=== PATIENT | female | born 1960 | race Hispanic/Latino ===

== ENCOUNTER 2017-03-10 23:47 | Inpatient (IN) | payer BC ==
[~2017-03-10] VITALS: Ht 152.4 cm; Wt 83.5 kg
[~2017-03-10 23:47] MED LIST: ACETAMINOPHEN325 M1 PO; AMOX TR-K CLV1 EAC2 PO; ATORVASTATIN CA20 MG PO; BACTRIM DS TAB1 EACH PO; CEFDINIR300 MG; CEFDINIR300 MG PO; CIPRO500 MG PO; CRANBERRY TABL1 EACH PO; DIFLUCAN100 MG PO; FENOFIBRATE145 MG; FENOFIBRATE145 MG PO; FLAGYL250 MG PO; FLUCONAZOLE100 MG PO; LEVAQUIN500 MG PO; LISINOPRIL; LISINOPRIL2.5 MG PO; LISINOPRIL20 MG PO; MERREM500 MG IV; METFORMIN HCL500 MG PO; TRAZODONE HCL100 MG PO; TYLENOL # 31 EA PO; ULTRAM50 MG PO; VITAMIN B-121000 MC2; VITAMIN B-121000 MCG PO; VITAMIN D350000 UNIT PO
[2017-03-11] VITALS (8 sets, daily range): BP systolic 111–142; BP diastolic 73–76
[2017-03-11] MEDS ORDERED: SODIUM CHLORIDE 0.9% 1000ML 1,000 ML IV STA (00:08)
[2017-03-11] MEDS ORDERED: PANTOPRAZOLE 40 MG 10ML VIAL IV STA (00:08)
[2017-03-11] MEDS ORDERED: ONDANSETRON HCL INJ 2 MG/ML VIAL IV STA (00:08)
[2017-03-11] MEDS ORDERED: MORPHINE SULFATE 2 MG/ML SYR IV STA (00:08)
--- NOTE | 2017-03-11 01:31 | Diagnostic Imaging Report ---
EXAM: CT ABDOMEN AND PELVIS without IV CONTRAST ORDER DATE: 03/11/2017 12:14 AM Time stamp on Exam: 0058 hours INDICATION: Pain in right kidney status post nephrostomy, decreased urine output COMPARISON: CT of the abdomen and pelvis July 24, 2016 TECHNIQUE: The abdomen and pelvis were scanned using a multidetector helical scanner. Coronal and sagittal reformations were obtained. Renal stone protocol performed. IV Contrast: None Oral Contrast: None CTDIvol has been reviewed. It is below the limits set by the Radiation Protocol Committee (RPC). FINDINGS: LOWER THORAX: No consolidations LIVER: No masses BILIARY: Gallstone in an otherwise normal gallbladder. No ductal dilation. SPLEEN: Normal PANCREAS: Normal ADRENALS: Normal RIGHT KIDNEY: Percutaneously nephrostomy tube in place with distal end coiled within the pelvis. Severe hydronephrosis. Mild perinephric fat stranding. LEFT KIDNEY: Mild hydroureteronephrosis of the left kidney, similar to prior exam. Punctate nonobstructing stones in the inferior calyx. GI TRACT: No wall thickening or obstruction. Normal appendix. VESSELS: Minimal atherosclerotic changes of the abdominal aorta without aneurysm. PERITONEUM/RETROPERITONEUM: No free air or fluid LYMPH NODES: No lymphadenopathy REPRODUCTIVE ORGANS: The uterus is small. No adnexal masses. 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 BLADDER: The bladder is small and irregular, possibly due to postradiation changes. SOFT TISSUES: Normal BONES: No suspicious bone lesions. IMPRESSION: Severe right hydronephrosis with percutaneous nephrostomy tube in place, consistent with tube obstruction. Signed by: Dr. Rita Campos M.D. on 03/11/2017 1:28 AM
[2017-03-11 01:35] LABS: BILIRUBIN,URINE NEGATIVE (NEGATIVE); KETONES,URINE NEGATIVE (NEGATIVE); LEUKOCYTE ESTERASE ,URINE 2+ (NEGATIVE); NITRITE,URINE NEGATIVE (NEGATIVE); URINE UROBILINOGEN 0.2 mg/dL (0.2 - 1)
[2017-03-11 01:39] LABS: CLARITY,URINE CLOUDY (CLEAR); COLOR,URINE YELLOW (YELLOW); PROTEIN,URINE DIPSTICK 2+ (NEGATIVE)
[2017-03-11 01:52] LABS: AMORPHOUS SEDIMENT,URINE FEW (FEW); BACTERIA,URINE MODERATE /HPF; CALCIUM OXALATE CRYSTALS,UR RARE (FEW); EPITHELIAL CELLS,URINE RARE /LPF; RBC,URINE >50 /HPF (0-5); WBC,URINE (MAN) >50 /HPF (0-5)
[2017-03-11 02:06] LABS: BASOPHILS # (AUTO) 0.1 (0.0-0.1); BASOPHILS % 0.4 % (0.0-1.0); EOSINOPHILS # (AUTO) 0.1 (0.0-0.4); EOSINOPHILS % 0.4 % (0.0-6.0); HEMATOCRIT 38.4 % (34.2-44.1); HEMOGLOBIN 11.9 g/dL (12.0-16.0); LYMPHOCYTES # (AUTO) 1.8 (1.0-3.2); LYMPHOCYTES % 10.9 % (18.0-39.1); MEAN CORPUSCULAR HEMOGLOBIN 25.7 pg (28-32); MEAN CORPUSCULAR VOLUME 82.9 fL (81-99); MONOCYTES # (AUTO) 0.8 (0.2-0.8); MONOCYTES % 4.8 % (4.4-11.3); NEUTROPHILS # (AUTO) 13.3 (2.1-6.9); PLATELET COUNT 319 x10e3/uL (140-360); RED BLOOD COUNT 4.63 x10e6/uL (3.6-5.1); RED CELL DISTRIBUTION WIDTH 15.4 % (11.7-14.4)
[2017-03-11 02:23] LABS: ALANINE AMINOTRANSFERASE 46 IU/L (0-55); ALBUMIN 3.7 g/dL (3.5-5.0); ALBUMIN/GLOBULIN RATIO 0.7 (0.8-2.0); ALKALINE PHOSPHATASE 105 IU/L (40-150); ANION GAP 14.6 mmol/L (8-16); BLOOD UREA NITROGEN 19 mg/dL (7-26); BUN/CREATININE RATIO 22 (6-25); CALCIUM 9.2 mg/dL (8.4-10.2); CARBON DIOXIDE 20 mmol/L (22-29); CHLORIDE 107 mmol/L (98-107); CREATININE, SERUM 0.88 mg/dL (0.57-1.11); EST GLOMERULAR FILTRATION RATE > 60 ML/MIN (60-); GLUCOSE 166 mg/dL (74-118); MAGNESIUM 1.8 MG/DL (1.3-2.1); POTASSIUM 3.6 mmol/L (3.5-5.1); SODIUM 138 mmol/L (136-145)
[2017-03-11] MEDS ORDERED: MEROPENEM 1GRAM 1 GM in SODIUM CHLORIDE 0.9% 100 ML 100 ML IV SCH (03:00)
[2017-03-11] MEDS ORDERED: MEROPENEM 1 GM VIAL ONE (03:23)
[2017-03-11] MEDS ORDERED: SODIUM CHLORIDE 0.9% 50ML 100 ML ONE (03:24)
[2017-03-11 04:07] LABS: BILIRUBIN,URINE NEGATIVE (NEGATIVE); KETONES,URINE NEGATIVE (NEGATIVE); LEUKOCYTE ESTERASE ,URINE 2+ (NEGATIVE); NITRITE,URINE NEGATIVE (NEGATIVE); URINE UROBILINOGEN 0.2 mg/dL (0.2 - 1)
[2017-03-11 04:08] LABS: CLARITY,URINE CLOUDY (CLEAR); COLOR,URINE YELLOW (YELLOW); PROTEIN,URINE DIPSTICK 2+ (NEGATIVE)
[2017-03-11 04:15] LABS: BACTERIA,URINE MODERATE /HPF; EPITHELIAL CELLS,URINE RARE /LPF; RBC,URINE >50 /HPF (0-5); WBC,URINE (MAN) >50 /HPF (0-5)
[2017-03-11] MEDS: SODIUM CHLORIDE 0.9% 1000ML 1,000 ML IV SCH ×2 (06:35→17:58)
[2017-03-11] MEDS: ONDANSETRON HCL INJ 2 MG/ML VIAL IV PRN ×3 (08:30→19:21)
[2017-03-11] MEDS: MORPHINE SULFATE 2 MG/ML SYR IV PRN ×3 (08:30→19:21)
[2017-03-11] MEDS ORDERED: LIDOCAINE HCL 2% LOCAL 20 ML VIAL ONE (13:14)
[2017-03-11] MEDS ORDERED: SODIUM CHLORIDE 0.9% 500ML 1,000 ML ONE (13:15)
[2017-03-11] MEDS ORDERED: MIDAZOLAM HCL 2 MG/2 ML VIAL ONE (13:27)
[2017-03-11] MEDS ORDERED: FENTANYL CITRATE/PF 100MCG/2 ML INJ ONE (13:27)
[2017-03-11] MEDS ORDERED: IOPAMIDOL 300MG/ML 50ML INFUS..BTL IV ONE (13:32)
--- NOTE | 2017-03-11 14:40 | Diagnostic Imaging Report ---
Nephrostomy catheter evaluation and subsequent exchange, 03/11/2017 Pre-Procedure Diagnosis: Cervical cancer status post radiation therapy with right ureteral stenosis. Post-procedure Diagnosis:Cervical cancer status post radiation therapy with right ureteral stenosis Cream Buyer: Eleni Thomas Insurance Salesperson: None Sedation: Moderate sedation was provided with intravenous fentanyl and Versed. Heart rate, rhythm and oxygen saturation were monitored and real-time by a dedicated interventional radiology nurse under my direct supervision. Blood pressure was monitored in 5 minute increments. 1% lidocaine was used for local anesthesia. Total sedation time: 30 minutes. Radiation Dose <1: cGycm2 (Dose Area Product) Fluoroscopy time:1.2 minutes Estimate blood loss: None Blood administered: None Complications: None Implants/Grafts: 10-Lithuanian right nephrostomy Specimen: None Procedure: Informed consent was obtained and the patient positioned prone in the fluoroscopy suite. A timeout was performed. The indwelling right nephrostomy was prepped and draped in standard fashion. Diagnostic antegrade nephrostogram was performed given the long indwelling time of the previously placed for ostomy. See findings below. Attempts to remove the indwelling 8-Lithuanian nephrostomy over a Bentson and Glidewire were unsuccessful due to heavy encrustation. The catheter was subsequently severed and removed through an 11-Lithuanian peel-away sheath. A Bentson wire was advanced through the peel-away sheath and exchanged for a 10-Lithuanian nephrostomy. Contrast injection confirmed placement within the renal pelvis. At the end of the procedure the catheter was secured to the skin, connected to gravity drainage and a sterile dressing applied. The patient tolerated the procedure well and without immediate complication. Findings: Antegrade nephrostogram demonstrated mild hydronephrosis of the right collecting system and a patent, but heavily encrusted catheter requiring removal via peel away sheath. The distal ureter is narrowed consistent with stricture. Aggressive nephrostogram was not performed given superimposed infection. Impression: Successful right nephrostomy exchange. Distal right ureteral stricture Recommendations: Routine catheter exchange in 2 months given heavy encrustation. This report was generated with voice-recognition technology. Errors in manager operations and procurement can occur. Please interpret accordingly and contact a radiologist if there are any questions regarding the report. Signed by: Dr. Carlos Thomas M.D. on 03/11/2017 2:37 PM
[2017-03-11] MEDS ORDERED: MEROPENEM 1 GM VIAL IV SCH (15:00)
[2017-03-11] MEDS ORDERED: ACETAMINOPHEN/CODEINE 300MG - 30MG TAB PO PRN (16:15)
[2017-03-11] MEDS ORDERED: ACETAMINOPHEN 325 MG TAB PO PRN (16:15)
[2017-03-11] MEDS: MEROPENEM 500 MG VIAL IV SCH (21:25)
[2017-03-12] VITALS (8 sets, daily range): BP systolic 98–138; BP diastolic 63–88
[2017-03-12] MEDS: SODIUM CHLORIDE 0.9% 1000ML 1,000 ML IV SCH ×3 (03:33→22:05)
[2017-03-12] MEDS: MEROPENEM 500 MG VIAL IV SCH ×3 (04:20→21:55)
[2017-03-12 06:18] LABS: BASOPHILS % 0.4 % (0.0-1.0); EOSINOPHILS # (AUTO) 0.1 (0.0-0.4); EOSINOPHILS % 1.2 % (0.0-6.0); HEMATOCRIT 30.7 % (34.2-44.1); HEMOGLOBIN 9.5 g/dL (12.0-16.0); LYMPHOCYTES # (AUTO) 1.9 (1.0-3.2); LYMPHOCYTES % 22.5 % (18.0-39.1); MEAN CORPUSCULAR HEMOGLOBIN 25.7 pg (28-32); MEAN CORPUSCULAR HGB CONC 30.9 g/dL (31-35); MONOCYTES # (AUTO) 0.7 (0.2-0.8); MONOCYTES % 7.7 % (4.4-11.3); NEUTROPHILS # (AUTO) 5.8 (2.1-6.9); PLATELET COUNT 225 x10e3/uL (140-360); RED CELL DISTRIBUTION WIDTH 15.4 % (11.7-14.4)
[2017-03-12] MEDS: ONDANSETRON HCL INJ 2 MG/ML VIAL IV PRN (06:18)
[2017-03-12] MEDS: MORPHINE SULFATE 2 MG/ML SYR IV PRN (06:18)
[2017-03-12 06:40] LABS: ALANINE AMINOTRANSFERASE 28 IU/L (0-55); ALBUMIN 2.8 g/dL (3.5-5.0); ALBUMIN/GLOBULIN RATIO 0.7 (0.8-2.0); ALKALINE PHOSPHATASE 82 IU/L (40-150); ANION GAP 9.5 mmol/L (8-16); BLOOD UREA NITROGEN 11 mg/dL (7-26); BUN/CREATININE RATIO 15 (6-25); CALCIUM 8.3 mg/dL (8.4-10.2); CARBON DIOXIDE 24 mmol/L (22-29); CHLORIDE 111 mmol/L (98-107); CREATININE, SERUM 0.73 mg/dL (0.57-1.11); EST GLOMERULAR FILTRATION RATE > 60 ML/MIN (60-); GLUCOSE 139 mg/dL (74-118); POTASSIUM 3.5 mmol/L (3.5-5.1); SODIUM 141 mmol/L (136-145)
[2017-03-12] MEDS: LISINOPRIL 2.5 MG TAB PO SCH (08:37)
--- NOTE | 2017-03-12 09:36 | Diagnostic Imaging Report ---
Nephrostomy catheter evaluation and subsequent exchange, 03/11/2017 Pre-Procedure Diagnosis: Cervical cancer status post radiation therapy with right ureteral stenosis. Post-procedure Diagnosis:Cervical cancer status post radiation therapy with right ureteral stenosis Optical Instrument Assembly Supervisor: Eleni Thomas Building Insulation Installer: None Sedation: Moderate sedation was provided with intravenous fentanyl and Versed. Heart rate, rhythm and oxygen saturation were monitored and real-time by a dedicated interventional radiology nurse under my direct supervision. Blood pressure was monitored in 5 minute increments. 1% lidocaine was used for local anesthesia. Total sedation time: 30 minutes. Radiation Dose <1: cGycm2 (Dose Area Product) Fluoroscopy time:1.2 minutes Estimate blood loss: None Blood administered: None Complications: None Implants/Grafts: 10-Irish right nephrostomy Specimen: None Procedure: Informed consent was obtained and the patient positioned prone in the fluoroscopy suite. A timeout was performed. The indwelling right nephrostomy was prepped and draped in standard fashion. Diagnostic antegrade nephrostogram was performed given the long indwelling time of the previously placed for ostomy. See findings below. Attempts to remove the indwelling 8-Irish nephrostomy over a Bentson and Glidewire were unsuccessful due to heavy encrustation. The catheter was subsequently severed and removed through an 11-Irish peel-away sheath. A Bentson wire was advanced through the peel-away sheath and exchanged for a 10-Irish nephrostomy. Contrast injection confirmed placement within the renal pelvis. At the end of the procedure the catheter was secured to the skin, connected to gravity drainage and a sterile dressing applied. The patient tolerated the procedure well and without immediate complication. Findings: Antegrade nephrostogram demonstrated mild hydronephrosis of the right collecting system and a patent, but heavily encrusted catheter requiring removal via peel away sheath. The distal ureter is narrowed consistent with stricture. Aggressive nephrostogram was not performed given superimposed infection. Impression: Successful right nephrostomy exchange. Distal right ureteral stricture Recommendations: Routine catheter exchange in 2 months given heavy encrustation. This report was generated with voice-recognition technology. Errors in stogy maker can occur. Please interpret accordingly and contact a radiologist if there are any questions regarding the report. Signed by: Dr. Carlos Thomas M.D. on 03/11/2017 2:37 PM
[2017-03-12] MEDS: FLUCONAZOLE 200 MG/100 ML 100 ML IV SCH (17:37)
[2017-03-13] VITALS (7 sets, daily range): BP systolic 107–161; BP diastolic 67–84
[2017-03-13] MEDS: MEROPENEM 500 MG VIAL IV SCH ×3 (05:46→20:38)
[2017-03-13] MEDS: SODIUM CHLORIDE 0.9% 1000ML 1,000 ML IV SCH ×2 (08:20→17:59)
[2017-03-13] MEDS: LISINOPRIL 2.5 MG TAB PO SCH (08:21)
[2017-03-13] MEDS: FLUCONAZOLE 200 MG/100 ML 100 ML IV SCH (16:41)
[2017-03-13] MEDS: MORPHINE SULFATE 2 MG/ML SYR IV PRN (23:47)
[2017-03-14] VITALS: BP 128/65
[2017-03-14] MEDS: SODIUM CHLORIDE 0.9% 1000ML 1,000 ML IV SCH (03:11)
[2017-03-14 04:00] VITALS: BP 106/57
[2017-03-14] MEDS: MEROPENEM 500 MG VIAL IV SCH (05:15)
[2017-03-14] MEDS ORDERED: CITRATE OF MAGNESIA 300ML BOTTLE PO ONE (06:15)
[2017-03-14] MEDS ORDERED: BISACODYL 5 MG TAB EC PO ONE (06:15)
[2017-03-14 06:44] LABS: BASOPHILS % 0.3 % (0.0-1.0); EOSINOPHILS # (AUTO) 0.1 (0.0-0.4); EOSINOPHILS % 1.6 % (0.0-6.0); MEAN CORPUSCULAR HEMOGLOBIN 25.9 pg (28-32); MEAN CORPUSCULAR HGB CONC 31.3 g/dL (31-35); MEAN CORPUSCULAR VOLUME 82.9 fL (81-99); MONOCYTES # (AUTO) 0.5 (0.2-0.8); MONOCYTES % 7.3 % (4.4-11.3); NEUTROPHILS # (AUTO) 4.3 (2.1-6.9); NEUTROPHILS % 61.4 % (38.7-80.0); PLATELET COUNT 238 x10e3/uL (140-360); RED BLOOD COUNT 3.86 x10e6/uL (3.6-5.1); RED CELL DISTRIBUTION WIDTH 15.3 % (11.7-14.4)
[2017-03-14 07:01] LABS: ANION GAP 10.1 mmol/L (8-16); BLOOD UREA NITROGEN 7 mg/dL (7-26); BUN/CREATININE RATIO 10 (6-25); CALCIUM 8.8 mg/dL (8.4-10.2); CARBON DIOXIDE 27 mmol/L (22-29); CHLORIDE 108 mmol/L (98-107); CREATININE, SERUM 0.68 mg/dL (0.57-1.11); EST GLOMERULAR FILTRATION RATE > 60 ML/MIN (60-); GLUCOSE 127 mg/dL (74-118); POTASSIUM 3.1 mmol/L (3.5-5.1); SODIUM 142 mmol/L (136-145)
[2017-03-14 08:00] VITALS: BP 135/90
[2017-03-14] MEDS: LISINOPRIL 2.5 MG TAB PO SCH (08:32)
[2017-03-14] MEDS ORDERED: POTASSIUM CHLORIDE 20 MEQ TAB CR PO ONE ×2 (10:00→12:00)
[2017-03-14 12:00] VITALS: BP 108/60
[2017-03-14] MEDS ORDERED: POTASSIUM CHLORIDE 10 MEQ TABCR PO ONE (13:30)
[2017-03-14] MEDS ORDERED: DIFLUCAN100 MG (13:50)
== END 2017-03-14 14:25 | disposition home or self-care (01) | DRG 638 ==
LOC: ER 23:47 → ERHOLD 03-11 06:30 → MED/SURG2 03-11 07:23
PROC: 0T25X0Z Change Drainage Device in Kidney, External Approach (ICD-10-PCS; principal; 2017-03-11)
DX: E11.9 Type 2 diabetes mellitus without complications (principal); N10 Acute pyelonephritis; B37.49 Other urogenital candidiasis; D64.9 Anemia, unspecified; Z85.41 Personal history of malignant neoplasm of cervix uteri; Z85.89 Personal history of malignant neoplasm of other organs and systems; N13.6 Pyonephrosis
CPT/HCPCS: 36415; 50435; 74176; 74470; 77001; 80048; 80053; 81001; 83735; 85025; 87086; 99284; J1450; J2001; J2185; J2250; J2270; J2405; J7030; J7040

== ENCOUNTER 2017-04-12 13:23 | Emergency (ER) | payer BC ==
[~2017-04-12] VITALS: Ht 152.4 cm; Wt 83.9 kg
[~2017-04-12 13:23] MED LIST changes: +DIFLUCAN100 MG
--- OUTSIDE RECORDS SUMMARY | 2017-04-12 13:26 | XMS REPORT ---
[facility] Address Unknown Phone Unavailable Care Team Providers Care Discharge Door Operator Name Role Phone VIKY MONTOYA Unavailable Unavailable CARLIE NIX Unavailable Unavailable Problems This patient has no known problems. Allergies, Adverse Reactions, Alerts This patient has no known allergies or adverse reactions. Medications This patient has no known medications. Results Test Description Test Time Test Comments Text Results Atomic Results Result Comments SPECIAL PROCEDURE IN FLOORWORKER LASTING [place] [address] Patient Name: WESLY HUTCHINSON MR #: [id number] : 1960 Age/Sex: 56/F Req #: [id number] Adm Physician: VIKY MONTOYA MD Ordered by: JARET ESPINOSA MD Report #: [id number] Location: MED/SURG2 Room/Bed: [facility] __ Procedure: [id number] IR/SPECIAL PROCEDURE IN FLOORWORKER LASTING Exam Date: Exam Time: REPORT STATUS: Signed Nephrostomy catheter evaluation and subsequent exchange, 03/11/2017 Pre- Procedure Diagnosis: Cervical cancer status post radiation therapy with right ureteral stenosis. Post-procedure Diagnosis:Cervical cancer status post radiation therapy with right ureteral stenosis Stave Grader: Eleni Thomas Casing In Line Setter: None Sedation: Moderate sedation was provided with intravenous fentanyl and Versed. Heart rate, rhythm and oxygen saturation were monitored and real-time by a dedicated interventional radiology nurse under my direct supervision. Blood pressure was monitored in 5 minute increments. 1% lidocaine was used for local anesthesia. Total sedation time: 30 minutes. Radiation Dose <1: cGycm2 (Dose Area Product) Fluoroscopy time:1.2 minutes Estimate blood loss: None Blood administered: None Complications: None Implants/Grafts: 10-Northern Irish right nephrostomy Specimen: None Procedure : Informed consent was obtained and the patient positioned prone in the fluoroscopy suite. A timeout was performed. The indwelling right nephrostomy was prepped and draped in standard fashion. Diagnostic antegrade nephrostogram was performed given the long indwelling time of the previously placed for ostomy. See findings below. Attempts to remove the indwelling 8- Northern Irish nephrostomy over a Bentson and Glidewire were unsuccessful due to heavy encrustation. The catheter was subsequently severed and removed through an 11-Northern Irish peel-away sheath. A Bentson wire was advanced through the peel- away sheath and exchanged for a 10-Northern Irish nephrostomy. Contrast injection confirmed placement within the renal pelvis. At the end of the procedure the catheter was secured to the skin, connected to gravity drainage and a sterile dressing applied. The patient tolerated the procedure well and without immediate complication. Findings: Antegrade nephrostogram demonstrated mild hydronephrosis of the right collecting system and a patent, but heavily encrusted catheter requiring removal via peel away sheath. The distal ureter is narrowed consistent with stricture. Aggressive nephrostogram was not performed given superimposed infection. Impression: Successful right nephrostomy exchange. Distal right ureteral stricture Recommendations: Routine catheter exchange in 2 months given heavy encrustation. This report was generated with voice-recognition technology. Errors in chip frier can occur. Please interpret accordingly and contact a radiologist if there are any questions regarding the report. Signed by: Dr. Carla Thomas M.D. on 03/11/2017 2:37 PM Dictated By: CARLA THOMAS MD 1 Transcribed By: DEYANIRA on 03/12/17931 COPY TO: JARET ESPINOSA MD IR CONSULT [place] [address] Patient Name: WESLY HUTCHINSON MR #: [id number] : 1960 Age/Sex: 56/F Re #: [id number] [facility] Physician: VIKY MONTOYA MD Ordered by: LIZ MUÑIZ MD Report #: [id number] Location: MED/SURG2 Room/Bed: [facility] _ Procedure: [id number] DX/IR CONSULT Exam Date: Exam Time: REPORT STATUS: Signed Nephrostomy catheter evaluation and subsequent exchange, 03/11/2017 Pre-Procedure Diagnosis: Cervical cancer status post radiation therapy with right ureteral stenosis. Post-procedure Diagnosis:Cervical cancer status post radiation therapy with right ureteral stenosis Stave Grader: Eleni Thomas Casing In Line Setter: None Sedation: Moderate sedation was provided with intravenous fentanyl and Versed. Heart rate, rhythm and oxygen saturation were monitored and real-time by a dedicated interventional radiology nurse under my direct supervision. Blood pressure was monitored in 5 minute increments. 1% lidocaine was used for local anesthesia. Total sedation time: 30 minutes. Radiation Dose <1: cGycm2 ( Dose Area Product) Fluoroscopy time:1.2 minutes Estimate blood loss: None Blood administered: None Complications: None Implants/Grafts: 10- Northern Irish right nephrostomy Specimen: None Procedure: Informed consent was obtained and the patient positioned prone in the fluoroscopy suite. A timeout was performed. The indwelling right nephrostomy was prepped and draped in standard fashion. Diagnostic antegrade nephrostogram was performed given the long indwelling time of the previously placed for ostomy. See findings below. Attempts to remove the indwelling 8-Northern Irish nephrostomy over a Bentson and Glidewire were unsuccessful due to heavy encrustation. The catheter was subsequently severed and removed through an 11-Northern Irish peel-away sheath. A Bentson wire was advanced through the peel-away sheath and exchanged for a 10-Northern Irish nephrostomy. Contrast injection confirmed placement within the renal pelvis. At the end of the procedure the catheter was secured to the skin, connected to gravity drainage and a sterile dressing applied. The patient tolerated the procedure well and without immediate complication. Findings: Antegrade nephrostogram demonstrated mild hydronephrosis of the right collecting system and a patent, but heavily encrusted catheter requiring removal via peel away sheath. The distal ureter is narrowed consistent with stricture. Aggressive nephrostogram was not performed given superimposed infection. Impression: Successful right nephrostomy exchange. Distal right ureteral stricture Recommendations: Routine catheter exchange in 2 months given heavy encrustation. This report was generated with voice-recognition technology. Errors in chip frier can occur. Please interpret accordingly and contact a radiologist if there are any questions regarding the report. Signed by: Dr. Carla Thomas M.D. on 03/11/2017 2:37 PM Dictated By: CARLA THOMAS MD 1 Transcribed By: DEYANIRA on 03/12/17931 COPY TO: LIZ MUÑIZ MD CT ABDOMEN/PELVIS WO [place] [address] Patient Name: WESLY HUTCHINSON MR #: [id number] : 1960 Age/Sex: 56/F Req #: [id number] Adm Physician: Ordered by: LIZ MUÑIZ MD Report #: [id number] Location: ER Room/Bed: Procedure: [id number] CT/CT ABDOMEN/PELVIS WO Exam Date: 03/11/17 Exam Time: 0056 REPORT STATUS: Signed EXAM: CT ABDOMEN AND PELVIS without IV CONTRAST ORDER DATE: 03/11/2017 12:14 AM Time stamp on Exam: 0058 hours INDICATION: Pain in right kidney status post nephrostomy, decreased urine output COMPARISON: CT of the abdomen and pelvis July 24, 2016 TECHNIQUE: The abdomen and pelvis were scanned using a multidetector helical scanner. Coronal and sagittal reformations were obtained. Renal stone protocol performed. IV Contrast: None Oral Contrast: None CTDIvol has been reviewed. It is below the limits set by the Radiation Protocol Committee (RPC) . FINDINGS: LOWER THORAX: No consolidations LIVER: No masses BILIARY: Gallstone in an otherwise normal gallbladder. No ductal dilation. SPLEEN: Normal PANCREAS: Normal ADRENALS: Normal RIGHT KIDNEY: Percutaneously nephrostomy tube in place with distal end coiled within the pelvis. Severe hydronephrosis. Mild perinephric fat stranding. LEFT KIDNEY : Mild hydroureteronephrosis of the left kidney, similar to prior exam. Punctate nonobstructing stones in the inferior calyx. GI TRACT: No wall thickening or obstruction. Normal appendix. VESSELS: Minimal atherosclerotic changes of the abdominal aorta without aneurysm. PERITONEUM/ RETROPERITONEUM: No free air or fluid LYMPH NODES: No lymphadenopathy REPRODUCTIVE ORGANS: The uterus is small. No adnexal masses. 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 BLADDER: The bladder is small and irregular, possibly due to postradiation changes. SOFT TISSUES: Normal BONES: No suspicious bone lesions. IMPRESSION: Severe right hydronephrosis with percutaneous nephrostomy tube in place, consistent with tube obstruction. Signed by: Dr. Wesly Campos M.D. on 03/11/2017 1:28 AM Dictated By : WESLY CAMPOS MD 7 Transcribed By: DEYANIRA on 03/11/17127 COPY TO: LIZ MUÑIZ MD SPECIAL PROCEDURE IN FLOORWORKER LASTING [place] [address] Patient Name: WESLY HUTCHINSON MR #: [id number] : 1960 Age/Sex: 56/F Req #: [id number] Adm Physician: CARLIE NIX MD Ordered by: JARET ESPINOSA MD Report #: [id number] Location: MED/SURG3 Room/Bed: [facility] __ Procedure: [id number] IR/SPECIAL PROCEDURE IN FLOORWORKER LASTING Exam Date: Exam Time: REPORT STATUS: Signed Date and Time: 12/31/2016 Procedure: Right percutaneous nephrostomy catheter exchange white sugar syrup operator: Dr. Sullivan Pre-operative diagnosis : Right sided pyelonephritis with indwelling nephrostomy. Post-operative diagnosis: Indwelling nephrostomy Conscious Sedation: Fentanyl 50 mcg. The patient's heart rate and pulse oximetry were continuously monitored by the interventional radiology nurse. Blood pressure was monitored at 5 minute intervals. Additional Medications: Lidocaine 1% for local anesthesia Fluoroscopy time: 1.0 minutes Dose-area Product: 22.7 cGycm2. Contrast used: 20 cc Isovue-300 Estimated blood loss: Minimal Specimens: 10 Northern Irish nephrostomy catheter, discarded Implants: New 10 Northern Irish nephrostomy catheter DISCUSSION: Informed consent for the procedure was obtained from the patient and documented in the medical record after discussion of risks and benefits. The patient was placed in the prone position on the fluoroscopic table. The right flank and existing percutaneous nephrostomy catheter were prepped and draped in standard sterile fashion. 1% lidocaine was infiltrated into the skin and subcutaneous tissues along the catheter for local anesthesia. The retention suture was cut. Dilute contrast material was injected through the catheter, confirming appropriate positioning within the collecting system. The catheter was then severed at the hub and a 0.0 3 5-in. wire was advanced through the catheter under fluoroscopic guidance. The catheter was removed over the wire and a new 10 Northern Irish locking loop percutaneous the prostate was advanced over the wire, which was then removed. The locking loop of the catheter was positioned in the renal pelvis with appropriate positioning confirmed by injection of dilute contrast material. The catheter was flushed with sterile saline and connected to gravity drainage. The catheter was secured to the skin with monofilament nylon suture and a sterile dressing was applied. FINDINGS: Mild right hydronephrosis. IMPRESSION: Successful exchange of a right percutaneous nephrostomy catheter (10 Northern Irish locking loop ) under fluoroscopic guidance. The patient should return to interventional radiology in 8 weeks for routine catheter exchange. Signed by: Dr. Osiel Sullivan M.D. on 01/02/2017 7:09 AM Dictated By: OSIEL SULLIVAN MD 8 Transcribed By: DEYANIRA on 01/02/17708 COPY TO: JARET ESPINOSA MD CHEST XRAY LINE PLACEMENT [place] [address] Patient Name: WESLY HUTCHINSON MR #: [id number] : 1960 Age/Sex: 56/F Req #: [id number] [facility] Physician: CARLIE NIX MD Ordered by: NAMITA EDMONDS MD Report #: [id number] Location: [place] [address] Room/Bed: [facility] Procedure: [id number] DX/CHEST XRAY LINE PLACEMENT Exam Date: 12/29/16 Exam Time: 1440 REPORT STATUS: Signed PROCEDURE: CHEST XRAY LINE PLACEMENT TECHNIQUE: Portable AP chest INDICATION: PICC placement COMPARISON: None. FINDINGS: See conclusion. CONCLUSION: 1. Right PICC terminating in the high SVC. 2. Low lung volume with left lower lobe medial subsegmental atelectasis. 3. Normal heart size and mediastinal contour for technique. 4. Crescentic skeleton. Dictated by: Carla Thomas M.D. on 12/29/2016 at 14:58 Electronically approved by: Carla Thomas M.D. on 12/29/2016 at 14:58 Dictated By: CARLA THOMAS MD 1458 Transcribed By: SUSHANT on 12/29/16 0976 COPY TO: NAMITA EDMONDS MD IR CONSULT [place] [address] Patient Name: WESLY HUTCHINSON MR #: [id number] : 1960 Age/Sex: 56/F Req #: [id number] Adm Physician: CARLIE NIX MD Ordered by: JARET ESPINOSA MD Report #: [id number] Location: MED/SURG2 Room/Bed: [facility] _ Procedure: [id number] DX/IR CONSULT Exam Date: Exam Time: REPORT STATUS: Signed Date and Time: 11/05/2016 Procedure: Replacement of right percutaneous nephrostomy catheter white sugar syrup operator: Dr. Sullivan Assistants: None Pre-operative diagnosis: Dislodged right percutaneous nephrostomy Post-operative diagnosis: Replaced right percutaneous nephrostomy Conscious Sedation: Versed 1 mg and Fentanyl 100 mcg. The patient's heart rate and pulse oximetry were continuously monitored by the interventional radiology nurse. Blood pressure was monitored at 5 minute intervals. Additional Medications: Lidocaine 1 % for local anesthesia Fluoroscopy time: 1.3 minutes Dose-area Product: 499.8 cGycm2. Contrast used: 20 cc Isovue-300 Estimated blood loss: Minimal Specimens: None Implants: 10 Northern Irish locking loop nephrostomy drainage catheter Blood products administered: None Complications: No immediate Condition at completion of procedure: Stable Disposition: Returned to floor unit DISCUSSION: Informed consent was obtained and documented in the medical record. The patient was placed in the prone position on the fluoroscopic table and the right flank was prepped and draped in standard sterile fashion. 1% lidocaine was infiltrated into the skin and subcutaneous tissues for local anesthesia. Then under fluoroscopic guidance , a 5 Northern Irish angled catheter was gently advanced through the existing percutaneous nephrostomy tract and into the renal pelvis, with appropriate positioning confirmed by injection of dilute contrast material. A 0.0 3 5 -in. Amplatz wire was then advanced through the catheter and into the proximal right ureter. The catheter was removed and the tract was dilated. Then a 10 Northern Irish locking loop nephrostomy catheter was advanced over the wire and formed in the renal pelvis. Injection of dilute contrast material confirmed appropriate positioning. The catheter was flushed with sterile saline, secured to the skin with monofilament nylon suture, and connected to gravity drainage. A sterile dressing was applied. Patient tolerated the procedure well without immediate complication. FINDINGS: Moderate right hydronephrosis. IMPRESSION: Successful replacement of a right percutaneous nephrostomy catheter (10 Northern Irish locking loop) through the existing subcutaneous tract. The patient should return to interventional radiology for routine catheter exchange in 3 months. Signed by: Dr. Osiel Sullivan M.D. on 11/12/2016 10:12 AM Dictated By: OSIEL SULLIVAN MD 1012 Transcribed By: DEYANIRA on 11/12/16 1012 COPY TO: JARET ESPINOSA MD SPECIAL PROCEDURE IN FLOORWORKER LASTING [place] [address] Patient Name: WESLY HUTCHINSON MR #: [id number] : 1960 Age/Sex: 56/F Req #: [id number] Adm Physician: CARLIE NIX MD Ordered by: JARET ESPINOSA MD Report #: [id number] Location: MED/SURG2 Room/Bed: [facility] __ Procedure: [id number] IR/SPECIAL PROCEDURE IN FLOORWORKER LASTING Exam Date: Exam Time: REPORT STATUS: Signed Date and Time: 11/05/2016 Procedure: Replacement of right percutaneous nephrostomy catheter white sugar syrup operator: Dr. Sullivan Assistants: None Pre-operative diagnosis: Dislodged right percutaneous nephrostomy Post- operative diagnosis: Replaced right percutaneous nephrostomy Conscious Sedation: Versed 1 mg and Fentanyl 100 mcg. The patient's heart rate and pulse oximetry were continuously monitored by the interventional radiology nurse. Blood pressure was monitored at 5 minute intervals. Additional Medications: Lidocaine 1% for local anesthesia Fluoroscopy time: 1.3 minutes Dose-area Product: 499.8 cGycm2. Contrast used: 20 cc Isovue-300 Estimated blood loss: Minimal Specimens: None Implants: 10 Northern Irish locking loop nephrostomy drainage catheter Blood products administered: None Complications: No immediate Condition at completion of procedure: Stable Disposition: Returned to floor unit DISCUSSION: Informed consent was obtained and documented in the medical record. The patient was placed in the prone position on the fluoroscopic table and the right flank was prepped and draped in standard sterile fashion. 1% lidocaine was infiltrated into the skin and subcutaneous tissues for local anesthesia. Then under fluoroscopic guidance, a 5 Northern Irish angled catheter was gently advanced through the existing percutaneous nephrostomy tract and into the renal pelvis, with appropriate positioning confirmed by injection of dilute contrast material. A 0.0 3 5-in. Amplatz wire was then advanced through the catheter and into the proximal right ureter. The catheter was removed and the tract was dilated. Then a 10 Northern Irish locking loop nephrostomy catheter was advanced over the wire and formed in the renal pelvis. Injection of dilute contrast material confirmed appropriate positioning. The catheter was flushed with sterile saline, secured to the skin with monofilament nylon suture, and connected to gravity drainage. A sterile dressing was applied. Patient tolerated the procedure well without immediate complication. FINDINGS : Moderate right hydronephrosis. IMPRESSION: Successful replacement of a right percutaneous nephrostomy catheter (10 Northern Irish locking loop) through the existing subcutaneous tract. The patient should return to interventional radiology for routine catheter exchange in 3 months. Signed by: Dr. Osiel Sullivan M.D. on 11/12/2016 10:12 AM Dictated By: OSIEL SULLIVAN MD 1012 Transcribed By: DEYANIRA on 11/12/16 1012 COPY TO: JARET ESPINOSA MD [facility] ([facility] [address] [place] [address] Patient Name: WESLY HUTCHINSON MR #: [id number] : 1960 Age/Sex: 56/F Req #: [id number] Adm Physician: Ordered by: ARIA ROCHE MD Report #: [id number] Location: ER Room/Bed: Procedure: [id number] DX/ABDOMEN-1VIEW (KUB) Exam Date: 11/03/16 Exam Time: 1430 REPORT STATUS: Signed PROCEDURE: X-RAY ABDOMEN - KUB COMPARISON: CT of the abdomen and pelvis from 07/24/2016 INDICATIONS: right side abdomen FINDINGS: No dilated loops of bowel or abnormal air-fluid levels patterns. No free air underneath the diaphragm. Visualized portions of the lung bases are clear. A nephrostomy tube is projected over the right hemiabdomen. A 2.5 cm calcified gallstone is unchanged. No definite calcifications are seen overlying the urinary system. Amorphous calcifications in the right hemipelvis are indeterminate. There are surgical clips in the pelvis. Five non-rib bearing lumbar type vertebral bodies identified. CONCLUSION: A nephrostomy tube is projected over the right hemiabdomen. Indeterminate calcifications in the right hemipelvis which could represent ureteral stones, phlebolith, or vascular calcifications. Dictated by: Namita Ornelas M.D. on 11/03/2016 at 14:59 Electronically approved by: Namita Ornelas M.D. on 11/03/2016 at 14:59 Dictated By: NAMITA ORNELAS MD 0736 Transcribed By: SUSHANT on 5109 COPY TO: ARIA ROCHE MD
--- OUTSIDE RECORDS SUMMARY | 2017-04-12 13:27 | XMS REPORT | Continuity of Care Document ---
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 No 03/11/17 10:42am If yes, is advance directive on file with [facility]? No 12/27/16 10:08pm If not on file with [facility] will patient provide a copy? Yes 11/03/16 6:20pm Do you have a Directive to Physician? No 03/11/17 1:01am Do you have a Medical Power of Dental Sales Representative? No 03/11/17 1:01am Do you have an out of hospital Do Not Resuscitate Order? No 03/11/17 1:01am Do you have any special needs we should be aware of? No 03/11/17 1:01am Do you have a support person here with you today? Yes 03/11/17 1:01am Did patient receive Notice of Privacy Practices? Yes 03/11/17 1:01am Did patient receive patient rights and responsibilities? Yes 03/11/17 1:01am Problems Medical Problem Onset Date Status Colitis Unknown Hypokalemia Unknown Pyelonephritis Unknown UTI (urinary tract infection) 10/11/2015 Acute Urinary obstruction Unknown Surgical Problem Onset Date Status Nephrostomy status Unknown Medications Current Home Medications Medication Dose Units Route Directions Days Qty Instructions Start Date Acetaminophen 325 Mg Tablet 650 Mg Oral Every 4 Hours as needed for Pain And Temperature 30 Days 12/31/16 Acetaminophen/Codeine Phosphate (Tylenol # 3*) 1 Ea Tab 2 Ea Oral Every 6 Hours as needed for Pain 30 Days 12/31/16 Fluconazole (Diflucan) 100 Mg Tablet Lisinopril 2.5 Mg Tablet 2.5 Mg Oral Daily 30 Tab 11/06/16 Meropenem (Merrem) 500 Mg Inj 500 Mg Intraven Q8h@05,13,21 12 Days 12/31/16 Past Home Medications Medication Directions Ordered Status Amoxicillin/Potassium Clav (Amox Tr-K Clv 875-125 Mg Tab) 1 Each Tablet, 1 Tab Oral Twice A Day Discontinued Atorvastatin Calcium 20 Mg Tablet, 20 Mg Oral Daily Discontinued Atorvastatin Calcium 20 Mg Tablet, 20 Mg Oral Bedtime Discontinued Atorvastatin Calcium 20 Mg Tablet, 20 Mg Oral Today At 9:00PM Discontinued Cefdinir (Omnicef) 300 Mg Capsule, Twice A Day Discontinued Cefdinir (Omnicef) 300 Mg Capsule, 300 Mg Oral Twice A Day Discontinued Cholecalciferol (Vitamin D3) (Vitamin D3) 50,000 Unit Capsule, 1 Cap Oral [employer] Discontinued Ciprofloxacin Hcl (Cipro) 500 Mg Tablet, 250 Mg Oral Every 12 Hours Discontinued Cranberry/Vit C/L. Sporogenes (Cranberry Tablet) 1 Each Tablet, 1000 Mg Oral Twice A Day Discontinued Cyanocobalamin (Vitamin B-12) 1,000 Mcg Tab, 1000 Mcg Oral Daily Discontinued Cyanocobalamin (Vitamin B-12) 1,000 Mcg Tab, 1000 Mcg Oral Daily Discontinued Cyanocobalamin (Vitamin B-12) (Vitamin B-12) 1,000 Mcg Tab.subl, Discontinued Fenofibrate Nanocrystallized (Fenofibrate) 145 Mg Tablet, Daily Discontinued Fenofibrate Nanocrystallized (Fenofibrate) 145 Mg Tablet, 145 Mg Oral Daily Discontinued Fenofibrate Nanocrystallized (Fenofibrate) 145 Mg Tablet, 1 Tab Oral Daily Discontinued Fluconazole (Diflucan) 100 Mg Tablet, Mg Oral Daily Discontinued Fluconazole 100 Mg Tablet, 200 Mg Oral Daily 09/13/16 Discontinued Fluconazole (Diflucan) 100 Mg Tablet, 100 Mg Oral Daily Discontinued Levofloxacin (Levaquin) 500 Mg Tablet, 500 Mg Oral Daily 09/13/16 Discontinued Lisinopril , 25 Mg Daily Discontinued Lisinopril 2.5 Mg Tablet, 2.5 Mg Oral Daily Discontinued Lisinopril (Prinavil / Zestril) 20 Mg Tablet, 25 Mg Oral Daily Discontinued Metformin Hcl 500 Mg Tablet, 500 Mg Oral Twice A Day 11/06/16 Discontinued Metformin Hcl 500 Mg Tablet, 500 Mg Oral Twice A Day Discontinued Metformin Hcl 500 Mg Tablet, 500 Mg Oral Twice A Day Discontinued Metronidazole (Flagyl) 250 Mg Tablet, 250 Mg Oral Every 6 Hours Discontinued Sulfamethoxazole/Trimethoprim (Bactrim Ds Tablet) 1 Each Tablet, 1 Each Oral Twice A Day 09/13/16 Discontinued Tramadol Hcl (Ultram) 50 Mg Tablet, 50 Mg Oral Twice A Day Discontinued Trazodone Hcl 100 Mg Tablet, 100 Mg Oral Bedtime Discontinued Social History Social History Problem Response Recorded Date/Time Onset Date Status Hx Psychiatric Problems Yes 03/11/2017 10:42am Not Applicable Not Applicable Hx Eating Disorder No 03/11/2017 10:42am Not Applicable Not Applicable Hx Substance Use Disorder No 03/11/2017 10:42am Not Applicable Not Applicable Hx Depression Y - mother in half-way, father is homeless, family issues 03/11/2017 10:42am Not Applicable Not Applicable Hx Alcohol Use No 03/11/2017 10:42am Not Applicable Not Applicable Hx Substance Use Treatment No 03/11/2017 10:42am Not Applicable Not Applicable Hx Physical Abuse No 03/11/2017 10:42am Not Applicable Not Applicable Smoking Status Start Date Stop Date Never Smoker Hospital Discharge Instructions No hospital discharge instruction information available. Plan of Care Discharge Date 03/14/17 2:25pm Disposition HOME, SELF-CARE Instructions/Education Provided Pyelonephritis Prescriptions See Medication Section Additional Instructions/Education CONTINUE DIET AND ACTIVITY TOLERATED FOLLOW UP WITH PRIMARY CARE PROVIDER IN 7-10 DAYS FOLLOW UP WITH UROLOGY INSTRUCTED Functional Status Query Response Date Recorded Assistive Devices None March 11, 2017 10:51am Ambulation Ability Independent March 11, 2017 10:51am Toileting Ability Independent March 13, 2017 6:22pm Allergies, Adverse Reactions, Alerts No known allergies. Immunizations No immunization information available. Vital Signs Acute Vital Signs Vital Response Date/Time Temperature (Fahrenheit) 97.6 degrees F (97.6 - 99.5) 03/14/2017 12:00pm Pulse Pulse Rate (adult) 77 bpm (60 - 90) 03/14/2017 12:00pm Respiratory Rate 19 bpm (12 - 24) 03/14/2017 12:00pm Blood Pressure 108/60 mm Hg 03/14/2017 12:00pm Height 5 ft 0 in 03/11/2017 12:03am Weight 184 lb 03/11/2017 12:03am Body Mass Index 35.9 kg/m^2 03/11/2017 12:03am Results Laboratory Results Test Name Result Units Flags Reference Collection Date/Time Result Date/ Time Comments Urine Mucus MODERATE H RARE 07/24/2016 11:12am 07/24/2016 12:39pm Lipase 23 U/L 8-78 07/24/2016 11:23am 07/24/2016 4:31pm Stool Lactoferrin (LAB) NEGATIVE NEGATIVE 07/26/2016 7:00pm 2016 9:42pm Testing on stool aspirate specimens is outside automobile rental clerk claims since specimen type not validated on this assay. Stool Calprotectin <16 ug/g 0-120 07/26/2016 7:00pm 07/31/2016 12:17pm Concentration Interpretation Follow-Up <16 - 50 ug/g Normal None >50 -120 ug/g Borderline Re-evaluate in 4-6 weeks >120 ug/g Abnormal Repeat as clinically indicated Performed at: [facility] [id number] Berry Picker Machine Operator: Nabil Thomas MD, Phone: [phone] Clostridium Difficile Toxin A & B NEGATIVE NEGATIVE 07/26/2016 7:00pm 07/27/2016 2:20pm Testing on stool aspirate specimens is outside automobile rental clerk claims since specimen type not validated on this assay. Hemoglobin A1c Percent 6.5 % 4.0-7.0 09/09/2016 6:18am 09/09/2016 7: 10am Lactic Acid Level 18.1 MG/DL 4.5-19.8 09/07/2016 6:08pm 09/07/2016 6: 48pm Triglycerides Level 164 MG/DL H 0-149 09/09/2016 6:18am 09/09/2016 7: 19am Cholesterol Level 187 MD/DL 0-199 09/09/2016 6:18am 09/09/2016 7:19am Less than 200 mg/dL Low Risk 201 - 239 mg/dL Borderline Risk 240 mg/dl and greater High Risk LDL Cholesterol 106 MG/DL 60-130 09/09/2016 6:18am 09/09/2016 7:19am HDL Cholesterol 48 MG/DL 40-60 09/09/2016 6:18am 09/09/2016 7:19am Cholesterol/HDL Ratio 3.9 H 3.0-3.6 09/09/2016 6:18am 09/09/2016 7: 19am Activated Partial Thromboplast Time 30.6 seconds 23.8-35.5 11/05/2016 1: 35am 11/05/2016 1:54am Phosphorus Level 3.2 MG/DL 2.3-4.7 11/05/2016 6:00am 11/05/2016 7:09am Iron Level 18 ug/dL L 50-170 11/04/2016 5:55am 11/04/2016 1:31pm Total Iron Binding Capacity 269 ug/dL 261-478 11/04/2016 5:55am 2016 1:31pm Percent Iron Saturation 7 % L 15-50 11/04/2016 5:55am 11/04/2016 1:31pm Transferrin 192 mg/dL 180-382 11/04/2016 5:55am 11/04/2016 1:31pm Ferritin 120.23 ng/mL 4.63-204.00 11/04/2016 5:55am 11/04/2016 1:58pm Creatine Kinase 28 IU/L L 29-168 11/03/2016 11:06am 11/03/2016 12:13pm Creatine Kinase MB 0.20 ng/mL 0.00-5.00 11/03/2016 11:06am 11/03/2016 1 :11pm Troponin I < 0.001 ng/mL 0-0.300 11/03/2016 11:06am 11/03/2016 1:11pm Vitamin B12 Level 254 pg/mL 213-816 11/04/2016 5:55am 11/04/2016 2: 56pm Folate 14.2 ng/mL 7.0-15.4 11/04/2016 5:55am 11/04/2016 2:56pm Prothrombin Time 12.8 seconds 11.9-14.5 12/30/2016 6:20am 12/30/2016 10 :04am Prothromb Time International Ratio 0.92 12/30/2016 6:20am 2016 10:04am Oral Anticoagulant Therapy INR Values: 1. Low Intensity Therapy 1.5 - 2.0 2. Moderate Intensity Therapy 2.0 - 3.0 3. High Intensity Therapy(1) 2.5 - 3.5 4. High Intensity Therapy(2) 3.0 - 4.0 5. Panic Value INR > 5.0 Urine Renal Epithelial Cells FEW H NONE 12/27/2016 3:17pm 12/27/2016 4 :15pm Bedside Glucose 216 mg/dL H 70-120 12/31/2016 10:55am 12/31/2016 8:10pm Meter ID: [id number] Human Chorionic Gonadotropin, Quant 1.95 mIU/mL 0-10 12/31/2016 6:33am 12/31/2016 8:13am White Blood Count 7.03 x10e3/uL 4.8-10.8 03/14/2017 6:03/14/2017 6 :45am Red Blood Count 3.86 x10e6/uL 3.6-5.1 03/14/2017 6:03/14/2017 6: 45am Hemoglobin 10.0 g/dL L 12.0-16.0 03/14/2017 6:03/14/2017 6:45am Hematocrit 32.0 % L 34.2-44.1 03/14/2017 6:03/14/2017 6:45am Mean Corpuscular Volume 82.9 fL 81-99 03/14/2017 6:03/14/2017 6: 45am Mean Corpuscular Hemoglobin 25.9 pg L 28-32 03/14/2017 6:2017 6:45am Mean Corpuscular Hemoglobin Concent 31.3 g/dL 31-35 03/14/2017 6:03/14/2017 6:45am Red Cell Distribution Width 15.3 % H 11.7-14.4 03/14/2017 6:2017 6:45am Platelet Count 238 x10e3/uL 140-360 03/14/2017 6:03/14/2017 6: 45am Neutrophils (%) (Auto) 61.4 % 38.7-80.0 03/14/2017 6:03/14/2017 6: 45am Lymphocytes (%) (Auto) 29.0 % 18.0-39.1 03/14/2017 6:03/14/2017 6: 45am Monocytes (%) (Auto) 7.3 % 4.4-11.3 03/14/2017 6:03/14/2017 6: 45am Eosinophils (%) (Auto) 1.6 % 0.0-6.0 03/14/2017 6:03/14/2017 6: 45am Basophils (%) (Auto) 0.3 % 0.0-1.0 03/14/2017 6:03/14/2017 6:45am IM GRANULOCYTES % 0.4 % 0.0-1.0 03/14/2017 6:03/14/2017 6:45am Neutrophils # (Auto) 4.3 2.1-6.9 03/14/2017 6:03/14/2017 6:45am Lymphocytes # (Auto) 2.0 1.0-3.2 03/14/2017 6:03/14/2017 6:45am Monocytes # (Auto) 0.5 0.2-0.8 03/14/2017 6:03/14/2017 6:45am Eosinophils # (Auto) 0.1 0.0-0.4 03/14/2017 6:03/14/2017 6:45am Basophils # (Auto) 0.0 0.0-0.1 03/14/2017 6:03/14/2017 6:45am Absolute Immature Granulocyte (auto 0.03 x10e3/uL 0-0.1 03/14/2017 6: 03/14/2017 6:45am Urine Color YELLOW YELLOW 03/11/2017 4:00am 03/11/2017 4:08am Urine Clarity CLOUDY H CLEAR 03/11/2017 4:00am 03/11/2017 4:08am Urine Specific [place] 1.010 1.010-1.025 03/11/2017 4:00am 2017 4:08am Urine pH 6 5 - 7 03/11/2017 4:00am 03/11/2017 4:08am Urine Leukocyte Esterase 2+ H NEGATIVE 03/11/2017 4:00am 03/11/2017 4: 08am Urine Nitrite NEGATIVE NEGATIVE 03/11/2017 4:00am 03/11/2017 4:08am Urine Protein 2+ H NEGATIVE 03/11/2017 4:00am 03/11/2017 4:08am Urine Glucose (UA) NEGATIVE NEGATIVE 03/11/2017 4:00am 03/11/2017 4: 08am Urine Ketones NEGATIVE NEGATIVE 03/11/2017 4:00am 03/11/2017 4:08am Urine Urobilinogen 0.2 mg/dL 0.2 - 1 03/11/2017 4:00am 03/11/2017 4: 08am Urine Bilirubin NEGATIVE NEGATIVE 03/11/2017 4:00am 03/11/2017 4: 08am Urine Blood 4+ H NEGATIVE 03/11/2017 4:00am 03/11/2017 4:08am Urine WBC >50 /HPF H 0-5 03/11/2017 4:00am 03/11/2017 4:16am Urine RBC >50 /HPF H 0-5 03/11/2017 4:00am 03/11/2017 4:16am Urine Bacteria MODERATE /HPF H NONE 03/11/2017 4:00am 03/11/2017 4:16am Urine Epithelial Cells RARE /LPF NONE 03/11/2017 4:00am 03/11/2017 4: 16am Urine Calcium Oxalate Crystals RARE FEW 03/11/2017 1:00am 03/11/2017 1:52am Urine Amorphous Sediment FEW FEW 03/11/2017 1:00am 03/11/2017 1:52am Sodium Level 142 mmol/L 136-145 03/14/2017 6:26am 03/14/2017 7:24am Potassium Level 3.1 mmol/L L 3.5-5.1 03/14/2017 6:03/14/2017 7: 24am Chloride Level 108 mmol/L H 98-107 03/14/2017 6:03/14/2017 7:24am Carbon Dioxide Level 27 mmol/L 22-29 03/14/2017 6:03/14/2017 7: 24am Anion Gap 10.1 mmol/L 8-16 03/14/2017 6:03/14/2017 7:24am Blood Urea Nitrogen 7 mg/dL 7-03/14/2017 6:03/14/2017 7:24am Creatinine 0.68 mg/dL 0.57-1.11 03/14/2017 6:03/14/2017 7:24am BUN/Creatinine Ratio 10 603/14/2017 6:03/14/2017 7:24am Estimat Glomerular Filtration Rate > 60 ML/MIN 60- 03/14/2017 6: 7:24am Ranges were taken from the National Kidney Disease Education Program and the National Kid[employer] Foundation literature. Reference ranges: 60 or greater: Normal 16-59 (for 3 consecutive months): Chronic kidney disease 15 or less: Kidney failure Glucose Level 127 mg/dL H 74-118 03/14/2017 6:03/14/2017 7:24am Calcium Level 8.8 mg/dL 8.4-10.2 03/14/2017 6:03/14/2017 7:24am Magnesium Level 1.8 MG/DL 1.3-2.1 03/11/2017 1:45am 03/11/2017 2:24am Total Bilirubin 0.6 mg/dL 0.2-1.2 03/12/2017 6:03/12/2017 6:49am Aspartate Amino Transf (AST/SGOT) 18 IU/L 5-34 03/12/2017 6:2017 6:49am Alanine Aminotransferase (ALT/SGPT) 28 IU/L 0-55 03/12/2017 6:02/2017 6:49am Total Protein 6.9 g/dL # 6.5-8.1 03/12/2017 6:03/12/2017 6:49am Albumin 2.8 g/dL L 3.5-5.0 03/12/2017 6:00am 03/12/2017 6:49am Globulin 4.1 g/dL H 2.3-3.5 03/12/2017 6:00am 03/12/2017 6:49am Albumin/Globulin Ratio 0.7 L 0.8-2.0 03/12/2017 6:00am 03/12/2017 6: 49am Alkaline Phosphatase 82 IU/L 40-150 03/12/2017 6:00am 03/12/2017 6: 49am Microbiology Results Procedure Source Organism/Result Collection Date/Time Result Date/Time Result Status Urine Culture Urine,Catheterized ESCHERICHIA COLI-ESBL 09/07/2016 4:26pm 09/09/2016 4:14pm Final Urine Culture Urine,Echeverria [place] VALERIO ALBICANS 09/07/2016 6:38pm 2016 3:16pm Final ESCHERICHIA COLI-ESBL 09/07/2016 6:38pm 09/11/2016 3:16pm Final Urine Culture Urine,Clean Catch VALERIO ALBICANS 11/03/2016 11:06am 2016 6:03am Final Urine Culture Urine,Random KLEBSIELLA PNEUMONIAE-ESBL 12/27/2016 11:54am 12/29/2016 7:41am Final Blood Culture Blood NO GROWTH AFTER 5 DAYS, FINAL REPORT 12/28/2016 5:25pm 01/02/2017 5:29pm Final Urine Culture Urine,Kidney YEAST SPECIES 03/12/2017 8:30am 03/14/2017 6: 48am Preliminary Procedures Procedure Status Date Provider(s) EXCHANGE NEPHROSTOMY CATH Completed 06/11/16 FIGUEROA ANGELO MD CYSTOSCOPY AND TREATMENT Completed 06/11/16 JARET ESPINOSA MD CYSTO W/URETER STRICTURE [place] Completed 06/11/16 JARET ESPINOSA MD EXCISION OF RECTUM, ENDO, DIAGN Completed 07/26/16 BEVERLY MONTOYA MD CHANGE DRAINAGE DEVICE IN KIDNEY, EXTERNAL APPROACH Completed 07/25/16 JARET ESPINOSA MD EXCISION OF ILEUM, ENDO, DIAGN Completed 07/26/16 BEVERLY MONTOYA MD EXCISION OF LARGE INTESTINE, ENDO, DIAGN Completed 07/26/16 BEVERLY MONTOYA MD DILATION OF BILATERAL URETERS WITH INTRALUMINAL DEVICE, ENDO Completed JARET ESPINOSA MD REMOVAL OF INTRALUM DEV FROM URETER, PERC ENDO APPROACH Completed 09/12/16 JARET ESPINOSA MD FLUOROSCOPY KIDNEY, URETER, BLADDER, L W L OSM CONTRAST Completed 09/12/16 JARET ESPINOSA MD FLUOROSCOPY KIDNEY, URETER, BLADDER, R W L OSM CONTRAST Completed 09/12/16 JARET ESPINOSA MD INSERTION OF INFUSION DEV INTO SUP VENA CAVA, PERC APPROACH Completed JARET ESPINOSA MD CHANGE DRAINAGE DEVICE IN BLADDER, EXTERNAL APPROACH Completed 09/13/16 WHIGHAM,BRENDON DO CHANGE DRAINAGE DEVICE IN BLADDER, EXTERNAL APPROACH Completed 09/14/16 WHIGHAM,BRENDON DO INSERTION OF INFUSION DEV INTO R BASILIC VEIN, PERC APPROACH Completed ASHVIN MARTI MD CHANGE DRAINAGE DEVICE IN KIDNEY, EXTERNAL APPROACH Completed 11/05/16 JARET ESPINOSA MD INSERTION OF INFUSION DEV INTO SUP VENA CAVA, PERC APPROACH Completed CARLA THOMAS MD DRAINAGE OF RIGHT KIDNEY PELVIS, PERCUTANEOUS APPROACH Completed 12/29/16 OSIEL SULLIVAN MD Computed tomography of abdomen and pelvis with contrast Active 07/24/[address] of abdomen and pelvis without contrast Active 03/11/17 LIZ MUÑIZ MD Encounters Encounter Location Arrival/Admit Date Discharge/Depart Date Attending Provider Discharged Inpatient [facility] 03/11/17 6:30am 03/14/17 2:25pm VIKY MONTOYA MD Discharged Inpatient [facility] 12/27/16 8:18pm 12/31/16 2:28pm CARLIE NIX MD Discharged Inpatient [facility] 11/06/16 7:17am 11/06/16 5:05pm CARLIE NIX MD Discharged Inpatient [facility] 09/07/16 6:56pm 09/15/16 5:00pm ASHVIN MARTI MD Discharged Inpatient [facility] 07/24/16 3:58pm 07/29/16 12:09pm VINNY RENDON MD Registered Surgical Day Care [facility] 06/11/16 8:01am JARET ESPINOSA MD
[2017-04-12] MEDS ORDERED: CEFTRIAXONE SOD 1 GM VIAL IV ONE (13:45)
[2017-04-12 14:56] LABS: BASOPHILS % 0.3 % (0.0-1.0); EOSINOPHILS # (AUTO) 0.1 (0.0-0.4); EOSINOPHILS % 0.5 % (0.0-6.0); HEMATOCRIT 34.9 % (34.2-44.1); HEMOGLOBIN 11.2 g/dL (12.0-16.0); LYMPHOCYTES # (AUTO) 1.9 (1.0-3.2); LYMPHOCYTES % 16.7 % (18.0-39.1); MEAN CORPUSCULAR HEMOGLOBIN 25.5 pg (28-32); MEAN CORPUSCULAR HGB CONC 32.1 g/dL (31-35); MEAN CORPUSCULAR VOLUME 79.5 fL (81-99); MONOCYTES % 8.8 % (4.4-11.3); NEUTROPHILS # (AUTO) 8.2 (2.1-6.9); NEUTROPHILS % 73.3 % (38.7-80.0); PLATELET COUNT 249 x10e3/uL (140-360); RED BLOOD COUNT 4.39 x10e6/uL (3.6-5.1); RED CELL DISTRIBUTION WIDTH 15.2 % (11.7-14.4)
[2017-04-12] MEDS ORDERED: ONDANSETRON HCL INJ 2 MG/ML VIAL IV STA (15:14)
[2017-04-12 15:20] LABS: BILIRUBIN,URINE 1+ (NEGATIVE); CLARITY,URINE CLOUDY (CLEAR); COLOR,URINE YELLOW (YELLOW); KETONES,URINE NEGATIVE (NEGATIVE); LEUKOCYTE ESTERASE ,URINE 2+ (NEGATIVE); NITRITE,URINE NEGATIVE (NEGATIVE); URINE UROBILINOGEN 1 mg/dL (0.2 - 1)
[2017-04-12] MEDS ORDERED: MORPHINE SULFATE 2 MG/ML SYR IV NR (15:20)
[2017-04-12 15:21] LABS: PROTEIN,URINE DIPSTICK 2+ (NEGATIVE)
[2017-04-12 15:23] LABS: PREGNANCY TEST, URINE NEGATIVE (NEGATIVE)
[2017-04-12 15:30] LABS: ALBUMIN 3.3 g/dL (3.5-5.0); ALBUMIN/GLOBULIN RATIO 0.6 (0.8-2.0); ANION GAP 16.3 mmol/L (8-16); CALCIUM 9.3 mg/dL (8.4-10.2); CREATININE, SERUM 0.99 mg/dL (0.57-1.11); POTASSIUM 3.3 mmol/L (3.5-5.1)
[2017-04-12 15:41] LABS: BACTERIA,URINE MANY /HPF; EPITHELIAL CELLS,URINE FEW /LPF; WBC,URINE (MAN) >50 /HPF (0-5)
--- NOTE | 2017-04-12 16:06 | Diagnostic Imaging Report ---
EXAM: CT Abdomen and Pelvis WITHOUT contrast INDICATION: Abdominal pain, concerning for renal stone COMPARISON: CT abdomen and pelvis from 03/11/2017 fluoroscopy for nephrostomy tube change 03/11/2017 TECHNIQUE: Abdomen and pelvis were scanned utilizing a multidetector helical scanner from the lung base to the pubic symphysis without administration of IV contrast. Absence of intravenous contrast decreases sensitivity for detection of focal lesions and vascular pathology. Coronal and sagittal reformations were obtained. Renal stone protocol was performed. IV CONTRAST: None. ORAL CONTRAST: Water RADIATION DOSE: Total DLP: 550.3 mGy*cm Estimated effective dose: (DLP x 0.015 x size factor) mSv COMPLICATIONS: None FINDINGS: LINES and TUBES: Right percutaneous nephrostomy tube. LOWER THORAX: 2 mm right lower lobe calcified granuloma. HEPATOBILIARY: No focal hepatic lesions. No biliary ductal dilation. GALLBLADDER: Unchanged peripherally calcified 2 cm gallstone and a few additional 2 to 3 mm gallstones. No wall thickening. SPLEEN: No splenomegaly. PANCREAS: No focal masses or ductal dilatation. ADRENALS: No adrenal nodules KIDNEYS/URETERS: Interval resolution of the right hydronephrosis after percutaneous nephrostomy tube exchange. Few other foci in the right kidney likely due to procedure. Previously noted right perinephric fat stranding haved resolved. No cystic or solid mass lesions. Multiple up to 5 mm left renal stones remain unchanged. Minimal dilatation of the renal pelves, otherwise, no left hydronephrosis. Unchanged mild left hydroureter. GI TRACT: No abnormal distention, wall thickening, or evidence of bowel obstruction. Appendix is normal. REPRODUCTIVE ORGANS: The uterus is small. No adnexal masses. 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 BLADDER: The bladder is small and irregular, possibly due to postradiation changes. LYMPH NODES: No lymphadenopathy. VESSELS: Unremarkable. PERITONEUM / RETROPERITONEUM: No free air or fluid. BONES: Unremarkable. SOFT TISSUES: Unremarkable. IMPRESSION: 1. Interval resolution of the right hydronephrosis after but without new nephrostomy tube exchange. 2. Stable left nephrolithiasis. 3. No acute abnormalities in the abdomen and pelvis. Signed by: Dr. Marisela Belle M.D. on 04/12/2017 4:03 PM
[2017-04-12] MEDS ORDERED: ONDANSETRON HCL INJ 2 MG/ML VIAL IV NR (17:00)
[2017-04-12 17:09] VITALS: BP 131/76
== END 2017-04-12 17:28 | disposition home or self-care (01) ==
LOC: ER 13:23
DX: R10.11 Right upper quadrant pain (principal); R10.13 Epigastric pain; R11.2 Nausea with vomiting, unspecified; N39.0 Urinary tract infection, site not specified
CPT/HCPCS: 36415; 74176; 80053; 81001; 81025; 85025; 99284; J0696; J2270; J2405

== ENCOUNTER → 2017-07-01 | Day surgery (SDC) | payer BC ==
[~2017-07-01] VITALS: Ht 152.4 cm; Wt 83.9 kg
--- OUTSIDE RECORDS SUMMARY | 2017-07-01 11:10 | XMS REPORT | Continuity of Care Document ---
Author Author [facility] Organization [facility] Address [address] [place] [address] Phone Unavailable Care Team Providers Care Mortgage Professional Name Role Phone KEVIN RICKS M.D. PCP Insurance Providers Guarantor Wesly Heredia Address [address] [place] [address] Email [email or web address] Payer Blue Cross Exchange Policy Number [id number] Subscriber's Name Wesly Heredia Relationship 18 Self / Same As Patient Group Number [id number] Group Name UNEMPLOYED Effective Date 17 Advance Directives Directive Response Recorded Date/Time Does the patient have an advance directive? No 03/11/17 10:42am If yes, is advance directive on file with [facility]? No 12/27/16 10:08pm If not on file with [facility] will patient provide a copy? Yes 11/03/16 6:20pm Do you have a Directive to Physician? No 04/12/17 2:44pm Do you have a Medical Power of Career Technical Counselor? No 04/12/17 2:44pm Do you have an out of hospital Do Not Resuscitate Order? No 04/12/17 2:44pm Do you have any special needs we should be aware of? No 04/12/17 2:44pm Do you have a support person here with you today? Yes 04/12/17 2:44pm Did patient receive Notice of Privacy Practices? Yes 04/12/17 2:44pm Did patient receive patient rights and responsibilities? Yes 04/12/17 2:44pm Problems Medical Problem Onset Date Status Colitis [...] D3) 50,000 Unit Capsule, 1 Cap Oral Welder Gas Automatic Discontinued Ciprofloxacin Hcl (Cipro) 500 Mg Tablet, [...] Applicable Hx Depression Y - mother in care home, father is homeless, family issues 03/11/2017 10:42am [...] information available. Plan of Care Discharge Date 04/12/17 5:28pm Disposition HOME, SELF-CARE Condition at Discharge Stable Instructions/Education Provided Urinary Tract Infection - Women Forms Provided Work/School Excuse Prescriptions See Medication Section Referrals KEVIN RICKS M.D. Address: [address] [place] [id number] JARET ESPINOSA MD Address: formerly [facility] [place]el [address] Additional Instructions/Education 1. increase oral fluids 2. follow up with Dr lott in 1-2 days without fail 3. return to ed as needed Functional Status No functional status information available. Allergies, Adverse Reactions, Alerts No known allergies. Immunizations No immunization information available. Vital Signs Acute Vital Signs Vital Response Date/Time Temperature (Fahrenheit) 97.6 degrees F (97.6 - 99.5) 03/14/2017 12:00pm Pulse Pulse Rate (adult) 90 bpm (60 - 90) 04/12/2017 5:09pm Respiratory Rate 18 bpm (12 - 24) 04/12/2017 5:09pm Blood Pressure 131/76 mm Hg 04/12/2017 5:09pm Height 5 ft 0 in 04/12/2017 1:27pm Weight 185 lb 04/12/2017 1:27pm Body Mass Index 36.1 kg/m^2 04/12/2017 1:27pm Results Laboratory Results Test Name Result Units Flags Reference Collection Date/Time Result Date/ Time Comments Urine Mucus MODERATE H RARE 07/24/2016 11:12am 07/24/2016 12:39pm Lipase 23 U/L 8-78 07/24/2016 11:23am 07/24/2016 4:31pm Stool Lactoferrin (LAB) NEGATIVE NEGATIVE 07/26/2016 7:00pm 2016 9:42pm Testing on stool aspirate specimens is outside product development actuary claims since specimen type not validated on this assay. Stool Calprotectin <16 ug/g 0-120 07/26/2016 7:00pm 07/31/2016 12:17pm Concentration Interpretation Follow-Up <16 - 50 ug/g Normal None >50 -120 ug/g Borderline Re-evaluate in 4-6 weeks >120 ug/g Abnormal Repeat as clinically indicated Performed at: [address] [id number] Radioactivity Technician: Nabil Thomas MD, Phone: [phone] Clostridium Difficile Toxin A & B NEGATIVE NEGATIVE 07/26/2016 7:00pm 07/27/2016 2:20pm Testing on stool aspirate specimens is outside product development actuary claims since specimen type not validated on [...] 70-120 12/31/2016 10:55am 12/31/2016 8:10pm Meter ID: [id number] Human Chorionic Gonadotropin, Quant 1.95 mIU/mL 0-10 12/31/2016 6:33am 12/31/2016 8:13am Urine Calcium Oxalate Crystals RARE FEW 03/11/2017 1:00am 03/11/2017 1:52am Urine Amorphous Sediment FEW FEW 03/11/2017 1:00am 03/11/2017 1:52am Magnesium Level 1.8 MG/DL 1.3-2.1 03/11/2017 1:45am 03/11/2017 2:24am White Blood Count 11.11 x10e3/uL H 4.8-10.8 04/12/2017 2:28pm 2017 2:58pm Red Blood Count 4.39 x10e6/uL 3.6-5.1 04/12/2017 2:28pm 04/12/2017 2: 58pm Hemoglobin 11.2 g/dL L 12.0-16.0 04/12/2017 2:2804/12/2017 2:58pm Hematocrit 34.9 % 34.2-44.1 04/12/2017 2:2804/12/2017 2:58pm Mean Corpuscular Volume 79.5 fL L 81-99 04/12/2017 2:04/12/2017 2: 58pm Mean Corpuscular Hemoglobin 25.5 pg L 28-32 04/12/2017 2:282017 2:58pm Mean Corpuscular Hemoglobin Concent 32.1 g/dL 31-35 04/12/2017 2:04/12/2017 2:58pm Red Cell Distribution Width 15.2 % H 11.7-14.4 04/12/2017 2:282017 2:58pm Platelet Count 249 x10e3/uL 140-360 04/12/2017 2:2804/12/2017 2: 58pm Neutrophils (%) (Auto) 73.3 % 38.7-80.0 04/12/2017 2:2804/12/2017 2: 58pm Lymphocytes (%) (Auto) 16.7 % L 18.0-39.1 04/12/2017 2:28pm 04/12/2017 2 :58pm Monocytes (%) (Auto) 8.8 % 4.4-11.3 04/12/2017 2:28pm 04/12/2017 2: 58pm Eosinophils (%) (Auto) 0.5 % 0.0-6.0 04/12/2017 2:04/12/2017 2: 58pm Basophils (%) (Auto) 0.3 % 0.0-1.0 04/12/2017 2:04/12/2017 2:58pm IM GRANULOCYTES % 0.4 % 0.0-1.0 04/12/2017 2:28pm 04/12/2017 2:58pm Neutrophils # (Auto) 8.2 H 2.1-6.9 04/12/2017 2:pm 04/12/2017 2: 58pm Lymphocytes # (Auto) 1.9 1.0-3.2 04/12/2017 2:pm 04/12/2017 2:58pm Monocytes # (Auto) 1.0 H 0.2-0.8 04/12/2017 2:28pm 04/12/2017 2:58pm Eosinophils # (Auto) 0.1 0.0-0.4 04/12/2017 2:28pm 04/12/2017 2:58pm Basophils # (Auto) 0.0 0.0-0.1 04/12/2017 2:28pm 04/12/2017 2:58pm Absolute Immature Granulocyte (auto 0.04 x10e3/uL 0-0.1 04/12/2017 2: 28pm 04/12/2017 2:58pm Urine Color YELLOW YELLOW 04/12/2017 2:28pm 04/12/2017 3:21pm Urine Clarity CLOUDY H CLEAR 04/12/2017 2:28pm 04/12/2017 3:21pm Urine Specific [place] 1.010 1.010-1.025 04/12/2017 2:28pm 2017 3:21pm Urine pH 6 5 - 7 04/12/2017 2:28pm 04/12/2017 3:21pm Urine Leukocyte Esterase 2+ H NEGATIVE 04/12/2017 2:28pm 04/12/2017 3: 21pm Urine Nitrite NEGATIVE NEGATIVE 04/12/2017 2:28pm 04/12/2017 3:21pm Urine Protein 2+ H NEGATIVE 04/12/2017 2:28pm 04/12/2017 3:21pm Urine Glucose (UA) NEGATIVE NEGATIVE 04/12/2017 2:28pm 04/12/2017 3: 21pm Urine Ketones NEGATIVE NEGATIVE 04/12/2017 2:28pm 04/12/2017 3:21pm Urine Urobilinogen 1 mg/dL 0.2 - 1 04/12/2017 2:28pm 04/12/2017 3:21pm Urine Bilirubin 1+ H NEGATIVE 04/12/2017 2:28pm 04/12/2017 3:21pm Urine Blood 4+ H NEGATIVE 04/12/2017 2:28pm 04/12/2017 3:21pm Urine WBC >50 /HPF H 0-5 04/12/2017 2:28pm 04/12/2017 3:41pm Urine RBC 11-20 /HPF H 0-5 04/12/2017 2:28pm 04/12/2017 3:41pm Urine Bacteria MANY /HPF H NONE 04/12/2017 2:28pm 04/12/2017 3:41pm Urine Epithelial Cells FEW /LPF NONE 04/12/2017 2:28pm 04/12/2017 3: 41pm Urine Test NEGATIVE NEGATIVE 04/12/2017 2:28pm 04/12/2017 3 :23pm Sodium Level 137 mmol/L 136-145 04/12/2017 3:05pm 04/12/2017 3:33pm Potassium Level 3.3 mmol/L L 3.5-5.1 04/12/2017 3:05pm 04/12/2017 3: 33pm Chloride Level 99 mmol/L 98-107 04/12/2017 3:05pm 04/12/2017 3:33pm Carbon Dioxide Level 25 mmol/L 22-29 04/12/2017 3:05pm 04/12/2017 3: 33pm Anion Gap 16.3 mmol/L H 8-16 04/12/2017 3:05pm 04/12/2017 3:33pm Blood Urea Nitrogen 17 mg/dL 7-26 04/12/2017 3:05pm 04/12/2017 3:33pm Creatinine 0.99 mg/dL 0.57-1.11 04/12/2017 3:05pm 04/12/2017 3:33pm BUN/Creatinine Ratio 17 6-25 04/12/2017 3:05pm 04/12/2017 3:33pm Estimat Glomerular Filtration Rate 58 ML/MIN L 60- 04/12/2017 3:05pm 05/2017 3:33pm Ranges were taken from the National Kidney Disease Education Program and the National Kidney Foundation literature. Reference ranges: 60 or greater: Normal 16-59 (for 3 consecutive months): Chronic kidney disease 15 or less: Kidney failure Glucose Level 138 mg/dL H 74-118 04/12/2017 3:05pm 04/12/2017 3:33pm Calcium Level 9.3 mg/dL 8.4-10.2 04/12/2017 3:05pm 04/12/2017 3:33pm Total Bilirubin 0.8 mg/dL 0.2-1.2 04/12/2017 3:05pm 04/12/2017 3:33pm Aspartate Amino Transf (AST/SGOT) 23 IU/L 5-34 04/12/2017 3:05pm 2017 3:33pm Alanine Aminotransferase (ALT/SGPT) 33 IU/L 0-55 04/12/2017 3:05pm 05/2017 3:33pm Total Protein 8.5 g/dL H 6.5-8.1 04/12/2017 3:05pm 04/12/2017 3:33pm Albumin 3.3 g/dL L 3.5-5.0 04/12/2017 3:05pm 04/12/2017 3:33pm Globulin 5.2 g/dL H 2.3-3.5 04/12/2017 3:05pm 04/12/2017 3:33pm Albumin/Globulin Ratio 0.6 L 0.8-2.0 04/12/2017 3:05pm 04/12/2017 3: 33pm Alkaline Phosphatase 92 IU/L 40-150 04/12/2017 3:05pm 04/12/2017 3: 33pm Microbiology Results Procedure Source Organism/Result Collection Date/Time Result Date/Time Result Status Urine Culture Urine,Catheterized ESCHERICHIA COLI-ESBL 09/07/2016 4:26pm 09/09/2016 4:14pm Final Urine Culture Urine,Echeverria [place] VALERIO ALBICANS 09/07/2016 6:38pm 2016 3:16pm Final ESCHERICHIA COLI-ESBL 09/07/2016 6:38pm 09/11/2016 3:16pm Final Urine Culture Urine,Random KLEBSIELLA PNEUMONIAE-ESBL 12/27/2016 11:54am 12/29/2016 7:41am Final Blood Culture Blood NO GROWTH AFTER 5 DAYS, FINAL REPORT 12/28/2016 5:25pm 01/02/2017 5:29pm Final Urine Culture Urine,Clean Catch VALERIO ALBICANS 03/11/2017 1:00am 2017 6:13am Final Urine Culture Urine,Kidney VALERIO ALBICANS 03/12/2017 8:30am 03/15/2017 6 :21am Final Procedures Procedure Status Date Provider(s) EXCISION OF RECTUM, ENDO, DIAGN Completed 07/26/16 [...] pelvis with contrast Active 07/24/16 ANNETTE BREWER STAVE JOINTER CT of abdomen and pelvis without contrast Active 03/11/17 LIZ MUÑIZ MD CT of abdomen and pelvis without contrast Active 04/12/17 ASHA BARDALES STAVE JOINTER Encounters Encounter Location Arrival/Admit Date Discharge/Depart Date Attending Provider [facility]ed [facility] 04/12/17 1:23pm 5:28pm JUDAH FRAGOSO MD Discharged Inpatient [facility] 03/11/17 6:30am 03/14/17 2:25pm VIKY MONTOYA MD Discharged Inpatient [facility] 12/27/16 8:18pm 12/31/16 2:28pm CARLIE NIX MD Discharged Inpatient [facility] 11/06/16 7:17am 11/06/16 5:05pm CARLIE NIX MD Discharged Inpatient [facility] 09/07/16 6:56pm 09/15/16 5:00pm ASHVIN MARTI MD Discharged Inpatient [facility] 07/24/16 3:58pm 07/29/16 12:09pm VINNY RENDON MD
--- NOTE | 2017-07-09 15:25 | Diagnostic Imaging Report ---
Nephrostomy catheter evaluation and exchange, 07/03/2017 Pre-Procedure Diagnosis: Cervical cancer status post radiation therapy with right ureteral stenosis. Post-procedure Diagnosis:Cervical cancer status post radiation therapy with right ureteral stenosis [employer] Cosmetics Sales Counter Manager: Eleni Thomas Repossession Agent: None Sedation: None. Radiation Dose:1.931 cGycm2 (Dose Area Product) Fluoroscopy time:0.7 minutes Estimate blood loss: None Blood administered: None Complications: None Implants/Grafts: 8-Telugu right nephrostomy Specimen: None Procedure: Informed consent was obtained and the patient positioned prone in the fluoroscopy suite. A timeout was performed. The indwelling right nephrostomy was prepped and draped in standard fashion. Diagnostic antegrade nephrostogram was performed nephrostomy. See findings below. The indwelling catheter was severed and removed over a Glidewire given heavy encrustation. Glidewire was exchanged for a Augmentson wire with a short KMP catheter. A new 10-Telugu nephrostomy was coiled in the renal pelvis without complication. Contrast injection confirmed placement within the renal pelvis. At the end of the procedure the catheter was connected to gravity drainage and a sterile dressing applied. The patient tolerated the procedure well and without immediate complication. Findings: Antegrade nephrostogram: Patent catheter. No hydronephrosis. Mildly prominent pelvis. Diffuse right ureteral stenosis with distal occlusion. The catheter was heavily encrusted with debris. Impression: Successful right 10-Telugu nephrostomy exchange with antegrade nephrostogram. Recommendations: Routine catheter exchange in 2 months given stent encrustation. This report was generated with voice-recognition technology. Errors in dental laboratory technician apprentice can occur. Please interpret accordingly and contact a radiologist if there are any questions regarding the report. Signed by: Dr. Carlos Thomas M.D. on 07/03/2017 11:55 AM
== END | disposition home or self-care (01) ==
LOC: CATH LAB 11:08 → EDSTATUS 13:30
PROVIDERS: ATTEND Radiology Diagnostic Radiology
DX: Z53.9 Procedure and treatment not carried out, unspecified reason (principal)

== ENCOUNTER → 2017-07-03 | Day surgery (SDC) | payer BC ==
[~2017-07-03] VITALS: Ht 152.4 cm; Wt 83.9 kg
[~2017-07-03] MED LIST changes: +FENTANYL CITRATE/PF 100MCG/2 ML INJ ONE; +LIDOCAINE HCL 2% LOCAL 20 ML VIAL ONE; +MIDAZOLAM HCL 2 MG/2 ML VIAL ONE; +SODIUM CHLORIDE 0.9% 500ML 1,000 ML ONE
== END | disposition home or self-care (01) ==
LOC: CATH LAB 07:21 → EDSTATUS 08:00
PROVIDERS: ATTEND Radiology Vascular & Interventional Radiology
DX: Z46.6 Encounter for fitting and adjustment of urinary device (principal); N13.30 Unspecified hydronephrosis; C53.9 Malignant neoplasm of cervix uteri, unspecified; Q62.10 Congenital occlusion of ureter, unspecified
CPT/HCPCS: 50435; J2001; J2250; J7040

== ENCOUNTER 2017-07-05 12:44 | Emergency (ER) | payer BC ==
[~2017-07-05 12:44] MED LIST changes: -FENTANYL CITRATE/PF 100MCG/2 ML INJ ONE; -LIDOCAINE HCL 2% LOCAL 20 ML VIAL ONE; -MIDAZOLAM HCL 2 MG/2 ML VIAL ONE; -SODIUM CHLORIDE 0.9% 500ML 1,000 ML ONE
== END 2017-07-05 13:01 | disposition short-term general hospital (02) ==
LOC: ER 12:59
DX: M54.9 Dorsalgia, unspecified (principal)

== ENCOUNTER 2017-07-16 02:07 | Emergency (ER) | payer SELFPAY ==
[~2017-07-16] VITALS: Ht 152.4 cm; Wt 83.9 kg
--- OUTSIDE RECORDS SUMMARY | 2017-07-16 02:11 | XMS REPORT | Continuity of Care Document ---
Author Author [facility] Organization [facility] Address [address] [place] [address] Phone Unavailable Care Team Providers Care Delivery Supervisor Name Role Phone KEVIN RICKS M.D. PCP Insurance Providers Guarantor Wesly Heredia Address [address] [place] [address] Email [email or web address] Payer Blue Cross Exchange Policy Number [id number] Subscriber's Name Wesly Heredia Relationship 18 Self / Same As Patient Group Number [id number] Group Name UNEMPLOYED Effective Date 17 Advance Directives Directive Response Recorded Date/Time Does the patient have an advance directive? No 03/11/17 10:42am If yes, is advance directive on file with [facility]? No 12/27/16 10:08pm If not on file with [facility] will patient provide a copy? No 07/01/17 11:07am Problems Medical Problem Onset Date Status Colitis [...] D3) 50,000 Unit Capsule, 1 Cap Oral Environmental Planning Engineer Discontinued Ciprofloxacin Hcl (Cipro) 500 Mg Tablet, [...] Not Applicable Hx Substance Use Disorder No 07/03/2017 7:20am Not Applicable Not Applicable Hx Depression Y - mother in residential, father is homeless, family issues 03/11/2017 10:42am Not Applicable Not Applicable Hx Alcohol Use No 07/03/2017 7:20am Not Applicable Not Applicable Hx Substance Use Treatment No 03/11/2017 10:42am Not Applicable Not Applicable Hx Physical Abuse No 03/11/2017 10:42am Not Applicable Not Applicable Hospital Discharge Instructions No hospital discharge instruction information available. Plan of Care Discharge Date 07/05/17 1:01pm Disposition REQUEST WITHDRAWN FOR MSE Condition at Discharge Other Instructions/Education Provided Back Pain Forms Provided Work/School Excuse Prescriptions See Medication Section Functional Status No functional status information available. [...] Blood Pressure 131/76 mm Hg 04/12/2017 5:09pm Results Laboratory Results Test Name Result Units Flags Reference Collection Date/Time Result Date/ Time Comments Hemoglobin A1c Percent 6.5 % 4.0-7.0 09/09/2016 [...] 70-120 12/31/2016 10:55am 12/31/2016 8:10pm Meter ID: [id number] Human Chorionic Gonadotropin, Quant 1.95 mIU/mL 0-10 [...] 58pm Hemoglobin 11.2 g/dL L 12.0-16.0 04/12/2017 2:28pm 04/12/2017 2:58pm Hematocrit 34.9 % 34.2-44.1 04/12/2017 2:28pm 04/12/2017 2:58pm Mean Corpuscular Volume 79.5 fL L 81-99 04/12/2017 2:2804/12/2017 2: 58pm Mean Corpuscular Hemoglobin 25.5 pg L 28-32 04/12/2017 2:28pm 2017 2:58pm Mean Corpuscular Hemoglobin Concent 32.1 g/dL 31-35 04/12/2017 2:28pm 04/12/2017 2:58pm Red Cell Distribution Width 15.2 % H 11.7-14.4 04/12/2017 2:28pm 2017 2:58pm Platelet Count 249 x10e3/uL 140-360 04/12/2017 2:28pm 04/12/2017 2: 58pm Neutrophils (%) (Auto) 73.3 % 38.7-80.0 04/12/2017 2:28pm 04/12/2017 2: 58pm Lymphocytes (%) (Auto) 16.7 % L 18.0-39.1 04/12/2017 2:28pm 04/12/2017 2 :58pm Monocytes (%) (Auto) 8.8 % 4.4-11.3 04/12/2017 2:28pm 04/12/2017 2: 58pm Eosinophils (%) (Auto) 0.5 % 0.0-6.0 04/12/2017 2:28pm 04/12/2017 2: 58pm Basophils (%) (Auto) 0.3 % 0.0-1.0 04/12/2017 2:28pm 04/12/2017 2:58pm IM GRANULOCYTES % 0.4 % 0.0-1.0 04/12/2017 2:28pm 04/12/2017 2:58pm Neutrophils # (Auto) 8.2 H 2.1-6.9 04/12/2017 2:28pm 04/12/2017 2: 58pm Lymphocytes # (Auto) 1.9 1.0-3.2 04/12/2017 2:28pm 04/12/2017 2:58pm Monocytes # (Auto) 1.0 H 0.2-0.8 04/12/2017 2:28pm 04/12/2017 2:58pm Eosinophils # (Auto) 0.1 0.0-0.4 04/12/2017 2:04/12/2017 2:58pm Basophils # (Auto) 0.0 0.0-0.1 04/12/2017 2:28pm 04/12/2017 2:58pm Absolute Immature Granulocyte (auto 0.04 x10e3/uL 0-0.1 04/12/2017 2: 28pm 04/12/2017 2:58pm Urine Color YELLOW YELLOW 04/12/2017 2:28pm 04/12/2017 3:21pm Urine Clarity CLOUDY H CLEAR 04/12/2017 2:28pm 04/12/2017 3:21pm Urine Specific [place] 1.010 1.010-1.025 04/12/2017 2:28pm 2017 3:21pm Urine [...] :21am Final Procedures Procedure Status Date Provider(s) DILATION OF BILATERAL URETERS WITH INTRALUMINAL DEVICE, [...] DEVICE IN BLADDER, EXTERNAL APPROACH Completed 09/13/16 BRENDON CHAPPELL DO CHANGE DRAINAGE DEVICE IN BLADDER, EXTERNAL APPROACH Completed 09/14/16 BRENDON CHAPPELL DO INSERTION OF INFUSION DEV INTO R BASILIC VEIN, PERC APPROACH Completed ASHVIN MARTI MD CHANGE DRAINAGE DEVICE IN KIDNEY, EXTERNAL APPROACH Completed 11/05/16 JARET ESPINOSA MD INSERTION OF INFUSION DEV INTO SUP VENA CAVA, PERC APPROACH Completed CARLA ASTUDILLO MD DRAINAGE OF RIGHT KIDNEY PELVIS, PERCUTANEOUS APPROACH Completed 12/29/16 OSIEL SULLIVAN MD CHANGE DRAINAGE DEVICE IN KIDNEY, EXTERNAL APPROACH Completed 03/11/17 LIZ MUÑIZ MD CT of abdomen and pelvis without contrast Active 03/11/17 LIZ MUÑIZ MD CT of abdomen and pelvis without contrast Active 04/12/17 ASHA BARDALES ELEMENTARY ELL TEACHER Encounters Encounter Location Arrival/Admit Date Discharge/Depart Date Attending Provider Departed Emergency [facility] 07/05/17 12:59pm 07/05 1:01pm ARIA ROCHE MD Registered Surgical Day Care [facility] 07/03/17 7:21am CARLA ASTUDILLO MD Registered Surgical Day [facility] 07/01/17 11:08am OSIEL SULLIVAN MD Departed Emergency [facility] 04/12/17 1:23pm 5:28pm JUDAH FRAGOSO MD Discharged Inpatient [facility] 03/11/17 6:30am 03/14/17 2:25pm VIKY MONTOYA MD Discharged [facility]patient [facility] 12/27/16 8:18pm 12/31/16 2:28pm CARLIE NIX MD Discharged [facility]patient [facility] 11/06/16 7:17am 11/06/16 5:05pm CARLIE NIX MD Discharged [facility]patient [facility] 09/07/16 6:56pm 09/15/16 5:00pm ASHVIN MARTI MD
== END 2017-07-16 02:38 | disposition home or self-care (01) ==
LOC: ER 02:07
DX: F41.9 Anxiety disorder, unspecified (principal); F32.9 Major depressive disorder, single episode, unspecified
CPT/HCPCS: 93005; 99282

== ENCOUNTER 2017-08-10 13:10 | Emergency (ER) | payer BC ==
[~2017-08-10] VITALS: Ht 152.4 cm; Wt 83.9 kg
[2017-08-10] MEDS ORDERED: HYDROCODONE/APAP 5MG-325MG TAB PO ONE (13:45)
[2017-08-10 14:16] LABS: BASOPHILS # (AUTO) 0.1 (0.0-0.1); BASOPHILS % 0.6 % (0.0-1.0); EOSINOPHILS # (AUTO) 0.1 (0.0-0.4); EOSINOPHILS % 1.8 % (0.0-6.0); HEMOGLOBIN 10.4 g/dL (12.0-16.0); LYMPHOCYTES # (AUTO) 2.2 (1.0-3.2); LYMPHOCYTES % 27.3 % (18.0-39.1); MEAN CORPUSCULAR HEMOGLOBIN 25.7 pg (28-32); MEAN CORPUSCULAR HGB CONC 31.5 g/dL (31-35); MEAN CORPUSCULAR VOLUME 81.5 fL (81-99); MONOCYTES # (AUTO) 0.4 (0.2-0.8); MONOCYTES % 4.9 % (4.4-11.3); NEUTROPHILS # (AUTO) 5.2 (2.1-6.9); NEUTROPHILS % 65.1 % (38.7-80.0); PLATELET COUNT 334 x10e3/uL (140-360); RED BLOOD COUNT 4.05 x10e6/uL (3.6-5.1); RED CELL DISTRIBUTION WIDTH 15.7 % (11.7-14.4)
[2017-08-10 14:17] LABS: BILIRUBIN,URINE NEGATIVE (NEGATIVE); CLARITY,URINE CLOUDY (CLEAR); COLOR,URINE YELLOW (YELLOW); KETONES,URINE NEGATIVE (NEGATIVE); LEUKOCYTE ESTERASE ,URINE 2+ (NEGATIVE); NITRITE,URINE NEGATIVE (NEGATIVE); PROTEIN,URINE DIPSTICK 1+ (NEGATIVE); URINE UROBILINOGEN 0.2 mg/dL (0.2 - 1)
[2017-08-10 14:30] LABS: WBC,URINE (MAN) 21-50 /HPF (0-5)
[2017-08-10 14:31] LABS: AMORPHOUS SEDIMENT,URINE MODERATE (FEW); BACTERIA,URINE FEW /HPF; RBC,URINE >50 /HPF (0-5)
[2017-08-10 14:37] LABS: ALANINE AMINOTRANSFERASE 19 IU/L (0-55); ALBUMIN 3.3 g/dL (3.5-5.0); ALBUMIN/GLOBULIN RATIO 0.7 (0.8-2.0); ALKALINE PHOSPHATASE 88 IU/L (40-150); AMYLASE 51 U/L (25-125); ANION GAP 14.9 mmol/L (8-16); BLOOD UREA NITROGEN 13 mg/dL (7-26); BUN/CREATININE RATIO 15 (6-25); CALCIUM 9.7 mg/dL (8.4-10.2); CARBON DIOXIDE 23 mmol/L (22-29); CHLORIDE 105 mmol/L (98-107); CREATININE, SERUM 0.85 mg/dL (0.57-1.11); EST GLOMERULAR FILTRATION RATE > 60 ML/MIN (60-); GLUCOSE 191 mg/dL (74-118); LIPASE 27 U/L (8-78); POTASSIUM 3.9 mmol/L (3.5-5.1); SODIUM 139 mmol/L (136-145)
[2017-08-10] MEDS ORDERED: CEFTRIAXONE SOD 1 GM VIAL IV ONE (16:00)
[2017-08-10] MEDS ORDERED: MORPHINE SULFATE 2 MG/ML SYR IV ONE (16:30)
[2017-08-10] MEDS ORDERED: ONDANSETRON HCL INJ 2 MG/ML VIAL IV STA (16:30)
[2017-08-10 16:37] LABS: CLARITY,URINE TURBID (CLEAR); COLOR,URINE YELLOW (YELLOW); KETONES,URINE NEGATIVE (NEGATIVE); LEUKOCYTE ESTERASE ,URINE 2+ (NEGATIVE); NITRITE,URINE POSITIVE (NEGATIVE); PROTEIN,URINE DIPSTICK 3+ (NEGATIVE); URINE UROBILINOGEN 0.2 mg/dL (0.2 - 1)
[2017-08-10 16:38] LABS: BILIRUBIN,URINE NEGATIVE (NEGATIVE); CLARITY,URINE CLOUDY (CLEAR); COLOR,URINE YELLOW (YELLOW); KETONES,URINE NEGATIVE (NEGATIVE); LEUKOCYTE ESTERASE ,URINE 2+ (NEGATIVE); NITRITE,URINE NEGATIVE (NEGATIVE); PROTEIN,URINE DIPSTICK TRACE (NEGATIVE); URINE UROBILINOGEN 0.2 mg/dL (0.2 - 1)
[2017-08-10 16:38] LABS: BILIRUBIN,URINE NEGATIVE (NEGATIVE)
[2017-08-10 16:42] LABS: BACTERIA,URINE MANY /HPF; WBC,URINE (MAN) >50 /HPF (0-5)
[2017-08-10 16:49] LABS: WBC,URINE (MAN) >50 /HPF (0-5)
[2017-08-10 16:50] LABS: BACTERIA,URINE MODERATE /HPF
[2017-08-10 18:23] VITALS: BP 100/64
== END 2017-08-10 18:25 | disposition home or self-care (01) ==
LOC: ER 13:10
DX: R10.9 Unspecified abdominal pain (principal); N30.90 Cystitis, unspecified without hematuria; E78.5 Hyperlipidemia, unspecified; Z85.41 Personal history of malignant neoplasm of cervix uteri
CPT/HCPCS: 36415; 80053; 81001; 82150; 83690; 85025; 87086; 87186; 99283; J0696; J2270; J2405

== ENCOUNTER 2017-09-17 14:55 | Inpatient (IN) | payer BC ==
[~2017-09-17] VITALS: Ht 152.4 cm; Wt 84.8 kg
[2017-09-17 16:11] LABS: BILIRUBIN,URINE NEGATIVE (NEGATIVE); CLARITY,URINE CLOUDY (CLEAR); COLOR,URINE YELLOW (YELLOW); KETONES,URINE NEGATIVE (NEGATIVE); LEUKOCYTE ESTERASE ,URINE 2+ (NEGATIVE); NITRITE,URINE NEGATIVE (NEGATIVE); PROTEIN,URINE DIPSTICK 1+ (NEGATIVE); URINE UROBILINOGEN 0.2 mg/dL (0.2 - 1)
[2017-09-17 16:30] LABS: BACTERIA,URINE FEW /HPF; MUCUS,URINE FEW (RARE); RBC,URINE >50 /HPF (0-5)
[2017-09-17] MEDS ORDERED: SODIUM CHLORIDE 0.9% 500ML 500 ML IV STA (17:43)
[2017-09-17] MEDS ORDERED: CEFTRIAXONE SOD 1 GM VIAL IV ONE (17:45)
[2017-09-17] MEDS ORDERED: ACETAMINOPHEN 325 MG TAB PO ONE (17:45)
--- NOTE | 2017-09-17 18:14 | Consultation ---
DATE OF CONSULTATION: September 17, 2017 RENAL CONSULTATION HISTORY OF PRESENT ILLNESS: A 56-year-old INCOMPLETE REPORT Job#: [id number]
[2017-09-17 18:33] LABS: BASOPHILS # (AUTO) 0.1 (0.0-0.1); BASOPHILS % 0.5 % (0.0-1.0); EOSINOPHILS # (AUTO) 0.1 (0.0-0.4); EOSINOPHILS % 1.2 % (0.0-6.0); HEMATOCRIT 36.2 % (34.2-44.1); HEMOGLOBIN 11.3 g/dL (12.0-16.0); LYMPHOCYTES # (AUTO) 2.5 (1.0-3.2); LYMPHOCYTES % 26.1 % (18.0-39.1); MEAN CORPUSCULAR HEMOGLOBIN 25.7 pg (28-32); MEAN CORPUSCULAR HGB CONC 31.2 g/dL (31-35); MEAN CORPUSCULAR VOLUME 82.3 fL (81-99); MONOCYTES # (AUTO) 0.7 (0.2-0.8); MONOCYTES % 7.1 % (4.4-11.3); NEUTROPHILS # (AUTO) 6.1 (2.1-6.9); NEUTROPHILS % 64.7 % (38.7-80.0); PLATELET COUNT 346 x10e3/uL (140-360); RED CELL DISTRIBUTION WIDTH 14.8 % (11.7-14.4)
[2017-09-17 18:47] LABS: ANION GAP 17.9 mmol/L (8-16); BLOOD UREA NITROGEN 12 mg/dL (7-26); BUN/CREATININE RATIO 13 (6-25); CALCIUM 9.7 mg/dL (8.4-10.2); CARBON DIOXIDE 22 mmol/L (22-29); CHLORIDE 102 mmol/L (98-107); CREATININE, SERUM 0.94 mg/dL (0.57-1.11); EST GLOMERULAR FILTRATION RATE > 60 ML/MIN (60-); GLUCOSE 107 mg/dL (74-118); POTASSIUM 3.9 mmol/L (3.5-5.1); SODIUM 138 mmol/L (136-145)
--- NOTE | 2017-09-17 19:31 | Diagnostic Imaging Report ---
EXAM: CT Abdomen and Pelvis WITHOUT contrast INDICATION: UTI. Fever. COMPARISON: CT abdomen and pelvis 04/12/2017. TECHNIQUE: Abdomen and pelvis were scanned utilizing a multidetector helical scanner from the lung base to the pubic symphysis without administration of IV contrast. Absence of intravenous contrast decreases sensitivity for detection of focal lesions and vascular pathology. Coronal and sagittal reformations were obtained. Renal stone protocol was performed. IV CONTRAST: None. ORAL CONTRAST: Water RADIATION DOSE: Total DLP: 560.77 mGy*cm Estimated effective dose: (DLP x 0.015 x size factor) mSv COMPLICATIONS: None FINDINGS: LINES and TUBES: Right percutaneous nephrostomy tube, unchanged position. LOWER THORAX: 2 mm right lower lobe calcified granuloma, unchanged. HEPATOBILIARY: Mild diffuse low-attenuation of the hepatic parenchyma suggesting mild steatosis. No focal hepatic lesions. No biliary ductal dilation. GALLBLADDER: Calcified gallstone. No wall thickening. SPLEEN: No splenomegaly. PANCREAS: No focal masses or ductal dilatation. ADRENALS: No adrenal nodules KIDNEYS/URETERS: Interval development of mild to moderate left-sided hydronephrosis. Mild to moderate left ureteral dilatation all the way to the level just proximal to the UVJ. 2 calculi were previously present in the lower pole of the left kidney; the smallest one is no longer visualized, possibly passed. 5.8 x 5.8 mm calculus in the lower pole of the left kidney appears slightly bulkier, previously measuring 4 mm. GI TRACT: No abnormal distention, wall thickening, or evidence of bowel obstruction. Appendix is normal. REPRODUCTIVE ORGANS: The uterus is small. No adnexal masses. 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 BLADDER: A small contracted bladder is again observed. Redemonstration of a cystic structure in the pelvis suggestive of a small bladder, which is unchanged in appearance. Radiation seeds again observed in the uterine cervix. LYMPH NODES: No lymphadenopathy. VESSELS: There is mild atherosclerotic disease in the aorta and major arterial branches. PERITONEUM / RETROPERITONEUM: No free air or fluid. BONES: Lower thoracic DISH. SOFT TISSUES: Unremarkable. IMPRESSION: 1. Interval development of mild to moderate left-sided hydronephrosis which may be related to a recently passed calculus or less likely due to distal ureteral stricture. Otherwise unchanged exam. Signed by: Dr. Rivas Victoria M.D. on 09/17/2017 7:28 PM
[2017-09-17] MEDS ORDERED: HYDROMORPHONE 1MG/1ML INJ IV ONE (21:15)
[2017-09-17 23:07] LABS: CLARITY,URINE CLOUDY (CLEAR); COLOR,URINE YELLOW (YELLOW)
[2017-09-17 23:08] LABS: BACTERIA,URINE MODERATE /HPF; BILIRUBIN,URINE NEGATIVE (NEGATIVE); EPITHELIAL CELLS,URINE RARE /LPF; KETONES,URINE NEGATIVE (NEGATIVE); LEUKOCYTE ESTERASE ,URINE 1+ (NEGATIVE); NITRITE,URINE POSITIVE (NEGATIVE); PROTEIN,URINE DIPSTICK 2+ (NEGATIVE); RBC,URINE 0-5 /HPF (0-5); URINE UROBILINOGEN 0.2 mg/dL (0.2 - 1); WBC,URINE (MAN) >50 /HPF (0-5)
[2017-09-18] VITALS (7 sets, daily range): BP systolic 118–142; BP diastolic 56–89
[2017-09-18] MEDS: MORPHINE SULFATE 2 MG/ML SYR IV PRN ×3 (04:20→19:55)
[2017-09-18] MEDS: ONDANSETRON HCL INJ 2 MG/ML VIAL IV PRN ×3 (04:20→19:55)
[2017-09-18] MEDS: SODIUM CHLORIDE 0.9% 1000ML 1,000 ML IV SCH ×3 (04:32→20:00)
[2017-09-18 07:37] LABS: BASOPHILS # (AUTO) 0.1 (0.0-0.1); BASOPHILS % 0.5 % (0.0-1.0); EOSINOPHILS # (AUTO) 0.1 (0.0-0.4); EOSINOPHILS % 0.8 % (0.0-6.0); HEMATOCRIT 32.6 % (34.2-44.1); HEMOGLOBIN 10.2 g/dL (12.0-16.0); LYMPHOCYTES # (AUTO) 2.2 (1.0-3.2); LYMPHOCYTES % 22.4 % (18.0-39.1); MEAN CORPUSCULAR HEMOGLOBIN 25.4 pg (28-32); MEAN CORPUSCULAR HGB CONC 31.3 g/dL (31-35); MEAN CORPUSCULAR VOLUME 81.3 fL (81-99); MONOCYTES # (AUTO) 0.6 (0.2-0.8); MONOCYTES % 6.3 % (4.4-11.3); NEUTROPHILS # (AUTO) 6.9 (2.1-6.9); NEUTROPHILS % 69.7 % (38.7-80.0); PLATELET COUNT 319 x10e3/uL (140-360); RED BLOOD COUNT 4.01 x10e6/uL (3.6-5.1); RED CELL DISTRIBUTION WIDTH 14.8 % (11.7-14.4)
[2017-09-18 07:54] LABS: ANION GAP 14.7 mmol/L (8-16); BLOOD UREA NITROGEN 9 mg/dL (7-26); BUN/CREATININE RATIO 11 (6-25); CALCIUM 9.1 mg/dL (8.4-10.2); CARBON DIOXIDE 23 mmol/L (22-29); CHLORIDE 106 mmol/L (98-107); CREATININE, SERUM 0.79 mg/dL (0.57-1.11); EST GLOMERULAR FILTRATION RATE > 60 ML/MIN (60-); GLUCOSE 133 mg/dL (74-118); POTASSIUM 3.7 mmol/L (3.5-5.1); SODIUM 140 mmol/L (136-145)
--- NOTE | 2017-09-18 11:24 | Diagnostic Imaging Report ---
PROCEDURE:X-RAY ABDOMEN - KUB COMPARISON:CT Abdomen/Pelvis 04/12/17. INDICATIONS:PREOPERATIVE XRAY FOR ESWL FINDINGS: Right sided PCN is present. A 5 mm and 2 mm calcification projects over the left kidney. No calcifications over the expected location of the ureters. Surgical clips in the pelvis. There is a non-obstructed bowel-gas pattern. There are no acute osseous abnormalities. CONCLUSION: Right sided PCN in similar position. Left sided renal stones measuring up to 5 mm, better characterized on CT from 04/12/17. No evidence of stones overlying the ureters. Dictated by: MODE DONALD M.D. on 09/18/2017 at 7:34 Electronically approved by: MODE DONALD M.D. on 09/18/2017 at 7:34
[2017-09-18] MEDS ORDERED: IOPAMIDOL 300MG/ML 50ML INFUS..BTL IV ONE (14:04)
[2017-09-18] MEDS ORDERED: FENTANYL CITRATE/PF 100MCG/2 ML INJ ONE ×2 (14:50→15:09)
[2017-09-18] MEDS ORDERED: MIDAZOLAM HCL 2 MG/2 ML VIAL ONE (15:09)
[2017-09-18] MEDS: CEFTRIAXONE SOD 1 GM VIAL IV SCH (16:38)
[2017-09-18] MEDS ORDERED: DEXAMETHASONE SOD PHOS INJ 4 MG/ML VIAL ONE (18:14)
[2017-09-18] MEDS ORDERED: ACETAMINOPHEN 1000 MG/100 ML IV ONE (18:14)
[2017-09-18] MEDS ORDERED: LIDOCAINE HCL 2% LOCAL INJ 5 ML SDV VIAL INJ ONE (18:14)
[2017-09-18] MEDS ORDERED: ONDANSETRON HCL INJ 2 MG/ML VIAL ONE (18:14)
[2017-09-18] MEDS ORDERED: PROPOFOL IV EMULSION 10 MG/ML 20 ML VIAL ONE (18:14)
[2017-09-18] MEDS ORDERED: SEVOFLURANE INHAL SOLN 250 ML PEN BTL ONE (18:14)
[2017-09-19] VITALS (7 sets, daily range): BP systolic 111–140; BP diastolic 57–74
[2017-09-19] MEDS: SODIUM CHLORIDE 0.9% 1000ML 1,000 ML IV SCH ×3 (05:52→21:03)
[2017-09-19 06:34] LABS: BASOPHILS % 0.4 % (0.0-1.0); HEMATOCRIT 33.5 % (34.2-44.1); HEMOGLOBIN 10.1 g/dL (12.0-16.0); LYMPHOCYTES # (AUTO) 1.4 (1.0-3.2); LYMPHOCYTES % 18.4 % (18.0-39.1); MEAN CORPUSCULAR HEMOGLOBIN 25.3 pg (28-32); MEAN CORPUSCULAR HGB CONC 30.1 g/dL (31-35); MEAN CORPUSCULAR VOLUME 83.8 fL (81-99); MONOCYTES # (AUTO) 0.4 (0.2-0.8); MONOCYTES % 5.2 % (4.4-11.3); NEUTROPHILS # (AUTO) 5.7 (2.1-6.9); NEUTROPHILS % 75.3 % (38.7-80.0); PLATELET COUNT 315 x10e3/uL (140-360); RED CELL DISTRIBUTION WIDTH 14.6 % (11.7-14.4)
[2017-09-19] MEDS: MORPHINE SULFATE 2 MG/ML SYR IV PRN ×2 (06:38→18:25)
[2017-09-19] MEDS: ONDANSETRON HCL INJ 2 MG/ML VIAL IV PRN (06:39)
[2017-09-19 06:51] LABS: ANION GAP 14.1 mmol/L (8-16); BLOOD UREA NITROGEN 11 mg/dL (7-26); BUN/CREATININE RATIO 14 (6-25); CALCIUM 9.3 mg/dL (8.4-10.2); CARBON DIOXIDE 22 mmol/L (22-29); CHLORIDE 108 mmol/L (98-107); CREATININE, SERUM 0.76 mg/dL (0.57-1.11); EST GLOMERULAR FILTRATION RATE > 60 ML/MIN (60-); GLUCOSE 154 mg/dL (74-118); POTASSIUM 4.1 mmol/L (3.5-5.1); SODIUM 140 mmol/L (136-145)
[2017-09-19] MEDS: CEFTRIAXONE SOD 1 GM VIAL IV SCH (08:22)
[2017-09-19] MEDS: FLUCONAZOLE 400MG/200ML BAG 200 ML IV SCH (13:28)
[2017-09-19] MEDS ORDERED: OXYBUTYNIN CHLORIDE XL 5 MG TAB PO NR (18:15)
[2017-09-20] VITALS: BP 127/68
[2017-09-20] MEDS: MORPHINE SULFATE 2 MG/ML SYR IV PRN ×3 (00:12→21:45)
[2017-09-20] MEDS: ONDANSETRON HCL INJ 2 MG/ML VIAL IV PRN (00:13)
[2017-09-20 04:00] VITALS: BP 131/69
[2017-09-20 05:33] LABS: BASOPHILS # (AUTO) 0.1 (0.0-0.1); BASOPHILS % 0.6 % (0.0-1.0); EOSINOPHILS # (AUTO) 0.1 (0.0-0.4); EOSINOPHILS % 0.7 % (0.0-6.0); HEMATOCRIT 31.1 % (34.2-44.1); HEMOGLOBIN 9.6 g/dL (12.0-16.0); LYMPHOCYTES # (AUTO) 2.7 (1.0-3.2); LYMPHOCYTES % 29.3 % (18.0-39.1); MEAN CORPUSCULAR HEMOGLOBIN 25.5 pg (28-32); MEAN CORPUSCULAR HGB CONC 30.9 g/dL (31-35); MEAN CORPUSCULAR VOLUME 82.7 fL (81-99); MONOCYTES # (AUTO) 0.6 (0.2-0.8); MONOCYTES % 6.1 % (4.4-11.3); NEUTROPHILS # (AUTO) 5.9 (2.1-6.9); NEUTROPHILS % 62.8 % (38.7-80.0); PLATELET COUNT 304 x10e3/uL (140-360); RED BLOOD COUNT 3.76 x10e6/uL (3.6-5.1); RED CELL DISTRIBUTION WIDTH 14.9 % (11.7-14.4)
[2017-09-20 05:54] LABS: ANION GAP 13.6 mmol/L (8-16); BLOOD UREA NITROGEN 14 mg/dL (7-26); BUN/CREATININE RATIO 18 (6-25); CALCIUM 8.6 mg/dL (8.4-10.2); CARBON DIOXIDE 23 mmol/L (22-29); CHLORIDE 109 mmol/L (98-107); CREATININE, SERUM 0.77 mg/dL (0.57-1.11); EST GLOMERULAR FILTRATION RATE > 60 ML/MIN (60-); GLUCOSE 136 mg/dL (74-118); POTASSIUM 3.6 mmol/L (3.5-5.1); SODIUM 142 mmol/L (136-145)
[2017-09-20 07:55] VITALS: BP 130/65
[2017-09-20] MEDS: CEFTRIAXONE SOD 1 GM VIAL IV SCH (08:11)
[2017-09-20] MEDS: OXYBUTYNIN CHLORIDE 5 MG TAB PO SCH ×2 (08:12→17:00)
[2017-09-20] MEDS: SODIUM CHLORIDE 0.9% 1000ML 1,000 ML IV SCH ×2 (09:55→21:41)
[2017-09-20] MEDS: FLUCONAZOLE 400MG/200ML BAG 200 ML IV SCH (13:00)
[2017-09-20] MEDS: MEROPENEM 1 GM VIAL IV SCH ×2 (14:00→21:41)
[2017-09-20] MEDS ORDERED: MEROPENEM 1GM 100 ML IV SCH (14:00)
[2017-09-20 16:00] VITALS: BP 142/62
[2017-09-20 19:40] VITALS: BP 144/71
[2017-09-20 21:00] VITALS: BP 144/71
[2017-09-21] VITALS (8 sets, daily range): BP systolic 114–140; BP diastolic 68–88
[2017-09-21] MEDS: MEROPENEM 1 GM VIAL IV SCH ×3 (05:48→22:45)
[2017-09-21] MEDS: SODIUM CHLORIDE 0.9% 1000ML 1,000 ML IV SCH ×2 (06:07→21:45)
[2017-09-21 06:09] LABS: ANION GAP 14.7 mmol/L (8-16); BLOOD UREA NITROGEN 11 mg/dL (7-26); BUN/CREATININE RATIO 15 (6-25); CALCIUM 8.7 mg/dL (8.4-10.2); CARBON DIOXIDE 23 mmol/L (22-29); CHLORIDE 107 mmol/L (98-107); CREATININE, SERUM 0.73 mg/dL (0.57-1.11); EST GLOMERULAR FILTRATION RATE > 60 ML/MIN (60-); GLUCOSE 118 mg/dL (74-118); POTASSIUM 3.7 mmol/L (3.5-5.1); SODIUM 141 mmol/L (136-145)
[2017-09-21] MEDS: MORPHINE SULFATE 2 MG/ML SYR IV PRN ×3 (06:12→21:46)
[2017-09-21 06:14] LABS: BASOPHILS # (AUTO) 0.1 (0.0-0.1); BASOPHILS % 0.6 % (0.0-1.0); EOSINOPHILS # (AUTO) 0.2 (0.0-0.4); EOSINOPHILS % 1.9 % (0.0-6.0); HEMATOCRIT 31.3 % (34.2-44.1); HEMOGLOBIN 9.6 g/dL (12.0-16.0); LYMPHOCYTES # (AUTO) 2.7 (1.0-3.2); LYMPHOCYTES % 31.7 % (18.0-39.1); MEAN CORPUSCULAR HEMOGLOBIN 25.5 pg (28-32); MEAN CORPUSCULAR HGB CONC 30.7 g/dL (31-35); MEAN CORPUSCULAR VOLUME 83.2 fL (81-99); MONOCYTES # (AUTO) 0.6 (0.2-0.8); NEUTROPHILS # (AUTO) 4.9 (2.1-6.9); NEUTROPHILS % 58.2 % (38.7-80.0); PLATELET COUNT 302 x10e3/uL (140-360); RED BLOOD COUNT 3.76 x10e6/uL (3.6-5.1)
[2017-09-21 07:05] LABS: HYPOCHROMASIA SLIGHT; PLATELET ESTIMATE ADEQUATE; PLATELET MORPHOLOGY COMMENT NORMAL; RBC MORPHOLOGY COMMENT NORMAL
[2017-09-21] MEDS: OXYBUTYNIN CHLORIDE 5 MG TAB PO SCH ×2 (09:00→15:47)
[2017-09-21] MEDS: FLUCONAZOLE 400MG/200ML BAG 200 ML IV SCH (11:39)
[2017-09-21] MEDS: ONDANSETRON HCL INJ 2 MG/ML VIAL IV PRN ×2 (11:39→21:46)
--- NOTE | 2017-09-21 11:39 | Diagnostic Imaging Report ---
PROCEDURE: A single AP view of the chest. COMPARISON: None. INDICATIONS: PICC LINE PLACEMENT FINDINGS: Lines/tubes: Right sided PICC terminating in the expected location of the SVC. Lungs: Low lung volumes. There is no evidence of pneumonia or pulmonary edema. Mild patchy bibasilar atelectasis. Pleura: There is no pleural effusion or pneumothorax. Heart and mediastinum: The cardiomediastinal silhouette is unremarkable. Bones: No acute bony abnormality. IMPRESSION: Right sided PICC terminating in the expected location of the SVC. No evidence of pneumothorax. Dictated by: MODE DONALD M.D. on 09/21/2017 at 11:46 Electronically approved by: MODE DONALD M.D. on 09/21/2017 at 11:46
--- NOTE | 2017-09-21 12:32 | Consultation ---
DATE OF CONSULTATION: September 21, 2017 INFECTIOUS DISEASE CONSULTATION REASON FOR CONSULTATION: Bacteruria, recommendation on antibiotic. HISTORY OF PRESENT ILLNESS: This is a patient who is a 56-year-old female, history of cervical cancer status post radiation and treatment. The patient comes in with dysuria. The patient apparently was followed by Edi Gary. Now she is being followed by Dr. Gorge Darby. The patient has a nephrostomy tube placed. She was admitted for a change of the nephrostomy. When she first came, apparently she was not feeling well. She did grow Klebsiella pneumoniae ESBL 51 to 99 thousand and Klebsiella pneumoniae ESBL 10,000 to 50,000. The patient's sensitivity was reviewed. She was sensitive only to meropenem. The patient was admitted, started on antibiotic. She is currently on fluconazole and meropenem 1 gram q.8. She has no complaints at present time. REVIEW OF SYSTEMS: HEENT: Negative. PULMONARY: Negative. CARDIAC: Negative. : Negative. SKIN: There is no rash. PHYSICAL EXAMINATION: GENERAL: She is currently alert, oriented, does not seem to be in acute distress. VITALS: Stable, afebrile. HEENT: Normocephalic. She does not appear icteric. NECK: Supple. No JVD. No lymphadenopathy. No thyromegaly. CHEST: Clear bilaterally. HEART: S1 and S2. No S3, no S4. No murmur. ABDOMEN: Soft. Bowel sounds present. No tenderness. EXTREMITIES: No edema. LABS: Sodium 138, potassium 3.9, creatinine 0.94. White count 9.47, hemoglobin 11.3. Blood cultures negative. IMPRESSION: I think the patient has bacteruria. The patient has nephrostomy. She is currently on meropenem. I think she could be discharged with meropenem 500 IV q.8 for one week, Diflucan 200 mg p.o. daily for one week. Discontinue PICC line. Patient is colonized with this bacteria. Discussed with the patient. There is no need to recheck cultures. To see me as an outpatient in three weeks. Job#: [id number]
[2017-09-21] MEDS ORDERED: MIDAZOLAM HCL 2 MG/2 ML VIAL ONE (13:04)
[2017-09-21] MEDS ORDERED: LIDOCAINE HCL 2% LOCAL 20 ML VIAL ONE (13:05)
[2017-09-21] MEDS ORDERED: SODIUM CHLORIDE 0.9% 500ML 500 ML ONE (13:05)
[2017-09-21] MEDS ORDERED: FENTANYL CITRATE/PF 100MCG/2 ML INJ ONE (13:05)
[2017-09-22] VITALS (8 sets, daily range): BP systolic 107–133; BP diastolic 70–89
[2017-09-22] MEDS: MEROPENEM 1 GM VIAL IV SCH ×3 (06:30→21:30)
[2017-09-22] MEDS: SODIUM CHLORIDE 0.9% 1000ML 1,000 ML IV SCH ×3 (06:30→23:51)
--- NOTE | 2017-09-22 07:33 | Diagnostic Imaging Report ---
Nephrostomy catheter evaluation and fluoroscopic exchange Pre-Procedure Diagnosis: Cervical cancer status post radiation therapy with right ureteral stenosis. Post-procedure Diagnosis:Cervical cancer status post radiation therapy with right ureteral stenosis Emergency Medicine Specialist: Екатерина Barnes MD Video Presentation Operator: None Sedation: Local 5 cc of 1% subcutaneous lidocaine Radiation Dose:235 cGycm2 (Dose Area Product) Fluoroscopy time 1.1 minutes Estimate blood loss: None Blood administered: None Complications: No immediate complications Implants/Grafts: 10 Fr UreSil Specimen: None Procedure: Informed consent was obtained and the patient positioned prone in the fluoroscopy suite. A timeout was performed. The indwelling right nephrostomy was prepped and draped in standard fashion. Diagnostic antegrade nephrostogram was performed nephrostomy. See findings below. An Amplatz wire was placed to secure access. The existing catheter was removed demonstrating cloudy fluid and encrustation. A new 10 Fr nephrostomy catheter was coiled in the renal pelvis with fluoroscopic contrast injection confirming position. At the end of the procedure the catheter was connected to gravity drainage and a sterile dressing applied. The patient tolerated the procedure well and without immediate complication. Findings: Antegrade nephrostogram: Patent catheter. No hydronephrosis. Diffuse right ureteral stenosis with distal occlusion, as before. The catheter was encrusted with debris with cloudy urine. Impression: Right nephrostomy catheter exchange with fluoroscopic guidance as above. Recommendations: Routine catheter exchange in 8-10 weeks. Signed by: Dr. Екатерина Barnes MD on 09/22/2017 7:29 AM
[2017-09-22] MEDS: OXYBUTYNIN CHLORIDE 5 MG TAB PO SCH ×2 (08:32→16:19)
[2017-09-22] MEDS: FLUCONAZOLE 400MG/200ML BAG 200 ML IV SCH (13:00)
[2017-09-22] MEDS: MORPHINE SULFATE 2 MG/ML SYR IV PRN ×2 (13:08→21:30)
[2017-09-22] MEDS: ONDANSETRON HCL INJ 2 MG/ML VIAL IV PRN ×2 (13:08→21:30)
[2017-09-23] VITALS (7 sets, daily range): BP systolic 111–135; BP diastolic 74–90
[2017-09-23] MEDS: MEROPENEM 1 GM VIAL IV SCH ×2 (05:56→14:39)
[2017-09-23] MEDS: MORPHINE SULFATE 2 MG/ML SYR IV PRN (07:48)
[2017-09-23] MEDS: OXYBUTYNIN CHLORIDE 5 MG TAB PO SCH ×2 (08:56→17:20)
[2017-09-23] MEDS: FLUCONAZOLE 400MG/200ML BAG 200 ML IV SCH (12:56)
[2017-09-23] MEDS ORDERED: MEROPENEM1 GM IV (17:55)
--- NOTE | 2017-10-23 02:03 | Discharge Summary ---
CHIEF COMPLAINT: Nephrostomy complications. FINAL DIAGNOSES 1. Sepsis. 2. Urinary tract infection. 3. Status post nephrostomy tube exchange. PROCEDURES 1. Cystoscopy, retrograde pyelogram, and replacement of nephrostomy tube. 2. Placement of central line catheter. DISPOSITION: Home. HOSPITAL COURSE: A 56-year-old female with known history of hyperlipidemia, anxiety, history of CA of cervix, status post radiation has right nephrostomy tube placement and was brought to the ER with a 2- to 3-day history of fever, generalized weakness and pain. Was seen by her PCP, was diagnosed with a UTI, was given p.o. antibiotics, failed to improve, now presents to the ER. In the ER, patient was evaluated, studies were performed, noted right nephrostomy tube was in place. With further review, patient was admitted for evaluation regarding generalized myalgias, UTI, fungemia, and hyperlipidemia. Will undergo urine cultures. Begin IV antibiotic coverage. Request a urology follow. With admission, regarding concerns of bacteriuria, Dr. Mar was asked to see the patient from an infectious disease standpoint. With his review, he feels the patient has bacteriuria, on board nephrostomy, currently is receiving meropenem. Feels the patient could be discharged and receive meropenem on an outpatient basis for 1 week with continuation of Diflucan for 1 week. Feels the patient is colonized with this bacteria. While she was in the ER, she was being also seen by Dr. Darby, urology. With this noted history of severe right ureteral stenosis, failed stents, failed double stent, failed penicillin treatment, agree with current care. From the ER hold, patient was placed on the med/surg floor, was on a regular diet. Was receiving IV fluids, receiving medications for pain. Was placed on ceftriaxone 1 g daily. Laboratory studies were stable. Underwent urology studies. She was beginning to feel slightly better. Continuing with the Rocephin. Laboratory studies remained stable. The bacteria in the urine was noted to be ESBL. Also with the presence of candidiasis. The patient was started on fluconazole. As the cultures presented themselves, the patient was taken off the Rocephin and was switched over to meropenem. PICC line was being placed. Arrangements were being made for outpatient antibiotic coverage through Dr. Mar as well as case management. The organism in the urine was finally named. It was given the name of klebsiella. Tolerated the new nephrostomy tube well. Patient will be receiving 7 more days at home of meropenem. Was then cleared for discharge once stabilized. She was released home on September 23, 2017, in good condition. Initial procedure was cystoscopy with retrograde pyelograms, insertion of left stent. She was taken back to surgery where she had the right nephrostomy tube changed due to complications. She did well post procedure. She can be cleared for discharge. She can be given antibiotics at home. This is being set up through Dr. Mar as well as case management as mentioned. The PICC line was placed before her discharge and she was released on September 23, 2017. With discharge, she will continue on her current diet. Released with the PICC line in place. Activity level as directed by myself as well as Dr. Darby and Dr. Mar. She will be following back up with Dr. Darby as directed, following back up with her PCP within 7 to [address] Mar's office the day following discharge. She will be continuing on 1. Acetaminophen 325 two tablets every 4 hours as needed for temperature and pain control. 2. Tylenol No. 3, 300-mg tablet, 2 tablets every 6 hours as needed for pain. 3. Lisinopril 2.5 mg daily. 4. She will be receiving the meropenem 500 mg every 8 hours. Dictated by: TERESA Martinez Job#: [id number]
--- NOTE | 2017-11-10 11:11 | Operative Report ---
DATE OF PROCEDURE: September 18, 2017 PREOPERATIVE DIAGNOSES 1. Left vesicoureteric reflux. 2. Left hydronephrosis. 3. Urinary tract infections. 4. Atrophic (senile) vaginitis. PROCEDURES PERFORMED 1. Cystogram. 2. Interpretation of cystography. 3. Cystourethroscopy with bilateral ureteral catheterization and retrograde ureteropyelography (separate procedure performed for the urinary tract infections). 4. Cystourethroscopy with insertion of left indwelling ureteral stent (separate procedure performed for the hydronephrosis). 5. Pelvic examination under anesthesia. 6. Interpretation of retrograde ureteropyelography. 7. Supervision of fluoroscopy. No radiologist present. ANESTHESIA: General. COMPLICATIONS: None. CLINICAL SUMMARY: Rita Heredia is a 56-year-old woman with right ureteral stricture, bilateral hydronephrosis, new hydronephrosis on the left-hand side, complicated urinary tract infections. She is brought for evaluation. She is aware of the risks of bleeding, infection, injury to adjacent structures, need for additional procedures and elected to proceed. OPERATIVE PROCEDURE IN DETAIL: Informed consent was verified. Rita Heredia was properly identified, taken to the operating room and placed on the cystoscopy table in the supine position. Anesthesia was uneventfully begun. The patient was then carefully and gently repositioned in the dorsal lithotomy position with all pressure points well padded. Her genitalia were prepared and draped in the usual sterile fashion. The 22.5-Arabic cystourethroscope sheath with obturator in place was atraumatically inserted into the patient's urethra, and the bladder was drained. Contrast was then injected via the cystoscope, performing cystography. Interpretation of cystography: The bladder was very small capacity. There was immediate reflux to the left kidney with ureteral tortuosity and caliceal blunting. This a grade-4 reflux. There was a slight reflux into the distal right ureter, but there was no reflux beyond that. An 8-Arabic catheter was used to cannulate each ureter, and retrograde ureteral pyelograms were performed. Interpretation of retrograde ureteropyelography: Contrast was instilled in retrograde fashion bilaterally. The very distal right ureter was unremarkable. There was a stricture beyond that. Contrast was not opacified beyond that. On the left-hand side, there was severe hydroureteronephrosis down to the level of the patient's bladder. No filling defects and no suspicious lesions were identified. With cystoscopic and fluoroscopic guidance, a left-sided indwelling ureteral stent was then placed. It was coiled in the patient's kidney as well as the patient's bladder. The retaining suture was cut short. A Echeverria catheter was placed. Pelvic examination under anesthesia revealed atrophic vaginitis. No suspicious mucosal lesions were identified. There were no abnormal palpable pelvic masses that could be appreciated. Patient was then uneventfully reversed from anesthesia and taken to the recovery room in stable condition. There were no complications to the procedure. The patient tolerated the procedure well. We will follow the patient up for both management of right nephrostomy as well as management of her stent and evaluation of her kidney function. Job#: [id number]
--- OUTSIDE RECORDS SUMMARY | 2017-11-12 00:35 | XMS REPORT | Continuity of Care Document ---
Author Author [facility] Organization [facility] Address [address] [place] [address] Phone Unavailable Care Team Providers Care Social Work Msw Name Role Phone KEVIN RICKS M.D. PCP Insurance Providers Guarantor Wsely Heredia Address [address] [place] [address] Email [email or web address] Payer Blue [employer] Exchange Policy Number [id number] Subscriber's Name Wesly Heredia Relationship 18 Self / Same As Patient Group Number [id number] Group Name UNEMPLOYED Effective Date 17 Advance Directives Directive Response Recorded Date/Time Does the patient have an advance directive? No 03/11/17 10:42am If yes, is advance directive on file with [facility]? No 12/27/16 10:08pm If not on file with [facility] will patient provide a copy? No 08/10/17 5:18pm Do you have a Directive to Physician? No 08/10/17 5:18pm Do you have a Medical Power of Mathematics Faculty Member? No 08/10/17 5:18pm Do you have an out of hospital Do Not Resuscitate Order? No 08/10/17 5:18pm Do you have any special needs we should be aware of? No 08/10/17 5:18pm Do you have a support person here with you today? Yes 08/10/17 5:18pm Did patient receive Notice of Privacy Practices? Yes 08/10/17 5:18pm Did patient receive patient rights and responsibilities? Yes 08/10/17 5:18pm Problems Medical Problem Onset Date Status Colitis [...] D3) 50,000 Unit Capsule, 1 Cap Oral Rn Intern Discontinued Ciprofloxacin Hcl (Cipro) 500 Mg Tablet, [...] information available. Plan of Care Discharge Date 08/10/17 6:25pm Disposition HOME, SELF-CARE Condition at Discharge Stable Instructions/Education Provided Back Pain Forms Provided Work/School Excuse Prescriptions See Medication Section Referrals JARET ESPINOSA MD Address: [address] [place] [id number] Additional Instructions/Education CLINICAL IMPRESSION Acute urinary tract infection with cystitis associated with indwelling catheter. No hematuria. DISCHARGE INSTRUCTIONS Prescription Medications: Ceftin 500 mg: take 1 tab orally every 12 hours for 10 days. No refill. Tylenol with Codeine Tylenol #3 (30 mg / 300 mg) : take 1-2 tablets orally every 6 hours as needed for acute pain. Dispense thirty (30). No refill. Substitution is permissible. Functional Status No functional status information available. Allergies, Adverse Reactions, Alerts No known allergies. Immunizations No immunization information available. Vital Signs Acute Vital Signs Vital Response Date/Time Temperature (Fahrenheit) 97.6 degrees F (97.6 - 99.5) 03/14/2017 12:00pm Pulse Pulse Rate (adult) 67 bpm (60 - 90) 08/10/2017 6:23pm Respiratory Rate 16 bpm (12 - 24) 08/10/2017 6:23pm Blood Pressure 100/64 mm Hg 08/10/2017 6:23pm Height 5 ft 0 in 08/10/2017 1:10pm Weight 185 lb 08/10/2017 1:10pm Body Mass Index 36.1 kg/m^2 08/10/2017 1:10pm Results Laboratory Results Test Name Result Units Flags Reference Collection Date/Time Result Date/ Time Comments Activated Partial Thromboplast Time 30.6 seconds 23.8-35.5 [...] 70-120 12/31/2016 10:55am 12/31/2016 8:10pm Meter ID: [id number] Human Chorionic Gonadotropin, Quant 1.95 mIU/mL 0-10 12/31/2016 6:33am 12/31/2016 8:13am Urine Calcium Oxalate Crystals RARE FEW 03/11/2017 1:00am 03/11/2017 1:52am Magnesium Level 1.8 MG/DL 1.3-2.1 03/11/2017 1:45am 03/11/2017 2:24am Urine Test NEGATIVE NEGATIVE 04/12/2017 2:28pm 04/12/2017 3 :23pm White Blood Count 7.92 x10e3/uL 4.8-10.8 08/10/2017 1:55pm 08/10/2017 2 :17pm Red Blood Count 4.05 x10e6/uL 3.6-5.1 08/10/2017 1:55pm 08/10/2017 2: 17pm Hemoglobin 10.4 g/dL L 12.0-16.0 08/10/2017 1:55pm 08/10/2017 2:17pm Hematocrit 33.0 % L 34.2-44.1 08/10/2017 1:55pm 08/10/2017 2:17pm Mean Corpuscular Volume 81.5 fL 81-99 08/10/2017 1:55pm 08/10/2017 2: 17pm Mean Corpuscular Hemoglobin 25.7 pg L 28-32 08/10/2017 1:55pm 2017 2:17pm Mean Corpuscular Hemoglobin Concent 31.5 g/dL 31-35 08/10/2017 1:55pm 08/10/2017 2:17pm Red Cell Distribution Width 15.7 % H 11.7-14.4 08/10/2017 1:55pm 2017 2:17pm Platelet Count 334 x10e3/uL 140-360 08/10/2017 1:pm 08/10/2017 2: 17pm Neutrophils (%) (Auto) 65.1 % 38.7-80.0 08/10/2017 1:55pm 08/10/2017 2: 17pm Lymphocytes (%) (Auto) 27.3 % 18.0-39.1 08/10/2017 1:pm 08/10/2017 2: 17pm Monocytes (%) (Auto) 4.9 % 4.4-11.3 08/10/2017 1:pm 08/10/2017 2: 17pm Eosinophils (%) (Auto) 1.8 % 0.0-6.0 08/10/2017 1:pm 08/10/2017 2: 17pm Basophils (%) (Auto) 0.6 % 0.0-1.0 08/10/2017 1:55pm 08/10/2017 2:17pm IM GRANULOCYTES % 0.3 % 0.0-1.0 08/10/2017 1:55pm 08/10/2017 2:17pm Neutrophils # (Auto) 5.2 2.1-6.9 08/10/2017 1:55pm 08/10/2017 2:17pm Lymphocytes # (Auto) 2.2 1.0-3.2 08/10/2017 1:55pm 08/10/2017 2:17pm Monocytes # (Auto) 0.4 0.2-0.8 08/10/2017 1:55pm 08/10/2017 2:17pm Eosinophils # (Auto) 0.1 0.0-0.4 08/10/2017 1:55pm 08/10/2017 2:17pm Basophils # (Auto) 0.1 0.0-0.1 08/10/2017 1:55pm 08/10/2017 2:17pm Absolute Immature Granulocyte (auto 0.02 x10e3/uL 0-0.1 08/10/2017 1: 55pm 08/10/2017 2:17pm Urine Color YELLOW YELLOW 08/10/2017 4:10pm 08/10/2017 4:38pm Urine Clarity TURBID H CLEAR 08/10/2017 4:10pm 08/10/2017 4:38pm Urine Specific [place] 1.030 H 1.010-1.025 08/10/2017 4:10pm 2017 4:38pm Urine pH 6 5 - 7 08/10/2017 4:10pm 08/10/2017 4:38pm Urine Leukocyte Esterase 2+ H NEGATIVE 08/10/2017 4:10pm 08/10/2017 4: 38pm Urine Nitrite POSITIVE H NEGATIVE 08/10/2017 4:10pm 08/10/2017 4:38pm Urine Protein 3+ H NEGATIVE 08/10/2017 4:10pm 08/10/2017 4:38pm Urine Glucose (UA) NEGATIVE NEGATIVE 08/10/2017 4:10pm 08/10/2017 4: 38pm Urine Ketones NEGATIVE NEGATIVE 08/10/2017 4:10pm 08/10/2017 4:38pm Urine Urobilinogen 0.2 mg/dL 0.2 - 1 08/10/2017 4:10pm 08/10/2017 4: 38pm Urine Bilirubin NEGATIVE NEGATIVE 08/10/2017 4:10pm 08/10/2017 4: 38pm Urine Blood 3+ H NEGATIVE 08/10/2017 4:10pm 08/10/2017 4:38pm Urine WBC >50 /HPF H 0-5 08/10/2017 4:00pm 08/10/2017 4:50pm Urine RBC 11-20 /HPF H 0-5 08/10/2017 4:00pm 08/10/2017 4:50pm Urine Bacteria MODERATE /HPF H NONE 08/10/2017 4:00pm 08/10/2017 4:50pm Urine Epithelial Cells NONE /LPF NONE 08/10/2017 4:00pm 08/10/2017 4: 50pm Urine Amorphous Sediment MODERATE H FEW 08/10/2017 1:50pm 08/10/2017 2 :31pm Urine White Blood Cell Casts 1-5 H 0 08/10/2017 4:00pm 08/10/2017 4: 50pm Sodium Level 139 mmol/L 136-145 08/10/2017 1:55pm 08/10/2017 2:37pm Potassium Level 3.9 mmol/L 3.5-5.1 08/10/2017 1:55pm 08/10/2017 2:37pm Chloride Level 105 mmol/L 98-107 08/10/2017 1:55pm 08/10/2017 2:37pm Carbon Dioxide Level 23 mmol/L 22-29 08/10/2017 1:55pm 08/10/2017 2: 37pm Anion Gap 14.9 mmol/L 8-16 08/10/2017 1:55pm 08/10/2017 2:37pm Blood Urea Nitrogen 13 mg/dL 7-26 08/10/2017 1:55pm 08/10/2017 2:37pm Creatinine 0.85 mg/dL 0.57-1.11 08/10/2017 1:55pm 08/10/2017 2:37pm BUN/Creatinine Ratio 15 6-25 08/10/2017 1:55pm 08/10/2017 2:37pm Estimat Glomerular Filtration Rate > 60 ML/MIN 60- 08/10/2017 1:55pm 2:37pm Ranges were taken from the National Kidney Disease Education Program and the National Kid[employer] Foundation literature. Reference ranges: 60 or greater: Normal 16-59 (for 3 consecutive months): Chronic kidney disease 15 or less: Kidney failure Glucose Level 191 mg/dL H 74-118 08/10/2017 1:55pm 08/10/2017 2:37pm Calcium Level 9.7 mg/dL 8.4-10.2 08/10/2017 1:55pm 08/10/2017 2:37pm Total Bilirubin 0.5 mg/dL 0.2-1.2 08/10/2017 1:55pm 08/10/2017 2:37pm Aspartate Amino Transf (AST/SGOT) 20 IU/L 5-34 08/10/2017 1:55pm 2017 2:37pm Alanine Aminotransferase (ALT/SGPT) 19 IU/L 0-55 08/10/2017 1:55pm 03/2017 2:37pm Total Protein 8.2 g/dL H 6.5-8.1 08/10/2017 1:55pm 08/10/2017 2:37pm Albumin 3.3 g/dL L 3.5-5.0 08/10/2017 1:55pm 08/10/2017 2:37pm Globulin 4.9 g/dL H 2.3-3.5 08/10/2017 1:55pm 08/10/2017 2:37pm Albumin/Globulin Ratio 0.7 L 0.8-2.0 08/10/2017 1:55pm 08/10/2017 2: 37pm Alkaline Phosphatase 88 IU/L 40-150 08/10/2017 1:55pm 08/10/2017 2: 37pm Amylase Level 51 U/L 25-125 08/10/2017 1:55pm 08/10/2017 2:37pm Lipase 27 U/L 8-78 08/10/2017 1:55pm 08/10/2017 2:37pm Microbiology Results Procedure Source Organism/Result Collection Date/Time Result Date/Time Result Status Urine Culture Urine,Random KLEBSIELLA PNEUMONIAE-ESBL 12/27/2016 11:54am 12/29/2016 7:41am Final Blood Culture Blood NO GROWTH AFTER 5 DAYS, FINAL REPORT 12/28/2016 5:25pm 01/02/2017 5:29pm Final Urine Culture Urine,Clean Catch VALERIO ALBICANS 03/11/2017 1:00am 2017 6:13am Final Urine Culture Urine,Kidney VALERIO ALBICANS 03/12/2017 8:30am 03/15/2017 6 :21am Final Procedures Procedure Status Date Provider(s) CHANGE DRAINAGE DEVICE IN KIDNEY, EXTERNAL APPROACH Completed 11/05/16 JARET ESPINOSA MD INSERTION OF INFUSION DEV INTO SUP VENA CAVA, PERC APPROACH Completed CARLA ASTUDILLO MD DRAINAGE OF RIGHT KIDNEY PELVIS, PERCUTANEOUS APPROACH Completed 12/29/16 OSIEL SULLIVAN MD CHANGE DRAINAGE DEVICE IN KIDNEY, EXTERNAL APPROACH Completed 03/11/17 LIZ MUÑIZ MD EXCHANGE NEPHROSTOMY CATH Completed 07/03/17 CT of abdomen and pelvis without contrast Active 03/11/17 LIZ MUÑIZ MD CT of abdomen and pelvis without contrast Active 04/12/17 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 Encounter Location Arrival/Admit Date Discharge/Depart Date Attending Provider Registered Emergency Room [facility] 08/10/17 1:10pm CHRISTINA BHATIA MD Departed Emergency Room [facility] 07/16/17 2:07am 2:38am IRMA KINNEY MD Departed Emergency Room [facility] 07/05/17 12:59pm 07/05 1:01pm ARIA ROCHE MD Registered Surgical Day Care [facility] 07/03/17 7:21am CARLA ASTUDILLO MD Registered Surgical Day Care [facility] 07/01/17 11:08am OSIEL SULLIVAN MD Departed Emergency Room [facility] 04/12/17 1:23pm 5:28pm JUDAH FRAGOSO MD Discharged Inpatient [facility] 03/11/17 6:30am 03/14/17 2:25pm VIKY MONTOYA MD Discharged Inpatient [facility] 12/27/16 8:18pm 12/31/16 2:28pm CARLIE NIX MD Discharged Inpatient [facility] 11/06/16 7:17am 11/06/16 5:05pm CARLIE NIX MD
== END 2017-09-23 18:35 | disposition home or self-care (01) | DRG 698 ==
LOC: ER 14:55 → ERHOLD 09-18 01:04 → MED/SURG 09-18 12:44 → MED/SURG3 09-20 09:05
PROC: BT141ZZ Fluoroscopy of Kidneys, Ureters and Bladder using Low Osmolar Contrast (ICD-10-PCS; 2017-09-18)
PROC: 0T778DZ Dilation of Left Ureter with Intraluminal Device, Via Natural or Artificial Opening Endoscopic (ICD-10-PCS; 2017-09-18)
PROC: 0T788ZZ Dilation of Bilateral Ureters, Via Natural or Artificial Opening Endoscopic (ICD-10-PCS; 2017-09-18)
PROC: 0T25X0Z Change Drainage Device in Kidney, External Approach (ICD-10-PCS; principal; 2017-09-21)
PROC: 02HV33Z Insertion of Infusion Device into Superior Vena Cava, Percutaneous Approach (ICD-10-PCS; 2017-09-21)
DX: T83.512A Infection and inflammatory reaction due to nephrostomy catheter, initial encounter (principal); A41.89 Other specified sepsis; N12 Tubulo-interstitial nephritis, not specified as acute or chronic; N13.4 Hydroureter; B37.49 Other urogenital candidiasis; R30.0 Dysuria; B96.1 Klebsiella pneumoniae [K. pneumoniae] as the cause of diseases classified elsewhere; Z16.12 Extended spectrum beta lactamase (ESBL) resistance; E78.5 Hyperlipidemia, unspecified; Z85.41 Personal history of malignant neoplasm of cervix uteri; N20.0 Calculus of kidney; E66.9 Obesity, unspecified; Z68.36 Body mass index [BMI] 36.0-36.9, adult; D64.9 Anemia, unspecified; F41.9 Anxiety disorder, unspecified; N32.89 Other specified disorders of bladder; G89.29 Other chronic pain; N13.70 Vesicoureteral-reflux, unspecified
CPT/HCPCS: 36415; 36569; 50435; 71045; 74018; 74176; 74425; 74430; 74470; 80048; 81001; 84702; 85025; 87086; 87186; 96361; 99284; C1729; C2617; J0696; J1100; J1170; J1450; J2001; J2185; J2250; J2270; J2405; J7030; J7040

== ENCOUNTER → 2017-11-05 | Outpatient (CLI) | payer BC ==
[~2017-11-05] MED LIST changes: +MEROPENEM1 GM IV
--- NOTE | 2017-11-05 20:15 | Diagnostic Imaging Report ---
Renal Scan Reason for exam: 57 F with vesicoureteral reflux. Radiopharmaceutical: Tc-99m MAG3 11 mCi Report: After administration of the radiopharmaceutical, dynamic images of the kidneys were obtained through 40 minutes. LEFT KIDNEY: Perfusion is prompt. The left kidney has a reniform shape with irregular contours and mild thinning of the renal cortex, more apparent in the upper pole. Extraction of tracer from the blood pool is mildly decreased. Clearance of tracer from the renal parenchyma is prompt. The pelvicaliceal system is very mildly dilated. Some increase in pooling of tracer is seen within the pelvicaliceal system. Drainage of tracer from the pelvicaliceal system is adequate. No stasis of tracer is seen in the left ureter. RIGHT KIDNEY: A PERCUTANEOUS NEPHROSTOMY CATHETER IN THE RIGHT KIDNEY IS OPEN DURING THE STUDY. Perfusion to the right kidney is prompt. The kidney has a distorted reniform shape with moderate thinning of the renal cortex and irregular contours. The kidney is smaller than the left kidney. Extraction of tracer from the blood pool is mildly decreased. Clearance of tracer from the renal parenchyma is prompt. The pelvicaliceal system does not appear dilated although calices in the upper pole are slightly prominent. Tracer drains freely in the PCN catheter so the renal pelvis is not adequately evaluated. There is no significant increase in pooling of tracer within the pelvicaliceal system. Drainage of tracer from the pelvicaliceal study cannot be assessed because of the open PCN tube. No tracer is seen in the right ureter. DIFFERENTIAL RENAL FUNCTION: Left kidney 62% and right kidney 38% (normal 43-57%. Impression: 1. The left kidney shows evidence of mild medical renal disease and some scarring. Mild hydronephrosis is present. Obstruction is not suspected. 2. The right kidney shows evidence of mild medical renal disease. The kidney shows significant scarring and this accounts for the decreased differential function of 38%. Hydronephrosis cannot be assessed because an open PCN is draining the pelvicaliceal system throughout the study. Signed by: Dr. Luzmaria Tay M.D. on 11/05/2017 8:12 PM
== END ==
LOC: NM 15:08
PROVIDERS: ATTEND Urology
DX: N13.71 Vesicoureteral-reflux without reflux nephropathy (principal); N13.1 Hydronephrosis with ureteral stricture, not elsewhere classified; N13.5 Crossing vessel and stricture of ureter without hydronephrosis
CPT/HCPCS: 78707; A9562

== ENCOUNTER 2017-11-14 20:27 | Emergency (ER) | payer BC ==
[~2017-11-14] VITALS: Ht 152.4 cm; Wt 84.8 kg
--- OUTSIDE RECORDS SUMMARY | 2017-11-24 11:23 | XMS REPORT | Continuity of Care Document ---
Author Author [facility] Interface Address Unknown Phone Unavailable Problems Problem Status Onset Date Classification Date Reported Comments Source Discharge Diagnosis: 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 03/09/2015 03/12/2015 [facility] GEN. PAIN Active 03/09/2015 [facility] Discharge Diagnosis: Urinary tract infection, site not specified 02/15/2015 02/18/2015 [facility] WEAKNESS Active 02/15/2015 [facility] MRSA<sup>1</sup> Active Problem 03/12/2015 Problem added by Discern Expert. [facility] Medications Medication Details Route Status Patient Instructions Ordering Provider Order Date Source Ativan 1 mg, Route: PO, Drug form: TAB, ONCE, Dosing Weight 86.364, kg, Priority: STAT, Start date: 03/09/15 23:44:00, Stop date: 03/09/15 23:44:00 No Longer Active 03/10/2015 [facility] tramadol hydrochloride 50 MG Oral Tablet 50 mg=1 tab, PO, BID, X 15 day, # 30 tab, 0 Refill(s) Active 03/10/2015 [facility] tramadol hydrochloride 50 MG Oral Tablet [Ultram] 1 - 2 tabs, PO, Q4-6H, PRN as needed for pain, X 7 day, # 12 tab, 0 Refill(s) Active 02/16/2015 [facility] Sulfamethoxazole 800 MG / Trimethoprim 160 MG Oral Tablet [Bactrim] 1 tab, PO, BID, # 20 tab, 0 Refill(s) Active 02/16/2015 [facility] Rocephin 1 gm, Route: IM, ONCE, Dosing Weight 84.091, kg, Start date: 02/15/15 17:48:00, Stop date: 02/15/15 17:48:00 Inactive 02/15/2015 [facility] Ondansetron 4 mg, 2 mL, Route: IVP, Drug form: INJ, ONCE, Dosing Weight 84.091, kg, Priority: STAT, Start date: 02/15/15 15:36:00, Stop date: 02/15/15 15:36:00Notes: (Same as: Wiley) MEDICATION WASTE Product Size: 4 mg Product Wasted: ___ mg Inactive 02/15/2015 [facility] Sodium Chloride 0.154 MEQ/ML Injectable Solution 1,000 mL, 1000 ml/hr, Infuse Over: 1 hr, Route: IV, 1,000, Drug form: INJ, ONCE, Priority: STAT, Dosing Weight 84.091 kg, Start date: 02/15/15 15:36:00, Duration: 1 doses or times, Stop date: 02/15/15 15:36:00 Inactive 02/15/2015 [facility] Saline Flush 0.9% 10 mL, Route: IVP, Drug Form: INJ, Dosing Weight 84.091, kg, PRN, PRN Line Flush, Start date: 02/15/15 15:36:00, Duration: 30 day, Stop date: 03/17/15 15:35:00Notes: Same as: BD Posiflush Sterile Inactive 02/15/2015 [facility] Allergies, Adverse Reactions, Alerts Substance Category Reaction Severity Reaction type Status Date Reported Comments Source diphenhydrAMINE Assertion Drug allergy Active [facility] Immunizations Immunization Date Given Site Status Last Updated Comments Source Results Order Name Results Value Reference Range Date Interpretation Comments Source URINE AND STOOL UA Urobilinogen <=1.0 mg/dL 0.1 - 1.0 02/15/2015 [facility] URINE AND STOOL UA Protein 100 mg/dL Negative mg/dL 02/15/2015 [facility] URINE AND STOOL UA Glucose Negative mg/dL Negative mg/dL 02/15/2015 [facility] URINE AND STOOL UA Ketones Negative mg/dL Negative mg/dL 02/15/2015 [facility] URINE AND STOOL UA Bili Negative *NA* (02/15/15 4:54 PM) Negative 02/15/2015 [facility] URINE AND STOOL UA Blood Moderate *ABN* (02/15/15 4:54 PM) Negative 02/15/2015 [facility] URINE AND STOOL UA Nitrite Positive *ABN* (02/15/15 4:54 PM) Negative 02/15/2015 [facility] URINE AND STOOL UA Leuk Est Large *ABN* (02/15/15 4:54 PM) Negative 02/15/2015 [facility] URINE AND STOOL UA Sq Epi Few /LPF Few /LPF 02/15/2015 [facility] URINE AND STOOL UA WBC null 0 - 5 02/15/2015 [facility] URINE AND STOOL UA RBC 155 /HPF 0 - 2 02/15/2015 [facility] URINE AND STOOL UA Bacteria Many /HPF None Seen /HPF 02/15/2015 [facility] URINE AND STOOL UA WBC Cast 34 /LPF <=0 /LPF 02/15/2015 [facility] URINE AND STOOL UA Mucus Few /LPF None Seen /LPF 02/15/2015 [facility] URINE AND STOOL UA Color Yellow *NA* (02/15/15 4:54 PM) Yellow 02/15/2015 [facility] URINE AND STOOL UA Turbidity Marked *ABN* (02/15/15 4:54 PM) Clear 02/15/2015 [facility] URINE AND STOOL UA pH 5.0 5.0 - 8.0 02/15/2015 [facility] URINE AND STOOL UA Spec Grav 1.018 <=1.030 02/15/2015 [facility] CHEM PANEL A/G Ratio 0.6 0.7 - 1.6 02/15/2015 [facility] CHEM PANEL Globulin 5.8 g/dL 2.0 - 4.0 02/15/2015 [facility] CHEM PANEL B/C Ratio 12 6 - 25 02/15/2015 [facility] CHEM PANEL AGAP 12.6 meq/L 10.0 - 20.0 02/15/2015 [facility] CHEM PANEL Alk Phos 115 unit/L 39 - 136 02/15/2015 [facility] CHEM PANEL AST 28 unit/L 0 - 37 02/15/2015 [facility] CHEM PANEL Bili Total 0.3 mg/dL 0.2 - 1.3 02/15/2015 [facility] CHEM PANEL eGFR 73 mL/min/1.73m2 02/15/2015 Result Comment: The eGFR is calculated using the CKD-EPI formula. In most young, healthy individuals the eGFR will be >90 mL/min/1.73m2. The eGFR declines with age. An eGFR of 60-89 may be normal in some populations, particularly the elderly, for whom the CKD-EPI formula has not been extensively validated. Use of the eGFR is not recommended in the following populations: Individuals with unstable creatinine concentrations, including patients and those with serious co-morbid conditions. Patients with extremes in muscle mass or diet. The data above are obtained from the National Kidney Disease Education Program (NKDEP) which additionally recommends that when the eGFR is used in patients with extremes of body mass index for purposes of drug dosing, the eGFR should be multiplied by the estimated BMI. [facility] CHEM PANEL ALT 25 unit/L 0 - 65 02/15/2015 [facility] CHEM PANEL Albumin Lvl 3.4 g/dL 3.5 - 5.0 02/15/2015 [facility] CHEM PANEL Total Protein 9.2 g/dL 6.4 - 8.4 02/15/2015 [facility] CHEM PANEL Calcium Lvl 9.1 mg/dL 8.5 - 10.5 02/15/2015 [facility] CHEM PANEL CO2 26 meq/L 24 - 32 02/15/2015 [facility] CHEM PANEL Sodium Lvl 140 meq/L 135 - 145 02/15/2015 [facility] CHEM PANEL Chloride Lvl 106 meq/L 95 - 109 02/15/2015 [facility] CHEM PANEL Potassium Lvl 4.6 meq/L 3.5 - 5.1 02/15/2015 [facility] CHEM PANEL Creatinine Lvl 0.91 mg/dL 0.50 - 1.40 02/15/2015 [facility] CHEM PANEL BUN 11 mg/dL 7 - 22 02/15/2015 [facility] CHEM PANEL Glucose Lvl 118 mg/dL 70 - 99 02/15/2015 [facility] ENDOCRINOLOGY S Preg Negative *NA* (02/15/15 4:40 PM) Negative 02/15/2015 [facility] HEMATOLOGY Lymphocytes 32.8 % 20.0 - 40.0 02/15/2015 [facility] HEMATOLOGY Segs 60.0 % 45.0 - 75.0 02/15/2015 [facility] HEMATOLOGY Eosinophils # 0.2 K/CMM 0.0 - 0.5 02/15/2015 [facility] HEMATOLOGY Basophils # 0.2 K/CMM 0.0 - 0.2 02/15/2015 [facility] HEMATOLOGY Monocytes 4.6 % 2.0 - 12.0 02/15/2015 [facility] HEMATOLOGY Eosinophils 1.2 % 0.0 - 4.0 02/15/2015 [facility] HEMATOLOGY Basophils 1.4 % 0.0 - 1.0 02/15/2015 [facility] HEMATOLOGY Segs-Bands # 7.3 K/CMM 1.5 - 8.1 02/15/2015 [facility] HEMATOLOGY Monocytes # 0.6 K/CMM 0.0 - 0.8 02/15/2015 [facility] HEMATOLOGY Lymphocytes # 4.0 K/CMM 1.0 - 5.5 02/15/2015 [facility] HEMATOLOGY Plt Morph Clumped (02/15/15 4:40 PM) 02/15/2015 [facility] HEMATOLOGY RBC Morph Normal (02/15/15 4:40 PM) 02/15/2015 [facility] HEMATOLOGY MPV 8.7 fL 7.4 - 10.4 02/15/2015 [facility] HEMATOLOGY WBC 12.0 K/CMM 3.7 - 10.4 02/15/2015 [facility] HEMATOLOGY RBC 4.90 M/CMM 4.20 - 5.40 02/15/2015 [facility] HEMATOLOGY Hct 39.0 % 36.0 - 48.0 02/15/2015 [facility] HEMATOLOGY MCV 79.7 fL 80.0 - 98.0 02/15/2015 [facility] HEMATOLOGY Hgb 12.0 g/dL 12.0 - 16.0 02/15/2015 [facility] HEMATOLOGY RDW 14.8 % 11.5 - 14.5 02/15/2015 [facility] MCHC 30.8 g/dL 32.0 - 36.0 02/15/2015 [facility] HEMATOLOGY Platelet 220 K/CMM 133 - 450 02/15/2015 [facility] MCH 24.5 pg 27.0 - 31.0 02/15/2015 [facility] Vital Signs Vital Sign Value Date Comments Source Weight 86.364 03/10/2015 [facility] Temperature Oral (F) 97.9 F 03/10/2015 [facility] Respitory Rate 18 03/10/2015 [facility] Heart Rate 91 03/10/2015 [facility] Systolic (mm Hg) 140 03/10/2015 [facility] Diastolic (mm Hg) 99 03/10/2015 [facility] Temperature Oral (F) 98.4 F 02/16/2015 [facility] Respitory Rate 18 02/16/2015 [facility] Heart Rate 97 02/16/2015 [facility] Systolic (mm Hg) 142 02/16/2015 [facility] Diastolic (mm Hg) 82 02/16/2015 [facility] Systolic (mm Hg) 147 02/15/2015 [facility] Diastolic (mm Hg) 93 02/15/2015 [facility] Weight 84.091 02/15/2015 [facility] BMI Calculated 36.21 02/15/2015 [facility] Height 152.4 cm 02/15/2015 [facility] Heart Rate 76 02/15/2015 [facility] Respitory Rate 18 02/15/2015 [facility] Temperature Oral (F) 98.1 F 02/15/2015 [facility] Encounters Location Location Details Encounter Type Encounter Number Reason For Visit Attending Provider ADM Date DC Date Status Source [facility] [id number] Ceeандрей Feliz 02/15/2015 02/16/2015 [facility] [id number] Kelby Lyons 03/10/2015 03/10/2015 [facility] Procedures Procedure Code Date Perfomer Comments Source
== END 2017-11-14 21:25 | disposition home or self-care (01) ==
LOC: ER 20:27
DX: Z46.6 Encounter for fitting and adjustment of urinary device (principal)
CPT/HCPCS: 51700; 99282

== ENCOUNTER 2017-11-30 16:43 | Inpatient (IN) | payer BC ==
[~2017-11-30] VITALS: Ht 152.4 cm; Wt 88.0 kg
[2017-11-30] MEDS ORDERED: SODIUM CHLORIDE 0.9% 1000ML 1,000 ML IV STA (17:14)
[2017-11-30] MEDS ORDERED: MORPHINE SULFATE INJ 4 MG/ML INJ IV STA (17:14)
[2017-11-30] MEDS ORDERED: ONDANSETRON HCL INJ 2 MG/ML VIAL IV STA (17:14)
[2017-11-30] MEDS ORDERED: CEFTRIAXONE SOD 1 GM VIAL IV ONE (17:15)
[2017-11-30 17:54] LABS: BASOPHILS # (AUTO) 0.1 (0.0-0.1); BASOPHILS % 0.4 % (0.0-1.0); EOSINOPHILS # (AUTO) 0.1 (0.0-0.4); EOSINOPHILS % 0.5 % (0.0-6.0); HEMATOCRIT 34.6 % (34.2-44.1); LYMPHOCYTES # (AUTO) 1.4 (1.0-3.2); LYMPHOCYTES % 10.7 % (18.0-39.1); MEAN CORPUSCULAR HEMOGLOBIN 25.3 pg (28-32); MEAN CORPUSCULAR HGB CONC 31.8 g/dL (31-35); MEAN CORPUSCULAR VOLUME 79.7 fL (81-99); MONOCYTES # (AUTO) 0.9 (0.2-0.8); MONOCYTES % 6.5 % (4.4-11.3); NEUTROPHILS # (AUTO) 10.7 (2.1-6.9); NEUTROPHILS % 81.6 % (38.7-80.0); PLATELET COUNT 360 x10e3/uL (140-360); RED BLOOD COUNT 4.34 x10e6/uL (3.6-5.1); RED CELL DISTRIBUTION WIDTH 15.3 % (11.7-14.4)
--- NOTE | 2017-11-30 18:42 | Diagnostic Imaging Report ---
EXAM: CT Abdomen and Pelvis WITHOUT contrast INDICATION: Left-sided abdominal pain. Kidney stones? Cervical cancer. COMPARISON: . TECHNIQUE: Abdomen and pelvis were scanned utilizing a multidetector helical scanner from the lung base to the pubic symphysis without administration of IV contrast. Absence of intravenous contrast decreases sensitivity for detection of focal lesions and vascular pathology. Coronal and sagittal reformations were obtained. Routine protocol was performed. IV CONTRAST: None. ORAL CONTRAST: Water RADIATION DOSE: Total DLP: 567.26 mGy*cm Estimated effective dose: (DLP x 0.015 x size factor) mSv COMPLICATIONS: None FINDINGS: LINES and TUBES: Right nephrostomy tube with distal tip coiled within the right renal pelvis. Interval placement of a left double-J ureteral stent in adequate position. Pole catheter within the bladder. LOWER THORAX: Costophrenic granuloma in the posterior right lung base. HEPATOBILIARY: No focal hepatic lesions. No biliary ductal dilation. GALLBLADDER: No stomach and observed. No wall thickening. SPLEEN: No splenomegaly. PANCREAS: No focal masses or ductal dilatation. ADRENALS: No adrenal nodules. KIDNEYS/URETERS: 9 mm top within the lower pole of the left kidney. Mild right hydronephrosis new since the prior examinations the presence of a nephrostomy tube. Mild to moderate left hydronephrosis appears unchanged. New left perinephric stranding may reflect pyelonephritis. Left periureteral fat stranding. GI TRACT: No abnormal distention, wall thickening, or evidence of bowel obstruction. Appendix is normal. PELVIC ORGANS/BLADDER: Radiation seeds again observed in the uterine cervix. Urinary bladder is decompressed by a Echeverria catheter. LYMPH NODES: No lymphadenopathy. VESSELS: Unremarkable. PERITONEUM / RETROPERITONEUM: No free air or fluid. BONES: There are degenerative changes in the lumbar spine. SOFT TISSUES: Unremarkable. IMPRESSION: 1. New left perinephric stranding may reflect pyelonephritis. Mild to moderate left hydroureteronephrosis is stable. 2. Interval development of right hydroureteronephrosis in spite of presence of a nephrostomy tube. Please correlate with nephrostomy output. Signed by: Dr. Rivas Victoria M.D. on 11/30/2017 6:39 PM
[2017-11-30 19:15] LABS: ALBUMIN 3.4 g/dL (3.5-5.0); ALBUMIN/GLOBULIN RATIO 0.7 (0.8-2.0); ANION GAP 17.4 mmol/L (8-16); CALCIUM 9.5 mg/dL (8.4-10.2); CREATININE, SERUM 1.44 mg/dL (0.57-1.11); POTASSIUM 3.4 mmol/L (3.5-5.1)
[2017-11-30 19:33] LABS: CLARITY,URINE CLOUDY (CLEAR); COLOR,URINE YELLOW (YELLOW)
[2017-11-30 19:34] LABS: BILIRUBIN,URINE NEGATIVE (NEGATIVE); KETONES,URINE NEGATIVE (NEGATIVE); LEUKOCYTE ESTERASE ,URINE 2+ (NEGATIVE); NITRITE,URINE POSITIVE (NEGATIVE); PROTEIN,URINE DIPSTICK 2+ (NEGATIVE); URINE UROBILINOGEN 0.2 mg/dL (0.2 - 1)
[2017-11-30 19:45] LABS: BACTERIA,URINE MANY /HPF; RBC,URINE 21-50 /HPF (0-5)
[2017-11-30] MEDS ORDERED: PROMETHAZINE 12.5MG/ NACL 0.9% 12.5 MG/50 ML BAG IV PRN (19:45)
[2017-11-30] MEDS ORDERED: DIPHENHYDRAMINE HCL INJ 50 MG/ML VIAL IV PRN (19:45)
[2017-11-30] MEDS ORDERED: HYDROMORPHONE 2MG/ML 2 MG/ML ML IV PRN (19:45)
[2017-11-30] MEDS ORDERED: VANCOMYCIN 1GM/NS 250 ML 250 ML IV ONE (19:45)
[2017-11-30] MEDS ORDERED: ZOLPIDEM TARTRATE 5 MG TAB PO PRN (19:45)
[2017-11-30] MEDS ORDERED: ONDANSETRON HCL INJ 2 MG/ML VIAL IV PRN (19:45)
[2017-11-30] MEDS ORDERED: MEROPENEM 1GM 100 ML IV SCH (19:45)
[2017-11-30] MEDS ORDERED: ACETAMINOPHEN 325 MG TAB PO PRN (19:45)
[2017-11-30] MEDS ORDERED: SODIUM CHLORIDE 0.9% 1000ML 1,000 ML IV SCH (19:45)
[2017-11-30] MEDS ORDERED: SODIUM CHLORIDE 0.9% 100 ML ONE (20:07)
[2017-11-30] MEDS: MEROPENEM 1 GM VIAL IV SCH (20:20)
[2017-11-30] MEDS ORDERED: HYDROMORPHONE 1MG/1ML INJ IV PRN (20:30)
[2017-11-30] MEDS ORDERED: MORPHINE SULFATE 2 MG/ML SYR IV PRN (20:30)
[2017-11-30] MEDS ORDERED: MORPHINE SULFATE INJ 4 MG/ML INJ IV PRN (20:45)
[2017-11-30] MEDS ORDERED: ACETAMINOPHEN 1000 MG/100 ML 100 ML IV ONE (20:55)
[2017-11-30] MEDS ORDERED: ACETAMINOPHEN 1000 MG/100 ML IV ONE (21:05)
[2017-11-30] MEDS: SODIUM CHLORIDE 0.9% 1000ML 1,000 ML IV SCH (23:01)
[2017-12-01] MEDS: SODIUM CHLORIDE 0.9% 1000ML 1,000 ML IV SCH ×3 (00:52→20:41)
[2017-12-01] MEDS: ONDANSETRON HCL INJ 2 MG/ML VIAL IV PRN ×3 (05:05→23:18)
[2017-12-01] MEDS: MEROPENEM 1 GM VIAL IV SCH ×2 (08:00→20:41)
[2017-12-01] MEDS: FAMOTIDINE 20 MG/2 ML VIAL IV SCH ×2 (08:00→17:00)
[2017-12-01 08:07] LABS: BASOPHILS # (AUTO) 0.1 (0.0-0.1); BASOPHILS % 0.3 % (0.0-1.0); EOSINOPHILS % 0.1 % (0.0-6.0); HEMATOCRIT 30.5 % (34.2-44.1); LYMPHOCYTES # (AUTO) 0.8 (1.0-3.2); LYMPHOCYTES % 4.5 % (18.0-39.1); MEAN CORPUSCULAR HEMOGLOBIN 25.8 pg (28-32); MEAN CORPUSCULAR HGB CONC 31.1 g/dL (31-35); MEAN CORPUSCULAR VOLUME 82.9 fL (81-99); MONOCYTES # (AUTO) 0.9 (0.2-0.8); MONOCYTES % 4.9 % (4.4-11.3); NEUTROPHILS # (AUTO) 16.8 (2.1-6.9); NEUTROPHILS % 89.6 % (38.7-80.0); PLATELET COUNT 252 x10e3/uL (140-360); RED BLOOD COUNT 3.68 x10e6/uL (3.6-5.1); RED CELL DISTRIBUTION WIDTH 15.1 % (11.7-14.4)
[2017-12-01 08:12] LABS: HEMOGLOBIN 9.5 g/dL (12.0-16.0)
[2017-12-01 08:22] LABS: ALBUMIN 2.5 g/dL (3.5-5.0); ALBUMIN/GLOBULIN RATIO 0.6 (0.8-2.0); ANION GAP 11.3 mmol/L (8-16); CALCIUM 8.4 mg/dL (8.4-10.2); CREATININE, SERUM 1.15 mg/dL (0.57-1.11); POTASSIUM 3.3 mmol/L (3.5-5.1)
[2017-12-01 09:41] VITALS: BP 131/79
[2017-12-01 13:07] VITALS: BP 127/76
[2017-12-01 15:25] VITALS: BP 105/63
[2017-12-01] MEDS: HYDROMORPHONE 2MG/ML 2 MG/ML ML IV PRN ×2 (17:00→23:18)
[2017-12-01 19:59] VITALS: BP 128/75
[2017-12-02] VITALS (9 sets, daily range): BP systolic 111–147; BP diastolic 57–85
[2017-12-02] MEDS: SODIUM CHLORIDE 0.9% 1000ML 1,000 ML IV SCH ×3 (04:56→19:35)
[2017-12-02] MEDS: MEROPENEM 1 GM VIAL IV SCH ×2 (09:12→20:00)
[2017-12-02] MEDS: FAMOTIDINE 20 MG/2 ML VIAL IV SCH ×2 (09:13→17:38)
[2017-12-02] MEDS: HYDROCODONE/APAP 7.5MG-325MG 1 EA TAB PO PRN (14:30)
[2017-12-02] MEDS ORDERED: POTASSIUM CHLORIDE 20 MEQ TAB CR PO NR (16:45)
[2017-12-03] VITALS (8 sets, daily range): BP systolic 116–153; BP diastolic 74–97
[2017-12-03] MEDS: SODIUM CHLORIDE 0.9% 1000ML 1,000 ML IV SCH ×3 (03:37→23:30)
[2017-12-03] MEDS: HYDROCODONE/APAP 7.5MG-325MG 1 EA TAB PO PRN ×3 (04:02→23:30)
[2017-12-03] MEDS: ONDANSETRON HCL INJ 2 MG/ML VIAL IV PRN (04:02)
[2017-12-03 04:45] LABS: BASOPHILS % 0.4 % (0.0-1.0); EOSINOPHILS # (AUTO) 0.2 (0.0-0.4); EOSINOPHILS % 2.4 % (0.0-6.0); HEMATOCRIT 29.1 % (34.2-44.1); HEMOGLOBIN 9.2 g/dL (12.0-16.0); LYMPHOCYTES # (AUTO) 1.9 (1.0-3.2); LYMPHOCYTES % 23.5 % (18.0-39.1); MEAN CORPUSCULAR HEMOGLOBIN 25.2 pg (28-32); MEAN CORPUSCULAR HGB CONC 31.6 g/dL (31-35); MONOCYTES # (AUTO) 0.5 (0.2-0.8); MONOCYTES % 5.8 % (4.4-11.3); NEUTROPHILS # (AUTO) 5.3 (2.1-6.9); NEUTROPHILS % 67.4 % (38.7-80.0); PLATELET COUNT 244 x10e3/uL (140-360); RED BLOOD COUNT 3.65 x10e6/uL (3.6-5.1); RED CELL DISTRIBUTION WIDTH 14.6 % (11.7-14.4)
[2017-12-03 04:49] LABS: MEAN CORPUSCULAR VOLUME 79.7 fL (81-99)
[2017-12-03 05:15] LABS: ANION GAP 8.7 mmol/L (8-16); BLOOD UREA NITROGEN 6 mg/dL (7-26); BUN/CREATININE RATIO 8 (6-25); CALCIUM 8.9 mg/dL (8.4-10.2); CARBON DIOXIDE 27 mmol/L (22-29); CHLORIDE 103 mmol/L (98-107); CREATININE, SERUM 0.77 mg/dL (0.57-1.11); EST GLOMERULAR FILTRATION RATE > 60 ML/MIN (60-); GLUCOSE 121 mg/dL (74-118); SODIUM 136 mmol/L (136-145)
[2017-12-03 05:23] LABS: POTASSIUM 2.7 mmol/L (3.5-5.1)
[2017-12-03] MEDS ORDERED: POTASSIUM CHLORIDE 20 MEQ TAB CR PO STA (08:09)
[2017-12-03] MEDS: FAMOTIDINE 20 MG/2 ML VIAL IV SCH ×2 (08:30→16:20)
[2017-12-03] MEDS: MEROPENEM 1 GM VIAL IV SCH ×2 (08:30→20:05)
[2017-12-03] MEDS: POTASSIUM CHLORIDE 20 MEQ TAB CR PO SCH ×4 (11:03→16:20)
[2017-12-03] MEDS: VANCOMYCIN 1GM/NS 250 ML 250 ML IV SCH (18:35)
[2017-12-04] VITALS: BP 144/79
[2017-12-04 04:00] VITALS: BP 143/84
[2017-12-04] MEDS: ONDANSETRON HCL INJ 2 MG/ML VIAL IV PRN (04:44)
[2017-12-04 05:06] LABS: ANION GAP 11.5 mmol/L (8-16); BLOOD UREA NITROGEN 6 mg/dL (7-26); BUN/CREATININE RATIO 8 (6-25); CALCIUM 8.8 mg/dL (8.4-10.2); CARBON DIOXIDE 26 mmol/L (22-29); CHLORIDE 107 mmol/L (98-107); CREATININE, SERUM 0.75 mg/dL (0.57-1.11); EST GLOMERULAR FILTRATION RATE > 60 ML/MIN (60-); GLUCOSE 119 mg/dL (74-118); SODIUM 141 mmol/L (136-145)
[2017-12-04 05:07] LABS: POTASSIUM 3.5 mmol/L (3.5-5.1)
[2017-12-04] MEDS: HYDROCODONE/APAP 7.5MG-325MG 1 EA TAB PO PRN (05:45)
[2017-12-04] MEDS: VANCOMYCIN 1GM/NS 250 ML 250 ML IV SCH (06:01)
[2017-12-04 08:00] VITALS: BP 130/80
[2017-12-04] MEDS: FAMOTIDINE 20 MG/2 ML VIAL IV SCH (09:29)
[2017-12-04] MEDS: SODIUM CHLORIDE 0.9% 1000ML 1,000 ML IV SCH (09:29)
[2017-12-04] MEDS: MEROPENEM 1 GM VIAL IV SCH (09:29)
[2017-12-04 11:03] VITALS: BP 130/80
[2017-12-04 12:00] VITALS: BP 121/75
[2017-12-04] MEDS ORDERED: CIPRO500 MG PO (16:08)
--- NOTE | 2018-01-20 01:37 | Discharge Summary ---
CHIEF COMPLAINT: Right flank pain. FINAL DIAGNOSES 1. Sepsis/urinary tract infection. 2. Urostomy. 3. Hypertension. DISPOSITION: Home. Apodl-ltxf[age]knat-old female, history of hypertension, cervical CA, urinary calculus, brought to the ER with complaint of right flank pain. She does have an onboard urostomy. There has been no fever or chills. No nausea or vomiting. No chest pain or shortness of breath. He is a historian of her right nephrectomy. Noted in the ER that her urostomy is in place. Further care and review was given. The patient was admitted to the facility for treatment regarding a left flank pain, UTI, history of urostomy tube, hypertension, history of cervical CA. Will be undergoing urine cultures, begin IV antibiotics. Continue home medications. With her admission, she was being reviewed and followed by urology, Dr. Darby, with issues of the urostomy tube and as well as the flank pain that she was having, the right ureteral stricture. Laboratory studies were showing a potassium to be at 3.3. White cell count was at 18,000. Blood sugar was 210. Hemoglobin was 9.5. Echeverria was placed on the patient. Urine was showing Gram stain of gram-negative rods along with strep. She was continued on IV fluids. Continuing on pain medication of hydrocodone. Antibiotics were consistent of meropenem. White cell count improved to 7900. Potassium trended down to 2.7. She was receiving replenishment. Her antibiotics continued. Urine culture was showing evidence of Pseudomonas enterobacter, Enterococcus faecalis. Vancomycin was being added to the meropenem. Potassium improved to 3.5. Hemoglobin now at 9.2, white cell count still at 7900. She was being given clearance for discharge. She will be taken off her IV antibiotics. She will be switched over to p.o. Cipro and she will continue her Echeverria as an outpatient per Dr. Darby and she was discharged home on 12/04/2017 in stable condition. EKG shows sinus tachycardia, nonspecific T-wave abnormality. With discharge, she will continue on her current diet. She was discharged with her nephrostomy tube and Echeverria catheter in place. She was given a prescription for Cipro 250 mg 1 tablet p.o. b.i.d. #28. Activity level as tolerated, by myself, as well as Dr. Darby's explanations. She will continue on: 1. Acetaminophen 650 every 4 hours needed for pain and temperature. 2. Tylenol No. 3 two tablets every 6 hours as needed for pain. 3. Diflucan 100 mg 1 tablet daily. 4. Lisinopril 2.5 mg daily. As mentioned, she will be following back up with Dr. Darby's office within 1 to 2 weeks for further Echeverria care and nephrostomy care. Dictated By: TERESA Martinez Job#: [id number] CQ
== END 2017-12-04 16:53 | disposition home or self-care (01) | DRG 698 ==
LOC: ER 16:43 → ERHOLD 20:49 → MED/SURG2 12-01 13:01
DX: T83.518A Infection and inflammatory reaction due to other urinary catheter, initial encounter (principal); A41.9 Sepsis, unspecified organism; N17.9 Acute kidney failure, unspecified; E87.2 Acidosis; Y84.6 Urinary catheterization as the cause of abnormal reaction of the patient, or of later complication, without mention of misadventure at the time of the procedure; E11.22 Type 2 diabetes mellitus with diabetic chronic kidney disease; I12.9 Hypertensive chronic kidney disease with stage 1 through stage 4 chronic kidney disease, or unspecified chronic kidney disease; N18.9 Chronic kidney disease, unspecified; E86.0 Dehydration; R00.0 Tachycardia, unspecified; N20.0 Calculus of kidney; B96.5 Pseudomonas (aeruginosa) (mallei) (pseudomallei) as the cause of diseases classified elsewhere; B96.89 Other specified bacterial agents as the cause of diseases classified elsewhere; B95.2 Enterococcus as the cause of diseases classified elsewhere; E87.6 Hypokalemia; D64.9 Anemia, unspecified; Z85.41 Personal history of malignant neoplasm of cervix uteri
CPT/HCPCS: 36415; 51700; 74176; 80048; 80053; 81001; 82150; 83605; 83690; 85025; 87040; 87086; 87186; 93005; 96361; 99284; J0696; J2185; J2270; J2405; J3370; J7030; J7050

== ENCOUNTER 2017-12-10 11:29 | Inpatient (IN) | payer BC ==
[~2017-12-10] VITALS: Ht 152.4 cm; Wt 83.9 kg
[2017-12-10] MEDS ORDERED: ONDANSETRON HCL INJ 2 MG/ML VIAL IV STA (11:52)
[2017-12-10] MEDS ORDERED: KETOROLAC TROMETHAMINE 30 MG/ML VIAL IV STA (11:52)
[2017-12-10] MEDS ORDERED: LORAZEPAM INJ 2 MG/ML VIAL IV ONE (12:00)
[2017-12-10 12:39] LABS: BASOPHILS # (AUTO) 0.1 (0.0-0.1); BASOPHILS % 0.4 % (0.0-1.0); EOSINOPHILS # (AUTO) 0.1 (0.0-0.4); EOSINOPHILS % 0.4 % (0.0-6.0); HEMATOCRIT 34.8 % (34.2-44.1); HEMOGLOBIN 10.6 g/dL (12.0-16.0); LYMPHOCYTES # (AUTO) 1.4 (1.0-3.2); LYMPHOCYTES % 10.1 % (18.0-39.1); MEAN CORPUSCULAR HEMOGLOBIN 24.5 pg (28-32); MEAN CORPUSCULAR HGB CONC 30.5 g/dL (31-35); MEAN CORPUSCULAR VOLUME 80.6 fL (81-99); MONOCYTES # (AUTO) 0.7 (0.2-0.8); MONOCYTES % 4.7 % (4.4-11.3); NEUTROPHILS # (AUTO) 11.8 (2.1-6.9); PLATELET COUNT 396 x10e3/uL (140-360); RED BLOOD COUNT 4.32 x10e6/uL (3.6-5.1); RED CELL DISTRIBUTION WIDTH 15.1 % (11.7-14.4)
[2017-12-10 12:56] LABS: ALBUMIN 3.5 g/dL (3.5-5.0); ALBUMIN/GLOBULIN RATIO 0.7 (0.8-2.0); ANION GAP 17.6 mmol/L (8-16); CREATININE, SERUM 0.99 mg/dL (0.57-1.11); POTASSIUM 3.6 mmol/L (3.5-5.1)
--- NOTE | 2017-12-10 13:12 | Diagnostic Imaging Report ---
EXAM: CT Abdomen and Pelvis WITHOUT contrast INDICATION: Left flank pain. Previous kidney stone with stent. COMPARISON: 11/30/2017 TECHNIQUE: Abdomen and pelvis were scanned utilizing a multidetector helical scanner from the lung base to the pubic symphysis without administration of IV contrast. Absence of intravenous contrast decreases sensitivity for detection of focal lesions and vascular pathology. Coronal and sagittal reformations were obtained. Routine protocol was performed. IV CONTRAST: None. ORAL CONTRAST: Water RADIATION DOSE: Total DLP: 797.04 mGy*cm Estimated effective dose: (DLP x 0.015 x size factor) mSv COMPLICATIONS: None FINDINGS: LINES and TUBES: Right nephrostomy tube with distal tip coiled within the right renal pelvis. Left double-J ureteral stent in adequate position. Catheter within the bladder. LOWER THORAX: Calcified granuloma in the posterior right lung base. HEPATOBILIARY: No focal hepatic lesions. No biliary ductal dilation. GALLBLADDER: Peripherally calcified gallstone in the lumen of the gallbladder. No wall thickening. SPLEEN: No splenomegaly. PANCREAS: No focal masses or ductal dilatation. ADRENALS: No adrenal nodules. KIDNEYS/URETERS: 7.0 mm stone within the lower pole of the left kidney. This appears to be fragmented when compared with the prior exam. Minimal right hydronephrosis improved since the prior exam. Mild left hydronephrosis improved when compared with the prior exam. Unchanged left perinephric stranding may reflect pyelonephritis. Unchanged left periureteral fat stranding. GI TRACT: No abnormal distention, wall thickening, or evidence of bowel obstruction. PELVIC ORGANS/BLADDER: Radiation seeds again observed in the uterine cervix. Urinary bladder is decompressed by a Echeverria catheter. LYMPH NODES: No lymphadenopathy. VESSELS: Unremarkable. PERITONEUM / RETROPERITONEUM: No free air or fluid. BONES: There are degenerative changes in the lumbar spine. SOFT TISSUES: Unremarkable. IMPRESSION: 1. Unchanged left perinephric stranding may reflect pyelonephritis. Minimal left hydroureteronephrosis is improved when compared with the prior exam. The previously seen 9.0 mm stone in the lower pole of the left kidney appears to be fragmented and slightly smaller. 2. Minimal right hydroureteronephrosis improved when compared with the prior exam. Signed by: Dr. Thanh Yost M.D. on 12/10/2017 1:09 PM
[2017-12-10] MEDS ORDERED: SODIUM CHLORIDE 0.9% 1000ML 1,000 ML IV SCH ×2 (13:15→16:00)
[2017-12-10 14:09] LABS: CLARITY,URINE CLOUDY (CLEAR); COLOR,URINE YELLOW (YELLOW); LEUKOCYTE ESTERASE ,URINE 2+ (NEGATIVE); NITRITE,URINE NEGATIVE (NEGATIVE); PROTEIN,URINE DIPSTICK 2+ (NEGATIVE)
[2017-12-10 14:10] LABS: BILIRUBIN,URINE NEGATIVE (NEGATIVE); KETONES,URINE NEGATIVE (NEGATIVE); URINE UROBILINOGEN 0.2 mg/dL (0.2 - 1)
[2017-12-10 14:23] LABS: BACTERIA,URINE MANY /HPF; WBC,URINE (MAN) >50 /HPF (0-5)
[2017-12-10 14:25] LABS: EPITHELIAL CELLS,URINE RARE /LPF
[2017-12-10 14:26] LABS: YEAST,URINE FEW
[2017-12-10] MEDS ORDERED: MORPHINE SULFATE 2 MG/ML SYR IV PRN (14:45)
[2017-12-10] MEDS ORDERED: MEROPENEM 1GRAM 1 GM in SODIUM CHLORIDE 0.9% 100 ML 100 ML IV SCH (14:45)
[2017-12-10] MEDS ORDERED: HYDROMORPHONE 2MG/ML 2 MG/ML ML IV ONE (15:00)
[2017-12-10] MEDS: MEROPENEM 1 GM VIAL IV SCH ×2 (15:15→23:20)
[2017-12-10] MEDS: ONDANSETRON HCL INJ 2 MG/ML VIAL IV PRN ×2 (15:20→20:13)
[2017-12-10] MEDS: MORPHINE SULFATE INJ 4 MG/ML INJ IV PRN ×2 (15:23→20:13)
--- NOTE | 2017-12-10 16:01 | Consultation ---
DATE OF CONSULTATION: December 10, 2017 REASON FOR CONSULTATION: URI. HISTORY OF PRESENT ILLNESS: This patient who is a 57-year-old female who was recently in the hospital with acute pyelonephritis, so she was admitted on December 27, 2016. The patient comes in at that time with dysuria, fever, and chills. Patient has history of cervical cancer, hypertension, and right nephrostomy tube. She was admitted with UTI. She was seen by urology. She was given antibiotic and discharged home after a stent placement. The patient is coming back to the hospital now with left-sided pain. Patient still have pain 2 days ago. It is on the left side, severe and feverish. Patient is admitted. PAST MEDICAL HISTORY: Hyperlipidemia, obesity, depression, anxiety, cervical cancer. PAST SURGICAL HISTORY: Bilateral renal stent placement. ALLERGIES: NKA. SOCIAL HISTORY: There is no smoking, drug abuse, alcohol abuse. FAMILY HISTORY: Otherwise unremarkable. LABORATORY DATA: Urine culture is still pending. Back in November 30, her blood culture was negative, but she was on meropenem. White count today 14.0, hemoglobin of 10. Her sodium 130, potassium 3.6, creatinine 0.99. She has a CAT scan of abdomen and pelvis showed unchanged left perinephric stranding reflect pyelonephritis. There is 9 mm stone in the left kidney. PHYSICAL EXAMINATION GENERAL: She is currently alert and oriented. Does not seem in acute distress. VITALS: Stable, currently afebrile. HEENT: She is not icteric. NECK: Supple. CHEST: Clear. ABDOMEN: Soft. Bowel sounds present. No tenderness. EXTREMITIES: No edema. She did have left CVA tenderness. IMPRESSION 1. Pyelonephritis. 2. Urinary tract infection. Agree with meropenem. Agree with urologic evaluation with blood cultures and urine cultures. 3. History of cervical cancer. 4. Obesity. 5. We will follow. Job#: [id number] MELISSA
[2017-12-10] MEDS: SODIUM CHLORIDE 0.9% 1000ML 1,000 ML IV SCH (17:50)
[2017-12-10 19:52] VITALS: BP 146/73
[2017-12-10 20:00] VITALS: BP 146/73
[2017-12-10 21:00] VITALS: BP 146/73
[2017-12-11] VITALS (8 sets, daily range): BP systolic 100–138; BP diastolic 64–90
[2017-12-11] MEDS: MORPHINE SULFATE INJ 4 MG/ML INJ IV PRN ×3 (00:38→20:03)
[2017-12-11] MEDS: ONDANSETRON HCL INJ 2 MG/ML VIAL IV PRN ×3 (00:38→20:03)
[2017-12-11] MEDS: SODIUM CHLORIDE 0.9% 1000ML 1,000 ML IV SCH ×4 (02:14→20:02)
[2017-12-11 04:37] LABS: BASOPHILS # (AUTO) 0.1 (0.0-0.1); BASOPHILS % 0.4 % (0.0-1.0); EOSINOPHILS # (AUTO) 0.1 (0.0-0.4); EOSINOPHILS % 0.5 % (0.0-6.0); HEMATOCRIT 28.8 % (34.2-44.1); HEMOGLOBIN 8.9 g/dL (12.0-16.0); LYMPHOCYTES % 15.8 % (18.0-39.1); MEAN CORPUSCULAR HEMOGLOBIN 24.9 pg (28-32); MEAN CORPUSCULAR HGB CONC 30.9 g/dL (31-35); MEAN CORPUSCULAR VOLUME 80.4 fL (81-99); MONOCYTES # (AUTO) 0.7 (0.2-0.8); MONOCYTES % 5.5 % (4.4-11.3); NEUTROPHILS % 77.3 % (38.7-80.0); PLATELET COUNT 304 x10e3/uL (140-360); RED BLOOD COUNT 3.58 x10e6/uL (3.6-5.1); RED CELL DISTRIBUTION WIDTH 15.2 % (11.7-14.4)
[2017-12-11 04:55] LABS: ANION GAP 10.5 mmol/L (8-16); BLOOD UREA NITROGEN 11 mg/dL (7-26); BUN/CREATININE RATIO 12 (6-25); CALCIUM 8.5 mg/dL (8.4-10.2); CARBON DIOXIDE 24 mmol/L (22-29); CHLORIDE 109 mmol/L (98-107); CREATININE, SERUM 0.91 mg/dL (0.57-1.11); EST GLOMERULAR FILTRATION RATE > 60 ML/MIN (60-); GLUCOSE 133 mg/dL (74-118); POTASSIUM 3.5 mmol/L (3.5-5.1); SODIUM 140 mmol/L (136-145)
[2017-12-11] MEDS: MEROPENEM 1 GM VIAL IV SCH ×3 (05:53→21:01)
[2017-12-11] MEDS: FLUCONAZOLE 200 MG/100 ML 100 ML IV SCH (13:05)
[2017-12-11] MEDS ORDERED: ACETAMINOPHEN 325 MG TAB PO PRN (17:45)
[2017-12-11] MEDS ORDERED: POTASSIUM CHLORIDE 20 MEQ TAB CR PO NR (17:45)
--- NOTE | 2017-12-11 17:56 | History and Physical ---
HISTORY OF PRESENT ILLNESS: Patient is a 57-year-old female with past medical history positive for bilateral kidney stone. She got a stent placed last week in the left kidney. Also she had a nephrostomy on the right side by Dr. Mccartney, urologist. Patient came here with complaint of left flank pain. She was found to have possible pyelonephritis. REVIEW OF SYSTEMS: CARDIOVASCULAR: No chest pain or palpitation. RESPIRATORY: No shortness of breath. No cough. GASTROINTESTINAL: She has nausea and vomiting, no diarrhea. She did have left flank pain. GENITOURINARY: No frequency, no dysuria. ALLERGIES: SHE CLAIMS THAT SHE IS NOT ALLERGIC TO ANY MEDICATION. SOCIAL HISTORY: She does not smoke. She does not drink. PAST MEDICAL HISTORY: She claims that she has no other past medical history except for kidney stones and a recent nephrostomy tube placed on the right flank. PHYSICAL EXAMINATION: HEART: Shows regular rhythm. Normal S1 and S2 sounds. LUNGS: Clear bilaterally. ABDOMEN: Soft. She does have a nephrostomy tube in the right flank. VITAL SIGNS: Blood pressure 118/77, temperature 99.0, heart rate 81 per minute, respiratory rate 18 per minute, and oxygen saturation 96%. On the BMP: Sodium 140, potassium 3.5, chloride 109, CO2 24, BUN 11, creatinine 0.91, glucose 133. On the CBC: White blood count 12.8, hemoglobin 8.9, hematocrit 28.8, platelet count 304,000. AST 16, ALT 15, total bilirubin 0.7, alkaline phosphatase 94. FINAL IMPRESSION: 1. Left pyelonephritis. 2. Bilateral hydronephrosis. 3. Chronic anemia. PLAN OF TREATMENT: Continue fluconazole 100 mg IV once a day. Normal saline 125 mL an hour. Morphine 4 mg IV q.4 h. as needed. Zofran 4 mg IV q.[address] Mccartney has been consulted from urology and Dr. Mar for infectious diseases. We are going to repeat a CBC tomorrow, replace the potassium. We are going to recheck BMP, magnesium level tomorrow. Dr. Bill is covering for me from today, which is December 11 at 4:30 p.m. until December 14, at 7 a.m. Job#: [id number] EV
[2017-12-11] MEDS ORDERED: MEROPENEM 500 MG VIAL IV SCH (21:00)
[2017-12-12] VITALS (7 sets, daily range): BP systolic 115–145; BP diastolic 57–86
[2017-12-12] MEDS: ONDANSETRON HCL INJ 2 MG/ML VIAL IV PRN (04:33)
[2017-12-12] MEDS: MORPHINE SULFATE INJ 4 MG/ML INJ IV PRN ×2 (04:34→15:44)
[2017-12-12 04:49] LABS: BASOPHILS % 0.4 % (0.0-1.0); EOSINOPHILS # (AUTO) 0.1 (0.0-0.4); EOSINOPHILS % 1.5 % (0.0-6.0); HEMATOCRIT 29.2 % (34.2-44.1); LYMPHOCYTES # (AUTO) 1.7 (1.0-3.2); LYMPHOCYTES % 17.5 % (18.0-39.1); MEAN CORPUSCULAR HEMOGLOBIN 24.9 pg (28-32); MEAN CORPUSCULAR HGB CONC 30.8 g/dL (31-35); MEAN CORPUSCULAR VOLUME 80.7 fL (81-99); MONOCYTES # (AUTO) 0.7 (0.2-0.8); NEUTROPHILS % 73.2 % (38.7-80.0); PLATELET COUNT 307 x10e3/uL (140-360); RED BLOOD COUNT 3.62 x10e6/uL (3.6-5.1)
[2017-12-12 05:03] LABS: ANION GAP 12.6 mmol/L (8-16); BLOOD UREA NITROGEN 8 mg/dL (7-26); BUN/CREATININE RATIO 10 (6-25); CALCIUM 8.9 mg/dL (8.4-10.2); CARBON DIOXIDE 23 mmol/L (22-29); CHLORIDE 108 mmol/L (98-107); CREATININE, SERUM 0.82 mg/dL (0.57-1.11); EST GLOMERULAR FILTRATION RATE > 60 ML/MIN (60-); GLUCOSE 127 mg/dL (74-118); POTASSIUM 3.6 mmol/L (3.5-5.1); SODIUM 140 mmol/L (136-145)
[2017-12-12] MEDS: MEROPENEM 1 GM VIAL IV SCH ×3 (05:15→23:23)
[2017-12-12] MEDS: SODIUM CHLORIDE 0.9% 1000ML 1,000 ML IV SCH ×3 (05:16→22:41)
[2017-12-12] MEDS: LISINOPRIL 2.5 MG TAB PO SCH (08:33)
[2017-12-12] MEDS: FLUCONAZOLE 200 MG/100 ML 100 ML IV SCH (13:33)
[2017-12-13] VITALS (7 sets, daily range): BP systolic 108–138; BP diastolic 65–85
[2017-12-13] MEDS: MORPHINE SULFATE INJ 4 MG/ML INJ IV PRN ×2 (01:04→18:00)
[2017-12-13] MEDS: MEROPENEM 1 GM VIAL IV SCH ×3 (05:49→21:25)
[2017-12-13] MEDS: LISINOPRIL 2.5 MG TAB PO SCH (08:35)
[2017-12-13] MEDS: SODIUM CHLORIDE 0.9% 1000ML 1,000 ML IV SCH ×2 (08:35→15:08)
[2017-12-13] MEDS: FLUCONAZOLE 200 MG/100 ML 100 ML IV SCH (14:40)
--- NOTE | 2017-12-13 17:21 | Consultation ---
DATE OF CONSULTATION: December 11, 2017 UROLOGY CONSULTATION CONSULTATION CALLED BY: Dr. Rudd. CHIEF COMPLAINT/REASON FOR CONSULTATION: Nephrostomy stent, pyelonephritis. HISTORY OF PRESENT ILLNESS: Ms. Heredia is a 57-year-old female patient, previously seen Dr. Gorge Darby who has left stent, right nephrostomy, re-admitted to the hospital for pyelonephritis. Denied gross hematuria. PAST MEDICAL HISTORY: Depression, anxiety, cervical cancer, hyperlipidemia. MEDICATIONS: Please see MAR. ALLERGIES: NKDA. SOCIAL HISTORY: Denied smoking or drinking. FAMILY HISTORY: Denied urologic stones or malignancies. REVIEW OF SYSTEMS: Noncontributory other than problems as mentioned above for 12 organ systems. PHYSICAL EXAMINATION GENERAL: Elderly female, in no acute distress. VITAL SIGNS: Temperature 99.3, pulse 113, respirations 16, blood pressure 100/64. HEENT: Sclerae anicteric. NECK: Supple. BACK: Without costovertebral angle tenderness bilaterally. ABDOMEN: Soft, nontender, and nondistended. No palpable mass. No palpable hernias. No palpable inguinal lymphadenopathy. : Normal female external genitalia. EXTREMITIES: Without edema. NEURO: Moves all 4 extremities. PSYCH: Mood appropriate. SKIN: Intact. Normal color. LABORATORY DATA: CT scan revealing left perinephric stranding, right-sided hydronephrosis. Sodium 140, potassium 3.5, chloride 109, bicarb 24, BUN 11, creatinine 0.9, glucose 133. Hemoglobin 8.9, hematocrit 28, platelet count 304,000, white cell count 12,800. Urinalysis greater 50 white cells, 10 to 20 reds. IMPRESSION 1. Right nephrostomy. 2. Left ureteral stent. 3. Right hydronephrosis. 4. Urinary tract infection. 5. Microscopic hematuria. 6. Pyelonephritis. 7. Anemia. 8. Hypokalemia. 9. Renal colic. 10. Tachycardia. PLAN: The patient has been on broad-spectrum antibiotics, I agree with this. The patient needs followup with routine nephrostomy changes and stent changes. Explained the importance of this to the patient. We will await culture, adjust culture-specific antibiotics. Thank you for allowing us to participate in the care of this patient. We will be happy to follow along with you. Job#: [id number] FIORELLA
[2017-12-13] MEDS: ONDANSETRON HCL INJ 2 MG/ML VIAL IV PRN (18:00)
[2017-12-14] VITALS (8 sets, daily range): BP systolic 108–138; BP diastolic 57–92
[2017-12-14] MEDS: ONDANSETRON HCL INJ 2 MG/ML VIAL IV PRN (04:27)
[2017-12-14] MEDS: MORPHINE SULFATE INJ 4 MG/ML INJ IV PRN (04:27)
[2017-12-14] MEDS: MEROPENEM 1 GM VIAL IV SCH ×3 (05:38→22:15)
[2017-12-14] MEDS: LISINOPRIL 2.5 MG TAB PO SCH (09:00)
[2017-12-14] MEDS: FLUCONAZOLE 200 MG/100 ML 100 ML IV SCH (14:36)
[2017-12-14] MEDS: ACETAMINOPHEN/CODEINE 300MG - 30MG TAB PO PRN ×2 (14:37→22:23)
--- NOTE | 2017-12-14 19:01 | Progress Note ---
DATE: December 14, 2017 INTERNAL MEDICINE PROGRESS NOTE SUBJECTIVE: Patient is doing well. No significant complaint. PHYSICAL EXAM: VITAL SIGNS: Blood pressure 138/65. Temperature 97.9. Heart rate 70 per minute. Respiratory rate is 17 per minute. Oxygen saturation 99%. HEART: Shows regular rhythm. Normal S1 and S2 sounds. LUNGS: Clear bilaterally. ABDOMEN: Soft. She has got a right nephrostomy. EXTREMITIES: Show no evidence of cyanosis, edema or trauma. BMP showed sodium 140, potassium 3.6, chloride 108, CO2 23, BUN 8, creatinine 0.82, glucose 127. CBC: White blood count 9.59, hemoglobin 9.0, hematocrit 29.2, platelet count 307,000. AST 16, ALT 15, total bilirubin 0.7, alkaline phosphatase 94. FINAL IMPRESSION: 1. Urinary tract infection. 2. Possible pyelonephritis. 3. Left hydronephrosis. 4. Anemia of chronic disease probably. PLAN OF TREATMENT: Continue meropenem 1 gram IV q.8 hours for 14 days. Fluconazole 100 mg IV daily. Morphine 4 mg IV q.4 hours as needed. Tylenol 650 mg p.o. q.4 hours as needed for pain and fever. Lisinopril 2.5 mg daily. Tylenol No. 3 two tablets q.6. hours as needed for pain. Zofran 4 mg IV q.4 hours as needed. We are going to discontinue the IV fluids. We are going to have major case detective arrange for outpatient IV antibiotics. Job#: [id number] EV
[2017-12-14] MEDS ORDERED: DIPHENHYDRAMINE HCL 25 MG CAP PO PRN (22:45)
[2017-12-15 00:51] VITALS: BP 106/63
[2017-12-15] MEDS: MEROPENEM 1 GM VIAL IV SCH ×2 (05:33→13:28)
[2017-12-15 06:50] VITALS: BP 119/72
[2017-12-15] MEDS: LISINOPRIL 2.5 MG TAB PO SCH (08:22)
[2017-12-15 08:39] VITALS: BP 109/76
[2017-12-15 12:21] VITALS: BP 110/69
[2017-12-15] MEDS: FLUCONAZOLE 200 MG/100 ML 100 ML IV SCH (13:28)
[2017-12-15] MEDS ORDERED: DIPHENHYDRAMINE HCL INJ 50 MG/ML VIAL IV ONE (13:30)
[2017-12-15] MEDS ORDERED: LIDOCAINE HCL 1% LOCAL INJ 20 ML VIAL ONE (14:45)
[2017-12-15] MEDS ORDERED: IOPAMIDOL 300 MG/ML 15ML VIAL IT ONE (14:45)
[2017-12-15] MEDS ORDERED: MIDAZOLAM HCL 2 MG/2 ML VIAL ONE (15:03)
[2017-12-15] MEDS ORDERED: FENTANYL CITRATE/PF 100MCG/2 ML INJ ONE (15:03)
--- NOTE | 2017-12-16 00:45 | Discharge Summary ---
HOSPITAL COURSE: A 57-year-old female who came here to the hospital because of flank pain. She was found to have a urinary tract infection with multidrug resistant bacteria. Seen by Dr. Darby, seen by Dr. Mar. She was started on meropenem. Dr. Darby changed the nephrostomy tube and she went home today. 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 PHYSICAL EXAM: The heart showed regular rhythm. Normal S1 and S2 sounds. Lungs are clear bilaterally. Abdomen is soft. Extremities show no evidence of cyanosis, edema, or trauma. On the blood pressure 110/69, temperature 98.2, heart rate 76 per minute, respiratory rate 18 per minute, and oxygen saturation 99%. On the lab work, her BMP was sodium 140, potassium 3.6, chloride 108, CO2 of 23, BUN 7, creatinine 0.82, and glucose 127. On the CBC, white blood count 9.59, hemoglobin 9.0, hematocrit 29.2, and platelet count 307,000. AST 16, ALT 15, total bilirubin 0.7, and alkaline phosphatase 94. FINAL IMPRESSIONS 1. Sepsis secondary to urinary tract infection. 2. Urinary tract infection. 3. Pyelonephritis. 4. Hypertension. 5. Status post right nephrostomy. 6. Anemia of chronic disease. PLAN OF TREATMENT 1. She is going to continue the meropenem 1 g IV q.8 h. x14 days. Continue lisinopril 2.5 mg daily. Patient has IV antibiotic arranged as an outpatient. 2. She is going to follow up with Dr. Darby and Dr. Mar as an outpatient in a week. VINNY RENDON MD Job#: [id number]
--- NOTE | 2017-12-18 07:15 | Diagnostic Imaging Report ---
Procedure: Right nephrostomy catheter exchange Medications: Versed 2 mg intravenous, Fentanyl 100 mcg intravenous. The patient's vital signs, including pulse oximetry, were continuously monitored by the interventional radiology nurse. Fluoroscopy time: 1.9 minutes. Dose area product: 1.76 cGycm2 Procedure in detail: Informed consent for the procedure was obtained from the patient after discussion of risks and benefits. The right back was prepped and draped in the usual fashion. 1% lidocaine was administered into the skin and subcutaneous tissues of the right back for local anesthesia. Contrast was injected showing proximal ureteral obstruction. A 0.035 " Amplatz superstiff wire was placed through the catheter. A new 10 Yi all-purpose drainage catheter was then placed into the renal pelvis. Contrast injection confirms appropriate position. Catheter was secured to the skin with a sterile dressing. Impression: Successful right percutaneous nephrostomy catheter exchange. Signed by: Dr. Artemio Kelley DO on 12/18/2017 7:11 AM
== END 2017-12-15 18:30 | disposition home or self-care (01) | DRG 872 ==
LOC: ER 11:29 → ERHOLD 14:41 → MED/SURG2 19:45
PROVIDERS: ADMIT Internal Medicine; ATTEND Internal Medicine
PROC: 0T25X0Z Change Drainage Device in Kidney, External Approach (ICD-10-PCS; principal; 2017-12-15)
DX: A41.9 Sepsis, unspecified organism (principal); N13.6 Pyonephrosis; B96.89 Other specified bacterial agents as the cause of diseases classified elsewhere; E66.9 Obesity, unspecified; Z68.36 Body mass index [BMI] 36.0-36.9, adult; Z85.41 Personal history of malignant neoplasm of cervix uteri; E87.6 Hypokalemia; R53.81 Other malaise; R31.29 Other microscopic hematuria; N23 Unspecified renal colic; N20.0 Calculus of kidney; J06.9 Acute upper respiratory infection, unspecified; D63.8 Anemia in other chronic diseases classified elsewhere
CPT/HCPCS: 36415; 36568; 50435; 74176; 74470; 80048; 80053; 81001; 83605; 83735; 85025; 87040; 87086; 87186; 99152; 99284; C1729; C1769; J1200; J1450; J1885; J2001; J2060; J2185; J2250; J2270; J2405; J7030; Q9967

== ENCOUNTER 2017-12-18 16:30 | Emergency (ER) | payer BC ==
[~2017-12-18] VITALS: Ht 167.6 cm; Wt 83.9 kg
--- NOTE | 2017-12-18 18:06 | Diagnostic Imaging Report ---
EXAM: CHEST SINGLE (NOT PORTABLE), AP 1 view INDICATION: PIC line leaking COMPARISON: None FINDINGS: LINES/TUBES: There is a left midline catheter with tip projected over the axilla. LUNGS: No consolidations or edema. PLEURA: No effusions or pneumothorax. HEART AND MEDIASTINUM: Normal size and contour. BONES AND SOFT TISSUES: No acute findings. IMPRESSION: There is a left midline catheter with tip projected over the axilla. No priors are available to determine original location. Signed by: Dr. Rita Campos M.D. on 12/18/2017 6:03 PM
== END 2017-12-18 21:52 | disposition home or self-care (01) ==
LOC: ER 16:30
DX: Z48.03 Encounter for change or removal of drains (principal); R21 Rash and other nonspecific skin eruption
CPT/HCPCS: 71045; 99283

== ENCOUNTER 2017-12-22 12:28 | Emergency (ER) | payer BC ==
[~2017-12-22] VITALS: Ht 167.6 cm; Wt 83.9 kg
--- OUTSIDE RECORDS SUMMARY | 2017-12-22 12:32 | XMS REPORT | Continuity of Care Document ---
Author Author 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 PAIN Active 03/09/2015 [facility] Discharge Diagnosis: Urinary tract infection, site not specified 02/15/2015 02/18/2015 [facility] WEAKNESS Active 02/15/2015 [facility] MRSA<sup>1</sup> Active Problem 03/12/2015 Problem added by Discern Expert. [facility] Medications Medication Details Route Status Patient Instructions Ordering Provider Order Date Source Ativan 1 mg, Route: PO, Drug form: TAB, ONCE, Dosing Weight 86.364, kg, Priority: STAT, Start date: 03/09/15 23:44:00, Stop date: 03/09/15 23:44:00 No Longer Active 03/10/2015 [facility] tramadol hydrochloride 50 MG Oral Tablet 50 mg=1 tab, PO, BID, X 15 day, # 30 tab, 0 Refill(s) Active 03/10/2015 [facility] tramadol hydrochloride 50 MG Oral Tablet [Ultram] 1 - 2 tabs, PO, Q4-6H, PRN as needed for pain, X 7 day, # 12 tab, 0 Refill(s) Active 02/16/2015 [facility] Sulfamethoxazole 800 MG / Trimethoprim 160 MG Oral Tablet [Bactrim] 1 tab, PO, BID, # 20 tab, 0 Refill(s) Active 02/16/2015 [facility] Rocephin 1 gm, Route: IM, ONCE, Dosing Weight 84.091, kg, Start date: 02/15/15 17:48:00, Stop date: 02/15/15 17:48:00 Inactive 02/15/2015 [facility] Ondansetron 4 mg, 2 mL, Route: IVP, Drug form: INJ, ONCE, Dosing Weight 84.091, kg, Priority: STAT, Start date: 02/15/15 15:36:00, Stop date: 02/15/15 15:36:00Notes: (Same as: Wiley) MEDICATION WASTE Product Size: 4 mg Product Wasted: ___ mg Inactive 02/15/2015 [facility] Sodium Chloride 0.154 MEQ/ML Injectable Solution 1,000 mL, 1000 ml/hr, Infuse Over: 1 hr, Route: IV, 1,000, Drug form: INJ, ONCE, Priority: STAT, Dosing Weight 84.091 kg, Start date: 02/15/15 15:36:00, Duration: 1 doses or times, Stop date: 02/15/15 15:36:00 Inactive 02/15/2015 [facility] Saline Flush 0.9% 10 mL, Route: IVP, Drug Form: INJ, Dosing Weight 84.091, kg, PRN, PRN Line Flush, Start date: 02/15/15 15:36:00, Duration: 30 day, Stop date: 03/17/15 15:35:00Notes: Same as: BD Posiflush Sterile Inactive 02/15/2015 [facility] Allergies, Adverse Reactions, Alerts Substance Category Reaction Severity Reaction type Status Date Reported Comments Source diphenhydrAMINE Assertion Drug allergy Active [facility] Immunizations Immunization Date Given Site Status Last Updated Comments Source Results Order Name Results Value Reference Range Date Interpretation Comments Source URINE AND STOOL UA Urobilinogen <=1.0 mg/dL 0.1 - 1.0 02/15/2015 [facility] URINE AND STOOL UA Protein 100 mg/dL Negative mg/dL 02/15/2015 [facility] URINE AND STOOL UA Glucose Negative mg/dL Negative mg/dL 02/15/2015 [facility] URINE AND STOOL UA Ketones Negative mg/dL Negative mg/dL 02/15/2015 [facility] URINE AND STOOL UA Bili Negative *NA* (02/15/15 4:54 PM) Negative 02/15/2015 [facility] URINE AND STOOL UA Blood Moderate *ABN* (02/15/15 4:54 PM) Negative 02/15/2015 [facility] URINE AND STOOL UA Nitrite Positive *ABN* (02/15/15 4:54 PM) Negative 02/15/2015 [facility] URINE AND STOOL UA Leuk Est Large *ABN* (02/15/15 4:54 PM) Negative 02/15/2015 [facility] URINE AND STOOL UA Sq Epi Few /LPF Few /LPF 02/15/2015 [facility] URINE AND STOOL UA WBC null 0 - 5 02/15/2015 [facility] URINE AND STOOL UA RBC 155 /HPF 0 - 2 02/15/2015 [facility] URINE AND STOOL UA Bacteria Many /HPF None Seen /HPF 02/15/2015 [facility] URINE AND STOOL UA WBC Cast 34 /LPF <=0 /LPF 02/15/2015 [facility] URINE AND STOOL UA Mucus Few /LPF None Seen /LPF 02/15/2015 [facility] URINE AND STOOL UA Color Yellow *NA* (02/15/15 4:54 PM) Yellow 02/15/2015 [facility] URINE AND STOOL UA Turbidity Marked *ABN* (02/15/15 4:54 PM) Clear 02/15/2015 [facility] URINE AND STOOL UA pH 5.0 5.0 - 8.0 02/15/2015 [facility] URINE AND STOOL UA Spec Grav 1.018 <=1.030 02/15/2015 [facility] CHEM PANEL A/G Ratio 0.6 0.7 - 1.6 02/15/2015 [facility] CHEM PANEL Globulin 5.8 g/dL 2.0 - 4.0 02/15/2015 [facility] CHEM PANEL B/C Ratio 12 6 - 25 02/15/2015 [facility] CHEM PANEL AGAP 12.6 meq/L 10.0 - 20.0 02/15/2015 [facility] CHEM PANEL Alk Phos 115 unit/L 39 - 136 02/15/2015 [facility] CHEM PANEL AST 28 unit/L 0 - 37 02/15/2015 [facility] CHEM PANEL Bili Total 0.3 mg/dL 0.2 - 1.3 02/15/2015 [facility] CHEM PANEL eGFR 73 mL/min/1.73m2 [...] should be multiplied by the estimated BMI. [facility] CHEM PANEL ALT 25 unit/L 0 - 65 02/15/2015 [facility] CHEM PANEL Albumin Lvl 3.4 g/dL 3.5 - 5.0 02/15/2015 [facility] CHEM PANEL Total Protein 9.2 g/dL 6.4 - 8.4 02/15/2015 [facility] CHEM PANEL Calcium Lvl 9.1 mg/dL 8.5 - 10.5 02/15/2015 [facility] CHEM PANEL CO2 26 meq/L 24 - 32 02/15/2015 [facility] CHEM PANEL Sodium Lvl 140 meq/L 135 - 145 02/15/2015 [facility] CHEM PANEL Chloride Lvl 106 meq/L 95 - 109 02/15/2015 [facility] CHEM PANEL Potassium Lvl 4.6 meq/L 3.5 - 5.1 02/15/2015 [facility] CHEM PANEL Creatinine Lvl 0.91 mg/dL 0.50 - 1.40 02/15/2015 [facility] CHEM PANEL BUN 11 mg/dL 7 - 22 02/15/2015 [facility] CHEM PANEL Glucose Lvl 118 mg/dL 70 - 99 02/15/2015 [facility] ENDOCRINOLOGY S Preg Negative *NA* (02/15/15 4:40 PM) Negative 02/15/2015 [facility] HEMATOLOGY Lymphocytes 32.8 % 20.0 - 40.0 02/15/2015 [facility] HEMATOLOGY Segs 60.0 % 45.0 - 75.0 02/15/2015 [facility] HEMATOLOGY Eosinophils # 0.2 K/CMM 0.0 - 0.5 02/15/2015 [facility] HEMATOLOGY Basophils # 0.2 K/CMM 0.0 - 0.2 02/15/2015 [facility] HEMATOLOGY Monocytes 4.6 % 2.0 - 12.0 02/15/2015 [facility] HEMATOLOGY Eosinophils 1.2 % 0.0 - 4.0 02/15/2015 [facility] HEMATOLOGY Basophils 1.4 % 0.0 - 1.0 02/15/2015 [facility] HEMATOLOGY Segs-Bands # 7.3 K/CMM 1.5 - 8.1 02/15/2015 [facility] HEMATOLOGY Monocytes # 0.6 K/CMM 0.0 - 0.8 02/15/2015 [facility] HEMATOLOGY Lymphocytes # 4.0 K/CMM 1.0 - 5.5 02/15/2015 [facility] HEMATOLOGY Plt Morph Clumped (02/15/15 4:40 PM) 02/15/2015 [facility] HEMATOLOGY RBC Morph Normal (02/15/15 4:40 PM) 02/15/2015 [facility] HEMATOLOGY MPV 8.7 fL 7.4 - 10.4 02/15/2015 [facility] HEMATOLOGY WBC 12.0 K/CMM 3.7 - 10.4 02/15/2015 [facility] HEMATOLOGY RBC 4.90 M/CMM 4.20 - 5.40 02/15/2015 [facility] HEMATOLOGY Hct 39.0 % 36.0 - 48.0 02/15/2015 [facility] HEMATOLOGY MCV 79.7 fL 80.0 - 98.0 02/15/2015 [facility] HEMATOLOGY Hgb 12.0 g/dL 12.0 - 16.0 02/15/2015 [facility] HEMATOLOGY RDW 14.8 % 11.5 - 14.5 02/15/2015 [facility] MCHC 30.8 g/dL 32.0 - 36.0 02/15/2015 [facility] HEMATOLOGY Platelet 220 K/CMM 133 - 450 02/15/2015 [facility] MCH 24.5 pg 27.0 - 31.0 02/15/2015 [facility] Vital Signs Vital Sign Value Date Comments Source Weight 86.364 03/10/2015 [facility] Temperature Oral (F) 97.9 F 03/10/2015 [facility] Respitory Rate 18 03/10/2015 [facility] Heart Rate 91 03/10/2015 [facility] Systolic (mm Hg) 140 03/10/2015 [facility] Diastolic (mm Hg) 99 03/10/2015 [facility] Temperature Oral (F) 98.4 F 02/16/2015 [facility] Respitory Rate 18 02/16/2015 [facility] Heart Rate 97 02/16/2015 [facility] Systolic (mm Hg) 142 02/16/2015 [facility] Diastolic (mm Hg) 82 02/16/2015 [facility] Systolic (mm Hg) 147 02/15/2015 [facility] Diastolic (mm Hg) 93 02/15/2015 [facility] Weight 84.091 02/15/2015 [facility] BMI Calculated 36.21 02/15/2015 [facility] Height 152.4 cm 02/15/2015 [facility] Heart Rate 76 02/15/2015 [facility] Respitory Rate 18 02/15/2015 [facility] Temperature Oral (F) 98.1 F 02/15/2015 [facility] Encounters Location Location Details Encounter Type Encounter Number Reason For Visit Attending Provider ADM Date DC Date Status Source [facility] [id number] Ceeандрей Feliz 02/15/2015 02/16/2015 [facility] [id number] Kelby Lyons 03/10/2015 03/10/2015 [facility] Procedures Procedure Code Date Perfomer Comments Source
== END 2017-12-22 12:55 | disposition home or self-care (01) ==
LOC: ER 12:28
DX: T85.890A Other specified complication of nervous system prosthetic devices, implants and grafts, initial encounter (principal); Z48.03 Encounter for change or removal of drains; I10 Essential (primary) hypertension; F41.9 Anxiety disorder, unspecified; E78.5 Hyperlipidemia, unspecified; Z85.41 Personal history of malignant neoplasm of cervix uteri
CPT/HCPCS: 99283

== ENCOUNTER 2018-01-08 15:19 | Inpatient (IN) | payer BC ==
[~2018-01-08] VITALS: Ht 152.4 cm; Wt 85.4 kg
[2018-01-08] MEDS ORDERED: MEROPENEM 1 GM VIAL ONE (20:13)
[2018-01-08 20:14] LABS: BASOPHILS % 0.4 % (0.0-1.0); EOSINOPHILS # (AUTO) 0.1 (0.0-0.4); EOSINOPHILS % 1.4 % (0.0-6.0); HEMATOCRIT 32.8 % (34.2-44.1); HEMOGLOBIN 10.1 g/dL (12.0-16.0); LYMPHOCYTES % 19.8 % (18.0-39.1); MEAN CORPUSCULAR HGB CONC 30.8 g/dL (31-35); MEAN CORPUSCULAR VOLUME 81.2 fL (81-99); MONOCYTES # (AUTO) 0.7 (0.2-0.8); MONOCYTES % 6.6 % (4.4-11.3); NEUTROPHILS # (AUTO) 7.2 (2.1-6.9); NEUTROPHILS % 71.4 % (38.7-80.0); PLATELET COUNT 326 x10e3/uL (140-360); RED BLOOD COUNT 4.04 x10e6/uL (3.6-5.1); RED CELL DISTRIBUTION WIDTH 16.1 % (11.7-14.4)
[2018-01-08] MEDS ORDERED: ONDANSETRON HCL INJ 2 MG/ML VIAL ONE (20:19)
[2018-01-08] MEDS: MEROPENEM 1GM 100 ML IV SCH (20:26)
[2018-01-08 20:32] LABS: ALBUMIN 3.4 g/dL (3.5-5.0); ALBUMIN/GLOBULIN RATIO 0.6 (0.8-2.0); ANION GAP 16.9 mmol/L (8-16); CALCIUM 10.1 mg/dL (8.4-10.2); CREATININE, SERUM 1.33 mg/dL (0.57-1.11)
[2018-01-08 20:33] LABS: BACTERIA,URINE MANY /HPF; BILIRUBIN,URINE NEGATIVE (NEGATIVE); CLARITY,URINE HAZY (CLEAR); COLOR,URINE YELLOW (YELLOW); KETONES,URINE NEGATIVE (NEGATIVE); LEUKOCYTE ESTERASE ,URINE 2+ (NEGATIVE); NITRITE,URINE NEGATIVE (NEGATIVE); PROTEIN,URINE DIPSTICK 2+ (NEGATIVE); URINE UROBILINOGEN 0.2 mg/dL (0.2 - 1); WBC,URINE (MAN) >50 /HPF (0-5)
[2018-01-08 20:34] LABS: POTASSIUM 4.9 mmol/L (3.5-5.1)
[2018-01-08] MEDS: MORPHINE SULFATE INJ 4 MG/ML INJ IV PRN (20:50)
[2018-01-08] MEDS ORDERED: BUSPIRONE HCL5 MG PO (22:04)
[2018-01-08] MEDS ORDERED: CIPRO500 MG PO (22:05)
[2018-01-08] MEDS ORDERED: LISINOPRIL2.5 MG PO (22:05)
[2018-01-08] MEDS: SODIUM CHLORIDE 0.9% 1000ML 1,000 ML IV SCH (23:10)
[2018-01-09] VITALS (9 sets, daily range): BP systolic 111–137; BP diastolic 57–72
[2018-01-09] MEDS: MORPHINE SULFATE INJ 4 MG/ML INJ IV PRN ×3 (02:53→23:48)
[2018-01-09] MEDS: ONDANSETRON HCL INJ 2 MG/ML VIAL IV PRN ×2 (02:53→23:48)
[2018-01-09 07:23] LABS: BASOPHILS % 0.4 % (0.0-1.0); EOSINOPHILS # (AUTO) 0.2 (0.0-0.4); EOSINOPHILS % 2.8 % (0.0-6.0); HEMATOCRIT 28.8 % (34.2-44.1); HEMOGLOBIN 8.9 g/dL (12.0-16.0); LYMPHOCYTES # (AUTO) 1.6 (1.0-3.2); LYMPHOCYTES % 18.8 % (18.0-39.1); MEAN CORPUSCULAR HEMOGLOBIN 25.1 pg (28-32); MEAN CORPUSCULAR HGB CONC 30.9 g/dL (31-35); MEAN CORPUSCULAR VOLUME 81.1 fL (81-99); MONOCYTES # (AUTO) 0.7 (0.2-0.8); MONOCYTES % 8.1 % (4.4-11.3); NEUTROPHILS # (AUTO) 5.8 (2.1-6.9); NEUTROPHILS % 69.7 % (38.7-80.0); PLATELET COUNT 269 x10e3/uL (140-360); RED BLOOD COUNT 3.55 x10e6/uL (3.6-5.1)
[2018-01-09 08:01] LABS: ANION GAP 13.7 mmol/L (8-16); CALCIUM 9.1 mg/dL (8.4-10.2); CREATININE, SERUM 1.27 mg/dL (0.57-1.11); POTASSIUM 3.7 mmol/L (3.5-5.1)
[2018-01-09] MEDS: MEROPENEM 1GM 100 ML IV SCH ×2 (08:21→18:14)
[2018-01-09] MEDS ORDERED: MAGNESIUM HYDROXIDE 30 ML UDC PO PRN (09:45)
[2018-01-09] MEDS ORDERED: ACETAMINOPHEN 325 MG TAB PO PRN (09:45)
[2018-01-09] MEDS: NEBIVOLOL 10 MG TAB PO SCH (09:47)
--- NOTE | 2018-01-09 11:18 | History and Physical ---
MEDICAL REFERRAL COORDINATOR: Dr. Gorge Darby. CHIEF COMPLAINT 1. Complicated urinary tract infection associated with fever. 2. Urinary retention. 3. Right nephrostomy tube. 4. Right ureteral stent. 5. Left hydronephrosis. HISTORY: This is a 57-year-old female, chronically ill with multiple recurrent infection due to indwelling Echeverria catheter, but also has a nephrostomy tube along with right ureteral stent. Patient has a long history of urinary problems due to her previous surgery for her pelvic cancer. She did have radiation and chemotherapy. Since then, she has a lot of scarring and had recurrent stent placement to the urinary tract system. Patient is admitted for infection and meropenem was initiated. She has her right nephrostomy tube exchange, right stent exchange, and Echeverria change as well. The patient is stable now, continue antibiotic, awaiting for urine culture and sensitivity. PAST MEDICAL HISTORY: Extensive with urinary tract system infection and obstruction with percutaneous nephrostomy tube on the right, stent on the left and right as well with bilateral hydronephrosis with a long history of urinary retention. Echeverria catheter in place. SOCIAL HISTORY: Patient does not smoke or use alcohol. No recreational drugs. ALLERGIES: TO NO KNOWN ALLERGIES. HOME MEDICATIONS: List will be available for review. REVIEW OF SYSTEMS: Right and left flank pain, low-grade fever. Some nausea, but no chest pain or shortness of breath. PHYSICAL EXAMINATION VITAL SIGNS: Temperature is 99.6, blood pressure 148/91, pulse rate 111, respirations 20. GENERAL: The patient is in no acute distress. He is awake. HEENT: Normocephalic, atraumatic, and anicteric. NECK: Supple grossly. PULMONARY: Diminished breath sounds without any wheezing. CARDIOVASCULAR: Tachycardia. ABDOMEN: Soft. Generalized tenderness. Right nephrostomy tube. Echeverria catheter in place. NEUROLOGIC: No focal deficit. LABORATORY DATA: WBC is 10.0. Hemoglobin 10.1, hematocrit 32.8, and platelets 326. Urinalysis: 2+ protein, 2+ blood, 2+ leukocyte esterase greater than 50 wbc's. Many bacteria. Chemistry: Sodium is 140, potassium 4.9, chloride 106, bicarb 22, BUN 19, and creatinine 1.33. Glucose 132. IMPRESSION 1. Complicated urinary tract infection associated with Echeverria catheter, nephrostomy tube, and stents. 2. Recurrent urinary bladder infection secondary to the above. 3. Acute on chronic urinary tract infection. PLAN: Continue with current treatment. Microbiology is still pending. Patient will be on meropenem for now. IV fluid rehydration. Repeated lab workup. Continue with home medications. The patient will be admitted for treatment. Job#: [id number] PUN
[2018-01-09] MEDS: SODIUM CHLORIDE 0.9% 1000ML 1,000 ML IV SCH (11:26)
[2018-01-09] MEDS: BUSPIRONE HCL 5 MG TAB PO SCH (17:21)
[2018-01-09] MEDS: SENNOSIDES 8.6 MG TAB PO SCH (17:22)
[2018-01-10] VITALS (8 sets, daily range): BP systolic 113–167; BP diastolic 59–78
[2018-01-10] MEDS: SODIUM CHLORIDE 0.9% 1000ML 1,000 ML IV SCH (01:14)
[2018-01-10] MEDS: MEROPENEM 1GM 100 ML IV SCH ×2 (05:43→18:06)
[2018-01-10 05:50] LABS: BASOPHILS % 0.5 % (0.0-1.0); EOSINOPHILS # (AUTO) 0.3 (0.0-0.4); EOSINOPHILS % 3.3 % (0.0-6.0); HEMATOCRIT 28.8 % (34.2-44.1); HEMOGLOBIN 8.6 g/dL (12.0-16.0); LYMPHOCYTES # (AUTO) 1.9 (1.0-3.2); LYMPHOCYTES % 23.8 % (18.0-39.1); MEAN CORPUSCULAR HEMOGLOBIN 24.4 pg (28-32); MEAN CORPUSCULAR HGB CONC 29.9 g/dL (31-35); MEAN CORPUSCULAR VOLUME 81.8 fL (81-99); MONOCYTES # (AUTO) 0.6 (0.2-0.8); MONOCYTES % 7.4 % (4.4-11.3); NEUTROPHILS # (AUTO) 5.2 (2.1-6.9); NEUTROPHILS % 64.5 % (38.7-80.0); PLATELET COUNT 270 x10e3/uL (140-360); RED BLOOD COUNT 3.52 x10e6/uL (3.6-5.1); RED CELL DISTRIBUTION WIDTH 15.9 % (11.7-14.4)
[2018-01-10 06:23] LABS: ANION GAP 9.2 mmol/L (8-16); CREATININE, SERUM 1.32 mg/dL (0.57-1.11); POTASSIUM 4.2 mmol/L (3.5-5.1)
[2018-01-10] MEDS: BUSPIRONE HCL 5 MG TAB PO SCH ×2 (08:20→16:46)
[2018-01-10] MEDS: NEBIVOLOL 10 MG TAB PO SCH (08:20)
[2018-01-10] MEDS: SENNOSIDES 8.6 MG TAB PO SCH ×2 (08:20→16:46)
[2018-01-10] MEDS ORDERED: FLUCONAZOLE 100 MG TAB PO SCH (14:00)
[2018-01-10] MEDS: MORPHINE SULFATE INJ 4 MG/ML INJ IV PRN (15:48)
[2018-01-11] VITALS (8 sets, daily range): BP systolic 107–150; BP diastolic 52–86
[2018-01-11] MEDS: MORPHINE SULFATE INJ 4 MG/ML INJ IV PRN ×2 (00:10→15:09)
[2018-01-11] MEDS: ONDANSETRON HCL INJ 2 MG/ML VIAL IV PRN ×3 (00:10→15:09)
[2018-01-11] MEDS: MEROPENEM 1GM 100 ML IV SCH ×2 (05:45→18:00)
[2018-01-11 06:19] LABS: BASOPHILS % 0.4 % (0.0-1.0); EOSINOPHILS # (AUTO) 0.3 (0.0-0.4); EOSINOPHILS % 2.6 % (0.0-6.0); HEMATOCRIT 32.7 % (34.2-44.1); HEMOGLOBIN 9.9 g/dL (12.0-16.0); LYMPHOCYTES # (AUTO) 3.1 (1.0-3.2); LYMPHOCYTES % 30.9 % (18.0-39.1); MEAN CORPUSCULAR HEMOGLOBIN 24.5 pg (28-32); MEAN CORPUSCULAR HGB CONC 30.3 g/dL (31-35); MEAN CORPUSCULAR VOLUME 80.9 fL (81-99); MONOCYTES # (AUTO) 0.5 (0.2-0.8); MONOCYTES % 5.3 % (4.4-11.3); NEUTROPHILS % 60.4 % (38.7-80.0); PLATELET COUNT 367 x10e3/uL (140-360); RED BLOOD COUNT 4.04 x10e6/uL (3.6-5.1); RED CELL DISTRIBUTION WIDTH 15.6 % (11.7-14.4)
[2018-01-11 06:49] LABS: CALCIUM 9.6 mg/dL (8.4-10.2); CREATININE, SERUM 1.23 mg/dL (0.57-1.11)
[2018-01-11] MEDS ORDERED: IOPAMIDOL 610MG/1ML 300 MG/ML VIAL IV ONE (08:15)
[2018-01-11] MEDS ORDERED: BELLADONNA/OPIUM 60 MG SUPP PR ONE (08:15)
[2018-01-11] MEDS ORDERED: FENTANYL CITRATE/PF 100MCG/2 ML INJ ONE ×2 (09:07→19:10)
[2018-01-11] MEDS: SENNOSIDES 8.6 MG TAB PO SCH ×2 (10:00→17:00)
[2018-01-11] MEDS: FLUCONAZOLE 200 MG/100 ML 100 ML IV SCH (10:00)
[2018-01-11] MEDS: NEBIVOLOL 10 MG TAB PO SCH (10:00)
[2018-01-11] MEDS: BUSPIRONE HCL 5 MG TAB PO SCH ×2 (10:00→17:00)
[2018-01-11] MEDS ORDERED: MIDAZOLAM HCL 2 MG/2 ML VIAL ONE (19:10)
[2018-01-11] MEDS ORDERED: SEVOFLURANE INHAL SOLN 250 ML PEN BTL ONE (20:00)
[2018-01-11] MEDS ORDERED: DEXAMETHASONE SOD PHOS INJ 4 MG/ML VIAL ONE (20:00)
[2018-01-11] MEDS ORDERED: LIDOCAINE HCL 2% LOCAL INJ 5 ML SDV VIAL INJ ONE (20:00)
[2018-01-11] MEDS ORDERED: PROPOFOL IV EMULSION 10 MG/ML 20 ML VIAL ONE (20:00)
[2018-01-11] MEDS ORDERED: ONDANSETRON HCL INJ 2 MG/ML VIAL ONE (20:00)
[2018-01-12] VITALS (8 sets, daily range): BP systolic 108–137; BP diastolic 54–95
[2018-01-12] MEDS: MORPHINE SULFATE INJ 4 MG/ML INJ IV PRN (06:10)
[2018-01-12 06:20] LABS: BASOPHILS % 0.3 % (0.0-1.0); EOSINOPHILS % 0.1 % (0.0-6.0); HEMATOCRIT 30.2 % (34.2-44.1); HEMOGLOBIN 9.4 g/dL (12.0-16.0); LYMPHOCYTES # (AUTO) 1.8 (1.0-3.2); LYMPHOCYTES % 13.9 % (18.0-39.1); MEAN CORPUSCULAR HGB CONC 31.1 g/dL (31-35); MEAN CORPUSCULAR VOLUME 80.3 fL (81-99); MONOCYTES # (AUTO) 0.6 (0.2-0.8); MONOCYTES % 4.7 % (4.4-11.3); NEUTROPHILS # (AUTO) 10.2 (2.1-6.9); PLATELET COUNT 336 x10e3/uL (140-360); RED BLOOD COUNT 3.76 x10e6/uL (3.6-5.1); RED CELL DISTRIBUTION WIDTH 15.5 % (11.7-14.4)
[2018-01-12 06:31] LABS: ANION GAP 11.2 mmol/L (8-16); CALCIUM 9.4 mg/dL (8.4-10.2); CREATININE, SERUM 1.18 mg/dL (0.57-1.11); POTASSIUM 4.2 mmol/L (3.5-5.1)
[2018-01-12] MEDS: MEROPENEM 1GM 100 ML IV SCH ×2 (07:15→18:16)
[2018-01-12] MEDS: BUSPIRONE HCL 5 MG TAB PO SCH ×2 (08:22→18:16)
[2018-01-12] MEDS: NEBIVOLOL 10 MG TAB PO SCH (08:22)
[2018-01-12] MEDS: SENNOSIDES 8.6 MG TAB PO SCH ×2 (08:22→18:16)
[2018-01-12] MEDS: FLUCONAZOLE 200 MG/100 ML 100 ML IV SCH (09:05)
--- NOTE | 2018-01-12 09:51 | Operative Report ---
DATE OF PROCEDURE: January 11, 2018 PREOPERATIVE DIAGNOSES 1. Left-sided hydronephrosis. 2. Left indwelling ureteral stent. POSTOPERATIVE DIAGNOSES 1. Left indwelling ureteral stent. 2. Left ureteral stricture. 3. Left hydronephrosis due to stricture. 4. Atrophic (senile) vaginitis. PROCEDURES PERFORMED 1. Cystourethroscopy with complicated removal of left indwelling ureteral stent (separate procedure performed with separate scope for the diagnosis of stent). 2. Left ureteroscopy with dilation of ureteral stricture (separate procedure performed for the diagnosis of stricture). 3. Left cystourethroscopy with insertion of left indwelling ureteral stent times 2 (separate procedure performed to relieve the hydronephrosis). 4. Radiological services for supervision and interpretation of ureteroscopy. 5. Interpretation of retrograde ureteropyelography. 6. Supervision of fluoroscopy. No radiologist present. 7. Pelvic examination under anesthesia. ANESTHESIA: General. COMPLICATIONS: None. CLINICAL SUMMARY: Riat Heredia is a 57-year-old woman who underwent radiotherapy for a gynecological malignancy. The patient developed severe right ureteral stricture that has failed stenting and is now managed with chronic nephrostomy tube. The patient developed new left-sided hydronephrosis and underwent ureteral stenting and evaluation and was found to have vesicoureteric reflux. She also has a very small bladder and immediately refluxes and has no bladder capacity. This has probably caused some nephropathy. The patient is brought to the operating room to remove her stent and evaluate the need for additional stenting. She is aware of the risks of bleeding, infection, injury to adjacent structures, need for additional procedures and elected to proceed. The patient's urine culture only grew yeast. OPERATIVE PROCEDURE IN DETAIL: Informed consent was verified. Rita Heredia was properly identified, taken to the operating room, placed on the cystoscopy table in the supine position. Anesthesia was uneventfully begun. The patient was then carefully and gently repositioned in dorsal lithotomy position with all pressure points well padded. Her genitalia were prepared and draped in the usual sterile fashion. A 22.5-Danish cystoscope sheath was inserted into the patient's urethra, and the bladder was drained. Panendoscopy revealed a very small bladder with blanching and changes from radiation, but no suspicious lesions were identified. A stent was emerging from the left ureteral orifice. A guidewire was then placed alongside the stent and guided to the level of the patient's kidney. The stent was then grasped, completely removed and discarded. Semirigid ureteroscope was placed alongside the guidewire and guided into the left ureter. We identified a rather dense stricture. We could not turn the ureteroscope in such a way as to dilate with the rigid ureteroscope. Therefore, the ureteroscope was withdrawn. A double-lumen ureteral catheter was then placed and utilized as a coaxial dilator. Thus, we dilated this significant ureteral stricture that is new. Flexible ureteroscope was then brought up over a guidewire into the patient's kidney where panendoscopy revealed no stones. Palmer plaques were present, but there were fungus balls. We irrigated. We aspirated approximately 80 mL of whitish, thick fluid consistent with candidal infection. We then thoroughly irrigated out the kidney until no visible fungus balls remained. A secondary guidewire was left in place. With cystoscopic and fluoroscopic guidance, 2 separate indwelling ureteral stents were then placed. They were coiled in the patient's kidney as well as the patient's bladder. The retaining sutures were removed. Interpretation of retrograde ureteropyelography: Contrast was instilled in a retrograde fashion on the left-hand side via the ureteroscope and the double-lumen ureteral catheter. There was chronic hydronephrosis. The stents were in good position, coiled in the patient's kidney as well as the patient's bladder at the end of the case. The cystoscope was withdrawn. The Echeverria catheter was placed. It was irrigated to and fro to ensure it worked properly. Pelvic examination revealed severely atrophic vaginitis. No abnormal palpable pelvic masses could be appreciated. Patient was then uneventfully reversed from anesthesia and taken to the recovery room in stable condition. Explicit postoperative instructions were given. Will follow the patient. Will also follow up on the urine culture we sent from inside the patient's left kidney. Job#: [id number]
--- NOTE | 2018-01-12 16:24 | Consultation ---
DATE OF CONSULTATION: REASON FOR CONSULTATION: UTI. HISTORY OF PRESENT ILLNESS: This patient who is well known to me from before. She is a 57-year-old female, history of recurrent UTI, history of right nephrostomy tube, history of stent placement. The patient had history of UTI before. She is coming because she is having a recurrent infection from a stent from a stone and chronic Ceheverria. Patient has been seen by Dr. Gorge Darby. Multiple stent procedures. She is admitting for fatigue and not feeling well. In November, she had a cystogram with pelvic examination which showed that she had a left vesicoureteric reflux disease, left hydronephrosis, atrophic vaginitis. The patient had multiple pathogens before. She was admitted and started on meropenem because she has been in the hospital several times, but the urine culture showing yeast, so infectious disease was consulted. Patient is currently laying in bed comfortably. No fever or chills since admission. She says she has been having pain on the left side, but she said that since they exchanged the stent, she is feeling better and the urine catheter is overall doing well. PAST MEDICAL HISTORY: Multiple UTIs, recurrent infection, multiple pathogens before. PAST SURGICAL HISTORY: Multiple stents replacement. ALLERGIES: NKA. SOCIAL HISTORY: There is no smoking, drug abuse, alcohol abuse. FAMILY HISTORY: Hypertension. REVIEW OF SYSTEMS HEENT: Negative. PULMONARY: Negative. CARDIAC: Negative. : Negative. SKIN: There are no other rashes. PHYSICAL EXAMINATION GENERAL: She is currently alert, oriented. Does not seem to be in acute distress. VITAL SIGNS: Stable, currently afebrile. HEENT: Normocephalic. Not icteric. NECK: Supple. CHEST: Clear. HEART: S1, S2. No S3, S4, or murmur. ABDOMEN: Soft. Bowel sounds present. No tenderness. EXTREMITIES: No edema. SKIN: No rash. LABORATORY DATA: Reviewed. White count 12.7, hemoglobin 9.4. Sodium 138, potassium 4.2, creatinine of 1.18. Urine culture showing Sandra albicans. The patient underwent, on January 11, left indwelling ureteral stent placement, underwent cystoscopy, removal of the left indwelling ureteral stent, left ureteroscopy with dilatation of the ureteral stricture. Patient is currently lying in bed comfortably. IMPRESSION: Funguria urinary tract infection. Patient is doing well. She is currently on meropenem and Diflucan. We will keep on same while she is in the hospital, but I think we can discharge her with oral Diflucan for 3 weeks. Follow up as an outpatient. Will follow. Job#: [id number] TA
[2018-01-13] VITALS: BP 141/68
[2018-01-13] MEDS: MORPHINE SULFATE INJ 4 MG/ML INJ IV PRN (01:03)
[2018-01-13] MEDS: ONDANSETRON HCL INJ 2 MG/ML VIAL IV PRN (01:03)
[2018-01-13 04:00] VITALS: BP 128/60
[2018-01-13] MEDS: MEROPENEM 1GM 100 ML IV SCH (06:35)
[2018-01-13 08:09] VITALS: BP 127/65
[2018-01-13 09:50] VITALS: BP 127/65
[2018-01-13] MEDS: BUSPIRONE HCL 5 MG TAB PO SCH (09:50)
[2018-01-13] MEDS: SENNOSIDES 8.6 MG TAB PO SCH (09:50)
[2018-01-13] MEDS: NEBIVOLOL 10 MG TAB PO SCH (09:50)
[2018-01-13] MEDS: FLUCONAZOLE 200 MG/100 ML 100 ML IV SCH (09:50)
[2018-01-13 12:06] VITALS: BP 90/62
[2018-01-13] MEDS ORDERED: KEFLEX500 MG PO (15:18)
[2018-01-13] MEDS ORDERED: DIFLUCAN200 MG PO (15:18)
[2018-01-13 16:19] VITALS: BP 143/59
[2018-01-13] MEDS ORDERED: FENTANYL CITRATE/PF 100MCG/2 ML INJ ONE (19:24)
[2018-01-13] MEDS ORDERED: MIDAZOLAM HCL 2 MG/2 ML VIAL ONE (19:24)
== END 2018-01-13 16:22 | disposition home or self-care (01) | DRG 660 ==
LOC: ER 15:19 → ERHOLD 21:50 → MED/SURG 01-09 01:49 → OBSVTOIN 01-09 09:35
PROVIDERS: ADMIT Internal Medicine; ATTEND Internal Medicine
PROC: BT1B1ZZ Fluoroscopy of Bladder and Urethra using Low Osmolar Contrast (ICD-10-PCS; 2018-01-11)
PROC: 0TP98DZ Removal of Intraluminal Device from Ureter, Via Natural or Artificial Opening Endoscopic (ICD-10-PCS; principal; 2018-01-11 09:00)
PROC: 0T778DZ Dilation of Left Ureter with Intraluminal Device, Via Natural or Artificial Opening Endoscopic (ICD-10-PCS; 2018-01-11 09:00)
DX: T83.511A Infection and inflammatory reaction due to indwelling urethral catheter, initial encounter (principal); N13.6 Pyonephrosis; B48.8 Other specified mycoses; B37.49 Other urogenital candidiasis; N35.92 Unspecified urethral stricture, female; N95.2 Postmenopausal atrophic vaginitis; R33.8 Other retention of urine; Z93.6 Other artificial openings of urinary tract status; Z87.442 Personal history of urinary calculi; Z87.440 Personal history of urinary (tract) infections; Z85.43 Personal history of malignant neoplasm of ovary; Z82.49 Family history of ischemic heart disease and other diseases of the circulatory system; D64.9 Anemia, unspecified; N28.9 Disorder of kidney and ureter, unspecified; N11.0 Nonobstructive reflux-associated chronic pyelonephritis
CPT/HCPCS: 36415; 51700; 74420; 80048; 80053; 81001; 85025; 87086; 87102; 87206; 99284; C1766; G0378; J1100; J1450; J2001; J2185; J2250; J2270; J2405; J7030

== ENCOUNTER 2018-02-21 12:46 | Emergency (ER) | payer BC ==
[~2018-02-21] VITALS: Ht 152.4 cm; Wt 85.3 kg
[~2018-02-21 12:46] MED LIST changes: +BUSPIRONE HCL5 MG PO; +DIFLUCAN200 MG PO; +KEFLEX500 MG PO
[2018-02-21 14:58] LABS: CLARITY,URINE HAZY (CLEAR); COLOR,URINE YELLOW (YELLOW)
[2018-02-21 14:59] LABS: BILIRUBIN,URINE NEGATIVE (NEGATIVE); KETONES,URINE NEGATIVE (NEGATIVE); LEUKOCYTE ESTERASE ,URINE 2+ (NEGATIVE); NITRITE,URINE NEGATIVE (NEGATIVE); PROTEIN,URINE DIPSTICK 2+ (NEGATIVE); URINE UROBILINOGEN 0.2 mg/dL (0.2 - 1)
[2018-02-21 15:12] LABS: BACTERIA,URINE FEW /HPF; EPITHELIAL CELLS,URINE RARE /LPF; WBC,URINE (MAN) 21-50 /HPF (0-5)
== END 2018-02-21 16:46 | disposition home or self-care (01) ==
LOC: ER 12:46
DX: R10.30 Lower abdominal pain, unspecified (principal); N30.91 Cystitis, unspecified with hematuria; I10 Essential (primary) hypertension; E78.5 Hyperlipidemia, unspecified; F41.9 Anxiety disorder, unspecified
CPT/HCPCS: 81001; 87086; 87186; 99284

== ENCOUNTER 2018-03-10 12:32 | Emergency (ER) | payer BC ==
[~2018-03-10] VITALS: Ht 152.4 cm; Wt 85.3 kg
[2018-03-10] MEDS ORDERED: SODIUM CHLORIDE 0.9% 1000ML 1,000 ML IV STA (13:15)
[2018-03-10] MEDS ORDERED: CEFEPIME 1GM/NS 0.9% 50 ML 50 ML IV STA (13:15)
--- NOTE | 2018-03-10 14:13 | Diagnostic Imaging Report ---
EXAMINATION: CT of the abdomen and pelvis without contrast. TECHNIQUE: Spiral CT images of the abdomen and pelvis were performed from the lung bases to the lesser trochanters. No intravenous contrast was given per renal stone protocol. Coronal and sagittal reformatted images were obtained. COMPARISON: None. CLINICAL HISTORY:Nephrostomy tubes, catheters obstruction DISCUSSION: ABSENCE OF INTRAVENOUS CONTRAST DECREASES SENSITIVITY FOR DETECTION OF FOCAL LESIONS AND VASCULAR PATHOLOGY. ABDOMEN/PELVIS: LOWER THORAX: Unremarkable. HEPATOBILIARY:No focal hepatic lesions. Calcified gallstone. SPLEEN: No splenomegaly. PANCREAS: No focal masses or ductal dilatation. ADRENALS: No adrenal nodules. KIDNEYS/URETERS: Right percutaneous nephrostomy tube. No obstruction. 2 left ureteral stents extending from the renal pelvis to the bladder. Left hydronephrosis. In the inferior pole 3 small calculi measuring up to 3 mm. PELVIC ORGANS/BLADDER: Echeverria catheter. Bladder is decompressed. Hysterectomy. PERITONEUM/RETROPERITONEUM: No free air or fluid. LYMPH NODES: No intra-abdominal,retroperitoneal, pelvic or inguinal lymphadenopathy. VESSELS: Vascular calcifications. GI TRACT: No distention or wall thickening. BONES AND SOFT TISSUES: No bony destructive lesions. No soft tissue abnormalities. IMPRESSION: Left hydronephrosis despite 2 left renal stents present. Small nonobstructing left inferior pole renal calculi measuring up to 3 mm Right percutaneous nephrostomy tube. No obstruction. Echeverria catheter within the decompressed bladder. Cholelithiasis. Signed by: Dr. Williams Mayen M.D. on 03/10/2018 2:10 PM
[2018-03-10 15:10] LABS: BASOPHILS # (AUTO) 0.1 (0.0-0.1); BASOPHILS % 0.5 % (0.0-1.0); EOSINOPHILS # (AUTO) 0.1 (0.0-0.4); HEMATOCRIT 32.6 % (34.2-44.1); HEMOGLOBIN 10.2 g/dL (12.0-16.0); LYMPHOCYTES # (AUTO) 1.8 (1.0-3.2); LYMPHOCYTES % 16.4 % (18.0-39.1); MEAN CORPUSCULAR HEMOGLOBIN 25.3 pg (28-32); MEAN CORPUSCULAR HGB CONC 31.3 g/dL (31-35); MEAN CORPUSCULAR VOLUME 80.9 fL (81-99); MONOCYTES # (AUTO) 0.6 (0.2-0.8); MONOCYTES % 5.6 % (4.4-11.3); NEUTROPHILS # (AUTO) 8.4 (2.1-6.9); NEUTROPHILS % 76.2 % (38.7-80.0); PLATELET COUNT 289 x10e3/uL (140-360); RED BLOOD COUNT 4.03 x10e6/uL (3.6-5.1); RED CELL DISTRIBUTION WIDTH 16.8 % (11.7-14.4)
[2018-03-10 15:14] LABS: CLARITY,URINE CLOUDY (CLEAR); COLOR,URINE STRAW (YELLOW)
[2018-03-10 15:15] LABS: BILIRUBIN,URINE NEGATIVE (NEGATIVE); KETONES,URINE NEGATIVE (NEGATIVE); LEUKOCYTE ESTERASE ,URINE 2+ (NEGATIVE); NITRITE,URINE NEGATIVE (NEGATIVE); PROTEIN,URINE DIPSTICK 2+ (NEGATIVE); URINE UROBILINOGEN 0.2 mg/dL (0.2 - 1)
[2018-03-10 15:23] LABS: BACTERIA,URINE MANY /HPF
[2018-03-10 15:23] LABS: ALBUMIN 3.4 g/dL (3.5-5.0); ALBUMIN/GLOBULIN RATIO 0.8 (0.8-2.0); ANION GAP 15.5 mmol/L (8-16); CALCIUM 9.3 mg/dL (8.4-10.2); CREATININE, SERUM 1.14 mg/dL (0.57-1.11); POTASSIUM 3.5 mmol/L (3.5-5.1)
--- NOTE | 2018-03-10 16:40 | NUR ---
LEG APPLIED TO URINARY CATHETER, TOLERATED WELL.
[2018-03-10 16:50] VITALS: BP 164/92
== END 2018-03-10 16:55 | disposition home or self-care (01) ==
LOC: ER 12:32
DX: R30.0 Dysuria (principal); M54.5 Low back pain; N30.91 Cystitis, unspecified with hematuria
CPT/HCPCS: 36415; 74176; 80053; 81001; 85025; 99284; J0692; J7030

== ENCOUNTER 2018-03-29 15:25 | Emergency (ER) | payer BC ==
[~2018-03-29] VITALS: Ht 152.4 cm; Wt 85.3 kg
--- NOTE | 2018-03-29 16:26 | NUR ---
RT NEPHROSTOMY TUBE OPENED AND ALLOWED APPROX 3 CC DRAIN OUT AND THEN DRIPPED CLEAN STERILE SPECIMEN OBTAINED AND RAN AND PUT INTO LEON CX TUBE AND LABELED AND BIOBAG AND INTO FRIDGE.
[2018-04-07] MEDS ORDERED: ONDANSETRON PO (09:31)
== END 2018-03-29 17:05 | disposition home or self-care (01) ==
LOC: FSED 15:25
DX: R30.0 Dysuria (principal); N12 Tubulo-interstitial nephritis, not specified as acute or chronic; N30.91 Cystitis, unspecified with hematuria; I10 Essential (primary) hypertension; Z85.41 Personal history of malignant neoplasm of cervix uteri
CPT/HCPCS: 81003; 87086; 87186; 99283

== ENCOUNTER → 2018-04-07 | Day surgery (SDC) | payer BC ==
[2018-03-25 13:52] LABS: BASOPHILS # (AUTO) 0.1 (0.0-0.1); BASOPHILS % 0.5 % (0.0-1.0); EOSINOPHILS # (AUTO) 0.1 (0.0-0.4); EOSINOPHILS % 1.1 % (0.0-6.0); HEMATOCRIT 33.2 % (34.2-44.1); HEMOGLOBIN 10.3 g/dL (12.0-16.0); LYMPHOCYTES # (AUTO) 1.9 (1.0-3.2); LYMPHOCYTES % 19.3 % (18.0-39.1); MEAN CORPUSCULAR HEMOGLOBIN 25.8 pg (28-32); MEAN CORPUSCULAR VOLUME 83.2 fL (81-99); MONOCYTES # (AUTO) 0.5 (0.2-0.8); MONOCYTES % 5.2 % (4.4-11.3); NEUTROPHILS # (AUTO) 7.2 (2.1-6.9); NEUTROPHILS % 73.5 % (38.7-80.0); PLATELET COUNT 255 x10e3/uL (140-360); RED BLOOD COUNT 3.99 x10e6/uL (3.6-5.1); RED CELL DISTRIBUTION WIDTH 15.9 % (11.7-14.4)
[2018-03-25 14:07] LABS: ANION GAP 17.8 mmol/L (8-16); CALCIUM 9.5 mg/dL (8.4-10.2); CREATININE, SERUM 1.06 mg/dL (0.57-1.11); POTASSIUM 3.8 mmol/L (3.5-5.1)
--- NOTE | 2018-03-25 14:50 | Diagnostic Imaging Report ---
Exam: Abdominal film Clinical History: Nephrolithiasis Comparison: CT abdomen and pelvis 03/10/2018 DISCUSSION: Right percutaneous nephrostomy and parallel left internal ureteral stents are again noted. Positions are unchanged relative to embedded systems designer tomogram from comparison CT. Pelvic surgical clips are unchanged. No calcifications project over the renal shadows or expected ureteral courses. Calcification in the dependent portion of the dilated left collecting system seen on the comparison CT is not appreciated by plain radiography. Bowel gas pattern is nonobstructive. Regional skeletal structures are intact. Calcified gallstone projects over the right upper quadrant. IMPRESSION: Right percutaneous nephrostomy catheter and parallel left internal ureteral stents are unchanged in position. Left renal calculus seen on the comparison CT is not identified by plain radiography. Signed by: Dr. Brad Isaac M.D. on 03/25/2018 2:47 PM
[~2018-04-07] MED LIST changes: +BELLADONNA/OPIUM 30 MG SUPP RC ONE; +DEXAMETHASONE SOD PHOS INJ 4 MG/ML VIAL ONE; +FENTANYL CITRATE/PF 100MCG/2 ML INJ ONE; +GENTAMICIN 80MG/NS 100 ML 200 ML IV ONE; +HYDROMORPHONE 2MG/ML 2 MG/ML ML ONE; +IOPAMIDOL 610MG/1ML 300 MG/ML VIAL IV ONE; +LIDOCAINE HCL 2% LOCAL INJ 5 ML SDV VIAL INJ ONE; +MIDAZOLAM HCL 2 MG/2 ML VIAL ONE; +ONDANSETRON HCL INJ 2MG/ML 2ML 2 MG/ML VIAL ONE; +ONDANSETRON PO; +PIPER-TAZ 3.375 GM 50 ML ONE; +PROPOFOL IV EMULSION 10 MG/ML 20 ML VIAL ONE; +SEVOFLURANE INHAL SOLN 250 ML PEN BTL ONE
[2018-04-07 12:35] VITALS: BP 170/88
--- NOTE | 2018-04-12 09:52 | Operative Report ---
DATE OF PROCEDURE: 04/07/2018 SURGEON: Gorge Darby MD PREOPERATIVE DIAGNOSES: 1. Left ureteral stricture. 2. Left nephrolithiasis. 3. Left hydronephrosis due to stricture. 4. Left indwelling ureteral stents. 5. Cystocele. 6. Rectocele. 7. Atrophic vaginitis. 8. Neurogenic bladder. POSTOPERATIVE DIAGNOSES: 1. Left ureteral stricture. 2. Left nephrolithiasis. 3. Left hydronephrosis due to stricture. 4. Left indwelling ureteral stents. 5. Cystocele. 6. Rectocele. 7. Atrophic vaginitis. 8. Neurogenic bladder. OPERATIONS PERFORMED: 1. Cystourethroscopy with complicated removal of left indwelling ureteral stents (separate procedure performed for the diagnosis of stents). 2. Left cystourethroscopy with ureteroscopy with left ureteral stricture dilation (separate procedure performed for the diagnosis of stricture). 3. Cystourethroscopy with ureteroscopy with stone manipulation (separate procedure performed for the nephrolithiasis). 4. Radiological services for supervision and interpretation of ureteroscopy. 5. Interpretation of retrograde ureteropyelography. 6. Supervision of fluoroscopy, no radiologist present. 7. Interpretation of cystography. 8. Cystourethroscopy with insertion of 2 separate left-sided indwelling ureteral stents (separate procedure performed to relieve the extensive hydronephrosis). 9. Injection procedure for cystography. 10. Pelvic examination under anesthesia. ANESTHESIA: General. COMPLICATIONS: None. 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 The patient has a chronic right-sided ureteral stricture that has failed ureteral stenting and is managed with a chronic nephrostomy tube. The left side has ureteral stricture, it is managed with 2 separate ureteral stents, both on the same side. She has had recurrent urinary tract infections. She also has a neurogenic bladder that is extremely small with very prompt reflux and to protect her deteriorating left kidney, she is to manage with a chronic Echeverria catheter. She is aware of the risks of bleeding, infection, injury to adjacent structures, need for additional procedures, and elected to proceed. OPERATIVE PROCEDURE IN DETAIL: Informed consent was verified. Rita Heredia was properly identified, taken to the operating room, placed on the cystoscopy table in supine position. Anesthesia was uneventfully begun. The patient was then carefully and gently repositioned in dorsal lithotomy position with all pressure points well padded. Her genitalia were prepared and draped in usual sterile fashion. The cystoscope sheath was inserted under direct vision into the patient's bladder. Panendoscopy revealed 2 hairs in the bladder. These hair were grasped with graspers and extracted. It is unclear how the hair ended up in the patient's bladder. We presume it is from ureteral catheterization by the emergency room at her last emergency room visit. Two stents were emerging from the left ureteral orifice. There was also appeared to be a small diverticulum near the dome of the bladder. A guidewire was then placed into the left ureter and guided to the level of the patient's kidney. The stents were then grasped, completely removed, and discarded. Semi-rigid ureteroscope was then placed alongside the guidewire and guided into the left ureter. In the left ureter, the patient had a very dense ureteral stricture at the mid and distal ureter. We then dilated this stricture utilizing a flexible ureteroscopy sheath of 13-Montserratian and 15-Montserratian diameters. We progressively dilated the stricture to 15-Montserratian in size and allowed the dilator stay in position for a few moments. We then removed it and then we were able to place a secondary guidewire as well. Flexible ureteroscope was then brought up over the guidewire and into the patient's bladder. A panendoscopy revealed Palmer's plaques throughout the patient's left kidney and there was some fine sand. We vigorously irrigated the stone fragments to dislodge them from the patient's renal mucosa. These stones were all small and should be passable. They were too small to grasp with a Nitinol tipless basket. We carefully re-examined the ureter as we exited leading to [address]. With cystoscopic and fluoroscopic guidance, 2 separate left-sided indwelling ureteral stents were then placed to coil the patient's kidneys as well as the patient's bladder. The retaining sutures were cut short. Interpretation of Retrograde Ureteropyelography: Contrast was instilled in a retrograde fashion bilaterally. There was chronic-appearing type of left-sided hydronephrosis. The stents were in good position. We coiled the patient's kidneys as well as the patient's bladder at the end of the case. We then studied that diverticulum at the dome of the bladder by injecting it with a ureteral catheter. There was no evidence of fistulous tract. The interpretation of cystography: Cystography was performed. There was no evidence of fistulous tract from the bladder. There were what appeared to be significant trabeculations noted upon cystography. The patient's bladder was drained, cystoscope withdrawn, the Echeverria catheter was placed and she was uneventfully reversed from the anesthesia and taken to the recovery room in stable condition. There were no complications to the procedure. She tolerated the procedure well. Explicit postoperative instructions were given. We will follow up with the patient up in approximately 1 month to change the Echeverria catheter. Gorge MD MYRA Darby/ELIZ /[id number]
== END | disposition home or self-care (01) ==
LOC: OR 08:50
PROVIDERS: ATTEND Urology
DX: N20.0 Calculus of kidney (principal); N13.1 Hydronephrosis with ureteral stricture, not elsewhere classified; Z46.6 Encounter for fitting and adjustment of urinary device; N31.9 Neuromuscular dysfunction of bladder, unspecified; T19.1XXA Foreign body in bladder, initial encounter; N81.10 Cystocele, unspecified; N81.6 Rectocele; N95.2 Postmenopausal atrophic vaginitis; Z93.6 Other artificial openings of urinary tract status; C53.9 Malignant neoplasm of cervix uteri, unspecified; I10 Essential (primary) hypertension; E11.9 Type 2 diabetes mellitus without complications; D64.9 Anemia, unspecified; F32.9 Major depressive disorder, single episode, unspecified; F41.9 Anxiety disorder, unspecified; X58.XXXA Exposure to other specified factors, initial encounter; Z01.810 Encounter for preprocedural cardiovascular examination; Z01.812 Encounter for preprocedural laboratory examination; Z92.3 Personal history of irradiation; Z92.21 Personal history of antineoplastic chemotherapy; Z87.440 Personal history of urinary (tract) infections
CPT/HCPCS: 36415; 52332; 52344; 74018; 74420; 80048; 85025; 87086; 87186; 93005; C1758; C1766; C2617; J1100; J1170; J1580; J2001; J2250; J2405; J2543; J2704; Q9967

== ENCOUNTER 2018-05-06 10:28 | Inpatient (IN) | payer BC ==
[~2018-05-06] VITALS: Ht 152.4 cm; Wt 90.3 kg
[~2018-05-06 10:28] MED LIST changes: -BELLADONNA/OPIUM 30 MG SUPP RC ONE; -DEXAMETHASONE SOD PHOS INJ 4 MG/ML VIAL ONE; -FENTANYL CITRATE/PF 100MCG/2 ML INJ ONE; -GENTAMICIN 80MG/NS 100 ML 200 ML IV ONE; -HYDROMORPHONE 2MG/ML 2 MG/ML ML ONE; -IOPAMIDOL 610MG/1ML 300 MG/ML VIAL IV ONE; -LIDOCAINE HCL 2% LOCAL INJ 5 ML SDV VIAL INJ ONE; -MIDAZOLAM HCL 2 MG/2 ML VIAL ONE; -ONDANSETRON HCL INJ 2MG/ML 2ML 2 MG/ML VIAL ONE; -PIPER-TAZ 3.375 GM 50 ML ONE; -PROPOFOL IV EMULSION 10 MG/ML 20 ML VIAL ONE; -SEVOFLURANE INHAL SOLN 250 ML PEN BTL ONE; +TYLENOL WITH C1 EACH PO
--- NOTE | 2018-05-06 11:12 | NUR ---
PATIENT TO ROOM 9
[2018-05-06] MEDS ORDERED: LINEZOLID 600 MG/D5W 300ML 300 ML IV STA (11:18)
[2018-05-06] MEDS ORDERED: AMIKACIN SULFATE 250 MG/ML 2ML VIAL IV ONE (11:30)
[2018-05-06] MEDS ORDERED: SODIUM CHLORIDE 0.9% IV SCH (11:45)
[2018-05-06] MEDS ORDERED: AMIKACIN SULFATE IV SCH (11:45)
--- NOTE | 2018-05-06 12:05 | NUR ---
OBTAINED BLOOD ASEPTICALLY FROM RIGHT NEPHROSTOMY TUBE AND MEI CATHETER
[2018-05-06 12:22] LABS: BASOPHILS % 0.3 % (0.0-1.0); EOSINOPHILS # (AUTO) 0.1 (0.0-0.4); EOSINOPHILS % 1.1 % (0.0-6.0); HEMATOCRIT 33.8 % (34.2-44.1); HEMOGLOBIN 10.3 g/dL (12.0-16.0); LYMPHOCYTES # (AUTO) 2.2 (1.0-3.2); LYMPHOCYTES % 23.4 % (18.0-39.1); MEAN CORPUSCULAR HEMOGLOBIN 25.6 pg (28-32); MEAN CORPUSCULAR HGB CONC 30.5 g/dL (31-35); MEAN CORPUSCULAR VOLUME 83.9 fL (81-99); MONOCYTES # (AUTO) 0.4 (0.2-0.8); MONOCYTES % 4.8 % (4.4-11.3); NEUTROPHILS # (AUTO) 6.5 (2.1-6.9); NEUTROPHILS % 70.1 % (38.7-80.0); PLATELET COUNT 333 x10e3/uL (140-360); RED BLOOD COUNT 4.03 x10e6/uL (3.6-5.1); RED CELL DISTRIBUTION WIDTH 14.4 % (11.7-14.4)
[2018-05-06 12:41] LABS: ALBUMIN 3.4 g/dL (3.5-5.0); ALBUMIN/GLOBULIN RATIO 0.6 (0.8-2.0); ANION GAP 13.5 mmol/L (8-16); CALCIUM 9.9 mg/dL (8.4-10.2); CREATININE, SERUM 1.19 mg/dL (0.57-1.11); POTASSIUM 3.5 mmol/L (3.5-5.1)
[2018-05-06] MEDS: SODIUM CHLORIDE 0.9% 1000ML 1,000 ML IV SCH ×2 (12:43→22:32)
[2018-05-06 12:45] LABS: BILIRUBIN,URINE NEGATIVE (NEGATIVE); CLARITY,URINE CLOUDY (CLEAR); COLOR,URINE YELLOW (YELLOW); KETONES,URINE NEGATIVE (NEGATIVE); LEUKOCYTE ESTERASE ,URINE 1+ (NEGATIVE); NITRITE,URINE POSITIVE (NEGATIVE); URINE UROBILINOGEN 0.2 mg/dL (0.2 - 1)
[2018-05-06 12:46] LABS: CLARITY,URINE CLOUDY (CLEAR); COLOR,URINE YELLOW (YELLOW); LEUKOCYTE ESTERASE ,URINE 1+ (NEGATIVE); NITRITE,URINE POSITIVE (NEGATIVE); PROTEIN,URINE DIPSTICK 2+ (NEGATIVE)
[2018-05-06 12:47] LABS: BILIRUBIN,URINE NEGATIVE (NEGATIVE); KETONES,URINE NEGATIVE (NEGATIVE); PROTEIN,URINE DIPSTICK 2+ (NEGATIVE); URINE UROBILINOGEN 0.2 mg/dL (0.2 - 1)
[2018-05-06 13:01] LABS: BACTERIA,URINE FEW /HPF; EPITHELIAL CELLS,URINE RARE /LPF
[2018-05-06 13:02] LABS: BACTERIA,URINE FEW /HPF; WBC,URINE (MAN) 21-50 /HPF (0-5)
--- NOTE | 2018-05-06 13:02 | Diagnostic Imaging Report ---
Exam: KUB. Clinical History: Nephrostomy placement. Comparison: 03/25/2018. CT scan 03/10/2018. Findings: Right percutaneous nephrostomy and parallel left internal ureteral stents are again noted. Pelvic surgical clips are unchanged. No calcifications project over the renal shadows or expected ureteral courses. Calcification in the dependent portion of the dilated left collecting system seen on the comparison CT is not appreciated by plain radiography. Bowel gas pattern is nonobstructive. Regional skeletal structures are intact. Calcified gallstone projects over the right upper quadrant. IMPRESSION: Right percutaneous nephrostomy catheter and parallel left internal ureteral stents are again seen. Left renal calculus seen on the comparison CT is not identified by plain radiography. Signed by: Dr. Thanh Yost M.D. on 05/06/2018 12:58 PM
[2018-05-06] MEDS ORDERED: MORPHINE SULFATE 2 MG/ML SYR 1ML IV STA (13:38)
[2018-05-06] MEDS ORDERED: ONDANSETRON HCL INJ 2MG/ML 2ML 2 MG/ML VIAL IV STA (13:38)
[2018-05-06] MEDS ORDERED: MORPHINE SULFATE INJ 4 MG/ML INJ 1ML IV PRN (13:45)
[2018-05-06] MEDS ORDERED: MORPHINE SULFATE INJ 4 MG/ML INJ 1ML IV ONE (13:45)
--- NOTE | 2018-05-06 14:44 | NUR ---
RIGHT NEPHROSTOMY TUBE DRAINED 150CC MEI CATH DRAINED 200 CC CHANGED LEG BAG TO BEDSIDE DRAINAGE
[2018-05-06] MEDS ORDERED: AZTREONAM 1 GM/NS 50 ML 50 ML IV SCH ×2 (16:00→16:30)
[2018-05-06] MEDS ORDERED: LINEZOLID 600 MG/D5W 300ML 300 ML IV SCH ×2 (16:00→17:00)
[2018-05-06 16:24] VITALS: BP 159/77
--- NOTE | 2018-05-06 16:40 | NUR ---
RECEIVED PATIENT FROM ER TO ROOM 285, SHE IS IN STABLE CONDITION. PAIN AT A TOLERABLE LEVEL AT THIS TIME. PER ER PHYSICIAN NEPHROSTOMY BAG LEAKING DR. ESPINOSA ALREADY NOTIFIED. ADMISSION HISTORY AND INITIAL PHYSICAL ASSESSMENT COMPLETED. PATIENT ORIENTED TO ROOM AND POLICIES. CALL LIGHT WITHIN REACH. BED IN THE LOWEST POSITION.
[2018-05-06 16:50] VITALS: BP 159/77
[2018-05-06] MEDS ORDERED: LISINOPRIL2.5 MG PO (16:55)
[2018-05-06] MEDS ORDERED: ONDANSETRON HCL4 MG PO (16:55)
[2018-05-06 17:03] VITALS: BP 159/77
[2018-05-06] MEDS: CEFEPIME 1GM/NS 0.9% 50 ML 50 ML IV SCH (17:34)
--- NOTE | 2018-05-06 18:46 | NUR ---
PATIENT IS REQUESTING PAIN MEDICATION, NO MEDICATIONS AVAILABLE. PAGED DR. CARD FOR PAIN MEDICATION.
--- NOTE | 2018-05-06 19:16 | NUR ---
REPORT GIVEN TO ONCOMING NURSE, PATIENT IS RESTING IN BED. NO ACUTE DISTRESS NOTED. CALL LIGHT WITHIN REACH. BED IN THE LOWEST POSITION.
[2018-05-06 19:21] VITALS: BP 159/77
--- NOTE | 2018-05-06 19:21 | NUR ---
PT IS RESTING IN BED. RESPIRATION IS EVEN AND UNLABORED, NO DISTRESS NOTED. BED IN THE LOWEST POSITION, LOCKED, AND CALL LIGHT WITHIN REACH. WILL CONTINUE TO MONITOR.
[2018-05-06] MEDS: HYDROCODONE/APAP 10MG-325MG TAB PO PRN (19:57)
[2018-05-06 20:00] VITALS: BP 133/65
[2018-05-07] VITALS (11 sets, daily range): BP systolic 104–178; BP diastolic 58–93
[2018-05-07] MEDS: CEFEPIME 1GM/NS 0.9% 50 ML 50 ML IV SCH ×3 (01:40→17:30)
[2018-05-07] MEDS: HYDROCODONE/APAP 10MG-325MG TAB PO PRN ×2 (05:16→16:45)
[2018-05-07 05:50] LABS: BASOPHILS % 0.4 % (0.0-1.0); EOSINOPHILS # (AUTO) 0.1 (0.0-0.4); EOSINOPHILS % 1.8 % (0.0-6.0); HEMATOCRIT 33.3 % (34.2-44.1); HEMOGLOBIN 10.1 g/dL (12.0-16.0); LYMPHOCYTES # (AUTO) 1.7 (1.0-3.2); LYMPHOCYTES % 24.3 % (18.0-39.1); MEAN CORPUSCULAR HEMOGLOBIN 25.8 pg (28-32); MEAN CORPUSCULAR HGB CONC 30.3 g/dL (31-35); MEAN CORPUSCULAR VOLUME 84.9 fL (81-99); MONOCYTES # (AUTO) 0.5 (0.2-0.8); MONOCYTES % 7.5 % (4.4-11.3); NEUTROPHILS # (AUTO) 4.7 (2.1-6.9); NEUTROPHILS % 65.7 % (38.7-80.0); PLATELET COUNT 274 x10e3/uL (140-360); RED BLOOD COUNT 3.92 x10e6/uL (3.6-5.1); RED CELL DISTRIBUTION WIDTH 14.3 % (11.7-14.4)
[2018-05-07 06:05] LABS: ALBUMIN 2.7 g/dL (3.5-5.0); ALBUMIN/GLOBULIN RATIO 0.6 (0.8-2.0); ANION GAP 11.5 mmol/L (8-16); CALCIUM 8.8 mg/dL (8.4-10.2); CREATININE, SERUM 1.06 mg/dL (0.57-1.11); POTASSIUM 3.5 mmol/L (3.5-5.1)
--- NOTE | 2018-05-07 06:52 | NUR ---
RECEIVED PATIENT RESTING IN BED, RESPIRATIONS EVEN AND UNLABORED, NO ACUTE DISTRESS NOTED. CALL LIGHT WITHIN REACH. BED IN THE LOWEST POSITION. BED ALARM ON.
[2018-05-07] MEDS: SODIUM CHLORIDE 0.9% 1000ML 1,000 ML IV SCH ×3 (06:58→20:15)
[2018-05-07] MEDS ORDERED: VANCOMYCIN 1GM/NS 250 ML 250 ML IV ONE (07:15)
[2018-05-07] MEDS ORDERED: SODIUM CHLORIDE 0.9% 500ML 1,000 ML ONE (08:45)
[2018-05-07] MEDS ORDERED: FENTANYL CITRATE/PF 100MCG/2 ML INJ ONE (08:45)
[2018-05-07] MEDS ORDERED: MIDAZOLAM HCL 2 MG/2 ML VIAL ONE (08:45)
[2018-05-07] MEDS ORDERED: LIDOCAINE HCL 2% LOCAL 20 ML VIAL ONE (08:45)
--- NOTE | 2018-05-07 09:25 | NUR ---
PATIENT OFF THE UNIT FOR RIGHT NEPHROSTOMY CHANGE.
--- NOTE | 2018-05-07 10:20 | NUR ---
PATIENT BACK TO UNIT AT THIS TIME.
--- NOTE | 2018-05-07 14:53 | NUR ---
PATIENT C/O NAUSEA, NO MEDICATIONS AVAILABLE ON APR. CALLED DR. CARD FOR ORDERS, NO ANSWER, LVM.
--- NOTE | 2018-05-07 19:15 | NUR ---
REPORT GIVEN TO ONCOMING NURSE. PATIENT IS RESTING IN BED. NO ACUTE DISTRESS NOTED. NO S/S OF PAIN NOTED. CALL LIGHT WITHIN REACH. BED IN THE LOWEST POSITION.
[2018-05-08] VITALS (7 sets, daily range): BP systolic 123–176; BP diastolic 71–94
[2018-05-08] MEDS: CEFEPIME 1GM/NS 0.9% 50 ML 50 ML IV SCH ×3 (02:00→17:35)
[2018-05-08] MEDS: HYDROCODONE/APAP 10MG-325MG TAB PO PRN ×2 (04:32→20:09)
--- NOTE | 2018-05-08 05:26 | NUR ---
Received patient from day nurse, patient is alert, safety and fall precautions maintained as per hospital protocol: bed in lowest position and locked, needed items beside bed, and call lyn placed close to patient. patient is currently stable will continue to monitor.
[2018-05-08] MEDS: SODIUM CHLORIDE 0.9% 1000ML 1,000 ML IV SCH ×2 (05:33→13:51)
--- NOTE | 2018-05-08 07:16 | NUR ---
Patient endorsed to next shift for continuity of care.
--- NOTE | 2018-05-08 07:24 | NUR ---
Patient endorsed to next shift for continuity of care.
--- NOTE | 2018-05-08 12:57 | NUR ---
Patient alert and responsive, VSS, tolerated IV fluids Echeverria in place draining C/Y/U, urostomy also in place and draining, no c/o pains, continues on IV abx, call light within reach and will monitor.
--- NOTE | 2018-05-08 19:47 | NUR ---
RECEIVED PT N BED AOX3 .RESPIRATIONS ARE EVEN AND UNLABORED .PT HAS RT NEPHROSTOMY.DENIESPAIN .CALL LIGHT WITH IN REACH .CONTINUE TO MONITOR
--- NOTE | 2018-05-08 23:13 | Progress Note ---
DATE: SUBJECTIVE: Ms. Heredia is doing well. There are no new complaints. REVIEW OF SYSTEMS: HEENT: Negative. PULMONARY: Negative. CARDIAC: Negative. LABORATORY DATA: Reviewed. PHYSICAL EXAMINATION: GENERAL: She is currently alert, oriented, does not seem to be in acute distress. VITAL SIGNS: Stable. Currently afebrile. HEENT: She is not icteric. NECK: Supple. CHEST: Clear. HEART: S1, S2. No S3, S4, or murmur. ABDOMEN: Soft. Bowel sounds present. No tenderness. EXTREMITIES: No edema. IMPRESSION: Urinary tract infection. Clinically, seems to be doing better. No new complaint. Urology is following. We will follow. MD GEOVANNA Parrish/MODTana /[id number]
[2018-05-09] VITALS (8 sets, daily range): BP systolic 120–172; BP diastolic 59–93
[2018-05-09] MEDS: CEFEPIME 1GM/NS 0.9% 50 ML 50 ML IV SCH ×3 (02:00→17:13)
[2018-05-09] MEDS: SODIUM CHLORIDE 0.9% 1000ML 1,000 ML IV SCH ×4 (03:43→20:04)
--- NOTE | 2018-05-09 06:28 | NUR ---
PT C/O PAIN AND GIVEN NORCO .PT RESTING .DRAINING CLEAR FLUID IN THE NEPHROSTOMY BAG .CALL LIHT WITH IN REACH.CONTINUE TO MONITOR
--- NOTE | 2018-05-09 07:17 | NUR ---
REPORT GIVEN TO THEBILL SAMUEL NURSE
[2018-05-09] MEDS: HYDROCODONE/APAP 10MG-325MG TAB PO PRN ×2 (11:28→21:43)
--- NOTE | 2018-05-09 19:12 | Progress Note ---
DATE: SUBJECTIVE: Ms. Heredia is feeling better. No new complaints. LABORATORY DATA: Her urine showed Pseudomonas aeruginosa, which was multidrug resistant, but clinically she is doing better. The patient is on cefepime, but there is no fever, no chills. Urine was clear. PHYSICAL EXAMINATION: GENERAL: She is currently alert, oriented, does not seem to be in acute distress. VITAL SIGNS: Stable, afebrile. HEENT: She is not icteric. NECK: Supple. CHEST: Clear. HEART: S1, S2. No murmurs. ABDOMEN: Soft. Bowel sounds present. No tenderness. EXTREMITIES: No edema. IMPRESSION: Urinary tract infection with multidrug resistant. Clinically, seems to be stable, so I am going to avoid aminoglycoside because that puts her in acute renal failure. The patient had diabetes. We will discuss with Urology tomorrow. I am hoping that maybe the concentration of urine exceed BANG and that is what we are seeing clinical improvement. We will follow. MD GEOVANNA Parrish/MODL /[id number]
--- NOTE | 2018-05-09 19:42 | NUR ---
Received change of shift report from AM nurse. Walking rounds completed.
[2018-05-09] MEDS: GENTAMICIN 80MG/NS 100 ML 100 ML IV SCH (20:45)
--- NOTE | 2018-05-09 23:50 | NUR ---
Patient c/o pain to left abd = 5-6. Pain med given as ordered by MD. Will f/u.
[2018-05-10] VITALS: BP 133/73
[2018-05-10] MEDS: SODIUM CHLORIDE 0.9% 1000ML 1,000 ML IV SCH ×2 (04:15→14:53)
[2018-05-10 05:46] LABS: BASOPHILS % 0.5 % (0.0-1.0); EOSINOPHILS # (AUTO) 0.2 (0.0-0.4); EOSINOPHILS % 2.5 % (0.0-6.0); HEMATOCRIT 32.7 % (34.2-44.1); HEMOGLOBIN 10.2 g/dL (12.0-16.0); LYMPHOCYTES # (AUTO) 2.2 (1.0-3.2); LYMPHOCYTES % 28.6 % (18.0-39.1); MEAN CORPUSCULAR HEMOGLOBIN 25.6 pg (28-32); MEAN CORPUSCULAR HGB CONC 31.2 g/dL (31-35); MONOCYTES # (AUTO) 0.4 (0.2-0.8); MONOCYTES % 5.8 % (4.4-11.3); NEUTROPHILS # (AUTO) 4.7 (2.1-6.9); NEUTROPHILS % 62.3 % (38.7-80.0); PLATELET COUNT 296 x10e3/uL (140-360); RED BLOOD COUNT 3.99 x10e6/uL (3.6-5.1); RED CELL DISTRIBUTION WIDTH 13.6 % (11.7-14.4)
[2018-05-10 06:02] LABS: ANION GAP 11.3 mmol/L (8-16); CALCIUM 9.5 mg/dL (8.4-10.2); CREATININE, SERUM 1.01 mg/dL (0.57-1.11); POTASSIUM 3.3 mmol/L (3.5-5.1)
[2018-05-10 07:39] VITALS: BP 149/90
[2018-05-10] MEDS: GENTAMICIN 80MG/NS 100 ML 100 ML IV SCH (08:45)
[2018-05-10 09:32] VITALS: BP 149/90
--- NOTE | 2018-05-10 10:40 | Consultation ---
DATE OF CONSULTATION: REASON FOR CONSULTATION: UTI. HISTORY OF PRESENT ILLNESS: This patient who is known to me from before, she is a 57-year-old female, who has history of left flank UTI, history of nephrostomy tube. She does see Dr. Gorge Darby as an outpatient. We will plan for her to have it changed. She is coming with feeling really bad. There is no specific fever or chills. She is just not feeling well. The urine looked turbulent according to her, so the patient came to the Emergency Room. She was supposed to see Dr. Gorge Darby tomorrow to change her bag. The patient who has history of recurrent infection, indwelling Echeverria catheterization, obesity, nephrostomy tube, right ureteral stent placement, multiple surgeries, pelvic cancer and radiation chemotherapy. The patient who has history of kidney stone, nephrostomy tube on the left. The patient had multiple stent procedures done. The patient was admitted with not feeling well, UTI. The patient was admitted, started on linezolid and Azactam. Blood cultures and urine cultures were obtained. Infectious Disease was asked to see the patient. PAST MEDICAL HISTORY: As mentioned above. PAST SURGICAL HISTORY: Multiple procedures, nephrostomy. ALLERGIES: NKA. SOCIAL HISTORY: There is no smoking, drug abuse, or alcohol abuse. FAMILY HISTORY: Noncontributory. REVIEW OF SYSTEMS: HEENT: There is no headache, visual changes, or hearing changes. GI: There is no nausea, no vomiting, no diarrhea. CARDIAC: There is no arrhythmia. IMPRESSION: 1. Bacteriuria and urinary tract infection in a patient with complicated medical history. We will put her on cefepime 1 g q.8. Obtain urine culture and blood cultures. There was leaking from the nephrostomy tube, Dr. Darby was consulted. 2. Obesity. 3. Debility. We will follow with you. Thank you for asking me to see this patient. MD GEOVANNA Parrish/ELIZ /[id number]
[2018-05-10 11:19] VITALS: BP 162/75
--- NOTE | 2018-05-10 14:15 | NUR ---
Rounds by Dr. Darby and stated patient will need to be on Gentamycin and will need this for home infusion to be discharged. Call to ID and left message regarding this plan and waiting for call back
[2018-05-10] MEDS: HYDROCODONE/APAP 10MG-325MG TAB PO PRN (14:40)
--- NOTE | 2018-05-10 14:44 | NUR ---
Call to Dr. Mar and he stated patient does not need to be on Gentamycin and that patient can go home on Cipro 500mg BID for 3 weeks.
[2018-05-10] MEDS ORDERED: CIPRO500 MG PO (15:04)
[2018-05-10 15:56] VITALS: BP 190/86
--- NOTE | 2018-05-10 16:25 | NUR ---
Spoke with Dr. Rodriguez and orders in place for discharge patient as Dr. Darby and Isabela also cleared patient. Provided with discharge summary and med list, Dr. Mar will send an electronic prescription to her pharmacy for Cipro 500mg BID for 3 weeks. IV line removed and cath tip in place, dressing in place. Contact info provided for f/u appt with all MDs. Patient discharged.
== END 2018-05-10 16:20 | disposition home or self-care (01) | DRG 690 ==
LOC: ER 10:28 → ERHOLD 14:04 → MED/SURG3 16:15
PROVIDERS: ADMIT Internal Medicine; ATTEND Internal Medicine
PROC: 0T25X0Z Change Drainage Device in Kidney, External Approach (ICD-10-PCS; principal; 2018-05-07)
DX: N39.0 Urinary tract infection, site not specified (principal); E66.9 Obesity, unspecified; Z68.38 Body mass index [BMI] 38.0-38.9, adult; B96.5 Pseudomonas (aeruginosa) (mallei) (pseudomallei) as the cause of diseases classified elsewhere; Z16.24 Resistance to multiple antibiotics; R32 Unspecified urinary incontinence; E11.9 Type 2 diabetes mellitus without complications; Z85.89 Personal history of malignant neoplasm of other organs and systems; E87.6 Hypokalemia; N99.528 Other complication of incontinent external stoma of urinary tract; N13.30 Unspecified hydronephrosis; R31.29 Other microscopic hematuria; D64.9 Anemia, unspecified
CPT/HCPCS: 36415; 50435; 74018; 74470; 80048; 80053; 81001; 82948; 84702; 85025; 87040; 87086; 87186; 99284; J0692; J1580; J2001; J2020; J2250; J2270; J2405; J3370; J7030; J7040

== ENCOUNTER 2018-05-29 13:14 | Emergency (ER) | payer BC ==
[~2018-05-29] VITALS: Ht 152.4 cm; Wt 90.3 kg
[~2018-05-29 13:14] MED LIST changes: +ONDANSETRON HCL4 MG PO
[2018-05-29] MEDS ORDERED: SODIUM CHLORIDE 0.9% 500ML 500 ML IV ONE (15:30)
[2018-05-29] MEDS ORDERED: SODIUM CHLORIDE 0.9% 500ML 500 ML ONE (15:30)
[2018-05-29 16:21] LABS: BASOPHILS % 0.3 % (0.0-1.0); EOSINOPHILS % 0.3 % (0.0-6.0); HEMATOCRIT 34.4 % (34.2-44.1); HEMOGLOBIN 10.7 g/dL (12.0-16.0); LYMPHOCYTES # (AUTO) 1.4 (1.0-3.2); LYMPHOCYTES % 11.8 % (18.0-39.1); MEAN CORPUSCULAR HEMOGLOBIN 25.8 pg (28-32); MEAN CORPUSCULAR HGB CONC 31.1 g/dL (31-35); MEAN CORPUSCULAR VOLUME 82.9 fL (81-99); MONOCYTES # (AUTO) 0.5 (0.2-0.8); MONOCYTES % 4.6 % (4.4-11.3); NEUTROPHILS # (AUTO) 9.4 (2.1-6.9); NEUTROPHILS % 82.6 % (38.7-80.0); PLATELET COUNT 305 x10e3/uL (140-360); RED BLOOD COUNT 4.15 x10e6/uL (3.6-5.1); RED CELL DISTRIBUTION WIDTH 14.8 % (11.7-14.4)
[2018-05-29 16:49] LABS: ALBUMIN 3.4 g/dL (3.5-5.0); ALBUMIN/GLOBULIN RATIO 0.7 (0.8-2.0); ANION GAP 13.9 mmol/L (8-16); CALCIUM 9.8 mg/dL (8.4-10.2); CREATININE, SERUM 1.29 mg/dL (0.57-1.11); POTASSIUM 3.9 mmol/L (3.5-5.1)
--- NOTE | 2018-05-29 17:47 | Diagnostic Imaging Report ---
EXAM: CT Abdomen and Pelvis WITHOUT contrast INDICATION: ^CT CYSTOGRAM ^[id number] ^1626 ^Y COMPARISON: Nephrostomy tube x-ray 05/07/2018 TECHNIQUE: Abdomen and pelvis were scanned utilizing a multidetector helical scanner from the lung base to the pubic symphysis without administration of IV contrast. Absence of intravenous contrast decreases sensitivity for detection of focal lesions and vascular pathology. Coronal and sagittal reformations were obtained. Routine protocol was performed. Contrast injected through Echeverria times 2. IV CONTRAST: None. ORAL CONTRAST: Water RADIATION DOSE: Total DLP: 889.2 mGy*cm Estimated effective dose: (DLP x 0.015 x size factor) mSv COMPLICATIONS: None FINDINGS: LINES and TUBES: Right percutaneous nephrostomy tube. Left internal ureteral stent with proximal aspect in the left renal pelvis and distal stent within the urinary bladder. LOWER THORAX: Unremarkable HEPATOBILIARY: No focal hepatic lesions. No biliary ductal dilation. GALLBLADDER: Cholelithiasis. SPLEEN: No splenomegaly. PANCREAS: No focal masses or ductal dilatation. ADRENALS: No adrenal nodules KIDNEYS/URETERS: Stable position of the right buttock without intravenous nephrostomy tube with decompressed right kidney. No new calcified stones in the right kidney. The right ureter is decompressed without calcified stones. Moderate left hydroureteronephrosis has not improved despite with stent placement. Persistent 3 mm calcified stone in the inferior pole of the left kidney. No visualized new when stones along the left ureter on limited evaluation or remaining left kidney. Mild left perinephric fat stranding without fluid collections. GI TRACT: No abnormal distention, wall thickening, or evidence of bowel obstruction. Appendix is normal. PELVIC ORGANS/BLADDER: The urinary bladder is decompressed with [address] No calcified stones in the urinary bladder. Hysterectomy. LYMPH NODES: No lymphadenopathy. VESSELS: Unremarkable. PERITONEUM / RETROPERITONEUM: No free air or fluid. BONES: Unremarkable. SOFT TISSUES: Unremarkable. IMPRESSION: 1. Unchanged right nephrostomy tube with decompressed right kidney. No calcified stones in the right kidney or right ureter. 2. Persistent moderate left hydroureteronephrosis despite ureteral stent in adequate position. Unchanged left nephrolithiasis. Recommend revision of the left ureteral stent. 3. Suboptimal cystogram with only a small amount of contrast in the urinary bladder, which persist decompressed with Echeverria catheter in place. Signed by: Dr. Marisela Belle M.D. on 05/29/2018 5:43 PM
[2018-05-29] MEDS ORDERED: HYDROCODONE/APAP 5MG-325MG TAB PO ONE (18:00)
[2018-05-29 18:35] LABS: COLOR,URINE RED (YELLOW)
[2018-05-29 18:36] LABS: BILIRUBIN,URINE NEGATIVE (NEGATIVE); CLARITY,URINE CLOUDY (CLEAR); KETONES,URINE NEGATIVE (NEGATIVE); LEUKOCYTE ESTERASE ,URINE 1+ (NEGATIVE); NITRITE,URINE NEGATIVE (NEGATIVE); PROTEIN,URINE DIPSTICK 3+ (NEGATIVE); URINE UROBILINOGEN 0.2 mg/dL (0.2 - 1)
[2018-05-29 18:38] LABS: BACTERIA,URINE MANY /HPF; EPITHELIAL CELLS,URINE MODERATE /LPF; RBC,URINE >50 /HPF (0-5); WBC,URINE (MAN) >50 /HPF (0-5)
== END 2018-05-29 19:30 | disposition home or self-care (01) ==
LOC: ER 13:14
DX: Z46.6 Encounter for fitting and adjustment of urinary device (principal); N30.91 Cystitis, unspecified with hematuria
CPT/HCPCS: 36415; 51702; 74176; 80053; 81001; 85025; 87086; 87186; 99284; J7040

== ENCOUNTER 2018-07-19 14:11 | Emergency (ER) | payer BC ==
[~2018-07-19] VITALS: Ht 152.4 cm; Wt 90.3 kg
--- NOTE | 2018-07-19 16:36 | NUR ---
Two urinalysis sent off at this time. One from urostomy and other from current Echeverria catheter. Addendum: 07/19/18 at 1638 by ESTER Patient has nephrostomy not a urostomy.
[2018-07-19 16:44] LABS: BASOPHILS # (AUTO) 0.1 (0.0-0.1); BASOPHILS % 0.8 % (0.0-1.0); EOSINOPHILS # (AUTO) 0.2 (0.0-0.4); EOSINOPHILS % 2.3 % (0.0-6.0); HEMATOCRIT 33.7 % (34.2-44.1); HEMOGLOBIN 10.2 g/dL (12.0-16.0); LYMPHOCYTES # (AUTO) 1.9 (1.0-3.2); LYMPHOCYTES % 22.7 % (18.0-39.1); MEAN CORPUSCULAR HEMOGLOBIN 25.2 pg (28-32); MEAN CORPUSCULAR HGB CONC 30.3 g/dL (31-35); MEAN CORPUSCULAR VOLUME 83.4 fL (81-99); MONOCYTES # (AUTO) 0.5 (0.2-0.8); MONOCYTES % 5.4 % (4.4-11.3); NEUTROPHILS # (AUTO) 5.8 (2.1-6.9); NEUTROPHILS % 68.2 % (38.7-80.0); PLATELET COUNT 276 x10e3/uL (140-360); RED BLOOD COUNT 4.04 x10e6/uL (3.6-5.1); RED CELL DISTRIBUTION WIDTH 16.1 % (11.7-14.4)
[2018-07-19 16:51] LABS: ANION GAP 12.6 mmol/L (8-16); CALCIUM 9.8 mg/dL (8.4-10.2); CREATININE, SERUM 1.32 mg/dL (0.57-1.11); POTASSIUM 4.6 mmol/L (3.5-5.1)
[2018-07-19 16:57] LABS: BILIRUBIN,URINE NEGATIVE (NEGATIVE); CLARITY,URINE CLEAR (CLEAR); COLOR,URINE YELLOW (YELLOW); KETONES,URINE NEGATIVE (NEGATIVE); LEUKOCYTE ESTERASE ,URINE NEGATIVE (NEGATIVE); NITRITE,URINE NEGATIVE (NEGATIVE); PROTEIN,URINE DIPSTICK TRACE (NEGATIVE); URINE UROBILINOGEN 0.2 mg/dL (0.2 - 1)
[2018-07-19 17:09] LABS: BACTERIA,URINE MODERATE /HPF
[2018-07-19 17:10] LABS: AMORPHOUS SEDIMENT,URINE FEW (FEW); HYALINE CASTS 0-1 (0-1)
[2018-07-19 17:29] LABS: BILIRUBIN,URINE NEGATIVE (NEGATIVE); CLARITY,URINE CLEAR (CLEAR); COLOR,URINE YELLOW (YELLOW); KETONES,URINE NEGATIVE (NEGATIVE); LEUKOCYTE ESTERASE ,URINE LARGE (NEGATIVE); NITRITE,URINE NEGATIVE (NEGATIVE); PROTEIN,URINE DIPSTICK 1+ (NEGATIVE); URINE UROBILINOGEN 0.2 mg/dL (0.2 - 1)
[2018-07-19] MEDS ORDERED: KETOROLAC TROMETHAMINE 30 MG/ML VIAL IV STA (17:32)
[2018-07-19 17:43] LABS: AMORPHOUS SEDIMENT,URINE MODERATE (FEW); BACTERIA,URINE MODERATE /HPF
[2018-07-19] MEDS ORDERED: MEROPENEM 1GM 100 ML IV ONE (18:30)
[2018-07-19 19:12] VITALS: BP 136/70
== END 2018-07-19 19:19 | disposition home or self-care (01) ==
LOC: ER 14:11
DX: T83.511A Infection and inflammatory reaction due to indwelling urethral catheter, initial encounter (principal); N30.21 Other chronic cystitis with hematuria; I10 Essential (primary) hypertension; E78.5 Hyperlipidemia, unspecified; Z93.6 Other artificial openings of urinary tract status
CPT/HCPCS: 36415; 80048; 81001; 85025; 87086; 87186; 99283; J1885; J2185

== ENCOUNTER 2018-07-30 10:15 | Emergency (ER) | payer BC ==
[~2018-07-30] VITALS: Ht 152.4 cm; Wt 90.3 kg
--- NOTE | 2018-07-30 10:53 | NUR ---
CATHETER PLACEMENT PER MD/BICYCLE MECHANIC OF 16 FR MEI AND DRAIN TO GRAVITY AND THEN TO LEG BAG. PT EDUCATION DONE. MEI PLACED PER ORDER AND POLICY PROTOCOL. LEG BAG AT BEDSIDE TO [facility]. BLOODY URINE NO CLOTS NOTED. NOTIFIED BICYCLE MECHANIC OF FINDINGS.
[2018-07-30 11:22] VITALS: BP 127/85
[2018-07-30] MEDS ORDERED: TYLENOL WITH C1 EACH PO (14:15)
[2018-07-30] MEDS ORDERED: BUSPIRONE HCL10 MG PO (14:17)
== END 2018-07-30 11:33 | disposition home or self-care (01) ==
LOC: ER 10:15
DX: Z46.6 Encounter for fitting and adjustment of urinary device (principal); I10 Essential (primary) hypertension; E11.9 Type 2 diabetes mellitus without complications; Z85.53 Personal history of malignant neoplasm of renal pelvis
CPT/HCPCS: 51700; 99282

== ENCOUNTER → 2018-08-06 | Day surgery (SDC) | payer BC ==
[~2018-08-06] VITALS: Ht 152.4 cm; Wt 87.1 kg
[~2018-08-06] MED LIST changes: +BUSPIRONE HCL10 MG PO; +COLACE100 MG PO; +DICYCLOMINE HCL20 MG PO; +FENTANYL CITRATE/PF 100MCG/2 ML INJ ONE; +KEFLEX250 MG PO; +LIDOCAINE HCL 2% LOCAL 20 ML VIAL ONE; +MIDAZOLAM HCL 2 MG/2 ML VIAL ONE; +SODIUM CHLORIDE 0.9% 500ML 1,000 ML ONE; +ZOFRAN4 MG PO
--- OUTSIDE RECORDS SUMMARY | 2018-08-06 09:36 | XMS REPORT | Continuity of Care Document ---
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 PAIN Active 03/09/2015 [facility] Discharge Diagnosis: Urinary tract infection, site not specified 02/15/2015 02/18/2015 [facility] WEAKNESS Active 02/15/2015 [facility] MRSA1 Active Problem 03/12/2015 Problem added by Discern Expert. [facility] Medications Medication Details Route Status Patient Instructions Ordering Provider Order Date Source Ativan 1 mg, Route: PO, Drug form: TAB, ONCE, Dosing Weight 86.364, kg, Priority: STAT, Start date: 03/09/15 23:44:00, Stop date: 03/09/15 23:44:00 No Longer Active 03/10/2015 [facility] tramadol hydrochloride 50 MG Oral Tablet 50 mg=1 tab, PO, BID, X 15 day, # 30 tab, 0 Refill(s) Active 03/10/2015 [facility] tramadol hydrochloride 50 MG Oral Tablet [Ultram] 1 - 2 tabs, PO, Q4-6H, PRN as needed for pain, X 7 day, # 12 tab, 0 Refill(s) Active 02/16/2015 [facility] Sulfamethoxazole 800 MG / Trimethoprim 160 MG Oral Tablet [Bactrim] 1 tab, PO, BID, # 20 tab, 0 Refill(s) Active 02/16/2015 [facility] Rocephin 1 gm, Route: IM, ONCE, Dosing Weight 84.091, kg, Start date: 02/15/15 17:48:00, Stop date: 02/15/15 17:48:00 Inactive 02/15/2015 [facility] Ondansetron 4 mg, 2 mL, Route: IVP, Drug form: INJ, ONCE, Dosing Weight 84.091, kg, Priority: STAT, Start date: 02/15/15 15:36:00, Stop date: 02/15/15 15:36:00Notes: (Same as: [employer]) MEDICATION WASTE Product Size: 4 mg Product Wasted: ___ mg Inactive 02/15/2015 [facility] Sodium Chloride 0.154 MEQ/ML Injectable Solution 1,000 mL, 1000 ml/hr, Infuse Over: 1 hr, Route: IV, 1,000, Drug form: INJ, ONCE, Priority: STAT, Dosing Weight 84.091 kg, Start date: 02/15/15 15:36:00, Duration: 1 doses or times, Stop date: 02/15/15 15:36:00 Inactive 02/15/2015 [facility] Saline Flush 0.9% 10 mL, Route: IVP, Drug Form: INJ, Dosing Weight 84.091, kg, PRN, PRN Line Flush, Start date: 02/15/15 15:36:00, Duration: 30 day, Stop date: 03/17/15 15:35:00Notes: Same as: BD Posiflush Sterile Inactive 02/15/2015 [facility] Allergies, Adverse Reactions, Alerts Substance Category Reaction Severity Reaction type Status Date Reported Comments Source diphenhydrAMINE Assertion Drug allergy Active [facility] Immunizations No Data Provided for This Section Results Order Name Results Value Reference Range Date Interpretation Comments Source URINE AND STOOL UA Urobilinogen <=1.0 mg/dL 0.1 - 1.0 02/15/2015 [facility] URINE AND STOOL UA Protein 100 mg/dL Negative mg/dL 02/15/2015 [facility] URINE AND STOOL UA Glucose Negative mg/dL Negative mg/dL 02/15/2015 [facility] URINE AND STOOL UA Ketones Negative mg/dL Negative mg/dL 02/15/2015 [facility] URINE AND STOOL UA Bili Negative *NA* (02/15/15 4:54 PM) Negative 02/15/2015 [facility] URINE AND STOOL UA Blood Moderate *ABN* (02/15/15 4:54 PM) Negative 02/15/2015 [facility] URINE AND STOOL UA Nitrite Positive *ABN* (02/15/15 4:54 PM) Negative 02/15/2015 [facility] URINE AND STOOL UA Leuk Est Large *ABN* (02/15/15 4:54 PM) Negative 02/15/2015 [facility] URINE AND STOOL UA Sq Epi Few /LPF Few /LPF 02/15/2015 [facility] URINE AND STOOL UA WBC >182 0 - 5 02/15/2015 [facility] URINE AND STOOL UA RBC 155 0 - 2 02/15/2015 [facility] URINE AND STOOL UA Bacteria Many /HPF None Seen /HPF 02/15/2015 [facility] URINE AND STOOL UA WBC Cast 34 <=0 /LPF 02/15/2015 [facility] URINE AND STOOL UA Mucus Few /LPF None Seen /LPF 02/15/2015 [facility] URINE AND STOOL UA Color Yellow *NA* (02/15/15 4:54 PM) Yellow 02/15/2015 [facility] URINE AND STOOL UA Turbidity Marked *ABN* (02/15/15 4:54 PM) Clear 02/15/2015 [facility] URINE AND STOOL UA pH 5.0 5.0 - 8.0 02/15/2015 [facility] URINE AND STOOL UA Spec Grav 1.018 <=1.030 02/15/2015 [facility] CHEM PANEL A/G Ratio 0.6 0.7 - 1.6 02/15/2015 [facility] CHEM PANEL Globulin 5.8 2.0 - 4.0 02/15/2015 [facility] CHEM PANEL B/C Ratio 12 6 - 25 02/15/2015 [facility] CHEM PANEL AGAP 12.6 10.0 - 20.0 02/15/2015 [facility] CHEM PANEL Alk Phos 115 39 - 136 02/15/2015 [facility] CHEM PANEL AST 28 0 - 37 02/15/2015 [facility] CHEM PANEL Bili Total 0.3 0.2 - 1.3 02/15/2015 [facility] CHEM PANEL eGFR 73 02/15/2015 Result Comment: The eGFR is calculated [...] should be multiplied by the estimated BMI. [facility] CHEM PANEL ALT 25 0 - 65 02/15/2015 [facility] CHEM PANEL Albumin Lvl 3.4 3.5 - 5.0 02/15/2015 [facility] CHEM PANEL Total Protein 9.2 6.4 - 8.4 02/15/2015 [facility] CHEM PANEL Calcium Lvl 9.1 8.5 - 10.5 02/15/2015 [facility] CHEM PANEL CO2 26 24 - 32 02/15/2015 [facility] CHEM PANEL Sodium Lvl 140 135 - 145 02/15/2015 [facility] CHEM PANEL Chloride Lvl 106 95 - 109 02/15/2015 [facility] CHEM PANEL Potassium Lvl 4.6 3.5 - 5.1 02/15/2015 [facility] CHEM PANEL Creatinine Lvl 0.91 0.50 - 1.40 02/15/2015 [facility] CHEM PANEL BUN 11 7 - 22 02/15/2015 [facility] CHEM PANEL Glucose Lvl 118 70 - 99 02/15/2015 [facility] ENDOCRINOLOGY S Preg Negative *NA* (02/15/15 4:40 PM) Negative 02/15/2015 [facility] HEMATOLOGY Lymphocytes 32.8 20.0 - 40.0 02/15/2015 [facility] HEMATOLOGY Segs 60.0 45.0 - 75.0 02/15/2015 [facility] HEMATOLOGY Eosinophils # 0.2 0.0 - 0.5 02/15/2015 [facility] HEMATOLOGY Basophils # 0.2 0.0 - 0.2 02/15/2015 [facility] HEMATOLOGY Monocytes 4.6 2.0 - 12.0 02/15/2015 [facility] HEMATOLOGY Eosinophils 1.2 0.0 - 4.0 02/15/2015 [facility] HEMATOLOGY Basophils 1.4 0.0 - 1.0 02/15/2015 [facility] HEMATOLOGY Segs-Bands # 7.3 1.5 - 8.1 02/15/2015 [facility] Monocytes # 0.6 0.0 - 0.8 02/15/2015 [facility] HEMATOLOGY Lymphocytes # 4.0 1.0 - 5.5 02/15/2015 [facility] HEMATOLOGY Plt Morph Clumped (02/15/15 4:40 PM) 02/15/2015 [facility] RBC Morph Normal (02/15/15 4:40 PM) 02/15/2015 [facility] HEMATOLOGY MPV 8.7 7.4 - 10.4 02/15/2015 [facility] HEMATOLOGY WBC 12.0 3.7 - 10.4 02/15/2015 [facility] HEMATOLOGY RBC 4.90 4.20 - 5.40 02/15/2015 [facility] HEMATOLOGY Hct 39.0 36.0 - 48.0 02/15/2015 [facility] HEMATOLOGY MCV 79.7 80.0 - 98.0 02/15/2015 [facility] HEMATOLOGY Hgb 12.0 12.0 - 16.0 02/15/2015 [facility] HEMATOLOGY RDW 14.8 11.5 - 14.5 02/15/2015 [facility] HEMATOLOGY MCHC 30.8 32.0 - 36.0 02/15/2015 [facility] HEMATOLOGY Platelet 220 133 - 450 02/15/2015 [facility] HEMATOLOGY MCH 24.5 27.0 - 31.0 02/15/2015 [facility] Pathology Reports No Data Provided for This Section Diagnostic Reports No Data Provided for This Section Consultation Notes No Data Provided for This Section Discharge Summaries No Data Provided for This Section History and Physicals No Data Provided for This Section Vital Signs Vital Sign Value Date Comments Source Weight 86.364 03/10/2015 [facility] Temperature Oral (F) 97.9 F 03/10/2015 [facility] Respitory Rate 18 03/10/2015 [facility] Heart Rate 91 03/10/2015 [facility] Systolic (mm Hg) 140 03/10/2015 [facility] Diastolic (mm Hg) 99 03/10/2015 [facility] Temperature Oral (F) 98.4 F 02/16/2015 [facility] Respitory Rate 18 02/16/2015 [facility] Heart Rate 97 02/16/2015 [facility] Systolic (mm Hg) 142 02/16/2015 [facility] Diastolic (mm Hg) 82 02/16/2015 [facility] Systolic (mm Hg) 147 02/15/2015 [facility] Diastolic (mm Hg) 93 02/15/2015 [facility] Weight 84.091 02/15/2015 [facility] BMI Calculated 36.21 02/15/2015 [facility] Height 152.4 cm 02/15/2015 [facility] Heart Rate 76 02/15/2015 [facility] Respitory Rate 18 02/15/2015 [facility] Temperature Oral (F) 98.1 F 02/15/2015 [facility] Encounters Location Location Details Encounter Type Encounter Number Reason For Visit Attending Provider ADM Date DC Date Status Source [facility] [id number] Cee Griffithmary 02/15/2015 02/16/2015 [facility] [id number] Kelby Lyons 03/10/2015 03/10/2015 [facility] Procedures No Data Provided for This Section Assessment and Plan No Data Provided for This Section Plan of Care No Data Provided for This Section Social History Social History Date Source Social History TypeResponse Smoking Status Never smoker; Exposure to Tobacco Smoke None; Cigarette Smoking Last 365 Days No; Reg Smoking Cessation Counseling No 03/10/2015 [facility] Family History No Data Provided for This Section Advance Directives No Data Provided for This Section Functional Status No Data Provided for This Section
[2018-08-06 12:00] VITALS: BP 170/69
[2018-08-06 13:30] VITALS: BP 134/84
--- NOTE | 2018-08-06 13:30 | NUR ---
1330 Received pt in Rm #[id number] Report Wander HARRELL Identiferx2 Echeverria remains in place. Rt Posterior Neph. tube in place. clear output dressing intact. Back to baseline orientation Ok to dc at 1400pm. Resp shallow and regular 989% RA. Abdomen soft and non tender denies necessity to defecate. Bilateral PPx4 Pt/Dp.No gross issues pain pallor pressure . Discharge plans discussed with family has copies aware of importance of f/o 3mths for replacement or if s/s infection occurs Has copies of POC . 1400pm Pt dressed and discharged with family lyft driver. Iv removed no s/s infiltration Coban dressing in place. Pt assisted to car with lyft driver and copies of Dc papers Escorted per [facility] employee per wc. No gross issues pain pallor or pressure Rt Neph Tube site w/o s/s oozing. ds/indio
[2018-08-06 13:45] VITALS: BP 142/74
[2018-08-06 14:00] VITALS: BP 131/77
--- NOTE | 2018-08-17 08:21 | Diagnostic Imaging Report ---
PROCEDURE:CHG PERC TUBE/DRN CATH/CON/S I COMPARISON:Prior nephrostomy tube change 05/17/2018 Preprocedure diagnosis: right ureteral obstruction, chronic indwelling nephrostomy Post procedure diagnosis: Right ureteral obstruction, chronic indwelling nephrostomy. Sedation/anesthesia: Intravenous fentanyl and Versed. Refer to nursing record. The patient's heart rate and pulse oximetry were continuously monitored by the interventional radiology nurse. Blood pressure was monitored at 5 minute intervals. Additional medications: Lidocaine 1% for local anesthesia. Total fluoroscopy time: One minute Dose-area product: 267.5 cGycm2 Contrast used: 10 cc Isovue-300 Estimated blood loss: Minimal Blood products administered: None Specimens: 10 [place] percutaneous nephrostomy catheter, discarded Implants/grafts: 10 [place] percutaneous nephrostomy catheter Condition at completion: Stable Disposition: Catheter lab holding area for recovery Complications: No immediate Procedure in detail: Informed consent was obtained and documented in the medical record after discussion of risks and benefits. The patient was placed in the prone position on the angiographic table. The right flank and existing percutaneous nephrostomy catheter were prepped and draped in standard sterile fashion. 1% lidocaine was infiltrated into the skin and subcutaneous tissues along the existing catheter for local anesthesia. Injection of dilute contrast material through the catheter confirmed appropriate position within the collecting system. The catheter was severed and a 0.035 inch stiff Glidewire was advanced through the catheter and coiled within the renal pelvis. The catheter was then exchanged [id number] for a new 10 Bruneian locking loop percutaneous nephrostomy catheter. The wire was removed and the locking loop was formed in the renal pelvis. Appropriate positioning was confirmed by injection of dilute contrast material. The catheter was then flushed with sterile saline, secured to the skin with monofilament nylon suture, and connected to gravity drainage. A sterile dressing was applied. The patient tolerated the procedure well without immediate complication. CONCLUSION: Successful exchange of a 10 Bruneian locking loop right percutaneous nephrostomy catheter under fluoroscopic guidance. The patient should return to interventional radiology for routine catheter exchange in 3 months if the catheter is still needed at that time. Dictated by: Brad Isaac M.D. on 08/16/2018 at 14:18 Electronically approved by: Brad Isaac M.D. on 08/16/2018 at 14:18
== END | disposition home or self-care (01) ==
LOC: EDSTATUS 08-02 12:00 → CATH LAB 09:33
PROVIDERS: ATTEND Urology
DX: N13.5 Crossing vessel and stricture of ureter without hydronephrosis (principal); Z46.6 Encounter for fitting and adjustment of urinary device; R33.9 Retention of urine, unspecified
CPT/HCPCS: 36415; 50435; 75984; 84702; C1729; C1769 ×2; J2001; J2250; J7040; J3010

== ENCOUNTER 2018-09-09 17:03 | Inpatient (IN) | payer BC ==
[~2018-09-09] VITALS: Ht 152.4 cm; Wt 90.3 kg
[~2018-09-09 17:03] MED LIST changes: -COLACE100 MG PO; -DICYCLOMINE HCL20 MG PO; -FENTANYL CITRATE/PF 100MCG/2 ML INJ ONE; -KEFLEX250 MG PO; -LIDOCAINE HCL 2% LOCAL 20 ML VIAL ONE; -MIDAZOLAM HCL 2 MG/2 ML VIAL ONE; -SODIUM CHLORIDE 0.9% 500ML 1,000 ML ONE; -ZOFRAN4 MG PO
--- OUTSIDE RECORDS SUMMARY | 2018-09-09 17:07 | XMS REPORT | Continuity of Care Document ---
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 PAIN Active 03/09/2015 [facility] Discharge Diagnosis: Urinary tract infection, site not specified 02/15/2015 02/18/2015 [facility] WEAKNESS Active 02/15/2015 [facility] MRSA1 Active Problem 03/12/2015 Problem added by Discern Expert. [facility] Medications Medication Details Route Status Patient Instructions Ordering Provider Order Date Source Ativan 1 mg, Route: PO, Drug form: TAB, ONCE, Dosing Weight 86.364, kg, Priority: STAT, Start date: 03/09/15 23:44:00, Stop date: 03/09/15 23:44:00 No Longer Active 03/10/2015 [facility] tramadol hydrochloride 50 MG Oral Tablet 50 mg=1 tab, PO, BID, X 15 day, # 30 tab, 0 Refill(s) Active 03/10/2015 [facility] tramadol hydrochloride 50 MG Oral Tablet [Ultram] 1 - 2 tabs, PO, Q4-6H, PRN as needed for pain, X 7 day, # 12 tab, 0 Refill(s) Active 02/16/2015 [facility] Sulfamethoxazole 800 MG / Trimethoprim 160 MG Oral Tablet [Bactrim] 1 tab, PO, BID, # 20 tab, 0 Refill(s) Active 02/16/2015 [facility] Rocephin 1 gm, Route: IM, ONCE, Dosing Weight 84.091, kg, Start date: 02/15/15 17:48:00, Stop date: 02/15/15 17:48:00 Inactive 02/15/2015 [facility] Ondansetron 4 mg, 2 mL, Route: IVP, Drug form: INJ, ONCE, Dosing Weight 84.091, kg, Priority: STAT, Start date: 02/15/15 15:36:00, Stop date: 02/15/15 15:36:00Notes: (Same as: [employer]) MEDICATION WASTE Product Size: 4 mg Product Wasted: ___ mg Inactive 02/15/2015 [facility] Sodium Chloride 0.154 MEQ/ML Injectable Solution 1,000 mL, 1000 ml/hr, Infuse Over: 1 hr, Route: IV, 1,000, Drug form: INJ, ONCE, Priority: STAT, Dosing Weight 84.091 kg, Start date: 02/15/15 15:36:00, Duration: 1 doses or times, Stop date: 02/15/15 15:36:00 Inactive 02/15/2015 [facility] Saline Flush 0.9% 10 mL, Route: IVP, Drug Form: INJ, Dosing Weight 84.091, kg, PRN, PRN Line Flush, Start date: 02/15/15 15:36:00, Duration: 30 day, Stop date: 03/17/15 15:35:00Notes: Same as: BD Posiflush Sterile Inactive 02/15/2015 [facility] Allergies, Adverse Reactions, Alerts Substance Category Reaction Severity Reaction type Status Date Reported Comments Source diphenhydrAMINE Assertion Drug allergy Active [facility] Immunizations No Data Provided for This Section Results Order Name Results Value Reference Range Date Interpretation Comments Source URINE AND STOOL UA Urobilinogen <=1.0 mg/dL 0.1 - 1.0 02/15/2015 [facility] URINE AND STOOL UA Protein 100 mg/dL Negative mg/dL 02/15/2015 [facility] URINE AND STOOL UA Glucose Negative mg/dL Negative mg/dL 02/15/2015 [facility] URINE AND STOOL UA Ketones Negative mg/dL Negative mg/dL 02/15/2015 [facility] URINE AND STOOL UA Bili Negative *NA* (02/15/15 4:54 PM) Negative 02/15/2015 [facility] URINE AND STOOL UA Blood Moderate *ABN* (02/15/15 4:54 PM) Negative 02/15/2015 [facility] URINE AND STOOL UA Nitrite Positive *ABN* (02/15/15 4:54 PM) Negative 02/15/2015 [facility] URINE AND STOOL UA Leuk Est Large *ABN* (02/15/15 4:54 PM) Negative 02/15/2015 [facility] URINE AND STOOL UA Sq Epi Few /LPF Few /LPF 02/15/2015 [facility] URINE AND STOOL UA WBC >182 0 - 5 02/15/2015 [facility] URINE AND STOOL UA RBC 155 0 - 2 02/15/2015 [facility] URINE AND STOOL UA Bacteria Many /HPF None Seen /HPF 02/15/2015 [facility] URINE AND STOOL UA WBC Cast 34 <=0 /LPF 02/15/2015 [facility] URINE AND STOOL UA Mucus Few /LPF None Seen /LPF 02/15/2015 [facility] URINE AND STOOL UA Color Yellow *NA* (02/15/15 4:54 PM) Yellow 02/15/2015 [facility] URINE AND STOOL UA Turbidity Marked *ABN* (02/15/15 4:54 PM) Clear 02/15/2015 [facility] URINE AND STOOL UA pH 5.0 5.0 - 8.0 02/15/2015 [facility] URINE AND STOOL UA Spec Grav 1.018 <=1.030 02/15/2015 [facility] CHEM PANEL A/G Ratio 0.6 0.7 - 1.6 02/15/2015 [facility] CHEM PANEL Globulin 5.8 2.0 - 4.0 02/15/2015 [facility] CHEM PANEL B/C Ratio 12 6 - 25 02/15/2015 [facility] CHEM PANEL AGAP 12.6 10.0 - 20.0 02/15/2015 [facility] CHEM PANEL Alk Phos 115 39 - 136 02/15/2015 [facility] CHEM PANEL AST 28 0 - 37 02/15/2015 [facility] CHEM PANEL Bili Total 0.3 0.2 - 1.3 02/15/2015 [facility] CHEM PANEL eGFR 73 02/15/2015 Result Comment: [...] should be multiplied by the estimated BMI. [facility] CHEM PANEL ALT 25 0 - 65 02/15/2015 [facility] CHEM PANEL Albumin Lvl 3.4 3.5 - 5.0 02/15/2015 [facility] CHEM PANEL Total Protein 9.2 6.4 - 8.4 02/15/2015 [facility] CHEM PANEL Calcium Lvl 9.1 8.5 - 10.5 02/15/2015 [facility] CHEM PANEL CO2 26 24 - 32 02/15/2015 [facility] CHEM PANEL Sodium Lvl 140 135 - 145 02/15/2015 [facility] CHEM PANEL Chloride Lvl 106 95 - 109 02/15/2015 [facility] CHEM PANEL Potassium Lvl 4.6 3.5 - 5.1 02/15/2015 [facility] CHEM PANEL Creatinine Lvl 0.91 0.50 - 1.40 02/15/2015 [facility] CHEM PANEL BUN 11 7 - 22 02/15/2015 [facility] CHEM PANEL Glucose Lvl 118 70 - 99 02/15/2015 [facility] ENDOCRINOLOGY S Preg Negative *NA* (02/15/15 4:40 PM) Negative 02/15/2015 [facility] HEMATOLOGY Lymphocytes 32.8 20.0 - 40.0 02/15/2015 [facility] HEMATOLOGY Segs 60.0 45.0 - 75.0 02/15/2015 [facility] HEMATOLOGY Eosinophils # 0.2 0.0 - 0.5 02/15/2015 [facility] HEMATOLOGY Basophils # 0.2 0.0 - 0.2 02/15/2015 [facility] HEMATOLOGY Monocytes 4.6 2.0 - 12.0 02/15/2015 [facility] HEMATOLOGY Eosinophils 1.2 0.0 - 4.0 02/15/2015 [facility] HEMATOLOGY Basophils 1.4 0.0 - 1.0 02/15/2015 [facility] HEMATOLOGY Segs-Bands # 7.3 1.5 - 8.1 02/15/2015 [facility] Monocytes # 0.6 0.0 - 0.8 02/15/2015 [facility] HEMATOLOGY Lymphocytes # 4.0 1.0 - 5.5 02/15/2015 [facility] HEMATOLOGY Plt Morph Clumped (02/15/15 4:40 PM) 02/15/2015 [facility] RBC Morph Normal (02/15/15 4:40 PM) 02/15/2015 [facility] HEMATOLOGY MPV 8.7 7.4 - 10.4 02/15/2015 [facility] HEMATOLOGY WBC 12.0 3.7 - 10.4 02/15/2015 [facility] HEMATOLOGY RBC 4.90 4.20 - 5.40 02/15/2015 [facility] HEMATOLOGY Hct 39.0 36.0 - 48.0 02/15/2015 [facility] HEMATOLOGY MCV 79.7 80.0 - 98.0 02/15/2015 [facility] HEMATOLOGY Hgb 12.0 12.0 - 16.0 02/15/2015 [facility] HEMATOLOGY RDW 14.8 11.5 - 14.5 02/15/2015 [facility] HEMATOLOGY MCHC 30.8 32.0 - 36.0 02/15/2015 [facility] HEMATOLOGY Platelet 220 133 - 450 02/15/2015 [facility] HEMATOLOGY MCH 24.5 27.0 - 31.0 02/15/2015 [facility] Pathology Reports No Data Provided for This Section Diagnostic Reports No Data Provided for This Section Consultation Notes No Data Provided for This Section Discharge Summaries No Data Provided for This Section History and Physicals No Data Provided for This Section Vital Signs Vital Sign Value Date Comments Source Weight 86.364 03/10/2015 [facility] Temperature Oral (F) 97.9 F 03/10/2015 [facility] Respitory Rate 18 03/10/2015 [facility] Heart Rate 91 03/10/2015 [facility] Systolic (mm Hg) 140 03/10/2015 [facility] Diastolic (mm Hg) 99 03/10/2015 [facility] Temperature Oral (F) 98.4 F 02/16/2015 [facility] Respitory Rate 18 02/16/2015 [facility] Heart Rate 97 02/16/2015 [facility] Systolic (mm Hg) 142 02/16/2015 [facility] Diastolic (mm Hg) 82 02/16/2015 [facility] Systolic (mm Hg) 147 02/15/2015 [facility] Diastolic (mm Hg) 93 02/15/2015 [facility] Weight 84.091 02/15/2015 [facility] BMI Calculated 36.21 02/15/2015 [facility] Height 152.4 cm 02/15/2015 [facility] Heart Rate 76 02/15/2015 [facility] Respitory Rate 18 02/15/2015 [facility] Temperature Oral (F) 98.1 F 02/15/2015 [facility] Encounters Location Location Details Encounter Type Encounter Number Reason For Visit Attending Provider ADM Date DC Date Status Source [facility] [id number] Cee Griffithmary 02/15/2015 02/16/[address] [facility] [id number] Kelby Lyons 03/10/2015 03/10/2015 [facility] Procedures No Data Provided for This Section Assessment and Plan No Data Provided for This Section Plan of Care No Data Provided for This Section Social History Social History Date Source Social History TypeResponse Smoking Status Never smoker; Exposure to Tobacco Smoke None; Cigarette Smoking Last 365 Days No; Reg Smoking Cessation Counseling No 03/10/2015 [facility] Family History No Data Provided for This Section Advance Directives No Data Provided for This Section Functional Status No Data Provided for This Section
[2018-09-09] MEDS ORDERED: CEFTRIAXONE SOD 1 GM/NS 50 ML 50 ML IV ONE (17:17)
[2018-09-09] MEDS ORDERED: SODIUM CHLORIDE 0.9% 1000ML 1,000 ML IV STA (17:17)
[2018-09-09] MEDS ORDERED: ONDANSETRON HCL INJ 2MG/ML 2ML 2 MG/ML VIAL IV ONE (17:17)
[2018-09-09] MEDS ORDERED: MORPHINE SULFATE INJ 4 MG/ML INJ 1ML IV ONE (17:17)
[2018-09-09 17:58] LABS: BASOPHILS # (AUTO) 0.1 (0.0-0.1); BASOPHILS % 0.3 % (0.0-1.0); EOSINOPHILS # (AUTO) 0.1 (0.0-0.4); EOSINOPHILS % 0.3 % (0.0-6.0); HEMATOCRIT 36.1 % (34.2-44.1); HEMOGLOBIN 11.5 g/dL (12.0-16.0); LYMPHOCYTES # (AUTO) 1.6 (1.0-3.2); LYMPHOCYTES % 10.1 % (18.0-39.1); MEAN CORPUSCULAR HEMOGLOBIN 25.6 pg (28-32); MEAN CORPUSCULAR HGB CONC 31.9 g/dL (31-35); MEAN CORPUSCULAR VOLUME 80.2 fL (81-99); MONOCYTES # (AUTO) 0.4 (0.2-0.8); MONOCYTES % 2.6 % (4.4-11.3); NEUTROPHILS # (AUTO) 13.1 (2.1-6.9); PLATELET COUNT 390 x10e3/uL (140-360)
[2018-09-09 18:17] LABS: ALBUMIN 3.6 g/dL (3.5-5.0); ALBUMIN/GLOBULIN RATIO 0.7 (0.8-2.0); ANION GAP 18.2 mmol/L (8-16); CALCIUM 9.8 mg/dL (8.4-10.2); CREATININE, SERUM 1.06 mg/dL (0.57-1.11); POTASSIUM 3.2 mmol/L (3.5-5.1)
[2018-09-09] MEDS ORDERED: MORPHINE SULFATE 2 MG/ML SYR 1ML IV PRN (18:30)
[2018-09-09] MEDS ORDERED: SODIUM CHLORIDE 0.9% 1000ML 1,000 ML IV ONE (18:30)
--- NOTE | 2018-09-09 18:41 | Diagnostic Imaging Report ---
RADIOGRAPH(S) OF THE ABDOMEN AND PELVIS, 2 view(s) HISTORY: Abdominal pain, right kidney drain COMPARISON: CT of the abdomen and pelvis May 29, 2018. Abdominal pelvic radiographs May 06, 2018. FINDINGS: No specific evidence of obstruction or ileus. Unchanged appearance of the right nephrostomy tube. Unchanged appearance of the 2 left-sided ureteral stents. Unchanged multiple metallic surgical clips within the pelvis. Presumed Echeverria catheter, the tip of the catheter is not definitively visualized in the region of the urinary bladder. The bones are partially obscured by stool and overlying bowel gas. Cholelithiasis. IMPRESSION: 1. Nonobstructive bowel gas pattern. 2. Unchanged appearance of the right nephrostomy tube and left ureteral stents. 3. Cholelithiasis. Signed by: Dr. Karlo Michael D.O., M.M.M. on 09/09/2018 6:37 PM
--- OUTSIDE RECORDS SUMMARY | 2018-09-09 18:53 | XMS REPORT | Continuity of Care Document ---
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 PAIN Active 03/09/2015 [facility] Discharge Diagnosis: Urinary tract infection, site not specified 02/15/2015 02/18/2015 [facility] WEAKNESS Active 02/15/2015 [facility] MRSA1 Active Problem 03/12/2015 Problem added by Discern Expert. [facility] Medications Medication Details Route Status Patient Instructions Ordering Provider Order Date Source Ativan 1 mg, Route: PO, Drug form: TAB, ONCE, Dosing Weight 86.364, kg, Priority: STAT, Start date: 03/09/15 23:44:00, Stop date: 03/09/15 23:44:00 No Longer Active 03/10/2015 [facility] tramadol hydrochloride 50 MG Oral Tablet 50 mg=1 tab, PO, BID, X 15 day, # 30 tab, 0 Refill(s) Active 03/10/2015 [facility] tramadol hydrochloride 50 MG Oral Tablet [Ultram] 1 - 2 tabs, PO, Q4-6H, PRN as needed for pain, X 7 day, # 12 tab, 0 Refill(s) Active 02/16/2015 [facility] Sulfamethoxazole 800 MG / Trimethoprim 160 MG Oral Tablet [Bactrim] 1 tab, PO, BID, # 20 tab, 0 Refill(s) Active 02/16/2015 [facility] Rocephin 1 gm, Route: IM, ONCE, Dosing Weight 84.091, kg, Start date: 02/15/15 17:48:00, Stop date: 02/15/15 17:48:00 Inactive 02/15/2015 [facility] Ondansetron 4 mg, 2 mL, Route: IVP, Drug form: INJ, ONCE, Dosing Weight 84.091, kg, Priority: STAT, Start date: 02/15/15 15:36:00, Stop date: 02/15/15 15:36:00Notes: (Same as: [facility]) MEDICATION WASTE Product Size: 4 mg Product Wasted: ___ mg Inactive 02/15/2015 [facility] Sodium Chloride 0.154 MEQ/ML Injectable Solution 1,000 mL, 1000 ml/hr, Infuse Over: 1 hr, Route: IV, 1,000, Drug form: INJ, ONCE, Priority: STAT, Dosing Weight 84.091 kg, Start date: 02/15/15 15:36:00, Duration: 1 doses or times, Stop date: 02/15/15 15:36:00 Inactive 02/15/2015 [facility] Saline Flush 0.9% 10 mL, Route: IVP, Drug Form: INJ, Dosing Weight 84.091, kg, PRN, PRN Line Flush, Start date: 02/15/15 15:36:00, Duration: 30 day, Stop date: 03/17/15 15:35:00Notes: Same as: BD Posiflush Sterile Inactive 02/15/2015 [facility] Allergies, Adverse Reactions, Alerts Substance Category Reaction Severity Reaction type Status Date Reported Comments Source diphenhydrAMINE Assertion Drug allergy Active [facility] Immunizations No Data Provided for This Section Results Order Name Results Value Reference Range Date Interpretation Comments Source URINE AND STOOL UA Urobilinogen <=1.0 mg/dL 0.1 - 1.0 02/15/2015 [facility] URINE AND STOOL UA Protein 100 mg/dL Negative mg/dL 02/15/2015 [facility] URINE AND STOOL UA Glucose Negative mg/dL Negative mg/dL 02/15/2015 [facility] URINE AND STOOL UA Ketones Negative mg/dL Negative mg/dL 02/15/2015 [facility] URINE AND STOOL UA Bili Negative *NA* (02/15/15 4:54 PM) Negative 02/15/2015 [facility] URINE AND STOOL UA Blood Moderate *ABN* (02/15/15 4:54 PM) Negative 02/15/2015 [facility] URINE AND STOOL UA Nitrite Positive *ABN* (02/15/15 4:54 PM) Negative 02/15/2015 [facility] URINE AND STOOL UA Leuk Est Large *ABN* (02/15/15 4:54 PM) Negative 02/15/2015 [facility] URINE AND STOOL UA Sq Epi Few /LPF Few /LPF 02/15/2015 [facility] URINE AND STOOL UA WBC >182 0 - 5 02/15/2015 [facility] URINE AND STOOL UA RBC 155 0 - 2 02/15/2015 [facility] URINE AND STOOL UA Bacteria Many /HPF None Seen /HPF 02/15/2015 [facility] URINE AND STOOL UA WBC Cast 34 <=0 /LPF 02/15/2015 [facility] URINE AND STOOL UA Mucus Few /LPF None Seen /LPF 02/15/2015 [facility] URINE AND STOOL UA Color Yellow *NA* (02/15/15 4:54 PM) Yellow 02/15/2015 [facility] URINE AND STOOL UA Turbidity Marked *ABN* (02/15/15 4:54 PM) Clear 02/15/2015 [facility] URINE AND STOOL UA pH 5.0 5.0 - 8.0 02/15/2015 [facility] URINE AND STOOL UA Spec Grav 1.018 <=1.030 02/15/2015 [facility] CHEM PANEL A/G Ratio 0.6 0.7 - 1.6 02/15/2015 [facility] CHEM PANEL Globulin 5.8 2.0 - 4.0 02/15/2015 [facility] CHEM PANEL B/C Ratio 12 6 - 25 02/15/2015 [facility] CHEM PANEL AGAP 12.6 10.0 - 20.0 02/15/2015 [facility] CHEM PANEL Alk Phos 115 39 - 136 02/15/2015 [facility] CHEM PANEL AST 28 0 - 37 02/15/2015 [facility] CHEM PANEL Bili Total 0.3 0.2 - 1.3 02/15/2015 [facility] CHEM PANEL eGFR 73 02/15/2015 Result [...] should be multiplied by the estimated BMI. [facility] CHEM PANEL ALT 25 0 - 65 02/15/2015 [facility] CHEM PANEL Albumin Lvl 3.4 3.5 - 5.0 02/15/2015 [facility] CHEM PANEL Total Protein 9.2 6.4 - 8.4 02/15/2015 [facility] CHEM PANEL Calcium Lvl 9.1 8.5 - 10.5 02/15/2015 [facility] CHEM PANEL CO2 26 24 - 32 02/15/2015 [facility] CHEM PANEL Sodium Lvl 140 135 - 145 02/15/2015 [facility] CHEM PANEL Chloride Lvl 106 95 - 109 02/15/2015 [facility] CHEM PANEL Potassium Lvl 4.6 3.5 - 5.1 02/15/2015 [facility] CHEM PANEL Creatinine Lvl 0.91 0.50 - 1.40 02/15/2015 [facility] CHEM PANEL BUN 11 7 - 22 02/15/2015 [facility] CHEM PANEL Glucose Lvl 118 70 - 99 02/15/2015 [facility] ENDOCRINOLOGY S Preg Negative *NA* (02/15/15 4:40 PM) Negative 02/15/2015 [facility] HEMATOLOGY Lymphocytes 32.8 20.0 - 40.0 02/15/2015 [facility] HEMATOLOGY Segs 60.0 45.0 - 75.0 02/15/2015 [facility] HEMATOLOGY Eosinophils # 0.2 0.0 - 0.5 02/15/2015 [facility] HEMATOLOGY Basophils # 0.2 0.0 - 0.2 02/15/2015 [facility] HEMATOLOGY Monocytes 4.6 2.0 - 12.0 02/15/2015 [facility] HEMATOLOGY Eosinophils 1.2 0.0 - 4.0 02/15/2015 [facility] HEMATOLOGY Basophils 1.4 0.0 - 1.0 02/15/2015 [facility] HEMATOLOGY Segs-Bands # 7.3 1.5 - 8.1 02/15/2015 [facility] Monocytes # 0.6 0.0 - 0.8 02/15/2015 [facility] HEMATOLOGY Lymphocytes # 4.0 1.0 - 5.5 02/15/2015 [facility] HEMATOLOGY Plt Morph Clumped (02/15/15 4:40 PM) 02/15/2015 [facility] RBC Morph Normal (02/15/15 4:40 PM) 02/15/2015 [facility] HEMATOLOGY MPV 8.7 7.4 - 10.4 02/15/2015 [facility] HEMATOLOGY WBC 12.0 3.7 - 10.4 02/15/2015 [facility] HEMATOLOGY RBC 4.90 4.20 - 5.40 02/15/2015 [facility] HEMATOLOGY Hct 39.0 36.0 - 48.0 02/15/2015 [facility] HEMATOLOGY MCV 79.7 80.0 - 98.0 02/15/2015 [facility] HEMATOLOGY Hgb 12.0 12.0 - 16.0 02/15/2015 [facility] HEMATOLOGY RDW 14.8 11.5 - 14.5 02/15/2015 [facility] HEMATOLOGY MCHC 30.8 32.0 - 36.0 02/15/2015 [facility] HEMATOLOGY Platelet 220 133 - 450 02/15/2015 [facility] HEMATOLOGY MCH 24.5 27.0 - 31.0 02/15/2015 [facility] Pathology Reports No Data Provided for This Section Diagnostic Reports No Data Provided for This Section Consultation Notes No Data Provided for This Section Discharge Summaries No Data Provided for This Section History and Physicals No Data Provided for This Section Vital Signs Vital Sign Value Date Comments Source Weight 86.364 03/10/2015 [facility] Temperature Oral (F) 97.9 F 03/10/2015 [facility] Respitory Rate 18 03/10/2015 [facility] Heart Rate 91 03/10/2015 [facility] Systolic (mm Hg) 140 03/10/2015 [facility] Diastolic (mm Hg) 99 03/10/2015 [facility] Temperature Oral (F) 98.4 F 02/16/2015 [facility] Respitory Rate 18 02/16/2015 [facility] Heart Rate 97 02/16/2015 [facility] Systolic (mm Hg) 142 02/16/2015 [facility] Diastolic (mm Hg) 82 02/16/2015 [facility] Systolic (mm Hg) 147 02/15/2015 [facility] Diastolic (mm Hg) 93 02/15/2015 [facility] Weight 84.091 02/15/2015 [facility] BMI Calculated 36.21 02/15/2015 [facility] Height 152.4 cm 02/15/2015 [facility] Heart Rate 76 02/15/2015 [facility] Respitory Rate 18 02/15/2015 [facility] Temperature Oral (F) 98.1 F 02/15/2015 [facility] Encounters Location Location Details Encounter Type Encounter Number Reason For Visit Attending Provider ADM Date DC Date Status Source [facility] [id number] Cee Griffithmary 02/15/2015 02/16/2015 [facility] [id number] Kelby Lyons 03/10/2015 03/10/2015 [facility] Procedures No Data Provided for This Section Assessment and Plan No Data Provided for This Section Plan of Care No Data Provided for This Section Social History Social History Date Source Social History TypeResponse Smoking Status Never smoker; Exposure to Tobacco Smoke None; Cigarette Smoking Last 365 Days No; Reg Smoking Cessation Counseling No 03/10/2015 [facility] Family History No Data Provided for This Section Advance Directives No Data Provided for This Section Functional Status No Data Provided for This Section
[2018-09-09 19:14] LABS: BILIRUBIN,URINE NEGATIVE (NEGATIVE); CLARITY,URINE SL CLOUDY (CLEAR); KETONES,URINE NEGATIVE (NEGATIVE); LEUKOCYTE ESTERASE ,URINE LARGE (NEGATIVE); NITRITE,URINE NEGATIVE (NEGATIVE); PROTEIN,URINE DIPSTICK NEGATIVE (NEGATIVE); URINE UROBILINOGEN 0.2 mg/dL (0.2 - 1)
[2018-09-09] MEDS: CEFEPIME 2 GM/NS 0.9% 100 ML 100 ML IV SCH (19:15)
[2018-09-09 19:22] LABS: COLOR,URINE OTHER (YELLOW)
[2018-09-09 19:24] LABS: AMORPHOUS SEDIMENT,URINE MODERATE (FEW); BACTERIA,URINE MANY /HPF
[2018-09-09] MEDS: LINEZOLID 600 MG/D5W 300ML 300 ML IV SCH (20:06)
[2018-09-09] MEDS: MORPHINE SULFATE INJ 4 MG/ML INJ 1ML IV PRN (21:50)
[2018-09-09] MEDS ORDERED: DICYCLOMINE HCL20 MG PO (23:04)
[2018-09-10] MEDS: ONDANSETRON HCL INJ 2MG/ML 2ML 2 MG/ML VIAL IV PRN ×3 (04:04→18:43)
[2018-09-10] MEDS: MORPHINE SULFATE INJ 4 MG/ML INJ 1ML IV PRN ×3 (04:04→18:43)
[2018-09-10 05:43] LABS: BASOPHILS % 0.5 % (0.0-1.0); EOSINOPHILS # (AUTO) 0.1 (0.0-0.4); EOSINOPHILS % 1.4 % (0.0-6.0); HEMATOCRIT 32.7 % (34.2-44.1); LYMPHOCYTES # (AUTO) 1.8 (1.0-3.2); LYMPHOCYTES % 20.4 % (18.0-39.1); MEAN CORPUSCULAR HEMOGLOBIN 25.3 pg (28-32); MEAN CORPUSCULAR HGB CONC 30.6 g/dL (31-35); MEAN CORPUSCULAR VOLUME 82.6 fL (81-99); MONOCYTES # (AUTO) 0.6 (0.2-0.8); MONOCYTES % 6.3 % (4.4-11.3); NEUTROPHILS # (AUTO) 6.3 (2.1-6.9); NEUTROPHILS % 70.8 % (38.7-80.0); PLATELET COUNT 307 x10e3/uL (140-360); RED BLOOD COUNT 3.96 x10e6/uL (3.6-5.1)
[2018-09-10 06:03] LABS: ALBUMIN 2.9 g/dL (3.5-5.0); ALBUMIN/GLOBULIN RATIO 0.6 (0.8-2.0); ANION GAP 13.2 mmol/L (8-16); CALCIUM 9.1 mg/dL (8.4-10.2); CREATININE, SERUM 0.99 mg/dL (0.57-1.11); POTASSIUM 3.2 mmol/L (3.5-5.1)
[2018-09-10] MEDS: CEFEPIME 2 GM/NS 0.9% 100 ML 100 ML IV SCH ×2 (06:42→18:10)
--- NOTE | 2018-09-10 07:04 | NUR ---
REPORT TO SHARRI CASTAÑEDA
[2018-09-10] MEDS: LINEZOLID 600 MG/D5W 300ML 300 ML IV SCH ×2 (07:33→19:10)
--- NOTE | 2018-09-10 16:35 | NUR ---
patient arrived to unit via stretcher, alert and oriented. call lyn within reach and bed in lowest position
[2018-09-10] MEDS ORDERED: POTASSIUM CHLORIDE 20 MEQ TAB CR PO ONE (16:36)
[2018-09-10 16:46] VITALS: BP 138/72
[2018-09-10 16:57] VITALS: BP 138/72
[2018-09-10 17:01] VITALS: BP 138/72
--- NOTE | 2018-09-10 18:55 | NUR ---
rounded with network admin nurse, patient aware of change and resting comfortably. call lyn within reach and bed in lowest position.
--- NOTE | 2018-09-10 19:40 | NUR ---
Pt complained of hunger, asked for diet change. Pt denies n/v/d. No procedures scheduled. Dr. Rodriguez ordered new ADA diet.
--- NOTE | 2018-09-10 19:56 | Consultation ---
DATE OF CONSULTATION: 09/10/2018 REASON FOR CONSULTATION: Suprapubic pain, abdominal pain. HISTORY OF PRESENT ILLNESS: This patient, who is a 57-year-old female, history of recurrent UTI, history of multidrug-resistant pathogen. The patient comes into the emergency room with suprapubic pain, not feeling well. No fever, no chills, but she had similar pain, whenever she has cystitis. 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 Discussed with the ER physician. Recommend to put her on cefepime and Zyvox in the meantime. The patient is going to be admitted because of severity of the pain. The patient has history of UTI, history of nephrostomy on the right, history stent placement, history of hydronephrosis. She is well known to Dr. Darby and discussed the case with him in the meantime. The patient to have excessive history of UTI before and complication. PAST SURGICAL HISTORY: Stent placement as mentioned above. ALLERGIES: NKA. SOCIAL HISTORY: Currently, there is no smoking, drug abuse, or alcohol abuse. FAMILY HISTORY: Hypertension. REVIEW OF SYSTEMS: HEENT: There is no headache, visual changes, or hearing changes. GI: There is no nausea, no vomiting, no diarrhea. CARDIAC: There is no arrhythmia. : There is urgency. There is frequency, suprapubic pain. SKIN: There is no rash. All other symptoms within normal limit. MEDICATION LIST: Reviewed. She is currently on linezolid, Zofran, and cefepime. LABORATORY DATA: Reviewed. Sodium when she first came was , hemoglobin 11.5, sodium 140, potassium 3.2, and creatinine 1.06. IMPRESSION: 1. Urinary tract infection, probably pyelonephritis colonization with multidrug-resistant. We will put the patient on cefepime and Zyvox. 2. She is going to await the final result. Recheck CBC. Recheck chem panel. 3. Suprapubic pain. 4. History of stent, history of urinary tract infection before. Discussed with Urology. May need an ultrasound of the kidneys. We will follow with you. Recheck CBC. Recheck chem panel. MD CACHORRO Parrish /[id number]
--- NOTE | 2018-09-10 20:00 | NUR ---
Bedside rounds completed with morning nurse. Pt alert to name. Lying in bed HOB 60 degrees. Pt denies pain at this time. Bed low and locked. Call lyn within reach. Will continue to monitor. Addendum: 09/10/18 at 2135 by Lance Sullivan RN time 1900
[2018-09-10 20:34] VITALS: BP 127/71
[2018-09-10 21:00] VITALS: BP 127/71
[2018-09-11] VITALS (8 sets, daily range): BP systolic 105–126; BP diastolic 62–74
[2018-09-11] MEDS: MORPHINE SULFATE INJ 4 MG/ML INJ 1ML IV PRN ×2 (00:40→16:50)
[2018-09-11] MEDS: CEFEPIME 2 GM/NS 0.9% 100 ML 100 ML IV SCH ×2 (05:58→17:35)
[2018-09-11] MEDS: LINEZOLID 600 MG/D5W 300ML 300 ML IV SCH ×2 (06:30→18:21)
--- NOTE | 2018-09-11 06:47 | NUR ---
Pt awake and alert. Lying in bed. No c/o pain at this time. Call lyn within reach.
--- NOTE | 2018-09-11 07:30 | NUR ---
REC'D PT AAOX3, LAYING IN BED ON ROOM AIR WITH NO S/S OF DISTRESS, IV TO THE LEFT HAND INTACT AND PATENT, MEI HANGING BELOW BLADDER, NEPHROSTOMY BAG TO RIGHT SIDE AND URINE FLOWING, AND FLUIDS RUNNING. SIDE RAILS UPX2, CALL CHUNG WITHIN REACH, AND BED IN LOWEST POSITION.
[2018-09-11] MEDS ORDERED: BUSPIRONE HCL 10 MG TABLET PO PRN (08:30)
[2018-09-11] MEDS ORDERED: SODIUM CHLORIDE 0.9% 1000ML 1,000 ML ONE (09:29)
[2018-09-11] MEDS: DICYCLOMINE HCL 20 MG TAB PO SCH (10:10)
[2018-09-11] MEDS: LISINOPRIL 2.5 MG TAB PO SCH (10:11)
--- NOTE | 2018-09-11 17:30 | NUR ---
PT REFUSED MEI LEG STRAP BECAUSE SHE STATED THAT HER LEG IS TOO BIG FOR IT.
--- NOTE | 2018-09-11 18:41 | NUR ---
PT IS LAYING IN SEMI-FOWLERS POSITION WITH NO S/S OF DISTRESS. BED IN LOWEST POSITION, SIDE RAILS UPX2, AND CALL CHUNG WITHIN REACH.
--- NOTE | 2018-09-11 19:55 | NUR ---
BS rounds completed with morning nurse. Pt alert to name. Lying in bed HOB 45 degrees. Denies pain at this time. Call lyn within reach. Will continue to monitor. Addendum: 09/11/18 at 2122 by Lance Sullivan RN [id number]
[2018-09-12] VITALS (7 sets, daily range): BP systolic 110–147; BP diastolic 59–78
[2018-09-12 06:05] LABS: BASOPHILS % 0.3 % (0.0-1.0); EOSINOPHILS # (AUTO) 0.2 (0.0-0.4); EOSINOPHILS % 1.8 % (0.0-6.0); HEMATOCRIT 30.4 % (34.2-44.1); HEMOGLOBIN 9.3 g/dL (12.0-16.0); LYMPHOCYTES # (AUTO) 1.8 (1.0-3.2); LYMPHOCYTES % 19.2 % (18.0-39.1); MEAN CORPUSCULAR HEMOGLOBIN 24.9 pg (28-32); MEAN CORPUSCULAR HGB CONC 30.6 g/dL (31-35); MEAN CORPUSCULAR VOLUME 81.3 fL (81-99); MONOCYTES # (AUTO) 0.5 (0.2-0.8); MONOCYTES % 5.2 % (4.4-11.3); NEUTROPHILS # (AUTO) 6.9 (2.1-6.9); NEUTROPHILS % 73.2 % (38.7-80.0); PLATELET COUNT 279 x10e3/uL (140-360); RED BLOOD COUNT 3.74 x10e6/uL (3.6-5.1); RED CELL DISTRIBUTION WIDTH 15.9 % (11.7-14.4)
[2018-09-12] MEDS: CEFEPIME 2 GM/NS 0.9% 100 ML 100 ML IV SCH (06:15)
[2018-09-12] MEDS: MORPHINE SULFATE INJ 4 MG/ML INJ 1ML IV PRN (06:20)
[2018-09-12 06:25] LABS: ANION GAP 14.1 mmol/L (8-16); CALCIUM 9.2 mg/dL (8.4-10.2); CREATININE, SERUM 1.14 mg/dL (0.57-1.11); POTASSIUM 3.1 mmol/L (3.5-5.1)
[2018-09-12] MEDS: LINEZOLID 600 MG/D5W 300ML 300 ML IV SCH (07:09)
--- NOTE | 2018-09-12 07:30 | NUR ---
REC'D PT AAOX3, ON ROOM AIR, NO S/S OF DISTRESS, RIGHT NEPHROSTOMY BAG DRAINING YELLOW URINE, LEG BAG ATTACHED TO MEI CATHETER. IV TO THE RIGHT HAND 20 GAUGE INTACT AND PATENT. SIDE RAILS UPX2, CALL CHUNG WITHIN REACH, AND BED IN LOWEST POSITION.
[2018-09-12] MEDS: LISINOPRIL 2.5 MG TAB PO SCH (08:31)
[2018-09-12] MEDS: DICYCLOMINE HCL 20 MG TAB PO SCH (08:31)
[2018-09-12] MEDS ORDERED: POTASSIUM CHLORIDE 20 MEQ TAB CR PO ONE ×2 (10:00→14:00)
--- NOTE | 2018-09-12 11:35 | NUR ---
PATIENT IS LAYING IN BED RESTING WITH NO S/S OF DISTRESS. BED IN LOWEST POSITION, SIDE RAILS UPX2, AND CALL CHUNG WITHIN REACH.
--- NOTE | 2018-09-12 13:08 | NUR ---
MEI CARE PROVIDED WITH CASTILE SOAP TOWELETTE.
--- NOTE | 2018-09-12 18:12 | NUR ---
PT IS LAYING IN BED TALKING ON THE PHONE. NO S/S OF DISTRESS. BED IN LOWEST POSITION, SIDE RAILS UPX2, AND CALL CHUNG WITHIN REACH.
--- NOTE | 2018-09-12 18:55 | NUR ---
Completed BS rounds with morning nurse. Pt awake and oriented to name. Denies pain at this time. Call lyn within reach. Will continue to monitor.
[2018-09-13] VITALS: BP 147/72
[2018-09-13 04:00] VITALS: BP 127/61
[2018-09-13] MEDS: DICYCLOMINE HCL 20 MG TAB PO SCH (08:21)
[2018-09-13] MEDS: LISINOPRIL 2.5 MG TAB PO SCH (08:21)
[2018-09-13 08:25] VITALS: BP 138/84
[2018-09-13] MEDS: MORPHINE SULFATE INJ 4 MG/ML INJ 1ML IV PRN (08:55)
[2018-09-13] MEDS: ONDANSETRON HCL INJ 2MG/ML 2ML 2 MG/ML VIAL IV PRN (08:56)
[2018-09-13] MEDS ORDERED: CEFAZOLIN SOD 1 GM/NS 50ML 50 ML IV SCH (09:00)
[2018-09-13 09:10] VITALS: BP 138/84
[2018-09-13] MEDS ORDERED: KEFLEX250 MG PO (11:23)
[2018-09-13] MEDS ORDERED: ZOFRAN4 MG PO (11:24)
[2018-09-13] MEDS ORDERED: COLACE100 MG PO (11:24)
[2018-09-13 11:54] VITALS: BP 136/71
--- NOTE | 2018-09-13 12:45 | NUR ---
PATIENT DISCHARGE HOME- PATIENT OFF THE UNIT AT 1230 PER WHEELCHAIR ACCOMPANIED BY STAFF MEMBER TO THE PATIENT'S PERSONAL VEHICLE. PATIENT IN STABLE CONDITION WITH NO S/S OF RESPIRATORY DISTRESS. NO PAIN VOICED. IV REMOVED WITH TIP INTACT. RIGHT NEPHROSTOMY INTACT AND DRAINING; MEI INTACT AND DRAINING TO A LEG BAG. DISCHARGE TEACHING, INSTRUCTIONS, AND MEDICATIONS GIVEN TO THE PATIENT. ALL PERSONAL ITEMS TAKEN WITH THE PATIENT.
--- NOTE | 2018-09-14 07:22 | Discharge Summary ---
CONSULTANTS: 1. Matilda Mar MD. 2. Gorge Darby MD. FINAL DIAGNOSES: 1. Complicated urinary tract infection associated with right flank pain, right nephrostomy tube, and left ureteral stents. 2. Hydronephrosis, chronic. 3. Staphylococcus aureus bacteria sensitive to cephalosporin. SUMMARY: This is a 57-year-old female with right nephrostomy tube and left ureteral stent. The patient has stent and nephrostomy tube removal on October 01. The patient came in with complicated urinary tract infection. The patient is otherwise stable. The urine culture grew out to be Staphylococcus aureus. It is sensitive to cephalosporin and currently the patient is on Ancef. The patient is otherwise stable. She will go home today. Follow up with Dr. Darby for removal of the stent and nephrostomy tube in approximately 3 weeks. The patient will take Keflex 250 mg t.i.d. for 21 day and then follow up with Dr. Darby. We will give the patient Tylenol No. 3, Colace, and Zofran as needed as well. The patient is otherwise stable, discharged home today and the patient to follow up with Dr. Darby as instructed. MD HARRIETT Villalba/ELIZ /[id number]
== END 2018-09-13 12:48 | disposition home or self-care (01) | DRG 699 ==
LOC: ER 17:03 → ERHOLD 18:21 → MED/SURG3 09-10 16:35
PROVIDERS: ADMIT Internal Medicine; ATTEND Internal Medicine
DX: T83.593A Infection and inflammatory reaction due to other urinary stents, initial encounter (principal); N13.6 Pyonephrosis; N12 Tubulo-interstitial nephritis, not specified as acute or chronic; Z16.24 Resistance to multiple antibiotics; B95.61 Methicillin susceptible Staphylococcus aureus infection as the cause of diseases classified elsewhere; Z68.38 Body mass index [BMI] 38.0-38.9, adult; E66.9 Obesity, unspecified
CPT/HCPCS: 36415; 74018; 80048; 80053; 81001; 82948; 83036; 84443; 85025; 87086; 87186; 99284; J0690; J2020; J2270; J2405; J7030

== ENCOUNTER → 2018-10-01 | Day surgery (SDC) | payer BC ==
[~2018-10-01] MED LIST changes: +B&O 60MG R/S 60 MG SUPP PR ONE; +COLACE100 MG PO; +DEXAMETHASONE SOD PHOS INJ 4 MG/ML VIAL ONE; +DICYCLOMINE HCL20 MG PO; +FENTANYL CITRATE/PF 100MCG/2 ML INJ ONE; +IOPAMIDOL 610MG/1ML 300 MG/ML VIAL IV ONE; +KEFLEX250 MG PO; +LIDOCAINE HCL 2% LOCAL INJ 5 ML SDV VIAL INJ ONE; +MIDAZOLAM HCL 2 MG/2 ML VIAL ONE; +ONDANSETRON HCL INJ 2MG/ML 2ML 2 MG/ML VIAL ONE; +PIPER-TAZ 3.375 GM 50 ML ONE; +PROPOFOL IV EMULSION 10 MG/ML 20 ML VIAL ONE; +SEVOFLURANE INHAL SOLN 250 ML PEN BTL ONE; +ZOFRAN4 MG PO
--- OUTSIDE RECORDS SUMMARY | 2018-10-01 06:21 | XMS REPORT | Continuity of Care Document ---
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 PAIN Active 03/09/2015 [facility] Discharge Diagnosis: Urinary tract infection, site not specified 02/15/2015 02/18/2015 [facility] WEAKNESS Active 02/15/2015 [facility] MRSA1 Active Problem 03/12/2015 Problem added by Discern Expert. [facility] Medications Medication Details Route Status Patient Instructions Ordering Provider Order Date Source Ativan 1 mg, Route: PO, Drug form: TAB, ONCE, Dosing Weight 86.364, kg, Priority: STAT, Start date: 03/09/15 23:44:00, Stop date: 03/09/15 23:44:00 No Longer Active 03/10/2015 [facility] tramadol hydrochloride 50 MG Oral Tablet 50 mg=1 tab, PO, BID, X 15 day, # 30 tab, 0 Refill(s) Active 03/10/2015 [facility] tramadol hydrochloride 50 MG Oral Tablet [Ultram] 1 - 2 tabs, PO, Q4-6H, PRN as needed for pain, X 7 day, # 12 tab, 0 Refill(s) Active 02/16/2015 [facility] Sulfamethoxazole 800 MG / Trimethoprim 160 MG Oral Tablet [Bactrim] 1 tab, PO, BID, # 20 tab, 0 Refill(s) Active 02/16/2015 [facility] Rocephin 1 gm, Route: IM, ONCE, Dosing Weight 84.091, kg, Start date: 02/15/15 17:48:00, Stop date: 02/15/15 17:48:00 Inactive 02/15/2015 [facility] Ondansetron 4 mg, 2 mL, Route: IVP, Drug form: INJ, ONCE, Dosing Weight 84.091, kg, Priority: STAT, Start date: 02/15/15 15:36:00, Stop date: 02/15/15 15:36:00Notes: (Same as: Wiley) MEDICATION WASTE Product Size: 4 mg Product Wasted: ___ mg Inactive 02/15/2015 [facility] Sodium Chloride 0.154 MEQ/ML Injectable Solution 1,000 mL, 1000 ml/hr, Infuse Over: 1 hr, Route: IV, 1,000, Drug form: INJ, ONCE, Priority: STAT, Dosing Weight 84.091 kg, Start date: 02/15/15 15:36:00, Duration: 1 doses or times, Stop date: 02/15/15 15:36:00 Inactive 02/15/2015 [facility] Saline Flush 0.9% 10 mL, Route: IVP, Drug Form: INJ, Dosing Weight 84.091, kg, PRN, PRN Line Flush, Start date: 02/15/15 15:36:00, Duration: 30 day, Stop date: 03/17/15 15:35:00Notes: Same as: BD Posiflush Sterile Inactive 02/15/2015 [facility] Allergies, Adverse Reactions, Alerts Substance Category Reaction Severity Reaction type Status Date Reported Comments Source diphenhydrAMINE Assertion Drug allergy Active [facility] Immunizations No Data Provided for This Section Results Order Name Results Value Reference Range Date Interpretation Comments Source URINE AND STOOL UA Urobilinogen <=1.0 mg/dL 0.1 - 1.0 02/15/2015 [facility] URINE AND STOOL UA Protein 100 mg/dL Negative mg/dL 02/15/2015 [facility] URINE AND STOOL UA Glucose Negative mg/dL Negative mg/dL 02/15/2015 [facility] URINE AND STOOL UA Ketones Negative mg/dL Negative mg/dL 02/15/2015 [facility] URINE AND STOOL UA Bili Negative *NA* (02/15/15 4:54 PM) Negative 02/15/2015 [facility] URINE AND STOOL UA Blood Moderate *ABN* (02/15/15 4:54 PM) Negative 02/15/2015 [facility] URINE AND STOOL UA Nitrite Positive *ABN* (02/15/15 4:54 PM) Negative 02/15/2015 [facility] URINE AND STOOL UA Leuk Est Large *ABN* (02/15/15 4:54 PM) Negative 02/15/2015 [facility] URINE AND STOOL UA Sq Epi Few /LPF Few /LPF 02/15/2015 [facility] URINE AND STOOL UA WBC >182 0 - 5 02/15/2015 [facility] URINE AND STOOL UA RBC 155 0 - 2 02/15/2015 [facility] URINE AND STOOL UA Bacteria Many /HPF None Seen /HPF 02/15/2015 [facility] URINE AND STOOL UA WBC Cast 34 <=0 /LPF 02/15/2015 [facility] URINE AND STOOL UA Mucus Few /LPF None Seen /LPF 02/15/2015 [facility] URINE AND STOOL UA Color Yellow *NA* (02/15/15 4:54 PM) Yellow 02/15/2015 [facility] URINE AND STOOL UA Turbidity Marked *ABN* (02/15/15 4:54 PM) Clear 02/15/2015 [facility] URINE AND STOOL UA pH 5.0 5.0 - 8.0 02/15/2015 [facility] URINE AND STOOL UA Spec Grav 1.018 <=1.030 02/15/2015 [facility] CHEM PANEL A/G Ratio 0.6 0.7 - 1.6 02/15/2015 [facility] CHEM PANEL Globulin 5.8 2.0 - 4.0 02/15/2015 [facility] CHEM PANEL B/C Ratio 12 6 - 25 02/15/2015 [facility] CHEM PANEL AGAP 12.6 10.0 - 20.0 02/15/2015 [facility] CHEM PANEL Alk Phos 115 39 - 136 02/15/2015 [facility] CHEM PANEL AST 28 0 - 37 02/15/2015 [facility] CHEM PANEL Bili Total 0.3 0.2 - 1.3 02/15/2015 [facility] CHEM PANEL eGFR 73 02/15/2015 Result [...] should be multiplied by the estimated BMI. [facility] CHEM PANEL ALT 25 0 - 65 02/15/2015 [facility] CHEM PANEL Albumin Lvl 3.4 3.5 - 5.0 02/15/2015 [facility] CHEM PANEL Total Protein 9.2 6.4 - 8.4 02/15/2015 [facility] CHEM PANEL Calcium Lvl 9.1 8.5 - 10.5 02/15/2015 [facility] CHEM PANEL CO2 26 24 - 32 02/15/2015 [facility] CHEM PANEL Sodium Lvl 140 135 - 145 02/15/2015 [facility] CHEM PANEL Chloride Lvl 106 95 - 109 02/15/2015 [facility] CHEM PANEL Potassium Lvl 4.6 3.5 - 5.1 02/15/2015 [facility] CHEM PANEL Creatinine Lvl 0.91 0.50 - 1.40 02/15/2015 [facility] CHEM PANEL BUN 11 7 - 22 02/15/2015 [facility] CHEM PANEL Glucose Lvl 118 70 - 99 02/15/2015 [facility] ENDOCRINOLOGY S Preg Negative *NA* (02/15/15 4:40 PM) Negative 02/15/2015 [facility] HEMATOLOGY Lymphocytes 32.8 20.0 - 40.0 02/15/2015 [facility] HEMATOLOGY Segs 60.0 45.0 - 75.0 02/15/2015 [facility] HEMATOLOGY Eosinophils # 0.2 0.0 - 0.5 02/15/2015 [facility] HEMATOLOGY Basophils # 0.2 0.0 - 0.2 02/15/2015 [facility] HEMATOLOGY Monocytes 4.6 2.0 - 12.0 02/15/2015 [facility] HEMATOLOGY Eosinophils 1.2 0.0 - 4.0 02/15/2015 [facility] HEMATOLOGY Basophils 1.4 0.0 - 1.0 02/15/2015 [facility] HEMATOLOGY Segs-Bands # 7.3 1.5 - 8.1 02/15/2015 [facility] Monocytes # 0.6 0.0 - 0.8 02/15/2015 [facility] HEMATOLOGY Lymphocytes # 4.0 1.0 - 5.5 02/15/2015 [facility] HEMATOLOGY Plt Morph Clumped (02/15/15 4:40 PM) 02/15/2015 [facility] RBC Morph Normal (02/15/15 4:40 PM) 02/15/2015 [facility] HEMATOLOGY MPV 8.7 7.4 - 10.4 02/15/2015 [facility] HEMATOLOGY WBC 12.0 3.7 - 10.4 02/15/2015 [facility] HEMATOLOGY RBC 4.90 4.20 - 5.40 02/15/2015 [facility] HEMATOLOGY Hct 39.0 36.0 - 48.0 02/15/2015 [facility] HEMATOLOGY MCV 79.7 80.0 - 98.0 02/15/2015 [facility] HEMATOLOGY Hgb 12.0 12.0 - 16.0 02/15/2015 [facility] HEMATOLOGY RDW 14.8 11.5 - 14.5 02/15/2015 [facility] HEMATOLOGY MCHC 30.8 32.0 - 36.0 02/15/2015 [facility] HEMATOLOGY Platelet 220 133 - 450 02/15/2015 [facility] HEMATOLOGY MCH 24.5 27.0 - 31.0 02/15/2015 [facility] Pathology Reports No Data Provided for This Section Diagnostic Reports No Data Provided for This Section Consultation Notes No Data Provided for This Section Discharge Summaries No Data Provided for This Section History and Physicals No Data Provided for This Section Vital Signs Vital Sign Value Date Comments Source Weight 86.364 03/10/2015 [facility] Temperature Oral (F) 97.9 F 03/10/2015 [facility] Respitory Rate 18 03/10/2015 [facility] Heart Rate 91 03/10/2015 [facility] Systolic (mm Hg) 140 03/10/2015 [facility] Diastolic (mm Hg) 99 03/10/2015 [facility] Temperature Oral (F) 98.4 F 02/16/2015 [facility] Respitory Rate 18 02/16/2015 [facility] Heart Rate 97 02/16/2015 [facility] Systolic (mm Hg) 142 02/16/2015 [facility] Diastolic (mm Hg) 82 02/16/2015 [facility] Systolic (mm Hg) 147 02/15/2015 [facility] Diastolic (mm Hg) 93 02/15/2015 [facility] Weight 84.091 02/15/2015 [facility] BMI Calculated 36.21 02/15/2015 [facility] Height 152.4 cm 02/15/2015 [facility] Heart Rate 76 02/15/2015 [facility] Respitory Rate 18 02/15/2015 [facility] Temperature Oral (F) 98.1 F 02/15/2015 [facility] Encounters Location Location Details Encounter Type Encounter Number Reason For Visit Attending Provider ADM Date DC Date Status Source [facility] [id number] Cee Griffithmary 02/15/2015 02/16/2015 [facility] [id number] Kelby Lyons 03/10/2015 03/10/2015 [facility] Procedures No Data Provided for This Section Assessment and Plan No Data Provided for This Section Plan of Care No Data Provided for This Section Social History Social History Date Source Social History TypeResponse Smoking Status Never smoker; Exposure to Tobacco Smoke None; Cigarette Smoking Last 365 Days No; Reg Smoking Cessation Counseling No 03/10/2015 [facility] Family History No Data Provided for This Section Advance Directives No Data Provided for This Section Functional Status No Data Provided for This Section
--- NOTE | 2018-10-01 07:59 | Diagnostic Imaging Report ---
Exam: Abdominal film Clinical History: Urolithiasis, stents Comparison: Abdominal radiograph dated 09/09/2018, CT of the abdomen and pelvis dated 05/29/2018 DISCUSSION: Right percutaneous nephrostomy and dual parallel left internal ureteral stents are again noted. There is unchanged 5 mm calcific density overlying the region of the right ureterovesicular junction. Bowel gas pattern is nonobstructive. Regional skeletal structures are intact. A calcified gallstone is again identified projecting of the right upper quadrant. IMPRESSION: Right percutaneous nephrostomy catheter and parallel left internal ureteral stents are unchanged in position. Unchanged 5 mm calcific density in the expected region of the right ureterovesicular junction. Signed by: Julián Napoles MD on 10/01/2018 7:56 AM
[2018-10-01 10:45] VITALS: BP 148/69
--- NOTE | 2018-11-09 07:25 | Operative Report ---
DATE OF PROCEDURE: 10/01/2018 SURGEON: Gorge Darby MD PREOPERATIVE DIAGNOSES: 1. Left ureteral stricture. 2. Left hydronephrosis due to stricture. 3. Left indwelling ureteral stent. 4. Neurogenic bladder. POSTOPERATIVE DIAGNOSES: 1. Left ureteral stricture. 2. Left hydronephrosis due to stricture. 3. Left indwelling ureteral stent. 4. Neurogenic bladder. 5. Grade 1 rectocele. 6. Atrophic (senile) vaginitis. OPERATION PERFORMED: 1. Cystourethroscopy with complicated removal of left indwelling ureteral stent (separate procedure performed with separate scope for the diagnosis of stent). 2. Cystourethroscopy with dilation of ureteral stricture (separate procedure performed for the diagnosis of stricture). 3. Radiological services for supervision and interpretation of stricture dilation. 4. Cystourethroscopy with insertion of 2 separate stents into the left ureter (separate procedure performed to release the hydronephrosis). 5. Interpretation of retrograde ureteropyelography. 6. Supervision of fluoroscopy, no radiologist present. 7. Interpretation of cystography. 8. Pelvic examination under anesthesia. ANESTHESIA: General. COMPLICATIONS: None. CLINICAL SUMMARY: Rita Heredia is a complicated 57-year-old woman with bilateral ureteral strictures, the right one is so severe she currently is managed with percutaneous nephrostomy, to be changed every couple of months. The patient has recurrent infections. She has a neurogenic bladder and therefore requires a Echeverria catheter. She refluxes into the left side. She has 2 left-sided stents that has severe ureteral stricture. The patient was brought for the above procedures. She is aware of the risks of bleeding, infection, injury to adjacent structures, need for additional procedures, and elected to proceed. OPERATIVE PROCEDURE IN DETAIL: Informed consent was verified. Rita Heredia was properly identified, taken to the operating room, and placed on the cystoscopy table in supine position. Anesthesia was uneventfully begun. The patient was then carefully and gently repositioned in the dorsal lithotomy position with all pressure points well padded. Her genitalia were prepared and draped in usual sterile fashion. The cystoscope sheath with obturator in place was atraumatically inserted into the patient's urethra and the bladder was drained. Panendoscopy revealed 2 stents emerging from the left ureteral orifice. They were somewhat encrusted by debris. 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 The patient had a small opening in the posterior wall, which could potentially be a fistula. The guidewire was then placed into the left ureter and guided to the level of the patient's kidney. The stents were then grasped, completely removed, and discarded. A double-lumen ureteral catheter was then were utilized as a coaxial dilator sheath. It was advanced over the guidewire to the level of the patient's kidney. Contrast was injected. A secondary guidewire was placed under cystoscopic and fluoroscopic guidance. Two separate 7-Sami by 22 cm indwelling ureteral stents were then placed to coil the patient's kidney as well as the patient's bladder. The retaining sutures were removed. An opening of that we noted in the posterior wall, contrast was injected. We also performed cystogram with Echeverria catheter that was subsequently placed. Interpretation of cystography, the bladder wall was relatively smooth. The bladder was small. The stents were within the patient's bladder. No fistulous tract could be established radiographically in today's case. Final placement of Echeverria catheter, pelvic examination revealed a grade 1 rectocele with severe atrophic vaginitis. No abnormal palpable pelvic masses could be appreciated. There were no obvious mucosal lesions. The patient was then uneventfully reversed from anesthesia and taken to recovery room in stable condition. There were no complications to the procedure. She tolerated the procedure well. Plans will be to follow up in the office in about a month to change her Echeverria catheter. We will order Interventional Radiology to change her right nephrostomy collectively. Gorge Darby MD [place]/ELIZ /[id number]
== END | disposition home or self-care (01) ==
LOC: OR 06:19
PROVIDERS: ATTEND Urology
DX: Z46.6 Encounter for fitting and adjustment of urinary device (principal); N13.1 Hydronephrosis with ureteral stricture, not elsewhere classified; N31.9 Neuromuscular dysfunction of bladder, unspecified; N81.6 Rectocele; N95.2 Postmenopausal atrophic vaginitis; N13.4 Hydroureter; I10 Essential (primary) hypertension; Z01.810 Encounter for preprocedural cardiovascular examination
CPT/HCPCS: 52332; 52341; 74018; 74420; 93005; C1788; C2617; J1100; J2001; J2250; J2405; J2543; J2704; J3010; Q9967

== ENCOUNTER 2018-10-23 12:06 | Emergency (ER) | payer BC ==
[~2018-10-23] VITALS: Ht 152.4 cm; Wt 90.3 kg
[~2018-10-23 12:06] MED LIST changes: -B&O 60MG R/S 60 MG SUPP PR ONE; -DEXAMETHASONE SOD PHOS INJ 4 MG/ML VIAL ONE; -FENTANYL CITRATE/PF 100MCG/2 ML INJ ONE; -IOPAMIDOL 610MG/1ML 300 MG/ML VIAL IV ONE; -LIDOCAINE HCL 2% LOCAL INJ 5 ML SDV VIAL INJ ONE; -MIDAZOLAM HCL 2 MG/2 ML VIAL ONE; -ONDANSETRON HCL INJ 2MG/ML 2ML 2 MG/ML VIAL ONE; -PIPER-TAZ 3.375 GM 50 ML ONE; -PROPOFOL IV EMULSION 10 MG/ML 20 ML VIAL ONE; -SEVOFLURANE INHAL SOLN 250 ML PEN BTL ONE
--- OUTSIDE RECORDS SUMMARY | 2018-10-23 12:10 | XMS REPORT | Continuity of Care Document ---
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 PAIN Active 03/09/2015 [facility] Discharge Diagnosis: Urinary tract infection, site not specified 02/15/2015 02/18/2015 [facility] WEAKNESS Active 02/15/2015 [facility] MRSA1 Active Problem 03/12/2015 Problem added by Discern Expert. [facility] Medications Medication Details Route Status Patient Instructions Ordering Provider Order Date Source Ativan 1 mg, Route: PO, Drug form: TAB, ONCE, Dosing Weight 86.364, kg, Priority: STAT, Start date: 03/09/15 23:44:00, Stop date: 03/09/15 23:44:00 No Longer Active 03/10/2015 [facility] tramadol hydrochloride 50 MG Oral Tablet 50 mg=1 tab, PO, BID, X 15 day, # 30 tab, 0 Refill(s) Active 03/10/2015 [facility] tramadol hydrochloride 50 MG Oral Tablet [Ultram] 1 - 2 tabs, PO, Q4-6H, PRN as needed for pain, X 7 day, # 12 tab, 0 Refill(s) Active 02/16/2015 [facility] Sulfamethoxazole 800 MG / Trimethoprim 160 MG Oral Tablet [Bactrim] 1 tab, PO, BID, # 20 tab, 0 Refill(s) Active 02/16/2015 [facility] Rocephin 1 gm, Route: IM, ONCE, Dosing Weight 84.091, kg, Start date: 02/15/15 17:48:00, Stop date: 02/15/15 17:48:00 Inactive 02/15/2015 [facility] Ondansetron 4 mg, 2 mL, Route: IVP, Drug form: INJ, ONCE, Dosing Weight 84.091, kg, Priority: STAT, Start date: 02/15/15 15:36:00, Stop date: 02/15/15 15:36:00Notes: (Same as: [facility]) MEDICATION WASTE Product Size: 4 mg Product Wasted: ___ mg Inactive 02/15/2015 [facility] Sodium Chloride 0.154 MEQ/ML Injectable Solution 1,000 mL, 1000 ml/hr, Infuse Over: 1 hr, Route: IV, 1,000, Drug form: INJ, ONCE, Priority: STAT, Dosing Weight 84.091 kg, Start date: 02/15/15 15:36:00, Duration: 1 doses or times, Stop date: 02/15/15 15:36:00 Inactive 02/15/2015 [facility] Saline Flush 0.9% 10 mL, Route: IVP, Drug Form: INJ, Dosing Weight 84.091, kg, PRN, PRN Line Flush, Start date: 02/15/15 15:36:00, Duration: 30 day, Stop date: 03/17/15 15:35:00Notes: Same as: BD Posiflush Sterile Inactive 02/15/2015 [facility] Allergies, Adverse Reactions, Alerts Substance Category Reaction Severity Reaction type Status Date Reported Comments Source diphenhydrAMINE Assertion Drug allergy Active [facility] Immunizations No Data Provided for This Section Results Order Name Results Value Reference Range Date Interpretation Comments Source URINE AND STOOL UA Urobilinogen <=1.0 mg/dL 0.1 - 1.0 02/15/2015 [facility] URINE AND STOOL UA Protein 100 mg/dL Negative mg/dL 02/15/2015 [facility] URINE AND STOOL UA Glucose Negative mg/dL Negative mg/dL 02/15/2015 [facility] URINE AND STOOL UA Ketones Negative mg/dL Negative mg/dL 02/15/2015 [facility] URINE AND STOOL UA Bili Negative *NA* (02/15/15 4:54 PM) Negative 02/15/2015 [facility] URINE AND STOOL UA Blood Moderate *ABN* (02/15/15 4:54 PM) Negative 02/15/2015 [facility] URINE AND STOOL UA Nitrite Positive *ABN* (02/15/15 4:54 PM) Negative 02/15/2015 [facility] URINE AND STOOL UA Leuk Est Large *ABN* (02/15/15 4:54 PM) Negative 02/15/2015 [facility] URINE AND STOOL UA Sq Epi Few /LPF Few /LPF 02/15/2015 [facility] URINE AND STOOL UA WBC >182 0 - 5 02/15/2015 [facility] URINE AND STOOL UA RBC 155 0 - 2 02/15/2015 [facility] URINE AND STOOL UA Bacteria Many /HPF None Seen /HPF 02/15/2015 [facility] URINE AND STOOL UA WBC Cast 34 <=0 /LPF 02/15/2015 [facility] URINE AND STOOL UA Mucus Few /LPF None Seen /LPF 02/15/2015 [facility] URINE AND STOOL UA Color Yellow *NA* (02/15/15 4:54 PM) Yellow 02/15/2015 [facility] URINE AND STOOL UA Turbidity Marked *ABN* (02/15/15 4:54 PM) Clear 02/15/2015 [facility] URINE AND STOOL UA pH 5.0 5.0 - 8.0 02/15/2015 [facility] URINE AND STOOL UA Spec Grav 1.018 <=1.030 02/15/2015 [facility] CHEM PANEL A/G Ratio 0.6 0.7 - 1.6 02/15/2015 [facility] CHEM PANEL Globulin 5.8 2.0 - 4.0 02/15/2015 [facility] CHEM PANEL B/C Ratio 12 6 - 25 02/15/2015 [facility] CHEM PANEL AGAP 12.6 10.0 - 20.0 02/15/2015 [facility] CHEM PANEL Alk Phos 115 39 - 136 02/15/2015 [facility] CHEM PANEL AST 28 0 - 37 02/15/2015 [facility] CHEM PANEL Bili Total 0.3 0.2 - 1.3 02/15/2015 [facility] CHEM PANEL eGFR 73 02/15/2015 Result Comment: [...] should be multiplied by the estimated BMI. [facility] CHEM PANEL ALT 25 0 - 65 02/15/2015 [facility] CHEM PANEL Albumin Lvl 3.4 3.5 - 5.0 02/15/2015 [facility] CHEM PANEL Total Protein 9.2 6.4 - 8.4 02/15/2015 [facility] CHEM PANEL Calcium Lvl 9.1 8.5 - 10.5 02/15/2015 [facility] CHEM PANEL CO2 26 24 - 32 02/15/2015 [facility] CHEM PANEL Sodium Lvl 140 135 - 145 02/15/2015 [facility] CHEM PANEL Chloride Lvl 106 95 - 109 02/15/2015 [facility] CHEM PANEL Potassium Lvl 4.6 3.5 - 5.1 02/15/2015 [facility] CHEM PANEL Creatinine Lvl 0.91 0.50 - 1.40 02/15/2015 [facility] CHEM PANEL BUN 11 7 - 22 02/15/2015 [facility] CHEM PANEL Glucose Lvl 118 70 - 99 02/15/2015 [facility] ENDOCRINOLOGY S Preg Negative *NA* (02/15/15 4:40 PM) Negative 02/15/2015 [facility] HEMATOLOGY Lymphocytes 32.8 20.0 - 40.0 02/15/2015 [facility] HEMATOLOGY Segs 60.0 45.0 - 75.0 02/15/2015 [facility] HEMATOLOGY Eosinophils # 0.2 0.0 - 0.5 02/15/2015 [facility] HEMATOLOGY Basophils # 0.2 0.0 - 0.2 02/15/2015 [facility] HEMATOLOGY Monocytes 4.6 2.0 - 12.0 02/15/2015 [facility] HEMATOLOGY Eosinophils 1.2 0.0 - 4.0 02/15/2015 [facility] HEMATOLOGY Basophils 1.4 0.0 - 1.0 02/15/2015 [facility] HEMATOLOGY Segs-Bands # 7.3 1.5 - 8.1 02/15/2015 [facility] Monocytes # 0.6 0.0 - 0.8 02/15/2015 [facility] HEMATOLOGY Lymphocytes # 4.0 1.0 - 5.5 02/15/2015 [facility] HEMATOLOGY Plt Morph Clumped (02/15/15 4:40 PM) 02/15/2015 [facility] [place] RBC Morph Normal (02/15/15 4:40 PM) 02/15/2015 [facility] HEMATOLOGY MPV 8.7 7.4 - 10.4 02/15/2015 [facility] HEMATOLOGY WBC 12.0 3.7 - 10.4 02/15/2015 [facility] HEMATOLOGY RBC 4.90 4.20 - 5.40 02/15/2015 [facility] HEMATOLOGY Hct 39.0 36.0 - 48.0 02/15/2015 [facility] HEMATOLOGY MCV 79.7 80.0 - 98.0 02/15/2015 [facility] HEMATOLOGY Hgb 12.0 12.0 - 16.0 02/15/2015 [facility] HEMATOLOGY RDW 14.8 11.5 - 14.5 02/15/2015 [facility] HEMATOLOGY MCHC 30.8 32.0 - 36.0 02/15/2015 [facility] HEMATOLOGY Platelet 220 133 - 450 02/15/2015 [facility] HEMATOLOGY MCH 24.5 27.0 - 31.0 02/15/2015 [facility] Pathology Reports No Data Provided for This Section Diagnostic Reports No Data Provided for This Section Consultation Notes No Data Provided for This Section Discharge Summaries No Data Provided for This Section History and Physicals No Data Provided for This Section Vital Signs Vital Sign Value Date Comments Source Weight 86.364 03/10/2015 [facility] Temperature Oral (F) 97.9 F 03/10/2015 [facility] Respitory Rate 18 03/10/2015 [facility] Heart Rate 91 03/10/2015 [facility] Systolic (mm Hg) 140 03/10/2015 [facility] Diastolic (mm Hg) 99 03/10/2015 [facility] Temperature Oral (F) 98.4 F 02/16/2015 [facility] Respitory Rate 18 02/16/2015 [facility] Heart Rate 97 02/16/2015 [facility] Systolic (mm Hg) 142 02/16/2015 [facility] Diastolic (mm Hg) 82 02/16/2015 [facility] Systolic (mm Hg) 147 02/15/2015 [facility] Diastolic (mm Hg) 93 02/15/2015 [facility] Weight 84.091 02/15/2015 [facility] BMI Calculated 36.21 02/15/2015 [facility] Height 152.4 cm 02/15/2015 [facility] Heart Rate 76 02/15/2015 [facility] Respitory Rate 18 02/15/2015 [facility] Temperature Oral (F) 98.1 F 02/15/2015 [facility] Encounters Location Location Details Encounter Type Encounter Number Reason For Visit Attending Provider ADM Date DC Date Status Source [facility] [id number] Cee Griffithmary 02/15/2015 02/16/2015 [facility] [id number] Kelby Lyons 03/10/2015 03/10/2015 [facility] Procedures No Data Provided for This Section Assessment and Plan No Data Provided for This Section Plan of Care No Data Provided for This Section Social History Social History Date Source Social History TypeResponse Smoking Status Never smoker; Exposure to Tobacco Smoke None; Cigarette Smoking Last 365 Days No; Reg Smoking Cessation Counseling No 03/10/2015 [facility] Family History No Data Provided for This Section Advance Directives No Data Provided for This Section Functional Status No Data Provided for This Section
[2018-10-23 13:32] VITALS: BP 122/78
== END 2018-10-23 13:42 | disposition home or self-care (01) ==
LOC: ER 12:06
DX: N39.0 Urinary tract infection, site not specified (principal); Z93.6 Other artificial openings of urinary tract status; I10 Essential (primary) hypertension; E11.9 Type 2 diabetes mellitus without complications; Z96.0 Presence of urogenital implants
CPT/HCPCS: 99282

== ENCOUNTER 2018-10-31 05:33 | Emergency (ER) | payer BC ==
[~2018-10-31] VITALS: Ht 152.4 cm; Wt 90.3 kg
--- OUTSIDE RECORDS SUMMARY | 2018-10-31 05:37 | XMS REPORT | Continuity of Care Document ---
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 PAIN Active 03/09/2015 [facility] Discharge Diagnosis: Urinary tract infection, site not specified 02/15/2015 02/18/2015 [facility] WEAKNESS Active 02/15/2015 [facility] MRSA1 Active Problem 03/12/2015 Problem added by Discern Expert. [facility] Medications Medication Details Route Status Patient Instructions Ordering Provider Order Date Source Ativan 1 mg, Route: PO, Drug form: TAB, ONCE, Dosing Weight 86.364, kg, Priority: STAT, Start date: 03/09/15 23:44:00, Stop date: 03/09/15 23:44:00 No Longer Active 03/10/2015 [facility] tramadol hydrochloride 50 MG Oral Tablet 50 mg=1 tab, PO, BID, X 15 day, # 30 tab, 0 Refill(s) Active 03/10/2015 [facility] tramadol hydrochloride 50 MG Oral Tablet [Ultram] 1 - 2 tabs, PO, Q4-6H, PRN as needed for pain, X 7 day, # 12 tab, 0 Refill(s) Active 02/16/2015 [facility] Sulfamethoxazole 800 MG / Trimethoprim 160 MG Oral Tablet [Bactrim] 1 tab, PO, BID, # 20 tab, 0 Refill(s) Active 02/16/2015 [facility] Rocephin 1 gm, Route: IM, ONCE, Dosing Weight 84.091, kg, Start date: 02/15/15 17:48:00, Stop date: 02/15/15 17:48:00 Inactive 02/15/2015 [facility] Ondansetron 4 mg, 2 mL, Route: IVP, Drug form: INJ, ONCE, Dosing Weight 84.091, kg, Priority: STAT, Start date: 02/15/15 15:36:00, Stop date: 02/15/15 15:36:00Notes: (Same as: Wiley) MEDICATION WASTE Product Size: 4 mg Product Wasted: ___ mg Inactive 02/15/2015 [facility] Sodium Chloride 0.154 MEQ/ML Injectable Solution 1,000 mL, 1000 ml/hr, Infuse Over: 1 hr, Route: IV, 1,000, Drug form: INJ, ONCE, Priority: STAT, Dosing Weight 84.091 kg, Start date: 02/15/15 15:36:00, Duration: 1 doses or times, Stop date: 02/15/15 15:36:00 Inactive 02/15/2015 [facility] Saline Flush 0.9% 10 mL, Route: IVP, Drug Form: INJ, Dosing Weight 84.091, kg, PRN, PRN Line Flush, Start date: 02/15/15 15:36:00, Duration: 30 day, Stop date: 03/17/15 15:35:00Notes: Same as: BD Posiflush Sterile Inactive 02/15/2015 [facility] Allergies, Adverse Reactions, Alerts Substance Category Reaction Severity Reaction type Status Date Reported Comments Source diphenhydrAMINE Assertion Drug allergy Active [facility] Immunizations No Data Provided for This Section Results Order Name Results Value Reference Range Date Interpretation Comments Source URINE AND STOOL UA Urobilinogen <=1.0 mg/dL 0.1 - 1.0 02/15/2015 [facility] URINE AND STOOL UA Protein 100 mg/dL Negative mg/dL 02/15/2015 [facility] URINE AND STOOL UA Glucose Negative mg/dL Negative mg/dL 02/15/2015 [facility] URINE AND STOOL UA Ketones Negative mg/dL Negative mg/dL 02/15/2015 [facility] URINE AND STOOL UA Bili Negative *NA* (02/15/15 4:54 PM) Negative 02/15/2015 [facility] URINE AND STOOL UA Blood Moderate *ABN* (02/15/15 4:54 PM) Negative 02/15/2015 [facility] URINE AND STOOL UA Nitrite Positive *ABN* (02/15/15 4:54 PM) Negative 02/15/2015 [facility] URINE AND STOOL UA Leuk Est Large *ABN* (02/15/15 4:54 PM) Negative 02/15/2015 [facility] URINE AND STOOL UA Sq Epi Few /LPF Few /LPF 02/15/2015 [facility] URINE AND STOOL UA WBC >182 0 - 5 02/15/2015 [facility] URINE AND STOOL UA RBC 155 0 - 2 02/15/2015 [facility] URINE AND STOOL UA Bacteria Many /HPF None Seen /HPF 02/15/2015 [facility] URINE AND STOOL UA WBC Cast 34 <=0 /LPF 02/15/2015 [facility] URINE AND STOOL UA Mucus Few /LPF None Seen /LPF 02/15/2015 [facility] URINE AND STOOL UA Color Yellow *NA* (02/15/15 4:54 PM) Yellow 02/15/2015 [facility] URINE AND STOOL UA Turbidity Marked *ABN* (02/15/15 4:54 PM) Clear 02/15/2015 [facility] URINE AND STOOL UA pH 5.0 5.0 - 8.0 02/15/2015 [facility] URINE AND STOOL UA Spec Grav 1.018 <=1.030 02/15/2015 [facility] CHEM PANEL A/G Ratio 0.6 0.7 - 1.6 02/15/2015 [facility] CHEM PANEL Globulin 5.8 2.0 - 4.0 02/15/2015 [facility] CHEM PANEL B/C Ratio 12 6 - 25 02/15/2015 [facility] CHEM PANEL AGAP 12.6 10.0 - 20.0 02/15/2015 [facility] CHEM PANEL Alk Phos 115 39 - 136 02/15/2015 [facility] CHEM PANEL AST 28 0 - 37 02/15/2015 [facility] CHEM PANEL Bili Total 0.3 0.2 - 1.3 02/15/2015 [facility] CHEM PANEL eGFR 73 02/15/2015 Result [...] should be multiplied by the estimated BMI. [facility] CHEM PANEL ALT 25 0 - 65 02/15/2015 [facility] CHEM PANEL Albumin Lvl 3.4 3.5 - 5.0 02/15/2015 [facility] CHEM PANEL Total Protein 9.2 6.4 - 8.4 02/15/2015 [facility] CHEM PANEL Calcium Lvl 9.1 8.5 - 10.5 02/15/2015 [facility] CHEM PANEL CO2 26 24 - 32 02/15/2015 [facility] CHEM PANEL Sodium Lvl 140 135 - 145 02/15/2015 [facility] CHEM PANEL Chloride Lvl 106 95 - 109 02/15/2015 [facility] CHEM PANEL Potassium Lvl 4.6 3.5 - 5.1 02/15/2015 [facility] CHEM PANEL Creatinine Lvl 0.91 0.50 - 1.40 02/15/2015 [facility] CHEM PANEL BUN 11 7 - 22 02/15/2015 [facility] CHEM PANEL Glucose Lvl 118 70 - 99 02/15/2015 [facility] ENDOCRINOLOGY S Preg Negative *NA* (02/15/15 4:40 PM) Negative 02/15/2015 [facility] HEMATOLOGY Lymphocytes 32.8 20.0 - 40.0 02/15/2015 [facility] HEMATOLOGY Segs 60.0 45.0 - 75.0 02/15/2015 [facility] HEMATOLOGY Eosinophils # 0.2 0.0 - 0.5 02/15/2015 [facility] HEMATOLOGY Basophils # 0.2 0.0 - 0.2 02/15/2015 [facility] HEMATOLOGY Monocytes 4.6 2.0 - 12.0 02/15/2015 [facility] HEMATOLOGY Eosinophils 1.2 0.0 - 4.0 02/15/2015 [facility] HEMATOLOGY Basophils 1.4 0.0 - 1.0 02/15/2015 [facility] HEMATOLOGY Segs-Bands # 7.3 1.5 - 8.1 02/15/2015 [facility] Monocytes # 0.6 0.0 - 0.8 02/15/2015 [facility] HEMATOLOGY Lymphocytes # 4.0 1.0 - 5.5 02/15/2015 [facility] HEMATOLOGY Plt Morph Clumped (02/15/15 4:40 PM) 02/15/2015 [facility] RBC Morph Normal (02/15/15 4:40 PM) 02/15/2015 [facility] HEMATOLOGY MPV 8.7 7.4 - 10.4 02/15/2015 [facility] HEMATOLOGY WBC 12.0 3.7 - 10.4 02/15/2015 [facility] HEMATOLOGY RBC 4.90 4.20 - 5.40 02/15/2015 [facility] HEMATOLOGY Hct 39.0 36.0 - 48.0 02/15/2015 [facility] HEMATOLOGY MCV 79.7 80.0 - 98.0 02/15/2015 [facility] HEMATOLOGY Hgb 12.0 12.0 - 16.0 02/15/2015 [facility] HEMATOLOGY RDW 14.8 11.5 - 14.5 02/15/2015 [facility] HEMATOLOGY MCHC 30.8 32.0 - 36.0 02/15/2015 [facility] HEMATOLOGY Platelet 220 133 - 450 02/15/2015 [facility] HEMATOLOGY MCH 24.5 27.0 - 31.0 02/15/2015 [facility] Pathology Reports No Data Provided for This Section Diagnostic Reports No Data Provided for This Section Consultation Notes No Data Provided for This Section Discharge Summaries No Data Provided for This Section History and Physicals No Data Provided for This Section Vital Signs Vital Sign Value Date Comments Source Weight 86.364 03/10/2015 [facility] Temperature Oral (F) 97.9 F 03/10/2015 [facility] Respitory Rate 18 03/10/2015 [facility] Heart Rate 91 03/10/2015 [facility] Systolic (mm Hg) 140 03/10/2015 [facility] Diastolic (mm Hg) 99 03/10/2015 [facility] Temperature Oral (F) 98.4 F 02/16/2015 [facility] Respitory Rate 18 02/16/2015 [facility] Heart Rate 97 02/16/2015 [facility] Systolic (mm Hg) 142 02/16/2015 [facility] Diastolic (mm Hg) 82 02/16/2015 [facility] Systolic (mm Hg) 147 02/15/2015 [facility] Diastolic (mm Hg) 93 02/15/2015 [facility] Weight 84.091 02/15/2015 [facility] BMI Calculated 36.21 02/15/2015 [facility] Height 152.4 cm 02/15/2015 [facility] Heart Rate 76 02/15/2015 [facility] Respitory Rate 18 02/15/2015 [facility] Temperature Oral (F) 98.1 F 02/15/2015 [facility] Encounters Location Location Details Encounter Type Encounter Number Reason For Visit Attending Provider ADM Date DC Date Status Source [facility] [id number] Cee Griffithmary 02/15/2015 02/16/2015 [facility] [id number] Kelby Lyons 03/10/2015 03/10/2015 [facility] Procedures No Data Provided for This Section Assessment and Plan No Data Provided for This Section Plan of Care No Data Provided for This Section Social History Social History Date Source Social History TypeResponse Smoking Status Never smoker; Exposure to Tobacco Smoke None; Cigarette Smoking Last 365 Days No; Reg Smoking Cessation Counseling No 03/10/2015 [facility] Family History No Data Provided for This Section Advance Directives No Data Provided for This Section Functional Status No Data Provided for This Section
[2018-10-31 06:23] VITALS: BP 127/70
== END 2018-10-31 06:27 | disposition home or self-care (01) ==
LOC: ER 05:33
DX: T83.091A Other mechanical complication of indwelling urethral catheter, initial encounter (principal); Y73.1 Therapeutic (nonsurgical) and rehabilitative gastroenterology and urology devices associated with adverse incidents; Y92.009 Unspecified place in unspecified non-institutional (private) residence as the place of occurrence of the external cause; E11.22 Type 2 diabetes mellitus with diabetic chronic kidney disease; I12.9 Hypertensive chronic kidney disease with stage 1 through stage 4 chronic kidney disease, or unspecified chronic kidney disease; N18.9 Chronic kidney disease, unspecified; F41.9 Anxiety disorder, unspecified; E78.5 Hyperlipidemia, unspecified
CPT/HCPCS: 51700; 51702; 99282

== ENCOUNTER → 2018-12-02 | Outpatient (CLI) | payer BC ==
[~2018-12-02] MED LIST changes: +FENTANYL CITRATE/PF 100MCG/2 ML INJ ONE; +IOPAMIDOL 370 MG/ML 200 ML INFUS..BTL INJ ONE; +LIDOCAINE HCL 1% LOCAL INJ 20 ML VIAL ONE
--- NOTE | 2018-12-02 14:24 | Diagnostic Imaging Report ---
PROCEDURE: Genitourinary catheter exchange Procedural Personnel Attending physician(s): Brisa Soto MD Fellow physician(s): None Resident physician(s): None Advanced practice provider(s): None Pre-procedure diagnosis: Ureteral obstruction Post-procedure diagnosis: Same Indication: Routine scheduled exchange Additional clinical history: None Complications: Nephrostomy tube was heavily encrusted and calcified and required advanced maneuvers to remove and exchange. IMPRESSION: Successful exchange of right nephrostomy tube. Nephrostomy tube was heavily encrusted and calcified and required advanced maneuvers to remove and exchange. Plan: Future exchanges should be done at no longer than 6-8 week intervals. PROCEDURE SUMMARY - Target organ: Right [place] kidney - Antegrade nephrostogram(s) via the existing access - Nephrostomy tube exchange - Additional procedure(s): None PROCEDURE DETAILS: Pre-procedure Consent: Informed consent for the procedure including risks, benefits and alternatives was obtained and time-out was performed prior to the procedure. Preparation: The site was prepared and draped using maximal sterile barrier technique including cutaneous antisepsis. Anesthesia/sedation Level of anesthesia/sedation: Minimal sedation 50mcg Fentanyl Anesthesia/sedation administered by: Independent trained observer under attending supervision with continuous monitoring of the patient?s level of consciousness and physiologic status Right genitourinary catheter exchange Local anesthesia was administered. Initial nephrostogram was performed. A wire was placed via the existing tube and the tube was very encrusted. Wire could not be passed all the way through the tube and the loop would not unform. A 12Fr peel-away sheath was advanced over the nephrostomy tube and the tube was retracted through the sheath and removed. A Kumpe catheter and guidewire were then advanced through the sheath and the sheath removed. A new 10Fr nephrostomy tube was advanced over the wire and position was confirmed with contrast injection. Pre-existing genitourinary catheter: 10Fr Uresil Genitourinary catheter(s) placed: 10Fr Uresil Findings: Loop formed in renal pelvis. External catheter securement: Non-absorbable suture Additional genitourinary system intervention Genitourinary intervention: None Location of intervention: Not applicable Device used: Not applicable Description of intervention: Not applicable Post-intervention findings: Not applicable Contrast Contrast agent: Isovue 370 Contrast volume (mL): 10 Radiation Dose Fluoroscopy time (minutes): 13.24 Reference air kerma (mGy): 134 Additional Details Additional description of procedure: None Equipment details: None Specimens removed: None Estimated blood loss (mL): Less than 10 Standardized report: [id number] Attestation Signer name: Brisa Soto MD I attest that I was present for the entire procedure. I reviewed the stored images and agree with the report as written. Signed by: Brisa Soto MD on 12/02/2018 2:21 PM
== END ==
LOC: DX 08:28
PROVIDERS: ATTEND Urology
DX: N13.5 Crossing vessel and stricture of ureter without hydronephrosis (principal); N13.1 Hydronephrosis with ureteral stricture, not elsewhere classified
CPT/HCPCS: 50431; J2001; J3010; Q9967

== ENCOUNTER 2018-12-14 10:50 | Emergency (ER) | payer BC ==
[~2018-12-14] VITALS: Ht 152.4 cm; Wt 90.3 kg
[~2018-12-14 10:50] MED LIST changes: -FENTANYL CITRATE/PF 100MCG/2 ML INJ ONE; -IOPAMIDOL 370 MG/ML 200 ML INFUS..BTL INJ ONE; -LIDOCAINE HCL 1% LOCAL INJ 20 ML VIAL ONE
[2018-12-14] MEDS ORDERED: LEVOFLOXACIN 500 MG TAB PO ONE (11:30)
--- NOTE | 2018-12-14 12:00 | NUR ---
Leg bag replaced with new leg bag to obtain a specimen.
[2018-12-14 12:46] LABS: BILIRUBIN,URINE NEGATIVE (NEGATIVE); COLOR,URINE YELLOW (YELLOW); KETONES,URINE NEGATIVE (NEGATIVE); LEUKOCYTE ESTERASE ,URINE LARGE (NEGATIVE); NITRITE,URINE NEGATIVE (NEGATIVE); PROTEIN,URINE DIPSTICK 2+ (NEGATIVE); URINE UROBILINOGEN 0.2 mg/dL (0.2 - 1)
[2018-12-14 12:48] LABS: CLARITY,URINE CLOUDY (CLEAR)
[2018-12-14 12:56] LABS: BACTERIA,URINE MANY /HPF; EPITHELIAL CELLS,URINE MANY /LPF; RBC,URINE >50 /HPF (0-5); WBC,URINE (MAN) >50 /HPF (0-5)
[2018-12-14 12:57] LABS: AMORPHOUS SEDIMENT,URINE FEW (FEW); YEAST,URINE MANY
== END 2018-12-14 13:01 | disposition home or self-care (01) ==
LOC: ER 10:50
DX: N30.01 Acute cystitis with hematuria (principal); Z93.6 Other artificial openings of urinary tract status; E11.9 Type 2 diabetes mellitus without complications; I10 Essential (primary) hypertension; F41.9 Anxiety disorder, unspecified; Z83.3 Family history of diabetes mellitus; Z82.49 Family history of ischemic heart disease and other diseases of the circulatory system
CPT/HCPCS: 81001; 87086; 87186; 99283

== ENCOUNTER 2019-06-04 11:09 | Inpatient (IN) | payer BC, OTHER ==
[~2019-06-04] VITALS: Ht 152.4 cm; Wt 89.8 kg
[~2019-06-04 11:09] MED LIST changes: +CIPROFLOXACIN PO; +ZYVOX600 MG PO
[2019-06-04] MEDS ORDERED: SODIUM CHLORIDE 0.9% 1000ML 1,000 ML IV STA (11:51)
[2019-06-04 12:33] LABS: BASOPHILS # (AUTO) 0.1 (0.0-0.1); BASOPHILS % 0.5 % (0.0-1.0); EOSINOPHILS # (AUTO) 0.1 (0.0-0.4); EOSINOPHILS % 0.5 % (0.0-6.0); HEMATOCRIT 34.2 % (34.2-44.1); HEMOGLOBIN 10.7 g/dL (12.0-16.0); LYMPHOCYTES # (AUTO) 1.5 (1.0-3.2); LYMPHOCYTES % 15.7 % (18.0-39.1); MEAN CORPUSCULAR HEMOGLOBIN 25.7 pg (28-32); MEAN CORPUSCULAR HGB CONC 31.3 g/dL (31-35); MEAN CORPUSCULAR VOLUME 82.2 fL (81-99); MONOCYTES # (AUTO) 0.5 (0.2-0.8); MONOCYTES % 4.7 % (4.4-11.3); NEUTROPHILS # (AUTO) 7.5 (2.1-6.9); NEUTROPHILS % 78.2 % (38.7-80.0); PLATELET COUNT 282 x10e3/uL (140-360); RED BLOOD COUNT 4.16 x10e6/uL (3.6-5.1)
[2019-06-04 12:36] LABS: CLARITY,URINE CLOUDY (CLEAR); COLOR,URINE YELLOW (YELLOW); KETONES,URINE NEGATIVE (NEGATIVE); LEUKOCYTE ESTERASE ,URINE SMALL (NEGATIVE); NITRITE,URINE POSITIVE (NEGATIVE); PROTEIN,URINE DIPSTICK >=300 (NEGATIVE)
[2019-06-04 12:37] LABS: BILIRUBIN,URINE NEGATIVE (NEGATIVE); URINE UROBILINOGEN 0.2 mg/dL (0.2 - 1)
[2019-06-04 12:55] LABS: ALANINE AMINOTRANSFERASE 14 IU/L (0-55); ALBUMIN 3.3 g/dL (3.5-5.0); ALBUMIN/GLOBULIN RATIO 0.6 (0.8-2.0); ALKALINE PHOSPHATASE 109 IU/L (40-150); ANION GAP 15.6 mmol/L (8-16); BLOOD UREA NITROGEN 20 mg/dL (7-26); BUN/CREATININE RATIO 12 (6-25); CALCIUM 9.9 mg/dL (8.4-10.2); CARBON DIOXIDE 23 mmol/L (22-29); CHLORIDE 103 mmol/L (98-107); CREATINE KINASE 28 IU/L (29-168); EST GLOMERULAR FILTRATION RATE 31 ML/MIN (60-); GLUCOSE 196 mg/dL (74-118); MAGNESIUM 1.8 MG/DL (1.3-2.1); POTASSIUM 3.6 mmol/L (3.5-5.1); SODIUM 138 mmol/L (136-145)
[2019-06-04] MEDS ORDERED: LINEZOLID 600 MG/D5W 300ML 300 ML IV SCH (13:00)
[2019-06-04] MEDS ORDERED: MEROPENEM 1GRAM 1 GM in SODIUM CHLORIDE 0.9% 100 ML 100 ML IV SCH (13:00)
[2019-06-04 13:11] LABS: BACTERIA,URINE RARE /HPF; EPITHELIAL CELLS,URINE FEW /LPF; RBC,URINE 21-50 /HPF (0-5); WBC,URINE (MAN) >50 /HPF (0-5)
[2019-06-04 13:12] LABS: INR 0.99; PARTIAL THROMBOPLASTIN TIME 33.1 seconds (23.8-35.5); PROTHROMBIN TIME 13.7 seconds (11.9-14.5)
[2019-06-04] MEDS ORDERED: MORPHINE SULFATE INJ 4 MG/ML INJ 1ML IV PRN (13:30)
[2019-06-04] MEDS: SODIUM CHLORIDE 0.9% 1000ML 1,000 ML IV SCH (13:50)
[2019-06-04] MEDS: ONDANSETRON HCL INJ 2MG/ML 2ML 2 MG/ML VIAL IV PRN (13:50)
[2019-06-04] MEDS ORDERED: MEROPENEM 1GM 100 ML IV SCH (14:00)
[2019-06-04] MEDS ORDERED: FAMOTIDINE 20 MG/2 ML VIAL IV STA (14:12)
[2019-06-04] MEDS ORDERED: DIPHENHYDRAMINE HCL INJ 50 MG/ML VIAL IV ONE (14:15)
[2019-06-04] MEDS ORDERED: FAMOTIDINE 20 MG/2 ML VIAL IV ONE (14:20)
--- NOTE | 2019-06-04 14:23 | NUR ---
called Dr. Rodriguez and left message to discuss home med reconciliation and possible new orders for pain meds. pt states that the current medication is not lasting long enough. waiting for call back/new orders Addendum: 06/04/19 at 1814 by Rosario Winkler RN wrong time
--- NOTE | 2019-06-04 14:30 | NUR ---
pt given morphine and zofran followed by merropenum; started to c/o hearing popping in ears and redness to both arms and face and itching; md made aware who went to see pt; pt states she's had morphine before with no reactions says she's never had merropenum before; md orders benadryl, solumedrol, and pepcid; zyvox held per md; nurse watches pt for 15 min and pt states she's starting to feel better and she just needs to calm down states she does take anxiety medication at home nurse offered to ask md for anxiety med for pt and pt declined
[2019-06-04 14:45] LABS: CLARITY,URINE HAZY (CLEAR); COLOR,URINE YELLOW (YELLOW); KETONES,URINE NEGATIVE (NEGATIVE); LEUKOCYTE ESTERASE ,URINE LARGE (NEGATIVE); NITRITE,URINE NEGATIVE (NEGATIVE); PROTEIN,URINE DIPSTICK >=300 (NEGATIVE)
[2019-06-04 14:46] LABS: BILIRUBIN,URINE NEGATIVE (NEGATIVE); URINE UROBILINOGEN 0.2 mg/dL (0.2 - 1)
[2019-06-04 14:51] LABS: BACTERIA,URINE MODERATE /HPF; EPITHELIAL CELLS,URINE FEW /LPF; MUCUS,URINE MODERATE (RARE); RBC,URINE >50 /HPF (0-5); WBC,URINE (MAN) >50 /HPF (0-5)
--- NOTE | 2019-06-04 14:51 | NUR ---
nurse examined pt; pt face and bilateral arms/hands does not appear red; pt not c/o itching states she feels better
[2019-06-04] MEDS ORDERED: METHYLPREDNISOLONE SOD SUCC 125 MG/2ML VIAL IV ONE (15:00)
--- NOTE | 2019-06-04 15:21 | NUR ---
received patient from the ER via wheelchair, pt is alert and ambulated to bed. no s/s of distress, pt c/o severe pain in the R flank morphine was given in ER. pt oriented to room, call light within reach and instructed pt to call RN for help
--- NOTE | 2019-06-04 15:22 | Diagnostic Imaging Report ---
EXAMINATION: CHEST SINGLE (PORTABLE) COMPARISON: Chest x-ray 12/18/2017 INDICATION: Fever, pain, weakness ^LOW GRADE FEVER, SOMNOLENCE, LIKELY UTI ^[id number] ^1430 DISCUSSION: Frontal view of the chest obtained at 1439 hours. HEART AND MEDIASTINUM: The heart is normal in size. The aortic arch is tortuous but stable LINES: None. LUNGS: The lungs are well inflated and clear. Calcified granuloma in the right lung base is stable. No pneumonia or pulmonary edema. PLEURA: No pleural effusion or pneumothorax. Stable mild eventration of the right diaphragm. BONES AND SOFT TISSUES: Degenerative changes of the right AC joint area No focal osseous lesion. The soft tissues are normal. IMPRESSION: Stable chest. No acute cardiopulmonary disease. Signed by: Dr. Glo Lo MD on 06/04/2019 3:19 PM
--- NOTE | 2019-06-04 15:35 | Diagnostic Imaging Report ---
Examination: CT BRAIN WO CONTRAST History: Acute headache. Comparison studies:None Technique: Axial images were obtained from the skull base to the vertex. Coronal and sagittal images reconstructed from the axial data. Dose modulation, iterative reconstruction, and/or weight based adjustment of the mA/kV was utilized to reduce the radiation dose to as low as reasonably achievable. Intravenous contrast: None Findings: Scalp: No abnormalities. Bones: No fractures, blastic or lytic lesions. Brain sulci: Appropriate for age. Ventricles: Normal in size and configuration. No hydrocephalus. Extra-axial space: No abnormalities. Parenchyma: No abnormal densities. No masses, hemorrhage, or acute or chronic cortical based vascular insults.. Sellar/suprasellar region: No abnormalities. Craniocervical junction: Patent foramen magnum. No Chiari one malformation. Incidental findings: None. Impression: No intracranial abnormalities. Signed by: Dr. Jeannette Neal M.D. on 06/04/2019 3:31 PM
[2019-06-04] MEDS ORDERED: METOPROLOL TART25 MG PO (15:39)
--- NOTE | 2019-06-04 16:23 | NUR ---
called Dr. Rodriguez and left message to discuss home med reconciliation and possible new orders for pain meds. pt states that the current medication is not lasting long enough. waiting for call back/new orders
[2019-06-04 16:38] VITALS: BP 182/83
[2019-06-04] MEDS ORDERED: BISACODYL 10 MG SUPP PR PRN (16:45)
[2019-06-04] MEDS ORDERED: HYDRALAZINE HCL 20 MG/ML VIAL IV PRN (16:45)
[2019-06-04] MEDS ORDERED: BISACODYL 5 MG TAB EC PO PRN (16:45)
[2019-06-04] MEDS ORDERED: BUSPIRONE HCL 10 MG TABLET PO PRN (16:45)
[2019-06-04] MEDS ORDERED: AMLODIPINE BESYLATE 5 MG TAB PO PRN (16:45)
[2019-06-04] MEDS ORDERED: MAGNESIUM HYDROXIDE 30 ML UDC PO PRN (16:45)
--- NOTE | 2019-06-04 17:20 | NUR ---
pt off unit getting CT
[2019-06-04] MEDS: MORPHINE SULFATE INJ 4 MG/ML INJ 1ML IV PRN (17:32)
--- NOTE | 2019-06-04 17:59 | Diagnostic Imaging Report ---
CT Abdomen and Pelvis without contrast INDICATION: UTI/abdominal pain, ureteral stents and percutaneous nephrostomies ^ABD PAIN ^[id number] ^[id number] TECHNIQUE: Thin collimation axial images obtained from the diaphragm to the level of the pubic symphysis without nonionic intravenous contrast. Dose reduction techniques used: Automated exposure control, adjustment of the mAs and/or kVp according to patient size, standardized low-dose protocol, and/or iterative reconstruction technique. RADIATION DOSE: Total DLP: 634.06 mGy*cm Estimated effective dose: DLP x 0.015 x size factor mSv CTDIvol has been reviewed. It is below the limits set by the Radiation Protocol Committee (RPC). COMPARISON: CT abdomen/pelvis 05/29/2018. ABDOMEN FINDINGS: Lung Bases: Calcified granuloma in the lateral right lower lobe is stable. Small amount of posterior layering atelectasis. The visualized portion of the mediastinum is normal. Liver: Normal in attenuation without mass. Gallbladder: Present with a calcified gallstone measuring 2 cm near the neck. No ductal dilatation. Pancreas: Normal attenuation without mass. Spleen: Normal size without mass. Adrenal Glands: No evidence for mass. Kidneys: Right: Percutaneous the approximate is in the posterior aspect of the collecting system. There is marked hydronephrosis. Trace perinephric inflammation. No calculus in the collecting system. No cortical mass Left: There are 2 stents in the collecting system are redemonstrated that extend into the urinary bladder. The renal pelvis remains dilated. No evidence of calculus. Mild renal atrophy. No cortical mass Lymph Nodes: Prominent left periaortic lymph nodes are stable and likely reactive. Aorta: Normal in diameter with scattered calcifications. PELVIS FINDINGS: Bowel: Stomach: Normal. Small Bowel: Normal in caliber with normal wall thickness. Large Bowel: Normal in caliber with normal wall thickness. Appendix: Normal. Bladder: Collapsed around a Echeverria catheter. Coarse calcifications at the right UVJ are redemonstrated. There is a small amount of encrustation surrounding a loop of the ureteral stent. Ureters: The right ureter is distended to the iliac artery bifurcation. There are 1-2 linear hyperdensities along the course of the mid/distal ureter suggestive of calculi. The ureter distal to this is collapsed. The proximal left ureter is distended just past the UPJ. There are no calcifications along the course of the stent. The uterus is atrophic. No adnexal mass. Peritoneum/retroperitoneum: No free fluid or fluid collection. Bones: Mild degenerative changes of the lower lumbar spine. Mild to moderate degenerative changes of the lower thoracic spine. Diffuse demineralization of the sacrum is redemonstrated. No associated fracture. IMPRESSION: 1. New right hydroureteronephrosis, possibly due to at least two calculi in the mid/distal right ureter. Percutaneous nephrostomy is in appropriate position. 2. Persistent left hydronephrosis despite the presence of 2 stents in the left ureter. One loop in the pelvis appears to have an encrustation. 3. Other findings as described above are stable. Signed by: Dr. Glo Lo MD on 06/04/2019 5:55 PM
[2019-06-04] MEDS ORDERED: CIPROFLOXACIN 400 MG/D5W 200ML 200 ML IV SCH (18:00)
[2019-06-04] MEDS: METOPROLOL TARTRATE 25 MG TAB PO SCH (18:05)
[2019-06-04] MEDS: SENNA-S TABLET PO SCH (18:05)
[2019-06-04 20:06] VITALS: BP 132/74
[2019-06-04 21:21] VITALS: BP 132/74
[2019-06-05] VITALS (8 sets, daily range): BP systolic 122–168; BP diastolic 63–79
[2019-06-05] MEDS ORDERED: LINEZOLID 600 MG/D5W 300ML 300 ML IV SCH (03:00)
[2019-06-05] MEDS: SODIUM CHLORIDE 0.9% 1000ML 1,000 ML IV SCH (03:15)
[2019-06-05 06:01] LABS: BASOPHILS % 0.1 % (0.0-1.0); HEMATOCRIT 30.2 % (34.2-44.1); HEMOGLOBIN 9.2 g/dL (12.0-16.0); LYMPHOCYTES % 12.4 % (18.0-39.1); MEAN CORPUSCULAR HEMOGLOBIN 25.1 pg (28-32); MEAN CORPUSCULAR HGB CONC 30.5 g/dL (31-35); MEAN CORPUSCULAR VOLUME 82.5 fL (81-99); MONOCYTES # (AUTO) 0.3 (0.2-0.8); MONOCYTES % 3.1 % (4.4-11.3); NEUTROPHILS # (AUTO) 6.8 (2.1-6.9); NEUTROPHILS % 83.8 % (38.7-80.0); PLATELET COUNT 263 x10e3/uL (140-360); RED BLOOD COUNT 3.66 x10e6/uL (3.6-5.1); RED CELL DISTRIBUTION WIDTH 14.9 % (11.7-14.4)
[2019-06-05 06:19] LABS: ALBUMIN 2.8 g/dL (3.5-5.0); ALBUMIN/GLOBULIN RATIO 0.6 (0.8-2.0); ANION GAP 11.8 mmol/L (8-16); CALCIUM 9.1 mg/dL (8.4-10.2); CREATININE, SERUM 1.84 mg/dL (0.57-1.11); POTASSIUM 3.8 mmol/L (3.5-5.1)
--- NOTE | 2019-06-05 07:00 | NUR ---
received bedside report. pt is alert ambulating from bathroom, no s/s of distress. no c/o of pain at this time. call light within reach and instructed pt to call RN for help
[2019-06-05] MEDS: SENNA-S TABLET PO SCH ×2 (08:26→17:11)
[2019-06-05] MEDS: METOPROLOL TARTRATE 25 MG TAB PO SCH ×2 (08:26→17:11)
[2019-06-05] MEDS ORDERED: DEXTROSE 50% SYRINGE 50 ML IV PRN (10:00)
--- NOTE | 2019-06-05 10:36 | NUR ---
INFECTIOUS DISEASE CONSULT NOTE 06/05/19 CC: "No one will give me a new bag, and my tube won't drain" HPI: This patient, who is a 57-year-old female, history of recurrent UTI, history of multidrug-resistant pathogen. The patient comes into the emergency room with flank pain and complaints that her nephrostomy tube was not emptying properly. The patient denies fever or chills. 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 The patient has history of UTI, history of nephrostomy on the right, history stent placement, history of hydronephrosis. She is well known to Dr. Darby. ROS: Reports: flank pain Denies: fever, chills, abdominal pain, nausea, vomiting, diarrhea ROS 14 point obtained and negative unless otherwise documented PHYSICAL EXAM VS: General: sitting up in bed HEENT: AAOX3, awake, alert CV: s1, s2, no s3, s4 CHEST: symmetrical expansion, CLAB ABD: soft, non-tender, obese, maravilla and nephrostomy tube EXT: moves all PSYCH: intact LABS: no leukocytosis, all labs reviewed MEDS: will d/c zyvox and cipro IV RADIOLOGY: IMPRESSION: 1. New right hydroureteronephrosis, possibly due to at least two calculi in the mid/distal right ureter. Percutaneous nephrostomy is in appropriate position. 2. Persistent left hydronephrosis despite the presence of 2 stents in the left ureter. One loop in the pelvis appears to have an encrustation. 3. Other findings as described above are stable. ASSESSMENT: 1. Right Hydronephrosis with nephrostomy tube 2. UTI- MRDO colonization 3. Flank pain 4. Obesity 5. Left Hydronephrosis with stents PLAN: 06/05/19 Urine is likely colonization, patient is afebrile. We will d/c zyvox and cipro. Await cultures and monitor clinically. For now we will do Cefepime. Further reqs depending on culture results Discussed with Dr. Mar
[2019-06-05] MEDS: INSULIN LISPRO 100 UNIT/1 ML 3ML VIAL SQ SCH ×3 (11:30→20:59)
[2019-06-05] MEDS ORDERED: CEFEPIME HCL 1 GM VIAL IV SCH (17:00)
[2019-06-05] MEDS: ACETAMINOPHEN/CODEINE 300MG - 30MG TAB PO PRN ×2 (17:10→21:19)
[2019-06-05] MEDS ORDERED: SODIUM CHLORIDE 0.9% 250ML 250 ML ONE (17:10)
[2019-06-05] MEDS: CEFEPIME 1GM/NS 0.9% 50 ML 50 ML IV SCH (17:10)
--- NOTE | 2019-06-05 18:50 | NUR ---
RECEIVED REPORT FROM [facility] NURSE. RESTING ON BED. AAOX3. R FA 20G SALINE LOCK. NO SIGNS OF INFILTRATION. NEPHROSTOMY TO RIGHT LOWER FLANK. NO ADVERSE SIGNS. MEI DRAINING URINE TO GRAVITY. SR UPX2. BED LOCKED AND IN LOW POSITION. CALL LIGHT WITHIN REACH.
[2019-06-06] VITALS (8 sets, daily range): BP systolic 127–135; BP diastolic 64–77
[2019-06-06] MEDS: MORPHINE SULFATE INJ 4 MG/ML INJ 1ML IV PRN ×6 (04:25→22:49)
[2019-06-06 05:39] LABS: ANION GAP 10.3 mmol/L (8-16); CALCIUM 8.4 mg/dL (8.4-10.2); CREATININE, SERUM 1.57 mg/dL (0.57-1.11); POTASSIUM 3.3 mmol/L (3.5-5.1)
--- NOTE | 2019-06-06 07:10 | NUR ---
REPORT GIVEN TO [facility] NURSE. AAOX3. RESTING IN BED. R UA SALINE LOCK. NO SIGNS OF INFILTRATION. R NEPHROSTOMY DRAINING TO URINE. MEI DRAINING TO GRAVITY. NO ADVERSE SIGNS. SR UPX2. BED LOCKED AND IN LOW POSITION. CALL LIGHT WITHIN REACH.
--- NOTE | 2019-06-06 07:12 | NUR ---
ASSUMED CARE. PATIENT AAOX3. ACYANOTIC. RESTING IN BED. NO DISTRESS NOTED. CALL LIGHT IN REACH. SIDE RAILS UP X2. BED LOW.
[2019-06-06] MEDS: INSULIN LISPRO 100 UNIT/1 ML 3ML VIAL SQ SCH ×4 (07:30→20:40)
[2019-06-06] MEDS ORDERED: POTASSIUM CHLORIDE 10MEQ EA PO SCH (08:45)
[2019-06-06] MEDS: METOPROLOL TARTRATE 25 MG TAB PO SCH ×2 (08:51→16:40)
[2019-06-06] MEDS: SENNA-S TABLET PO SCH ×2 (08:52→16:36)
--- NOTE | 2019-06-06 10:40 | NUR ---
ASSESSMENT: Spiritual concern Pt contemplates purpose and meaning in life. Pt states she lives to help others. Pt identifies as Anabaptist. Pt concerned about her siblings' support for their mother, a jail resident. Intervention: Provided unhurried empathic listening. Provided prayer. Provided information on how to reach bait maker, if needed. Outcome: Pt expressed appreciation for visit. No need to follow at this time. LUNA WESTON Paper Inserter Spiritual Care Department O: [phone]
--- NOTE | 2019-06-06 11:02 | Consultation ---
DATE OF CONSULTATION: 06/06/2019 HISTORY OF PRESENT ILLNESS: The patient is seen and evaluated, discussed with Dr. Mar in details. This is a 58-year-old female with a 5 years history of right nephrostomy tube and 1-year history of Echeverria catheterization, sees Dr. Darby as an outpatient on a monthly basis for exchange of her Echeverria catheter. The patient comes in secondary to weakness and not feeling well. She knows this is the way she feels like when she gets infection with the urine. She feels better since admission. Denied fever. REVIEW OF SYSTEMS: Feels better. No nausea, no vomiting, no fever, no chills, no chest pain, no shortness of breath, no headache, no dysuria. PHYSICAL EXAMINATION: VITAL SIGNS: Temperature is 96.6, pulse is 56, respirations 18, and blood pressure 134/72. GENERAL: Alert and oriented, in no acute distress. CV: S1 and S2. CHEST: Equal expansion. Clear to auscultation. No acute distress. ABDOMEN: Soft and nontender. No distention. Positive bowel sounds. Obese. HEENT: Moist. No pallor. No JVD. The patient has a right-sided nephrostomy, seems to be draining well. Also has a chronic Echeverria catheter as mentioned above. MEDICATIONS: Medication list reviewed. As far as Infectious Disease point of view, she is on cefepime. LABORATORY STUDIES: White count is 8.09, hemoglobin 9.2, platelet 263. Sodium 139, potassium 3.3, creatinine 1.57. MICROBIOLOGY: Blood cultures negative 24 hours. Urine is growing gram-negative bacilli with identification and sensitivity pending. PATHOLOGY: No new pathology available. RADIOLOGY STUDIES: She had a CT of abdomen and pelvis on 06/03: 1. Showing new right hydroureteronephrosis. 2. Showing persistent left hydronephrosis despite the presence of two stents in her left ureter. Also one loop in the pelvis appears to have an incrustation. ASSESSMENT AND PLAN: A 58-year-old female with of 5 years history of right nephrostomy tube and 1-year history of Echeverria catheterization. The patient admitted for not feeling well. Antibiotic adjusted, currently on cefepime. Follow with urine culture as mentioned above. Blood is being clear to far in past 24 hours. The plan is to change stent after cultures sensitivities available. Continue monitor the patient clinically. Follow up with the labs. Overall, the patient feels better. Further management of this patient is based on daily findings, on laboratory and physical examination. Other medical conditions including hypertension, chronic pain syndrome, diabetes, debility, and obesity. Discussed with Dr. Mar in details. Please see chart for more information. Dictated by Tariq Menjivar) MIO Palu Matilda Mar MD /MODL /[id number]
[2019-06-06] MEDS ORDERED: POTASSIUM CHLORIDE 20 MEQ TAB CR PO SCH (13:15)
[2019-06-06] MEDS: SODIUM CHLORIDE 0.9% 1000ML 1,000 ML IV SCH (13:51)
--- NOTE | 2019-06-06 15:13 | Consultation ---
DATE OF CONSULTATION: 06/06/2019 Initial Nephrology Consultation Report REASON FOR CONSULTATION: Elevated serum creatinine. HISTORY OF PRESENT ILLNESS: Ms. Heredia is a 58-year-old female with a history of a right nephrostomy tube. The patient presented because of just not feeling well, and some little bit of weakness. The patient is now being admitted and being treated for urinary tract infection. I am being asked to see her because of her serum creatinine is elevated. When she presented, her serum creatinine was about 1.7 to 1.8 and today it is 1.57. However, going back to February of this year, she had a normal serum creatinine of 0.9. The patient has extensive medical history. She has a right nephrostomy tube. She says that she has had for several years. She is not sure why it was placed. She says that she had cancer in that kidney. PAST MEDICAL HISTORY: 1. Hypertension. 2. Diabetes. PAST SURGICAL HISTORY: The patient has a right nephrostomy tube in place. The patient also has ureteral stents bilaterally according to the patient and she also has a chronic indwelling Echeverria catheter. MEDICATIONS: The patient is on buspirone, senna, potassium, amlodipine, hydralazine, magnesium hydroxide, stool softener, and insulin Lispro. PHYSICAL EXAMINATION: VITAL SIGNS: Blood pressure 134/72. GENERAL: The patient is obese. HEENT: No increased JVD. CARDIOVASCULAR: Regular rate and rhythm. LUNGS: Decreased breath sounds. ABDOMEN: Positive bowel sounds. EXTREMITIES: No edema. : The patient has a right nephrostomy tube and indwelling Echeverria catheter. LABORATORY RESULTS: BUN and creatinine 20 and 1.57. Electrolytes are within normal limits except for potassium. Potassium is 3.3. H and H are 9 and 30. Her urine culture is growing out Citrobacter freundii. IMPRESSION/PLAN: 1. Urinary tract infection. 2. Acute kidney injury. 3. Hypokalemia. 4. Diabetes. 5. Hypertension. PLAN: At the present time, she is being followed by Infectious Disease and Urology. Her current serum creatinine is starting to get better. I will go ahead and start her on some normal saline at 80 mL an hour. I will replace her potassium orally and IV contrast should be avoided. I will follow up the patient with you. Thank you, Dr. Rodriguez, for this consultation. Ather MD ELFEGO Lopez/ELIZ /[id number]
[2019-06-06] MEDS: ONDANSETRON HCL INJ 2MG/ML 2ML 2 MG/ML VIAL IV PRN (16:34)
[2019-06-06] MEDS: CEFEPIME 1GM/NS 0.9% 50 ML 50 ML IV SCH (16:40)
--- NOTE | 2019-06-06 19:00 | NUR ---
Patient visited in room during nursing rounds. Patient alert and oriented x3. Ambulatory in room prn. On IVF (NS at 80ml/hr). Pt c/o frequent pain on lower back radiating to lower abdomen. 2 Maravilla catheter noted (one connected to right upper back - s/p right nephrostomy 3 months ago and another maravilla - urethral per urology). Call lyn within reach. Will monitor pt closely.
[2019-06-06] MEDS: TRAMADOL HCL 50 MG TAB PO PRN (19:38)
--- NOTE | 2019-06-06 19:44 | NUR ---
Called Dr. Gorge Darby (via phone) and informed him about urine culture result (positive for Citrobacter Freundii). aware pt is on Cefepime IV antibiotic and is sensitive to the bacteria aforementioned. also mentioned he plans surgery possibly on (06/09/19).
--- NOTE | 2019-06-06 19:56 | NUR ---
Called Dr. Rodriguez to ask if patient can have a different pain medication since Morphine 4mg (according to patient) does not lower much pain level. Dr Rodriguez refused to order new pain medication and stated Morphine 4mg IV is more than enough for the patient at this time.
[2019-06-07] VITALS (8 sets, daily range): BP systolic 119–187; BP diastolic 59–93
[2019-06-07] MEDS: SODIUM CHLORIDE 0.9% 1000ML 1,000 ML IV SCH ×2 (01:57→16:14)
[2019-06-07] MEDS: ONDANSETRON HCL INJ 2MG/ML 2ML 2 MG/ML VIAL IV PRN (05:05)
[2019-06-07 06:06] LABS: ANION GAP 13.9 mmol/L (8-16); CREATININE, SERUM 1.93 mg/dL (0.57-1.11); POTASSIUM 3.9 mmol/L (3.5-5.1)
[2019-06-07 06:07] LABS: CALCIUM 8.9 mg/dL (8.4-10.2)
[2019-06-07] MEDS: INSULIN LISPRO 100 UNIT/1 ML 3ML VIAL SQ SCH ×4 (07:57→21:00)
[2019-06-07] MEDS: SENNA-S TABLET PO SCH ×2 (08:11→16:14)
[2019-06-07] MEDS: METOPROLOL TARTRATE 25 MG TAB PO SCH ×2 (08:12→16:26)
[2019-06-07] MEDS ORDERED: HYDROCODONE/APAP 10MG-325MG TAB PO PRN (09:30)
--- NOTE | 2019-06-07 09:31 | Progress Note ---
DATE: 06/07/2019 SUBJECTIVE: The patient is seen and evaluated. Available labs and notes reviewed. REVIEW OF SYSTEMS: The patient has some difficulties with right nephrostomy tube, apparently it was clogged up last night, however, it was resolved and is draining well. No nausea. No vomiting. No fever. No chills. No chest pain. No shortness of breath. OBJECTIVE: VITAL SIGNS: Temperature 98.3, pulse is 71, respirations 20, and blood pressure 168/83. GENERAL: Alert and oriented, in no acute distress. CV: S1 and S2. CHEST: Equal expansion, clear to auscultation, in no acute distress. ABDOMEN: Soft and nontender. No distention. HEENT: Moist. No pallor. No JVD. MEDICATIONS: Medication list reviewed. As far as Infectious Disease point of view, the patient is on cefepime. LABORATORY STUDIES: No new CBC from today, however, sodium was 144, potassium 3.9, and creatinine 1.93 today, which is slightly elevated, but overall in the baseline. MICROBIOLOGY: Urine culture shows Citrobacter freundii, which is sensitive to cefepime. Blood culture was negative x2. RADIOLOGY STUDIES: No new radiology studies available. ASSESSMENT AND PLAN: 1. Malaise and not feeling well. 2. Chronic right nephrostomy tube. 3. Chronic Echeverria catheter. 4. Left-sided stent x2. 5. Currently right hydronephrosis. 6. Persistent left hydronephrosis despite the presence of 2 stents in the left and some loop incrustation. 7. Urine culture as mentioned above. Continue with cefepime. Discussed with . Plan to change the stents hopefully later this week and possible nephrostomy tube exchange sometime soon. Discussed with Dr. Mar. Please refer to chart for more information. Dictated by Tarqi Paul PA-C (Al) Matilda Mar MD /MODL /[id number]
--- NOTE | 2019-06-07 13:33 | NUR ---
patient to IR for nephrostomy change out now.
[2019-06-07] MEDS ORDERED: MIDAZOLAM HCL 2 MG/2 ML VIAL ONE (13:42)
[2019-06-07] MEDS ORDERED: ONDANSETRON HCL INJ 2MG/ML 2ML 2 MG/ML VIAL ONE (13:42)
[2019-06-07] MEDS ORDERED: FENTANYL CITRATE/PF 100MCG/2 ML INJ ONE (13:42)
[2019-06-07] MEDS ORDERED: IOPAMIDOL 300 MG/ML 15ML VIAL IT ONE (13:47)
[2019-06-07] MEDS ORDERED: LIDOCAINE HCL 1% LOCAL INJ 20 ML VIAL ONE (13:47)
--- NOTE | 2019-06-07 16:06 | Diagnostic Imaging Report ---
Right frontal catheter exchange/upsize. History: Malfunctioning indwelling right nephrostomy catheter. Exchange and upsize requested by the referring provider. Modality: Fluoroscopy Sedation: Versed 2 mg and fentanyl 100 mcg was given intravenously for conscious sedation. Vital signs were monitored throughout the procedure by a nurse, and remained stable. Physician intra-service time was 20. Fluoroscopy Time: 3.0 min. Reference Air Kerma (Ka, r): 27.4 mGy. Approach: The indwelling 10 [place]er nephrostomy catheter Estimated blood loss: < 5 cc. Specimen: None. fiber drier operator: Leon Lo MD. Collections Officer: None. Technique/findings: Informed written consent was obtained. Discussion of risks, benefits, and alternatives were made with the patient. The patient expressed understanding and agreed to proceed. A universal timeout was performed prior to starting the procedure. All elements maximal sterile barrier technique was utilized for this procedure, including utilization of sterile scrub solution for skin prep, a large sterile sheet to cover the areas of the patient that were not prepped, and hand hygiene, mask, head covering, and sterile gown for performing radiologist and scrub technologist. Contrast is injected via the indwelling right nephrostomy catheter demonstrating intraluminal position within the right collecting system. Catheter noted to be retracted within a right calyx. The existing catheter was cut. A 0.035 wire could not be advanced through the catheter given occluded end hole. Subsequent, a 5 [place] Kumpe catheter and 0.035 angled Glidewire was used to obtain access into the right collecting system along side the indwelling nephrostomy catheter. The Glidewire was exchanged for a 0.035 Bentson wire. The indwelling nephrostomy catheter was removed. A new 12 [place] Islander and a prosthetic catheter was advanced with the pigtail formed within the right renal pelvis. Contrast injection confirmed position. The catheter was fixed to the skin with silk suture. A sterile dressing was applied. The patient tolerated the procedure without immediate complication. Impression: Successful fluoroscopic guided right nephrostomy catheter exchange/upsize with moderate sedation as detailed above. Signed by: Dr. Leon Lo MD on 06/07/2019 4:03 PM
--- NOTE | 2019-06-07 16:06 | Diagnostic Imaging Report ---
Right frontal catheter exchange/upsize. History: Malfunctioning indwelling right nephrostomy catheter. Exchange and upsize requested by the referring provider. Modality: Fluoroscopy Sedation: Versed 2 mg and fentanyl 100 mcg was given intravenously for conscious sedation. Vital signs were monitored throughout the procedure by a nurse, and remained stable. Physician intra-service time was 20. Fluoroscopy Time: 3.0 min. Reference Air Kerma (Ka, r): 27.4 mGy. Approach: The indwelling 10 [place] nephrostomy catheter Estimated blood loss: < 5 cc. Specimen: None. tire regrooving machine operator: Leon Lo MD. Cosmetic Assembler: None. Technique/findings: Informed written consent was obtained. Discussion of risks, benefits, and alternatives were made with the patient. The patient expressed understanding and agreed to proceed. A universal timeout was performed prior to starting the procedure. All elements maximal sterile barrier technique was utilized for this procedure, including utilization of sterile scrub solution for skin prep, a large sterile sheet to cover the areas of the patient that were not prepped, and hand hygiene, mask, head covering, and sterile gown for performing radiologist and scrub technologist. Contrast is injected via the indwelling right nephrostomy catheter demonstrating intraluminal position within the right collecting system. Catheter noted to be retracted within a right calyx. The existing catheter was cut. A 0.035 wire could not be advanced through the catheter given occluded end hole. Subsequent, a 5 [place] Kumpe catheter and 0.035 angled Glidewire was used to obtain access into the right collecting system along side the indwelling nephrostomy catheter. The Glidewire was exchanged for a 0.035 Bentson wire. The indwelling nephrostomy catheter was removed. A new 12 [place] and a prosthetic catheter was advanced with the pigtail formed within the right renal pelvis. Contrast injection confirmed position. The catheter was fixed to the skin with silk suture. A sterile dressing was applied. The patient tolerated the procedure without immediate complication. Impression: Successful fluoroscopic guided right nephrostomy catheter exchange/upsize with moderate sedation as detailed above. Signed by: Dr. Leon Lo MD on 06/07/2019 4:03 PM
[2019-06-07] MEDS: CEFEPIME 1GM/NS 0.9% 50 ML 50 ML IV SCH (16:26)
--- NOTE | 2019-06-07 19:05 | NUR ---
Patient visited in room during nursing rounds. Patient alert and oriented x3. Ambulatory in room prn. S/P right Nephrostomy tube replacement draining straw colored urine. Echeverria catheter in place. On IVF (NS at 80ml/hr). No c/o pain or discomfort at this time. Call lyn within reach. Will monitor pt closely.
[2019-06-08] VITALS (7 sets, daily range): BP systolic 142–172; BP diastolic 73–97
[2019-06-08] MEDS: SODIUM CHLORIDE 0.9% 1000ML 1,000 ML IV SCH ×3 (05:00→20:55)
[2019-06-08 05:23] LABS: BASOPHILS % 0.3 % (0.0-1.0); EOSINOPHILS # (AUTO) 0.1 (0.0-0.4); EOSINOPHILS % 1.3 % (0.0-6.0); HEMATOCRIT 32.3 % (34.2-44.1); HEMOGLOBIN 9.9 g/dL (12.0-16.0); LYMPHOCYTES # (AUTO) 2.5 (1.0-3.2); LYMPHOCYTES % 24.4 % (18.0-39.1); MEAN CORPUSCULAR HEMOGLOBIN 25.3 pg (28-32); MEAN CORPUSCULAR HGB CONC 30.7 g/dL (31-35); MEAN CORPUSCULAR VOLUME 82.6 fL (81-99); MONOCYTES # (AUTO) 0.7 (0.2-0.8); MONOCYTES % 7.1 % (4.4-11.3); NEUTROPHILS # (AUTO) 6.8 (2.1-6.9); NEUTROPHILS % 66.4 % (38.7-80.0); PLATELET COUNT 270 x10e3/uL (140-360); RED BLOOD COUNT 3.91 x10e6/uL (3.6-5.1)
[2019-06-08 05:40] LABS: ANION GAP 13.3 mmol/L (8-16); CALCIUM 8.1 mg/dL (8.4-10.2); CREATININE, SERUM 1.68 mg/dL (0.57-1.11); POTASSIUM 3.3 mmol/L (3.5-5.1)
--- NOTE | 2019-06-08 07:00 | NUR ---
BEDSIDE SHIFT REPORT RECEVIED PT IN STABLE CONDITION GILSON PAIN AT THIS TIME, UPDATED ON POC VOICED UNDERSTANDING, RUE 22G NO SS OF INFILTRATION NOTED, NO OTHER CO VOIOCED CALL LIGHT IN REACH WILL CONTINUE TO MONITOR
[2019-06-08] MEDS: INSULIN LISPRO 100 UNIT/1 ML 3ML VIAL SQ SCH ×4 (07:30→22:07)
[2019-06-08] MEDS ORDERED: MORPHINE SULFATE INJ 4 MG/ML INJ 1ML IV PRN (08:30)
[2019-06-08] MEDS: METOPROLOL TARTRATE 25 MG TAB PO SCH ×2 (09:04→17:00)
[2019-06-08] MEDS: SENNA-S TABLET PO SCH ×2 (09:04→17:00)
[2019-06-08] MEDS: ONDANSETRON HCL INJ 2MG/ML 2ML 2 MG/ML VIAL IV PRN ×2 (09:10→12:16)
[2019-06-08] MEDS ORDERED: POTASSIUM CHLORIDE 10MEQ EA PO ONE (09:15)
--- NOTE | 2019-06-08 12:11 | Progress Note ---
DATE: SUBJECTIVE: The patient is seen and evaluated and discussed with the nurse. No new events overnight. MEDICATIONS: Medication list reviewed. As far as Infectious Disease point of view, the patient is on cefepime. REVIEW OF SYSTEMS: No nausea, vomiting, fever, chills, chest pain, shortness of breath, headache, dysuria, polyuria. Ostomy tubes seem to be functional. OBJECTIVE: VITAL SIGNS: Temperature is 99.1, pulse is 74, respirations 20, and blood pressure 151/79. GENERAL: Alert and oriented, comfortable in bed, no acute distress. CV: S1, S2. CHEST: Equal expansion. Clear to auscultation. No acute distress. ABDOMEN: Soft, obese, and nontender. HEENT: Moist. No pallor. No JVD. EXTREMITIES: Moves all. LABORATORY DATA: White count of 10.2, hemoglobin 9.9, platelet 270. Sodium 141, potassium 3.3, creatinine 1.68, improved from 1.93. MICROBIOLOGY: No new microbiology studies available. RADIOLOGY STUDIES: No new radiology studies available. The patient had a nephrostogram yesterday. ASSESSMENT AND PLAN: The patient was admitted recently with: 1. Malaise and not feeling well, however, resolved. 2. Chronic right nephrostomy - status post nephrostogram yesterday, then exchange of nephrostomy tube. 3. Chronic Echeverria catheterization. 4. Left-sided stent - plan to exchange those stents tomorrow. 5. Right hydronephrosis. 6. Persistent left hydronephrosis despite of 2 stents - pending stent exchange. 7. Urinary tract infection. 8. Continue with cefepime. 9. Await stent exchange. 10. Currently, monitor the patient clinically. Follow with the labs. 11. Discussed with Dr. Mar. 12. Please refer to chart for more information. Dictated by Tariq Paul PA-C (Al) Matilda Mar MD /MODL /[id number]
[2019-06-08] MEDS: HYDROCODONE/APAP 10MG-325MG TAB PO PRN ×2 (13:33→17:00)
--- NOTE | 2019-06-08 15:12 | NUR ---
NURSE CALLED TO PT STATES " MY MEI JUST POPPED" MEI BULB CHECKED NO FLUID RETURNED, NOTIFIED DR ESPINOSA, ORDERED TO REPLACE MEI. 20F CATHETER PLACED USING STERIL TECHNIQUE, PT TOLERATED WELL. WILL CONTINUE TO MONITOR
[2019-06-08] MEDS: CEFEPIME 1GM/NS 0.9% 50 ML 50 ML IV SCH (17:00)
--- NOTE | 2019-06-08 22:10 | NUR ---
PAGE PLACED FOR MD Yaron ESPINOSA CONCERNING PT REPORTS OF BLADDER SPASMS NOT RELIEVED BY MORPHINE OR NORCO. WAITING FOR CALLBACK.
--- NOTE | 2019-06-08 22:25 | NUR ---
SPOKE WITH MD Yaron ESPINOSA CONCERNING PT REPORTS OF BLADDER SPASMS. NEW ORDER RECEIVED.
[2019-06-08] MEDS: B&O 60MG R/S 60 MG SUPP PR PRN (23:34)
[2019-06-09] VITALS: BP 131/68
[2019-06-09 04:00] VITALS: BP 124/67
[2019-06-09] MEDS: B&O 60MG R/S 60 MG SUPP PR PRN ×2 (05:48→22:21)
[2019-06-09 06:00] LABS: ANION GAP 13.4 mmol/L (8-16); CALCIUM 8.8 mg/dL (8.4-10.2); CREATININE, SERUM 1.34 mg/dL (0.57-1.11); POTASSIUM 3.4 mmol/L (3.5-5.1)
[2019-06-09 06:39] LABS: MAGNESIUM 1.9 MG/DL (1.3-2.1); PHOSPHORUS 2.7 MG/DL (2.3-4.7)
[2019-06-09] MEDS ORDERED: IOPAMIDOL 300MG/ML 50ML INFUS..BTL IV ONE (06:44)
[2019-06-09] MEDS ORDERED: B&O 60MG R/S 60 MG SUPP PR ONE (06:44)
--- NOTE | 2019-06-09 06:50 | NUR ---
REPORT GIVEN TO DAYSHIFT NURSE. NO ADVERSE SIGNS TO R WRIST IV. NO ADVERSE SIGNS TO MEI OR NEPHROSTOMY. AAOX3. RESTING IN BED. BED LOCKED AND IN LOW POSITION. CALL LIGHT WITHIN REACH.
[2019-06-09] MEDS ORDERED: FENTANYL CITRATE/PF 100MCG/2 ML INJ ONE ×2 (08:25→18:09)
[2019-06-09] MEDS: INSULIN LISPRO 100 UNIT/1 ML 3ML VIAL SQ SCH ×4 (09:00→21:26)
[2019-06-09] MEDS: SENNA-S TABLET PO SCH ×2 (09:00→17:00)
[2019-06-09] MEDS: METOPROLOL TARTRATE 25 MG TAB PO SCH ×2 (09:00→17:10)
--- NOTE | 2019-06-09 09:29 | Progress Note ---
DATE: 06/09/2019 REVIEW OF SYSTEMS: No acute distress. No specific complaints per staff. OBJECTIVE: VITAL SIGNS: Temperature is 98.6, pulse 76, respirations 16, and blood pressure 124/73. GENERAL: Comfortable in bed, in no acute distress. CV: S1 and S2. CHEST: Equal expansion, clear to auscultation. ABDOMEN: Soft, obese, nontender. HEENT: Moist. No pallor. No JVD. EXTREMITIES: Weak. MEDICATIONS: Medication list is reviewed. As far as Infectious Disease point of view, the patient is on cefepime. LABORATORY STUDIES: No new CBC. Sodium 142, potassium 3.4, and creatinine 1.34 today. SEROLOGY: COVID-19 not detected on 06/08/2019. MICROBIOLOGY: Recheck urine culture pending. Previous urine culture showed Citrobacter. IMAGING: No new radiology studies available. ASSESSMENT AND PLAN: 1. Chronic right-sided nephrostomy, status post exchange of the tube. 2. Left-sided stents x2-discussed with , both stents were changed today. 3. Right-sided hydronephrosis. 4. Persistent left hydronephrosis, see above. 5. Urinary tract infection. Follow with a recheck urine culture. Previous urine culture was Citrobacter. 6. Malaise and not feeling well-improved/resolved. Discussed with staff. Please refer to chart for more information. Continue with cefepime and follow up with urine culture. Discussed with Dr. Mar in detail. Dictated by Tariq Paul PA-C (Al) Matilda Mar MD /MODL /[id number]
[2019-06-09] MEDS ORDERED: POTASSIUM CHLORIDE 20 MEQ TAB CR PO ONE (09:57)
[2019-06-09 10:00] VITALS: BP 150/72
[2019-06-09] MEDS: SODIUM CHLORIDE 0.9% 1000ML 1,000 ML IV SCH ×2 (12:00→23:38)
[2019-06-09 13:13] VITALS: BP 134/62
--- NOTE | 2019-06-09 14:34 | Diagnostic Imaging Report ---
OR Fluoroscopy: IMPRESSION: Fluoroscopy service provided in the OR. Interpretation not requested. Signed by: Gutierrez Ballard MD on 06/09/2019 2:31 PM
[2019-06-09 16:29] VITALS: BP 123/60
[2019-06-09] MEDS: CEFEPIME 1GM/NS 0.9% 50 ML 50 ML IV SCH (17:10)
[2019-06-09] MEDS ORDERED: ONDANSETRON HCL INJ 2MG/ML 2ML 2 MG/ML VIAL ONE (18:09)
[2019-06-09] MEDS ORDERED: PROPOFOL IV EMULSION 10 MG/ML 20 ML VIAL ONE (18:09)
[2019-06-09] MEDS ORDERED: MIDAZOLAM HCL 2 MG/2 ML VIAL ONE (18:09)
[2019-06-09] MEDS ORDERED: SEVOFLURANE INHAL SOLN 250 ML PEN BTL ONE (18:09)
[2019-06-09] MEDS ORDERED: LIDOCAINE HCL 2% LOCAL INJ 5 ML SDV VIAL INJ ONE (18:09)
[2019-06-09] MEDS ORDERED: DEXAMETHASONE SOD PHOS INJ 4 MG/ML VIAL ONE (18:09)
[2019-06-09 20:00] VITALS: BP_SYST 122; BP_SYST 135; BP_DIAS 65; BP_DIAS 73
--- NOTE | 2019-06-09 23:38 | NUR ---
PROVIDED CASTILE SOAP WIPES TO PERFORM SELF URINARY CATHETER CARE. DEMONSTRATED CORRECT USE OF WIPES.
[2019-06-10] VITALS (8 sets, daily range): BP systolic 135–171; BP diastolic 71–96
--- NOTE | 2019-06-10 00:12 | Operative Report ---
DATE OF PROCEDURE: 06/09/2019 SURGEON: Gorge Darby MD PREOPERATIVE DIAGNOSES: 1. Left ureteral stricture. 2. Left indwelling ureteral stents. 3. Left hydronephrosis due to stricture. 4. Vesicoureteric reflux. POSTOPERATIVE DIAGNOSES: 1. Left ureteral stricture. 2. Left indwelling ureteral stents. 3. Left hydronephrosis due to stricture. 4. Vesicoureteric reflux. 5. Grade 1 rectocele. 6. Atrophic (senile) vaginitis. 7. Early urethral erosion due to chronic Echeverria catheterization. OPERATION PERFORMED: 1. Cystourethroscopy with cystography (separate procedure performed to evaluate the vesicoureteric reflux). 2. Cystourethroscopy with complicated removal of 2 separate left-sided indwelling ureteral stents (separate procedure performed for the diagnosis of stents). 3. Left ureteroscopy with dilation of ureteral stricture (separate procedure performed for the diagnosis of stricture). 4. Radiological Services for supervision and interpretation of ureteroscopy, no radiologist present. 5. Cystourethroscopy with insertion of 2 separate left-sided indwelling ureteral stents (separate procedure performed to relieve the hydronephrosis). 6. Interpretation of retrograde ureteropyelography, no radiologist present. 7. Supervision of fluoroscopy, no radiologist present. 8. Pelvic examination under anesthesia. 9. Interpretation of cystography. ANESTHESIA: General. COMPLICATIONS: None. CLINICAL SUMMARY: Please refer to the patient's voluminous chart. The patient is brought for the above procedures. She is a very complicated patient. This procedure was performed during the COVID-19 emergency situation due to the fact that this is not an elective procedure. The patient has a worsening hydronephrosis on the left hand side. She probably has nonfunctional stents. The patient is way overdue for changing of these stents due to her noncompliance scheduling. Nevertheless, this procedure is mandatory. OPERATIVE PROCEDURE IN DETAIL: Informed consent verified. Rita Heredia was properly identified, taken to the operating room, placed in the cystoscopy table in supine position, and anesthesia was uneventfully begun. The patient was then carefully and gently repositioned in the dorsal lithotomy position with all pressure points well padded. Her Echeverria catheter was removed. Her genitalia were prepared and draped in usual sterile fashion. The cystoscope sheath with obturator in place was atraumatically inserted into the patient's urethra and the bladder was drained. Panendoscopy revealed erythema, inflammation, blood clots, one hair, and 2 stents emerging from the left ureteral orifice. These stents appeared old, but they were not significantly encrusted. Multiple attempts were made to find the right ureteral orifice in order to perform retrograde pyelograms for documentation. This was not surprising given the degree of inflammation and mucosal irregularity in this radiated bladder. We then injected contrast and the performed cystography. Interpretation of cystography contrast was injected via the cystoscope into the patient's bladder. There was no evidence of right vesicoureteric reflux. The bladder was extremely small. There was almost immediate left-sided vesicoureteric reflux into the distal left ureter, which was dilated. A guidewire was then placed alongside the stent into the left ureter. The stents were then grasped and discarded. A double-lumen ureteral catheter was then placed over the guidewire as we dilated the distal ureteral stricture that began several centimeter into the left ureter. We obtained a brisk hydronephrotic drip, which was relatively clear, was sent for culture and sensitivity nevertheless. Contrast was injected. Secondary guidewire was placed. A semi-rigid ureteroscope was then placed alongside the guidewire and guided into the patient's distal ureter. The distal ureter was blanched. It was obviously damaged from radiation. After we were up into the ureter for several centimeters, the ureter took a turn. The ureter was completely fixed negotiating the semi-rigid ureteroscope up this ureter any further would result in injury and we were not going to do that. It was obvious that this region was dilated adequately with the coaxial dilator sheath or double-lumen ureteral catheter. With cystoscopic and fluoroscopic guidance, 2 separate indwelling ureteral stents were then placed. These were coiled in the patient's kidney as well as the patient's bladder. We grasped the one here that was within the bladder and extracted it. 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 An 18-Wallisian Echeverria catheter with a 10 mL balloon was then placed. It was irrigated to and fro to ensure it worked properly. The patient's bladder was then drained. Pelvic examination under anesthesia revealed a grade 1 rectocele with atrophic (senile) vaginitis. No abnormal palpable pelvic masses could be appreciated. There were no obvious mucosal lesions. The patient was then uneventfully reversed from anesthesia, taken to recovery room in stable condition. There were no complications to the procedure. The patient tolerated the procedure well. We will observe the patient in the hospital another day prior to her discharge on culture specific antibiotics based on the Infectious Diseases consultants. MD MYRA Frazier/ELIZ /[id number]
[2019-06-10 05:53] LABS: BASOPHILS % 0.2 % (0.0-1.0); EOSINOPHILS # (AUTO) 0.1 (0.0-0.4); EOSINOPHILS % 0.6 % (0.0-6.0); HEMATOCRIT 32.7 % (34.2-44.1); HEMOGLOBIN 10.1 g/dL (12.0-16.0); LYMPHOCYTES % 23.3 % (18.0-39.1); MEAN CORPUSCULAR HEMOGLOBIN 25.5 pg (28-32); MEAN CORPUSCULAR HGB CONC 30.9 g/dL (31-35); MEAN CORPUSCULAR VOLUME 82.6 fL (81-99); MONOCYTES # (AUTO) 0.7 (0.2-0.8); MONOCYTES % 5.5 % (4.4-11.3); NEUTROPHILS # (AUTO) 8.8 (2.1-6.9); NEUTROPHILS % 69.8 % (38.7-80.0); PLATELET COUNT 273 x10e3/uL (140-360); RED BLOOD COUNT 3.96 x10e6/uL (3.6-5.1); RED CELL DISTRIBUTION WIDTH 14.6 % (11.7-14.4)
[2019-06-10 06:21] LABS: ANION GAP 9.6 mmol/L (8-16); CALCIUM 8.6 mg/dL (8.4-10.2); CREATININE, SERUM 1.27 mg/dL (0.57-1.11); POTASSIUM 3.6 mmol/L (3.5-5.1)
--- NOTE | 2019-06-10 07:19 | NUR ---
BEDSIDE SHIFT REPORT GIVEN. PATIENT IN STABLE CONDITION. NO SIGNS OR SYMPTOMS OF DISTRESS NOTED.
[2019-06-10] MEDS: INSULIN LISPRO 100 UNIT/1 ML 3ML VIAL SQ SCH ×4 (07:30→21:00)
[2019-06-10] MEDS: SENNA-S TABLET PO SCH ×2 (09:00→17:00)
[2019-06-10] MEDS: TRAMADOL HCL 50 MG TAB PO PRN (09:12)
[2019-06-10] MEDS: METOPROLOL TARTRATE 25 MG TAB PO SCH ×2 (09:13→17:34)
--- NOTE | 2019-06-10 10:49 | Progress Note ---
DATE: 06/10/2019 SUBJECTIVE: The patient is seen and evaluated. Discussed with Dr. Mar in detail. REVIEW OF SYSTEMS: No nausea. No vomiting. No fever. No chills. No chest pain. No shortness of breath. No headache. No dysuria. No polyuria. OBJECTIVE: VITAL SIGNS: Temperature is 97.3, pulse is 64, respirations 18, and blood pressure 137/74. GENERAL: Alert and oriented, very pleasant, in no acute distress. CV: S1 and S2. CHEST: Equal expansion, clear to auscultation. No acute distress. ABDOMEN: Soft and nontender. No distention. HEENT: Moist. No pallor. No JVD. EXTREMITIES: Moves all. : The patient remains with a right-sided nephrostomy tube and Echeverria catheter. MEDICATIONS: Medication list reviewed. As far as Infectious Disease point of view, the patient is on cefepime. LABORATORY STUDIES: White blood cells 12.65, increased from 10.2 on 06/07; hemoglobin is 10.1; and platelets 273. Sodium 138, potassium 3.6, creatinine 1.27, which seems to have overall gradually improving. MICROBIOLOGY STUDIES: Urine culture with Citrobacter on 06/03. Recheck urine culture from 06/08, is pending. IMAGING: No new radiology studies available. ASSESSMENT AND PLAN: 1. Urinary tract infection with Citrobacter. The patient remains on cefepime. Culture and sensitivity reviewed. Recheck urine culture pending. Chronic right-sided nephrostomy tube, status post exchange. 2. Left-sided stent x2-status post exchange. 3. Right-sided hydronephrosis. 4. Persistent left hydronephrosis. 5. Malaise and debility-resolved. Overall feels good and wants to go home with oral antibiotic. Cultures reviewed and discussed with Dr. Mar. Recheck urine cultures still pending and leukocytosis at 12.6, which has increased slightly since 2 days ago. The patient can be discharged with Ceftin p.o. as of this point for total of 14 days whenever the patient is ready for discharge. Please refer to chart for more information. Dictated by Tariq Paul PA-C (Al) Matilda Mar MD /PAULINAL /[id number]
[2019-06-10] MEDS: SODIUM CHLORIDE 0.9% 1000ML 1,000 ML IV SCH (14:32)
[2019-06-10] MEDS: HYDROCODONE/APAP 10MG-325MG TAB PO PRN ×2 (14:32→21:14)
--- NOTE | 2019-06-10 14:42 | NUR ---
Nutrition Screen Note RD Recommendation for Physician: -Continue current diet as ordered Plan of Care: RD following, monitoring for tolerance and adequacy Nutrition reason for involvement: Length of stay Primary Diagnose(s): complicated UTI/pyelonephritis PMH: HTN, diabetes, right nephrostomy tube Ht: 60 in Wt:198 lb BMI: 38.7 kg/m2 IBW:[address] Assessment: (06/10/19) Chart reviewed. Labs and meds reviewed. Pt is a 58 year old female admitted with complicated UTI and pyelonephritis. Pt reports she typically eats 50% of her meals. It is recorded that pt consumed 75% of meals yesterday and 100% of breakfast this morning. Pt reports she has gained weight and that her usual weight is 185 lbs. No N/V/D/C or chewing/swallowing issues at this time. Pt did not have any questions at time of visit. Will continue to monitor. Current Diet: ADA 1800 kcal Malnutrition Evaluation (06/10/19) The patient does not meet criteria for a specified degree of malnutrition at this time. Will re-evaluate at follow-up as appropriate. Diet Education Needs Assessment: Pt declined diet education materials at time of visit. Nutrition Care Level: low Signed: Digna Salcedo, RD, LD
[2019-06-10] MEDS ORDERED: CEFEPIME HCL 1 GM VIAL IM SCH (18:00)
--- NOTE | 2019-06-10 21:10 | NUR ---
PATIENT RESTING IN BED AOX4, NO SIGNS OF DISTRESS NOTED. PATIENT HAS NO IV ACCESS AND WAS CONFIRMED WITH PHYSICIAN. PATIENT VOICED PAIN AT A LEVEL OF 9 AND WAS MEDICATED ORDERED. RIGHT NEPHROSTOMY BAG NOTED AND MEI IS PATENT AND INTACT. BED IS IN LOWEST POSITION, BOTH SIDE RAILS ARE UP, CALL LIGHT IS WITHIN EASY REACH, WILL CONTINUE TO MONITOR.
[2019-06-11] VITALS: BP 161/71
[2019-06-11 04:00] VITALS: BP 156/80
[2019-06-11 05:14] LABS: BASOPHILS % 0.4 % (0.0-1.0); EOSINOPHILS # (AUTO) 0.3 (0.0-0.4); EOSINOPHILS % 2.5 % (0.0-6.0); HEMATOCRIT 32.4 % (34.2-44.1); LYMPHOCYTES # (AUTO) 3.7 (1.0-3.2); MEAN CORPUSCULAR HEMOGLOBIN 25.6 pg (28-32); MEAN CORPUSCULAR HGB CONC 30.9 g/dL (31-35); MEAN CORPUSCULAR VOLUME 82.9 fL (81-99); MONOCYTES # (AUTO) 0.7 (0.2-0.8); MONOCYTES % 7.1 % (4.4-11.3); NEUTROPHILS # (AUTO) 5.7 (2.1-6.9); NEUTROPHILS % 54.2 % (38.7-80.0); PLATELET COUNT 272 x10e3/uL (140-360); RED BLOOD COUNT 3.91 x10e6/uL (3.6-5.1); RED CELL DISTRIBUTION WIDTH 14.7 % (11.7-14.4)
[2019-06-11] MEDS: INSULIN LISPRO 100 UNIT/1 ML 3ML VIAL SQ SCH (07:30)
[2019-06-11 07:52] VITALS: BP 160/73
[2019-06-11] MEDS: SENNA-S TABLET PO SCH (08:15)
[2019-06-11] MEDS: METOPROLOL TARTRATE 25 MG TAB PO SCH (08:21)
[2019-06-11] MEDS: TRAMADOL HCL 50 MG TAB PO PRN (08:22)
[2019-06-11 08:25] VITALS: BP 160/73
[2019-06-11] MEDS ORDERED: GLIPIZIDE ER5 MG PO (10:00)
[2019-06-11] MEDS ORDERED: ZOFRAN8 MG SL (10:01)
[2019-06-11] MEDS ORDERED: LOPRESSOR25 MG PO (10:02)
[2019-06-11] MEDS ORDERED: NORVASC5 MG PO (10:02)
[2019-06-11] MEDS ORDERED: SENOKOT-S TABL1 EACH PO (10:04)
[2019-06-11] MEDS ORDERED: CEFUROXIME500 MG PO (10:06)
[2019-06-11] MEDS ORDERED: NORCO 7.5-3251 EACH PO (10:11)
--- NOTE | 2019-06-11 10:58 | Discharge Summary ---
CONSULTANTS: 1. Dr. Augustine Aguilera. 2. Dr. Gorge Darby. 3. Dr. Matilda Mar. FINAL DIAGNOSES: 1. Acute kidney injury, secondary to dehydration. The patient does have a chronic kidney disease. 2. Multi-drug resistant urinary tract infection, complicated urinary tract infection associated with right pyelonephritis, left hydronephrosis with urethral stents. 3. Right obstructed nephrostomy tube, secondary to right calculi. 4. Status post right nephrostomy tube exchange and also left urethral stent exchange. 5. Chronic indwelling Echeverria catheter. SUMMARY: This is a 58 years old female, who came in to the hospital dehydrated, increase in BUN and creatinine. The patient also has right malfunction and nephrostomy tube, need to be exchanged and also has left ureteral 2 stents need to be exchanged as well. The patient placed on antibiotics. Consultation with Dr. Mar. The patient have multidrug resistant bacteria. The patient was treated. Subsequently, right nephrostomy tube was exchanged after infection subsided and then subsequently also cystoscopy with left ureteral stent exchange as well. The patient has chronic indwelling Echeverria catheter. 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 The patient is otherwise stable at this time. She will go home today. Her newly diagnosis is diabetes with glycohemoglobin A1c of 6.9. The patient is otherwise stable. She will go home with [place] 7.5 q.8 p.r.n. for pain, glipizide XL 2.5 mg daily, Zofran ODT 4 mg sublingual q.4 p.r.n. for nausea and vomiting, Lopressor 50 mg twice a day, Norvasc 5 mg daily, Senna S one tablet twice a day hold for diarrhea. The patient will resume her anxiety medication. The patient is otherwise stable. She will follow up with her family doctor within a week for adjustment of her medication, diabetic monitoring, and continue with treatment. She will follow up with Dr. Gorge Darby per his instruction, most likely within 1 to 2 weeks. The patient is stable, discharged home today. MD HARRIETT Villalba/ELIZ /[id number]
== END 2019-06-11 10:40 | disposition home or self-care (01) | DRG 660 ==
LOC: ER 11:09 → ERHOLD 13:17 → MED/SURG 15:12
PROVIDERS: ADMIT Internal Medicine; ATTEND Internal Medicine
PROC: 0T778DZ Dilation of Left Ureter with Intraluminal Device, Via Natural or Artificial Opening Endoscopic (ICD-10-PCS; 2019-06-09)
PROC: BT1F1ZZ Fluoroscopy of Left Kidney, Ureter and Bladder using Low Osmolar Contrast (ICD-10-PCS; 2019-06-09)
PROC: 0T7D8ZZ Dilation of Urethra, Via Natural or Artificial Opening Endoscopic (ICD-10-PCS; 2019-06-09)
PROC: 0TP98DZ Removal of Intraluminal Device from Ureter, Via Natural or Artificial Opening Endoscopic (ICD-10-PCS; principal; 2019-06-09 07:00)
DX: T83.593A Infection and inflammatory reaction due to other urinary stents, initial encounter (principal); N17.9 Acute kidney failure, unspecified; N39.0 Urinary tract infection, site not specified; Z16.24 Resistance to multiple antibiotics; N13.6 Pyonephrosis; T83.24XA Erosion of graft of urinary organ, initial encounter; E86.0 Dehydration; B96.20 Unspecified Escherichia coli [E. coli] as the cause of diseases classified elsewhere; Z96.0 Presence of urogenital implants; N31.9 Neuromuscular dysfunction of bladder, unspecified; I10 Essential (primary) hypertension; E11.9 Type 2 diabetes mellitus without complications; E87.6 Hypokalemia; N81.6 Rectocele; N11.0 Nonobstructive reflux-associated chronic pyelonephritis; Y73.1 Therapeutic (nonsurgical) and rehabilitative gastroenterology and urology devices associated with adverse incidents
CPT/HCPCS: 36415; 50431; 70450; 71045; 74176; 74420; 74470; 80048; 80053; 81001; 82550; 82553; 82948; 83036; 83735; 84100; 84484; 85025; 85610; 85730; 87040; 87086; 87186; 87635; 93005; 96372; 99284; C1758; C1769; C2617; J0360; J0692; J1100; J1200; J2001; J2020; J2185; J2250; J2270; J2405; J2930; J3010; J7030; J7050; Q9967

== ENCOUNTER 2019-07-04 20:12 | Inpatient (IN) | payer BC, OTHER ==
[~2019-07-04] VITALS: Ht 152.4 cm; Wt 91.6 kg
[~2019-07-04 20:12] MED LIST changes: +CEFUROXIME500 MG PO; +GLIPIZIDE ER5 MG PO; +LOPRESSOR25 MG PO; +METOPROLOL TART25 MG PO; +NORCO 7.5-3251 EACH PO; +NORVASC5 MG PO; +SENOKOT-S TABL1 EACH PO; +ZOFRAN8 MG SL
--- OUTSIDE RECORDS SUMMARY | 2019-07-04 20:18 | XMS REPORT ---
Author Author [facility] t Organization [facility] Address [address] [place] [address] Phone Unavailable Support Name Relationship Address Phone JAN ASHER, VIKY Caregiver [address] [place], [place] [id number] JAN ASHER, VIKY Caregiver [address] [place] [address] KAMILLE MCKAY Caregiver Unknown Unavailable NONSTAFF Caregiver Unknown Unavailable MARY KAY ASHER, Tova HILL Caregiver [address] [place] [address] Unavailable LALA HUTCHINSON Next Of Kin [address] [place] [address] MILLICENT Knowles, KEVIN Caregiver [address] [place] [address] FOUZIA ASHER, Tova SO Caregiver [address] [place] [address] Unavailable Sosa ROCHE MD Caregiver [address] [place] [address] Unavailable Tana KINNEY MD Caregiver 101 [facility] [address] [place] [address] Unavailable SRIRAM ASHER, Tova VASQUEZ Caregiver [address] [place] [address] Unavailable JOSE A HUTCHINSON Next Of Kin [address] [place] [address] MD FIGUEROA CARD MD Caregiver [address] [place] [address] RENAY RANDHAWA Caregiver Unknown CAMMIE ASHER, S LUZ MARINA Caregiver [address] [place] [address] Unavailable RENAY HUGO Caregiver Unknown Unavailable Sosa GUIDRY MD Caregiver [address] [place] [address] Unavailable RENAY THOMAS Caregiver Unknown TASHA ASHER, RENAY Caregiver Unknown Unavailable FITO ANTHONY Caregiver [address] [place] [address] GAYATRI ASHER MD RENAY Caregiver Unknown GREGORIA ASHER, Tana IRMA Caregiver [address] [place] [address] MARY KAY ASHER, Tova LAISEBAS Caregiver [address] [place] [address] RADHA MYERS LUZ MARINA Caregiver [address] [place] [address] MD Tova MUÑIZ LAIRD PRS [address] [place] [address] Lala Hutchinson ECON [address] [place] [address] Jose A Hutchinson ECON [address] [place] [address] Care Team Providers Care Staging Technician Name Role Phone NONSTAFF PCP Unavailable FIGUEROA CARD Attphys Unavailable SANDHIR, AMBICA Attphys Unavailable HAMPEL, JARET Attphys Unavailable SWEET, Tova LAIRD Attphys Unavailable JULIETA, VINNY Attphys Unavailable Sosa GUIDRY Attphys Unavailable MONTOYA, SOUHEIL Attphys Unavailable Dylan SULLIVAN Attphys Unavailable ZOMPA A JUDAH Attphys Unavailable CARLIE NIX Attphys Unavailable Daniel Lyons Attphys Ligia Feliz Attphys FIGUEROA CARD Admphys Unavailable HAMPEL, JARET Admphys Unavailable JULIETA, VINNY Admphys Unavailable MONTOYA, SOUHEIL Admphys Unavailable CARLIE NIX Admphys Unavailable Payers Payer Name Policy Type Policy Number Effective Date Expiration Date Shayna miller [employer] [id number] 2018 00:00:00 [facility] [employer] Exchange [id number] 2018 00:00:00 [facility] Cross Exchange [id number] [facility] [employer] Exchange [id number] 2018 00:00:00 [facility] [employer] [id number] 2018 00:00:00 [facility] [employer] [id number] 2018 00:00:00 [facility] [employer] [id number] 2018 00:00:00 [facility] [employer] [id number] 2018 00:00:00 [facility] [employer] [id number] 2018 00:00:00 [facility] [employer] [id number] 2018 00:00:00 [facility] [employer] [id number] 2018 00:00:00 [facility] [employer] [id number] 2018 00:00:00 [facility] [employer] [id number] 2017 00:00:00 [facility] [employer] [id number] 2017 00:00:00 [facility] [employer] [id number] 2017 00:00:00 [facility] [employer] [id number] 2017 00:00:00 [facility] [employer] [id number] 2017 00:00:00 [facility] [employer] [id number] 2017 00:00:00 [facility] [employer] [id number] 2017 00:00:00 [facility] [employer] [id number] 2017 00:00:00 [facility] [employer] [id number] 2017 00:00:00 [facility] [employer] [id number] 2017 00:00:00 [facility] Advance Directives Directive Decision Effective Date Termination Date Comments Sour ce Yes N/A [facility] Problems Condition Name Condition Details Condition Category Status Onset Date Resolution Date Last Treatment Date Treating Clinician Comments Source Complicated urinary tract infection UTI (urinary tract infection ) Problem Active 2015-10-11 00:00:00 [facility] GEN. PAIN GEN. PAIN Active 03/09/2015 [facility] Active 2015-03-09 00:00:00 2015-10-25 22:11:00 [facility] WEAKNESS WEAK NESS Active 02/15/2015 [facility] Diagnosis Active 2015-02-15 00:00:00 2015-02-15 16:11:00 [facility] BMI 36.0-36.9,adult BMI 36.0-36.9,adult Disease Active 2013-08-03 00:00 :00 Overview: Obese [facility] Obese Obese Disease Active 2013-08-03 00:00:00 [facility] Complicated UTI (urinary tract infection) Complicated UTI (urinary tract infection) Disease Active 2013-06-14 00:00:00 [facility] Hematuria Hematuria Disease Active 2013-06-11 00:00:00 [facility] Fatigue Fatigue Disease Active 2012-06-02 00:00:00 [facility] Myalgia Myalgia Disease Active 2012-06-02 00:00:00 [facility] Fever Fever Disease Active 2012-06-02 00:00:00 [facility] UTI (lower urinary tract infection) UTI (lower urinary tract inf ection) Disease Active 2011-12-10 00:00:00 [facility] Hydronephrosis, right Hydronephrosis, right Disease Active 201 03-12-07 00:00:00 [facility] Flank pain Flank pain Disease Active 2011-02-15 00:00:00 [facility] Pyelonephritis Pyelonephritis Disease Active 2011-02-15 00:00:00 [facility] Cough Cough Disease Active 2010-05-16 00:00:00 [facility] Colitis Colitis Problem Active [facility] Hypokalemia Hypokalemia Problem Active [facility] Obstruction of urinary tract Urinary obstruction Problem Active [facility] Nephrostomy status Nephrostomy status Problem Active [facility] Complication of nephrostomy Nephrostomy complication Problem Active [facility] Urinary tract infection due to Enterococcus UTI (urina ry tract infection) due to Enterococcus Problem Active [facility] Urinary tract infection associated with catheterizatio n of urinary tract UTI (urinary tract infection) due to urinary indwelling catheter Problem Active [facility] Abdominal pain Abdominal pain Problem Active [facility] 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 Problem [facility] Methicillin resistant Staphylococcus aureus (organism) Methicillin resistant Staphylococcus aureus (organism) Active Problem 03/12/2015 Problem added by Discern Expert. 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 03/09/2015 03/12/2015 [facility] Problem 2015-03-09 06:00:00 2015-03-12 06:01:38 2015-03-12 06:01:38 [facility] Discharge Diagnosis: Urinary tract infection, site not specified Discharge Diagnosis: Urinary tract infection, site not specified 02/15/2015 02/18/2015 [facility] Problem 2015-02-15 06:00:00 2015 06:06:10 2015-02-18 06:06:10 [facility] Allergies, Adverse Reactions, Alerts Allergy Name Allergy Type Status Severity Reaction(s) Onset Date Inacti ve Date Treating Clinician Comments Source Meropenem Allergy to substance Active REDNESS, ITCHING 00:00:00 [facility] Diphenhydramine Propensity to adverse reactions to drug Active Other 2008-12-28 00:00:00 BECAME ANXIOUS AND FELT STRA NGE [facility] diphenhydrAMINE diphenhydrAMINE Active [facility] Family History Family Member Diagnosis Comments Start Date Stop Date Source Natural father Diabetes Iraheta [facility] Social History Social Habit Start Date Stop Date Quantity Comments Source Sex Assigned [facility] Alcohol intake 2014-09-14 00:00:00 2014-09-14 00:00:00 [facility] Smoking Status Start Date Stop Date Source Never smoker [facility] Medications Ordered Medication Name Filled Medication Name Start Date Stop Da te Current Medication? Ordering Clinician Indication Dosage Frequency Signature (SIG) Comments Components Source Acetaminophen Acetaminophen 2016-12-31 09:47:00 2018-01-08 00:00:00 No 650 [facility] Acetaminophen/Codeine Phosphate (Tylenol # 3*) 1 Ea TA B Acetaminophen/Codeine Phosphate (Tylenol # 3*) 1 Ea TAB 2016-12-31 09:47:00 2018-01-08 00:00:00 No 2 [facility] Meropenem (Merrem) 500 Mg INJ Meropenem (Merrem) 500 Mg INJ 2016 09:47:00 2017-12-15 00:00:00 No 500 [facility] Lisinopril Lisinopril 2016-11-06 12:33:00 2018-01-08 00:00:00 No 2.5 [facility] Metformin Hcl Metformin Hcl 2016-11-06 12:33:00 2016-12-28 00:00:00 No 500 [facility] Fluconazole Fluconazole 2016-09-13 10:56:00 2016-11-03 00:00:00 No 200 [facility] Levofloxacin (Levaquin) 500 Mg TABLET Levofloxacin (Levaquin ) 500 Mg TABLET 2016-09-13 10:56:00 2016-11-03 00:00:00 No 500 [facility] Sulfamethoxazole/Trimethoprim (Bactrim Ds Tablet) 1 Ea ch TABLET Sulfamethoxazole/Trimethoprim (Bactrim Ds Tablet) 1 Each TABLET 2016-09-13 10:56:00 2016-11-03 00:00:00 No 1 [facility] Ativan 2015-03-10 05:44:00 No 1 mg, Route: PO, Drug form: TAB, ONCE, Dosing Weight 86.364, kg, Priority: STAT, Start date: 03/09/15 23:44:00, Stop date: 03/09/15 23:44:00 [facility] tramadol hydrochloride 50 MG Oral Tablet 2015-03-10 05:43:00 Yes 50 mg = 1 tab, PO, BID, X 15 day, # 30 tab, 0 Refill(s) [facility] tramadol hydrochloride 50 MG Oral Tablet [Ultram] 2015-02-16 01:10:00 Yes 1 - 2 tabs, PO, Q4-6 H, PRN as needed for pain, X 7 day, # 12 tab, 0 Refill(s) [facility] Sulfamethoxazole 800 MG / Trimethoprim 160 MG Oral Tablet [B actrim] 2015-02-16 01:09:00 Yes 1 tab, PO, BID, # 20 tab, 0 Refill(s) [facility] Rocephin 2015-02-15 23:48:00 No 1 gm, Route: IM, ONCE, Dosing Weight 84.091, kg, Start date: 02/15/15 17:48:00, Stop date: 02/15/15 17:48:00 [facility] Ondansetron 2015-02-15 21:36:00 No Notes: (Same as: Wiley) MEDICATION WASTE Product Size: 4 mg Product Wasted: ___ mg [facility] Sodium Chloride 0.154 MEQ/ML Injectable Solution 2015-02-15 21:3 6:00 No 1,000 mL, 1000 ml/hr, Infuse Over: 1 hr, Route: IV, 1,000, Drug form: INJ, ONCE, Priority: STAT, Dosing Weight 84.091 kg, Start date: 02/15/15 15:36:00, Duration: 1 doses or times, Stop date: 02/15/15 15:36:00 [facility] Saline Flush 0.9% 2015-02-15 21:36:00 No Notes: Same as: BD Posiflush Sterile [facility] traMADol (ULTRAM) 50 mg tablet 2014-09-17 16:46:57 Yes 50mg Take 50 mg by mouth as needed. [facility] acetaminophen (TYLENOL) 325 mg tablet 2014-09-17 16:46:57 Y es 650mg Take 650 mg by mouth every 6 hours as needed. [facility] metFORMIN (GLUCOPHAGE) 500 mg tablet 2014-09-17 16:46:57 Ye s 500mg Take 500 mg by mouth 2 times daily (with meals). [facility] fenofibrate nanocrystallized (TRICOR) 145 mg tablet 09-17 16:46:57 Yes 145mg QD Take 145 mg by mouth daily. [facility] lisinopril (PRINIVIL, ZESTRIL) 2.5 mg tablet 2014-09-17 16:46:57 Yes 2.5mg QD Take 2.5 mg by mouth daily. [facility] atorvastatin (LIPITOR) 20 mg tablet 2014-09-17 16:46:57 Yes 20mg Take 20 mg by mouth at bedtime nightly. [facility] HYDROcodone-acetaminophen (NORCO) 10-325 mg tablet 2013-08 00:00:00 Yes Pyelonephritis 1{tbl} Take 1 tablet by mouth every 6 hours as needed for Pain. [facility] cyclobenzaprine (FLEXERIL) 10 mg tablet 2012-11-22 00:00:00 Yes Flank Pain 10mg Take 1 tablet by mouth 2 times daily as needed for Muscle Spasms. [facility] flavoxate (URISPAS) 100 mg tablet 2011-12-17 00:00:00 Yes Hydronephrosis, right 100mg Take 1 tablet by mouth 3 times daily as needed (dysuria). [facility] tamsulosin (FLOMAX) 0.4 mg extended release capsule 10-01 00:00:00 Yes Hydronephrosis .4mg QD Take 1 capsule by mouth daily. [facility] famotidine (PEPCID) 20 mg tablet 2011-02-18 00:00:00 Yes GERD (gastroesophageal reflux disease) 20mg Q.5D Take 1 Tab by mouth 2 times daily. [facility] oxybutynin (DITROPAN) 5 mg tablet 2009-12-17 00:00:00 Yes Ureteral stricture 5mg Take 1 Tab by mouth 3 times daily. For bladder spasms [facility] doxazosin (CARDURA) 2 mg tablet 2009-12-17 00:00:00 Yes Ureteral stricture 2mg Take 1 Tab by mouth at bedtime. [facility] Amlodipine Besylate (Norvasc) 5 Mg TAB Amlodipine Besylate (Norv asc) 5 Mg TAB Yes 5 [facility] Buspirone Hcl Buspirone Hcl Yes 10 [facility] Cefuroxime Axetil (Cefuroxime) 500 Mg TABLET Cefuroxim e Axetil (Cefuroxime) 500 Mg TABLET Yes 500 [facility] Glipizide (Glipizide Er) 5 Mg TAB.ER.24 Glipizide (Glipizide Er) 5 Mg TAB.ER.24 Yes 2.5 [facility] Hydrocodone Bit/Acetaminophen ([place] 7.5-325 Tablet) 1 Each TABLET Hydrocodone Bit/Acetaminophen ([place] 7.5-325 Tablet) 1 Each TABLET Yes 1 [facility] Metoprolol Tartrate (Lopressor) 25 Mg TAB Metoprolol T artrate (Lopressor) 25 Mg TAB Yes 50 [facility] Ondansetron Hcl (Zofran) 8 Mg TABLET Ondansetron Hcl (Zofran) 8 Mg TABLET Yes 4 [facility] Sennosides/Docusate Sodium (Senokot-S Tablet) 1 Each T ABLET Sennosides/Docusate Sodium (Senokot-S Tablet) 1 Each TABLET Yes 1 [facility] Acetaminophen With Codeine (Tylenol With Codeine #3 Ta blet) 1 Each TABLET Acetaminophen With Codeine (Tylenol With Codeine #3 Tablet) 1 Each TABLET 2019-06-11 00:00:00 No 1 [facility] Metoprolol Tartrate Metoprolol Tartrate 2019-06-11 00:00:00 No 25 [facility] Fluconazole Fluconazole 2019-06-04 00:00:00 No 100 [facility] Levofloxacin (Levaquin) 500 Mg TABLET Levofloxacin (Levaquin) 50 0 Mg TABLET 2019-06-04 00:00:00 No 250 [facility] Linezolid (Zyvox) 600 Mg TABLET Linezolid (Zyvox) 600 Mg TABLET 2019-06-04 00:00:00 No 600 [facility] Cephalexin (Keflex) 250 Mg CAPSULE Cephalexin (Keflex) 250 Mg CA PSULE 2019-02-10 00:00:00 No [facility] Chrofloxacin Chrofloxacin 2019-02-10 00:00:00 No 25 [facility] Lisinopril Lisinopril 2019-01-14 00:00:00 No 5 [facility] Dicyclomine Hcl Dicyclomine Hcl 2018-09-30 00:00:00 No 20 [facility] Docusate Sodium (Colace) 100 Mg CAP Docusate Sodium (Colace) 100 Mg CAP 2018-09-30 00:00:00 No 100 [facility] Ondansetron Hcl (Zofran*) 4 Mg TABLET Ondansetron Hcl (Zofran*) 4 Mg TABLET 2018-09-30 00:00:00 No 4 [facility] Buspirone Hcl Buspirone Hcl 2018-07-30 00:00:00 No 10 [facility] Ciprofloxacin Hcl (Cipro) 500 Mg TABLET Ciprofloxacin Hcl (C ipro) 500 Mg TABLET 2018-07-30 00:00:00 No 500 [facility] Acetaminophen With Codeine (Tylenol With Codeine #3 Ta blet) 1 Each TABLET Acetaminophen With Codeine (Tylenol With Codeine #3 Tablet) 1 Each TABLET 2018-07-19 00:00:00 No 1 [facility] Fluconazole (Diflucan) 200 Mg TABLET Fluconazole (Diflucan) 200 Mg TABLET 2018-07-19 00:00:00 No 200 [facility] Ondansetron Hcl Ondansetron Hcl 2018-07-19 00:00:00 No 4 [facility] Cephalexin Monohydrate (Keflex) 500 Mg CAPSULE Cephale ever Monohydrate (Keflex) 500 Mg CAPSULE 2018-05-10 00:00:00 No 500 [facility] Lisinopril Lisinopril 2018-05-06 00:00:00 No 5 [facility] Ondansetron Ondansetron 2018-05-06 00:00:00 No 4 [facility] Ciprofloxacin Hcl (Cipro) 500 Mg TABLET Ciprofloxacin Hcl (C ipro) 500 Mg TABLET 2018-03-26 00:00:00 No 500 [facility] Meropenem Meropenem 2018-01-08 00:00:00 No 1 [facility] Ciprofloxacin Hcl (Cipro) 500 Mg TABLET Ciprofloxacin Hcl (C ipro) 500 Mg TABLET 2017-12-15 00:00:00 No 250 [facility] Fluconazole (Diflucan) 100 Mg TABLET Fluconazole (Diflucan) 100 Mg TABLET 2017-12-15 00:00:00 No [facility] Ciprofloxacin Hcl (Cipro) 500 Mg TABLET Ciprofloxacin Hcl (C ipro) 500 Mg TABLET 2016-12-31 00:00:00 No 250 [facility] Fluconazole (Diflucan) 100 Mg TABLET Fluconazole (Diflucan) 100 Mg TABLET 2016-12-28 00:00:00 No [facility] Metronidazole (Flagyl) 250 Mg TABLET Metronidazole (Flagyl) 250 Mg TABLET 2016-09-07 00:00:00 No 250 [facility] Cranberry/Vit C/L. Sporogenes (Cranberry Tablet) 1 Eac h TABLET Cranberry/Vit C/L. Sporogenes (Cranberry Tablet) 1 Each TABLET 2016-07-24 00:00:00 No 1000 [facility] Atorvastatin Calcium Atorvastatin Calcium 2016-06-10 00:00:00 No 20 [facility] Cefdinir (Omnicef) 300 Mg CAPSULE Cefdinir (Omnicef) 300 Mg CAPS ULE 2016-06-10 00:00:00 No [facility] Cyanocobalamin (Vitamin B-12) (Vitamin B-12) 1,000 Mcg TAB.SUBL Cyanocobalamin (Vitamin B-12) (Vitamin B-12) 1,000 Mcg TAB.SUBL 2016-06-10 00:00:00 N o [facility] Fenofibrate Nanocrystallized (Fenofibrate) 145 Mg TABL ET Fenofibrate Nanocrystallized (Fenofibrate) 145 Mg TABLET 2016-06-10 00:00:00 No [facility] Lisinopril Lisinopril 2016-06-10 00:00:00 No 25 [facility] Amoxicillin/Potassium Clav (Amox Tr-K Clv 875-125 Mg T ab) 1 Each TABLET Amoxicillin/Potassium Clav (Amox Tr-K Clv 875-125 Mg Tab) 1 Each TABLET 2016-01-31 00:00:00 No 1 [facility] Atorvastatin Calcium Atorvastatin Calcium 2016-01-31 00:00:00 No 20 [facility] Cholecalciferol (Vitamin D3) (Vitamin D3) 50,000 Unit CAPSULE Cholecalciferol (Vitamin D3) (Vitamin D3) 50,000 Unit CAPSULE 2016-01-31 00:00:00 No 1 [facility] Cyanocobalamin (Vitamin B-12) 1,000 Mcg TAB Cyanocobal golden (Vitamin B-12) 1,000 Mcg TAB 2016-01-31 00:00:00 No 1000 [facility] Fenofibrate Nanocrystallized (Fenofibrate) 145 Mg TABL ET Fenofibrate Nanocrystallized (Fenofibrate) 145 Mg TABLET 2016-01-31 00:00:00 No 145 [facility] Lisinopril Lisinopril 2016-01-31 00:00:00 No 2.5 [facility] Metformin Hcl Metformin Hcl 2016-01-31 00:00:00 No 500 [facility] Trazodone Hcl Trazodone Hcl 2016-01-31 00:00:00 No 100 [facility] Atorvastatin Calcium Atorvastatin Calcium 2015-11-16 00:00:00 No 20 [facility] Cefdinir (Omnicef) 300 Mg CAPSULE Cefdinir (Omnicef) 300 Mg CAPS ULE 2015-11-16 00:00:00 No 300 [facility] Cyanocobalamin (Vitamin B-12) 1,000 Mcg TAB Cyanocobal golden (Vitamin B-12) 1,000 Mcg TAB 2015-11-16 00:00:00 No 1000 [facility] Fenofibrate Nanocrystallized (Fenofibrate) 145 Mg TABL ET Fenofibrate Nanocrystallized (Fenofibrate) 145 Mg TABLET 2015-11-16 00:00:00 No 1 [facility] Fluconazole (Diflucan) 100 Mg TABLET Fluconazole (Diflucan) 100 Mg TABLET 2015-11-16 00:00:00 No 100 [facility] Lisinopril (Prinavil / Zestril) 20 Mg TABLET Lisinopri l (Prinavil / Zestril) 20 Mg TABLET 2015-11-16 00:00:00 No 25 [facility] Metformin Hcl Metformin Hcl 2015-10-11 00:00:00 No 500 [facility] Tramadol Hcl (Ultram) 50 Mg TABLET Tramadol Hcl (Ultram) 50 Mg T ABLET 2015-10-11 00:00:00 No 50 [facility] Vital Signs Vital Name Observation Time Observation Value Comments Source Body Temperature 2019-06-11 08:25:00 98.5 [degF] [facility] Weight 2019-06-04 15:24:00 198 [lb_av] [facility] BMI (Body Mass Index) 2019-06-04 15:24:00 38.7 kg/m2 [facility] Weight 2015-03-10 02:31:00 [facility] Temperature Oral (F) 2015-03-10 02:31:00 97.9 F [facility] Respitory Rate 2015-03-10 02:31:00 [facility] Heart Rate 2015-03-10 02:31:00 [facility] Systolic (mm Hg) 2015-03-10 02:31:00 [facility] Diastolic (mm Hg) 2015-03-10 02:31:00 [facility] Temperature Oral (F) 2015-02-16 01:28:00 98.4 F [facility] Respitory Rate 2015-02-16 01:28:00 [facility] Heart Rate 2015-02-16 01:28:00 [facility] Systolic (mm Hg) 2015-02-16 01:28:00 [facility] Diastolic (mm Hg) 2015-02-16 01:28:00 [facility] Systolic (mm Hg) 2015-02-15 21:32:00 [facility] Diastolic (mm Hg) 2015-02-15 21:32:00 [facility] Weight 2015-02-15 21:32:00 [facility] BMI Calculated 2015-02-15 21:32:00 [facility] Height 2015-02-15 21:32:00 152.4 cm [facility] Heart Rate 2015-02-15 21:32:00 [facility] Respitory Rate 2015-02-15 21:32:00 [facility] Temperature Oral (F) 2015-02-15 21:32:00 98.1 F [facility] Procedures Procedure Date / Time Performed Performing Clinician [facility] e Computed tomography of brain without radiopaque contrast 2019-05 00:00:[address] [facility] [address] of abdomen and pelvis without contrast 2019-06-04 00:00:00 [facility] CHANGE DRAINAGE DEVICE IN KIDNEY, EXTERNAL APPROACH 2019-02-07 0 0:00:00 [facility] CYSTOSCOPY AND TREATMENT 2019-01-17 00:00:00 [facility] CYSTO W/URETER STRICTURE [place] 2019-01-17 00:00:00 [facility] CYSTOSCOPY AND TREATMENT 2018-10-01 00:00:00 [facility] CYSTO W/URETER STRICTURE [place] 2018-10-01 00:00:00 [facility] Plan of Care Planned Activity Planned Date Details Comments Source [facility] Scheduled Test 2019-11-10 00:00:00 IMM Influenza Seas onal Nov to April (>/= 19 yrs) [code = IMM Influenza Seasonal Nov to April (>/= 19 yrs)] [facility] Scheduled Test 2012 00:00:00 Colorectal Cancer Scrn Annual (FIT/FOBT) Age 50 to 75 [code = Colorectal Cancer Scrn Annual (FIT/FOBT) Age 50 to 75] [facility] Scheduled Test 2004-09-04 00:00:00 Breast Cancer Scrn (Yearly) [code = Breast Cancer Scrn (Yearly)] [facility] Scheduled Test 1983-10-08 00:00:00 Cervical Cancer Sc rn (3 Yrs) [code = Cervical Cancer Scrn (3 Yrs)] [facility] Patient referral [code = [id number] ] [facility] Goal Patient referral [code = [id number] ] [facility] Goal Patient referral [code = [id number] ] [facility] Goal Patient referral [code = [id number] ] [facility] Goal Patient referral [code = [id number] ] [facility] Goal Patient referral [code = [id number] ] [facility] Goal Patient referral [code = [id number] ] [facility] Goal Patient referral [code = [id number] ] [facility] Goal Patient referral [code = [id number] ] [facility] Goal Patient referral [code = [id number] ] [facility] Instructions Echeverria Catheter Care [facility] Instructions Post Operative Pain [facility] Encounters Start Date/Time End Date/Time Encounter Type Admission Type [facility] Care Department Encounter ID Source 2019-06-04 13:17:00 2019-06-11 10:40:00 Discharged Inpatient 1 FIGUEROA CARD [facility] [id number] [facility] 2019-02-24 11:21:00 2019-02-24 20:46:00 Departed Emergency Room 1 LUZ MARINA GARCIA [facility] [id number] [facility] 2019-02-06 08:38:00 2019-02-10 11:48:00 Discharged Inpatient 1 FIGUEROA CARD [facility] [id number] [facility] 2019-01-17 10:39:00 2019-01-17 10:39:00 Registered Surgical Day Car e JARET GAUTIHER [facility] [facility] [id number] [facility] 2019-01-12 20:48:00 2019-01-13 00:40:00 Departed Emergency Room [facility] [id number] [facility] 2018-12-14 09:50:00 2018-12-14 12:01:00 Departed Emergency Room [facility] [id number] [facility] 2018-12-02 08:28:00 2018-12-02 08:28:00 Registered Clinic 3 DUNCAN MPEL, [facility] [id number] [facility] 2018-10-31 05:33:00 2018-10-31 06:27:00 Departed Emergency Room [facility] [id number] [facility] 2018-10-23 12:06:00 2018-10-23 13:42:00 Departed Emergency Room [facility] Center [id number] [facility] 2018-10-01 06:19:00 2018-10-01 06:19:00 Registered Surgical Day Car e 3 JESÚS [facility] Center [id number] [facility] 2018-09-09 18:21:00 2018-09-13 12:48:00 Discharged Inpatient 1 LIZ MUÑIZ [facility] Center [id number] [facility] Patients [facility] 2018-08-06 09:33:00 2018-08-06 09:33:00 Registered Surgical Day Car e 3 JESÚS [facility] [id number] [facility] 2018-07-30 10:15:00 2018-07-30 11:33:00 Departed Emergency Room [facility] [id number] [facility] 2018-07-19 14:11:00 2018-07-19 19:19:00 Departed Emergency Room [facility] [id number] [facility] 2018-05-29 13:14:00 2018-05-29 19:30:00 Departed Emergency Room 1 LIZ MUÑIZ [facility] [id number] [facility] 2018-05-06 14:04:00 2018-05-10 16:20:00 Discharged Inpatient 1 FIGUEROA CARD [facility] [id number] [facility] 2018-04-07 08:50:00 2018-04-07 08:50:00 Registered Surgical Day Car e JARET GAUTHIER [facility] [id number] [facility] 2018-03-29 15:25:00 2018-03-29 17:05:00 Departed Emergency Room [facility] [id number] [facility] Patients [facility] 2018-03-10 12:32:00 2018-03-10 16:55:00 Departed Emergency Room 1 LUZ MARINA BONDS [facility] [id number] [facility] 2018-02-21 12:46:00 2018-02-21 16:46:00 Departed Emergency Room [facility] [id number] [facility] Patients [facility] 2018-01-09 09:35:00 2018-01-13 16:22:00 Discharged Inpatient [facility] [id number] [facility] 2017-12-22 12:28:00 2017-12-22 12:55:00 Departed Emergency Room [facility] [id number] [facility] 2017-12-18 16:30:00 2017-12-18 21:52:00 Departed Emergency Room 1 LIZ MUÑIZ [facility] [id number] [facility] 2017-12-10 14:41:00 2017-12-15 18:30:00 Discharged Inpatient 1 VINNY RENDON [facility] [id number] [facility] 2017-11-30 20:49:00 2017-12-04 16:53:00 Discharged Inpatient 1 RENÉE GUIDRY [facility] [id number] [facility] 2017-11-14 20:27:00 2017-11-14 21:25:00 Departed Emergency Room [facility] [id number] [facility] 2017-11-05 15:08:00 2017-11-05 15:08:00 Registered Clinic 3 JARET MAN [facility] [id number] [facility] 2017-09-18 01:04:00 2017-09-23 18:35:00 Discharged Inpatient 1 VIKY MONTOYA [facility] [id number] [facility] 2017-08-10 13:10:00 2017-08-10 18:25:00 Departed Emergency Room [facility] [id number] [facility] 2017-07-16 02:07:00 2017-07-16 02:38:00 Departed Emergency Room [facility] [id number] [facility] 2017-07-05 12:59:00 2017-07-05 13:01:00 Departed Emergency Room [facility] [id number] [facility] 2017-07-03 07:21:00 2017-07-03 07:21:00 Registered Surgical Day Care [facility] [id number] [facility] 2017-07-01 11:08:00 2017-07-01 11:08:00 Registered Surgical Day Car e OSIEL LAWSON [facility] [id number] [facility] 2017-04-12 13:23:00 2017-04-12 17:28:00 Departed Emergency Room ER MIGUEL ANGELJUDAH Bernardo [facility] [id number] [facility] 2017-03-11 06:30:00 2017-03-14 14:25:00 Discharged Inpatient ER VIKY MONTOYA [facility] [id number] [facility] 2016-12-27 20:18:00 2016-12-31 14:28:00 Discharged Inpatient ER CARLIE NIX [facility] [id number] [facility] 2016-11-06 07:17:00 2016-11-06 17:05:00 Discharged Inpatient ER CARLIE NIX [facility] [id number] [facility] 2016-09-07 18:56:00 2016-09-15 17:00:00 Discharged Inpatient [facility] [id number] [facility] 2016-07-24 15:58:00 2016-07-29 12:09:00 Discharged Inpatient [facility] [id number] [facility] 2016-06-11 08:01:00 2016-06-11 08:01:00 Registered Surgical Day Care [facility] [id number] [facility] 2015-03-10 02:28:00 2015-03-10 05:43:00 [facility] Emergency [facility] [id number] [facility] 2015-03-09 20:28:00 2015-03-09 23:43:00 Outpatient Birgit Lyons [facility] [id number] 2015-02-15 21:13:00 2015-02-16 01:33:00 [facility] Emergency Center [facility] [id number] [facility] 2015-02-15 15:13:00 2015-02-15 19:33:00 Outpatient Cee Natarajan [facility] [id number] Results Test Description Test Time Test Comments Results Result Comments Source Blood leukocytes automated count (number/volume) 2019-06-11 04:45:00 Test Item White Blood Count (test code = 6690-2) 10.45 [facility] (number/volume)2019-06-11 04:45:00* Test Item Value Reference Range Interpretation Comments Red Blood Count (test code = 789-8) 3.91 [facility] measurement (moles/volume)2019-06-11 04:45:00* Test Item Value Reference Range Interpretation Comments Hemoglobin (test code = 75304-8) 10.0 [facility] hematocrit (volume fraction)2019-06-11 04:45:00* Test Item Value Reference Range Interpretation Comments Hematocrit (test code = 4544-3) 32.4 [facility] erythrocyte mean corpuscular igmwyn6939-78-66 04:45:00* Test Item Value Reference Range Interpretation Comments Mean Corpuscular Volume (test code = 787-2) 82.9 [facility] mean corpuscular hemoglobin (mass per erythrocyte)2019-06-11 04:45:00* Test Item Value Reference Range Interpretation Comments Mean Corpuscular Hemoglobin (test code = 785-6) 25.6 [facility] mean corpuscular hemoglobin concentration measurement (mass/volume)2019-06-11 04:45:00* Test Item Value Reference Range Interpretation Comments Mean Corpuscular Hemoglobin Concent (test code = 786-4) 30.9 [facility] WpnMr-Vyl2518-37-02 04:45:00* Test Item Value Reference Range Interpretation Comments Red Cell Distribution Width (test code = 36898-1) 14.7 [facility] platelet count (count/volume)2019-06-11 04:45:00* Test Item Value Reference Range Interpretation Comments Platelet Count (test code = 777-3) 272 [facility] segmented neutrophil count as percentage of total oilyrpjahg0492-59-05 04:45:00* Test Item Value Reference Range Interpretation Comments Neutrophils (%) (Auto) (test code = 30458-3) 54.2 [facility] lymphocyte count as percentage ot total omitplbpiz2414-60-38 04:45:00* Test Item Value Reference Range Interpretation Comments Lymphocytes (%) (Auto) (test code = 736-9) 35.0 [facility] monocyte count as percentage of total ekserffykq5682-83-15 04:45:00* Test Item Value Reference Range Interpretation Comments Monocytes (%) (Auto) (test code = 5905-5) 7.1 [facility] eosinophil count as percentage of total zthvavkpuy1693-69-80 04:45:00* Test Item Value Reference Range Interpretation Comments Eosinophils (%) (Auto) (test code = 713-8) 2.5 [facility] basophil count as percentage of total ncpykjinfa9902-86-26 04:45:00* Test Item Value Reference Range Interpretation Comments Basophils (%) (Auto) (test code = 706-2) 0.4 [facility] AllenFluoroscopic procedure less than one hour klkfkqjo6515-06-35 04:45:00* Test Item Value Reference Range Interpretation Comments IM GRANULOCYTES % (test code = IM GRANULOCYTES %) 0.8 [facility] neutrophil count 2019-06-11 04:45:00* Test Item Value Reference Range Interpretation Comments Neutrophils # (Auto) (test code = 751-8) 5.7 [facility] lymphocytes count (number/volume) 2019-06-11 04:45:00* Test Item Value Reference Range Interpretation Comments Lymphocytes # (Auto) (test code = 37538-0) 3.7 [facility] monocytes automated count (number/volume)2019-06-11 04:45:00* Test Item Value Reference Range Interpretation Comments Monocytes # (Auto) (test code = 742-7) 0.7 [facility] blood eosinophil count 2019-06-11 04:45:00* Test Item Value Reference Range Interpretation Comments Eosinophils # (Auto) (test code = 711-2) 0.3 [facility] basophil count (count/volume)2019-06-11 04:45:00* Test Item Value Reference Range Interpretation Comments Basophils # (Auto) (test code = 704-7) 0.0 [facility] AllenFluoroscopic procedure less than one hour xwpvvxre6602-84-26 04:45:00* Test Item Value Reference Range Interpretation Comments Absolute Immature Granulocyte (auto (irena t code = Absolute Immature Granulocyte (auto) 0.08 [facility] AllenCapillary blood glucose measurement by glucometer (mass/volume)2019-06-10 19:25:00* Test Item Value Reference Range Interpretation Comments Bedside Glucose (test code = 17717-7) 187 [facility] sodium measurement (moles/volume)2019-06-10 05:20:00* Test Item Value Reference Range Interpretation Comments Sodium Level (test code = 2951-2) 138 [facility] potassium measurement (moles/volume)2019-06-10 05:20:00* Test Item Value Reference Range Interpretation Comments Potassium Level (test code = 2823-3) 3.6 [facility] chloride measurement (moles/volume)2019-06-10 05:20:00* Test Item Value Reference Range Interpretation Comments Chloride Level (test code = 2075-0) 109 [facility] carbon dioxide, total measurement (moles/volume)2019-06-10 05:20:00* Test Item Value Reference Range Interpretation Comments Carbon Dioxide Level (test code = 2028-9) 23 [facility] anion rlu9018-10-83 05:20:00* Test Item Value Reference Range Interpretation Comments Anion Gap (test code = 38266-4) 9.6 [facility] urea nitrogen measurement (mass/volume)2019-06-10 05:20:00* Test Item Value Reference Range Interpretation Comments Blood Urea Nitrogen (test code = 3094-0) 19 [facility] creatinine measurement (mass/volume)2019-06-10 05:20:00* Test Item Value Reference Range Interpretation Comments Creatinine (test code = 2160-0) 1.27 [facility] urea nitrogen/creatinine mass edxhk8584-34-54 05:20:00* Test Item Value Reference Range Interpretation Comments BUN/Creatinine Ratio (test code = 3097-3) 15 [facility] AllenEstimated glomerular filtration rate (GFR) etmifynzvhmdp5225-84-07 05:20:00* Test Item Value Reference Range Interpretation Comments Estimat Glomerular Filtration Rate (test code = 386346169) 44 [facility] AllenGlucose djlsvjehdla4627-72-67 05:20:00* Test Item Value Reference Range Interpretation Comments Glucose Level (test code = EKN2887) 163 [facility] calcium measurement (mass/volume)2019-06-10 05:20:00* Test Item Value Reference Range Interpretation Comments Calcium Level (test code = 01198-1) 8.6 [facility] AllenRETROGRADE XXAZTSDOM5892-72-42 14:31:00 [place] [address] Patient Name: WESLY HUTCHINSON MR #: [id number] : 1960 Age/Sex: 58/F Req #: [id number] Adm Physician: FIGUEROA CARD MD Ordered by: JARET ESPINOSA MD Report #: [id number] Location: MED/SURG Room/Bed: [facility] Procedure: [id number] DX/RETROGRAD E PYELOGRAM Exam Date: 06/09/19 Exam Time: 0714 REPORT STATUS: Signed OR Fluoroscopy: IMPRESSION: Fluoroscopy service provided in the OR. Interpretation not requested. Signed by: Gutierrez Lora MD on 06/09/2019 2:31 PM Dictate d By: GUTIERREZ LORA MD 1431 COPY TO: JARET ESPINOSA MD Bacterial urine jajgjok2362-39-36 07:40:00* Test Item Value Reference Range Interpretation Comments Urine Culture (test code = 630-4) VALERIO ALBICANS [facility] AllenPhosphorus mhitizslajy6942-87-58 05:05:00 * Test Item Value Reference Range Interpretation Comments Phosphorus Level (test code = JMA4667) 2.7 [facility] magnesium measurement (mass/volume)2019-06-09 05:05:00* Test Item Value Reference Range Interpretation Comments Magnesium Level (test code = 95920-6) 1.9 [facility] AllenFluoroscopic procedure less than one hour busbotbb0604-17-73 09:50:00* Test Item Value Reference Range Interpretation Comments Coronavirus (PCR) (test code = Coronavirus (PCR)) NOT DETECTED [facility]NEPH[facility]/URET W IMG/IUV-EJHXYLKX7670-02-28 15:57:00 [facility] [address] [place] [address] Patient Name: WESLY HUTCHINSON MR #: [id number] : 1960 Age/Sex: 58/F Req #: [id number] Adm Physician: FIGUEROA CARD MD Ordered by: JARET ESPINOSA MD Report #: [id number] Location: MED/SURG Room/Bed: [facility] Procedure: [id number] IR/NEPHRO/UR ET W IMG/INJ-EXISTING Exam Date: Exam Time: REPORT STATUS: Signed Right frontal ca theter exchange/upsize. History: Malf unctioning indwelling right nephrostomy catheter. Exchange and upsize requeste d by the referring provider. Modal ity: Fluoroscopy Sedation: Versed 2 mg and fentanyl 100 mcg was given intrave nously for conscious sedation. Vital signs were monitored throughout the proc edure by a nurse, and remained stable. Physician intra-service time was 20. Fluoroscopy Time: 3.0 min. Reference Air Kerma (Ka, r): 27.4 mGy. Approach: The indwelling 10 Jordanian neph rostomy catheter Estimated blood loss: < 5 cc. Specimen: None. turning machine set up operator: Leon Lo MD. Hi Ranger Operator: None. Technique/findings: Informed written consent was obtained. Discussion of risks, benefits, and alternatives were made with the patient. The patient expressed understanding and agreed to proceed. A universal timeout was performed prior to starting the procedure. All elements maximal sterile b arrier technique was utilized for this procedure, including utilization of tyshawn rile scrub solution for skin prep, a large sterile sheet to cover the areas of the patient that were not prepped, and hand hygiene, mask, head covering, and sterile gown for performing radiologist and scrub technologist. Contrast is injected via the indwelling right nephrostomy catheter demonstrating intra luminal position within the right collecting system. Catheter noted to be retr acted within a right calyx. The existing catheter was cut. A 0.035 wire cou ld not be advanced through the catheter given occluded end hole. Subsequent, a 5 Jordanian Kumpe catheter and 0.035 angled Glidewire was used to obtain access into the right collecting system along side the indwelling nephrostomy cathete r. The Glidewire was exchanged for a 0.035 Bentson wire. The indwelling nephro stomy catheter was removed. A new 12 Jordanian and a prosthetic catheter was adva nced with the pigtail formed within the right renal pelvis. Contrast injection confirmed position. The catheter was fixed to the skin with silk suture. A st erile dressing was applied. The patient tolerated the procedure without i mmediate complication. Impression: Successful fluoroscopic guided right nephrostomy catheter exchange/upsize with moderate sedation as detailed above. Signed by: Dr. Marly Patton MD on 06/07/2019 4:03 PM Dictated By: LEON LO MD Electro nically Signed By: LEON LO MD on 06/07/19 160 Transcribed By: DEYANIRA on 06/07/19 1603 COPY TO: JARET ESPINOSA MD IR FIAUMOC9599-05-07 15:57:00 [place] [address] Patient Name: WESLY HUTCHINSON MR #: [id number] : 1960 Age/Sex: 58/F Req #: [id number] [facility] Physician: FIGUEROA CARD MD Ordered by: JARET ESPINOSA MD Report #: [id number] Location: MED/SURG Room/Bed: [facility] Procedure: [id number] DX/IR CONSUL T Exam Date: Exam Time: REPORT STATUS: Signed Right frontal catheter exchange/upsi ze. History: Malfunctioning indwelling right nephrostomy catheter. Exchange and upsize requested by the referring mayra gaitan. Modality: Fluoroscopy Sedation: Versed 2 mg and fentanyl 100 mcg was given intravenously for conscio us sedation. Vital signs were monitored throughout the procedure by a nurse, and remained stable. Physician intra-service time was 20. Fluoroscopy T yvette: 3.0 min. Reference Air Kerma (Ka, r): 27.4 mGy. Approach: The indwelling 10 Jordanian nephrostomy catheter Estimated blood loss: < 5 cc. Specimen: None. turning machine set up operator: Leon Lo MD. Hi Ranger Operator: None. Technique/findings: Informed written consent was obtained. Discussion of risks, benefits, and alternatives were made with the patient. The patient expressed understanding and agreed to proceed. A universal timeout was performed prior to starting the procedure. All elements maximal sterile barrier technique was utilized for this procedure, including utilization of sterile scrub solution for skin prep, a large sterile sheet to cover the areas of the patient that were not prepped, and hand hygiene, mask, head covering, and sterile gown for performing radiologist and scrub technologist. Contrast is injected via the indwelling right nephrostomy catheter demonstrating intraluminal position within the right collecting system. Catheter noted to be retracted within a right calyx. The existing catheter was cut. A 0.035 wire could not be advanced through the catheter given occluded end hole. Subsequent, a 5 Jordanian Kumpe catheter and 0.035 angled Glidewire was used to obtain access into the right collecting system along side the indwelling nephrostomy catheter. The Glidewire was exchanged for a 0.035 Bentson wire. The indwelling nephrostomy catheter was removed. A new 12 Jordanian and a prosthetic catheter was advanced with the pigtail formed within the right renal pelvis. Contrast injection confirmed position. The catheter was fixed to the skin with silk suture. A sterile dressing was applied. The patient tolerated the procedure without immediate complication. Impression: Successful fluoroscopic guided right nephrostomy catheter exchange/upsize with moderate sedation as detailed above. Signed by: Dr. Leon Lo MD on 06/07/2019 4:03 PM Dictated By: LEON LO MD Electro nically Signed By: LEON LO MD on 06/07/191602 Transcribed By: DEYANIRA on 06/07/191602 COPY TO: JARET ESPINOSA MD Fluoroscopic procedure less than one hour iealsads6232-90-39 04:40:00* Test Item Value Reference Range Interpretation Comments Hemoglobin A1c Percent (test code = Hemoglobin A1c Percent) 6.9 [facility] total bilirubin measurement (mass/volume)2019-06-05 05:10:00* Test Item Value Reference Range Interpretation Comments Total Bilirubin (test code = 1975-2) 0.2 [facility] less than one hour yulbxrqy6126-82-55 05:10:00* Test Item Value Reference Range Interpretation Comments Aspartate Amino Transf (AST/SGOT) (test code = Aspartate Amino Transf (AST/SGOT)) 9 [facility] alanine aminotransferase measurement (enzymatic activity/volume)2019-06-05 05:10:00* Test Item Value Reference Range Interpretation Comments Alanine Aminotransferase (ALT/SGPT) (test code = 1742-6) 12 [facility] protein measurement (mass/volume)2019-06-05 05:10:00* Test Item Value Reference Range Interpretation Comments Total Protein (test code = 2885-2) 7.3 [facility] albumin measurement (mass/volume)2019-06-05 05:10:00* Test Item Value Reference Range Interpretation Comments Albumin (test code = 1751-7) 2.8 [facility] globulin measurement (mass/volume) 2019-06-05 05:10:00* Test Item Value Reference Range Interpretation Comments Globulin (test code = 47471-5) 4.5 [facility] albumin/globulin mass hbqtr1569-70-58 05:10:00* Test Item Value Reference Range Interpretation Comments Albumin/Globulin Ratio (test code = 1759-0) 0.6 [facility] alkaline phosphatase measurement (enzymatic activity/volume)2019-06-05 05:10:00* Test Item Value Reference Range Interpretation Comments Alkaline Phosphatase (test code = 6768-6) 90 [facility] CS6022-29-26 17:22:00 [facility] [address] [place] [address] Patient Name: WESLY HUTCHINSON MR #: [id number] : Age/Sex: 58/F Req #: [id number] Adm Physician: FIGUEROA CARD MD Ordered by: FIGUEROA CARD MD Report #: [id number] Location: MED/SURG Room/Bed: [facility] Procedure: [id number] C T/CT ABDOMEN/PELVIS WO Exam Date: 06/04/19 Exam Time : 1700 REPORT STATUS: Signed CT Abdomen and Pelvis without contrast INDICATION: UTI/abdominal pain, ureter al stents and percutaneous nephrostomies ABD PAIN [id number] TE CHNIQUE: Thin collimation axial images obtained from the diaphragm to the leve l of the pubic symphysis without nonionic intravenous contrast. Dose reduc tion techniques used: Automated exposure control, adjustment of the mAs and/or kVp according to patient size, standardized low-dose protocol, and/or iterati ve reconstruction technique. RADIATION DOSE: Total DLP: 634.06 mGy*c m Estimated effective dose: DLP x 0.015 x size factor mSv CTDIvol has been reviewed. It is below the limits set by the Radiation Protocol Commit britni (RP). COMPARISON: CT abdomen/pelvis 05/29/2018. ABDOMEN FINDINGS: Lung Bases: Calcified granuloma in the lateral right lower lobe is stable. Small amount of posterior layering atelectasis. The visualized portion of the mediastinum is normal. Liver: Normal in attenuation without mass. G allbladder: Present with a calcified gallstone measuring 2 cm near the neck. No ductal dilatation. Pancreas: Normal attenuation without mass. Splee n: Normal size without mass. Adrenal Glands: No evidence for mass. Kid neys: Right: Percutaneous the approximate is in the posterior aspect of the collecting system. There is marked hydronephrosis. Trace perinephric inflamma tion. No calculus in the collecting system. No cortical mass Left: There are 2 stents in the collecting system are redemonstrated that extend into the urinary bladder. The renal pelvis remains dilated. No evidence of calculus. M ild renal atrophy. No cortical mass Lymph Nodes: Prominent left periaortic lymph nodes are stable and likely reactive. Aorta: Normal in diameter wi th scattered calcifications. PELVIS FINDINGS: Bowel: Stomach: Nor mal. Small Bowel: Normal in caliber with normal wall thickness. Large Bowel: Normal in caliber with normal wall thickness. Appendix: Normal. Bladder: Collapsed around a Echeverria catheter. Coarse calcifications at the right UVJ are redemonstrated. There is a small amount of encrustation surrounding a loop of the ureteral stent. Ureters: The right ureter is distended to the iliac ar vinny bifurcation. There are 1-2 linear hyperdensities along the course of the mid/distal ureter suggestive of calculi. The ureter distal to this is collapse d. The proximal left ureter is distended just past the UPJ. There are no calcifications along the course of the stent. The uterus is atrophic. No ad nexal mass. Peritoneum/retroperitoneum: No free fluid or fluid collection. Bones: Mild degenerative changes of the lower lumbar spine. Mild to moderate degenerative changes of the lower thoracic spine. Diffuse demineralization of the sacrum is redemonstrated. No associated fracture. IMPRESSION: 1. New right hydroureteronephrosis, possibly due to at least two calculi in the mid/distal right ureter. Percutaneous nephrostomy is in appropriate position. 2. Persistent left hydronephrosis despite the presence of 2 stents in the left ureter. One loop in the pelvis appears to have an encrustation. 3. Other findings as described above are stable. Signed by: Dr. Glo campos MD on 06/04/2019 5:55 PM Dictated By: GLO MEDRANO MD Electro nically Signed By: GLO EMDRANO MD on 06/04/191754 Transcribed By: LANCE Meehan on 06/04/191754 COPY TO: FIGUEROA CARD MD CT BRAIN [id number] 15:26:00 [place] [address] Patient Name: WESLY HUTCHINSON MR #: [id number] : 1960 Age/Sex: 58/F Req #: [id number] Adm Physician: FIGUEROA CARD MD Ordered by: LIZ MUÑIZ MD Report #: [id number] Location: MED/SURG Room/Bed: [facility] Procedure: 0425-[address]/CT BRAIN WO Exam Date: 06/04/19 Exam Time: 1435 REPORT STATUS: Signed Examinati on: CT BRAIN WO CONTRAST History: Acute headache. Comparison studies:None Technique: Axial images were obtained from the skull base to the vertex. Coronal and sagittal images reconstructed from the axial data. Dose modulat ion, iterative reconstruction, and/or weight based adjustment of the mA/kV was utilized to reduce the radiation dose to as low as reasonably achievable. Intravenous contrast: None Findings: Scalp: No abnormalities. Bones: No fractures, blastic or lytic lesions. Brain sulci: Appropriate for age. Ventricles: Normal in size and configuration. No hydrocephalus. Extra-axial space: No abnormalities. Parenchyma: No abnormal densities. No m asses, hemorrhage, or acute or chronic cortical based vascular insults.. Se llar/suprasellar region: No abnormalities. Craniocervical junction: Patent for amen magnum. No Chiari one malformation. Incidental findings: None. Impression: No intracranial abnormalities. Signed by: Dr. Jeannette barclay M.D. on 06/04/2019 3:31 PM Dictated By: JEANNETTE Flowers 153 Trans cribed By: DEYANIRA on 06/04/191530 COPY TO: LIZ MUÑIZ MD CHEST SINGLE (PORTABLE)2019-06-04 15:17:00 [place] [address] Patient Name: WESLY HUTCHINSON MR #: [id number] : 1960 Age/Sex: 58/F Req #: [id number] Adm Physician: FIGUEROA CARD MD Ordered by: LIZ MUÑIZ MD Report #: [id number] Location: MED/SURG Room/Bed: [facility] Procedure: 0425-000 6 DX/CHEST SINGLE (PORTABLE) Exam Date: 06/04/19 Jammie quintero Time: 1430 REPORT STATUS: Signed EXAMINATION: CHEST SINGLE (PORTABLE) COMPARISON: Chest x-ray 12/19/19 18 INDICATION: Fever, pain, weakness LOW GRADE FEVER, SOMNOLENCE, LIKEL Y UTI [id number] DISCUSSION: Frontal view of the chest katiana flowers at 1439 hours. HEART AND MEDIASTINUM: The heart is normal in size. The a ortic arch is tortuous but stable LINES: None. LUNGS: The lungs are well inflated and clear. Calcified granuloma in the right lung base is sta ble. No pneumonia or pulmonary edema. PLEURA: No pleural effusion or pneum othorax. Stable mild eventration of the right diaphragm. BONES AND SOFT T ISSUES: Degenerative changes of the right AC joint area No focal osseous lesio n. The soft tissues are normal. IMPRESSION: Stable chest. No acute ca rdiopulmonary disease. Signed by: Dr. Gol Medrano MD on 06/04/2019 3: 19 PM Dictated By: GLO MEDRANO MD 18 Transcribed By: DEYANIRA on 06/04/191518 COPY TO: LIZ MUÑIZ MD Blood yrosiop1689-22-21 12:11:00* Test Item Value Reference Range Interpretation Comments Blood Culture (test code = 49134516) NO GROWTH AFTER 5 DAYS, FINAL REPORT [facility] (PT[facility] in platelet poor plasma by coagulation rapla7552-99-67 11:56:00* Test Item Value Reference Range Interpretation Comments Prothrombin Time (test code = 5902-2) 13.7 [facility]R in Platelet poor plasma by Coagulation ivuvj7669-38-81 11:56:00* Test Item Value Reference Range Interpretation Comments Prothromb Time International Ratio (test code = 6301-6) 0.99 [facility] AllenActivated partial thromboplastin time (aPTT) in platelet poor plasma by coagulation tqldo1492-62-13 11:56:00* Test Item Value Reference Range Interpretation Comments Activated Partial Thromboplast Time (test code = 07788-6) 33.1 [facility] or plasma creatine kinase measurement (enzymatic activity/volume)2019-06-04 11:56:00* Test Item Value Reference Range Interpretation Comments Creatine Kinase (test code = 2157-6) 28 [facility]rum or plasma creatine kinase MB measurement (mass/volume)2019-06-04 11:56:00* Test Item Value Reference Range Interpretation Comments Creatine Kinase MB (test code = 01640-7) 0.40 [facility]Troponin I measurement by highly sensitive enzyme dzkyyctlrwc1981-66-13 11:56:00* Test Item Value Reference Range Interpretation Comments Troponin I (test code = 55281-1) < 0.001 [facility] AllenUrine color awevhtvevusmh2081-92-72 11:55:00* Test Item Value Reference Range Interpretation Comments Urine Color (test code = 5778-6) YELLOW [facility] AllenUrine nintzuk0402-93-70 11:55:00* Test Item Value Reference Range Interpretation Comments Urine Clarity (test code = 27351-8) HAZY [facility] Centerpecific gravity of Urine by Test strip 2019-06-04 11:55:00* Test Item Value Reference Range Interpretation Comments Urine Specific [place] (test code = 5811-5) 1.020 [facility] pH measurement by automated test bzvzm1196-37-18 11:55:00* Test Item Value Reference Range Interpretation Comments Urine pH (test code = 34818-7) 8 [facility] leukocyte esterase detection by sdippofd9769-69-43 11:55:00* Test Item Value Reference Range Interpretation Comments Urine Leukocyte Esterase (test code = 5799-2) LARGE [facility] nitrite nckrmfdav3000-78-61 11:55:00* Test Item Value Reference Range Interpretation Comments Urine Nitrite (test code = 87720-5) NEGATIVE [facility] protein measurement by test strip (mass/volume)2019-06-04 11:55:00* Test Item Value Reference Range Interpretation Comments Urine Protein (test code = 5804-0) >=300 [facility] glucose qzyqanzzd0037-07-38 11:55:00* Test Item Value Reference Range Interpretation Comments Urine Glucose (UA) (test code = 2349-9) NEGATIVE [facility] ketones detection by automated test kjirk0874-77-12 11:55:00* Test Item Value Reference Range Interpretation Comments Urine Ketones (test code = 04880-4) NEGATIVE [facility] urobilinogen measurement by test strip (mass/volume)2019-06-04 11:55:00* Test Item Value Reference Range Interpretation Comments Urine Urobilinogen (test code = 48032-8) 0.2 [facility] total bilirubin measurement (mass/volume)2019-06-04 11:55:00* Test Item Value Reference Range Interpretation Comments Urine Bilirubin (test code = 1978-6) NEGATIVE [facility] AllenU[facility] erythrocytes yprehbdqh5626-82-10 11:55:00* Test Item Value Reference Range Interpretation Comments Urine Blood (test code = 04814-1) 3+ [facility] AllenAutomated urine sediment leukocyte count by microscopy (number/high power field)2019-06-04 11:55:00* Test Item Value Reference Range Interpretation Comments Urine WBC (test code = 5821-4) >50 [facility] AllenErythrocytes detection in urine sediment by light ftxbisukml7889-28-53 11:55:00* Test Item Value Reference Range Interpretation Comments Urine RBC (test code = 05665-0) >50 [facility] AllenBacteria detection in urine sediment by light tkbamdbzio9626-14-17 11:55:00* Test Item Value Reference Range Interpretation Comments Urine Bacteria (test code = 28011-7) MODERATE [facility] AllenEpithelial cells detection in urine sediment by light adcjuywgaz6647-23-38 11:55:00* Test Item Value Reference Range Interpretation Comments Urine Epithelial Cells (test code = 71600-9) FEW [facility] AllenCoarse granular casts detection in urine sediment by light ofwfpekchj9563-29-58 11:55:00* Test Item Value Reference Range Interpretation Comments Urine Coarse Granular Casts (test code = 13977-4) 1-5 [facility] AllenMucus detection in urine sediment by light qbpkjmocwf9829-57-14 11:55:00* Test Item Value Reference Range Interpretation Comments Urine Mucus (test code = 8247-9) MODERATE [facility] ([facility])2019-02-24 19:48:00 [facility] [address] [place] [address] Patient Name: WESLY HUTCHINSON MR #: [id number] : Age/Sex: 58/F Req #: [id number] Adm Physician: Ordered by: ASHA [employer] Report #: [id number] Location: ER Room/Bed: Procedure: 0116-0 074 DX/ABDOMEN-1VIEW (KUB) Exam Date: 02/24/19 Exam Time: 1934 REPORT STATUS: Signed Exam: Abdominal film Clinical History: Pain Comparison: 9. January 14, 2019 DISCUSSION: 2 left-sided ureteral stents stable i n position. Right percutaneous nephrostomy tube stable in position. No nobstructive bowel gas pattern. IMPRESSION: Stable appearance of the l eft ureteral stents and right percutaneous nephrostomy tube Signed by: Dr. Eduar Yost M.D. on 02/24/2019 7:49 PM Dictated By: EDUAR YOST MD, MD 48 Transcri bed By: DEYANIRA on 02/24/191948 COPY TO: ASHA [employer]ACILITY MANAGER Blood platelets count by estimate (number/volume)2019-02-24 16:28:00* Test Item Value Reference Range Interpretation Comments Platelet Estimate (test code = 47842-5) SLIGHTLY DECREASED [facility] AllenPlatelet mbwyjewuqh7245-43-01 16:28:00* Test Item Value Reference Range Interpretation Comments Platelet Morphology Comment (test code = 53510-6) NORMAL [facility] AllenBlood hypochromia detection by light yypcdmgcve0044-57-41 16:28:00* Test Item Value Reference Range Interpretation Comments Hypochromasia (test code = 728-6) MODERATE [facility] AllenBlood poikilocytosis detection by light lyghhqwzus6321-07-95 16:28:00* Test Item Value Reference Range Interpretation Comments Poikilocytosis (test code = 779-9) MODERATE [facility] AllenBlood anisocytosis detection by light kpzvkspcua0513-97-66 16:28:00* Test Item Value Reference Range Interpretation Comments Anisocytosis (test code = 702-1) SLIGHT [facility] CenterRBC gwcysokptq0106-79-44 16:28:00* Test Item Value Reference Range Interpretation Comments Red Cell Morphology Comment (test code = 6742-1) NORMAL [facility] AllenIR COFFADS4588-45-01 15:02:00 [facility] [address] [place] [address] Patient Name: WESLY HUTCHINSON MR #: [id number] : Age/Sex: 58/F Req #: [id number] Adm Physician: FIGUEROA CARD MD Ordered by: JARET ESPINOSA MD Report #: [id number] Location: [facility] Room/Bed: [facility] Procedure: 4951-7803 D X/IR CONSULT Exam Date: Exam Time: REPORT STATUS: Signed PROCEDURE: Genitourinary catheter exchange Procedural Personnel Attending physician(s): Deja Dawson MD Fellow physician(s): None Resident physician(s): None Advanced practi ce provider(s): None Pre-procedure diagnosis: Right ureteral obstruction Post-procedure diagnosis: Same Indication: Routine scheduled exchange Additi onal clinical history: None Complications: No immediate complications. IMPRESSION: Successful routine exchange of right nephrostomy tube for new 10Fr nephrostomy tube. Plan: Routine exchange in 8 weeks. PROCEDURE SUMMARY - Target organ: Unilateral wiyot kidney - Antegrade nephrostogram(s) via the e xisting access - Nephrostomy tube exchange - Additional procedure(s): None PROCEDURE DETAILS: Pre-procedure Consent: Informed consent for the pr ocedure including risks, benefits and alternatives was obtained and time-out w as performed prior to the procedure. Preparation: The site was prepared and dr sanchez using maximal sterile barrier technique including cutaneous antisepsis. Anesthesia/sedation Level of anesthesia/sedation: Moderate sedation (consc ious sedation) 1mg Versed, 50mcg Fentanyl Anesthesia/sedation administered b y: Independent trained observer under attending supervision with continuous mo nitoring of the patient?s level of consciousness and physiologic status Tota l intra-service sedation time (minutes): 30 Right genitourinary catheter ex change Local anesthesia was administered. Initial nephrostogram was performed. A wire was placed through the existing tube and it was removed. The new tube was advanced over the wire and position was confirmed with contrast injection. Pre-existing genitourinary catheter: 10Fr Uresil Genitourinary catheter(s) placed: 10Fr Uresil Findings: Locking loop in renal pelvis. External cathet er securement: Non-absorbable suture Additional genitourinary system inter vention Genitourinary intervention: None Location of intervention: Not appli cable Device used: Not applicable Description of intervention: Not applicabl e Post-intervention findings: Not applicable Contrast Contrast agent: I sovue 300 Contrast volume (mL): 10 Radiation Dose Fluoroscopy time (min utes): 1.0 Reference air kerma (mGy): 8.7 Additional Details Additio nal description of procedure: None Equipment details: None Specimens removed : None Estimated blood loss (mL): Less than 10 Standardized report: Yesenia theterExchange_v3 Attestation Signer name: Deja Dawson MD I attest that I was present for the entire procedure. I reviewed the stored images and agree with the report as written. Signed by: Deja Dawson MD on 019 3:05 PM Dictated By: DEJA DAWSON MD 04 Transcribed By: DEYANIRA on 02/07/191504 COPY TO: JARET ESPINOSA MD NEPHRO/URET W IMG/DEU-YIGACLNH5912-36-30 15:02:00 [place] [address] Patient Name: WESLY HUTCHINSON MR #: [id number] : Age/Sex: 58/F Req #: [id number] Adm Physician: FIGUEROA CARD MD Ordered by: FIGUEROA CARD MD Report #: [id number] Location: [facility] Room/Bed: [facility] Procedure: [id number] I R/NEPHRO/URET W IMG/INJ-EXISTING Exam Date: Exam Ti me: REPORT STATUS: Signed PROCE DURE: Genitourinary catheter exchange Procedural Personnel Attending phys ician(s): Deja Dawson MD Fellow physician(s): None Resident physician(s): No ne Advanced practice provider(s): None Pre-procedure diagnosis: Right ure teral obstruction Post-procedure diagnosis: Same Indication: Routine schedul ed exchange Additional clinical history: None Complications: No immediate complications. IMPRESSION: Successful routine exchange of right nephr ostomy tube for new 10Fr nephrostomy tube. Plan: Routine exchange in 8 weeks. P ROCEDURE SUMMARY - Target organ: Unilateral wiyot kidney - Antegrade nephro stogram(s) via the existing access - Nephrostomy tube exchange - Additional procedure(s): None PROCEDURE DETAILS: Pre-procedure Consent: Informe d consent for the procedure including risks, benefits and alternatives was obt ained and time-out was performed prior to the procedure. Preparation: The site was prepared and draped using maximal sterile barrier technique including cut aneous antisepsis. Anesthesia/sedation Level of anesthesia/sedation: Mode rate sedation (conscious sedation) 1mg Versed, 50mcg Fentanyl Anesthesia/sed ation administered by: Independent trained observer under attending supervisio n with continuous monitoring of the patient?s level of consciousness and physi ologic status Total intra-service sedation time (minutes): 30 Right genit ourinary catheter exchange Local anesthesia was administered. Initial nephrost ogram was performed. A wire was placed through the existing tube and it was re moved. The new tube was advanced over the wire and position was confirmed with contrast injection. Pre-existing genitourinary catheter: 10Fr Uresil Genito urinary catheter(s) placed: 10Fr Uresil Findings: Locking loop in renal pelvi s. External catheter securement: Non-absorbable suture Additional genito urinary system intervention Genitourinary intervention: None Location of int ervention: Not applicable Device used: Not applicable Description of interve ntion: Not applicable Post-intervention findings: Not applicable Contrast Contrast agent: Isovue 300 Contrast volume (mL): 10 Radiation Dose F luoroscopy time (minutes): 1.0 Reference air kerma (mGy): 8.7 Addition al Details Additional description of procedure: None Equipment details: None Specimens removed: None Estimated blood loss (mL): Less than 10 Standardi zed report: [email or web address]_v3 Attestation Signer name: Deja Dawson MD I attest that I was present for the entire procedure. I reviewed the stor ed images and agree with the report as written. Signed by: Nigel Dawson MD on 02/07/2019 3:05 PM Dictated By: DEJA DAWSON MD Electronicall y Signed By: DEJA DAWSON MD on 02/07/19 3871 Transcribed By: DEYANIRA on 02/07/19 7723 COPY TO: FIGUEROA CARD MD ABDOMEN-1VIEW (KU)2019-02-06 08:49:00 [place] [address] Patient Name: WESLY HUTCHINSON MR #: [id number] : 1960 Age/Sex: 58/F Req #: [id number] Adm Physician: Ordered by: LIZ MUÑIZ MD Report #: [id number] Location: ER Room/Bed: Procedure: 1229-001 0 DX/ABDOMEN-1VIEW ([facility]) Exam Date: 02/06/19 Exam Ti me: 0835 REPORT STATUS: Signed Exam: Abdominal film Clinical History: Pain Comparison: January 14, 2019 DISCUSSION: 2 left-sided ureteral stents stable in position. Right percutaneous nephrostomy tube stable in position. Nonobstructive b owel gas pattern. IMPRESSION: Stable appearance of the left ureteral s tents and right percutaneous nephrostomy tube Signed by : Dr. Anders Vargas M.D. on 02/06/2019 8:52 AM Dictated By: ANDERS ROSS MD 1 Transc ribed By: DEYANIRA on 02/06/19851 COPY TO: LIZ MUÑIZ MD Bacterial urine zwqbadg0887-13-68 07:10:00* Test Item Value Reference Range Interpretation Comments Urine Culture (test code = 630-4) PSEUDOMONAS AERUGINOSA [facility]2019-01-14 16:47:00 [place] [address] Patient Name: WESLY HUTCHINSON MR #: [id number] : Age/Sex: 58/F Req #: [id number] Adm Physician: Ordered by: JARET ESPINOSA MD Report #: [id number] Location: OR Room/Bed: Procedure: 2752-1822 D X/ABDOMEN-1VIEW ([facility]) Exam Date: 01/14/19 Exam Time: 1632 REPORT STATUS: Signed Abdo men, one view Clinical indication: Preoperative evaluation, hydronephrosis Comparison: 29/05/2018 and 10/01/2018 Findings: A right percutaneous n ephrostomy catheter is in place. Two parallel left double-J stent are in place . The bowel gas pattern is nonobstructive. No acute osseous abdomen bodies. Impression: Unchanged appearance of right nephrostomy catheter and left ure teral stents. Signed by: Julián Napoles MD on 01/14/2019 4:50 PM D ictated By: JULIÁN NAPOLES MD 1650 COPY TO: JARET PATEL MD Bacterial urine roucktu6134-03-82 23:00:00* Test Item Value Reference Range Interpretation Comments Urine Culture (test code = 630-4) ENTEROCOCCUS FAECIUM [facility]Amorphous sediment detection in urine sediment by light gtfbvxvtpk7642-74-22 11:33:00* Test Item Value Reference Range Interpretation Comments Urine Amorphous Sediment (test code = 8246-1) FEW [facility] AllenYeast detection in urine sediment by light gaejuzswqp8012-83-15 11:33:00* Test Item Value Reference Range Interpretation Comments Urine Yeast (test code = 26298-4) MANY [facility] AllenBacterial urine spgtooh6105-06-74 11:33:00* Test Item Value Reference Range Interpretation Comments Urine Culture (test code = 630-4) ENTEROCOCCUS FAECIUM [facility]NEPH[facility]/URET W IMG/ZVJ-ULDQEIMN1505-55-24 14:16:00 [facility] [address] [place] [address] Patient Name: WESLY HUTCHINSON MR #: [id number] : 1960 Age/Sex: 58/F Req #: [id number] Adm Physician: Ordered by: JARET ESPINOSA MD Report #: [id number] Location: DX Room/Bed: Procedure: [id number] I R/NEPHRO/URET W IMG/INJ-EXISTING Exam Date: Exam Ti me: REPORT STATUS: Signed PROCE DURE: Genitourinary catheter exchange Procedural Personnel Attending phys jamir(s): Deja Dawson MD Fellow physician(s): None Resident physician(s): No ne Advanced practice provider(s): None Pre-procedure diagnosis: Ureteral obstruction Post-procedure diagnosis: Same Indication: Routine scheduled exc hange Additional clinical history: None Complications: Nephrostomy tube w as heavily encrusted and calcified and required advanced maneuvers to remove a nd exchange. IMPRESSION: Successful exchange of right nephrostomy tub e. Nephrostomy tube was heavily encrusted and calcified and required advanced maneuvers to remove and exchange. Plan: Future exchanges should be do ne at no longer than 6-8 week intervals. PROCEDURE SUMMARY - Target organ: Right wiyot kidney - Antegrade nephrostogram(s) via the existing access - Nephrostomy t ube exchange - Additional procedure(s): None PROCEDURE DETAILS: Pre- procedure Consent: Informed consent for the procedure including risks, benefit s and alternatives was obtained and time-out was performed prior to the proced ure. Preparation: The site was prepared and draped using maximal sterile barri er technique including cutaneous antisepsis. Anesthesia/sedation Level of anesthesia/sedation: Minimal sedation 50mcg Fentanyl Anesthesia/sedation ad ministered by: Independent trained observer under attending supervision with c ontinuous monitoring of the patient?s level of consciousness and physiologic s tatus Right genitourinary catheter exchange Local anesthesia was administ ered. Initial nephrostogram was performed. A wire was placed via the existing tube and the tube was very encrusted. Wire could not be passed all the way thr ough the tube and the loop would not unform. A 12Fr peel-away sheath was advan jacob over the nephrostomy tube and the tube was retracted through the sheath an d removed. A Kumpe catheter and guidewire were then advanced through the sheat h and the sheath removed. A new 10Fr nephrostomy tube was advanced over the wi re and position was confirmed with contrast injection. Pre-existing genitour inary catheter: 10Fr Uresil Genitourinary catheter(s) placed: 10Fr Uresil F indings: Loop formed in renal pelvis. External catheter securement: Non-absorb able suture Additional genitourinary system intervention Genitourinary i ntervention: None Location of intervention: Not applicable Device used: Not applicable Description of intervention: Not applicable Post-intervention fin dings: Not applicable Contrast Contrast agent: Isovue 370 Contrast volu me (mL): 10 Radiation Dose Fluoroscopy time (minutes): 13.24 Referenc e air kerma (mGy): 134 Additional Details Additional description of proc edure: None Equipment details: None Specimens removed: None Estimated bloo d loss (mL): Less than 10 Standardized report: [email or web address]_v3 Attestation Signer name: Deja Dawson MD I attest that I was present for the entire procedure. I reviewed the stored images and agree with the report as lizzie andersonen. Signed by: Deja Dawson MD on 12/02/2018 2:21 PM Dict ated By: DEJA DAWSON MD 20 Transcribed By: DEYANIRA on 12/02/181420 COPY TO: JARET ESPINOSA MD ABDOMEN-1VIEW ([facility])2018-10-01 07:49:00 [place] [address] Patient Name: WESLY HUTCHINSON MR #: [id number] : 1960 Age/Sex: 57/F Req #: [id number] [facility] Physician: Ordered by: JARET ESPINOSA MD Report #: [id number] Location: OR Room/Bed: Procedure: [id number] D X/ABDOMEN-1VIEW ([facility]) Exam Date: 10/01/18 Exam Time: 0725 REPORT STATUS: Signed E xam: Abdominal film Clinical History: Urolithiasis, stents Comparison : Abdominal radiograph dated 09/09/2018, CT of the abdomen and pelvis dated 05/29 DISCUSSION: Right percutaneous nephrostomy and dual parallel left internal ureteral stents are again noted. There is unchanged 5 mm calcific density overlying the region of the right ureterovesicular junction. Annetta l gas pattern is nonobstructive. Regional skeletal structures are intact. A calcified gallstone is again identified projecting of the right upper quadra nt. IMPRESSION: Right percutaneous nephrostomy catheter and parallel l eft internal ureteral stents are unchanged in position. Unchanged 5 mm calcifi c density in the expected region of the right ureterovesicular junction. Signed by: Julián Napoles MD on 10/01/2018 7:56 AM Dictated By: JULIÁN NAPOLES MD 5 Tr anscribed By: DEYANIRA on 10/01/18755 COPY TO: JARET ESPINOSA MD Serum or plasma thyrotropin measurement by detection limit <= 0.005 miu/l (units/volume)2018-09-12 05:15:00* Test Item Value Reference Range Interpretation Comments Thyroid Stimulating Hormone (TSH) (test code = 77598-2) 2.374 [facility] 18:34:00 [place] [address] Patient Name: WESLY HUTCHINSON MR #: [id number] : Age/Sex: 57/F Req #: [id number] Adm Physician: Ordered by: ASHA BARDALES F[employer]ACILITY MANAGER Report #: [id number] Location: ER Room/Bed: Procedure: [id number] [id number] DX/ABDOMEN-1VIEW ([facility]) Exam Date: Exam Time: REPORT STATUS: Signed RADIOGRAPH( S) OF THE ABDOMEN AND PELVIS, 2 view(s) HISTORY: Abdominal pain, right kidney drain COMPARISON: CT of the abdomen and pelvis May 29, 2018. Abd ominal pelvic radiographs May 06, 2018. FINDINGS: No specific evidenc e of obstruction or ileus. Unchanged appearance of the right nephrostomy tub e. Unchanged appearance of the 2 left-sided ureteral stents. Unchanged multi ple metallic surgical clips within the pelvis. Presumed Echeverria catheter, the ti p of the catheter is not definitively visualized in the region of the urinary bladder. The bones are partially obscured by stool and overlying bowel gas. Cholelithiasis. IMPRESSION: 1. Nonobstructive bowel gas pattern. 2. Unchanged appearance of the right nephrostomy tube and left ureteral stents. 3. Cholelithiasis. Signed by: Dr. Karlo Wallace D.O., M.M.M. on 09/09/2018 6 :37 PM Dictated By: KARLO WALLACE DO 36 Transcribed By: DEYANIRA on 09/09/181836 COPY TO: ASHA BARDALES NP SPECIAL PROCEDURE IN CATH [id number] 14:18:00 [place] [address] Patient Name: WESLY HUTCHINSON MR #: [id number] : Age/Sex: 57/F Req #: [id number] Adm Physician: Ordered by: JARET ESPINOSA MD Report #: [id number] Location: [facility] Room/Bed: Procedure: [id number] I R/SPECIAL PROCEDURE IN [facility] [facility] Exam Date: Exam Kirk e: REPORT STATUS: Signed PROCED URE: SCAR PERC TUBE/RACHEL CATH/CON/S I COMPARISON: Prior nephrostomy tube change 05/17/2018 Preprocedure diagnosis: right ureteral obstruction, chron ic indwelling nephrostomy Post procedure diagnosis: Right ureteral obstruct ion, chronic indwelling nephrostomy. Sedation/anesthesia: Intravenous f entanyl and Versed. Refer to nursing record. The patient's heart rate and pul se oximetry were continuously monitored by the interventional radiology nurse . Blood pressure was monitored at 5 minute intervals. Additional medica tions: Lidocaine 1% for local anesthesia. Total fluoroscopy time: One pearl te Dose-area product: 267.5 cGycm2 Contrast used: 10 cc Isovue-300 Es timated blood loss: Minimal Blood products administered: None Specimens: 10 Jordanian percutaneous nephrostomy catheter, discarded Implants/grafts: 10 Jordanian percutaneous nephrostomy catheter Condition at completion: Stable Dispo sition: Catheter lab holding area for recovery Complications: No immediate Procedure in detail: Informed consent was obtained and documented in the mt dical record after discussion of risks and benefits. The patient was pl aced in the prone position on the angiographic table. The right flank and exi sting percutaneous nephrostomy catheter were prepped and draped in standard s terile fashion. 1% lidocaine was infiltrated into the skin and subcutaneous t issues along the existing catheter for local anesthesia. Injection of d ilute contrast material through the catheter confirmed appropriate position w ithin the collecting system. The catheter was severed and a 0.035 inch stiff Glidewire was advanced through the catheter and coiled within the renal pelvi s. The catheter was then exchanged [id number] for a new 10 Jordanian locking loop percutaneous nephrostomy catheter. The wire was removed and the locking loop was formed in the renal pelvis. Appropriate positioning was confirmed by injection of dilute contrast material. The catheter was then flushed with sterile saline, secured to the skin with monofilament nylon suture, and conn ected to gravity drainage. A sterile dressing was applied. The patient tolera skip the procedure well without immediate complication. CONCLUSION: Successful exchange of a 10 Jordanian locking loop right percutaneous n ephrostomy catheter under fluoroscopic guidance. The patient should return to interventional radiology for routine catheter exchange in 3 months if the catheter is still needed at that time. Dictated by: Osiel Sullivan M.D. on 08/16/2018 at 14:18 Electronically approved by: Osiel Sullivan M.D. on 2018 at 14:18 Dictated By: OSIEL SULLIVAN MD Electronically Bea d By: OSIEL SULLIVAN MD on 08/16/18 1418 Transcribed By: SUSHANT on 08/16/18 1418 COPY TO: JARET ESPNIOSA MD CT ABDOMEN/PELVIS [id number] 17:33:00 [place] [address] Patient Name: WESLY HUTCHINSON MR #: [id number] : 1960 Age/Sex: 57/F Req #: [id number] [facility] Physician: Ordered by: LIZ MUÑIZ MD Report #: [id number] Location: ER Room/Bed: Procedure: [id number] CT/CT ABDOMEN/PELVIS WO Exam Date: 05/29/18 Exam Time: REPORT STATUS: Signed EXAM: C T Abdomen and Pelvis WITHOUT contrast INDICATION: CT CYSTOGRAM 2 [id number] 1626 Y COMPARISON: Nephrostomy tube x-ray 05/07/2018 FADI HNIQUE: Abdomen and pelvis were scanned utilizing a multidetector helical scan ner from the lung base to the pubic symphysis without administration of IV con trast. Absence of intravenous contrast decreases sensitivity for detection of focal lesions and vascular pathology. Coronal and sagittal reformations were o btained. Routine protocol was performed. Contrast injected through Echeverria time s 2. IV CONTRAST: None. ORAL CONTRAST: Water RADIATION DOSE: Total DLP: 889.2 mGy*cm Estimated effective dose: (DLP x 0.015 x size factor) mSv COMPLICATIONS: None F INDINGS: LINES and TUBES: Right percutaneous nephrostomy tube. Left interna l ureteral stent with proximal aspect in the left renal pelvis and distal sten t within the urinary bladder. LOWER THORAX: Unremarkable HEPATOBILI PARESH: No focal hepatic lesions. No biliary ductal dilation. GALLBLADDE R: Cholelithiasis. SPLEEN: No splenomegaly. PANCREAS: No focal jennifer s or ductal dilatation. ADRENALS: No adrenal nodules KIDNEYS/URE TERS: Stable position of the right buttock without intravenous nephrostomy tu be with decompressed right kidney. No new calcified stones in the right kidney . The right ureter is decompressed without calcified stones. Moderate left hyd roureteronephrosis has not improved despite with stent placement. Persistent 3 mm calcified stone in the inferior pole of the left kidney. No visualized new when stones along the left ureter on limited evaluation or remaining left kid bala. Mild left perinephric fat stranding without fluid collections. GI TR ACT: No abnormal distention, wall thickening, or evidence of bowel obstruction . Appendix is normal. PELVIC ORGANS/BLADDER: The urinary bladder is d ecompressed with [address] No calcified stones in the urinary bladder. Hysterectomy. LYMPH NODES: No lymphadenopathy. VESSELS: Unrem arkable. PERITONEUM / RETROPERITONEUM: No free air or fluid. BONES: Un remarkable. SOFT TISSUES: Unremarkable. IMPRESSION: 1. Unchanged right nephrostomy tube with decompressed right kidney. No calcified stones in the right kidney or right ureter. 2. Persistent moderate left h ydroureteronephrosis despite ureteral stent in adequate position. Unchanged le ft nephrolithiasis. Recommend revision of the left ureteral stent. 3. Vargas boptimal cystogram with only a small amount of contrast in the urinary bladder , which persist decompressed with Echeverria catheter in place. Signed by: Dr. Dianne Marshall M.D. on 05/29/2018 5:43 PM Dictated By: MARISELA MARSHALL MD 42 COPY TO: LIZ MUÑIZ MD SPECIAL PROCEDURE IN CATH [id number] 12:30:00 [place] [address] Patient Name: EWSLY HUTCHINSON MR #: [id number] : 1960 Age/Sex: 57/F Req #: [id number] Adm Physician: FIGUEROA CARD MD Ordered by: JARET ESPINOSA MD Report #: [id number] Location: MED/SURG3 Room/Bed: [facility] Procedure: [id number] IR/ARPAN BEVERLY PROCEDURE IN [facility] [employer] Exam Date: Exam Time: REPORT STATUS: Signed Procedure: Ri ght nephrostomy catheter exchange with fluoroscopic guidance Comparison: Ri ght nephrostomy exchange 12/15/2017. Visiting Teacher: Mode Donald MD Sedation /Medications: Conscious sedation. IV Fentanyl and Versed per nursing administr ation records. The patient's vital signs, including pulse oximetry, were cont inuously monitored by the interventional radiology nurse. Fluoroscopy time: 0.6 minutes. Dose area product: 77.1 cGycm2 Blood loss: 0 cc Specimens: 8 Fr right nephrostomy catheter Implants: 10 Fr right nephrostomy catheter Technique/Findings: Informed consent for the procedure was obtained from the patient after discussion of risks and benefits. The right back was prepped and draped in the usual fashion. 1% lidocaine was administered into the skin and subcutaneous tissues of the right back for local anesthesia. Con trast was injected demonstrating catheter was in place with mild hydronephrosi s. Some encrustation patient was noted at the tip of the existing catheter. Vargas bsequently, a stiff Glidewire was advanced through the catheter and the cathet er was exchanged for a new 10 Jordanian nephrostomy catheter. Contrast injection confirmed satisfactory positioning. Catheter was secured with suture and overl berlin sterile dressing. There were no immediate complications. Impression: Fluoroscopic guided right nephrostomy catheter exchange as above. Signed b y: Dr. Mode Donald MD on 05/17/2018 12:34 PM Dictated By: MODE DONALD MD ectronically Signed By: MODE DONALD MD on 05/17/18 1234 Transcribed By: DEYANIRA on 05/17/18 1234 COPY TO: JARET ESPINOSA MD IR [id number] 12:30:00 [place] [address] Patient Name: WESLY HUTCHINSON MR #: [id number] : 1960 Age/Sex: 57/F Req #: [id number] Adm Physician: FIGUEROA CARD MD Ordered by: JARET ESPINOSA MD Report #: [id number] Location: MED/SURG3 Room/Bed: [facility] Procedure: [id number] DX/IR CO NSULT Exam Date: Exam Time: REPORT STATUS: Signed Procedure: Right nephrostomy cat heter exchange with fluoroscopic guidance Comparison: Right nephrostomy exc hange 12/15/2017. Visiting Teacher: Mode Donald MD Sedation/Medications: Consc ious sedation. IV Fentanyl and Versed per nursing administration records. The patient's vital signs, including pulse oximetry, were continuously monitored by the interventional radiology nurse. Fluoroscopy time: 0.6 minutes. Dos e area product: 77.1 cGycm2 Blood loss: 0 cc Specimens: 8 Fr right nephro stomy catheter Implants: 10 Fr right nephrostomy catheter Technique/Findi ngs: Informed consent for the procedure was obtained from the patient after discussion of risks and benefits. The right back was prepped and draped in the usual fashion. 1% lidocaine was administered into the skin and subcutaneous tissues of the right back for local anesthesia. Contrast was injected demonstrating catheter was in place with mild hydronephrosis. Some encrustatio n patient was noted at the tip of the existing catheter. Subsequently, a stiff Glidewire was advanced through the catheter and the catheter was exchanged for a new 10 Jordanian nephrostomy catheter. Contrast injection confirmed satisfact ory positioning. Catheter was secured with suture and overlying sterile dressi ng. There were no immediate complications. Impression: Fluoroscopic guide d right nephrostomy catheter exchange as above. Signed by: Dr. Mode Donald MD on 05/17/2018 12:34 PM Dictated By: MODE DONALD MD 1234 Transcribed By: DEYANIRA on 05/17/18 1233 COPY TO: JARET ESPINOSA MD ABDOMEN-1VIEW ([facility])2018-05-06 12:55:00 [facility] [address] [place] [address] Patient Name: WESLY HUTCHINSON MR #: [id number] : 1960 Age/Sex: 57/F Req #: [id number] Adm Physician: Ordered by: LUZ MARINA BONDS MD Report #: [id number] Location: ER Room/Bed: Procedure: [id number] DX/ ABDOMEN-1VIEW ([facility]) Exam Date: 05/06/18 Exam Time: REPORT STATUS: Signed Exa m: FITO. Clinical History: Nephrostomy placement. Comparison: 03/25/[address] scan 03/10/2018. Findings: Right percutaneous nephrostomy and parallel left internal ureteral stents are again noted. Pelvic surgical clips are unch anged. No calcifications project over the renal shadows or expected ureteral c ourses. Calcification in the dependent portion of the dilated left collecting system seen on the comparison CT is not appreciated by plain radiography. Bowel gas pattern is nonobstructive. Regional skeletal structures are intact. Calcified gallstone projects over the right upper quadrant. IMPRESSION: Right percutaneous nephrostomy catheter and parallel left internal ureteral stents are again seen. Left renal calculus seen on the comparison CT is not i dentified by plain radiography. Signed by: Dr. Eduar Yost M.D. on 05/07/19 12:58 PM Dictated By: EDUAR YOST MD, MD 1251 Transcribed By: DEYANIRA on 05/06/18 1258 COPY TO: LUZ MARINA BONDS MD ABDOMEN-1VIEW ([facility])2018-03-25 14:44:00 [facility] [address] [place], [place] [address] Patient Name: WESLY HUTCHINSON MR #: [id number] : Age/Sex: 57/F Req #: [id number] Adm Physician: Ordered by: JARET ESPINOSA MD Report #: [id number] Location: OR Room/Bed: Procedure: [id number] D X/ABDOMEN-1VIEW ([facility]) Exam Date: 03/25/18 Exam Time: 1315 REPORT STATUS: Signed E xam: Abdominal film Clinical History: Nephrolithiasis Comparison: CT abdomen and pelvis 03/10/2018 DISCUSSION: Right percutaneous nephrostomy and parallel left internal ureteral stents are again noted. Positions are unchang ed relative to formula checker tomogram from comparison CT. Pelvic surgical clips are un changed. No calcifications project over the renal shadows or expected ureteral courses. Calcification in the dependent portion of the dilated left collecting system seen on the comparison CT is not appreciated by plain radiography. Bowel gas pattern is nonobstructive. Regional skeletal structures are intact. Calcified gallstone projects over the right upper quadrant. IMPRESSION: Right percutaneous nephrostomy catheter and parallel left internal ureteral stents are unchanged in position. Left renal calculus seen on the comparison CT is not identified by plain radiography. Signed by: Dr. Osiel Sullivan M.D. on 03/25/2018 2:47 PM Dictated By: OSIEL SULLIVAN MD Electro nically Signed By: OSIEL SULLIVAN MD on 03/25/18 1447 Transcribed By: DEYANIRA on 03/25/18 1447 COPY TO: JARET ESPINOSA MD CT ABDOMEN/PELVIS WO 2018-03-10 13:57:00 [facility] [address] [place] [address] Patient Name: WESLY HUTCHINSON MR #: [id number] : 1960 Age/Sex: 57/F [id number] Req #: [id number] Adm Physician: Ordered by: LUZ MARINA BONDS MD Report #: [id number] Location: ER Room/Bed: Procedure: [id number]/CT ABDOMEN/PELVIS WO Exam Date: 03/10/18 Exam Time: 1320 REPORT STATUS: Signed EXAMINATION: CT of the abdomen and pelvis without contrast. TECHNIQUE: S piral CT images of the abdomen and pelvis were performed from the lung bases t o the lesser trochanters. No intravenous contrast was given per renal stone p rotocol. Coronal and sagittal reformatted images were obtained. COMPARISON : None. CLINICAL HISTORY:Nephrostomy tubes, catheters obstruction DISCUSSION: ABSENCE OF INTRAVENOUS CONTRAST DECREASES SENSITIVITY FOR DETECTION OF FOCAL LESIONS AND VASCULAR PATHOLOGY. ABDOMEN/PELVIS: LOWER THO RAX: Unremarkable. HEPATOBILIARY:No focal hepatic lesions. Calcified galls tone. SPLEEN: No splenomegaly. PANCREAS: No focal masses or ductal dil atation. ADRENALS: No adrenal nodules. KIDNEYS/URETERS: Right percutan eous nephrostomy tube. No obstruction. 2 left ureteral stents extending fr om the renal pelvis to the bladder. Left hydronephrosis. In the inferior pole 3 small calculi measuring up to 3 mm. PELVIC ORGANS/BLADDER: Echeverria catheter . Bladder is decompressed. Hysterectomy. PERITONEUM/RETROPERITONEUM: No gracie e air or fluid. LYMPH NODES: No intra-abdominal,retroperitoneal, pelvic or inguinal lymphadenopathy. VESSELS: Vascular calcifications. GI TRACT : No distention or wall thickening. BONES AND SOFT TISSUES: No bony destruc tive lesions. No soft tissue abnormalities. IMPRESSION: Left hyd ronephrosis despite 2 left renal stents present. Small nonobstructing left inferior pole renal calculi measuring up to 3 mm Right percutaneous nephros milo tube. No obstruction. Echeverria catheter within the decompressed bladder. Cholelithiasis. Signed by: Dr. Anders Vargas M.D. on 03/10/2018 2:10 PM Dictated By: ANDERS VARGAS MD 141 Transcribed By: DEYANIRA on 03/10/18 141 COPY TO: LUZ MARINA BONDS MD CHEST SINGLE (NOT PORTABLE)2017-12-18 18:00:00 [place] [address] Patient Name: WESLY HUTCHINSON MR #: [id number] : Age/Sex: 57/F Req #: [id number] Adm Physician: Ordered by: LIZ MUÑIZ MD Report #: [id number] Location: ER Room/Bed: Procedure: [id number] DX/CHEST SINGLE (NOT PORTABLE) Exam Date: 12/18/17 Exam Time: 1750 REPORT STATUS: Sig jie EXAM: CHEST SINGLE (NOT PORTABLE), AP 1 view INDICATION: PIC line leaki ng COMPARISON: None FINDINGS: LINES/TUBES: There is a left midline cath eter with tip projected over the axilla. LUNGS: No consolidations or chris a. PLEURA: No effusions or pneumothorax. HEART AND MEDIASTINUM: Emily l size and contour. BONES AND SOFT TISSUES: No acute findings. IMPRES MIMI: There is a left midline catheter with tip projected over the axilla. N o priors are available to determine original location. Signed by: Dr. Wesly Campos M.D. on 12/18/2017 6:03 PM Dictated By: WESLY CAMPOS MD 02 Transcribed By: DEYANIRA on 12/18/171802 COPY TO: LIZ MUÑIZ MD NEPHROSTOMY CATHETER [id number] 07:05:00 [place] [address] Patient Name: WESLY HUTCHINSON MR #: [id number] : 1960 Age/Sex: 57/F Req #: [id number] Adm Physician: VINNY RENDON MD Ordered by: JARET ESPINOSA MD Report #: [id number] Location: [facility] Room/Bed: [facility] Procedure: [id number] DX/NEPHROSTOMY CATHETER EXCHANGE Exam Date: Exam Ti me: REPORT STATUS: Signed Proce dure: Right nephrostomy catheter exchange Medications: Versed 2 mg intraven ous, Fentanyl 100 mcg intravenous. The patient's vital signs, including pulse oximetry, were continuously monitored by the interventional radiology nurse. Fluoroscopy time: 1.9 minutes. Dose area product: 1.76 cGycm2 Pro cedure in detail: Informed consent for the procedure was obtained from the patient after discussion of risks and benefits. The right back was prepped and draped in the usual fashion. 1% lidocaine was administered into the skin and subcutaneous tissues of the right back for local anesthesia. Contrast was injected showing proximal ureteral obstruction. A 0.035 " Amplatz superst iff wire was placed through the catheter. A new 10 Jordanian all-purpose drainage catheter was then placed into the renal pelvis. Contrast injection confirms a ppropriate position. Catheter was secured to the skin with a sterile dressing . Impression: Successful right percutaneous nephrostomy catheter excha nge. Signed by: Dr. Brendon Chappell DO on 12/18/2017 7:11 AM Dictated By: BRENDON CHAPPELL DO 071 1 Transcribed By: DEYANIRA on 12/18/17 0711 COPY TO: JARET ESPINOSA MD CT ABDOMEN/PELVIS [id number] 12:56:00 [place] [address] Patient Name: WESLY HUTCHINSON MR #: [id number] : 1960 Age/Sex: 57/F Req #: [id number] Adm Physician: Ordered by: SAMEER LOBO MD Report #: [id number] Location: ER Room/Bed: Procedure: [id number] [id number] CT/CT ABDOMEN/PELVIS WO Exam Date: 12/10/17 Ex am Time: 1230 REPORT STATUS: Signed EXAM: CT Abdomen and Pelvis WITHOUT contrast INDICATION: Left flank pain. Previous kidney stone with stent. COMPARISON: 11/30/2017 TECHNIQUE: Abdomen and pelvis were scanned utilizing a multidetector helical scanner from the l camilo base to the pubic symphysis without administration of IV contrast. Absence of intravenous contrast decreases sensitivity for detection of focal lesions and vascular pathology. Coronal and sagittal reformations were obtained. Routi ne protocol was performed. IV CONTRAST: None. ORAL CONTRAST: Water RADIATION DOSE: Total DLP: 797.04 mGy*cm Estimated effective dose: (DLP x 0.015 x size factor) mSv CO MPLICATIONS: None FINDINGS: LINES and TUBES: Right nephrostomy tube wi th distal tip coiled within the right renal pelvis. Left double-J ureteral tyshawn nt in adequate position. Catheter within the bladder. LOWER THORAX: Calc ified granuloma in the posterior right lung base. HEPATOBILIARY: No focal hepatic lesions. No biliary ductal dilation. GALLBLADDER: Peripherally ca lcified gallstone in the lumen of the gallbladder. No wall thickening. SP [place]: No splenomegaly. PANCREAS: No focal masses or ductal dilatation. ADRENALS: No adrenal nodules. KIDNEYS/URETERS: 7.0 mm stone within the lower pole of the left kidney. This appears to be fragmented when compared wit h the prior exam. Minimal right hydronephrosis improved since the prior exam. Mild left hydronephrosis improved when compared with the prior exam. Unc hanged left perinephric stranding may reflect pyelonephritis. Unchanged left p eriureteral fat stranding. GI TRACT: No abnormal distention, wall thickenin g, or evidence of bowel obstruction. PELVIC ORGANS/BLADDER: Radiati on seeds again observed in the uterine cervix. Urinary bladder is decompressed by a Echeverria catheter. LYMPH NODES: No lymphadenopathy. VESSELS: Unrema rkable. PERITONEUM / RETROPERITONEUM: No free air or fluid. BONES: The re are degenerative changes in the lumbar spine. SOFT TISSUES: Unremarkable . IMPRESSION: 1. Unchanged left perinephric stranding may reflect pyelonephritis. Minimal left hydroureteronephrosis is improved when compared w ith the prior exam. The previously seen 9.0 mm stone in the lower pole of the left kidney appears to be fragmented and slightly smaller. 2. Minimal right hydroureteronephrosis improved when compared with the prior exam. Signed by: Lionel Yost M.D. on 12/10/2017 1:09 PM Dictated By: EDUAR Flowers 1300 Transcribed B y: DEYANIRA on 12/10/17 1304 COPY TO: SAMEER LOBO MD CT ABDOMEN/PELVIS [id number] 18:26:00 [place] [address] Patient Name: WESLY HUTCHINSON MR #: [id number] : 1960 Age/Sex: 57/F Req #: [id number] Adm Physician: Ordered by: PAIGE GIBSON NP Report #: [id number] Location: ER Room/Bed: Procedure: [id number] -0022 CT/CT ABDOMEN/PELVIS WO Exam Date: Exam Time: REPORT STATUS: Signed EXAM: CT Abdomen and Pelvis WITHOUT contrast INDICATION: Left-sided abdominal pain. Kidney stones? Cervical cancer. COMPARISON: . TECHNIQUE: Abdomen and pe lvis were scanned utilizing a multidetector helical scanner from the lung base to the pubic symphysis without administration of IV contrast. Absence of intr avenous contrast decreases sensitivity for detection of focal lesions and vasc ular pathology. Coronal and sagittal reformations were obtained. Routine filipe col was performed. IV CONTRAST: None. ORAL CONTRAST : Water RADIATION DOSE: Total DLP: 567.26 mGy*cm Es timated effective dose: (DLP x 0.015 x size factor) mSv COMPLICATI ONS: None FINDINGS: LINES and TUBES: Right nephrostomy tube with dista l tip coiled within the right renal pelvis. Interval placement of a left doubl e-J ureteral stent in adequate position. Pole catheter within the bladder. LOWER THORAX: Costophrenic granuloma in the posterior right lung base. H EPATOBILIARY: No focal hepatic lesions. No biliary ductal dilation. GALL BLADDER: No stomach and observed. No wall thickening. SPLEEN: No splenomega ly. PANCREAS: No focal masses or ductal dilatation. ADRENALS: No ad renal nodules. KIDNEYS/URETERS: 9 mm top within the lower pole of the left kidney. Mild right hydronephrosis new since the prior examinations the presen ce of a nephrostomy tube. Mild to moderate left hydronephrosis appears unchang ed. New left perinephric stranding may reflect pyelonephritis. Left periureter al fat stranding. GI TRACT: No abnormal distention, wall thickening, or e vidence of bowel obstruction. Appendix is normal. PELVIC ORGANS/BLADDER : Radiation seeds again observed in the uterine cervix. Urinary bladder is dec ompressed by a Echeverria catheter. LYMPH NODES: No lymphadenopathy. VESSEL S: Unremarkable. PERITONEUM / RETROPERITONEUM: No free air or fluid. B ONES: There are degenerative changes in the lumbar spine. SOFT TISSUES: Unr emarkable. IMPRESSION: 1. New left perinephric stranding may refle ct pyelonephritis. Mild to moderate left hydroureteronephrosis is stable. 2 . Interval development of right hydroureteronephrosis in spite of presence of a nephrostomy tube. Please correlate with nephrostomy output. Signed by: Dr Ana Victoria M.D. on 11/30/2017 6:39 PM Dictated By: JAYCOB LEON MD, MD 38 Tr anscribed By: DEYANIRA on 11/30/171838 COPY TO: PAIGE GIBSON NP RENAL SCAN W/FLOW [id number] 19:56:00 [place] [address] Patient Name: WESLY HUTCHINSON MR #: [id number] : 1960 Age/Sex: 57/F Req #: [id number] Adm Physician: Ordered by: JARET ESPINOSA MD Report #: [id number] Location: OR Room/Bed: Procedure: [id number] NM/RENAL SCAN W/FLOW FUNCTION Ex am Date: 11/05/17 Exam Time: 1510 REPORT STATUS : Signed Renal Scan Reason for exam: 57 F with vesicoureteral reflux . Radiopharmaceutical: Tc-99m MAG3 11 mCi Report: After administratio n of the radiopharmaceutical, dynamic images of the kidneys were obtained thro [facility] 40 minutes. LEFT KIDNEY: Perfusion is prompt. The left kidney has a reniform shape with irregular contours and mild thinning of the renal cortex, more apparent in the upper pole. Extraction of tracer from the blood pool is mildly decreased. Clearance of tracer from the renal parenchyma is prompt. The pelvicaliceal system is very mildly dilated. Some increase in pooling of tra cer is seen within the pelvicaliceal system. Drainage of tracer from the pelvi caliceal system is adequate. No stasis of tracer is seen in the left ureter. RIGHT KIDNEY: A PERCUTANEOUS NEPHROSTOMY CATHETER IN THE RIGHT KIDNEY IS OP EN DURING THE STUDY. Perfusion to the right kidney is prompt. The kidney has a distorted reniform shape with moderate thinning of the renal cortex and ir regular contours. The kidney is smaller than the left kidney. Extraction of t racer from the blood pool is mildly decreased. Clearance of tracer from the re nal parenchyma is prompt. The pelvicaliceal system does not appear dilated alt andrei calices in the upper pole are slightly prominent. Tracer drains freely in the PCN catheter so the renal pelvis is not adequately evaluated. There is no significant increase in pooling of tracer within the pelvicaliceal system. Drainage of tracer from the pelvicaliceal study cannot be assessed because of the open PCN tube. No tracer is seen in the right ureter. DIFFERENTIAL TERRANCE AL FUNCTION: Left kidney 62% and right kidney 38% (normal 43-57%. Impress ion: 1. The left kidney shows evidence of mild medical renal disease and some scarring. Mild hydronephrosis is present. Obstruction is not suspected. 2. The right kidney shows evidence of mild medical renal disease. The ki dney shows significant scarring and this accounts for the decreased differenti al function of 38%. Hydronephrosis cannot be assessed because an open PCN is draining the pelvicaliceal system throughout the study. Signed by: Dr. Luzmaria Tay M.D. on 11/05/2017 8:12 PM Dictated By: LUZMARIA TAY MD 11 Transcribed By: DEYANIRA on 11/05/172011 COPY TO: JARET ESPINOSA MD IR CONSULT 2017-09-22 07:24:00 [facility] [address] [place] [address] Patient Name: WESLY HUTCHINSON MR #: [id number] : 1960 Age/Sex: 56/F Req #: [id number] Adm Physician: VIKY MONTOYA MD Ordered by: JARET ESPINOSA MD Report #: [id number] Location: MED/SURG3 Room/Bed: [facility] Procedure: DX/IR CONSULT Exam Date: Exam Time: REPORT STATUS: Signed Nephrostomy catheter evaluation and fluoroscopic exchange Pre-Pr ocedure Diagnosis: Cervical cancer status post radiation therapy with right ur eteral stenosis. Post-procedure Diagnosis:Cervical cancer status post radiatio n therapy with right ureteral stenosis Visiting Teacher: Mode Donald MD Assista nt: None Sedation: Local 5 cc of 1% subcutaneous lidocaine Radiation Dose :235 cGycm2 (Dose Area Product) Fluoroscopy time 1.1 minutes Estimate b lood loss: None Blood administered: None Complications: No immediate compli cations Implants/Grafts: 10 Fr UreSil Specimen: None Procedure: Info rmed consent was obtained and the patient positioned prone in the fluoroscopy suite. A timeout was performed. The indwelling right nephrostomy was prepped a nd draped in standard fashion. Diagnostic antegrade nephrostogram was perfo ed nephrostomy. See findings below. An Amplatz wire was placed to secur e access. The existing catheter was removed demonstrating cloudy fluid and enc rustation. A new 10 Fr nephrostomy catheter was coiled in the renal pelvis wit h fluoroscopic contrast injection confirming position. At the end of the procedure the catheter was connected to gravity drainage and a sterile dressi ng applied. The patient tolerated the procedure well and without immediate com plication. Findings: Antegrade nephrostogram: Patent catheter. No hydrone phrosis. Diffuse right ureteral stenosis with distal occlusion, as before. Th e catheter was encrusted with debris with cloudy urine. Impression: Ri ght nephrostomy catheter exchange with fluoroscopic guidance as above. Loi mmendations: Routine catheter exchange in 8-10 weeks. Signed by: Dr. 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 Post-procedure Diagnosis:Cervical cancer s tatus post radiation therapy with right ureteral stenosis Visiting Teacher: Kimber Donald MD Hi Ranger Operator: None Sedation: Local 5 cc of 1% subcutaneous lidocaine Radiation Dose:235 cGycm2 (Dose Area Product) Fluoroscopy time 1.1 pearl irena Estimate blood loss: None Blood administered: None Complications: No immediate complications Implants/Grafts: 10 Fr UreSil Specimen: None Procedure: Informed consent was obtained and the patient positioned prone in the fluoroscopy suite. A timeout was performed. The indwelling right nephrost lisa was prepped and draped in standard fashion. Diagnostic antegrade neph rostogram was performed nephrostomy. See findings below. An Amplatz wire was placed to secure access. The existing catheter was removed demonstrating c loudy fluid and encrustation. A new 10 Fr nephrostomy catheter was coiled in t he renal pelvis with fluoroscopic contrast injection confirming position. At the end of the procedure the catheter was connected to gravity drainage and a sterile dressing applied. The patient tolerated the procedure well and wi thout immediate complication. Findings: Antegrade nephrostogram: Patent c atheter. No hydronephrosis. Diffuse right ureteral stenosis with distal occlu mimi, as before. The catheter was encrusted with debris with cloudy urine. Impression: Right nephrostomy catheter exchange with fluoroscopic guidance as above. Recommendations: Routine catheter exchange in 8-10 weeks. Signed by: Dr. Mode Donald MD on 09/22/2017 7:29 AM Dictated By: MODE KEVIN MD 1326 Transcribed By: DEYANIRA on 09/28/17 1326 COPY TO: JARET ESPINOSA MD CHEST XRAY LINE [id number] 11:46:00 [place] [address] Patient Name: WESLY HUTCHINSON MR #: [id number] : 1960 Age/Sex: 56/F Req #: [id number] Adm Physician: VIKY MONTOYA MD Ordered by: JARET ESPINOSA MD Report #: [id number] Location: MED/SURG3 Room/Bed: [facility] Procedure: [id number] DX/TRACY ST XRAY LINE PLACEMENT Exam Date: Exam Time: REPORT STATUS: Signed PROCEDURE: A single AP view of the chest. COMP ARISON: None. INDICATIONS: PICC LINE PLACEMENT FINDINGS: Shireen es/tubes: Right sided PICC terminating in the expected location of the SVC. Lungs: Low lung volumes. There is no evidence of pneumonia or pulmonary edema. Mild patchy bibasilar atelectasis. Pleura: There is no pleural effusion or pneumothorax. Heart and mediastinum: The cardiomediastinal si lhouette is unremarkable. Bones: No acute bony abnormality. IMPR ESSION: Right sided PICC terminating in the expected location of the SVC. No evidence of pneumothorax. Dictated by: MODE DONALD M.D. on 018 at 11:46 Electronically approved by: MODE DONALD M.D. on 09/21/2017 a t 11:46 Dictated By: MODE DONALD MD 1146 Transcribed By: SUSHANT on 09/21/17 1146 COPY T O: JARET ESPINOSA MD [facility]2017-09-18 07:34:00 [place] [address] Patient Name: WESLY HUTCHINSON MR #: [id number] : 1960 Age/Sex: 56/F Req #: [id number] [facility] Physician: VIKY REAGAN MD Ordered by: JARET ESPINOSA MD Report #: [id number] Location: [facility] Room/Bed: [place] [address] Procedure: [id number] DX/ABD OMEN-1VIEW (KUB) Exam Date: 09/18/17 Exam Time: 709 REPORT STATUS: Signed PROCEDURE: X-RAY ABDOMEN - KUB COMPARISO N: CT Abdomen/Pelvis 04/12/17. INDICATIONS: PREOPERATIVE XRAY FOR ESWL FINDINGS: Right sided PCN is present. A 5 mm and 2 mm calcification p rojects over the left kidney. No calcifications over the expected location of the ureters. Surgical clips in the pelvis. There is a non-obstructed bowel-gas pattern. There are no acute osseous abnormalities. CONCLUSIO N: Right sided PCN in similar position. Left sided renal stones jimenez uring up to 5 mm, better characterized on CT from 04/12/17. No evidence of ston es overlying the ureters. Dictated by: MODE DONALD M.D. on 09/18/2017 at 7 :34 Electronically approved by: MODE DONALD M.D. on 09/18/2017 at 7:34 Dictated By: MODE DONALD MD Transcribed By: SUSHANT on 09/18/17733 COPY TO: JARET PATEL MD CT ABDOMEN/PELVIS [id number] 19:09:00 [place] [address] Patient Name: WESLY HUTCHINSON MR #: [id number] : 1960 Age/Sex: 56/F Req #: [id number] Adm Physician: Ordered by: ANNETTE BREWER FARM FACILITY MANAGER Report #: [id number] Location: ER Room/Bed: Procedure: [id number] CT/CT ABDOMEN/PELVIS WO Exam Date: 09/17/17 Exam Time: 1830 REPORT STATUS: Signed EXAM: CT Abdomen and Pelvis WITHOUT contrast INDICATION: UTI. Feve r. COMPARISON: CT abdomen and pelvis 04/12/2017. TECHNIQUE: Abdomen and pelvis were scanned utilizing a multidetector helical scanner from the lung base to the pubic symphysis without administration of IV contrast. Absence of intraven ous contrast decreases sensitivity for detection of focal lesions and vascular pathology. Coronal and sagittal reformations were obtained. Renal stone filipe col was performed. IV CONTRAST: None. ORAL CONTRAST : Water RADIATION DOSE: Total DLP: 560.77 mGy*cm Es timated effective dose: (DLP x 0.015 x size factor) mSv COMPLICATI ONS: None FINDINGS: LINES and TUBES: Right percutaneous nephrostomy tu be, unchanged position. LOWER THORAX: 2 mm right lower lobe calcified gran uloma, unchanged. HEPATOBILIARY: Mild diffuse low-attenuation of the hepati c parenchyma suggesting mild steatosis. No focal hepatic lesions. No biliary ductal dilation. GALLBLADDER: Calcified gallstone. No wall thickening. SPLEEN: No splenomegaly. PANCREAS: No focal masses or ductal dilatati on. ADRENALS: No adrenal nodules KIDNEYS/URETERS: Interval devel opment of mild to moderate left-sided hydronephrosis. Mild to moderate left ur eteral dilatation all the way to the level just proximal to the UVJ. 2 calculi were previously present in the lower pole of the left kidney; the smallest one is no longer visualized, possibly passed. 5.8 x 5.8 mm calculus in the lower pole of the left kidney appears slightly bulkier, previously measuring 4 mm. GI TRACT: No abnormal distention, wall thickening, or evidence of bowel o bstruction. Appendix is normal. REPRODUCTIVE ORGANS: The uterus is sm all. No adnexal masses. 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 BLADDER: A small contracted bladder is again observed. Redemonstration of a cystic struct ure in the pelvis suggestive of a small bladder, which is unchanged in appeara nce. Radiation seeds again observed in the uterine cervix. LYMPH NODES: No lymphadenopathy. VESSELS: There is mild atherosclerotic disease in the aort a and major arterial branches. PERITONEUM / RETROPERITONEUM: No free air or fluid. BONES: Lower thoracic DISH. SOFT TISSUES: Unremarkable. IMPRESSION: 1. Interval development of mild to moderate left-sided hydro nephrosis which may be related to a recently passed calculus or less likely du e to distal ureteral stricture. Otherwise unchanged exam. Signed by: Dr. Rivas Victoria M.D. on 09/17/2017 7:28 PM Dictated By: JAYCOB Contreras MD, MD 27 Transc ribed By: DEYANIRA on 09/17/171927 COPY TO: ANNETTE BREWER URINE AND [id number] 22:54:00Negative *NA*(02/15/15 4:54 PM) [facility] YOFKX5611-16-89 22:54:00Moderate *ABN*(02/15/15 4:54 PM)[facility] EDGUX5498-02-08 22:54:00Positive *ABN*(02/15/15 4:54 PM)[facility] ZVCDV3019-28-08 22:54:00Large *ABN*(02/15/15 4:54 PM) [facility] STOOL 2015-02-15 22:54:00>182MH [facility] NMJPZ4560-67-78 22:54:22852UU [facility] PAZJY1862-39-89 22:54:0034[facility] STOOL 2015-02-15 22:54:00Yellow *NA*(02/15/15 4:54 PM) [facility] STO[facility] 2015-02-15 22:54:00Marked *ABN*(02/15/15 4:54 PM) [facility] STO[facility] 2015-02-15 22:54:005.0[facility] QGFPG0582-47-58 22:54:001.018 [facility] ZSYBB0475-85-61 22:40:000.6MH [facility] KUDPV5156-65-20 22:40:005.8MH [facility] IJFRC1741-05-55 22:40:0012 [facility] PANEL 2015-02-15 22:40:0012.6MH [facility] OLPKI7695-35-82 22:40:20490YF [facility] NIMTZ5755-57-49 22:40:0028MH [facility] OIQTB3466-20-04 22:40:000.3MH [facility] NFGWK8746-19-26 22:40:0073MH [facility] JEPJN1635-56-34 22:40:0025MH [facility] ADYXY1281-31-52 22:40:003.4 [facility] PANEL 2015-02-15 22:40:009.2MH [facility] ONSLX9321-37-96 22:40:009.1MH [facility] RFNAB2436-17-50 22:40:0026 [facility] LIWTM4556-27-16 22:40:48930AH [facility] LARHM6818-24-75 22:40:69618LE [facility] NYZRK1401-90-17 22:40:004.6MH [facility] QSEAV6220-95-93 22:40:000.91 [facility] PANEL 2015-02-15 22:40:0011 [facility] IUCGT0029-07-17 22:40[facility] WZIJQFNQTDRTF7182-18-93 22:40:00Negative *NA*(02/15/15 4:40 PM)[facility] POXYBJHYUM3366-58-58 22:40:0032.8 TthcqrjbgPJWPVXELMA6768-82-19 22:40:0060.0 VggrvwtpmSDAXXZDBVA9450-71-68 22:40:000.2M FztzqkoscYAFHSQVEEC6899-83-97 22:40:000.2M AikcoglmnQYLRXCOZWU8460-62-88 22:40:004.6M [facility] 2015-02-15 22:40:001.2M IinnmctcmORWESPDUIR7147-31-13 22:40:001.4[facility] JTWRDOCMYT2268-77-12 22:40:007.3M YpygwgqgtKGWJHZIQCF6010-58-06 22:40:000.6M YhjjpuplzSTIKDWPGDK7228-87-55 22:40:004.0 RypdlxpjwBQKHMQZNDA7407-59-48 22:40:00Clumped (02/15/15 4:40 PM) MnksjswgnAHDIDVMDEF2917-71-13 22:40:00Normal (02/15/15 4:40 PM) CacluqvhvFYYGKWTBUD6594-13-15 22:40:008.7[facility] MMUKDSVRJX9677-90-55 22:40:0012.0[facility] HospitalQwibjbtqdIGDROKNGBL6543-18-66 22:40:004.90 TplcijyloLLRDJAXBMN0785-36-87 22:40:0039.0 DazrfgpyuXGXETXARBP9089-08-90 22:40:0079.7 LrknkjsorCLATKOUPQG3162-62-45 22:40:0012.0 [facility] 2015-02-15 22:40:0014.8 VmgswjkizBZMUPCPXJN1631-82-40 22:40:0030.8 [facility] DMFKYGMXVI5787-97-47 22:40:95216SH MzdyvqvcvFUFUUBOBBJ0573-70-84 22:40:00* Test Item Value Reference Range Interpretation Comments MCH (test code = MCH) 24.5 pg 27.0-31.0 [facility] SOCIAL WORKER [place] [address] Patient Name: WESLY HUTCHINSON MR #: [id number] : 1960 Age/Sex: 56/F Req #: [id number] [facility] Physician: Ordered by: JARET ESPINOSA MD Report #: [id number] Location: [employer] Room/Bed: Procedure: [id number] IR/SPECIAL PROCEDURE IN CHILD [employer]ELF[employer] SOCIAL WORKER Exam Date: Exam Time: REPORT STATUS: Sig jie Nephrostomy catheter evaluation and exchange, 07/03/2017 Pre-Procedur e Diagnosis: Cervical cancer status post radiation therapy with right ureteral stenosis. Post-procedure Diagnosis:Cervical cancer status post radiation ther apy with right ureteral stenosis Visiting Teacher: Eleni Thomas Hi Ranger Operator: Norma e Sedation: None. Radiation Dose:1.931 cGycm2 (Dose Area Product) Fluor oscopy time:0.7 minutes Estimate blood loss: None Blood administered: None Complications: None Implants/Grafts: 8-Jordanian right nephrostomy Specimen: None Procedure: Informed consent was obtained and the patient position ed prone in the fluoroscopy suite. A timeout was performed. The indwelling rig ht nephrostomy was prepped and draped in standard fashion. Diagnostic ant egrade nephrostogram was performed nephrostomy. See findings below. The i ndwelling catheter was severed and removed over a Glidewire given heavy encrus tation. Glidewire was exchanged for a Bentson wire with a short KMP catheter. A new 10-Jordanian nephrostomy was coiled in the renal pelvis without complicatio n. Contrast injection confirmed placement within the renal pelvis. At the e nd of the procedure the catheter was connected to gravity drainage and a steri le dressing applied. The patient tolerated the procedure well and without imme diate complication. Findings: Antegrade nephrostogram: Patent catheter. N o hydronephrosis. Mildly prominent pelvis. Diffuse right ureteral stenosis wit h distal occlusion. The catheter was heavily encrusted with debris. Impre ssion: Successful right 10-Jordanian nephrostomy exchange with antegrade nephrost ogram. Recommendations: Routine catheter exchange in [address] encrustation. This report was generated with voice-recognition te chnology. Errors in clinical fellow can occur. Please interpret accordingly and contact a radiologist if there are any questions regarding the report. Si gned by: Dr. Carla Thomas M.D. on 07/03/2017 11:55 AM Dictated By: CARLA THOMAS MD 1522 Tra nscribed By: DEYANIRA on 07/09/17 1522 COPY TO: JARET ESPINOSA MD CT ABDOMEN/PELVIS [place] [address] Patient Name: WESLY HUTCHINSON MR #: [id number] : 1960 Age/Sex: 56/F Req #: [id number] Adm Physician: Ordered by: ASHA BARDALES FARM FACILITY MANAGER Report #: [id number] Location: ER Room/Bed: Procedure: [id number] CT/CT ABDOMEN/PELVIS WO Exam Date: 04/12/17 Exam Time: 1500 REPORT STATUS: S igned EXAM: CT Abdomen and Pelvis WITHOUT contrast INDICATION: Abdominal pain, concerning for renal stone COMPARISON: CT abdomen and pelvis from 018 fluoroscopy for nephrostomy tube change 03/11/2017 TECHNIQUE: Abdomen and pelvis were scanned utilizing a multidetector helical scanner from the lung b ase to the pubic symphysis without administration of IV contrast. Absence of i ntravenous contrast decreases sensitivity for detection of focal lesions and v ascular pathology. Coronal and sagittal reformations were obtained. Renal ston e protocol was performed. IV CONTRAST: None. ORAL C ONTRAST: Water RADIATION DOSE: Total DLP: 550.3 mGy*cm Estimated effective dose: (DLP x 0.015 x size factor) mSv COMP LICATIONS: None FINDINGS: LINES and TUBES: Right percutaneous nephrost lisa tube. LOWER THORAX: 2 mm right lower lobe calcified granuloma. HE PATOBILIARY: No focal hepatic lesions. No biliary ductal dilation. GA LLBLADDER: Unchanged peripherally calcified 2 cm gallstone and a few additiona l 2 to 3 mm gallstones. No wall thickening. SPLEEN: No splenomegaly. PANCREAS: No focal masses or ductal dilatation. ADRENALS: No adrenal nod ules KIDNEYS/URETERS: Interval resolution of the right hydronephrosis after percutaneous nephrostomy tube exchange. Few other foci in the right kidn ey likely due to procedure. Previously noted right perinephric fat stranding h aved resolved. No cystic or solid mass lesions. Multiple up to 5 mm left rosy l stones remain unchanged. Minimal dilatation of the renal pelves, otherwise, no left hydronephrosis. Unchanged mild left hydroureter. GI TRACT: No abn ormal distention, wall thickening, or evidence of bowel obstruction. Valdo endix is normal. REPRODUCTIVE ORGANS: The uterus is small. No adnexal jennifer s. 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 BLADDER: The bladder is small an d irregular, possibly due to postradiation changes. LYMPH NODES: No lymph adenopathy. VESSELS: Unremarkable. PERITONEUM / RETROPERITONEUM: No fr ee air or fluid. BONES: Unremarkable. SOFT TISSUES: Unremarkable. IMPRESSION: 1. Interval resolution of the right hydronephrosis after but without new nephrostomy tube exchange. 2. Stable left nephroli thiasis. 3. No acute abnormalities in the abdomen and pelvis. Signed by: Dr. Marisela Marshall M.D. on 04/12/2017 4:03 PM Dictated By: JULIO MARSHALL MD 160 COPY TO: ASHA BARDALES NP SPECIAL PROCEDURE IN CHILD [employer] SOCIAL WORKER [place] [address] Patient Name: WESLY HUTCHINSON MR #: [id number] : 1960 Age/Sex: 56/F Req #: [id number] Adm Physician: VIKY MONTOYA MD Ordered by: JARET ESPINOSA MD Report #: [id number] Location: MED/SURG2 Room/Bed: [facility] Procedure: [id number] IR/SPE CIAL PROCEDURE IN CHILD [employer]FARE SOCIAL WORKER Exam Date: Exam Time: REPORT STATUS: Signed Nephrostomy catheter evaluation and subsequent exc hange, 03/11/2017 Pre-Procedure Diagnosis: Cervical cancer status post radia tion therapy with right ureteral stenosis. Post-procedure Diagnosis:Cervical cancer status post radiation therapy with right ureteral stenosis Operat or: Eleni Thomas Hi Ranger Operator: None Sedation: Moderate sedation was provided w ith intravenous fentanyl and Versed. Heart rate, rhythm and oxygen saturation were monitored and real-time by a dedicated interventional radiology nurse un garrett my direct supervision. Blood pressure was monitored in 5 minute increment s. 1% lidocaine was used for local anesthesia. Total sedation time: 30 minute s. Radiation Dose <1: cGycm2 (Dose Area Product) Fluoroscopy time:1.2 minutes Estimate blood loss: None Blood administered: None Complications: None Implants/Grafts: 10-Jordanian right nephrostomy Specimen: None Procedure: Informed consent was obtained and the patient positioned prone in the fluoroscopy suite. A timeout was performed. The indwelling right nephrostomy was prepped and draped in standard fashion. Diagnostic antegrade nephrostogram was performed given the long indwelling time of the previously placed for ostomy. See findings below. Attempts to remove the indwelling 8-Jordanian nephrostomy over a Bentson and Glidewire were unsuccessful due to heavy encrustation. The catheter was subsequently severed and removed through an 11-Jordanian peel-away sheath. A Bentson wire was advanced through the peel-away sheath and exchanged for a 10-Jordanian nephrostomy. Contrast injection confirmed placement within the [...] was generated with voice-recognition technology. Errors in clinical fellow can occur. Please interpret accordingly and contact a radiologist if there are any questions regarding the report. Signed by: Dr. Carla Thomas M.D. on 03/11/2017 2:37 PM Dictated By: CARLA THOMAS MD E lectronically Signed By: CARLA THOMAS MD on 03/12/17931 Transcribed By: VAN CARD on 03/12/17931 COPY TO: JARET ESPINOSA MD IR CONSULT [address] [place] [address] Patient Name: WESLY HUTCHINSON MR #: [id number] : Age/Sex: 56/F [facility] #: [id number] Req #: [id number] [facility] Physician: VIKY REAGAN MD Ordered by: LIZ MUÑIZ MD Report #: [id number] Locatio n: MED/SURG2 Room/Bed: [facility] Procedure: [id number] DX/ IR CONSULT Exam Date: Exam Time: REPORT STAT US: Signed Nephrostomy catheter evaluation and subsequent exchange, 03/11/2017 Pre-Procedure Diagnosis: Cervical cancer status post radiation therapy with right ureteral stenosis. Post-procedure Diagnosis:Cervical cancer status p ost radiation therapy with right ureteral stenosis Visiting Teacher: Pratibha Thomas Hi Ranger Operator: Irena Sedation: Moderate sedation was provided with intravenous fentanyl and Versed. Heart rate, rhythm and oxygen saturation were monitored and real-time by a dedicated interventional radiology nurse under my direct vargas pervision. Blood pressure was monitored in 5 minute increments. 1% lidocaine was used for local anesthesia. Total sedation time: 30 minutes. Radiation Dose <1: cGycm2 (Dose Area Product) Fluoroscopy time:1.2 minutes Estimate blood loss: None Blood administered: None Complications: None Implants/Grafts: 10-Jordanian right nephrostomy Specimen: None Procedure: Informed consent was obtained and the patient positioned prone in the fluoroscopy suite. A timeout was performed. The indwelling right nephrostomy was prepped and draped in standard fashion. Diagnostic antegrade nephrostogram was performed given the long indwelling time of the previously placed for ostomy. See findings below. Attempts to remove the indwelling 8- Jordanian nephrostomy over a Bentson and Glidewire were unsuccessful due to heavy encrustation. The catheter was subsequently severed and removed through an 11- Jordanian peel-away sheath. A Bentson wire was advanced through the peel-away sheath and exchanged for a 10-Jordanian nephrostomy. Contrast injection confirmed placement within the [...] was generated with voice-recognition technology. Errors in clinical fellow can occur. Please interpret accordingly and contact a radiologist if there are any questions regarding the report. Signed by: Dr. Carla Thomas M.D. on 03/11/2017 2:37 PM Dictated By: CARLA THOMAS MD E lectronically Signed By: CARLA THOMAS MD on 03/12/17931 Transcribed By: VAN CARD on 03/12/17931 COPY TO: LIZ MUÑIZ MD CT ABDOMEN/PELVIS WO [place] [address] Patient Name: WESLY HUTCHINSON MR #: [id number] : 1960 Age/Sex: 56/F Req #: [id number] Adm Physician: Ordered by: LIZ MUÑIZ MD Report #: [id number] Location: ER Room/Bed: Procedure: [id number] CT/CT ABDOMEN/PELVIS WO Exam Da te: 03/11/17 Exam Time: 0056 REPORT STATUS: Sig jie EXAM: CT ABDOMEN AND PELVIS without IV CONTRAST ORDER DATE: 03/11/2017 1 2:14 AM Time stamp on Exam: 0058 hours INDICATION: Pain in right kidney stat us post nephrostomy, decreased urine output COMPARISON: CT of the abdomen a nd pelvis July 24, 2016 TECHNIQUE: The abdomen and pelvis were scanned using a multidetector helical scanner. Coronal and sagittal reformations were obtaine d. Renal stone protocol performed. IV Contrast: None Oral Contrast: None CTDIvol has been reviewed. It is below the limits set by the Radiation Protocol Committee (RPC). FINDINGS: LOWER THORAX: No consolidations LIVER: No masses BILIARY: Gallstone in an otherwise normal gallbladder. No ductal di lation. SPLEEN: Normal PANCREAS: Normal ADRENALS: Normal RIGHT KIDNEY: Percutaneously nephrostomy tube in place with distal end coiled within the pelvis. Severe hydronephrosis. Mild perinephric fat stranding. LEFT K IDNEY: Mild hydroureteronephrosis of the left kidney, similar to prior exam. P unctate nonobstructing stones in the inferior calyx. GI TRACT: No wall thi ckening or obstruction. Normal appendix. VESSELS: Minimal atherosclerotic changes of the abdominal aorta without aneurysm. PERITONEUM/RETROPERITONEUM: No free air or fluid LYMPH NODES: No lymphadenopathy REPRODUCTIVE ORGANS: The uterus is small. No adnexal masses. 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 BLADDER: The bladder is small and irregular, possibly due to postradiation changes. SOFT TISSUES: Normal BONES: No suspicious bone lesions. IM PRESSION: Severe right hydronephrosis with percutaneous nephrostomy tube in pl armando, consistent with tube obstruction. Signed by: Dr. Wesly Campos M.D. on 03/11/2017 1:28 AM Dictated By: WESLY CAMPOS MD Electronically S igned By: WESLY CAMPOS MD on 03/11/17127 Transcribed By: DEYANIRA on 03/11/17127 COPY TO: LIZ MUÑIZ MD SPECIAL PROCEDURE IN CHILD [employer] SOCIAL WORKER [place] [address] Patient Name: WESLY HUTCHINSON MR #: [id number] : Age/Sex: 56/F Req #: [id number] Adm Physician: CARLIE PRECIADO MD Ordered by: JARET ESPINOSA MD Report #: [id number] Location: M ED/SURG3 Room/Bed: [facility] Procedure: [id number] IR/SPEC IAL PROCEDURE IN CHILD WELFARE SOCIAL WORKER Exam Date: Exam Time: REPORT STATUS: Signed Date and Time: 12/31/2016 Procedure: Right per cutaneous nephrostomy catheter exchange turning machine set up operator: Dr. Marlin Mercedes re-operative diagnosis: Right sided pyelonephritis with indwelling nephrostomy . Post-operative diagnosis: Indwelling nephrostomy Conscious Sedation: Fe ntanyl 50 mcg. The patient's heart rate and pulse oximetry were continuously m onitored by the interventional radiology nurse. Blood pressure was monitored at 5 minute intervals. Additional Medications: Lidocaine 1% for local ane sthesia Fluoroscopy time: 1.0 minutes Dose-area Product: 22.7 cGycm2. Contrast used: 20 cc Isovue-300 Estimated blood loss: Minimal Specimens: 10 Jordanian nephrostomy catheter, discarded Implants: New 10 Jordanian nephrostomy c atheter DISCUSSION: Informed consent for the procedure was obtained from the patient and documented in the medical record after discussion of ris ks and benefits. The patient was placed in the prone position on the fluoro scopic table. The right flank and existing percutaneous nephrostomy catheter w ere prepped and draped in standard sterile fashion. 1% lidocaine was infiltrat ed into the skin and subcutaneous tissues along the catheter for local anesthe tiffanie. The retention suture was cut. Dilute contrast material was injected throu gh the catheter, confirming appropriate positioning within the collecting syst em. The catheter was then severed at the hub and a 0.0 3 5-in. wire was advanc ed through the catheter under fluoroscopic guidance. The catheter was removed over the wire and a new 10 Jordanian locking loop percutaneous the prostate was a dvanced over the wire, which was then removed. The locking loop of the cathete r was positioned in the renal pelvis with appropriate positioning confirmed by injection of dilute contrast material. The catheter was flushed with sterile saline and connected to gravity drainage. The catheter was secured to the skin with monofilament nylon suture and a sterile dressing was applied. FINDINGS: Mild right hydronephrosis. IMPRESSION: Successful exchange of a right percutaneous nephrostomy catheter (10 Jordanian locking loop) under fluoroscopic guidance. The patient should return to interventional r adiology in 8 weeks for routine catheter exchange. Signed by: Dr. Osiel Sullivan M.D. on 01/02/2017 7:09 AM Dictated By: OSIEL SULLIVAN MD Electro nically Signed By: OSIEL SULLIVAN MD on 01/02/17708 Transcribed By: DEYANIRA on 01/02/17708 COPY TO: JARET ESPINOSA MD CHEST XRAY LINE PLACEMENT [place] [address] Patient Name: WESLY HUTCHINSON MR #: [id number] : Age/Sex: 56/F Req #: [id number] Adm Physician: CARLIE PRECIADO MD Ordered by: NAMITA EDMONDS MD Report #: [id number] Location: [facility] Room/Bed: [facility] Procedure: [id number] DX/ EST XRAY LINE PLACEMENT Exam Date: 12/29/16 Exam Kirk e: 1440 REPORT STATUS: Signed PROCEDURE: CHEST XRAY LINE PLACEMENT TECHNIQUE: Portable AP chest INDICATION: PICC placement COMPARISON: No ne. FINDINGS: See conclusion. CONCLUSION: 1. Right PICC term inating in the high SVC. 2. Low lung volume with left lower lobe medial subseg mental atelectasis. 3. Normal heart size and mediastinal contour for techni que. 4. Crescentic skeleton. Dictated by: Carla Thomas M.D. on 12/29/2016 at 14:58 Electronically approved by: Carla Thomas M.D. on 12/29/2016 at 14:58 Dictated By: CARLA THOMAS MD Electr onically Signed By: CARLA THOMAS MD on 12/29/161457 Transcribed By: SUSHANT on 12/29/161457 COPY TO: NAMITA EDMONDS MD IR CONSULT [place] [address] Patient Name: WESLY HUTCHINSON MR #: [id number] : 1960 Age/Sex: 56/F Req #: [id number] Adm Physician: CARLIE PRECIADO MD Ordered by: JARET ESPINOSA MD Report #: [id number] Location: ED/SURG2 Room/Bed: [facility] Procedure: [id number] DX/IR C ONSULT Exam Date: Exam Time: REPORT STATUS: Signed Date and Time: 11/05/2016 Procedure: Replacement of right percutan eous nephrostomy catheter turning machine set up operator: Dr. Sullivan Assistants: None Pre-operative diagnosis: Dislodged right percutaneous nephrostomy Post-o perative diagnosis: Replaced right percutaneous nephrostomy Conscious Sedat ion: Versed 1 mg and Fentanyl 100 mcg. The patient's heart rate and pulse oxi metry were continuously monitored by the interventional radiology nurse. Bloo d pressure was monitored at 5 minute intervals. Additional Medications: L idocaine 1% for local anesthesia Fluoroscopy time: 1.3 minutes Dose-area Pr oduct: 499.8 cGycm2. Contrast used: 20 cc Isovue-300 Estimated blood lo ss: Minimal Specimens: None Implants: 10 Jordanian locking loop nephrostomy farhat inage catheter Blood products administered: None Complications: No immediate Condition at completion of procedure: Stable Disposition: Returned to floor unit DISCUSSION: Informed consent was obtained and documented in the medical record. The patient was placed in the prone position on the fluoros copic table and the right flank was prepped and draped in standard sterile fas hion. 1% lidocaine was infiltrated into the skin and subcutaneous tissues for local anesthesia. Then under fluoroscopic guidance, a [address] was gently advanced through the existing percutaneous nephrostomy tract an d into the renal pelvis, with appropriate positioning confirmed by injection o f dilute contrast material. A 0.0 3 5-in. Amplatz wire was then advanced through the catheter and into the proximal right ureter. The catheter was ji mike and the tract was dilated. Then a 10 Jordanian locking loop nephrostomy [address] ter was advanced over the wire and formed in the renal pelvis. Injection of di lute contrast material confirmed appropriate positioning. The catheter was flu shed with sterile saline, secured to the skin with monofilament nylon suture, and connected to gravity drainage. A sterile dressing was applied. Patient violet erated the procedure well without immediate complication. FINDINGS: Moderate right hydronephrosis. IMPRESSION: Successful replacement of a right percutaneous nephrostomy catheter (10 Jordanian locking loop) through the existing subcutaneous tract. The patient should return to interventional r adiology for routine catheter exchange in 3 months. Signed by: Dr. Osiel Sullivan M.D. 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 Sullivan Assistants: None Pre-operative diagnosis: Dislodged right percutaneous n ephrostomy Post-operative diagnosis: Replaced right percutaneous nephrostomy Conscious Sedation: Versed 1 mg and Fentanyl 100 mcg. The patient's heart rate and pulse oximetry were continuously monitored by the interventional rad iology nurse. Blood pressure was monitored at 5 minute intervals. Additi onal Medications: Lidocaine 1% for local anesthesia Fluoroscopy time: 1.3 min utes Dose-area Product: 499.8 cGycm2. Contrast used: 20 cc Isovue-300 Estimated blood loss: Minimal Specimens: None Implants: 10 Jordanian locking l oop nephrostomy drainage catheter Blood products administered: None Complica tions: No immediate Condition at completion of procedure: Stable Disposition : Returned to floor unit DISCUSSION: Informed consent was obtained and documented in the medical record. The patient was placed in the prone posi tion on the fluoroscopic table and the right flank was prepped and draped in s tandard sterile fashion. 1% lidocaine was infiltrated into the skin and subcut aneous tissues for local anesthesia. Then under fluoroscopic guidance, a 5 Jordanian angled catheter was gently advanced through the existing percutaneous n ephrostomy tract and into the renal pelvis, with appropriate positioning confi rmed by injection of dilute contrast material. A 0.0 3 5-in. Amplatz wire was then advanced through the catheter and into the proximal right ureter. The catheter was removed and the tract was dilated. Then a 10 Jordanian locking loop nephrostomy catheter was advanced over the wire and formed in the renal pelv is. Injection of dilute contrast material confirmed appropriate positioning. T he catheter was flushed with sterile saline, secured to the skin with monofila ment nylon suture, and connected to gravity drainage. A sterile dressing was a pplied. Patient tolerated the procedure well without immediate complication. FINDINGS: Moderate right hydronephrosis. IMPRESSION: Success ful replacement of a right percutaneous nephrostomy catheter (10 Jordanian lockin g loop) through the existing subcutaneous tract. The patient should return to interventional radiology for routine catheter exchange in 3 months. Si gned by: Dr. Osiel Sullivan M.D. on 11/12/2016 10:12 AM Dictated By: OSIEL SULLIVAN MD 1012 Transc ribed By: DEYANIRA on 11/12/16 1012 COPY TO: JARET ESPINOSA MD ABDOMEN-1VIEW (KUB) [place] [address] Patient Name: WESLY HUTCHINSON MR #: [id number] : 1960 Age/Sex: 56/F Req #: [id number] Adm Physician: Ordered by: ARIA ROCHE MD Report #: [id number] Location: ER Room/Bed: Procedure: [id number] DX/ABDOMEN-1VIEW (KUB) Exam D ate: 11/03/16 Exam Time: 1430 REPORT STATUS: Si gned PROCEDURE: X-RAY ABDOMEN - KUB COMPARISON: CT of the abdomen a nd pelvis from 07/24/2016 INDICATIONS: right side abdomen FINDINGS: No dilated loops of bowel or abnormal air-fluid levels patterns. No free air underneath the diaphragm. Visualized portions of the lung bases are clear. A nephrostomy tube is projected over the right hemiabdomen. A 2.5 cm calcified gallstone is unchanged. No definite calcifications are seen overlying the urinary system. Amorphous calcifications in the right hemip thelma are indeterminate. There are surgical clips in the pelvis. Five non-rib bearing lumbar type vertebral bodies identified. CONCLUSION: A nephr ostomy tube is projected over the right hemiabdomen. Indeterminate calcificati ons in the right hemipelvis which could represent ureteral stones, phlebolith , or vascular calcifications. Dictated by: Namita Lawrence M.D. on 017 at 14:59 Electronically approved by: Namita Lawrence M.D. on 11/04/19 17 at 14:59 Dictated By: NAMITA LAWRENCE MD Electronically S igned By: NAMITA LAWRENCE MD on 11/03/16 1458 Transcribed By: SUSHANT on 7 2007 COPY TO: ARIA ROCHE MD
--- OUTSIDE RECORDS SUMMARY | 2019-07-04 20:18 | XMS REPORT | Clinical Summary ---
Author Author [facility] Organization [facility] Address Unknown Phone Unavailable Care Team Providers Care Pony Trimmer Name Role Phone PCP Unavailable Allergies Comments Active Allergy Reactions Severity Noted Date BECAME ANXIOUS AND FELT STRANGE Diphenhydramine Other 12/28/2008 Medications End Date Status Medication Sig Dispensed Refills Start Date Active oxybutynin (DITROPAN) 5 Take 1 Tab by 90 Tab 1 mg tabletIndications: mouth 3 times 0 Ureteral stricture daily. For bladder spasms Active doxazosin (CARDURA) 2 mg Take 1 Tab by 90 Tab 1 tabletIndications: mouth at 0 Ureteral stricture bedtime. Active famotidine (PEPCID) 20 mg Take 1 Tab by 30 Tab 3 tabletIndications: GERD mouth 2 times 2 (gastroesophageal reflux daily. disease) Active traMADol (ULTRAM) 50 mg Take 50 mg by 0 tablet mouth as needed. Active tamsulosin (FLOMAX) 0.4 Take 1 30 capsule 3 mg extended release capsule by 2 capsuleIndications: mouth daily. Hydronephrosis Active flavoxate (URISPAS) 100 Take 1 tablet 30 tablet 0 mg tabletIndications: by mouth 3 2 Hydronephrosis, right times daily as needed (dysuria). Active acetaminophen (TYLENOL) Take 650 mg 0 325 mg tablet by mouth every 6 hours as needed. Active cyclobenzaprine Take 1 tablet 40 tablet 2 11/23/19 1 (FLEXERIL) 10 mg by mouth 2 3 tabletIndications: Flank times daily Pain as needed for Muscle Spasms. Active HYDROcodone-acetaminophen Take 1 tablet 30 tablet 0 (NORCO) 10-325 mg by mouth 4 tabletIndications: every 6 hours Pyelonephritis as needed for Pain. Active metFORMIN (GLUCOPHAGE) Take 500 mg 0 500 mg tablet by mouth 2 times daily (with meals). Active fenofibrate Take 145 mg 0 nanocrystallized (TRICOR) by mouth 145 mg tablet daily. Active lisinopril (PRINIVIL, Take 2.5 mg 0 ZESTRIL) 2.5 mg tablet by mouth daily. Active atorvastatin (LIPITOR) 20 Take 20 mg by 0 mg tablet mouth at bedtime nightly. Active Problems Problem Noted Date BMI 36.0-36.9,adult 08/03/2013 Overview: Obese Obese 08/03/2013 Complicated UTI (urinary tract infection) 06/14/2013 Hematuria 06/11/2013 Fatigue 06/02/2012 Myalgia 06/02/2012 Fever 06/02/2012 UTI (lower urinary tract infection) 12/10/2011 Hydronephrosis, right 02/16/2011 Flank pain 02/15/2011 Pyelonephritis 02/15/2011 Cough 05/16/2010 Immunizations Name Administration Dates Next Due Influenza Vaccine 10/30/2012 (Deferred: Patie nt Refused) Pneumoccoccal 10/30/2012 (Deferred: Cande nt Refused) Family History Medical History Relation Name Comments Diabetes Father Relation Name Status Comments Brother Alive Father Alive Mother Alive Sister Alive Social History Date Tobacco Use Types Packs/Day Years Used Never Smoker Smokeless Tobacco: Never Used Drinks/Week oz/Week Comments Alcohol Use No Sex Assigned at Date Recorded Not on file Industry Job Start Date Occupation Not on file Not on file Not on file Travel End Travel History Travel Start No recent travel history available. Last Filed Vital Signs Not on file Plan of Treatment Health Maintenance Due Date Last Done Comments Cervical Cancer Scrn (3 10/08/1983 Yrs) Breast Cancer Scrn 09/04/2004 09/05/2003 (Yearly) Colorectal Cancer Scrn 2012 Annual (FIT/FOBT) Age 50 to 75 IMM Influenza Seasonal 11/10/2019Nov to April (>/= 19 yrs) Implants Device Identifier Shelf Expiration Date Model / Serial / L ot Implanted Type Area Manufactur er 05/10/2016 [id number] / / [id number] Implant Gu Stent Black Beauty Stent Right: Cook Double Pigtail 7fr X 24cm [id number] - Kidney(s) [id number] Implanted: Qty: 1 on 09/07/2013 by Kelby Steen [facility]MD at [facility] Results Not on fileafter 07/03/2018 Insurance Type Payer Benefit Subscriber ID Effective Phone Address Plan / Dates Group BC/BS BCBS HMO xxxxxxxxxxxx 2014-P [phone] [address] [id number] [facility] [place] [id number] Advance Directives Date Inactivated Comments Code Status Date Activated 09/17/2014 6:47 PM Full Code 09/14/2014 4:06 AM 06/17/2013 4:20 PM Full Code 06/11/2013 11:43 PM 04/24/2013 1:19 AM Full Code 04/23/2013 6:29 AM 10/30/2012 4:29 PM Full Code 10/29/2012 6:24 AM 02/18/2011 10:06 PM Full Code 02/15/2011 10:55 PM
--- OUTSIDE RECORDS SUMMARY | 2019-07-04 20:18 | XMS REPORT | Continuity of Care Document ---
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 [facility] Medications Medication Details Route Status Patient Instructions Ordering Provider Order Date Source Ativan 1 mg, Route: PO, Drug f orm: TAB, ONCE, Dosing Weight 86.364, kg, Priority: STAT, Start date: 03/09/15 23:44:00, Stop date: 03/09/15 23:44:00 No Longer Active 03/10/2015 [facility] tramadol hydrochloride 50 MG Oral Tablet 50 mg = 1 tab, PO, BID, X 15 day, # 30 tab, 0 Refill(s) Active 03/10/2015 [facility] tramadol hydrochloride 50 MG Oral Tablet [Ultram] 1 - 2 tabs, PO, Q4-6H, PRN as needed for pain, X 7 day, # 12 tab, 0 Refill(s) Active 02/16/2015 [facility] Sulfamethoxazole 800 MG / Trimethoprim 1 60 MG Oral Tablet [Bactrim] 1 tab, PO, BID, # 20 tab, 0 Refill(s) Active 02/16/2015 [facility] Rocephin 1 gm, Route: IM, ONCE , Dosing Weight 84.091, kg, Start date: 02/15/15 17:48:00, Stop date: 02/15/15 17:48:00 Inactive 02/15/2015 [facility] Ondansetron Notes: (Same as: Dennise bowles) MEDICATION WASTE Product Size: 4 mg Product Wasted: ___ mg Inactive 02/15/2015 [facility] Sodium Chloride 0.154 MEQ/ML Injectable Solution 1,000 mL, 1000 ml/hr, Infuse Over: 1 hr, Route: IV, 1,000, Drug form: INJ, ONCE, Priority: STAT, Dosing Weight 84.091 kg, Start date: 02/15/15 15:36:00, Duration: 1 doses or times, Stop date: 02/15/15 15:36:00 Inactive 02/15/2015 [facility] Saline Flush 0.9% Notes: Same as: BD Posiflush Sterile Inactive 02/15/2015 [facility] Allergies, Adverse Reactions, Alerts Substance Category Reaction Severity Reaction type Status Date Reported Comments Source diphenhydrAMINE Assertion Drug allergy Active [facility] Immunizations No Data Provided for This Section Results Order Name Results Value Reference Range Date Interpretation Comments Source URINE AND STOOL UA Urobilinogen <=1.0 mg/dL 0.1 - 1.0 02/15/2015 [facility] URINE AND STOOL UA Protein 100 mg/dL Negative mg/dL 02/15/2015 [facility] URINE AND STOOL UA Glucose Negative mg/dL Negative mg/dL 02/15/2015 [facility] URINE AND STOOL UA Ketones Negative mg/dL Negative mg/dL 02/15/2015 [facility] URINE AND STOOL UA Bili Negative *NA* (02/15/15 4:54 PM) Negative 02/15/2015 [facility] URINE AND STOOL UA Blood Moderate *ABN* (02/15/15 4:54 PM) Negative 02/15/2015 [facility] URINE AND STOOL UA Nitrite Positive *ABN* (02/15/15 4:54 PM) Negative 02/15/2015 [facility] URINE AND STOOL UA Leuk Est Large *ABN* (02/15/15 4:54 PM) Negative 02/15/2015 [facility] URINE AND STOOL UA Sq Epi Few /LPF Few /LPF 02/15/2015 [facility] URINE AND STOOL UA WBC >182 0 - 5 02/15/2015 [facility] URINE AND STOOL UA RBC 155 0 - 2 02/15/2015 [facility] URINE AND STOOL UA Bacteria Many /HPF None Seen /HPF 02/15/2015 [facility] URINE AND STOOL UA WBC Cast 34 <=0 /LPF 02/15/2015 [facility] URINE AND STOOL UA Mucus Few /LPF None Seen /LPF 02/15/2015 [facility] URINE AND STOOL UA Color Yellow *NA* (02/15/15 4:54 PM) Yellow 02/15/2015 [facility] URINE AND STOOL UA Turbidity Marked *ABN* (02/15/15 4:54 PM) Clear 02/15/2015 [facility] URINE AND STOOL UA pH 5.0 5.0 - 8.0 02/15/2015 [facility] URINE AND STOOL UA Spec Grav 1.018 <=1.030 02/15/2015 [facility] CHEM PANEL A/G Ratio 0.6 0.7 - 1.6 02/15/2015 [facility] CHEM PANEL Globulin 5.8 2.0 - 4.0 02/15/2015 [facility] CHEM PANEL B/C Ratio 12 6 - 25 02/15/2015 [facility] CHEM PANEL AGAP 12.6 10.0 - 20.0 02/15/2015 [facility] CHEM PANEL Alk Phos 115 39 - 136 02/15/2015 [facility] CHEM PANEL AST 28 0 - 37 02/15/2015 [facility] CHEM PANEL Bili Total 0.3 0.2 - 1.3 02/15/2015 [facility] CHEM PANEL eGFR 73 02/15/2015 Result Comment: [...] should be multiplied by the estimated BMI. [facility] CHEM PANEL ALT 25 0 - 65 02/15/2015 [facility] CHEM PANEL Albumin Lvl 3.4 3.5 - 5.0 02/15/2015 [facility] CHEM PANEL Total Protein 9.2 6.4 - 8.4 02/15/2015 [facility] CHEM PANEL Calcium Lvl 9.1 8.5 - 10.5 02/15/2015 [facility] CHEM PANEL CO2 26 24 - 32 02/15/2015 [facility] CHEM PANEL Sodium Lvl 140 135 - 145 02/15/2015 [facility] CHEM PANEL Chloride Lvl 106 95 - 109 02/15/2015 [facility] CHEM PANEL Potassium Lvl 4.6 3.5 - 5.1 02/15/2015 [facility] CHEM PANEL Creatinine Lvl 0.91 0.50 - 1.40 02/15/2015 [facility] CHEM PANEL BUN 11 7 - 22 02/15/2015 [facility] CHEM PANEL Glucose Lvl 118 70 - 99 02/15/2015 [facility] ENDOCRINOLOGY S Preg Ne gative *NA* (02/15/15 4:40 PM) Negative 02/15/2015 [facility] HEMATOLOGY Lymphocytes 32.8 20.0 - 40.0 02/15/2015 [facility] HEMATOLOGY Segs 60.0 45.0 - 75.0 02/15/2015 [facility] HEMATOLOGY Eosinophils # 0.2 0.0 - 0.5 02/15/2015 [facility] HEMATOLOGY Basophils # 0.2 0.0 - 0.2 02/15/2015 [facility] HEMATOLOGY Monocytes 4.6 2.0 - 12.0 02/15/2015 [facility] HEMATOLOGY Eosinophils 1.2 0.0 - 4.0 02/15/2015 [facility] HEMATOLOGY Basophils 1.4 0.0 - 1.0 02/15/2015 [facility] HEMATOLOGY Segs-Bands # 7.3 1.5 - 8.1 02/15/2015 [facility] HEMATOLOGY Monocytes # 0.6 0.0 - 0.8 02/15/2015 [facility] HEMATOLOGY Lymphocytes # 4.0 1.0 - 5.5 02/15/2015 [facility] HEMATOLOGY Plt Morph Clump ed (02/15/15 4:40 PM) 02/15/2015 [facility] HEMATOLOGY RBC Morph Emily l (02/15/15 4:40 PM) 02/15/2015 [facility] HEMATOLOGY MPV 8.7 7.4 - 10.4 02/15/2015 [facility] HEMATOLOGY WBC 12.0 3.7 - 10.4 02/15/2015 [facility] RBC 4.90 4.20 - 5.40 02/15/2015 [facility] HEMATOLOGY Hct 39.0 36.0 - 48.0 02/15/2015 [facility] HEMATOLOGY MCV 79.7 80.0 - 98.0 02/15/2015 [facility] HEMATOLOGY Hgb 12.0 12.0 - 16.0 02/15/2015 [facility] HEMATOLOGY RDW 14.8 11.5 - 14.5 02/15/2015 [facility] HEMATOLOGY MCHC 30.8 32.0 - 36.0 02/15/2015 [facility] HEMATOLOGY Platelet 220 133 - 450 02/15/2015 [facility] HEMATOLOGY MCH 24.5 27.0 - 31.0 02/15/2015 [facility] Pathology Reports No Data Provided for This Section Diagnostic Reports No Data Provided for This Section Consultation Notes No Data Provided for This Section Discharge Summaries No Data Provided for This Section History and Physicals No Data Provided for This Section Vital Signs Vital Sign Value Date Comments Source Weight 86.364 03/10/2015 [facility] Temperature Oral (F) 97.9 F 03/10/2015 [facility] Respitory Rate 18 03/10/2015 [facility] Heart Rate 91 03/10/2015 [facility] Systolic (mm Hg) 140 03/10/2015 [facility] Diastolic (mm Hg) 99 03/10/2015 [facility] Temperature Oral (F) 98.4 F 02/16/2015 [facility] Respitory Rate 18 02/16/2015 [facility] Heart Rate 97 02/16/2015 [facility] Systolic (mm Hg) 142 02/16/2015 [facility] Diastolic (mm Hg) 82 02/16/2015 [facility] Systolic (mm Hg) 147 02/15/2015 [facility] Diastolic (mm Hg) 93 02/15/2015 [facility] Weight 84.091 02/15/2015 [facility] BMI Calculated 36.21 02/15/2015 [facility] Height 152.4 cm 02/15/2015 [facility] Heart Rate 76 02/15/2015 [facility] Respitory Rate 18 02/15/2015 [facility] Temperature Oral (F) 98.1 F 02/15/2015 [facility] Encounters Location Location Details Encounter Type Encounter Number Reason For Visit Attending Provider ADM Date DC Date Status Source [facility] [id number] Ceeандрей Feliz 02/15/2015 02/16/2015 [facility] [id number] Kelby Lyons 03/10/2015 03/10/2015 [facility] Procedures No Data Provided for This Section Assessment and Plan No Data Provided for This Section Plan of Care No Data Provided for This Section Social History Social History Date Source Social History TypeResponse Smoking Status Never smoker; Exposure to Tobacco Smoke None; Cigarette Smoking Last 365 Days No; Reg Smoking Cessation Counseling No 03/10/2015 [facility] Family History No Data Provided for This Section Advance Directives No Data Provided for This Section Functional Status No Data Provided for This Section
[2019-07-04] MEDS ORDERED: ONDANSETRON HCL INJ 2MG/ML 2ML 2 MG/ML VIAL IV ONE (20:34)
--- NOTE | 2019-07-04 20:43 | Emergency Department Note ---
History of Present Illnes History of Present Illness Chief Complaint: Genitourinary History of Present Illness This is a 58 year old female with h/o recurrent complicated uti's, pt has a nephrostomy to right kidney, stent to left ureter and indwelling mei catheter, states for 2 days right flank pain, n/v, and generalized weakness. she states these are the same symptoms with uti's in the past. dr driss tan is pt's urologist. Historian: Patient Arrival Mode: Car Onset (how long ago): day(s) (2) Location: right flank Quality: pain, n/v, wekaness Radiation: non-radiation Severity: mild Onset quality: gradual Duration (how long): day(s) (2) Progression: worsening Chronicity: recurrent Context: recent illness (recurrent uti's) Relieving factors: none Exacerbating factors: none Associated symptoms: malaise, nausea/vomiting, weakness Treatments prior to arrival: none Past Medical/Family History Physician Review I have reviewed the patient's past medical and family history. Any updates have been documented here. 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 Past Surgical History: None Other Surgery: R nephrostomy kidney stents X2 Social History Smoking Cessation: Never Smoker Alcohol Use: None Any Illegal Drug Use: No Family History Family history of heart diseas: No Other Last Tetanus: OOD Review of Systems Review of Systems Constitutional: malaise, weakness EENTM: no symptoms Cardiovascular: no symptoms Respiratory: no symptoms Gastrointestinal: nausea, vomiting Genitourinary: no symptoms, other (right flank pain) Musculoskeletal: no symptoms Neurological: no symptoms Psychological: no symptoms Endocrine: no symptoms Hematological/Lymphatic: no symptoms Review of other systems All other systems reviewed and negative. Physical Exam Related Data Allergies: Coded Allergies: meropenem (Verified Allergy, Unknown, REDNESS, ITCHING, 06/04/19) Triage Vital Signs Vital Signs Date Time Temp Pulse Resp B/P (MAP) Pulse Ox O2 Delivery O2 Flow Rate FiO2 07/04/19 20:22 99.1 96 17 174/120 97 Vital signs reviewed: Yes Physical Exam CONSTITUTIONAL Constitutional: well-developed, well-nourished HENT HENT: normocephalic, atraumatic, oropharynx clear/moist, nose normal HENT L/R: left ext ear normal, right ext ear normal EYES Eyes: PERRL, conjunctivae normal NECK Neck: ROM normal PULMONARY Pulmonary: effort normal, breath sounds normal CARDIOVASCULAR Cardiovascular: regular rhythm, heart sounds normal, capillary refill normal, normal rate GASTROINTESTINAL Abdominal: soft, nontender, bowel sounds normal, right CVA tenderness (mild, nephrostomy present with mildly cloudy urine in bag) GENITOURINARY Genitourinary: other (indwelling mei cath present with cloudy urine in bag) SKIN Skin: warm, dry MUSCULOSKELETAL Musculoskeletal: ROM normal NEUROLOGICAL Neurological: alert, oriented x 3, no gross motor or sensory deficits PSYCHOLOGICAL Psychological: mood/affect normal, judgement normal Results Laboratory Laboratory Laboratory Tests Test 07/04/19 20:35 07/04/19 20:30 07/04/19 20:15 Lactic Acid Level 1.8 mmol/L (0.5-2.0) Urine Color Yellow (YELLOW) Urine Clarity Cloudy (CLEAR) Urine pH 6 (5 - 7) Urine Specific Nelson 1.030 (1.010-1.025) Urine Protein >=300 (NEGATIVE) Urine Glucose (UA) Negative (NEGATIVE) Urine Ketones 1+ (NEGATIVE) Urine Blood Moderate (NEGATIVE) Urine Nitrite Negative (NEGATIVE) Urine Bilirubin Small (NEGATIVE) Urine Urobilinogen 0.2 mg/dL (0.2 - 1) Urine Leukocyte Esterase Small (NEGATIVE) Urine RBC 11-20 /HPF (0-5) Urine WBC 11-20 /HPF (0-5) Urine Epithelial Cells None /LPF (NONE) Urine Bacteria Many /HPF (NONE) White Blood Count 11.46 x10e3/uL (4.8-10.8) Red Blood Count 4.54 x10e6/uL (3.6-5.1) Hemoglobin 11.1 g/dL (12.0-16.0) Hematocrit 36.0 % (34.2-44.1) Mean Corpuscular Volume 79.3 fL (81-99) Mean Corpuscular Hemoglobin 24.4 pg (28-32) Mean Corpuscular Hemoglobin Concent 30.8 g/dL (31-35) Red Cell Distribution Width 14.9 % (11.7-14.4) Platelet Count 362 x10e3/uL (140-360) Neutrophils (%) (Auto) 69.8 % (38.7-80.0) Lymphocytes (%) (Auto) 23.1 % (18.0-39.1) Monocytes (%) (Auto) 5.6 % (4.4-11.3) Eosinophils (%) (Auto) 0.6 % (0.0-6.0) Basophils (%) (Auto) 0.4 % (0.0-1.0) Neutrophils # (Auto) 8.0 (2.1-6.9) Lymphocytes # (Auto) 2.7 (1.0-3.2) Monocytes # (Auto) 0.6 (0.2-0.8) Eosinophils # (Auto) 0.1 (0.0-0.4) Basophils # (Auto) 0.1 (0.0-0.1) Absolute Immature Granulocyte (auto 0.06 x10e3/uL (0-0.1) Prothrombin Time 12.7 seconds (11.9-14.5) Prothromb Time International Ratio 0.90 Activated Partial Thromboplast Time 28.6 seconds (23.8-35.5) Sodium Level 138 mmol/L (136-145) Potassium Level 3.7 mmol/L (3.5-5.1) Chloride Level 104 mmol/L (98-107) Carbon Dioxide Level 20 mmol/L (22-29) Anion Gap 17.7 mmol/L (8-16) Blood Urea Nitrogen 19 mg/dL (7-26) Creatinine 1.40 mg/dL (0.57-1.11) Estimat Glomerular Filtration Rate 39 ML/MIN (60-) BUN/Creatinine Ratio 14 (6-25) Glucose Level 142 mg/dL (74-118) Calcium Level 9.9 mg/dL (8.4-10.2) Total Bilirubin 0.4 mg/dL (0.2-1.2) Aspartate Amino Transf (AST/SGOT) 21 IU/L (5-34) Alanine Aminotransferase (ALT/SGPT) 19 IU/L (0-55) Alkaline Phosphatase 125 IU/L (40-150) Total Protein 9.2 g/dL (6.5-8.1) Albumin 3.8 g/dL (3.5-5.0) Globulin 5.4 g/dL (2.3-3.5) Albumin/Globulin Ratio 0.7 (0.8-2.0) Lab results reviewed: Yes Critical Care Time Subsequent provider I assumed direction of critical care for this patient from another provider of my specialty. Assessment & Plan Assessment & Plan Final Impression: (1) UTI (urinary tract infection) due to urinary indwelling catheter (2) Complicated UTI (urinary tract infection) (3) Nephrostomy complication (4) Pyelonephritis Assessment & Plan pt with recurrent complicated uti's, right nephrostomy,left ureteral stent and indwelling mei cath with right flank pain, n/v, weakness ua from nephrostomy and a ua from indwelling mei port sent, urine cultures for both also ordered, cbc, cmp, pt/ptt, lactic acid, blood cultures ordered to eval for uti, electrolyte abnormality, renal insufficiency, sepsis, leukocytosis zofran 4 mg iv ordered PT WITH INFECTION IN URINE SAMPLES FROM MEI AND NEPHROSTOMY I SPOKE WITH DR CARD AND DR TAN ADMIT TO INPATIENT Last Vital Signs Date Time Temp Pulse Resp B/P (MAP) Pulse Ox O2 Delivery O2 Flow Rate FiO2 07/04/19 20:22 99.1 96 17 174/120 97 Home Meds Reported Medications Hydrocodone Bit/Acetaminophen (NORCO 7.5-325 TABLET) 1 Each Tablet, 1 TAB PO Q8H PRN for PAIN, #30 TAB 5/2/20 Cefuroxime Axetil (CEFUROXIME) 500 Mg Tablet, 500 MG PO BID, #20 5/2/20 Sennosides/Docusate Sodium (SENOKOT-S TABLET) 1 Each Tablet, 1 TAB PO BID, #60 TAB 1 Refill 5/2/20 Amlodipine Besylate (NORVASC) 5 Mg Tab, 5 MG PO DAILY, #30 TAB 1 Refill 5/2/20 Metoprolol Tartrate (LOPRESSOR) 25 Mg Tab, 50 MG PO BID, #60 TAB 1 Refill 5/2/20 Ondansetron Hcl (ZOFRAN) 8 Mg Tablet, 4 MG SL Q4HR PRN for NAUSEA AND VOMITING, #30 1 Refill 5/2/20 Glipizide (GLIPIZIDE ER) 5 Mg Tab.er.24, 2.5 MG PO DAILY, #30 1 Refill 06/11/19 Buspirone Hcl (BUSPIRONE HCL) 10 Mg Tablet, 10 MG PO BID PRN for ANXIETY 07/30/18 IRMA KINNEY MD July 04, 2019 20:43
[2019-07-04 21:13] LABS: BASOPHILS # (AUTO) 0.1 (0.0-0.1); BASOPHILS % 0.4 % (0.0-1.0); EOSINOPHILS # (AUTO) 0.1 (0.0-0.4); EOSINOPHILS % 0.6 % (0.0-6.0); HEMOGLOBIN 11.1 g/dL (12.0-16.0); LYMPHOCYTES # (AUTO) 2.7 (1.0-3.2); LYMPHOCYTES % 23.1 % (18.0-39.1); MEAN CORPUSCULAR HEMOGLOBIN 24.4 pg (28-32); MEAN CORPUSCULAR HGB CONC 30.8 g/dL (31-35); MEAN CORPUSCULAR VOLUME 79.3 fL (81-99); MONOCYTES # (AUTO) 0.6 (0.2-0.8); MONOCYTES % 5.6 % (4.4-11.3); NEUTROPHILS % 69.8 % (38.7-80.0); PLATELET COUNT 362 x10e3/uL (140-360); RED BLOOD COUNT 4.54 x10e6/uL (3.6-5.1); RED CELL DISTRIBUTION WIDTH 14.9 % (11.7-14.4)
[2019-07-04 21:20] LABS: CLARITY,URINE CLOUDY (CLEAR); COLOR,URINE YELLOW (YELLOW); KETONES,URINE 1+ (NEGATIVE); LEUKOCYTE ESTERASE ,URINE SMALL (NEGATIVE); NITRITE,URINE NEGATIVE (NEGATIVE); PROTEIN,URINE DIPSTICK >=300 (NEGATIVE)
[2019-07-04 21:21] LABS: BILIRUBIN,URINE SMALL (NEGATIVE); CLARITY,URINE CLOUDY (CLEAR); COLOR,URINE OTHER (YELLOW); LEUKOCYTE ESTERASE ,URINE LARGE (NEGATIVE); NITRITE,URINE NEGATIVE (NEGATIVE); PROTEIN,URINE DIPSTICK >=300 (NEGATIVE); URINE UROBILINOGEN 0.2 mg/dL (0.2 - 1)
[2019-07-04 21:22] LABS: BILIRUBIN,URINE NEGATIVE (NEGATIVE); KETONES,URINE NEGATIVE (NEGATIVE); URINE UROBILINOGEN 0.2 mg/dL (0.2 - 1)
[2019-07-04 21:24] LABS: INR 0.9; PARTIAL THROMBOPLASTIN TIME 28.6 seconds (23.8-35.5); PROTHROMBIN TIME 12.7 seconds (11.9-14.5)
[2019-07-04 21:30] LABS: BACTERIA,URINE MANY /HPF; WBC,URINE (MAN) >50 /HPF (0-5)
[2019-07-04 21:31] LABS: BACTERIA,URINE MANY /HPF
[2019-07-04 21:33] LABS: ALBUMIN 3.8 g/dL (3.5-5.0); ALBUMIN/GLOBULIN RATIO 0.7 (0.8-2.0); ANION GAP 17.7 mmol/L (8-16); CALCIUM 9.9 mg/dL (8.4-10.2); CREATININE, SERUM 1.4 mg/dL (0.57-1.11); POTASSIUM 3.7 mmol/L (3.5-5.1)
[2019-07-04] MEDS ORDERED: SODIUM CHLORIDE 0.9% 1000ML 1,000 ML IV ONE (21:45)
[2019-07-04] MEDS ORDERED: ACETAMINOPHEN 325 MG TAB PO PRN (21:45)
--- OUTSIDE RECORDS SUMMARY | 2019-07-04 21:53 | XMS REPORT | Clinical Summary ---
Author Author [facility] Organization [facility] Address Unknown Phone Unavailable Care Team Providers Care Minister Assistant Name Role Phone PCP Unavailable Allergies Comments [...] ot Implanted Type Area Manufactur er 05/10/2016 [id number] / / [id number] Implant Gu Stent [employer] Stent Right: Cook Double Pigtail 7fr X 24cm [id number] - Kidney(s) [id number] Implanted: Qty: 1 on 09/07/2013 by Kelby Steen [facility]identMD at [facility] Results Not on fileafter 07/03/2018 Insurance Type Payer Benefit Subscriber ID Effective Phone Address Plan / Dates Group BC/BS BCBS HMO xxxxxxxxxxxx 2014-P [phone] [address] [id number] [facility] [place] [id number] Advance Directives Date Inactivated Comments Code Status Date Activated 09/17/2014 6:47 PM Full Code 09/14/2014 4:06 AM 06/17/2013 4:20 PM Full Code 06/11/2013 11:43 PM 04/24/2013 1:19 AM Full Code 04/23/2013 6:29 AM 10/30/2012 4:29 PM Full Code 10/29/2012 6:24 AM 02/18/2011 10:06 PM Full Code 02/15/2011 10:55 PM
--- OUTSIDE RECORDS SUMMARY | 2019-07-04 21:53 | XMS REPORT | Continuity of Care Document ---
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 PAIN Active 03/09/2015 [facility] Discharge Diagnosis: Urinary tract infec tion, site not specified 02/15/2015 02/18/2015 [facility] WEAKNESS Active 02/15/2015 [facility] Methicillin resistant Staphylococcus aureus (organism) Active Problem 03/12/2015 Problem added by Ashanti burr Expert. [facility] Medications Medication Details Route Status Patient Instructions Ordering Provider Order Date Source Ativan 1 mg, Route: PO, Drug f orm: TAB, ONCE, Dosing Weight 86.364, kg, Priority: STAT, Start date: 03/09/15 23:44:00, Stop date: 03/09/15 23:44:00 No Longer Active 03/10/2015 [facility] tramadol hydrochloride 50 MG Oral Tablet 50 mg = 1 tab, PO, BID, X 15 day, # 30 tab, 0 Refill(s) Active 03/10/2015 [facility] tramadol hydrochloride 50 MG Oral Tablet [Ultram] 1 - 2 tabs, PO, Q4-6H, PRN as needed for pain, X 7 day, # 12 tab, 0 Refill(s) Active 02/16/2015 [facility] Sulfamethoxazole 800 MG / Trimethoprim 1 60 MG Oral Tablet [Bactrim] 1 tab, PO, BID, # 20 tab, 0 Refill(s) Active 02/16/2015 [facility] Rocephin 1 gm, Route: IM, ONCE , Dosing Weight 84.091, kg, Start date: 02/15/15 17:48:00, Stop date: 02/15/15 17:48:00 Inactive 02/15/2015 [facility] Ondansetron Notes: (Same as: Dennise bowles) MEDICATION WASTE Product Size: 4 mg Product Wasted: ___ mg Inactive 02/15/2015 [facility] Sodium Chloride 0.154 MEQ/ML Injectable Solution 1,000 mL, 1000 ml/hr, Infuse Over: 1 hr, Route: IV, 1,000, Drug form: INJ, ONCE, Priority: STAT, Dosing Weight 84.091 kg, Start date: 02/15/15 15:36:00, Duration: 1 doses or times, Stop date: 02/15/15 15:36:00 Inactive 02/15/2015 [facility] Saline Flush 0.9% Notes: Same as: BD Posiflush Sterile Inactive 02/15/2015 [facility] Allergies, Adverse Reactions, Alerts Substance Category Reaction Severity Reaction type Status Date Reported Comments Source diphenhydrAMINE Assertion Drug allergy Active [facility] Immunizations No Data Provided for This Section Results Order Name Results Value Reference Range Date Interpretation Comments Source URINE AND STOOL UA Urobilinogen <=1.0 mg/dL 0.1 - 1.0 02/15/2015 [facility] URINE AND STOOL UA Protein 100 mg/dL Negative mg/dL 02/15/2015 [facility] URINE AND STOOL UA Glucose Negative mg/dL Negative mg/dL 02/15/2015 [facility] URINE AND STOOL UA Ketones Negative mg/dL Negative mg/dL 02/15/2015 [facility] URINE AND STOOL UA Bili Negative *NA* (02/15/15 4:54 PM) Negative 02/15/2015 [facility] URINE AND STOOL UA Blood Moderate *ABN* (02/15/15 4:54 PM) Negative 02/15/2015 [facility] URINE AND STOOL UA Nitrite Positive *ABN* (02/15/15 4:54 PM) Negative 02/15/2015 [facility] URINE AND STOOL UA Leuk Est Large *ABN* (02/15/15 4:54 PM) Negative 02/15/2015 [facility] URINE AND STOOL UA Sq Epi Few /LPF Few /LPF 02/15/2015 [facility] URINE AND STOOL UA WBC >182 0 - 5 02/15/2015 [facility] URINE AND STOOL UA RBC 155 0 - 2 02/15/2015 [facility] URINE AND STOOL UA Bacteria Many /HPF None Seen /HPF 02/15/2015 [facility] URINE AND STOOL UA WBC Cast 34 <=0 /LPF 02/15/2015 [facility] URINE AND STOOL UA Mucus Few /LPF None Seen /LPF 02/15/2015 [facility] URINE AND STOOL UA Color Yellow *NA* (02/15/15 4:54 PM) Yellow 02/15/2015 [facility] URINE AND STOOL UA Turbidity Marked *ABN* (02/15/15 4:54 PM) Clear 02/15/2015 [facility] URINE AND STOOL UA pH 5.0 5.0 - 8.0 02/15/2015 [facility] URINE AND STOOL UA Spec Grav 1.018 <=1.030 02/15/2015 [facility] CHEM PANEL A/G Ratio 0.6 0.7 - 1.6 02/15/2015 [facility] CHEM PANEL Globulin 5.8 2.0 - 4.0 02/15/2015 [facility] CHEM PANEL B/C Ratio 12 6 - 25 02/15/2015 [facility] CHEM PANEL AGAP 12.6 10.0 - 20.0 02/15/2015 [facility] CHEM PANEL Alk Phos 115 39 - 136 02/15/2015 [facility] CHEM PANEL AST 28 0 - 37 02/15/2015 [facility] CHEM PANEL Bili Total 0.3 0.2 - 1.3 02/15/2015 [facility] CHEM PANEL eGFR 73 02/15/2015 Result Comment: [...] should be multiplied by the estimated BMI. [facility] CHEM PANEL ALT 25 0 - 65 02/15/2015 [facility] CHEM PANEL Albumin Lvl 3.4 3.5 - 5.0 02/15/2015 [facility] CHEM PANEL Total Protein 9.2 6.4 - 8.4 02/15/2015 [facility] CHEM PANEL Calcium Lvl 9.1 8.5 - 10.5 02/15/2015 [facility] CHEM PANEL CO2 26 24 - 32 02/15/2015 [facility] CHEM PANEL Sodium Lvl 140 135 - 145 02/15/2015 [facility] CHEM PANEL Chloride Lvl 106 95 - 109 02/15/2015 [facility] CHEM PANEL Potassium Lvl 4.6 3.5 - 5.1 02/15/2015 [facility] CHEM PANEL Creatinine Lvl 0.91 0.50 - 1.40 02/15/2015 [facility] CHEM PANEL BUN 11 7 - 22 02/15/2015 [facility] CHEM PANEL Glucose Lvl 118 70 - 99 02/15/2015 [facility] ENDOCRINOLOGY S Preg Ne gative *NA* (02/15/15 4:40 PM) Negative 02/15/2015 [facility] HEMATOLOGY Lymphocytes 32.8 20.0 - 40.0 02/15/2015 [facility] HEMATOLOGY Segs 60.0 45.0 - 75.0 02/15/2015 [facility] HEMATOLOGY Eosinophils # 0.2 0.0 - 0.5 02/15/2015 [facility] HEMATOLOGY Basophils # 0.2 0.0 - 0.2 02/15/2015 [facility] HEMATOLOGY Monocytes 4.6 2.0 - 12.0 02/15/2015 [facility] HEMATOLOGY Eosinophils 1.2 0.0 - 4.0 02/15/2015 [facility] HEMATOLOGY Basophils 1.4 0.0 - 1.0 02/15/2015 [facility] HEMATOLOGY Segs-Bands # 7.3 1.5 - 8.1 02/15/2015 [facility] HEMATOLOGY Monocytes # 0.6 0.0 - 0.8 02/15/2015 [facility] HEMATOLOGY Lymphocytes # 4.0 1.0 - 5.5 02/15/2015 [facility] HEMATOLOGY Plt Morph Clump ed (02/15/15 4:40 PM) 02/15/2015 [facility] HEMATOLOGY RBC Morph Emily l (02/15/15 4:40 PM) 02/15/2015 [facility] HEMATOLOGY MPV 8.7 7.4 - 10.4 02/15/2015 [facility] HEMATOLOGY WBC 12.0 3.7 - 10.4 02/15/[address] [facility] RBC 4.90 4.20 - 5.40 02/15/2015 [facility] HEMATOLOGY Hct 39.0 36.0 - 48.0 02/15/2015 [facility] HEMATOLOGY MCV 79.7 80.0 - 98.0 02/15/2015 [facility] HEMATOLOGY Hgb 12.0 12.0 - 16.0 02/15/2015 [facility] HEMATOLOGY RDW 14.8 11.5 - 14.5 02/15/2015 [facility] HEMATOLOGY MCHC 30.8 32.0 - 36.0 02/15/2015 [facility] HEMATOLOGY Platelet 220 133 - 450 02/15/2015 [facility] HEMATOLOGY MCH 24.5 27.0 - 31.0 02/15/2015 [facility] Pathology Reports No Data Provided for This Section Diagnostic Reports No Data Provided for This Section Consultation Notes No Data Provided for This Section Discharge Summaries No Data Provided for This Section History and Physicals No Data Provided for This Section Vital Signs Vital Sign Value Date Comments Source Weight 86.364 03/10/2015 [facility] Temperature Oral (F) 97.9 F 03/10/2015 [facility] Respitory Rate 18 03/10/2015 [facility] Heart Rate 91 03/10/2015 [facility] Systolic (mm Hg) 140 03/10/2015 [facility] Diastolic (mm Hg) 99 03/10/2015 [facility] Temperature Oral (F) 98.4 F 02/16/2015 [facility] Respitory Rate 18 02/16/2015 [facility] Heart Rate 97 02/16/2015 [facility] Systolic (mm Hg) 142 02/16/2015 [facility] Diastolic (mm Hg) 82 02/16/2015 [facility] Systolic (mm Hg) 147 02/15/2015 [facility] Diastolic (mm Hg) 93 02/15/2015 [facility] Weight 84.091 02/15/2015 [facility] BMI Calculated 36.21 02/15/2015 [facility] Height 152.4 cm 02/15/2015 [facility] Heart Rate 76 02/15/2015 [facility] Respitory Rate 18 02/15/2015 [facility] Temperature Oral (F) 98.1 F 02/15/2015 [facility] Encounters Location Location Details Encounter Type Encounter Number Reason For Visit Attending Provider ADM Date DC Date Status Source [facility] [id number] Ceeандрей Feliz 02/15/2015 02/16/2015 [facility] [id number] Kelby Lyons 03/10/2015 03/10/2015 [facility] Procedures No Data Provided for This Section Assessment and Plan No Data Provided for This Section Plan of Care No Data Provided for This Section Social History Social History Date Source Social History TypeResponse Smoking Status Never smoker; Exposure to Tobacco Smoke None; Cigarette Smoking Last 365 Days No; Reg Smoking Cessation Counseling No 03/10/2015 [facility] Family History No Data Provided for This Section Advance Directives No Data Provided for This Section Functional Status No Data Provided for This Section
--- OUTSIDE RECORDS SUMMARY | 2019-07-04 21:54 | XMS REPORT ---
Author Author [facility] t Organization [facility] Address [address] [place] [address] Phone Unavailable Support Name Relationship Address Phone JAN ASHER, VIKY Caregiver [address] [place], [place] [id number] JAN ASHER, VIKY Caregiver [address] [place] [address] KAMILLE MCKAY Caregiver Unknown Unavailable NONSTAFF Caregiver Unknown Unavailable MARY KAY ASHER, Tova HILL Caregiver [address] [place] [address] Unavailable LALA HUTCHINSON Next Of Kin [address] [place] [address] MILLICENT Knowles, KEVIN Caregiver [address] [place] [address] FOUZIA ASHER, Tova SO Caregiver [address] [place] [address] Unavailable Sosa ROCHE MD Caregiver [address] [place] [address] Unavailable Tana KINNEY MD Caregiver [address] [facility] [address] [place] [address] Unavailable SRIRAM ASHRE, Tova VASQUEZ Caregiver [address] [place] [address] Unavailable JOSE A HUTCHINSON Next Of Kin [address] [place] [address] MD FIGUEROA CARD MD Caregiver [address] [place] [address] RENAY RANDHAWA Caregiver Unknown CAMMIE ASHER, S LUZ MARINA Caregiver [address] [place] [address] Unavailable RENAY HUGO Caregiver Unknown Unavailable Sosa GUIDRY MD Caregiver [address] [place] [address] Unavailable RENAY THOMAS Caregiver Unknown TASHA ASHER, RENAY Caregiver Unknown Unavailable FITO ANTHONY Caregiver [address] [place] [address] GAYATRI ASHER MD RENAY Caregiver Unknown GREGORIA ASHER, Tana IRMA Caregiver [address] [place] [address] MARY KAY ASHER, Tova LAISEBAS Caregiver [address] [place] [address] RADHA MYERS LUZ MARINA Caregiver [address] [place] [address] MD Tova MUÑIZ LAIRD PRS [address] [place] [address] Lala Hutchinson ECON [address] [place] [address] Jose A Hutchinson ECON [address] [place] [address] Care Team Providers Care Bond Analyst Name Role Phone NONSTAFF PCP Unavailable FIGUEROA [...] Expiration Date Shayna miller [employer] [id number] 2018 00:00:00 [facility] [employer] [id number] 2018 00:00:00 [facility] [employer] [id number] [facility] [employer] [id number] 2018 00:00:00 [facility] [employer] [id number] 2018 00:00:00 [facility] [employer] [id number] 2018 00:00:00 [facility] [employer] [id number] 2018 00:00:00 [facility] [employer] [id number] 2018 00:00:00 [facility] [employer] [id number] 2018 00:00:00 [facility] [employer] [id number] 2018 00:00:00 [facility] [employer] [id number] 2018 00:00:00 [facility] [employer] [id number] 2018 00:00:00 [facility] [employer] [id number] 2017 00:00:00 [facility] [employer] [id number] 2017 00:00:00 [facility] [employer] [id number] 2017 00:00:00 [facility] [employer] [id number] 2017 00:00:00 [facility] [employer] [id number] 2017 00:00:00 [facility] [employer] [id number] 2017 00:00:00 [facility] [employer] [id number] 2017 00:00:00 [facility] [employer] [id number] 2017 00:00:00 [facility] [employer] [id number] 2017 00:00:00 [facility] [employer] [id number] 2017 00:00:00 [facility] Advance Directives Directive Decision Effective Date Termination Date Comments Sour ce Yes N/A [facility] Problems Condition Name Condition Details Condition Category Status Onset Date Resolution Date Last Treatment Date Treating Clinician Comments Source Complicated urinary tract infection UTI (urinary tract infection ) Problem Active 2015-10-11 00:00:00 [facility] GEN. PAIN GEN. PAIN Active 03/09/2015 [facility] Active 2015-03-09 00:00:00 2015-10-25 22:11:00 [facility] WEAKNESS WEAK NESS Active 02/15/2015 [facility] Diagnosis Active 2015-02-15 00:00:00 2015-02-15 16:11:00 [facility] BMI 36.0-36.9,adult BMI 36.0-36.9,adult Disease Active 2013-08-03 00:00 :00 Overview: Obese [facility] Obese Obese Disease Active 2013-08-03 00:00:00 [facility] Complicated UTI (urinary tract infection) Complicated UTI (urinary tract infection) Disease Active 2013-06-14 00:00:00 [facility] Hematuria Hematuria Disease Active 2013-06-11 00:00:00 [facility] Fatigue Fatigue Disease Active 2012-06-02 00:00:00 [facility] Myalgia Myalgia Disease Active 2012-06-02 00:00:00 [facility] Fever Fever Disease Active 2012-06-02 00:00:00 [facility] UTI (lower urinary tract infection) UTI (lower urinary tract inf ection) Disease Active 2011-12-10 00:00:00 [facility] Hydronephrosis, right Hydronephrosis, right Disease Active 201 03-12-07 00:00:00 [facility] Flank pain Flank pain Disease Active 2011-02-15 00:00:00 [facility] Pyelonephritis Pyelonephritis Disease Active 2011-02-15 00:00:00 [facility] Cough Cough Disease Active 2010-05-16 00:00:00 [facility] Colitis Colitis Problem Active [facility] Hypokalemia Hypokalemia Problem Active [facility] Obstruction of urinary tract Urinary obstruction Problem Active [facility] Nephrostomy status Nephrostomy status Problem Active [facility] Complication of nephrostomy Nephrostomy complication Problem Active [facility] Urinary tract infection due to Enterococcus UTI (urina ry tract infection) due to Enterococcus Problem Active [facility] Urinary tract infection associated with catheterizatio n of urinary tract UTI (urinary tract infection) due to urinary indwelling catheter Problem Active [facility] Abdominal pain Abdominal pain Problem Active [facility] 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 Problem [facility] Methicillin resistant Staphylococcus aureus (organism) Methicillin resistant Staphylococcus aureus (organism) Active Problem 03/12/2015 Problem added by Discern Expert. 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 03/09/2015 03/12/2015 [facility] Problem 2015-03-09 06:00:00 2015-03-12 06:01:38 2015-03-12 06:01:38 [facility] Discharge Diagnosis: Urinary tract infection, site not specified Discharge Diagnosis: Urinary tract infection, site not specified 02/15/2015 02/18/2015 [facility] Problem 2015-02-15 06:00:00 2015 06:06:10 2015-02-18 06:06:10 [facility] Allergies, Adverse Reactions, Alerts Allergy Name Allergy Type Status Severity Reaction(s) Onset Date Inacti ve Date Treating Clinician Comments Source Meropenem Allergy to substance Active REDNESS, ITCHING 00:00:00 [facility] Diphenhydramine Propensity to adverse reactions to drug Active Other 2008-12-28 00:00:00 BECAME ANXIOUS AND FELT STRA NGE [facility] diphenhydrAMINE diphenhydrAMINE Active [facility] Family History Family Member Diagnosis Comments Start Date Stop Date Source Natural father Diabetes Iraheta [facility] Social History Social Habit Start Date Stop Date Quantity Comments Source Sex Assigned At [facility] Alcohol intake 2014-09-14 00:00:00 2014-09-14 00:00:00 [facility] Smoking Status Start Date Stop Date Source Never smoker [facility] Medications Ordered Medication Name Filled Medication Name Start Date Stop Da te Current Medication? Ordering Clinician Indication Dosage Frequency Signature (SIG) Comments Components Source Acetaminophen Acetaminophen 2016-12-31 09:47:00 2018-01-08 00:00:00 No 650 [facility] Acetaminophen/Codeine Phosphate (Tylenol # 3*) 1 Ea TA B Acetaminophen/Codeine Phosphate (Tylenol # 3*) 1 Ea TAB 2016-12-31 09:47:00 2018-01-08 00:00:00 No 2 [facility] Meropenem (Merrem) 500 Mg INJ Meropenem (Merrem) 500 Mg INJ 2016 09:47:00 2017-12-15 00:00:00 No 500 [facility] Lisinopril Lisinopril 2016-11-06 12:33:00 2018-01-08 00:00:00 No 2.5 [facility] Metformin Hcl Metformin Hcl 2016-11-06 12:33:00 2016-12-28 00:00:00 No 500 [facility] Fluconazole Fluconazole 2016-09-13 10:56:00 2016-11-03 00:00:00 No 200 [facility] Levofloxacin (Levaquin) 500 Mg TABLET Levofloxacin (Levaquin ) 500 Mg TABLET 2016-09-13 10:56:00 2016-11-03 00:00:00 No 500 [facility] Sulfamethoxazole/Trimethoprim (Bactrim Ds Tablet) 1 Ea ch TABLET Sulfamethoxazole/Trimethoprim (Bactrim Ds Tablet) 1 Each TABLET 2016-09-13 10:56:00 2016-11-03 00:00:00 No 1 [facility] Ativan 2015-03-10 05:44:00 No 1 mg, Route: PO, Drug form: TAB, ONCE, Dosing Weight 86.364, kg, Priority: STAT, Start date: 03/09/15 23:44:00, Stop date: 03/09/15 23:44:00 [facility] tramadol hydrochloride 50 MG Oral Tablet 2015-03-10 05:43:00 Yes 50 mg = 1 tab, PO, BID, X 15 day, # 30 tab, 0 Refill(s) [facility] tramadol hydrochloride 50 MG Oral Tablet [Ultram] 2015-02-16 01:10:00 Yes 1 - 2 tabs, PO, Q4-6 H, PRN as needed for pain, X 7 day, # 12 tab, 0 Refill(s) [facility] Sulfamethoxazole 800 MG / Trimethoprim 160 MG Oral Tablet [B actrim] 2015-02-16 01:09:00 Yes 1 tab, PO, BID, # 20 tab, 0 Refill(s) [facility] Rocephin 2015-02-15 23:48:00 No 1 gm, Route: IM, ONCE, Dosing Weight 84.091, kg, Start date: 02/15/15 17:48:00, Stop date: 02/15/15 17:48:00 [facility] Ondansetron 2015-02-15 21:36:00 No Notes: (Same as: [facility]) MEDICATION WASTE Product Size: 4 mg Product Wasted: ___ mg [facility] Sodium Chloride 0.154 MEQ/ML Injectable Solution 2015-02-15 21:3 6:00 No 1,000 mL, 1000 ml/hr, Infuse Over: 1 hr, Route: IV, 1,000, Drug form: INJ, ONCE, Priority: STAT, Dosing Weight 84.091 kg, Start date: 02/15/15 15:36:00, Duration: 1 doses or times, Stop date: 02/15/15 15:36:00 [facility] Saline Flush 0.9% 2015-02-15 21:36:00 No Notes: Same as: BD Posiflush Sterile [facility] traMADol (ULTRAM) 50 mg tablet 2014-09-17 16:46:57 Yes 50mg Take 50 mg by mouth as needed. [facility] acetaminophen (TYLENOL) 325 mg tablet 2014-09-17 16:46:57 Y es 650mg Take 650 mg by mouth every 6 hours as needed. [facility] metFORMIN (GLUCOPHAGE) 500 mg tablet 2014-09-17 16:46:57 Ye s 500mg Take 500 mg by mouth 2 times daily (with meals). [facility] fenofibrate nanocrystallized (TRICOR) 145 mg tablet 09-17 16:46:57 Yes 145mg QD Take 145 mg by mouth daily. [facility] lisinopril (PRINIVIL, ZESTRIL) 2.5 mg tablet 2014-09-17 16:46:57 Yes 2.5mg QD Take 2.5 mg by mouth daily. [facility] atorvastatin (LIPITOR) 20 mg tablet 2014-09-17 16:46:57 Yes 20mg Take 20 mg by mouth at bedtime nightly. [facility] HYDROcodone-acetaminophen (NORCO) 10-325 mg tablet 2013-08 00:00:00 Yes Pyelonephritis 1{tbl} Take 1 tablet by mouth every 6 hours as needed for Pain. [facility] cyclobenzaprine (FLEXERIL) 10 mg tablet 2012-11-22 00:00:00 Yes Flank Pain 10mg Take 1 tablet by mouth 2 times daily as needed for Muscle Spasms. [facility] flavoxate (URISPAS) 100 mg tablet 2011-12-17 00:00:00 Yes Hydronephrosis, right 100mg Take 1 tablet by mouth 3 times daily as needed (dysuria). [facility] tamsulosin (FLOMAX) 0.4 mg extended release capsule 10-01 00:00:00 Yes Hydronephrosis .4mg QD Take 1 capsule by mouth daily. [facility] famotidine (PEPCID) 20 mg tablet 2011-02-18 00:00:00 Yes GERD (gastroesophageal reflux disease) 20mg Q.5D Take 1 Tab by mouth 2 times daily. [facility] oxybutynin (DITROPAN) 5 mg tablet 2009-12-17 00:00:00 Yes Ureteral stricture 5mg Take 1 Tab by mouth 3 times daily. For bladder spasms [facility] doxazosin (CARDURA) 2 mg tablet 2009-12-17 00:00:00 Yes Ureteral stricture 2mg Take 1 Tab by mouth at bedtime. [facility] Amlodipine Besylate (Norvasc) 5 Mg TAB Amlodipine Besylate (Norv asc) 5 Mg TAB Yes 5 [facility] Buspirone Hcl Buspirone Hcl Yes 10 [facility] Cefuroxime Axetil (Cefuroxime) 500 Mg TABLET Cefuroxim e Axetil (Cefuroxime) 500 Mg TABLET Yes 500 [facility] Glipizide (Glipizide Er) 5 Mg TAB.ER.24 Glipizide (Glipizide Er) 5 Mg TAB.ER.24 Yes 2.5 [facility] Hydrocodone Bit/Acetaminophen ([place] 7.5-325 Tablet) 1 Each TABLET Hydrocodone Bit/Acetaminophen ([place] 7.5-325 Tablet) 1 Each TABLET Yes 1 [facility] Metoprolol Tartrate (Lopressor) 25 Mg TAB Metoprolol T artrate (Lopressor) 25 Mg TAB Yes 50 [facility] Ondansetron Hcl (Zofran) 8 Mg TABLET Ondansetron Hcl (Zofran) 8 Mg TABLET Yes 4 [facility] Sennosides/Docusate Sodium (Senokot-S Tablet) 1 Each T ABLET Sennosides/Docusate Sodium (Senokot-S Tablet) 1 Each TABLET Yes 1 [facility] Acetaminophen With Codeine (Tylenol With Codeine #3 Ta blet) 1 Each TABLET Acetaminophen With Codeine (Tylenol With Codeine #3 Tablet) 1 Each TABLET 2019-06-11 00:00:00 No 1 [facility] Metoprolol Tartrate Metoprolol Tartrate 2019-06-11 00:00:00 No 25 [facility] Fluconazole Fluconazole 2019-06-04 00:00:00 No 100 [facility] Levofloxacin (Levaquin) 500 Mg TABLET Levofloxacin (Levaquin) 50 0 Mg TABLET 2019-06-04 00:00:00 No 250 [facility] Linezolid (Zyvox) 600 Mg TABLET Linezolid (Zyvox) 600 Mg TABLET 2019-06-04 00:00:00 No 600 [facility] Cephalexin (Keflex) 250 Mg CAPSULE Cephalexin (Keflex) 250 Mg CA PSULE 2019-02-10 00:00:00 No [facility] Chrofloxacin Chrofloxacin 2019-02-10 00:00:00 No 25 [facility] Lisinopril Lisinopril 2019-01-14 00:00:00 No 5 [facility] Dicyclomine Hcl Dicyclomine Hcl 2018-09-30 00:00:00 No 20 [facility] Docusate Sodium (Colace) 100 Mg CAP Docusate Sodium (Colace) 100 Mg CAP 2018-09-30 00:00:00 No 100 [facility] Ondansetron Hcl (Zofran*) 4 Mg TABLET Ondansetron Hcl (Zofran*) 4 Mg TABLET 2018-09-30 00:00:00 No 4 [facility] Buspirone Hcl Buspirone Hcl 2018-07-30 00:00:00 No 10 [facility] Ciprofloxacin Hcl (Cipro) 500 Mg TABLET Ciprofloxacin Hcl (C ipro) 500 Mg TABLET 2018-07-30 00:00:00 No 500 [facility] Acetaminophen With Codeine (Tylenol With Codeine #3 Ta blet) 1 Each TABLET Acetaminophen With Codeine (Tylenol With Codeine #3 Tablet) 1 Each TABLET 2018-07-19 00:00:00 No 1 [facility] Fluconazole (Diflucan) 200 Mg TABLET Fluconazole (Diflucan) 200 Mg TABLET 2018-07-19 00:00:00 No 200 [facility] Ondansetron Hcl Ondansetron Hcl 2018-07-19 00:00:00 No 4 [facility] Cephalexin Monohydrate (Keflex) 500 Mg CAPSULE Cephale ever Monohydrate (Keflex) 500 Mg CAPSULE 2018-05-10 00:00:00 No 500 [facility] Lisinopril Lisinopril 2018-05-06 00:00:00 No 5 [facility] Ondansetron Ondansetron 2018-05-06 00:00:00 No 4 [facility] Ciprofloxacin Hcl (Cipro) 500 Mg TABLET Ciprofloxacin Hcl (C ipro) 500 Mg TABLET 2018-03-26 00:00:00 No 500 [facility] Meropenem Meropenem 2018-01-08 00:00:00 No 1 [facility] Ciprofloxacin Hcl (Cipro) 500 Mg TABLET Ciprofloxacin Hcl (C ipro) 500 Mg TABLET 2017-12-15 00:00:00 No 250 [facility] Fluconazole (Diflucan) 100 Mg TABLET Fluconazole (Diflucan) 100 Mg TABLET 2017-12-15 00:00:00 No [facility] Ciprofloxacin Hcl (Cipro) 500 Mg TABLET Ciprofloxacin Hcl (C ipro) 500 Mg TABLET 2016-12-31 00:00:00 No 250 [facility] Fluconazole (Diflucan) 100 Mg TABLET Fluconazole (Diflucan) 100 Mg TABLET 2016-12-28 00:00:00 No [facility] Metronidazole (Flagyl) 250 Mg TABLET Metronidazole (Flagyl) 250 Mg TABLET 2016-09-07 00:00:00 No 250 [facility] Cranberry/Vit C/L. Sporogenes (Cranberry Tablet) 1 Eac h TABLET Cranberry/Vit C/L. Sporogenes (Cranberry Tablet) 1 Each TABLET 2016-07-24 00:00:00 No 1000 [facility] Atorvastatin Calcium Atorvastatin Calcium 2016-06-10 00:00:00 No 20 [facility] Cefdinir (Omnicef) 300 Mg CAPSULE Cefdinir (Omnicef) 300 Mg CAPS ULE 2016-06-10 00:00:00 No [facility] Cyanocobalamin (Vitamin B-12) (Vitamin B-12) 1,000 Mcg TAB.SUBL Cyanocobalamin (Vitamin B-12) (Vitamin B-12) 1,000 Mcg TAB.SUBL 2016-06-10 00:00:00 N o [facility] Fenofibrate Nanocrystallized (Fenofibrate) 145 Mg TABL ET Fenofibrate Nanocrystallized (Fenofibrate) 145 Mg TABLET 2016-06-10 00:00:00 No [facility] Lisinopril Lisinopril 2016-06-10 00:00:00 No 25 [facility] Amoxicillin/Potassium Clav (Amox Tr-K Clv 875-125 Mg T ab) 1 Each TABLET Amoxicillin/Potassium Clav (Amox Tr-K Clv 875-125 Mg Tab) 1 Each TABLET 2016-01-31 00:00:00 No 1 [facility] Atorvastatin Calcium Atorvastatin Calcium 2016-01-31 00:00:00 No 20 [facility] Cholecalciferol (Vitamin D3) (Vitamin D3) 50,000 Unit CAPSULE Cholecalciferol (Vitamin D3) (Vitamin D3) 50,000 Unit CAPSULE 2016-01-31 00:00:00 No 1 [facility] Cyanocobalamin (Vitamin B-12) 1,000 Mcg TAB Cyanocobal golden (Vitamin B-12) 1,000 Mcg TAB 2016-01-31 00:00:00 No 1000 [facility] Fenofibrate Nanocrystallized (Fenofibrate) 145 Mg TABL ET Fenofibrate Nanocrystallized (Fenofibrate) 145 Mg TABLET 2016-01-31 00:00:00 No 145 [facility] Lisinopril Lisinopril 2016-01-31 00:00:00 No 2.5 [facility] Metformin Hcl Metformin Hcl 2016-01-31 00:00:00 No 500 [facility] Trazodone Hcl Trazodone Hcl 2016-01-31 00:00:00 No 100 [facility] Atorvastatin Calcium Atorvastatin Calcium 2015-11-16 00:00:00 No 20 [facility] Cefdinir (Omnicef) 300 Mg CAPSULE Cefdinir (Omnicef) 300 Mg CAPS ULE 2015-11-16 00:00:00 No 300 [facility] Cyanocobalamin (Vitamin B-12) 1,000 Mcg TAB Cyanocobal golden (Vitamin B-12) 1,000 Mcg TAB 2015-11-16 00:00:00 No 1000 [facility] Fenofibrate Nanocrystallized (Fenofibrate) 145 Mg TABL ET Fenofibrate Nanocrystallized (Fenofibrate) 145 Mg TABLET 2015-11-16 00:00:00 No 1 [facility] Fluconazole (Diflucan) 100 Mg TABLET Fluconazole (Diflucan) 100 Mg TABLET 2015-11-16 00:00:00 No 100 [facility] Lisinopril (Prinavil / Zestril) 20 Mg TABLET Lisinopri l (Prinavil / Zestril) 20 Mg TABLET 2015-11-16 00:00:00 No 25 [facility] Metformin Hcl Metformin Hcl 2015-10-11 00:00:00 No 500 [facility] Tramadol Hcl (Ultram) 50 Mg TABLET Tramadol Hcl (Ultram) 50 Mg T ABLET 2015-10-11 00:00:00 No 50 [facility] Vital Signs Vital Name Observation Time Observation Value Comments Source Body Temperature 2019-06-11 08:25:00 98.5 [degF] [facility] Weight 2019-06-04 15:24:00 198 [lb_av] [facility] BMI (Body Mass Index) 2019-06-04 15:24:00 38.7 kg/m2 [facility] Weight 2015-03-10 02:31:00 [facility] Temperature Oral (F) 2015-03-10 02:31:00 97.9 F [facility] Respitory Rate 2015-03-10 02:31:00 [facility] Heart Rate 2015-03-10 02:31:00 [facility] Systolic (mm Hg) 2015-03-10 02:31:00 [facility] Diastolic (mm Hg) 2015-03-10 02:31:00 [facility] Temperature Oral (F) 2015-02-16 01:28:00 98.4 F [facility] Respitory Rate 2015-02-16 01:28:00 [facility] Heart Rate 2015-02-16 01:28:00 [facility] Systolic (mm Hg) 2015-02-16 01:28:00 [facility] Diastolic (mm Hg) 2015-02-16 01:28:00 [facility] Systolic (mm Hg) 2015-02-15 21:32:00 [facility] Diastolic (mm Hg) 2015-02-15 21:32:00 [facility] Weight 2015-02-15 21:32:00 [facility] BMI Calculated 2015-02-15 21:32:00 [facility] Height 2015-02-15 21:32:00 152.4 cm [facility] Heart Rate 2015-02-15 21:32:00 [facility] Respitory Rate 2015-02-15 21:32:00 [facility] Temperature Oral (F) 2015-02-15 21:32:00 98.1 F [facility] Procedures Procedure Date / Time Performed Performing Clinician [facility] e Computed tomography of brain without radiopaque contrast 2019-05 00:00:[address] [facility] CT of abdomen and pelvis without contrast 2019-06-04 00:00:00 [facility] CHANGE DRAINAGE DEVICE IN KIDNEY, EXTERNAL APPROACH 2019-02-07 0 0:00:00 [facility] CYSTOSCOPY AND TREATMENT 2019-01-17 00:00:00 [facility] CYSTO W/URETER STRICTURE [place] 2019-01-17 00:00:00 [facility] CYSTOSCOPY AND TREATMENT 2018-10-01 00:00:00 [facility] CYSTO W/URETER STRICTURE [place] 2018-10-01 00:00:00 [facility] Plan of Care Planned Activity Planned Date Details Comments Source [facility] Scheduled Test 2019-11-10 00:00:00 IMM Influenza Seas onal Nov to April (>/= 19 yrs) [code = IMM Influenza Seasonal Nov to April (>/= 19 yrs)] [facility] Scheduled Test 2012 00:00:00 Colorectal Cancer Scrn Annual (FIT/FOBT) Age 50 to 75 [code = Colorectal Cancer Scrn Annual (FIT/FOBT) Age 50 to 75] [facility] Scheduled Test 2004-09-04 00:00:00 Breast Cancer Scrn (Yearly) [code = Breast Cancer Scrn (Yearly)] [facility] Scheduled Test 1983-10-08 00:00:00 Cervical Cancer Sc rn (3 Yrs) [code = Cervical Cancer Scrn (3 Yrs)] [facility] Patient referral [code = 9777250 ] [facility] Goal Patient referral [code = 4377554 ] [facility] Goal Patient referral [code = [id number] ] [facility] Goal Patient referral [code = [id number] ] [facility] Goal Patient referral [code = [id number] ] [facility] Goal Patient referral [code = [id number] ] [facility] Goal Patient referral [code = 7778706 ] [facility] Goal Patient referral [code = 6964803 ] [facility] Goal Patient referral [code = [id number] ] [facility] Goal Patient referral [code = [id number] ] [facility] Instructions Echeverria Catheter Care [facility] Instructions Post Operative Pain [facility] Encounters Start Date/Time End Date/Time Encounter Type Admission Type [facility] Care Department Encounter ID Source 2019-06-04 13:17:00 2019-06-11 10:40:00 Discharged Inpatient 1 FIGUEROA CARD [facility] [id number] [facility] 2019-02-24 11:21:00 2019-02-24 20:46:00 Departed Emergency Room 1 LUZ MARINA GARCIA [facility] [id number] [facility] 2019-02-06 08:38:00 2019-02-10 11:48:00 Discharged Inpatient 1 FIGUEROA CARD [facility] [id number] [facility] 2019-01-17 10:39:00 2019-01-17 10:39:00 Registered Surgical Day Car e JARET GAUTHIER [facility] [id number] [facility] 2019-01-12 20:48:00 2019-01-13 00:40:00 Departed Emergency Room [facility] [id number] [facility] 2018-12-14 09:50:00 2018-12-14 12:01:00 Departed Emergency Room [facility] [id number] [facility] 2018-12-02 08:28:00 2018-12-02 08:28:00 Registered Clinic 3 DUNCAN MPEL, [facility] [id number] [facility] 2018-10-31 05:33:00 2018-10-31 06:27:[address] [facility] [id number] [facility] 2018-10-23 12:06:00 2018-10-23 13:42:[address] [facility] [id number] [facility] 2018-10-01 06:19:00 2018-10-01 06:19:00 Registered Surgical Day Car e 3 [facility] [id number] [facility] 2018-09-09 18:21:00 2018-09-13 12:48:00 Discharged Inpatient 1 LIZ MUÑIZ [facility] [id number] [facility] - Patients [facility] 2018-08-06 09:33:00 2018-08-06 09:33:00 Registered Surgical Day Car e 3 [facility] [id number] [facility] 2018-07-30 10:15:00 2018-07-30 11:33:00 Departed Emergency Room [facility] [id number] [facility] 2018-07-19 14:11:00 2018-07-19 19:19:00 Departed Emergency Room [facility] [id number] [facility] 2018-05-29 13:14:00 2018-05-29 19:30:00 Departed Emergency Room 1 LIZ MUÑIZ [facility] [id number] [facility] 2018-05-06 14:04:00 2018-05-10 16:20:00 Discharged Inpatient 1 FIGUEROA CARD [facility] [id number] [facility] 2018-04-07 08:50:00 2018-04-07 08:50:00 Registered Surgical Day Car e JARET GAUTHIER [facility] [id number] [facility] 2018-03-29 15:25:00 2018-03-29 17:05:00 Departed Emergency Room [facility] [id number] [facility] Patients [facility] 2018-03-10 12:32:00 2018-03-10 16:55:00 Departed Emergency Room 1 LUZ MARINA BONDS [facility] [id number] [facility] 2018-02-21 12:46:00 2018-02-21 16:46:00 Departed Emergency Room [facility] [id number] [facility] Patients [facility] 2018-01-09 09:35:00 2018-01-13 16:22:00 Discharged Inpatient [facility] [id number] [facility] 2017-12-22 12:28:00 2017-12-22 12:55:00 Departed Emergency Room [facility] [id number] [facility] 2017-12-18 16:30:00 2017-12-18 21:52:00 Departed Emergency Room 1 LIZ MUÑIZ [facility] [id number] [facility] 2017-12-10 14:41:00 2017-12-15 18:30:00 Discharged Inpatient 1 VINNY RENDON [facility] [id number] [facility] 2017-11-30 20:49:00 2017-12-04 16:53:00 Discharged Inpatient 1 RENÉE GUIDRY [facility] [id number] [facility] 2017-11-14 20:27:00 2017-11-14 21:25:00 Departed Emergency Room [facility] [id number] [facility] 2017-11-05 15:08:00 2017-11-05 15:08:00 Registered Clinic 3 JARET MAN [facility] [id number] [facility] 2017-09-18 01:04:00 2017-09-23 18:35:00 Discharged Inpatient 1 VIKY MONTOYA [facility] [id number] [facility] 2017-08-10 13:10:00 2017-08-10 18:25:00 Departed Emergency Room [facility] [id number] [facility] 2017-07-16 02:07:00 2017-07-16 02:38:00 Departed Emergency Room [facility] [id number] [facility] 2017-07-05 12:59:00 2017-07-05 13:01:00 Departed Emergency Room [facility] [id number] [facility] 2017-07-03 07:21:00 2017-07-03 07:21:00 Registered Surgical Day Care [facility] [id number] [facility] 2017-07-01 11:08:00 2017-07-01 11:08:00 Registered Surgical Day Car e OSIEL LAWSON [facility] [id number] [facility] 2017-04-12 13:23:00 2017-04-12 17:28:00 Departed Emergency Room ER MIGUEL ANGELJUDAH Bernardo [facility] [id number] [facility] 2017-03-11 06:30:00 2017-03-14 14:25:00 Discharged Inpatient ER VIKY MONTOYA [facility] [id number] [facility] 2016-12-27 20:18:00 2016-12-31 14:28:00 Discharged Inpatient ER CARLIE NIX [facility] [id number] [facility] 2016-11-06 07:17:00 2016-11-06 17:05:00 Discharged Inpatient ER CARLIE NIX [facility] [id number] [facility] 2016-09-07 18:56:00 2016-09-15 17:00:00 Discharged Inpatient [facility] [id number] [facility] 2016-07-24 15:58:00 2016-07-29 12:09:00 Discharged Inpatient [facility] [id number] [facility] 2016-06-11 08:01:00 2016-06-11 08:01:00 Registered Surgical Day Care [facility] [id number] [facility] 2015-03-10 02:28:00 2015-03-10 05:43:00 EC Emergency Center [facility] [id number] [facility] 2015-03-09 20:28:00 2015-03-09 23:43:00 Outpatient Birgit Lyons [facility] [id number] 2015-02-15 21:13:00 2015-02-16 01:33:00 EC Emergency Center [facility] [id number] [facility] 2015-02-15 15:13:00 2015-02-15 19:33:00 Outpatient Cee Natarajan [facility] [id number] Results Test Description Test Time Test Comments Results Result Comments Source Blood leukocytes automated count (number/volume) 2019-06-11 04:45:00 Test Item White Blood Count (test code = 6690-2) 10.45 [facility] erythrocytes automated count (number/volume)2019-06-11 04:45:00* Test Item Value Reference Range Interpretation Comments Red Blood Count (test code = 789-8) 3.91 [facility] hemoglobin measurement (moles/volume)2019-06-11 04:45:00* Test Item Value Reference Range Interpretation Comments Hemoglobin (test code = 33452-2) 10.0 [facility] HospitalAutomated blood hematocrit (volume fraction)2019-06-11 04:45:00* Test Item Value Reference Range Interpretation Comments Hematocrit (test code = 4544-3) 32.4 [facility] HospitalAutomated erythrocyte mean corpuscular izcczx8781-86-84 04:45:00* Test Item Value Reference Range Interpretation Comments Mean Corpuscular Volume (test code = 787-2) 82.9 [facility] HospitalAutomated erythrocyte mean corpuscular hemoglobin (mass per erythrocyte)2019-06-11 04:45:00* Test Item Value Reference Range Interpretation Comments Mean Corpuscular Hemoglobin (test code = 785-6) 25.6 [facility] HospitalAutomated erythrocyte mean corpuscular hemoglobin concentration measurement (mass/volume)2019-06-11 04:45:00* Test Item Value Reference Range Interpretation Comments Mean Corpuscular Hemoglobin Concent (test code = 786-4) 30.9 [facility] HospitalRD WegHz-Voh6626-66-02 04:45:00* Test Item Value Reference Range Interpretation Comments Red Cell Distribution Width (test code = 58071-2) 14.7 [facility] HospitalAutomated blood platelet count (count/volume)2019-06-11 04:45:00* Test Item Value Reference Range Interpretation Comments Platelet Count (test code = 777-3) 272 [facility] HospitalAutst. luke's hospitaled blood segmented neutrophil count as percentage of total uiwmydzbft2758-50-77 04:45:00* Test Item Value Reference Range Interpretation Comments Neutrophils (%) (Auto) (test code = 10239-7) 54.2 [facility] HospitalAutomated blood lymphocyte count as percentage ot total eptcnqcanh4025-02-22 04:45:00* Test Item Value Reference Range Interpretation Comments Lymphocytes (%) (Auto) (test code = 736-9) 35.0 [facility] monocyte count as percentage of total ggijndkivj1359-61-62 04:45:00* Test Item Value Reference Range Interpretation Comments Monocytes (%) (Auto) (test code = 5905-5) 7.1 [facility] HospitalAutomated blood eosinophil count as percentage of total oxlwpjkvsl5277-17-87 04:45:00* Test Item Value Reference Range Interpretation Comments Eosinophils (%) (Auto) (test code = 713-8) 2.5 [facility] HospitalAutomated blood basophil count as percentage of total dbumpuczxy2560-41-47 04:45:00* Test Item Value Reference Range Interpretation Comments Basophils (%) (Auto) (test code = 706-2) 0.4 [facility] HospitalFluoroscopic procedure less than one hour cfgtruyr6312-54-21 04:45:00* Test Item Value Reference Range Interpretation Comments IM GRANULOCYTES % (test code = IM GRANULOCYTES %) 0.8 [facility] HospitalAutomated blood neutrophil count 2019-06-11 04:45:00* Test Item Value Reference Range Interpretation Comments Neutrophils # (Auto) (test code = 751-8) 5.7 [facility] HospitalBlood lymphocytes count (number/volume) 2019-06-11 04:45:00* Test Item Value Reference Range Interpretation Comments Lymphocytes # (Auto) (test code = 17793-4) 3.7 [facility] HospitalBlnorth[facility] monocytes automated count (number/volume)2019-06-11 04:45:00* Test Item Value Reference Range Interpretation Comments Monocytes # (Auto) (test code = 742-7) 0.7 [facility] HospitalAutomated blood eosinophil count 2019-06-11 04:45:00* Test Item Value Reference Range Interpretation Comments Eosinophils # (Auto) (test code = 711-2) 0.3 [facility] basophil count (count/volume)2019-06-11 04:45:00* Test Item Value Reference Range Interpretation Comments Basophils # (Auto) (test code = 704-7) 0.0 [facility] HospitalFluoroscopic procedure less than one hour snwittzp2438-97-32 04:45:00* Test Item Value Reference Range Interpretation Comments Absolute Immature Granulocyte (auto (irena t code = Absolute Immature Granulocyte (auto) 0.08 [facility] HospitalCapillary blood glucose measurement by glucometer (mass/volume)2019-06-10 19:25:00* Test Item Value Reference Range Interpretation Comments Bedside Glucose (test code = 20631-7) 187 [facility] sodium measurement (moles/volume)2019-06-10 05:20:00* Test Item Value Reference Range Interpretation Comments Sodium Level (test code = 2951-2) 138 [facility]er[facility] or plasma potassium measurement (moles/volume)2019-06-10 05:20:00* Test Item Value Reference Range Interpretation Comments Potassium Level (test code = 2823-3) 3.6 [facility] plasma chloride measurement (moles/volume)2019-06-10 05:20:00* Test Item Value Reference Range Interpretation Comments Chloride Level (test code = 2075-0) 109 [facility]er[facility] or plasma carbon dioxide, total measurement (moles/volume)2019-06-10 05:20:00* Test Item Value Reference Range Interpretation Comments Carbon Dioxide Level (test code = 2028-9) 23 [facility]er[facility] or plasma anion nbu9430-53-93 05:20:00* Test Item Value Reference Range Interpretation Comments Anion Gap (test code = 91944-2) 9.6 [facility] or plasma urea nitrogen measurement (mass/volume)2019-06-10 05:20:00* Test Item Value Reference Range Interpretation Comments Blood Urea Nitrogen (test code = 3094-0) 19 [facility] or plasma creatinine measurement (mass/volume)2019-06-10 05:20:00* Test Item Value Reference Range Interpretation Comments Creatinine (test code = 2160-0) 1.27 [facility] or plasma urea nitrogen/creatinine mass sfwpn9875-67-12 05:20:00* Test Item Value Reference Range Interpretation Comments BUN/Creatinine Ratio (test code = 3097-3) 15 [facility] HospitalEstimated glomerular filtration rate (GFR) wzqbyylbjdyxd5620-44-92 05:20:00* Test Item Value Reference Range Interpretation Comments Estimat Glomerular Filtration Rate (test code = 827633590) 44 [facility] HospitalGlucose lwlwpwnjgla6157-90-11 05:20:00* Test Item Value Reference Range Interpretation Comments Glucose Level (test code = RMF0059) 163 [facility]er[facility] or plasma calcium measurement (mass/volume)2019-06-10 05:20:00* Test Item Value Reference Range Interpretation Comments Calcium Level (test code = 44937-6) 8.6 [facility] HospitalRETROGRADE IERZPLVPW8655-08-38 14:31:00 [place] [address] Patient Name: WESLY HUTCHINSON MR #: [id number] : 1960 Age/Sex: 58/F Req #: [id number] Adm Physician: FIGUEROA CARD MD Ordered by: JARET ESPINOSA MD Report #: [id number] Location: MED/SURG Room/Bed: [facility] Procedure: [id number] DX/RETROGRAD E PYELOGRAM Exam Date: 06/09/19 Exam Time: 0714 REPORT STATUS: Signed OR Fluoroscopy: IMPRESSION: Fluoroscopy service provided in the OR. Interpretation not requested. Signed by: Gutierrez Lora MD on 06/09/2019 2:31 PM Dictate d By: GUTIERREZ LORA MD 1431 COPY TO: JARET ESPINOSA MD Bacterial urine ckbshcw9898-76-75 07:40:00* Test Item Value Reference Range Interpretation Comments Urine Culture (test code = 630-4) VALERIO ALBICANS [facility] HospitalPhosphorus djgmhekyqbm4702-47-39 05:05:00 * Test Item Value Reference Range Interpretation Comments Phosphorus Level (test code = GVM4469) 2.7 [facility] or plasma magnesium measurement (mass/volume)2019-06-09 05:05:00* Test Item Value Reference Range Interpretation Comments Magnesium Level (test code = 02595-9) 1.9 [facility] HospitalFluoroscopic procedure less than one hour ugywsbzd5260-08-92 09:50:00* Test Item Value Reference Range Interpretation Comments Coronavirus (PCR) (test code = Coronavirus (PCR)) NOT DETECTED [facility] HospitalNEPHRO/URET W IMG/MRJ-PUNNTTAU5253-61-28 15:57:00 [facility] [address] [place] [address] Patient Name: WESLY HUTCHINSON MR #: [id number] : 1960 Age/Sex: 58/F Req #: [id number] Adm Physician: FIGUEROA CARD MD Ordered by: JARET ESPINOSA MD Report #: [id number] Location: MED/SURG Room/Bed: [facility] Procedure: [id number] IR/NEPHRO/UR ET W IMG/INJ-EXISTING Exam Date: Exam [...] r): 27.4 mGy. Approach: The indwelling 10 Russian neph rostomy catheter Estimated blood loss: < 5 cc. Specimen: None. mobile heavy equipment operator: Leon Lo MD. Sales Administrator: None. Technique/findings: Informed written consent was obtained. [...] given occluded end hole. Subsequent, a 5 Russian Kumpe catheter and 0.035 angled Glidewire was used to obtain access into the right collecting system along side the indwelling nephrostomy cathete r. The Glidewire was exchanged for a 0.035 Bentson wire. The indwelling nephro stomy catheter was removed. A new 12 Russian and a prosthetic catheter was adva nced [...] 1603 COPY TO: JARET ESPINOSA MD IR LQECSFB2551-39-56 15:57:00 [place] [address] Patient Name: WESLY HUTCHINSON MR #: [id number] : 1960 Age/Sex: 58/F Req #: [id number] [facility] Physician: FIGUEROA CARD MD Ordered by: JARET ESPINOSA MD Report #: [id number] Location: MED/SURG Room/Bed: [facility] Procedure: [id number] DX/IR CONSUL T Exam Date: Exam Time: [...] r): 27.4 mGy. Approach: The indwelling 10 Russian nephrostomy catheter Estimated blood loss: < 5 cc. Specimen: None. mobile heavy equipment operator: Leon Lo MD. Sales Administrator: None. Technique/findings: Informed written consent was obtained. [...] given occluded end hole. Subsequent, a 5 Russian Kumpe catheter and 0.035 angled Glidewire was used to obtain access into the right collecting system along side the indwelling nephrostomy catheter. The Glidewire was exchanged for a 0.035 Bentson wire. The indwelling nephrostomy catheter was removed. A new 12 Russian and a prosthetic catheter was advanced with [...] Transcribed By: DEYANIRA on 06/07/191602 COPY TO: AJRET ESPINOSA MD Fluoroscopic procedure less than one hour amyslhgo1958-65-43 04:40:00* Test Item Value Reference Range Interpretation Comments Hemoglobin A1c Percent (test code = Hemoglobin A1c Percent) 6.9 [facility] or plasma total bilirubin measurement (mass/volume)2019-06-05 05:10:00* Test Item Value Reference Range Interpretation Comments Total Bilirubin (test code = 1975-2) 0.2 [facility] HospitalFluoroscopic procedure less than one hour lxxbukmw3495-42-61 05:10:00* Test Item Value Reference Range Interpretation Comments Aspartate Amino Transf (AST/SGOT) (test code = Aspartate Amino Transf (AST/SGOT)) 9 [facility]er[facility] or plasma alanine aminotransferase measurement (enzymatic activity/volume)2019-06-05 05:10:00* Test Item Value Reference Range Interpretation Comments Alanine Aminotransferase (ALT/SGPT) (test code = 1742-6) 12 [facility]er[facility] or plasma protein measurement (mass/volume)2019-06-05 05:10:00* Test Item Value Reference Range Interpretation Comments Total Protein (test code = 2885-2) 7.3 [facility]er[facility] or plasma albumin measurement (mass/volume)2019-06-05 05:10:00* Test Item Value Reference Range Interpretation Comments Albumin (test code = 1751-7) 2.8 [facility] HospitalPlasma globulin measurement (mass/volume) 2019-06-05 05:10:00* Test Item Value Reference Range Interpretation Comments Globulin (test code = 33124-8) 4.5 [facility] or plasma albumin/globulin mass ukaqw1738-79-45 05:10:00* Test Item Value Reference Range Interpretation Comments Albumin/Globulin Ratio (test code = 1759-0) 0.6 [facility] or plasma alkaline phosphatase measurement (enzymatic activity/volume)2019-06-05 05:10:00* Test Item Value Reference Range Interpretation Comments Alkaline Phosphatase (test code = 6768-6) 90 [facility] HospitalCT ABDOMEN/PELVIS MT9734-96-88 17:22:00 [facility] [address] [place] [address] Patient Name: WESLY HUTCHINSON MR #: [id number] : Age/Sex: 58/F Req #: [id number] Adm Physician: FIGUEROA CARD MD Ordered by: FIGUEROA CARD MD Report #: [id number] Location: MED/SURG Room/Bed: [facility] Procedure: [id number] C T/CT ABDOMEN/PELVIS WO Exam Date: 06/04/19 [...] MEDRANO MD Electro nically Signed By: GLO MEDRANO MD on 06/04/191754 Transcribed By: LANCE Meehan on 06/04/191754 COPY TO: FIGUEROA CARD MD CT BRAIN PB9916-97-35 15:26:00 [place] [address] Patient Name: WESLY HUTCHINSON MR #: [id number] : 1960 Age/Sex: 58/F Req #: [id number] Adm Physician: FIGUEROA CARD MD Ordered by: LIZ MUÑIZ MD Report #: [id number] Location: MED/SURG Room/Bed: [facility] Procedure: [id number]/CT BRAIN WO Exam [...] LIZ MUÑIZ MD CHEST SINGLE (PORTABLE)2019-06-04 15:17:00 [place] [address] Patient Name: WESLY HUTCHINSON MR #: [id number] : 1960 Age/Sex: 58/F Req #: [id number] Adm Physician: FIGUEROA CARD MD Ordered by: LIZ MUÑIZ MD Report #: [id number] Location: MED/SURG Room/Bed: [facility] Procedure: [id number] 6 DX/CHEST SINGLE (PORTABLE) Exam Date: 06/04/19 Jammie quintero Time: 1430 REPORT STATUS: Signed EXAMINATION: CHEST SINGLE (PORTABLE) COMPARISON: Chest x-ray 12/19/19 18 INDICATION: Fever, pain, weakness LOW GRADE FEVER, SOMNOLENCE, LIKEL Y UTI [id number] DISCUSSION: Frontal view of the chest [...] acute ca rdiopulmonary disease. Signed by: Dr. Glo Medrano MD on 06/04/2019 3: 19 PM Dictated By: GLO MEDRANO MD 18 Transcribed By: DEYANIRA on 06/04/191518 COPY TO: LIZ MUÑIZ MD Blood xuzbzwk1335-50-19 12:11:00* Test Item Value Reference Range Interpretation Comments Blood Culture (test code = 72207543) NO GROWTH AFTER 5 DAYS, FINAL REPORT [facility] HospitalProthrombin time (PT) in platelet poor plasma by coagulation lpjyc3562-86-39 11:56:00* Test Item Value Reference Range Interpretation Comments Prothrombin Time (test code = 5902-2) 13.7 [facility] HospitalINR in Platelet poor plasma by Coagulation jdxem7866-79-56 11:56:00* Test Item Value Reference Range Interpretation Comments Prothromb Time International Ratio (test code = 6301-6) 0.99 [facility] HospitalActivated partial thromboplastin time (aPTT) in platelet poor plasma by coagulation pduon4739-39-72 11:56:00* Test Item Value Reference Range Interpretation Comments Activated Partial Thromboplast Time (test code = 31702-0) 33.1 [facility] or plasma creatine kinase measurement (enzymatic activity/volume)2019-06-04 11:56:00* Test Item Value Reference Range Interpretation Comments Creatine Kinase (test code = 2157-6) 28 [facility]erum or plasma creatine kinase MB measurement (mass/volume)2019-06-04 11:56:00* Test Item Value Reference Range Interpretation Comments Creatine Kinase MB (test code = 54796-0) 0.40 [facility] HospitalTroponin I measurement by highly sensitive enzyme cptcekiwwba3060-67-13 11:56:00* Test Item Value Reference Range Interpretation Comments Troponin I (test code = 64523-3) < 0.001 [facility] HospitalUrine color pkfdbhxxjttuz8424-31-49 11:55:00* Test Item Value Reference Range Interpretation Comments Urine Color (test code = 5778-6) YELLOW [facility] HospitalUrine aplknuk7008-38-30 11:55:00* Test Item Value Reference Range Interpretation Comments Urine Clarity (test code = 65867-3) HAZY [facility] Hospitalpecific gravity of Urine by Test strip 2019-06-04 11:55:00* Test Item Value Reference Range Interpretation Comments Urine Specific [place] (test code = 5811-5) 1.020 [facility] HospitalUrine pH measurement by automated test cjjpy5254-22-13 11:55:00* Test Item Value Reference Range Interpretation Comments Urine pH (test code = 70007-4) 8 [facility] HospitalUrine leukocyte esterase detection by kvjjkxqj9078-08-72 11:55:00* Test Item Value Reference Range Interpretation Comments Urine Leukocyte Esterase (test code = 5799-2) LARGE [facility] [facility] nitrite qisqxkcpy0927-12-67 11:55:00* Test Item Value Reference Range Interpretation Comments Urine Nitrite (test code = 03846-7) NEGATIVE [facility] protein measurement by test strip (mass/volume)2019-06-04 11:55:00* Test Item Value Reference Range Interpretation Comments Urine Protein (test code = 5804-0) >=300 [facility] glucose kjwhguzmv3996-10-89 11:55:00* Test Item Value Reference Range Interpretation Comments Urine Glucose (UA) (test code = 2349-9) NEGATIVE [facility] HospitalU[facility] ketones detection by automated test evesr2128-79-84 11:55:00* Test Item Value Reference Range Interpretation Comments Urine Ketones (test code = 03119-2) NEGATIVE [facility] urobilinogen measurement by test strip (mass/volume)2019-06-04 11:55:00* Test Item Value Reference Range Interpretation Comments Urine Urobilinogen (test code = 61495-9) 0.2 [facility] total bilirubin measurement (mass/volume)2019-06-04 11:55:00* Test Item Value Reference Range Interpretation Comments Urine Bilirubin (test code = 1978-6) NEGATIVE [facility] erythrocytes hytwplzct9559-00-76 11:55:00* Test Item Value Reference Range Interpretation Comments Urine Blood (test code = 14474-3) 3+ [facility] HospitalAutomated urine sediment leukocyte count by microscopy (number/high power field)2019-06-04 11:55:00* Test Item Value Reference Range Interpretation Comments Urine WBC (test code = 5821-4) >50 [facility] HospitalErythrocytes detection in urine sediment by light eypuylpfsx6271-22-18 11:55:00* Test Item Value Reference Range Interpretation Comments Urine RBC (test code = 41347-9) >50 [facility] HospitalBacteria detection in urine sediment by light ongrzmdjiw1106-16-32 11:55:00* Test Item Value Reference Range Interpretation Comments Urine Bacteria (test code = 26015-4) MODERATE [facility] HospitalEpithelial cells detection in urine sediment by light pelygbhqfy5376-63-52 11:55:00* Test Item Value Reference Range Interpretation Comments Urine Epithelial Cells (test code = 02862-2) FEW [facility] HospitalCoarse granular casts detection in urine sediment by light ohmqssxjhv0541-22-96 11:55:00* Test Item Value Reference Range Interpretation Comments Urine Coarse Granular Casts (test code = 32115-6) 1-5 [facility] HospitalMucus detection in urine sediment by light lgbbnbqroy5728-98-24 11:55:00* Test Item Value Reference Range Interpretation Comments Urine Mucus (test code = 8247-9) MODERATE [facility]AB[facility] ([facility])2019-02-24 19:48:00 [facility] [address] [place] [address] Patient Name: WESLY HUTCHINSON MR #: [id number] : Age/Sex: 58/F Req #: [id number] Adm Physician: Ordered by: ASHA BARDALES PAD MAKING MACHINE OPERATOR Report #: [id number] Location: ER Room/Bed: Procedure: 0116-0 074 DX/ABDOMEN-1VIEW [...] DEYANIRA on 02/24/191948 COPY TO: ASHA BARDALES PAD MAKING MACHINE OPERATOR Blood platelets count by estimate (number/volume)2019-02-24 16:28:00* Test Item Value Reference Range Interpretation Comments Platelet Estimate (test code = 69786-9) SLIGHTLY DECREASED [facility] HospitalPlatelet ixtgelawfs4178-79-03 16:28:00* Test Item Value Reference Range Interpretation Comments Platelet Morphology Comment (test code = 47550-4) NORMAL [facility] HospitalBlood hypochromia detection by light qdwtvkmwnz6347-62-55 16:28:00* Test Item Value Reference Range Interpretation Comments Hypochromasia (test code = 728-6) MODERATE [facility] HospitalBlood poikilocytosis detection by light qvosnssevu0987-30-35 16:28:00* Test Item Value Reference Range Interpretation Comments Poikilocytosis (test code = 779-9) MODERATE [facility] HospitalBlood anisocytosis detection by light ftzrnqfodr4943-56-15 16:28:00* Test Item Value Reference Range Interpretation Comments Anisocytosis (test code = 702-1) SLIGHT [facility] Hospital[facility] yaifqhuybz4085-78-32 16:28:00* Test Item Value Reference Range Interpretation Comments Red Cell Morphology Comment (test code = 6742-1) NORMAL [facility] HospitalIR TGUPMSC3458-85-28 15:02:00 [facility] [address] [address] Patient Name: WESLY HUTCHINSON MR #: [id number] : Age/Sex: 58/F Req #: [id number] Adm Physician: FIGUEROA CARD MD Ordered by: JARET ESPINOSA MD Report #: [id number] Location: [facility] Room/Bed: [facility] Procedure: 1310-2328 D X/IR CONSULT Exam Date: Exam Time: [...] weeks. PROCEDURE SUMMARY - Target organ: Unilateral little traverse kidney - Antegrade nephrostogram(s) via the e [...] COPY TO: JARET ESPINOSA MD NEPHRO/URET W IMG/FJT-EPSAORNZ5226-03-30 15:02:00 [place] [address] Patient Name: WESLY HUTCHINSON MR #: [id number] : Age/Sex: 58/F Req #: [id number] Adm Physician: FIGUEROA CARD MD Ordered by: FIGUEROA CARD MD Report #: [id number] Location: [facility] Room/Bed: [facility] Procedure: 1505-2683 I R/NEPHRO/URET W IMG/INJ-EXISTING Exam Date: Exam [...] P ROCEDURE SUMMARY - Target organ: Unilateral little traverse kidney - Antegrade nephro stogram(s) via the [...] Signed By: DEJA DAWSON MD on 02/07/19 5558 Transcribed By: DEYANIRA on 02/07/19 4952 COPY TO: FIGUEROA CARD MD ABDOMEN-1VIEW (KU)2019-02-06 08:49:00 [place] [address] Patient Name: WESLY HUTCHINSON MR #: [id number] : 1960 Age/Sex: 58/F Req #: [id number] Adm Physician: Ordered by: LIZ MUÑIZ MD Report #: [id number] Location: ER Room/Bed: Procedure: 1229-001 0 DX/ABDOMEN-1VIEW ([facility]) Exam Date: 02/06/19 Exam Ti me: 0835 [...] COPY TO: LIZ MUÑIZ MD Bacterial urine zompuxx8671-32-50 07:10:00* Test Item Value Reference Range Interpretation Comments Urine Culture (test code = 630-4) PSEUDOMONAS AERUGINOSA [facility]2019-01-14 16:47:00 [place] [address] Patient Name: WESLY HUTCHINSON MR #: [id number] : Age/Sex: 58/F Req #: [id number] Adm Physician: Ordered by: JARET ESPINOSA MD Report #: [id number] Location: OR Room/Bed: Procedure: 9951-8928 D X/ABDOMEN-1VIEW (KUB) Exam Date: 01/14/19 Exam [...] COPY TO: JARET PATEL MD Bacterial urine nkshudv5889-81-25 23:00:00* Test Item Value Reference Range Interpretation Comments Urine Culture (test code = 630-4) ENTEROCOCCUS FAECIUM [facility] HospitalAmorphous sediment detection in urine sediment by light upllfqlmdh3461-82-76 11:33:00* Test Item Value Reference Range Interpretation Comments Urine Amorphous Sediment (test code = 8246-1) FEW [facility] HospitalYeast detection in urine sediment by light whayqjiekw1300-39-49 11:33:00* Test Item Value Reference Range Interpretation Comments Urine Yeast (test code = 57349-7) MANY [facility] HospitalBacterial urine ydlwcxr4253-15-97 11:33:00* Test Item Value Reference Range Interpretation Comments Urine Culture (test code = 630-4) ENTEROCOCCUS FAECIUM [facility] HospitalNEPH[facility]/URET W IMG/BRW-TSGGBYSV4067-54-24 14:16:00 [facility] [address] [address] Patient Name: WESLY HUTCHINSON MR #: [id number] : 1960 Age/Sex: 58/F Req #: [id number] Adm Physician: Ordered by: JARET ESPINOSA MD Report #: [id number] Location: DX Room/Bed: Procedure: 9826-7745 I R/NEPHRO/URET W IMG/INJ-EXISTING Exam Date: Exam [...] intervals. PROCEDURE SUMMARY - Target organ: Right little traverse kidney - Antegrade nephrostogram(s) via the existing [...] TO: JARET ESPINOSA MD ABDOMEN-1VIEW (KU)2018-10-01 07:49:00 [place] [address] Patient Name: WESLY HUTCHINSON MR #: [id number] : 1960 Age/Sex: 57/F Req #: [id number] [facility] Physician: Ordered by: JARET ESPINOSA MD Report #: [id number] Location: OR Room/Bed: Procedure: 5905-4380 D X/ABDOMEN-1VIEW ([facility]) Exam Date: 10/01/18 Exam Time: 0725 REPORT [...] Thyroid Stimulating Hormone (TSH) (test code = 22395-9) 2.374 [facility]2018-09-09 18:34:00 [place] [address] Patient Name: WESLY HUTCHINSON MR #: [id number] : Age/Sex: 57/F Req #: [id number] Adm Physician: Ordered by: ASHA BARDALES PAD MAKING MACHINE OPERATOR Report #: [id number] Location: ER Room/Bed: Procedure: 0801-0 054 DX/ABDOMEN-1VIEW [...] ASHA BARDALES NP SPECIAL PROCEDURE IN CATH HSI9683-54-54 14:18:00 [place] [address] Patient Name: WESLY HUTCHINSON MR #: [id number] : Age/Sex: 57/F Req #: [id number] Adm Physician: Ordered by: JARET ESPINOSA MD Report #: [id number] Location: POLICE BOOKING OFFICER Room/Bed: Procedure: 0065-5272 I R/SPECIAL PROCEDURE IN POLICE BOOKING OFFICER Exam Date: Exam Kirk e: REPORT STATUS: [...] Minimal Blood products administered: None Specimens: 10 Russian percutaneous nephrostomy catheter, discarded Implants/grafts: 10 Russian percutaneous nephrostomy catheter Condition at completion: Stable Dispo sition: Catheter lab holding area for recovery Complications: No immediate Procedure in detail: Informed consent was obtained and documented in the ne dical record after discussion of risks and [...] pelvi s. The catheter was then exchanged ajzi-qpe-wxje for a new 10 Russian locking loop percutaneous nephrostomy catheter. The wire [...] complication. CONCLUSION: Successful exchange of a 10 Russian locking loop right percutaneous n ephrostomy catheter under fluoroscopic guidance. The patient should return to interventional radiology for routine catheter exchange in 3 months if the catheter is still needed at that time. Dictated by: Osile Sullivan M.D. on 08/16/2018 at 14:18 Electronically approved by: Osiel Sullivan M.D. on 2018 at 14:18 Dictated By: OSIEL SULLIVAN MD Electronically Bea d By: OSIEL SULLIVAN MD on 08/16/18 1418 Transcribed By: SUSHANT on 08/16/18 1418 COPY TO: JARET ESPINOSA MD CT ABDOMEN/PELVIS QE2028-57-74 17:33:00 [place] [address] Patient Name: WESLY HUTCHINSON MR #: [id number] : 1960 Age/Sex: 57/F Req #: [id number] [facility] Physician: Ordered by: LIZ MUÑIZ MD Report #: [id number] Location: ER Room/Bed: Procedure: 5394-2749 CT/CT ABDOMEN/PELVIS WO Exam Date: 05/29/18 Exam Time: REPORT STATUS: Signed EXAM: C T Abdomen and Pelvis WITHOUT contrast INDICATION: CT CYSTOGRAM 2 [id number] 1626 Y COMPARISON: Nephrostomy tube x-ray 05/07/2018 [...] LIZ MUÑIZ MD SPECIAL PROCEDURE IN CATH FDQ3903-38-02 12:30:00 [place] [address] Patient Name: WESLY HUTCHINSON MR #: [id number] : 1960 Age/Sex: 57/F Req #: [id number] Adm Physician: FIGUEROA CARD MD Ordered by: JARET ESPINOSA MD Report #: [id number] Location: MED/SURG3 Room/Bed: [facility] Procedure: 1602-8804 IR/ARPAN BEVERLY PROCEDURE IN POLICE BOOKING OFFICER Exam Date: Exam Time: REPORT STATUS: Signed Procedure: Ri ght nephrostomy catheter exchange with fluoroscopic guidance Comparison: Ri ght nephrostomy exchange 12/15/2017. Degreaser Operator: Mode Donald MD Sedation /Medications: Conscious sedation. [...] er was exchanged for a new 10 Russian nephrostomy catheter. Contrast injection confirmed satisfactory positioning. [...] 1234 COPY TO: JARET ESPINOSA MD IR USOYKEV6133-10-50 12:30:00 [place] [address] Patient Name: WESLY HUTCHINSON MR #: [id number] : 1960 Age/Sex: 57/F Req #: [id number] Adm Physician: FIGUEROA CARD MD Ordered by: JARET ESPINOSA MD Report #: [id number] Location: MED/SURG3 Room/Bed: [facility] Procedure: 2336-7619 DX/IR CO NSULT Exam Date: Exam Time: REPORT STATUS: Signed Procedure: Right nephrostomy cat heter exchange with fluoroscopic guidance Comparison: Right nephrostomy exc hange 12/15/2017. Degreaser Operator: Mode Donald MD Sedation/Medications: Consc ious sedation. [...] catheter was exchanged for a new 10 Russian nephrostomy catheter. Contrast injection confirmed satisfact ory positioning. Catheter was secured with suture and overlying sterile dressi ng. There were no immediate complications. Impression: Fluoroscopic guide d right nephrostomy catheter exchange as above. Signed by: Dr. Mode Donald MD on 05/17/2018 12:34 PM Dictated By: MODE DONALD MD 1234 Transcribed By: DEYANIRA on 05/17/18 1236 COPY TO: JARET ESPINOSA MD ABDOMEN-1VIEW (KUB)2018-05-06 12:55:00 [facility] [address] [place] [address] Patient Name: WESLY HUTCHINSON MR #: [id number] : 1960 Age/Sex: 57/F Req #: [id number] Adm Physician: Ordered by: LUZ MARINA BONDS MD Report #: [id number] Location: ER Room/Bed: Procedure: 7053-4335 DX/ ABDOMEN-1VIEW ([facility]) Exam Date: 05/06/18 Exam Time: REPORT STATUS: [...] PM Dictated By: EDUAR YOST MD, MD 1259 Transcribed By: DEYANIRA on 05/06/18 1258 COPY TO: LUZ MARINA BONDS MD ABDOMEN-1VIEW (KU)2018-03-25 14:44:00 [facility] [address] [place], [place] [address] Patient Name: WESLY HUTCHINSON MR #: [id number] : Age/Sex: 57/F Req #: [id number] Adm Physician: Ordered by: JARET ESPINOSA MD Report #: [id number] Location: OR Room/Bed: Procedure: 0035-7722 D X/ABDOMEN-1VIEW (KUB) Exam Date: 03/25/18 Exam Time: 1315 REPORT STATUS: Signed E xam: Abdominal film Clinical History: Nephrolithiasis Comparison: CT abdomen and pelvis 03/10/2018 DISCUSSION: Right percutaneous nephrostomy and parallel left internal ureteral stents are again noted. Positions are unchang ed relative to tray filler tomogram from comparison CT. Pelvic surgical clips [...] ESPINOSA MD CT ABDOMEN/PELVIS WO 2018-03-10 13:57:00 [facility] [address] [place] [address] Patient Name: WESLY HUTCHINSON MR #: [id number] : 1960 Age/Sex: 57/F [facility] [id number] Req #: [id number] Adm Physician: Ordered by: LUZ MARINA BONDS MD Report #: [id number] Location: ER Room/Bed: Procedure: 0130-[address]/CT [...] BONDS MD CHEST SINGLE (NOT PORTABLE)2017-12-18 18:00:00 [place] [address] Patient Name: WESLY HUTCHINSON MR #: [id number] : Age/Sex: 57/F Req #: [id number] Adm Physician: Ordered by: LIZ MUÑIZ MD Report #: [id number] Location: ER Room/Bed: Procedure: 1109-006 6 DX/CHEST [...] COPY TO: LIZ MUÑIZ MD NEPHROSTOMY CATHETER OEPUZYPZ6644-52-35 07:05:00 [place] [address] Patient Name: WESLY HUTCHINSON MR #: [id number] : 1960 Age/Sex: 57/F Req #: [id number] Adm Physician: VINNY RENDON MD Ordered by: JARET ESPINOSA MD Report #: [id number] Location: [facility] Room/Bed: [facility] Procedure: 8078-6468 DX/NEPHROSTOMY CATHETER EXCHANGE Exam Date: Exam Ti [...] placed through the catheter. A new 10 Russian all-purpose drainage catheter was then placed into [...] COPY TO: JARET ESPINOSA MD CT ABDOMEN/PELVIS IX1861-83-95 12:56:00 [place] [address] Patient Name: WESLY HUTCHINSON MR #: [id number] : 1960 Age/Sex: 57/F Req #: [id number] Adm Physician: Ordered by: SAMEER LOBO MD Report #: [id number] Location: ER Room/Bed: Procedure: 1101 -0019 CT/CT [...] 12/10/2017 1:09 PM Dictated By: EDUAR Flowers 1303 Transcribed B y: DEYANIRA on 12/10/17 130 COPY TO: SAMEER LOBO MD CT ABDOMEN/PELVIS NW6857-60-82 18:26:00 [place] [address] Patient Name: WESLY HUTCHINSON MR #: [id number] : 1960 Age/Sex: 57/F Req #: [id number] Adm Physician: Ordered by: PAIGE GIBSON NP Report #: [id number] Location: ER Room/Bed: Procedure: 1022 -0022 CT/CT [...] TO: PAIGE GIBSON NP RENAL SCAN W/FLOW GZQSYWZX8622-17-01 19:56:00 [place] [address] Patient Name: WESLY HUTCHINSON MR #: [id number] : 1960 Age/Sex: 57/F Req #: [id number] Adm Physician: Ordered by: JARET ESPINOSA MD Report #: [id number] Location: [place] Room/Bed: Procedure: 5692-5574 NM/RENAL SCAN W/FLOW FUNCTION Ex am Date: 11/05/17 Exam Time: 1510 REPORT STATUS : Signed Renal Scan Reason for exam: 57 F with vesicoureteral reflux . Radiopharmaceutical: Tc-99m MAG3 11 mCi Report: After administratio n of the radiopharmaceutical, dynamic images of the kidneys were obtained [facility] 40 minutes. LEFT KIDNEY: Perfusion is prompt. [...] JARET ESPINOSA MD IR CONSULT 2017-09-22 07:24:00 [facility] [address] [address] Patient Name: WESLY HUTCHINSON MR #: [id number] : 1960 Age/Sex: 56/F Req #: [id number] Adm Physician: VIKY MONTOYA MD Ordered by: JARET ESPINOSA MD Report #: [id number] Location: MED/SURG3 Room/Bed: [facility] Procedure: DX/IR CONSULT Exam Date: Exam Time: REPORT STATUS: Signed Nephrostomy catheter evaluation and fluoroscopic exchange Pre-Pr ocedure Diagnosis: Cervical cancer status post radiation therapy with right ur eteral stenosis. Post-procedure Diagnosis:Cervical cancer status post radiatio n therapy with right ureteral stenosis Degreaser Operator: Mode Donald MD Assista nt: None Sedation: [...] TO: JARET ESPINOSA MD SPECIAL PROCEDURE IN POLICE BOOKING OFFICER 2017-09-22 07:24:00 [place] [address] Patient Name: WESLY HUTCHINSON MR #: [id number] : 1960 Age/Sex: 56/F Req #: [id number] Adm Physician: VIKY MONTOYA MD Ordered by: JARET ESPINOSA MD Report #: [id number] Location: MED/SURG3 Room/Bed: [facility] Procedure: 5047-0163 IR/SPE CIAL PROCEDURE IN POLICE BOOKING OFFICER Exam Date: Exam Time: REPORT STATUS: Signed Nephrostomy catheter evaluation and fluoroscopic e xchange Pre-Procedure Diagnosis: Cervical cancer status post radiation ther apy with right ureteral stenosis. Post-procedure Diagnosis:Cervical cancer s tatus post radiation therapy with right ureteral stenosis Degreaser Operator: Kimber Donald MD Sales Administrator: None Sedation: Local 5 cc of 1% [...] TO: JARET ESPINOSA MD CHEST XRAY LINE EITBZAPJO6942-90-67 11:46:00 [place] [address] Patient Name: WESLY HUTCHINSON MR #: [id number] : 1960 Age/Sex: 56/F Req #: [id number] Adm Physician: VIKY MONTOYA MD Ordered by: JARET ESPINOSA MD Report #: [id number] Location: MED/SURG3 Room/Bed: [facility] Procedure: 2408-5990 DX/TRACY ST XRAY LINE PLACEMENT Exam Date: [...] O: JARET ESPINOSA MD [facility]2017-09-18 07:34:00 [place] [address] Patient Name: WESLY HUTCHINSON MR #: [id number] : 1960 Age/Sex: 56/F Req #: [id number] [facility] Physician: VIKY REAGAN MD Ordered by: JARET ESPINOSA MD Report #: [id number] Location: [facility] Room/Bed: [place] [address] Procedure: 6889-6349 DX/ABD OMEN-1VIEW (KUB) Exam Date: 09/18/17 Exam [...] COPY TO: JARET PATEL MD CT ABDOMEN/PELVIS [id number] 19:09:00 [place] [address] Patient Name: WESLY HUTCHINSON MR #: [id number] : 1960 Age/Sex: 56/F Req #: [id number] Adm Physician: Ordered by: ANNETTE BREWER PAD MAKING MACHINE OPERATOR Report #: [id number] Location: ER Room/Bed: Procedure: 9888-7568 CT/CT ABDOMEN/PELVIS WO Exam Date: 09/17/17 Exam [...] 09/17/171927 COPY TO: ANNETTE BREWER URINE AND NBXIL8947-02-18 22:54:00Negative *NA*(02/15/15 4:54 PM) [facility] SKQAA4250-71-86 22:54:00Moderate *ABN*(02/15/15 4:54 PM)[facility] CNYAW6595-26-96 22:54:00Positive *ABN*(02/15/15 4:54 PM)[facility] GBBLC8799-40-93 22:54:00Large *ABN*(02/15/15 4:54 PM) [facility] STOOL 2015-02-15 22:54:00>182MH [facility] OGLIG1240-93-45 22:54:45187DQ [facility] PSTVB3446-41-91 22:54:0034[facility] STOOL 2015-02-15 22:54:00Yellow *NA*(02/15/15 4:54 PM) [facility] STO[facility] 2015-02-15 22:54:00Marked *ABN*(02/15/15 4:54 PM) [facility] STO[facility] 2015-02-15 22:54:005.0MH [facility] SYZVC9411-76-87 22:54:001.018 [facility] SIMVD9369-77-55 22:40:000.6MH [facility] KMOLB0585-63-36 22:40:005.8MH [facility] NGEBE0398-22-55 22:40:0012 [facility] PANEL 2015-02-15 22:40:0012.6MH [facility] ALRDR0795-31-86 22:40:09858BO [facility] FJDUD7863-27-05 22:40:0028MH [facility] HDMUX0767-87-28 22:40:000.3MH [facility] MYJFV4714-67-91 22:40:0073MH [facility] KVZXH7539-54-15 22:40:0025MH [facility] CLRRW2386-13-18 22:40:003.4 [facility] PANEL 2015-02-15 22:40:009.2MH [facility] CBIRC9195-88-39 22:40:009.1MH [facility] FOWFB2723-57-61 22:40:0026 [facility] MBOVG5852-15-07 22:40:79305LO [facility] YGSXS1797-76-05 22:40:69212IY [facility] QCWTV7765-59-39 22:40:004.6MH [facility] USCPR8535-54-23 22:40:000.91 [facility] PANEL 2015-02-15 22:40:0011 [facility] MZQLP4519-13-21 22:40:[facility] OVKQAXLSCTOLI6139-15-85 22:40:00Negative *NA*(02/15/15 4:40 PM)[facility] VYCXYCOOBB5503-22-51 22:40:0032.8 YkkvccyomZCXMUNPWHX6933-81-28 22:40:0060.0 BubkfsgtwVPLSSEMVUO1253-56-40 22:40:000.2M PgwnrhaayQQCHBPWWWY9604-17-34 22:40:000.2M QcgbvmttvVISKIIURHB8565-70-49 22:40:004.6M [facility] 2015-02-15 22:40:001.2M NdlwsmldzASUJBLKYCO0221-14-97 22:40:001.4[facility] WVVUVKCXHZ6214-56-88 22:40:007.3M GfstoporeESIHYOOWSU5206-65-57 22:40:000.6M AvkyqzytdPYHOFGQDYI8579-98-58 22:40:004.0 SqnlmbmeiZPJQNKGEMJ8033-86-59 22:40:00Clumped (02/15/15 4:40 PM) AdundjrzsJSSIVPIJVT7780-06-59 22:40:00Normal (02/15/15 4:40 PM) FlxykbmovDMHCPDGHXY2869-72-66 22:40:008.7[facility] QDSQWMGQKA9505-63-66 22:40:0012.0[facility] HospitalEpbumzqjnXBAQWZOXGK8717-11-11 22:40:004.90 HioaiwcewTUDKTZWNIX1042-07-01 22:40:0039.0 ZcnebjqrnFDDWPXGNGE3448-62-73 22:40:0079.7 FhbklqalwMLGRBXMXEZ1244-61-62 22:40:0012.0 [facility] 2015-02-15 22:40:0014.8 NqmiyroojYDFOSNSMXJ2848-71-20 22:40:0030.8 [facility] DRXETOMVND2986-05-05 22:40:32210OT DehvulhtpVMUXIXFRNM1251-32-74 22:40:00* Test Item Value Reference Range Interpretation Comments MCH (test code = MCH) 24.5 pg 27.0-31.0 [facility] POLICE BOOKING OFFICER [place] [address] Patient Name: WESLY HUTCHINSON MR #: [id number] : 1960 Age/Sex: 56/F Req #: [id number] [facility] Physician: Ordered by: JARET ESPINOSA MD Report #: [id number] Location: POLICE BOOKING OFFICER Room/Bed: Procedure: 0543-9731 IR/SPECIAL PROCEDURE IN POLICE BOOKING OFFICER Exam Date: Exam Time: REPORT STATUS: Sig jie Nephrostomy catheter evaluation and exchange, 07/03/2017 Pre-Procedur e Diagnosis: Cervical cancer status post radiation therapy with right ureteral stenosis. Post-procedure Diagnosis:Cervical cancer status post radiation ther apy with right ureteral stenosis Degreaser Operator: Eleni Thomas Sales Administrator: Norma e Sedation: None. Radiation Dose:1.931 cGycm2 (Dose Area Product) Fluor oscopy time:0.7 minutes Estimate blood loss: None Blood administered: None Complications: None Implants/Grafts: 8-Russian right nephrostomy Specimen: None Procedure: Informed consent [...] with a short KMP catheter. A new 10-Russian nephrostomy was coiled in the renal pelvis [...] encrusted with debris. Impre ssion: Successful right 10-Russian nephrostomy exchange with antegrade nephrost ogram. Recommendations: Routine catheter exchange in [address] encrustation. This report was generated with voice-recognition te chnology. Errors in director of compliance can occur. Please interpret accordingly and contact a radiologist if there are any questions regarding the report. Si gned by: Dr. Carla Thomas M.D. on 07/03/2017 11:55 AM Dictated By: CARLA THOMAS MD 1522 Tra nscribed By: DEYANIRA on 07/09/17 1522 COPY TO: JARET ESPINOSA MD CT ABDOMEN/PELVIS [place] [address] Patient Name: WESLY HUTCHINSON MR #: [id number] : 1960 Age/Sex: 56/F Req #: [id number] Adm Physician: Ordered by: ASHA BARDALES PAD MAKING MACHINE OPERATOR Report #: [id number] Location: ER Room/Bed: Procedure: 0772-9590 CT/CT ABDOMEN/PELVIS WO Exam Date: 04/12/17 Exam [...] TO: ASHA BARDALES NP SPECIAL PROCEDURE IN POLICE BOOKING OFFICER [place] [address] Patient Name: WESLY HUTCHINSON MR #: [id number] : 1960 Age/Sex: 56/F Req #: [id number] Adm Physician: VIKY MONTOYA MD Ordered by: JARET ESPINOSA MD Report #: [id number] Location: MED/SURG2 Room/Bed: [facility] Procedure: 5908-8060 IR/SPE CIAL PROCEDURE IN POLICE BOOKING OFFICER Exam Date: Exam Time: REPORT STATUS: Signed Nephrostomy catheter evaluation and subsequent exc hange, 03/11/2017 Pre-Procedure Diagnosis: Cervical cancer status post radia tion therapy with right ureteral stenosis. Post-procedure Diagnosis:Cervical cancer status post radiation therapy with right ureteral stenosis Operat or: Eleni Thomas Sales Administrator: None Sedation: Moderate sedation was provided w [...] None Blood administered: None Complications: None Implants/Grafts: 10-Russian right nephrostomy Specimen: None Procedure: Informed consent was obtained and the patient positioned prone in the fluoroscopy suite. A timeout was performed. The indwelling right nephrostomy was prepped and draped in standard fashion. Diagnostic antegrade nephrostogram was performed given the long indwelling time of the previously placed for ostomy. See findings below. Attempts to remove the indwelling 8-Russian nephrostomy over a Bentson and Glidewire were unsuccessful due to heavy encrustation. The catheter was subsequently severed and removed through an 11-Russian peel-away sheath. A Bentson wire was advanced through the peel-away sheath and exchanged for a 10-Russian nephrostomy. Contrast injection confirmed placement within the [...] was generated with voice-recognition technology. Errors in director of compliance can occur. Please interpret accordingly and contact a radiologist if there are any questions regarding the report. Signed by: Dr. Carla Thomas M.D. on 03/11/2017 2:37 PM Dictated By: CARLA THOMAS MD E lectronically Signed By: CARLA THOMAS MD on 03/12/17931 Transcribed By: VAN CARD on 03/12/17931 COPY TO: JARET ESPINOSA MD IR CONSULT [address] [place] [address] Patient Name: WESLY HUTCHINSON MR #: [id number] : Age/Sex: 56/F [facility] #: [id number] Req #: [id number] [facility] Physician: VIKY REAGAN MD Ordered by: LIZ MUÑIZ MD Report #: [id number] Locatio n: MED/SURG2 Room/Bed: [facility] Procedure: [id number] DX/ IR CONSULT Exam Date: Exam Time: REPORT STAT US: Signed Nephrostomy catheter evaluation and subsequent exchange, 03/11/2017 Pre-Procedure Diagnosis: Cervical cancer status post radiation therapy with right ureteral stenosis. Post-procedure Diagnosis:Cervical cancer status p ost radiation therapy with right ureteral stenosis Degreaser Operator: Pratibha Thomas Sales Administrator: Irena Sedation: Moderate sedation was provided with [...] None Blood administered: None Complications: None Implants/Grafts: 10-Russian right nephrostomy Specimen: None Procedure: Informed consent was obtained and the patient positioned prone in the fluoroscopy suite. A timeout was performed. The indwelling right nephrostomy was prepped and draped in standard fashion. Diagnostic antegrade nephrostogram was performed given the long indwelling time of the previously placed for ostomy. See findings below. Attempts to remove the indwelling 8- Russian nephrostomy over a Bentson and Glidewire were unsuccessful due to heavy encrustation. The catheter was subsequently severed and removed through an 11- Russian peel-away sheath. A Bentson wire was advanced through the peel-away sheath and exchanged for a 10-Russian nephrostomy. Contrast injection confirmed placement within the [...] was generated with voice-recognition technology. Errors in director of compliance can occur. Please interpret accordingly and contact a radiologist if there are any questions regarding the report. Signed by: Dr. Carla Thomas M.D. on 03/11/2017 2:37 PM Dictated By: CARLA THOMAS MD E lectronically Signed By: CARLA THOMAS MD on 03/12/17931 Transcribed By: VAN CARD on 03/12/17931 COPY TO: LIZ MUÑIZ MD CT ABDOMEN/PELVIS WO [place] [address] Patient Name: WESLY HUTCHINSON MR #: [id number] : 1960 Age/Sex: 56/F Req #: [id number] Adm Physician: Ordered by: LIZ MUÑIZ MD Report #: [id number] Location: ER Room/Bed: Procedure: [id number] CT/CT ABDOMEN/PELVIS WO Exam Da te: 03/11/17 [...] TO: LIZ MUÑIZ MD SPECIAL PROCEDURE IN POLICE BOOKING OFFICER [place] [address] Patient Name: WESLY HUTCHINSON MR #: [id number] : Age/Sex: 56/F Req #: [id number] Adm Physician: CARLIE PRECIADO MD Ordered by: JARET ESPINOSA MD Report #: [id number] Location: M ED/SURG3 Room/Bed: [facility] Procedure: [id number] IR/SPEC IAL PROCEDURE IN POLICE BOOKING OFFICER Exam Date: Exam Time: REPORT STATUS: Signed Date and Time: 12/31/2016 Procedure: Right per cutaneous nephrostomy catheter exchange mobile heavy equipment operator: Dr. Marlin Mercedes re-operative diagnosis: Right [...] Isovue-300 Estimated blood loss: Minimal Specimens: 10 Russian nephrostomy catheter, discarded Implants: New 10 Russian nephrostomy c atheter DISCUSSION: Informed consent for [...] over the wire and a new 10 Russian locking loop percutaneous the prostate was a [...] of a right percutaneous nephrostomy catheter (10 Russian locking loop) under fluoroscopic guidance. The patient should return to interventional r adiology in 8 weeks for routine catheter exchange. Signed by: Dr. Osiel Sullivan M.D. on 01/02/2017 7:09 AM Dictated By: OSIEL SULLIVAN MD Electro nically Signed By: OSIEL SULLIVAN MD on 01/02/17708 Transcribed By: DEYANIRA on 01/02/17708 COPY TO: JARET ESPINOSA MD CHEST XRAY LINE PLACEMENT [place] [address] Patient Name: WESLY HUTCHINSON MR #: [id number] : Age/Sex: 56/F Req #: [id number] Adm Physician: CARLIE PRECIADO MD Ordered by: NAMITA EDMONDS MD Report #: [id number] Location: [facility] Room/Bed: [facility] Procedure: [id number] DX/ EST XRAY LINE PLACEMENT Exam Date: [...] Transcribed By: SUSHANT on 12/29/161457 COPY TO: NAIMTA EDMONDS MD IR CONSULT [place] [address] Patient Name: WESLY HUTCHINSON MR #: [id number] : 1960 Age/Sex: 56/F Req #: [id number] Adm Physician: CARLIE PRECIADO MD Ordered by: JARET ESPINOSA MD Report #: [id number] Location: ED/SURG2 Room/Bed: [facility] Procedure: [id number] DX/IR C ONSULT Exam Date: Exam Time: REPORT STATUS: Signed Date and Time: 11/05/2016 Procedure: Replacement of right percutan eous nephrostomy catheter mobile heavy equipment operator: Dr. Sullivan Assistants: None Pre-operative diagnosis: [...] lo ss: Minimal Specimens: None Implants: 10 Russian locking loop nephrostomy farhat inage catheter Blood [...] anesthesia. Then under fluoroscopic guidance, a [address] was gently advanced through the existing percutaneous nephrostomy tract an d into the renal pelvis, with appropriate positioning confirmed by injection o f dilute contrast material. A 0.0 3 5-in. Amplatz wire was then advanced through the catheter and into the proximal right ureter. The catheter was ji mike and the tract was dilated. Then a 10 Russian locking loop nephrostomy [address] ter was advanced [...] of a right percutaneous nephrostomy catheter (10 Russian locking loop) through the existing subcutaneous tract. The patient should return to interventional r adiology for routine catheter exchange in 3 months. Signed by: Dr. Osiel Sullivan M.D. on 11/12/2016 10:12 AM Dictated By: OSIEL SULLIVAN MD Electr onically Signed By: OSIEL SULLIVAN MD on 11/12/16 1012 Transcribed By: DEYANIRA meehan 11/12/16 1012 COPY TO: JARET ESPINOSA MD SPECIAL PROCEDURE IN POLICE BOOKING OFFICER [place] [address] Patient Name: WESLY HUTCHINSON MR #: [id number] : 1960 Age/Sex: 56/F Req #: [id number] Adm Physician: CARLIE NIX MD Ordered by: JARET ESPINOSA MD Report #: [id number] Location: MED/SURG2 Room/Bed: [facility] Procedure: [id number] IR/SPEC IAL PROCEDURE IN POLICE BOOKING OFFICER Exam Date: Exam Time: REPORT STATUS: Signed Date and Time: 11/05/2016 Procedure: Replacement of right percutaneous nephrostomy catheter mobile heavy equipment operator: Dr. Slulivan Assistants: None Pre-operative diagnosis: Dislodged right percutaneous [...] blood loss: Minimal Specimens: None Implants: 10 Russian locking l oop nephrostomy drainage catheter Blood [...] anesthesia. Then under fluoroscopic guidance, a 5 Russian angled catheter was gently advanced through the existing percutaneous n ephrostomy tract and into the renal pelvis, with appropriate positioning confi rmed by injection of dilute contrast material. A 0.0 3 5-in. Amplatz wire was then advanced through the catheter and into the proximal right ureter. The catheter was removed and the tract was dilated. Then a 10 Russian locking loop nephrostomy catheter was advanced over [...] of a right percutaneous nephrostomy catheter (10 Russian lockin g loop) through the existing subcutaneous tract. The patient should return to interventional radiology for routine catheter exchange in 3 months. Si gned by: Dr. Osiel Sullivan M.D. on 11/12/2016 10:12 AM Dictated By: OSIEL SULLIVAN MD 1012 Transc ribed By: DEYANIRA on 11/12/16 1012 COPY TO: JARET ESPINOSA MD ABDOMEN-1VIEW (KUB) [place] [address] Patient Name: WESLY HUTCHINSON MR #: [id number] : 1960 Age/Sex: 56/F Req #: [id number] Adm Physician: Ordered by: ARIA ROCHE MD Report #: [id number] Location: ER Room/Bed: Procedure: [id number] DX/ABDOMEN-1VIEW (KUB) Exam D ate: 11/03/16 Exam [...] igned By: NAMITA LAWRENCE MD on 11/03/16 1453 Transcribed By: SUSHANT on 7 2993 COPY TO: ARIA ROCHE MD
[2019-07-04] MEDS: CEFEPIME 2 GM/NS 0.9% 100 ML 100 ML IV SCH ×2 (22:00→22:01)
[2019-07-04] MEDS ORDERED: DEXTROSE 50% SYRINGE 50 ML IV PRN (22:00)
[2019-07-04] MEDS: MORPHINE SULFATE 2 MG/ML SYR 1ML IV PRN (22:01)
--- NOTE | 2019-07-04 23:06 | NUR ---
ADMISSION NOTE: Received patient AAOx 4. Being admitted to 206 for a "complicated UTI" per admitting diagnosis. patient voices no concerns. Nephrostomy tubes to left and right flank intact and draining clear yellow normal smelling urine. Drainage bad attached to Left Nephrostomy tubing.Right nephrostomy tubing remains with the pephrostomy bag drain. V/S taken, blood pressure recorded a bit elevated but patient said it will come down "i am a bit anxious" . will recheck BP in 1 hr at 0000 hours V/S rounding. Admission assessment initiated. Glucose was 142mg/dl on admission. Patient has a Hx Of DM 2. Will initiate Accuchecks Ac[facility] per nursing interventions. Dr. Darby has been notified of patient per ER nurse giving report. IV Fluids started.Received IV antibiotic already per ER Nurse.
[2019-07-05] VITALS (8 sets, daily range): BP systolic 123–167; BP diastolic 71–91
--- NOTE | 2019-07-05 03:33 | NUR ---
URETERAL STENTS: Bilateral Ureteral stents 7FR Size each ; placed 06/09/2019 per scanned report during a prior visit Addendum: 07/05/19 at 0335 by Eloisa Van RN Amended: Links added.
--- NOTE | 2019-07-05 03:52 | NUR ---
PSYCH ASSESSMENT: Patient appeared teary and sad on admission. When i sat to talk to the patient she mentioned that she has been "depressed" for quite a while and she took antidepressants and she has been out for a while so she has not taken them. I comforted patient and asked patient if she has ever had any thoughts of hurting herself. She shook her head, also She did not say that she has ever thought of it but she did mention thinking several times to God to "take her away . Asked about ever trying to take her life she stated "NO". suicide intervention documented. At this time patient will closely be observed . She shows no current thoughts or attempts of suicide. She does need her antidepressants and antianxiety continued but she does not know the name of them and will have her son call to give the medication names . As for now, general med class listed under Home med Rec. Until then, Day nurse will be notified to keep a close watch on patient. MD will be notified by the day nurse routinely to possibly review,eval and treat her reported symptoms.
[2019-07-05 05:23] LABS: BASOPHILS # (AUTO) 0.1 (0.0-0.1); BASOPHILS % 0.6 % (0.0-1.0); EOSINOPHILS # (AUTO) 0.1 (0.0-0.4); EOSINOPHILS % 1.6 % (0.0-6.0); HEMATOCRIT 35.7 % (34.2-44.1); HEMOGLOBIN 10.5 g/dL (12.0-16.0); LYMPHOCYTES % 25.7 % (18.0-39.1); MEAN CORPUSCULAR HEMOGLOBIN 24.6 pg (28-32); MEAN CORPUSCULAR HGB CONC 29.4 g/dL (31-35); MEAN CORPUSCULAR VOLUME 83.8 fL (81-99); MONOCYTES # (AUTO) 0.6 (0.2-0.8); NEUTROPHILS # (AUTO) 5.1 (2.1-6.9); NEUTROPHILS % 64.6 % (38.7-80.0); PLATELET COUNT 284 x10e3/uL (140-360); RED BLOOD COUNT 4.26 x10e6/uL (3.6-5.1); RED CELL DISTRIBUTION WIDTH 14.9 % (11.7-14.4)
[2019-07-05 05:46] LABS: ALBUMIN 3.6 g/dL (3.5-5.0); ALBUMIN/GLOBULIN RATIO 0.7 (0.8-2.0); ANION GAP 17.6 mmol/L (8-16); CALCIUM 9.6 mg/dL (8.4-10.2); CREATININE, SERUM 1.31 mg/dL (0.57-1.11); POTASSIUM 3.6 mmol/L (3.5-5.1)
[2019-07-05] MEDS: CEFEPIME 2 GM/NS 0.9% 100 ML 100 ML IV SCH ×3 (06:33→22:46)
[2019-07-05] MEDS: MORPHINE SULFATE 2 MG/ML SYR 1ML IV PRN (06:33)
[2019-07-05] MEDS: ONDANSETRON HCL INJ 2MG/ML 2ML 2 MG/ML VIAL IV PRN ×2 (06:33→21:38)
[2019-07-05] MEDS: INSULIN REGULAR, HUMAN 100 UNIT/1 ML 3ML VIAL SQ SCH ×4 (07:30→21:00)
[2019-07-05] MEDS ORDERED: CEFAZOLIN SOD 1 GM/NS 50ML 100 ML IV ONE (07:32)
[2019-07-05] MEDS: METOPROLOL TARTRATE 50 MG TAB PO SCH ×2 (08:38→17:00)
[2019-07-05] MEDS: AMLODIPINE BESYLATE 5 MG TAB PO SCH (08:38)
[2019-07-05] MEDS: GLIPIZIDE 2.5 MG TABCR PO SCH (08:38)
--- NOTE | 2019-07-05 11:30 | NUR ---
pt decline maravilla leg bag .
--- NOTE | 2019-07-05 14:10 | History and Physical ---
PRIMARY CARE PHYSICIAN: Dr. Sulaiman Akins. CARROT HARVESTER: Gorge Darby MD CHIEF COMPLAINT: Increasing abdominal pain and recurrent infection with nausea and vomiting. HISTORY OF PRESENT ILLNESS: The patient is a 58-year-old female, who has right nephrostomy tube and left severe pain. The patient has an indwelling Echeverria catheter. The patient apparently increase in flank pain for the past 2 to 3 days associated with increasing fever, nausea, vomiting, generalized weakness. The patient came to the hospital for evaluation. Her WBC was 11.5 thousand. She does have a urinalysis with wbc's greater than 50, positive leukocyte esterase, cloudy urine, and minimal bacteria. She did have a Pseudomonas infection in the past. Cefepime initiated and Dr. Gorge Darby consulted. The patient is having pain and she is getting pain medication at this time. PAST MEDICAL HISTORY: The patient recently had nephrostomy tube exchange and stent exchange on June 10, 2019. The patient also has a history of cervical cancer, she has had radiation treatment here. The patient has chronic kidney disease, anxiety, depression disorder, dyslipidemia, hypertension. PAST SURGICAL HISTORY: She had multiple urological procedures cystoscopy. Right nephrostomy. Long-term Echeverria catheter placement. ALLERGIES: MEROPENEM. HOME MEDICATIONS: Norvasc, buspirone, glipizide, metoprolol, and Zofran. PHYSICAL EXAMINATION: VITAL SIGNS: T-max 100, blood pressure 174/120, pulse rate 96, and respirations 20. GENERAL: The patient is in pain, but she is not in distress. HEENT: Normocephalic and atraumatic. Anicteric. NECK: Supple grossly. PULMONARY: Diminished breath sounds. CARDIOVASCULAR: Tachycardia to normal sinus rhythm. ABDOMEN: CVA tenderness on the right abdominal tenderness without any guarding. It is soft. Right nephrostomy tube. Echeverria catheter in place. NEUROLOGIC: No focal deficit. LABORATORY DATA: Sodium 138, potassium 3.7, chloride 104, bicarb 20, BUN 19, creatinine 1.4, glucose 142. Lactic acid is 1.8. WBC 11.5, hemoglobin 11, hematocrit 36, and platelets 262. Urinalysis; cloudy urine with lot of bacteria, positive large leukocyte esterase and WBC greater than 50. IMPRESSION: 1. Pyelonephritis. 2. Recurrent urinary tract infection. 3. Flank pain, abdominal pain. 4. Indwelling nephrostomy tube and indwelling Echeverria catheter. PLAN: Continue with antibiotics. Consultation with Dr. Gorge Darby. Check urine culture. Pain control. Insulin sliding scale coverage. Home medication resumed. We will follow up on the patient's status. MD HARRIETT Villalba/ELIZ /[id number]
--- NOTE | 2019-07-05 19:20 | NUR ---
walking rounds complete, pt stable at this time, report given to oncoming nurse.
--- NOTE | 2019-07-05 19:20 | NUR ---
RECEIVED BEDSIDE SHIFT REPORT FROM DAY RN. PT IS ALERT AND ORIENTED X3. RESPIRATIONS ARE EVEN AND UNLABORED. RT NEPHROSTOMY TUBE DRAINING CLEAR YELLOW URINE- TO SMALL BAG. MEI TO GRAVITY. URINE CLOUDY WITH TISSUE IN BAG. 20 G SL IN LEFT HAND. DENIES PAIN. PT WATCHING TV. CALL LIGHT WTTHIN REAC. BED IN LOW POSITION. PT WANTS PAIN MEDS CHANGED. TO TYLENOL # 3. WILL CALL FOR NEW ORDERS.
[2019-07-05] MEDS ORDERED: SODIUM CHLORIDE 0.9% 250ML 250 ML ONE (22:35)
[2019-07-05] MEDS: ACETAMINOPHEN/CODEINE 300MG - 30MG TAB PO PRN (22:35)
--- NOTE | 2019-07-05 22:35 | NUR ---
PCALLED PHYSICIAN FOR PAIN MED CHANGE. TYLENOL #3 ORDERED AND 2 TABLETS GIVEN FOR PAIN.PT VERBALIZE FEELING DEPRESSED AND FEARFUL ABOUT THE WORLD, CARONA VIRUS AND HER FAMILY. SHE REFUSED WANTING TO TALK TO COMMITTEE MEMBER.
[2019-07-06] VITALS (7 sets, daily range): BP systolic 104–137; BP diastolic 59–73
--- NOTE | 2019-07-06 00:53 | NUR ---
PT C/O OF FEELING ANXIOUS. BUSPAR GIVEN FOR ANXIETY PRN.WILL MONITOR FOR DECREASE IN ANXIETY. PT C/O IV IN LT HAND PAINFUL. IV D/C WITH CATHETER INTACT. PRESSURE DRESSING TO SITE. IV STARTED IN RT UPPER ARM 20 G. SITE HEALTHY AND FLUSHES EASILY.
[2019-07-06] MEDS: BUSPIRONE HCL 10 MG TABLET PO PRN ×2 (00:56→12:50)
[2019-07-06] MEDS: ACETAMINOPHEN/CODEINE 300MG - 30MG TAB PO PRN ×3 (04:50→21:28)
[2019-07-06] MEDS: CEFEPIME 2 GM/NS 0.9% 100 ML 100 ML IV SCH ×3 (04:57→21:09)
[2019-07-06] MEDS: INSULIN REGULAR, HUMAN 100 UNIT/1 ML 3ML VIAL SQ SCH ×4 (07:30→21:20)
[2019-07-06] MEDS: METOPROLOL TARTRATE 50 MG TAB PO SCH ×2 (08:19→17:00)
[2019-07-06] MEDS: AMLODIPINE BESYLATE 5 MG TAB PO SCH (08:19)
[2019-07-06] MEDS: GLIPIZIDE 2.5 MG TABCR PO SCH (08:19)
[2019-07-06] MEDS: ONDANSETRON HCL INJ 2MG/ML 2ML 2 MG/ML VIAL IV PRN (11:05)
[2019-07-06] MEDS: FLUCONAZOLE 200 MG/100 ML 100 ML IV SCH (12:15)
[2019-07-06] MEDS: MORPHINE SULFATE 2 MG/ML SYR 1ML IV PRN (14:08)
[2019-07-07] VITALS (7 sets, daily range): BP systolic 106–137; BP diastolic 64–79
[2019-07-07] MEDS: CEFEPIME 2 GM/NS 0.9% 100 ML 100 ML IV SCH ×3 (05:38→21:50)
[2019-07-07] MEDS: INSULIN REGULAR, HUMAN 100 UNIT/1 ML 3ML VIAL SQ SCH ×4 (07:30→21:30)
[2019-07-07] MEDS: GLIPIZIDE 2.5 MG TABCR PO SCH (09:19)
[2019-07-07] MEDS: AMLODIPINE BESYLATE 5 MG TAB PO SCH (09:20)
[2019-07-07] MEDS: METOPROLOL TARTRATE 50 MG TAB PO SCH ×2 (09:20→16:50)
[2019-07-07] MEDS: ACETAMINOPHEN/CODEINE 300MG - 30MG TAB PO PRN ×2 (12:42→22:45)
[2019-07-07] MEDS: FLUCONAZOLE 200 MG/100 ML 100 ML IV SCH (12:42)
--- NOTE | 2019-07-07 14:55 | NUR ---
[facility] GUITAR INSTRUCTOR [place] POWELL [phone] CALLED AND OFFERED SERVICES FOR DISCHARGE ASSISTANCE, STATES WILL EMAIL AND FAX HOME HEALTH IN NETWORK.
[2019-07-07] MEDS: BUSPIRONE HCL 10 MG TABLET PO PRN (16:50)
[2019-07-08] VITALS (8 sets, daily range): BP systolic 123–139; BP diastolic 60–78
[2019-07-08] MEDS: CEFEPIME 2 GM/NS 0.9% 100 ML 100 ML IV SCH ×3 (05:11→22:00)
[2019-07-08 05:15] LABS: BASOPHILS # (AUTO) 0.1 (0.0-0.1); BASOPHILS % 0.6 % (0.0-1.0); EOSINOPHILS # (AUTO) 0.3 (0.0-0.4); EOSINOPHILS % 2.6 % (0.0-6.0); HEMATOCRIT 32.5 % (34.2-44.1); HEMOGLOBIN 9.9 g/dL (12.0-16.0); LYMPHOCYTES # (AUTO) 2.9 (1.0-3.2); LYMPHOCYTES % 29.9 % (18.0-39.1); MEAN CORPUSCULAR HEMOGLOBIN 24.9 pg (28-32); MEAN CORPUSCULAR HGB CONC 30.5 g/dL (31-35); MEAN CORPUSCULAR VOLUME 81.9 fL (81-99); MONOCYTES # (AUTO) 0.7 (0.2-0.8); NEUTROPHILS # (AUTO) 5.8 (2.1-6.9); NEUTROPHILS % 59.5 % (38.7-80.0); PLATELET COUNT 268 x10e3/uL (140-360); RED BLOOD COUNT 3.97 x10e6/uL (3.6-5.1)
[2019-07-08 05:38] LABS: ANION GAP 12.7 mmol/L (8-16); CALCIUM 9.1 mg/dL (8.4-10.2); CREATININE, SERUM 1.31 mg/dL (0.57-1.11); POTASSIUM 3.7 mmol/L (3.5-5.1)
[2019-07-08] MEDS: INSULIN REGULAR, HUMAN 100 UNIT/1 ML 3ML VIAL SQ SCH ×6 (07:30→21:00)
[2019-07-08] MEDS: GLIPIZIDE 2.5 MG TABCR PO SCH (08:53)
[2019-07-08] MEDS: AMLODIPINE BESYLATE 5 MG TAB PO SCH (08:53)
[2019-07-08] MEDS: METOPROLOL TARTRATE 50 MG TAB PO SCH ×2 (08:53→16:11)
[2019-07-08] MEDS: ACETAMINOPHEN/CODEINE 300MG - 30MG TAB PO PRN ×2 (09:00→13:35)
--- NOTE | 2019-07-08 10:39 | NUR ---
The pt. is resting quietly post earlier pain med.
[2019-07-08] MEDS: ONDANSETRON HCL INJ 2MG/ML 2ML 2 MG/ML VIAL IV PRN (11:27)
[2019-07-08] MEDS: FLUCONAZOLE 200 MG/100 ML 100 ML IV SCH (11:53)
--- NOTE | 2019-07-08 14:11 | NUR ---
I spoke with Dr. Rodriguez as requested by Dr. Darby for dc order and he is not ready for the pt to go home as she needs further antibiotics and he will maybe send her tomorrow.
[2019-07-08] MEDS: ONDANSETRON HCL 4 MG ORAL DISINTEGRATING TAB PO PRN (15:27)
--- NOTE | 2019-07-08 19:13 | NUR ---
Report to the oncoming nurse.
[2019-07-09 00:45] VITALS: BP 119/66
[2019-07-09] MEDS: ACETAMINOPHEN/CODEINE 300MG - 30MG TAB PO PRN (04:47)
[2019-07-09] MEDS: ONDANSETRON HCL 4 MG ORAL DISINTEGRATING TAB PO PRN (04:47)
[2019-07-09 05:45] VITALS: BP 117/58
[2019-07-09] MEDS: CEFEPIME 2 GM/NS 0.9% 100 ML 100 ML IV SCH (05:46)
[2019-07-09] MEDS: INSULIN REGULAR, HUMAN 100 UNIT/1 ML 3ML VIAL SQ SCH ×2 (07:30→11:30)
[2019-07-09 08:39] VITALS: BP 131/82
--- NOTE | 2019-07-09 09:00 | NUR ---
The pt. is awake and anticipating discharge home. She denies pain or discomfort at this time.
[2019-07-09] MEDS: GLIPIZIDE 2.5 MG TABCR PO SCH (09:12)
[2019-07-09] MEDS: METOPROLOL TARTRATE 50 MG TAB PO SCH (09:13)
[2019-07-09] MEDS: AMLODIPINE BESYLATE 5 MG TAB PO SCH (09:13)
[2019-07-09 09:59] VITALS: BP 131/82
--- NOTE | 2019-07-09 11:09 | Discharge Summary ---
PRIMARY CARE PHYSICIAN: Dr. Sulaiman Akins. ALPACA FARMER: Dr. Gorge Darby. FINAL DIAGNOSES: 1. Complicated urinary tract infection associated with nephrostomy tube on the right and left ureteral stent. 2. Pseudomonas and Enterococcus faecalis infection. 3. Candidiasis infection in the urine with multiple antibiotic treatment. 4. Baseline hypertension, diabetes, and anxiety disorder. 5. Baseline history of radiation and treatment for uterine cancer. 6. Long history of urinary obstruction. SUMMARY: The patient is a 58-year-old female with history of cervical cancer with radiation treatment and complicated with the urinary tract system. The patient had multiple stent placements in the past, had lot of scarring. She had a stent placement to the left ureter and also nephrostomy tube on the right. There was extensive scarring of the ureter. The patient has urinary bladder obstruction as well. Recurrent infection with recurrent hospitalization. At this time, the patient came in with complicated urinary tract infection and early pyelonephritis. The patient with fever and leukocytosis. The patient is doing much better now. She is on antibiotics. The urine culture grew out to be Pseudomonas candidiasis and also Enterococcus. It is sensitive to Cipro and Diflucan. The patient will go home with 2 weeks of Cipro and Diflucan. Tylenol No. 3 p.r.n. for pain. Celebrex 100 mg twice a day with meals for pain. Protonix 20 mg daily a.m. for stomach protection. The patient is otherwise stable. She will resume all home medication. She will follow up with Dr. Gorge Darby closely for urinary tract system management. Discussed with the patient at length. MD HARRIETT Villalba/ELIZ /[id number]
[2019-07-09 11:31] VITALS: BP 116/72
--- NOTE | 2019-07-09 11:52 | NUR ---
The pt's iv was discontinued and leg bag was supplied in preparation of the pt. discharging home. She reports that she doesn't feel that she is ready to go home. The pt. was encouraged to refrain from laying around and get out of bed frequently and to eat balanced meals. She was provided discharge instructions and prescriptions.
[2019-07-09] MEDS ORDERED: FLUCONAZOLE 100 MG TAB PO SCH (12:00)
--- NOTE | 2019-07-09 12:01 | NUR ---
to private car for self transport home. The pt's condition is stable.
== END 2019-07-09 12:09 | disposition home or self-care (01) | DRG 699 ==
LOC: ER 20:12 → ERHOLD 21:44 → MED/SURG2 22:49
PROVIDERS: ADMIT Internal Medicine; ATTEND Internal Medicine
DX: T83.511A Infection and inflammatory reaction due to indwelling urethral catheter, initial encounter (principal); N12 Tubulo-interstitial nephritis, not specified as acute or chronic; B37.49 Other urogenital candidiasis; B96.5 Pseudomonas (aeruginosa) (mallei) (pseudomallei) as the cause of diseases classified elsewhere; B95.2 Enterococcus as the cause of diseases classified elsewhere; I10 Essential (primary) hypertension; F41.9 Anxiety disorder, unspecified; Z92.3 Personal history of irradiation; E11.9 Type 2 diabetes mellitus without complications; N13.9 Obstructive and reflux uropathy, unspecified; Z85.42 Personal history of malignant neoplasm of other parts of uterus; Z96.0 Presence of urogenital implants; Z87.440 Personal history of urinary (tract) infections
CPT/HCPCS: 36415; 80048; 80053; 81001; 82948; 83605; 85025; 85610; 85730; 87040; 87086; 87186; 87635; 99284; J0690; J1450; J2270; J2405; J7030; J7050; Q0162

== ENCOUNTER → 2019-08-26 | Day surgery (SDC) | payer BC, OTHER ==
[2019-08-23 11:30] LABS: BASOPHILS # (AUTO) 0.1 (0.0-0.1); BASOPHILS % 0.7 % (0.0-1.0); EOSINOPHILS # (AUTO) 0.2 (0.0-0.4); HEMATOCRIT 36.1 % (34.2-44.1); HEMOGLOBIN 10.8 g/dL (12.0-16.0); LYMPHOCYTES # (AUTO) 2.3 (1.0-3.2); LYMPHOCYTES % 29.5 % (18.0-39.1); MEAN CORPUSCULAR HEMOGLOBIN 24.8 pg (28-32); MEAN CORPUSCULAR HGB CONC 29.9 g/dL (31-35); MEAN CORPUSCULAR VOLUME 82.8 fL (81-99); MONOCYTES # (AUTO) 0.4 (0.2-0.8); MONOCYTES % 5.5 % (4.4-11.3); NEUTROPHILS # (AUTO) 4.8 (2.1-6.9); NEUTROPHILS % 61.9 % (38.7-80.0); PLATELET COUNT 251 x10e3/uL (140-360); RED BLOOD COUNT 4.36 x10e6/uL (3.6-5.1); RED CELL DISTRIBUTION WIDTH 16.3 % (11.7-14.4)
[2019-08-23 11:40] LABS: INR 0.88; PROTHROMBIN TIME 12.5 seconds (11.9-14.5)
[2019-08-23 11:49] LABS: ANION GAP 13.6 mmol/L (8-16); CALCIUM 9.2 mg/dL (8.4-10.2); CREATININE, SERUM 0.96 mg/dL (0.57-1.11); POTASSIUM 3.6 mmol/L (3.5-5.1)
[~2019-08-26] MED LIST changes: +B&O 60MG R/S 60 MG SUPP PR ONE; +CEFEPIME 1GM/NS 0.9% 50 ML 50 ML IV ONE; +ETOMIDATE 2 MG/ML 10 ML INJ IV ONE; +FENTANYL CITRATE/PF 100MCG/2 ML INJ ONE; +IOPAMIDOL 300MG/ML 50ML INFUS..BTL IV ONE; +LIDOCAINE HCL 2% LOCAL INJ 5 ML SDV VIAL INJ ONE; +MIDAZOLAM HCL 2 MG/2 ML VIAL ONE; +ONDANSETRON HCL INJ 2MG/ML 2ML 2 MG/ML VIAL ONE; +PROPOFOL IV EMULSION 10 MG/ML 20 ML VIAL ONE; +SEVOFLURANE INHAL SOLN 250 ML PEN BTL ONE
[2019-08-26 14:05] VITALS: BP 135/76
--- NOTE | 2019-09-12 11:12 | Operative Report ---
DATE OF PROCEDURE: 08/26/2019 SURGEON: Gorge Darby MD PREOPERATIVE DIAGNOSES: 1. Left ureteral stricture. 2. Left hydronephrosis due to stricture. 3. Two separate left-sided indwelling ureteral stents. 4. Neurogenic bladder. 5. Atrophic vaginitis. 6. Grade 1 cystocele. 7. Grade 1 rectocele. POSTOPERATIVE DIAGNOSES: 1. Left ureteral stricture. 2. Left hydronephrosis due to stricture. 3. Two separate left-sided indwelling ureteral stents. 4. Neurogenic bladder. 5. Atrophic vaginitis. 6. Grade 1 cystocele. 7. Grade 1 rectocele. OPERATIONS PERFORMED: 1. Cystourethroscopy with complicated removal of left indwelling ureteral stent (separate procedure performed with separate scope for the diagnosis of stent). 2. Left ureteroscopy with dilation of ureteral stricture (separate procedure performed for the diagnosis of stricture). 3. Left ureteroscopy with (separate procedure performed for the diagnosis of the stent). 4. Cystourethroscopy with dilation of ureteral stricture (separate procedure performed for the diagnosis of stricture). 5. Radiological services for supervision and interpretation of stricture dilation. 6. Cystourethroscopy with insertion of two separate left-sided indwelling ureteral stents (separate procedure performed to relieve the hydronephrosis). 7. Interpretation of retrograde ureteropyelography. 8. Supervision of fluoroscopy, no radiologist present. 9. Interpretation of cystography. 10. Pelvic examination under anesthesia. ANESTHESIA: General. COMPLICATIONS: None. CLINICAL SUMMARY: Rita Heredia is a complicated 58-year-old woman with bilateral ureteral strictures. The right one was managed with a nephrostomy. She has failed stenting. She has a double stents on the left hand side to manage the hydronephrosis. She has complicated infections. 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 She is brought for the above procedure. She is aware of the risks of bleeding, infection, injury to adjacent structures, need for additional procedures and elected to proceed. The patient is overdue for her nephrostomy change. OPERATIVE PROCEDURE IN DETAIL: Informed consent was verified and Yan was properly identified and taken to the operating room, placed on the cystoscopy table in supine position. Anesthesia was uneventfully begun. The patient's Echeverria catheter was removed and her genitalia were prepared and draped in usual sterile fashion. The cystoscope sheath with obturator in place was atraumatically inserted into the patient's urethra and the bladder was drained. Panendoscopy of the bladder revealed no suspicious mucosal lesions. No tumors. There were radiation changes. There was blanching and there were these chronic changes that the patient has been condemned with as a result of radiotherapy. New stents were emerging from the left ureteral orifice and there was slightly encrusted. Then left ureteral orifice was displaced laterally. The guidewire was then placed alongside the stent and guided to the level of the patient's kidney. The stent was then grasped completely, removed and discarded. A double-lumen ureteral catheter was then utilized as a coaxial dilator sheath was advanced over the guidewire to the level of the stricture. We dilated across the stricture. A 2nd guidewire was left in place. Then with cystoscope and fluoroscopic guidance, two separate indwelling ureteral stents were then placed to coil the patient's kidney as well as the patient's bladder. The retaining sutures were removed. Interpretation of retrograde ureteropyelography contrast was instilled in a retrograde fashion on the left-hand side via the double-lumen ureteral catheter. There was chronic appearing hydronephrosis with calyceal blunting. The stents were in good position, coiled the patient's kidneys as well as the patient's bladder at the end of the case. Cystoscope was withdrawn. A Echeverria catheter was placed. Contrast was injected and performed cystography. A template for cystography. The bladder wall was irregular. The bladder with extremely small capacity. There was no right-sided reflux. There is no left-sided reflux up the stents. Pelvic examination under anesthesia revealed atrophic vaginitis with grade 1 cystocele and grade 1 rectocele. The patient was uneventfully reversed from anesthesia and taken to recovery in stable condition. There were no complications to the procedure. She tolerated the procedure well. PLANS: Plans will be to have the patient's nephrostomy changed soon and to have her follow up in 3 to 4 weeks for a Echeverria catheter change in the office. Gorge Darby MD [place]/MODL /[id number] cc: Dr. Sulaiman Akins
== END | disposition home or self-care (01) ==
LOC: OR 10:39
PROVIDERS: ATTEND Urology
DX: N13.1 Hydronephrosis with ureteral stricture, not elsewhere classified (principal); Z46.6 Encounter for fitting and adjustment of urinary device; N31.9 Neuromuscular dysfunction of bladder, unspecified; N95.2 Postmenopausal atrophic vaginitis; N81.10 Cystocele, unspecified; N81.6 Rectocele; Z93.6 Other artificial openings of urinary tract status; N26.1 Atrophy of kidney (terminal); I10 Essential (primary) hypertension; E11.9 Type 2 diabetes mellitus without complications; E66.9 Obesity, unspecified; F41.9 Anxiety disorder, unspecified; F32.9 Major depressive disorder, single episode, unspecified; Z88.1 Allergy status to other antibiotic agents; Z88.0 Allergy status to penicillin; Z01.810 Encounter for preprocedural cardiovascular examination; Z01.812 Encounter for preprocedural laboratory examination; Z11.59 Encounter for screening for other viral diseases; Z79.84 Long term (current) use of oral hypoglycemic drugs; Z85.41 Personal history of malignant neoplasm of cervix uteri; Z92.21 Personal history of antineoplastic chemotherapy; Z92.3 Personal history of irradiation
CPT/HCPCS: 36415 ×2; 52332; 52341; 74420; 80048; 82948; 85025; 85610; 85730; 93005; C1758 ×2; C2617; J0692; J2001; J2250; J2405; J2704; J3010; Q9967; U0002

== ENCOUNTER → 2019-09-26 | Outpatient (CLI) | payer BC, OTHER ==
[~2019-09-26] MED LIST changes: -B&O 60MG R/S 60 MG SUPP PR ONE; -CEFEPIME 1GM/NS 0.9% 50 ML 50 ML IV ONE; -ETOMIDATE 2 MG/ML 10 ML INJ IV ONE; +IOPAMIDOL 300MG/ML 100 ML INFUS..BTL IV ONE; -IOPAMIDOL 300MG/ML 50ML INFUS..BTL IV ONE; +LIDOCAINE HCL 1% LOCAL INJ 20 ML VIAL ONE; -LIDOCAINE HCL 2% LOCAL INJ 5 ML SDV VIAL INJ ONE; -ONDANSETRON HCL INJ 2MG/ML 2ML 2 MG/ML VIAL ONE; -PROPOFOL IV EMULSION 10 MG/ML 20 ML VIAL ONE; -SEVOFLURANE INHAL SOLN 250 ML PEN BTL ONE; +SODIUM CHLORIDE 0.9% 250ML 250 ML ONE
--- NOTE | 2019-09-26 16:42 | Diagnostic Imaging Report ---
Procedure: Right percutaneous nephrostomy catheter exchange. History: Routine maintenance. Offender Job Retention Specialist: Gutierrez Ballard M.D. Executor Of Estate: Eleni Hays Modality: Fluoroscopy. DOSE REDUCTION: The examination was performed according to departmental dose-optimization program. Fluoro time: 5.2 minutes. Radiation dose: 48.7 mGy air Kerma. Sedation: Intravenous conscious sedation was administered by a dedicated RN using one milligrams of Versed and 50 mcg of fentanyl IV. Vital signs were monitored throughout the procedure by a dedicated RN under direct supervision of Dr. Ballard, and remained stable. Physician intra-service sedation time was approximately 30 minutes. Anesthesia: Lidocaine local infiltration Medicines: Not applicable Contrast medium: Isovue 300, 20 cc. Estimated blood loss: < 5 cc. Technique: A discussion of the risks, benefits, and alternatives was carried out with the patient. A written informed consent was obtained. The patient expressed understanding and agreed to proceed. A universal timeout was performed prior to starting the procedure. The procedure room personnel used personal protective equipment. The operators used sterile gowns and gloves. The patient was laid prone on the procedure table. The right percutaneous nephrostomy site was prepped with chlorhexidine gluconate and draped in sterile fashion. A records section supervisor radiograph was performed showing the catheter to be in the expected location. Contrast injection through the catheter confirmed the catheter tip location in the collecting system. After local anesthetic infiltration, the retention suture was removed. The catheter was cut but could not be withdrawn over a wire. The catheter was encrusted close to the tip. A Glidewire was maneuvered alongside the catheter into the renal collecting system. The catheter was slowly pulled, the pigtail unformed, and the catheter removed. It was replaced with an identical catheter. The catheter position was confirmed with contrast injection. The catheter was secured to skin with nonabsorbable suture. The catheter was connected to a gravity drainage bag. An aseptic dressing was applied. The patient was transferred to the recovery area and discharged from the department in stable condition. Complications: Mild hematuria. Findings: As above. Impression: Successful fluoroscopic guided 12 Vincentian right nephrostomy catheter exchange as described above. Further management dictated by the clinical scenario. The nephrostomy catheter should be exchanged in approximately 10 weeks instead of 3 months. The referring doctor was made aware and agreed. The patient was instructed to increase the oral fluid intake. Thank you for the opportunity to assist in the care of your patient. Signed by: Gutierrez Ballard MD on 09/26/2019 4:39 PM
== END ==
LOC: DX 15:13
PROVIDERS: ATTEND Urology
DX: N13.5 Crossing vessel and stricture of ureter without hydronephrosis (principal)
CPT/HCPCS: J2001; J2250; J3010; J7050; Q9967; 50387; 99152; 99153

== ENCOUNTER 2019-10-31 10:52 | Emergency (ER) | payer BC, OTHER ==
[~2019-10-31] VITALS: Ht 152.4 cm; Wt 91.6 kg
[~2019-10-31 10:52] MED LIST changes: -FENTANYL CITRATE/PF 100MCG/2 ML INJ ONE; -IOPAMIDOL 300MG/ML 100 ML INFUS..BTL IV ONE; -LIDOCAINE HCL 1% LOCAL INJ 20 ML VIAL ONE; -MIDAZOLAM HCL 2 MG/2 ML VIAL ONE; -SODIUM CHLORIDE 0.9% 250ML 250 ML ONE
[2019-10-31] MEDS ORDERED: SODIUM CHLORIDE 0.9% 1000ML 1,000 ML IV STA (11:05)
--- NOTE | 2019-10-31 11:35 | Diagnostic Imaging Report ---
EXAMINATION: CHEST SINGLE (PORTABLE) INDICATION: Chest pain, urinary tract infection COMPARISON: Chest radiograph 06/04/2019 FINDINGS: LINES/TUBES:None LUNGS:The lungs are well-inflated. No focal consolidation or pulmonary edema. PLEURA:No pleural effusion or pneumothorax. MEDIASTINUM:The cardiomediastinal silhouette appears normal in size and shape. BONES/SOFT TISSUES:No acute osseous injury. ABDOMEN:No free air under the diaphragm. IMPRESSION: No focal pneumonia or pulmonary edema. Signed by: Brisa Soto MD on 10/31/2019 11:31 AM
[2019-10-31] MEDS ORDERED: ONDANSETRON HCL INJ 2MG/ML 2ML 2 MG/ML VIAL IV STA (12:02)
[2019-10-31] MEDS ORDERED: MORPHINE SULFATE 2 MG/ML SYR 1ML IV STA (12:02)
[2019-10-31 12:14] LABS: BASOPHILS % 0.5 % (0.0-1.0); EOSINOPHILS # (AUTO) 0.1 (0.0-0.4); EOSINOPHILS % 0.8 % (0.0-6.0); HEMATOCRIT 34.6 % (34.2-44.1); HEMOGLOBIN 10.6 g/dL (12.0-16.0); LYMPHOCYTES # (AUTO) 1.3 (1.0-3.2); LYMPHOCYTES % 16.1 % (18.0-39.1); MEAN CORPUSCULAR HEMOGLOBIN 25.5 pg (28-32); MEAN CORPUSCULAR HGB CONC 30.6 g/dL (31-35); MEAN CORPUSCULAR VOLUME 83.4 fL (81-99); MONOCYTES # (AUTO) 0.4 (0.2-0.8); MONOCYTES % 5.1 % (4.4-11.3); NEUTROPHILS # (AUTO) 6.1 (2.1-6.9); NEUTROPHILS % 76.9 % (38.7-80.0); PLATELET COUNT 266 x10e3/uL (140-360); RED BLOOD COUNT 4.15 x10e6/uL (3.6-5.1); RED CELL DISTRIBUTION WIDTH 14.4 % (11.7-14.4)
[2019-10-31 12:22] LABS: BILIRUBIN,URINE NEGATIVE (NEGATIVE); CLARITY,URINE TURBID (CLEAR); COLOR,URINE AMBER (YELLOW); KETONES,URINE NEGATIVE (NEGATIVE); LEUKOCYTE ESTERASE ,URINE MODERATE (NEGATIVE); NITRITE,URINE POSITIVE (NEGATIVE); PROTEIN,URINE DIPSTICK >=300 (NEGATIVE); URINE UROBILINOGEN 1 mg/dL (0.2 - 1)
[2019-10-31 12:23] LABS: INR 0.94; PROTHROMBIN TIME 13.1 seconds (11.9-14.5)
[2019-10-31 12:33] LABS: ALBUMIN 4.1 g/dL (3.5-5.0); ANION GAP 17.3 mmol/L (8-16); CALCIUM 9.2 mg/dL (8.4-10.2); CREATININE, SERUM 1.19 mg/dL (0.57-1.11); POTASSIUM 3.3 mmol/L (3.5-5.1)
[2019-10-31 12:37] LABS: BACTERIA,URINE MANY /HPF; EPITHELIAL CELLS,URINE FEW /LPF; RBC,URINE 21-50 /HPF (0-5)
--- NOTE | 2019-10-31 13:12 | Emergency Department Note ---
History of Present Illnes History of Present Illness Chief Complaint: Genitourinary History of Present Illness This is a 59 year old female PATIENT IN FROM HOME WITH COMPLAINTS OF SUSPECTED UTI X 3 DAYS; PATIENT WITH RIGHT NEPHROSTOMY TUBE AND MEI CATHETER. PATIENT DENIES FEVER, STATES THAT URINE IS FOUL SMELLING AND SHE IS FEELING VERY FATIGUED. RATES PAIN 2/10. PATIENT ALERT AND ORIENTED, RESP EVEN AND NONLABORED, APPEARS IN NO DISTRESS, AMBULATORY WITHOUT ASSISTANCE. Historian: Patient Arrival Mode: Car Cooker Meal Required: No Onset (how long ago): day(s) (3) Radiation: Reports non-radiation Severity: moderate Onset quality: gradual Timing of current episode: constant Chronicity: recurrent Context: Denies recent illness Relieving factors: none Exacerbating factors: none Associated symptoms: Reports denies other symptoms Past Medical/Family History Physician Review I have reviewed the patient's past medical and family history. Any updates have been documented here. Past Medical History Recent Fever: No Clinical Suspicion of Infectio: Yes New/Unexplained Change in Ment: No Past Medical History: UTI's, Anxiety, Depression Other Medical History: Cervical Cancer Healed, Nephrostomy tubes,Long standing Mei indwelling catheter, Ureteral stents, HTN Past Surgical History: None Other Surgery: Kidney/Ureteral Stent Placements/Replacements multiple Social History Smoking Cessation: Never Smoker Counseling Performed: No Alcohol Use: None Any Illegal Drug Use: No TB Exposure/Symptoms: No Physically hurt or threatened: No Family History Family history of heart diseas: No Other Last Tetanus: OOD Any Pre-Existing Lines (PICC,: No Review of Systems Review of Systems Constitutional: Reports no symptoms EENTM: Reports no symptoms Cardiovascular: Reports no symptoms Respiratory: Reports no symptoms Gastrointestinal: Reports no symptoms Genitourinary: Reports as per HPI Musculoskeletal: Reports no symptoms Integumentary: Reports no symptoms Neurological: Reports no symptoms Psychological: Reports no symptoms Endocrine: Reports no symptoms Hematological/Lymphatic: Reports no symptoms Physical Exam Related Data Allergies: Coded Allergies: Penicillins (Verified Allergy, Unknown, 10/31/19) meropenem (Verified Allergy, Unknown, REDNESS, ITCHING, 10/31/19) Triage Vital Signs Vital Signs Date Time Temp Pulse Resp B/P (MAP) Pulse Ox O2 Delivery O2 Flow Rate FiO2 10/31/19 10:56 97.5 101 20 174/101 99 Room Air Vital signs reviewed: Yes Physical Exam CONSTITUTIONAL Constitutional: Present well-developed, Present well-nourished HENT HENT: Present normocephalic, Present atraumatic, Present oropharynx clear/moist, Present nose normal HENT L/R: Present left ext ear normal, Present right ext ear normal EYES Eyes: Reports PERRL, Reports conjunctivae normal NECK Neck: Present ROM normal PULMONARY Pulmonary: Present effort normal, Present breath sounds normal CARDIOVASCULAR Cardiovascular: Present regular rhythm, Present heart sounds normal, Present capillary refill normal, Present normal rate GASTROINTESTINAL Abdominal: Present soft, Present nontender, Present bowel sounds normal GENITOURINARY Genitourinary: Present exam deferred, Present other (RIGHT NEPHROSTOMY SITE C&D WITHOUT EVID OF INFECTION, DARK CLOUDY URINE IN BAG, MEI IN PLACE WITH CLOUDY YELLOW URINE IN BAG) SKIN Skin: Present warm, Present dry MUSCULOSKELETAL Musculoskeletal: Present ROM normal NEUROLOGICAL Neurological: Present alert, Present oriented x 3, Present no gross motor or sensory deficits PSYCHOLOGICAL Psychological: Present mood/affect normal, Present judgement normal Results Laboratory Result Diagram: 10/31/19 1145 10/31/19 1145 Laboratory Laboratory Tests Test 10/31/19 11:45 White Blood Count 7.89 x10e3/uL (4.8-10.8) Red Blood Count 4.15 x10e6/uL (3.6-5.1) Hemoglobin 10.6 g/dL (12.0-16.0) Hematocrit 34.6 % (34.2-44.1) Mean Corpuscular Volume 83.4 fL (81-99) Mean Corpuscular Hemoglobin 25.5 pg (28-32) Mean Corpuscular Hemoglobin Concent 30.6 g/dL (31-35) Red Cell Distribution Width 14.4 % (11.7-14.4) Platelet Count 266 x10e3/uL (140-360) Neutrophils (%) (Auto) 76.9 % (38.7-80.0) Lymphocytes (%) (Auto) 16.1 % (18.0-39.1) Monocytes (%) (Auto) 5.1 % (4.4-11.3) Eosinophils (%) (Auto) 0.8 % (0.0-6.0) Basophils (%) (Auto) 0.5 % (0.0-1.0) Neutrophils # (Auto) 6.1 (2.1-6.9) Lymphocytes # (Auto) 1.3 (1.0-3.2) Monocytes # (Auto) 0.4 (0.2-0.8) Eosinophils # (Auto) 0.1 (0.0-0.4) Basophils # (Auto) 0.0 (0.0-0.1) Absolute Immature Granulocyte (auto 0.05 x10e3/uL (0-0.1) Prothrombin Time 13.1 seconds (11.9-14.5) Prothromb Time International Ratio 0.94 Activated Partial Thromboplast Time 31.0 seconds (23.8-35.5) Urine Color Tracy (YELLOW) Urine Clarity Turbid (CLEAR) Urine pH 7.5 (5 - 7) Urine Specific Jean 1.025 (1.010-1.025) Urine Protein >=300 (NEGATIVE) Urine Glucose (UA) Negative (NEGATIVE) Urine Ketones Negative (NEGATIVE) Urine Blood Large (NEGATIVE) Urine Nitrite Positive (NEGATIVE) Urine Bilirubin Negative (NEGATIVE) Urine Urobilinogen 1 mg/dL (0.2 - 1) Urine Leukocyte Esterase Moderate (NEGATIVE) Urine RBC 21-50 /HPF (0-5) Urine WBC 11-20 /HPF (0-5) Urine Epithelial Cells Few /LPF (NONE) Urine Bacteria Many /HPF (NONE) Sodium Level 140 mmol/L (136-145) Potassium Level 3.3 mmol/L (3.5-5.1) Chloride Level 105 mmol/L (98-107) Carbon Dioxide Level 21 mmol/L (22-29) Anion Gap 17.3 mmol/L (8-16) Blood Urea Nitrogen 14 mg/dL (7-26) Creatinine 1.19 mg/dL (0.57-1.11) Estimat Glomerular Filtration Rate 47 ML/MIN (60-) BUN/Creatinine Ratio 12 (6-25) Glucose Level 201 mg/dL (74-118) Calcium Level 9.2 mg/dL (8.4-10.2) Total Bilirubin 0.3 mg/dL (0.2-1.2) Aspartate Amino Transf (AST/SGOT) 13 IU/L (5-34) Alanine Aminotransferase (ALT/SGPT) 13 IU/L (0-55) Alkaline Phosphatase 111 IU/L (40-150) Total Protein 8.3 g/dL (6.5-8.1) Albumin 4.1 g/dL (3.5-5.0) Globulin 4.2 g/dL (2.3-3.5) Albumin/Globulin Ratio 1.0 (0.8-2.0) Lab results reviewed: Yes Imaging Imaging results reviewed: Yes Assessment & Plan Medical Decision Making MDM PT WITH CHRONIC UTI'S HAS NEPHROTOMY AND MEI - UA/CX FROM BOTH, CBC, CHEM, CXR - R/O UTI, LEUKOCYTOSIS, ELECTROLYTE ABNL Reassessment Reassessment DR ESPINOSA CAME TO ER, DC HOME ON BACTRIM (HE HAD CX/SENS FROM OFFICE), F/U WITH HIM IN CLINIC Assessment & Plan Final Impression: (1) UTI (urinary tract infection) due to urinary indwelling catheter Depart Disposition: HOME, SELF-CARE Last Vital Signs Date Time Temp Pulse Resp B/P (MAP) Pulse Ox O2 Delivery O2 Flow Rate FiO2 10/31/19 12:33 89 18 135/80 100 Room Air 10/31/19 10:56 97.5 Home Meds Reported Medications Metoprolol Tartrate (LOPRESSOR) 25 Mg Tab, 50 MG PO BID, #60 TAB 1 Refill 06/11/19 Glipizide (GLIPIZIDE ER) 5 Mg Tab.er.24, 2.5 MG PO DAILY, #30 1 Refill 06/11/19 Buspirone Hcl (BUSPIRONE HCL) 10 Mg Tablet, 10 MG PO BID PRN for ANXIETY 07/30/18 Medications in the ED Sodium Chloride 1,000 ml @ 0 mls/hr Q0M STAT IV Last administered on 10/31/19at 12:02; Admin Dose 999 MLS/HR; Start 10/31/19 at 11:05; Stop 10/31/19 at 11:09; Status DC Morphine Sulfate 4 mg NOW STAT IV Last administered on 10/31/19at 12:47; Admin Dose 4 MG; Start 10/31/19 at 12:02; Stop 10/31/19 at 12:08; Status DC Ondansetron HCl 4 mg NOW STAT IV Last administered on 10/31/19at 12:47; Admin Dose 4 MG; Start 10/31/19 at 12:02; Stop 10/31/19 at 12:08; Status DC LIZ MUÑIZ MD Oct 31, 2019 13:12
[2019-10-31 13:33] VITALS: BP 142/72
== END 2019-10-31 13:46 | disposition home or self-care (01) ==
LOC: ER 11:57
DX: T83.518A Infection and inflammatory reaction due to other urinary catheter, initial encounter (principal); I10 Essential (primary) hypertension; F41.9 Anxiety disorder, unspecified
CPT/HCPCS: 36415; 71045; 80053; 81001; 85025; 85610; 85730; 87040; 87086; 87186; 99284; J2270; J2405; J7030

== ENCOUNTER 2019-11-29 19:20 | Emergency (ER) | payer BC, OTHER ==
[~2019-11-29] VITALS: Ht 152.4 cm; Wt 85.3 kg
--- NOTE | 2019-11-29 20:13 | Emergency Department Note ---
History of Present Illnes History of Present Illness Chief Complaint: Genitourinary History of Present Illness This is a 59 year old female Patient states she has a mei catheter and states she felt the ballon pop at approx 1600 today. . Historian: Patient Arrival Mode: Car On Car Supervisor Required: No Onset (how long ago): hour(s) (4) Location: MEI CATHETER Quality: BALLOON POPPED AND MEI LEAKING Radiation: Reports non-radiation Severity: mild Onset quality: sudden Duration (how long): hour(s) (4) Timing of current episode: constant Progression: unchanged Chronicity: new Context: Denies recent illness, Denies recent surgery Relieving factors: none Exacerbating factors: none Associated symptoms: Reports denies other symptoms Treatments prior to arrival: none Past Medical/Family History Physician Review I have reviewed the patient's past medical and family history. Any updates have been documented here. Past Medical History Recent Fever: No Clinical Suspicion of Infectio: No New/Unexplained Change in Ment: No Past Medical History: UTI's, Anxiety, Depression Other Medical History: Cervical Cancer Healed, Nephrostomy tubes,Long standing Mei indwelling catheter, Ureteral stents, HTN Past Surgical History: None Other Surgery: Kidney/Ureteral Stent Placements/Replacements multiple Social History Smoking Cessation: Never Smoker Counseling Performed: Yes Any Illegal Drug Use: No Family History Family history of heart diseas: No Other Last Tetanus: OOD Review of Systems Review of Systems Constitutional: Reports no symptoms EENTM: Reports no symptoms Cardiovascular: Reports no symptoms Respiratory: Reports no symptoms Gastrointestinal: Reports no symptoms Genitourinary: Reports as per HPI Musculoskeletal: Reports no symptoms Integumentary: Reports no symptoms Neurological: Reports no symptoms Psychological: Reports no symptoms Endocrine: Reports no symptoms Hematological/Lymphatic: Reports no symptoms Physical Exam Related Data Allergies: Coded Allergies: Penicillins (Verified Allergy, Unknown, 10/31/19) meropenem (Verified Allergy, Unknown, REDNESS, ITCHING, 10/31/19) Triage Vital Signs Vital Signs Date Time Temp Pulse Resp B/P (MAP) Pulse Ox O2 Delivery O2 Flow Rate FiO2 11/29/19 19:31 98.5 100 20 150/93 100 Room Air Vital signs reviewed: Yes Physical Exam CONSTITUTIONAL Constitutional: Present well-developed, Present well-nourished HENT HENT: Present normocephalic, Present atraumatic, Present oropharynx clear/moist, Present nose normal HENT L/R: Present left ext ear normal, Present right ext ear normal EYES Eyes: Reports PERRL, Reports conjunctivae normal NECK Neck: Present ROM normal PULMONARY Pulmonary: Present effort normal, Present breath sounds normal CARDIOVASCULAR Cardiovascular: Present regular rhythm, Present heart sounds normal, Present capillary refill normal, Present normal rate GASTROINTESTINAL Abdominal: Present soft, Present nontender, Present bowel sounds normal GENITOURINARY Genitourinary: Present other (MEI CATHETER PRESENT ON ARRIVAL) SKIN Skin: Present warm, Present dry MUSCULOSKELETAL Musculoskeletal: Present ROM normal NEUROLOGICAL Neurological: Present alert, Present oriented x 3, Present no gross motor or sensory deficits PSYCHOLOGICAL Psychological: Present mood/affect normal, Present judgement normal Exam - additional comments PT WITH LEFT NEPHROSTOMY TUBE PRESENT, DARK URINE IN BAG. Assessment & Plan Medical Decision Making MDM PT WITH MEI MALFUNCTION I CALLED DR ESPINOSA, STATES INSERT NEW MEI CATHETER AND SEND URINE CULTURE Reassessment Reassessment time: 20:52 Reassessment MEI REPLACED URINE DRAINING FROM MEI PT DISCHARGED HOME, FOLLOW UP WITH DR ESPINOSA SCHEDULED Assessment & Plan Final Impression: (1) Malfunction of Mei catheter Depart Disposition: HOME, SELF-CARE Last Vital Signs Date Time Temp Pulse Resp B/P (MAP) Pulse Ox O2 Delivery O2 Flow Rate FiO2 11/29/19 19:44 96 20 146/85 100 Room Air 11/29/19 19:31 98.5 Home Meds Reported Medications Metoprolol Tartrate (LOPRESSOR) 25 Mg Tab, 50 MG PO BID, #60 TAB 1 Refill 20 Glipizide (GLIPIZIDE ER) 5 Mg Tab.er.24, 2.5 MG PO DAILY, #30 1 Refill 06/10/20 Buspirone Hcl (BUSPIRONE HCL) 10 Mg Tablet, 10 MG PO BID PRN for ANXIETY 07/30/18 IRMA KINNEY MD Nov 29, 2019 20:13
--- OUTSIDE RECORDS SUMMARY | 2019-11-29 20:51 | XMS REPORT | Clinical Summary ---
Author Author [facility] Organization [facility] Address Unknown Phone Unavailable Care Team Providers Care Knuckler Name Role Phone PCP Unavailable Allergies Comments [...] ot Implanted Type Area Manufactur er 05/10/2016 [id number] / / [id number] Implant Gu Stent [employer] Stent Right: Cook Double Pigtail 7fr X 24cm [id number] - Kidney(s) Ur [id number] Implanted: Qty: 1 on 09/07/2013 by Kelby Steen ResidentMD at [facility] Results Not on fileafter 11/28/2018 Insurance Type Payer Benefit Subscriber ID Effective Phone Address Plan / Dates Group BC/BS BCBS HMO xxxxxxxxxxxx 2014-P [phone] [id number] [facility] [place] [id number] Advance Directives Date Inactivated Comments Code Status Date Activated 09/17/2014 6:47 PM Full Code 09/14/2014 4:06 AM 06/17/2013 4:20 PM Full Code 06/11/2013 11:43 PM 04/24/2013 1:19 AM Full Code 04/23/2013 6:29 AM 10/30/2012 4:29 PM Full Code 10/29/2012 6:24 AM 02/18/2011 10:06 PM Full Code 02/15/2011 10:55 PM
--- OUTSIDE RECORDS SUMMARY | 2019-11-29 20:51 | XMS REPORT | Continuity of Care Document ---
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 [facility] Medications Medication Details Route Status Patient Instructions Ordering Provider Order Date Source Ativan 1 mg, Route: PO, Drug f orm: TAB, ONCE, Dosing Weight 86.364, kg, Priority: STAT, Start date: 03/09/15 23:44:00, Stop date: 03/09/15 23:44:00 No Longer Active 03/10/2015 [facility] tramadol hydrochloride 50 MG Oral Tablet 50 mg = 1 tab, PO, BID, X 15 day, # 30 tab, 0 Refill(s) Active 03/10/2015 [facility] tramadol hydrochloride 50 MG Oral Tablet [Ultram] 1 - 2 tabs, PO, Q4-6H, PRN as needed for pain, X 7 day, # 12 tab, 0 Refill(s) Active 02/16/2015 [facility] Sulfamethoxazole 800 MG / Trimethoprim 1 60 MG Oral Tablet [Bactrim] 1 tab, PO, BID, # 20 tab, 0 Refill(s) Active 02/16/2015 [facility] Rocephin 1 gm, Route: IM, ONCE , Dosing Weight 84.091, kg, Start date: 02/15/15 17:48:00, Stop date: 02/15/15 17:48:00 Inactive 02/15/2015 [facility] Ondansetron Notes: (Same as: Dennise bowles) MEDICATION WASTE Product Size: 4 mg Product Wasted: ___ mg Inactive 02/15/2015 [facility] Sodium Chloride 0.154 MEQ/ML Injectable Solution 1,000 mL, 1000 ml/hr, Infuse Over: 1 hr, Route: IV, 1,000, Drug form: INJ, ONCE, Priority: STAT, Dosing Weight 84.091 kg, Start date: 02/15/15 15:36:00, Duration: 1 doses or times, Stop date: 02/15/15 15:36:00 Inactive 02/15/2015 [facility] Saline Flush 0.9% Notes: Same as: BD Posiflush Sterile Inactive 02/15/2015 [facility] Allergies, Adverse Reactions, Alerts Substance Category Reaction Severity Reaction type Status Date Reported Comments Source diphenhydrAMINE Assertion Drug allergy Active [facility] Immunizations No Data Provided for This Section Results Order Name Results Value Reference Range Date Interpretation Comments Source URINE AND STOOL UA Urobilinogen <=1.0 mg/dL 0.1 - 1.0 02/15/2015 [facility] URINE AND STOOL UA Protein 100 mg/dL Negative mg/dL 02/15/2015 [facility] URINE AND STOOL UA Glucose Negative mg/dL Negative mg/dL 02/15/2015 [facility] URINE AND STOOL UA Ketones Negative mg/dL Negative mg/dL 02/15/2015 [facility] URINE AND STOOL UA Bili Negative *NA* (02/15/15 4:54 PM) Negative 02/15/2015 [facility] URINE AND STOOL UA Blood Moderate *ABN* (02/15/15 4:54 PM) Negative 02/15/2015 [facility] URINE AND STOOL UA Nitrite Positive *ABN* (02/15/15 4:54 PM) Negative 02/15/2015 [facility] URINE AND STOOL UA Leuk Est Large *ABN* (02/15/15 4:54 PM) Negative 02/15/2015 [facility] URINE AND STOOL UA Sq Epi Few /LPF Few /LPF 02/15/2015 [facility] URINE AND STOOL UA WBC >182 0 - 5 02/15/2015 [facility] URINE AND STOOL UA RBC 155 0 - 2 02/15/2015 [facility] URINE AND STOOL UA Bacteria Many /HPF None Seen /HPF 02/15/2015 [facility] URINE AND STOOL UA WBC Cast 34 <=0 /LPF 02/15/2015 [facility] URINE AND STOOL UA Mucus Few /LPF None Seen /LPF 02/15/2015 [facility] URINE AND STOOL UA Color Yellow *NA* (02/15/15 4:54 PM) Yellow 02/15/2015 [facility] URINE AND STOOL UA Turbidity Marked *ABN* (02/15/15 4:54 PM) Clear 02/15/2015 [facility] URINE AND STOOL UA pH 5.0 5.0 - 8.0 02/15/2015 [facility] URINE AND STOOL UA Spec Grav 1.018 <=1.030 02/15/2015 [facility] CHEM PANEL A/G Ratio 0.6 0.7 - 1.6 02/15/2015 [facility] CHEM PANEL Globulin 5.8 2.0 - 4.0 02/15/2015 [facility] CHEM PANEL B/C Ratio 12 6 - 25 02/15/2015 [facility] CHEM PANEL AGAP 12.6 10.0 - 20.0 02/15/2015 [facility] CHEM PANEL Alk Phos 115 39 - 136 02/15/2015 [facility] CHEM PANEL AST 28 0 - 37 02/15/2015 [facility] CHEM PANEL Bili Total 0.3 0.2 - 1.3 02/15/2015 [facility] CHEM PANEL eGFR 73 02/15/2015 [...] should be multiplied by the estimated BMI. [facility] CHEM PANEL ALT 25 0 - 65 02/15/2015 [facility] CHEM PANEL Albumin Lvl 3.4 3.5 - 5.0 02/15/2015 [facility] CHEM PANEL Total Protein 9.2 6.4 - 8.4 02/15/2015 [facility] CHEM PANEL Calcium Lvl 9.1 8.5 - 10.5 02/15/2015 [facility] CHEM PANEL CO2 26 24 - 32 02/15/2015 [facility] CHEM PANEL Sodium Lvl 140 135 - 145 02/15/2015 [facility] CHEM PANEL Chloride Lvl 106 95 - 109 02/15/2015 [facility] CHEM PANEL Potassium Lvl 4.6 3.5 - 5.1 02/15/2015 [facility] CHEM PANEL Creatinine Lvl 0.91 0.50 - 1.40 02/15/2015 [facility] CHEM PANEL BUN 11 7 - 22 02/15/2015 [facility] CHEM PANEL Glucose Lvl 118 70 - 99 02/15/2015 [facility] ENDOCRINOLOGY S Preg Ne gative *NA* (02/15/15 4:40 PM) Negative 02/15/2015 [facility] HEMATOLOGY Lymphocytes 32.8 20.0 - 40.0 02/15/2015 [facility] HEMATOLOGY Segs 60.0 45.0 - 75.0 02/15/2015 [facility] HEMATOLOGY Eosinophils # 0.2 0.0 - 0.5 02/15/2015 [facility] HEMATOLOGY Basophils # 0.2 0.0 - 0.2 02/15/2015 [facility] HEMATOLOGY Monocytes 4.6 2.0 - 12.0 02/15/2015 [facility] HEMATOLOGY Eosinophils 1.2 0.0 - 4.0 02/15/2015 [facility] HEMATOLOGY Basophils 1.4 0.0 - 1.0 02/15/2015 [facility] HEMATOLOGY Segs-Bands # 7.3 1.5 - 8.1 02/15/2015 [facility] HEMATOLOGY Monocytes # 0.6 0.0 - 0.8 02/15/2015 [facility] HEMATOLOGY Lymphocytes # 4.0 1.0 - 5.5 02/15/2015 [facility] HEMATOLOGY Plt Morph Clump ed (02/15/15 4:40 PM) 02/15/2015 [facility] HEMATOLOGY RBC Morph Emily l (02/15/15 4:40 PM) 02/15/2015 [facility] HEMATOLOGY MPV 8.7 7.4 - 10.4 02/15/2015 [facility] HEMATOLOGY WBC 12.0 3.7 - 10.4 02/15/2015 [facility] RBC 4.90 4.20 - 5.40 02/15/2015 [facility] HEMATOLOGY Hct 39.0 36.0 - 48.0 02/15/2015 [facility] HEMATOLOGY MCV 79.7 80.0 - 98.0 02/15/2015 [facility] HEMATOLOGY Hgb 12.0 12.0 - 16.0 02/15/2015 [facility] HEMATOLOGY RDW 14.8 11.5 - 14.5 02/15/2015 [facility] HEMATOLOGY MCHC 30.8 32.0 - 36.0 02/15/2015 [facility] HEMATOLOGY Platelet 220 133 - 450 02/15/2015 [facility] HEMATOLOGY MCH 24.5 27.0 - 31.0 02/15/2015 [facility] Pathology Reports No Data Provided for This Section Diagnostic Reports No Data Provided for This Section Consultation Notes No Data Provided for This Section Discharge Summaries No Data Provided for This Section History and Physicals No Data Provided for This Section Vital Signs Vital Sign Value Date Comments Source Weight 86.364 03/10/2015 [facility] Temperature Oral (F) 97.9 F 03/10/2015 [facility] Respitory Rate 18 03/10/2015 [facility] Heart Rate 91 03/10/2015 [facility] Systolic (mm Hg) 140 03/10/2015 [facility] Diastolic (mm Hg) 99 03/10/2015 [facility] Temperature Oral (F) 98.4 F 02/16/2015 [facility] Respitory Rate 18 02/16/2015 [facility] Heart Rate 97 02/16/2015 [facility] Systolic (mm Hg) 142 02/16/2015 [facility] Diastolic (mm Hg) 82 02/16/2015 [facility] Systolic (mm Hg) 147 02/15/2015 [facility] Diastolic (mm Hg) 93 02/15/2015 [facility] Weight 84.091 02/15/2015 [facility] BMI Calculated 36.21 02/15/2015 [facility] Height 152.4 cm 02/15/2015 [facility] Heart Rate 76 02/15/2015 [facility] Respitory Rate 18 02/15/2015 [facility] Temperature Oral (F) 98.1 F 02/15/2015 [facility] Encounters Location Location Details Encounter Type Encounter Number Reason For Visit Attending Provider ADM Date DC Date Status Source [facility] [id number] 01 Ceeандрей Feliz 02/15/2015 02/16/2015 [facility] [id number] 02 Kelby Lyons 03/10/2015 03/10/2015 [facility] Procedures No Data Provided for This Section Assessment and Plan No Data Provided for This Section Plan of Care No Data Provided for This Section Social History Social History Date Source Social History TypeResponse Smoking Status Never smoker; Exposure to Tobacco Smoke None; Cigarette Smoking Last 365 Days No; Reg Smoking Cessation Counseling No 03/10/2015 [facility] Family History No Data Provided for This Section Advance Directives No Data Provided for This Section Functional Status No Data Provided for This Section
--- OUTSIDE RECORDS SUMMARY | 2019-11-29 20:55 | XMS REPORT | Continuity of Care Document ---
Author Author [facility] t Organization [facility] Address [address] [place] [address] Phone Unavailable Care Team Providers Care Kalsominer Name Role Phone NONSTAFF PCP Unavailable Tova MUÑIZ Attphys Unavailable HAMPEL, JARET Attphys Unavailable FIGUEROA CARD Attphys Unavailable SANDHIRLUZ MARINA Attphys Unavailable JULIETA, VINNY Attphys Unavailable CHAO, T CHINCHILLA Attphys Unavailable MONTOYA, SOUHEIL Attphys Unavailable Leon SULLIVAN Attphys Unavailable ZOMPA A JUDAH Attphys Unavailable CARLIE NIX Attphys Unavailable Daniel Lyons Attphys FadowoleJose Awalsaida Mike Attphys [phone] FIGUEROA CARD Admphys Unavailable HAMPEL, JARET Admphys Unavailable JULIETA, VINNY Admphys Unavailable MONTOYA, SOUHEIL Admphys Unavailable CARLIE NIX Admphys Unavailable Payers Payer Name Policy Type Policy Number Effective Date Expiration Date S angela [employer] Exchange [id number] 2018 00:00:00 02-08 00:00:00 [facility] Cdc Review [id number] [facility] Problems Condition Name Condition Details Condition Category Status Onset Date Resolution Date Last Treatment Date Treating Clinician Comments Source Complicated urinary tract infection UTI (urinary tract infection ) Problem Active 2015-10-11 00:00:[address] [facility] GEN. PAIN GEN. PAIN Active 03/09/2015 [facility] Active 2015-03-09 00:00:00 2015-10-25 22:11:00 [facility] WEAKNESS WEAK NESS Active 02/15/2015 [facility] Diagnosis Active 2015-02-15 00:00:00 2015-02-15 16:11:00 [facility] BMI 36.0-36.9,adult BMI 36.0-36.9,adult Disease Active 2013-08-03 00:00 :00 Overview: Obese [facility] Obese Obese Disease Active 2013-08-03 00:00:00 [facility] Complicated UTI (urinary tract infection) Complicated UTI (urinary tract infection) Disease Active 2013-06-14 00:00:00 [facility] Hematuria Hematuria Disease Active 2013-06-11 00:00:00 [facility] Fatigue Fatigue Disease Active 2012-06-02 00:00:00 [facility] Myalgia Myalgia Disease Active 2012-06-02 00:00:00 [facility] Fever Fever Disease Active 2012-06-02 00:00:00 [facility] UTI (lower urinary tract infection) UTI (lower urinary tract inf ection) Disease Active 2011-12-10 00:00:00 [facility] Hydronephrosis, right Hydronephrosis, right Disease Active 201 03-12-07 00:00:00 [facility] Flank pain Flank pain Disease Active 2011-02-15 00:00:00 [facility] Cough Cough Disease Active 2010-05-16 00:00:00 [facility] Methicillin resistant Staphylococcus aureus (organism) Methicillin resistant Staphylococcus aureus (organism) Active Problem 03/12/2015 Problem added by Discern Expert. [facility] Problem Active 2015-03-12 06:01:38 [facility] Colitis Colitis Problem Active [facility] Hypokalemia Hypokalemia Problem Active [facility] Pyelonephritis Pyelonephritis Problem Active [facility] Obstruction of urinary tract Urinary obstruction Problem Active [facility] Nephrostomy status Nephrostomy status Problem Active [facility] Complication of nephrostomy Nephrostomy complication Problem Active [facility] Urinary tract infection due to Enterococcus UTI (urina ry tract infection) due to Enterococcus Problem Active 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 03/09/2015 03/12/2015 [facility] Problem 2015-03-09 06:00:00 2015-03-12 06:01:38 2015-03-12 06:01:38 [facility] Discharge Diagnosis: Urinary tract infection, site not specified Discharge Diagnosis: Urinary tract infection, site not specified 02/15/2015 02/18/2015 [facility] Problem 2015-02-15 06:00:00 2015 06:06:10 2015-02-18 06:06:10 [facility] Allergies, Adverse Reactions, Alerts Allergy Name Allergy Type Status Severity Reaction(s) Onset Date Inacti ve Date Treating Clinician Comments Source Penicillin Allergy to substance Active 2019-10-31 00:00:00 [facility] Meropenem Allergy to substance Active REDNESS, ITCHING 00:00:00 [facility] Diphenhydramine Propensity to adverse reactions to drug Active Other 2008-12-28 00:00:00 BECAME ANXIOUS AND FELT STRA NGE [facility] diphenhydrAMINE diphenhydrAMINE Active [facility] Family History Family Member Diagnosis Comments Start Date Stop Date Source Natural father Diabetes [facility] Social History Social Habit Start Date Stop Date Quantity Comments Source Alcohol intake 2014-09-14 00:00:00 2014-09-14 00:00:00 Current non-drinker of alcohol (finding) [facility] Sex Assigned At 1960 00:00:00 1960 00:00:00 Female [facility] Smoking Status Start Date Stop Date Source Never smoker [facility] Medications Ordered Medication Name Filled Medication Name Start Date Stop Da te Current Medication? Ordering Clinician Indication Dosage Frequency Signature (SIG) Comments Components Source Acetaminophen Acetaminophen 2016-12-31 09:47:00 2018-01-08 00:00:00 No 650 Every 4 Hours as needed for Pain And Temperature [facility] Acetaminophen/Codeine Phosphate (Tylenol # 3*) 1 Ea TA B Acetaminophen/Codeine Phosphate (Tylenol # 3*) 1 Ea TAB 2016-12-31 09:47:00 2018-01-08 00:00:00 No 2 Every 6 Hours as needed for Pain [facility] Meropenem (Merrem) 500 Mg INJ Meropenem (Merrem) 500 Mg INJ 2016 09:47:00 2017-12-15 00:00:00 No 500 Q8h@05,13,21 [facility] Lisinopril Lisinopril 2016-11-06 12:33:00 2018-01-08 00:00:00 No 2.5 Daily [facility] Metformin Hcl Metformin Hcl 2016-11-06 12:33:00 2016-12-28 00:00:00 No 500 Twice A Day [facility] Fluconazole Fluconazole 2016-09-13 10:56:00 2016-11-03 00:00:00 No 200 Daily [facility] Levofloxacin (Levaquin) 500 Mg TABLET Levofloxacin (Levaquin ) 500 Mg TABLET 2016-09-13 10:56:00 2016-11-03 00:00:00 No 500 Daily [facility] Sulfamethoxazole/Trimethoprim (Bactrim Ds Tablet) 1 Ea ch TABLET Sulfamethoxazole/Trimethoprim (Bactrim Ds Tablet) 1 Each TABLET 2016-09-13 10:56:00 2016-11-03 00:00:00 No 1 Twice A Day [facility] Ativan 2015-03-10 05:44:00 No 1 mg, Route: PO, Drug form: TAB, ONCE, Dosing Weight 86.364, kg, Priority: STAT, Start date: 03/09/15 23:44:00, Stop date: 03/09/15 23:44:00 [facility] tramadol hydrochloride 50 MG Oral Tablet 2015-03-10 05:43:00 Yes 50 mg = 1 tab, PO, BID, X 15 day, # 30 tab, 0 Refill(s) [facility] tramadol hydrochloride 50 MG Oral Tablet [Ultram] 2015-02-16 01:10:00 Yes 1 - 2 tabs, PO, Q4-6 H, PRN as needed for pain, X 7 day, # 12 tab, 0 Refill(s) [facility] Sulfamethoxazole 800 MG / Trimethoprim 160 MG Oral Tablet [B actrim] 2015-02-16 01:09:00 Yes 1 tab, PO, BID, # 20 tab, 0 Refill(s) [facility] Rocephin 2015-02-15 23:48:00 No 1 gm, Route: IM, ONCE, Dosing Weight 84.091, kg, Start date: 02/15/15 17:48:00, Stop date: 02/15/15 17:48:00 [facility] Ondansetron 2015-02-15 21:36:00 No Notes: (Same as: Wiley) MEDICATION WASTE Product Size: 4 mg Product Wasted: ___ mg [facility] Sodium Chloride 0.154 MEQ/ML Injectable Solution 2015-02-15 21:3 6:00 No 1,000 mL, 1000 ml/hr, Infuse Over: 1 hr, Route: IV, 1,000, Drug form: INJ, ONCE, Priority: STAT, Dosing Weight 84.091 kg, Start date: 02/15/15 15:36:00, Duration: 1 doses or times, Stop date: 02/15/15 15:36:00 [facility] Saline Flush 0.9% 2015-02-15 21:36:00 No Notes: Same as: BD Posiflush Sterile [facility] traMADol (ULTRAM) 50 mg tablet 2014-09-17 16:46:57 Yes 50mg Take 50 mg by mouth as needed. [facility] acetaminophen (TYLENOL) 325 mg tablet 2014-09-17 16:46:57 Y es 650mg Take 650 mg by mouth every 6 hours as needed. [facility] metFORMIN (GLUCOPHAGE) 500 mg tablet 2014-09-17 16:46:57 Ye s 500mg Take 500 mg by mouth 2 times daily (with meals). [facility] fenofibrate nanocrystallized (TRICOR) 145 mg tablet 09-17 16:46:57 Yes 145mg QD Take 145 mg by mouth daily. [facility] lisinopril (PRINIVIL, ZESTRIL) 2.5 mg tablet 2014-09-17 16:46:57 Yes 2.5mg QD Take 2.5 mg by mouth daily. [facility] atorvastatin (LIPITOR) 20 mg tablet 2014-09-17 16:46:57 Yes 20mg Take 20 mg by mouth at bedtime nightly. [facility] HYDROcodone-acetaminophen (NORCO) 10-325 mg tablet 2013-08 00:00:00 Yes Pyelonephritis 1{tbl} Take 1 tablet by mouth every 6 hours as needed for Pain. [facility] cyclobenzaprine (FLEXERIL) 10 mg tablet 2012-11-22 00:00:00 Yes Flank Pain 10mg Take 1 tablet by mouth 2 times daily as needed for Muscle Spasms. [facility] flavoxate (URISPAS) 100 mg tablet 2011-12-17 00:00:00 Yes Hydronephrosis, right 100mg Take 1 tablet by mouth 3 times daily as needed (dysuria). [facility] tamsulosin (FLOMAX) 0.4 mg extended release capsule 10-01 00:00:00 Yes Hydronephrosis .4mg QD Take 1 capsule by mouth daily. [facility] famotidine (PEPCID) 20 mg tablet 2011-02-18 00:00:00 Yes GERD (gastroesophageal reflux disease) 20mg Q.5D Take 1 Tab by mouth 2 times daily. [facility] oxybutynin (DITROPAN) 5 mg tablet 2009-12-17 00:00:00 Yes Ureteral stricture 5mg Take 1 Tab by mouth 3 times daily. For bladder spasms [facility] doxazosin (CARDURA) 2 mg tablet 2009-12-17 00:00:00 Yes Ureteral stricture 2mg Take 1 Tab by mouth at bedtime. [facility] Buspirone Hcl Buspirone Hcl Yes 10 Twic e A Day as needed for Anxiety [facility] Glipizide (Glipizide Er) 5 Mg TAB.ER.24 Glipizide (Glipizide Er) 5 Mg TAB.ER.24 Yes 2.5 Daily [facility] Metoprolol Tartrate (Lopressor) 25 Mg TAB Metoprolol T artrate (Lopressor) 25 Mg TAB Yes 50 Twice A Day [facility] Amlodipine Besylate (Norvasc) 5 Mg TAB Amlodipine Besylate (Norv asc) 5 Mg TAB 2019-08-23 00:00:00 No 5 Daily [facility] Ondansetron Hcl (Zofran) 8 Mg TABLET Ondansetron Hcl (Zofran) 8 Mg TABLET 2019-08-23 00:00:00 No 4 Every 4 Ho urs as needed for Nausea And Vomiting [facility] Cefuroxime Axetil (Cefuroxime) 500 Mg TABLET Cefuroxim e Axetil (Cefuroxime) 500 Mg TABLET 2019-07-05 00:00:00 No 500 Twice A Day [facility] Hydrocodone Bit/Acetaminophen ([place] 7.5-325 Tablet) 1 Each TABLET Hydrocodone Bit/Acetaminophen ([place] 7.5-325 Tablet) 1 Each TABLET 2019-06-11 6 00:00:00 No 1 Every 8 Hours as needed for Pain [facility] Sennosides/Docusate Sodium (Senokot-S Tablet) 1 Each T ABLET Sennosides/Docusate Sodium (Senokot-S Tablet) 1 Each TABLET 2019-07-05 00:00:00 No 1 Twice A Day [facility] Acetaminophen With Codeine (Tylenol With Codeine #3 Ta blet) 1 Each TABLET Acetaminophen With Codeine (Tylenol With Codeine #3 Tablet) 1 Each TABLET 2019-06-11 00:00:00 No 1 As Needed as needed for Moderate Pain (4-6) [facility] Metoprolol Tartrate Metoprolol Tartrate 2019-06-11 00:00:00 No 25 Daily [facility] Fluconazole Fluconazole 2019-06-04 00:00:00 No 100 D aily [facility] Levofloxacin (Levaquin) 500 Mg TABLET Levofloxacin (Levaquin) 50 0 Mg TABLET 2019-06-04 00:00:00 No 250 Daily [facility] Linezolid (Zyvox) 600 Mg TABLET Linezolid (Zyvox) 600 Mg TABLET 2019-06-04 00:00:00 No 600 Twice A Day [facility] Cephalexin (Keflex) 250 Mg CAPSULE Cephalexin (Keflex) 250 Mg CA PSULE 2019-02-10 00:00:00 No Twice A Day [facility] Chrofloxacin Chrofloxacin 2019-02-10 00:00:00 No 25 Twice A Day [facility] Lisinopril Lisinopril 2019-01-14 00:00:00 No 5 Kristen ly [facility] Dicyclomine Hcl Dicyclomine Hcl 2018-09-30 00:00:00 No 20 Daily [facility] Docusate Sodium (Colace) 100 Mg CAP Docusate Sodium (Colace) 100 Mg CAP 2018-09-30 00:00:00 No 100 Twice A Day [facility] Ondansetron Hcl (Zofran*) 4 Mg TABLET Ondansetron Hcl (Zofran*) 4 Mg TABLET 2018-09-30 00:00:00 No 4 as needed for Nausea And Vomiting [facility] Buspirone Hcl Buspirone Hcl 2018-07-30 00:00:00 No 10 Twice A Day as needed for Anxiety [facility] Ciprofloxacin Hcl (Cipro) 500 Mg TABLET Ciprofloxacin Hcl (C ipro) 500 Mg TABLET 2018-07-30 00:00:00 No 500 Every 12 Hours [facility] Acetaminophen With Codeine (Tylenol With Codeine #3 Ta blet) 1 Each TABLET Acetaminophen With Codeine (Tylenol With Codeine #3 Tablet) 1 Each TABLET 2018-07-19 00:00:00 No 1 Every 6 Hours as nee ded for Pain [facility] Fluconazole (Diflucan) 200 Mg TABLET Fluconazole (Diflucan) 200 Mg TABLET 2018-07-19 00:00:00 No 200 Daily [facility] Ondansetron Hcl Ondansetron Hcl 2018-07-19 00:00:00 No 4 Every 4 Hours as needed for Nausea [facility] Cephalexin Monohydrate (Keflex) 500 Mg CAPSULE Cephale ever Monohydrate (Keflex) 500 Mg CAPSULE 2018-05-10 00:00:00 No 500 Every 12 Hours [facility] Lisinopril Lisinopril 2018-05-06 00:00:00 No 5 Kristen ly [facility] Ondansetron Ondansetron 2018-05-06 00:00:00 No 4 Every 4 Hours as needed for Nausea [facility] Ciprofloxacin Hcl (Cipro) 500 Mg TABLET Ciprofloxacin Hcl (C ipro) 500 Mg TABLET 2018-03-26 00:00:00 No 500 Every 12 Hours [facility] Meropenem Meropenem 2018-01-08 00:00:00 No 1 Every 8 Hours [facility] Ciprofloxacin Hcl (Cipro) 500 Mg TABLET Ciprofloxacin Hcl (C ipro) 500 Mg TABLET 2017-12-15 00:00:00 No 250 Twice A Day [facility] Fluconazole (Diflucan) 100 Mg TABLET Fluconazole (Diflucan) 100 Mg TABLET 2017-12-15 00:00:00 No [facility] Ciprofloxacin Hcl (Cipro) 500 Mg TABLET Ciprofloxacin Hcl (C ipro) 500 Mg TABLET 2016-12-31 00:00:00 No 250 Every 12 Hours [facility] Fluconazole (Diflucan) 100 Mg TABLET Fluconazole (Diflucan) 100 Mg TABLET 2016-12-28 00:00:00 No Daily [facility] Metronidazole (Flagyl) 250 Mg TABLET Metronidazole (Flagyl) 250 Mg TABLET 2016-09-07 00:00:00 No 250 Every 6 Hours [facility] Cranberry/Vit C/L. Sporogenes (Cranberry Tablet) 1 Eac h TABLET Cranberry/Vit C/L. Sporogenes (Cranberry Tablet) 1 Each TABLET 2016-07-24 00:00:00 No 1000 Twice A Day [facility] Atorvastatin Calcium Atorvastatin Calcium 2016-06-10 00:00:00 No 20 Daily [facility] Cefdinir (Omnicef) 300 Mg CAPSULE Cefdinir (Omnicef) 300 Mg CAPS ULE 2016-06-10 00:00:00 No Twice A Day [facility] Cyanocobalamin (Vitamin B-12) (Vitamin B-12) 1,000 Mcg TAB.SUBL Cyanocobalamin (Vitamin B-12) (Vitamin B-12) 1,000 Mcg TAB.SUBL 2016-06-10 00:00:00 N o [facility] Fenofibrate Nanocrystallized (Fenofibrate) 145 Mg TABL ET Fenofibrate Nanocrystallized (Fenofibrate) 145 Mg TABLET 2016-06-10 00:00:00 No Daily [facility] Lisinopril Lisinopril 2016-06-10 00:00:00 No 25 Kristen ly [facility] Amoxicillin/Potassium Clav (Amox Tr-K Clv 875-125 Mg T ab) 1 Each TABLET Amoxicillin/Potassium Clav (Amox Tr-K Clv 875-125 Mg Tab) 1 Each TABLET 2016-01-31 00:00:00 No 1 Twice A Day [facility] Atorvastatin Calcium Atorvastatin Calcium 2016-01-31 00:00:00 No 20 Bedtime [facility] Cholecalciferol (Vitamin D3) (Vitamin D3) 50,000 Unit CAPSULE Cholecalciferol (Vitamin D3) (Vitamin D3) 50,000 Unit CAPSULE 2016-01-31 00:00:00 No 1 [employer] [facility] Cyanocobalamin (Vitamin B-12) 1,000 Mcg TAB Cyanocobal golden (Vitamin B-12) 1,000 Mcg TAB 2016-01-31 00:00:00 No 1000 Daily [facility] Fenofibrate Nanocrystallized (Fenofibrate) 145 Mg TABL ET Fenofibrate Nanocrystallized (Fenofibrate) 145 Mg TABLET 2016-01-31 00:00:00 No 145 Daily [facility] Lisinopril Lisinopril 2016-01-31 00:00:00 No 2.5 Kristen ly [facility] Metformin Hcl Metformin Hcl 2016-01-31 00:00:00 No 500 Twice A Day [facility] Trazodone Hcl Trazodone Hcl 2016-01-31 00:00:00 No 100 Bedtime [facility] Atorvastatin Calcium Atorvastatin Calcium 2015-11-16 00:00:00 No 20 Today At 9:00PM [facility] Cefdinir (Omnicef) 300 Mg CAPSULE Cefdinir (Omnicef) 300 Mg CAPS ULE 2015-11-16 00:00:00 No 300 Twice A Day [facility] Cyanocobalamin (Vitamin B-12) 1,000 Mcg TAB Cyanocobal golden (Vitamin B-12) 1,000 Mcg TAB 2015-11-16 00:00:00 No 1000 Daily [facility] Fenofibrate Nanocrystallized (Fenofibrate) 145 Mg TABL ET Fenofibrate Nanocrystallized (Fenofibrate) 145 Mg TABLET 2015-11-16 00:00:00 No 1 Daily [facility] Fluconazole (Diflucan) 100 Mg TABLET Fluconazole (Diflucan) 100 Mg TABLET 2015-11-16 00:00:00 No 100 Daily [facility] Lisinopril (Prinavil / Zestril) 20 Mg TABLET Lisinopri l (Prinavil / Zestril) 20 Mg TABLET 2015-11-16 00:00:00 No 25 Daily [facility] Metformin Hcl Metformin Hcl 2015-10-11 00:00:00 No 500 Twice A Day [facility] Tramadol Hcl (Ultram) 50 Mg TABLET Tramadol Hcl (Ultram) 50 Mg T ABLET 2015-10-11 00:00:00 No 50 Twice A Day [facility] Vital Signs Vital Name Observation Time Observation Value Comments Source Body Temperature 2019-10-31 13:33:00 98.7 [degF] [facility] Weight 2019-10-31 10:56:00 202 [lb_av] [facility] BMI (Body Mass Index) 2019-10-31 10:56:00 39.4 kg/m2 [facility] Body Temperature 2019-07-09 11:31:00 98.2 [degF] [facility] Weight 2019-07-08 01:05:00 202 [lb_av] [facility] BMI (Body Mass Index) 2019-07-08 01:05:00 39.4 kg/m2 [facility] Body Temperature 2019-06-11 08:25:00 98.5 [degF] [facility] Weight 2019-06-04 15:24:00 198 [lb_av] [facility] BMI (Body Mass Index) 2019-06-04 15:24:00 38.7 kg/m2 [facility] Weight 2015-03-10 02:31:00 [facility] Temperature Oral (F) 2015-03-10 02:31:00 97.9 F [facility] Respitory Rate 2015-03-10 02:31:00 [facility] Heart Rate 2015-03-10 02:31:00 [facility] Systolic (mm Hg) 2015-03-10 02:31:00 [facility] Diastolic (mm Hg) 2015-03-10 02:31:00 [facility] Temperature Oral (F) 2015-02-16 01:28:00 98.4 F [facility] Respitory Rate 2015-02-16 01:28:00 [facility] Heart Rate 2015-02-16 01:28:00 [facility] Systolic (mm Hg) 2015-02-16 01:28:00 [facility] Diastolic (mm Hg) 2015-02-16 01:28:00 [facility] Systolic (mm Hg) 2015-02-15 21:32:00 [facility] Diastolic (mm Hg) 2015-02-15 21:32:00 [facility] Weight 2015-02-15 21:32:00 [facility] BMI Calculated 2015-02-15 21:32:00 [facility] Height 2015-02-15 21:32:00 152.4 cm [facility] Heart Rate 2015-02-15 21:32:00 [facility] Respitory Rate 2015-02-15 21:32:00 [facility] Temperature Oral (F) 2015-02-15 21:32:00 98.1 F [facility] Procedures Procedure Date / Time Performed Performing Clinician [facility] CYSTOSCOPY AND TREATMENT 2019-08-26 00:00:00 [facility] CYSTO W/URETER STRICTURE [place] 2019-08-26 00:00:00 [facility] REMOVAL OF INTRALUMINAL DEVICE FROM URETER, ENDO 2019-06-09 00:0 0:00 [facility] DILATION OF LEFT URETER WITH INTRALUMINAL DEVICE, ENDO 2019-05-13 0 00:00:00 [facility] FLUOROSCOPY KIDNEY, URETER, BLADDER, L W L OSM CONTRAST 00:00:00 [facility] DILATION OF URETHRA, ENDO 2019-06-09 00:00:00 [facility] Computed tomography of brain without radiopaque contrast 2019-05 00:00:00 [facility] CT of abdomen and pelvis without contrast 2019-06-04 00:00:00 [facility] CHANGE DRAINAGE DEVICE IN KIDNEY, EXTERNAL APPROACH 2019-02-07 0 0:00:00 [facility] CYSTOSCOPY AND TREATMENT 2019-01-17 00:00:00 [facility] CYSTO W/URETER STRICTURE [place] 2019-01-17 00:00:00 [facility] Plan of Care Planned Activity Planned Date Details Comments Source Future Scheduled Test 2019-11-10 00:00:00 IMM Influenza Seas onal Nov to April (>/= 19 yrs) [code = IMM Influenza Seasonal Nov to April (>/= 19 yrs)] [facility] Scheduled Test 2012 00:00:00 Screening for tracy gnant neoplasm of colon (procedure) [code = 281697941] [facility] Scheduled Test 2004-09-04 00:00:00 Breast Cancer Scrn (Yearly) [code = Breast Cancer Scrn (Yearly)] [facility] Scheduled Test 1983-10-08 00:00:00 Screening for tracy gnant neoplasm of cervix (procedure) [code = [id number]] [facility] Instructions Echeverria Catheter Care [facility] Instructions Urinary Tract Infection - Women [facility] Encounters Start Date/Time End Date/Time Encounter Type Admission Type [facility] Care Department Encounter ID Source 2019-10-31 11:57:00 2019-10-31 13:46:00 Departed Emergency Room LIZ MUÑIZ [facility] [id number] [facility] 2019-09-26 15:13:00 2019-09-26 15:13:00 Registered Clinic 3 JARET MAN [facility] [id number] [facility] 2019-08-26 10:39:00 2019-08-26 10:39:00 Registered Surgical Day Care [facility] [id number] [facility] 2019-07-04 21:44:00 2019-07-09 12:09:00 Discharged Inpatient [facility] [id number] [facility] 2019-06-04 13:17:00 2019-06-11 10:40:00 Discharged Inpatient 1 FIGUEROA CARD [facility] [id number] [facility] 2019-02-24 11:21:00 2019-02-24 20:46:00 Departed Emergency Room 1 LUZ MARINA GARCIA [facility] [id number] [facility] 2019-02-06 08:38:00 2019-02-10 11:48:00 Discharged Inpatient 1 FIGUEROA CARD [facility] [id number] [facility] 2019-01-17 10:39:00 2019-01-17 10:39:00 Registered Surgical Day Car e 3 JARET ESPINOSA [facility] [id number] [facility] 2019-01-12 20:48:00 2019-01-13 00:40:00 Departed Emergency Room [facility] [id number] [facility] 2018-12-14 09:50:00 2018-12-14 12:01:00 Departed Emergency Room [facility] [id number] [facility] 2018-12-02 08:28:00 2018-12-02 08:28:00 Registered Clinic 3 [facility] [id number] [facility] 2018-10-31 05:33:00 2018-10-31 06:27:00 Departed Emergency Room [facility] [id number] [facility] 2018-10-23 12:06:00 2018-10-23 13:42:00 Departed Emergency Room [facility] [id number] [facility] 2018-10-01 06:19:00 2018-10-01 06:19:00 Registered Surgical Day Car e 3 [facility]ES[facility]S [facility] [id number] [facility] 2018-09-09 18:21:00 2018-09-13 12:48:00 Discharged Inpatient 1 LIZ MUÑIZ [facility] [id number] [facility] 2018-08-06 09:33:00 2018-08-06 09:33:00 Registered Surgical Day Car e 3 [facility] [id number] [facility] 2018-07-30 10:15:00 2018-07-30 11:33:00 Departed Emergency Room [facility] [id number] [facility] 2018-07-19 14:11:00 2018-07-19 19:19:00 Departed Emergency Room [facility] [id number] [facility] 2018-05-29 13:14:00 2018-05-29 19:30:00 Departed Emergency Room 1 LIZ MUÑIZ [facility] [id number] [facility] 2018-05-06 14:04:00 2018-05-10 16:20:00 Discharged Inpatient 1 FIGUEROA CARD [facility] [id number] [facility] 2018-04-07 08:50:00 2018-04-07 08:50:00 Registered Surgical Day Car e JARET GAUTHIER [facility] [id number] [facility] 2018-03-29 15:25:00 2018-03-29 17:05:00 Departed Emergency Room [facility] [id number] [facility] 2018-03-10 12:32:00 2018-03-10 16:55:00 Departed Emergency Room 1 LUZ MARINA BONDS [facility] [id number] [facility] 2018-02-21 12:46:00 2018-02-21 16:46:00 Departed Emergency Room [facility] [id number] [facility] 2018-01-09 09:35:00 2018-01-13 16:22:00 Discharged Inpatient [facility] [id number] [facility] 2017-12-22 12:28:00 2017-12-22 12:55:00 Departed Emergency Room [facility] [id number] [facility] 2017-12-18 16:30:00 2017-12-18 21:52:00 Departed Emergency Room 1 LIZ MUÑIZ [facility] [id number] [facility] 2017-12-10 14:41:00 2017-12-15 18:30:00 Discharged Inpatient 1 VINNY RENDON [facility] [id number] [facility] 2017-11-30 20:49:00 2017-12-04 16:53:00 Discharged Inpatient 1 RENÉE GUIDRY [facility] [id number] [facility] 2017-11-14 20:27:00 2017-11-14 21:25:00 Departed Emergency Room [facility] [id number] [facility] 2017-11-05 15:08:00 2017-11-05 15:08:00 Registered Clinic 3 JARET MAN [facility] [id number] [facility] 2017-09-18 01:04:00 2017-09-23 18:35:00 Discharged Inpatient 1 DIA MONTOYARENEA [facility] [id number] [facility] 2017-08-10 13:10:00 2017-08-10 18:25:00 Departed Emergency Room [facility] [id number] [facility] 2017-07-16 02:07:00 2017-07-16 02:38:00 Departed Emergency Room [facility] [id number] [facility] 2017-07-05 12:59:00 2017-07-05 13:01:00 Departed Emergency Room [facility] [id number] [facility] 2017-07-03 07:21:00 2017-07-03 07:21:00 Registered Surgical Day Care [facility] [id number] [facility] 2017-07-01 11:08:00 2017-07-01 11:08:00 Registered Surgical Day Car e OSIEL LAWSON [facility] [id number] [facility] 2017-04-12 13:23:00 2017-04-12 17:28:00 Departed Emergency Room ER JUDAH FRAGOSO [facility] [id number] [facility] 2017-03-11 06:30:00 2017-03-14 14:25:00 Discharged Inpatient ER VIKY MONTOYA [facility] [id number] [facility] 2016-12-27 20:18:00 2016-12-31 14:28:00 Discharged Inpatient ER CARLIE NIX [facility] [id number] [facility] 2016-11-06 07:17:00 2016-11-06 17:05:00 Discharged Inpatient ER CARLIE NIX [facility] [id number] [facility] 2016-09-07 18:56:00 2016-09-15 17:00:00 Discharged Inpatient [facility] [id number] [facility] 2016-07-24 15:58:00 2016-07-29 12:09:00 Discharged Inpatient [facility] [id number] [facility] 2016-06-11 08:01:00 2016-06-11 08:01:00 Registered Surgical Day Care [facility] [id number] [facility] 2015-03-09 20:28:00 2015-03-09 23:43:00 Outpatient Birgit Lyons [facility] [id number] 2015-02-15 15:13:00 2015-02-15 19:33:00 Outpatient Cee Natarajan [facility] [id number] Results Test Description Test Time Test Comments Results Result Comments Source Blood leukocytes automated count (number/volume) 2019-10-31 11:45:00 Test Item White Blood Count (test code = 6690-2) 7.89 4.8-10.8 [facility] erythrocytes automated count (number/volume)2019-10-31 11:45:00* Test Item Value Reference Range Interpretation Comments Red Blood Count (test code = 789-8) 4.15 3.6-5.1 [facility] Irving[facility] hemoglobin measurement (moles/volume)2019-10-31 11:45:00* Test Item Value Reference Range Interpretation Comments Hemoglobin (test code = 26016-6) 10.6 12.0-16.0 [facility] IrvingAutomated blood hematocrit (volume fraction)2019-10-31 11:45:00* Test Item Value Reference Range Interpretation Comments Hematocrit (test code = 4544-3) 34.6 34.2-44.1 [facility] IrvingAutomated erythrocyte mean corpuscular ztqldj7051-94-80 11:45:00* Test Item Value Reference Range Interpretation Comments Mean Corpuscular Volume (test code = 787-2) 83.4 81-99 [facility] Irving[facility] erythrocyte mean corpuscular hemoglobin (mass per erythrocyte)2019-10-31 11:45:00* Test Item Value Reference Range Interpretation Comments Mean Corpuscular Hemoglobin (test code = 785-6) 25.5 28-32 [facility] IrvingAutom[facility] erythrocyte mean corpuscular hemoglobin concentration measurement (mass/volume)2019-10-31 11:45:00* Test Item Value Reference Range Interpretation Comments Mean Corpuscular Hemoglobin Concent (test code = 786-4) 30.6 31-35 [facility] IrvingRDW UzcXh-Bfd5043-53-21 11:45:00* Test Item Value Reference Range Interpretation Comments Red Cell Distribution Width (test code = 51345-5) 14.4 11.7 -14.4 [facility] IrvingAutomated blood platelet count (count/volume)2019-10-31 11:45:00* Test Item Value Reference Range Interpretation Comments Platelet Count (test code = 777-3) 266 140-360 [facility] IrvingAutformerly [facility]ed blood segmented neutrophil count as percentage of total xcltdkaldd3955-01-72 11:45:00* Test Item Value Reference Range Interpretation Comments Neutrophils (%) (Auto) (test code = 63460-6) 76.9 38.7-80.0 [facility] IrvingAutomated blood lymphocyte count as percentage ot total ezyshalvyl2081-31-19 11:45:00* Test Item Value Reference Range Interpretation Comments Lymphocytes (%) (Auto) (test code = 736-9) 16.1 18.0-39.1 [facility] IrvingAutomated blood monocyte count as percentage of total hsfgxqcrzv6492-53-68 11:45:00* Test Item Value Reference Range Interpretation Comments Monocytes (%) (Auto) (test code = 5905-5) 5.1 4.4-11.3 [facility] IrvingAutomated blood eosinophil count as percentage of total wxhwjgppth5579-18-25 11:45:00* Test Item Value Reference Range Interpretation Comments Eosinophils (%) (Auto) (test code = 713-8) 0.8 0.0-6.0 [facility] IrvingAutomated blood basophil count as percentage of total kyqbrhyrbd8533-79-78 11:45:00* Test Item Value Reference Range Interpretation Comments Basophils (%) (Auto) (test code = 706-2) 0.5 0.0-1.0 [facility] IrvingFluoroscopic procedure less than one hour uxtnakty9868-48-57 11:45:00* Test Item Value Reference Range Interpretation Comments IM GRANULOCYTES % (test code = IM GRANULOCYTES %) 0.6 0.0- 1.0 [facility] IrvingAutomated blood neutrophil count 2019-10-31 11:45:00* Test Item Value Reference Range Interpretation Comments Neutrophils # (Auto) (test code = 751-8) 6.1 2.1-6.9 [facility] IrvingBlood lymphocytes count (number/volume) 2019-10-31 11:45:00* Test Item Value Reference Range Interpretation Comments Lymphocytes # (Auto) (test code = 04125-7) 1.3 1.0-3.2 [facility] IrvingBlood monocytes automated count (number/volume)2019-10-31 11:45:00* Test Item Value Reference Range Interpretation Comments Monocytes # (Auto) (test code = 742-7) 0.4 0.2-0.8 [facility] IrvingAutomated blood eosinophil count 2019-10-31 11:45:00* Test Item Value Reference Range Interpretation Comments Eosinophils # (Auto) (test code = 711-2) 0.1 0.0-0.4 [facility] IrvingAutomated blood basophil count (count/volume)2019-10-31 11:45:00* Test Item Value Reference Range Interpretation Comments Basophils # (Auto) (test code = 704-7) 0.0 0.0-0.1 [facility] IrvingFluoroscopic procedure less than one hour scsnlnfw4263-45-44 11:45:00* Test Item Value Reference Range Interpretation Comments Absolute Immature Granulocyte (auto (irena t code = Absolute Immature Granulocyte (auto) 0.05 0-0.1 [facility] IrvingProthrombin time (PT) in platelet poor plasma by coagulation rgavc9766-51-88 11:45:00* Test Item Value Reference Range Interpretation Comments Prothrombin Time (test code = 5902-2) 13.1 11.9-14.5 [facility] IrvingINR in Platelet poor plasma by Coagulation vueim9835-91-93 11:45:00* Test Item Value Reference Range Interpretation Comments Prothromb Time International Ratio (test code = 6301-6) 0.94 Oral Anticoagulant Therapy INR Values:1. Low Intensity Therapy 1.5 - 2.02 . Moderate Intensity Therapy 2.0 - 3.03. High Intensity Therapy(1) 2.5 - 3. 54. High Intensity Therapy(2) 3.0 - 4.05. Panic Value INR > 5.0 [facility] IrvingActivated partial thromboplastin time (aPTT) in platelet poor plasma by coagulation bnzxx8209-72-12 11:45:00* Test Item Value Reference Range Interpretation Comments Activated Partial Thromboplast Time (test code = 83420-1) 31.0 23.8-35.5 [facility] IrvingUrine color wdbwnamsbpzbd9966-15-00 11:45:00* Test Item Value Reference Range Interpretation Comments Urine Color (test code = 5778-6) HEAVENLY YELLOW [facility] IrvingUrine htfvohk3902-32-60 11:45:00* Test Item Value Reference Range Interpretation Comments Urine Clarity (test code = 42325-5) TURBID CLEAR [facility]entonpecific gravity of Urine by Test strip 2019-10-31 11:45:00* Test Item Value Reference Range Interpretation Comments Urine Specific [place] (test code = 5811-5) 1.025 1.010-1.02 5 [facility] IrvingUrine pH measurement by automated test cmyfu2292-43-58 11:45:00* Test Item Value Reference Range Interpretation Comments Urine pH (test code = 15044-3) 7.5 5-7 [facility] IrvingUrine leukocyte esterase detection by hxdrnaap7679-19-86 11:45:00* Test Item Value Reference Range Interpretation Comments Urine Leukocyte Esterase (test code = 5799-2) MODERATE NEGATIVE [facility] IrvingUrine nitrite ckzuholzc6134-85-13 11:45:00* Test Item Value Reference Range Interpretation Comments Urine Nitrite (test code = 69120-5) POSITIVE NEGATIVE [facility] IrvingUrine protein measurement by test strip (mass/volume)2019-10-31 11:45:00* Test Item Value Reference Range Interpretation Comments Urine Protein (test code = 5804-0) >=300 NEGATIVE [facility] IrvingUrine glucose exzrdebpx5137-42-17 11:45:00* Test Item Value Reference Range Interpretation Comments Urine Glucose (UA) (test code = 2349-9) NEGATIVE NEGATIVE [facility] IrvingUrine ketones detection by automated test zeliy4048-26-57 11:45:00* Test Item Value Reference Range Interpretation Comments Urine Ketones (test code = 65253-5) NEGATIVE NEGATIVE [facility] IrvingUrine urobilinogen measurement by test strip (mass/volume)2019-10-31 11:45:00* Test Item Value Reference Range Interpretation Comments Urine Urobilinogen (test code = 51035-9) 1 0.2-1 [facility] IrvingUrine total bilirubin measurement (mass/volume)2019-10-31 11:45:00* Test Item Value Reference Range Interpretation Comments Urine Bilirubin (test code = 1978-6) NEGATIVE NEGATIVE [facility] IrvingUrine erythrocytes qjestikxr1729-43-49 11:45:00* Test Item Value Reference Range Interpretation Comments Urine Blood (test code = 67483-5) LARGE NEGATIVE [facility] IrvingAutomated urine sediment leukocyte count by microscopy (number/high power field)2019-10-31 11:45:00* Test Item Value Reference Range Interpretation Comments Urine WBC (test code = 5821-4) -20 0-5 [facility] IrvingErythrocytes detection in urine sediment by light nehaglfhrw5599-41-47 11:45:00* Test Item Value Reference Range Interpretation Comments Urine RBC (test code = 30932-5) 21-50 0-5 [facility] IrvingBacteria detection in urine sediment by light hwucqskslm1313-77-01 11:45:00* Test Item Value Reference Range Interpretation Comments Urine Bacteria (test code = 65983-0) MANY NONE [facility] IrvingEpithelial cells detection in urine sediment by light fqeszlezir3758-30-69 11:45:00* Test Item Value Reference Range Interpretation Comments Urine Epithelial Cells (test code = 53485-5) FEW NONE [facility] Dentonerum or plasma sodium measurement (moles/volume)2019-10-31 11:45:00* Test Item Value Reference Range Interpretation Comments Sodium Level (test code = 2951-2) 140 136-145 [facility] Dentonerum or plasma potassium measurement (moles/volume)2019-10-31 11:45:00* Test Item Value Reference Range Interpretation Comments Potassium Level (test code = 2823-3) 3.3 3.5-5.1 [facility] Dentonerum or plasma chloride measurement (moles/volume)2019-10-31 11:45:00* Test Item Value Reference Range Interpretation Comments Chloride Level (test code = 2075-0) 105 98-107 [facility] Dentonerum or plasma carbon dioxide, total measurement (moles/volume)2019-10-31 11:45:00* Test Item Value Reference Range Interpretation Comments Carbon Dioxide Level (test code = 2028-9) 21 22-29 [facility] Dentonerum or plasma anion gyl0682-85-09 11:45:00* Test Item Value Reference Range Interpretation Comments Anion Gap (test code = 65513-5) 17.3 8-16 [facility] Dentonerum or plasma urea nitrogen measurement (mass/volume)2019-10-31 11:45:00* Test Item Value Reference Range Interpretation Comments Blood Urea Nitrogen (test code = 3094-0) 14 7-26 [facility] Dentonerum or plasma creatinine measurement (mass/volume)2019-10-31 11:45:00* Test Item Value Reference Range Interpretation Comments Creatinine (test code = 2160-0) 1.19 0.57-1.11 [facility] Dentonerum or plasma urea nitrogen/creatinine mass grmhq5369-33-66 11:45:00* Test Item Value Reference Range Interpretation Comments BUN/Creatinine Ratio (test code = 3097-3) 12 6-25 [facility] IrvingEstimated glomerular filtration rate (GFR) mzkhygtxdiphl3274-25-82 11:45:00* Test Item Value Reference Range Interpretation Comments Estimat Glomerular Filtration Rate (test code = 709523961) 47 >60 Ranges were taken from the National Kidney Disease Education Program and the [facility] Kidney Foundation literature.Reference ranges:60 or greater: Ivotif13-65 ( for 3 consecutive months): Chronic kidney disease 15 or less: Kidney failureBaylor Scott & [facility] – IrvingGlucose djgsynpvzqi1823-29-25 11:45:00* Test Item Value Reference Range Interpretation Comments Glucose Level (test code = IOS0039) 201 74-118 [facility] Dentonerum or plasma calcium measurement (mass/volume)2019-10-31 11:45:00* Test Item Value Reference Range Interpretation Comments Calcium Level (test code = 13632-1) 9.2 8.4-10.2 [facility] Dentonerum or plasma total bilirubin measurement (mass/volume)2019-10-31 11:45:00* Test Item Value Reference Range Interpretation Comments Total Bilirubin (test code = 1975-2) 0.3 0.2-1.2 [facility] IrvingFluoroscopic procedure less than one hour bjitiuex8114-29-05 11:45:00* Test Item Value Reference Range Interpretation Comments Aspartate Amino Transf (AST/SGOT) (test code = Aspartate Amino Transf (AST/SGOT)) 13 5-34 [facility] Dentonerum or plasma alanine aminotransferase measurement (enzymatic activity/volume)2019-10-31 11:45:00* Test Item Value Reference Range Interpretation Comments Alanine Aminotransferase (ALT/SGPT) (test code = 1742-6) 13 0-55 [facility] Dentonerum or plasma protein measurement (mass/volume)2019-10-31 11:45:00* Test Item Value Reference Range Interpretation Comments Total Protein (test code = 2885-2) 8.3 6.5-8.1 [facility] Dentonerum or plasma albumin measurement (mass/volume)2019-10-31 11:45:00* Test Item Value Reference Range Interpretation Comments Albumin (test code = 1751-7) 4.1 3.5-5.0 [facility] IrvingPlasma globulin measurement (mass/volume) 2019-10-31 11:45:00* Test Item Value Reference Range Interpretation Comments Globulin (test code = 99883-3) 4.2 2.3-3.5 [facility] Dentonerum or plasma albumin/globulin mass rkiax7274-29-51 11:45:00* Test Item Value Reference Range Interpretation Comments Albumin/Globulin Ratio (test code = 1759-0) 1.0 0.8-2.0 [facility] Dentonerum or plasma alkaline phosphatase measurement (enzymatic activity/volume)2019-10-31 11:45:00* Test Item Value Reference Range Interpretation Comments Alkaline Phosphatase (test code = 6768-6) 111 40-150 [facility] IrvingCHEST SINGLE (PORTABLE)2019-10-31 11:30:00 [place] [id number] Patient Name: WESLY HUTCHINSON MR #: [id number] : 1960 Age/Sex: 59/F Req #: [id number] Adm Physician: Ordered by: LIZ MUÑIZ MD Report #: [id number] Location: ER Room/Bed: Procedure: [id number] DX/CHEST SINGLE (PORTABLE) Exam Date: 10/31/19 Exam Time: 112 0 REPORT STATUS: Signed EXAMINAT ION: CHEST SINGLE (PORTABLE) INDICATION: Chest pain, urinary tract inf ection COMPARISON: Chest radiograph 06/04/2019 FINDINGS: LINE S/TUBES:None LUNGS:The lungs are well-inflated. No focal consolidation or p ulmonary edema. PLEURA:No pleural effusion or pneumothorax. MEDIASTINU M:The cardiomediastinal silhouette appears normal in size and shape. BONES/ SOFT TISSUES:No acute osseous injury. ABDOMEN:No free air under the diaphra gm. IMPRESSION: No focal pneumonia or pulmonary edema. Signed b y: Deja Dawson MD on 10/31/2019 11:31 AM Dictated By: DEJA DAWSON MD Elect ronically Signed By: DEJA DAWSON MD on 10/31/191130 Transcribed By: DEYANIRA on 10/31/19 113 COPY TO: LZI MUÑIZ MD NU [id number] 16:35:00 [place] [address] Patient Name: WESLY HUTCHINSON MR #: [id number] : 1960 Age/Sex: 58/F Req #: [id number] Adm Physician: Ordered by: JARET ESPINOSA MD Report #: [id number] Location: DX Room/Bed: Procedure: [id number] IR/PCNU EXCH FARAZ Exam Date: Exam Time: REPORT STATUS: Signed Procedure: Right percutaneous nep hrostomy catheter exchange. History: Routine maintenance. Primary O perator: Gutierrez Lora M.D. Gravel Inspector: Eleni Hays Modality: Fluoroscop y. DOSE REDUCTION: The examination was performed acc ording to departmental dose-optimization program. Fluoro time: 5.2 minut es. Radiation dose: 48.7 mGy air Kerma. Sedation: Intravenous conscious sedation was administered by a dedicated RN using one milligrams of Versed and 50 mcg of fentanyl IV. Vital signs were monitored throughout the procedure by a dedicated RN under direct supervision of Dr. Lora, and remained stable. Physician intra-service sedation time was approximately 30 minutes. Anesthesia: Lidocaine local infiltration Medicines: Not appl icable Contrast medium: Isovue 300, 20 cc. Estimated blood loss: < 5 cc. Technique: A discussion of the risks, benefits, and alte rnatives was carried out with the patient. A written informed consent was obta ined. The patient expressed understanding and agreed to proceed. A [facility] timeout was performed prior to starting the procedure. The procedure asuncion m personnel used personal protective equipment. The operators used sterile izabela ns and gloves. The patient was laid prone on the procedure table. The right percutaneous nephrostomy site was prepped with chlorhexidine gluconate and dr sanchez in sterile fashion. A insurance account specialist radiograph was performed showing the cat heter to be in the expected location. Contrast injection through the catheter confirmed the catheter tip location in the collecting system. After local anesthetic infiltration, the retention suture was removed. The catheter was c ut but could not be withdrawn over a wire. The catheter was encrusted close to the tip. A Glidewire was maneuvered alongside the catheter into the renal col lecting system. The catheter was slowly pulled, the pigtail unformed, and the catheter removed. It was replaced with an identical catheter. The catheter pos ition was confirmed with contrast injection. The catheter was secured to skin with nonabsorbable suture. The catheter was connected to a gravity drainage b ag. An aseptic dressing was applied. The patient was transferred to the [facility] and discharged from the department in stable condition. Complications: Mild hematuria. Findings: As above. Impression: Success ful fluoroscopic guided 12 [place] Islander right nephrostomy catheter exchange as descr ibed above. Further management dictated by the clinical scenario. The nephr ostomy catheter should be exchanged in approximately 10 weeks instead of 3 mon ths. The referring doctor was made aware and agreed. The patient was instructe d to increase the oral fluid intake. Thank you for the opportunity to assist in the ca re of your patient. Signed by: Gutierrez Lora MD on 09/26/2019 4:39 PM Dictated By: GUTIERREZ LORA MD 38 Transcribed By: DEYANIRA on 09/26/191638 COPY TO: JARET SCHWARTZ MD Capillary blood glucose measurement by glucometer (mass/volume)2019-08-26 10:54:00* Test Item Value Reference Range Interpretation Comments Bedside Glucose (test code = 99427-5) 159 70-120 Meter ID: [id number] [facility] less than one hour [id number] 11:55:00* Test Item Value Reference Range Interpretation Comments Coronavirus (PCR) (test code = Coronavirus (PCR)) NOT DETECTED NOTD ETECTED [employer]ptima SARS-CoV-2 assay is a nucleic amplification test intended for the qualitative detection of RNA from SARS-CoV-2 from nasopharyngeal (CLIP RIVETER) specimens. It is used under Emergency Use Authorization (EUA) by FDA.A positive result is indicative of the presence of SARS-CoV-2 RNA. Clinical correlation with patient history and other diagnostic information is necessary to determine patient infe ction status.A negative (Not Detected) result does not preclude SARS-CoV-2 infec tion. Clinical Correlation with patient history and other diagnostic information should be used in patient management decisions.Invalid: Unable to generate a va lid result on this specimen. Please submit a new specimen for reprat testing oc clinically indicated.Tesing performed by:[facility] [address] [place] [address] [id number], Jong Felix MD, PhD [facility] IrvingCapillary blood glucose measurement by glucometer (mass/volume)2019-07-08 20:13:00* Test Item Value Reference Range Interpretation Comments Bedside Glucose (test code = 63099-5) 124 70-120 Meter ID: [id number] [facility] leukocytes automated count (number/volume)2019-07-08 04:50:00* Test Item Value Reference Range Interpretation Comments White Blood Count (test code = 6690-2) 9.74 4.8-10.8 [facility] IrvingBlood erythrocytes automated count (number/volume)2019-07-08 04:50:00* Test Item Value Reference Range Interpretation Comments Red Blood Count (test code = 789-8) 3.97 3.6-5.1 [facility] IrvingBlood hemoglobin measurement (moles/volume)2019-07-08 04:50:00* Test Item Value Reference Range Interpretation Comments Hemoglobin (test code = 14902-6) 9.9 12.0-16.0 [facility] IrvingAutomated blood hematocrit (volume fraction)2019-07-08 04:50:00* Test Item Value Reference Range Interpretation Comments Hematocrit (test code = 4544-3) 32.5 34.2-44.1 [facility] IrvingAutomated erythrocyte mean corpuscular lzlpdx5436-23-46 04:50:00* Test Item Value Reference Range Interpretation Comments Mean Corpuscular Volume (test code = 787-2) 81.9 81-99 [facility] IrvingAutomated erythrocyte mean corpuscular hemoglobin (mass per erythrocyte)2019-07-08 04:50:00* Test Item Value Reference Range Interpretation Comments Mean Corpuscular Hemoglobin (test code = 785-6) 24.9 28-32 [facility] IrvingAutomated erythrocyte mean corpuscular hemoglobin concentration measurement (mass/volume)2019-07-08 04:50:00* Test Item Value Reference Range Interpretation Comments Mean Corpuscular Hemoglobin Concent (test code = 786-4) 30.5 31-35 [facility] IrvingRDW XmaWn-Mcj5205-17-29 04:50:00* Test Item Value Reference Range Interpretation Comments Red Cell Distribution Width (test code = 31715-9) 15.0 11.7 -14.4 [facility] IrvingAutomated blood platelet count (count/volume)2019-07-08 04:50:00* Test Item Value Reference Range Interpretation Comments Platelet Count (test code = 777-3) 268 140-360 [facility] blood segmented neutrophil count as percentage of total nxmhkqamse7613-33-01 04:50:00* Test Item Value Reference Range Interpretation Comments Neutrophils (%) (Auto) (test code = 60965-0) 59.5 38.7-80.0 [facility] IrvingAutomated blood lymphocyte count as percentage ot total exjpaamfpt5426-58-46 04:50:00* Test Item Value Reference Range Interpretation Comments Lymphocytes (%) (Auto) (test code = 736-9) 29.9 18.0-39.1 [facility] IrvingAutomated blood monocyte count as percentage of total awntqraxhs6655-10-40 04:50:00* Test Item Value Reference Range Interpretation Comments Monocytes (%) (Auto) (test code = 5905-5) 7.0 4.4-11.3 [facility] IrvingAutomated blood eosinophil count as percentage of total yaowxrysbn6944-23-50 04:50:00* Test Item Value Reference Range Interpretation Comments Eosinophils (%) (Auto) (test code = 713-8) 2.6 0.0-6.0 [facility] IrvingAutformerly [facility]ed blood basophil count as percentage of total rmpikewjgn4410-20-72 04:50:00* Test Item Value Reference Range Interpretation Comments Basophils (%) (Auto) (test code = 706-2) 0.6 0.0-1.0 [facility] IrvingFluoroscopic procedure less than one hour flfngyfb4353-45-33 04:50:00* Test Item Value Reference Range Interpretation Comments IM GRANULOCYTES % (test code = IM GRANULOCYTES %) 0.4 0.0- 1.0 [facility] IrvingAutformerly [facility] blood neutrophil count 2019-07-08 04:50:00* Test Item Value Reference Range Interpretation Comments Neutrophils # (Auto) (test code = 751-8) 5.8 2.1-6.9 [facility] IrvingBlood lymphocytes count (number/volume) 2019-07-08 04:50:00* Test Item Value Reference Range Interpretation Comments Lymphocytes # (Auto) (test code = 78137-5) 2.9 1.0-3.2 [facility] IrvingBlood monocytes automated count (number/volume)2019-07-08 04:50:00* Test Item Value Reference Range Interpretation Comments Monocytes # (Auto) (test code = 742-7) 0.7 0.2-0.8 [facility] blood eosinophil count 2019-07-08 04:50:00* Test Item Value Reference Range Interpretation Comments Eosinophils # (Auto) (test code = 711-2) 0.3 0.0-0.4 [facility] IrvingAutomated blood basophil count (count/volume)2019-07-08 04:50:00* Test Item Value Reference Range Interpretation Comments Basophils # (Auto) (test code = 704-7) 0.1 0.0-0.1 [facility] IrvingFluoroscopic procedure less than one hour bfgumhuf7070-25-90 04:50:00* Test Item Value Reference Range Interpretation Comments Absolute Immature Granulocyte (auto (irena t code = Absolute Immature Granulocyte (auto) 0.04 0-0.1 [facility] Dentonerum or plasma sodium measurement (moles/volume)2019-07-08 04:50:00* Test Item Value Reference Range Interpretation Comments Sodium Level (test code = 2951-2) 139 136-145 [facility] Dentonerum or plasma potassium measurement (moles/volume)2019-07-08 04:50:00* Test Item Value Reference Range Interpretation Comments Potassium Level (test code = 2823-3) 3.7 3.5-5.1 [facility] Dentonerum or plasma chloride measurement (moles/volume)2019-07-08 04:50:00* Test Item Value Reference Range Interpretation Comments Chloride Level (test code = 2075-0) 109 98-107 [facility] Dentonerum or plasma carbon dioxide, total measurement (moles/volume)2019-07-08 04:50:00* Test Item Value Reference Range Interpretation Comments Carbon Dioxide Level (test code = 2028-9) 21 22-29 [facility] Dentonerum or plasma anion [id number] 04:50:00* Test Item Value Reference Range Interpretation Comments Anion Gap (test code = 12865-0) 12.7 8-16 [facility] Dentonerum or plasma urea nitrogen measurement (mass/volume)2019-07-08 04:50:00* Test Item Value Reference Range Interpretation Comments Blood Urea Nitrogen (test code = 3094-0) 16 7-26 [facility] Dentonerum or plasma creatinine measurement (mass/volume)2019-07-08 04:50:00* Test Item Value Reference Range Interpretation Comments Creatinine (test code = 2160-0) 1.31 0.57-1.11 [facility] Dentonerum or plasma urea nitrogen/creatinine mass nlupq1988-44-23 04:50:00* Test Item Value Reference Range Interpretation Comments BUN/Creatinine Ratio (test code = 3097-3) 12 6-25 [facility] IrvingEstimated glomerular filtration rate (GFR) ghqhgluktkfda2764-04-60 04:50:00* Test Item Value Reference Range Interpretation Comments Estimat Glomerular Filtration Rate (test code = 432818187) 42 >60 Ranges were taken from the National Kidney Disease Education Program and the [facility] Kidney Foundation literature.Reference ranges:60 or greater: Bcxlen57-11 ( for 3 consecutive months): Chronic kidney disease 15 or less: Kidney failureBaylor Scott & White Medical Center – IrvingGlucose lxukqchypfa7885-23-86 04:50:00* Test Item Value Reference Range Interpretation Comments Glucose Level (test code = AXT5155) 110 74-118 [facility] Dentonerum or plasma calcium measurement (mass/volume)2019-07-08 04:50:00* Test Item Value Reference Range Interpretation Comments Calcium Level (test code = 94691-6) 9.1 8.4-10.2 [facility] Dentonerum or plasma total bilirubin measurement (mass/volume)2019-07-05 04:45:00* Test Item Value Reference Range Interpretation Comments Total Bilirubin (test code = 1975-2) 0.3 0.2-1.2 [facility] IrvingFluoroscopic procedure less than one hour rbuhiztt8485-06-66 04:45:00* Test Item Value Reference Range Interpretation Comments Aspartate Amino Transf (AST/SGOT) (test code = Aspartate Amino Transf (AST/SGOT)) 19 5-34 [facility] Dentonerum or plasma alanine aminotransferase measurement (enzymatic activity/volume)2019-07-05 04:45:00* Test Item Value Reference Range Interpretation Comments Alanine Aminotransferase (ALT/SGPT) (test code = 1742-6) 19 0-55 [facility] Dentonerum or plasma protein measurement (mass/volume)2019-07-05 04:45:00* Test Item Value Reference Range Interpretation Comments Total Protein (test code = 2885-2) 8.5 6.5-8.1 [facility] Dentonerum or plasma albumin measurement (mass/volume)2019-07-05 04:45:00* Test Item Value Reference Range Interpretation Comments Albumin (test code = 1751-7) 3.6 3.5-5.0 [facility] IrvingPlasma globulin measurement (mass/volume) 2019-07-05 04:45:00* Test Item Value Reference Range Interpretation Comments Globulin (test code = 03945-7) 4.9 2.3-3.5 [facility] Dentonerum or plasma albumin/globulin mass uqpei7671-19-41 04:45:00* Test Item Value Reference Range Interpretation Comments Albumin/Globulin Ratio (test code = 1759-0) 0.7 0.8-2.0 [facility] Dentonerum or plasma alkaline phosphatase measurement (enzymatic activity/volume)2019-07-05 04:45:00* Test Item Value Reference Range Interpretation Comments Alkaline Phosphatase (test code = 6768-6) 120 40-150 [facility] IrvingFluoroscopic procedure less than one hour subfwftt4270-64-37 22:35:00* Test Item Value Reference Range Interpretation Comments Coronavirus (PCR) (test code = Coronavirus (PCR)) NOT DETECTED NOTD ETECTED SARS-COV-2 (COVID19), HIGHRISK, RT-PCRNegative results do not preclude SARS-CoV- 2 infection and should not be used as the sole basis for patient management deci sions. Negative results must be combined with clinical observations, patient his tory, and epidemiological information. Optimum specimen types and timing for pea k viral levels during infections caused by SARS-CoV-2 have not been determined. Collection of multiple specimens ot types of specimens may be necessary to detec t virus. Improper specimen collection and handling, sequence variability under p rimers/probes, or organism present below the limit of detection may lead to fals e negative results. Positive and negative predictive values of testing are highl y dependent on prevalance. False negative test results are more likely when prev alence is high.The expected result is negative (not detected).The SARS-CoV-2 irena t is intended for the qualitative detection of nucleic acid from SARS-CoV-2 in n asopharyngeal and oropharyngeal swab samples from patients who meet COVID-19 cli nical and or epidemiological criteria. For lower respiratory tract specimens, th e assay is submitted for authoriztion by FDA under an Emergency Use Authorizatio n (EUA). Testing methodology is real time RT-PCR. If received as separate collec tion devices, nasopharygeal and oropharyngeal specimens are combined for analysi s. Additional specimens may be split to a separate accession for analysi and rep orting as this test includes a single unit of service.Test results must be corre lated with clinical presentation and evaluated in the context of other laborator y and epidemiologic data. Test performance can be affected because the epidemiol ogy and clinical spectrum of infection caused by SARS-CoV-2 is not fully known. For example, the optimum types of specimens to collect and when during the cours e of infection these specimens are most likely to contain detectable viral RNA m ay not be known.This test has not been Food and Drug Administration (FDA) cleare d or approved and has been authorized by FDA under an Emergency Use Authorizatio n (EUA). The test is only authorized for the duration of the declaration that ci rcumstances exist justifying the authorization of emergency use of in vitro diag nostic tests for detection and/or diagnosis of SARS-CoV-2 under section 564(b) o f the Act, 21 U.S.C. section 360bbb-3(b)(1), unless the authorization is termina skip or revoked sooner. [facility] are certified under the C linical Laboratory Improvement Amendments of 1988 (CLIA), 42 U.S.C. section 263a , to perform high complexity tests.Testing performed by [facility] [address] [phone] Director: Leonard Chan M.D.CLIA # [id number] [facility] Fluoroscopic procedure less than one hour emkgebdj6898-99-48 20:35:00* Test Item Value Reference Range Interpretation Comments Lactic Acid Level (test code = Lactic Acid Level) 1.8 0.5- 2.0 [facility] IrvingFluoroscopic procedure less than one hour [id number] 20:35:00* Test Item Value Reference Range Interpretation Comments Lactic Acid Level (test code = Lactic Acid Level) 1.8 0.5- 2.0 [facility] IrvingUrine color kkxcyujrdozgw7971-06-33 20:30:00* Test Item Value Reference Range Interpretation Comments Urine Color (test code = 5778-6) OTHER YELLOW PINKBaylor Scott & White Medical Center – IrvingUrine awqzshc2525-24-98 20:30:00* Test Item Value Reference Range Interpretation Comments Urine Clarity (test code = 02256-6) CLOUDY CLEAR [facility] Dentonpecific gravity of Urine by Test strip 2019-07-04 20:30:00* Test Item Value Reference Range Interpretation Comments Urine Specific [place] (test code = 5811-5) 1.025 1.010-1.02 5 [facility] IrvingUrine pH measurement by automated test [id number] 20:30:00* Test Item Value Reference Range Interpretation Comments Urine pH (test code = 24249-4) 8.5 5-7 [facility] IrvingUrine leukocyte esterase detection by ohrpqssl9955-24-12 20:30:00* Test Item Value Reference Range Interpretation Comments Urine Leukocyte Esterase (test code = 5799-2) LARGE NEGATIVE [facility] IrvingUrine nitrite tygherejy9735-89-10 20:30:00* Test Item Value Reference Range Interpretation Comments Urine Nitrite (test code = 28613-7) NEGATIVE NEGATIVE [facility] IrvingUrine protein measurement by test strip (mass/volume)2019-07-04 20:30:00* Test Item Value Reference Range Interpretation Comments Urine Protein (test code = 5804-0) >=300 NEGATIVE [facility] IrvingUrine glucose okqqpiday3917-43-78 20:30:00* Test Item Value Reference Range Interpretation Comments Urine Glucose (UA) (test code = 2349-9) NEGATIVE NEGATIVE [facility] IrvingUrine ketones detection by automated test xesrd7740-80-23 20:30:00* Test Item Value Reference Range Interpretation Comments Urine Ketones (test code = 97050-2) NEGATIVE NEGATIVE [facility] IrvingUrine urobilinogen measurement by test strip (mass/volume)2019-07-04 20:30:00* Test Item Value Reference Range Interpretation Comments Urine Urobilinogen (test code = 53364-3) 0.2 0.2-1 [facility] IrvingUrine total bilirubin measurement (mass/volume)2019-07-04 20:30:00* Test Item Value Reference Range Interpretation Comments Urine Bilirubin (test code = 1978-6) NEGATIVE NEGATIVE [facility] IrvingUrine erythrocytes xtgaauwmh2521-33-39 20:30:00* Test Item Value Reference Range Interpretation Comments Urine Blood (test code = 72130-9) LARGE NEGATIVE [facility] IrvingAutomated urine sediment leukocyte count by microscopy (number/high power field)2019-07-04 20:30:00* Test Item Value Reference Range Interpretation Comments Urine WBC (test code = 5821-4) 11-20 0-5 [facility] IrvingErythrocytes detection in urine sediment by light bivgigenbm3236-08-77 20:30:00* Test Item Value Reference Range Interpretation Comments Urine RBC (test code = 45153-7) 11-20 0-5 [facility] IrvingBacteria detection in urine sediment by light sjokntjyyr3707-52-53 20:30:00* Test Item Value Reference Range Interpretation Comments Urine Bacteria (test code = 16311-7) MANY NONE [facility] IrvingEpithelial cells detection in urine sediment by light zxzjwfzurk6132-23-48 20:30:00* Test Item Value Reference Range Interpretation Comments Urine Epithelial Cells (test code = 14091-3) NONE NONE [facility] IrvingBlood [id number] 20:30:00* Test Item Value Reference Range Interpretation Comments Blood Culture (test code = 66223575) NO GROWTH AFTER 72 HOURS [facility] IrvingBacterial urine baibapy4904-41-77 20:30:00* Test Item Value Reference Range Interpretation Comments Urine Culture (test code = 630-4) VALERIO ALBICANS [facility] IrvingBacterial urine [id number] 20:30:00* Test Item Value Reference Range Interpretation Comments Urine Culture (test code = 630-4) PSEUDO FLUORESCENS/PUTIDA [facility] IrvingBlood [id number] 20:30:00* Test Item Value Reference Range Interpretation Comments Blood Culture (test code = 63685487) NO GROWTH AFTER 5 DAYS, FINAL REPORT [facility] IrvingBacterial urine dvzfdzd1325-30-13 20:30:00* Test Item Value Reference Range Interpretation Comments Urine Culture (test code = 630-4) VALERIO ALBICANS [facility] IrvingBacterial urine bmmqspv2981-43-00 20:30:00* Test Item Value Reference Range Interpretation Comments Urine Culture (test code = 630-4) PSEUDO FLUORESCENS/PUTIDA [facility] IrvingProthrombin time (PT) in platelet poor plasma by coagulation twwqs6491-32-85 20:15:00* Test Item Value Reference Range Interpretation Comments Prothrombin Time (test code = 5902-2) 12.7 11.9-14.5 [facility] IrvingINR in Platelet poor plasma by Coagulation wfzkd9900-13-26 20:15:00* Test Item Value Reference Range Interpretation Comments Prothromb Time International Ratio (test code = 6301-6) 0.90 Oral Anticoagulant Therapy INR Values:1. Low Intensity Therapy 1.5 - 2.02 . Moderate Intensity Therapy 2.0 - 3.03. High Intensity Therapy(1) 2.5 - 3. 54. High Intensity Therapy(2) 3.0 - 4.05. Panic Value INR > 5.0 [facility] IrvingActivated partial thromboplastin time (aPTT) in platelet poor plasma by coagulation weoea6611-47-80 20:15:00* Test Item Value Reference Range Interpretation Comments Activated Partial Thromboplast Time (test code = 10990-7) 28.6 23.8-35.5 [facility] IrvingB[facility]ent[facility] leukocytes automated count (number/volume)2019-06-11 04:45:00* Test Item Value Reference Range Interpretation Comments White Blood Count (test code = 6690-2) 10.45 4.8-10.8 [facility] IrvingBlood erythrocytes automated count (number/volume)2019-06-11 04:45:00* Test Item Value Reference Range Interpretation Comments Red Blood Count (test code = 789-8) 3.91 3.6-5.1 [facility] IrvingBlood hemoglobin measurement (moles/volume)2019-06-11 04:45:00* Test Item Value Reference Range Interpretation Comments Hemoglobin (test code = 76890-4) 10.0 12.0-16.0 [facility] IrvingAutomated blood hematocrit (volume fraction)2019-06-11 04:45:00* Test Item Value Reference Range Interpretation Comments Hematocrit (test code = 4544-3) 32.4 34.2-44.1 [facility] IrvingAutomated erythrocyte mean corpuscular qdgsja6210-58-12 04:45:00* Test Item Value Reference Range Interpretation Comments Mean Corpuscular Volume (test code = 787-2) 82.9 81-99 [facility] IrvingAutomated erythrocyte mean corpuscular hemoglobin (mass per erythrocyte)2019-06-11 04:45:00* Test Item Value Reference Range Interpretation Comments Mean Corpuscular Hemoglobin (test code = 785-6) 25.6 28-32 [facility] IrvingAutomated erythrocyte mean corpuscular hemoglobin concentration measurement (mass/volume)2019-06-11 04:45:00* Test Item Value Reference Range Interpretation Comments Mean Corpuscular Hemoglobin Concent (test code = 786-4) 30.9 31-35 [facility] IrvingRDW XfjUn-Zdb4367-78-02 04:45:00* Test Item Value Reference Range Interpretation Comments Red Cell Distribution Width (test code = 27929-2) 14.7 11.7 -14.4 [facility] IrvingAutomated blood platelet count (count/volume)2019-06-11 04:45:00* Test Item Value Reference Range Interpretation Comments Platelet Count (test code = 777-3) 272 140-360 [facility] IrvingAutformerly [facility] wake countyed blood segmented neutrophil count as percentage of total btkbqtulsm6630-13-10 04:45:00* Test Item Value Reference Range Interpretation Comments Neutrophils (%) (Auto) (test code = 51582-0) 54.2 38.7-80.0 [facility] IrvingAutomated blood lymphocyte count as percentage ot total dkdpahepra2396-53-81 04:45:00* Test Item Value Reference Range Interpretation Comments Lymphocytes (%) (Auto) (test code = 736-9) 35.0 18.0-39.1 [facility] IrvingAutomated blood monocyte count as percentage of total yudygszlku7696-23-45 04:45:00* Test Item Value Reference Range Interpretation Comments Monocytes (%) (Auto) (test code = 5905-5) 7.1 4.4-11.3 [facility] IrvingAutomated blood eosinophil count as percentage of total sgkjorepax4806-01-10 04:45:00* Test Item Value Reference Range Interpretation Comments Eosinophils (%) (Auto) (test code = 713-8) 2.5 0.0-6.0 [facility] IrvingAutomated blood basophil count as percentage of total xwzihpazwf2382-57-63 04:45:00* Test Item Value Reference Range Interpretation Comments Basophils (%) (Auto) (test code = 706-2) 0.4 0.0-1.0 [facility] IrvingFluoroscopic procedure less than one hour jvhgjcrn0996-24-12 04:45:00* Test Item Value Reference Range Interpretation Comments IM GRANULOCYTES % (test code = IM GRANULOCYTES %) 0.8 0.0- 1.0 [facility] IrvingAutomated blood neutrophil count 2019-06-11 04:45:00* Test Item Value Reference Range Interpretation Comments Neutrophils # (Auto) (test code = 751-8) 5.7 2.1-6.9 [facility] IrvingBlood lymphocytes count (number/volume) 2019-06-11 04:45:00* Test Item Value Reference Range Interpretation Comments Lymphocytes # (Auto) (test code = 51269-8) 3.7 1.0-3.2 [facility] IrvingBlood monocytes automated count (number/volume)2019-06-11 04:45:00* Test Item Value Reference Range Interpretation Comments Monocytes # (Auto) (test code = 742-7) 0.7 0.2-0.8 [facility] IrvingAutomated blood eosinophil count 2019-06-11 04:45:00* Test Item Value Reference Range Interpretation Comments Eosinophils # (Auto) (test code = 711-2) 0.3 0.0-0.4 [facility] IrvingAutomated blood basophil count (count/volume)2019-06-11 04:45:00* Test Item Value Reference Range Interpretation Comments Basophils # (Auto) (test code = 704-7) 0.0 0.0-0.1 [facility] IrvingFluoroscopic procedure less than one hour suyncnua9099-01-79 04:45:00* Test Item Value Reference Range Interpretation Comments Absolute Immature Granulocyte (auto (irena t code = Absolute Immature Granulocyte (auto) 0.08 0-0.1 [facility] IrvingCapillary blood glucose measurement by glucometer (mass/volume)2019-06-10 19:25:00* Test Item Value Reference Range Interpretation Comments Bedside Glucose (test code = 45264-5) 187 70-120 Meter ID: [id number] Scott and [facility] the [facility] – Dentonerum or plasma sodium measurement (moles/volume)2019-06-10 05:20:00* Test Item Value Reference Range Interpretation Comments Sodium Level (test code = 2951-2) 138 136-145 [facility] Dentonerum or plasma potassium measurement (moles/volume)2019-06-10 05:20:00* Test Item Value Reference Range Interpretation Comments Potassium Level (test code = 2823-3) 3.6 3.5-5.1 [facility] Dentonerum or plasma chloride measurement (moles/volume)2019-06-10 05:20:00* Test Item Value Reference Range Interpretation Comments Chloride Level (test code = 2075-0) 109 98-107 [facility] Dentonerum or plasma carbon dioxide, total measurement (moles/volume)2019-06-10 05:20:00* Test Item Value Reference Range Interpretation Comments Carbon Dioxide Level (test code = 2028-9) 23 22-29 [facility] Dentonerum or plasma anion ixb0534-10-88 05:20:00* Test Item Value Reference Range Interpretation Comments Anion Gap (test code = 79111-7) 9.6 8-16 [facility] Dentonerum or plasma urea nitrogen measurement (mass/volume)2019-06-10 05:20:00* Test Item Value Reference Range Interpretation Comments Blood Urea Nitrogen (test code = 3094-0) 19 7-26 [facility] Dentonerum or plasma creatinine measurement (mass/volume)2019-06-10 05:20:00* Test Item Value Reference Range Interpretation Comments Creatinine (test code = 2160-0) 1.27 0.57-1.11 [facility] Dentonerum or plasma urea nitrogen/creatinine mass jixfo4713-78-78 05:20:00* Test Item Value Reference Range Interpretation Comments BUN/Creatinine Ratio (test code = 3097-3) 15 6-25 [facility] IrvingEstimated glomerular filtration rate (GFR) tdqsjkjoqprlg7404-78-22 05:20:00* Test Item Value Reference Range Interpretation Comments Estimat Glomerular Filtration Rate (test code = 227270723) 44 >60 Ranges were taken from the National Kidney Disease Education Program and the [facility] Foundation literature.Reference ranges:60 or greater: Cjivdq25-61 ( for 3 consecutive months): Chronic kidney disease 15 or less: Kidney failureBaylor Scott & White Medical Center – IrvingGlucose rrmebuadqse7389-18-76 05:20:00* Test Item Value Reference Range Interpretation Comments Glucose Level (test code = YZL6753) 163 74-118 [facility] Dentonerum or plasma calcium measurement (mass/volume)2019-06-10 05:20:00* Test Item Value Reference Range Interpretation Comments Calcium Level (test code = 31265-5) 8.6 8.4-10.2 [facility] IrvingRETROGRADE NAAPHIGLO4711-92-96 14:31:00 [facility] [address] [address] Patient Name: WESLY HUTCHINSON MR #: [id number] : 1960 Age/Sex: 58/F Req #: [id number] [facility] Physician: FIGUEROA CARD MD Ordered by: JARET ESPINOSA MD Report #: [id number] Location: MED/SURG Room/Bed: [facility] [place] Procedure: [id number] DX/RETROGRAD E PYELOGRAM Exam Date: 06/09/19 Exam Time: 713 REPORT STATUS: Signed OR Fluoroscopy: IMPRESSION: Fluoroscopy service provided in the OR. Interpretation not requested. Signed by: Gutierrez Lora MD on 06/09/2019 2:31 PM Dictate d By: GUTIERREZ LORA MD 1431 COPY TO: JARET ESPINOSA MD Bacterial urine jvwfvdb1583-74-65 07:40:00* Test Item Value Reference Range Interpretation Comments Urine Culture (test code = 630-4) VALERIO ALBICANS [facility] IrvingPhosphorus hfyppkjgntc4866-89-44 05:05:00 * Test Item Value Reference Range Interpretation Comments Phosphorus Level (test code = WNU2861) 2.7 2.3-4.7 [facility] Dentonerum or plasma magnesium measurement (mass/volume)2019-06-09 05:05:00* Test Item Value Reference Range Interpretation Comments Magnesium Level (test code = 69255-7) 1.9 1.3-2.1 [facility] IrvingPhosphorus myfjiipssgj7347-29-65 05:05:00 * Test Item Value Reference Range Interpretation Comments Phosphorus Level (test code = YEY2375) 2.7 2.3-4.7 [facility] Dentonerum or plasma magnesium measurement (mass/volume)2019-06-09 05:05:00* Test Item Value Reference Range Interpretation Comments Magnesium Level (test code = 42993-5) 1.9 1.3-2.1 [facility] IrvingPhosphorus chpploqeiur2980-10-44 05:05:00 * Test Item Value Reference Range Interpretation Comments Phosphorus Level (test code = TJP2384) 2.7 2.3-4.7 [facility] Dentonerum or plasma magnesium measurement (mass/volume)2019-06-09 05:05:00* Test Item Value Reference Range Interpretation Comments Magnesium Level (test code = 77980-5) 1.9 1.3-2.1 [facility] IrvingFluoroscopic procedure less than one hour iddblqdd6482-66-61 09:50:00* Test Item Value Reference Range Interpretation Comments Coronavirus (PCR) (test code = Coronavirus (PCR)) NOT DETECTED NOTD ETECTED SARS-COV-2 (COVID19), HIGHRISK, RT-PCRNegative results do not preclude SARS-CoV- 2 infection and should not be used as the sole basis for patient management deci sions. Negative results must be combined with clinical observations, patient his tory, and epidemiological information. Optimum specimen types and timing for pea k viral levels during infections caused by SARS-CoV-2 have not been determined. Collection of multiple specimens ot types of specimens may be necessary to detec t virus. Improper specimen collection and handling, sequence variability under p rimers/probes, or organism present below the limit of detection may lead to fals e negative results. Positive and negative predictive values of testing are highl y dependent on prevalance. False negative test results are more likely when prev alence is high.The expected result is negative (not detected).The SARS-CoV-2 irena t is intended for the qualitative detection of nucleic acid from SARS-CoV-2 in n asopharyngeal and oropharyngeal swab samples from patients who meet COVID-19 cli nical and or epidemiological criteria. For lower respiratory tract specimens, th e assay is submitted for authoriztion by FDA under an Emergency Use Authorizatio n (EUA). Testing methodology is real time RT-PCR. If received as separate collec tion devices, nasopharygeal and oropharyngeal specimens are combined for analysi s. Additional specimens may be split to a separate accession for analysi and rep orting as this test includes a single unit of service.Test results must be corre lated with clinical presentation and evaluated in the context of other laborator y and epidemiologic data. Test performance can be affected because the epidemiol ogy and clinical spectrum of infection caused by SARS-CoV-2 is not fully known. For example, the optimum types of specimens to collect and when during the cours e of infection these specimens are most likely to contain detectable viral RNA m ay not be known.This test has not been Food and Drug Administration (FDA) cleare d or approved and has been authorized by FDA under an Emergency Use Authorizatio n (EUA). The test is only authorized for the duration of the declaration that ci rcumstances exist justifying the authorization of emergency use of in vitro diag nostic tests for detection and/or diagnosis of SARS-CoV-2 under section 564(b) o f the Act, 21 U.S.C. section 360bbb-3(b)(1), unless the authorization is termina skip or revoked sooner. [facility] are certified under the C linical Laboratory Improvement Amendments of 1988 (CLIA), 42 U.S.C. section 263a , to perform high complexity tests.Specimen sent to [facility] and testing performed by [facility] [address] [place] [address] [phone] Director: Leonard Chan M.D.CLIA # [id number] [facility] MarshallNEPHRO/URET W IMG/INJ-EXISTING 2019-06-07 15:57:[address] [address] Patient Name: WESLY HUTCHINSON MR #: [id number] : 1960 Age/Sex: 58/F Req #: [id number] Adm Physician: FIGUEROA CARD MD Ordered by: JARET ESPINOSA MD Report #: [id number] Location: MED/SURG Room/Bed: [facility] [place] Procedure: [id number] IR/NEPHRO/UR ET W IMG/INJ-EXISTING Exam Date: Exam [...] r): 27.4 mGy. Approach: The indwelling 10 Cook Islander neph rostomy catheter Estimated blood loss: < 5 cc. Specimen: None. paper cutting machine operator: Leon Lo MD. Gravel Inspector: None. Technique/findings: Informed written consent was obtained. Discussion of risks, benefits, and alternatives were made with the patient. The patient expressed understanding and agreed to proceed. A universal timeout was performed prior to starting the procedure. All elements maximal sterile b arrier technique was utilized for this procedure, including utilization of ahmet rile scrub solution for skin prep, a [...] given occluded end hole. Subsequent, a 5 [place] Islander Kumpe catheter and 0.035 angled Glidewire was used to obtain access into the right collecting system along side the indwelling nephrostomy cathete r. The Glidewire was exchanged for a 0.035 Bentson wire. The indwelling nephro stomy catheter was removed. A new 12 [place] Islander and a prosthetic catheter was adva nced [...] on 06/07/191602 COPY TO: JARET ESPINOSA MD IR TOVWTFD8491-56-17 15:57:00 [address] [address] Patient Name: WESLY HUTCHINSON MR #: [id number] : 1960 Age/Sex: 58/F Req #: [id number] Adm Physician: FIGUEROA CARD MD Ordered by: JARET ESPINOSA MD Report #: [id number] Location: MED/SURG Room/Bed: [facility] [place] Procedure: [id number] DX/IR CONSUL T Exam Date: Exam Time: [...] r): 27.4 mGy. Approach: The indwelling 10 [place] Islander nephrostomy catheter Estimated blood loss: < 5 cc. Specimen: None. paper cutting machine operator: Leon Lo MD. Gravel Inspector: None. Technique/findings: Informed written consent was obtained. [...] given occluded end hole. Subsequent, a 5 [place] Islander Kumpe catheter and 0.035 angled Glidewire was used to obtain access into the right collecting system along side the indwelling nephrostomy catheter. The Glidewire was exchanged for a 0.035 Bentson wire. The indwelling nephrostomy catheter was removed. A new 12 [place] Islander and a prosthetic catheter was advanced with [...] 06/07/19 160 Transcribed By: DEYANIRA on 06/07/19 160 COPY TO: JARET ESPINOSA MD Fluoroscopic procedure less than one hour kgseihjj0176-64-84 04:40:00* Test Item Value Reference Range Interpretation Comments Hemoglobin A1c Percent (test code = Hemoglobin A1c Percent) 6.9 4.0-7.0 [facility] IrvingFluoroscopic procedure less than one hour zoufdnun5630-22-38 04:40:00* Test Item Value Reference Range Interpretation Comments Hemoglobin A1c Percent (test code = Hemoglobin A1c Percent) 6.9 4.0-7.0 [facility] IrvingFluoroscopic procedure less than one hour malbdest8554-23-21 04:40:00* Test Item Value Reference Range Interpretation Comments Hemoglobin A1c Percent (test code = Hemoglobin A1c Percent) 6.9 4.0-7.0 [facility] Dentonerum or plasma total bilirubin measurement (mass/volume)2019-06-05 05:10:00* Test Item Value Reference Range Interpretation Comments Total Bilirubin (test code = 1975-2) 0.2 0.2-1.2 [facility] IrvingFluoroscopic procedure less than one hour bduxqyyt1074-42-12 05:10:00* Test Item Value Reference Range Interpretation Comments Aspartate Amino Transf (AST/SGOT) (test code = Aspartate Amino Transf (AST/SGOT)) 9 5-34 [facility] Dentonerum or plasma alanine aminotransferase measurement (enzymatic activity/volume)2019-06-05 05:10:00* Test Item Value Reference Range Interpretation Comments Alanine Aminotransferase (ALT/SGPT) (test code = 1742-6) 12 0-55 [facility] Dentonerum or plasma protein measurement (mass/volume)2019-06-05 05:10:00* Test Item Value Reference Range Interpretation Comments Total Protein (test code = 2885-2) 7.3 6.5-8.1 [facility] Dentonerum or plasma albumin measurement (mass/volume)2019-06-05 05:10:00* Test Item Value Reference Range Interpretation Comments Albumin (test code = 1751-7) 2.8 3.5-5.0 [facility] IrvingPlasma globulin measurement (mass/volume) 2019-06-05 05:10:00* Test Item Value Reference Range Interpretation Comments Globulin (test code = 03504-5) 4.5 2.3-3.5 [facility] Dentonerum or plasma albumin/globulin mass kxaen5865-97-75 05:10:00* Test Item Value Reference Range Interpretation Comments Albumin/Globulin Ratio (test code = 1759-0) 0.6 0.8-2.0 [facility] Dentonerum or plasma alkaline phosphatase measurement (enzymatic activity/volume)2019-06-05 05:10:00* Test Item Value Reference Range Interpretation Comments Alkaline Phosphatase (test code = 6768-6) 90 40-150 [facility] MarshallCT ABDOM[facility]/PELVIS OI3755-54-61 17:22:00 [facility] [address] [address] Patient Name: WESLY HUTCHINSON MR #: [id number] : Age/Sex: 58/F Req #: [id number] Adm Physician: FIGUEROA CARD MD Ordered by: FIGUEROA CARD MD Report #: [id number] Location: MED/SURG Room/Bed: [facility] [place] Procedure: [id number] C T/CT ABDOMEN/PELVIS WO Exam Date: 06/04/19 Exam Time : 1700 REPORT STATUS: Signed CT Abdomen and Pelvis without contrast INDICATION: UTI/abdominal pain, ureter al stents and percutaneous nephrostomies ABD PAIN [id number] 170 TE CHNIQUE: Thin collimation axial images obtained [...] set by the Radiation Protocol Commit britni (RPC). COMPARISON: CT abdomen/pelvis 05/29/2018. ABDOMEN FINDINGS: Lung [...] COPY TO: FIGUEROA CARD MD CT BRAIN [id number] 15:26:00 [address] [address] Patient Name: WESLY HUTCHINSON MR #: [id number] : 1960 Age/Sex: 58/F Req #: [id number] Adm Physician: FIGUEROA CARD MD Ordered by: LIZ MUÑIZ MD Report #: [id number] Location: MED/SURG Room/Bed: [facility] [place] Procedure: [id number]/CT BRAIN WO Exam [...] 06/04/2019 3:31 PM Dictated By: JEANNETTE Flowers 1531 Trans cribed By: DEYANIRA on 06/04/19 1531 COPY TO: LIZ MUÑIZ MD CHEST SINGLE (PORTABLE)2019-06-04 15:17:00 [address] [address] Patient Name: WESLY HUTCHINSON MR #: [id number] : 1960 Age/Sex: 58/F Req #: [id number] Adm Physician: FIGUEROA CARD MD Ordered by: LIZ MUÑIZ MD Report #: [id number] Location: MED/SURG Room/Bed: [facility] [place] Procedure: [id number] 6 DX/CHEST SINGLE (PORTABLE) Exam Date: 06/04/19 Jammie leon Time: 1430 REPORT STATUS: Signed EXAMINATION: CHEST SINGLE (PORTABLE) COMPARISON: Chest x-ray 12/19/19 18 INDICATION: Fever, pain, weakness LOW GRADE FEVER, SOMNOLENCE, LIKEL Y UTI [id number] DISCUSSION: Frontal view of the chest obtaine d at 1439 hours. HEART AND MEDIASTINUM: The [...] 06/04/191518 COPY TO: LIZ MUÑIZ MD Blood avsvrjw8122-69-30 12:11:00* Test Item Value Reference Range Interpretation Comments Blood Culture (test code = 18693958) NO GROWTH AFTER 5 DAYS, FINAL REPORT [facility] IrvingProthrombin time (PT) in platelet poor plasma by coagulation wibxs8695-25-84 11:56:00* Test Item Value Reference Range Interpretation Comments Prothrombin Time (test code = 5902-2) 13.7 11.9-14.5 [facility] IrvingINR in Platelet poor plasma by Coagulation ncuix3785-17-01 11:56:00* Test Item Value Reference Range Interpretation Comments Prothromb Time International Ratio (test code = 6301-6) 0.99 Oral Anticoagulant Therapy INR Values:1. Low Intensity Therapy 1.5 - 2.02 . Moderate Intensity Therapy 2.0 - 3.03. High Intensity Therapy(1) 2.5 - 3. 54. High Intensity Therapy(2) 3.0 - 4.05. Panic Value INR > 5.0 [facility] IrvingActivated partial thromboplastin time (aPTT) in platelet poor plasma by coagulation csuas0001-63-83 11:56:00* Test Item Value Reference Range Interpretation Comments Activated Partial Thromboplast Time (test code = 74689-1) 33.1 23.8-35.5 [facility] Dentonerum or plasma creatine kinase measurement (enzymatic activity/volume)2019-06-04 11:56:00* Test Item Value Reference Range Interpretation Comments Creatine Kinase (test code = 2157-6) 28 29-168 [facility] Dentonerum or plasma creatine kinase MB measurement (mass/volume)2019-06-04 11:56:00* Test Item Value Reference Range Interpretation Comments Creatine Kinase MB (test code = 96568-1) 0.40 0-5.0 [facility] IrvingTroponin I measurement by highly sensitive enzyme pswuvusxlhv2299-32-49 11:56:00* Test Item Value Reference Range Interpretation Comments Troponin I (test code = 48520-8) < 0.001 0-0.300 [facility] Dentonerum or plasma creatine kinase measurement (enzymatic activity/volume)2019-06-04 11:56:00* Test Item Value Reference Range Interpretation Comments Creatine Kinase (test code = 2157-6) 28 29-168 [facility] Dentonerum or plasma creatine kinase MB measurement (mass/volume)2019-06-04 11:56:00* Test Item Value Reference Range Interpretation Comments Creatine Kinase MB (test code = 01903-4) 0.40 0-5.0 [facility] IrvingTroponin I measurement by highly sensitive enzyme yxvykvenbun5483-93-00 11:56:00* Test Item Value Reference Range Interpretation Comments Troponin I (test code = 86658-4) < 0.001 0-0.300 [facility] Dentonerum or plasma creatine kinase measurement (enzymatic activity/volume)2019-06-04 11:56:00* Test Item Value Reference Range Interpretation Comments Creatine Kinase (test code = 2157-6) 28 29-168 [facility] Dentonerum or plasma creatine kinase MB measurement (mass/volume)2019-06-04 11:56:00* Test Item Value Reference Range Interpretation Comments Creatine Kinase MB (test code = 95400-2) 0.40 0-5.0 [facility] IrvingTroponin I measurement by highly sensitive enzyme vhpexnqmkny2675-89-33 11:56:00* Test Item Value Reference Range Interpretation Comments Troponin I (test code = 16542-5) < 0.001 0-0.300 [facility] IrvingUrine color psngcohuoaeib1642-94-11 11:55:00* Test Item Value Reference Range Interpretation Comments Urine Color (test code = 5778-6) YELLOW YELLOW [facility] IrvingUrine phaujwj5790-38-97 11:55:00* Test Item Value Reference Range Interpretation Comments Urine Clarity (test code = 26775-8) HAZY CLEAR [facility] Dentonpecific gravity of Urine by Test strip 2019-06-04 11:55:00* Test Item Value Reference Range Interpretation Comments Urine Specific [place] (test code = 5811-5) 1.020 1.010-1.02 5 [facility] IrvingUrine pH measurement by automated test jlgpm7123-83-89 11:55:00* Test Item Value Reference Range Interpretation Comments Urine pH (test code = 06830-4) 8 5-7 [facility] IrvingUrine leukocyte esterase detection by earyrnxj9086-90-95 11:55:00* Test Item Value Reference Range Interpretation Comments Urine Leukocyte Esterase (test code = 5799-2) LARGE NEGATIVE [facility] IrvingUrine nitrite kdvaannhw3701-57-67 11:55:00* Test Item Value Reference Range Interpretation Comments Urine Nitrite (test code = 36307-3) NEGATIVE NEGATIVE [facility] IrvingUrine protein measurement by test strip (mass/volume)2019-06-04 11:55:00* Test Item Value Reference Range Interpretation Comments Urine Protein (test code = 5804-0) >=300 NEGATIVE [facility] IrvingUrine glucose bijhzwzdx6787-76-93 11:55:00* Test Item Value Reference Range Interpretation Comments Urine Glucose (UA) (test code = 2349-9) NEGATIVE NEGATIVE [facility] IrvingUrine ketones detection by automated test rdldc7634-36-20 11:55:00* Test Item Value Reference Range Interpretation Comments Urine Ketones (test code = 97728-5) NEGATIVE NEGATIVE [facility] IrvingUrine urobilinogen measurement by test strip (mass/volume)2019-06-04 11:55:00* Test Item Value Reference Range Interpretation Comments Urine Urobilinogen (test code = 47218-4) 0.2 0.2-1 [facility] IrvingUrine total bilirubin measurement (mass/volume)2019-06-04 11:55:00* Test Item Value Reference Range Interpretation Comments Urine Bilirubin (test code = 1978-6) NEGATIVE NEGATIVE [facility] IrvingUrine erythrocytes ffulvejyo7469-85-61 11:55:00* Test Item Value Reference Range Interpretation Comments Urine Blood (test code = 69927-6) 3+ NEGATIVE [facility] IrvingAutomated urine sediment leukocyte count by microscopy (number/high power field)2019-06-04 11:55:00* Test Item Value Reference Range Interpretation Comments Urine WBC (test code = 5821-4) >50 0-5 [facility] IrvingErythrocytes detection in urine sediment by light ykhwvranjw0051-31-76 11:55:00* Test Item Value Reference Range Interpretation Comments Urine RBC (test code = 71731-0) >50 0-5 [facility] IrvingBacteria detection in urine sediment by light fqelfxnwxm3938-95-76 11:55:00* Test Item Value Reference Range Interpretation Comments Urine Bacteria (test code = 64468-1) MODERATE NONE [facility] IrvingEpithelial cells detection in urine sediment by light ztamzozeyd7852-51-54 11:55:00* Test Item Value Reference Range Interpretation Comments Urine Epithelial Cells (test code = 33812-7) FEW NONE [facility] IrvingCoarse granular casts detection in urine sediment by light luvrpvgzjc6992-95-30 11:55:00* Test Item Value Reference Range Interpretation Comments Urine Coarse Granular Casts (test code = 56981-5) 1-5 >0 [facility] IrvingMucus detection in urine sediment by light wwxeywboiz1181-91-73 11:55:00* Test Item Value Reference Range Interpretation Comments Urine Mucus (test code = 8247-9) MODERATE RARE [facility] IrvingCoarse granular casts detection in urine sediment by light kpjthofwdw1310-90-16 11:55:00* Test Item Value Reference Range Interpretation Comments Urine Coarse Granular Casts (test code = 30980-7) 1-5 >0 [facility] IrvingMucus detection in urine sediment by light sqpmrlmosq2640-47-15 11:55:00* Test Item Value Reference Range Interpretation Comments Urine Mucus (test code = 8247-9) MODERATE RARE [facility] IrvingCoarse granular casts detection in urine sediment by light mndmreoion7829-79-06 11:55:00* Test Item Value Reference Range Interpretation Comments Urine Coarse Granular Casts (test code = 15951-3) 1-5 >0 [facility] IrvingMucus detection in urine sediment by light ezuohczepu4169-58-67 11:55:00* Test Item Value Reference Range Interpretation Comments Urine Mucus (test code = 8247-9) MODERATE RARE [facility] Vrvib9907-21-00 20:54:00* Test Item Value Reference Range Interpretation Comments Sodium Level (test code = 2951-2) 141 136-145 [facility] IrvingPotassium Hjqpr0719-94-99 20:54:00* Test Item Value Reference Range Interpretation Comments Potassium Level (test code = 2823-3) 3.9 3.5-5.1 [facility] IrvingChloride Hxoxs4136-94-08 20:54:00* Test Item Value Reference Range Interpretation Comments Chloride Level (test code = 2075-0) 105 98-107 [facility] IrvingCarbon Dioxide Mzdum7565-87-97 20:54:00* Test Item Value Reference Range Interpretation Comments Carbon Dioxide Level (test code = 2028-9) 25 22-29 [facility] IrvingAnion Mec6242-92-07 20:54:00* Test Item Value Reference Range Interpretation Comments Anion Gap (test code = 37929-9) 14.9 8-16 [facility] IrvingBlood Urea Xskslmbt5823-83-73 20:54:00* Test Item Value Reference Range Interpretation Comments Blood Urea Nitrogen (test code = 3094-0) 17 7-26 [facility] IrvingCreatinine2020-01-16 20:54:00* Test Item Value Reference Range Interpretation Comments Creatinine (test code = 2160-0) 0.99 0.57-1.11 [facility] IrvingBUN/Creatinine Vrepf9330-11-98 20:54:00* Test Item Value Reference Range Interpretation Comments BUN/Creatinine Ratio (test code = 3097-3) 17 6-25 [facility] IrvingEstimat Glomerular Filtration Rate 2019-02-24 20:54:00* Test Item Value Reference Range Interpretation Comments Estimat Glomerular Filtration Rate (test code = 413184345) 58 >60 L Ranges were taken from the National Kidney Disease Education Program and the [facility] Foundation literature.Reference ranges:60 or greater: Ytfhju83-11 ( for 3 consecutive months): Chronic kidney disease 15 or less: Kidney failureBaylor [facility] & [facility] – IrvingGlucose Jsftz2716-97-42 20:54:00* Test Item Value Reference Range Interpretation Comments Glucose Level (test code = GKL5298) 117 74-118 [facility] IrvingCalcium Qofmj3218-99-71 20:54:00* Test Item Value Reference Range Interpretation Comments Calcium Level (test code = 96974-2) 9.6 8.4-10.2 [facility] IrvingTotal Imfzjmowl6676-43-34 20:54:00* Test Item Value Reference Range Interpretation Comments Total Bilirubin (test code = 1975-2) 0.2 0.2-1.2 [facility] IrvingAspartate Amino Transf (AST/SGOT) 2019-02-24 20:54:00* Test Item Value Reference Range Interpretation Comments Aspartate Amino Transf (AST/SGOT) (test code = Aspartate Amino Transf (AST/SGOT)) 30 5-34 [facility] IrvingAlanine Aminotransferase (ALT/SGPT) 2019-02-24 20:54:00* Test Item Value Reference Range Interpretation Comments Alanine Aminotransferase (ALT/SGPT) (test code = 1742-6) 35 0-55 [facility] IrvingTotal Ttxchfr2543-14-16 20:54:00* Test Item Value Reference Range Interpretation Comments Total Protein (test code = 2885-2) 7.8 6.5-8.1 [facility] IrvingAlbumin2020-01-16 20:54:00* Test Item Value Reference Range Interpretation Comments Albumin (test code = 1751-7) 3.8 3.5-5.0 [facility] IrvingGlobulin2020-01-16 20:54:00* Test Item Value Reference Range Interpretation Comments Globulin (test code = 22433-5) 4.0 2.3-3.5 H [facility] IrvingAlbumin/Globulin Kvtec5046-04-16 20:54:00 * Test Item Value Reference Range Interpretation Comments Albumin/Globulin Ratio (test code = 1759-0) 1.0 0.8-2.0 [facility] IrvingAlkaline Tzkxekeggef9360-60-97 20:54:00* Test Item Value Reference Range Interpretation Comments Alkaline Phosphatase (test code = 6768-6) 134 40-150 [facility]2019-02-24 19:48:00 [facility] [address] [address] Patient Name: WESLY HUTCHINSON MR #: [id number] : Age/Sex: 58/F Req #: [id number] Adm Physician: Ordered by: ASHA BARDALES CLIP RIVETER Report #: [id number] Location: ER Room/Bed: Procedure: 0116-0 074 DX/ABDOMEN-1VIEW [...] DEYANIRA on 02/24/191948 COPY TO: ASHA BARDALES CLIP RIVETER Platelet Pcppfwjf2146-06-27 18:29:00* Test Item Value Reference Range Interpretation Comments Platelet Estimate (test code = 51154-2) SLIGHTLY DECREASED [facility] IrvingPlatelet Morphology Kkskkrx1904-03-97 18:29:00* Test Item Value Reference Range Interpretation Comments Platelet Morphology Comment (test code = 09791-4) NORMAL [facility] IrvingHypochromasia2020-01-16 18:29:00* Test Item Value Reference Range Interpretation Comments Hypochromasia (test code = 728-6) MODERATE [facility] IrvingPoikilocytosis2020-01-16 18:29:00* Test Item Value Reference Range Interpretation Comments Poikilocytosis (test code = 779-9) MODERATE [facility] IrvingAnisocytosis2020-01-16 18:29:00* Test Item Value Reference Range Interpretation Comments Anisocytosis (test code = 702-1) SLIGHT [facility] IrvingRed Cell Morphology Sbnuoev0668-10-01 18:29:00* Test Item Value Reference Range Interpretation Comments Red Cell Morphology Comment (test code = 6742-1) NORMAL [facility] IrvingPlatelet Psqqh6840-78-51 18:28:00* Test Item Value Reference Range Interpretation Comments Platelet Count (test code = 777-3) 114 140-360 L [facility] IrvingUrine NRK3490-55-05 18:08:00* Test Item Value Reference Range Interpretation Comments Urine WBC (test code = 5821-4) 6-10 0-5 H [facility] IrvingUrine QFO4509-98-85 18:08:00* Test Item Value Reference Range Interpretation Comments Urine RBC (test code = 70850-4) >50 0-5 H [facility] IrvingUrine Jtdnixvf1255-76-34 18:08:00* Test Item Value Reference Range Interpretation Comments Urine Bacteria (test code = 28526-6) MODERATE NONE H [facility] IrvingUrine Epithelial Zzfdd7956-12-93 18:08:00 * Test Item Value Reference Range Interpretation Comments Urine Epithelial Cells (test code = 62290-2) FEW NONE [facility] IrvingUrine Rfkmj2260-34-56 18:08:00* Test Item Value Reference Range Interpretation Comments Urine Mucus (test code = 8247-9) MODERATE RARE H [facility] IrvingUrine Jkxkx1344-77-58 17:51:00* Test Item Value Reference Range Interpretation Comments Urine Color (test code = 5778-6) YELLOW YELLOW [facility] IrvingUrine Vaxoqvd6537-39-20 17:51:00* Test Item Value Reference Range Interpretation Comments Urine Clarity (test code = 87912-5) CLEAR CLEAR [facility] Specific Wqzalip1815-14-78 17:51:00 * Test Item Value Reference Range Interpretation Comments Urine Specific [place] (test code = 5811-5) >=1.030 1.010-1.02 5 [facility] IrvingUrine tP0441-34-04 17:51:00* Test Item Value Reference Range Interpretation Comments Urine pH (test code = 02683-1) 6 5-7 [facility] Leukocyte Rufkdaor3349-63-79 17:51:00* Test Item Value Reference Range Interpretation Comments Urine Leukocyte Esterase (test code = 5799-2) SMALL NEGATIVE [facility] Lftczms2828-50-87 17:51:00* Test Item Value Reference Range Interpretation Comments Urine Nitrite (test code = 18424-4) NEGATIVE NEGATIVE [facility] Ikyfuwk6391-44-62 17:51:00* Test Item Value Reference Range Interpretation Comments Urine Protein (test code = 5804-0) 3+ NEGATIVE H [facility] Glucose (UA)2019-02-24 17:51:00* Test Item Value Reference Range Interpretation Comments Urine Glucose (UA) (test code = 2349-9) NEGATIVE NEGATIVE [facility] Wszedva1814-89-60 17:51:00* Test Item Value Reference Range Interpretation Comments Urine Ketones (test code = 97192-3) NEGATIVE NEGATIVE [facility] Raqxyjyhdcoc4258-93-47 17:51:00* Test Item Value Reference Range Interpretation Comments Urine Urobilinogen (test code = 04617-5) 0.2 0.2-1 [facility] IrvingUrine Prgkefhsx5461-29-38 17:51:00* Test Item Value Reference Range Interpretation Comments Urine Bilirubin (test code = 1978-6) NEGATIVE NEGATIVE [facility] IrvingUrine Itnol3433-09-31 17:51:00* Test Item Value Reference Range Interpretation Comments Urine Blood (test code = 56338-1) 3+ NEGATIVE [facility] IrvingWhite Blood Thwsn5971-49-34 17:44:00* Test Item Value Reference Range Interpretation Comments White Blood Count (test code = 6690-2) 7.26 4.8-10.8 [facility] IrvingRed Blood Hrbtf5663-47-86 17:44:00* Test Item Value Reference Range Interpretation Comments Red Blood Count (test code = 789-8) 4.09 3.6-5.1 [facility] IrvingHemoglobin2020-01-16 17:44:00* Test Item Value Reference Range Interpretation Comments Hemoglobin (test code = 16149-1) 10.6 12.0-16.0 L [facility] IrvingHematocrit2020-01-16 17:44:00* Test Item Value Reference Range Interpretation Comments Hematocrit (test code = 4544-3) 33.1 34.2-44.1 L [facility] IrvingMean Corpuscular Jshdxw2880-51-16 17:44:00* Test Item Value Reference Range Interpretation Comments Mean Corpuscular Volume (test code = 787-2) 80.9 81-99 L [facility] IrvingMean Corpuscular Usbegaerkr4563-08-17 17:44:00* Test Item Value Reference Range Interpretation Comments Mean Corpuscular Hemoglobin (test code = 785-6) 25.9 28-32 L [facility] IrvingMean Corpuscular Hemoglobin Concent 2019-02-24 17:44:00* Test Item Value Reference Range Interpretation Comments Mean Corpuscular Hemoglobin Concent (test code = 786-4) 32.0 31-35 [facility] IrvingRed Cell Distribution Yrxuy0483-29-41 17:44:00* Test Item Value Reference Range Interpretation Comments Red Cell Distribution Width (test code = 02605-4) 15.4 11.7 -14.4 H [facility] IrvingNeutrophils (%) (Auto)2019-02-24 17:44:00 * Test Item Value Reference Range Interpretation Comments Neutrophils (%) (Auto) (test code = 33557-8) 51.4 38.7-80.0 [facility] IrvingLymphocytes (%) (Auto)2019-02-24 17:44:00 * Test Item Value Reference Range Interpretation Comments Lymphocytes (%) (Auto) (test code = 736-9) 38.0 18.0-39.1 [facility] IrvingMonocytes (%) (Auto)2019-02-24 17:44:00* Test Item Value Reference Range Interpretation Comments Monocytes (%) (Auto) (test code = 5905-5) 8.0 4.4-11.3 [facility] IrvingEosinophils (%) (Auto)2019-02-24 17:44:00 * Test Item Value Reference Range Interpretation Comments Eosinophils (%) (Auto) (test code = 713-8) 1.7 0.0-6.0 [facility] IrvingBasophils (%) (Auto)2019-02-24 17:44:00* Test Item Value Reference Range Interpretation Comments Basophils (%) (Auto) (test code = 706-2) 0.6 0.0-1.0 [facility] IrvingIM GRANULOCYTES %2019-02-24 17:44:00* Test Item Value Reference Range Interpretation Comments IM GRANULOCYTES % (test code = IM GRANULOCYTES %) 0.3 0.0- 1.0 [facility] IrvingNeutrophils # (Auto)2019-02-24 17:44:00* Test Item Value Reference Range Interpretation Comments Neutrophils # (Auto) (test code = 751-8) 3.7 2.1-6.9 [facility] IrvingLymphocytes # (Auto)2019-02-24 17:44:00* Test Item Value Reference Range Interpretation Comments Lymphocytes # (Auto) (test code = 83172-7) 2.8 1.0-3.2 [facility] IrvingMonocytes # (Auto)2019-02-24 17:44:00* Test Item Value Reference Range Interpretation Comments Monocytes # (Auto) (test code = 742-7) 0.6 0.2-0.8 [facility] IrvingEosinophils # (Auto)2019-02-24 17:44:00* Test Item Value Reference Range Interpretation Comments Eosinophils # (Auto) (test code = 711-2) 0.1 0.0-0.4 [facility] IrvingBasophils # (Auto)2019-02-24 17:44:00* Test Item Value Reference Range Interpretation Comments Basophils # (Auto) (test code = 704-7) 0.0 0.0-0.1 [facility] IrvingAbsolute Immature Granulocyte (auto 2019-02-24 17:44:00* Test Item Value Reference Range Interpretation Comments Absolute Immature Granulocyte (auto (irena t code = Absolute Immature Granulocyte (auto) 0.02 0-0.1 [facility] IrvingBlood platelets count by estimate (number/volume)2019-02-24 16:28:00* Test Item Value Reference Range Interpretation Comments Platelet Estimate (test code = 98900-8) SLIGHTLY DECREASED [facility] IrvingPlatelet szrvzxhjeq2749-63-22 16:28:00* Test Item Value Reference Range Interpretation Comments Platelet Morphology Comment (test code = 76469-0) NORMAL [facility] hypochromia detection by light esozuhmisj3290-80-49 16:28:00* Test Item Value Reference Range Interpretation Comments Hypochromasia (test code = 728-6) MODERATE [facility] poikilocytosis detection by light hnqcbtibft4029-51-56 16:28:00* Test Item Value Reference Range Interpretation Comments Poikilocytosis (test code = 779-9) MODERATE [facility] IrvingBlood anisocytosis detection by light vybpkxorwz9878-61-99 16:28:00* Test Item Value Reference Range Interpretation Comments Anisocytosis (test code = 702-1) SLIGHT [facility] IrvingRBC aeehbdavsb6547-75-62 16:28:00* Test Item Value Reference Range Interpretation Comments Red Cell Morphology Comment (test code = 6742-1) NORMAL [facility] platelets count by estimate (number/volume)2019-02-24 16:28:00* Test Item Value Reference Range Interpretation Comments Platelet Estimate (test code = 48318-0) SLIGHTLY DECREASED [facility] IrvingPlatelet rceyfpndex8894-75-20 16:28:00* Test Item Value Reference Range Interpretation Comments Platelet Morphology Comment (test code = 54145-8) NORMAL [facility] hypochromia detection by light mfuchdrrrd9939-20-26 16:28:00* Test Item Value Reference Range Interpretation Comments Hypochromasia (test code = 728-6) MODERATE [facility] poikilocytosis detection by light epzgynvudy4649-54-42 16:28:00* Test Item Value Reference Range Interpretation Comments Poikilocytosis (test code = 779-9) MODERATE [facility] anisocytosis detection by light qyxgaexqpv8340-49-24 16:28:00* Test Item Value Reference Range Interpretation Comments Anisocytosis (test code = 702-1) SLIGHT [facility] zxpcsubznn8730-09-48 16:28:00* Test Item Value Reference Range Interpretation Comments Red Cell Morphology Comment (test code = 6742-1) NORMAL [facility] platelets count by estimate (number/volume)2019-02-24 16:28:00* Test Item Value Reference Range Interpretation Comments Platelet Estimate (test code = 97574-5) SLIGHTLY DECREASED [facility] ckugauvmtm2048-27-31 16:28:00* Test Item Value Reference Range Interpretation Comments Platelet Morphology Comment (test code = 71576-1) NORMAL [facility] hypochromia detection by light cdkljzkvdl9987-53-19 16:28:00* Test Item Value Reference Range Interpretation Comments Hypochromasia (test code = 728-6) MODERATE [facility] poikilocytosis detection by light addaaspmuq6381-91-46 16:28:00* Test Item Value Reference Range Interpretation Comments Poikilocytosis (test code = 779-9) MODERATE [facility] anisocytosis detection by light ticcxrjxhe9460-40-15 16:28:00* Test Item Value Reference Range Interpretation Comments Anisocytosis (test code = 702-1) SLIGHT [facility] nlfmvwqnlj8379-33-05 16:28:00* Test Item Value Reference Range Interpretation Comments Red Cell Morphology Comment (test code = 6742-1) NORMAL [facility] Rjiafaa9833-33-01 11:30:00* Test Item Value Reference Range Interpretation Comments Bedside Glucose (test code = 34753-6) 131 70-120 H Meter ID: [id number] [facility] Culture 2019-02-11 10:27:00* Test Item Value Reference Range Interpretation Comments Blood Culture (test code = 97249063) NO GROWTH AFTER 5 DAYS, FINAL REPORT [facility] Dkuaiib4217-85-16 06:39:00* Test Item Value Reference Range Interpretation Comments Bedside Glucose (test code = 05317-7) 132 70-120 H Meter ID: [id number] Scott & [facility] Center – IrvingUrine Culture 2019-02-09 14:29:00* Test Item Value Reference Range Interpretation Comments Urine Culture (test code = 630-4) No Result Data Provided [facility] Ydvsvnf4128-35-87 14:29:00* Test Item Value Reference Range Interpretation Comments Urine Culture (test code = 630-4) No Result Data Provided [facility] Zguednj3798-73-49 10:27:00* Test Item Value Reference Range Interpretation Comments Blood Culture (test code = 78300087) NO GROWTH AFTER 72 HOURS [facility] Tldlqer0910-70-32 10:06:00* Test Item Value Reference Range Interpretation Comments Urine Culture (test code = 630-4) No Result Data Provided [facility] IrvingUrine Txyrlpt6258-85-98 10:06:00* Test Item Value Reference Range Interpretation Comments Urine Culture (test code = 630-4) No Result Data Provided [facility] IrvingIR BYNVFVL0469-53-80 15:02:00 [address] [address] Patient Name: WESLY HUTCHINSON MR #: [id number] : Age/Sex: 58/F Req #: [id number] [facility] Physician: FIGUEROA CARD MD Ordered by: JARET ESPINOSA MD Report #: [id number] [facility] Room[facility]Bed: [facility] Procedure: D X/IR CONSULT Exam Date: Exam Time: [...] weeks. PROCEDURE SUMMARY - Target organ: Unilateral augustine kidney - Antegrade nephrostogram(s) via the e xisting access - Nephrostomy tube exchange - Additional procedure(s): None PROCEDURE DETAILS: Pre-procedure Consent: Informed consent for the pr ocedure including risks, benefits and alternatives was obtained and time-out w as performed prior to the procedure. Preparation: The site was prepared and dr aped using maximal sterile barrier technique including cutaneous [...] loss (mL): Less than 10 Standardized report: _Salma theterExchange_v3 Attestation Signer name: Deja Dawson MD I attest that I was present for the entire procedure. I reviewed the stored images and agree with the report as written. Signed by: Deja Dawson MD on 019 3:05 PM Dictated By: DEJA DAWSON MD 1501 Transcribed By: DEYANIRA on 02/07/19 1504 COPY TO: JARET ESPINOSA MD NEPHRO/URET W IMG/RGQ-PVKGUSIO9879-29-30 15:02:00 [address] [address] Patient Name: WESLY HUTCHINSON MR #: [id number] : Age/Sex: 58/F Req #: [id number] Adm Physician: FIGUEROA CARD MD Ordered by: FIGUEROA CARD MD Report #: [id number] Location: MED/SURG3 Room/Bed: [facility] Procedure: [id number] I R/NEPHRO/URET W IMG/INJ-EXISTING Exam Date: Exam Ti me: REPORT STATUS: Signed PROCE DURE: Genitourinary catheter exchange Procedural Personnel Attending dylan bowie(s): Deja Dawson MD Fellow physician(s): None Resident physician(s): Charline ferguson Advanced practice provider(s): None Pre-procedure diagnosis: Right ure teral obstruction Post-procedure diagnosis: Same Indication: Routine schedul ed exchange Additional clinical history: None Complications: No immediate complications. IMPRESSION: Successful routine exchange of right nephr ostomy tube for new 10Fr nephrostomy tube. Plan: Routine exchange in 8 weeks. P ROCEDURE SUMMARY - Target organ: Unilateral augustine kidney - Antegrade nephro stogram(s) via the [...] Signed By: DEJA DAWSON MD on 02/07/19 1505 Transcribed By: DEYANIRA on 02/07/19 1505 COPY TO: FIGUEROA CARD MD Prothrombin Hrxu8215-03-80 09:45:00 * Test Item Value Reference Range Interpretation Comments Prothrombin Time (test code = 5902-2) 12.5 11.9-14.5 [facility] IrvingProthromb Time International Ratio 2019-02-07 09:45:00* Test Item Value Reference Range Interpretation Comments Prothromb Time International Ratio (test code = 6301-6) 0.89 Oral Anticoagulant Therapy INR Values:1. Low Intensity Therapy 1.5 - 2.02 . Moderate Intensity Therapy 2.0 - 3.03. High Intensity Therapy(1) 2.5 - 3. 54. High Intensity Therapy(2) 3.0 - 4.05. Panic Value INR > 5.0 [facility] IrvingProthrombin Wndm1639-59-02 09:45:00* Test Item Value Reference Range Interpretation Comments Prothrombin Time (test code = 5902-2) 12.5 11.9-14.5 [facility] IrvingProthromb Time International Ratio 2019-02-07 09:45:00* Test Item Value Reference Range Interpretation Comments Prothromb Time International Ratio (test code = 6301-6) 0.89 Oral Anticoagulant Therapy INR Values:1. Low Intensity Therapy 1.5 - 2.02 . Moderate Intensity Therapy 2.0 - 3.03. High Intensity Therapy(1) 2.5 - 3. 54. High Intensity Therapy(2) 3.0 - 4.05. Panic Value INR > 5.0 [facility] Dentonodium Wyudf0802-84-60 07:13:00* Test Item Value Reference Range Interpretation Comments Sodium Level (test code = 2951-2) 137 136-145 [facility] IrvingPotassium Ehora9570-40-91 07:13:00* Test Item Value Reference Range Interpretation Comments Potassium Level (test code = 2823-3) 4.0 3.5-5.1 [facility] IrvingChloride Vqixc8666-71-36 07:13:00* Test Item Value Reference Range Interpretation Comments Chloride Level (test code = 2075-0) 105 98-107 [facility] IrvingCarbon Dioxide Sgavg2963-07-50 07:13:00* Test Item Value Reference Range Interpretation Comments Carbon Dioxide Level (test code = 2028-9) 21 22-29 L [facility] IrvingAnion Ogy6483-86-63 07:13:00* Test Item Value Reference Range Interpretation Comments Anion Gap (test code = 18214-7) 15.0 8-16 [facility] IrvingBlood Urea Bjzhrkva7220-15-79 07:13:00* Test Item Value Reference Range Interpretation Comments Blood Urea Nitrogen (test code = 3094-0) 12 7-26 [facility] IrvingCreatinine2019-12-30 07:13:00* Test Item Value Reference Range Interpretation Comments Creatinine (test code = 2160-0) 0.83 0.57-1.11 [facility] IrvingBUN/Creatinine Tmouq5937-75-00 07:13:00* Test Item Value Reference Range Interpretation Comments BUN/Creatinine Ratio (test code = 3097-3) 14 6-25 [facility] IrvingEstimat Glomerular Filtration Rate 2019-02-07 07:13:00* Test Item Value Reference Range Interpretation Comments Estimat Glomerular Filtration Rate (test code = 705710840) > 60 >60 Ranges were taken from the National Kidney Disease Education Program and the [facility] literature.Reference ranges:60 or greater: Ermiox25-28 ( for 3 consecutive months): Chronic kidney disease 15 or less: Kidney failureB[facility] – IrvingGlucose Jfoeq3320-41-24 07:13:00* Test Item Value Reference Range Interpretation Comments Glucose Level (test code = KGG2748) 136 74-118 H [facility] IrvingCalcium Ylgim3546-90-47 07:13:00* Test Item Value Reference Range Interpretation Comments Calcium Level (test code = 18359-3) 9.0 8.4-10.2 [facility] IrvingTotal Dribnleqz8783-35-10 07:13:00* Test Item Value Reference Range Interpretation Comments Total Bilirubin (test code = 1975-2) 0.4 0.2-1.2 [facility] IrvingAspartate Amino Transf (AST/SGOT) 2019-02-07 07:13:00* Test Item Value Reference Range Interpretation Comments Aspartate Amino Transf (AST/SGOT) (test code = Aspartate Amino Transf (AST/SGOT)) 25 5-34 [facility] IrvingAlanine Aminotransferase (ALT/SGPT) 2019-02-07 07:13:00* Test Item Value Reference Range Interpretation Comments Alanine Aminotransferase (ALT/SGPT) (test code = 1742-6) 21 0-55 [facility] IrvingTotal Erndyhy2602-32-12 07:13:00* Test Item Value Reference Range Interpretation Comments Total Protein (test code = 2885-2) 7.2 6.5-8.1 [facility] IrvingAlbumin2019-12-30 07:13:00* Test Item Value Reference Range Interpretation Comments Albumin (test code = 1751-7) 2.8 3.5-5.0 L [facility] IrvingGlobulin2019-12-30 07:13:00* Test Item Value Reference Range Interpretation Comments Globulin (test code = 41855-7) 4.4 2.3-3.5 H [facility] IrvingAlbumin/Globulin Bxwom1901-92-83 07:13:00 * Test Item Value Reference Range Interpretation Comments Albumin/Globulin Ratio (test code = 1759-0) 0.6 0.8-2.0 L [facility] IrvingAlkaline Rivbnhftipk3920-19-42 07:13:00* Test Item Value Reference Range Interpretation Comments Alkaline Phosphatase (test code = 6768-6) 105 40-150 [facility] IrvingWhite Blood Vzshn6140-98-48 06:46:00* Test Item Value Reference Range Interpretation Comments White Blood Count (test code = 6690-2) 6.80 4.8-10.8 [facility] IrvingRed Blood Kljjk0065-15-15 06:46:00* Test Item Value Reference Range Interpretation Comments Red Blood Count (test code = 789-8) 3.75 3.6-5.1 [facility] IrvingHemoglobin2019-12-30 06:46:00* Test Item Value Reference Range Interpretation Comments Hemoglobin (test code = 04902-4) 9.5 12.0-16.0 L [facility] IrvingHematocrit2019-12-30 06:46:00* Test Item Value Reference Range Interpretation Comments Hematocrit (test code = 4544-3) 31.9 34.2-44.1 L [facility] IrvingMean Corpuscular Ezysrb6031-54-60 06:46:00* Test Item Value Reference Range Interpretation Comments Mean Corpuscular Volume (test code = 787-2) 85.1 81-99 [facility] IrvingMean Corpuscular Hhpzuyenhi9004-26-70 06:46:00* Test Item Value Reference Range Interpretation Comments Mean Corpuscular Hemoglobin (test code = 785-6) 25.3 28-32 L [facility] IrvingMean Corpuscular Hemoglobin Concent 2019-02-07 06:46:00* Test Item Value Reference Range Interpretation Comments Mean Corpuscular Hemoglobin Concent (test code = 786-4) 29.8 31-35 L [facility] IrvingRed Cell Distribution Abmuj3833-09-35 06:46:00* Test Item Value Reference Range Interpretation Comments Red Cell Distribution Width (test code = 96594-9) 15.5 11.7 -14.4 H [facility] IrvingPlatelet Orbsc5425-32-80 06:46:00* Test Item Value Reference Range Interpretation Comments Platelet Count (test code = 777-3) 225 140-360 [facility] IrvingNeutrophils (%) (Auto)2019-02-07 06:46:00 * Test Item Value Reference Range Interpretation Comments Neutrophils (%) (Auto) (test code = 80543-9) 60.9 38.7-80.0 [facility] IrvingLymphocytes (%) (Auto)2019-02-07 06:46:00 * Test Item Value Reference Range Interpretation Comments Lymphocytes (%) (Auto) (test code = 736-9) 26.3 18.0-39.1 [facility] IrvingMonocytes (%) (Auto)2019-02-07 06:46:00* Test Item Value Reference Range Interpretation Comments Monocytes (%) (Auto) (test code = 5905-5) 8.8 4.4-11.3 [facility] IrvingEosinophils (%) (Auto)2019-02-07 06:46:00 * Test Item Value Reference Range Interpretation Comments Eosinophils (%) (Auto) (test code = 713-8) 3.5 0.0-6.0 [facility] IrvingBasophils (%) (Auto)2019-02-07 06:46:00* Test Item Value Reference Range Interpretation Comments Basophils (%) (Auto) (test code = 706-2) 0.4 0.0-1.0 [facility] IrvingIM GRANULOCYTES %2019-02-07 06:46:00* Test Item Value Reference Range Interpretation Comments IM GRANULOCYTES % (test code = IM GRANULOCYTES %) 0.1 0.0- 1.0 [facility] IrvingNeutrophils # (Auto)2019-02-07 06:46:00* Test Item Value Reference Range Interpretation Comments Neutrophils # (Auto) (test code = 751-8) 4.1 2.1-6.9 [facility] IrvingLymphocytes # (Auto)2019-02-07 06:46:00* Test Item Value Reference Range Interpretation Comments Lymphocytes # (Auto) (test code = 48708-4) 1.8 1.0-3.2 [facility] IrvingMonocytes # (Auto)2019-02-07 06:46:00* Test Item Value Reference Range Interpretation Comments Monocytes # (Auto) (test code = 742-7) 0.6 0.2-0.8 [facility] IrvingEosinophils # (Auto)2019-02-07 06:46:00* Test Item Value Reference Range Interpretation Comments Eosinophils # (Auto) (test code = 711-2) 0.2 0.0-0.4 [facility] IrvingBasophils # (Auto)2019-02-07 06:46:00* Test Item Value Reference Range Interpretation Comments Basophils # (Auto) (test code = 704-7) 0.0 0.0-0.1 [facility] IrvingAbsolute Immature Granulocyte (auto 2019-02-07 06:46:00* Test Item Value Reference Range Interpretation Comments Absolute Immature Granulocyte (auto (irena t code = Absolute Immature Granulocyte (auto) 0.01 0-0.1 [facility] IrvingUrine MXX0722-76-33 10:00:00* Test Item Value Reference Range Interpretation Comments Urine WBC (test code = 5821-4) 11-20 0-5 H [facility] IrvingUrine LLN9597-57-72 10:00:00* Test Item Value Reference Range Interpretation Comments Urine RBC (test code = 22166-7) 11-20 0-5 H [facility] IrvingUrine Ffvccnyc8808-53-97 10:00:00* Test Item Value Reference Range Interpretation Comments Urine Bacteria (test code = 82111-8) MODERATE NONE H [facility] IrvingUrine Epithelial Djiar9803-67-07 10:00:00 * Test Item Value Reference Range Interpretation Comments Urine Epithelial Cells (test code = 60063-4) FEW NONE [facility] IrvingUrine Yrpwj3460-00-30 09:27:00* Test Item Value Reference Range Interpretation Comments Urine Color (test code = 5778-6) YELLOW YELLOW [facility] IrvingUrine Elaqgxs7743-43-34 09:27:00* Test Item Value Reference Range Interpretation Comments Urine Clarity (test code = 60621-7) SL CLOUDY CLEAR [facility] Specific Gipyuod0256-92-23 09:27:00 * Test Item Value Reference Range Interpretation Comments Urine Specific [place] (test code = 5811-5) 1.025 1.010-1.02 5 [facility] IrvingUrine jU8265-76-40 09:27:00* Test Item Value Reference Range Interpretation Comments Urine pH (test code = 73465-1) 7 5-7 [facility] Leukocyte Vohamdjp6515-27-63 09:27:00* Test Item Value Reference Range Interpretation Comments Urine Leukocyte Esterase (test code = 50505-4) SMALL NEGATIV E [facility] Obibclw1451-93-82 09:27:00* Test Item Value Reference Range Interpretation Comments Urine Nitrite (test code = 46668-2) POSITIVE NEGATIVE [facility] Rvjisay2949-48-82 09:27:00* Test Item Value Reference Range Interpretation Comments Urine Protein (test code = 26426-8) 2+ NEGATIVE H [facility] Glucose (UA)2019-02-06 09:27:00* Test Item Value Reference Range Interpretation Comments Urine Glucose (UA) (test code = 60593-3) NEGATIVE NEGATIVE [facility] Hywrahy6383-05-13 09:27:00* Test Item Value Reference Range Interpretation Comments Urine Ketones (test code = 08492-4) NEGATIVE NEGATIVE [facility] Xgatnfpimmyg4050-32-50 09:27:00* Test Item Value Reference Range Interpretation Comments Urine Urobilinogen (test code = 13972-3) 0.2 0.2-1 [facility] Hscctqtvg6362-11-32 09:27:00* Test Item Value Reference Range Interpretation Comments Urine Bilirubin (test code = 1977-8) NEGATIVE NEGATIVE [facility] MarshallU[facility] Cebbp7069-97-83 09:27:00* Test Item Value Reference Range Interpretation Comments Urine Blood (test code = 24103-3) MODERATE NEGATIVE [facility] MarshallABDOMEN-1VIEW (KUB)2019-02-06 08:49:00 [facility] [address] [address] Patient Name: WESLY HUTCHINSON MR #: [id number] : Age/Sex: 58/F Req #: [id number] Adm Physician: Ordered by: LIZ MUÑIZ MD Report #: [id number] Location: ER Room/Bed: Procedure: 1229-001 0 DX/ABDOMEN-1VIEW (KUB) Exam Date: 02/06/19 Exam Ti me: 0835 [...] COPY TO: LIZ MUÑIZ MD Bacterial urine lulslcs3499-77-40 07:10:00* Test Item Value Reference Range Interpretation Comments Urine Culture (test code = 630-4) PSEUDOMONAS AERUGINOSA [facility] IrvingUrine Ynfcuzf7229-74-54 08:04:00* Test Item Value Reference Range Interpretation Comments Urine Culture (test code = 630-4) No Result Data Provided [facility] IrvingUrine Lxadbji1880-59-63 08:04:00* Test Item Value Reference Range Interpretation Comments Urine Culture (test code = 630-4) No Result Data Provided [facility] IrvingABDOMEN-1VIEW (KUB)2019-01-14 16:47:00 [address] [address] Patient Name: WESLY HUTCHINSON MR #: [id number] : Age/Sex: 58/F Req #: [id number] Adm Physician: Ordered by: JARET ESPINOSA MD Report #: [id number] Location: OR Room/Bed: Procedure: [id number] D X/ABDOMEN-1VIEW (KUB) Exam Date: 01/14/19 Exam [...] PM D ictated By: JULIÁN NAPOLES MD 49 COPY TO: JARET PATEL MD Urine EPX2469-53-62 00:56:00* Test Item Value Reference Range Interpretation Comments Urine WBC (test code = 5821-4) >50 0-5 H [facility] IrvingUrine NQH9705-41-54 00:56:00* Test Item Value Reference Range Interpretation Comments Urine RBC (test code = 22599-1) >50 0-5 H [facility] IrvingUrine Dsqfnaqc4962-94-93 00:56:00* Test Item Value Reference Range Interpretation Comments Urine Bacteria (test code = 80654-5) MODERATE NONE H [facility] IrvingUrine Epithelial Styzv9670-92-44 00:56:00 * Test Item Value Reference Range Interpretation Comments Urine Epithelial Cells (test code = 53442-1) FEW NONE [facility] IrvingUrine Uszkj8288-61-32 00:53:00* Test Item Value Reference Range Interpretation Comments Urine Color (test code = 5778-6) STRAW YELLOW [facility] IrvingUrine Xvifsxa8974-52-96 00:53:00* Test Item Value Reference Range Interpretation Comments Urine Clarity (test code = 63356-6) CLOUDY CLEAR H [facility] IrvingUrine Specific Vxikypu3396-35-31 00:53:00 * Test Item Value Reference Range Interpretation Comments Urine Specific [place] (test code = 5811-5) 1.010 1.010-1.02 5 [facility] IrvingU[facility] jR0468-82-64 00:53:00* Test Item Value Reference Range Interpretation Comments Urine pH (test code = 19367-6) 7 5-7 [facility] IrvingU[facility] Leukocyte Xayjtamo2486-38-26 00:53:00* Test Item Value Reference Range Interpretation Comments Urine Leukocyte Esterase (test code = 34754-9) LARGE NEGATIV E [facility] IrvingUrine Dinbfah6085-26-18 00:53:00* Test Item Value Reference Range Interpretation Comments Urine Nitrite (test code = 94397-5) NEGATIVE NEGATIVE [facility] IrvingUrine Bmhesub6094-82-47 00:53:00* Test Item Value Reference Range Interpretation Comments Urine Protein (test code = 42916-4) 2+ NEGATIVE H [facility] IrvingUrine Glucose (UA)2019-01-13 00:53:00* Test Item Value Reference Range Interpretation Comments Urine Glucose (UA) (test code = 70925-4) NEGATIVE NEGATIVE [facility] IrvingUrine Jsmdtwl4194-08-94 00:53:00* Test Item Value Reference Range Interpretation Comments Urine Ketones (test code = 75543-1) NEGATIVE NEGATIVE [facility] Wdlvqdyhxarw5889-81-35 00:53:00* Test Item Value Reference Range Interpretation Comments Urine Urobilinogen (test code = 63013-6) 0.2 0.2-1 [facility] Yycelmvra3443-41-93 00:53:00* Test Item Value Reference Range Interpretation Comments Urine Bilirubin (test code = 1977-8) NEGATIVE NEGATIVE [facility] Fjdxa6914-78-49 00:53:00* Test Item Value Reference Range Interpretation Comments Urine Blood (test code = 95140-2) 3+ NEGATIVE [facility] IrvingBacterial urine lhodrvc6184-24-56 23:00:00* Test Item Value Reference Range Interpretation Comments Urine Culture (test code = 630-4) ENTEROCOCCUS FAECIUM [facility] IrvingBacterial urine qbousta1329-57-50 23:00:00* Test Item Value Reference Range Interpretation Comments Urine Culture (test code = 630-4) ENTEROCOCCUS FAECIUM [facility] IrvingBacterial urine stkqszn9181-51-81 23:00:00* Test Item Value Reference Range Interpretation Comments Urine Culture (test code = 630-4) ENTEROCOCCUS FAECIUM [facility] IrvingUrine Ipdtyrk9335-38-50 07:20:00* Test Item Value Reference Range Interpretation Comments Urine Culture (test code = 630-4) No Result Data Provided [facility] Zdezaus0364-09-11 07:20:00* Test Item Value Reference Range Interpretation Comments Urine Culture (test code = 630-4) No Result Data Provided [facility] Ahwbmrq2466-75-10 07:20:00* Test Item Value Reference Range Interpretation Comments Urine Culture (test code = 630-4) No Result Data Provided [facility] FAT3894-87-57 12:57:00* Test Item Value Reference Range Interpretation Comments Urine WBC (test code = 5821-4) >50 0-5 H [facility] MGD4838-59-88 12:57:00* Test Item Value Reference Range Interpretation Comments Urine RBC (test code = 60878-1) >50 0-5 H [facility] Kcuibbal1707-33-25 12:57:00* Test Item Value Reference Range Interpretation Comments Urine Bacteria (test code = 31266-4) MANY NONE H [facility] Epithelial Zfyqr1832-95-46 12:57:00 * Test Item Value Reference Range Interpretation Comments Urine Epithelial Cells (test code = 85890-0) MANY NONE [facility] Amorphous Cijmoocg8692-47-82 12:57:00* Test Item Value Reference Range Interpretation Comments Urine Amorphous Sediment (test code = 8246-1) FEW FEW [facility] Knvwx9098-91-71 12:57:00* Test Item Value Reference Range Interpretation Comments Urine Yeast (test code = 86170-8) MANY NONE H [facility] Amorphous Cuqicxnh3932-59-90 12:57:00* Test Item Value Reference Range Interpretation Comments Urine Amorphous Sediment (test code = 8246-1) FEW FEW [facility] Ngljq6922-11-76 12:57:00* Test Item Value Reference Range Interpretation Comments Urine Yeast (test code = 32744-4) MANY NONE H [facility] Amorphous Gnqyrfff3433-31-57 12:57:00* Test Item Value Reference Range Interpretation Comments Urine Amorphous Sediment (test code = 8246-1) FEW FEW [facility] Zcdet0994-34-00 12:57:00* Test Item Value Reference Range Interpretation Comments Urine Yeast (test code = 08639-6) MANY NONE H [facility] Amorphous Wazfwmdv5686-59-71 12:57:00* Test Item Value Reference Range Interpretation Comments Urine Amorphous Sediment (test code = 8246-1) FEW FEW [facility] Kldpp9611-18-12 12:57:00* Test Item Value Reference Range Interpretation Comments Urine Yeast (test code = 52397-0) MANY NONE H [facility] Kixpg3831-85-94 12:48:00* Test Item Value Reference Range Interpretation Comments Urine Color (test code = 5778-6) YELLOW YELLOW [facility] Cutnico8126-28-74 12:48:00* Test Item Value Reference Range Interpretation Comments Urine Clarity (test code = 89410-1) CLOUDY CLEAR H [facility] Specific Ujbzopz7723-76-60 12:48:00 * Test Item Value Reference Range Interpretation Comments Urine Specific [place] (test code = 5811-5) 1.010 1.010-1.02 5 [facility] cC8639-17-49 12:48:00* Test Item Value Reference Range Interpretation Comments Urine pH (test code = 11810-2) 7 5-7 [facility] IrvingU[facility] Leukocyte Bwsuwjdj8576-98-73 12:48:00* Test Item Value Reference Range Interpretation Comments Urine Leukocyte Esterase (test code = 98925-6) LARGE NEGATIV E [facility] Hasnwvx3731-89-58 12:48:00* Test Item Value Reference Range Interpretation Comments Urine Nitrite (test code = 78073-9) NEGATIVE NEGATIVE [facility] Fvrnvij7801-06-65 12:48:00* Test Item Value Reference Range Interpretation Comments Urine Protein (test code = 44628-5) 2+ NEGATIVE H [facility] Glucose (UA)2018-12-14 12:48:00* Test Item Value Reference Range Interpretation Comments Urine Glucose (UA) (test code = 04353-5) 1+ NEGATIVE H [facility] IrvingUrine Lnboqtw5316-20-65 12:48:00* Test Item Value Reference Range Interpretation Comments Urine Ketones (test code = 32335-2) NEGATIVE NEGATIVE [facility] IrvingUrine Vulezvaywgwe8379-12-95 12:48:00* Test Item Value Reference Range Interpretation Comments Urine Urobilinogen (test code = 54687-4) 0.2 0.2-1 [facility] IrvingU[facility] Mkcdbvtiw0501-31-42 12:48:00* Test Item Value Reference Range Interpretation Comments Urine Bilirubin (test code = 1977-8) NEGATIVE NEGATIVE [facility] IrvingU[facility] Tkkou6915-18-37 12:48:00* Test Item Value Reference Range Interpretation Comments Urine Blood (test code = 65406-3) 3+ NEGATIVE [facility] IrvingAmorphous sediment detection in urine sediment by light qdnkqrizjy0940-81-89 11:33:00* Test Item Value Reference Range Interpretation Comments Urine Amorphous Sediment (test code = 8246-1) FEW FEW [facility] IrvingYeast detection in urine sediment by light ntylxscgaf9934-78-77 11:33:00* Test Item Value Reference Range Interpretation Comments Urine Yeast (test code = 14053-6) MANY NONE [facility] IrvingBacterial urine uehragz6157-56-71 11:33:00* Test Item Value Reference Range Interpretation Comments Urine Culture (test code = 630-4) ENTEROCOCCUS FAECIUM [facility] IrvingAmorphous sediment detection in urine sediment by light hqhjapdtpx0698-19-58 11:33:00* Test Item Value Reference Range Interpretation Comments Urine Amorphous Sediment (test code = 8246-1) FEW FEW [facility] IrvingYeast detection in urine sediment by light aqwdyxxfkk7803-11-24 11:33:00* Test Item Value Reference Range Interpretation Comments Urine Yeast (test code = 72443-4) MANY NONE [facility] IrvingBacterial urine oanwbld0765-60-85 11:33:00* Test Item Value Reference Range Interpretation Comments Urine Culture (test code = 630-4) ENTEROCOCCUS FAECIUM [facility] IrvingNEPHRO/URET W IMG/NIV-HJFPVTON6569-26-24 14:16:00 [address] [address] Patient Name: WESLY HUTCHINSON MR #: [id number] : 1960 Age/Sex: 58/F Req #: [id number] [facility] Physician: Ordered by: JARET ESPINOSA MD Report #: [id number] Location: DX Room/Bed: Procedure: I R/NEPHRO/URET W IMG/INJ-EXISTING Exam Date: Exam [...] intervals. PROCEDURE SUMMARY - Target organ: Right augustine kidney - Antegrade nephrostogram(s) via the existing [...] images and agree with the report as wr itten. Signed by: Deja Dawson MD on 12/02/2018 2:21 PM Dict ated By: DEJA DAWSON MD 142 Transcribed By: DEYANIRA on 12/02/18 142 COPY TO: JARET ESPINOSA MD [facility]2018-10-01 07:49:00 [facility] [address] [address] Patient Name: WESLY HUTCHINSON MR #: [id number] : 1960 Age/Sex: 57/F Req #: [id number] Adm Physician: Ordered by: JARET ESPINOSA MD Report #: [id number] Location: OR Room/Bed: Procedure: [id number] D X/ABDOMEN-1VIEW (KUB) Exam Date: 10/01/18 Exam Time: 724 REPORT STATUS: Signed E xam: Abdominal film [...] 7:56 AM Dictated By: JULIÁN NAPOLES MD 0756 Tr anscribed By: DEYANIRA on 10/01/18 0756 COPY TO: JARET ESPINOSA MD Bedside Csdbohw2927-03-75 19:41:00* Test Item Value Reference Range Interpretation Comments Bedside Glucose (test code = 39467-7) 184 70-120 H Meter ID: [id number] [facility] Glucose 2018-09-12 19:41:00* Test Item Value Reference Range Interpretation Comments Bedside Glucose (test code = 68686-5) 184 70-120 H Meter ID: [id number] [facility] Glucose 2018-09-12 19:41:00* Test Item Value Reference Range Interpretation Comments Bedside Glucose (test code = 72383-8) 184 70-120 H Meter ID: [id number] [facility] Glucose 2018-09-12 19:41:00* Test Item Value Reference Range Interpretation Comments Bedside Glucose (test code = 06469-9) 184 70-120 H Meter ID: [id number] [facility] Glucose 2018-09-12 19:41:00* Test Item Value Reference Range Interpretation Comments Bedside Glucose (test code = 55721-9) 184 70-120 H Meter ID: [id number] Methodist HospitalThyroid Stimulating Hormone (TSH)2018-09-12 07:33:00* Test Item Value Reference Range Interpretation Comments Thyroid Stimulating Hormone (TSH) (test code = 14327-9) 2.374 0.350-4.940 [facility] IrvingThyroid Stimulating Hormone (TSH) 2018-09-12 07:33:00* Test Item Value Reference Range Interpretation Comments Thyroid Stimulating Hormone (TSH) (test code = 73440-2) 2.374 0.350-4.940 [facility] IrvingThyroid Stimulating Hormone (TSH) 2018-09-12 07:33:00* Test Item Value Reference Range Interpretation Comments Thyroid Stimulating Hormone (TSH) (test code = 32592-8) 2.374 0.350-4.940 [facility] IrvingThyroid Stimulating Hormone (TSH) 2018-09-12 07:33:00* Test Item Value Reference Range Interpretation Comments Thyroid Stimulating Hormone (TSH) (test code = 63795-7) 2.374 0.350-4.940 [facility] (TSH) 2018-09-12 07:33:00* Test Item Value Reference Range Interpretation Comments Thyroid Stimulating Hormone (TSH) (test code = 87434-0) 2.374 0.350-4.940 [facility] IrvingThyroid Stimulating Hormone (TSH) 2018-09-12 07:33:00* Test Item Value Reference Range Interpretation Comments Thyroid Stimulating Hormone (TSH) (test code = 01044-7) 2.374 0.350-4.940 [facility] IrvingThyroid Stimulating Hormone (TSH) 2018-09-12 07:33:00* Test Item Value Reference Range Interpretation Comments Thyroid Stimulating Hormone (TSH) (test code = 62527-0) 2.374 0.350-4.940 [facility] IrvingHemoglobin A1c Ftgzgme9274-69-04 07:21:00 * Test Item Value Reference Range Interpretation Comments Hemoglobin A1c Percent (test code = Hemoglobin A1c Percent) 6.7 4.0-7.0 [facility] IrvingHemoglobin A1c Pvlsvnl4460-02-61 07:21:00 * Test Item Value Reference Range Interpretation Comments Hemoglobin A1c Percent (test code = Hemoglobin A1c Percent) 6.7 4.0-7.0 [facility] IrvingHemoglobin A1c Khbymnt5361-50-68 07:21:00 * Test Item Value Reference Range Interpretation Comments Hemoglobin A1c Percent (test code = Hemoglobin A1c Percent) 6.7 4.0-7.0 [facility] IrvingHemoglobin A1c Bvegzfd5234-21-14 07:21:00 * Test Item Value Reference Range Interpretation Comments Hemoglobin A1c Percent (test code = Hemoglobin A1c Percent) 6.7 4.0-7.0 [facility] IrvingHemoglobin A1c Cxogkrk7855-44-50 07:21:00 * Test Item Value Reference Range Interpretation Comments Hemoglobin A1c Percent (test code = Hemoglobin A1c Percent) 6.7 4.0-7.0 [facility] IrvingHemoglobin A1c Uiexjyt5111-96-56 07:21:00 * Test Item Value Reference Range Interpretation Comments Hemoglobin A1c Percent (test code = Hemoglobin A1c Percent) 6.7 4.0-7.0 [facility] IrvingHemoglobin A1c Ltrrzgk9257-24-13 07:21:00 * Test Item Value Reference Range Interpretation Comments Hemoglobin A1c Percent (test code = Hemoglobin A1c Percent) 6.7 4.0-7.0 [facility] Qnokm4965-00-49 06:29:00* Test Item Value Reference Range Interpretation Comments Sodium Level (test code = 2951-2) 140 136-145 [facility] IrvingPotassium Fgrof0693-76-54 06:29:00* Test Item Value Reference Range Interpretation Comments Potassium Level (test code = 2823-3) 3.1 3.5-5.1 L [facility] IrvingChloride Laxlj9793-11-88 06:29:00* Test Item Value Reference Range Interpretation Comments Chloride Level (test code = 2075-0) 106 98-107 [facility] IrvingCarbon Dioxide Lyshx9177-53-98 06:29:00* Test Item Value Reference Range Interpretation Comments Carbon Dioxide Level (test code = 2028-9) 23 22-29 [facility] IrvingAnion Pua8286-51-49 06:29:00* Test Item Value Reference Range Interpretation Comments Anion Gap (test code = 96299-8) 14.1 8-16 [facility] IrvingBlood Urea Dlwcalzr6332-29-44 06:29:00* Test Item Value Reference Range Interpretation Comments Blood Urea Nitrogen (test code = 3094-0) 11 7-26 [facility] IrvingCreatinine2019-08-04 06:29:00* Test Item Value Reference Range Interpretation Comments Creatinine (test code = 2160-0) 1.14 0.57-1.11 H [facility] IrvingBUN/Creatinine Ftfai8537-69-36 06:29:00* Test Item Value Reference Range Interpretation Comments BUN/Creatinine Ratio (test code = 3097-3) 10 6-25 [facility] IrvingEstimat Glomerular Filtration Rate 2018-09-12 06:29:00* Test Item Value Reference Range Interpretation Comments Estimat Glomerular Filtration Rate (test code = 317825536) 49 >60 L Ranges were taken from the National Kidney Disease Education Program and the [facility] Kid[facility] Foundation literature.Reference ranges:60 or greater: Sgvrhd43-04 ( for 3 consecutive months): Chronic kidney disease 15 or less: Kidney failureB[facility] & [facility] – IrvingGlucose Saann4491-43-82 06:29:00* Test Item Value Reference Range Interpretation Comments Glucose Level (test code = DPY4466) 172 74-118 H [facility] IrvingCalcium Celqw1807-84-80 06:29:00* Test Item Value Reference Range Interpretation Comments Calcium Level (test code = 61473-6) 9.2 8.4-10.2 [facility]odium Qsiiu5960-07-79 06:29:00* Test Item Value Reference Range Interpretation Comments Sodium Level (test code = 2951-2) 140 136-145 [facility] IrvingPotassium Cmhjq8139-51-19 06:29:00* Test Item Value Reference Range Interpretation Comments Potassium Level (test code = 2823-3) 3.1 3.5-5.1 L [facility] IrvingChloride Fipuq2590-92-78 06:29:00* Test Item Value Reference Range Interpretation Comments Chloride Level (test code = 2075-0) 106 98-107 [facility] IrvingCarbon Dioxide Ldscd7049-69-81 06:29:00* Test Item Value Reference Range Interpretation Comments Carbon Dioxide Level (test code = 2028-9) 23 22-29 [facility] IrvingAnion Ham0709-90-09 06:29:00* Test Item Value Reference Range Interpretation Comments Anion Gap (test code = 30070-5) 14.1 8-16 [facility] IrvingBlood Urea Twzdtexg1765-13-75 06:29:00* Test Item Value Reference Range Interpretation Comments Blood Urea Nitrogen (test code = 3094-0) 11 7-26 [facility] IrvingCreatinine2019-08-04 06:29:00* Test Item Value Reference Range Interpretation Comments Creatinine (test code = 2160-0) 1.14 0.57-1.11 H [facility] IrvingBUN/Creatinine Jwuua5544-03-01 06:29:00* Test Item Value Reference Range Interpretation Comments BUN/Creatinine Ratio (test code = 3097-3) 10 6-25 [facility] IrvingEstimat Glomerular Filtration Rate 2018-09-12 06:29:00* Test Item Value Reference Range Interpretation Comments Estimat Glomerular Filtration Rate (test code = 251007895) 49 >60 L Ranges were taken from the National Kidney Disease Education Program and the [facility] literature.Reference ranges:60 or greater: Ptfnio36-16 ( for 3 consecutive months): Chronic kidney disease 15 or less: Kidney failureBaylor Scott & [facility] – IrvingGlucose Gjvav2482-70-01 06:29:00* Test Item Value Reference Range Interpretation Comments Glucose Level (test code = BPJ6650) 172 74-118 H [facility] IrvingCalcium Fiods3835-13-71 06:29:00* Test Item Value Reference Range Interpretation Comments Calcium Level (test code = 34740-9) 9.2 8.4-10.2 [facility]entonodium Slqwf9303-66-53 06:29:00* Test Item Value Reference Range Interpretation Comments Sodium Level (test code = 2951-2) 140 136-145 [facility] IrvingPotassium Ksfrr1376-20-40 06:29:00* Test Item Value Reference Range Interpretation Comments Potassium Level (test code = 2823-3) 3.1 3.5-5.1 L [facility] IrvingChloride Jjvik0193-02-56 06:29:00* Test Item Value Reference Range Interpretation Comments Chloride Level (test code = 2075-0) 106 98-107 [facility] IrvingCarbon Dioxide Qdbtj2622-50-32 06:29:00* Test Item Value Reference Range Interpretation Comments Carbon Dioxide Level (test code = 2028-9) 23 22-29 [facility] IrvingAnion Jig2983-04-06 06:29:00* Test Item Value Reference Range Interpretation Comments Anion Gap (test code = 22439-7) 14.1 8-16 [facility] IrvingBlood Urea Zsluyqqj8839-77-42 06:29:00* Test Item Value Reference Range Interpretation Comments Blood Urea Nitrogen (test code = 3094-0) 11 7-26 [facility] IrvingCreatinine2019-08-04 06:29:00* Test Item Value Reference Range Interpretation Comments Creatinine (test code = 2160-0) 1.14 0.57-1.11 H [facility] IrvingBUN/Creatinine Igaoy1904-13-81 06:29:00* Test Item Value Reference Range Interpretation Comments BUN/Creatinine Ratio (test code = 3097-3) 10 6-25 [facility] IrvingEstimat Glomerular Filtration Rate 2018-09-12 06:29:00* Test Item Value Reference Range Interpretation Comments Estimat Glomerular Filtration Rate (test code = 532000894) 49 >60 L Ranges were taken from the National Kidney Disease Education Program and the [facility] Kidney Foundation literature.Reference ranges:60 or greater: Atlbzg62-34 ( for 3 consecutive months): Chronic kidney disease 15 or less: Kidney failureBaylor Scott & White Medical Center – IrvingGlucose Huysv4936-58-85 06:29:00* Test Item Value Reference Range Interpretation Comments Glucose Level (test code = LXP8003) 172 74-118 H [facility] IrvingCalcium Guihy6286-73-00 06:29:00* Test Item Value Reference Range Interpretation Comments Calcium Level (test code = 28084-0) 9.2 8.4-10.2 [facility]entonodium Ppias3228-64-17 06:29:00* Test Item Value Reference Range Interpretation Comments Sodium Level (test code = 2951-2) 140 136-145 [facility] IrvingPotassium Dgaco4527-18-86 06:29:00* Test Item Value Reference Range Interpretation Comments Potassium Level (test code = 2823-3) 3.1 3.5-5.1 L [facility] IrvingChloride Qbyki5131-51-17 06:29:00* Test Item Value Reference Range Interpretation Comments Chloride Level (test code = 2075-0) 106 98-107 [facility] IrvingCarbon Dioxide Akqnz4651-88-42 06:29:00* Test Item Value Reference Range Interpretation Comments Carbon Dioxide Level (test code = 2028-9) 23 22-29 [facility] IrvingAnion Cck0834-80-28 06:29:00* Test Item Value Reference Range Interpretation Comments Anion Gap (test code = 65815-2) 14.1 8-16 [facility] IrvingBlood Urea Rykjrcvv8226-06-57 06:29:00* Test Item Value Reference Range Interpretation Comments Blood Urea Nitrogen (test code = 3094-0) 11 7-26 [facility] IrvingCreatinine2019-08-04 06:29:00* Test Item Value Reference Range Interpretation Comments Creatinine (test code = 2160-0) 1.14 0.57-1.11 H [facility] IrvingBUN/Creatinine Kgxug7117-14-40 06:29:00* Test Item Value Reference Range Interpretation Comments BUN/Creatinine Ratio (test code = 3097-3) 10 6- [facility] IrvingEstimat Glomerular Filtration Rate 2018-09-12 06:29:00* Test Item Value Reference Range Interpretation Comments Estimat Glomerular Filtration Rate (test code = 741736109) 49 >60 L Ranges were taken from the National Kidney Disease Education Program and the [facility] Kidney Foundation literature.Reference ranges:60 or greater: Bwmumr60-05 ( for 3 consecutive months): Chronic kidney disease 15 or less: Kidney failureBaylor Scott & White Medical Center – IrvingGlucose Sxryq8952-93-68 06:29:00* Test Item Value Reference Range Interpretation Comments Glucose Level (test code = CFG2303) 172 74-118 H [facility] IrvingCalcium Dccyd8852-10-97 06:29:00* Test Item Value Reference Range Interpretation Comments Calcium Level (test code = 76652-9) 9.2 8.4-10.2 [facility]entonodium Ehair6377-44-76 06:29:00* Test Item Value Reference Range Interpretation Comments Sodium Level (test code = 2951-2) 140 136-145 [facility] IrvingPotassium Bnfcu2907-71-55 06:29:00* Test Item Value Reference Range Interpretation Comments Potassium Level (test code = 2823-3) 3.1 3.5-5.1 L [facility] IrvingChloride Cfkvy9190-46-40 06:29:00* Test Item Value Reference Range Interpretation Comments Chloride Level (test code = 2075-0) 106 98-107 [facility] IrvingCarbon Dioxide Lhmcc2527-67-97 06:29:00* Test Item Value Reference Range Interpretation Comments Carbon Dioxide Level (test code = 2028-9) 23 22-29 [facility] IrvingAnion Dev7874-80-96 06:29:00* Test Item Value Reference Range Interpretation Comments Anion Gap (test code = 01372-5) 14.1 8-16 [facility] IrvingBlood Urea Zagkmqdq9936-68-07 06:29:00* Test Item Value Reference Range Interpretation Comments Blood Urea Nitrogen (test code = 3094-0) 11 7-26 [facility] IrvingCreatinine2019-08-04 06:29:00* Test Item Value Reference Range Interpretation Comments Creatinine (test code = 2160-0) 1.14 0.57-1.11 H [facility] IrvingBUN/Creatinine Ieetg5563-37-58 06:29:00* Test Item Value Reference Range Interpretation Comments BUN/Creatinine Ratio (test code = 3097-3) 10 6- [facility] IrvingEstimat Glomerular Filtration Rate 2018-09-12 06:29:00* Test Item Value Reference Range Interpretation Comments Estimat Glomerular Filtration Rate (test code = 507694889) 49 >60 L Ranges were taken from the National Kidney Disease Education Program and the [facility] [facility] Kid[facility] Foundation literature.Reference ranges:60 or greater: Empxrr21-28 ( for 3 consecutive months): Chronic kidney disease 15 or less: Kidney failureBaylor Scott & [facility] Center – IrvingGlucose Xqrqn0747-84-58 06:29:00* Test Item Value Reference Range Interpretation Comments Glucose Level (test code = GWM6867) 172 74-118 H [facility] IrvingCalcium Xdovt2616-11-42 06:29:00* Test Item Value Reference Range Interpretation Comments Calcium Level (test code = 63744-1) 9.2 8.4-10.2 [facility] IrvingWhite Blood Eqyzx2501-98-30 06:26:00* Test Item Value Reference Range Interpretation Comments White Blood Count (test code = 6690-2) 9.37 4.8-10.8 [facility] IrvingRed Blood Lhgbm7551-60-18 06:26:00* Test Item Value Reference Range Interpretation Comments Red Blood Count (test code = 789-8) 3.74 3.6-5.1 [facility] IrvingHemoglobin2019-08-04 06:26:00* Test Item Value Reference Range Interpretation Comments Hemoglobin (test code = 62357-6) 9.3 12.0-16.0 L [facility] IrvingHematocrit2019-08-04 06:26:00* Test Item Value Reference Range Interpretation Comments Hematocrit (test code = 4544-3) 30.4 34.2-44.1 L [facility] IrvingMean Corpuscular Guysak4948-50-26 06:26:00* Test Item Value Reference Range Interpretation Comments Mean Corpuscular Volume (test code = 787-2) 81.3 81-99 [facility] IrvingMean Corpuscular Bawirvktxg2759-24-61 06:26:00* Test Item Value Reference Range Interpretation Comments Mean Corpuscular Hemoglobin (test code = 785-6) 24.9 28-32 L [facility] IrvingMean Corpuscular Hemoglobin Concent 2018-09-12 06:26:00* Test Item Value Reference Range Interpretation Comments Mean Corpuscular Hemoglobin Concent (test code = 786-4) 30.6 31-35 L [facility] IrvingRed Cell Distribution Itefo3972-73-02 06:26:00* Test Item Value Reference Range Interpretation Comments Red Cell Distribution Width (test code = 59889-4) 15.9 11.7 -14.4 H [facility] IrvingPlatelet Qnqgf6172-24-81 06:26:00* Test Item Value Reference Range Interpretation Comments Platelet Count (test code = 777-3) 279 140-360 [facility] IrvingNeutrophils (%) (Auto)2018-09-12 06:26:00 * Test Item Value Reference Range Interpretation Comments Neutrophils (%) (Auto) (test code = 20100-1) 73.2 38.7-80.0 [facility] IrvingLymphocytes (%) (Auto)2018-09-12 06:26:00 * Test Item Value Reference Range Interpretation Comments Lymphocytes (%) (Auto) (test code = 736-9) 19.2 18.0-39.1 [facility] IrvingMonocytes (%) (Auto)2018-09-12 06:26:00* Test Item Value Reference Range Interpretation Comments Monocytes (%) (Auto) (test code = 5905-5) 5.2 4.4-11.3 [facility] IrvingEosinophils (%) (Auto)2018-09-12 06:26:00 * Test Item Value Reference Range Interpretation Comments Eosinophils (%) (Auto) (test code = 713-8) 1.8 0.0-6.0 [facility] IrvingBasophils (%) (Auto)2018-09-12 06:26:00* Test Item Value Reference Range Interpretation Comments Basophils (%) (Auto) (test code = 706-2) 0.3 0.0-1.0 [facility] IrvingIM GRANULOCYTES %2018-09-12 06:26:00* Test Item Value Reference Range Interpretation Comments IM GRANULOCYTES % (test code = IM GRANULOCYTES %) 0.3 0.0- 1.0 [facility] IrvingNeutrophils # (Auto)2018-09-12 06:26:00* Test Item Value Reference Range Interpretation Comments Neutrophils # (Auto) (test code = 751-8) 6.9 2.1-6.9 [facility] IrvingLymphocytes # (Auto)2018-09-12 06:26:00* Test Item Value Reference Range Interpretation Comments Lymphocytes # (Auto) (test code = 72618-1) 1.8 1.0-3.2 [facility] IrvingMonocytes # (Auto)2018-09-12 06:26:00* Test Item Value Reference Range Interpretation Comments Monocytes # (Auto) (test code = 742-7) 0.5 0.2-0.8 [facility] IrvingEosinophils # (Auto)2018-09-12 06:26:00* Test Item Value Reference Range Interpretation Comments Eosinophils # (Auto) (test code = 711-2) 0.2 0.0-0.4 [facility] IrvingBasophils # (Auto)2018-09-12 06:26:00* Test Item Value Reference Range Interpretation Comments Basophils # (Auto) (test code = 704-7) 0.0 0.0-0.1 [facility] IrvingAbsolute Immature Granulocyte (auto 2018-09-12 06:26:00* Test Item Value Reference Range Interpretation Comments Absolute Immature Granulocyte (auto (irena t code = Absolute Immature Granulocyte (auto) 0.03 0-0.1 [facility] IrvingWhite Blood Hbumo0669-56-85 06:26:00* Test Item Value Reference Range Interpretation Comments White Blood Count (test code = 6690-2) 9.37 4.8-10.8 [facility] IrvingRed Blood Lrftu3704-92-61 06:26:00* Test Item Value Reference Range Interpretation Comments Red Blood Count (test code = 789-8) 3.74 3.6-5.1 [facility] IrvingHemoglobin2019-08-04 06:26:00* Test Item Value Reference Range Interpretation Comments Hemoglobin (test code = 93402-3) 9.3 12.0-16.0 L [facility] IrvingHematocrit2019-08-04 06:26:00* Test Item Value Reference Range Interpretation Comments Hematocrit (test code = 4544-3) 30.4 34.2-44.1 L [facility] IrvingMean Corpuscular Hcgwmg9319-69-34 06:26:00* Test Item Value Reference Range Interpretation Comments Mean Corpuscular Volume (test code = 787-2) 81.3 81-99 [facility] IrvingMean Corpuscular Xkqlwxguzz5717-21-99 06:26:00* Test Item Value Reference Range Interpretation Comments Mean Corpuscular Hemoglobin (test code = 785-6) 24.9 28-32 L [facility] IrvingMean Corpuscular Hemoglobin Concent 2018-09-12 06:26:00* Test Item Value Reference Range Interpretation Comments Mean Corpuscular Hemoglobin Concent (test code = 786-4) 30.6 31-35 L [facility] IrvingRed Cell Distribution Pyuzn5006-20-86 06:26:00* Test Item Value Reference Range Interpretation Comments Red Cell Distribution Width (test code = 81065-1) 15.9 11.7 -14.4 H [facility] IrvingPlatelet Gvfqa6116-22-06 06:26:00* Test Item Value Reference Range Interpretation Comments Platelet Count (test code = 777-3) 279 140-360 [facility] IrvingNeutrophils (%) (Auto)2018-09-12 06:26:00 * Test Item Value Reference Range Interpretation Comments Neutrophils (%) (Auto) (test code = 32544-9) 73.2 38.7-80.0 [facility] IrvingLymphocytes (%) (Auto)2018-09-12 06:26:00 * Test Item Value Reference Range Interpretation Comments Lymphocytes (%) (Auto) (test code = 736-9) 19.2 18.0-39.1 [facility] IrvingMonocytes (%) (Auto)2018-09-12 06:26:00* Test Item Value Reference Range Interpretation Comments Monocytes (%) (Auto) (test code = 5905-5) 5.2 4.4-11.3 [facility] IrvingEosinophils (%) (Auto)2018-09-12 06:26:00 * Test Item Value Reference Range Interpretation Comments Eosinophils (%) (Auto) (test code = 713-8) 1.8 0.0-6.0 [facility] IrvingBasophils (%) (Auto)2018-09-12 06:26:00* Test Item Value Reference Range Interpretation Comments Basophils (%) (Auto) (test code = 706-2) 0.3 0.0-1.0 [facility] IrvingIM GRANULOCYTES %2018-09-12 06:26:00* Test Item Value Reference Range Interpretation Comments IM GRANULOCYTES % (test code = IM GRANULOCYTES %) 0.3 0.0- 1.0 [facility] IrvingNeutrophils # (Auto)2018-09-12 06:26:00* Test Item Value Reference Range Interpretation Comments Neutrophils # (Auto) (test code = 751-8) 6.9 2.1-6.9 [facility] IrvingLymphocytes # (Auto)2018-09-12 06:26:00* Test Item Value Reference Range Interpretation Comments Lymphocytes # (Auto) (test code = 74491-8) 1.8 1.0-3.2 [facility] IrvingMonocytes # (Auto)2018-09-12 06:26:00* Test Item Value Reference Range Interpretation Comments Monocytes # (Auto) (test code = 742-7) 0.5 0.2-0.8 [facility] IrvingEosinophils # (Auto)2018-09-12 06:26:00* Test Item Value Reference Range Interpretation Comments Eosinophils # (Auto) (test code = 711-2) 0.2 0.0-0.4 [facility] IrvingBasophils # (Auto)2018-09-12 06:26:00* Test Item Value Reference Range Interpretation Comments Basophils # (Auto) (test code = 704-7) 0.0 0.0-0.1 [facility] IrvingAbsolute Immature Granulocyte (auto 2018-09-12 06:26:00* Test Item Value Reference Range Interpretation Comments Absolute Immature Granulocyte (auto (irena t code = Absolute Immature Granulocyte (auto) 0.03 0-0.1 [facility] IrvingWhite Blood Vwghy8307-80-77 06:26:00* Test Item Value Reference Range Interpretation Comments White Blood Count (test code = 6690-2) 9.37 4.8-10.8 [facility] IrvingRed Blood Ddxhp8347-44-19 06:26:00* Test Item Value Reference Range Interpretation Comments Red Blood Count (test code = 789-8) 3.74 3.6-5.1 [facility] IrvingHemoglobin2019-08-04 06:26:00* Test Item Value Reference Range Interpretation Comments Hemoglobin (test code = 86984-5) 9.3 12.0-16.0 L [facility] IrvingHematocrit2019-08-04 06:26:00* Test Item Value Reference Range Interpretation Comments Hematocrit (test code = 4544-3) 30.4 34.2-44.1 L [facility] IrvingMean Corpuscular Insqma2667-40-26 06:26:00* Test Item Value Reference Range Interpretation Comments Mean Corpuscular Volume (test code = 787-2) 81.3 81-99 [facility] IrvingMean Corpuscular Xokhekycgq4052-63-01 06:26:00* Test Item Value Reference Range Interpretation Comments Mean Corpuscular Hemoglobin (test code = 785-6) 24.9 28-[address] [facility] Hem[facility] Concent 2018-09-12 06:26:00* Test Item Value Reference Range Interpretation Comments Mean Corpuscular Hemoglobin Concent (test code = 786-4) 30.6 31-35 L [facility] IrvingRed Cell Distribution Xpovl9483-61-49 06:26:00* Test Item Value Reference Range Interpretation Comments Red Cell Distribution Width (test code = 28950-6) 15.9 11.7 -14.4 H [facility] IrvingPlatelet Sswml6604-36-42 06:26:00* Test Item Value Reference Range Interpretation Comments Platelet Count (test code = 777-3) 279 140-360 [facility] IrvingNeutrophils (%) (Auto)2018-09-12 06:26:00 * Test Item Value Reference Range Interpretation Comments Neutrophils (%) (Auto) (test code = 32895-4) 73.2 38.7-80.0 [facility] IrvingLymphocytes (%) (Auto)2018-09-12 06:26:00 * Test Item Value Reference Range Interpretation Comments Lymphocytes (%) (Auto) (test code = 736-9) 19.2 18.0-39.1 [facility] IrvingMonocytes (%) (Auto)2018-09-12 06:26:00* Test Item Value Reference Range Interpretation Comments Monocytes (%) (Auto) (test code = 5905-5) 5.2 4.4-11.3 [facility] IrvingEosinophils (%) (Auto)2018-09-12 06:26:00 * Test Item Value Reference Range Interpretation Comments Eosinophils (%) (Auto) (test code = 713-8) 1.8 0.0-6.0 [facility] IrvingBasophils (%) (Auto)2018-09-12 06:26:00* Test Item Value Reference Range Interpretation Comments Basophils (%) (Auto) (test code = 706-2) 0.3 0.0-1.0 [facility] IrvingIM GRANULOCYTES %2018-09-12 06:26:00* Test Item Value Reference Range Interpretation Comments IM GRANULOCYTES % (test code = IM GRANULOCYTES %) 0.3 0.0- 1.0 [facility] IrvingNeutrophils # (Auto)2018-09-12 06:26:00* Test Item Value Reference Range Interpretation Comments Neutrophils # (Auto) (test code = 751-8) 6.9 2.1-6.9 [facility] IrvingLymphocytes # (Auto)2018-09-12 06:26:00* Test Item Value Reference Range Interpretation Comments Lymphocytes # (Auto) (test code = 47788-1) 1.8 1.0-3.2 [facility] IrvingMonocytes # (Auto)2018-09-12 06:26:00* Test Item Value Reference Range Interpretation Comments Monocytes # (Auto) (test code = 742-7) 0.5 0.2-0.8 [facility] IrvingEosinophils # (Auto)2018-09-12 06:26:00* Test Item Value Reference Range Interpretation Comments Eosinophils # (Auto) (test code = 711-2) 0.2 0.0-0.4 [facility] IrvingBasophils # (Auto)2018-09-12 06:26:00* Test Item Value Reference Range Interpretation Comments Basophils # (Auto) (test code = 704-7) 0.0 0.0-0.[address] [facility] Granul[facility] (auto 2018-09-12 06:26:00* Test Item Value Reference Range Interpretation Comments Absolute Immature Granulocyte (auto (irena t code = Absolute Immature Granulocyte (auto) 0.03 0-0.1 [facility] IrvingWhite Blood Daais9966-79-94 06:26:00* Test Item Value Reference Range Interpretation Comments White Blood Count (test code = 6690-2) 9.37 4.8-10.8 [facility] IrvingRed Blood Cihyc3294-72-08 06:26:00* Test Item Value Reference Range Interpretation Comments Red Blood Count (test code = 789-8) 3.74 3.6-5.1 [facility] IrvingHemoglobin2019-08-04 06:26:00* Test Item Value Reference Range Interpretation Comments Hemoglobin (test code = 31685-9) 9.3 12.0-16.0 L [facility] IrvingHematocrit2019-08-04 06:26:00* Test Item Value Reference Range Interpretation Comments Hematocrit (test code = 4544-3) 30.4 34.2-44.1 L [facility] IrvingMean Corpuscular Hgjfoi5761-15-13 06:26:00* Test Item Value Reference Range Interpretation Comments Mean Corpuscular Volume (test code = 787-2) 81.3 81-99 [facility] IrvingMean Corpuscular Esgpcaftvy3511-25-06 06:26:00* Test Item Value Reference Range Interpretation Comments Mean Corpuscular Hemoglobin (test code = 785-6) 24.9 28-32 L [facility] IrvingMean Corpuscular Hemoglobin Concent 2018-09-12 06:26:00* Test Item Value Reference Range Interpretation Comments Mean Corpuscular Hemoglobin Concent (test code = 786-4) 30.6 31-35 L [facility] IrvingRed Cell Distribution Tktex4540-10-00 06:26:00* Test Item Value Reference Range Interpretation Comments Red Cell Distribution Width (test code = 49304-7) 15.9 11.7 -14.4 H [facility] IrvingPlatelet Flnkt3186-74-99 06:26:00* Test Item Value Reference Range Interpretation Comments Platelet Count (test code = 777-3) 279 140-360 [facility] IrvingNeutrophils (%) (Auto)2018-09-12 06:26:00 * Test Item Value Reference Range Interpretation Comments Neutrophils (%) (Auto) (test code = 39494-5) 73.2 38.7-80.0 [facility] IrvingLymphocytes (%) (Auto)2018-09-12 06:26:00 * Test Item Value Reference Range Interpretation Comments Lymphocytes (%) (Auto) (test code = 736-9) 19.2 18.0-39.1 [facility] IrvingMonocytes (%) (Auto)2018-09-12 06:26:00* Test Item Value Reference Range Interpretation Comments Monocytes (%) (Auto) (test code = 5905-5) 5.2 4.4-11.3 [facility] IrvingEosinophils (%) (Auto)2018-09-12 06:26:00 * Test Item Value Reference Range Interpretation Comments Eosinophils (%) (Auto) (test code = 713-8) 1.8 0.0-6.0 [facility] IrvingBasophils (%) (Auto)2018-09-12 06:26:00* Test Item Value Reference Range Interpretation Comments Basophils (%) (Auto) (test code = 706-2) 0.3 0.0-1.0 [facility] IrvingIM GRANULOCYTES %2018-09-12 06:26:00* Test Item Value Reference Range Interpretation Comments IM GRANULOCYTES % (test code = IM GRANULOCYTES %) 0.3 0.0- 1.0 [facility] IrvingNeutrophils # (Auto)2018-09-12 06:26:00* Test Item Value Reference Range Interpretation Comments Neutrophils # (Auto) (test code = 751-8) 6.9 2.1-6.9 [facility] IrvingLymphocytes # (Auto)2018-09-12 06:26:00* Test Item Value Reference Range Interpretation Comments Lymphocytes # (Auto) (test code = 83617-7) 1.8 1.0-3.2 [facility] IrvingMonocytes # (Auto)2018-09-12 06:26:00* Test Item Value Reference Range Interpretation Comments Monocytes # (Auto) (test code = 742-7) 0.5 0.2-0.8 [facility] IrvingEosinophils # (Auto)2018-09-12 06:26:00* Test Item Value Reference Range Interpretation Comments Eosinophils # (Auto) (test code = 711-2) 0.2 0.0-0.4 [facility] IrvingBasophils # (Auto)2018-09-12 06:26:00* Test Item Value Reference Range Interpretation Comments Basophils # (Auto) (test code = 704-7) 0.0 0.0-0.1 [facility] IrvingAbsolute Immature Granulocyte (auto 2018-09-12 06:26:00* Test Item Value Reference Range Interpretation Comments Absolute Immature Granulocyte (auto (irena t code = Absolute Immature Granulocyte (auto) 0.03 0-0.1 [facility] IrvingWhite Blood Rikdo3836-53-13 06:26:00* Test Item Value Reference Range Interpretation Comments White Blood Count (test code = 6690-2) 9.37 4.8-10.8 [facility] IrvingRed Blood Vrfwa7160-69-60 06:26:00* Test Item Value Reference Range Interpretation Comments Red Blood Count (test code = 789-8) 3.74 3.6-5.1 [facility] IrvingHemoglobin2019-08-04 06:26:00* Test Item Value Reference Range Interpretation Comments Hemoglobin (test code = 93645-8) 9.3 12.0-16.0 L [facility] IrvingHematocrit2019-08-04 06:26:00* Test Item Value Reference Range Interpretation Comments Hematocrit (test code = 4544-3) 30.4 34.2-44.1 L [facility] IrvingMean Corpuscular Smtbwu5889-65-29 06:26:00* Test Item Value Reference Range Interpretation Comments Mean Corpuscular Volume (test code = 787-2) 81.3 81-99 [facility] IrvingMean Corpuscular Apfcgwdmwf8645-19-99 06:26:00* Test Item Value Reference Range Interpretation Comments Mean Corpuscular Hemoglobin (test code = 785-6) 24.9 28-32 L [facility] IrvingMean Corpuscular Hemoglobin Concent 2018-09-12 06:26:00* Test Item Value Reference Range Interpretation Comments Mean Corpuscular Hemoglobin Concent (test code = 786-4) 30.6 31-35 L [facility] IrvingRed Cell Distribution Jiqaw1195-67-39 06:26:00* Test Item Value Reference Range Interpretation Comments Red Cell Distribution Width (test code = 74209-7) 15.9 11.7 -14.4 H [facility] IrvingPlatelet Kmywk9948-64-14 06:26:00* Test Item Value Reference Range Interpretation Comments Platelet Count (test code = 777-3) 279 140-360 [facility] IrvingNeutrophils (%) (Auto)2018-09-12 06:26:00 * Test Item Value Reference Range Interpretation Comments Neutrophils (%) (Auto) (test code = 39947-1) 73.2 38.7-80.0 [facility] IrvingLymphocytes (%) (Auto)2018-09-12 06:26:00 * Test Item Value Reference Range Interpretation Comments Lymphocytes (%) (Auto) (test code = 736-9) 19.2 18.0-39.1 [facility] IrvingMonocytes (%) (Auto)2018-09-12 06:26:00* Test Item Value Reference Range Interpretation Comments Monocytes (%) (Auto) (test code = 5905-5) 5.2 4.4-11.3 [facility] IrvingEosinophils (%) (Auto)2018-09-12 06:26:00 * Test Item Value Reference Range Interpretation Comments Eosinophils (%) (Auto) (test code = 713-8) 1.8 0.0-6.0 [facility] IrvingBasophils (%) (Auto)2018-09-12 06:26:00* Test Item Value Reference Range Interpretation Comments Basophils (%) (Auto) (test code = 706-2) 0.3 0.0-1.0 [facility] IrvingIM GRANULOCYTES %2018-09-12 06:26:00* Test Item Value Reference Range Interpretation Comments IM GRANULOCYTES % (test code = IM GRANULOCYTES %) 0.3 0.0- 1.0 [facility] IrvingNeutrophils # (Auto)2018-09-12 06:26:00* Test Item Value Reference Range Interpretation Comments Neutrophils # (Auto) (test code = 751-8) 6.9 2.1-6.9 [facility] IrvingLymphocytes # (Auto)2018-09-12 06:26:00* Test Item Value Reference Range Interpretation Comments Lymphocytes # (Auto) (test code = 64320-0) 1.8 1.0-3.2 [facility] IrvingMonocytes # (Auto)2018-09-12 06:26:00* Test Item Value Reference Range Interpretation Comments Monocytes # (Auto) (test code = 742-7) 0.5 0.2-0.8 [facility] IrvingEosinophils # (Auto)2018-09-12 06:26:00* Test Item Value Reference Range Interpretation Comments Eosinophils # (Auto) (test code = 711-2) 0.2 0.0-0.4 [facility] IrvingBasophils # (Auto)2018-09-12 06:26:00* Test Item Value Reference Range Interpretation Comments Basophils # (Auto) (test code = 704-7) 0.0 0.0-0.1 [facility] IrvingAbsolute Immature Granulocyte (auto 2018-09-12 06:26:00* Test Item Value Reference Range Interpretation Comments Absolute Immature Granulocyte (auto (irena t code = Absolute Immature Granulocyte (auto) 0.03 0-0.1 [facility] Dentonerum or plasma thyrotropin measurement by detection limit <= 0.005 miu/l (units/volume)2018-09-12 05:15:00* Test Item Value Reference Range Interpretation Comments Thyroid Stimulating Hormone (TSH) (test code = 29679-2) 2.374 0.350-4.940 [facility] Gbabics3249-85-29 09:10:00* Test Item Value Reference Range Interpretation Comments Urine Culture (test code = 630-4) Organism: STAPHYLOCOCCUS AUREUS [facility] Yentoni6437-12-86 09:10:00* Test Item Value Reference Range Interpretation Comments Urine Culture (test code = 630-4) Organism: STAPHYLOCOCCUS AUREUS [facility] Lgzbpua3560-87-89 09:10:00* Test Item Value Reference Range Interpretation Comments Urine Culture (test code = 630-4) Organism: STAPHYLOCOCCUS AUREUS [facility] Rkidkmc1826-90-29 09:10:00* Test Item Value Reference Range Interpretation Comments Urine Culture (test code = 630-4) No Result Data Provided [facility] Vpxytmz8724-22-04 09:10:00* Test Item Value Reference Range Interpretation Comments Urine Culture (test code = 630-4) No Result Data Provided [facility] IrvingTotal Gddwzxufb6528-17-04 06:09:00* Test Item Value Reference Range Interpretation Comments Total Bilirubin (test code = 1975-2) 0.2 0.2-1.2 [facility] IrvingAspartate Amino Transf (AST/SGOT) 2018-09-10 06:09:00* Test Item Value Reference Range Interpretation Comments Aspartate Amino Transf (AST/SGOT) (test code = Aspartate Amino Transf (AST/SGOT)) 8 5-34 [facility] IrvingAlanine Aminotransferase (ALT/SGPT) 2018-09-10 06:09:00* Test Item Value Reference Range Interpretation Comments Alanine Aminotransferase (ALT/SGPT) (test code = 1742-6) 12 0-55 [facility] IrvingTotal Lcverkq2745-35-91 06:09:00* Test Item Value Reference Range Interpretation Comments Total Protein (test code = 2885-2) 7.5 6.5-8.1 [facility] IrvingAlbumin2019-08-02 06:09:00* Test Item Value Reference Range Interpretation Comments Albumin (test code = 1751-7) 2.9 3.5-5.0 L [facility] IrvingGlobulin2019-08-02 06:09:00* Test Item Value Reference Range Interpretation Comments Globulin (test code = 43620-6) 4.6 2.3-3.5 H [facility] IrvingAlbumin/Globulin Uhedd9047-42-82 06:09:00 * Test Item Value Reference Range Interpretation Comments Albumin/Globulin Ratio (test code = 1759-0) 0.6 0.8-2.0 L [facility] IrvingAlkaline Corqnrwpxks9912-10-90 06:09:00* Test Item Value Reference Range Interpretation Comments Alkaline Phosphatase (test code = 6768-6) 95 40-150 [facility] IrvingTotal Yojskjmvd8363-11-37 06:09:00* Test Item Value Reference Range Interpretation Comments Total Bilirubin (test code = 1975-2) 0.2 0.2-1.2 [facility] IrvingAspartate Amino Transf (AST/SGOT) 2018-09-10 06:09:00* Test Item Value Reference Range Interpretation Comments Aspartate Amino Transf (AST/SGOT) (test code = Aspartate Amino Transf (AST/SGOT)) 8 5-34 [facility] IrvingAlanine Aminotransferase (ALT/SGPT) 2018-09-10 06:09:00* Test Item Value Reference Range Interpretation Comments Alanine Aminotransferase (ALT/SGPT) (test code = 1742-6) 12 0-55 [facility] IrvingTotal Ukqfxxn8408-82-18 06:09:00* Test Item Value Reference Range Interpretation Comments Total Protein (test code = 2885-2) 7.5 6.5-8.1 [facility] IrvingAlbumin2019-08-02 06:09:00* Test Item Value Reference Range Interpretation Comments Albumin (test code = 1751-7) 2.9 3.5-5.0 L [facility] IrvingGlobulin2019-08-02 06:09:00* Test Item Value Reference Range Interpretation Comments Globulin (test code = 65608-9) 4.6 2.3-3.5 H [facility] IrvingAlbumin/Globulin Oebvt8169-75-52 06:09:00 * Test Item Value Reference Range Interpretation Comments Albumin/Globulin Ratio (test code = 1759-0) 0.6 0.8-2.0 L [facility] IrvingAlkaline Wgwdcadmzbi2783-09-09 06:09:00* Test Item Value Reference Range Interpretation Comments Alkaline Phosphatase (test code = 6768-6) 95 40-150 [facility] IrvingTotal Kzmpmutpj3339-34-63 06:09:00* Test Item Value Reference Range Interpretation Comments Total Bilirubin (test code = 1975-2) 0.2 0.2-1.2 [facility] IrvingAspartate Amino Transf (AST/SGOT) 2018-09-10 06:09:00* Test Item Value Reference Range Interpretation Comments Aspartate Amino Transf (AST/SGOT) (test code = Aspartate Amino Transf (AST/SGOT)) 8 5-34 [facility] IrvingAlanine Aminotransferase (ALT/SGPT) 2018-09-10 06:09:00* Test Item Value Reference Range Interpretation Comments Alanine Aminotransferase (ALT/SGPT) (test code = 1742-6) 12 0-55 [facility] IrvingTocast[facility] Icapgcv9178-34-84 06:09:00* Test Item Value Reference Range Interpretation Comments Total Protein (test code = 2885-2) 7.5 6.5-8.1 [facility] IrvingAlbumin2019-08-02 06:09:00* Test Item Value Reference Range Interpretation Comments Albumin (test code = 1751-7) 2.9 3.5-5.0 L [facility] IrvingGlobulin2019-08-02 06:09:00* Test Item Value Reference Range Interpretation Comments Globulin (test code = 25664-1) 4.6 2.3-3.5 H [facility] IrvingAlbumin/Globulin Dzqrv7401-10-45 06:09:00 * Test Item Value Reference Range Interpretation Comments Albumin/Globulin Ratio (test code = 1759-0) 0.6 0.8-2.0 L [facility] IrvingAlkaline Qwqzptzfura5751-24-61 06:09:00* Test Item Value Reference Range Interpretation Comments Alkaline Phosphatase (test code = 6768-6) 95 40-150 [facility]Tocastle[facility] Mhkdamstc1427-14-84 06:09:00* Test Item Value Reference Range Interpretation Comments Total Bilirubin (test code = 1975-2) 0.2 0.2-1.2 [facility] IrvingAspartate Amino Transf (AST/SGOT) 2018-09-10 06:09:00* Test Item Value Reference Range Interpretation Comments Aspartate Amino Transf (AST/SGOT) (test code = Aspartate Amino Transf (AST/SGOT)) 8 5-34 [facility] IrvingAlanine Aminotransferase (ALT/SGPT) 2018-09-10 06:09:00* Test Item Value Reference Range Interpretation Comments Alanine Aminotransferase (ALT/SGPT) (test code = 1742-6) 12 0-55 [facility] Zfrfczp6938-81-72 06:09:00* Test Item Value Reference Range Interpretation Comments Total Protein (test code = 2885-2) 7.5 6.5-8.1 [facility] IrvingAlbumin2019-08-02 06:09:00* Test Item Value Reference Range Interpretation Comments Albumin (test code = 1751-7) 2.9 3.5-5.0 L [facility] IrvingGlobulin2019-08-02 06:09:00* Test Item Value Reference Range Interpretation Comments Globulin (test code = 13822-4) 4.6 2.3-3.5 H [facility] IrvingAlbumin/Globulin Pyegl8994-25-31 06:09:00 * Test Item Value Reference Range Interpretation Comments Albumin/Globulin Ratio (test code = 1759-0) 0.6 0.8-2.0 L [facility] IrvingAlkaline Guocuqfzwfc6336-91-85 06:09:00* Test Item Value Reference Range Interpretation Comments Alkaline Phosphatase (test code = 6768-6) 95 40-150 [facility] IrvingTotal Ayieavthe1701-85-33 06:09:00* Test Item Value Reference Range Interpretation Comments Total Bilirubin (test code = 1975-2) 0.2 0.2-1.2 [facility] IrvingAspartate Amino Transf (AST/SGOT) 2018-09-10 06:09:00* Test Item Value Reference Range Interpretation Comments Aspartate Amino Transf (AST/SGOT) (test code = Aspartate Amino Transf (AST/SGOT)) 8 5-34 [facility] IrvingAlanine Aminotransferase (ALT/SGPT) 2018-09-10 06:09:00* Test Item Value Reference Range Interpretation Comments Alanine Aminotransferase (ALT/SGPT) (test code = 1742-6) 12 0-55 [facility] IrvingTotal Vvhwdye8537-72-13 06:09:00* Test Item Value Reference Range Interpretation Comments Total Protein (test code = 2885-2) 7.5 6.5-8.1 [facility] IrvingAlbumin2019-08-02 06:09:00* Test Item Value Reference Range Interpretation Comments Albumin (test code = 1751-7) 2.9 3.5-5.0 L [facility] IrvingGlobulin2019-08-02 06:09:00* Test Item Value Reference Range Interpretation Comments Globulin (test code = 00031-7) 4.6 2.3-3.5 H [facility] IrvingAlbumin/Globulin Oonyl3423-71-18 06:09:00 * Test Item Value Reference Range Interpretation Comments Albumin/Globulin Ratio (test code = 1759-0) 0.6 0.8-2.0 L [facility] IrvingAlkaline Mbtjnizrseg9620-61-06 06:09:00* Test Item Value Reference Range Interpretation Comments Alkaline Phosphatase (test code = 6768-6) 95 40-150 [facility] IrvingUrine [id number] 19:25:00* Test Item Value Reference Range Interpretation Comments Urine WBC (test code = 5821-4) 11-20 0-5 H [facility] IrvingUrine [id number] 19:25:00* Test Item Value Reference Range Interpretation Comments Urine RBC (test code = 74486-1) 6-10 0-5 H [facility] IrvingUrine Aehlbhhh2650-37-24 19:25:00* Test Item Value Reference Range Interpretation Comments Urine Bacteria (test code = 65864-2) MANY NONE H [facility] IrvingUrine Epithelial Bdauj0191-90-92 19:25:00 * Test Item Value Reference Range Interpretation Comments Urine Epithelial Cells (test code = 53565-2) NONE NONE [facility] IrvingUrine Amorphous Ekqtsbyp4532-51-17 19:25:00* Test Item Value Reference Range Interpretation Comments Urine Amorphous Sediment (test code = 8246-1) MODERATE FEW H [facility] [id number] 19:25:00* Test Item Value Reference Range Interpretation Comments Urine WBC (test code = 5821-4) 11-20 0-5 H [facility] [id number] 19:25:00* Test Item Value Reference Range Interpretation Comments Urine RBC (test code = 71551-0) 6-10 0-5 H [facility] Azygrhrv7936-25-19 19:25:00* Test Item Value Reference Range Interpretation Comments Urine Bacteria (test code = 37034-9) MANY NONE H [facility] IrvingUrine Epithelial Akrll2466-33-22 19:25:00 * Test Item Value Reference Range Interpretation Comments Urine Epithelial Cells (test code = 68453-3) NONE NONE [facility] Amorphous Zyzrobpf0540-19-36 19:25:00* Test Item Value Reference Range Interpretation Comments Urine Amorphous Sediment (test code = 8246-1) MODERATE FEW H [facility] [id number] 19:25:00* Test Item Value Reference Range Interpretation Comments Urine WBC (test code = 5821-4) 11-20 0-5 H [facility] [id number] 19:25:00* Test Item Value Reference Range Interpretation Comments Urine RBC (test code = 24544-6) 6-10 0-5 H [facility] Rshxnjcw9898-56-17 19:25:00* Test Item Value Reference Range Interpretation Comments Urine Bacteria (test code = 87928-6) MANY NONE H [facility] IrvingUrine Epithelial Icaiu5950-78-57 19:25:00 * Test Item Value Reference Range Interpretation Comments Urine Epithelial Cells (test code = 11780-1) NONE NONE [facility] IrvingUrine Amorphous Pclviymz1031-52-46 19:25:00* Test Item Value Reference Range Interpretation Comments Urine Amorphous Sediment (test code = 8246-1) MODERATE FEW H [facility] IrvingUrine Bxxmq4290-13-44 19:22:00* Test Item Value Reference Range Interpretation Comments Urine Color (test code = 5778-6) OTHER YELLOW [facility]INKKn[facility] Drkrm7294-77-10 19:22:00* Test Item Value Reference Range Interpretation Comments Urine Color (test code = 5778-6) OTHER YELLOW PINKB[facility] & [facility] – IrvingUrine Auxhx0872-35-83 19:22:00* Test Item Value Reference Range Interpretation Comments Urine Color (test code = 5778-6) OTHER YELLOW PINKBaylor Scott & White Medical Center – IrvingUrine Nhqthlh9236-59-68 19:16:00* Test Item Value Reference Range Interpretation Comments Urine Clarity (test code = 13354-7) SL CLOUDY CLEAR [facility] IrvingUrine Specific Nazxewm2589-38-81 19:16:00 * Test Item Value Reference Range Interpretation Comments Urine Specific [place] (test code = 5811-5) 1.010 1.010-1.02 5 [facility] IrvingU[facility] [id number] 19:16:00* Test Item Value Reference Range Interpretation Comments Urine pH (test code = 96935-4) 6 5-7 [facility] IrvingUrine Leukocyte Cvicszil8077-97-85 19:16:00* Test Item Value Reference Range Interpretation Comments Urine Leukocyte Esterase (test code = 64548-7) LARGE NEGATIV E [facility] IrvingUrine Luoioso6342-19-51 19:16:00* Test Item Value Reference Range Interpretation Comments Urine Nitrite (test code = 96111-2) NEGATIVE NEGATIVE [facility] IrvingUrine Vxtvezw6448-46-43 19:16:00* Test Item Value Reference Range Interpretation Comments Urine Protein (test code = 62955-9) NEGATIVE NEGATIVE [facility] Glucose (UA)2018-09-09 19:16:00* Test Item Value Reference Range Interpretation Comments Urine Glucose (UA) (test code = 09751-7) NEGATIVE NEGATIVE [facility] Vkcuxmh3052-91-71 19:16:00* Test Item Value Reference Range Interpretation Comments Urine Ketones (test code = 64497-2) NEGATIVE NEGATIVE [facility] Biszadpczigl8008-15-59 19:16:00* Test Item Value Reference Range Interpretation Comments Urine Urobilinogen (test code = 86193-6) 0.2 0.2-1 [facility] Picbsxats6192-57-60 19:16:00* Test Item Value Reference Range Interpretation Comments Urine Bilirubin (test code = 1977-8) NEGATIVE NEGATIVE [facility] Rsxga5731-25-93 19:16:00* Test Item Value Reference Range Interpretation Comments Urine Blood (test code = 03644-9) 3+ NEGATIVE [facility] Nakjcan7520-28-89 19:16:00* Test Item Value Reference Range Interpretation Comments Urine Clarity (test code = 31597-5) SL CLOUDY CLEAR [facility] Specific Xczjldb5148-70-99 19:16:00 * Test Item Value Reference Range Interpretation Comments Urine Specific [place] (test code = 5811-5) 1.010 1.010-1.02 5 [facility] fX6221-00-63 19:16:00* Test Item Value Reference Range Interpretation Comments Urine pH (test code = 76353-1) 6 5-7 [facility] Leukocyte Sjfoajbm4651-97-06 19:16:00* Test Item Value Reference Range Interpretation Comments Urine Leukocyte Esterase (test code = 88858-1) LARGE NEGATIV E [facility] Nmkqpyo3338-44-47 19:16:00* Test Item Value Reference Range Interpretation Comments Urine Nitrite (test code = 86179-2) NEGATIVE NEGATIVE [facility] Avbqmei0410-02-51 19:16:00* Test Item Value Reference Range Interpretation Comments Urine Protein (test code = 14764-1) NEGATIVE NEGATIVE [facility] Glucose (UA)2018-09-09 19:16:00* Test Item Value Reference Range Interpretation Comments Urine Glucose (UA) (test code = 83154-2) NEGATIVE NEGATIVE [facility] Wcxksfn2058-92-22 19:16:00* Test Item Value Reference Range Interpretation Comments Urine Ketones (test code = 53808-1) NEGATIVE NEGATIVE [facility] Kfmkbvvwgdox2101-95-79 19:16:00* Test Item Value Reference Range Interpretation Comments Urine Urobilinogen (test code = 27115-1) 0.2 0.2-1 [facility] Jouuyujib3644-42-15 19:16:00* Test Item Value Reference Range Interpretation Comments Urine Bilirubin (test code = 1977-8) NEGATIVE NEGATIVE [facility] Mnvtx0797-76-14 19:16:00* Test Item Value Reference Range Interpretation Comments Urine Blood (test code = 18293-1) 3+ NEGATIVE [facility] Kfhjslj2378-48-44 19:16:00* Test Item Value Reference Range Interpretation Comments Urine Clarity (test code = 44887-2) SL CLOUDY CLEAR [facility] Specific Njbpwcn9797-46-97 19:16:00 * Test Item Value Reference Range Interpretation Comments Urine Specific [place] (test code = 5811-5) 1.010 1.010-1.02 5 [facility] rF1803-80-78 19:16:00* Test Item Value Reference Range Interpretation Comments Urine pH (test code = 84314-0) 6 5-7 [facility] Leukocyte Sgghyjkt0306-29-21 19:16:00* Test Item Value Reference Range Interpretation Comments Urine Leukocyte Esterase (test code = 53084-4) LARGE NEGATIV E [facility] Umerbiw2566-89-39 19:16:00* Test Item Value Reference Range Interpretation Comments Urine Nitrite (test code = 68120-9) NEGATIVE NEGATIVE [facility] Gfjjgxy3569-43-06 19:16:00* Test Item Value Reference Range Interpretation Comments Urine Protein (test code = 99694-4) NEGATIVE NEGATIVE [facility] Glucose (UA)2018-09-09 19:16:00* Test Item Value Reference Range Interpretation Comments Urine Glucose (UA) (test code = 19393-6) NEGATIVE NEGATIVE [facility] Eqsdbil6013-58-50 19:16:00* Test Item Value Reference Range Interpretation Comments Urine Ketones (test code = 49667-9) NEGATIVE NEGATIVE [facility] Vggroqrqdpel4144-81-27 19:16:00* Test Item Value Reference Range Interpretation Comments Urine Urobilinogen (test code = 27260-2) 0.2 0.2-1 [facility] Bcegoyzjf6024-59-47 19:16:00* Test Item Value Reference Range Interpretation Comments Urine Bilirubin (test code = 1977-8) NEGATIVE NEGATIVE [facility] Vnndt1573-91-39 19:16:00* Test Item Value Reference Range Interpretation Comments Urine Blood (test code = 23713-7) 3+ NEGATIVE [facility] Irving[facility] (KUB)2018-09-09 18:34:00 [place] [address] Patient Name: WESLY HUTCHINSON MR #: [id number] : Age/Sex: 57/F Req #: [id number] Adm Physician: Ordered by: ASHA BARDALES CLIP RIVETER Report #: [id number] Location: ER Room/Bed: Procedure: 0801-0 054 DX/ABDOMEN-1VIEW [...] ASHA BARDALES NP SPECIAL PROCEDURE IN CATH AUB4383-93-74 14:18:00 [place] [address] Patient Name: WESLY HUTCHINSON MR #: [id number] : Age/Sex: 57/F Req #: [id number] Adm Physician: Ordered by: JARET ESPINOSA MD Report #: [id number] Location: [facility] [place] Room/Bed: Procedure: [id number] I R/SPECIAL PROCEDURE IN [place] Exam Date: Exam Kirk e: REPORT STATUS: Signed PROCED URE: CHG PERC TUBE/DRN CATH/CON/S I COMPARISON: Prior nephrostomy tube change [...] Minimal Blood products administered: None Specimens: 10 [place] percutaneous nephrostomy catheter, discarded Implants/grafts: 10 [place] percutaneous nephrostomy catheter Condition at completion: Stable Dispo sition: Catheter lab holding area for recovery Complications: No immediate Procedure in detail: Informed consent was obtained and documented in the pr dical record after discussion of risks and [...] pelvi s. The catheter was then exchanged cukt-qmx-iwid for a new 10 [place] locking loop percutaneous nephrostomy catheter. The wire [...] complication. CONCLUSION: Successful exchange of a 10 [place] locking loop right percutaneous n ephrostomy catheter [...] Bea d By: OSIEL SULLIVAN MD on 08/16/181417 Transcribed By: SUSHANT on 08/16/188 COPY TO: JARET ESPINOSA MD Human Chorionic Gonadotropin, [facility] 2018-08-06 11:36:00* Test Item Value Reference Range Interpretation Comments Human Chorionic Gonadotropin, Qual (test code = 2118-8) NEGATIVE NEGATIVE [facility] Chorionic Gonadotropin, [facility] 2018-08-06 11:36:00* Test Item Value Reference Range Interpretation Comments Human Chorionic Gonadotropin, Qual (test code = 8-8) NEGATIVE NEGATIVE [facility] Chorionic Gonadotropin, [facility] 2018-08-06 11:36:00* Test Item Value Reference Range Interpretation Comments Human Chorionic Gonadotropin, Qual (test code = 8-8) NEGATIVE NEGATIVE [facility] Chorionic Gonadotropin, [facility] 2018-08-06 11:36:00* Test Item Value Reference Range Interpretation Comments Human Chorionic Gonadotropin, Qual (test code = 2118-8) NEGATIVE NEGATIVE [facility] Chorionic Gonadotropin, [facility] 2018-08-06 11:36:00* Test Item Value Reference Range Interpretation Comments Human Chorionic Gonadotropin, Qual (test code = 2118-8) NEGATIVE NEGATIVE [facility] Chorionic Gonadotropin, [facility] 2018-08-06 11:36:00* Test Item Value Reference Range Interpretation Comments Human Chorionic Gonadotropin, Qual (test code = 8-8) NEGATIVE NEGATIVE [facility] Chorionic Gonadotropin, [facility] 2018-08-06 11:36:00* Test Item Value Reference Range Interpretation Comments Human Chorionic Gonadotropin, Qual (test code = 2118-8) NEGATIVE NEGATIVE [facility] Hphpfxl4044-71-88 14:16:00* Test Item Value Reference Range Interpretation Comments Urine Culture (test code = 630-4) Organism: ENTEROCOCCUS FAECIUM-VR E [facility] Lraybaj7876-13-28 13:57:00* Test Item Value Reference Range Interpretation Comments Urine Culture (test code = 630-4) Organism: ENTEROCOCCUS FAECIUM-VR E [facility] Xxyiwdq3742-00-71 13:57:00* Test Item Value Reference Range Interpretation Comments Urine Culture (test code = 630-4) Organism: ENTEROCOCCUS FAECIUM-VR E [facility] Dakthro4752-97-02 13:57:00* Test Item Value Reference Range Interpretation Comments Urine Culture (test code = 630-4) Organism: ENTEROCOCCUS FAECIUM-VR E [facility] Dkmdiyo4770-70-16 13:57:00* Test Item Value Reference Range Interpretation Comments Urine Culture (test code = 630-4) Organism: ENTEROCOCCUS FAECIUM-VR E [facility] Jncseiv7196-41-61 13:57:00* Test Item Value Reference Range Interpretation Comments Urine Culture (test code = 630-4) No Result Data Provided [facility] Zyffzrg2517-86-36 13:57:00* Test Item Value Reference Range Interpretation Comments Urine Culture (test code = 630-4) No Result Data Provided [facility] YTV7960-68-10 17:43:00* Test Item Value Reference Range Interpretation Comments Urine WBC (test code = 5821-4) 11-20 0-5 H [facility] VFE7266-65-64 17:43:00* Test Item Value Reference Range Interpretation Comments Urine RBC (test code = 69157-0) 6-10 0-5 H [facility] Ufexwanw5860-05-80 17:43:00* Test Item Value Reference Range Interpretation Comments Urine Bacteria (test code = 03446-0) MODERATE NONE H [facility] Epithelial Aetfn8552-10-17 17:43:00 * Test Item Value Reference Range Interpretation Comments Urine Epithelial Cells (test code = 36483-0) NONE NONE [facility] Amorphous Qwwgudzi4849-71-99 17:43:00* Test Item Value Reference Range Interpretation Comments Urine Amorphous Sediment (test code = 8246-1) MODERATE FEW H [facility] MNG3334-34-70 17:43:00* Test Item Value Reference Range Interpretation Comments Urine WBC (test code = 5821-4) 11-20 0-5 H [facility] TKQ5686-61-67 17:43:00* Test Item Value Reference Range Interpretation Comments Urine RBC (test code = 34982-2) 6-10 0-5 H [facility] Armwdqhu1722-02-74 17:43:00* Test Item Value Reference Range Interpretation Comments Urine Bacteria (test code = 00843-6) MODERATE NONE H [facility] Epithelial Safdx2971-10-13 17:43:00 * Test Item Value Reference Range Interpretation Comments Urine Epithelial Cells (test code = 78500-4) NONE NONE [facility] Amorphous Iasginse1243-95-17 17:43:00* Test Item Value Reference Range Interpretation Comments Urine Amorphous Sediment (test code = 8246-1) MODERATE FEW H [facility] Dqggl0963-39-95 17:29:00* Test Item Value Reference Range Interpretation Comments Urine Color (test code = 5778-6) YELLOW YELLOW [facility] Mlawwfh0825-78-07 17:29:00* Test Item Value Reference Range Interpretation Comments Urine Clarity (test code = 42182-1) CLEAR CLEAR [facility] Specific Phdhosj9923-98-67 17:29:00 * Test Item Value Reference Range Interpretation Comments Urine Specific [place] (test code = 5811-5) <=1.005 1.010-1.02 5 [facility] gE2356-38-36 17:29:00* Test Item Value Reference Range Interpretation Comments Urine pH (test code = 43139-9) 7.5 5-7 [facility] Leukocyte Dnjvvayu4112-39-54 17:29:00* Test Item Value Reference Range Interpretation Comments Urine Leukocyte Esterase (test code = 67324-3) LARGE NEGATIV E [facility] Cefklfp0343-13-09 17:29:00* Test Item Value Reference Range Interpretation Comments Urine Nitrite (test code = 27535-1) NEGATIVE NEGATIVE [facility] Ucnxkce5728-55-41 17:29:00* Test Item Value Reference Range Interpretation Comments Urine Protein (test code = 60547-3) 1+ NEGATIVE H [facility] Glucose (UA)2018-07-19 17:29:00* Test Item Value Reference Range Interpretation Comments Urine Glucose (UA) (test code = 34991-2) NEGATIVE NEGATIVE [facility] Ylbktfh9544-89-36 17:29:00* Test Item Value Reference Range Interpretation Comments Urine Ketones (test code = 31693-4) NEGATIVE NEGATIVE [facility] Zuoigwjmbswq6458-92-43 17:29:00* Test Item Value Reference Range Interpretation Comments Urine Urobilinogen (test code = 46714-0) 0.2 0.2-1 [facility] Vqbdajihq7318-07-56 17:29:00* Test Item Value Reference Range Interpretation Comments Urine Bilirubin (test code = 1977-8) NEGATIVE NEGATIVE [facility] Lzufk0254-41-26 17:29:00* Test Item Value Reference Range Interpretation Comments Urine Blood (test code = 98972-9) 3+ NEGATIVE [facility] Ufucj4100-94-57 17:29:00* Test Item Value Reference Range Interpretation Comments Urine Color (test code = 5778-6) YELLOW YELLOW [facility] Ghjrumj8696-00-74 17:29:00* Test Item Value Reference Range Interpretation Comments Urine Clarity (test code = 21143-1) CLEAR CLEAR [facility] Irving[facility] Specific Sifxsjt8970-81-91 17:29:00 * Test Item Value Reference Range Interpretation Comments Urine Specific [place] (test code = 5811-5) <=1.005 1.010-1.02 5 [facility] rN3195-96-24 17:29:00* Test Item Value Reference Range Interpretation Comments Urine pH (test code = 41932-9) 7.5 5-7 [facility] Leukocyte Obkkupkh1101-46-90 17:29:00* Test Item Value Reference Range Interpretation Comments Urine Leukocyte Esterase (test code = 78581-3) LARGE NEGATIV E [facility] Qxgckak1017-33-54 17:29:00* Test Item Value Reference Range Interpretation Comments Urine Nitrite (test code = 71980-3) NEGATIVE NEGATIVE [facility] Qjqfbun5668-05-18 17:29:00* Test Item Value Reference Range Interpretation Comments Urine Protein (test code = 21712-4) 1+ NEGATIVE H [facility] Glucose (UA)2018-07-19 17:29:00* Test Item Value Reference Range Interpretation Comments Urine Glucose (UA) (test code = 29258-3) NEGATIVE NEGATIVE [facility] Eqtvwwc2686-66-00 17:29:00* Test Item Value Reference Range Interpretation Comments Urine Ketones (test code = 48147-5) NEGATIVE NEGATIVE [facility] Okppzzsveaze2717-45-58 17:29:00* Test Item Value Reference Range Interpretation Comments Urine Urobilinogen (test code = 00616-3) 0.2 0.2-1 [facility] Zdvjhpbks6035-47-39 17:29:00* Test Item Value Reference Range Interpretation Comments Urine Bilirubin (test code = 1977-8) NEGATIVE NEGATIVE [facility] Hzgck3199-86-71 17:29:00* Test Item Value Reference Range Interpretation Comments Urine Blood (test code = 50633-8) 3+ NEGATIVE [facility] Hyaline Ouzex8795-01-09 17:10:00* Test Item Value Reference Range Interpretation Comments Urine Hyaline Casts (test code = 57174-4) 0-1 0-1 [facility] Hyaline Qcupm5035-10-08 17:10:00* Test Item Value Reference Range Interpretation Comments Urine Hyaline Casts (test code = 50133-4) 0-1 0-1 [facility] Hyaline Vhbbl8387-40-04 17:10:00* Test Item Value Reference Range Interpretation Comments Urine Hyaline Casts (test code = 93780-5) 0-1 0-1 [facility] Hyaline Svojo4018-28-27 17:10:00* Test Item Value Reference Range Interpretation Comments Urine Hyaline Casts (test code = 86269-2) 0-1 0-1 [facility] Hyaline Uirpq2232-35-18 17:10:00* Test Item Value Reference Range Interpretation Comments Urine Hyaline Casts (test code = 94703-8) 0-1 0-1 [facility] Hyaline Aanpb3194-94-01 17:10:00* Test Item Value Reference Range Interpretation Comments Urine Hyaline Casts (test code = 76547-4) 0-1 0-1 [facility] Hyaline Oldug5513-33-25 17:10:00* Test Item Value Reference Range Interpretation Comments Urine Hyaline Casts (test code = 03918-0) 0-1 0-1 [facility] Hyaline Tsyic4515-28-22 17:10:00* Test Item Value Reference Range Interpretation Comments Urine Hyaline Casts (test code = 85125-2) 0-1 0-1 [facility] Hyaline Yecvx0308-65-22 17:10:00* Test Item Value Reference Range Interpretation Comments Urine Hyaline Casts (test code = 23329-4) 0-1 0-1 [facility] Jkxin4786-83-11 16:53:00* Test Item Value Reference Range Interpretation Comments Sodium Level (test code = 2951-2) 134 136-145 L [facility] IrvingPotassium Lxvvh8479-19-30 16:53:00* Test Item Value Reference Range Interpretation Comments Potassium Level (test code = 2823-3) 4.6 3.5-5.1 [facility] IrvingChloride Dpkwl8393-48-61 16:53:00* Test Item Value Reference Range Interpretation Comments Chloride Level (test code = 2075-0) 105 98-107 [facility] IrvingCarbon Dioxide Rjtyh3168-67-75 16:53:00* Test Item Value Reference Range Interpretation Comments Carbon Dioxide Level (test code = 2028-9) 21 22-29 L [facility] IrvingAnion Zva1225-42-73 16:53:00* Test Item Value Reference Range Interpretation Comments Anion Gap (test code = 45428-6) 12.6 8-16 [facility] IrvingBlood Urea Bgvvzrbf6310-27-70 16:53:00* Test Item Value Reference Range Interpretation Comments Blood Urea Nitrogen (test code = 3094-0) 18 7-26 [facility] IrvingCreatinine2019-06-10 16:53:00* Test Item Value Reference Range Interpretation Comments Creatinine (test code = 2160-0) 1.32 0.57-1.11 H [facility] IrvingBUN/Creatinine Hptfy7101-43-85 16:53:00* Test Item Value Reference Range Interpretation Comments BUN/Creatinine Ratio (test code = 3097-3) 14 6- [facility] IrvingEstimat Glomerular Filtration Rate 2018-07-19 16:53:00* Test Item Value Reference Range Interpretation Comments Estimat Glomerular Filtration Rate (test code = 828065977) 42 >60 L Ranges were taken from the National Kidney Disease Education Program and the [facility] Kidney Foundation literature.Reference ranges:60 or greater: Utwpta15-03 ( for 3 consecutive months): Chronic kidney disease 15 or less: Kidney failureBaylor Scott & White [facility] Center – IrvingGlucose Aeihz9317-95-23 16:53:00* Test Item Value Reference Range Interpretation Comments Glucose Level (test code = XEQ0631) 147 74-118 H [facility] IrvingCalcium Plgcz6683-14-42 16:53:00* Test Item Value Reference Range Interpretation Comments Calcium Level (test code = 34528-3) 9.8 8.4-10.2 [facility]enton[facility] Mpeyu3695-42-82 16:53:00* Test Item Value Reference Range Interpretation Comments Sodium Level (test code = 2951-2) 134 136-145 L [facility] IrvingPotassium Lhcro9466-63-41 16:53:00* Test Item Value Reference Range Interpretation Comments Potassium Level (test code = 2823-3) 4.6 3.5-5.1 [facility] IrvingChloride Gjhmt6634-21-30 16:53:00* Test Item Value Reference Range Interpretation Comments Chloride Level (test code = 2075-0) 105 98-107 [facility] IrvingCarbon Dioxide Lcnma9971-44-80 16:53:00* Test Item Value Reference Range Interpretation Comments Carbon Dioxide Level (test code = 2028-9) 21 22-29 L [facility] IrvingAnion Yum7671-48-71 16:53:00* Test Item Value Reference Range Interpretation Comments Anion Gap (test code = 20028-2) 12.6 8-16 [facility] IrvingBlood Urea Mweasjtr8009-85-50 16:53:00* Test Item Value Reference Range Interpretation Comments Blood Urea Nitrogen (test code = 3094-0) 18 7-26 [facility] IrvingCreatinine2019-06-10 16:53:00* Test Item Value Reference Range Interpretation Comments Creatinine (test code = 2160-0) 1.32 0.57-1.11 H [facility] IrvingBUN/Creatinine Fqrec9387-20-13 16:53:00* Test Item Value Reference Range Interpretation Comments BUN/Creatinine Ratio (test code = 3097-3) 14 6-25 [facility] IrvingEstimat Glomerular Filtration Rate 2018-07-19 16:53:00* Test Item Value Reference Range Interpretation Comments Estimat Glomerular Filtration Rate (test code = 932012746) 42 >60 L Ranges were taken from the National Kidney Disease Education Program and the [facility] Kid[facility] Foundation literature.Reference ranges:60 or greater: Qpgnfh86-20 ( for 3 consecutive months): Chronic kidney disease 15 or less: Kidney failureBaylor Scott & White Medical Center – IrvingGlucose Bfaej6791-54-05 16:53:00* Test Item Value Reference Range Interpretation Comments Glucose Level (test code = LZH1565) 147 74-118 H [facility] IrvingCalcium Zdtsa1948-88-39 16:53:00* Test Item Value Reference Range Interpretation Comments Calcium Level (test code = 80608-9) 9.8 8.4-10.2 [facility] IrvingWhite Blood Oxegn8653-67-41 16:46:00* Test Item Value Reference Range Interpretation Comments White Blood Count (test code = 6690-2) 8.52 4.8-10.8 [facility] IrvingRed Blood Ivgku6875-39-31 16:46:00* Test Item Value Reference Range Interpretation Comments Red Blood Count (test code = 789-8) 4.04 3.6-5.1 [facility] IrvingHemoglobin2019-06-10 16:46:00* Test Item Value Reference Range Interpretation Comments Hemoglobin (test code = 07171-5) 10.2 12.0-16.0 L [facility] IrvingHematocrit2019-06-10 16:46:00* Test Item Value Reference Range Interpretation Comments Hematocrit (test code = 4544-3) 33.7 34.2-44.1 L [facility] IrvingMean Corpuscular Czznva3343-85-53 16:46:00* Test Item Value Reference Range Interpretation Comments Mean Corpuscular Volume (test code = 787-2) 83.4 81-99 [facility] IrvingMean Corpuscular Ebchizbtgi4803-60-23 16:46:00* Test Item Value Reference Range Interpretation Comments Mean Corpuscular Hemoglobin (test code = 785-6) 25.2 28-32 L [facility] IrvingMean Corpuscular Hemoglobin Concent 2018-07-19 16:46:00* Test Item Value Reference Range Interpretation Comments Mean Corpuscular Hemoglobin Concent (test code = 786-4) 30.3 31-35 L [facility] IrvingRed Cell Distribution Lxnma0829-60-99 16:46:00* Test Item Value Reference Range Interpretation Comments Red Cell Distribution Width (test code = 84318-3) 16.1 11.7 -14.4 H [facility] IrvingPlatelet Kdgyb7597-02-51 16:46:00* Test Item Value Reference Range Interpretation Comments Platelet Count (test code = 777-3) 276 140-360 [facility] IrvingNeutrophils (%) (Auto)2018-07-19 16:46:00 * Test Item Value Reference Range Interpretation Comments Neutrophils (%) (Auto) (test code = 17482-5) 68.2 38.7-80.0 [facility] IrvingLymphocytes (%) (Auto)2018-07-19 16:46:00 * Test Item Value Reference Range Interpretation Comments Lymphocytes (%) (Auto) (test code = 736-9) 22.7 18.0-39.1 [facility] IrvingMonocytes (%) (Auto)2018-07-19 16:46:00* Test Item Value Reference Range Interpretation Comments Monocytes (%) (Auto) (test code = 5905-5) 5.4 4.4-11.3 [facility] IrvingEosinophils (%) (Auto)2018-07-19 16:46:00 * Test Item Value Reference Range Interpretation Comments Eosinophils (%) (Auto) (test code = 713-8) 2.3 0.0-6.0 [facility] IrvingBasophils (%) (Auto)2018-07-19 16:46:00* Test Item Value Reference Range Interpretation Comments Basophils (%) (Auto) (test code = 706-2) 0.8 0.0-1.0 [facility] IrvingIM GRANULOCYTES %2018-07-19 16:46:00* Test Item Value Reference Range Interpretation Comments IM GRANULOCYTES % (test code = IM GRANULOCYTES %) 0.6 0.0- 1.0 [facility] IrvingNeutrophils # (Auto)2018-07-19 16:46:00* Test Item Value Reference Range Interpretation Comments Neutrophils # (Auto) (test code = 751-8) 5.8 2.1-6.9 [facility] IrvingLymphocytes # (Auto)2018-07-19 16:46:00* Test Item Value Reference Range Interpretation Comments Lymphocytes # (Auto) (test code = 27938-0) 1.9 1.0-3.2 [facility] IrvingMonocytes # (Auto)2018-07-19 16:46:00* Test Item Value Reference Range Interpretation Comments Monocytes # (Auto) (test code = 742-7) 0.5 0.2-0.8 [facility] IrvingEosinophils # (Auto)2018-07-19 16:46:00* Test Item Value Reference Range Interpretation Comments Eosinophils # (Auto) (test code = 711-2) 0.2 0.0-0.4 [facility] IrvingBasophils # (Auto)2018-07-19 16:46:00* Test Item Value Reference Range Interpretation Comments Basophils # (Auto) (test code = 704-7) 0.1 0.0-0.1 [facility] IrvingAbsolute Immature Granulocyte (auto 2018-07-19 16:46:00* Test Item Value Reference Range Interpretation Comments Absolute Immature Granulocyte (auto (irena t code = Absolute Immature Granulocyte (auto) 0.05 0-0.1 [facility] IrvingWhite Blood Ieajp3704-95-07 16:46:00* Test Item Value Reference Range Interpretation Comments White Blood Count (test code = 6690-2) 8.52 4.8-10.8 [facility] IrvingRed Blood Xstdv3060-85-06 16:46:00* Test Item Value Reference Range Interpretation Comments Red Blood Count (test code = 789-8) 4.04 3.6-5.1 [facility] IrvingHemoglobin2019-06-10 16:46:00* Test Item Value Reference Range Interpretation Comments Hemoglobin (test code = 22412-9) 10.2 12.0-16.0 L [facility] IrvingHematocrit2019-06-10 16:46:00* Test Item Value Reference Range Interpretation Comments Hematocrit (test code = 4544-3) 33.7 34.2-44.1 L [facility] IrvingMean Corpuscular Bkkirq0904-84-82 16:46:00* Test Item Value Reference Range Interpretation Comments Mean Corpuscular Volume (test code = 787-2) 83.4 81-99 [facility] IrvingMean Corpuscular Mmpwnhsjdx8518-27-65 16:46:00* Test Item Value Reference Range Interpretation Comments Mean Corpuscular Hemoglobin (test code = 785-6) 25.2 28-32 L [facility] IrvingMean Corpuscular Hemoglobin Concent 2018-07-19 16:46:00* Test Item Value Reference Range Interpretation Comments Mean Corpuscular Hemoglobin Concent (test code = 786-4) 30.3 31-35 L [facility] IrvingRed Cell Distribution Yoube9371-64-00 16:46:00* Test Item Value Reference Range Interpretation Comments Red Cell Distribution Width (test code = 13698-9) 16.1 11.7 -14.4 H [facility] IrvingPlatelet Rnggz7891-14-33 16:46:00* Test Item Value Reference Range Interpretation Comments Platelet Count (test code = 777-3) 276 140-360 [facility] IrvingNeutrophils (%) (Auto)2018-07-19 16:46:00 * Test Item Value Reference Range Interpretation Comments Neutrophils (%) (Auto) (test code = 73998-5) 68.2 38.7-80.0 [facility] IrvingLymphocytes (%) (Auto)2018-07-19 16:46:00 * Test Item Value Reference Range Interpretation Comments Lymphocytes (%) (Auto) (test code = 736-9) 22.7 18.0-39.1 [facility] IrvingMonocytes (%) (Auto)2018-07-19 16:46:00* Test Item Value Reference Range Interpretation Comments Monocytes (%) (Auto) (test code = 5905-5) 5.4 4.4-11.3 [facility] IrvingEosinophils (%) (Auto)2018-07-19 16:46:00 * Test Item Value Reference Range Interpretation Comments Eosinophils (%) (Auto) (test code = 713-8) 2.3 0.0-6.0 [facility] IrvingBasophils (%) (Auto)2018-07-19 16:46:00* Test Item Value Reference Range Interpretation Comments Basophils (%) (Auto) (test code = 706-2) 0.8 0.0-1.0 [facility] IrvingIM GRANULOCYTES %2018-07-19 16:46:00* Test Item Value Reference Range Interpretation Comments IM GRANULOCYTES % (test code = IM GRANULOCYTES %) 0.6 0.0- 1.0 [facility] IrvingNeutrophils # (Auto)2018-07-19 16:46:00* Test Item Value Reference Range Interpretation Comments Neutrophils # (Auto) (test code = 751-8) 5.8 2.1-6.9 [facility] IrvingLymphocytes # (Auto)2018-07-19 16:46:00* Test Item Value Reference Range Interpretation Comments Lymphocytes # (Auto) (test code = 28694-4) 1.9 1.0-3.2 [facility] IrvingMonocytes # (Auto)2018-07-19 16:46:00* Test Item Value Reference Range Interpretation Comments Monocytes # (Auto) (test code = 742-7) 0.5 0.2-0.8 [facility] IrvingEosinophils # (Auto)2018-07-19 16:46:00* Test Item Value Reference Range Interpretation Comments Eosinophils # (Auto) (test code = 711-2) 0.2 0.0-0.4 [facility] IrvingBasophils # (Auto)2018-07-19 16:46:00* Test Item Value Reference Range Interpretation Comments Basophils # (Auto) (test code = 704-7) 0.1 0.0-0.1 [facility] IrvingAbsolute Immature Granulocyte (auto 2018-07-19 16:46:00* Test Item Value Reference Range Interpretation Comments Absolute Immature Granulocyte (auto (irena t code = Absolute Immature Granulocyte (auto) 0.05 0-0.1 [facility] IrvingUrine Dejleej0921-53-41 08:24:00* Test Item Value Reference Range Interpretation Comments Urine Culture (test code = 630-4) Organism: ENTEROCOCCUS FAECIUM [facility] IrvingUrine Xuifygl2051-28-04 08:24:00* Test Item Value Reference Range Interpretation Comments Urine Culture (test code = 630-4) Organism: ENTEROCOCCUS FAECIUM [facility] IrvingUrine Yonoucx8523-14-78 08:24:00* Test Item Value Reference Range Interpretation Comments Urine Culture (test code = 630-4) Organism: ENTEROCOCCUS FAECIUM [facility] IrvingUrine Deekqbo1814-91-91 08:24:00* Test Item Value Reference Range Interpretation Comments Urine Culture (test code = 630-4) Organism: ENTEROCOCCUS FAECIUM [facility] Yfgqkwm6213-69-07 08:24:00* Test Item Value Reference Range Interpretation Comments Urine Culture (test code = 630-4) Organism: ENTEROCOCCUS FAECIUM [facility] Zzongcd9350-12-82 08:24:00* Test Item Value Reference Range Interpretation Comments Urine Culture (test code = 630-4) No Result Data Provided [facility] Fizfssv0709-66-22 08:24:00* Test Item Value Reference Range Interpretation Comments Urine Culture (test code = 630-4) No Result Data Provided [facility] Gncbw0047-50-85 18:38:00* Test Item Value Reference Range Interpretation Comments Urine Color (test code = 5778-6) RED YELLOW [facility] IrvingUrine Xutybfi6213-51-52 18:38:00* Test Item Value Reference Range Interpretation Comments Urine Clarity (test code = 78027-7) CLOUDY CLEAR H [facility] IrvingUrine Specific Qcgsuxo3950-49-99 18:38:00 * Test Item Value Reference Range Interpretation Comments Urine Specific [place] (test code = 5811-5) 1.010 1.010-1.02 5 [facility] IrvingUrine zQ7331-57-95 18:38:00* Test Item Value Reference Range Interpretation Comments Urine pH (test code = 13380-2) 7 5-7 [facility] IrvingUrine Leukocyte Atweozbx8396-37-63 18:38:00* Test Item Value Reference Range Interpretation Comments Urine Leukocyte Esterase (test code = 5799-2) 1+ NEGATIVE H [facility] Nrsstui8256-08-06 18:38:00* Test Item Value Reference Range Interpretation Comments Urine Nitrite (test code = 18013-3) NEGATIVE NEGATIVE [facility] IrvingUrine Ozhucox4391-81-99 18:38:00* Test Item Value Reference Range Interpretation Comments Urine Protein (test code = 5804-0) 3+ NEGATIVE H [facility] IrvingUrine Glucose (UA)2018-05-29 18:38:00* Test Item Value Reference Range Interpretation Comments Urine Glucose (UA) (test code = 2349-9) NEGATIVE NEGATIVE [facility] IrvingUrine Dcszdvw1970-42-68 18:38:00* Test Item Value Reference Range Interpretation Comments Urine Ketones (test code = 80771-7) NEGATIVE NEGATIVE [facility] IrvingUrine Degzwvzofmxm6902-56-24 18:38:00* Test Item Value Reference Range Interpretation Comments Urine Urobilinogen (test code = 10188-0) 0.2 0.2-1 [facility] IrvingUrine Swnlwownc9405-77-91 18:38:00* Test Item Value Reference Range Interpretation Comments Urine Bilirubin (test code = 1978-6) NEGATIVE NEGATIVE [facility] IrvingUrine Dntaz9559-06-33 18:38:00* Test Item Value Reference Range Interpretation Comments Urine Blood (test code = 00769-3) 4+ NEGATIVE H [facility] IrvingUrine ABC7110-53-10 18:38:00* Test Item Value Reference Range Interpretation Comments Urine WBC (test code = 5821-4) >50 0-5 H [facility] IrvingUrine HQA1163-80-41 18:38:00* Test Item Value Reference Range Interpretation Comments Urine RBC (test code = 73018-2) >50 0-5 H [facility] IrvingUrine Ckegwpyb4865-97-42 18:38:00* Test Item Value Reference Range Interpretation Comments Urine Bacteria (test code = 53565-9) MANY NONE H [facility] IrvingUrine Epithelial Tbdjr6405-66-24 18:38:00 * Test Item Value Reference Range Interpretation Comments Urine Epithelial Cells (test code = 06608-3) MODERATE NONE [facility] IrvingCT ABDOMEN/PELVIS EP9938-30-36 17:33:00 [place] [address] Patient Name: WESLY HUTCHINSON MR #: [id number] : 1960 Age/Sex: 57/F Req #: [id number] Adm Physician: Ordered by: LIZ MUÑIZ MD Report #: [id number] Location: ER Room/Bed: Procedure: [id number] CT/CT ABDOMEN/PELVIS WO Exam Date: 05/29/18 Exam Time: 16 REPORT STATUS: Signed EXAM: C T Abdomen and Pelvis WITHOUT contrast INDICATION: CT CYSTOGRAM 2 [id number] Y COMPARISON: Nephrostomy tube x-ray 05/07/2018 [...] MD 42 COPY TO: LIZ MUÑIZ MD Sodium Igpua9028-72-10 16:54:00* Test Item Value Reference Range Interpretation Comments Sodium Level (test code = 2951-2) 137 136-145 [facility] IrvingPotassium Joguh7723-13-20 16:54:00* Test Item Value Reference Range Interpretation Comments Potassium Level (test code = 2823-3) 3.9 3.5-5.1 [facility] IrvingChloride Anawa9433-96-97 16:54:00* Test Item Value Reference Range Interpretation Comments Chloride Level (test code = 2075-0) 104 98-107 [facility] IrvingCarbon Dioxide Atvyp9742-42-51 16:54:00* Test Item Value Reference Range Interpretation Comments Carbon Dioxide Level (test code = 8-9) 23 22-29 [facility] IrvingAnion Eaa4148-91-58 16:54:00* Test Item Value Reference Range Interpretation Comments Anion Gap (test code = 03714-9) 13.9 8-16 [facility] IrvingBlood Urea Qslobvgz0230-91-39 16:54:00* Test Item Value Reference Range Interpretation Comments Blood Urea Nitrogen (test code = 3094-0) 10 7-26 [facility] IrvingCreatinine2019-04-20 16:54:00* Test Item Value Reference Range Interpretation Comments Creatinine (test code = 2160-0) 1.29 0.57-1.11 H [facility] IrvingBUN/Creatinine Gayjd1663-10-22 16:54:00* Test Item Value Reference Range Interpretation Comments BUN/Creatinine Ratio (test code = 3097-3) 8 6- [facility] IrvingEstimat Glomerular Filtration Rate 2018-05-29 16:54:00* Test Item Value Reference Range Interpretation Comments Estimat Glomerular Filtration Rate (test code = 956146128) 43 >60 L Ranges were taken from the National Kidney Disease Education Program and the [facility] Foundation literature.Reference ranges:60 or greater: Iboeyb57-16 ( for 3 consecutive months): Chronic kidney disease 15 or less: Kidney failureBaylor Scott & [facility] Medical Center – IrvingGlucose Nrgwo0154-14-39 16:54:00* Test Item Value Reference Range Interpretation Comments Glucose Level (test code = FXY6472) 125 74-118 H [facility] IrvingCalcium Bniwz8624-93-65 16:54:00* Test Item Value Reference Range Interpretation Comments Calcium Level (test code = 35816-1) 9.8 8.4-10.2 [facility] IrvingTotal Wwtiuzldv1229-18-23 16:54:00* Test Item Value Reference Range Interpretation Comments Total Bilirubin (test code = 1975-2) 0.6 0.2-1.2 [facility] IrvingAspartate Amino Transf (AST/SGOT) 2018-05-29 16:54:00* Test Item Value Reference Range Interpretation Comments Aspartate Amino Transf (AST/SGOT) (test code = Aspartate Amino Transf (AST/SGOT)) 22 5-34 [facility] IrvingAlanine Aminotransferase (ALT/SGPT) 2018-05-29 16:54:00* Test Item Value Reference Range Interpretation Comments Alanine Aminotransferase (ALT/SGPT) (test code = 1742-6) 25 0-55 [facility] IrvingTotal Wisstyd1212-07-31 16:54:00* Test Item Value Reference Range Interpretation Comments Total Protein (test code = 2885-2) 8.4 6.5-8.1 H [facility] IrvingAlbumin2019-04-20 16:54:00* Test Item Value Reference Range Interpretation Comments Albumin (test code = 1751-7) 3.4 3.5-5.0 L [facility] IrvingGlobulin2019-04-20 16:54:00* Test Item Value Reference Range Interpretation Comments Globulin (test code = 08235-8) 5.0 2.3-3.5 H [facility] IrvingAlbumin/Globulin Qqtsi5277-54-41 16:54:00 * Test Item Value Reference Range Interpretation Comments Albumin/Globulin Ratio (test code = 1759-0) 0.7 0.8-2.0 L [facility] IrvingAlkaline Ltcxgdweydm2425-82-37 16:54:00* Test Item Value Reference Range Interpretation Comments Alkaline Phosphatase (test code = 6768-6) 108 40-150 [facility] IrvingTotal Lfhtgrcvp6722-41-21 16:54:00* Test Item Value Reference Range Interpretation Comments Total Bilirubin (test code = 1975-2) 0.6 0.2-1.2 [facility] IrvingAspartate Amino Transf (AST/SGOT) 2018-05-29 16:54:00* Test Item Value Reference Range Interpretation Comments Aspartate Amino Transf (AST/SGOT) (test code = Aspartate Amino Transf (AST/SGOT)) 22 5-34 [facility] IrvingAlanine Aminotransferase (ALT/SGPT) 2018-05-29 16:54:00* Test Item Value Reference Range Interpretation Comments Alanine Aminotransferase (ALT/SGPT) (test code = 1742-6) 25 0-55 [facility] IrvingTotal Xzdphtu9440-10-05 16:54:00* Test Item Value Reference Range Interpretation Comments Total Protein (test code = 2885-2) 8.4 6.5-8.1 H [facility] IrvingAlbumin2019-04-20 16:54:00* Test Item Value Reference Range Interpretation Comments Albumin (test code = 1751-7) 3.4 3.5-5.0 L [facility] IrvingGlobulin2019-04-20 16:54:00* Test Item Value Reference Range Interpretation Comments Globulin (test code = 32125-4) 5.0 2.3-3.5 H [facility] IrvingAlbumin/Globulin Zsuqj9416-21-97 16:54:00 * Test Item Value Reference Range Interpretation Comments Albumin/Globulin Ratio (test code = 1759-0) 0.7 0.8-2.0 L [facility] IrvingAlkaline Fjapmdezusa9138-85-20 16:54:00* Test Item Value Reference Range Interpretation Comments Alkaline Phosphatase (test code = 6768-6) 108 40-150 [facility] IrvingTotal Trsubomkk3600-67-56 16:54:00* Test Item Value Reference Range Interpretation Comments Total Bilirubin (test code = 1975-2) 0.6 0.2-1.2 [facility] IrvingAspartate Amino Transf (AST/SGOT) 2018-05-29 16:54:00* Test Item Value Reference Range Interpretation Comments Aspartate Amino Transf (AST/SGOT) (test code = Aspartate Amino Transf (AST/SGOT)) 22 5-34 [facility] IrvingAlanine Aminotransferase (ALT/SGPT) 2018-05-29 16:54:00* Test Item Value Reference Range Interpretation Comments Alanine Aminotransferase (ALT/SGPT) (test code = 1742-6) 25 0-55 [facility] IrvingTotal Kadvshh6562-75-52 16:54:00* Test Item Value Reference Range Interpretation Comments Total Protein (test code = 2885-2) 8.4 6.5-8.1 H [facility] IrvingAlbumin2019-04-20 16:54:00* Test Item Value Reference Range Interpretation Comments Albumin (test code = 1751-7) 3.4 3.5-5.0 L [facility] IrvingGlobulin2019-04-20 16:54:00* Test Item Value Reference Range Interpretation Comments Globulin (test code = 35746-1) 5.0 2.3-3.5 H [facility] IrvingAlbumin/Globulin Ilmqr7486-80-84 16:54:00 * Test Item Value Reference Range Interpretation Comments Albumin/Globulin Ratio (test code = 1759-0) 0.7 0.8-2.0 L [facility] IrvingAlkaline Asdysbciiiy2973-86-11 16:54:00* Test Item Value Reference Range Interpretation Comments Alkaline Phosphatase (test code = 6768-6) 108 40-150 [facility] IrvingWhite Blood Ozhlj6182-13-29 16:29:00* Test Item Value Reference Range Interpretation Comments White Blood Count (test code = 6690-2) 11.44 4.8-10.8 H [facility] IrvingRed Blood Bolwr4436-96-07 16:29:00* Test Item Value Reference Range Interpretation Comments Red Blood Count (test code = 789-8) 4.15 3.6-5.1 [facility] IrvingHemoglobin2019-04-20 16:29:00* Test Item Value Reference Range Interpretation Comments Hemoglobin (test code = 76325-1) 10.7 12.0-16.0 L [facility] IrvingHematocrit2019-04-20 16:29:00* Test Item Value Reference Range Interpretation Comments Hematocrit (test code = 4544-3) 34.4 34.2-44.1 [facility] IrvingMean Corpuscular Kbplqx0293-15-21 16:29:00* Test Item Value Reference Range Interpretation Comments Mean Corpuscular Volume (test code = 787-2) 82.9 81-99 [facility] IrvingMean Corpuscular Ntadmtqdhn2299-84-14 16:29:00* Test Item Value Reference Range Interpretation Comments Mean Corpuscular Hemoglobin (test code = 785-6) 25.8 28-32 L [facility] IrvingMean Corpuscular Hemoglobin Concent 2018-05-29 16:29:00* Test Item Value Reference Range Interpretation Comments Mean Corpuscular Hemoglobin Concent (test code = 786-4) 31.1 31-35 [facility] IrvingRed Cell Distribution Xaegh5412-14-23 16:29:00* Test Item Value Reference Range Interpretation Comments Red Cell Distribution Width (test code = 10839-9) 14.8 11.7 -14.4 H [facility] IrvingPlatelet Aardq4712-49-04 16:29:00* Test Item Value Reference Range Interpretation Comments Platelet Count (test code = 777-3) 305 140-360 [facility] IrvingNeutrophils (%) (Auto)2018-05-29 16:29:00 * Test Item Value Reference Range Interpretation Comments Neutrophils (%) (Auto) (test code = 82399-0) 82.6 38.7-80.0 H [facility] IrvingLymphocytes (%) (Auto)2018-05-29 16:29:00 * Test Item Value Reference Range Interpretation Comments Lymphocytes (%) (Auto) (test code = 736-9) 11.8 18.0-39.1 L [facility] IrvingMonocytes (%) (Auto)2018-05-29 16:29:00* Test Item Value Reference Range Interpretation Comments Monocytes (%) (Auto) (test code = 5905-5) 4.6 4.4-11.3 [facility] IrvingEosinophils (%) (Auto)2018-05-29 16:29:00 * Test Item Value Reference Range Interpretation Comments Eosinophils (%) (Auto) (test code = 713-8) 0.3 0.0-6.0 [facility] IrvingBasophils (%) (Auto)2018-05-29 16:29:00* Test Item Value Reference Range Interpretation Comments Basophils (%) (Auto) (test code = 706-2) 0.3 0.0-1.0 [facility] IrvingIM GRANULOCYTES %2018-05-29 16:29:00* Test Item Value Reference Range Interpretation Comments IM GRANULOCYTES % (test code = IM GRANULOCYTES %) 0.4 0.0- 1.0 [facility] IrvingNeutrophils # (Auto)2018-05-29 16:29:00* Test Item Value Reference Range Interpretation Comments Neutrophils # (Auto) (test code = 751-8) 9.4 2.1-6.9 H [facility] IrvingLymphocytes # (Auto)2018-05-29 16:29:00* Test Item Value Reference Range Interpretation Comments Lymphocytes # (Auto) (test code = 08442-5) 1.4 1.0-3.2 [facility] IrvingMonocytes # (Auto)2018-05-29 16:29:00* Test Item Value Reference Range Interpretation Comments Monocytes # (Auto) (test code = 742-7) 0.5 0.2-0.8 [facility] IrvingEosinophils # (Auto)2018-05-29 16:29:00* Test Item Value Reference Range Interpretation Comments Eosinophils # (Auto) (test code = 711-2) 0.0 0.0-0.4 [facility] IrvingBasophils # (Auto)2018-05-29 16:29:00* Test Item Value Reference Range Interpretation Comments Basophils # (Auto) (test code = 704-7) 0.0 0.0-0.1 [facility] IrvingAbsolute Immature Granulocyte (auto 2018-05-29 16:29:00* Test Item Value Reference Range Interpretation Comments Absolute Immature Granulocyte (auto (irena t code = Absolute Immature Granulocyte (auto) 0.05 0-0.1 [facility]PECIAL [facility]ED[facility]ATH FDL4300-50-21 12:30:00 [place] [address] Patient Name: WESLY HUTCHINSON MR #: [id number] : 1960 Age/Sex: 57/F Req #: [id number] Adm Physician: FIGUEROA CARD MD Ordered by: JARET ESPINOSA MD Report #: [id number] [facility] Room[facility]Bed: [facility] Procedure: [id number] RACHAEL/ARPAN BEVERLY PROCEDURE IN ROLLER SKATER Exam Date: Exam Time: REPORT STATUS: Signed Procedure: Ri ght nephrostomy catheter exchange with fluoroscopic guidance Comparison: Ri ght nephrostomy exchange 12/15/2017. Bods Developer: Mode Donald MD Sedation /Medications: Conscious sedation. [...] er was exchanged for a new 10 [place] nephrostomy catheter. Contrast injection confirmed satisfactory positioning. Catheter was secured with suture and overl ber[place] sterile dressing. There were no immediate complications. Impression: Fluoroscopic guided right nephrostomy catheter exchange as above. Signed b y: Dr. Mode Donald MD on 05/17/2018 12:34 PM Dictated By: MODE DONALD MD El ectronically Signed By: MODE DONALD MD on 05/17/18 1234 Transcribed By: DEYANIRA on 05/17/18 1234 COPY TO: JARET ESPINOSA MD IR ZLCBTUY7645-29-34 12:30:00 [place] [address] Patient Name: WESLY HUTCHINSON MR #: [id number] : 1960 Age/Sex: 57/F Req #: [id number] Adm Physician: FIGUEROA CARD MD Ordered by: JARET ESPINOSA MD Report #: [id number] Location: [facility] Room/Bed: [facility] Procedure: [id number] DX/IR CO NSULT Exam Date: Exam Time: REPORT STATUS: Signed Procedure: Right nephrostomy cat heter exchange with fluoroscopic guidance Comparison: Right nephrostomy exc hange 12/15/2017. Bods Developer: Mode Donald MD Sedation/Medications: Consc ious sedation. [...] catheter was exchanged for a new 10 [place] Islander nephrostomy catheter. Contrast injection confirmed satisfact ory positioning. Catheter was secured with suture and overlying sterile dressi ng. There were no immediate complications. Impression: Fluoroscopic guide d right nephrostomy catheter exchange as above. Signed by: Dr. Mode Donald MD on 05/17/2018 12:34 PM Dictated By: MODE DONALD MD 1234 Transcribed By: DEYANIRA on 05/17/18 1234 COPY TO: JARET ESPINOSA MD Blood Gybteqk2737-98-03 12:15:00* Test Item Value Reference Range Interpretation Comments Blood Culture (test code = 00183587) NO GROWTH AFTER 5 DAYS, FINAL REPORT [facility] Haixwlu4493-14-55 12:15:00* Test Item Value Reference Range Interpretation Comments Blood Culture (test code = 14418830) NO GROWTH AFTER 5 DAYS, FINAL REPORT [facility] Pnxlfnt4138-23-08 12:15:00* Test Item Value Reference Range Interpretation Comments Blood Culture (test code = 76610699) NO GROWTH AFTER 5 DAYS, FINAL REPORT [facility] Wrbiexa6745-70-47 12:15:00* Test Item Value Reference Range Interpretation Comments Blood Culture (test code = 37175231) NO GROWTH AFTER 5 DAYS, FINAL REPORT [facility] Yoxsiyq5084-04-92 12:15:00* Test Item Value Reference Range Interpretation Comments Blood Culture (test code = 84072773) NO GROWTH AFTER 5 DAYS, FINAL REPORT [facility] Pqfjzyl3193-35-38 12:15:00* Test Item Value Reference Range Interpretation Comments Blood Culture (test code = 25593740) NO GROWTH AFTER 5 DAYS, FINAL REPORT [facility] Azfoylh5611-55-52 12:15:00* Test Item Value Reference Range Interpretation Comments Blood Culture (test code = 73238301) NO GROWTH AFTER 5 DAYS, FINAL REPORT [facility] Louczfd1536-32-18 12:15:00* Test Item Value Reference Range Interpretation Comments Blood Culture (test code = 39264692) NO GROWTH AFTER 5 DAYS, FINAL REPORT [facility] Wfblq9614-51-66 06:03:00* Test Item Value Reference Range Interpretation Comments Sodium Level (test code = 2951-2) 141 136-145 [facility] Epjdc9042-77-62 06:03:00* Test Item Value Reference Range Interpretation Comments Potassium Level (test code = 2823-3) 3.3 3.5-5.1 L [facility] IrvingChloride Shfzl9271-83-09 06:03:00* Test Item Value Reference Range Interpretation Comments Chloride Level (test code = 2075-0) 108 98-107 H [facility] IrvingCarbon Dioxide Dyrfk2518-39-55 06:03:00* Test Item Value Reference Range Interpretation Comments Carbon Dioxide Level (test code = 2028-9) 25 22-29 [facility] IrvingAnion Gdg1289-75-32 06:03:00* Test Item Value Reference Range Interpretation Comments Anion Gap (test code = 11340-9) 11.3 8-16 [facility] IrvingBlood Urea Pzukcvst2329-37-92 06:03:00* Test Item Value Reference Range Interpretation Comments Blood Urea Nitrogen (test code = 3094-0) 9 7-26 [facility] IrvingCreatinine2019-04-01 06:03:00* Test Item Value Reference Range Interpretation Comments Creatinine (test code = 2160-0) 1.01 0.57-1.11 [facility] IrvingBUN/Creatinine Qdhhb2126-58-26 06:03:00* Test Item Value Reference Range Interpretation Comments BUN/Creatinine Ratio (test code = 3097-3) 9 6-25 [facility] IrvingEstimat Glomerular Filtration Rate 2018-05-10 06:03:00* Test Item Value Reference Range Interpretation Comments Estimat Glomerular Filtration Rate (test code = 061781677) 57 >60 L Ranges were taken from the National Kidney Disease Education Program and the [facility] Kidney Foundation literature.Reference ranges:60 or greater: Pgzjbc75-05 ( for 3 consecutive months): Chronic kidney disease 15 or less: Kidney failureBaylor Scott & White [facility] Center – IrvingGlucose Ltezz6259-83-18 06:03:00* Test Item Value Reference Range Interpretation Comments Glucose Level (test code = YIQ4256) 127 74-118 H [facility] IrvingCalcium Sctzy6717-49-55 06:03:00* Test Item Value Reference Range Interpretation Comments Calcium Level (test code = 84418-9) 9.5 8.4-10.2 [facility] IrvingWhite Blood Ritwa9745-09-22 05:50:00* Test Item Value Reference Range Interpretation Comments White Blood Count (test code = 6690-2) 7.55 4.8-10.8 [facility] IrvingRed Blood Hdmyr2371-87-65 05:50:00* Test Item Value Reference Range Interpretation Comments Red Blood Count (test code = 789-8) 3.99 3.6-5.1 [facility] IrvingHemoglobin2019-04-01 05:50:00* Test Item Value Reference Range Interpretation Comments Hemoglobin (test code = 76269-9) 10.2 12.0-16.0 L [facility] IrvingHematocrit2019-04-01 05:50:00* Test Item Value Reference Range Interpretation Comments Hematocrit (test code = 4544-3) 32.7 34.2-44.1 L [facility] IrvingMean Corpuscular Oajknx2934-91-51 05:50:00* Test Item Value Reference Range Interpretation Comments Mean Corpuscular Volume (test code = 787-2) 82.0 81-99 [facility] IrvingMean Corpuscular Pfowokognh9119-83-03 05:50:00* Test Item Value Reference Range Interpretation Comments Mean Corpuscular Hemoglobin (test code = 785-6) 25.6 28-32 L [facility] IrvingMean Corpuscular Hemoglobin Concent 2018-05-10 05:50:00* Test Item Value Reference Range Interpretation Comments Mean Corpuscular Hemoglobin Concent (test code = 786-4) 31.2 31-35 [facility] IrvingRed Cell Distribution Chqvh3725-03-60 05:50:00* Test Item Value Reference Range Interpretation Comments Red Cell Distribution Width (test code = 68057-3) 13.6 11.7 -14.4 [facility] IrvingPlatelet Ysrvy9324-57-92 05:50:00* Test Item Value Reference Range Interpretation Comments Platelet Count (test code = 777-3) 296 140-360 [facility] IrvingNeutrophils (%) (Auto)2018-05-10 05:50:00 * Test Item Value Reference Range Interpretation Comments Neutrophils (%) (Auto) (test code = 91413-4) 62.3 38.7-80.0 [facility] IrvingLymphocytes (%) (Auto)2018-05-10 05:50:00 * Test Item Value Reference Range Interpretation Comments Lymphocytes (%) (Auto) (test code = 736-9) 28.6 18.0-39.1 [facility] IrvingMonocytes (%) (Auto)2018-05-10 05:50:00* Test Item Value Reference Range Interpretation Comments Monocytes (%) (Auto) (test code = 5905-5) 5.8 4.4-11.3 [facility] IrvingEosinophils (%) (Auto)2018-05-10 05:50:00 * Test Item Value Reference Range Interpretation Comments Eosinophils (%) (Auto) (test code = 713-8) 2.5 0.0-6.0 [facility] IrvingBasophils (%) (Auto)2018-05-10 05:50:00* Test Item Value Reference Range Interpretation Comments Basophils (%) (Auto) (test code = 706-2) 0.5 0.0-1.0 [facility] IrvingIM GRANULOCYTES %2018-05-10 05:50:00* Test Item Value Reference Range Interpretation Comments IM GRANULOCYTES % (test code = IM GRANULOCYTES %) 0.3 0.0- 1.0 [facility] IrvingNeutrophils # (Auto)2018-05-10 05:50:00* Test Item Value Reference Range Interpretation Comments Neutrophils # (Auto) (test code = 751-8) 4.7 2.1-6.9 [facility] IrvingLymphocytes # (Auto)2018-05-10 05:50:00* Test Item Value Reference Range Interpretation Comments Lymphocytes # (Auto) (test code = 91038-8) 2.2 1.0-3.2 [facility] IrvingMonocytes # (Auto)2018-05-10 05:50:00* Test Item Value Reference Range Interpretation Comments Monocytes # (Auto) (test code = 742-7) 0.4 0.2-0.8 [facility] IrvingEosinophils # (Auto)2018-05-10 05:50:00* Test Item Value Reference Range Interpretation Comments Eosinophils # (Auto) (test code = 711-2) 0.2 0.0-0.4 [facility] IrvingBasophils # (Auto)2018-05-10 05:50:00* Test Item Value Reference Range Interpretation Comments Basophils # (Auto) (test code = 704-7) 0.0 0.0-0.1 [facility] IrvingAbsolute Immature Granulocyte (auto 2018-05-10 05:50:00* Test Item Value Reference Range Interpretation Comments Absolute Immature Granulocyte (auto (irena t code = Absolute Immature Granulocyte (auto) 0.02 0-0.1 [facility] Ytgbytr2468-57-47 16:34:00* Test Item Value Reference Range Interpretation Comments Bedside Glucose (test code = 48350-0) 141 70-120 H Meter ID: [id number] [facility] Hospital Glucose 2018-05-09 16:34:00* Test Item Value Reference Range Interpretation Comments Bedside Glucose (test code = 31284-5) 141 70-120 H Meter ID: [id number] Children's Hospital Glucose 2018-05-09 16:34:00* Test Item Value Reference Range Interpretation Comments Bedside Glucose (test code = 96993-4) 141 70-120 H Meter ID: [id number] Children's Hospital Glucose 2018-05-09 16:34:00* Test Item Value Reference Range Interpretation Comments Bedside Glucose (test code = 47072-9) 141 70-120 H Meter ID: [id number] Scott & [facility] Center – IrvingBlood Culture 2018-05-09 12:15:00* Test Item Value Reference Range Interpretation Comments Blood Culture (test code = 56234161) NO GROWTH AFTER 72 HOURS [facility] IrvingUrine Lhckakk4483-46-38 12:03:00* Test Item Value Reference Range Interpretation Comments Urine Culture (test code = 630-4) Organism: PSEUDOMONAS AERUGINOSA [facility]2019-03-30 12:03:00* Test Item Value Reference Range Interpretation Comments Urine Culture (test code = 630-4) Organism: PSEUDOMONAS AERUGINOSA [facility]2019-03-29 09:30:00* Test Item Value Reference Range Interpretation Comments Urine Culture (test code = 630-4) Organism: GRAM NEGATIVE BACILLUS [facility]2019-03-29 09:30:00* Test Item Value Reference Range Interpretation Comments Urine Culture (test code = 630-4) Organism: GRAM NEGATIVE BACILLUS [facility]2019-03-29 09:30:00* Test Item Value Reference Range Interpretation Comments Urine Culture (test code = 630-4) Organism: GRAM NEGATIVE BACILLUS [facility]2019-03-29 09:30:00* Test Item Value Reference Range Interpretation Comments Urine Culture (test code = 630-4) Organism: GRAM NEGATIVE BACILLUS [facility]2019-03-29 09:30:00* Test Item Value Reference Range Interpretation Comments Urine Culture (test code = 630-4) Organism: GRAM NEGATIVE BACILLUS [facility]2019-03-29 09:30:00* Test Item Value Reference Range Interpretation Comments Urine Culture (test code = 630-4) Organism: GRAM NEGATIVE BACILLUS [facility]2019-03-29 09:30:00* Test Item Value Reference Range Interpretation Comments Urine Culture (test code = 630-4) Organism: GRAM NEGATIVE BACILLUS [facility]2019-03-29 09:30:00* Test Item Value Reference Range Interpretation Comments Urine Culture (test code = 630-4) No Result Data Provided [facility]2019-03-29 09:30:00* Test Item Value Reference Range Interpretation Comments Urine Culture (test code = 630-4) No Result Data Provided [facility]2019-03-29 09:30:00* Test Item Value Reference Range Interpretation Comments Urine Culture (test code = 630-4) No Result Data Provided [facility] IrvingUrine Okpheas9367-91-58 09:30:00* Test Item Value Reference Range Interpretation Comments Urine Culture (test code = 630-4) No Result Data Provided [facility] Chorionic Gonadotropin, Qual 2018-05-07 09:05:00* Test Item Value Reference Range Interpretation Comments Human Chorionic Gonadotropin, Qual (test code = 2118-8) NEGATIVE NEGATIVE [facility] Chorionic Gonadotropin, Qual 2018-05-07 09:05:00* Test Item Value Reference Range Interpretation Comments Human Chorionic Gonadotropin, Qual (test code = 2118-8) NEGATIVE NEGATIVE [facility] Chorionic Gonadotropin, Qual 2018-05-07 09:05:00* Test Item Value Reference Range Interpretation Comments Human Chorionic Gonadotropin, Qual (test code = 2118-8) NEGATIVE NEGATIVE [facility] Chorionic Gonadotropin, Qual 2018-05-07 09:05:00* Test Item Value Reference Range Interpretation Comments Human Chorionic Gonadotropin, Qual (test code = 2118-8) NEGATIVE NEGATIVE [facility] IrvingTocastle[facility] Qxdmkkceq1191-47-13 06:06:00* Test Item Value Reference Range Interpretation Comments Total Bilirubin (test code = 1975-2) 0.3 0.2-1.2 [facility] IrvingAspartate Amino Transf (AST/SGOT) 2018-05-07 06:06:00* Test Item Value Reference Range Interpretation Comments Aspartate Amino Transf (AST/SGOT) (test code = Aspartate Amino Transf (AST/SGOT)) 14 5-34 [facility] IrvingAlanine Aminotransferase (ALT/SGPT) 2018-05-07 06:06:00* Test Item Value Reference Range Interpretation Comments Alanine Aminotransferase (ALT/SGPT) (test code = 1742-6) 13 0-55 [facility] Cent[facility]al Pgphkon7451-30-21 06:06:00* Test Item Value Reference Range Interpretation Comments Total Protein (test code = 2885-2) 7.3 6.5-8.1 [facility] IrvingAlbumin2019-03-29 06:06:00* Test Item Value Reference Range Interpretation Comments Albumin (test code = 1751-7) 2.7 3.5-5.0 L [facility] IrvingGlobulin2019-03-29 06:06:00* Test Item Value Reference Range Interpretation Comments Globulin (test code = 98583-2) 4.6 2.3-3.5 H [facility] IrvingAlbumin/Globulin Jxsud8717-30-77 06:06:00 * Test Item Value Reference Range Interpretation Comments Albumin/Globulin Ratio (test code = 1759-0) 0.6 0.8-2.0 L [facility] IrvingAlkaline Kntrieowang4630-26-38 06:06:00* Test Item Value Reference Range Interpretation Comments Alkaline Phosphatase (test code = 6768-6) 87 40-150 [facility] IrvingUrine HZT3272-31-72 13:02:00* Test Item Value Reference Range Interpretation Comments Urine WBC (test code = 5821-4) 21-50 0-5 H [facility] IrvingUrine CWM3140-32-34 13:02:00* Test Item Value Reference Range Interpretation Comments Urine RBC (test code = 93101-7) 6-10 0-5 H [facility] IrvingUrine Yxeocrtb3704-84-12 13:02:00* Test Item Value Reference Range Interpretation Comments Urine Bacteria (test code = 44709-0) FEW NONE [facility] IrvingUrine Epithelial Pfhzm5933-75-97 13:02:00 * Test Item Value Reference Range Interpretation Comments Urine Epithelial Cells (test code = 62029-0) NONE NONE [facility] IrvingABDOMEN-1VIEW (KUB)2018-05-06 12:55:00 [place] [address] Patient Name: WESLY HUTCHINSON MR #: [id number] : 1960 Age/Sex: 57/F Req #: [id number] Adm Physician: Ordered by: LUZ MARINA BONDS MD Report #: [id number] Location: ER Room/Bed: Procedure: [id number] DX/ ABDOMEN-1VIEW (KUB) Exam Date: 05/06/18 Exam Time: 215 REPORT STATUS: Signed Exa m: FITO. Clinical [...] PM Dictated By: EDUAR YOST MD, MD 1258 Transcribed By: DEYANIRA on 05/06/18 1258 COPY TO: LUZ MARINA BONDS MD Urine Oommu9993-81-60 12:47:00* Test Item Value Reference Range Interpretation Comments Urine Color (test code = 5778-6) YELLOW YELLOW [facility] IrvingUrine Xwrunwg6758-18-21 12:47:00* Test Item Value Reference Range Interpretation Comments Urine Clarity (test code = 78193-2) CLOUDY CLEAR H [facility] IrvingUrine Specific Sqnafzo9670-68-44 12:47:00 * Test Item Value Reference Range Interpretation Comments Urine Specific [place] (test code = 5811-5) 1.010 1.010-1.02 5 [facility] IrvingUrine mS2469-70-97 12:47:00* Test Item Value Reference Range Interpretation Comments Urine pH (test code = 63212-4) 7 5-7 [facility] IrvingUrine Leukocyte Lxenkkgu7725-12-56 12:47:00* Test Item Value Reference Range Interpretation Comments Urine Leukocyte Esterase (test code = 5799-2) 1+ NEGATIVE H [facility] Kcqehpk2848-12-98 12:47:00* Test Item Value Reference Range Interpretation Comments Urine Nitrite (test code = 30743-5) POSITIVE NEGATIVE H [facility] IrvingUrine Jfqkigv7664-78-08 12:47:00* Test Item Value Reference Range Interpretation Comments Urine Protein (test code = 5804-0) 2+ NEGATIVE H [facility] Glucose (UA)2018-05-06 12:47:00* Test Item Value Reference Range Interpretation Comments Urine Glucose (UA) (test code = 2349-9) NEGATIVE NEGATIVE [facility] IrvingUrine Mxbomjl9729-53-28 12:47:00* Test Item Value Reference Range Interpretation Comments Urine Ketones (test code = 79883-3) NEGATIVE NEGATIVE [facility] Ipybfrgdudmb4234-77-30 12:47:00* Test Item Value Reference Range Interpretation Comments Urine Urobilinogen (test code = 30077-0) 0.2 0.2-1 [facility] IrvingUrine Tjwgbimol5688-23-71 12:47:00* Test Item Value Reference Range Interpretation Comments Urine Bilirubin (test code = 1978-6) NEGATIVE NEGATIVE [facility] Xlnis8656-71-02 12:47:00* Test Item Value Reference Range Interpretation Comments Urine Blood (test code = 72987-8) 3+ NEGATIVE H [facility] Ufyhmrz7896-22-98 13:56:00* Test Item Value Reference Range Interpretation Comments Urine Culture (test code = 630-4) Organism: PSEUDO FLUORESCENS/PUTI DA [facility] Rulkizn0709-08-05 13:56:00* Test Item Value Reference Range Interpretation Comments Urine Culture (test code = 630-4) Organism: PSEUDO FLUORESCENS/PUTI DA [facility] Chruqtr2363-37-93 13:56:00* Test Item Value Reference Range Interpretation Comments Urine Culture (test code = 630-4) Organism: PSEUDO FLUORESCENS/PUTI DA [facility] MarshallABDOMEN-[facility]VIEW (KUB)2018-03-25 14:44:00 [facility] [address] [address] Patient Name: WESLY HUTCHINSON MR #: [id number] : Age/Sex: 57/F Req #: [id number] Adm Physician: Ordered by: JARET ESPINOSA MD Report #: [id number] Location: OR Room/Bed: Procedure: [id number] D X/ABDOMEN-1VIEW (KUB) Exam Date: 03/25/18 Exam Time: 1315 REPORT STATUS: Signed E xam: Abdominal film Clinical History: Nephrolithiasis Comparison: CT abdomen and pelvis 03/10/2018 DISCUSSION: Right percutaneous nephrostomy and parallel left internal ureteral stents are again noted. Positions are unchang ed relative to insurance account specialist tomogram from comparison CT. Pelvic surgical clips [...] nically Signed By: OSIEL SULLIVAN MD on 03/25/181446 Transcribed By: DEYANIRA on 03/25/181446 COPY TO: JARET ESPINOSA MD Sodium Lhhnx5735-69-62 15:26:00* Test Item Value Reference Range Interpretation Comments Sodium Level (test code = 2951-2) 136 136-145 [facility] IrvingPotassium Umolm9689-72-10 15:26:00* Test Item Value Reference Range Interpretation Comments Potassium Level (test code = 2823-3) 3.5 3.5-5.1 [facility] IrvingChloride Xcvpi7858-60-14 15:26:00* Test Item Value Reference Range Interpretation Comments Chloride Level (test code = 2075-0) 102 98-107 [facility] IrvingCarbon Dioxide Swxos1053-30-38 15:26:00* Test Item Value Reference Range Interpretation Comments Carbon Dioxide Level (test code = 2028-9) 22 22-29 [facility] IrvingAnion Oay6227-48-29 15:26:00* Test Item Value Reference Range Interpretation Comments Anion Gap (test code = 38776-1) 15.5 8-16 [facility] IrvingBlood Urea Wxfxwqar9450-06-65 15:26:00* Test Item Value Reference Range Interpretation Comments Blood Urea Nitrogen (test code = 3094-0) 20 7-26 [facility] IrvingCreatinine2019-01-30 15:26:00* Test Item Value Reference Range Interpretation Comments Creatinine (test code = 2160-0) 1.14 0.57-1.11 H [facility] IrvingBUN/Creatinine Zepmp3318-03-40 15:26:00* Test Item Value Reference Range Interpretation Comments BUN/Creatinine Ratio (test code = 3097-3) 18 6-25 [facility] IrvingEstimat Glomerular Filtration Rate 2018-03-10 15:26:00* Test Item Value Reference Range Interpretation Comments Estimat Glomerular Filtration Rate (test code = 230947432) 49 >60 L Ranges were taken from the National Kidney Disease Education Program and the [facility] Kid[facility] Foundation literature.Reference ranges:60 or greater: Hzppts57-16 ( for 3 consecutive months): Chronic kidney disease 15 or less: Kidney failureBaylor Scott & White Medical Center – IrvingGlucose Snlgq6369-18-82 15:26:00* Test Item Value Reference Range Interpretation Comments Glucose Level (test code = RJC3640) 162 74-118 H [facility] IrvingCalcium Weglm4183-22-90 15:26:00* Test Item Value Reference Range Interpretation Comments Calcium Level (test code = 39052-5) 9.3 8.4-10.2 [facility] IrvingTotal Yttaobvsn9391-80-36 15:26:00* Test Item Value Reference Range Interpretation Comments Total Bilirubin (test code = 1975-2) 0.5 0.2-1.2 [facility] IrvingAspartate Amino Transf (AST/SGOT) 2018-03-10 15:26:00* Test Item Value Reference Range Interpretation Comments Aspartate Amino Transf (AST/SGOT) (test code = Aspartate Amino Transf (AST/SGOT)) 16 5-34 [facility] IrvingAlanine Aminotransferase (ALT/SGPT) 2018-03-10 15:26:00* Test Item Value Reference Range Interpretation Comments Alanine Aminotransferase (ALT/SGPT) (test code = 1742-6) 20 0-55 [facility] IrvingTotal Xherwae6931-60-14 15:26:00* Test Item Value Reference Range Interpretation Comments Total Protein (test code = 2885-2) 7.7 6.5-8.1 [facility] IrvingAlbumin2019-01-30 15:26:00* Test Item Value Reference Range Interpretation Comments Albumin (test code = 1751-7) 3.4 3.5-5.0 L [facility] IrvingGlobulin2019-01-30 15:26:00* Test Item Value Reference Range Interpretation Comments Globulin (test code = 61961-5) 4.3 2.3-3.5 H [facility] IrvingAlbumin/Globulin Ukqfi0232-58-73 15:26:00 * Test Item Value Reference Range Interpretation Comments Albumin/Globulin Ratio (test code = 1759-0) 0.8 0.8-2.0 [facility] IrvingAlkaline Mvvkgddaamn7651-83-94 15:26:00* Test Item Value Reference Range Interpretation Comments Alkaline Phosphatase (test code = 6768-6) 98 40-150 [facility] Dentonodium Nirlp4921-72-08 15:26:00* Test Item Value Reference Range Interpretation Comments Sodium Level (test code = 2951-2) 136 136-145 [facility] IrvingPotassium Ehahm9118-18-01 15:26:00* Test Item Value Reference Range Interpretation Comments Potassium Level (test code = 2823-3) 3.5 3.5-5.1 [facility] IrvingChloride Zhggh1722-99-69 15:26:00* Test Item Value Reference Range Interpretation Comments Chloride Level (test code = 2075-0) 102 98-107 [facility] IrvingCarbon Dioxide Iusnb6847-96-44 15:26:00* Test Item Value Reference Range Interpretation Comments Carbon Dioxide Level (test code = 2028-9) 22 22-29 [facility] IrvingAnion Jal2781-14-49 15:26:00* Test Item Value Reference Range Interpretation Comments Anion Gap (test code = 92628-2) 15.5 8-16 [facility] IrvingBlood Urea Dgxsxfie0409-91-47 15:26:00* Test Item Value Reference Range Interpretation Comments Blood Urea Nitrogen (test code = 3094-0) 20 7-26 [facility] IrvingCreatinine2019-01-30 15:26:00* Test Item Value Reference Range Interpretation Comments Creatinine (test code = 2160-0) 1.14 0.57-1.11 H [facility] IrvingBUN/Creatinine Qnono2210-26-70 15:26:00* Test Item Value Reference Range Interpretation Comments BUN/Creatinine Ratio (test code = 3097-3) 18 6-25 [facility] IrvingEstimat Glomerular Filtration Rate 2018-03-10 15:26:00* Test Item Value Reference Range Interpretation Comments Estimat Glomerular Filtration Rate (test code = 785965138) 49 >60 L Ranges were taken from the National Kidney Disease Education Program and the [facility] literature.Reference ranges:60 or greater: Edhzva31-72 ( for 3 consecutive months): Chronic kidney disease 15 or less: Kidney failureB[facility] IrvingGlucose Zfgkf3124-42-08 15:26:00* Test Item Value Reference Range Interpretation Comments Glucose Level (test code = NWC5236) 162 74-118 H [facility] IrvingCalcium Bhbmx9752-42-38 15:26:00* Test Item Value Reference Range Interpretation Comments Calcium Level (test code = 90521-4) 9.3 8.4-10.2 [facility] IrvingTotal Mucvnrycf6148-36-83 15:26:00* Test Item Value Reference Range Interpretation Comments Total Bilirubin (test code = 1975-2) 0.5 0.2-1.2 [facility] IrvingAspartate Amino Transf (AST/SGOT) 2018-03-10 15:26:00* Test Item Value Reference Range Interpretation Comments Aspartate Amino Transf (AST/SGOT) (test code = Aspartate Amino Transf (AST/SGOT)) 16 5-34 [facility] IrvingAlanine Aminotransferase (ALT/SGPT) 2018-03-10 15:26:00* Test Item Value Reference Range Interpretation Comments Alanine Aminotransferase (ALT/SGPT) (test code = 1742-6) 20 0-55 [facility] IrvingTotal Pnfcgqo0247-40-72 15:26:00* Test Item Value Reference Range Interpretation Comments Total Protein (test code = 2885-2) 7.7 6.5-8.1 [facility] IrvingAlbumin2019-01-30 15:26:00* Test Item Value Reference Range Interpretation Comments Albumin (test code = 1751-7) 3.4 3.5-5.0 L [facility] IrvingGlobulin2019-01-30 15:26:00* Test Item Value Reference Range Interpretation Comments Globulin (test code = 70886-8) 4.3 2.3-3.5 H [facility] IrvingAlbumin/Globulin Ywfxv8744-71-60 15:26:00 * Test Item Value Reference Range Interpretation Comments Albumin/Globulin Ratio (test code = 1759-0) 0.8 0.8-2.0 [facility] IrvingAlkaline Oehzcdbosdb8472-59-57 15:26:00* Test Item Value Reference Range Interpretation Comments Alkaline Phosphatase (test code = 6768-6) 98 40-150 [facility] IrvingUrine VLP3712-90-92 15:23:00* Test Item Value Reference Range Interpretation Comments Urine WBC (test code = 5821-4) 11-20 0-5 H [facility] IrvingUrine IQA9374-30-22 15:23:00* Test Item Value Reference Range Interpretation Comments Urine RBC (test code = 73656-9) 11-20 0-5 H [facility] IrvingUrine Jrweomjm7582-61-12 15:23:00* Test Item Value Reference Range Interpretation Comments Urine Bacteria (test code = 92915-1) MANY NONE H [facility] IrvingUrine Epithelial Cxlxp7383-94-74 15:23:00 * Test Item Value Reference Range Interpretation Comments Urine Epithelial Cells (test code = 47280-5) NONE NONE [facility] IrvingUrine XZU8515-54-75 15:23:00* Test Item Value Reference Range Interpretation Comments Urine WBC (test code = 5821-4) 11-20 0-5 H [facility] IrvingUrine ZQN5699-90-92 15:23:00* Test Item Value Reference Range Interpretation Comments Urine RBC (test code = 10203-0) 11-20 0-5 H [facility] IrvingUrine Qjhfgbmf4767-40-99 15:23:00* Test Item Value Reference Range Interpretation Comments Urine Bacteria (test code = 66910-8) MANY NONE H [facility] IrvingUrine Epithelial Lnfwb7814-31-55 15:23:00 * Test Item Value Reference Range Interpretation Comments Urine Epithelial Cells (test code = 73106-8) NONE NONE [facility] IrvingUrine Zdont7387-69-73 15:15:00* Test Item Value Reference Range Interpretation Comments Urine Color (test code = 5778-6) STRAW YELLOW [facility] IrvingUrine Krghpmj0964-09-25 15:15:00* Test Item Value Reference Range Interpretation Comments Urine Clarity (test code = 00611-7) CLOUDY CLEAR H [facility] IrvingUrine Specific Xroizcd3482-61-13 15:15:00 * Test Item Value Reference Range Interpretation Comments Urine Specific [place] (test code = 5811-5) 1.025 1.010-1.02 5 [facility] IrvingUrine cK4903-66-37 15:15:00* Test Item Value Reference Range Interpretation Comments Urine pH (test code = 47730-4) 6 5-7 [facility] IrvingUrine Leukocyte Phmxnrkd0807-77-32 15:15:00* Test Item Value Reference Range Interpretation Comments Urine Leukocyte Esterase (test code = 5799-2) 2+ NEGATIVE H [facility] IrvingUrine Yddxrjt4225-98-92 15:15:00* Test Item Value Reference Range Interpretation Comments Urine Nitrite (test code = 51346-5) NEGATIVE NEGATIVE [facility] IrvingUrine Usyrqni8109-03-59 15:15:00* Test Item Value Reference Range Interpretation Comments Urine Protein (test code = 5804-0) 2+ NEGATIVE H [facility] IrvingUrine Glucose (UA)2018-03-10 15:15:00* Test Item Value Reference Range Interpretation Comments Urine Glucose (UA) (test code = 2349-9) NEGATIVE NEGATIVE [facility] IrvingUrine Fysjwwx0954-78-32 15:15:00* Test Item Value Reference Range Interpretation Comments Urine Ketones (test code = 51971-8) NEGATIVE NEGATIVE [facility] IrvingUrine Penxgqlnhhys3519-55-84 15:15:00* Test Item Value Reference Range Interpretation Comments Urine Urobilinogen (test code = 91224-5) 0.2 0.2-1 [facility] IrvingUrine Nwzokqpqf0126-66-86 15:15:00* Test Item Value Reference Range Interpretation Comments Urine Bilirubin (test code = 1978-6) NEGATIVE NEGATIVE [facility] IrvingUrine Obtdf0805-44-29 15:15:00* Test Item Value Reference Range Interpretation Comments Urine Blood (test code = 90452-5) 4+ NEGATIVE H [facility] IrvingUrine Twatf4753-22-83 15:15:00* Test Item Value Reference Range Interpretation Comments Urine Color (test code = 5778-6) STRAW YELLOW [facility] IrvingUrine Iekmevu4342-09-79 15:15:00* Test Item Value Reference Range Interpretation Comments Urine Clarity (test code = 05976-2) CLOUDY CLEAR H [facility] IrvingUrine Specific Tqblcvc9627-68-28 15:15:00 * Test Item Value Reference Range Interpretation Comments Urine Specific [place] (test code = 5811-5) 1.025 1.010-1.02 5 [facility] IrvingUrine uJ2961-13-94 15:15:00* Test Item Value Reference Range Interpretation Comments Urine pH (test code = 69674-7) 6 5-7 [facility] IrvingUrine Leukocyte Mdydtnrt5751-65-35 15:15:00* Test Item Value Reference Range Interpretation Comments Urine Leukocyte Esterase (test code = 5799-2) 2+ NEGATIVE H [facility] IrvingUrine Wvfexzy6405-87-09 15:15:00* Test Item Value Reference Range Interpretation Comments Urine Nitrite (test code = 16803-4) NEGATIVE NEGATIVE [facility] IrvingUrine Gtymwar2249-55-16 15:15:00* Test Item Value Reference Range Interpretation Comments Urine Protein (test code = 5804-0) 2+ NEGATIVE H [facility] IrvingUrine Glucose (UA)2018-03-10 15:15:00* Test Item Value Reference Range Interpretation Comments Urine Glucose (UA) (test code = 2349-9) NEGATIVE NEGATIVE [facility] IrvingUrine Pitybkk4097-83-02 15:15:00* Test Item Value Reference Range Interpretation Comments Urine Ketones (test code = 57306-7) NEGATIVE NEGATIVE [facility] IrvingUrine Ldtroptjtwsx1195-04-42 15:15:00* Test Item Value Reference Range Interpretation Comments Urine Urobilinogen (test code = 74316-4) 0.2 0.2-1 [facility] IrvingUrine Gghftjwln4831-14-84 15:15:00* Test Item Value Reference Range Interpretation Comments Urine Bilirubin (test code = 1978-6) NEGATIVE NEGATIVE [facility] IrvingUrine Prldb2035-65-36 15:15:00* Test Item Value Reference Range Interpretation Comments Urine Blood (test code = 76729-6) 4+ NEGATIVE H [facility] IrvingWhite Blood Pasxk9043-54-57 15:12:00* Test Item Value Reference Range Interpretation Comments White Blood Count (test code = 6690-2) 10.96 4.8-10.8 H [facility] IrvingRed Blood Edgdu7477-72-07 15:12:00* Test Item Value Reference Range Interpretation Comments Red Blood Count (test code = 789-8) 4.03 3.6-5.1 [facility] IrvingHemoglobin2019-01-30 15:12:00* Test Item Value Reference Range Interpretation Comments Hemoglobin (test code = 17834-0) 10.2 12.0-16.0 L [facility] IrvingHematocrit2019-01-30 15:12:00* Test Item Value Reference Range Interpretation Comments Hematocrit (test code = 4544-3) 32.6 34.2-44.1 L [facility] IrvingMean Corpuscular Anbmzk2151-66-90 15:12:00* Test Item Value Reference Range Interpretation Comments Mean Corpuscular Volume (test code = 787-2) 80.9 81-99 L [facility] IrvingMean Corpuscular Elemaamres4466-58-24 15:12:00* Test Item Value Reference Range Interpretation Comments Mean Corpuscular Hemoglobin (test code = 785-6) 25.3 28-32 L [facility] IrvingMean Corpuscular Hemoglobin Concent 2018-03-10 15:12:00* Test Item Value Reference Range Interpretation Comments Mean Corpuscular Hemoglobin Concent (test code = 786-4) 31.3 31-35 [facility] IrvingRed Cell Distribution Nkjsr6756-40-92 15:12:00* Test Item Value Reference Range Interpretation Comments Red Cell Distribution Width (test code = 40144-8) 16.8 11.7 -14.4 H [facility] IrvingPlatelet Ajlxx1166-28-29 15:12:00* Test Item Value Reference Range Interpretation Comments Platelet Count (test code = 777-3) 289 140-360 [facility] IrvingNeutrophils (%) (Auto)2018-03-10 15:12:00 * Test Item Value Reference Range Interpretation Comments Neutrophils (%) (Auto) (test code = 18579-8) 76.2 38.7-80.0 [facility] IrvingLymphocytes (%) (Auto)2018-03-10 15:12:00 * Test Item Value Reference Range Interpretation Comments Lymphocytes (%) (Auto) (test code = 736-9) 16.4 18.0-39.1 L [facility] IrvingMonocytes (%) (Auto)2018-03-10 15:12:00* Test Item Value Reference Range Interpretation Comments Monocytes (%) (Auto) (test code = 5905-5) 5.6 4.4-11.3 [facility] IrvingEosinophils (%) (Auto)2018-03-10 15:12:00 * Test Item Value Reference Range Interpretation Comments Eosinophils (%) (Auto) (test code = 713-8) 1.0 0.0-6.0 [facility] IrvingBasophils (%) (Auto)2018-03-10 15:12:00* Test Item Value Reference Range Interpretation Comments Basophils (%) (Auto) (test code = 706-2) 0.5 0.0-1.0 [facility] IrvingIM GRANULOCYTES %2018-03-10 15:12:00* Test Item Value Reference Range Interpretation Comments IM GRANULOCYTES % (test code = IM GRANULOCYTES %) 0.3 0.0- 1.0 [facility] IrvingNeutrophils # (Auto)2018-03-10 15:12:00* Test Item Value Reference Range Interpretation Comments Neutrophils # (Auto) (test code = 751-8) 8.4 2.1-6.9 H [facility] IrvingLymphocytes # (Auto)2018-03-10 15:12:00* Test Item Value Reference Range Interpretation Comments Lymphocytes # (Auto) (test code = 91148-3) 1.8 1.0-3.2 [facility] IrvingMonocytes # (Auto)2018-03-10 15:12:00* Test Item Value Reference Range Interpretation Comments Monocytes # (Auto) (test code = 742-7) 0.6 0.2-0.8 [facility] IrvingEosinophils # (Auto)2018-03-10 15:12:00* Test Item Value Reference Range Interpretation Comments Eosinophils # (Auto) (test code = 711-2) 0.1 0.0-0.4 [facility] IrvingBasophils # (Auto)2018-03-10 15:12:00* Test Item Value Reference Range Interpretation Comments Basophils # (Auto) (test code = 704-7) 0.1 0.0-0.1 [facility] IrvingAbsolute Immature Granulocyte (auto 2018-03-10 15:12:00* Test Item Value Reference Range Interpretation Comments Absolute Immature Granulocyte (auto (irena t code = Absolute Immature Granulocyte (auto) 0.03 0-0.1 [facility] IrvingWhite Blood Bzqyd4867-71-48 15:12:00* Test Item Value Reference Range Interpretation Comments White Blood Count (test code = 6690-2) 10.96 4.8-10.8 H [facility] IrvingRed Blood Cxtjq2322-05-33 15:12:00* Test Item Value Reference Range Interpretation Comments Red Blood Count (test code = 789-8) 4.03 3.6-5.1 [facility] IrvingHemoglobin2019-01-30 15:12:00* Test Item Value Reference Range Interpretation Comments Hemoglobin (test code = 81777-8) 10.2 12.0-16.0 L [facility] IrvingHematocrit2019-01-30 15:12:00* Test Item Value Reference Range Interpretation Comments Hematocrit (test code = 4544-3) 32.6 34.2-44.1 L [facility] IrvingMean Corpuscular Qcchrd5191-70-61 15:12:00* Test Item Value Reference Range Interpretation Comments Mean Corpuscular Volume (test code = 787-2) 80.9 81-99 L [facility] IrvingMean Corpuscular Opmgoetprc6938-49-40 15:12:00* Test Item Value Reference Range Interpretation Comments Mean Corpuscular Hemoglobin (test code = 785-6) 25.3 28-32 L [facility] IrvingMean Corpuscular Hemoglobin Concent 2018-03-10 15:12:00* Test Item Value Reference Range Interpretation Comments Mean Corpuscular Hemoglobin Concent (test code = 786-4) 31.3 31-35 [facility] IrvingRed Cell Distribution Ecsqk9476-02-00 15:12:00* Test Item Value Reference Range Interpretation Comments Red Cell Distribution Width (test code = 64749-3) 16.8 11.7 -14.4 H [facility] IrvingPlatelet Otyen4816-30-48 15:12:00* Test Item Value Reference Range Interpretation Comments Platelet Count (test code = 777-3) 289 140-360 [facility] IrvingNeutrophils (%) (Auto)2018-03-10 15:12:00 * Test Item Value Reference Range Interpretation Comments Neutrophils (%) (Auto) (test code = 03270-3) 76.2 38.7-80.0 [facility] IrvingLymphocytes (%) (Auto)2018-03-10 15:12:00 * Test Item Value Reference Range Interpretation Comments Lymphocytes (%) (Auto) (test code = 736-9) 16.4 18.0-39.1 L [facility] IrvingMonocytes (%) (Auto)2018-03-10 15:12:00* Test Item Value Reference Range Interpretation Comments Monocytes (%) (Auto) (test code = 5905-5) 5.6 4.4-11.3 [facility] IrvingEosinophils (%) (Auto)2018-03-10 15:12:00 * Test Item Value Reference Range Interpretation Comments Eosinophils (%) (Auto) (test code = 713-8) 1.0 0.0-6.0 [facility] IrvingBasophils (%) (Auto)2018-03-10 15:12:00* Test Item Value Reference Range Interpretation Comments Basophils (%) (Auto) (test code = 706-2) 0.5 0.0-1.0 [facility] IrvingIM GRANULOCYTES %2018-03-10 15:12:00* Test Item Value Reference Range Interpretation Comments IM GRANULOCYTES % (test code = IM GRANULOCYTES %) 0.3 0.0- 1.0 [facility] IrvingNeutrophils # (Auto)2018-03-10 15:12:00* Test Item Value Reference Range Interpretation Comments Neutrophils # (Auto) (test code = 751-8) 8.4 2.1-6.9 H [facility] IrvingLymphocytes # (Auto)2018-03-10 15:12:00* Test Item Value Reference Range Interpretation Comments Lymphocytes # (Auto) (test code = 97799-1) 1.8 1.0-3.2 [facility] IrvingMonocytes # (Auto)2018-03-10 15:12:00* Test Item Value Reference Range Interpretation Comments Monocytes # (Auto) (test code = 742-7) 0.6 0.2-0.8 [facility] IrvingEosinophils # (Auto)2018-03-10 15:12:00* Test Item Value Reference Range Interpretation Comments Eosinophils # (Auto) (test code = 711-2) 0.1 0.0-0.4 [facility] IrvingBasophils # (Auto)2018-03-10 15:12:00* Test Item Value Reference Range Interpretation Comments Basophils # (Auto) (test code = 704-7) 0.1 0.0-0.1 [facility] IrvingAbsolute Immature Granulocyte (auto 2018-03-10 15:12:00* Test Item Value Reference Range Interpretation Comments Absolute Immature Granulocyte (auto (irena t code = Absolute Immature Granulocyte (auto) 0.03 0-0.1 [facility] IrvingCT ABDOMEN/PELVIS UG8398-13-00 13:57:00 [facility] [address] [place], [place] [id number] Patient Name: WESLY HUTCHINSON MR #: [id number] : Age/Sex: 57/F [facility] #: [id number] Req #: [id number] Adm Physician: Ordered by: LUZ MARINA BONDS MD Report #: [id number] Location: ER Room/Bed: Procedure: 0130-[address]/CT [...] 2:10 PM Dictated By: ANDERS VARGAS MD 1410 Transcribed By: DEYANIRA on 03/10/18 1410 COPY TO: LUZ MARINA BONDS MD Urine Csapntl8699-31-32 13:22:00* Test Item Value Reference Range Interpretation Comments Urine Culture (test code = 630-4) Organism: PSEUDO FLUORESCENS/PUTI DA [facility] IrvingUrine Pnhbnsx0325-09-68 13:22:00* Test Item Value Reference Range Interpretation Comments Urine Culture (test code = 630-4) Organism: PSEUDO FLUORESCENS/PUTI DA [facility] IrvingUrine Gmlzvjt2655-87-95 13:22:00* Test Item Value Reference Range Interpretation Comments Urine Culture (test code = 630-4) Organism: PSEUDO FLUORESCENS/PUTI DA [facility] IrvingUrine Qsshrom0586-86-74 13:22:00* Test Item Value Reference Range Interpretation Comments Urine Culture (test code = 630-4) Organism: PSEUDO FLUORESCENS/PUTI DA [facility] IrvingUrine Yyuegia5715-45-78 13:22:00* Test Item Value Reference Range Interpretation Comments Urine Culture (test code = 630-4) Organism: PSEUDO FLUORESCENS/PUTI DA [facility] IrvingUrine EPN3577-89-31 15:12:00* Test Item Value Reference Range Interpretation Comments Urine WBC (test code = 5821-4) 21-50 0-5 H [facility] IrvingUrine APE2432-85-40 15:12:00* Test Item Value Reference Range Interpretation Comments Urine RBC (test code = 69984-9) 11-20 0-5 H [facility] IrvingUrine Zcovbmgo7258-47-48 15:12:00* Test Item Value Reference Range Interpretation Comments Urine Bacteria (test code = 05422-0) FEW NONE [facility] IrvingUrine Epithelial Wazfy2696-85-44 15:12:00 * Test Item Value Reference Range Interpretation Comments Urine Epithelial Cells (test code = 13535-1) RARE NONE [facility] IrvingUrine Gdsbq3514-31-30 15:00:00* Test Item Value Reference Range Interpretation Comments Urine Color (test code = 5778-6) YELLOW YELLOW [facility] IrvingUrine Zrehqxd0519-41-78 15:00:00* Test Item Value Reference Range Interpretation Comments Urine Clarity (test code = 35695-8) HAZY CLEAR [facility] IrvingUrine Specific Jexvztp4097-38-78 15:00:00 * Test Item Value Reference Range Interpretation Comments Urine Specific [place] (test code = 5811-5) 1.030 1.010-1.02 5 H [facility] IrvingUrine iG9684-27-91 15:00:00* Test Item Value Reference Range Interpretation Comments Urine pH (test code = 58951-8) 6 5-7 [facility] IrvingUrine Leukocyte Jtsnjphi1729-15-71 15:00:00* Test Item Value Reference Range Interpretation Comments Urine Leukocyte Esterase (test code = 5799-2) 2+ NEGATIVE H [facility] Bwhbuau5733-80-42 15:00:00* Test Item Value Reference Range Interpretation Comments Urine Nitrite (test code = 78826-7) NEGATIVE NEGATIVE [facility] IrvingUrine Jkwmfbb6734-22-93 15:00:00* Test Item Value Reference Range Interpretation Comments Urine Protein (test code = 5804-0) 2+ NEGATIVE H [facility] IrvingUrine Glucose (UA)2018-02-21 15:00:00* Test Item Value Reference Range Interpretation Comments Urine Glucose (UA) (test code = 2349-9) NEGATIVE NEGATIVE [facility] IrvingUrine Jxtjwpq9664-75-98 15:00:00* Test Item Value Reference Range Interpretation Comments Urine Ketones (test code = 05771-2) NEGATIVE NEGATIVE [facility] IrvingUrine Bdrxjxndngvx4287-69-91 15:00:00* Test Item Value Reference Range Interpretation Comments Urine Urobilinogen (test code = 16119-3) 0.2 0.2-1 [facility] Fkrrlluqj7922-59-57 15:00:00* Test Item Value Reference Range Interpretation Comments Urine Bilirubin (test code = 1978-6) NEGATIVE NEGATIVE [facility] Darqp9807-89-15 15:00:00* Test Item Value Reference Range Interpretation Comments Urine Blood (test code = 80711-1) 3+ NEGATIVE H [facility] Sffkrdp0769-66-78 07:47:00* Test Item Value Reference Range Interpretation Comments Urine Culture (test code = 630-4) Organism: VALERIO ALBICANS [facility] Alkrfyg9738-33-23 07:47:00* Test Item Value Reference Range Interpretation Comments Urine Culture (test code = 630-4) Organism: VALERIO ALBICANS [facility] Jceaxkv6247-19-50 07:47:00* Test Item Value Reference Range Interpretation Comments Urine Culture (test code = 630-4) Organism: VALERIO ALBICANS [facility] Uccjnud0627-81-61 07:47:00* Test Item Value Reference Range Interpretation Comments Urine Culture (test code = 630-4) Organism: VALERIO ALBICANS [facility] Pfvua7837-78-68 06:39:00* Test Item Value Reference Range Interpretation Comments Sodium Level (test code = 2951-2) 138 136-145 [facility] IrvingPotassium Fzqxk3419-05-68 06:39:00* Test Item Value Reference Range Interpretation Comments Potassium Level (test code = 2823-3) 4.2 3.5-5.1 [facility] IrvingChloride Ptpzi1164-43-68 06:39:00* Test Item Value Reference Range Interpretation Comments Chloride Level (test code = 2075-0) 105 98-107 [facility] IrvingCarbon Dioxide Reyey7210-62-94 06:39:00* Test Item Value Reference Range Interpretation Comments Carbon Dioxide Level (test code = 2028-9) 26 22-29 [facility] IrvingAnion Wyw8473-94-81 06:39:00* Test Item Value Reference Range Interpretation Comments Anion Gap (test code = 89716-1) 11.2 8-16 [facility] IrvingBlood Urea Ycwawobm7787-82-87 06:39:00* Test Item Value Reference Range Interpretation Comments Blood Urea Nitrogen (test code = 3094-0) 16 7-26 [facility] IrvingCreatinine2018-12-04 06:39:00* Test Item Value Reference Range Interpretation Comments Creatinine (test code = 2160-0) 1.18 0.57-1.11 H [facility] IrvingBUN/Creatinine Qppti2125-28-88 06:39:00* Test Item Value Reference Range Interpretation Comments BUN/Creatinine Ratio (test code = 3097-3) 14 6- [facility] IrvingEstimat Glomerular Filtration Rate 2018-01-12 06:39:00* Test Item Value Reference Range Interpretation Comments Estimat Glomerular Filtration Rate (test code = 257429964) 48 >60 L Ranges were taken from the National Kidney Disease Education Program and the [facility] literature.Reference ranges:60 or greater: Vhlmdo06-93 ( for 3 consecutive months): Chronic kidney disease 15 or less: Kid[facility] failure[facility] IrvingGlucose Ihfuj0493-76-56 06:39:00* Test Item Value Reference Range Interpretation Comments Glucose Level (test code = PEI7244) 246 74-118 H [facility] IrvingCalcium Xykdk9157-37-64 06:39:00* Test Item Value Reference Range Interpretation Comments Calcium Level (test code = 12339-5) 9.4 8.4-10.2 [facility]odium Zvwol2088-31-02 06:39:00* Test Item Value Reference Range Interpretation Comments Sodium Level (test code = 2951-2) 138 136-145 [facility] IrvingPotassium Ldhqu8731-00-31 06:39:00* Test Item Value Reference Range Interpretation Comments Potassium Level (test code = 2823-3) 4.2 3.5-5.1 [facility] IrvingChloride Srqfw5352-47-81 06:39:00* Test Item Value Reference Range Interpretation Comments Chloride Level (test code = 2075-0) 105 98-107 [facility] IrvingCarbon Dioxide Cleak6002-02-13 06:39:00* Test Item Value Reference Range Interpretation Comments Carbon Dioxide Level (test code = 2028-9) 26 22-29 [facility] IrvingAnion Npn1817-82-76 06:39:00* Test Item Value Reference Range Interpretation Comments Anion Gap (test code = 63802-5) 11.2 8-16 [facility] IrvingBlood Urea Awunjtuf3152-51-69 06:39:00* Test Item Value Reference Range Interpretation Comments Blood Urea Nitrogen (test code = 3094-0) 16 7-26 [facility] IrvingCreatinine2018-12-04 06:39:00* Test Item Value Reference Range Interpretation Comments Creatinine (test code = 2160-0) 1.18 0.57-1.11 [facility] IrvingBUN/Creatinine Agroz7823-63-41 06:39:00* Test Item Value Reference Range Interpretation Comments BUN/Creatinine Ratio (test code = 3097-3) 14 6- [facility] IrvingEstimat Glomerular Filtration Rate 2018-01-12 06:39:00* Test Item Value Reference Range Interpretation Comments Estimat Glomerular Filtration Rate (test code = 221890437) 48 >60 L Ranges were taken from the National Kidney Disease Education Program and the [facility] literature.Reference ranges:60 or greater: Jjxpmr68-78 ( for 3 consecutive months): Chronic kidney disease 15 or less: Kid[facility] failureB[facility] – IrvingGlucose Ibgvz1573-63-11 06:39:00* Test Item Value Reference Range Interpretation Comments Glucose Level (test code = PKT6382) 246 74-118 [facility] IrvingCalcium Phbug4387-38-65 06:39:00* Test Item Value Reference Range Interpretation Comments Calcium Level (test code = 36094-9) 9.4 8.4-10.2 [facility] IrvingWhite Blood Tzdgl2077-40-57 06:35:00* Test Item Value Reference Range Interpretation Comments White Blood Count (test code = 6690-2) 12.70 4.8-10.8 H [facility] IrvingRed Blood Xkcvi2284-17-70 06:35:00* Test Item Value Reference Range Interpretation Comments Red Blood Count (test code = 789-8) 3.76 3.6-5.1 [facility] IrvingHemoglobin2018-12-04 06:35:00* Test Item Value Reference Range Interpretation Comments Hemoglobin (test code = 04047-2) 9.4 12.0-16.0 L [facility] IrvingHematocrit2018-12-04 06:35:00* Test Item Value Reference Range Interpretation Comments Hematocrit (test code = 4544-3) 30.2 34.2-44.1 L [facility] IrvingMean Corpuscular Rpdqvh7713-40-76 06:35:00* Test Item Value Reference Range Interpretation Comments Mean Corpuscular Volume (test code = 787-2) 80.3 81-99 L [facility] IrvingMean Corpuscular Rlhkyuamuy4409-80-52 06:35:00* Test Item Value Reference Range Interpretation Comments Mean Corpuscular Hemoglobin (test code = 785-6) 25.0 28-32 L [facility] IrvingMean Corpuscular Hemoglobin Concent 2018-01-12 06:35:00* Test Item Value Reference Range Interpretation Comments Mean Corpuscular Hemoglobin Concent (test code = 786-4) 31.1 31-35 [facility] IrvingRed Cell Distribution Jshfj7396-62-04 06:35:00* Test Item Value Reference Range Interpretation Comments Red Cell Distribution Width (test code = 70414-4) 15.5 11.7 -14.4 H [facility] IrvingPlatelet Yzgpk3685-12-75 06:35:00* Test Item Value Reference Range Interpretation Comments Platelet Count (test code = 777-3) 336 140-360 [facility] IrvingNeutrophils (%) (Auto)2018-01-12 06:35:00 * Test Item Value Reference Range Interpretation Comments Neutrophils (%) (Auto) (test code = 08624-8) 80.0 38.7-80.0 [facility] IrvingLymphocytes (%) (Auto)2018-01-12 06:35:00 * Test Item Value Reference Range Interpretation Comments Lymphocytes (%) (Auto) (test code = 736-9) 13.9 18.0-39.1 L [facility] IrvingMonocytes (%) (Auto)2018-01-12 06:35:00* Test Item Value Reference Range Interpretation Comments Monocytes (%) (Auto) (test code = 5905-5) 4.7 4.4-11.3 [facility] IrvingEosinophils (%) (Auto)2018-01-12 06:35:00 * Test Item Value Reference Range Interpretation Comments Eosinophils (%) (Auto) (test code = 713-8) 0.1 0.0-6.0 [facility] IrvingBasophils (%) (Auto)2018-01-12 06:35:00* Test Item Value Reference Range Interpretation Comments Basophils (%) (Auto) (test code = 706-2) 0.3 0.0-1.0 [facility] IrvingIM GRANULOCYTES %2018-01-12 06:35:00* Test Item Value Reference Range Interpretation Comments IM GRANULOCYTES % (test code = IM GRANULOCYTES %) 1.0 0.0- 1.0 [facility] IrvingNeutrophils # (Auto)2018-01-12 06:35:00* Test Item Value Reference Range Interpretation Comments Neutrophils # (Auto) (test code = 751-8) 10.2 2.1-6.9 H [facility] IrvingLymphocytes # (Auto)2018-01-12 06:35:00* Test Item Value Reference Range Interpretation Comments Lymphocytes # (Auto) (test code = 33920-4) 1.8 1.0-3.2 [facility] IrvingMonocytes # (Auto)2018-01-12 06:35:00* Test Item Value Reference Range Interpretation Comments Monocytes # (Auto) (test code = 742-7) 0.6 0.2-0.8 [facility] IrvingEosinophils # (Auto)2018-01-12 06:35:00* Test Item Value Reference Range Interpretation Comments Eosinophils # (Auto) (test code = 711-2) 0.0 0.0-0.4 [facility] IrvingBasophils # (Auto)2018-01-12 06:35:00* Test Item Value Reference Range Interpretation Comments Basophils # (Auto) (test code = 704-7) 0.0 0.0-0.1 [facility] IrvingAbsolute Immature Granulocyte (auto 2018-01-12 06:35:00* Test Item Value Reference Range Interpretation Comments Absolute Immature Granulocyte (auto (irena t code = Absolute Immature Granulocyte (auto) 0.13 0-0.1 H [facility] IrvingWhite Blood Ormhk5710-09-05 06:35:00* Test Item Value Reference Range Interpretation Comments White Blood Count (test code = 6690-2) 12.70 4.8-10.8 H [facility] IrvingRed Blood Luchp4259-43-51 06:35:00* Test Item Value Reference Range Interpretation Comments Red Blood Count (test code = 789-8) 3.76 3.6-5.1 [facility] IrvingHemoglobin2018-12-04 06:35:00* Test Item Value Reference Range Interpretation Comments Hemoglobin (test code = 70404-4) 9.4 12.0-16.0 L [facility] IrvingHematocrit2018-12-04 06:35:00* Test Item Value Reference Range Interpretation Comments Hematocrit (test code = 4544-3) 30.2 34.2-44.1 L [facility] IrvingMean Corpuscular Scvgjq0567-05-99 06:35:00* Test Item Value Reference Range Interpretation Comments Mean Corpuscular Volume (test code = 787-2) 80.3 81-99 L [facility] IrvingMean Corpuscular Nvupdkapjm5318-39-69 06:35:00* Test Item Value Reference Range Interpretation Comments Mean Corpuscular Hemoglobin (test code = 785-6) 25.0 28-32 L [facility] IrvingMean Corpuscular Hemoglobin Concent 2018-01-12 06:35:00* Test Item Value Reference Range Interpretation Comments Mean Corpuscular Hemoglobin Concent (test code = 786-4) 31.1 31-35 [facility] IrvingRed Cell Distribution Crkhe4754-92-92 06:35:00* Test Item Value Reference Range Interpretation Comments Red Cell Distribution Width (test code = 97649-9) 15.5 11.7 -14.4 H [facility] IrvingPlatelet Yozeg5928-12-18 06:35:00* Test Item Value Reference Range Interpretation Comments Platelet Count (test code = 777-3) 336 140-360 [facility] IrvingNeutrophils (%) (Auto)2018-01-12 06:35:00 * Test Item Value Reference Range Interpretation Comments Neutrophils (%) (Auto) (test code = 34582-0) 80.0 38.7-80.0 [facility] IrvingLymphocytes (%) (Auto)2018-01-12 06:35:00 * Test Item Value Reference Range Interpretation Comments Lymphocytes (%) (Auto) (test code = 736-9) 13.9 18.0-39.1 L [facility] IrvingMonocytes (%) (Auto)2018-01-12 06:35:00* Test Item Value Reference Range Interpretation Comments Monocytes (%) (Auto) (test code = 5905-5) 4.7 4.4-11.3 [facility] IrvingEosinophils (%) (Auto)2018-01-12 06:35:00 * Test Item Value Reference Range Interpretation Comments Eosinophils (%) (Auto) (test code = 713-8) 0.1 0.0-6.0 [facility] IrvingBasophils (%) (Auto)2018-01-12 06:35:00* Test Item Value Reference Range Interpretation Comments Basophils (%) (Auto) (test code = 706-2) 0.3 0.0-1.0 [facility] IrvingIM GRANULOCYTES %2018-01-12 06:35:00* Test Item Value Reference Range Interpretation Comments IM GRANULOCYTES % (test code = IM GRANULOCYTES %) 1.0 0.0- 1.0 [facility] IrvingNeutrophils # (Auto)2018-01-12 06:35:00* Test Item Value Reference Range Interpretation Comments Neutrophils # (Auto) (test code = 751-8) 10.2 2.1-6.9 H [facility] IrvingLymphocytes # (Auto)2018-01-12 06:35:00* Test Item Value Reference Range Interpretation Comments Lymphocytes # (Auto) (test code = 92029-1) 1.8 1.0-3.2 [facility] IrvingMonocytes # (Auto)2018-01-12 06:35:00* Test Item Value Reference Range Interpretation Comments Monocytes # (Auto) (test code = 742-7) 0.6 0.2-0.8 [facility] IrvingEosinophils # (Auto)2018-01-12 06:35:00* Test Item Value Reference Range Interpretation Comments Eosinophils # (Auto) (test code = 711-2) 0.0 0.0-0.4 [facility] IrvingBasophils # (Auto)2018-01-12 06:35:00* Test Item Value Reference Range Interpretation Comments Basophils # (Auto) (test code = 704-7) 0.0 0.0-0.1 [facility] IrvingAbsolute Immature Granulocyte (auto 2018-01-12 06:35:00* Test Item Value Reference Range Interpretation Comments Absolute Immature Granulocyte (auto (irena t code = Absolute Immature Granulocyte (auto) 0.13 0-0.1 H [facility] IrvingTotal Rfzycnpzi2691-45-74 20:34:00* Test Item Value Reference Range Interpretation Comments Total Bilirubin (test code = 1975-2) 0.2 0.2-1.2 [facility] IrvingAspartate Amino Transf (AST/SGOT) 2018-01-08 20:34:00* Test Item Value Reference Range Interpretation Comments Aspartate Amino Transf (AST/SGOT) (test code = Aspartate Amino Transf (AST/SGOT)) 28 5-34 [facility] IrvingAlanine Aminotransferase (ALT/SGPT) 2018-01-08 20:34:00* Test Item Value Reference Range Interpretation Comments Alanine Aminotransferase (ALT/SGPT) (test code = 1742-6) 25 0-55 [facility] IrvingTotal Kfbyzat9476-71-40 20:34:00* Test Item Value Reference Range Interpretation Comments Total Protein (test code = 2885-2) 9.4 6.5-8.1 H [facility] IrvingAlbumin2018-11-30 20:34:00* Test Item Value Reference Range Interpretation Comments Albumin (test code = 1751-7) 3.4 3.5-5.0 L [facility] IrvingGlobulin2018-11-30 20:34:00* Test Item Value Reference Range Interpretation Comments Globulin (test code = 39706-9) 6.0 2.3-3.5 H [facility] IrvingAlbumin/Globulin Jodeu8156-18-47 20:34:00 * Test Item Value Reference Range Interpretation Comments Albumin/Globulin Ratio (test code = 1759-0) 0.6 0.8-2.0 L [facility] IrvingAlkaline Aeynizgbmyi3828-23-28 20:34:00* Test Item Value Reference Range Interpretation Comments Alkaline Phosphatase (test code = 6768-6) 120 40-150 [facility] IrvingTotal Exezdgojk7000-29-96 20:34:00* Test Item Value Reference Range Interpretation Comments Total Bilirubin (test code = 1975-2) 0.2 0.2-1.2 [facility] IrvingAspartate Amino Transf (AST/SGOT) 2018-01-08 20:34:00* Test Item Value Reference Range Interpretation Comments Aspartate Amino Transf (AST/SGOT) (test code = Aspartate Amino Transf (AST/SGOT)) 28 5-34 [facility] IrvingAlanine Aminotransferase (ALT/SGPT) 2018-01-08 20:34:00* Test Item Value Reference Range Interpretation Comments Alanine Aminotransferase (ALT/SGPT) (test code = 1742-6) 25 0-55 [facility] IrvingTocastle[facility] Ysqfohk6533-28-09 20:34:00* Test Item Value Reference Range Interpretation Comments Total Protein (test code = 2885-2) 9.4 6.5-8.1 H [facility] IrvingAlbumin2018-11-30 20:34:00* Test Item Value Reference Range Interpretation Comments Albumin (test code = 1751-7) 3.4 3.5-5.0 L [facility] IrvingGlobulin2018-11-30 20:34:00* Test Item Value Reference Range Interpretation Comments Globulin (test code = 77925-5) 6.0 2.3-3.5 H [facility] IrvingAlbumin/Globulin Ifkmv2735-42-53 20:34:00 * Test Item Value Reference Range Interpretation Comments Albumin/Globulin Ratio (test code = 1759-0) 0.6 0.8-2.0 L [facility] IrvingAlkaline Mwglbserbmg5727-91-19 20:34:00* Test Item Value Reference Range Interpretation Comments Alkaline Phosphatase (test code = 6768-6) 120 40-150 [facility] IrvingUrine Xcexm6374-64-17 20:33:00* Test Item Value Reference Range Interpretation Comments Urine Color (test code = 5778-6) YELLOW YELLOW [facility] IrvingUrine Keebzfh4250-62-63 20:33:00* Test Item Value Reference Range Interpretation Comments Urine Clarity (test code = 18157-8) HAZY CLEAR [facility] IrvingUrine Specific Nevcwmj5415-54-84 20:33:00 * Test Item Value Reference Range Interpretation Comments Urine Specific [place] (test code = 5811-5) 1.010 1.010-1.02 5 [facility] IrvingUrine qL9151-77-57 20:33:00* Test Item Value Reference Range Interpretation Comments Urine pH (test code = 53543-9) 7 5-7 [facility] IrvingUrine Leukocyte Zpiycutl9322-79-54 20:33:00* Test Item Value Reference Range Interpretation Comments Urine Leukocyte Esterase (test code = 5799-2) 2+ NEGATIVE H [facility] IrvingUrine Toiodzl2987-55-35 20:33:00* Test Item Value Reference Range Interpretation Comments Urine Nitrite (test code = 83730-2) NEGATIVE NEGATIVE [facility] IrvingUrine Bedymfs2040-92-66 20:33:00* Test Item Value Reference Range Interpretation Comments Urine Protein (test code = 5804-0) 2+ NEGATIVE H [facility] IrvingUrine Glucose (UA)2018-01-08 20:33:00* Test Item Value Reference Range Interpretation Comments Urine Glucose (UA) (test code = 2349-9) NEGATIVE NEGATIVE [facility] IrvingUrine Qemyglp7922-26-39 20:33:00* Test Item Value Reference Range Interpretation Comments Urine Ketones (test code = 59255-4) NEGATIVE NEGATIVE [facility] IrvingUrine Tosymbusfzkl0295-11-30 20:33:00* Test Item Value Reference Range Interpretation Comments Urine Urobilinogen (test code = 69413-8) 0.2 0.2-1 [facility] IrvingUrine Zlcddbcua5632-33-27 20:33:00* Test Item Value Reference Range Interpretation Comments Urine Bilirubin (test code = 1978-6) NEGATIVE NEGATIVE [facility] IrvingUrine Zlkzw1117-14-51 20:33:00* Test Item Value Reference Range Interpretation Comments Urine Blood (test code = 92921-7) 2+ NEGATIVE H [facility] IrvingUrine DXY8689-05-27 20:33:00* Test Item Value Reference Range Interpretation Comments Urine WBC (test code = 5821-4) >50 0-5 H [facility] IrvingUrine FEN3025-01-79 20:33:00* Test Item Value Reference Range Interpretation Comments Urine RBC (test code = 47707-0) 11-20 0-5 H [facility] IrvingUrine Chqsmlyd9976-42-20 20:33:00* Test Item Value Reference Range Interpretation Comments Urine Bacteria (test code = 35655-9) MANY NONE H [facility] IrvingUrine Epithelial Rrrag4754-17-75 20:33:00 * Test Item Value Reference Range Interpretation Comments Urine Epithelial Cells (test code = 92769-6) NONE NONE [facility] IrvingCHEST SINGLE (NOT PORTABLE)2017-12-18 18:00:00 [facility] [address] [place] [address] Patient Name: WESLY HUTCHINSON MR #: [id number] : 1960 Age/Sex: 57/F Req #: [id number] Adm Physician: Ordered by: LIZ MUÑIZ MD Report #: [id number] Location: ER Room/Bed: Procedure: [id number] 6 DX/CHEST [...] COPY TO: LIZ MUÑIZ MD NEPHROSTOMY CATHETER RRIKAHBC4180-56-70 07:05:00 [place] [address] Patient Name: WESLY HUTCHINSON MR #: [id number] : 1960 Age/Sex: 57/F Req #: [id number] Adm Physician: VINNY RENDON MD Ordered by: JARET ESPINOSA MD Report #: [id number] Location: MED/SURG2 Room/Bed: [facility] Procedure: [id number] DX/NEPHROSTOMY CATHETER EXCHANGE Exam Date: Exam Ti [...] placed through the catheter. A new 10 [place] Islander all-purpose drainage catheter was then placed into the renal pelvis. Contrast injection confirms a ppropriate position. Catheter was secured to the skin with a sterile dressing . Impression: Successful right percutaneous nephrostomy catheter excha nge. Signed by: Dr. Brendon Chappell DO on 12/18/2017 7:11 AM Dictated By: BRENDON CHAPPELL DO 071 1 Transcribed By: DEYANIRA on 12/18/17 0711 COPY TO: JARET ESPINOSA MD Blood Tayosah8400-81-57 16:51:00* Test Item Value Reference Range Interpretation Comments Blood Culture (test code = 50707523) NO GROWTH AFTER 5 DAYS, FINAL REPORT [facility] IrvingBlood Ilzehsz6661-75-39 16:51:00* Test Item Value Reference Range Interpretation Comments Blood Culture (test code = 39792519) NO GROWTH AFTER 5 DAYS, FINAL REPORT [facility] Wmsdbhq2985-00-59 16:51:00* Test Item Value Reference Range Interpretation Comments Blood Culture (test code = 75309494) NO GROWTH AFTER 5 DAYS, FINAL REPORT [facility]2018-11-06 16:51:00* Test Item Value Reference Range Interpretation Comments Blood Culture (test code = 77903416) NO GROWTH AFTER 5 DAYS, FINAL REPORT [facility]2018-11-05 13:21:00* Test Item Value Reference Range Interpretation Comments Urine Culture (test code = 630-4) Organism: ESCHERICHIA COLI-ESBL [facility]2018-11-05 13:21:00* Test Item Value Reference Range Interpretation Comments Urine Culture (test code = 630-4) Organism: ESCHERICHIA COLI-ESBL [facility]2018-11-05 13:21:00* Test Item Value Reference Range Interpretation Comments Urine Culture (test code = 630-4) Organism: ESCHERICHIA COLI-ESBL [facility]2018-11-05 13:21:00* Test Item Value Reference Range Interpretation Comments Urine Culture (test code = 630-4) Organism: ESCHERICHIA COLI-ESBL [facility]2018-11-02 19:12:00* Test Item Value Reference Range Interpretation Comments Magnesium Level (test code = 53155-3) 1.7 1.3-2.1 [facility] Mgrxy1306-25-45 19:12:00* Test Item Value Reference Range Interpretation Comments Magnesium Level (test code = 15458-2) 1.7 1.3-2.1 [facility] Nxxbb8399-44-66 19:12:00* Test Item Value Reference Range Interpretation Comments Magnesium Level (test code = 31863-1) 1.7 1.3-2.1 [facility]2018-11-02 19:12:00* Test Item Value Reference Range Interpretation Comments Magnesium Level (test code = 17044-2) 1.7 1.3-2.1 [facility]2018-11-02 19:12:00* Test Item Value Reference Range Interpretation Comments Magnesium Level (test code = 83138-4) 1.7 1.3-2.1 [facility]2018-11-02 19:12:00* Test Item Value Reference Range Interpretation Comments Magnesium Level (test code = 91636-8) 1.7 1.3-2.1 [facility]2018-11-02 19:12:00* Test Item Value Reference Range Interpretation Comments Magnesium Level (test code = 89921-9) 1.7 1.3-2.1 [facility]2018-11-02 19:12:00* Test Item Value Reference Range Interpretation Comments Magnesium Level (test code = 33837-1) 1.7 1.3-2.1 [facility]2018-11-02 19:12:00* Test Item Value Reference Range Interpretation Comments Magnesium Level (test code = 09060-2) 1.7 1.3-2.1 [facility] Acid Cwift5680-20-04 17:57:00* Test Item Value Reference Range Interpretation Comments Lactic Acid Level (test code = Lactic Acid Level) 17.4 4.5- 19.8 [facility] Gfgln2497-97-18 17:57:00* Test Item Value Reference Range Interpretation Comments Lactic Acid Level (test code = Lactic Acid Level) 17.4 4.5- 19.8 [facility] Hzict0590-46-86 17:57:00* Test Item Value Reference Range Interpretation Comments Lactic Acid Level (test code = Lactic Acid Level) 17.4 4.5- 19.8 [facility] Acid Slrpo3640-19-49 17:57:00* Test Item Value Reference Range Interpretation Comments Lactic Acid Level (test code = Lactic Acid Level) 17.4 4.5- 19.8 [facility] Layjt0694-43-07 17:57:00* Test Item Value Reference Range Interpretation Comments Lactic Acid Level (test code = Lactic Acid Level) 17.4 4.5- 19.8 [facility] Dvljw8046-63-78 17:57:00* Test Item Value Reference Range Interpretation Comments Lactic Acid Level (test code = Lactic Acid Level) 17.4 4.5- 19.8 [facility] Ptacg2876-34-03 17:57:00* Test Item Value Reference Range Interpretation Comments Lactic Acid Level (test code = Lactic Acid Level) 17.4 4.5- 19.8 [facility] Hhdhy3844-55-68 17:57:00* Test Item Value Reference Range Interpretation Comments Lactic Acid Level (test code = Lactic Acid Level) 17.4 4.5- 19.8 [facility] Vxohp9208-98-03 17:57:00* Test Item Value Reference Range Interpretation Comments Lactic Acid Level (test code = Lactic Acid Level) 17.4 4.5- 19.8 [facility]2018-11-01 14:26:00* Test Item Value Reference Range Interpretation Comments Urine Yeast (test code = 30244-9) FEW [facility] Qprrt9250-09-72 14:26:00* Test Item Value Reference Range Interpretation Comments Urine Yeast (test code = 03785-0) FEW [facility] Csiii3881-03-79 14:26:00* Test Item Value Reference Range Interpretation Comments Urine Yeast (test code = 69250-2) FEW [facility] Utqyp2813-67-71 14:26:00* Test Item Value Reference Range Interpretation Comments Urine Yeast (test code = 00929-9) FEW [facility] Tyuwf5182-22-92 14:26:00* Test Item Value Reference Range Interpretation Comments Urine Yeast (test code = 70002-6) FEW [facility] Cognn7152-19-52 14:26:00* Test Item Value Reference Range Interpretation Comments Urine Yeast (test code = 86477-9) FEW NONE [facility] Znskw2139-26-16 14:26:00* Test Item Value Reference Range Interpretation Comments Urine Yeast (test code = 54310-6) FEW NONE [facility] Nzjot1479-19-23 14:26:00* Test Item Value Reference Range Interpretation Comments Urine Yeast (test code = 69380-0) FEW NONE [facility] Btvyg9318-90-43 14:26:00* Test Item Value Reference Range Interpretation Comments Urine Yeast (test code = 45672-3) FEW NONE [facility] ABDOMEN/PELVIS BV6473-85-22 12:56:00 [facility] [address] [place] [address] Patient Name: WESLY HUTCHINSON MR #: [id number] : Age/Sex: 57/F Req #: [id number] Adm Physician: Ordered by: SAMEER LOBO MD Report #: [id number] Location: ER Room/Bed: Procedure: 1101 -0019 CT/CT [...] the right renal pelvis. Left double-J ureteral ahmet nt in adequate position. Catheter within the [...] 12/10/2017 1:09 PM Dictated By: EDUAR Flowers [id number] Transcribed B y: DEYANIRA on 12/10/17 4036 COPY TO: SAMEER LOBO MD Urine Uqtqfcj8917-31-48 14:55:00* Test Item Value Reference Range Interpretation Comments Urine Culture (test code = 630-4) Organism: PSEUDOMONAS AERUGINOSA [facility]2018-10-25 14:55:00* Test Item Value Reference Range Interpretation Comments Urine Culture (test code = 630-4) Organism: PSEUDOMONAS AERUGINOSA [facility]2018-10-25 14:55:00* Test Item Value Reference Range Interpretation Comments Urine Culture (test code = 630-4) Organism: PSEUDOMONAS AERUGINOSA [facility]2018-10-25 14:55:00* Test Item Value Reference Range Interpretation Comments Urine Culture (test code = 630-4) Organism: PSEUDOMONAS AERUGINOSA [facility]2018-10-25 14:52:00* Test Item Value Reference Range Interpretation Comments Urine Culture (test code = 630-4) Organism: PSEUDOMONAS AERUGINOSA [facility]2018-10-25 14:52:00* Test Item Value Reference Range Interpretation Comments Urine Culture (test code = 630-4) Organism: PSEUDOMONAS AERUGINOSA [facility]2018-10-25 14:52:00* Test Item Value Reference Range Interpretation Comments Urine Culture (test code = 630-4) Organism: PSEUDOMONAS AERUGINOSA [facility]2018-10-25 14:52:00* Test Item Value Reference Range Interpretation Comments Urine Culture (test code = 630-4) Organism: PSEUDOMONAS AERUGINOSA [facility]2018-10-25 14:52:00* Test Item Value Reference Range Interpretation Comments Urine Culture (test code = 630-4) Organism: PSEUDOMONAS AERUGINOSA [facility]2018-10-25 14:52:00* Test Item Value Reference Range Interpretation Comments Urine Culture (test code = 630-4) Organism: PSEUDOMONAS AERUGINOSA [facility]2018-10-25 14:52:00* Test Item Value Reference Range Interpretation Comments Urine Culture (test code = 630-4) Organism: PSEUDOMONAS AERUGINOSA [facility]2018-10-25 14:52:00* Test Item Value Reference Range Interpretation Comments Urine Culture (test code = 630-4) Organism: PSEUDOMONAS AERUGINOSA [facility] Odmzxwv4112-47-01 14:52:00* Test Item Value Reference Range Interpretation Comments Urine Culture (test code = 630-4) Organism: PSEUDOMONAS AERUGINOSA [facility] Irving[facility] Hhncb2908-45-48 19:16:00* Test Item Value Reference Range Interpretation Comments Amylase Level (test code = 1798-8) 46 [facility] Irving[facility]2018-10-22 19:16:00* Test Item Value Reference Range Interpretation Comments Lipase (test code = 3040-3) [facility] Irving[facility] Yjtvt0167-13-91 19:16:00* Test Item Value Reference Range Interpretation Comments Amylase Level (test code = 1798-8) [facility] 19:16:00* Test Item Value Reference Range Interpretation Comments Lipase (test code = 3040-3) [facility] Qyvnp3712-15-91 19:16:00* Test Item Value Reference Range Interpretation Comments Amylase Level (test code = 1798-8) 46 [facility]2018-10-22 19:16:00* Test Item Value Reference Range Interpretation Comments Lipase (test code = 3040-3) [facility] Irving[facility] Lbehm3169-11-40 19:16:00* Test Item Value Reference Range Interpretation Comments Amylase Level (test code = 1798-8) 46 [facility]2018-10-22 19:16:00* Test Item Value Reference Range Interpretation Comments Lipase (test code = 3040-3) [facility] Irving[facility] Echtw3416-11-62 19:16:00* Test Item Value Reference Range Interpretation Comments Amylase Level (test code = 1798-8) 46 [facility]2018-10-22 19:16:00* Test Item Value Reference Range Interpretation Comments Lipase (test code = 3040-3) [facility] Zpjic6807-74-13 19:16:00* Test Item Value Reference Range Interpretation Comments Amylase Level (test code = 1798-8) 46 125 [facility]2018-10-22 19:16:00* Test Item Value Reference Range Interpretation Comments Lipase (test code = 3040-3) [facility] Irving[facility] Cgvfg8708-98-11 19:16:00* Test Item Value Reference Range Interpretation Comments Amylase Level (test code = 1798-8) 46 125 [facility]2018-10-22 19:16:00* Test Item Value Reference Range Interpretation Comments Lipase (test code = 3040-3) [facility] Zzsws1152-65-24 19:16:00* Test Item Value Reference Range Interpretation Comments Amylase Level (test code = 1798-8) [facility] 19:16:00* Test Item Value Reference Range Interpretation Comments Lipase (test code = 3040-3) [facility] Irving[facility] Dcfpx5645-76-51 19:16:00* Test Item Value Reference Range Interpretation Comments Amylase Level (test code = 1798-8) 46 [facility] Irving[facility]2018-10-22 19:16:00* Test Item Value Reference Range Interpretation Comments Lipase (test code = 3040-3) [facility] IrvingCT ABDOMEN/PELVIS MC0782-34-37 18:26:00 [facility] [address] [place] [address] Patient Name: WESLY HUTCHINSON MR #: [id number] : Age/Sex: 57/F Req #: [id number] Adm Physician: Ordered by: PAIGE GIBSON CLIP RIVETER Report #: [id number] Location: ER Room/Bed: Procedure: 1022 -0022 CT/CT [...] TO: PAIGE GIBSON NP RENAL SCAN W/FLOW EUFFSCHD6560-65-28 19:56:00 [place] [address] Patient Name: WESLY HUTCHINSON MR #: [id number] : 1960 Age/Sex: 57/F Req #: [id number] Adm Physician: Ordered by: JARET ESPINOSA MD Report #: [id number] Location: [place] Room/Bed: Procedure: 3840-0372 NM/RENAL SCAN W/FLOW FUNCTION Ex am Date: 11/05/17 Exam Time: 1510 REPORT STATUS : Signed Renal Scan Reason for exam: 57 F with vesicoureteral reflux . Radiopharmaceutical: Tc-99m MAG3 11 mCi Report: After administratio n of the radiopharmaceutical, dynamic [facility] of [facility] LEFT KIDNEY: Perfusion is prompt. [...] Transcribed By: DEYANIRA on 11/05/172011 COPY TO: AJRET ESPINOSA MD IR CONSULT 2017-09-22 07:24:00 [place] [address] Patient Name: WESLY HUTCHINSON MR #: [id number] : 1960 Age/Sex: 56[facility]F [facility] [id number] Req #: [id number] Adm Physician: VIKY MONTOYA MD Ordered by: JARET ESPINOSA MD Report #: [id number] Location: MED/SURG3 Room/Bed: [facility] Procedure: DX/IR CONSULT Exam Date: Exam Time: REPORT STATUS: Signed Nephrostomy catheter evaluation and fluoroscopic exchange Pre-Pr ocedure Diagnosis: Cervical cancer status post radiation therapy with right ur eteral stenosis. Post-procedure Diagnosis:Cervical cancer status post radiatio n therapy with right ureteral stenosis Bods Developer: Mode Donald MD Assista nt: None Sedation: [...] standard fashion. Diagnostic antegrade nephrostogram was perfo [facility] nephrostomy. See findings below. An Amplatz wire [...] TO: JARET ESPINOSA MD SPECIAL PROCEDURE IN ROLLER SKATER 2017-09-22 07:24:00 [place] [address] Patient Name: WESLY HUTCHINSON MR #: [id number] : 1960 Age/Sex: 56/F Req #: [id number] Adm Physician: VIKY MONTOYA MD Ordered by: JARET ESPINOSA MD Report #: [id number] [facility]: [facility] Room/Bed: [facility] Procedure: 1715-3821 IR/SPE CIAL PROCEDURE IN ROLLER SKATER Exam Date: Exam Time: REPORT STATUS: Signed Nephrostomy catheter evaluation and fluoroscopic e xchange Pre-Procedure Diagnosis: Cervical cancer status post radiation ther apy with right ureteral stenosis. Post-procedure Diagnosis:Cervical cancer s tatus post radiation therapy with right ureteral stenosis Bods Developer: Kimber Donald MD Gravel Inspector: None Sedation: Local 5 cc of 1% [...] 09/28/17 1326 COPY TO: JARET ESPINOSA MD Bacterial urine nkqeiyz7281-56-44 06:08:00* Test Item Value Reference Range Interpretation Comments Urine Culture (test code = 630-4) Organism: KLEBSIELLA PNEUMONIAE-E [facility] gptbrwt1980-27-77 06:08:00* Test Item Value Reference Range Interpretation Comments Urine Culture (test code = 630-4) Organism: KLEBSIELLA PNEUMONIAE-E SBL [facility] Irving[facility]ST XRAY LINE FFVXWEKJD5995-12-53 11:46:00 [facility] [address] [place] [address] Patient Name: WESLY HUTCHINSON MR #: [id number] : 1960 Age/Sex: 56/F Req #: [id number] Adm Physician: VIKY MONTOYA MD Ordered by: JARET ESPINOSA MD Report #: [id number] Location: MED/SURG3 Room/Bed: [facility] Procedure: 3252-0575 DX/TRACY ST XRAY LINE PLACEMENT Exam Date: [...] 1146 COPY T O: JARET ESPINOSA MD Platelet Kzayylej8891-85-30 07:05:00* Test Item Value Reference Range Interpretation Comments Platelet Estimate (test code = 76698-1) ADEQUATE [facility] IrvingPlatelet Morphology Pftegea0949-15-86 07:05:00* Test Item Value Reference Range Interpretation Comments Platelet Morphology Comment (test code = 69860-3) NORMAL NO CLUMPS. 07 on 09/21/17 by Magui Robles [facility] Lgkeawiyzteiv0801-43-65 07:05:00* Test Item Value Reference Range Interpretation Comments Hypochromasia (test code = 728-6) SLIGHT [facility] IrvingRed Cell Morphology Wwfvwel3397-21-22 07:05:00* Test Item Value Reference Range Interpretation Comments Red Cell Morphology Comment (test code = 6742-1) NORMAL [facility] IrvingPlatelet Hkmjxtrk6958-23-08 07:05:00* Test Item Value Reference Range Interpretation Comments Platelet Estimate (test code = 92151-4) ADEQUATE [facility] IrvingPlatelet Morphology Xeocalk4027-61-13 07:05:00* Test Item Value Reference Range Interpretation Comments Platelet Morphology Comment (test code = 39454-5) NORMAL NO CLUMPS. 07 on 09/21/17 by [facility] Zicjfvtcliehg4084-91-31 07:05:00* Test Item Value Reference Range Interpretation Comments Hypochromasia (test code = 728-6) SLIGHT [facility] IrvingRed Cell Morphology Nhlcuoc9033-95-68 07:05:00* Test Item Value Reference Range Interpretation Comments Red Cell Morphology Comment (test code = 6742-1) NORMAL [facility] IrvingPlatelet Zavrhzua8599-12-41 07:05:00* Test Item Value Reference Range Interpretation Comments Platelet Estimate (test code = 62836-9) ADEQUATE [facility] IrvingPlatelet Morphology Zhsgtwz1264-28-37 07:05:00* Test Item Value Reference Range Interpretation Comments Platelet Morphology Comment (test code = 51672-7) NORMAL NO CLUMPS. 704 on 09/21/17 by [facility] Udhkvncnryajt5186-86-21 07:05:00* Test Item Value Reference Range Interpretation Comments Hypochromasia (test code = 728-6) SLIGHT [facility] IrvingRed Cell Morphology Uphpaon7079-52-26 07:05:00* Test Item Value Reference Range Interpretation Comments Red Cell Morphology Comment (test code = 6742-1) NORMAL [facility] IrvingPlatelet Foiecqmd3818-45-78 07:05:00* Test Item Value Reference Range Interpretation Comments Platelet Estimate (test code = 09275-7) ADEQUATE [facility] IrvingPlatelet Morphology Fauomff0983-17-73 07:05:00* Test Item Value Reference Range Interpretation Comments Platelet Morphology Comment (test code = 52323-5) NORMAL NO CLUMPS. 07 on 09/21/17 by [facility] Nxbxfelokhpdr6504-32-43 07:05:00* Test Item Value Reference Range Interpretation Comments Hypochromasia (test code = 728-6) SLIGHT [facility] IrvingRed Cell Morphology Hbjwsso6705-36-83 07:05:00* Test Item Value Reference Range Interpretation Comments Red Cell Morphology Comment (test code = 6742-1) NORMAL [facility] IrvingPlatelet Rfentksx8720-38-97 07:05:00* Test Item Value Reference Range Interpretation Comments Platelet Estimate (test code = 04940-3) ADEQUATE [facility] IrvingPlatelet Morphology Wuxnskl4599-02-75 07:05:00* Test Item Value Reference Range Interpretation Comments Platelet Morphology Comment (test code = 41456-3) NORMAL NO CLUMPS. 07 on 09/21/17 by [facility] Gzvcqqdqbkvbi4301-97-38 07:05:00* Test Item Value Reference Range Interpretation Comments Hypochromasia (test code = 728-6) SLIGHT [facility] IrvingRed Cell Morphology Sxygyqk7289-77-92 07:05:00* Test Item Value Reference Range Interpretation Comments Red Cell Morphology Comment (test code = 6742-1) NORMAL [facility] IrvingPlatelet Uumfjasl1287-48-92 07:05:00* Test Item Value Reference Range Interpretation Comments Platelet Estimate (test code = 69162-9) ADEQUATE [facility] IrvingPlatelet Morphology Jckmbgv5136-77-71 07:05:00* Test Item Value Reference Range Interpretation Comments Platelet Morphology Comment (test code = 99362-8) NORMAL NO CLUMPS. 07 on 09/21/17 by [facility] Btythiokocemz9718-69-24 07:05:00* Test Item Value Reference Range Interpretation Comments Hypochromasia (test code = 728-6) SLIGHT [facility] IrvingRed Cell Morphology Lnzoxtm2861-24-14 07:05:00* Test Item Value Reference Range Interpretation Comments Red Cell Morphology Comment (test code = 6742-1) NORMAL [facility] IrvingPlatelet Kbejqhnp9089-52-08 07:05:00* Test Item Value Reference Range Interpretation Comments Platelet Estimate (test code = 56453-7) ADEQUATE [facility] IrvingPlatelet Morphology Djjyjbt3493-58-19 07:05:00* Test Item Value Reference Range Interpretation Comments Platelet Morphology Comment (test code = 94270-1) NORMAL NO CLUMPS. 07 on 09/21/17 by [facility] Osaqdzrsnuhpd3449-07-91 07:05:00* Test Item Value Reference Range Interpretation Comments Hypochromasia (test code = 728-6) SLIGHT [facility] IrvingRed Cell Morphology Untiwpz1055-79-14 07:05:00* Test Item Value Reference Range Interpretation Comments Red Cell Morphology Comment (test code = 6742-1) NORMAL [facility] IrvingPlatelet Kgcomrau4188-56-34 07:05:00* Test Item Value Reference Range Interpretation Comments Platelet Estimate (test code = 23417-9) ADEQUATE [facility] IrvingPlatesaint [facility] [place] Morphology Gnuboqp9675-73-98 07:05:00* Test Item Value Reference Range Interpretation Comments Platelet Morphology Comment (test code = 45389-5) NORMAL NO CLUMPS. 07 on 09/21/17 by [facility] Oltertmiwchgh6660-95-70 07:05:00* Test Item Value Reference Range Interpretation Comments Hypochromasia (test code = 728-6) SLIGHT [facility] IrvingRed Cell Morphology Xeluibp8477-15-85 07:05:00* Test Item Value Reference Range Interpretation Comments Red Cell Morphology Comment (test code = 6742-1) NORMAL [facility] IrvingPlatelet Ywhcsggj3766-71-23 07:05:00* Test Item Value Reference Range Interpretation Comments Platelet Estimate (test code = 83272-4) ADEQUATE [facility] IrvingPlatesaint [facility] [place] Morphology Moixmxr0665-23-24 07:05:00* Test Item Value Reference Range Interpretation Comments Platelet Morphology Comment (test code = 24909-9) NORMAL NO CLUMPS. 0705 on 09/21/17 by Magui Robles [facility] Znazuzrzgljxj8128-91-38 07:05:00* Test Item Value Reference Range Interpretation Comments Hypochromasia (test code = 728-6) SLIGHT [facility] IrvingRed Cell Morphology Yfahapr7715-30-94 07:05:00* Test Item Value Reference Range Interpretation Comments Red Cell Morphology Comment (test code = 6742-1) NORMAL [facility] IrvingBacterial urine bsdldpc1640-94-15 06:42:00* Test Item Value Reference Range Interpretation Comments Urine Culture (test code = 630-4) Organism: KLEBSIELLA PNEUMONIAE-E SBL#2 [facility] IrvingBacteria urine fkdtcud5312-53-98 06:42:00* Test Item Value Reference Range Interpretation Comments Urine Culture (test code = 630-4) Organism: KLEBSIELLA PNEUMONIAE-E SBL#2 [facility] IrvingWhite Blood Covar9878-78-50 06:24:00* Test Item Value Reference Range Interpretation Comments White Blood Count (test code = 6690-2) 8.38 4.8-10.8 [facility] IrvingRed Blood Ptdqe1697-13-54 06:24:00* Test Item Value Reference Range Interpretation Comments Red Blood Count (test code = 789-8) 3.76 3.6-5.1 [facility] IrvingHemoglobin2018-08-13 06:24:00* Test Item Value Reference Range Interpretation Comments Hemoglobin (test code = 79743-7) 9.6 12.0-16.0 L [facility] IrvingHematocrit2018-08-13 06:24:00* Test Item Value Reference Range Interpretation Comments Hematocrit (test code = 4544-3) 31.3 34.2-44.1 L [facility] IrvingMean Corpuscular Ddvgxr0881-81-43 06:24:00* Test Item Value Reference Range Interpretation Comments Mean Corpuscular Volume (test code = 787-2) 83.2 81-99 [facility] IrvingMean Corpuscular Cvkkgmttlc4168-87-63 06:24:00* Test Item Value Reference Range Interpretation Comments Mean Corpuscular Hemoglobin (test code = 785-6) 25.5 28-32 L [facility] IrvingMean Corpuscular Hemoglobin Concent 2017-09-21 06:24:00* Test Item Value Reference Range Interpretation Comments Mean Corpuscular Hemoglobin Concent (test code = 786-4) 30.7 31-35 L [facility] IrvingRed Cell Distribution Jkahj6825-45-59 06:24:00* Test Item Value Reference Range Interpretation Comments Red Cell Distribution Width (test code = 21039-9) 15.0 11.7 -14.4 H [facility] IrvingPlatelet Fqtkk1155-56-60 06:24:00* Test Item Value Reference Range Interpretation Comments Platelet Count (test code = 777-3) 302 140-360 [facility] IrvingNeutrophils (%) (Auto)2017-09-21 06:24:00 * Test Item Value Reference Range Interpretation Comments Neutrophils (%) (Auto) (test code = 51683-5) 58.2 38.7-80.0 [facility] IrvingLymphocytes (%) (Auto)2017-09-21 06:24:00 * Test Item Value Reference Range Interpretation Comments Lymphocytes (%) (Auto) (test code = 736-9) 31.7 18.0-39.1 [facility] IrvingMonocytes (%) (Auto)2017-09-21 06:24:00* Test Item Value Reference Range Interpretation Comments Monocytes (%) (Auto) (test code = 5905-5) 7.0 4.4-11.3 [facility] IrvingEosinophils (%) (Auto)2017-09-21 06:24:00 * Test Item Value Reference Range Interpretation Comments Eosinophils (%) (Auto) (test code = 713-8) 1.9 0.0-6.0 [facility] IrvingBasophils (%) (Auto)2017-09-21 06:24:00* Test Item Value Reference Range Interpretation Comments Basophils (%) (Auto) (test code = 706-2) 0.6 0.0-1.0 [facility] IrvingIM GRANULOCYTES %2017-09-21 06:24:00* Test Item Value Reference Range Interpretation Comments IM GRANULOCYTES % (test code = IM GRANULOCYTES %) 0.6 0.0- 1.0 [facility] IrvingNeutrophils # (Auto)2017-09-21 06:24:00* Test Item Value Reference Range Interpretation Comments Neutrophils # (Auto) (test code = 751-8) 4.9 2.1-6.9 [facility] IrvingLymphocytes # (Auto)2017-09-21 06:24:00* Test Item Value Reference Range Interpretation Comments Lymphocytes # (Auto) (test code = 23726-7) 2.7 1.0-3.2 [facility] IrvingMonocytes # (Auto)2017-09-21 06:24:00* Test Item Value Reference Range Interpretation Comments Monocytes # (Auto) (test code = 742-7) 0.6 0.2-0.8 [facility] IrvingEosinophils # (Auto)2017-09-21 06:24:00* Test Item Value Reference Range Interpretation Comments Eosinophils # (Auto) (test code = 711-2) 0.2 0.0-0.4 [facility] IrvingBasophils # (Auto)2017-09-21 06:24:00* Test Item Value Reference Range Interpretation Comments Basophils # (Auto) (test code = 704-7) 0.1 0.0-0.1 [facility] IrvingAbsolute Immature Granulocyte (auto 2017-09-21 06:24:00* Test Item Value Reference Range Interpretation Comments Absolute Immature Granulocyte (auto (irena t code = Absolute Immature Granulocyte (auto) 0.05 0-0.1 [facility] IrvingWhite Blood Fziug6513-68-08 06:24:00* Test Item Value Reference Range Interpretation Comments White Blood Count (test code = 6690-2) 8.38 4.8-10.8 [facility] IrvingRed Blood Ywtri5645-75-07 06:24:00* Test Item Value Reference Range Interpretation Comments Red Blood Count (test code = 789-8) 3.76 3.6-5.1 [facility] IrvingHemoglobin2018-08-13 06:24:00* Test Item Value Reference Range Interpretation Comments Hemoglobin (test code = 32983-1) 9.6 12.0-16.0 L [facility] IrvingHematocrit2018-08-13 06:24:00* Test Item Value Reference Range Interpretation Comments Hematocrit (test code = 4544-3) 31.3 34.2-44.1 L [facility] IrvingMean Corpuscular Pmelfv6406-65-45 06:24:00* Test Item Value Reference Range Interpretation Comments Mean Corpuscular Volume (test code = 787-2) 83.2 81-99 [facility] IrvingMean Corpuscular Lihqtyzdcy0139-35-60 06:24:00* Test Item Value Reference Range Interpretation Comments Mean Corpuscular Hemoglobin (test code = 785-6) 25.5 28-32 L [facility] IrvingMean Corpuscular Hemoglobin Concent 2017-09-21 06:24:00* Test Item Value Reference Range Interpretation Comments Mean Corpuscular Hemoglobin Concent (test code = 786-4) 30.7 31-35 L [facility] IrvingRed Cell Distribution Kbcxg8736-92-45 06:24:00* Test Item Value Reference Range Interpretation Comments Red Cell Distribution Width (test code = 98723-1) 15.0 11.7 -14.4 H [facility] IrvingPlatelet Kpqra2698-22-24 06:24:00* Test Item Value Reference Range Interpretation Comments Platelet Count (test code = 777-3) 302 140-360 [facility] IrvingNeutrophils (%) (Auto)2017-09-21 06:24:00 * Test Item Value Reference Range Interpretation Comments Neutrophils (%) (Auto) (test code = 76199-5) 58.2 38.7-80.0 [facility] IrvingLymphocytes (%) (Auto)2017-09-21 06:24:00 * Test Item Value Reference Range Interpretation Comments Lymphocytes (%) (Auto) (test code = 736-9) 31.7 18.0-39.1 [facility] IrvingMonocytes (%) (Auto)2017-09-21 06:24:00* Test Item Value Reference Range Interpretation Comments Monocytes (%) (Auto) (test code = 5905-5) 7.0 4.4-11.3 [facility] IrvingEosinophils (%) (Auto)2017-09-21 06:24:00 * Test Item Value Reference Range Interpretation Comments Eosinophils (%) (Auto) (test code = 713-8) 1.9 0.0-6.0 [facility] IrvingBasophils (%) (Auto)2017-09-21 06:24:00* Test Item Value Reference Range Interpretation Comments Basophils (%) (Auto) (test code = 706-2) 0.6 0.0-1.0 [facility] IrvingIM GRANULOCYTES %2017-09-21 06:24:00* Test Item Value Reference Range Interpretation Comments IM GRANULOCYTES % (test code = IM GRANULOCYTES %) 0.6 0.0- 1.0 [facility] IrvingNeutrophils # (Auto)2017-09-21 06:24:00* Test Item Value Reference Range Interpretation Comments Neutrophils # (Auto) (test code = 751-8) 4.9 2.1-6.9 [facility] IrvingLymphocytes # (Auto)2017-09-21 06:24:00* Test Item Value Reference Range Interpretation Comments Lymphocytes # (Auto) (test code = 32480-1) 2.7 1.0-3.2 [facility] IrvingMonocytes # (Auto)2017-09-21 06:24:00* Test Item Value Reference Range Interpretation Comments Monocytes # (Auto) (test code = 742-7) 0.6 0.2-0.8 [facility] IrvingEosinophils # (Auto)2017-09-21 06:24:00* Test Item Value Reference Range Interpretation Comments Eosinophils # (Auto) (test code = 711-2) 0.2 0.0-0.4 [facility] IrvingBasophils # (Auto)2017-09-21 06:24:00* Test Item Value Reference Range Interpretation Comments Basophils # (Auto) (test code = 704-7) 0.1 0.0-0.1 [facility] IrvingAbsolute Immature Granulocyte (auto 2017-09-21 06:24:00* Test Item Value Reference Range Interpretation Comments Absolute Immature Granulocyte (auto (irena t code = Absolute Immature Granulocyte (auto) 0.05 0-0.1 [facility] Dentonodium Knqvq4482-00-59 06:13:00* Test Item Value Reference Range Interpretation Comments Sodium Level (test code = 2951-2) 141 136-145 [facility] IrvingPotassium Bctmt8428-63-70 06:13:00* Test Item Value Reference Range Interpretation Comments Potassium Level (test code = 2823-3) 3.7 3.5-5.1 [facility] IrvingChloride Lkbtp5652-35-03 06:13:00* Test Item Value Reference Range Interpretation Comments Chloride Level (test code = 2075-0) 107 98-107 [facility] IrvingCarbon Dioxide Uyfuj8430-07-39 06:13:00* Test Item Value Reference Range Interpretation Comments Carbon Dioxide Level (test code = 2028-9) 23 22-29 [facility] IrvingAnion Aji6685-71-53 06:13:00* Test Item Value Reference Range Interpretation Comments Anion Gap (test code = 41736-8) 14.7 8-16 [facility] IrvingBlood Urea Ebidwmtm6023-88-77 06:13:00* Test Item Value Reference Range Interpretation Comments Blood Urea Nitrogen (test code = 3094-0) 11 7-26 [facility] IrvingCreatinine2018-08-13 06:13:00* Test Item Value Reference Range Interpretation Comments Creatinine (test code = 2160-0) 0.73 0.57-1.11 [facility] IrvingBUN/Creatinine Jyxxs2776-15-64 06:13:00* Test Item Value Reference Range Interpretation Comments BUN/Creatinine Ratio (test code = 3097-3) 15 6-25 [facility] IrvingEstimat Glomerular Filtration Rate 2017-09-21 06:13:00* Test Item Value Reference Range Interpretation Comments Estimat Glomerular Filtration Rate (test code = 76258-3) 60- >60 Ranges were taken from the National Kidney Disease Education Program and the [facility] literature.Reference ranges:60 or greater: Acrdbc83-82 ( for 3 consecutive months): Chronic kidney disease 15 or less: Kidney failureBaylor Scott & [facility] – IrvingGlucose Ugowc9853-19-73 06:13:00* Test Item Value Reference Range Interpretation Comments Glucose Level (test code = IQF0622) 118 74-118 [facility] IrvingCalcium Lfxdz0991-31-65 06:13:00* Test Item Value Reference Range Interpretation Comments Calcium Level (test code = 88857-6) 8.7 8.4-10.2 [facility]entonodium Qcwtj7758-19-54 06:13:00* Test Item Value Reference Range Interpretation Comments Sodium Level (test code = 2951-2) 141 136-145 [facility] IrvingPotassium Vbmqr8844-59-22 06:13:00* Test Item Value Reference Range Interpretation Comments Potassium Level (test code = 2823-3) 3.7 3.5-5.1 [facility] IrvingChloride Iyxlz9543-29-40 06:13:00* Test Item Value Reference Range Interpretation Comments Chloride Level (test code = 2075-0) 107 98-107 [facility] IrvingCarbon Dioxide Ddvgc0121-63-91 06:13:00* Test Item Value Reference Range Interpretation Comments Carbon Dioxide Level (test code = 2028-9) 23 22-29 [facility] IrvingAnion Wnp7107-02-38 06:13:00* Test Item Value Reference Range Interpretation Comments Anion Gap (test code = 46323-1) 14.7 8-16 [facility] IrvingBlood Urea Wgbslztn1175-86-80 06:13:00* Test Item Value Reference Range Interpretation Comments Blood Urea Nitrogen (test code = 3094-0) 11 7-26 [facility] IrvingCreatinine2018-08-13 06:13:00* Test Item Value Reference Range Interpretation Comments Creatinine (test code = 2160-0) 0.73 0.57-1.11 [facility] IrvingBUN/Creatinine Nmyfo2300-23-62 06:13:00* Test Item Value Reference Range Interpretation Comments BUN/Creatinine Ratio (test code = 3097-3) 15 6-25 [facility] IrvingEstimat Glomerular Filtration Rate 2017-09-21 06:13:00* Test Item Value Reference Range Interpretation Comments Estimat Glomerular Filtration Rate (test code = 108610122) 60- >60 Ranges were taken from the National Kidney Disease Education Program and the [facility] Kidney Foundation literature.Reference ranges:60 or greater: Mmidah22-18 ( for 3 consecutive months): Chronic kidney disease 15 or less: Kidney failureBaylor Scott & White Medical Center – IrvingGlucose Eeksl5389-60-62 06:13:00* Test Item Value Reference Range Interpretation Comments Glucose Level (test code = SHG0138) 118 74-118 [facility] IrvingCalcium Nqglr8943-31-63 06:13:00* Test Item Value Reference Range Interpretation Comments Calcium Level (test code = 13182-1) 8.7 8.4-10.2 [facility] IrvingABDOMEN-1VIEW (KUB)2017-09-18 07:34:00 [facility] [address] [place] [address] Patient Name: WESLY HUTCHINSON MR #: [id number] : Age/Sex: 56/F Req #: [id number] Adm Physician: VIKY REAGAN MD Ordered by: JARET ESPINOSA MD Report #: [id number] Location: [facility] Room[place]Bed: [place] [address] Procedure: [id number] DX/ABD OMEN-1VIEW (KUB) Exam Date: 09/18/17 Exam [...] at 7:34 Dictated By: MODE DONALD MD 3 Transcribed By: SUSHANT on 09/18/17733 COPY TO: JARET PATEL MD Urine Goinu1522-71-44 23:08:00* Test Item Value Reference Range Interpretation Comments Urine Color (test code = 5778-6) YELLOW YELLOW [facility] IrvingUrine Bbdrska8441-66-22 23:08:00* Test Item Value Reference Range Interpretation Comments Urine Clarity (test code = 69576-4) CLOUDY CLEAR H [facility] IrvingUrine Specific Thimuxk5784-84-38 23:08:00 * Test Item Value Reference Range Interpretation Comments Urine Specific [place] (test code = 5811-5) 1.020 1.010-1.02 5 [facility] IrvingUrine fF8458-61-29 23:08:00* Test Item Value Reference Range Interpretation Comments Urine pH (test code = 83389-6) 6 5-7 [facility] IrvingUrine Leukocyte Msshinvq6380-84-53 23:08:00* Test Item Value Reference Range Interpretation Comments Urine Leukocyte Esterase (test code = 5799-2) 1+ NEGATIVE H [facility] IrvingUrine Xvfxmff9209-13-49 23:08:00* Test Item Value Reference Range Interpretation Comments Urine Nitrite (test code = 65428-4) POSITIVE NEGATIVE H [facility] IrvingUrine Lvoimec9049-60-67 23:08:00* Test Item Value Reference Range Interpretation Comments Urine Protein (test code = 5804-0) 2+ NEGATIVE H [facility] IrvingUrine Glucose (UA)2017-09-17 23:08:00* Test Item Value Reference Range Interpretation Comments Urine Glucose (UA) (test code = 2349-9) 1+ NEGATIVE H [facility] IrvingUrine Eufcexf3079-40-52 23:08:00* Test Item Value Reference Range Interpretation Comments Urine Ketones (test code = 94774-0) NEGATIVE NEGATIVE [facility] Osfahdfxgspf4310-62-53 23:08:00* Test Item Value Reference Range Interpretation Comments Urine Urobilinogen (test code = 90147-8) 0.2 0.2-1 [facility] IrvingUrine Nvrplylwy4101-51-88 23:08:00* Test Item Value Reference Range Interpretation Comments Urine Bilirubin (test code = 1978-6) NEGATIVE NEGATIVE [facility] IrvingUrine Dsjoe8341-59-51 23:08:00* Test Item Value Reference Range Interpretation Comments Urine Blood (test code = 29732-3) 3+ NEGATIVE H [facility] IrvingUrine HIO6185-93-23 23:08:00* Test Item Value Reference Range Interpretation Comments Urine WBC (test code = 5821-4) 50- 0-5 H [facility] IrvingUrine IJU6229-37-82 23:08:00* Test Item Value Reference Range Interpretation Comments Urine RBC (test code = 28743-2) 0-5 0-5 [facility] IrvingUrine Zkwmonib6662-54-58 23:08:00* Test Item Value Reference Range Interpretation Comments Urine Bacteria (test code = 36242-5) MODERATE NONE H [facility] IrvingUrine Epithelial Otkkv1745-31-22 23:08:00 * Test Item Value Reference Range Interpretation Comments Urine Epithelial Cells (test code = 83883-5) RARE NONE [facility] IrvingUrine Ykpbx6323-12-99 23:08:00* Test Item Value Reference Range Interpretation Comments Urine Color (test code = 5778-6) YELLOW YELLOW [facility] IrvingUrine Exuzqwn7566-06-27 23:08:00* Test Item Value Reference Range Interpretation Comments Urine Clarity (test code = 22593-3) CLOUDY CLEAR H [facility] IrvingUrine Specific Navybau1988-86-37 23:08:00 * Test Item Value Reference Range Interpretation Comments Urine Specific [place] (test code = 5811-5) 1.020 1.010-1.02 5 [facility] IrvingUrine mC8102-68-99 23:08:00* Test Item Value Reference Range Interpretation Comments Urine pH (test code = 81403-4) 6 5-7 [facility] IrvingUrine Leukocyte Nlyalloi0980-41-30 23:08:00* Test Item Value Reference Range Interpretation Comments Urine Leukocyte Esterase (test code = 5799-2) 1+ NEGATIVE [facility] Nkzyicw0743-54-01 23:08:00* Test Item Value Reference Range Interpretation Comments Urine Nitrite (test code = 66452-0) POSITIVE NEGATIVE [facility] Uisptme7815-77-33 23:08:00* Test Item Value Reference Range Interpretation Comments Urine Protein (test code = 5804-0) 2+ NEGATIVE H [facility] IrvingUrine Glucose (UA)2017-09-17 23:08:00* Test Item Value Reference Range Interpretation Comments Urine Glucose (UA) (test code = 2349-9) 1+ NEGATIVE [facility] Vdmwsfe8006-06-58 23:08:00* Test Item Value Reference Range Interpretation Comments Urine Ketones (test code = 00289-4) NEGATIVE NEGATIVE [facility] IrvingU[facility] Dqsrctclzajj9985-02-85 23:08:00* Test Item Value Reference Range Interpretation Comments Urine Urobilinogen (test code = 03888-0) 0.2 0.2-1 [facility] IrvingU[facility] Rrcocsghw6008-74-74 23:08:00* Test Item Value Reference Range Interpretation Comments Urine Bilirubin (test code = 1978-6) NEGATIVE NEGATIVE [facility] IrvingU[facility] Lpecp4342-24-89 23:08:00* Test Item Value Reference Range Interpretation Comments Urine Blood (test code = 66045-8) 3+ NEGATIVE H [facility] IrvingUrine BZR4695-22-46 23:08:00* Test Item Value Reference Range Interpretation Comments Urine WBC (test code = 5821-4) 50- 0-5 H [facility] IrvingU[facility] KMI8664-46-16 23:08:00* Test Item Value Reference Range Interpretation Comments Urine RBC (test code = 87305-0) 0-5 0-5 [facility] IrvingU[facility] Sbreeivj4028-83-37 23:08:00* Test Item Value Reference Range Interpretation Comments Urine Bacteria (test code = 18454-0) MODERATE NONE H [facility] IrvingUrine Epithelial Icgtx1657-17-52 23:08:00 * Test Item Value Reference Range Interpretation Comments Urine Epithelial Cells (test code = 35396-9) RARE NONE [facility] IrvingCT ABDOMEN/PELVIS JM0665-06-52 19:09:00 [facility] [address] [address] Patient Name: WESLY HUTCHINSON MR #: [id number] : Age/Sex: 56/F Req #: [id number] Adm Physician: Ordered by: ANNETTE BREWER CLIP RIVETER Report #: [id number] Location: ER Room/Be d: Procedure: [id number] CT/CT ABDOMEN/PELVIS WO Exam Date: 09/17/17 Exam [...] DEYANIRA on 09/17/171927 COPY TO: ANNETTE BREWER NP Human Chorionic Gonadotropin, Fwgi1080-96-45 18:41:00* Test Item Value Reference Range Interpretation Comments Human Chorionic Gonadotropin, Qual (test code = 2118-8) NEGATIVE NEGATIVE [facility] Chorionic Gonadotropin, [facility] 2017-09-17 18:41:00* Test Item Value Reference Range Interpretation Comments Human Chorionic Gonadotropin, Qual (test code = 2118-8) NEGATIVE NEGATIVE [facility] Chorionic Gonadotropin, [facility] 2017-09-17 18:41:00* Test Item Value Reference Range Interpretation Comments Human Chorionic Gonadotropin, Qual (test code = 2118-8) NEGATIVE NEGATIVE [facility] Chorionic Gonadotropin, [facility] 2017-09-17 18:41:00* Test Item Value Reference Range Interpretation Comments Human Chorionic Gonadotropin, Qual (test code = 2118-8) NEGATIVE NEGATIVE [facility] Chorionic Gonadotropin, Qual 2017-09-17 18:41:00* Test Item Value Reference Range Interpretation Comments Human Chorionic Gonadotropin, Qual (test code = 2118-8) NEGATIVE NEGATIVE [facility] Chorionic Gonadotropin, Qual 2017-09-17 18:41:00* Test Item Value Reference Range Interpretation Comments Human Chorionic Gonadotropin, Qual (test code = 2118-8) NEGATIVE NEGATIVE [facility] Wxeys6953-89-69 16:31:00* Test Item Value Reference Range Interpretation Comments Urine Mucus (test code = 8247-9) FEW RARE H [facility] Ysrfu4629-55-09 16:31:00* Test Item Value Reference Range Interpretation Comments Urine Mucus (test code = 8247-9) FEW RARE H [facility] Zjluy5489-86-39 16:31:00* Test Item Value Reference Range Interpretation Comments Urine Mucus (test code = 8247-9) [facility] Pgbws1106-50-47 16:31:00* Test Item Value Reference Range Interpretation Comments Urine Mucus (test code = 8247-9) [facility] Ptizi8355-40-75 16:31:00* Test Item Value Reference Range Interpretation Comments Urine Mucus (test code = 8247-9) [facility] Jyxcp8544-58-62 16:31:00* Test Item Value Reference Range Interpretation Comments Urine Mucus (test code = 8247-9) [facility]2018-08-09 16:31:00* Test Item Value Reference Range Interpretation Comments Urine Mucus (test code = 8247-9) [facility] Ospmc3396-60-19 16:31:00* Test Item Value Reference Range Interpretation Comments Urine Mucus (test code = 8247-9) [facility] Qoutc8333-73-52 16:31:00* Test Item Value Reference Range Interpretation Comments Urine Mucus (test code = 8247-9) [facility] Evasexg9335-01-03 08:01:00* Test Item Value Reference Range Interpretation Comments Urine Culture (test code = 630-4) Organism: ESCHERICHIA COLI [facility] Jwhjwfj9095-26-53 08:01:00* Test Item Value Reference Range Interpretation Comments Urine Culture (test code = 630-4) Organism: ESCHERICHIA COLI [facility] TJP1399-01-70 16:50:00* Test Item Value Reference Range Interpretation Comments Urine WBC (test code = 5821-4) 50- 0-5 H [facility] SQN4828-73-85 16:50:00* Test Item Value Reference Range Interpretation Comments Urine RBC (test code = 89690-9) 11-20 0-5 H [facility] Aavtguto8147-87-83 16:50:00* Test Item Value Reference Range Interpretation Comments Urine Bacteria (test code = 11656-6) MODERATE NONE H [facility] IrvingU[facility] Epithelial Xzfpz4882-77-74 16:50:00 * Test Item Value Reference Range Interpretation Comments Urine Epithelial Cells (test code = 95112-2) NONE NONE [facility] IrvingU[facility] White Blood Cell Eqcqn7623-14-37 16:50:00* Test Item Value Reference Range Interpretation Comments Urine White Blood Cell Casts (test code = 50892-4) 1-5 >0 H [facility] IrvingU[facility] White Blood Cell Btjxl8862-25-43 16:50:00* Test Item Value Reference Range Interpretation Comments Urine White Blood Cell Casts (test code = 03413-0) 1-5 >0 H [facility] IrvingU[facility] White Blood Cell Docip8103-57-25 16:50:00* Test Item Value Reference Range Interpretation Comments Urine White Blood Cell Casts (test code = 53497-1) 1-5 >0 H [facility] IrvingU[facility] White Blood Cell Tefvr4326-89-32 16:50:00* Test Item Value Reference Range Interpretation Comments Urine White Blood Cell Casts (test code = 77075-6) 1-5 >0 H [facility] Irving[facility] White Blood Cell Hgvij3130-32-34 16:50:00* Test Item Value Reference Range Interpretation Comments Urine White Blood Cell Casts (test code = 67236-0) 1-5 >0 H [facility] IrvingU[facility] White Blood Cell Pcrsh4258-98-62 16:50:00* Test Item Value Reference Range Interpretation Comments Urine White Blood Cell Casts (test code = 72793-6) 1-5 >0 H [facility] Irving[facility] White Blood Cell Uwrmh9351-65-34 16:50:00* Test Item Value Reference Range Interpretation Comments Urine White Blood Cell Casts (test code = 84506-2) 1-5 >0 H [facility] Irving[facility] White Blood Cell Xrhaj0702-62-48 16:50:00* Test Item Value Reference Range Interpretation Comments Urine White Blood Cell Casts (test code = 25651-6) 1-5 >0 H [facility] Irving[facility] White Blood Cell Nluqf6052-12-61 16:50:00* Test Item Value Reference Range Interpretation Comments Urine White Blood Cell Casts (test code = 28574-8) 1-5 >0 H [facility] IrvingU[facility] Japud0512-47-98 16:38:00* Test Item Value Reference Range Interpretation Comments Urine Color (test code = 5778-6) YELLOW YELLOW [facility] IrvingU[facility] Isazsrl0957-53-50 16:38:00* Test Item Value Reference Range Interpretation Comments Urine Clarity (test code = 31954-3) TURBID CLEAR H [facility] IrvingU[facility] Specific Ohzdycl8808-90-11 16:38:00 * Test Item Value Reference Range Interpretation Comments Urine Specific [place] (test code = 5811-5) 1.030 1.010-1.02 5 H [facility] IrvingU[facility] yA0869-80-57 16:38:00* Test Item Value Reference Range Interpretation Comments Urine pH (test code = 40153-1) 6 5-7 [facility] Irving[facility] Leukocyte Ppsvbtww2484-27-49 16:38:00* Test Item Value Reference Range Interpretation Comments Urine Leukocyte Esterase (test code = 5799-2) 2+ NEGATIVE H [facility] IrvingU[facility] Pactctd7788-71-58 16:38:00* Test Item Value Reference Range Interpretation Comments Urine Nitrite (test code = 21087-5) POSITIVE NEGATIVE H [facility] IrvingU[facility] Jooonzy6386-40-83 16:38:00* Test Item Value Reference Range Interpretation Comments Urine Protein (test code = 5804-0) 3+ NEGATIVE H [facility] IrvingU[facility] Glucose (UA)2017-08-10 16:38:00* Test Item Value Reference Range Interpretation Comments Urine Glucose (UA) (test code = 2349-9) NEGATIVE NEGATIVE [facility] Irving[facility] Qeesqaw6812-27-40 16:38:00* Test Item Value Reference Range Interpretation Comments Urine Ketones (test code = 10110-1) NEGATIVE NEGATIVE [facility] IrvingU[facility] Cmdsbisbremk7301-34-98 16:38:00* Test Item Value Reference Range Interpretation Comments Urine Urobilinogen (test code = 81678-5) 0.2 0.2-1 [facility] Irving[facility] Yedvqxzjy1083-65-50 16:38:00* Test Item Value Reference Range Interpretation Comments Urine Bilirubin (test code = 1978-6) NEGATIVE NEGATIVE [facility] Irving[facility] Sgvhl7503-66-27 16:38:00* Test Item Value Reference Range Interpretation Comments Urine Blood (test code = 02219-4) 3+ NEGATIVE H [facility] Ahqyu7816-18-09 14:37:00* Test Item Value Reference Range Interpretation Comments Sodium Level (test code = 2951-2) 139 136-145 [facility] IrvingPotassium Bhyla7333-99-71 14:37:00* Test Item Value Reference Range Interpretation Comments Potassium Level (test code = 2823-3) 3.9 3.5-5.1 [facility] IrvingChloride Odbhy9426-16-89 14:37:00* Test Item Value Reference Range Interpretation Comments Chloride Level (test code = 2075-0) 105 98-107 [facility] IrvingCarbon Dioxide Wkcbr3625-28-56 14:37:00* Test Item Value Reference Range Interpretation Comments Carbon Dioxide Level (test code = 2028-9) 23 22-29 [facility] IrvingAnion Olg3652-48-29 14:37:00* Test Item Value Reference Range Interpretation Comments Anion Gap (test code = 74990-6) 14.9 8-16 [facility] IrvingBlood Urea Ywvmpeyi5865-61-75 14:37:00* Test Item Value Reference Range Interpretation Comments Blood Urea Nitrogen (test code = 3094-0) 13 7-26 [facility] IrvingCreatinine2018-07-02 14:37:00* Test Item Value Reference Range Interpretation Comments Creatinine (test code = 2160-0) 0.85 0.57-1.11 [facility] IrvingBUN/Creatinine Sduou1083-69-55 14:37:00* Test Item Value Reference Range Interpretation Comments BUN/Creatinine Ratio (test code = 3097-3) 15 6-25 [facility] IrvingEstimat Glomerular Filtration Rate 2017-08-10 14:37:00* Test Item Value Reference Range Interpretation Comments Estimat Glomerular Filtration Rate (test code = 40357-1) 60- >60 Ranges were taken from the National Kidney Disease Education Program and the [facility] [facility] [facility] literature.Reference ranges:60 or greater: Dhqzni37-56 ( for 3 consecutive months): Chronic kidney disease 15 or less: Kid[facility] failureB[facility] IrvingGlucose Owejl5412-98-29 14:37:00* Test Item Value Reference Range Interpretation Comments Glucose Level (test code = CWK7150) 191 74-118 H [facility] IrvingCalcium Uyjdz7213-36-69 14:37:00* Test Item Value Reference Range Interpretation Comments Calcium Level (test code = 60574-9) 9.7 8.4-10.2 [facility] IrvingTotal Gleenvndk9963-46-93 14:37:00* Test Item Value Reference Range Interpretation Comments Total Bilirubin (test code = 1975-2) 0.5 0.2-1.2 [facility] IrvingAspartate Amino Transf (AST/SGOT) 2017-08-10 14:37:00* Test Item Value Reference Range Interpretation Comments Aspartate Amino Transf (AST/SGOT) (test code = Aspartate Amino Transf (AST/SGOT)) 20 5-34 [facility] IrvingAlanine Aminotransferase (ALT/SGPT) 2017-08-10 14:37:00* Test Item Value Reference Range Interpretation Comments Alanine Aminotransferase (ALT/SGPT) (test code = 1742-6) 19 0-55 [facility] IrvingTotal Tydmucw2092-57-99 14:37:00* Test Item Value Reference Range Interpretation Comments Total Protein (test code = 2885-2) 8.2 6.5-8.1 [facility] IrvingAlbumin2018-07-02 14:37:00* Test Item Value Reference Range Interpretation Comments Albumin (test code = 1751-7) 3.3 3.5-5.0 L [facility] IrvingGlobulin2018-07-02 14:37:00* Test Item Value Reference Range Interpretation Comments Globulin (test code = 01681-8) 4.9 2.3-3.5 H [facility] IrvingAlbumin/Globulin Glhxc2264-90-03 14:37:00 * Test Item Value Reference Range Interpretation Comments Albumin/Globulin Ratio (test code = 1759-0) 0.7 0.8-2.0 L [facility] IrvingAlkaline Viljdqinbhn9784-51-86 14:37:00* Test Item Value Reference Range Interpretation Comments Alkaline Phosphatase (test code = 6768-6) 88 40-150 [facility] IrvingAmylase Hzmgj9024-52-82 14:37:00* Test Item Value Reference Range Interpretation Comments Amylase Level (test code = 1798-8) 51 25-125 [facility] IrvingLipase2018-07-02 14:37:00* Test Item Value Reference Range Interpretation Comments Lipase (test code = 3040-3) 27 8-78 [facility] IrvingTotal Iwyehvfca1403-25-86 14:37:00* Test Item Value Reference Range Interpretation Comments Total Bilirubin (test code = 1975-2) 0.5 0.2-1.2 [facility] IrvingAspartate Amino Transf (AST/SGOT) 2017-08-10 14:37:00* Test Item Value Reference Range Interpretation Comments Aspartate Amino Transf (AST/SGOT) (test code = Aspartate Amino Transf (AST/SGOT)) 20 5-34 [facility] IrvingAlanine Aminotransferase (ALT/SGPT) 2017-08-10 14:37:00* Test Item Value Reference Range Interpretation Comments Alanine Aminotransferase (ALT/SGPT) (test code = 1742-6) 19 0-55 [facility] IrvingTotal Yhyvijs5830-64-61 14:37:00* Test Item Value Reference Range Interpretation Comments Total Protein (test code = 2885-2) 8.2 6.5-8.1 H [facility] IrvingAlbumin2018-07-02 14:37:00* Test Item Value Reference Range Interpretation Comments Albumin (test code = 1751-7) 3.3 3.5-5.0 L [facility] IrvingGlobulin2018-07-02 14:37:00* Test Item Value Reference Range Interpretation Comments Globulin (test code = 02582-3) 4.9 2.3-3.5 H [facility] IrvingAlbumin/Globulin Ghndy9304-93-28 14:37:00 * Test Item Value Reference Range Interpretation Comments Albumin/Globulin Ratio (test code = 1759-0) 0.7 0.8-2.0 L [facility] IrvingAlkaline Qcurdxuyrwf9903-38-52 14:37:00* Test Item Value Reference Range Interpretation Comments Alkaline Phosphatase (test code = 6768-6) 88 40-150 [facility] IrvingAmylase Yfcem0148-11-14 14:37:00* Test Item Value Reference Range Interpretation Comments Amylase Level (test code = 1798-8) 51 25-125 [facility] IrvingLipase2018-07-02 14:37:00* Test Item Value Reference Range Interpretation Comments Lipase (test code = 3040-3) 27 8-78 [facility] IrvingTotal Mgarmtbxi4762-73-17 14:37:00* Test Item Value Reference Range Interpretation Comments Total Bilirubin (test code = 1975-2) 0.5 0.2-1.2 [facility] IrvingAspartate Amino Transf (AST/SGOT) 2017-08-10 14:37:00* Test Item Value Reference Range Interpretation Comments Aspartate Amino Transf (AST/SGOT) (test code = Aspartate Amino Transf (AST/SGOT)) 20 5-34 [facility] IrvingAlanine Aminotransferase (ALT/SGPT) 2017-08-10 14:37:00* Test Item Value Reference Range Interpretation Comments Alanine Aminotransferase (ALT/SGPT) (test code = 1742-6) 19 0-55 [facility] IrvingTotal Ydbdwzc8239-31-14 14:37:00* Test Item Value Reference Range Interpretation Comments Total Protein (test code = 2885-2) 8.2 6.5-8.1 H [facility] IrvingAlbumin2018-07-02 14:37:00* Test Item Value Reference Range Interpretation Comments Albumin (test code = 1751-7) 3.3 3.5-5.0 L [facility] IrvingGlobulin2018-07-02 14:37:00* Test Item Value Reference Range Interpretation Comments Globulin (test code = 37669-9) 4.9 2.3-3.5 H [facility] IrvingAlbumin/Globulin Mqxth5202-97-95 14:37:00 * Test Item Value Reference Range Interpretation Comments Albumin/Globulin Ratio (test code = 1759-0) 0.7 0.8-2.0 L [facility] IrvingAlkaline Olklhtluzdw6672-37-05 14:37:00* Test Item Value Reference Range Interpretation Comments Alkaline Phosphatase (test code = 6768-6) 88 40-150 [facility] IrvingAmylase Gtvxo0154-11-77 14:37:00* Test Item Value Reference Range Interpretation Comments Amylase Level (test code = 1798-8) 51 25-125 [facility] IrvingLipase2018-07-02 14:37:00* Test Item Value Reference Range Interpretation Comments Lipase (test code = 3040-3) 27 8-78 [facility] IrvingUrine Amorphous Kewhrmwf2614-64-64 14:31:00* Test Item Value Reference Range Interpretation Comments Urine Amorphous Sediment (test code = 8246-1) MODERATE FEW H [facility] IrvingUrine Amorphous Cejjefqi6700-91-76 14:31:00* Test Item Value Reference Range Interpretation Comments Urine Amorphous Sediment (test code = 8246-1) MODERATE FEW H [facility] IrvingUrine Amorphous Uxvoszen9972-92-11 14:31:00* Test Item Value Reference Range Interpretation Comments Urine Amorphous Sediment (test code = 8246-1) MODERATE FEW H [facility] IrvingUrine Amorphous Csnizfkh9191-24-34 14:31:00* Test Item Value Reference Range Interpretation Comments Urine Amorphous Sediment (test code = 8246-1) MODERATE FEW H [facility] IrvingUrine Amorphous Jvjezkth3940-40-84 14:31:00* Test Item Value Reference Range Interpretation Comments Urine Amorphous Sediment (test code = 8246-1) MODERATE FEW H [facility] IrvingUrine Amorphous Bofyghgg6847-68-53 14:31:00* Test Item Value Reference Range Interpretation Comments Urine Amorphous Sediment (test code = 8246-1) MODERATE FEW H [facility] MarshallU[facility] Amorphous Ffsoqdxl3685-63-45 14:31:00* Test Item Value Reference Range Interpretation Comments Urine Amorphous Sediment (test code = 8246-1) MODERATE FEW H [facility] IrvingUrine Amorphous Vxymovjp4916-96-76 14:31:00* Test Item Value Reference Range Interpretation Comments Urine Amorphous Sediment (test code = 8246-1) MODERATE FEW H [facility] MarshallUrine Amorphous Qvuawkji7454-62-40 14:31:00* Test Item Value Reference Range Interpretation Comments Urine Amorphous Sediment (test code = 8246-1) MODERATE FEW H [facility] IrvingWhite Blood Rqlkn8335-51-48 14:17:00* Test Item Value Reference Range Interpretation Comments White Blood Count (test code = 6690-2) 7.92 4.8-10.8 [facility] IrvingRed Blood Kqnfu0968-00-76 14:17:00* Test Item Value Reference Range Interpretation Comments Red Blood Count (test code = 789-8) 4.05 3.6-5.1 [facility] IrvingHemoglobin2018-07-02 14:17:00* Test Item Value Reference Range Interpretation Comments Hemoglobin (test code = 96505-2) 10.4 12.0-16.0 L [facility] IrvingHematocrit2018-07-02 14:17:00* Test Item Value Reference Range Interpretation Comments Hematocrit (test code = 4544-3) 33.0 34.2-44.1 L [facility] IrvingMean Corpuscular Mkwydh3502-39-64 14:17:00* Test Item Value Reference Range Interpretation Comments Mean Corpuscular Volume (test code = 787-2) 81.5 81-99 [facility] IrvingMean Corpuscular Imouhpxava1304-63-02 14:17:00* Test Item Value Reference Range Interpretation Comments Mean Corpuscular Hemoglobin (test code = 785-6) 25.7 28-32 L [facility] IrvingMean Corpuscular Hemoglobin Concent 2017-08-10 14:17:00* Test Item Value Reference Range Interpretation Comments Mean Corpuscular Hemoglobin Concent (test code = 786-4) 31.5 31-35 [facility] IrvingRed Cell Distribution Quiat5261-70-49 14:17:00* Test Item Value Reference Range Interpretation Comments Red Cell Distribution Width (test code = 05212-6) 15.7 11.7 -14.4 H [facility] IrvingPlatelet Mluzg1889-06-06 14:17:00* Test Item Value Reference Range Interpretation Comments Platelet Count (test code = 777-3) 334 140-360 [facility] IrvingNeutrophils (%) (Auto)2017-08-10 14:17:00 * Test Item Value Reference Range Interpretation Comments Neutrophils (%) (Auto) (test code = 86279-8) 65.1 38.7-80.0 [facility] IrvingLymphocytes (%) (Auto)2017-08-10 14:17:00 * Test Item Value Reference Range Interpretation Comments Lymphocytes (%) (Auto) (test code = 736-9) 27.3 18.0-39.1 [facility] IrvingMonocytes (%) (Auto)2017-08-10 14:17:00* Test Item Value Reference Range Interpretation Comments Monocytes (%) (Auto) (test code = 5905-5) 4.9 4.4-11.3 [facility] IrvingEosinophils (%) (Auto)2017-08-10 14:17:00 * Test Item Value Reference Range Interpretation Comments Eosinophils (%) (Auto) (test code = 713-8) 1.8 0.0-6.0 [facility] IrvingBasophils (%) (Auto)2017-08-10 14:17:00* Test Item Value Reference Range Interpretation Comments Basophils (%) (Auto) (test code = 706-2) 0.6 0.0-1.0 [facility] IrvingIM GRANULOCYTES %2017-08-10 14:17:00* Test Item Value Reference Range Interpretation Comments IM GRANULOCYTES % (test code = IM GRANULOCYTES %) 0.3 0.0- 1.0 [facility] IrvingNeutrophils # (Auto)2017-08-10 14:17:00* Test Item Value Reference Range Interpretation Comments Neutrophils # (Auto) (test code = 751-8) 5.2 2.1-6.9 [facility] IrvingLymphocytes # (Auto)2017-08-10 14:17:00* Test Item Value Reference Range Interpretation Comments Lymphocytes # (Auto) (test code = 60951-0) 2.2 1.0-3.2 [facility] IrvingMonocytes # (Auto)2017-08-10 14:17:00* Test Item Value Reference Range Interpretation Comments Monocytes # (Auto) (test code = 742-7) 0.4 0.2-0.8 [facility] IrvingEosinophils # (Auto)2017-08-10 14:17:00* Test Item Value Reference Range Interpretation Comments Eosinophils # (Auto) (test code = 711-2) 0.1 0.0-0.4 [facility] IrvingBasophils # (Auto)2017-08-10 14:17:00* Test Item Value Reference Range Interpretation Comments Basophils # (Auto) (test code = 704-7) 0.1 0.0-0.1 [facility] IrvingAbsolute Immature Granulocyte (auto 2017-08-10 14:17:00* Test Item Value Reference Range Interpretation Comments Absolute Immature Granulocyte (auto (irena t code = Absolute Immature Granulocyte (auto) 0.02 0-0.1 [facility] IrvingUrine SXM4785-72-84 15:41:00* Test Item Value Reference Range Interpretation Comments Urine WBC (test code = 5821-4) 50- 0-5 H [facility] IrvingUrine YBD7918-96-18 15:41:00* Test Item Value Reference Range Interpretation Comments Urine RBC (test code = 79729-9) 11-20 0-5 H [facility] IrvingUrine Ksergogn9891-29-00 15:41:00* Test Item Value Reference Range Interpretation Comments Urine Bacteria (test code = 37980-4) MANY NONE H [facility] IrvingUrine Epithelial Iefey7045-58-49 15:41:00 * Test Item Value Reference Range Interpretation Comments Urine Epithelial Cells (test code = 14051-8) FEW NONE [facility] IrvingUrine CWV6436-18-46 15:41:00* Test Item Value Reference Range Interpretation Comments Urine WBC (test code = 5821-4) 50- 0-5 H [facility] IrvingUrine AKU8847-10-98 15:41:00* Test Item Value Reference Range Interpretation Comments Urine RBC (test code = 04435-4) 11-20 0-5 H [facility] IrvingUrine Flnkfqmy1637-46-77 15:41:00* Test Item Value Reference Range Interpretation Comments Urine Bacteria (test code = 04477-4) MANY NONE H [facility] IrvingUrine Epithelial Kfqmt8463-94-00 15:41:00 * Test Item Value Reference Range Interpretation Comments Urine Epithelial Cells (test code = 62345-7) FEW NONE [facility] IrvingUrine KIA4559-63-31 15:41:00* Test Item Value Reference Range Interpretation Comments Urine WBC (test code = 5821-4) 50- 0-5 H [facility] IrvingUrine HAH5821-15-96 15:41:00* Test Item Value Reference Range Interpretation Comments Urine RBC (test code = 15076-9) 11-20 0-5 H [facility] IrvingUrine Amohmwyh4705-82-73 15:41:00* Test Item Value Reference Range Interpretation Comments Urine Bacteria (test code = 38366-6) MANY NONE H [facility] IrvingUrine Epithelial Flklo7650-93-98 15:41:00 * Test Item Value Reference Range Interpretation Comments Urine Epithelial Cells (test code = 87531-1) FEW NONE [facility]entonodium Gscwv4501-23-65 15:33:00* Test Item Value Reference Range Interpretation Comments Sodium Level (test code = 2951-2) 137 136-145 [facility] IrvingPotassium Cbutl0793-31-45 15:33:00* Test Item Value Reference Range Interpretation Comments Potassium Level (test code = 2823-3) 3.3 3.5-5.1 L [facility] IrvingChloride Qgwfp6277-76-01 15:33:00* Test Item Value Reference Range Interpretation Comments Chloride Level (test code = 2075-0) 99 98-107 [facility] IrvingCarbon Dioxide Nasgj8186-91-17 15:33:00* Test Item Value Reference Range Interpretation Comments Carbon Dioxide Level (test code = 2028-9) 25 22-29 [facility] IrvingAnion Ucb5775-16-02 15:33:00* Test Item Value Reference Range Interpretation Comments Anion Gap (test code = 37314-1) 16.3 8-16 H [facility] IrvingBlood Urea Cfyucxbj7748-37-69 15:33:00* Test Item Value Reference Range Interpretation Comments Blood Urea Nitrogen (test code = 3094-0) 17 7-26 [facility] IrvingCreatinine2018-03-04 15:33:00* Test Item Value Reference Range Interpretation Comments Creatinine (test code = 2160-0) 0.99 0.57-1.11 [facility] IrvingBUN/Creatinine Ozujb6887-97-34 15:33:00* Test Item Value Reference Range Interpretation Comments BUN/Creatinine Ratio (test code = 3097-3) 17 6- [facility] IrvingEstimat Glomerular Filtration Rate 2017-04-12 15:33:00* Test Item Value Reference Range Interpretation Comments Estimat Glomerular Filtration Rate (test code = 80940-1) 58 >60 L Ranges were taken from the National Kidney Disease Education Program and the [facility] literature.Reference ranges:60 or greater: Tmvkvz42-92 ( for 3 consecutive months): Chronic kidney disease 15 or less: Kidney failureB[facility] Scott & [facility] – IrvingGlucose Mqffy6565-95-44 15:33:00* Test Item Value Reference Range Interpretation Comments Glucose Level (test code = WZN0971) 138 74-118 H [facility] IrvingCalcium Mtmeo4685-21-14 15:33:00* Test Item Value Reference Range Interpretation Comments Calcium Level (test code = 94913-5) 9.3 8.4-10.2 [facility] IrvingTotal Upbcxfhst9441-95-16 15:33:00* Test Item Value Reference Range Interpretation Comments Total Bilirubin (test code = 1975-2) 0.8 0.2-1.2 [facility] IrvingAspartate Amino Transf (AST/SGOT) 2017-04-12 15:33:00* Test Item Value Reference Range Interpretation Comments Aspartate Amino Transf (AST/SGOT) (test code = Aspartate Amino Transf (AST/SGOT)) 23 5-34 [facility] IrvingAlanine Aminotransferase (ALT/SGPT) 2017-04-12 15:33:00* Test Item Value Reference Range Interpretation Comments Alanine Aminotransferase (ALT/SGPT) (test code = 1742-6) 33 0-55 [facility] Ladhyhy4728-06-42 15:33:00* Test Item Value Reference Range Interpretation Comments Total Protein (test code = 2885-2) 8.5 6.5-8.1 H [facility] IrvingAlbumin2018-03-04 15:33:00* Test Item Value Reference Range Interpretation Comments Albumin (test code = 1751-7) 3.3 3.5-5.0 L [facility] IrvingGlobulin2018-03-04 15:33:00* Test Item Value Reference Range Interpretation Comments Globulin (test code = 31079-9) 5.2 2.3-3.5 H [facility] IrvingAlbumin/Globulin Dvfsv5818-59-06 15:33:00 * Test Item Value Reference Range Interpretation Comments Albumin/Globulin Ratio (test code = 1759-0) 0.6 0.8-2.0 L [facility] IrvingAlkaline Pjuabxzznaz2540-00-25 15:33:00* Test Item Value Reference Range Interpretation Comments Alkaline Phosphatase (test code = 6768-6) 92 40-150 [facility] Dentonodium Rfnet7113-40-15 15:33:00* Test Item Value Reference Range Interpretation Comments Sodium Level (test code = 2951-2) 137 136-145 [facility] IrvingPotassium Cbhtn1045-83-56 15:33:00* Test Item Value Reference Range Interpretation Comments Potassium Level (test code = 2823-3) 3.3 3.5-5.1 L [facility] IrvingChloride Ejsby3109-66-88 15:33:00* Test Item Value Reference Range Interpretation Comments Chloride Level (test code = 2075-0) 99 98-107 [facility] IrvingCarbon Dioxide Mfsks0495-56-59 15:33:00* Test Item Value Reference Range Interpretation Comments Carbon Dioxide Level (test code = 2028-9) 25 22-29 [facility] IrvingAnion Hib1536-52-61 15:33:00* Test Item Value Reference Range Interpretation Comments Anion Gap (test code = 99381-1) 16.3 8-16 H [facility] IrvingBlood Urea Isieqhmy2203-08-12 15:33:00* Test Item Value Reference Range Interpretation Comments Blood Urea Nitrogen (test code = 3094-0) 17 7-26 [facility] IrvingCreatinine2018-03-04 15:33:00* Test Item Value Reference Range Interpretation Comments Creatinine (test code = 2160-0) 0.99 0.57-1.11 [facility] IrvingBUN/Creatinine Uuvbd4138-11-25 15:33:00* Test Item Value Reference Range Interpretation Comments BUN/Creatinine Ratio (test code = 3097-3) 17 6-25 [facility] IrvingEstimat Glomerular Filtration Rate 2017-04-12 15:33:00* Test Item Value Reference Range Interpretation Comments Estimat Glomerular Filtration Rate (test code = 81364-6) 58 >60 L Ranges were taken from the National Kidney Disease Education Program and the [facility] [facility] Kid[facility] Foundation literature.Reference ranges:60 or greater: Yjwktp67-50 ( for 3 consecutive months): Chronic kidney disease 15 or less: Kidney failureBaylor Scott & White Medical Center – IrvingGlucose Xoptz0458-12-90 15:33:00* Test Item Value Reference Range Interpretation Comments Glucose Level (test code = MUM0563) 138 74-118 H [facility] IrvingCalcium Dvsam4359-99-88 15:33:00* Test Item Value Reference Range Interpretation Comments Calcium Level (test code = 61173-8) 9.3 8.4-10.2 [facility] IrvingTotal Keyyjwgiz5833-25-25 15:33:00* Test Item Value Reference Range Interpretation Comments Total Bilirubin (test code = 1975-2) 0.8 0.2-1.2 [facility] IrvingAspartate Amino Transf (AST/SGOT) 2017-04-12 15:33:00* Test Item Value Reference Range Interpretation Comments Aspartate Amino Transf (AST/SGOT) (test code = Aspartate Amino Transf (AST/SGOT)) 23 5-34 [facility] IrvingAlanine Aminotransferase (ALT/SGPT) 2017-04-12 15:33:00* Test Item Value Reference Range Interpretation Comments Alanine Aminotransferase (ALT/SGPT) (test code = 1742-6) 33 0-55 [facility] IrvingTotal Evznpet1309-46-79 15:33:00* Test Item Value Reference Range Interpretation Comments Total Protein (test code = 2885-2) 8.5 6.5-8.1 H [facility] IrvingAlbumin2018-03-04 15:33:00* Test Item Value Reference Range Interpretation Comments Albumin (test code = 1751-7) 3.3 3.5-5.0 L [facility] IrvingGlobulin2018-03-04 15:33:00* Test Item Value Reference Range Interpretation Comments Globulin (test code = 99055-5) 5.2 2.3-3.5 H [facility] IrvingAlbumin/Globulin Jqlkr8496-34-34 15:33:00 * Test Item Value Reference Range Interpretation Comments Albumin/Globulin Ratio (test code = 1759-0) 0.6 0.8-2.0 L [facility] IrvingAlkaline Ntsgfpwlhax2771-02-87 15:33:00* Test Item Value Reference Range Interpretation Comments Alkaline Phosphatase (test code = 6768-6) 92 40-150 [facility] Dentonodium Zpgda3804-64-63 15:33:00* Test Item Value Reference Range Interpretation Comments Sodium Level (test code = 2951-2) 137 136-145 [facility] IrvingPotassium Fazgb9590-74-03 15:33:00* Test Item Value Reference Range Interpretation Comments Potassium Level (test code = 2823-3) 3.3 3.5-5.1 L [facility] IrvingChloride Njkib1575-16-86 15:33:00* Test Item Value Reference Range Interpretation Comments Chloride Level (test code = 2075-0) 99 98-107 [facility] IrvingCarbon Dioxide Hamwz4174-98-39 15:33:00* Test Item Value Reference Range Interpretation Comments Carbon Dioxide Level (test code = 2028-9) 25 22-29 [facility] IrvingAnion Fgq3850-82-93 15:33:00* Test Item Value Reference Range Interpretation Comments Anion Gap (test code = 82146-2) 16.3 8-16 H [facility] IrvingBlood Urea Udiqmoso8639-06-51 15:33:00* Test Item Value Reference Range Interpretation Comments Blood Urea Nitrogen (test code = 3094-0) 17 7-26 [facility] IrvingCreatinine2018-03-04 15:33:00* Test Item Value Reference Range Interpretation Comments Creatinine (test code = 2160-0) 0.99 0.57-1.11 [facility] IrvingBUN/Creatinine Kfyed3780-81-12 15:33:00* Test Item Value Reference Range Interpretation Comments BUN/Creatinine Ratio (test code = 3097-3) 17 6-25 [facility] IrvingEstimat Glomerular Filtration Rate 2017-04-12 15:33:00* Test Item Value Reference Range Interpretation Comments Estimat Glomerular Filtration Rate (test code = 93102-6) 58 >60 L Ranges were taken from the National Kidney Disease Education Program and the [facility] literature.Reference ranges:60 or greater: Lsslnj87-60 ( for 3 consecutive months): Chronic kidney disease 15 or less: Kid[facility] failure[facility] IrvingGlucose Sjypz1590-12-46 15:33:00* Test Item Value Reference Range Interpretation Comments Glucose Level (test code = UMF4172) 138 74-118 H [facility] IrvingCalcium Inibh2522-38-72 15:33:00* Test Item Value Reference Range Interpretation Comments Calcium Level (test code = 50321-0) 9.3 8.4-10.2 [facility] IrvingTotal Lukgueyfd1075-38-93 15:33:00* Test Item Value Reference Range Interpretation Comments Total Bilirubin (test code = 1975-2) 0.8 0.2-1.2 [facility] IrvingAspartate Amino Transf (AST/SGOT) 2017-04-12 15:33:00* Test Item Value Reference Range Interpretation Comments Aspartate Amino Transf (AST/SGOT) (test code = Aspartate Amino Transf (AST/SGOT)) 23 5-34 [facility] IrvingAlanine Aminotransferase (ALT/SGPT) 2017-04-12 15:33:00* Test Item Value Reference Range Interpretation Comments Alanine Aminotransferase (ALT/SGPT) (test code = 1742-6) 33 0-55 [facility] IrvingTotal Xhwqntn5736-92-92 15:33:00* Test Item Value Reference Range Interpretation Comments Total Protein (test code = 2885-2) 8.5 6.5-8.1 H [facility] IrvingAlbumin2018-03-04 15:33:00* Test Item Value Reference Range Interpretation Comments Albumin (test code = 1751-7) 3.3 3.5-5.0 L [facility] IrvingGlobulin2018-03-04 15:33:00* Test Item Value Reference Range Interpretation Comments Globulin (test code = 49511-7) 5.2 2.3-3.5 H [facility] IrvingAlbumin/Globulin Ucthw3544-10-61 15:33:00 * Test Item Value Reference Range Interpretation Comments Albumin/Globulin Ratio (test code = 1759-0) 0.6 0.8-2.0 L [facility] IrvingAlkaline Rejdzmvgqjq2111-41-86 15:33:00* Test Item Value Reference Range Interpretation Comments Alkaline Phosphatase (test code = 6768-6) 92 40-150 [facility] IrvingUrine Fizk9448-18-50 15:23:00* Test Item Value Reference Range Interpretation Comments Urine Test (test code = 2106-3) NEGATIVE NEGATIVE [facility] IrvingUrine Yijd5393-74-51 15:23:00* Test Item Value Reference Range Interpretation Comments Urine Test (test code = 2106-3) NEGATIVE NEGATIVE [facility] IrvingUrine Mckm7315-36-40 15:23:00* Test Item Value Reference Range Interpretation Comments Urine Test (test code = 2106-3) NEGATIVE NEGATIVE [facility] IrvingUrine Opay0784-46-48 15:23:00* Test Item Value Reference Range Interpretation Comments Urine Test (test code = 2106-3) NEGATIVE NEGATIVE [facility] IrvingUrine Wjui9974-36-14 15:23:00* Test Item Value Reference Range Interpretation Comments Urine Test (test code = 2106-3) NEGATIVE NEGATIVE [facility] IrvingUrine Rrze9032-65-15 15:23:00* Test Item Value Reference Range Interpretation Comments Urine Test (test code = 2106-3) NEGATIVE NEGATIVE [facility] IrvingUrine Lutv2501-44-13 15:23:00* Test Item Value Reference Range Interpretation Comments Urine Test (test code = 2106-3) NEGATIVE NEGATIVE [facility] IrvingUrine Iaimi4587-68-33 15:21:00* Test Item Value Reference Range Interpretation Comments Urine Color (test code = 5778-6) YELLOW YELLOW [facility] IrvingUrine Fboiugp3728-97-87 15:21:00* Test Item Value Reference Range Interpretation Comments Urine Clarity (test code = 28931-2) CLOUDY CLEAR H [facility] IrvingUrine Specific Pwptype1354-42-60 15:21:00 * Test Item Value Reference Range Interpretation Comments Urine Specific [place] (test code = 5811-5) 1.010 1.010-1.02 5 [facility] IrvingUrine nJ6590-80-87 15:21:00* Test Item Value Reference Range Interpretation Comments Urine pH (test code = 69492-3) 6 5-7 [facility] IrvingUrine Leukocyte Djtfkvxd5576-23-91 15:21:00* Test Item Value Reference Range Interpretation Comments Urine Leukocyte Esterase (test code = 5799-2) 2+ NEGATIVE H [facility] IrvingUrine Kfhhlwa7944-66-50 15:21:00* Test Item Value Reference Range Interpretation Comments Urine Nitrite (test code = 28688-4) NEGATIVE NEGATIVE [facility] IrvingUrine Clndrnr1827-52-33 15:21:00* Test Item Value Reference Range Interpretation Comments Urine Protein (test code = 5804-0) 2+ NEGATIVE H [facility] IrvingUrine Glucose (UA)2017-04-12 15:21:00* Test Item Value Reference Range Interpretation Comments Urine Glucose (UA) (test code = 2349-9) NEGATIVE NEGATIVE [facility] IrvingUrine Ducwufs3375-23-85 15:21:00* Test Item Value Reference Range Interpretation Comments Urine Ketones (test code = 17068-8) NEGATIVE NEGATIVE [facility] Iytdgxfcsbge7188-99-68 15:21:00* Test Item Value Reference Range Interpretation Comments Urine Urobilinogen (test code = 37353-6) 1 0.2-1 [facility] IrvingUrine Zjaupieau2975-97-75 15:21:00* Test Item Value Reference Range Interpretation Comments Urine Bilirubin (test code = 1978-6) 1+ NEGATIVE H [facility] Ofdza9639-81-74 15:21:00* Test Item Value Reference Range Interpretation Comments Urine Blood (test code = 14168-6) 4+ NEGATIVE H [facility] IrvingUrine Coxcx8257-26-01 15:21:00* Test Item Value Reference Range Interpretation Comments Urine Color (test code = 5778-6) YELLOW YELLOW [facility] IrvingUrine Swkphmp3817-33-49 15:21:00* Test Item Value Reference Range Interpretation Comments Urine Clarity (test code = 91056-9) CLOUDY CLEAR H [facility] IrvingUrine Specific Qzfghnx9994-08-91 15:21:00 * Test Item Value Reference Range Interpretation Comments Urine Specific [place] (test code = 5811-5) 1.010 1.010-1.02 5 [facility] IrvingUrine wH1865-67-93 15:21:00* Test Item Value Reference Range Interpretation Comments Urine pH (test code = 90157-7) 6 5-7 [facility] IrvingU[facility] Leukocyte Eviancil3176-37-06 15:21:00* Test Item Value Reference Range Interpretation Comments Urine Leukocyte Esterase (test code = 5799-2) 2+ NEGATIVE H [facility] IrvingUrine Xrbmdkf7078-41-54 15:21:00* Test Item Value Reference Range Interpretation Comments Urine Nitrite (test code = 85604-6) NEGATIVE NEGATIVE [facility] IrvingU[facility] Wtgxqto4477-24-57 15:21:00* Test Item Value Reference Range Interpretation Comments Urine Protein (test code = 5804-0) 2+ NEGATIVE H [facility] IrvingUrine Glucose (UA)2017-04-12 15:21:00* Test Item Value Reference Range Interpretation Comments Urine Glucose (UA) (test code = 2349-9) NEGATIVE NEGATIVE [facility] IrvingUrine Tanlica2082-23-18 15:21:00* Test Item Value Reference Range Interpretation Comments Urine Ketones (test code = 29565-8) NEGATIVE NEGATIVE [facility] IrvingUrine Mhortvtnvauw1812-22-73 15:21:00* Test Item Value Reference Range Interpretation Comments Urine Urobilinogen (test code = 31317-7) 1 0.2-1 [facility] IrvingU[facility] Cylcufgwc5970-03-13 15:21:00* Test Item Value Reference Range Interpretation Comments Urine Bilirubin (test code = 1978-6) 1+ NEGATIVE H [facility] IrvingUrine Dtveb5474-48-74 15:21:00* Test Item Value Reference Range Interpretation Comments Urine Blood (test code = 46997-0) 4+ NEGATIVE H [facility] IrvingUrine Tvgwx4036-04-57 15:21:00* Test Item Value Reference Range Interpretation Comments Urine Color (test code = 5778-6) YELLOW YELLOW [facility] IrvingUrine Fkhhpzi8267-98-92 15:21:00* Test Item Value Reference Range Interpretation Comments Urine Clarity (test code = 71006-6) CLOUDY CLEAR H [facility] IrvingUrine Specific Xwmheyf7959-00-00 15:21:00 * Test Item Value Reference Range Interpretation Comments Urine Specific [place] (test code = 5811-5) 1.010 1.010-1.02 5 [facility] IrvingUrine oY1477-73-67 15:21:00* Test Item Value Reference Range Interpretation Comments Urine pH (test code = 15307-3) 6 5-7 [facility] Leukocyte Vnvcxjod4020-60-02 15:21:00* Test Item Value Reference Range Interpretation Comments Urine Leukocyte Esterase (test code = 5799-2) 2+ NEGATIVE H [facility] Wfurkko6683-87-39 15:21:00* Test Item Value Reference Range Interpretation Comments Urine Nitrite (test code = 68415-0) NEGATIVE NEGATIVE [facility] Jlkljkf8167-03-47 15:21:00* Test Item Value Reference Range Interpretation Comments Urine Protein (test code = 5804-0) 2+ NEGATIVE H [facility] Glucose (UA)2017-04-12 15:21:00* Test Item Value Reference Range Interpretation Comments Urine Glucose (UA) (test code = 2349-9) NEGATIVE NEGATIVE [facility] Ergtobj0340-82-70 15:21:00* Test Item Value Reference Range Interpretation Comments Urine Ketones (test code = 68638-1) NEGATIVE NEGATIVE [facility] Iiuipebzhumt5896-24-83 15:21:00* Test Item Value Reference Range Interpretation Comments Urine Urobilinogen (test code = 92014-1) 1 0.2-1 [facility] IrvingUrine Sxenkzwhq7311-11-82 15:21:00* Test Item Value Reference Range Interpretation Comments Urine Bilirubin (test code = 1978-6) 1+ NEGATIVE H [facility] Ksmqt3131-35-44 15:21:00* Test Item Value Reference Range Interpretation Comments Urine Blood (test code = 78897-9) 4+ NEGATIVE H [facility] IrvingWhite Blood Memys4060-83-91 14:58:00* Test Item Value Reference Range Interpretation Comments White Blood Count (test code = 6690-2) 11.11 4.8-10.8 H [facility] IrvingRed Blood Kzqzj9994-23-57 14:58:00* Test Item Value Reference Range Interpretation Comments Red Blood Count (test code = 789-8) 4.39 3.6-5.1 [facility] IrvingHemoglobin2018-03-04 14:58:00* Test Item Value Reference Range Interpretation Comments Hemoglobin (test code = 12083-4) 11.2 12.0-16.0 L [facility] IrvingHematocrit2018-03-04 14:58:00* Test Item Value Reference Range Interpretation Comments Hematocrit (test code = 4544-3) 34.9 34.2-44.1 [facility] IrvingMean Corpuscular Zdmeqr6986-84-08 14:58:00* Test Item Value Reference Range Interpretation Comments Mean Corpuscular Volume (test code = 787-2) 79.5 81-99 L [facility] IrvingMean Corpuscular Mfziadmtev5656-32-95 14:58:00* Test Item Value Reference Range Interpretation Comments Mean Corpuscular Hemoglobin (test code = 785-6) 25.5 28-32 L [facility] IrvingMean Corpuscular Hemoglobin Concent 2017-04-12 14:58:00* Test Item Value Reference Range Interpretation Comments Mean Corpuscular Hemoglobin Concent (test code = 786-4) 32.1 31-35 [facility] IrvingRed Cell Distribution Bwmog7398-93-80 14:58:00* Test Item Value Reference Range Interpretation Comments Red Cell Distribution Width (test code = 61800-1) 15.2 11.7 -14.4 H [facility] IrvingPlatelet Sxovm2518-20-21 14:58:00* Test Item Value Reference Range Interpretation Comments Platelet Count (test code = 777-3) 249 140-360 [facility] IrvingNeutrophils (%) (Auto)2017-04-12 14:58:00 * Test Item Value Reference Range Interpretation Comments Neutrophils (%) (Auto) (test code = 99954-9) 73.3 38.7-80.0 [facility] IrvingLymphocytes (%) (Auto)2017-04-12 14:58:00 * Test Item Value Reference Range Interpretation Comments Lymphocytes (%) (Auto) (test code = 736-9) 16.7 18.0-39.1 L [facility] IrvingMonocytes (%) (Auto)2017-04-12 14:58:00* Test Item Value Reference Range Interpretation Comments Monocytes (%) (Auto) (test code = 5905-5) 8.8 4.4-11.3 [facility] IrvingEosinophils (%) (Auto)2017-04-12 14:58:00 * Test Item Value Reference Range Interpretation Comments Eosinophils (%) (Auto) (test code = 713-8) 0.5 0.0-6.0 [facility] IrvingBasophils (%) (Auto)2017-04-12 14:58:00* Test Item Value Reference Range Interpretation Comments Basophils (%) (Auto) (test code = 706-2) 0.3 0.0-1.0 [facility] IrvingIM GRANULOCYTES %2017-04-12 14:58:00* Test Item Value Reference Range Interpretation Comments IM GRANULOCYTES % (test code = IM GRANULOCYTES %) 0.4 0.0- 1.0 [facility] IrvingNeutrophils # (Auto)2017-04-12 14:58:00* Test Item Value Reference Range Interpretation Comments Neutrophils # (Auto) (test code = 751-8) 8.2 2.1-6.9 H [facility] IrvingLymphocytes # (Auto)2017-04-12 14:58:00* Test Item Value Reference Range Interpretation Comments Lymphocytes # (Auto) (test code = 08435-3) 1.9 1.0-3.2 [facility] IrvingMonocytes # (Auto)2017-04-12 14:58:00* Test Item Value Reference Range Interpretation Comments Monocytes # (Auto) (test code = 742-7) 1.0 0.2-0.8 H [facility] IrvingEosinophils # (Auto)2017-04-12 14:58:00* Test Item Value Reference Range Interpretation Comments Eosinophils # (Auto) (test code = 711-2) 0.1 0.0-0.4 [facility] IrvingBasophils # (Auto)2017-04-12 14:58:00* Test Item Value Reference Range Interpretation Comments Basophils # (Auto) (test code = 704-7) 0.0 0.0-0.1 [facility] IrvingAbsolute Immature Granulocyte (auto 2017-04-12 14:58:00* Test Item Value Reference Range Interpretation Comments Absolute Immature Granulocyte (auto (irena t code = Absolute Immature Granulocyte (auto) 0.04 0-0.1 [facility] IrvingWhite Blood Ziihi9233-92-15 14:58:00* Test Item Value Reference Range Interpretation Comments White Blood Count (test code = 6690-2) 11.11 4.8-10.8 H [facility] IrvingRed Blood Glwej0018-70-79 14:58:00* Test Item Value Reference Range Interpretation Comments Red Blood Count (test code = 789-8) 4.39 3.6-5.1 [facility] IrvingHemoglobin2018-03-04 14:58:00* Test Item Value Reference Range Interpretation Comments Hemoglobin (test code = 70185-1) 11.2 12.0-16.0 L [facility] IrvingHematocrit2018-03-04 14:58:00* Test Item Value Reference Range Interpretation Comments Hematocrit (test code = 4544-3) 34.9 34.2-44.1 [facility] IrvingMean Corpuscular Najgvx2925-30-72 14:58:00* Test Item Value Reference Range Interpretation Comments Mean Corpuscular Volume (test code = 787-2) 79.5 81-99 L [facility] IrvingMean Corpuscular Blzczbrkpr9835-48-19 14:58:00* Test Item Value Reference Range Interpretation Comments Mean Corpuscular Hemoglobin (test code = 785-6) 25.5 28-32 L [facility] IrvingMean Corpuscular Hemoglobin Concent 2017-04-12 14:58:00* Test Item Value Reference Range Interpretation Comments Mean Corpuscular Hemoglobin Concent (test code = 786-4) 32.1 31-35 [facility] IrvingRed Cell Distribution Pfbam4692-23-26 14:58:00* Test Item Value Reference Range Interpretation Comments Red Cell Distribution Width (test code = 78397-1) 15.2 11.7 -14.4 H [facility] IrvingPlatelet Kzjrc7964-32-70 14:58:00* Test Item Value Reference Range Interpretation Comments Platelet Count (test code = 777-3) 249 140-360 [facility] IrvingNeutrophils (%) (Auto)2017-04-12 14:58:00 * Test Item Value Reference Range Interpretation Comments Neutrophils (%) (Auto) (test code = 38470-4) 73.3 38.7-80.0 [facility] IrvingLymphocytes (%) (Auto)2017-04-12 14:58:00 * Test Item Value Reference Range Interpretation Comments Lymphocytes (%) (Auto) (test code = 736-9) 16.7 18.0-39.1 L [facility] IrvingMonocytes (%) (Auto)2017-04-12 14:58:00* Test Item Value Reference Range Interpretation Comments Monocytes (%) (Auto) (test code = 5905-5) 8.8 4.4-11.3 [facility] IrvingEosinophils (%) (Auto)2017-04-12 14:58:00 * Test Item Value Reference Range Interpretation Comments Eosinophils (%) (Auto) (test code = 713-8) 0.5 0.0-6.0 [facility] IrvingBasophils (%) (Auto)2017-04-12 14:58:00* Test Item Value Reference Range Interpretation Comments Basophils (%) (Auto) (test code = 706-2) 0.3 0.0-1.0 [facility] IrvingIM GRANULOCYTES %2017-04-12 14:58:00* Test Item Value Reference Range Interpretation Comments IM GRANULOCYTES % (test code = IM GRANULOCYTES %) 0.4 0.0- 1.0 [facility] IrvingNeutrophils # (Auto)2017-04-12 14:58:00* Test Item Value Reference Range Interpretation Comments Neutrophils # (Auto) (test code = 751-8) 8.2 2.1-6.9 H [facility] IrvingLymphocytes # (Auto)2017-04-12 14:58:00* Test Item Value Reference Range Interpretation Comments Lymphocytes # (Auto) (test code = 22789-7) 1.9 1.0-3.2 [facility] IrvingMonocytes # (Auto)2017-04-12 14:58:00* Test Item Value Reference Range Interpretation Comments Monocytes # (Auto) (test code = 742-7) 1.0 0.2-0.8 H [facility] IrvingEosinophils # (Auto)2017-04-12 14:58:00* Test Item Value Reference Range Interpretation Comments Eosinophils # (Auto) (test code = 711-2) 0.1 0.0-0.4 [facility] IrvingBasophils # (Auto)2017-04-12 14:58:00* Test Item Value Reference Range Interpretation Comments Basophils # (Auto) (test code = 704-7) 0.0 0.0-0.1 [facility] IrvingAbsolute Immature Granulocyte (auto 2017-04-12 14:58:00* Test Item Value Reference Range Interpretation Comments Absolute Immature Granulocyte (auto (irena t code = Absolute Immature Granulocyte (auto) 0.04 0-0.1 [facility] IrvingWhite Blood Ygcrs0311-75-03 14:58:00* Test Item Value Reference Range Interpretation Comments White Blood Count (test code = 6690-2) 11.11 4.8-10.8 H [facility] IrvingRed Blood Silbl2556-41-32 14:58:00* Test Item Value Reference Range Interpretation Comments Red Blood Count (test code = 789-8) 4.39 3.6-5.1 [facility] IrvingHemoglobin2018-03-04 14:58:00* Test Item Value Reference Range Interpretation Comments Hemoglobin (test code = 24391-1) 11.2 12.0-16.0 L [facility] IrvingHematocrit2018-03-04 14:58:00* Test Item Value Reference Range Interpretation Comments Hematocrit (test code = 4544-3) 34.9 34.2-44.1 [facility] IrvingMean Corpuscular Fymrqe0855-39-89 14:58:00* Test Item Value Reference Range Interpretation Comments Mean Corpuscular Volume (test code = 787-2) 79.5 81-99 L [facility] IrvingMean Corpuscular Dvgmiybxog8798-73-14 14:58:00* Test Item Value Reference Range Interpretation Comments Mean Corpuscular Hemoglobin (test code = 785-6) 25.5 28-32 L [facility] IrvingMean Corpuscular Hemoglobin Concent 2017-04-12 14:58:00* Test Item Value Reference Range Interpretation Comments Mean Corpuscular Hemoglobin Concent (test code = 786-4) 32.1 31-35 [facility] IrvingRed Cell Distribution Iostu0813-91-75 14:58:00* Test Item Value Reference Range Interpretation Comments Red Cell Distribution Width (test code = 73509-7) 15.2 11.7 -14.4 H [facility] IrvingPlatelet Fnhkc5449-10-41 14:58:00* Test Item Value Reference Range Interpretation Comments Platelet Count (test code = 777-3) 249 140-360 [facility] IrvingNeutrophils (%) (Auto)2017-04-12 14:58:00 * Test Item Value Reference Range Interpretation Comments Neutrophils (%) (Auto) (test code = 31780-9) 73.3 38.7-80.0 [facility] IrvingLymphocytes (%) (Auto)2017-04-12 14:58:00 * Test Item Value Reference Range Interpretation Comments Lymphocytes (%) (Auto) (test code = 736-9) 16.7 18.0-39.1 L [facility] IrvingMonocytes (%) (Auto)2017-04-12 14:58:00* Test Item Value Reference Range Interpretation Comments Monocytes (%) (Auto) (test code = 5905-5) 8.8 4.4-11.3 [facility] IrvingEosinophils (%) (Auto)2017-04-12 14:58:00 * Test Item Value Reference Range Interpretation Comments Eosinophils (%) (Auto) (test code = 713-8) 0.5 0.0-6.0 [facility] IrvingBasophils (%) (Auto)2017-04-12 14:58:00* Test Item Value Reference Range Interpretation Comments Basophils (%) (Auto) (test code = 706-2) 0.3 0.0-1.0 [facility] IrvingIM GRANULOCYTES %2017-04-12 14:58:00* Test Item Value Reference Range Interpretation Comments IM GRANULOCYTES % (test code = IM GRANULOCYTES %) 0.4 0.0- 1.0 [facility] IrvingNeutrophils # (Auto)2017-04-12 14:58:00* Test Item Value Reference Range Interpretation Comments Neutrophils # (Auto) (test code = 751-8) 8.2 2.1-6.9 H [facility] IrvingLymphocytes # (Auto)2017-04-12 14:58:00* Test Item Value Reference Range Interpretation Comments Lymphocytes # (Auto) (test code = 76061-7) 1.9 1.0-3.2 [facility] IrvingMonocytes # (Auto)2017-04-12 14:58:00* Test Item Value Reference Range Interpretation Comments Monocytes # (Auto) (test code = 742-7) 1.0 0.2-0.8 H [facility] IrvingEosinophils # (Auto)2017-04-12 14:58:00* Test Item Value Reference Range Interpretation Comments Eosinophils # (Auto) (test code = 711-2) 0.1 0.0-0.4 [facility] IrvingBasophils # (Auto)2017-04-12 14:58:00* Test Item Value Reference Range Interpretation Comments Basophils # (Auto) (test code = 704-7) 0.0 0.0-0.1 [facility] IrvingAbsolute Immature Granulocyte (auto 2017-04-12 14:58:00* Test Item Value Reference Range Interpretation Comments Absolute Immature Granulocyte (auto (irena t code = Absolute Immature Granulocyte (auto) 0.04 0-0.1 [facility]2018-02-04 06:21:00* Test Item Value Reference Range Interpretation Comments Urine Culture (test code = 630-4) Organism: VALERIO ALBICANS [facility]2018-02-04 06:21:00* Test Item Value Reference Range Interpretation Comments Urine Culture (test code = 630-4) Organism: VALERIO ALBICANS [facility]2018-02-04 06:21:00* Test Item Value Reference Range Interpretation Comments Urine Culture (test code = 630-4) Organism: VALERIO ALBICANS [facility]2018-02-04 06:21:00* Test Item Value Reference Range Interpretation Comments Urine Culture (test code = 630-4) Organism: VALERIO ALBICANS [facility]2018-02-04 06:13:00* Test Item Value Reference Range Interpretation Comments Urine Culture (test code = 630-4) Organism: VALERIO ALBICANS [facility]2018-02-04 06:13:00* Test Item Value Reference Range Interpretation Comments Urine Culture (test code = 630-4) Organism: VALERIO ALBICANS [facility]2018-02-04 06:13:00* Test Item Value Reference Range Interpretation Comments Urine Culture (test code = 630-4) Organism: VALERIO ALBICANS [facility]2018-02-04 06:13:00* Test Item Value Reference Range Interpretation Comments Urine Culture (test code = 630-4) Organism: VALERIO ALBICANS [facility]2018-02-04 06:13:00* Test Item Value Reference Range Interpretation Comments Urine Culture (test code = 630-4) Organism: VALERIO ALBICANS [facility]2018-02-04 06:13:00* Test Item Value Reference Range Interpretation Comments Urine Culture (test code = 630-4) Organism: VALERIO ALBICANS [facility] Nkuut9904-20-53 07:24:00* Test Item Value Reference Range Interpretation Comments Sodium Level (test code = 2951-2) 142 136-145 [facility] IrvingPotassium Bdpdm5190-68-44 07:24:00* Test Item Value Reference Range Interpretation Comments Potassium Level (test code = 2823-3) 3.1 3.5-5.1 L [facility] IrvingChloride Gvqgz9493-07-68 07:24:00* Test Item Value Reference Range Interpretation Comments Chloride Level (test code = 2075-0) 108 98-107 H [facility] IrvingCarbon Dioxide Qoihr7656-80-55 07:24:00* Test Item Value Reference Range Interpretation Comments Carbon Dioxide Level (test code = 2028-9) 27 22-29 [facility] IrvingAnion Dsr8829-48-60 07:24:00* Test Item Value Reference Range Interpretation Comments Anion Gap (test code = 40509-4) 10.1 8-16 [facility] IrvingBlood Urea Ssdfbafq3861-60-88 07:24:00* Test Item Value Reference Range Interpretation Comments Blood Urea Nitrogen (test code = 3094-0) 7 7-26 [facility] IrvingCreatinine2018-02-03 07:24:00* Test Item Value Reference Range Interpretation Comments Creatinine (test code = 2160-0) 0.68 0.57-1.11 [facility] IrvingBUN/Creatinine Macst5789-29-61 07:24:00* Test Item Value Reference Range Interpretation Comments BUN/Creatinine Ratio (test code = 3097-3) 10 6-25 [facility] IrvingEstimat Glomerular Filtration Rate 2017-03-14 07:24:00* Test Item Value Reference Range Interpretation Comments Estimat Glomerular Filtration Rate (test code = 48824-3) 60- >60 Ranges were taken from the National Kidney Disease Education Program and the [facility] Foundation literature.Reference ranges:60 or greater: Bwkhdg84-10 ( for 3 consecutive months): Chronic kidney disease 15 or less: Kidney failureB[facility] & [facility] – IrvingGlucose Ozkjv0106-62-15 07:24:00* Test Item Value Reference Range Interpretation Comments Glucose Level (test code = IKQ2071) 127 74-118 H [facility] IrvingCalcium Ksort1445-83-48 07:24:00* Test Item Value Reference Range Interpretation Comments Calcium Level (test code = 60163-2) 8.8 8.4-10.2 [facility] IrvingUrine Kmiummp7171-23-44 06:48:00* Test Item Value Reference Range Interpretation Comments Urine Culture (test code = 630-4) Organism: YEAST SPECIES [facility] IrvingWhite Blood Uswdb7314-60-79 06:45:00* Test Item Value Reference Range Interpretation Comments White Blood Count (test code = 6690-2) 7.03 4.8-10.8 [facility] IrvingRed Blood Cavwz1072-57-90 06:45:00* Test Item Value Reference Range Interpretation Comments Red Blood Count (test code = 789-8) 3.86 3.6-5.1 [facility] IrvingHemoglobin2018-02-03 06:45:00* Test Item Value Reference Range Interpretation Comments Hemoglobin (test code = 41093-1) 10.0 12.0-16.0 L [facility] IrvingHematocrit2018-02-03 06:45:00* Test Item Value Reference Range Interpretation Comments Hematocrit (test code = 4544-3) 32.0 34.2-44.1 L [facility] IrvingMean Corpuscular Azyoeo8459-94-01 06:45:00* Test Item Value Reference Range Interpretation Comments Mean Corpuscular Volume (test code = 787-2) 82.9 81-99 [facility] IrvingMean Corpuscular Ccyaahjtvr1525-97-85 06:45:00* Test Item Value Reference Range Interpretation Comments Mean Corpuscular Hemoglobin (test code = 785-6) 25.9 28-32 L [facility] IrvingMean Corpuscular Hemoglobin Concent 2017-03-14 06:45:00* Test Item Value Reference Range Interpretation Comments Mean Corpuscular Hemoglobin Concent (test code = 786-4) 31.3 31-35 [facility] IrvingRed Cell Distribution Soafm7177-71-88 06:45:00* Test Item Value Reference Range Interpretation Comments Red Cell Distribution Width (test code = 48777-7) 15.3 11.7 -14.4 H [facility] IrvingPlatelet Hpdky1167-59-36 06:45:00* Test Item Value Reference Range Interpretation Comments Platelet Count (test code = 777-3) 238 140-360 [facility] IrvingNeutrophils (%) (Auto)2017-03-14 06:45:00 * Test Item Value Reference Range Interpretation Comments Neutrophils (%) (Auto) (test code = 65183-1) 61.4 38.7-80.0 [facility] IrvingLymphocytes (%) (Auto)2017-03-14 06:45:00 * Test Item Value Reference Range Interpretation Comments Lymphocytes (%) (Auto) (test code = 736-9) 29.0 18.0-39.1 [facility] IrvingMonocytes (%) (Auto)2017-03-14 06:45:00* Test Item Value Reference Range Interpretation Comments Monocytes (%) (Auto) (test code = 5905-5) 7.3 4.4-11.3 [facility] IrvingEosinophils (%) (Auto)2017-03-14 06:45:00 * Test Item Value Reference Range Interpretation Comments Eosinophils (%) (Auto) (test code = 713-8) 1.6 0.0-6.0 [facility] IrvingBasophils (%) (Auto)2017-03-14 06:45:00* Test Item Value Reference Range Interpretation Comments Basophils (%) (Auto) (test code = 706-2) 0.3 0.0-1.0 [facility] IrvingIM GRANULOCYTES %2017-03-14 06:45:00* Test Item Value Reference Range Interpretation Comments IM GRANULOCYTES % (test code = IM GRANULOCYTES %) 0.4 0.0- 1.0 [facility] IrvingNeutrophils # (Auto)2017-03-14 06:45:00* Test Item Value Reference Range Interpretation Comments Neutrophils # (Auto) (test code = 751-8) 4.3 2.1-6.9 [facility] IrvingLymphocytes # (Auto)2017-03-14 06:45:00* Test Item Value Reference Range Interpretation Comments Lymphocytes # (Auto) (test code = 96995-7) 2.0 1.0-3.2 [facility] IrvingMonocytes # (Auto)2017-03-14 06:45:00* Test Item Value Reference Range Interpretation Comments Monocytes # (Auto) (test code = 742-7) 0.5 0.2-0.8 [facility] IrvingEosinophils # (Auto)2017-03-14 06:45:00* Test Item Value Reference Range Interpretation Comments Eosinophils # (Auto) (test code = 711-2) 0.1 0.0-0.4 [facility] IrvingBasophils # (Auto)2017-03-14 06:45:00* Test Item Value Reference Range Interpretation Comments Basophils # (Auto) (test code = 704-7) 0.0 0.0-0.1 [facility] IrvingAbsolute Immature Granulocyte (auto 2017-03-14 06:45:00* Test Item Value Reference Range Interpretation Comments Absolute Immature Granulocyte (auto (irena t code = Absolute Immature Granulocyte (auto) 0.03 0-0.1 [facility] IrvingTotal Iiigukwqf0287-24-33 06:49:00* Test Item Value Reference Range Interpretation Comments Total Bilirubin (test code = 1975-2) 0.6 0.2-1.2 [facility] IrvingAspartate Amino Transf (AST/SGOT) 2017-03-12 06:49:00* Test Item Value Reference Range Interpretation Comments Aspartate Amino Transf (AST/SGOT) (test code = Aspartate Amino Transf (AST/SGOT)) 18 5-34 [facility] IrvingAlanine Aminotransferase (ALT/SGPT) 2017-03-12 06:49:00* Test Item Value Reference Range Interpretation Comments Alanine Aminotransferase (ALT/SGPT) (test code = 1742-6) 28 0-55 [facility] IrvingTotal Rzwouhu5086-07-19 06:49:00* Test Item Value Reference Range Interpretation Comments Total Protein (test code = 2885-2) 6.9 6.5-8.1 [facility] IrvingAlbumin2018-02-01 06:49:00* Test Item Value Reference Range Interpretation Comments Albumin (test code = 1751-7) 2.8 3.5-5.0 L [facility] IrvingGlobulin2018-02-01 06:49:00* Test Item Value Reference Range Interpretation Comments Globulin (test code = 32986-2) 4.1 2.3-3.5 H [facility] IrvingAlbumin/Globulin Ibljj5980-27-62 06:49:00 * Test Item Value Reference Range Interpretation Comments Albumin/Globulin Ratio (test code = 1759-0) 0.7 0.8-2.0 L [facility] IrvingAlkaline Shpohocherg8959-81-27 06:49:00* Test Item Value Reference Range Interpretation Comments Alkaline Phosphatase (test code = 6768-6) 82 40-150 [facility] IrvingUrine RER3373-20-13 04:16:00* Test Item Value Reference Range Interpretation Comments Urine WBC (test code = 5821-4) 50- 0-5 H [facility] IrvingUrine WDM4934-77-51 04:16:00* Test Item Value Reference Range Interpretation Comments Urine RBC (test code = 12686-9) 50- 0-5 H [facility] IrvingUrine Gxgraela0488-30-35 04:16:00* Test Item Value Reference Range Interpretation Comments Urine Bacteria (test code = 97653-7) MODERATE NONE H [facility] IrvingUrine Epithelial Upmvr7813-85-93 04:16:00 * Test Item Value Reference Range Interpretation Comments Urine Epithelial Cells (test code = 25767-3) RARE NONE [facility] IrvingUrine Mllwo0333-44-37 04:08:00* Test Item Value Reference Range Interpretation Comments Urine Color (test code = 5778-6) YELLOW YELLOW [facility] IrvingUrine Fxwmxmg8519-85-31 04:08:00* Test Item Value Reference Range Interpretation Comments Urine Clarity (test code = 42418-9) CLOUDY CLEAR H [facility] IrvingUrine Specific Dwwxiit7407-69-38 04:08:00 * Test Item Value Reference Range Interpretation Comments Urine Specific [place] (test code = 5811-5) 1.010 1.010-1.02 5 [facility] IrvingUrine hG1659-95-19 04:08:00* Test Item Value Reference Range Interpretation Comments Urine pH (test code = 59732-0) 6 5-7 [facility] IrvingUrine Leukocyte Xcndnfjc4260-83-80 04:08:00* Test Item Value Reference Range Interpretation Comments Urine Leukocyte Esterase (test code = 5799-2) 2+ NEGATIVE H [facility] Epaoyus9013-35-89 04:08:00* Test Item Value Reference Range Interpretation Comments Urine Nitrite (test code = 18289-9) NEGATIVE NEGATIVE [facility] Vuvjdet7275-56-29 04:08:00* Test Item Value Reference Range Interpretation Comments Urine Protein (test code = 5804-0) 2+ NEGATIVE H [facility] Glucose (UA)2017-03-11 04:08:00* Test Item Value Reference Range Interpretation Comments Urine Glucose (UA) (test code = 2349-9) NEGATIVE NEGATIVE [facility] Gbrwqpu9082-43-45 04:08:00* Test Item Value Reference Range Interpretation Comments Urine Ketones (test code = 06694-3) NEGATIVE NEGATIVE [facility] IrvingUrine Zgftthsdhpmc7563-21-38 04:08:00* Test Item Value Reference Range Interpretation Comments Urine Urobilinogen (test code = 24910-0) 0.2 0.2-1 [facility] IrvingUrine Frdkshgzo8107-81-27 04:08:00* Test Item Value Reference Range Interpretation Comments Urine Bilirubin (test code = 1978-6) NEGATIVE NEGATIVE [facility] Fmxwf1884-58-70 04:08:00* Test Item Value Reference Range Interpretation Comments Urine Blood (test code = 47389-0) 4+ NEGATIVE H [facility] Dfkwv7858-24-68 02:24:00* Test Item Value Reference Range Interpretation Comments Magnesium Level (test code = 17977-2) 1.8 1.3-2.1 [facility] Nfswj5657-23-98 02:24:00* Test Item Value Reference Range Interpretation Comments Magnesium Level (test code = 79450-1) 1.8 1.3-2.1 [facility]2018-01-31 02:24:00* Test Item Value Reference Range Interpretation Comments Magnesium Level (test code = 06509-0) 1.8 1.3-2.1 [facility]2018-01-31 02:24:00* Test Item Value Reference Range Interpretation Comments Magnesium Level (test code = 07763-6) 1.8 1.3-2.1 [facility] Kpczw0275-53-00 02:24:00* Test Item Value Reference Range Interpretation Comments Magnesium Level (test code = 75394-6) 1.8 1.3-2.1 [facility] Fsxbk1837-28-21 02:24:00* Test Item Value Reference Range Interpretation Comments Magnesium Level (test code = 23848-1) 1.8 1.3-2.1 [facility] Kflaf1042-01-82 02:24:00* Test Item Value Reference Range Interpretation Comments Magnesium Level (test code = 23690-1) 1.8 1.3-2.1 [facility] IrvingUrine Calcium Oxalate Hxwuuwlw9541-56-59 01:52:00* Test Item Value Reference Range Interpretation Comments Urine Calcium Oxalate Crystals (test code = 5774-5) RARE FE W [facility] IrvingUrine Amorphous Nfjsrorp1475-72-94 01:52:00* Test Item Value Reference Range Interpretation Comments Urine Amorphous Sediment (test code = 8246-1) FEW FEW [facility] IrvingUrine Calcium Oxalate Bglbthff0439-10-92 01:52:00* Test Item Value Reference Range Interpretation Comments Urine Calcium Oxalate Crystals (test code = 5774-5) RARE FE W [facility] IrvingUrine Amorphous Edlmhduv5738-09-36 01:52:00* Test Item Value Reference Range Interpretation Comments Urine Amorphous Sediment (test code = 8246-1) [facility] Xhlpdwnu4527-20-48 01:52:00* Test Item Value Reference Range Interpretation Comments Urine Calcium Oxalate Crystals (test code = 5774-5) RARE FE W [facility] IrvingU[facility] Amorphous Xxddhppw9783-51-74 01:52:00* Test Item Value Reference Range Interpretation Comments Urine Amorphous Sediment (test code = 8246-1) [facility] Oxalate Jnbxusib4632-26-77 01:52:00* Test Item Value Reference Range Interpretation Comments Urine Calcium Oxalate Crystals (test code = 5774-5) RARE FE W [facility] IrvingU[facility] Amorphous Agaikvia3489-71-83 01:52:00* Test Item Value Reference Range Interpretation Comments Urine Amorphous Sediment (test code = 8246-1) [facility] Cal[facility] Oxalate Ierxzaue8297-58-06 01:52:00* Test Item Value Reference Range Interpretation Comments Urine Calcium Oxalate Crystals (test code = 5774-5) RARE FE W [facility] IrvingUrine Calcium Oxalate Ltonnhwe5577-55-99 01:52:00* Test Item Value Reference Range Interpretation Comments Urine Calcium Oxalate Crystals (test code = 5774-5) RARE FE W [facility] IrvingUrine Calcium Oxalate Aeaecpbi8141-29-82 01:52:00* Test Item Value Reference Range Interpretation Comments Urine Calcium Oxalate Crystals (test code = 5774-5) RARE FE W [facility] IrvingBlood Aluejof3470-37-28 17:29:00* Test Item Value Reference Range Interpretation Comments Blood Culture (test code = 95535897) NO GROWTH AFTER 5 DAYS, FINAL REPORT [facility] Xzjfflw2878-09-29 17:29:00* Test Item Value Reference Range Interpretation Comments Blood Culture (test code = 02058878) NO GROWTH AFTER 5 DAYS, FINAL REPORT [facility] IrvingBlood Wlomvdk9232-78-72 17:29:00* Test Item Value Reference Range Interpretation Comments Blood Culture (test code = 17263897) NO GROWTH AFTER 5 DAYS, FINAL REPORT [facility] Eqoupvq0573-41-62 17:29:00* Test Item Value Reference Range Interpretation Comments Blood Culture (test code = 38504460) NO GROWTH AFTER 5 DAYS, FINAL REPORT [facility] Mzrhoap4160-44-98 17:29:00* Test Item Value Reference Range Interpretation Comments Blood Culture (test code = 59495511) NO GROWTH AFTER 5 DAYS, FINAL REPORT [facility] Avvkihe4693-49-67 17:29:00* Test Item Value Reference Range Interpretation Comments Blood Culture (test code = 32000239) NO GROWTH AFTER 5 DAYS, FINAL REPORT [facility] Yberans8202-66-11 20:10:00* Test Item Value Reference Range Interpretation Comments Bedside Glucose (test code = 80462-1) 216 70-120 H Meter ID: [id number] Children's Hospital Glucose 2016-12-31 20:10:00* Test Item Value Reference Range Interpretation Comments Bedside Glucose (test code = 61735-6) 216 70-120 H Meter ID: [id number] Children's Hospital Glucose 2016-12-31 20:10:00* Test Item Value Reference Range Interpretation Comments Bedside Glucose (test code = 60419-9) 216 70-120 H Meter ID: [id number] Children's Hospital Glucose 2016-12-31 20:10:00* Test Item Value Reference Range Interpretation Comments Bedside Glucose (test code = 80657-5) 216 70-120 H Meter ID: [id number] Children's Hospital Glucose 2016-12-31 20:10:00* Test Item Value Reference Range Interpretation Comments Bedside Glucose (test code = 46146-6) 216 70-120 H Meter ID: [id number] Children's Hospital Glucose 2016-12-31 20:10:00* Test Item Value Reference Range Interpretation Comments Bedside Glucose (test code = 51542-1) 216 70-120 H Meter ID: [id number] [facility] Chorionic Gonadotropin, Gyyaq4471-20-30 08:13:00* Test Item Value Reference Range Interpretation Comments Human Chorionic Gonadotropin, Quant (test code = 93977-4) 1.95 0-10 [facility] Chorionic Gonadotropin, Quant 2016-12-31 08:13:00* Test Item Value Reference Range Interpretation Comments Human Chorionic Gonadotropin, Quant (test code = 55163-1) 1.95 0-10 [facility] Chorionic Gonadotropin, Quant 2016-12-31 08:13:00* Test Item Value Reference Range Interpretation Comments Human Chorionic Gonadotropin, Quant (test code = 73200-3) 1.95 0-10 [facility] Chorionic Gonadotropin, Quant 2016-12-31 08:13:00* Test Item Value Reference Range Interpretation Comments Human Chorionic Gonadotropin, Quant (test code = 36450-7) 1.95 0-10 [facility] Chorionic Gonadotropin, Quant 2016-12-31 08:13:00* Test Item Value Reference Range Interpretation Comments Human Chorionic Gonadotropin, Quant (test code = 00220-9) 1.95 0-10 [facility] Chorionic Gonadotropin, Quant 2016-12-31 08:13:00* Test Item Value Reference Range Interpretation Comments Human Chorionic Gonadotropin, Quant (test code = 43082-3) 1.95 0-10 [facility] IrvingProthrombin Xmti1573-59-80 10:04:00* Test Item Value Reference Range Interpretation Comments Prothrombin Time (test code = 5902-2) 12.8 11.9-14.5 [facility] IrvingProthromb Time International Ratio 2016-12-30 10:04:00* Test Item Value Reference Range Interpretation Comments Prothromb Time International Ratio (test code = 6301-6) 0.92 Oral Anticoagulant Therapy INR Values:1. Low Intensity Therapy 1.5 - 2.02 . Moderate Intensity Therapy 2.0 - 3.03. High Intensity Therapy(1) 2.5 - 3. 54. High Intensity Therapy(2) 3.0 - 4.05. Panic Value INR > 5.0 [facility] IrvingProthrombin Xehu3022-55-12 10:04:00* Test Item Value Reference Range Interpretation Comments Prothrombin Time (test code = 5902-2) 12.8 11.9-14.5 [facility] IrvingProthromb Time International Ratio 2016-12-30 10:04:00* Test Item Value Reference Range Interpretation Comments Prothromb Time International Ratio (test code = 6301-6) 0.92 Oral Anticoagulant Therapy INR Values:1. Low Intensity Therapy 1.5 - 2.02 . Moderate Intensity Therapy 2.0 - 3.03. High Intensity Therapy(1) 2.5 - 3. 54. High Intensity Therapy(2) 3.0 - 4.05. Panic Value INR > 5.0 [facility] IrvingProtth[facility] Eajb1106-98-02 10:04:00* Test Item Value Reference Range Interpretation Comments Prothrombin Time (test code = 5902-2) 12.8 11.9-14.5 [facility] IrvingProthromb Time International Ratio 2016-12-30 10:04:00* Test Item Value Reference Range Interpretation Comments Prothromb Time International Ratio (test code = 6301-6) 0.92 Oral Anticoagulant Therapy INR Values:1. Low Intensity Therapy 1.5 - 2.02 . Moderate Intensity Therapy 2.0 - 3.03. High Intensity Therapy(1) 2.5 - 3. 54. High Intensity Therapy(2) 3.0 - 4.05. Panic Value INR > 5.0 [facility] IrvingProthrombin Eoox2828-53-49 10:04:00* Test Item Value Reference Range Interpretation Comments Prothrombin Time (test code = 5902-2) 12.8 11.9-14.5 [facility] IrvingProthromb Time International Ratio 2016-12-30 10:04:00* Test Item Value Reference Range Interpretation Comments Prothromb Time International Ratio (test code = 6301-6) 0.92 Oral Anticoagulant Therapy INR Values:1. Low Intensity Therapy 1.5 - 2.02 . Moderate Intensity Therapy 2.0 - 3.03. High Intensity Therapy(1) 2.5 - 3. 54. High Intensity Therapy(2) 3.0 - 4.05. Panic Value INR > 5.0 [facility] IrvingProthrombin Ekhs9961-27-13 10:04:00* Test Item Value Reference Range Interpretation Comments Prothrombin Time (test code = 5902-2) 12.8 11.9-14.5 [facility] IrvingProthromb Time International Ratio 2016-12-30 10:04:00* Test Item Value Reference Range Interpretation Comments Prothromb Time International Ratio (test code = 6301-6) 0.92 Oral Anticoagulant Therapy INR Values:1. Low Intensity Therapy 1.5 - 2.02 . Moderate Intensity Therapy 2.0 - 3.03. High Intensity Therapy(1) 2.5 - 3. 54. High Intensity Therapy(2) 3.0 - 4.05. Panic Value INR > 5.0 [facility] IrvingProthrtemple university hospital Abhy2177-17-47 10:04:00* Test Item Value Reference Range Interpretation Comments Prothrombin Time (test code = 5902-2) 12.8 11.9-14.5 [facility] IrvingProthromb Time International Ratio 2016-12-30 10:04:00* Test Item Value Reference Range Interpretation Comments Prothromb Time International Ratio (test code = 6301-6) 0.92 Oral Anticoagulant Therapy INR Values:1. Low Intensity Therapy 1.5 - 2.02 . Moderate Intensity Therapy 2.0 - 3.03. High Intensity Therapy(1) 2.5 - 3. 54. High Intensity Therapy(2) 3.0 - 4.05. Panic Value INR > 5.0 [facility] IrvingUrine Euumyon2526-47-94 07:41:00* Test Item Value Reference Range Interpretation Comments Urine Culture (test code = 630-4) Organism: KLEBSIELLA PNEUMONIAE-E L [facility] IrvingUrine Kzstdxc9835-98-17 07:41:00* Test Item Value Reference Range Interpretation Comments Urine Culture (test code = 630-4) Organism: KLEBSIELLA PNEUMONIAE-E L [facility] IrvingUrine Yvqvkdx1605-75-11 07:41:00* Test Item Value Reference Range Interpretation Comments Urine Culture (test code = 630-4) Organism: KLEBSIELLA PNEUMONIAE-E [facility] Ejrwhwh6447-68-17 07:41:00* Test Item Value Reference Range Interpretation Comments Urine Culture (test code = 630-4) Organism: KLEBSIELLA PNEUMONIAE-E [facility] Qkepeoh2980-97-30 07:41:00* Test Item Value Reference Range Interpretation Comments Urine Culture (test code = 630-4) Organism: KLEBSIELLA PNEUMONIAE-E [facility] Renal Epithelial Gisco4425-62-70 16:15:00* Test Item Value Reference Range Interpretation Comments Urine Renal Epithelial Cells (test code = 44228-4) [facility] NON E H [facility] Renal Epithelial Ppinc3528-04-35 16:15:00* Test Item Value Reference Range Interpretation Comments Urine Renal Epithelial Cells (test code = 36722-6) [facility] NON E H [facility] Renal Epithelial Huoys4730-87-71 16:15:00* Test Item Value Reference Range Interpretation Comments Urine Renal Epithelial Cells (test code = 29738-2) [facility] NON E H [facility] Renal Epithelial Tmgoo9864-17-60 16:15:00* Test Item Value Reference Range Interpretation Comments Urine Renal Epithelial Cells (test code = 18636-7) [facility] NON [facility] Renal Epithelial Epgtj2159-93-51 16:15:00* Test Item Value Reference Range Interpretation Comments Urine Renal Epithelial Cells (test code = 94610-9) [facility] NON [facility] Renal Epithelial Lerfx7714-22-74 16:15:00* Test Item Value Reference Range Interpretation Comments Urine Renal Epithelial Cells (test code = 39831-9) [facility] NON [facility] Dpsxcbl1613-13-79 06:03:00* Test Item Value Reference Range Interpretation Comments Urine Culture (test code = 630-4) Organism: VALERIO ALBICANS [facility] Irving[facility]osph[facility] Yztei2117-86-63 07:09:00* Test Item Value Reference Range Interpretation Comments Phosphorus Level (test code = FWR2150) 3.2 2.3-4.7 [facility] Jckbc8125-75-95 07:09:00* Test Item Value Reference Range Interpretation Comments Phosphorus Level (test code = VZD5801) 3.2 2.3-4.7 [facility] IrvingPhosphorus Gaghk4105-95-44 07:09:00* Test Item Value Reference Range Interpretation Comments Phosphorus Level (test code = HSN3317) 3.2 2.3-4.7 [facility] IrvingPhosphorus Fqajz8893-41-46 07:09:00* Test Item Value Reference Range Interpretation Comments Phosphorus Level (test code = XGT2697) 3.2 2.3-4.7 [facility] IrvingPhosphorus Drfkh2285-19-84 07:09:00* Test Item Value Reference Range Interpretation Comments Phosphorus Level (test code = WJT8246) 3.2 2.3-4.7 [facility] IrvingAct[facility] Partial Thromboplast Time 2016-11-05 01:54:00* Test Item Value Reference Range Interpretation Comments Activated Partial Thromboplast Time (test code = 85127-8) 30.6 23.8-35.5 [facility] IrvingAct[facility] Partial Thromboplast Time 2016-11-05 01:54:00* Test Item Value Reference Range Interpretation Comments Activated Partial Thromboplast Time (test code = 58111-6) 30.6 23.8-35.5 [facility] IrvingAct[facility] Partial Thromboplast Time 2016-11-05 01:54:00* Test Item Value Reference Range Interpretation Comments Activated Partial Thromboplast Time (test code = 74187-6) 30.6 23.8-35.5 [facility] IrvingAct[facility] Partial Thromboplast Time 2016-11-05 01:54:00* Test Item Value Reference Range Interpretation Comments Activated Partial Thromboplast Time (test code = 09981-1) 30.6 23.8-35.5 [facility] IrvingAct[facility] Partial Thromboplast Time 2016-11-05 01:54:00* Test Item Value Reference Range Interpretation Comments Activated Partial Thromboplast Time (test code = 30468-2) 30.6 23.8-35.5 [facility] IrvingVitamin B12 Syqkv2770-88-72 14:56:00* Test Item Value Reference Range Interpretation Comments Vitamin B12 Level (test code = 89242-5) 254 213-816 [facility] IrvingFolate2017-09-26 14:56:00* Test Item Value Reference Range Interpretation Comments Folate (test code = 2284-8) 14.2 7.0-15.4 [facility] IrvingVitamin B12 Bwpuw5733-02-35 14:56:00* Test Item Value Reference Range Interpretation Comments Vitamin B12 Level (test code = 06479-5) 254 213-816 [facility] IrvingFolate2017-09-26 14:56:00* Test Item Value Reference Range Interpretation Comments Folate (test code = 2284-8) 14.2 7.0-15.4 [facility] IrvingVitamin B12 Ahkeh0730-44-50 14:56:00* Test Item Value Reference Range Interpretation Comments Vitamin B12 Level (test code = 33213-1) 254 213-816 [facility] IrvingFolate2017-09-26 14:56:00* Test Item Value Reference Range Interpretation Comments Folate (test code = 2284-8) 14.2 7.0-15.4 [facility] IrvingVitamin B12 Tfyvq7376-67-59 14:56:00* Test Item Value Reference Range Interpretation Comments Vitamin B12 Level (test code = 36157-3) 254 213-816 [facility] IrvingFolate2017-09-26 14:56:00* Test Item Value Reference Range Interpretation Comments Folate (test code = 2284-8) 14.2 7.0-15.4 [facility] IrvingVitamin B12 Irfrn1521-80-84 14:56:00* Test Item Value Reference Range Interpretation Comments Vitamin B12 Level (test code = 75830-3) 254 213-816 [facility] IrvingFolate2017-09-26 14:56:00* Test Item Value Reference Range Interpretation Comments Folate (test code = 2284-8) 14.2 7.0-15.4 [facility] IrvingFerritin2017-09-26 13:58:00* Test Item Value Reference Range Interpretation Comments Ferritin (test code = 2276-4) 120.23 4.63-204.00 [facility] IrvingFerritin2017-09-26 13:58:00* Test Item Value Reference Range Interpretation Comments Ferritin (test code = 2276-4) 120.23 4.63-204.00 [facility] IrvingFerritin2017-09-26 13:58:00* Test Item Value Reference Range Interpretation Comments Ferritin (test code = 2276-4) 120.23 4.63-204.00 [facility] IrvingFerritin2017-09-26 13:58:00* Test Item Value Reference Range Interpretation Comments Ferritin (test code = 2276-4) 120.23 4.63-204.00 [facility] IrvingFerritin2017-09-26 13:58:00* Test Item Value Reference Range Interpretation Comments Ferritin (test code = 2276-4) 120.23 4.63-204.00 [facility]2017-09-26 13:31:00* Test Item Value Reference Range Interpretation Comments Iron Level (test code = 2498-4) 18 50-170 L [facility] IrvingTotal Iron Binding Atowtyqt5665-06-02 13:31:00* Test Item Value Reference Range Interpretation Comments Total Iron Binding Capacity (test code = 2500-7) 269 261-4 78 [facility] IrvingPercent Iron Jkvkdseswu4907-15-74 13:31:00* Test Item Value Reference Range Interpretation Comments Percent Iron Saturation (test code = 2502-3) 7 15-50 L [facility] IrvingTransferrin2017-09-26 13:31:00* Test Item Value Reference Range Interpretation Comments Transferrin (test code = 3034-6) 192 180-382 [facility]2017-09-26 13:31:00* Test Item Value Reference Range Interpretation Comments Iron Level (test code = 2498-4) 18 50-170 L [facility] IrvingTotal Iron Binding Hxqqslzm0504-72-57 13:31:00* Test Item Value Reference Range Interpretation Comments Total Iron Binding Capacity (test code = 2500-7) 269 261-4 78 [facility] Iron Ilksitjvbt0149-59-26 13:31:00* Test Item Value Reference Range Interpretation Comments Percent Iron Saturation (test code = 2502-3) 7 15-50 L [facility] IrvingTransferrin2017-09-26 13:31:00* Test Item Value Reference Range Interpretation Comments Transferrin (test code = 3034-6) 192 180-382 [facility]2017-09-26 13:31:00* Test Item Value Reference Range Interpretation Comments Iron Level (test code = 2498-4) 18 50-170 L [facility] Iron Binding Rheeaymh2326-35-08 13:31:00* Test Item Value Reference Range Interpretation Comments Total Iron Binding Capacity (test code = 2500-7) 269 261-4 78 [facility] Iron Pcukeiyxnp7514-52-94 13:31:00* Test Item Value Reference Range Interpretation Comments Percent Iron Saturation (test code = 2502-3) 7 15-50 L [facility]2017-09-26 13:31:00* Test Item Value Reference Range Interpretation Comments Transferrin (test code = 3034-6) 192 180-382 [facility]2017-09-26 13:31:00* Test Item Value Reference Range Interpretation Comments Iron Level (test code = 2498-4) 18 50-170 L [facility] Iron Binding Waloedkl7625-91-49 13:31:00* Test Item Value Reference Range Interpretation Comments Total Iron Binding Capacity (test code = 2500-7) 269 261-4 78 [facility] Iron Zbldzmfvyy2004-83-22 13:31:00* Test Item Value Reference Range Interpretation Comments Percent Iron Saturation (test code = 2502-3) 7 15-50 L [facility]2017-09-26 13:31:00* Test Item Value Reference Range Interpretation Comments Transferrin (test code = 3034-6) 192 180-382 [facility]2017-09-26 13:31:00* Test Item Value Reference Range Interpretation Comments Iron Level (test code = 2498-4) 18 50-170 L [facility] IrvingTotal Iron Binding Jbndjimk8123-02-63 13:31:00* Test Item Value Reference Range Interpretation Comments Total Iron Binding Capacity (test code = 2500-7) 269 261-4 78 [facility] IrvingPercent Iron Ovuihxgnpz1572-69-12 13:31:00* Test Item Value Reference Range Interpretation Comments Percent Iron Saturation (test code = 2502-3) 7 15-50 L [facility] IrvingTransferrin2017-09-26 13:31:00* Test Item Value Reference Range Interpretation Comments Transferrin (test code = 3034-6) 192 180-382 [facility] IrvingCreatine Kinase DN9753-46-75 13:11:00* Test Item Value Reference Range Interpretation Comments Creatine Kinase MB (test code = 37579-3) 0.20 0.00-5.00 [place] 63607017-09-25 13:11:00* Test Item Value Reference Range Interpretation Comments Troponin I (test code = 04486-8) -0.001 0-0.300 [facility] IrvingCreatine Kinase GK7186-52-67 13:11:00* Test Item Value Reference Range Interpretation Comments Creatine Kinase MB (test code = 92675-4) 0.20 0.00-5.00 [facility] IrvingTrLinda [place]ille [address]20H6597-71-25 13:11:00* Test Item Value Reference Range Interpretation Comments Troponin I (test code = PKO4738) -0.001 0-0.300 [facility] IrvingCreatine Kinase AO7016-62-23 13:11:00* Test Item Value Reference Range Interpretation Comments Creatine Kinase MB (test code = 96383-4) 0.20 0.00-5.00 [place] 63607017-09-25 13:11:00* Test Item Value Reference Range Interpretation Comments Troponin I (test code = TVQ1359) -0.001 0-0.300 [facility] IrvingCreatine Kinase XJ1907-03-40 13:11:00* Test Item Value Reference Range Interpretation Comments Creatine Kinase MB (test code = 32419-6) 0.20 0.00-5.00 [place] 63607017-09-25 13:11:00* Test Item Value Reference Range Interpretation Comments Troponin I (test code = SPZ5302) -0.001 0-0.300 [facility] IrvingCreatine Kinase OE1381-31-39 13:11:00* Test Item Value Reference Range Interpretation Comments Creatine Kinase MB (test code = 37344-7) 0.20 0.00-5.00 [place] 63607017-09-25 13:11:00* Test Item Value Reference Range Interpretation Comments Troponin I (test code = DMR9166) -0.001 0-0.300 [facility] IrvingCrear[facility] Xtyzvv3500-19-41 12:13:00* Test Item Value Reference Range Interpretation Comments Creatine Kinase (test code = 2157-6) 28 29-168 L [facility] IrvingCreatine Vlykkk0940-97-16 12:13:00* Test Item Value Reference Range Interpretation Comments Creatine Kinase (test code = 2157-6) 28 29-168 L [facility] IrvingCreatine Yosrdb0865-42-98 12:13:00* Test Item Value Reference Range Interpretation Comments Creatine Kinase (test code = 2157-6) 28 29-168 L [facility] IrvingCreatine Eferhu5529-60-78 12:13:00* Test Item Value Reference Range Interpretation Comments Creatine Kinase (test code = 2157-6) 28 29-168 L [facility] IrvingCreatine Bcakrd0331-73-06 12:13:00* Test Item Value Reference Range Interpretation Comments Creatine Kinase (test code = 2157-6) 28 29-168 L [facility] IrvingBacterial urine dvrmihn1898-41-37 15:16:00* Test Item Value Reference Range Interpretation Comments Urine Culture (test code = 630-4) Organism: ESCHERICHIA COLI-ESBL [facility] IrvingBacterial urine bpfxkgn1009-67-88 15:16:00* Test Item Value Reference Range Interpretation Comments Urine Culture (test code = 630-4) Organism: ESCHERICHIA COLI-ESBL [facility] IrvingBacterial urine hlxciqk3953-29-35 15:16:00* Test Item Value Reference Range Interpretation Comments Urine Culture (test code = 630-4) Organism: ESCHERICHIA COLI-ESBL [facility] IrvingUrine Gtzgshe5591-41-98 16:14:00* Test Item Value Reference Range Interpretation Comments Urine Culture (test code = 630-4) Organism: ESCHERICHIA COLI-ESBL [facility] IrvingUrine Cmgpubl6403-99-19 16:14:00* Test Item Value Reference Range Interpretation Comments Urine Culture (test code = 630-4) Organism: ESCHERICHIA COLI-ESBL [facility] IrvingUrine Llbxzjl7770-60-40 16:14:00* Test Item Value Reference Range Interpretation Comments Urine Culture (test code = 630-4) Organism: ESCHERICHIA COLI-ESBL [facility] IrvingTriglycerides Rmdcc4696-66-96 07:19:00* Test Item Value Reference Range Interpretation Comments Triglycerides Level (test code = 2571-8) 164 0-149 H [facility] IrvingCholesterol Bwlnu2406-24-48 07:19:00* Test Item Value Reference Range Interpretation Comments Cholesterol Level (test code = 2093-3) 187 0-199 Less than 200 mg/dL Low Idsx654 - 239 mg/dL Borderline Ioqr001 m g/dl and greater High Risk [facility] IrvingLDL Rfdditmpqki2094-10-70 07:19:00* Test Item Value Reference Range Interpretation Comments LDL Cholesterol (test code = 40559-2) 106 60-130 [facility] IrvingHDL Uyejnmgznbh7674-51-24 07:19:00* Test Item Value Reference Range Interpretation Comments HDL Cholesterol (test code = 2085-9) 48 40-60 [facility] IrvingCholesterol/HDL Vjdov5441-18-17 07:19:00 * Test Item Value Reference Range Interpretation Comments Cholesterol/HDL Ratio (test code = 9830-1) 3.9 3.0-3.6 H [facility] IrvingTriglycerides Flisp4218-82-75 07:19:00* Test Item Value Reference Range Interpretation Comments Triglycerides Level (test code = 2571-8) 164 0-149 H [facility] IrvingCholesterol Thqqy9920-17-62 07:19:00* Test Item Value Reference Range Interpretation Comments Cholesterol Level (test code = 2093-3) 187 0-199 Less than 200 mg/dL Low Kchv932 - 239 mg/dL Borderline Jowk554 m g/dl and greater High Risk [facility] IrvingLDL Pcmykpitksj0485-30-54 07:19:00* Test Item Value Reference Range Interpretation Comments LDL Cholesterol (test code = 51011-7) 106 60-130 [facility] Neknmahjrrz0472-17-93 07:19:00* Test Item Value Reference Range Interpretation Comments HDL Cholesterol (test code = 2085-9) 48 40-60 [facility] IrvingCholesterol/HDL Civpf6327-84-14 07:19:00 * Test Item Value Reference Range Interpretation Comments Cholesterol/HDL Ratio (test code = 9830-1) 3.9 3.0-3.6 H [facility] IrvingTriglycerides Ienwk4516-38-66 07:19:00* Test Item Value Reference Range Interpretation Comments Triglycerides Level (test code = 2571-8) 164 0-149 H [facility] IrvingCholesterol Mllfy3383-79-75 07:19:00* Test Item Value Reference Range Interpretation Comments Cholesterol Level (test code = 2093-3) 187 0-199 Less than 200 mg/dL Low Dxnl918 - 239 mg/dL Borderline Arpf156 m g/dl and greater High Risk [facility] IrvingLDL Kevdgtnslhu7766-96-30 07:19:00* Test Item Value Reference Range Interpretation Comments LDL Cholesterol (test code = 11307-5) 106 60-130 [facility] Nrnyfumjzmk1950-58-16 07:19:00* Test Item Value Reference Range Interpretation Comments HDL Cholesterol (test code = 2085-9) 48 40-60 [facility] IrvingCholesterol/HDL Bwbxk4483-66-57 07:19:00 * Test Item Value Reference Range Interpretation Comments Cholesterol/HDL Ratio (test code = 9830-1) 3.9 3.0-3.6 H [facility] IrvingHemoglobin A1c Xdejffx1237-57-93 07:10:00 * Test Item Value Reference Range Interpretation Comments Hemoglobin A1c Percent (test code = Hemoglobin A1c Percent) 6.5 4.0-7.0 [facility] IrvingHemoglobin A1c Kzfvlyr4823-07-24 07:10:00 * Test Item Value Reference Range Interpretation Comments Hemoglobin A1c Percent (test code = Hemoglobin A1c Percent) 6.5 4.0-7.0 [facility] IrvingHemoglobin A1c Ywudzid9665-51-46 07:10:00 * Test Item Value Reference Range Interpretation Comments Hemoglobin A1c Percent (test code = Hemoglobin A1c Percent) 6.5 4.0-7.0 [facility] IrvingLactic Acid Lawkq6304-95-26 18:48:00* Test Item Value Reference Range Interpretation Comments Lactic Acid Level (test code = Lactic Acid Level) 18.1 4.5- 19.8 [facility] IrvingLactic Acid Kxhlf9613-35-74 18:48:00* Test Item Value Reference Range Interpretation Comments Lactic Acid Level (test code = Lactic Acid Level) 18.1 4.5- 19.8 [facility] IrvingLactic Acid Oedox5606-45-27 18:48:00* Test Item Value Reference Range Interpretation Comments Lactic Acid Level (test code = Lactic Acid Level) 18.1 4.5- 19.8 [facility] Dentontool Yycrbxcolbix0640-53-54 12:17:00* Test Item Value Reference Range Interpretation Comments Stool Calprotectin (test code = 97646-4) -16 0-120 Concentration Interpretation Follow-Up<16 - 50 ug/g Normal None>50 -120 ug/g Borderline Re-evaluate in 4-6 weeks >120 ug/g Abnormal Repeat as clinically indicatedPerformed at: - [facility] [address] [id number] Director: Nabil Thomas MD, Phone: [phone] Scott and [facility] the [facility] – Dentontool Eoebcytmdxrj2441-81-49 12:17:00* Test Item Value Reference Range Interpretation Comments Stool Calprotectin (test code = 80573-8) -16 0-120 Concentration Interpretation Follow-Up<16 - 50 ug/g Normal None>50 -120 ug/g Borderline Re-evaluate in 4-6 weeks >120 ug/g Abnormal Repeat as clinically indicatedPerformed at: [address] [id number] Director: Nabil Thomas MD, Phone: [phone] Scott & [facility] – IrvingClostridium Difficile Toxin A & M5311-18-08 14:20:00* Test Item Value Reference Range Interpretation Comments Clostridium Difficile Toxin A & B (test code = 775229358) NEGATIVE NEGATIVE Testing on stool aspirate specimens is outside faa certified powerplant mechanic claims since specime n type not validated on this assay.[facility] Clostridium Difficile Toxin A & I1116-79-51 14:20:00* Test Item Value Reference Range Interpretation Comments Clostridium Difficile Toxin A & B (test code = 492947336) NEGATIVE NEGATIVE Testing on stool aspirate specimens is outside faa certified powerplant mechanic claims since specime n type not validated on this assay.[facility] Dentontool Lactoferrin (LAB)2016-07-26 21:42:00* Test Item Value Reference Range Interpretation Comments Stool Lactoferrin (LAB) (test code = 03266-5) NEGATIVE NEGATIVE Testing on stool aspirate specimens is outside faa certified powerplant mechanic claims since specime n type not validated on this assay.[facility] Dentonto Lactoferrin (LAB)2016-07-26 21:42:00* Test Item Value Reference Range Interpretation Comments Stool Lactoferrin (LAB) (test code = 36934-5) NEGATIVE NEGATIVE Testing on stool aspirate specimens is outside faa certified powerplant mechanic claims since specime n type not validated on this assay.[facility] IrvingLipase 2016-07-24 16:31:00* Test Item Value Reference Range Interpretation Comments Lipase (test code = 3040-3) 23 8-78 [facility] IrvingLipase2017-06-15 16:31:00* Test Item Value Reference Range Interpretation Comments Lipase (test code = 3040-3) 23 8-78 [facility] IrvingUrine Itphw0001-51-54 12:39:00* Test Item Value Reference Range Interpretation Comments Urine Mucus (test code = 8247-9) MODERATE RARE H [facility] IrvingUrine Oiwem6188-40-36 12:39:00* Test Item Value Reference Range Interpretation Comments Urine Mucus (test code = 8247-9) MODERATE RARE H [facility] IrvingURINE AND BXMQG7014-73-27 22:54:00 Negative *NA*(02/15/15 4:54 PM)[facility] XIQZA1710-79-08 22:54:00 Moderate *ABN*(02/15/15 4:54 PM)[facility] ESIEK6642-24-73 22:54:00 Positive *ABN*(02/15/15 4:54 PM)[facility] BEOUL6886-44-65 22:54:00 Large *ABN*(02/15/15 4:54 PM)[facility] RAYNW2072-43-52 22:54:00> 182[facility] TFOKN7933-55-53 22:54:19711Povmxlvm HermannURINE AND AOXRC5696-85-95 22:54:0034[facility] AKHPH0945-58-67 22:54:00 Yellow *NA*(02/15/15 4:54 PM)[facility] DSUXG8786-03-39 22:54:00 Marked *ABN*(02/15/15 4:54 PM)[facility] ZUCIK1226-70-33 22:54:00 5.0[facility] AND IVIPZ4818-87-27 22:54:001.018[facility]annCHEM ANFVM2664-32-97 22:40:000.6[facility]annCHEM BGDFS3743-48-71 22:40:005.8 [facility]annCHEM QSBBI7996-19-44 22:40:0012[facility]annCHEM PANEL 2015-02-15 22:40:0012.6[facility]annCHEM VUQUV2689-88-38 22:40:32765Wvlaywew HermannCHEM MMEYI4758-07-10 22:40:0028[facility]annCHEM KBDNH7163-32-76 22:40:000.3[facility]annCHEM XIHUV5461-04-36 22:40:0073[facility]annCHEM UDBEK9049-19-01 22:40:0025[facility]annCHEM RLYBS7174-58-56 22:40:003.4 [facility]annCHEM GELUQ9728-85-80 22:40:009.2[facility]annCHEM PANEL 2015-02-15 22:40:009.1[facility]annCHEM COKZW8229-42-74 22:40:0026[facility]annCHEM ALWVF9831-88-96 22:40:66424Vstimqlg HermannCHEM SLDLF8700-20-98 22:40:98549Wnuxpowl HermannCHEM MWWMQ7797-79-78 22:40:004.6[facility]annCHEM PIOJZ3658-60-46 22:40:000.91[facility]annCHEM QCBJA0126-52-11 22:40:0011 [facility]annCHEM MSTFT1204-96-06 22:40:65857Kawicyyh HermannENDOCRINOLOGY 2015-02-15 22:40:00Negative *NA*(02/15/15 4:40 PM)[facility]annHEMATOLOGY 2015-02-15 22:40:0032.8[facility] GmbiytrRETTSMBFMM2977-75-42 22:40:0060.0[facility] IbffxagPABAQNDGFV1512-70-85 22:40:000.2[facility] SsmphfbBBPBCKGCAM2254-19-15 22:40:000.2[facility] MhjwuccUEURMFNXJE8546-25-82 22:40:004.6[facility]sei ZGSSBEWYXQ2662-64-89 22:40:001.2[facility] QstsekvFQPJWUOOBU5872-76-06 22:40:001.4 [facility] JfisclaXCXBTWFNAV3495-74-48 22:40:007.3[facility]annHEMATOLOGY 2015-02-15 22:40:000.6[facility] EsgnmhsWUFJYQGHQE4657-74-78 22:40:004.0[facility] BgtdwnqBVPPRQJWRI3142-44-77 22:40:00Clumped (02/15/15 4:40 PM)[facility] YWVSIIHWQB5110-80-41 22:40:00Normal (02/15/15 4:40 PM)[facility]annHEMATOLOGY 2015-02-15 22:40:008.7[facility] NqrshssUQUURAYTQU1659-69-66 22:40:0012.0[facility] DogujclHDKRGKKMNM9786-46-96 22:40:004.90[facility] McdqxtfRRFYOPRHPL4516-85-77 22:40:0039.0[facility] XsanumpQNIDACZUHN7073-42-49 22:40:0079.7[facility] NVROIPCNMY5148-09-71 22:40:0012.0[facility] OywttwrRXTFMBPLOZ1068-25-16 22:40:00 14.8[facility] RpngjtiFINMAGQOQM2765-23-80 22:40:0030.8[facility]annHEMATOLOGY 2015-02-15 22:40:46230Pyspxfrd ZcwazwsPBODPSFZVQ2053-77-59 22:40:00* Test Item Value Reference Range Interpretation Comments MCH (test code = MCH) 24.5 pg 27.0-31.0 [facility]annSPE[facility]ED[facility] [place] [address] Patient Name: WESLY HUTCHINSON MR #: [id number] : 1960 Age/Sex: 56/F Req #: [id number] Adm Physician: Ordered by: JARET ESPINOSA MD Report #: [id number] Location: [place] Room/Bed: Procedure: [id number] IR/SPECIAL PROCEDURE IN [place]ER [place]ATER Exam Date: Exam Time: REPORT STATUS: Sig jie Nephrostomy catheter evaluation and exchange, 07/03/2017 Pre-Procedur e Diagnosis: Cervical cancer status post radiation therapy with right ureteral stenosis. Post-procedure Diagnosis:Cervical cancer status post radiation ther apy with right ureteral stenosis Bods Developer: Eleni Thomas Gravel Inspector: Non e Sedation: None. Radiation Dose:1.931 cGycm2 (Dose Area Product) Fluor oscopy time:0.7 minutes Estimate blood loss: None Blood administered: None Complications: None Implants/Grafts: 8-Cook Islander right nephrostomy Specimen: None Procedure: Informed consent [...] encrus tation. Glidewire was exchanged for a Likeabilityson wire with a short KMP catheter. A new 10-[place] Islander nephrostomy was coiled in the renal pelvis [...] encrusted with debris. Impre ssion: Successful right 10-[place] Islander nephrostomy exchange with antegrade nephrost ogram. Recommendations: Routine catheter exchange in [address] encrustation. This report was generated with voice-recognition te [facility]. Errors in degreaser can occur. Please interpret accordingly and contact a radiologist if there are any questions regarding the report. Si gned by: Dr. Carla Thomas M.D. on 07/03/2017 11:55 AM Dictated By: CRALA THOMAS MD 1522 Tra nscribed By: DEYANIRA on 07/09/17 1522 COPY TO: JARET ESPINOSA MD CT ABDOMEN/PELVIS WO [facility] [address] [address] Patient Name: WESLY HUTCHINSON MR #: [id number] : 1960 Age/Sex: 56/F Req #: [id number] Adm Physician: Ordered by: ASHA BARDALES CLIP RIVETER Report #: [id number] Location: ER Room/Bed: Procedure: [id number] CT/CT ABDOMEN/PELVIS WO Exam Date: 04/12/17 Exam [...] 4:03 PM Dictated By: JULIO MARSHALL MD 1603 COPY TO: ASHA BARDALES NP SPECIAL PROCEDURE IN ROLLER SKATER [place] [address] Patient Name: WESLY HUTCHINSON MR #: [id number] : 1960 Age/Sex: 56/F Req #: [id number] Adm Physician: VIKY MONTOYA MD Ordered by: JARET ESPINOSA MD Report #: [id number] Location: MED/SURG2 Room/Bed: [facility] [place] Procedure: [id number] IR/SPE CIAL PROCEDURE IN ROLLER SKATER Exam Date: Exam Time: REPORT STATUS: Signed Nephrostomy catheter evaluation and subsequent exc miriam, 03/11/2017 Pre-Procedure Diagnosis: Cervical cancer status post radia tion therapy with right ureteral stenosis. Post-procedure Diagnosis:Cervical cancer status post radiation therapy with right ureteral stenosis Operat or: Eleni Thomas Gravel Inspector: None Sedation: Moderate sedation was provided w [...] None Blood administered: None Complications: None Implants/Grafts: 10-Cook Islander right nephrostomy Specimen: None Procedure: Informed consent was obtained and the patient positioned prone in the fluoroscopy suite. A timeout was performed. The indwelling right nephrostomy was prepped and draped in standard fashion. Diagnostic antegrade nephrostogram was performed given the long indwelling time of the previously placed for ostomy. See findings below. Attempts to remove the indwelling 8-Cook Islander nephrostomy over a Bentson and Glidewire were unsuccessful due to heavy encrustation. The catheter was subsequently severed and removed through an 11-Cook Islander peel-away sheath. A Bentson wire was advanced through the peel-away sheath and exchanged for a 10-[place] Islander nephrostomy. Contrast injection confirmed placement within the [...] was generated with voice-recognition technology. Errors in degreaser can occur. Please interpret accordingly and contact a radiologist if there are any questions regarding the report. Signed by: Dr. Carla Thomas M.D. on 03/11/2017 2:37 PM Dictated By: CARLA THOMAS MD E lectronically Signed By: CARLA THOMAS MD on 03/12/17931 Transcribed By: COM CARD on 03/12/17931 COPY TO: JARET ESPINOSA MD IR CONSULT [address] [place] [address] Patient Name: WESLY HUTCHINSON MR #: [id number] : Age/Sex: 56/F Req #: [id number] [facility] Physician: VIKY REAGAN MD Ordered by: LIZ MUÑIZ MD Report #: [id number] Locatio n: MED/SURG2 Room/Bed: [facility] [place] Procedure: [id number] DX/ IR CONSULT Exam Date: Exam Time: REPORT STAT US: Signed Nephrostomy catheter evaluation and subsequent exchange, 03/11/2017 Pre-Procedure Diagnosis: Cervical cancer status post radiation therapy with right ureteral stenosis. Post-procedure Diagnosis:Cervical cancer status p ost radiation therapy with right ureteral stenosis Bods Developer: Pratibha Thomas Gravel Inspector: None Sedation: Moderate sedation was provided with [...] None Blood administered: None Complications: None Implants/Grafts: 10-Cook Islander right nephrostomy Specimen: None Procedure: Informed consent was obtained and the patient positioned prone in the fluoroscopy suite. A timeout was performed. The indwelling right nephrostomy was prepped and draped in standard fashion. Diagnostic antegrade nephrostogram was performed given the long indwelling time of the previously placed for ostomy. See findings below. Attempts to remove the indwelling 8- [place] Islander nephrostomy over a Bentson and Glidewire were unsuccessful due to heavy encrustation. The catheter was subsequently severed and removed through an 11- [place] Islander peel-away sheath. A Bentson wire was advanced through the peel-away sheath and exchanged for a 10-Cook Islander nephrostomy. Contrast injection confirmed placement within the [...] was generated with voice-recognition technology. Errors in degreaser can occur. Please interpret accordingly and contact a radiologist if there are any questions regarding the report. Signed by: Dr. Carla Thomas M.D. on 03/11/2017 2:37 PM Dictated By: CARLA THOMAS MD E lectronically Signed By: CARLA THOMAS MD on 03/12/17931 Transcribed By: VAN CARD on 03/12/17931 COPY TO: LIZ MUÑIZ MD CT ABDOMEN/PELVIS [place] [address] Patient Name: WESLY HUTCHINSON MR #: [id number] : 1960 Age/Sex: 56/F Req #: [id number] Adm Physician: Ordered by: LIZ MUÑIZ MD Report #: [id number] Location: ER Room/Bed: Procedure: [id number] CT/CT ABDOMEN/PELVIS WO Exam Da te: 03/11/17 Exam Time: 005 REPORT STATUS: Sig jie EXAM: CT ABDOMEN [...] TO: LIZ MUÑIZ MD SPECIAL PROCEDURE IN ROLLER SKATER [place] [address] Patient Name: WESLY HUTCHINSON MR #: [id number] : Age/Sex: 56/F Req #: [id number] Adm Physician: CARLIE PRECIADO MD Ordered by: JARET ESPINOSA MD Report #: [id number] Location: ED/SURG3 Room/Bed: [facility] Procedure: [id number] IR/SPEC IAL PROCEDURE IN ROLLER SKATER Exam Date: Exam Time: REPORT STATUS: Signed Date and Time: 12/31/2016 Procedure: Right per cutaneous nephrostomy catheter exchange 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 Marlin Mercedes re-operative diagnosis: Right [...] Isovue-300 Estimated blood loss: Minimal Specimens: 10 Cook Islander nephrostomy catheter, discarded Implants: New 10 Cook Islander nephrostomy c atheter DISCUSSION: Informed consent for [...] over the wire and a new 10 Cook Islander locking loop percutaneous the prostate was a [...] of a right percutaneous nephrostomy catheter (10 Cook Islander locking loop) under fluoroscopic guidance. The patient should return to interventional r adiology in 8 weeks for routine catheter exchange. Signed by: Dr. Osiel Sullivan M.D. on 01/02/2017 7:09 AM Dictated By: OSIEL SULLIVAN MD Electro nically Signed By: OSIEL SULLIVAN MD on 01/02/17708 Transcribed By: DEYANIRA on 01/02/17708 COPY TO: JARET ESPINOSA MD CHEST XRAY LINE PLACEMENT [place] [address] Patient Name: WESLY HUTCHINSON MR #: [id number] : Age/Sex: 56/F Req #: [id number] Adm Physician: CARLIE PRECIADO MD Ordered by: NAMITA EDMONDS MD Report #: [id number] Location: MED/SURG3 Room/Bed: [facility] Procedure: DX/CH EST XRAY LINE PLACEMENT Exam Date: 12/29/16 [...] COPY TO: NAMITA EDMONDS MD IR CONSULT [place] [address] Patient Name: WESLY HUTCHINSON MR #: [id number] : 1960 Age/Sex: 56/F Req #: [id number] Adm Physician: CARLIE PRECIADO MD Ordered by: JARET ESPINOSA MD Report #: [id number] Location: ED/SURG2 Room/Bed: [facility] Procedure: [id number] DX/IR C ONSULT Exam Date: Exam Time: REPORT STATUS: Signed Date and Time: 11/05/2016 Procedure: Replacement of right percutan eous nephrostomy catheter 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 Sullivan Assistants: None Pre-operative diagnosis: [...] lo ss: Minimal Specimens: None Implants: 10 Cook Islander locking loop nephrostomy farhat inage catheter Blood [...] anesthesia. Then under fluoroscopic guidance, a [address] [place] was gently advanced through the existing percutaneous nephrostomy tract an d into the renal pelvis, with appropriate positioning confirmed by injection o f dilute contrast material. A 0.0 3 5-in. Amplatz wire was then advanced through the catheter and into the proximal right ureter. The catheter was ji mike and the tract was dilated. Then a 10 Cook Islander locking loop nephrostomy [address] ter was advanced [...] of a right percutaneous nephrostomy catheter (10 Cook Islander locking loop) through the existing subcutaneous tract. The patient should return to interventional r adiology for routine catheter exchange in 3 months. Signed by: Dr. Osiel Sullivan M.D. on 11/12/2016 10:12 AM Dictated By: OSIEL SULLIVAN MD Electr onically Signed By: OSIEL SULLIVAN MD on 11/12/16 1012 Transcribed By: DEYANIRA meehan 11/12/16 1012 COPY TO: JARET ESPINOSA MD SPECIAL PROCEDURE IN ROLLER SKATER [place] [address] Patient Name: WESLY HUTCHINSON MR #: [id number] : 1960 Age/Sex: 56/F Req #: [id number] Adm Physician: CARLIE NIX MD Ordered by: JARET ESPINOSA MD Report #: [id number] Location: MED/SURG2 Room/Bed: [facility] Procedure: [id number] IR/SPEC IAL PROCEDURE IN ROLLER SKATER Exam Date: Exam Time: REPORT STATUS: Signed Date and Time: 11/05/2016 Procedure: Replacement of right percutaneous nephrostomy catheter 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 Sullivan Assistants: None Pre-operative diagnosis: [...] blood loss: Minimal Specimens: None Implants: 10 Cook Islander locking l oop nephrostomy drainage catheter Blood [...] anesthesia. Then under fluoroscopic guidance, a 5 [place] Islander angled catheter was gently advanced through the existing percutaneous n ephrostomy tract and into the renal pelvis, with appropriate positioning confi rmed by injection of dilute contrast material. A 0.0 3 5-in. Amplatz wire was then advanced through the catheter and into the proximal right ureter. The catheter was removed and the tract was dilated. Then a 10 [place] Islander locking loop nephrostomy catheter was advanced over [...] of a right percutaneous nephrostomy catheter (10 [place] Islander lockin g loop) through the existing subcutaneous tract. The patient should return to interventional radiology for routine catheter exchange in 3 months. Si gned by: Dr. Osiel Sulliavn M.D. on 11/12/2016 10:12 AM Dictated By: OSIEL SULLIVAN MD 1012 Transc ribed By: DEYANIRA on 11/12/16 1012 COPY TO: JARET ESPINOSA MD [address] ([place] [address] Patient Name: WESLY HUTCHINSON MR #: [id number] : 1960 Age/Sex: 56/F Req #: [id number] Adm Physician: Ordered by: ARIA ROCHE MD Report #: [id number] Location: ER Room/Bed: Procedure: [id number] DX/ABDOMEN-1VIEW (KUB) Exam D ate: 11/03/16 Exam [...] igned By: NAMITA LAWRENCE MD on 11/03/16 2577 Transcribed By: SUSHANT on 7 3143 COPY TO: ARIA ROCHE MD
[2019-11-29 20:57] VITALS: BP 122/70
== END 2019-11-29 21:05 | disposition home or self-care (01) ==
LOC: ER 20:48
DX: T83.091A Other mechanical complication of indwelling urethral catheter, initial encounter (principal); I10 Essential (primary) hypertension; F41.9 Anxiety disorder, unspecified; Z85.41 Personal history of malignant neoplasm of cervix uteri
CPT/HCPCS: 51700; 87086; 99282

== ENCOUNTER → 2019-12-09 | Day surgery (SDC) | payer BC, OTHER ==
[2019-12-06 12:35] LABS: BASOPHILS # (AUTO) 0.1 (0.0-0.1); BASOPHILS % 0.6 % (0.0-1.0); EOSINOPHILS # (AUTO) 0.1 (0.0-0.4); EOSINOPHILS % 1.1 % (0.0-6.0); HEMATOCRIT 36.8 % (34.2-44.1); HEMOGLOBIN 11.1 g/dL (12.0-16.0); LYMPHOCYTES # (AUTO) 2.3 (1.0-3.2); LYMPHOCYTES % 27.3 % (18.0-39.1); MEAN CORPUSCULAR HEMOGLOBIN 25.9 pg (28-32); MEAN CORPUSCULAR HGB CONC 30.2 g/dL (31-35); MEAN CORPUSCULAR VOLUME 85.8 fL (81-99); MONOCYTES # (AUTO) 0.5 (0.2-0.8); MONOCYTES % 5.6 % (4.4-11.3); NEUTROPHILS # (AUTO) 5.6 (2.1-6.9); NEUTROPHILS % 64.9 % (38.7-80.0); PLATELET COUNT 306 x10e3/uL (140-360); RED BLOOD COUNT 4.29 x10e6/uL (3.6-5.1); RED CELL DISTRIBUTION WIDTH 14.5 % (11.7-14.4)
[2019-12-06 12:54] LABS: CALCIUM 9.6 mg/dL (8.4-10.2); CREATININE, SERUM 1.09 mg/dL (0.57-1.11)
[~2019-12-09] MED LIST changes: +B&O 60MG R/S 60 MG SUPP PR ONE; +DEXAMETHASONE SOD PHOS INJ 4 MG/ML VIAL ONE; +FENTANYL CITRATE/PF 100MCG/2 ML INJ ONE; +GENTAMICIN 80MG/NS 100 ML 200 ML IV ONE; +IOPAMIDOL 300MG/ML 50ML INFUS..BTL IV ONE; +LIDOCAINE HCL 2% LOCAL INJ 5 ML SDV VIAL INJ ONE; +MIDAZOLAM HCL 2 MG/2 ML VIAL ONE; +ONDANSETRON HCL INJ 2MG/ML 2ML 2 MG/ML VIAL ONE; +PIPER-TAZ 3.375 GM 50 ML ONE; +PROPOFOL IV EMULSION 10 MG/ML 20 ML VIAL ONE; +SEVOFLURANE INHAL SOLN 250 ML PEN BTL ONE
[2019-12-09 08:25] VITALS: BP 121/69
--- NOTE | 2019-12-10 01:23 | Operative Report ---
DATE OF PROCEDURE: 12/09/2019 SURGEON: Gorge Darby MD PREOPERATIVE DIAGNOSES: 1. Left ureteral stricture. 2. Left hydronephrosis due to stricture. 3. Left indwelling ureteral stents. 4. Neurogenic bladder. POSTOPERATIVE DIAGNOSES: 1. Left ureteral stricture. 2. Left hydronephrosis due to stricture. 3. Left indwelling ureteral stents. 4. Neurogenic bladder. 5. Grade 1-2 rectocele. 6. Atrophic (senile) vaginitis. OPERATION PERFORMED: 1. Cystourethroscopy with complicated removal of 2 separate left-sided indwelling ureteral stents (separate procedure performed for the diagnosis of stents). 2. Cystourethroscopy with dilation of left ureteral stricture (separate procedure performed for the diagnosis of stricture). 3. Radiological services for supervision and stricture dilation, no radiologist present. 4. Cystourethroscopy and insertion of 2 separate left-sided indwelling ureteral stents (separate procedure performed to relieve the hydronephrosis). 5. Interpretation of retrograde ureteropyelography. 6. Supervision of fluoroscopy, no radiologist present. 7. Interpretation of cystography. 8. Pelvic examination under anesthesia. ANESTHESIA: General. COMPLICATIONS: None. CLINICAL SUMMARY: Rita Heredia is a complicated 59-year-old woman with chronic right nephrostomy due to ureteral stricture that failed stenting. She also has a ureteral stricture on the left hand side, where we managed her with 2 separate stents and change them on a regular basis. 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 The patient is brought for the above procedures. She is aware of the risks of bleeding, infection, injury to adjacent structures, need for additional procedures, and elected to proceed. Her last urine culture was negative. OPERATIVE PROCEDURE IN DETAIL: Informed consent was verified. Rita Heredia was properly identified, taken to the operating room, placed on the cystoscopy table in supine position, and anesthesia was uneventfully begun. The patient's Echeverria catheter was removed and her genitalia were prepared and draped in usual sterile fashion. The cystoscope was inserted with the obturator into the patient's bladder and the bladder was drained. Panendoscopy revealed blanching of the mucosa and there was some erythema of the mucosa. No abnormal due to prior radiotherapy. There was also some signs of erythema. There were no suspicious lesions that were identified. A guidewire was then placed into the left ureter and guided alongside the stent up into the patient's left kidney. Both stents were then grasped and removed. Semi-rigid ureteroscope was then placed alongside the guidewire and guided into the patient's left ureter. The ureter had some inflammation in it, presumably from the stone procedures in stone management. A double-lumen ureteral catheter was then inserted over the guidewire and guided to the level of the patient's kidney. Contrast was injected. Following this dilation, a secondary guidewire was left in place. With cystoscopic and fluoroscopic guidance, 2 separate left-sided indwelling ureteral stents were placed, both were coiled in the patient's kidney as well as the patient's bladder. The retaining sutures were removed. Interpretation of cystography contrast instilled in a retrograde fashion on the left hand side. There was chronic appearing fullness of the left-sided collecting system. The stents were in good position, coiled in the patient's kidneys as well as the patient's bladder at the end of the case. The cystoscope was withdrawn and Echeverria catheter was placed. Contrast was then injected and performed cystography. Interpretation of cystography, the bladder is extremely small. There was left-sided vesicoureteric reflux. Echeverria catheter was in good position within the bladder. There was no extravasation. Pelvic examination under anesthesia was then performed, revealed a grade 1-2 rectocele with atrophic vaginitis. No abnormal palpable pelvic masses could be appreciated. There were no obvious mucosal lesions. The patient was then uneventfully reversed anesthesia and taken to recovery room in stable condition. There were no complications to the procedure. She tolerated the procedure well. Plans will be to have Interventional Radiology change the patient's right nephrostomy tube before it causes additional problems and then we will plan to follow the patient up in about a month to remove her Echeverria catheter, replace it with a new one. Gorge Darby MD [place]/MODL /[id number] cc: Naga Akins MD
== END | disposition home or self-care (01) ==
LOC: OR 05:23
PROVIDERS: ATTEND Urology
DX: N13.1 Hydronephrosis with ureteral stricture, not elsewhere classified (principal); N20.0 Calculus of kidney; N31.9 Neuromuscular dysfunction of bladder, unspecified; R35.1 Nocturia; N39.0 Urinary tract infection, site not specified; N39.41 Urge incontinence; Z46.6 Encounter for fitting and adjustment of urinary device; N81.6 Rectocele; N95.2 Postmenopausal atrophic vaginitis; I10 Essential (primary) hypertension; E66.9 Obesity, unspecified; Z88.0 Allergy status to penicillin; Z01.810 Encounter for preprocedural cardiovascular examination; Z01.812 Encounter for preprocedural laboratory examination; Z11.59 Encounter for screening for other viral diseases; Z68.37 Body mass index [BMI] 37.0-37.9, adult
CPT/HCPCS: 36415; 52332; 52344; 74420; 80048; 85025; 93005; C1758; C2617; J1100; J1580; J2001; J2250; J2405; J2543; J2704; J3010; Q9967; U0002

== ENCOUNTER 2020-01-03 03:50 | Emergency (ER) | payer BC ==
[~2020-01-03] VITALS: Ht 152.4 cm; Wt 85.3 kg
[~2020-01-03 03:50] MED LIST changes: -B&O 60MG R/S 60 MG SUPP PR ONE; -DEXAMETHASONE SOD PHOS INJ 4 MG/ML VIAL ONE; -FENTANYL CITRATE/PF 100MCG/2 ML INJ ONE; -GENTAMICIN 80MG/NS 100 ML 200 ML IV ONE; -IOPAMIDOL 300MG/ML 50ML INFUS..BTL IV ONE; -LIDOCAINE HCL 2% LOCAL INJ 5 ML SDV VIAL INJ ONE; -MIDAZOLAM HCL 2 MG/2 ML VIAL ONE; -ONDANSETRON HCL INJ 2MG/ML 2ML 2 MG/ML VIAL ONE; -PIPER-TAZ 3.375 GM 50 ML ONE; -PROPOFOL IV EMULSION 10 MG/ML 20 ML VIAL ONE; -SEVOFLURANE INHAL SOLN 250 ML PEN BTL ONE
--- OUTSIDE RECORDS SUMMARY | 2020-01-03 05:50 | XMS REPORT | Clinical Summary ---
Author Author [facility] Organization [facility] Address Unknown Phone Unavailable Care Team Providers Care Embroidery Operator Name Role Phone PCP Unavailable Allergies Comments [...] Patie nt Refused) Pneumoccoccal 10/30/2012 (Deferred: Cande castrejon Refused) Family History Medical History Relation Name [...] Health Maintenance Due Date Last Done Comments HPV Cervical Cancer Scrn 1992 Breast Cancer Scrn 09/04/2004 09/05/2003 (Yearly) Colorectal Cancer Scrn 2012 Annual (FIT/FOBT) Age 50 to 75 Pap Cervical Cancer Scrn 02/05/2014 02/05/2009, 12/27/2002, 08/30/2002, Additional history exists IMM Influenza Seasonal 11/10/2019 Oct to April (>/= 19 yrs) Implants Device Identifier Shelf Expiration Date Model / Serial / L ot Implanted Type Area Manufactur er 05/10/2016 [id number] / / [id number] Implant Gu Stent Black Beauty Stent Right: Cook Double Pigtail 7fr X 24cm [id number] - Kidney(s) Ur [id number] Implanted: Qty: 1 on 09/07/2013 by Kelby Steen, MD at [facility] Results Not on fileafter 01/02/2019 Insurance Type Payer Benefit Subscriber ID Effective Phone Address Plan / Dates Group BC/BS BCBS HMO xxxxxxxxxxxx 2014-P [phone] [id number] [place] [address] Advance Directives Date Inactivated Comments Code Status Date Activated 09/17/2014 6:47 PM Full Code 09/14/2014 4:06 AM 06/17/2013 4:20 PM Full Code 06/11/2013 11:43 PM 04/24/2013 1:19 AM Full Code 04/23/2013 6:29 AM 10/30/2012 4:29 PM Full Code 10/29/2012 6:24 AM 02/18/2011 10:06 PM Full Code 02/15/2011 10:55 PM
--- OUTSIDE RECORDS SUMMARY | 2020-01-03 05:51 | XMS REPORT | Continuity of Care Document ---
Author Author Angel [employer] [facility] Address Unknown Phone Unavailable Care Team Providers Care Photographic Equipment Technician Name Role Phone [employer]. 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 PAIN Active 03/09/2015 [facility] Discharge Diagnosis: Urinary tract infec tion, site not specified 02/15/2015 02/18/2015 [facility] WEAKNESS Active 02/15/2015 [facility] Methicillin resistant Staphylococcus aureus (organism) Active Problem 03/12/2015 Problem added by Ashanti burr Expert. [facility] Medications Medication Details Route Status Patient Instructions Ordering Provider Order Date Source Ativan 1 mg, Route: PO, Drug f orm: TAB, ONCE, Dosing Weight 86.364, kg, Priority: STAT, Start date: 03/09/15 23:44:00, Stop date: 03/09/15 23:44:00 No Longer Active 03/10/2015 [facility] tramadol hydrochloride 50 MG Oral Tablet 50 mg = 1 tab, PO, BID, X 15 day, # 30 tab, 0 Refill(s) Active 03/10/2015 [facility] tramadol hydrochloride 50 MG Oral Tablet [Ultram] 1 - 2 tabs, PO, Q4-6H, PRN as needed for pain, X 7 day, # 12 tab, 0 Refill(s) Active 02/16/2015 [facility] Sulfamethoxazole 800 MG / Trimethoprim 1 60 MG Oral Tablet [Bactrim] 1 tab, PO, BID, # 20 tab, 0 Refill(s) Active 02/16/2015 [facility] Rocephin 1 gm, Route: IM, ONCE , Dosing Weight 84.091, kg, Start date: 02/15/15 17:48:00, Stop date: 02/15/15 17:48:00 Inactive 02/15/2015 [facility] Ondansetron Notes: (Same as: Dennise bowles) MEDICATION WASTE Product Size: 4 mg Product Wasted: ___ mg Inactive 02/15/2015 [facility] Sodium Chloride 0.154 MEQ/ML Injectable Solution 1,000 mL, 1000 ml/hr, Infuse Over: 1 hr, Route: IV, 1,000, Drug form: INJ, ONCE, Priority: STAT, Dosing Weight 84.091 kg, Start date: 02/15/15 15:36:00, Duration: 1 doses or times, Stop date: 02/15/15 15:36:00 Inactive 02/15/2015 [facility] Saline Flush 0.9% Notes: Same as: BD Posiflush Sterile Inactive 02/15/2015 [facility] Allergies, Adverse Reactions, Alerts Substance Category Reaction Severity Reaction type Status Date Reported Comments Source diphenhydrAMINE Assertion Drug allergy Active [facility] Immunizations No Data Provided for This Section Results Order Name Results Value Reference Range Date Interpretation Comments Source URINE AND STOOL UA Urobilinogen <=1.0 mg/dL 0.1 - 1.0 02/15/2015 [facility] URINE AND STOOL UA Protein 100 mg/dL Negative mg/dL 02/15/2015 [facility] URINE AND STOOL UA Glucose Negative mg/dL Negative mg/dL 02/15/2015 [facility] URINE AND STOOL UA Ketones Negative mg/dL Negative mg/dL 02/15/2015 [facility] URINE AND STOOL UA Bili Negative *NA* (02/15/15 4:54 PM) Negative 02/15/2015 [facility] URINE AND STOOL UA Blood Moderate *ABN* (02/15/15 4:54 PM) Negative 02/15/2015 [facility] URINE AND STOOL UA Nitrite Positive *ABN* (02/15/15 4:54 PM) Negative 02/15/2015 [facility] URINE AND STOOL UA Leuk Est Large *ABN* (02/15/15 4:54 PM) Negative 02/15/2015 [facility] URINE AND STOOL UA Sq Epi Few /LPF Few /LPF 02/15/2015 [facility] URINE AND STOOL UA WBC >182 0 - 5 02/15/2015 [facility] URINE AND STOOL UA RBC 155 0 - 2 02/15/2015 [facility] URINE AND STOOL UA Bacteria Many /HPF None Seen /HPF 02/15/2015 [facility] URINE AND STOOL UA WBC Cast 34 <=0 /LPF 02/15/2015 [facility] URINE AND STOOL UA Mucus Few /LPF None Seen /LPF 02/15/2015 [facility] URINE AND STOOL UA Color Yellow *NA* (02/15/15 4:54 PM) Yellow 02/15/2015 [facility] URINE AND STOOL UA Turbidity Marked *ABN* (02/15/15 4:54 PM) Clear 02/15/2015 [facility] URINE AND STOOL UA pH 5.0 5.0 - 8.0 02/15/2015 [facility] URINE AND STOOL UA Spec Grav 1.018 <=1.030 02/15/2015 [facility] CHEM PANEL A/G Ratio 0.6 0.7 - 1.6 02/15/2015 [facility] CHEM PANEL Globulin 5.8 2.0 - 4.0 02/15/2015 [facility] CHEM PANEL B/C Ratio 12 6 - 25 02/15/2015 [facility] CHEM PANEL AGAP 12.6 10.0 - 20.0 02/15/2015 [facility] CHEM PANEL Alk Phos 115 39 - 136 02/15/2015 [facility] CHEM PANEL AST 28 0 - 37 02/15/2015 [facility] CHEM PANEL Bili Total 0.3 0.2 - 1.3 02/15/2015 [facility] CHEM PANEL eGFR 73 02/15/2015 Result Comment: [...] should be multiplied by the estimated BMI. [facility] CHEM PANEL ALT 25 0 - 65 02/15/2015 [facility] CHEM PANEL Albumin Lvl 3.4 3.5 - 5.0 02/15/2015 [facility] CHEM PANEL Total Protein 9.2 6.4 - 8.4 02/15/2015 [facility] CHEM PANEL Calcium Lvl 9.1 8.5 - 10.5 02/15/2015 [facility] CHEM PANEL CO2 26 24 - 32 02/15/2015 [facility] CHEM PANEL Sodium Lvl 140 135 - 145 02/15/2015 [facility] CHEM PANEL Chloride Lvl 106 95 - 109 02/15/2015 [facility] CHEM PANEL Potassium Lvl 4.6 3.5 - 5.1 02/15/2015 [facility] CHEM PANEL Creatinine Lvl 0.91 0.50 - 1.40 02/15/2015 [facility] CHEM PANEL BUN 11 7 - 22 02/15/2015 [facility] CHEM PANEL Glucose Lvl 118 70 - 99 02/15/2015 [facility] ENDOCRINOLOGY S Preg Ne gative *NA* (02/15/15 4:40 PM) Negative 02/15/2015 [facility] HEMATOLOGY Lymphocytes 32.8 20.0 - 40.0 02/15/2015 [facility] HEMATOLOGY Segs 60.0 45.0 - 75.0 02/15/2015 [facility] HEMATOLOGY Eosinophils # 0.2 0.0 - 0.5 02/15/2015 [facility] HEMATOLOGY Basophils # 0.2 0.0 - 0.2 02/15/2015 [facility] HEMATOLOGY Monocytes 4.6 2.0 - 12.0 02/15/2015 [facility] HEMATOLOGY Eosinophils 1.2 0.0 - 4.0 02/15/2015 [facility] HEMATOLOGY Basophils 1.4 0.0 - 1.0 02/15/2015 [facility] HEMATOLOGY Segs-Bands # 7.3 1.5 - 8.1 02/15/2015 [facility] HEMATOLOGY Monocytes # 0.6 0.0 - 0.8 02/15/2015 [facility] HEMATOLOGY Lymphocytes # 4.0 1.0 - 5.5 02/15/2015 [facility] HEMATOLOGY Plt Morph Clump ed (02/15/15 4:40 PM) 02/15/2015 [facility] HEMATOLOGY RBC Morph Emily l (02/15/15 4:40 PM) 02/15/2015 [facility] HEMATOLOGY MPV 8.7 7.4 - 10.4 02/15/2015 [facility] HEMATOLOGY WBC 12.0 3.7 - 10.4 02/15/2015 [facility] RBC 4.90 4.20 - 5.40 02/15/2015 [facility] HEMATOLOGY Hct 39.0 36.0 - 48.0 02/15/2015 [facility] HEMATOLOGY MCV 79.7 80.0 - 98.0 02/15/2015 [facility] HEMATOLOGY Hgb 12.0 12.0 - 16.0 02/15/2015 [facility] HEMATOLOGY RDW 14.8 11.5 - 14.5 02/15/2015 [facility] HEMATOLOGY MCHC 30.8 32.0 - 36.0 02/15/2015 [facility] HEMATOLOGY Platelet 220 133 - 450 02/15/2015 [facility] HEMATOLOGY MCH 24.5 27.0 - 31.0 02/15/2015 [facility] Pathology Reports No Data Provided for This Section Diagnostic Reports No Data Provided for This Section Consultation Notes No Data Provided for This Section Discharge Summaries No Data Provided for This Section History and Physicals No Data Provided for This Section Vital Signs Vital Sign Value Date Comments Source Weight 86.364 03/10/2015 [facility] Temperature Oral (F) 97.9 F 03/10/2015 [facility] Respitory Rate 18 03/10/2015 [facility] Heart Rate 91 03/10/2015 [facility] Systolic (mm Hg) 140 03/10/2015 [facility] Diastolic (mm Hg) 99 03/10/2015 [facility] Temperature Oral (F) 98.4 F 02/16/2015 [facility] Respitory Rate 18 02/16/2015 [facility] Heart Rate 97 02/16/2015 [facility] Systolic (mm Hg) 142 02/16/2015 [facility] Diastolic (mm Hg) 82 02/16/2015 [facility] Systolic (mm Hg) 147 02/15/2015 [facility] Diastolic (mm Hg) 93 02/15/2015 [facility] Weight 84.091 02/15/2015 [facility] BMI Calculated 36.21 02/15/2015 [facility] Height 152.4 cm 02/15/2015 [facility] Heart Rate 76 02/15/2015 [facility] Respitory Rate 18 02/15/2015 [facility] Temperature Oral (F) 98.1 F 02/15/2015 [facility] Encounters Location Location Details Encounter Type Encounter Number Reason For Visit Attending Provider ADM Date DC Date Status Source [facility] [id number] 01 Ceeандрей Feliz 02/15/2015 02/16/2015 [facility] [id number] 02 Kelby Lyons 03/10/2015 03/10/2015 [facility] Procedures No Data Provided for This Section Assessment and Plan No Data Provided for This Section Plan of Care No Data Provided for This Section Social History Social History Date Source Social History TypeResponse Smoking Status Never smoker; Exposure to Tobacco Smoke None; Cigarette Smoking Last 365 Days No; Reg Smoking Cessation Counseling No 03/10/2015 [facility] Family History No Data Provided for This Section Advance Directives No Data Provided for This Section Functional Status No Data Provided for This Section
--- OUTSIDE RECORDS SUMMARY | 2020-01-03 05:54 | XMS REPORT | Continuity of Care Document ---
Author Author [facility] t Organization [facility] Address [address] [place] [address] Phone Unavailable Care Team Providers Care Chain Tender Name Role Phone NONSTAFF PCP Unavailable Tova MUÑIZ Attphys Unavailable HAMPEL, JARET Attphys Unavailable FIGUEROA CARD Attphys Unavailable SANDHIR AMBEUGENIO Attphys Unavailable JULIETA, VINNY Attphys Unavailable CHAO, T CHINCHILLA Attphys Unavailable MONTOYA, SOUHEIL Attphys Unavailable Dylan SULLIVAN Attphys Unavailable ZOMPA A JUDAH Attphys Unavailable CARLIE NIX Attphys Unavailable Daniel Lyons Attphys Ligia Feliz Attphys [phone] FIGUEROA CARD Admphys Unavailable HAMPEL, JARET Admphys Unavailable JULIETA, VINNY Admphys Unavailable MONTOYA, SOUHEIL Admphys Unavailable CARLIE NIX Admphys Unavailable Payers Payer Name Policy Type Policy Number Effective Date Expiration Date Shayna miller [employer] [id number] 2018 00:00:00 02-08 00:00:00 [facility] Cdc Review [id number] [facility] Problems Condition Name Condition Details Condition Category Status Onset Date Resolution Date Last Treatment Date Treating Clinician Comments Source Complicated urinary tract infection UTI (urinary tract infection ) Problem Active 2015-10-11 00:00:00 [facility] GEN. PAIN GEN. PAIN Active 03/09/2015 [facility] Diagnosis Active 2015-03-09 00:00:00 2015-10-25 22:11:00 [facility] WEAKNESS WEAK NESS Active 02/15/2015 [facility] Diagnosis Active 2015-02-15 00:00:00 2015-02-15 16:11:00 [facility] BMI 36.0-36.9,adult BMI 36.0-36.9,adult Disease Active 2013-08-03 00:00 :00 Overview: Obese [facility] Obese Obese Disease Active 2013-08-03 00:00:00 [facility] Complicated UTI (urinary tract infection) Complicated UTI (urinary tract infection) Disease Active 2013-06-14 00:00:00 [facility] Hematuria Hematuria Disease Active 2013-06-11 00:00:00 [facility] Fatigue Fatigue Disease Active 2012-06-02 00:00:00 [facility] Myalgia Myalgia Disease Active 2012-06-02 00:00:00 [facility] Fever Fever Disease Active 2012-06-02 00:00:00 [facility] UTI (lower urinary tract infection) UTI (lower urinary tract inf ection) Disease Active 2011-12-10 00:00:00 [facility] Hydronephrosis, right Hydronephrosis, right Disease Active 201 03-12-07 00:00:00 [facility] Flank pain Flank pain Disease Active 2011-02-15 00:00:00 [facility] Cough Cough Disease Active 2010-05-16 00:00:00 [facility] Methicillin resistant Staphylococcus aureus (organism) Methicillin resistant Staphylococcus aureus (organism) Active Problem 03/12/2015 Problem added by Discern Expert. [facility] Problem Active 2015-03-12 06:01:38 [facility] Colitis Colitis Problem Active [facility] Hypokalemia Hypokalemia Problem Active [facility] Pyelonephritis Pyelonephritis Problem Active [facility] Obstruction of urinary tract Urinary obstruction Problem Active [facility] Nephrostomy status Nephrostomy status Problem Active [facility] Complication of nephrostomy Nephrostomy complication Problem Active [facility] Urinary tract infection due to Enterococcus UTI (urina ry tract infection) due to Enterococcus Problem Active [facility] Urinary tract infection associated with catheterizatio n of urinary tract UTI (urinary tract infection) due to urinary indwelling catheter Problem Active [facility] Abdominal pain Abdominal pain Problem Active [facility] 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 Problem Active [facility] Discharge Diagnosis: 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 Discharge Diagnosis: 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 03/09/2015 03/12/2015 [facility] Problem 2015-03-09 06:00:00 2015-03-12 06:01:38 2015-03-12 06:01:38 [facility] Discharge Diagnosis: Urinary tract infection, site not specified Discharge Diagnosis: Urinary tract infection, site not specified 02/15/2015 02/18/2015 [facility] Problem 2015-02-15 06:00:00 2015 06:06:10 2015-02-18 06:06:10 [facility] Allergies, Adverse Reactions, Alerts Allergy Name Allergy Type Status Severity Reaction(s) Onset Date Inacti ve Date Treating Clinician Comments Source Penicillin Allergy to substance Active 2019-10-31 00:00:00 [facility] Meropenem Allergy to substance Active REDNESS, ITCHING 00:00:00 [facility] Diphenhydramine Propensity to adverse reactions to drug Active Other 2008-12-28 00:00:00 BECAME ANXIOUS AND FELT STRA NGE [facility] diphenhydrAMINE diphenhydrAMINE Active [facility] Family History Family Member Diagnosis Comments Start Date Stop Date Source Natural father Diabetes [facility] Social History Social Habit Start Date Stop Date Quantity Comments Source Alcohol intake 2014-09-14 00:00:00 2014-09-14 00:00:00 Current non-drinker of alcohol (finding) [facility] Sex Ass[birth year] At 1960 00:00:00 1960 00:00:00 Female [facility] Smoking Status Start Date Stop Date Source Never smoker [facility] Medications Ordered Medication Name Filled Medication Name Start Date Stop Da te Current Medication? Ordering Clinician Indication Dosage Frequency Signature (SIG) Comments Components Source Acetaminophen Acetaminophen 2016-12-31 09:47:00 2018-01-08 00:00:00 No 650 Every 4 Hours as needed for Pain And Temperature [facility] Acetaminophen/Codeine Phosphate (Tylenol # 3*) 1 Ea TA B Acetaminophen/Codeine Phosphate (Tylenol # 3*) 1 Ea TAB 2016-12-31 09:47:00 2018-01-08 00:00:00 No 2 Every 6 Hours as needed for Pain [facility] Meropenem (Merrem) 500 Mg INJ Meropenem (Merrem) 500 Mg INJ 2016 09:47:00 2017-12-15 00:00:00 No 500 Q8h@05,13,21 [facility] Lisinopril Lisinopril 2016-11-06 12:33:00 2018-01-08 00:00:00 No 2.5 Daily [facility] Metformin Hcl Metformin Hcl 2016-11-06 12:33:00 2016-12-28 00:00:00 No 500 Twice A Day [facility] Fluconazole Fluconazole 2016-09-13 10:56:00 2016-11-03 00:00:00 No 200 Daily [facility] Levofloxacin (Levaquin) 500 Mg TABLET Levofloxacin (Levaquin ) 500 Mg TABLET 2016-09-13 10:56:00 2016-11-03 00:00:00 No 500 Daily [facility] Sulfamethoxazole/Trimethoprim (Bactrim Ds Tablet) 1 Ea ch TABLET Sulfamethoxazole/Trimethoprim (Bactrim Ds Tablet) 1 Each TABLET 2016-09-13 10:56:00 2016-11-03 00:00:00 No 1 Twice A Day [facility] Ativan 2015-03-10 05:44:00 No 1 mg, Route: PO, Drug form: TAB, ONCE, Dosing Weight 86.364, kg, Priority: STAT, Start date: 03/09/15 23:44:00, Stop date: 03/09/15 23:44:00 [facility] tramadol hydrochloride 50 MG Oral Tablet 2015-03-10 05:43:00 Yes 50 mg = 1 tab, PO, BID, X 15 day, # 30 tab, 0 [facility]ide 50 MG Oral Tablet [Ultram] 2015-02-16 01:10:00 Yes 1 - 2 tabs, PO, Q4-6 H, PRN as needed for pain, X 7 day, # 12 tab, 0 Refill(s) [facility] Sulfamethoxazole 800 MG / Trimethoprim 160 MG Oral Tablet [B actrim] 2015-02-16 01:09:00 Yes 1 tab, PO, BID, # 20 tab, 0 Refill([facility]) [facility] Rocephin 2015-02-15 23:48:00 No 1 gm, Route: IM, ONCE, Dosing Weight 84.091, kg, Start date: 02/15/15 17:48:00, Stop date: 02/15/15 17:48:00 [facility] Ondansetron 2015-02-15 21:36:00 No Notes: (Same as: Wiley) MEDICATION WASTE Product Size: 4 mg Product Wasted: ___ mg [facility] Sodium Chloride 0.154 MEQ/ML Injectable Solution 2015-02-15 21:3 6:00 No 1,000 mL, 1000 ml/hr, Infuse Over: 1 hr, Route: IV, 1,000, Drug form: INJ, ONCE, Priority: STAT, Dosing Weight 84.091 kg, Start date: 02/15/15 15:36:00, Duration: 1 doses or times, Stop date: 02/15/15 15:36:00 [facility] Saline Flush 0.9% 2015-02-15 21:36:00 No Notes: Same as: BD Posiflush Sterile [facility] traMADol (ULTRAM) 50 mg tablet 2014-09-17 16:46:57 Yes 50mg Take 50 mg by mouth as needed. [facility] acetaminophen (TYLENOL) 325 mg tablet 2014-09-17 16:46:57 Y es 650mg Take 650 mg by mouth every 6 hours as needed. [facility] metFORMIN (GLUCOPHAGE) 500 mg tablet 2014-09-17 16:46:57 Ye s 500mg Take 500 mg by mouth 2 times daily (with meals). [facility] fenofibrate nanocrystallized (TRICOR) 145 mg tablet 09-17 16:46:57 Yes 145mg QD Take 145 mg by mouth daily. [facility] lisinopril (PRINIVIL, ZESTRIL) 2.5 mg tablet 2014-09-17 16:46:57 Yes 2.5mg QD Take 2.5 mg by mouth daily. [facility] atorvastatin (LIPITOR) 20 mg tablet 2014-09-17 16:46:57 Yes 20mg Take 20 mg by mouth at bedtime nightly. [facility] HYDROcodone-acetaminophen (NORCO) 10-325 mg tablet 2013-08 00:00:00 Yes Pyelonephritis 1{tbl} Take 1 tablet by mouth every 6 hours as needed for Pain. [facility] cyclobenzaprine (FLEXERIL) 10 mg tablet 2012-11-22 00:00:00 Yes Flank Pain 10mg Take 1 tablet by mouth 2 times daily as needed for Muscle Spasms. [facility] flavoxate (URISPAS) 100 mg tablet 2011-12-17 00:00:00 Yes Hydronephrosis, right 100mg Take 1 tablet by mouth 3 times daily as needed (dysuria). [facility] tamsulosin (FLOMAX) 0.4 mg extended release capsule 10-01 00:00:00 Yes Hydronephrosis .4mg QD Take 1 capsule by mouth daily. [facility] famotidine (PEPCID) 20 mg tablet 2011-02-18 00:00:00 Yes GERD (gastroesophageal reflux disease) 20mg Q.5D Take 1 Tab by mouth 2 times daily. [facility] oxybutynin (DITROPAN) 5 mg tablet 2009-12-17 00:00:00 Yes Ureteral stricture 5mg Take 1 Tab by mouth 3 times daily. For bladder spasms [facility] doxazosin (CARDURA) 2 mg tablet 2009-12-17 00:00:00 Yes Ureteral stricture 2mg Take 1 Tab by mouth at bedtime. [facility] Buspirone Hcl Buspirone Hcl Yes 10 Twic e A Day as needed for Anxiety [facility] Glipizide (Glipizide Er) 5 Mg TAB.ER.24 Glipizide (Glipizide Er) 5 Mg TAB.ER.24 Yes [address] [facility] Metoprolol Tartrate (Lopressor) 25 Mg TAB Metoprolol T artrate (Lopressor) 25 Mg TAB Yes 50 Twice A Day [facility] Amlodipine Besylate (Norvasc) 5 Mg TAB Amlodipine Besylate (Norv asc) 5 Mg TAB 2019-08-23 00:00:00 No 5 Daily [facility] Ondansetron Hcl (Zofran) 8 Mg TABLET Ondansetron Hcl (Zofran) 8 Mg TABLET 2019-08-23 00:00:00 No 4 Every 4 Ho urs as needed for Nausea And Vomiting [facility] Cefuroxime Axetil (Cefuroxime) 500 Mg TABLET Cefuroxim e Axetil (Cefuroxime) 500 Mg TABLET 2019-07-05 00:00:00 No 500 Twice A Day [facility] Hydrocodone Bit/Acetaminophen ([place] 7.5-325 Tablet) 1 Each TABLET Hydrocodone Bit/Acetaminophen ([place] 7.5-325 Tablet) 1 Each TABLET 2019-06-11 6 00:00:00 No 1 Every 8 Hours as needed for Pain [facility] Sennosides/Docusate Sodium (Senokot-S Tablet) 1 Each T ABLET Sennosides/Docusate Sodium (Senokot-S Tablet) 1 Each TABLET 2019-07-05 00:00:00 No 1 Twice A Day [facility] Acetaminophen With Codeine (Tylenol With Codeine #3 Ta blet) 1 Each TABLET Acetaminophen With Codeine (Tylenol With Codeine #3 Tablet) 1 Each TABLET 2019-06-11 00:00:00 No 1 As Needed as needed for Moderate Pain (4-6) [facility] Metoprolol Tartrate Metoprolol Tartrate 2019-06-11 00:00:00 No 25 Daily [facility] Fluconazole Fluconazole 2019-06-04 00:00:00 No 100 D aily [facility] Levofloxacin (Levaquin) 500 Mg TABLET Levofloxacin (Levaquin) 50 0 Mg TABLET 2019-06-04 00:00:00 No 250 Daily [facility] Linezolid (Zyvox) 600 Mg TABLET Linezolid (Zyvox) 600 Mg TABLET 2019-06-04 00:00:00 No 600 Twice A Day [facility] Cephalexin (Keflex) 250 Mg CAPSULE Cephalexin (Keflex) 250 Mg CA PSULE 2019-02-10 00:00:00 No Twice A Day [facility] Chrofloxacin Chrofloxacin 2019-02-10 00:00:00 No 25 Twice A Day [facility] Lisinopril Lisinopril 2019-01-14 00:00:00 No 5 Kristen ly [facility] Dicyclomine Hcl Dicyclomine Hcl 2018-09-30 00:00:00 No 20 Daily [facility] Docusate Sodium (Colace) 100 Mg CAP Docusate Sodium (Colace) 100 Mg CAP 2018-09-30 00:00:00 No 100 Twice A Day [facility] Ondansetron Hcl (Zofran*) 4 Mg TABLET Ondansetron Hcl (Zofran*) 4 Mg TABLET 2018-09-30 00:00:00 No 4 as needed for Nausea And Vomiting [facility] Buspirone Hcl Buspirone Hcl 2018-07-30 00:00:00 No 10 Twice A Day as needed for Anxiety [facility] Ciprofloxacin Hcl (Cipro) 500 Mg TABLET Ciprofloxacin Hcl (C ipro) 500 Mg TABLET 2018-07-30 00:00:00 No 500 Every 12 Hours [facility] Acetaminophen With Codeine (Tylenol With Codeine #3 Ta blet) 1 Each TABLET Acetaminophen With Codeine (Tylenol With Codeine #3 Tablet) 1 Each TABLET 2018-07-19 00:00:00 No 1 Every 6 Hours as nee ded for Pain [facility] Fluconazole (Diflucan) 200 Mg TABLET Fluconazole (Diflucan) 200 Mg TABLET 2018-07-19 00:00:00 No 200 Daily [facility] Ondansetron Hcl Ondansetron Hcl 2018-07-19 00:00:00 No 4 Every 4 Hours as needed for Nausea [facility] Cephalexin Monohydrate (Keflex) 500 Mg CAPSULE Cephale ever Monohydrate (Keflex) 500 Mg CAPSULE 2018-05-10 00:00:00 No 500 Every 12 Hours [facility] Lisinopril Lisinopril 2018-05-06 00:00:00 No 5 Kristen ly [facility] Ondansetron Ondansetron 2018-05-06 00:00:00 No 4 Every 4 Hours as needed for Nausea [facility] Ciprofloxacin Hcl (Cipro) 500 Mg TABLET Ciprofloxacin Hcl (C ipro) 500 Mg TABLET 2018-03-26 00:00:00 No 500 Every 12 Hours [facility] Meropenem Meropenem 2018-01-08 00:00:00 No 1 Every 8 Hours [facility] Ciprofloxacin Hcl (Cipro) 500 Mg TABLET Ciprofloxacin Hcl (C ipro) 500 Mg TABLET 2017-12-15 00:00:00 No 250 Twice A Day [facility] Fluconazole (Diflucan) 100 Mg TABLET Fluconazole (Diflucan) 100 Mg TABLET 2017-12-15 00:00:00 No [facility] Ciprofloxacin Hcl (Cipro) 500 Mg TABLET Ciprofloxacin Hcl (C ipro) 500 Mg TABLET 2016-12-31 00:00:00 No 250 Every 12 Hours [facility] Fluconazole (Diflucan) 100 Mg TABLET Fluconazole (Diflucan) 100 Mg TABLET 2016-12-28 00:00:00 No Daily [facility] Metronidazole (Flagyl) 250 Mg TABLET Metronidazole (Flagyl) 250 Mg TABLET 2016-09-07 00:00:00 No 250 Every 6 Hours [facility] Cranberry/Vit C/L. Sporogenes (Cranberry Tablet) 1 Eac h TABLET Cranberry/Vit C/L. Sporogenes (Cranberry Tablet) 1 Each TABLET 2016-07-24 00:00:00 No 1000 Twice A Day [facility] Atorvastatin Calcium Atorvastatin Calcium 2016-06-10 00:00:00 No 20 Daily [facility] Cefdinir (Omnicef) 300 Mg CAPSULE Cefdinir (Omnicef) 300 Mg CAPS ULE 2016-06-10 00:00:00 No Twice A Day [facility] Cyanocobalamin (Vitamin B-12) (Vitamin B-12) 1,000 Mcg TAB.SUBL Cyanocobalamin (Vitamin B-12) (Vitamin B-12) 1,000 Mcg TAB.SUBL 2016-06-10 00:00:00 N o [facility] Fenofibrate Nanocrystallized (Fenofibrate) 145 Mg TABL ET Fenofibrate Nanocrystallized (Fenofibrate) 145 Mg TABLET 2016-06-10 00:00:00 No Daily [facility] Lisinopril Lisinopril 2016-06-10 00:00:00 No 25 Kristen ly [facility] Amoxicillin/Potassium Clav (Amox Tr-K Clv 875-125 Mg T ab) 1 Each TABLET Amoxicillin/Potassium Clav (Amox Tr-K Clv 875-125 Mg Tab) 1 Each TABLET 2016-01-31 00:00:00 No 1 Twice A Day [facility] Atorvastatin Calcium Atorvastatin Calcium 2016-01-31 00:00:00 No 20 Bedtime [facility] Cholecalciferol (Vitamin D3) (Vitamin D3) 50,000 Unit CAPSULE Cholecalciferol (Vitamin D3) (Vitamin D3) 50,000 Unit CAPSULE 2016-01-31 00:00:00 No 1 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 [facility] Cyanocobalamin (Vitamin B-12) 1,000 Mcg TAB Cyanocobal oglden (Vitamin B-12) 1,000 Mcg TAB 2016-01-31 00:00:00 No 1000 Daily [facility] Fenofibrate Nanocrystallized (Fenofibrate) 145 Mg TABL ET Fenofibrate Nanocrystallized (Fenofibrate) 145 Mg TABLET 2016-01-31 00:00:00 No 145 Daily [facility] Lisinopril Lisinopril 2016-01-31 00:00:00 No 2.5 Kristen ly [facility] Metformin Hcl Metformin Hcl 2016-01-31 00:00:00 No 500 Twice A Day [facility] Trazodone Hcl Trazodone Hcl 2016-01-31 00:00:00 No 100 Bedtime [facility] Atorvastatin Calcium Atorvastatin Calcium 2015-11-16 00:00:00 No 20 Today At 9:00PM [facility] Cefdinir (Omnicef) 300 Mg CAPSULE Cefdinir (Omnicef) 300 Mg CAPS ULE 2015-11-16 00:00:00 No 300 Twice A Day [facility] Cyanocobalamin (Vitamin B-12) 1,000 Mcg TAB Cyanocobal golden (Vitamin B-12) 1,000 Mcg TAB 2015-11-16 00:00:00 No 1000 Daily [facility] Fenofibrate Nanocrystallized (Fenofibrate) 145 Mg TABL ET Fenofibrate Nanocrystallized (Fenofibrate) 145 Mg TABLET 2015-11-16 00:00:00 No 1 Daily [facility] Fluconazole (Diflucan) 100 Mg TABLET Fluconazole (Diflucan) 100 Mg TABLET 2015-11-16 00:00:00 No 100 Daily [facility] Lisinopril (Prinavil / Zestril) 20 Mg TABLET Lisinopri l (Prinavil / Zestril) 20 Mg TABLET 2015-11-16 00:00:00 No 25 Daily [facility] Metformin Hcl Metformin Hcl 2015-10-11 00:00:00 No 500 Twice A Day [facility] Tramadol Hcl (Ultram) 50 Mg TABLET Tramadol Hcl (Ultram) 50 Mg T ABLET 2015-10-11 00:00:00 No 50 Twice A Day [facility] Vital Signs Vital Name Observation Time Observation Value Comments Source Body Temperature 2019-10-31 13:33:00 98.7 [degF] [facility] Weight 2019-10-31 10:56:00 202 [lb_av] [facility] BMI (Body Mass Index) 2019-10-31 10:56:00 39.4 kg/m2 [facility] Body Temperature 2019-07-09 11:31:00 98.2 [degF] [facility] Weight 2019-07-08 01:05:00 202 [lb_av] [facility] BMI (Body Mass Index) 2019-07-08 01:05:00 39.4 kg/m2 [facility] Body Temperature 2019-06-11 08:25:00 98.5 [degF] [facility] Weight 2019-06-04 15:24:00 198 [lb_av] [facility] BMI (Body Mass Index) 2019-06-04 15:24:00 38.7 kg/m2 [facility] Weight 2015-03-10 02:31:00 [facility] Temperature Oral (F) 2015-03-10 02:31:00 97.9 F [facility] Respitory Rate 2015-03-10 02:31:00 [facility] Heart Rate 2015-03-10 02:31:00 [facility] Systolic (mm Hg) 2015-03-10 02:31:00 [facility] Diastolic (mm Hg) 2015-03-10 02:31:00 [facility] Temperature Oral (F) 2015-02-16 01:28:00 98.4 F [facility] Respitory Rate 2015-02-16 01:28:00 [facility] Heart Rate 2015-02-16 01:28:00 [facility] Systolic (mm Hg) 2015-02-16 01:28:00 Terrence rial [facility] Diastolic (mm Hg) 2015-02-16 01:28:00 [facility] Systolic (mm Hg) 2015-02-15 21:32:00 Terrence [facility] Diastolic (mm Hg) 2015-02-15 21:32:00 [facility] Weight 2015-02-15 21:32:00 [facility] BMI Calculated 2015-02-15 21:32:00 [facility] Height 2015-02-15 21:32:00 152.4 cm [facility] Heart Rate 2015-02-15 21:32:00 [facility] Respitory Rate 2015-02-15 21:32:00 [facility] Temperature Oral (F) 2015-02-15 21:32:00 98.1 F [facility] Procedures Procedure Date / Time Performed Performing Clinician [facility] e CYSTOSCOPY AND TREATMENT 2019-08-26 00:00:00 [facility] CYSTO W/URETER STRICTURE [place] 2019-08-26 00:00:00 [facility] REMOVAL OF INTRALUMINAL DEVICE FROM URETER, ENDO 2019-06-09 00:0 0:00 [facility] DILATION OF LEFT URETER WITH INTRALUMINAL DEVICE, ENDO 2019-05-13 0 00:00:00 [facility] FLUOROSCOPY KIDNEY, URETER, BLADDER, L W L OSM CONTRAST 00:00:00 [facility] DILATION OF URETHRA, ENDO 2019-06-09 00:00:00 [facility] Computed tomography of brain without radiopaque contrast 2019-05 00:00:[address] [facility] [address] of abdomen and pelvis without contrast 2019-06-04 00:00:00 [facility] CHANGE DRAINAGE DEVICE IN KIDNEY, EXTERNAL APPROACH 2019-02-07 0 0:00:00 [facility] CYSTOSCOPY AND TREATMENT 2019-01-17 00:00:00 [facility] CYSTO W/URETER STRICTURE [place] 2019-01-17 00:00:00 [facility] Plan of Care Planned Activity Planned Date Details Comments Source Future Scheduled Test 2019-11-10 00:00:00 IMM Influenza Seas onal Nov to April (>/= 19 yrs) [code = IMM Influenza Seasonal Nov to April (>/= 19 yrs)] [facility] Scheduled Test 2014-02-05 00:00:00 Screening for tracy gnant neoplasm of cervix (procedure) [code = 163194801] [facility] Scheduled Test 2012 00:00:00 Screening for tracy gnant neoplasm of colon (procedure) [code = 858138066] [facility] Scheduled Test 2004-09-04 00:00:00 Breast Cancer Scrn (Yearly) [code = Breast Cancer Scrn (Yearly)] [facility] Scheduled Test 1992 00:00:00 Screening for tracy gnant neoplasm of cervix (procedure) [code = 518881254] [facility] Instructions [facility]. [facility] Instructions Urinary Tract Infection - Women [facility]. [facility] Encounters Start Date/Time End Date/Time Encounter Type Admission Type Attendi [facility] Care Department Encounter ID Source 2019-10-31 11:57:00 2019-10-31 13:46:00 Departed Emergency Room LIZ MUÑIZ [facility] [id number] [facility] - [facility] 2019-09-26 15:13:00 2019-09-26 15:13:00 Registered Clinic 3 PERLA HART, JARET [facility] [id number] [facility] 2019-08-26 10:39:00 2019-08-26 10:39:00 Registered Surgical Day Care [facility] [id number] [facility] 2019-07-04 21:44:00 2019-07-09 12:09:00 Discharged Inpatient [facility] [id number] [facility] 2019-06-04 13:17:00 2019-06-11 10:40:00 Discharged Inpatient 1 FIGUEROA CARD [facility] [id number] [facility] - [facility] 2019-02-24 11:21:00 2019-02-24 20:46:00 Departed Emergency Room 1 LUZ MARINA GARCIA [facility] [id number] [facility] 2019-02-06 08:38:00 2019-02-10 11:48:00 Discharged Inpatient 1 FIGUEROA CARD [facility] [id number] [facility] 2019-01-17 10:39:00 2019-01-17 10:39:00 Registered Surgical Day Car e 3 JARET ESPINOSA [facility] [id number] [facility] 2019-01-12 20:48:00 2019-01-13 00:40:00 Departed Emergency [facility] [id number] [facility] 2018-12-14 09:50:00 2018-12-14 12:01:00 Departed Emergency Room [facility] [id number] [facility] 2018-12-02 08:28:00 2018-12-02 08:28:00 Registered Clinic 3 PERLA HART, JARET [facility] [id number] [facility] 2018-10-31 05:33:00 2018-10-31 06:27:00 Departed Emergency Room [facility] [id number] [facility] 2018-10-23 12:06:00 2018-10-23 13:42:00 Departed Emergency Room [facility] [id number] [facility] 2018-10-01 06:19:00 2018-10-01 06:19:00 Registered Surgical Day Car e 3 JESÚS [facility] [id number] [facility] 2018-09-09 18:21:00 2018-09-13 12:48:00 Discharged Inpatient 1 LIZ MUÑIZ [facility] [id number] [facility] [place] [facility] - Patients [facility] 2018-08-06 09:33:00 2018-08-06 09:33:00 Registered Surgical Day Car e 3 JESÚS JARET [facility] [id number] [facility] 2018-07-30 10:15:00 2018-07-30 11:33:00 Departed Emergency Room [facility] [id number] [facility] 2018-07-19 14:11:00 2018-07-19 19:19:00 Departed Emergency Room [facility] [id number] [facility] 2018-05-29 13:14:00 2018-05-29 19:30:00 Departed Emergency Room 1 LIZ MUÑIZ [facility] [id number] [facility] 2018-05-06 14:04:00 2018-05-10 16:20:00 Discharged Inpatient 1 FIGUEROA CARD [facility] [id number] [facility] 2018-04-07 08:50:00 2018-04-07 08:50:00 Registered Surgical Day Car e JARET GAUTHIER [facility] [id number] [facility] 2018-03-29 15:25:00 2018-03-29 17:05:00 Departed Emergency Room [facility] [id number] [facility] Patients [facility] 2018-03-10 12:32:00 2018-03-10 16:55:00 Departed Emergency Room 1 LUZ MARINA BONDS [facility] [id number] [facility] 2018-02-21 12:46:00 2018-02-21 16:46:00 Departed Emergency Room [facility] [id number] [facility] 2018-01-09 09:35:00 2018-01-13 16:22:00 Discharged Inpatient [facility] [id number] [facility] 2017-12-22 12:28:00 2017-12-22 12:55:00 Departed Emergency Room [facility] [id number] [facility] 2017-12-18 16:30:00 2017-12-18 21:52:00 Departed Emergency Room 1 LIZ MUÑIZ [facility] [id number] [facility] 2017-12-10 14:41:00 2017-12-15 18:30:00 Discharged Inpatient 1 VINNY RENDON [facility] [id number] [facility] 2017-11-30 20:49:00 2017-12-04 16:53:00 Discharged Inpatient 1 RENÉE GUIDRY [facility] [id number] [facility] 2017-11-14 20:27:00 2017-11-14 21:25:00 Departed Emergency Room [facility] [id number] [facility] 2017-11-05 15:08:00 2017-11-05 15:08:00 Registered Clinic 3 JARET MAN [facility] [id number] [facility] 2017-09-18 01:04:00 2017-09-23 18:35:00 Discharged Inpatient 1 DIA MONTOYARENEA [facility] [id number] [facility] 2017-08-10 13:10:00 2017-08-10 18:25:00 Departed Emergency Room [facility] [id number] [facility] 2017-07-16 02:07:00 2017-07-16 02:38:00 Departed Emergency Room [facility] [id number] [facility] 2017-07-05 12:59:00 2017-07-05 13:01:00 Departed Emergency Room [facility] [id number] [facility] 2017-07-03 07:21:00 2017-07-03 07:21:00 Registered Surgical Day Care [facility] [id number] [facility] 2017-07-01 11:08:00 2017-07-01 11:08:00 Registered Surgical Day Car e 3 OSIEL SULLIVAN [facility] [id number] [facility] 2017-04-12 13:23:00 2017-04-12 17:28:00 Departed Emergency Room ER MIGUEL ANGELTova ANDREWSKERRI [facility] [id number] [facility] 2017-03-11 06:30:00 2017-03-14 14:25:00 Discharged Inpatient ER VIKY MONTOYA [facility] [id number] [facility] 2016-12-27 20:18:00 2016-12-31 14:28:00 Discharged Inpatient ER CARLIE NIX [facility] [id number] [facility] 2016-11-06 07:17:00 2016-11-06 17:05:00 Discharged Inpatient ER CARLIE NIX [facility] [id number] [facility] 2016-09-07 18:56:00 2016-09-15 17:00:00 Discharged Inpatient [facility] [id number] [facility] 2016-07-24 15:58:00 2016-07-29 12:09:00 Discharged Inpatient [facility] [id number] [facility] 2016-06-11 08:01:00 2016-06-11 08:01:00 Registered Surgical Day Care [facility] [id number] [facility] 2015-03-09 20:28:00 2015-03-09 23:43:00 [id number] 2015-02-15 15:13:00 2015-02-15 19:33:00 [facility] [id number] Results Test Description Test Time Test Comments Results Result Comments Source Blood leukocytes automated count (number/volume) 2019-10-31 11:45:00 Test Item White Blood Count (test code = 6690-2) 7.89 4.8-10.8 [facility] count (number/volume)2019-10-31 11:45:00* Test Item Value Reference Range Interpretation Comments Red Blood Count (test code = 789-8) 4.15 3.6-5.1 [facility] measurement (moles/volume)2019-10-31 11:45:00* Test Item Value Reference Range Interpretation Comments Hemoglobin (test code = 32837-1) 10.6 12.0-16.0 [facility] blood hematocrit (volume fraction)2019-10-31 11:45:00* Test Item Value Reference Range Interpretation Comments Hematocrit (test code = 4544-3) 34.6 34.2-44.1 [facility] erythrocyte mean corpuscular zziley6813-89-83 11:45:00* Test Item Value Reference Range Interpretation Comments Mean Corpuscular Volume (test code = 787-2) 83.4 81-99 [facility] eryth[facility] mean corpuscular hemoglobin (mass per erythrocyte)2019-10-31 11:45:00* Test Item Value Reference Range Interpretation Comments Mean Corpuscular Hemoglobin (test code = 785-6) 25.5 28-32 [facility] erythrocyte mean corpuscular hemoglobin concentration measurement (mass/volume)2019-10-31 11:45:00* Test Item Value Reference Range Interpretation Comments Mean Corpuscular Hemoglobin Concent (test code = 786-4) 30.6 31-35 [facility] HospitalRDW IgcWm-Tnt3207-73-21 11:45:00* Test Item Value Reference Range Interpretation Comments Red Cell Distribution Width (test code = 18048-1) 14.4 11.7 -14.4 [facility] HospitalAutat[facility] waxhawed blood platelet count (count/volume)2019-10-31 11:45:00* Test Item Value Reference Range Interpretation Comments Platelet Count (test code = 777-3) 266 140-360 [facility] blood segmented neutrophil count as percentage of total bbzyiwakmv1770-92-57 11:45:00* Test Item Value Reference Range Interpretation Comments Neutrophils (%) (Auto) (test code = 89346-8) 76.9 38.7-80.0 [facility] HospitalAutomated blood lymphocyte count as percentage ot total nocqatksep6566-35-96 11:45:00* Test Item Value Reference Range Interpretation Comments Lymphocytes (%) (Auto) (test code = 736-9) 16.1 18.0-39.1 [facility] HospitalAutom[facility] blood monocyte count as percentage of total osdiqxfctc9100-20-05 11:45:00* Test Item Value Reference Range Interpretation Comments Monocytes (%) (Auto) (test code = 5905-5) 5.1 4.4-11.3 [facility] HospitalAutom[facility] blood eosinophil count as percentage of total sykhdynfap1788-15-22 11:45:00* Test Item Value Reference Range Interpretation Comments Eosinophils (%) (Auto) (test code = 713-8) 0.8 0.0-6.0 [facility]Autom[facility] blood basophil count as percentage of total ubenedsnsf2163-99-26 11:45:00* Test Item Value Reference Range Interpretation Comments Basophils (%) (Auto) (test code = 706-2) 0.5 0.0-1.0 [facility] HospitalFluoroscopic procedure less than one hour cnvlwgwv8806-76-76 11:45:00* Test Item Value Reference Range Interpretation Comments IM GRANULOCYTES % (test code = IM GRANULOCYTES %) 0.6 0.0- 1.0 [facility] Hospital[facility] blood neutrophil count 2019-10-31 11:45:00* Test Item Value Reference Range Interpretation Comments Neutrophils # (Auto) (test code = 751-8) 6.1 2.1-6.9 [facility] HospitalBlood lymphocytes count (number/volume) 2019-10-31 11:45:00* Test Item Value Reference Range Interpretation Comments Lymphocytes # (Auto) (test code = 87935-8) 1.3 1.0-3.2 [facility] HospitalBlood monocytes automated count (number/volume)2019-10-31 11:45:00* Test Item Value Reference Range Interpretation Comments Monocytes # (Auto) (test code = 742-7) 0.4 0.2-0.8 [facility] HospitalAutomated blood eosinophil count 2019-10-31 11:45:00* Test Item Value Reference Range Interpretation Comments Eosinophils # (Auto) (test code = 711-2) 0.1 0.0-0.4 [facility] HospitalAutomated blood basophil count (count/volume)2019-10-31 11:45:00* Test Item Value Reference Range Interpretation Comments Basophils # (Auto) (test code = 704-7) 0.0 0.0-0.1 [facility] HospitalFluoroscopic procedure less than one hour tnrgeopo6236-00-15 11:45:00* Test Item Value Reference Range Interpretation Comments Absolute Immature Granulocyte (auto (irena t code = Absolute Immature Granulocyte (auto) 0.05 0-0.1 [facility] HospitalProthrombin time (PT) in platelet poor plasma by coagulation ituib6751-97-11 11:45:00* Test Item Value Reference Range Interpretation Comments Prothrombin Time (test code = 5902-2) 13.1 11.9-14.5 [facility] HospitalINR in Platelet poor plasma by Coagulation zzqdb8949-93-15 11:45:00* Test Item Value Reference Range Interpretation Comments Prothromb Time International Ratio (test code = 6301-6) 0.94 Oral Anticoagulant Therapy INR Values:1. Low Intensity Therapy 1.5 - 2.02 . Moderate Intensity Therapy 2.0 - 3.03. High Intensity Therapy(1) 2.5 - 3. 54. High Intensity Therapy(2) 3.0 - 4.05. Panic Value INR > 5.0 [facility] HospitalActivated partial thromboplastin time (aPTT) in platelet poor plasma by coagulation qxrmv4670-25-24 11:45:00* Test Item Value Reference Range Interpretation Comments Activated Partial Thromboplast Time (test code = 07850-7) 31.0 23.8-35.5 [facility] HospitalUrine color mazudmvqiilzd6479-37-02 11:45:00* Test Item Value Reference Range Interpretation Comments Urine Color (test code = 5778-6) HEAVENLY YELLOW [facility] HospitalUrine fnjjyes9899-04-61 11:45:00* Test Item Value Reference Range Interpretation Comments Urine Clarity (test code = 28787-0) TURBID CLEAR [facility] gravity of Urine by Test strip 2019-10-31 11:45:00* Test Item Value Reference Range Interpretation Comments Urine Specific [place] (test code = 5811-5) 1.025 1.010-1.02 5 [facility] HospitalUrine pH measurement by automated test cjpcm5619-88-52 11:45:00* Test Item Value Reference Range Interpretation Comments Urine pH (test code = 57005-7) 7.5 5-7 [facility] HospitalUrine leukocyte esterase detection by hhcdqzxw4879-33-68 11:45:00* Test Item Value Reference Range Interpretation Comments Urine Leukocyte Esterase (test code = 5799-2) MODERATE NEGATIVE [facility] HospitalUrine nitrite yvzxdmmnt4344-40-91 11:45:00* Test Item Value Reference Range Interpretation Comments Urine Nitrite (test code = 46857-4) POSITIVE NEGATIVE [facility] HospitalUrine protein measurement by test strip (mass/volume)2019-10-31 11:45:00* Test Item Value Reference Range Interpretation Comments Urine Protein (test code = 5804-0) >=300 NEGATIVE [facility] HospitalUrine glucose wcevecrtk8427-41-43 11:45:00* Test Item Value Reference Range Interpretation Comments Urine Glucose (UA) (test code = 2349-9) NEGATIVE NEGATIVE [facility] HospitalUrine ketones detection by automated test gcasi6849-58-33 11:45:00* Test Item Value Reference Range Interpretation Comments Urine Ketones (test code = 99269-5) NEGATIVE NEGATIVE [facility] HospitalUrine urobilinogen measurement by test strip (mass/volume)2019-10-31 11:45:00* Test Item Value Reference Range Interpretation Comments Urine Urobilinogen (test code = 23828-3) 1 0.2-1 [facility] HospitalUrine total bilirubin measurement (mass/volume)2019-10-31 11:45:00* Test Item Value Reference Range Interpretation Comments Urine Bilirubin (test code = 1978-6) NEGATIVE NEGATIVE [facility] HospitalUrine erythrocytes bwtzihtct5734-08-10 11:45:00* Test Item Value Reference Range Interpretation Comments Urine Blood (test code = 42040-3) LARGE NEGATIVE [facility] HospitalAutomated urine sediment leukocyte count by microscopy (number/high power field)2019-10-31 11:45:00* Test Item Value Reference Range Interpretation Comments Urine WBC (test code = 5821-4) 20 0-5 [facility] HospitalErythrocytes detection in urine sediment by light iggindjfnf1493-30-88 11:45:00* Test Item Value Reference Range Interpretation Comments Urine RBC (test code = 02275-3) 21-50 0-5 [facility] HospitalBacteria detection in urine sediment by light arelbnvgqi5873-13-54 11:45:00* Test Item Value Reference Range Interpretation Comments Urine Bacteria (test code = 91775-7) MANY NONE [facility] HospitalEpithelial cells detection in urine sediment by light qwljdxzmat0050-82-55 11:45:00* Test Item Value Reference Range Interpretation Comments Urine Epithelial Cells (test code = 44143-9) FEW NONE [facility] or plasma sodium measurement (moles/volume)2019-10-31 11:45:00* Test Item Value Reference Range Interpretation Comments Sodium Level (test code = 2951-2) 140 136-145 [facility]resserum or plasma potassium measurement (moles/volume)2019-10-31 11:45:00* Test Item Value Reference Range Interpretation Comments Potassium Level (test code = 2823-3) 3.3 3.5-5.1 [facility] or plasma chloride measurement (moles/volume)2019-10-31 11:45:00* Test Item Value Reference Range Interpretation Comments Chloride Level (test code = 2075-0) 105 98-107 [facility]ress[facility]um or plasma carbon dioxide, total measurement (moles/volume)2019-10-31 11:45:00* Test Item Value Reference Range Interpretation Comments Carbon Dioxide Level (test code = 2028-9) 21 22-29 [facility]ress[facility]um or plasma anion jcg0648-63-81 11:45:00* Test Item Value Reference Range Interpretation Comments Anion Gap (test code = 39926-7) 17.3 8-16 [facility] or plasma urea nitrogen measurement (mass/volume)2019-10-31 11:45:00* Test Item Value Reference Range Interpretation Comments Blood Urea Nitrogen (test code = 3094-0) 14 7-26 [facility] or plasma creatinine measurement (mass/volume)2019-10-31 11:45:00* Test Item Value Reference Range Interpretation Comments Creatinine (test code = 2160-0) 1.19 0.57-1.11 [facility] or plasma urea nitrogen/creatinine mass ulsup7519-51-40 11:45:00* Test Item Value Reference Range Interpretation Comments BUN/Creatinine Ratio (test code = 3097-3) 12 6-25 [facility] HospitalEstimated glomerular filtration rate (GFR) zcxmeebctlseu6610-88-82 11:45:00* Test Item Value Reference Range Interpretation Comments Estimat Glomerular Filtration Rate (test code = 724692140) 47 >60 Ranges were taken from the National Kidney Disease Education Program and the [facility] Kidney Foundation literature.Reference ranges:60 or greater: Xefagk90-65 ( for 3 consecutive months): Chronic kidney disease 15 or less: Kidney failureMethodist McKinney HospitalGlucose vmqfkwueule2898-70-50 11:45:00* Test Item Value Reference Range Interpretation Comments Glucose Level (test code = OQC7304) 201 74-118 [facility] or plasma calcium measurement (mass/volume)2019-10-31 11:45:00* Test Item Value Reference Range Interpretation Comments Calcium Level (test code = 10306-3) 9.2 8.4-10.2 [facility] or plasma total bilirubin measurement (mass/volume)2019-10-31 11:45:00* Test Item Value Reference Range Interpretation Comments Total Bilirubin (test code = 1975-2) 0.3 0.2-1.2 [facility] HospitalFluoroscopic procedure less than one hour kshnegzy9241-81-17 11:45:00* Test Item Value Reference Range Interpretation Comments Aspartate Amino Transf (AST/SGOT) (test code = Aspartate Amino Transf (AST/SGOT)) 13 5-34 [facility]ress[facility]um or plasma alanine aminotransferase measurement (enzymatic activity/volume)2019-10-31 11:45:00* Test Item Value Reference Range Interpretation Comments Alanine Aminotransferase (ALT/SGPT) (test code = 1742-6) 13 0-55 [facility] or plasma protein measurement (mass/volume)2019-10-31 11:45:00* Test Item Value Reference Range Interpretation Comments Total Protein (test code = 2885-2) 8.3 6.5-8.1 [facility] or plasma albumin measurement (mass/volume)2019-10-31 11:45:00* Test Item Value Reference Range Interpretation Comments Albumin (test code = 1751-7) 4.1 3.5-5.0 [facility] HospitalPlasma globulin measurement (mass/volume) 2019-10-31 11:45:00* Test Item Value Reference Range Interpretation Comments Globulin (test code = 53517-5) 4.2 2.3-3.5 [facility] or plasma albumin/globulin mass gwjvl9957-51-11 11:45:00* Test Item Value Reference Range Interpretation Comments Albumin/Globulin Ratio (test code = 1759-0) 1.0 0.8-2.0 [facility] or plasma alkaline phosphatase measurement (enzymatic activity/volume)2019-10-31 11:45:00* Test Item Value Reference Range Interpretation Comments Alkaline Phosphatase (test code = 6768-6) 111 40-150 [facility] HospitalCHEST SINGLE (PORTABLE)2019-10-31 11:30:00 [facility] [address] [place] [address] Patient Name: WESLY HUTCHINSON MR #: [id number] : 1960 Age/Sex: 59/F Req #: [id number] Adm Physician: Ordered by: LIZ MUÑIZ MD Report #: [id number] Location: ER Room/Bed: Procedure: [id number] DX/CHEST SINGLE (PORTABLE) Exam Date: 10/31/19 Exam [...] ronically Signed By: DEJA DAWSON MD on 10/31/19 113 Transcribed By: DEYANIAR on 10/31/19 113 COPY TO: LIZ MUÑIZ MD PCNU GUXWWBFK7468-41-90 16:35:00 [place] [address] Patient Name: WESLY HUTCHINSON MR #: [id number] : 1960 Age/Sex: 58/F Req #: [id number] Adm Physician: Ordered by: JARET ESPINOSA MD Report #: [id number] Location: DX Room/Bed: Procedure: [id number] IR/PCNU EXCH FARAZ Exam Date: Exam Time: REPORT STATUS: Signed Procedure: Right percutaneous nep hrostomy catheter exchange. History: Routine maintenance. Primary O perator: Gutierrez Lora M.D. It Assistant: Eleni Hays Modality: Fluoroscop y. DOSE REDUCTION: [...] expressed understanding and agreed to proceed. A [facility] timeout was performed prior to starting the procedure. The procedure asuncion m personnel used personal protective equipment. The operators used sterile izabela ns and gloves. The patient was laid prone on the procedure table. The right percutaneous nephrostomy site was prepped with chlorhexidine gluconate and dr sanchez in sterile fashion. A supervisor pit and auxiliaries radiograph was performed showing the cat heter [...] applied. The patient was transferred to the [facility] and discharged from the department in stable condition. Complications: Mild hematuria. Findings: As above. Impression: Success ful fluoroscopic guided 12 [place] right nephrostomy catheter exchange as descr ibed [...] Interpretation Comments Bedside Glucose (test code = 21841-0) 159 70-120 Meter ID: [id number] [facility] CampusFluoroscopic procedure less than one hour gxzfutqc6543-51-65 11:55:00* Test Item Value Reference Range Interpretation Comments Coronavirus (PCR) (test code = Coronavirus (PCR)) NOT DETECTED NOTD ETECTED CLEAR Aptima SARS-CoV-2 assay is a nucleic amplification test intended for the qualitative detection of RNA from SARS-CoV-2 from nasopharyngeal (TUBE WASHER) specimens. It is used under Emergency Use [...] reprat testing oc clinically indicated.Tesing performed by:[facility] [address] [place] [id number], Jong Felix MD, PhD [facility] HospitalCapillary blood glucose measurement by glucometer (mass/volume)2019-07-08 20:13:00* Test Item Value Reference Range Interpretation Comments Bedside Glucose (test code = 10194-0) 124 70-120 Meter ID: [id number] Scott & White McLane Children's Medical CenterBlood leukocytes automated count (number/volume)2019-07-08 04:50:00* Test Item Value Reference Range Interpretation Comments White Blood Count (test code = 6690-2) 9.74 4.8-10.8 [facility] HospitalB[facility]ent[facility] health erythrocytes automated count (number/volume)2019-07-08 04:50:00* Test Item Value Reference Range Interpretation Comments Red Blood Count (test code = 789-8) 3.97 3.6-5.1 [facility] hemoglobin measurement (moles/volume)2019-07-08 04:50:00* Test Item Value Reference Range Interpretation Comments Hemoglobin (test code = 62177-4) 9.9 12.0-16.0 [facility] HospitalAutomated blood hematocrit (volume fraction)2019-07-08 04:50:00* Test Item Value Reference Range Interpretation Comments Hematocrit (test code = 4544-3) 32.5 34.2-44.1 [facility] HospitalAutomated erythrocyte mean corpuscular sgmvzi6166-94-69 04:50:00* Test Item Value Reference Range Interpretation Comments Mean Corpuscular Volume (test code = 787-2) 81.9 81-99 [facility]Automated erythrocyte mean corpuscular hemoglobin (mass per erythrocyte)2019-07-08 04:50:00* Test Item Value Reference Range Interpretation Comments Mean Corpuscular Hemoglobin (test code = 785-6) 24.9 28-32 [facility] HospitalAutomated erythrocyte mean corpuscular hemoglobin concentration measurement (mass/volume)2019-07-08 04:50:00* Test Item Value Reference Range Interpretation Comments Mean Corpuscular Hemoglobin Concent (test code = 786-4) 30.5 31-35 [facility] HospitalRDW KkbSf-Xka0789-25-29 04:50:00* Test Item Value Reference Range Interpretation Comments Red Cell Distribution Width (test code = 28983-2) 15.0 11.7 -14.4 [facility] HospitalAutomated blood platelet count (count/volume)2019-07-08 04:50:00* Test Item Value Reference Range Interpretation Comments Platelet Count (test code = 777-3) 268 140-360 [facility] neutrophil count as percentage of total rlljfvypme4279-04-89 04:50:00* Test Item Value Reference Range Interpretation Comments Neutrophils (%) (Auto) (test code = 37387-9) 59.5 38.7-80.0 [facility] HospitalAutomated blood lymphocyte count as percentage ot total eveylmtmma3285-64-05 04:50:00* Test Item Value Reference Range Interpretation Comments Lymphocytes (%) (Auto) (test code = 736-9) 29.9 18.0-39.1 [facility] HospitalAutomated blood monocyte count as percentage of total ghhzyvfytd2418-58-58 04:50:00* Test Item Value Reference Range Interpretation Comments Monocytes (%) (Auto) (test code = 5905-5) 7.0 4.4-11.3 [facility] HospitalAutat[facility] health waxhawed blood eosinophil count as percentage of total wwzlhiztgp3957-37-04 04:50:00* Test Item Value Reference Range Interpretation Comments Eosinophils (%) (Auto) (test code = 713-8) 2.6 0.0-6.0 [facility] HospitalAutomated blood basophil count as percentage of total wlhxgjsbmw4268-60-58 04:50:00* Test Item Value Reference Range Interpretation Comments Basophils (%) (Auto) (test code = 706-2) 0.6 0.0-1.0 [facility] HospitalFluoroscopic procedure less than one hour ibzzewzk1494-34-14 04:50:00* Test Item Value Reference Range Interpretation Comments IM GRANULOCYTES % (test code = IM GRANULOCYTES %) 0.4 0.0- 1.0 [facility]Automated blood neutrophil count 2019-07-08 04:50:00* Test Item Value Reference Range Interpretation Comments Neutrophils # (Auto) (test code = 751-8) 5.8 2.1-6.9 [facility] HospitalBlood lymphocytes count (number/volume) 2019-07-08 04:50:00* Test Item Value Reference Range Interpretation Comments Lymphocytes # (Auto) (test code = 79656-1) 2.9 1.0-3.2 [facility] monocytes automated count (number/volume)2019-07-08 04:50:00* Test Item Value Reference Range Interpretation Comments Monocytes # (Auto) (test code = 742-7) 0.7 0.2-0.8 [facility] HospitalAutomated blood eosinophil count 2019-07-08 04:50:00* Test Item Value Reference Range Interpretation Comments Eosinophils # (Auto) (test code = 711-2) 0.3 0.0-0.4 [facility] HospitalAutomated blood basophil count (count/volume)2019-07-08 04:50:00* Test Item Value Reference Range Interpretation Comments Basophils # (Auto) (test code = 704-7) 0.1 0.0-0.1 [facility] HospitalFluoroscopic procedure less than one hour mjdvonxm4528-12-93 04:50:00* Test Item Value Reference Range Interpretation Comments Absolute Immature Granulocyte (auto (irena t code = Absolute Immature Granulocyte (auto) 0.04 0-0.1 [facility] plasma sodium measurement (moles/volume)2019-07-08 04:50:00* Test Item Value Reference Range Interpretation Comments Sodium Level (test code = 2951-2) 139 136-145 [facility]resserum or plasma potassium measurement (moles/volume)2019-07-08 04:50:00* Test Item Value Reference Range Interpretation Comments Potassium Level (test code = 2823-3) 3.7 3.5-5.1 [facility]resserum or plasma chloride measurement (moles/volume)2019-07-08 04:50:00* Test Item Value Reference Range Interpretation Comments Chloride Level (test code = 2075-0) 109 98-107 [facility]resserum or plasma carbon dioxide, total measurement (moles/volume)2019-07-08 04:50:00* Test Item Value Reference Range Interpretation Comments Carbon Dioxide Level (test code = 2028-9) 21 -29 [facility]resserum or plasma anion gks6093-72-67 04:50:00* Test Item Value Reference Range Interpretation Comments Anion Gap (test code = 88152-3) 12.7 8-16 [facility]resserum or plasma urea nitrogen measurement (mass/volume)2019-07-08 04:50:00* Test Item Value Reference Range Interpretation Comments Blood Urea Nitrogen (test code = 3094-0) 16 - [facility]resserum or plasma creatinine measurement (mass/volume)2019-07-08 04:50:00* Test Item Value Reference Range Interpretation Comments Creatinine (test code = 2160-0) 1.31 0.57-1.11 [facility]resserum or plasma urea nitrogen/creatinine mass nwszc5106-36-37 04:50:00* Test Item Value Reference Range Interpretation Comments BUN/Creatinine Ratio (test code = 3097-3) 12 6- [facility] HospitalEstimated glomerular filtration rate (GFR) tjaleakafnqim8015-89-29 04:50:00* Test Item Value Reference Range Interpretation Comments Estimat Glomerular Filtration Rate (test code = 669069745) 42 >60 Ranges were taken from the National Kidney Disease Education Program and the [facility] literature.Reference ranges:60 or greater: Ygrmiy07-03 ( for 3 consecutive months): Chronic kidney disease 15 or less: Kidney failureMethodist McKinney HospitalGlucose vdjhzfkicls3206-04-01 04:50:00* Test Item Value Reference Range Interpretation Comments Glucose Level (test code = OJE4269) 110 74-118 [facility]resserum or plasma calcium measurement (mass/volume)2019-07-08 04:50:00* Test Item Value Reference Range Interpretation Comments Calcium Level (test code = 42868-5) 9.1 8.4-10.2 [facility]resserum or plasma total bilirubin measurement (mass/volume)2019-07-05 04:45:00* Test Item Value Reference Range Interpretation Comments Total Bilirubin (test code = 1975-2) 0.3 0.2-1.2 [facility] HospitalFluoroscopic procedure less than one hour pasbkhvo6740-22-03 04:45:00* Test Item Value Reference Range Interpretation Comments Aspartate Amino Transf (AST/SGOT) (test code = Aspartate Amino Transf (AST/SGOT)) 19 5-34 [facility]resserum or plasma alanine aminotransferase measurement (enzymatic activity/volume)2019-07-05 04:45:00* Test Item Value Reference Range Interpretation Comments Alanine Aminotransferase (ALT/SGPT) (test code = 1742-6) 19 0-55 [facility]resserum or plasma protein measurement (mass/volume)2019-07-05 04:45:00* Test Item Value Reference Range Interpretation Comments Total Protein (test code = 2885-2) 8.5 6.5-8.1 [facility]resserum or plasma albumin measurement (mass/volume)2019-07-05 04:45:00* Test Item Value Reference Range Interpretation Comments Albumin (test code = 1751-7) 3.6 3.5-5.0 [facility] HospitalPlasma globulin measurement (mass/volume) 2019-07-05 04:45:00* Test Item Value Reference Range Interpretation Comments Globulin (test code = 12521-2) 4.9 2.3-3.5 [facility]resserum or plasma albumin/globulin mass unhti8916-15-30 04:45:00* Test Item Value Reference Range Interpretation Comments Albumin/Globulin Ratio (test code = 1759-0) 0.7 0.8-2.0 [facility]resserum or plasma alkaline phosphatase measurement (enzymatic activity/volume)2019-07-05 04:45:00* Test Item Value Reference Range Interpretation Comments Alkaline Phosphatase (test code = 6768-6) 120 40-150 [facility] HospitalFluoroscopic procedure less than one hour imzhtbxv3967-89-34 22:35:00* Test Item Value Reference Range Interpretation [...] complexity tests.Testing performed by Clinical Pathology Labor [address] [place], [place] [phone] Director: Leonard Chan M.D.CLIA # [id number] [facility] Fluoroscopic procedure less than one hour fnokqneb9477-09-06 20:35:00* Test Item Value Reference Range Interpretation Comments Lactic Acid Level (test code = Lactic Acid Level) 1.8 0.5- 2.0 [facility] HospitalFluoroscopic procedure less than one hour dbqkwdpi5604-75-88 20:35:00* Test Item Value Reference Range Interpretation Comments Lactic Acid Level (test code = Lactic Acid Level) 1.8 0.5- 2.0 [facility] HospitalUrine color zcwrlwhyjvosv5986-79-21 20:30:00* Test Item Value Reference Range Interpretation Comments Urine Color (test code = 5778-6) OTHER YELLOW PINKMethodist McKinney HospitalUrine esljvou0721-68-46 20:30:00* Test Item Value Reference Range Interpretation Comments Urine Clarity (test code = 38337-9) CLOUDY CLEAR [facility] Cypresspecific gravity of Urine by Test strip 2019-07-04 20:30:00* Test Item Value Reference Range Interpretation Comments Urine Specific [place] (test code = 5811-5) 1.025 1.010-1.02 5 [facility] HospitalUrine pH measurement by automated test bzxfc1089-35-26 20:30:00* Test Item Value Reference Range Interpretation Comments Urine pH (test code = 59751-5) 8.5 5-7 [facility] HospitalUrine leukocyte esterase detection by qijcqvlf8116-68-70 20:30:00* Test Item Value Reference Range Interpretation Comments Urine Leukocyte Esterase (test code = 5799-2) LARGE NEGATIVE [facility] HospitalUrine nitrite doiqkeame0896-78-85 20:30:00* Test Item Value Reference Range Interpretation Comments Urine Nitrite (test code = 41208-8) NEGATIVE NEGATIVE [facility] HospitalUrine protein measurement by test strip (mass/volume)2019-07-04 20:30:00* Test Item Value Reference Range Interpretation Comments Urine Protein (test code = 5804-0) >=300 NEGATIVE [facility] HospitalUrine glucose fwuvxnmxv1927-70-19 20:30:00* Test Item Value Reference Range Interpretation Comments Urine Glucose (UA) (test code = 2349-9) NEGATIVE NEGATIVE [facility] HospitalUrine ketones detection by automated test kxvju2443-50-93 20:30:00* Test Item Value Reference Range Interpretation Comments Urine Ketones (test code = 95024-4) NEGATIVE NEGATIVE [facility] HospitalUrine urobilinogen measurement by test strip (mass/volume)2019-07-04 20:30:00* Test Item Value Reference Range Interpretation Comments Urine Urobilinogen (test code = 68350-6) 0.2 0.2-1 [facility] HospitalUrine total bilirubin measurement (mass/volume)2019-07-04 20:30:00* Test Item Value Reference Range Interpretation Comments Urine Bilirubin (test code = 1978-6) NEGATIVE NEGATIVE [facility] HospitalUrine erythrocytes eydcbpzae1297-88-68 20:30:00* Test Item Value Reference Range Interpretation Comments Urine Blood (test code = 43026-3) LARGE NEGATIVE [facility] HospitalAutomated urine sediment leukocyte count by microscopy (number/high power field)2019-07-04 20:30:00* Test Item Value Reference Range Interpretation Comments Urine WBC (test code = 5821-4) 11-20 0-5 [facility] HospitalErythrocytes detection in urine sediment by light mlhxvcpdiy6524-45-37 20:30:00* Test Item Value Reference Range Interpretation Comments Urine RBC (test code = 51854-2) 11-20 0-5 [facility] HospitalBacteria detection in urine sediment by light cylrltirex2737-09-67 20:30:00* Test Item Value Reference Range Interpretation Comments Urine Bacteria (test code = 11669-0) MANY NONE [facility] HospitalEpithelial cells detection in urine sediment by light yymcptbnkd9655-23-05 20:30:00* Test Item Value Reference Range Interpretation Comments Urine Epithelial Cells (test code = 25517-1) NONE NONE [facility] HospitalBlood awihfxp7890-57-88 20:30:00* Test Item Value Reference Range Interpretation Comments Blood Culture (test code = 45879007) NO GROWTH AFTER 72 HOURS [facility] HospitalBacterial urine frrzcen4242-89-78 20:30:00* Test Item Value Reference Range Interpretation Comments Urine Culture (test code = 630-4) VALERIO ALBICANS [facility] HospitalBacterial urine cnrxosv8043-57-68 20:30:00* Test Item Value Reference Range Interpretation Comments Urine Culture (test code = 630-4) PSEUDO FLUORESCENS/PUTIDA [facility] HospitalBlood iijehca2484-45-12 20:30:00* Test Item Value Reference Range Interpretation Comments Blood Culture (test code = 08716775) NO GROWTH AFTER 5 DAYS, FINAL REPORT [facility] HospitalBacteria urine ojojtad9877-35-65 20:30:00* Test Item Value Reference Range Interpretation Comments Urine Culture (test code = 630-4) VALERIO ALBICANS [facility] HospitalBacteria urine uyebalc2871-96-48 20:30:00* Test Item Value Reference Range Interpretation Comments Urine Culture (test code = 630-4) PSEUDO FLUORESCENS/PUTIDA [facility] HospitalProthrombin time (PT) in platelet poor plasma by coagulation aqpcn4130-30-00 20:15:00* Test Item Value Reference Range Interpretation Comments Prothrombin Time (test code = 5902-2) 12.7 11.9-14.5 [facility] HospitalINR in Platelet poor plasma by Coagulation rxhlw6646-19-33 20:15:00* Test Item Value Reference Range Interpretation Comments Prothromb Time International Ratio (test code = 6301-6) 0.90 Oral Anticoagulant Therapy INR Values:1. Low Intensity Therapy 1.5 - 2.02 . Moderate Intensity Therapy 2.0 - 3.03. High Intensity Therapy(1) 2.5 - 3. 54. High Intensity Therapy(2) 3.0 - 4.05. Panic Value INR > 5.0 [facility] HospitalActivated partial thromboplastin time (aPTT) in platelet poor plasma by coagulation ljagw3197-15-08 20:15:00* Test Item Value Reference Range Interpretation Comments Activated Partial Thromboplast Time (test code = 09251-2) 28.6 23.8-35.5 [facility] leukocytes automated count (number/volume)2019-06-11 04:45:00* Test Item Value Reference Range Interpretation Comments White Blood Count (test code = 6690-2) 10.45 4.8-10.8 [facility] erythrocytes automated count (number/volume)2019-06-11 04:45:00* Test Item Value Reference Range Interpretation Comments Red Blood Count (test code = 789-8) 3.91 3.6-5.1 [facility] HospitalBlood hemoglobin measurement (moles/volume)2019-06-11 04:45:00* Test Item Value Reference Range Interpretation Comments Hemoglobin (test code = 95194-0) 10.0 12.0-16.0 [facility] HospitalAutomated blood hematocrit (volume fraction)2019-06-11 04:45:00* Test Item Value Reference Range Interpretation Comments Hematocrit (test code = 4544-3) 32.4 34.2-44.1 [facility] HospitalAutomated erythrocyte mean corpuscular kmdpxq2957-79-69 04:45:00* Test Item Value Reference Range Interpretation Comments Mean Corpuscular Volume (test code = 787-2) 82.9 81-99 [facility] HospitalAutomated erythrocyte mean corpuscular hemoglobin (mass per erythrocyte)2019-06-11 04:45:00* Test Item Value Reference Range Interpretation Comments Mean Corpuscular Hemoglobin (test code = 785-6) 25.6 28-32 [facility] HospitalAutomated erythrocyte mean corpuscular hemoglobin concentration measurement (mass/volume)2019-06-11 04:45:00* Test Item Value Reference Range Interpretation Comments Mean Corpuscular Hemoglobin Concent (test code = 786-4) 30.9 31-35 [facility] HospitalRDW PznNs-Yem3138-41-02 04:45:00* Test Item Value Reference Range Interpretation Comments Red Cell Distribution Width (test code = 41128-4) 14.7 11.7 -14.4 [facility] HospitalAutomated blood platelet count (count/volume)2019-06-11 04:45:00* Test Item Value Reference Range Interpretation Comments Platelet Count (test code = 777-3) 272 140-360 [facility] HospitalAutomated blood segmented neutrophil count as percentage of total tciocausic2146-87-95 04:45:00* Test Item Value Reference Range Interpretation Comments Neutrophils (%) (Auto) (test code = 30170-5) 54.2 38.7-80.0 [facility] HospitalAutomated blood lymphocyte count as percentage ot total jlocmoydmx6742-19-40 04:45:00* Test Item Value Reference Range Interpretation Comments Lymphocytes (%) (Auto) (test code = 736-9) 35.0 18.0-39.1 [facility] HospitalAutomated blood monocyte count as percentage of total jgjrejeorh0045-25-85 04:45:00* Test Item Value Reference Range Interpretation Comments Monocytes (%) (Auto) (test code = 5905-5) 7.1 4.4-11.3 [facility] HospitalAutat[facility] blood eosinophil count as percentage of total fvgqduztvp1487-31-30 04:45:00* Test Item Value Reference Range Interpretation Comments Eosinophils (%) (Auto) (test code = 713-8) 2.5 0.0-6.0 [facility] HospitalAutomated blood basophil count as percentage of total pwpuhquqgr7902-36-31 04:45:00* Test Item Value Reference Range Interpretation Comments Basophils (%) (Auto) (test code = 706-2) 0.4 0.0-1.0 [facility] HospitalFluoroscopic procedure less than one hour fdjrkcfm2524-91-49 04:45:00* Test Item Value Reference Range Interpretation Comments IM GRANULOCYTES % (test code = IM GRANULOCYTES %) 0.8 0.0- 1.0 [facility] HospitalAutomated blood neutrophil count 2019-06-11 04:45:00* Test Item Value Reference Range Interpretation Comments Neutrophils # (Auto) (test code = 751-8) 5.7 2.1-6.9 [facility] HospitalBlood lymphocytes count (number/volume) 2019-06-11 04:45:00* Test Item Value Reference Range Interpretation Comments Lymphocytes # (Auto) (test code = 93919-1) 3.7 1.0-3.2 [facility] HospitalBlood monocytes automated count (number/volume)2019-06-11 04:45:00* Test Item Value Reference Range Interpretation Comments Monocytes # (Auto) (test code = 742-7) 0.7 0.2-0.8 [facility] HospitalAutomated blood eosinophil count 2019-06-11 04:45:00* Test Item Value Reference Range Interpretation Comments Eosinophils # (Auto) (test code = 711-2) 0.3 0.0-0.4 [facility] HospitalAutomated blood basophil count (count/volume)2019-06-11 04:45:00* Test Item Value Reference Range Interpretation Comments Basophils # (Auto) (test code = 704-7) 0.0 0.0-0.1 [facility] HospitalFluoroscopic procedure less than one hour mmrljqqo7379-41-88 04:45:00* Test Item Value Reference Range Interpretation Comments Absolute Immature Granulocyte (auto (irena t code = Absolute Immature Granulocyte (auto) 0.08 0-0.1 [facility] HospitalCapillary blood glucose measurement by glucometer (mass/volume)2019-06-10 19:25:00* Test Item Value Reference Range Interpretation Comments Bedside Glucose (test code = 64618-9) 187 70-120 Meter ID: [id number] [facility] Cypresserum or plasma sodium measurement (moles/volume)2019-06-10 05:20:00* Test Item Value Reference Range Interpretation Comments Sodium Level (test code = 2951-2) 138 136-145 [facility]resserum or plasma potassium measurement (moles/volume)2019-06-10 05:20:00* Test Item Value Reference Range Interpretation Comments Potassium Level (test code = 2823-3) 3.6 3.5-5.1 [facility]resserum or plasma chloride measurement (moles/volume)2019-06-10 05:20:00* Test Item Value Reference Range Interpretation Comments Chloride Level (test code = 2075-0) 109 98-107 [facility]resserum or plasma carbon dioxide, total measurement (moles/volume)2019-06-10 05:20:00* Test Item Value Reference Range Interpretation Comments Carbon Dioxide Level (test code = 2028-9) 23 22-29 [facility]resserum or plasma anion dcb6329-87-13 05:20:00* Test Item Value Reference Range Interpretation Comments Anion Gap (test code = 71591-3) 9.6 8-16 [facility]resserum or plasma urea nitrogen measurement (mass/volume)2019-06-10 05:20:00* Test Item Value Reference Range Interpretation Comments Blood Urea Nitrogen (test code = 3094-0) 19 7-26 [facility]resserum or plasma creatinine measurement (mass/volume)2019-06-10 05:20:00* Test Item Value Reference Range Interpretation Comments Creatinine (test code = 2160-0) 1.27 0.57-1.11 [facility]resserum or plasma urea nitrogen/creatinine mass phvdw1651-91-59 05:20:00* Test Item Value Reference Range Interpretation Comments BUN/Creatinine Ratio (test code = 3097-3) 15 6-25 [facility] HospitalEstimated glomerular filtration rate (GFR) owmwljgxnoxus2814-52-26 05:20:00* Test Item Value Reference Range Interpretation Comments Estimat Glomerular Filtration Rate (test code = 822618993) 44 >60 Ranges were taken from the National Kidney Disease Education Program and the [facility] literature.Reference ranges:60 or greater: Ykoghe57-67 ( for 3 consecutive months): Chronic kidney disease 15 or less: Kidney failureMethodist McKinney HospitalGlucose bdllaxlljor6904-55-53 05:20:00* Test Item Value Reference Range Interpretation Comments Glucose Level (test code = BED8793) 163 74-118 [facility]ress[facility] or plasma calcium measurement (mass/volume)2019-06-10 05:20:00* Test Item Value Reference Range Interpretation Comments Calcium Level (test code = 23027-8) 8.6 8.4-10.2 [facility] HospitalRETROGRADE JVTAIKULK1114-68-18 14:31:00 [facility] [address] [place] [address] Patient Name: WESLY HUTCHINSON MR #: [id number] : 1960 Age/Sex: 58/F Req #: [id number] [facility] Physician: FIGUEROA CARD MD Ordered by: JARET ESPINOSA MD Report #: [id number] Location: MED/SURG Room/Bed: [facility] Procedure: [id number] DX/RETROGRAD E PYELOGRAM Exam Date: 06/09/19 Exam Time: 07 REPORT STATUS: Signed OR Fluoroscopy: IMPRESSION: Fluoroscopy service provided in the OR. Interpretation not requested. Signed by: Gutierrez Lora MD on 06/09/2019 2:31 PM Dictate d By: GUTIERREZ LORA MD 1431 COPY TO: JARET ESPINOSA MD Bacterial urine svwgsiw8432-75-33 07:40:00* Test Item Value Reference Range Interpretation Comments Urine Culture (test code = 630-4) VALERIO ALBICANS [facility] HospitalPhosphorus nbsriwtxxcs9720-49-18 05:05:00 * Test Item Value Reference Range Interpretation Comments Phosphorus Level (test code = VPG3194) 2.7 2.3-4.7 [facility]ress[facility]um or plasma magnesium measurement (mass/volume)2019-06-09 05:05:00* Test Item Value Reference Range Interpretation Comments Magnesium Level (test code = 83263-2) 1.9 1.3-2.1 [facility] HospitalPhosphorus cdhktfkpfrp7898-44-75 05:05:00 * Test Item Value Reference Range Interpretation Comments Phosphorus Level (test code = JZG9517) 2.7 2.3-4.7 [facility]ress[facility]um or plasma magnesium measurement (mass/volume)2019-06-09 05:05:00* Test Item Value Reference Range Interpretation Comments Magnesium Level (test code = 91211-8) 1.9 1.3-2.1 [facility] HospitalPhosphorus aqvtqqscehf3544-45-66 05:05:00 * Test Item Value Reference Range Interpretation Comments Phosphorus Level (test code = TAV2464) 2.7 2.3-4.7 [facility]erum or plasma magnesium measurement (mass/volume)2019-06-09 05:05:00* Test Item Value Reference Range Interpretation Comments Magnesium Level (test code = 10027-0) 1.9 1.3-2.1 [facility] HospitalFluoroscopic procedure less than one hour nimnagio9222-03-39 09:50:00* Test Item Value Reference Range Interpretation [...] to perform high complexity tests.Specimen sent to [facility] and testing performed by Clinical Pathology [address] [place] [address] [phone] Director: Leonard Chan M.D.CLIA # 4 [id number] [facility]PH[facility] IM[facility]/INJ-EXISTING 2019-06-07 15:57:00 [place] [address] Patient Name: WESLY HUTCHINSON MR #: [id number] : 1960 Age/Sex: 58/F Req #: [id number] Adm Physician: FIGUEROA CARD MD Ordered by: JARET ESPINOSA MD Report #: [id number] Location: MED/SURG Room/Bed: 101-1 Procedure: [id number] IR/NEPHRO/UR ET W IMG/INJ-EXISTING Exam Date: Exam [...] r): 27.4 mGy. Approach: The indwelling 10 [place] African neph rostomy catheter Estimated blood loss: < 5 cc. Specimen: None. chinchilla machine operator: Leon Lo MD. It Assistant: None. Technique/findings: Informed written consent was obtained. [...] given occluded end hole. Subsequent, a 5 [place] African Kumpe catheter and 0.035 angled Glidewire was used to obtain access into the right collecting system along side the indwelling nephrostomy cathete r. The Glidewire was exchanged for a 0.035 Bentson wire. The indwelling nephro stomy catheter was removed. A new 12 [place] African and a prosthetic catheter was adva nced [...] 06/07/191602 COPY TO: JARET ESPINOSA MD IR OSLQFUL7696-44-53 15:57:00 [place] [address] Patient Name: WESLY HUTCHINSON MR #: [id number] : 1960 Age/Sex: 58/F Req #: [id number] Adm Physician: FIGUEROA CARD MD Ordered by: JARET ESPINOSA MD Report #: [id number] Location: MED/SURG Room/Bed: [facility] Procedure: [id number] DX/IR CONSUL T Exam Date: Exam Time: [...] r): 27.4 mGy. Approach: The indwelling 10 [place] African nephrostomy catheter Estimated blood loss: < 5 cc. Specimen: None. chinchilla machine operator: Leon Lo MD. It Assistant: None. Technique/findings: Informed written consent was obtained. [...] given occluded end hole. Subsequent, a 5 [place] African Kumpe catheter and 0.035 angled Glidewire was used to obtain access into the right collecting system along side the indwelling nephrostomy catheter. The Glidewire was exchanged for a 0.035 Bentson wire. The indwelling nephrostomy catheter was removed. A new 12 [place] African and a prosthetic catheter was advanced with [...] Signed By: LEON LO MD on 06/07/19 1603 Transcribed By: DEYANIRA on 06/07/19 160 COPY TO: JARET ESPINOSA MD Fluoroscopic procedure less than one hour gasktves2757-60-07 04:40:00* Test Item Value Reference Range Interpretation Comments Hemoglobin A1c Percent (test code = Hemoglobin A1c Percent) 6.9 4.0-7.0 [facility]Fluor[facility] procedure less than one hour gucrtzzt5650-45-45 04:40:00* Test Item Value Reference Range Interpretation Comments Hemoglobin A1c Percent (test code = Hemoglobin A1c Percent) 6.9 4.0-7.0 [facility] HospitalFluoroscopic procedure less than one hour udvrovbs3314-85-21 04:40:00* Test Item Value Reference Range Interpretation Comments Hemoglobin A1c Percent (test code = Hemoglobin A1c Percent) 6.9 4.0-7.0 [facility] or plasma total bilirubin measurement (mass/volume)2019-06-05 05:10:00* Test Item Value Reference Range Interpretation Comments Total Bilirubin (test code = 1975-2) 0.2 0.2-1.2 [facility] HospitalFluoroscopic procedure less than one hour filobbxw9501-40-18 05:10:00* Test Item Value Reference Range Interpretation Comments Aspartate Amino Transf (AST/SGOT) (test code = Aspartate Amino Transf (AST/SGOT)) 9 5-34 [facility]resserum or plasma alanine aminotransferase measurement (enzymatic activity/volume)2019-06-05 05:10:00* Test Item Value Reference Range Interpretation Comments Alanine Aminotransferase (ALT/SGPT) (test code = 1742-6) 12 0-55 [facility]resserum or plasma protein measurement (mass/volume)2019-06-05 05:10:00* Test Item Value Reference Range Interpretation Comments Total Protein (test code = 2885-2) 7.3 6.5-8.1 [facility]resserum or plasma albumin measurement (mass/volume)2019-06-05 05:10:00* Test Item Value Reference Range Interpretation Comments Albumin (test code = 1751-7) 2.8 3.5-5.0 [facility] HospitalPlasma globulin measurement (mass/volume) 2019-06-05 05:10:00* Test Item Value Reference Range Interpretation Comments Globulin (test code = 43635-3) 4.5 2.3-3.5 [facility]resserum or plasma albumin/globulin mass stxgs4158-52-56 05:10:00* Test Item Value Reference Range Interpretation Comments Albumin/Globulin Ratio (test code = 1759-0) 0.6 0.8-2.0 [facility]resserum or plasma alkaline phosphatase measurement (enzymatic activity/volume)2019-06-05 05:10:00* Test Item Value Reference Range Interpretation Comments Alkaline Phosphatase (test code = 6768-6) 90 40-150 [facility] HospitalCT ABDOMEN/PELVIS VN1710-15-09 17:22:00 [facility] [address] [place] [address] Patient Name: WESLY HUTCHINSON MR #: [id number] : Age/Sex: 58/F Req #: [id number] Adm Physician: FIGUEROA ACRD MD Ordered by: FIGUEROA CARD MD Report #: [id number] Location: MED/SURG Room/Bed: [facility] Procedure: [id number] C T/CT ABDOMEN/PELVIS WO Exam Date: 06/04/19 [...] COPY TO: FIGUEROA CARD MD CT BRAIN [id number] 15:26:00 [place] [address] Patient Name: WESLY HUTCHINSON MR #: [id number] : 1960 Age/Sex: 58/F Req #: [id number] Adm Physician: FIGUEROA CARD MD Ordered by: LIZ MUÑIZ MD Report #: [id number] Location: MED/SURG Room/Bed: [facility] Procedure: [id number]/CT BRAIN WO Exam [...] 06/04/2019 3:31 PM Dictated By: JEANNETTE Flowers 30 Trans cribed By: DEYANIRA on 06/04/191 COPY TO: LIZ MUÑIZ MD CHEST SINGLE (PORTABLE)2019-06-04 15:17:00 [place] [address] Patient Name: WESLY HUTCHINSON MR #: [id number] : 1960 Age/Sex: 58/F Req #: [id number] [facility] Physician: FIGUEROA CARD MD Ordered by: LIZ MUÑIZ MD Report #: [id number] Location: MED/SURG Room/Bed: [facility] Procedure: [id number] DX/CHEST SINGLE (PORTABLE) Exam Date: 06/04/19 Exa Time: 1430 REPORT STATUS: Signed EXAMINATION: CHEST SINGLE (PORTABLE) COMPARISON: Chest x-ray 12/19/19 18 INDICATION: Fever, pain, weakness LOW GRADE FEVER, SOMNOLENCE, LIKEL Y UTI [id number] DISCUSSION: Frontal view of the chest obtaine [...] 06/04/191518 COPY TO: LIZ MUÑIZ MD Blood zmvpugc9891-66-85 12:11:00* Test Item Value Reference Range Interpretation Comments Blood Culture (test code = 99300553) NO GROWTH AFTER 5 DAYS, FINAL REPORT [facility] HospitalProthrombin time (PT) in platelet poor plasma by coagulation iyriq0618-30-25 11:56:00* Test Item Value Reference Range Interpretation Comments Prothrombin Time (test code = 5902-2) 13.7 11.9-14.5 [facility] HospitalINR in Platelet poor plasma by Coagulation riusf9636-60-54 11:56:00* Test Item Value Reference Range Interpretation Comments Prothromb Time International Ratio (test code = 6301-6) 0.99 Oral Anticoagulant Therapy INR Values:1. Low Intensity Therapy 1.5 - 2.02 . Moderate Intensity Therapy 2.0 - 3.03. High Intensity Therapy(1) 2.5 - 3. 54. High Intensity Therapy(2) 3.0 - 4.05. Panic Value INR > 5.0 [facility] HospitalActivated partial thromboplastin time (aPTT) in platelet poor plasma by coagulation wdpxv1869-71-59 11:56:00* Test Item Value Reference Range Interpretation Comments Activated Partial Thromboplast Time (test code = 54043-5) 33.1 23.8-35.5 [facility]erum or plasma creatine kinase measurement (enzymatic activity/volume)2019-06-04 11:56:00* Test Item Value Reference Range Interpretation Comments Creatine Kinase (test code = 2157-6) 28 29-168 [facility]resserum or plasma creatine kinase MB measurement (mass/volume)2019-06-04 11:56:00* Test Item Value Reference Range Interpretation Comments Creatine Kinase MB (test code = 00227-3) 0.40 0-5.0 [facility] HospitalTroponin I measurement by highly sensitive enzyme seocbpvlyjl6583-86-07 11:56:00* Test Item Value Reference Range Interpretation Comments Troponin I (test code = 80541-9) < 0.001 0-0.300 [facility]resserum or plasma creatine kinase measurement (enzymatic activity/volume)2019-06-04 11:56:00* Test Item Value Reference Range Interpretation Comments Creatine Kinase (test code = 2157-6) 28 29-168 [facility]resserum or plasma creatine kinase MB measurement (mass/volume)2019-06-04 11:56:00* Test Item Value Reference Range Interpretation Comments Creatine Kinase MB (test code = 76933-3) 0.40 0-5.0 [facility] HospitalTroponin I measurement by highly sensitive enzyme cqkcpqfmvjo0508-42-08 11:56:00* Test Item Value Reference Range Interpretation Comments Troponin I (test code = 85501-2) < 0.001 0-0.300 [facility]resserum or plasma creatine kinase measurement (enzymatic activity/volume)2019-06-04 11:56:00* Test Item Value Reference Range Interpretation Comments Creatine Kinase (test code = 2157-6) 28 -168 [facility]resserum or plasma creatine kinase MB measurement (mass/volume)2019-06-04 11:56:00* Test Item Value Reference Range Interpretation Comments Creatine Kinase MB (test code = 08156-1) 0.40 0-5.0 [facility] HospitalTroponin I measurement by highly sensitive enzyme hdzegrliexr6611-15-61 11:56:00* Test Item Value Reference Range Interpretation Comments Troponin I (test code = 66243-6) < 0.001 0-0.300 [facility] HospitalUrine color avqxpgllorwkc4479-54-80 11:55:00* Test Item Value Reference Range Interpretation Comments Urine Color (test code = 5778-6) YELLOW YELLOW [facility] HospitalUrine rqsqzvh3837-41-86 11:55:00* Test Item Value Reference Range Interpretation Comments Urine Clarity (test code = 11293-1) HAZY CLEAR [facility] Cypresspecific gravity of Urine by Test strip 2019-06-04 11:55:00* Test Item Value Reference Range Interpretation Comments Urine Specific [place] (test code = 5811-5) 1.020 1.010-1.02 5 [facility] HospitalUrine pH measurement by automated test ktqgs8112-42-00 11:55:00* Test Item Value Reference Range Interpretation Comments Urine pH (test code = 72659-8) 8 5-7 [facility] HospitalUrine leukocyte esterase detection by uztktrvk4910-91-46 11:55:00* Test Item Value Reference Range Interpretation Comments Urine Leukocyte Esterase (test code = 5799-2) LARGE NEGATIVE [facility] HospitalUrine nitrite eezajuavu8718-13-26 11:55:00* Test Item Value Reference Range Interpretation Comments Urine Nitrite (test code = 04439-8) NEGATIVE NEGATIVE [facility] HospitalUrine protein measurement by test strip (mass/volume)2019-06-04 11:55:00* Test Item Value Reference Range Interpretation Comments Urine Protein (test code = 5804-0) >=300 NEGATIVE [facility] HospitalUrine glucose eudsaotgs9189-68-62 11:55:00* Test Item Value Reference Range Interpretation Comments Urine Glucose (UA) (test code = 2349-9) NEGATIVE NEGATIVE [facility] HospitalUrine ketones detection by automated test gncjo9370-07-78 11:55:00* Test Item Value Reference Range Interpretation Comments Urine Ketones (test code = 22114-8) NEGATIVE NEGATIVE [facility] HospitalUrine urobilinogen measurement by test strip (mass/volume)2019-06-04 11:55:00* Test Item Value Reference Range Interpretation Comments Urine Urobilinogen (test code = 13015-7) 0.2 0.2-1 [facility] HospitalUrine total bilirubin measurement (mass/volume)2019-06-04 11:55:00* Test Item Value Reference Range Interpretation Comments Urine Bilirubin (test code = 1978-6) NEGATIVE NEGATIVE [facility] HospitalUrine erythrocytes xogkrzeey5624-01-03 11:55:00* Test Item Value Reference Range Interpretation Comments Urine Blood (test code = 17645-1) 3+ NEGATIVE [facility] HospitalAutomated urine sediment leukocyte count by microscopy (number/high power field)2019-06-04 11:55:00* Test Item Value Reference Range Interpretation Comments Urine WBC (test code = 5821-4) >50 0-5 [facility] HospitalErythrocytes detection in urine sediment by light ezlvxorrfa2502-68-53 11:55:00* Test Item Value Reference Range Interpretation Comments Urine RBC (test code = 42228-0) >50 0-5 [facility] HospitalBacteria detection in urine sediment by light heglysducu5064-37-62 11:55:00* Test Item Value Reference Range Interpretation Comments Urine Bacteria (test code = 54675-4) MODERATE NONE [facility] HospitalEpithelial cells detection in urine sediment by light zantjwhxuj0962-13-30 11:55:00* Test Item Value Reference Range Interpretation Comments Urine Epithelial Cells (test code = 40786-9) FEW NONE [facility] HospitalCoarse granular casts detection in urine sediment by light ckdygmlnsj1450-37-56 11:55:00* Test Item Value Reference Range Interpretation Comments Urine Coarse Granular Casts (test code = 99993-0) 1-5 >0 [facility] HospitalMucus detection in urine sediment by light lphtbctvmb4669-29-32 11:55:00* Test Item Value Reference Range Interpretation Comments Urine Mucus (test code = 8247-9) MODERATE RARE [facility] HospitalCoarse granular casts detection in urine sediment by light rznlaibtrz5794-24-55 11:55:00* Test Item Value Reference Range Interpretation Comments Urine Coarse Granular Casts (test code = 84503-2) 1-5 >0 [facility] HospitalMucus detection in urine sediment by light jekydbjvdh1812-71-12 11:55:00* Test Item Value Reference Range Interpretation Comments Urine Mucus (test code = 8247-9) MODERATE RARE [facility] HospitalCoarse granular casts detection in urine sediment by light vojuxreqex0052-88-07 11:55:00* Test Item Value Reference Range Interpretation Comments Urine Coarse Granular Casts (test code = 50323-9) 1-5 >0 [facility] HospitalMucus detection in urine sediment by light saqnczwlzr3926-85-25 11:55:00* Test Item Value Reference Range Interpretation Comments Urine Mucus (test code = 8247-9) MODERATE RARE [facility] Cypressodium Symco7479-69-64 20:54:00* Test Item Value Reference Range Interpretation Comments Sodium Level (test code = 2951-2) 141 136-145 [facility] HospitalPotassium Ypcha0849-80-00 20:54:00* Test Item Value Reference Range Interpretation Comments Potassium Level (test code = 2823-3) 3.9 3.5-5.1 [facility] HospitalChloride Ntgja0585-63-48 20:54:00* Test Item Value Reference Range Interpretation Comments Chloride Level (test code = 2075-0) 105 98-107 [facility] HospitalCarbon Dioxide Fdjdb2892-28-40 20:54:00* Test Item Value Reference Range Interpretation Comments Carbon Dioxide Level (test code = 2028-9) 25 22-29 [facility] HospitalAnion Znh4937-69-86 20:54:00* Test Item Value Reference Range Interpretation Comments Anion Gap (test code = 36339-6) 14.9 8-16 [facility] HospitalBlood Urea Hlkzdggf6183-74-63 20:54:00* Test Item Value Reference Range Interpretation Comments Blood Urea Nitrogen (test code = 3094-0) 17 7-26 [facility] HospitalCreatinine2020-01-16 20:54:00* Test Item Value Reference Range Interpretation Comments Creatinine (test code = 2160-0) 0.99 0.57-1.11 [facility] HospitalBUN/Creatinine Kfnvm5089-61-05 20:54:00* Test Item Value Reference Range Interpretation Comments BUN/Creatinine Ratio (test code = 3097-3) 17 6-25 [facility] HospitalEstimat Glomerular Filtration Rate 2019-02-24 20:54:00* Test Item Value Reference Range Interpretation Comments Estimat Glomerular Filtration Rate (test code = 371046889) 58 >60 L Ranges were taken from the National Kidney Disease Education Program and the [facility] Kidney Foundation literature.Reference ranges:60 or greater: Gllxxp34-60 ( for 3 consecutive months): Chronic kidney disease 15 or less: Kidney failureMethodist McKinney HospitalGlucose Jpeov4281-37-06 20:54:00* Test Item Value Reference Range Interpretation Comments Glucose Level (test code = VKF6264) 117 74-118 [facility] HospitalCalcium Zspms3066-74-01 20:54:00* Test Item Value Reference Range Interpretation Comments Calcium Level (test code = 41417-1) 9.6 8.4-10.2 [facility] HospitalTotal Tbbskwihd0586-29-09 20:54:00* Test Item Value Reference Range Interpretation Comments Total Bilirubin (test code = 1975-2) 0.2 0.2-1.2 [facility] HospitalAspartate Amino Transf (AST/SGOT) 2019-02-24 20:54:00* Test Item Value Reference Range Interpretation Comments Aspartate Amino Transf (AST/SGOT) (test code = Aspartate Amino Transf (AST/SGOT)) 30 5-34 [facility] HospitalAlanine Aminotransferase (ALT/SGPT) 2019-02-24 20:54:00* Test Item Value Reference Range Interpretation Comments Alanine Aminotransferase (ALT/SGPT) (test code = 1742-6) 35 0-55 [facility] HospitalTotal Jspvuqi9224-69-18 20:54:00* Test Item Value Reference Range Interpretation Comments Total Protein (test code = 2885-2) 7.8 6.5-8.1 [facility] HospitalAlbumin2020-01-16 20:54:00* Test Item Value Reference Range Interpretation Comments Albumin (test code = 1751-7) 3.8 3.5-5.0 [facility] HospitalGlobulin2020-01-16 20:54:00* Test Item Value Reference Range Interpretation Comments Globulin (test code = 70711-3) 4.0 2.3-3.5 H [facility] HospitalAlbumin/Globulin Wxxvn5792-28-83 20:54:00 * Test Item Value Reference Range Interpretation Comments Albumin/Globulin Ratio (test code = 1759-0) 1.0 0.8-2.0 [facility] HospitalAlkaline Vsjlvnitozs9121-28-80 20:54:00* Test Item Value Reference Range Interpretation Comments Alkaline Phosphatase (test code = 6768-6) 134 40-150 [facility] HospitalABDOMEN-1VIEW (KUB)2019-02-24 19:48:00 [facility] [address] [place] [address] Patient Name: WESLY HUTCHINSON MR #: [id number] : Age/Sex: 58/F Req #: [id number] Adm Physician: Ordered by: ASHA BARDALES TUBE WASHER Report #: [id number] Location: ER Room/Bed: Procedure: 0116-0 074 DX/ABDOMEN-1VIEW [...] DEYANIRA on 02/24/191948 COPY TO: ASHA BARDALES TUBE WASHER Platelet Bzljdbiw2071-99-59 18:29:00* Test Item Value Reference Range Interpretation Comments Platelet Estimate (test code = 31786-4) SLIGHTLY DECREASED [facility] HospitalPlatelet Morphology Dslyluy7935-22-77 18:29:00* Test Item Value Reference Range Interpretation Comments Platelet Morphology Comment (test code = 01350-7) NORMAL [facility] HospitalHypochromasia2020-01-16 18:29:00* Test Item Value Reference Range Interpretation Comments Hypochromasia (test code = 728-6) MODERATE [facility] HospitalPoikilocytosis2020-01-16 18:29:00* Test Item Value Reference Range Interpretation Comments Poikilocytosis (test code = 779-9) MODERATE [facility] HospitalAnisocytosis2020-01-16 18:29:00* Test Item Value Reference Range Interpretation Comments Anisocytosis (test code = 702-1) SLIGHT [facility] HospitalRed Cell Morphology Xmjcebx7686-04-68 18:29:00* Test Item Value Reference Range Interpretation Comments Red Cell Morphology Comment (test code = 6742-1) NORMAL [facility] HospitalPlatelet Trugb3379-87-21 18:28:00* Test Item Value Reference Range Interpretation Comments Platelet Count (test code = 777-3) 114 140-360 L [facility] HospitalUrine OUQ8207-30-33 18:08:00* Test Item Value Reference Range Interpretation Comments Urine WBC (test code = 5821-4) 6-10 0-5 H [facility] HospitalUrine ORL8085-53-70 18:08:00* Test Item Value Reference Range Interpretation Comments Urine RBC (test code = 27942-1) >50 0-5 H [facility] HospitalUrine Ihhbltbf5246-89-28 18:08:00* Test Item Value Reference Range Interpretation Comments Urine Bacteria (test code = 39053-3) MODERATE NONE H [facility] HospitalUrine Epithelial Hoguc7432-28-66 18:08:00 * Test Item Value Reference Range Interpretation Comments Urine Epithelial Cells (test code = 22601-7) FEW NONE [facility] HospitalUrine Lyznl1684-60-46 18:08:00* Test Item Value Reference Range Interpretation Comments Urine Mucus (test code = 8247-9) MODERATE RARE H [facility] HospitalUrine Sjzsi5511-41-97 17:51:00* Test Item Value Reference Range Interpretation Comments Urine Color (test code = 5778-6) YELLOW YELLOW [facility] HospitalUrine Qzcewlo0180-33-43 17:51:00* Test Item Value Reference Range Interpretation Comments Urine Clarity (test code = 37530-7) CLEAR CLEAR [facility] HospitalUrine Specific Vghwlqe1517-89-54 17:51:00 * Test Item Value Reference Range Interpretation Comments Urine Specific [place] (test code = 5811-5) >=1.030 1.010-1.02 5 [facility] HospitalUrine wB6899-83-98 17:51:00* Test Item Value Reference Range Interpretation Comments Urine pH (test code = 63190-5) 6 5-7 [facility] Leukocyte Auydwlqh3477-03-60 17:51:00* Test Item Value Reference Range Interpretation Comments Urine Leukocyte Esterase (test code = 5799-2) SMALL NEGATIVE [facility] Znqlnda3489-66-52 17:51:00* Test Item Value Reference Range Interpretation Comments Urine Nitrite (test code = 27587-8) NEGATIVE NEGATIVE [facility] Xynxdzk1883-97-22 17:51:00* Test Item Value Reference Range Interpretation Comments Urine Protein (test code = 5804-0) 3+ NEGATIVE H [facility] Glucose (UA)2019-02-24 17:51:00* Test Item Value Reference Range Interpretation Comments Urine Glucose (UA) (test code = 2349-9) NEGATIVE NEGATIVE [facility] Guttumj0280-77-98 17:51:00* Test Item Value Reference Range Interpretation Comments Urine Ketones (test code = 50617-0) NEGATIVE NEGATIVE [facility] Zxgihjwybxaf4591-90-26 17:51:00* Test Item Value Reference Range Interpretation Comments Urine Urobilinogen (test code = 12106-9) 0.2 0.2-1 [facility] HospitalUrine Dyzhbjceh3639-24-13 17:51:00* Test Item Value Reference Range Interpretation Comments Urine Bilirubin (test code = 1978-6) NEGATIVE NEGATIVE [facility] HospitalUrine Psqsi2312-77-90 17:51:00* Test Item Value Reference Range Interpretation Comments Urine Blood (test code = 08339-3) 3+ NEGATIVE [facility] HospitalWhite Blood Zqoow8950-05-91 17:44:00* Test Item Value Reference Range Interpretation Comments White Blood Count (test code = 6690-2) 7.26 4.8-10.8 [facility] HospitalRed Blood Sdpgf5893-17-10 17:44:00* Test Item Value Reference Range Interpretation Comments Red Blood Count (test code = 789-8) 4.09 3.6-5.1 [facility] HospitalHemoglobin2020-01-16 17:44:00* Test Item Value Reference Range Interpretation Comments Hemoglobin (test code = 35915-5) 10.6 12.0-16.0 L [facility] HospitalHematocrit2020-01-16 17:44:00* Test Item Value Reference Range Interpretation Comments Hematocrit (test code = 4544-3) 33.1 34.2-44.1 L [facility] HospitalMean Corpuscular Rxqsur4842-23-07 17:44:00* Test Item Value Reference Range Interpretation Comments Mean Corpuscular Volume (test code = 787-2) 80.9 81-99 L [facility] HospitalMean Corpuscular Vuileuildt1869-63-50 17:44:00* Test Item Value Reference Range Interpretation Comments Mean Corpuscular Hemoglobin (test code = 785-6) 25.9 28-32 L [facility] HospitalMean Corpuscular Hemoglobin Concent 2019-02-24 17:44:00* Test Item Value Reference Range Interpretation Comments Mean Corpuscular Hemoglobin Concent (test code = 786-4) 32.0 31-35 [facility] HospitalRed Cell Distribution Dhovo1660-27-42 17:44:00* Test Item Value Reference Range Interpretation Comments Red Cell Distribution Width (test code = 31486-6) 15.4 11.7 -14.4 H [facility] HospitalNeutrophils (%) (Auto)2019-02-24 17:44:00 * Test Item Value Reference Range Interpretation Comments Neutrophils (%) (Auto) (test code = 58527-7) 51.4 38.7-80.0 [facility] HospitalLymphocytes (%) (Auto)2019-02-24 17:44:00 * Test Item Value Reference Range Interpretation Comments Lymphocytes (%) (Auto) (test code = 736-9) 38.0 18.0-39.1 [facility] HospitalMonocytes (%) (Auto)2019-02-24 17:44:00* Test Item Value Reference Range Interpretation Comments Monocytes (%) (Auto) (test code = 5905-5) 8.0 4.4-11.3 [facility] HospitalEosinophils (%) (Auto)2019-02-24 17:44:00 * Test Item Value Reference Range Interpretation Comments Eosinophils (%) (Auto) (test code = 713-8) 1.7 0.0-6.0 [facility]Basophils (%) (Auto)2019-02-24 17:44:00* Test Item Value Reference Range Interpretation Comments Basophils (%) (Auto) (test code = 706-2) 0.6 0.0-1.0 [facility] HospitalIM GRANULOCYTES %2019-02-24 17:44:00* Test Item Value Reference Range Interpretation Comments IM GRANULOCYTES % (test code = IM GRANULOCYTES %) 0.3 0.0- 1.0 [facility] HospitalNeutrophils # (Auto)2019-02-24 17:44:00* Test Item Value Reference Range Interpretation Comments Neutrophils # (Auto) (test code = 751-8) 3.7 2.1-6.9 [facility] HospitalLymphocytes # (Auto)2019-02-24 17:44:00* Test Item Value Reference Range Interpretation Comments Lymphocytes # (Auto) (test code = 66841-9) 2.8 1.0-3.2 [facility]Monocytes # (Auto)2019-02-24 17:44:00* Test Item Value Reference Range Interpretation Comments Monocytes # (Auto) (test code = 742-7) 0.6 0.2-0.8 [facility]Eosinophils # (Auto)2019-02-24 17:44:00* Test Item Value Reference Range Interpretation Comments Eosinophils # (Auto) (test code = 711-2) 0.1 0.0-0.4 [facility]Basophils # (Auto)2019-02-24 17:44:00* Test Item Value Reference Range Interpretation Comments Basophils # (Auto) (test code = 704-7) 0.0 0.0-0.1 [facility] HospitalAbsolute Immature Granulocyte (auto 2019-02-24 17:44:00* Test Item Value Reference Range Interpretation Comments Absolute Immature Granulocyte (auto (irena t code = Absolute Immature Granulocyte (auto) 0.02 0-0.1 [facility] HospitalBlood platelets count by estimate (number/volume)2019-02-24 16:28:00* Test Item Value Reference Range Interpretation Comments Platelet Estimate (test code = 34605-8) SLIGHTLY DECREASED [facility] HospitalPlatelet qwffikfwms1418-83-54 16:28:00* Test Item Value Reference Range Interpretation Comments Platelet Morphology Comment (test code = 84222-0) NORMAL [facility] hypochromia detection by light evrsrebpjc6133-63-91 16:28:00* Test Item Value Reference Range Interpretation Comments Hypochromasia (test code = 728-6) MODERATE [facility] poikilocytosis detection by light acbkcgmrxf2214-44-87 16:28:00* Test Item Value Reference Range Interpretation Comments Poikilocytosis (test code = 779-9) MODERATE [facility] anisocytosis detection by light ltivvuupyo1376-42-21 16:28:00* Test Item Value Reference Range Interpretation Comments Anisocytosis (test code = 702-1) SLIGHT [facility] HospitalRBC orurasxkgd0671-24-80 16:28:00* Test Item Value Reference Range Interpretation Comments Red Cell Morphology Comment (test code = 6742-1) NORMAL [facility] platelets count by estimate (number/volume)2019-02-24 16:28:00* Test Item Value Reference Range Interpretation Comments Platelet Estimate (test code = 61294-8) SLIGHTLY DECREASED [facility] HospitalPlatelet drjgluezao7470-41-40 16:28:00* Test Item Value Reference Range Interpretation Comments Platelet Morphology Comment (test code = 64984-6) NORMAL [facility] hypochromia detection by light xcemkwgktm6939-84-06 16:28:00* Test Item Value Reference Range Interpretation Comments Hypochromasia (test code = 728-6) MODERATE [facility] poikilocytosis detection by light kwtkypbznx4219-18-73 16:28:00* Test Item Value Reference Range Interpretation Comments Poikilocytosis (test code = 779-9) MODERATE [facility] anisocytosis detection by light vovhjcnrwq8513-26-32 16:28:00* Test Item Value Reference Range Interpretation Comments Anisocytosis (test code = 702-1) SLIGHT [facility] izihoyoqkb1819-25-00 16:28:00* Test Item Value Reference Range Interpretation Comments Red Cell Morphology Comment (test code = 6742-1) NORMAL [facility] platelets count by estimate (number/volume)2019-02-24 16:28:00* Test Item Value Reference Range Interpretation Comments Platelet Estimate (test code = 45821-7) SLIGHTLY DECREASED [facility]Pl[facility] nsoimqddvd8352-25-45 16:28:00* Test Item Value Reference Range Interpretation Comments Platelet Morphology Comment (test code = 67995-8) NORMAL [facility] hypochromia detection by light lpicibqdld9939-69-76 16:28:00* Test Item Value Reference Range Interpretation Comments Hypochromasia (test code = 728-6) MODERATE [facility] poikilocytosis detection by light gowoytxplt4244-44-36 16:28:00* Test Item Value Reference Range Interpretation Comments Poikilocytosis (test code = 779-9) MODERATE [facility] HospitalBlood anisocytosis detection by light qjsmttremo6066-90-50 16:28:00* Test Item Value Reference Range Interpretation Comments Anisocytosis (test code = 702-1) SLIGHT [facility] HospitalRB mijuvfjzdk5225-66-19 16:28:00* Test Item Value Reference Range Interpretation Comments Red Cell Morphology Comment (test code = 6742-1) NORMAL [facility] Jklcjbg2024-65-86 11:30:00* Test Item Value Reference Range Interpretation Comments Bedside Glucose (test code = 62263-3) 131 70-120 H Meter ID: [id number] Culture 2019-02-11 10:27:00* Test Item Value Reference Range Interpretation Comments Blood Culture (test code = 25382619) NO GROWTH AFTER 5 DAYS, FINAL REPORT [facility] Dvfmqmr9250-02-54 06:39:00* Test Item Value Reference Range Interpretation Comments Bedside Glucose (test code = 89075-1) 132 70-120 H Meter ID: [id number] McKinney HospitalUrine Culture 2019-02-09 14:29:00* Test Item Value Reference Range Interpretation Comments Urine Culture (test code = 630-4) No Result Data Provided [facility] Lzhwzlj4992-56-83 14:29:00* Test Item Value Reference Range Interpretation Comments Urine Culture (test code = 630-4) No Result Data Provided [facility] Wfqbwvp0550-46-45 10:27:00* Test Item Value Reference Range Interpretation Comments Blood Culture (test code = 15419594) NO GROWTH AFTER 72 HOURS [facility] HospitalUrine Hefjdme5618-70-63 10:06:00* Test Item Value Reference Range Interpretation Comments Urine Culture (test code = 630-4) No Result Data Provided [facility] Lylydfg2633-54-16 10:06:00* Test Item Value Reference Range Interpretation Comments Urine Culture (test code = 630-4) No Result Data Provided [facility] HospitalIR SLIOMXY2695-82-58 15:02:00 [facility] [address] [address] Patient Name: WESLY HUTCHINSON MR #: [id number] : Age/Sex: 58/F Req #: [id number] Adm Physician: FIGUEROA CARD MD Ordered by: JARET ESPINOSA MD Report #: [id number] Location: [facility] Room/Bed: [facility] Procedure: [id number] D X/IR CONSULT Exam Date: Exam Time: [...] weeks. PROCEDURE SUMMARY - Target organ: Unilateral [place] kidney - Antegrade nephrostogram(s) via the e [...] MD 1501 Transcribed By: DEYANIRA on 02/07/19 1509 COPY TO: JARET ESPINOSA MD NEPHRO/URET W IMG/WRO-NYUHYRDG1973-63-30 15:02:00 [place] [address] Patient Name: WESLY HUTCHINSON MR #: [id number] : Age/Sex: 58/F Req #: [id number] Adm Physician: FIGUEROA CARD MD Ordered by: FIGUEROA CARD MD Report #: [id number] Location: [facility] Room/Bed: 298-1 Procedure: [id number] I R/NEPHRO/URET W IMG/INJ-EXISTING Exam Date: Exam Ti me: REPORT STATUS: Signed PROCE DURE: Genitourinary catheter exchange Procedural Personnel Attending phys quiquean(s): Deja Dawson MD Fellow physician(s): None Resident physician(s): Charline ne Advanced practice provider(s): None Pre-procedure diagnosis: Right ure teral obstruction Post-procedure diagnosis: Same Indication: Routine schedul ed exchange Additional clinical history: None Complications: No immediate complications. IMPRESSION: Successful routine exchange of right nephr ostomy tube for new 10Fr nephrostomy tube. Plan: Routine exchange in 8 weeks. P ROCEDURE SUMMARY - Target organ: Unilateral [place] kidney - Antegrade nephro stogram(s) via the [...] Signed By: DEJA DAWSON MD on 02/07/19 150 Transcribed By: DEYANIRA on 02/07/19 1505 COPY TO: FIGUEROA CARD MD Prothrombin Epax8287-18-20 09:45:00 * Test Item Value Reference Range Interpretation Comments Prothrombin Time (test code = 5902-2) 12.5 11.9-14.5 [facility] HospitalProthromb Time International Ratio 2019-02-07 09:45:00* Test Item Value Reference Range Interpretation Comments Prothromb Time International Ratio (test code = 6301-6) 0.89 Oral Anticoagulant Therapy INR Values:1. Low Intensity Therapy 1.5 - 2.02 . Moderate Intensity Therapy 2.0 - 3.03. High Intensity Therapy(1) 2.5 - 3. 54. High Intensity Therapy(2) 3.0 - 4.05. Panic Value INR > 5.0 [facility] HospitalProthrombin Qcgp3993-36-35 09:45:00* Test Item Value Reference Range Interpretation Comments Prothrombin Time (test code = 5902-2) 12.5 11.9-14.5 [facility] HospitalProthromb Time International Ratio 2019-02-07 09:45:00* Test Item Value Reference Range Interpretation Comments Prothromb Time International Ratio (test code = 6301-6) 0.89 Oral Anticoagulant Therapy INR Values:1. Low Intensity Therapy 1.5 - 2.02 . Moderate Intensity Therapy 2.0 - 3.03. High Intensity Therapy(1) 2.5 - 3. 54. High Intensity Therapy(2) 3.0 - 4.05. Panic Value INR > 5.0 [facility] Qklsx1264-38-46 07:13:00* Test Item Value Reference Range Interpretation Comments Sodium Level (test code = 2951-2) 137 136-145 [facility] HospitalPotassium Mwudi3556-13-45 07:13:00* Test Item Value Reference Range Interpretation Comments Potassium Level (test code = 2823-3) 4.0 3.5-5.1 [facility] HospitalChloride Iszxy8797-09-26 07:13:00* Test Item Value Reference Range Interpretation Comments Chloride Level (test code = 2075-0) 105 98-107 [facility] HospitalCarbon Dioxide Uvxqz4165-21-36 07:13:00* Test Item Value Reference Range Interpretation Comments Carbon Dioxide Level (test code = 2028-9) 21 22-29 L [facility] HospitalAnion Hmo0487-53-95 07:13:00* Test Item Value Reference Range Interpretation Comments Anion Gap (test code = 60503-7) 15.0 8-16 [facility] HospitalBlood Urea Kdkvkjpv3083-17-04 07:13:00* Test Item Value Reference Range Interpretation Comments Blood Urea Nitrogen (test code = 3094-0) 12 7-26 [facility] HospitalCreatinine2019-12-30 07:13:00* Test Item Value Reference Range Interpretation Comments Creatinine (test code = 2160-0) 0.83 0.57-1.11 [facility] HospitalBUN/Creatinine Cokwy0788-09-92 07:13:00* Test Item Value Reference Range Interpretation Comments BUN/Creatinine Ratio (test code = 3097-3) 14 6-25 [facility] HospitalEstimat Glomerular Filtration Rate 2019-02-07 07:13:00* Test Item Value Reference Range Interpretation Comments Estimat Glomerular Filtration Rate (test code = 907385173) > 60 >60 Ranges were taken from the National Kidney Disease Education Program and the [facility] Kidney Foundation literature.Reference ranges:60 or greater: Alvacj90-33 ( for 3 consecutive months): Chronic kidney disease 15 or less: Kidney failureCHI [facility] Hospitals [facility] CampusGlucose Dorlp4606-53-74 07:13:00* Test Item Value Reference Range Interpretation Comments Glucose Level (test code = AOH4678) 136 74-118 H [facility] HospitalCalcium Tpane8352-93-56 07:13:00* Test Item Value Reference Range Interpretation Comments Calcium Level (test code = 60643-6) 9.0 8.4-10.2 [facility] HospitalTotal Cxqgawzpj5045-17-82 07:13:00* Test Item Value Reference Range Interpretation Comments Total Bilirubin (test code = 1975-2) 0.4 0.2-1.2 [facility] HospitalAspartate Amino Transf (AST/SGOT) 2019-02-07 07:13:00* Test Item Value Reference Range Interpretation Comments Aspartate Amino Transf (AST/SGOT) (test code = Aspartate Amino Transf (AST/SGOT)) 25 5-34 [facility] HospitalAlanine Aminotransferase (ALT/SGPT) 2019-02-07 07:13:00* Test Item Value Reference Range Interpretation Comments Alanine Aminotransferase (ALT/SGPT) (test code = 1742-6) 21 0-55 [facility] HospitalTotal Dwztszo5956-77-27 07:13:00* Test Item Value Reference Range Interpretation Comments Total Protein (test code = 2885-2) 7.2 6.5-8.1 [facility] HospitalAlbumin2019-12-30 07:13:00* Test Item Value Reference Range Interpretation Comments Albumin (test code = 1751-7) 2.8 3.5-5.0 L [facility] HospitalGlobulin2019-12-30 07:13:00* Test Item Value Reference Range Interpretation Comments Globulin (test code = 60709-0) 4.4 2.3-3.5 H [facility] HospitalAlbumin/Globulin Qvoay2844-30-83 07:13:00 * Test Item Value Reference Range Interpretation Comments Albumin/Globulin Ratio (test code = 1759-0) 0.6 0.8-2.0 L [facility] HospitalAlkaline Uoymcycgrhf1109-33-19 07:13:00* Test Item Value Reference Range Interpretation Comments Alkaline Phosphatase (test code = 6768-6) 105 40-150 [facility] HospitalWhite Blood Rwmaz8196-24-86 06:46:00* Test Item Value Reference Range Interpretation Comments White Blood Count (test code = 6690-2) 6.80 4.8-10.8 [facility] HospitalRed Blood Rakyc2134-49-02 06:46:00* Test Item Value Reference Range Interpretation Comments Red Blood Count (test code = 789-8) 3.75 3.6-5.1 [facility] HospitalHemoglobin2019-12-30 06:46:00* Test Item Value Reference Range Interpretation Comments Hemoglobin (test code = 82674-7) 9.5 12.0-16.0 L [facility] HospitalHematocrit2019-12-30 06:46:00* Test Item Value Reference Range Interpretation Comments Hematocrit (test code = 4544-3) 31.9 34.2-44.1 L [facility] HospitalMean Corpuscular Ykesyt7874-64-00 06:46:00* Test Item Value Reference Range Interpretation Comments Mean Corpuscular Volume (test code = 787-2) 85.1 81-99 [facility] HospitalMean Corpuscular Xaizxukxhx2619-00-41 06:46:00* Test Item Value Reference Range Interpretation Comments Mean Corpuscular Hemoglobin (test code = 785-6) 25.3 28-32 L [facility] HospitalMean Corpuscular Hemoglobin Concent 2019-02-07 06:46:00* Test Item Value Reference Range Interpretation Comments Mean Corpuscular Hemoglobin Concent (test code = 786-4) 29.8 31-35 L [facility] HospitalRed Cell Distribution Ezfqe4947-40-72 06:46:00* Test Item Value Reference Range Interpretation Comments Red Cell Distribution Width (test code = 16771-8) 15.5 11.7 -14.4 H [facility] HospitalPlatelet Xaohw5837-69-64 06:46:00* Test Item Value Reference Range Interpretation Comments Platelet Count (test code = 777-3) 225 140-360 [facility] HospitalNeutrophils (%) (Auto)2019-02-07 06:46:00 * Test Item Value Reference Range Interpretation Comments Neutrophils (%) (Auto) (test code = 79479-0) 60.9 38.7-80.0 [facility] HospitalLymphocytes (%) (Auto)2019-02-07 06:46:00 * Test Item Value Reference Range Interpretation Comments Lymphocytes (%) (Auto) (test code = 736-9) 26.3 18.0-39.1 [facility] HospitalMonocytes (%) (Auto)2019-02-07 06:46:00* Test Item Value Reference Range Interpretation Comments Monocytes (%) (Auto) (test code = 5905-5) 8.8 4.4-11.3 [facility] HospitalEosinophils (%) (Auto)2019-02-07 06:46:00 * Test Item Value Reference Range Interpretation Comments Eosinophils (%) (Auto) (test code = 713-8) 3.5 0.0-6.0 [facility] HospitalBasophils (%) (Auto)2019-02-07 06:46:00* Test Item Value Reference Range Interpretation Comments Basophils (%) (Auto) (test code = 706-2) 0.4 0.0-1.0 [facility] HospitalIM GRANULOCYTES %2019-02-07 06:46:00* Test Item Value Reference Range Interpretation Comments IM GRANULOCYTES % (test code = IM GRANULOCYTES %) 0.1 0.0- 1.0 [facility] HospitalNeutrophils # (Auto)2019-02-07 06:46:00* Test Item Value Reference Range Interpretation Comments Neutrophils # (Auto) (test code = 751-8) 4.1 2.1-6.9 [facility] HospitalLymphocytes # (Auto)2019-02-07 06:46:00* Test Item Value Reference Range Interpretation Comments Lymphocytes # (Auto) (test code = 79611-2) 1.8 1.0-3.2 [facility] HospitalMonocytes # (Auto)2019-02-07 06:46:00* Test Item Value Reference Range Interpretation Comments Monocytes # (Auto) (test code = 742-7) 0.6 0.2-0.8 [facility] HospitalEosinophils # (Auto)2019-02-07 06:46:00* Test Item Value Reference Range Interpretation Comments Eosinophils # (Auto) (test code = 711-2) 0.2 0.0-0.4 [facility] HospitalBasophils # (Auto)2019-02-07 06:46:00* Test Item Value Reference Range Interpretation Comments Basophils # (Auto) (test code = 704-7) 0.0 0.0-0.1 [facility] HospitalAbsolute Immature Granulocyte (auto 2019-02-07 06:46:00* Test Item Value Reference Range Interpretation Comments Absolute Immature Granulocyte (auto (irena t code = Absolute Immature Granulocyte (auto) 0.01 0-0.1 [facility] HospitalUrine JUY2808-96-47 10:00:00* Test Item Value Reference Range Interpretation Comments Urine WBC (test code = 5821-4) 11-20 0-5 H [facility] HospitalUrine DQX5647-02-24 10:00:00* Test Item Value Reference Range Interpretation Comments Urine RBC (test code = 27757-7) 11-20 0-5 H [facility] HospitalUrine Mxvxyqnj3988-24-63 10:00:00* Test Item Value Reference Range Interpretation Comments Urine Bacteria (test code = 36297-3) MODERATE NONE H [facility] HospitalUrine Epithelial Cqnjd6898-60-16 10:00:00 * Test Item Value Reference Range Interpretation Comments Urine Epithelial Cells (test code = 59956-7) FEW NONE [facility] HospitalUrine Wyysh0992-59-64 09:27:00* Test Item Value Reference Range Interpretation Comments Urine Color (test code = 5778-6) YELLOW YELLOW [facility] HospitalUrine Iuijmpy4599-79-67 09:27:00* Test Item Value Reference Range Interpretation Comments Urine Clarity (test code = 57518-9) SL CLOUDY CLEAR [facility] Specific Uyfyzgp0726-23-18 09:27:00 * Test Item Value Reference Range Interpretation Comments Urine Specific [place] (test code = 5811-5) 1.025 1.010-1.02 5 [facility] HospitalUrine tD6822-84-75 09:27:00* Test Item Value Reference Range Interpretation Comments Urine pH (test code = 27325-4) 7 5-7 [facility] HospitalUrine Leukocyte Gtlsljqm4881-63-28 09:27:00* Test Item Value Reference Range Interpretation Comments Urine Leukocyte Esterase (test code = 33336-7) SMALL NEGATIV E [facility] HospitalUrine Cfjtpry4634-22-46 09:27:00* Test Item Value Reference Range Interpretation Comments Urine Nitrite (test code = 70445-0) POSITIVE NEGATIVE [facility] HospitalUrine Ofkyboj8198-97-12 09:27:00* Test Item Value Reference Range Interpretation Comments Urine Protein (test code = 13296-8) 2+ NEGATIVE H [facility] HospitalUrine Glucose (UA)2019-02-06 09:27:00* Test Item Value Reference Range Interpretation Comments Urine Glucose (UA) (test code = 81012-9) NEGATIVE NEGATIVE [facility] HospitalUrine Cczzvxr0096-11-77 09:27:00* Test Item Value Reference Range Interpretation Comments Urine Ketones (test code = 45526-3) NEGATIVE NEGATIVE [facility] HospitalUrine Qmzaodxjedwh5686-57-45 09:27:00* Test Item Value Reference Range Interpretation Comments Urine Urobilinogen (test code = 84529-2) 0.2 0.2-1 [facility] Ovqpjpfhk9831-95-34 09:27:00* Test Item Value Reference Range Interpretation Comments Urine Bilirubin (test code = 1977-8) NEGATIVE NEGATIVE [facility] HospitalUrine Wccbi1857-29-58 09:27:00* Test Item Value Reference Range Interpretation Comments Urine Blood (test code = 31870-3) MODERATE NEGATIVE [facility] HospitalABDOMEN-1VIEW (KUB)2019-02-06 08:49:00 [facility] [address] [place] [address] Patient Name: WESLY HUTCHINSON MR #: [id number] : Age/Sex: 58/F Req #: [id number] Adm Physician: Ordered by: LIZ MUÑIZ MD Report #: [id number] Location: ER Room/Bed: Procedure: [id number] DX/ABDOMEN-1VIEW [...] 8:52 AM Dictated By: ANDERS ROSS MD 0852 Transc ribed By: DEYANIRA on 02/06/19 0852 COPY TO: LIZ MUÑIZ MD Bacterial urine fhesdim8514-33-14 07:10:00* Test Item Value Reference Range Interpretation Comments Urine Culture (test code = 630-4) PSEUDOMONAS AERUGINOSA [facility] HospitalUrine Vvrltnt1434-13-04 08:04:00* Test Item Value Reference Range Interpretation Comments Urine Culture (test code = 630-4) No Result Data Provided [facility] HospitalUrine Bbjvqic8187-87-50 08:04:00* Test Item Value Reference Range Interpretation Comments Urine Culture (test code = 630-4) No Result Data Provided [facility] HospitalABDOMEN-1VIEW (KUB)2019-01-14 16:47:00 [place] [address] Patient Name: WESLY HUTCHINSON MR #: [id number] : Age/Sex: 58/F Req #: [id number] Adm Physician: Ordered by: JARET ESPINOSA MD Report #: [id number] Location: OR Room/Bed: Procedure: [id number] D X/ABDOMEN-1VIEW (KUB) Exam Date: 01/14/19 Exam [...] 49 COPY TO: JARET PATEL MD Urine DCL4054-44-56 00:56:00* Test Item Value Reference Range Interpretation Comments Urine WBC (test code = 5821-4) >50 0-5 H [facility] HospitalU[facility] AGN8869-20-16 00:56:00* Test Item Value Reference Range Interpretation Comments Urine RBC (test code = 24386-6) >50 0-5 H [facility] Jxhqxmgd8050-76-18 00:56:00* Test Item Value Reference Range Interpretation Comments Urine Bacteria (test code = 83900-7) MODERATE NONE H [facility] HospitalU[facility] Epithelial Kluos5336-28-71 00:56:00 * Test Item Value Reference Range Interpretation Comments Urine Epithelial Cells (test code = 47335-9) FEW NONE [facility] HospitalU[facility] Famws8965-43-51 00:53:00* Test Item Value Reference Range Interpretation Comments Urine Color (test code = 5778-6) STRAW YELLOW [facility] Dyxgveq3719-71-75 00:53:00* Test Item Value Reference Range Interpretation Comments Urine Clarity (test code = 87737-4) CLOUDY CLEAR H [facility] HospitalU[facility] Specific Fsjqssk3190-00-96 00:53:00 * Test Item Value Reference Range Interpretation Comments Urine Specific [place] (test code = 5811-5) 1.010 1.010-1.02 5 [facility] lI5003-65-99 00:53:00* Test Item Value Reference Range Interpretation Comments Urine pH (test code = 55846-1) 7 5-7 [facility] Leukocyte Icxldtjk5883-22-73 00:53:00* Test Item Value Reference Range Interpretation Comments Urine Leukocyte Esterase (test code = 07460-0) LARGE NEGATIV E [facility] Cnjbjih9664-02-60 00:53:00* Test Item Value Reference Range Interpretation Comments Urine Nitrite (test code = 91475-0) NEGATIVE NEGATIVE [facility] Ktuzjmf8224-76-60 00:53:00* Test Item Value Reference Range Interpretation Comments Urine Protein (test code = 74796-1) 2+ NEGATIVE H [facility] HospitalUrine Glucose (UA)2019-01-13 00:53:00* Test Item Value Reference Range Interpretation Comments Urine Glucose (UA) (test code = 69098-0) NEGATIVE NEGATIVE [facility] Jropaaq7069-72-42 00:53:00* Test Item Value Reference Range Interpretation Comments Urine Ketones (test code = 92359-6) NEGATIVE NEGATIVE [facility] Icuqjlteltqm3538-93-62 00:53:00* Test Item Value Reference Range Interpretation Comments Urine Urobilinogen (test code = 36939-2) 0.2 0.2-1 [facility] Otzmoidkz8268-69-74 00:53:00* Test Item Value Reference Range Interpretation Comments Urine Bilirubin (test code = 1977-8) NEGATIVE NEGATIVE [facility] Pbspl1900-47-70 00:53:00* Test Item Value Reference Range Interpretation Comments Urine Blood (test code = 51374-4) 3+ NEGATIVE [facility] HospitalBacterial urine kuidhjk1177-12-88 23:00:00* Test Item Value Reference Range Interpretation Comments Urine Culture (test code = 630-4) ENTEROCOCCUS FAECIUM [facility] HospitalBacterial urine wdpvylm3601-49-24 23:00:00* Test Item Value Reference Range Interpretation Comments Urine Culture (test code = 630-4) ENTEROCOCCUS FAECIUM [facility] HospitalBacterial urine qrcfcyq8618-80-67 23:00:00* Test Item Value Reference Range Interpretation Comments Urine Culture (test code = 630-4) ENTEROCOCCUS FAECIUM [facility] Ohpspyp9205-49-63 07:20:00* Test Item Value Reference Range Interpretation Comments Urine Culture (test code = 630-4) No Result Data Provided [facility] Jgkofpd5791-29-41 07:20:00* Test Item Value Reference Range Interpretation Comments Urine Culture (test code = 630-4) No Result Data Provided [facility] Dxurnlg9356-16-98 07:20:00* Test Item Value Reference Range Interpretation Comments Urine Culture (test code = 630-4) No Result Data Provided [facility] GLB0962-18-91 12:57:00* Test Item Value Reference Range Interpretation Comments Urine WBC (test code = 5821-4) >50 0-5 H [facility] HZN2296-86-82 12:57:00* Test Item Value Reference Range Interpretation Comments Urine RBC (test code = 79801-3) >50 0-5 H [facility] Wsqepslc8635-33-16 12:57:00* Test Item Value Reference Range Interpretation Comments Urine Bacteria (test code = 81339-2) MANY NONE H [facility] Epithelial Tvwfw4313-15-22 12:57:00 * Test Item Value Reference Range Interpretation Comments Urine Epithelial Cells (test code = 12364-7) MANY NONE [facility] Amorphous Uovloacb4951-96-55 12:57:00* Test Item Value Reference Range Interpretation Comments Urine Amorphous Sediment (test code = 8246-1) FEW FEW [facility] Dimsz1647-69-19 12:57:00* Test Item Value Reference Range Interpretation Comments Urine Yeast (test code = 09661-2) MANY NONE H [facility] Amorphous Ivrkcoak6129-31-64 12:57:00* Test Item Value Reference Range Interpretation Comments Urine Amorphous Sediment (test code = 8246-1) FEW FEW [facility] Qfbfj8421-69-29 12:57:00* Test Item Value Reference Range Interpretation Comments Urine Yeast (test code = 71912-6) MANY NONE H [facility] Amorphous Vkxibwtl7923-37-98 12:57:00* Test Item Value Reference Range Interpretation Comments Urine Amorphous Sediment (test code = 8246-1) FEW FEW [facility] Lnjwo3215-10-12 12:57:00* Test Item Value Reference Range Interpretation Comments Urine Yeast (test code = 70940-9) MANY NONE [facility] Amorphous Msducncz2547-41-71 12:57:00* Test Item Value Reference Range Interpretation Comments Urine Amorphous Sediment (test code = 8246-1) FEW FEW [facility] Fslpv5789-62-17 12:57:00* Test Item Value Reference Range Interpretation Comments Urine Yeast (test code = 62236-8) MANY NONE H [facility] Vlfli8663-12-37 12:48:00* Test Item Value Reference Range Interpretation Comments Urine Color (test code = 5778-6) YELLOW YELLOW [facility] Ilqieiu2715-70-78 12:48:00* Test Item Value Reference Range Interpretation Comments Urine Clarity (test code = 37875-1) CLOUDY CLEAR H [facility] Specific Zsrjjgp2945-79-74 12:48:00 * Test Item Value Reference Range Interpretation Comments Urine Specific [place] (test code = 5811-5) 1.010 1.010-1.02 5 [facility] wT2908-34-11 12:48:00* Test Item Value Reference Range Interpretation Comments Urine pH (test code = 50805-9) 7 5-7 [facility] Leukocyte Ywuaesjf3703-55-97 12:48:00* Test Item Value Reference Range Interpretation Comments Urine Leukocyte Esterase (test code = 32293-0) LARGE NEGATIV E [facility] Airxrhq4628-06-65 12:48:00* Test Item Value Reference Range Interpretation Comments Urine Nitrite (test code = 36695-7) NEGATIVE NEGATIVE [facility] Ckxgcih2619-27-35 12:48:00* Test Item Value Reference Range Interpretation Comments Urine Protein (test code = 71168-5) 2+ NEGATIVE H [facility] Glucose (UA)2018-12-14 12:48:00* Test Item Value Reference Range Interpretation Comments Urine Glucose (UA) (test code = 08294-0) 1+ NEGATIVE H [facility] Oxczaeg2792-31-13 12:48:00* Test Item Value Reference Range Interpretation Comments Urine Ketones (test code = 77222-7) NEGATIVE NEGATIVE [facility] Ajprxdumaexq3801-57-57 12:48:00* Test Item Value Reference Range Interpretation Comments Urine Urobilinogen (test code = 03169-6) 0.2 0.2-1 [facility] Vfnxiebxu3527-67-53 12:48:00* Test Item Value Reference Range Interpretation Comments Urine Bilirubin (test code = 1977-8) NEGATIVE NEGATIVE [facility] Xzwxt8920-40-82 12:48:00* Test Item Value Reference Range Interpretation Comments Urine Blood (test code = 00837-8) 3+ NEGATIVE [facility] HospitalAmorphous sediment detection in urine sediment by light dzrhktecie5219-08-12 11:33:00* Test Item Value Reference Range Interpretation Comments Urine Amorphous Sediment (test code = 8246-1) FEW FEW [facility] HospitalYeast detection in urine sediment by light cablhstmcu4890-74-36 11:33:00* Test Item Value Reference Range Interpretation Comments Urine Yeast (test code = 61027-0) MANY NONE [facility] urine ivtbfgf4761-63-11 11:33:00* Test Item Value Reference Range Interpretation Comments Urine Culture (test code = 630-4) ENTEROCOCCUS FAECIUM [facility] HospitalAmorphous sediment detection in urine sediment by light wzbpnivagx9138-35-10 11:33:00* Test Item Value Reference Range Interpretation Comments Urine Amorphous Sediment (test code = 8246-1) FEW FEW [facility] HospitalYeast detection in urine sediment by light lnqdnrrtgk7782-85-17 11:33:00* Test Item Value Reference Range Interpretation Comments Urine Yeast (test code = 28499-6) MANY NONE [facility] urine unahdue2483-02-52 11:33:00* Test Item Value Reference Range Interpretation Comments Urine Culture (test code = 630-4) ENTEROCOCCUS FAECIUM [facility] HospitalNEPHRO/URET W IMG/CDS-WSCLMQKN3828-35-24 14:16:00 [place] [address] Patient Name: WESLY HUTCHINSON MR #: [id number] : 1960 Age/Sex: 58/F Req #: [id number] Adm Physician: Ordered by: JARET ESPINOSA MD Report #: [id number] Location: DX Room/Bed: Procedure: I R/NEPHRO/URET W IMG/INJ-EXISTING Exam Date: Exam Ti me: REPORT STATUS: Signed PROCE DURE: Genitourinary catheter exchange Procedural Personnel Attending phys quiquean(s): Deja Dawson MD Fellow physician(s): None Resident [...] intervals. PROCEDURE SUMMARY - Target organ: Right [place] kidney - Antegrade nephrostogram(s) via the existing [...] and agree with the report as lizzie sanchez. Signed by: Deja Dawson MD on 12/02/2018 2:21 PM Dict ated By: DEJA DAWSON MD 1421 Transcribed By: DEYANIRA on 12/02/18 1421 COPY TO: JARET ESPINOSA MD ABDOMEN-1VIEW (KUB)2018-10-01 07:49:00 [place] [address] Patient Name: WESLY HUTCHINSON MR #: [id number] : 1960 Age/Sex: 57/F Req #: [id number] Adm Physician: Ordered by: JARET ESPINOSA MD Report #: [id number] Location: OR Room/Bed: Procedure: [id number] D X/ABDOMEN-1VIEW (KUB) Exam Date: 10/01/18 Exam Time: 0725 REPORT [...] 0756 COPY TO: JARET ESPINOSA MD Bedside Mzedjml9317-73-90 19:41:00* Test Item Value Reference Range Interpretation Comments Bedside Glucose (test code = 95533-7) 184 70-120 H Meter ID: [id number] [facility] Glucose 2018-09-12 19:41:00* Test Item Value Reference Range Interpretation Comments Bedside Glucose (test code = 85631-1) 184 70-120 H Meter ID: [id number] [facility] Glucose 2018-09-12 19:41:00* Test Item Value Reference Range Interpretation Comments Bedside Glucose (test code = 18211-5) 184 70-120 H Meter ID: [id number] [facility] Glucose 2018-09-12 19:41:00* Test Item Value Reference Range Interpretation Comments Bedside Glucose (test code = 05334-3) 184 70-120 H Meter ID: [id number] [facility] Glucose 2018-09-12 19:41:00* Test Item Value Reference Range Interpretation Comments Bedside Glucose (test code = 04917-9) 184 70-120 H Meter ID: [id number] [facility]Th[facility] H[facility] (TSH)2018-09-12 07:33:00* Test Item Value Reference Range Interpretation Comments Thyroid Stimulating Hormone (TSH) (test code = 07464-5) 2.374 0.350-4.940 [facility] HospitalThyroid Stimulating Hormone (TSH) 2018-09-12 07:33:00* Test Item Value Reference Range Interpretation Comments Thyroid Stimulating Hormone (TSH) (test code = 42595-3) 2.374 0.350-4.940 [facility]Th[facility]ulating [facility]one (TSH) 2018-09-12 07:33:00* Test Item Value Reference Range Interpretation Comments Thyroid Stimulating Hormone (TSH) (test code = 69226-5) 2.374 0.350-4.940 [facility]Th[facility]ulating [facility] (TSH) 2018-09-12 07:33:00* Test Item Value Reference Range Interpretation Comments Thyroid Stimulating Hormone (TSH) (test code = 97752-3) 2.374 0.350-4.940 [facility] HospitalThyroid Stimulating Hormone (TSH) 2018-09-12 07:33:00* Test Item Value Reference Range Interpretation Comments Thyroid Stimulating Hormone (TSH) (test code = 13319-2) 2.374 0.350-4.940 [facility] HospitalTh[facility]ulating [facility]one (TSH) 2018-09-12 07:33:00* Test Item Value Reference Range Interpretation Comments Thyroid Stimulating Hormone (TSH) (test code = 60901-8) 2.374 0.350-4.940 [facility]Th[facility] (TSH) 2018-09-12 07:33:00* Test Item Value Reference Range Interpretation Comments Thyroid Stimulating Hormone (TSH) (test code = 13163-1) 2.374 0.350-4.940 [facility] HospitalHemoglobin A1c Iiywduo4652-96-72 07:21:00 * Test Item Value Reference Range Interpretation Comments Hemoglobin A1c Percent (test code = Hemoglobin A1c Percent) 6.7 4.0-7.0 [facility] HospitalHemoglobin A1c Tideblt3397-69-24 07:21:00 * Test Item Value Reference Range Interpretation Comments Hemoglobin A1c Percent (test code = Hemoglobin A1c Percent) 6.7 4.0-7.0 [facility] HospitalHemoglobin A1c Oqvajxq2324-68-42 07:21:00 * Test Item Value Reference Range Interpretation Comments Hemoglobin A1c Percent (test code = Hemoglobin A1c Percent) 6.7 4.0-7.0 [facility] HospitalHemoglobin A1c Qksdhph2206-11-16 07:21:00 * Test Item Value Reference Range Interpretation Comments Hemoglobin A1c Percent (test code = Hemoglobin A1c Percent) 6.7 4.0-7.0 [facility] HospitalHemoglobin A1c Rpwxzlr4906-80-26 07:21:00 * Test Item Value Reference Range Interpretation Comments Hemoglobin A1c Percent (test code = Hemoglobin A1c Percent) 6.7 4.0-7.0 [facility] HospitalHemoglobin A1c Jaoftjs8643-89-21 07:21:00 * Test Item Value Reference Range Interpretation Comments Hemoglobin A1c Percent (test code = Hemoglobin A1c Percent) 6.7 4.0-7.0 [facility] HospitalHemoglobin A1c Hiihdek8749-37-39 07:21:00 * Test Item Value Reference Range Interpretation Comments Hemoglobin A1c Percent (test code = Hemoglobin A1c Percent) 6.7 4.0-7.0 [facility] Wgmvp7596-09-46 06:29:00* Test Item Value Reference Range Interpretation Comments Sodium Level (test code = 2951-2) 140 136-145 [facility] HospitalPotassium Djbkj8990-09-40 06:29:00* Test Item Value Reference Range Interpretation Comments Potassium Level (test code = 2823-3) 3.1 3.5-5.1 L [facility] HospitalChloride Jlgkv8486-64-97 06:29:00* Test Item Value Reference Range Interpretation Comments Chloride Level (test code = 2075-0) 106 98-107 [facility] HospitalCarbon Dioxide Mqpas8505-35-06 06:29:00* Test Item Value Reference Range Interpretation Comments Carbon Dioxide Level (test code = 2028-9) 23 22-29 [facility] HospitalAnion Crz9769-24-31 06:29:00* Test Item Value Reference Range Interpretation Comments Anion Gap (test code = 29952-9) 14.1 8-16 [facility] HospitalBlood Urea Gjqypcik6825-18-72 06:29:00* Test Item Value Reference Range Interpretation Comments Blood Urea Nitrogen (test code = 3094-0) 11 7-26 [facility] HospitalCreatinine2019-08-04 06:29:00* Test Item Value Reference Range Interpretation Comments Creatinine (test code = 2160-0) 1.14 0.57-1.11 H [facility] HospitalBUN/Creatinine Ghkla0735-99-57 06:29:00* Test Item Value Reference Range Interpretation Comments BUN/Creatinine Ratio (test code = 3097-3) 10 6-25 [facility] HospitalEstimat Glomerular Filtration Rate 2018-09-12 06:29:00* Test Item Value Reference Range Interpretation Comments Estimat Glomerular Filtration Rate (test code = 657580998) 49 >60 L Ranges were taken from the National Kidney Disease Education Program and the [place] [facility] [employer] literature.Reference ranges:60 or greater: Jvqodu43-98 ( for 3 consecutive months): Chronic kidney disease 15 or less: Kidney failureMethodist McKinney HospitalGlucose Pfldx7113-14-08 06:29:00* Test Item Value Reference Range Interpretation Comments Glucose Level (test code = CEF5658) 172 74-118 H [facility] HospitalCalcium Sxcck4706-73-46 06:29:00* Test Item Value Reference Range Interpretation Comments Calcium Level (test code = 00134-4) 9.2 8.4-10.2 [facility] Zhixg6733-24-23 06:29:00* Test Item Value Reference Range Interpretation Comments Sodium Level (test code = 2951-2) 140 136-145 [facility] HospitalPotassium Cuavc3642-01-83 06:29:00* Test Item Value Reference Range Interpretation Comments Potassium Level (test code = 2823-3) 3.1 3.5-5.1 L [facility] HospitalChloride Qnlgs3312-99-33 06:29:00* Test Item Value Reference Range Interpretation Comments Chloride Level (test code = 2075-0) 106 98-107 [facility] HospitalCarbon Dioxide Jqfsl1755-78-24 06:29:00* Test Item Value Reference Range Interpretation Comments Carbon Dioxide Level (test code = 2028-9) 23 22-29 [facility] HospitalAnion Lvz9245-97-33 06:29:00* Test Item Value Reference Range Interpretation Comments Anion Gap (test code = 13499-8) 14.1 8-16 [facility] HospitalBlood Urea Xmfvjdlr0096-73-29 06:29:00* Test Item Value Reference Range Interpretation Comments Blood Urea Nitrogen (test code = 3094-0) 11 7-26 [facility] HospitalCreatinine2019-08-04 06:29:00* Test Item Value Reference Range Interpretation Comments Creatinine (test code = 2160-0) 1.14 0.57-1.11 H [facility] HospitalBUN/Creatinine Ddrwi6055-46-75 06:29:00* Test Item Value Reference Range Interpretation Comments BUN/Creatinine Ratio (test code = 3097-3) 10 6-25 [facility] HospitalEstimat Glomerular Filtration Rate 2018-09-12 06:29:00* Test Item Value Reference Range Interpretation Comments Estimat Glomerular Filtration Rate (test code = 445778893) 49 >60 L Ranges were taken from the National Kidney Disease Education Program and the [facility] Kidney Foundation literature.Reference ranges:60 or greater: Xgheyt79-83 ( for 3 consecutive months): Chronic kidney disease 15 or less: Kidney failureMethodist McKinney HospitalGlucose Ldugm3599-29-18 06:29:00* Test Item Value Reference Range Interpretation Comments Glucose Level (test code = XZE2062) 172 74-118 H [facility] HospitalCalcium Qoolq5243-81-25 06:29:00* Test Item Value Reference Range Interpretation Comments Calcium Level (test code = 66103-4) 9.2 8.4-10.2 [facility] Nqmsb8818-37-41 06:29:00* Test Item Value Reference Range Interpretation Comments Sodium Level (test code = 2951-2) 140 136-145 [facility] HospitalPotassium Nklfa2913-06-78 06:29:00* Test Item Value Reference Range Interpretation Comments Potassium Level (test code = 2823-3) 3.1 3.5-5.1 L [facility] HospitalChloride Ufmwn7745-42-44 06:29:00* Test Item Value Reference Range Interpretation Comments Chloride Level (test code = 2075-0) 106 98-107 [facility] HospitalCarbon Dioxide Jlbiw2559-96-15 06:29:00* Test Item Value Reference Range Interpretation Comments Carbon Dioxide Level (test code = 2028-9) 23 22-29 [facility] HospitalAnion Rec5796-03-75 06:29:00* Test Item Value Reference Range Interpretation Comments Anion Gap (test code = 74116-0) 14.1 8-16 [facility] HospitalBlood Urea Qkpipejs0914-48-24 06:29:00* Test Item Value Reference Range Interpretation Comments Blood Urea Nitrogen (test code = 3094-0) 11 7-26 [facility] HospitalCreatinine2019-08-04 06:29:00* Test Item Value Reference Range Interpretation Comments Creatinine (test code = 2160-0) 1.14 0.57-1.11 H [facility] HospitalBUN/Creatinine Urwug5404-97-20 06:29:00* Test Item Value Reference Range Interpretation Comments BUN/Creatinine Ratio (test code = 3097-3) 10 6- [facility] HospitalEstimat Glomerular Filtration Rate 2018-09-12 06:29:00* Test Item Value Reference Range Interpretation Comments Estimat Glomerular Filtration Rate (test code = 312680822) 49 >60 L Ranges were taken from the National Kidney Disease Education Program and the [facility] literature.Reference ranges:60 or greater: Hzmqte47-97 ( for 3 consecutive months): Chronic kidney disease 15 or less: Kidney failureMethodist McKinney HospitalGlucose Stmpa8668-42-94 06:29:00* Test Item Value Reference Range Interpretation Comments Glucose Level (test code = HXU5835) 172 74-118 H [facility] HospitalCalcium Vugtp0986-05-63 06:29:00* Test Item Value Reference Range Interpretation Comments Calcium Level (test code = 14524-6) 9.2 8.4-10.2 [facility] Afqje1431-47-38 06:29:00* Test Item Value Reference Range Interpretation Comments Sodium Level (test code = 2951-2) 140 136-145 [facility] HospitalPotassium Ewofk0180-39-98 06:29:00* Test Item Value Reference Range Interpretation Comments Potassium Level (test code = 2823-3) 3.1 3.5-5.1 L [facility] HospitalChloride Ijbol5195-46-60 06:29:00* Test Item Value Reference Range Interpretation Comments Chloride Level (test code = 2075-0) 106 98-107 [facility] HospitalCarbon Dioxide Dpagn6655-19-62 06:29:00* Test Item Value Reference Range Interpretation Comments Carbon Dioxide Level (test code = 2028-9) 23 22-29 [facility] HospitalAnion Kmh4929-01-23 06:29:00* Test Item Value Reference Range Interpretation Comments Anion Gap (test code = 80484-2) 14.1 8-16 [facility] HospitalBlood Urea Sevszozz3602-24-71 06:29:00* Test Item Value Reference Range Interpretation Comments Blood Urea Nitrogen (test code = 3094-0) 11 7-26 [facility] HospitalCreatinine2019-08-04 06:29:00* Test Item Value Reference Range Interpretation Comments Creatinine (test code = 2160-0) 1.14 0.57-1.11 H [facility] HospitalBUN/Creatinine Xnofc4241-51-34 06:29:00* Test Item Value Reference Range Interpretation Comments BUN/Creatinine Ratio (test code = 3097-3) 10 6-25 [facility] HospitalEstimat Glomerular Filtration Rate 2018-09-12 06:29:00* Test Item Value Reference Range Interpretation Comments Estimat Glomerular Filtration Rate (test code = 079337519) 49 >60 L Ranges were taken from the National Kidney Disease Education Program and the [facility] Kidney Foundation literature.Reference ranges:60 or greater: Qotjee01-29 ( for 3 consecutive months): Chronic kidney disease 15 or less: Kidney failureMethodist McKinney HospitalGlucose Dczfz2564-35-11 06:29:00* Test Item Value Reference Range Interpretation Comments Glucose Level (test code = RUC0934) 172 74-118 H [facility] HospitalCalcium Lblpn7016-75-44 06:29:00* Test Item Value Reference Range Interpretation Comments Calcium Level (test code = 69550-5) 9.2 8.4-10.2 [facility] Hxmfe1087-24-30 06:29:00* Test Item Value Reference Range Interpretation Comments Sodium Level (test code = 2951-2) 140 136-145 [facility] HospitalPotassium Bntiv3073-09-95 06:29:00* Test Item Value Reference Range Interpretation Comments Potassium Level (test code = 2823-3) 3.1 3.5-5.1 L [facility] HospitalChloride Ogvvw4899-33-64 06:29:00* Test Item Value Reference Range Interpretation Comments Chloride Level (test code = 2075-0) 106 98-107 [facility] HospitalCarbon Dioxide Uwkcm9320-68-36 06:29:00* Test Item Value Reference Range Interpretation Comments Carbon Dioxide Level (test code = 2028-9) 23 22-29 [facility] HospitalAnion Spz0709-49-52 06:29:00* Test Item Value Reference Range Interpretation Comments Anion Gap (test code = 53654-9) 14.1 8-16 [facility] HospitalBlood Urea Ddnpjkag2848-04-03 06:29:00* Test Item Value Reference Range Interpretation Comments Blood Urea Nitrogen (test code = 3094-0) 11 7-26 [facility] HospitalCreatinine2019-08-04 06:29:00* Test Item Value Reference Range Interpretation Comments Creatinine (test code = 2160-0) 1.14 0.57-1.11 H [facility] HospitalBUN/Creatinine Qzldh9720-83-24 06:29:00* Test Item Value Reference Range Interpretation Comments BUN/Creatinine Ratio (test code = 3097-3) 10 6- [facility] HospitalEstimat Glomerular Filtration Rate 2018-09-12 06:29:00* Test Item Value Reference Range Interpretation Comments Estimat Glomerular Filtration Rate (test code = 970535994) 49 >60 L Ranges were taken from the National Kidney Disease Education Program and the [facility] literature.Reference ranges:60 or greater: Awbzzg85-47 ( for 3 consecutive months): Chronic kidney disease 15 or less: Kidney failureMethodist McKinney HospitalGlucose Ujwzb8893-94-53 06:29:00* Test Item Value Reference Range Interpretation Comments Glucose Level (test code = PWD1836) 172 74-118 H [facility] HospitalCalcium Olxbh0693-26-77 06:29:00* Test Item Value Reference Range Interpretation Comments Calcium Level (test code = 44081-3) 9.2 8.4-10.2 [facility] HospitalWhite Blood Npdry5452-66-66 06:26:00* Test Item Value Reference Range Interpretation Comments White Blood Count (test code = 6690-2) 9.37 4.8-10.8 [facility] HospitalRed Blood Xuykx7525-66-69 06:26:00* Test Item Value Reference Range Interpretation Comments Red Blood Count (test code = 789-8) 3.74 3.6-5.1 [facility] HospitalHemoglobin2019-08-04 06:26:00* Test Item Value Reference Range Interpretation Comments Hemoglobin (test code = 13287-7) 9.3 12.0-16.0 L [facility] HospitalHematocrit2019-08-04 06:26:00* Test Item Value Reference Range Interpretation Comments Hematocrit (test code = 4544-3) 30.4 34.2-44.1 L [facility] HospitalMean Corpuscular Ectysb5638-39-46 06:26:00* Test Item Value Reference Range Interpretation Comments Mean Corpuscular Volume (test code = 787-2) 81.3 81-99 [facility] HospitalMean Corpuscular Cfctvecosn8445-23-13 06:26:00* Test Item Value Reference Range Interpretation Comments Mean Corpuscular Hemoglobin (test code = 785-6) 24.9 28-32 L [facility] HospitalMean Corpuscular Hemoglobin Concent 2018-09-12 06:26:00* Test Item Value Reference Range Interpretation Comments Mean Corpuscular Hemoglobin Concent (test code = 786-4) 30.6 31-35 L [facility] HospitalRed Cell Distribution Ktwsb2858-79-68 06:26:00* Test Item Value Reference Range Interpretation Comments Red Cell Distribution Width (test code = 14615-8) 15.9 11.7 -14.4 H [facility] HospitalPlatelet Fruvx0787-62-41 06:26:00* Test Item Value Reference Range Interpretation Comments Platelet Count (test code = 777-3) 279 140-360 [facility] HospitalNeutrophils (%) (Auto)2018-09-12 06:26:00 * Test Item Value Reference Range Interpretation Comments Neutrophils (%) (Auto) (test code = 97250-1) 73.2 38.7-80.0 [facility] HospitalLymphocytes (%) (Auto)2018-09-12 06:26:00 * Test Item Value Reference Range Interpretation Comments Lymphocytes (%) (Auto) (test code = 736-9) 19.2 18.0-39.1 [facility] HospitalMonocytes (%) (Auto)2018-09-12 06:26:00* Test Item Value Reference Range Interpretation Comments Monocytes (%) (Auto) (test code = 5905-5) 5.2 4.4-11.3 [facility] HospitalEosinophils (%) (Auto)2018-09-12 06:26:00 * Test Item Value Reference Range Interpretation Comments Eosinophils (%) (Auto) (test code = 713-8) 1.8 0.0-6.0 [facility] ([facility])2018-09-12 06:26:00* Test Item Value Reference Range Interpretation Comments Basophils (%) (Auto) (test code = 706-2) 0.3 0.0-1.0 [facility]IM [facility]ANULOCYTES %2018-09-12 06:26:00* Test Item Value Reference Range Interpretation Comments IM GRANULOCYTES % (test code = IM GRANULOCYTES %) 0.3 0.0- 1.0 [facility] HospitalNeutrophils # (Auto)2018-09-12 06:26:00* Test Item Value Reference Range Interpretation Comments Neutrophils # (Auto) (test code = 751-8) 6.9 2.1-6.9 [facility] HospitalLymphocytes # (Auto)2018-09-12 06:26:00* Test Item Value Reference Range Interpretation Comments Lymphocytes # (Auto) (test code = 97853-5) 1.8 1.0-3.2 [facility]Monocytes # (Auto)2018-09-12 06:26:00* Test Item Value Reference Range Interpretation Comments Monocytes # (Auto) (test code = 742-7) 0.5 0.2-0.8 [facility]Eosinophils # (Auto)2018-09-12 06:26:00* Test Item Value Reference Range Interpretation Comments Eosinophils # (Auto) (test code = 711-2) 0.2 0.0-0.4 [facility]Basophils # (Auto)2018-09-12 06:26:00* Test Item Value Reference Range Interpretation Comments Basophils # (Auto) (test code = 704-7) 0.0 0.0-0.1 [facility] HospitalAbsolute Immature Granulocyte (auto 2018-09-12 06:26:00* Test Item Value Reference Range Interpretation Comments Absolute Immature Granulocyte (auto (irena t code = Absolute Immature Granulocyte (auto) 0.03 0-0.1 [facility] HospitalWhite Blood Ewoec7112-84-70 06:26:00* Test Item Value Reference Range Interpretation Comments White Blood Count (test code = 6690-2) 9.37 4.8-10.8 [facility] HospitalRed Blood Qabzb8424-63-56 06:26:00* Test Item Value Reference Range Interpretation Comments Red Blood Count (test code = 789-8) 3.74 3.6-5.1 [facility] HospitalHemoglobin2019-08-04 06:26:00* Test Item Value Reference Range Interpretation Comments Hemoglobin (test code = 02642-6) 9.3 12.0-16.0 L [facility] HospitalHematocrit2019-08-04 06:26:00* Test Item Value Reference Range Interpretation Comments Hematocrit (test code = 4544-3) 30.4 34.2-44.1 L [facility] HospitalMean Corpuscular Gzfwmv9658-18-29 06:26:00* Test Item Value Reference Range Interpretation Comments Mean Corpuscular Volume (test code = 787-2) 81.3 81-99 [facility]Mean Corpuscular Yrgquzewod6204-29-10 06:26:00* Test Item Value Reference Range Interpretation Comments Mean Corpuscular Hemoglobin (test code = 785-6) 24.9 28-32 L [facility] HospitalMean Corpuscular Hemoglobin Concent 2018-09-12 06:26:00* Test Item Value Reference Range Interpretation Comments Mean Corpuscular Hemoglobin Concent (test code = 786-4) 30.6 31-35 L [facility] HospitalRed Cell Distribution Vruam1136-01-39 06:26:00* Test Item Value Reference Range Interpretation Comments Red Cell Distribution Width (test code = 18007-0) 15.9 11.7 -14.4 H [facility] HospitalPlatelet Iuxbm0621-37-33 06:26:00* Test Item Value Reference Range Interpretation Comments Platelet Count (test code = 777-3) 279 140-360 [facility] HospitalNeutrophils (%) (Auto)2018-09-12 06:26:00 * Test Item Value Reference Range Interpretation Comments Neutrophils (%) (Auto) (test code = 17015-9) 73.2 38.7-80.0 [facility] HospitalLymphocytes (%) (Auto)2018-09-12 06:26:00 * Test Item Value Reference Range Interpretation Comments Lymphocytes (%) (Auto) (test code = 736-9) 19.2 18.0-39.1 [facility] HospitalMonocytes (%) (Auto)2018-09-12 06:26:00* Test Item Value Reference Range Interpretation Comments Monocytes (%) (Auto) (test code = 5905-5) 5.2 4.4-11.3 [facility] HospitalEosinophils (%) (Auto)2018-09-12 06:26:00 * Test Item Value Reference Range Interpretation Comments Eosinophils (%) (Auto) (test code = 713-8) 1.8 0.0-6.0 [facility] HospitalBasophils (%) (Auto)2018-09-12 06:26:00* Test Item Value Reference Range Interpretation Comments Basophils (%) (Auto) (test code = 706-2) 0.3 0.0-1.0 [facility] HospitalIM GRANULOCYTES %2018-09-12 06:26:00* Test Item Value Reference Range Interpretation Comments IM GRANULOCYTES % (test code = IM GRANULOCYTES %) 0.3 0.0- 1.0 [facility] HospitalNeutrophils # (Auto)2018-09-12 06:26:00* Test Item Value Reference Range Interpretation Comments Neutrophils # (Auto) (test code = 751-8) 6.9 2.1-6.9 [facility] HospitalLymphocytes # (Auto)2018-09-12 06:26:00* Test Item Value Reference Range Interpretation Comments Lymphocytes # (Auto) (test code = 39063-7) 1.8 1.0-3.2 [facility] HospitalMonocytes # (Auto)2018-09-12 06:26:00* Test Item Value Reference Range Interpretation Comments Monocytes # (Auto) (test code = 742-7) 0.5 0.2-0.8 [facility] HospitalEosinophils # (Auto)2018-09-12 06:26:00* Test Item Value Reference Range Interpretation Comments Eosinophils # (Auto) (test code = 711-2) 0.2 0.0-0.4 [facility] HospitalBasophils # (Auto)2018-09-12 06:26:00* Test Item Value Reference Range Interpretation Comments Basophils # (Auto) (test code = 704-7) 0.0 0.0-0.1 [facility] HospitalAbsolute Immature Granulocyte (auto 2018-09-12 06:26:00* Test Item Value Reference Range Interpretation Comments Absolute Immature Granulocyte (auto (irena t code = Absolute Immature Granulocyte (auto) 0.03 0-0.1 [facility] HospitalWhite Blood Uijlr6326-66-90 06:26:00* Test Item Value Reference Range Interpretation Comments White Blood Count (test code = 6690-2) 9.37 4.8-10.8 [facility] HospitalRed Blood Pekjy4399-28-21 06:26:00* Test Item Value Reference Range Interpretation Comments Red Blood Count (test code = 789-8) 3.74 3.6-5.1 [facility] HospitalHemoglobin2019-08-04 06:26:00* Test Item Value Reference Range Interpretation Comments Hemoglobin (test code = 37065-7) 9.3 12.0-16.0 L [facility] HospitalHematocrit2019-08-04 06:26:00* Test Item Value Reference Range Interpretation Comments Hematocrit (test code = 4544-3) 30.4 34.2-44.1 L [facility] HospitalMean Corpuscular Zqaghl5128-16-91 06:26:00* Test Item Value Reference Range Interpretation Comments Mean Corpuscular Volume (test code = 787-2) 81.3 81-99 [facility]Mean Corpuscular Vxckhkabuo1035-32-12 06:26:00* Test Item Value Reference Range Interpretation Comments Mean Corpuscular Hemoglobin (test code = 785-6) 24.9 28-32 L [facility] HospitalMean Corpuscular Hemoglobin Concent 2018-09-12 06:26:00* Test Item Value Reference Range Interpretation Comments Mean Corpuscular Hemoglobin Concent (test code = 786-4) 30.6 31-35 L [facility] HospitalRed Cell Distribution Xfwul9215-56-91 06:26:00* Test Item Value Reference Range Interpretation Comments Red Cell Distribution Width (test code = 31224-9) 15.9 11.7 -14.4 H [facility] HospitalPlatelet Czbra4340-42-07 06:26:00* Test Item Value Reference Range Interpretation Comments Platelet Count (test code = 777-3) 279 140-360 [facility] HospitalNeutrophils (%) (Auto)2018-09-12 06:26:00 * Test Item Value Reference Range Interpretation Comments Neutrophils (%) (Auto) (test code = 20371-0) 73.2 38.7-80.0 [facility] HospitalLymphocytes (%) (Auto)2018-09-12 06:26:00 * Test Item Value Reference Range Interpretation Comments Lymphocytes (%) (Auto) (test code = 736-9) 19.2 18.0-39.1 [facility] HospitalMonocytes (%) (Auto)2018-09-12 06:26:00* Test Item Value Reference Range Interpretation Comments Monocytes (%) (Auto) (test code = 5905-5) 5.2 4.4-11.3 [facility] HospitalEosinophils (%) (Auto)2018-09-12 06:26:00 * Test Item Value Reference Range Interpretation Comments Eosinophils (%) (Auto) (test code = 713-8) 1.8 0.0-6.0 [facility] HospitalBasophils (%) (Auto)2018-09-12 06:26:00* Test Item Value Reference Range Interpretation Comments Basophils (%) (Auto) (test code = 706-2) 0.3 0.0-1.0 [facility] HospitalIM GRANULOCYTES %2018-09-12 06:26:00* Test Item Value Reference Range Interpretation Comments IM GRANULOCYTES % (test code = IM GRANULOCYTES %) 0.3 0.0- 1.0 [facility] HospitalNeutrophils # (Auto)2018-09-12 06:26:00* Test Item Value Reference Range Interpretation Comments Neutrophils # (Auto) (test code = 751-8) 6.9 2.1-6.9 [facility] HospitalLymphocytes # (Auto)2018-09-12 06:26:00* Test Item Value Reference Range Interpretation Comments Lymphocytes # (Auto) (test code = 57162-4) 1.8 1.0-3.2 [facility] HospitalMonocytes # (Auto)2018-09-12 06:26:00* Test Item Value Reference Range Interpretation Comments Monocytes # (Auto) (test code = 742-7) 0.5 0.2-0.8 [facility] HospitalEosinophils # (Auto)2018-09-12 06:26:00* Test Item Value Reference Range Interpretation Comments Eosinophils # (Auto) (test code = 711-2) 0.2 0.0-0.4 [facility] HospitalBasophils # (Auto)2018-09-12 06:26:00* Test Item Value Reference Range Interpretation Comments Basophils # (Auto) (test code = 704-7) 0.0 0.0-0.1 [facility] HospitalAbsolute Immature Granulocyte (auto 2018-09-12 06:26:00* Test Item Value Reference Range Interpretation Comments Absolute Immature Granulocyte (auto (irena t code = Absolute Immature Granulocyte (auto) 0.03 0-0.1 [facility] HospitalWhite Blood Uyckp2836-28-04 06:26:00* Test Item Value Reference Range Interpretation Comments White Blood Count (test code = 6690-2) 9.37 4.8-10.8 [facility] HospitalRed Blood Vnbhg0278-03-73 06:26:00* Test Item Value Reference Range Interpretation Comments Red Blood Count (test code = 789-8) 3.74 3.6-5.1 [facility] HospitalHemoglobin2019-08-04 06:26:00* Test Item Value Reference Range Interpretation Comments Hemoglobin (test code = 12448-1) 9.3 12.0-16.0 L [facility] HospitalHematocrit2019-08-04 06:26:00* Test Item Value Reference Range Interpretation Comments Hematocrit (test code = 4544-3) 30.4 34.2-44.1 L [facility] HospitalMean Corpuscular Mknxaw7254-89-37 06:26:00* Test Item Value Reference Range Interpretation Comments Mean Corpuscular Volume (test code = 787-2) 81.3 81-99 [facility] HospitalMean Corpuscular Iuphwqmoop1033-81-70 06:26:00* Test Item Value Reference Range Interpretation Comments Mean Corpuscular Hemoglobin (test code = 785-6) 24.9 28-32 L [facility] HospitalMean Corpuscular Hemoglobin Concent 2018-09-12 06:26:00* Test Item Value Reference Range Interpretation Comments Mean Corpuscular Hemoglobin Concent (test code = 786-4) 30.6 31-35 L [facility] HospitalRed Cell Distribution Ptoav0719-24-32 06:26:00* Test Item Value Reference Range Interpretation Comments Red Cell Distribution Width (test code = 96223-9) 15.9 11.7 -14.4 H [facility] HospitalPlatelet Mftgt5738-18-76 06:26:00* Test Item Value Reference Range Interpretation Comments Platelet Count (test code = 777-3) 279 140-360 [facility] HospitalNeutrophils (%) (Auto)2018-09-12 06:26:00 * Test Item Value Reference Range Interpretation Comments Neutrophils (%) (Auto) (test code = 18627-3) 73.2 38.7-80.0 [facility] HospitalLymphocytes (%) (Auto)2018-09-12 06:26:00 * Test Item Value Reference Range Interpretation Comments Lymphocytes (%) (Auto) (test code = 736-9) 19.2 18.0-39.1 [facility] HospitalMonocytes (%) (Auto)2018-09-12 06:26:00* Test Item Value Reference Range Interpretation Comments Monocytes (%) (Auto) (test code = 5905-5) 5.2 4.4-11.3 [facility] HospitalEosinophils (%) (Auto)2018-09-12 06:26:00 * Test Item Value Reference Range Interpretation Comments Eosinophils (%) (Auto) (test code = 713-8) 1.8 0.0-6.0 [facility] HospitalBasophils (%) (Auto)2018-09-12 06:26:00* Test Item Value Reference Range Interpretation Comments Basophils (%) (Auto) (test code = 706-2) 0.3 0.0-1.0 [facility] HospitalIM GRANULOCYTES %2018-09-12 06:26:00* Test Item Value Reference Range Interpretation Comments IM GRANULOCYTES % (test code = IM GRANULOCYTES %) 0.3 0.0- 1.0 [facility] HospitalNeutrophils # (Auto)2018-09-12 06:26:00* Test Item Value Reference Range Interpretation Comments Neutrophils # (Auto) (test code = 751-8) 6.9 2.1-6.9 [facility] HospitalLymphocytes # (Auto)2018-09-12 06:26:00* Test Item Value Reference Range Interpretation Comments Lymphocytes # (Auto) (test code = 45846-3) 1.8 1.0-3.2 [facility] HospitalMonocytes # (Auto)2018-09-12 06:26:00* Test Item Value Reference Range Interpretation Comments Monocytes # (Auto) (test code = 742-7) 0.5 0.2-0.8 [facility] HospitalEosinophils # (Auto)2018-09-12 06:26:00* Test Item Value Reference Range Interpretation Comments Eosinophils # (Auto) (test code = 711-2) 0.2 0.0-0.4 [facility] HospitalBasophils # (Auto)2018-09-12 06:26:00* Test Item Value Reference Range Interpretation Comments Basophils # (Auto) (test code = 704-7) 0.0 0.0-0.1 [facility] HospitalAbsolute Immature Granulocyte (auto 2018-09-12 06:26:00* Test Item Value Reference Range Interpretation Comments Absolute Immature Granulocyte (auto (irena t code = Absolute Immature Granulocyte (auto) 0.03 0-0.1 [facility] HospitalWhite Blood Aouwq2752-52-87 06:26:00* Test Item Value Reference Range Interpretation Comments White Blood Count (test code = 6690-2) 9.37 4.8-10.8 [facility] HospitalRed Blood Gmify3165-51-81 06:26:00* Test Item Value Reference Range Interpretation Comments Red Blood Count (test code = 789-8) 3.74 3.6-5.1 [facility] HospitalHemoglobin2019-08-04 06:26:00* Test Item Value Reference Range Interpretation Comments Hemoglobin (test code = 11579-0) 9.3 12.0-16.0 L [facility] HospitalHematocrit2019-08-04 06:26:00* Test Item Value Reference Range Interpretation Comments Hematocrit (test code = 4544-3) 30.4 34.2-44.1 L [facility] HospitalMean Corpuscular Vouiro5788-31-07 06:26:00* Test Item Value Reference Range Interpretation Comments Mean Corpuscular Volume (test code = 787-2) 81.3 81-99 [facility]Mean Corpuscular Hszixddkik1128-87-55 06:26:00* Test Item Value Reference Range Interpretation Comments Mean Corpuscular Hemoglobin (test code = 785-6) 24.9 28-32 L [facility] HospitalMean Corpuscular Hemoglobin Concent 2018-09-12 06:26:00* Test Item Value Reference Range Interpretation Comments Mean Corpuscular Hemoglobin Concent (test code = 786-4) 30.6 31-35 L [facility] HospitalRed Cell Distribution Mxnyo2220-45-90 06:26:00* Test Item Value Reference Range Interpretation Comments Red Cell Distribution Width (test code = 46185-2) 15.9 11.7 -14.4 H [facility] HospitalPlatelet Ycfpp1531-15-33 06:26:00* Test Item Value Reference Range Interpretation Comments Platelet Count (test code = 777-3) 279 140-360 [facility] HospitalNeutrophils (%) (Auto)2018-09-12 06:26:00 * Test Item Value Reference Range Interpretation Comments Neutrophils (%) (Auto) (test code = 63141-3) 73.2 38.7-80.0 [facility] HospitalLymphocytes (%) (Auto)2018-09-12 06:26:00 * Test Item Value Reference Range Interpretation Comments Lymphocytes (%) (Auto) (test code = 736-9) 19.2 18.0-39.1 [facility] HospitalMonocytes (%) (Auto)2018-09-12 06:26:00* Test Item Value Reference Range Interpretation Comments Monocytes (%) (Auto) (test code = 5905-5) 5.2 4.4-11.3 [facility] HospitalEosinophils (%) (Auto)2018-09-12 06:26:00 * Test Item Value Reference Range Interpretation Comments Eosinophils (%) (Auto) (test code = 713-8) 1.8 0.0-6.0 [facility] HospitalBasophils (%) (Auto)2018-09-12 06:26:00* Test Item Value Reference Range Interpretation Comments Basophils (%) (Auto) (test code = 706-2) 0.3 0.0-1.0 [facility] HospitalIM GRANULOCYTES %2018-09-12 06:26:00* Test Item Value Reference Range Interpretation Comments IM GRANULOCYTES % (test code = IM GRANULOCYTES %) 0.3 0.0- 1.0 [facility] HospitalNeutrophils # (Auto)2018-09-12 06:26:00* Test Item Value Reference Range Interpretation Comments Neutrophils # (Auto) (test code = 751-8) 6.9 2.1-6.9 [facility] HospitalLymphocytes # (Auto)2018-09-12 06:26:00* Test Item Value Reference Range Interpretation Comments Lymphocytes # (Auto) (test code = 28935-1) 1.8 1.0-3.2 [facility] HospitalMonocytes # (Auto)2018-09-12 06:26:00* Test Item Value Reference Range Interpretation Comments Monocytes # (Auto) (test code = 742-7) 0.5 0.2-0.8 [facility] HospitalEosinophils # (Auto)2018-09-12 06:26:00* Test Item Value Reference Range Interpretation Comments Eosinophils # (Auto) (test code = 711-2) 0.2 0.0-0.4 [facility] HospitalBasophils # (Auto)2018-09-12 06:26:00* Test Item Value Reference Range Interpretation Comments Basophils # (Auto) (test code = 704-7) 0.0 0.0-0.1 [facility] HospitalAbsolute Immature Granulocyte (auto 2018-09-12 06:26:00* Test Item Value Reference Range Interpretation Comments Absolute Immature Granulocyte (auto (irena t code = Absolute Immature Granulocyte (auto) 0.03 0-0.1 [facility] or plasma thyrotropin measurement by detection limit <= 0.005 miu/l (units/volume)2018-09-12 05:15:00* Test Item Value Reference Range Interpretation Comments Thyroid Stimulating Hormone (TSH) (test code = 45937-2) 2.374 0.350-4.940 [facility] Usecwvk0370-10-39 09:10:00* Test Item Value Reference Range Interpretation Comments Urine Culture (test code = 630-4) Organism: STAPHYLOCOCCUS AUREUS [facility] Kycofvm1383-18-80 09:10:00* Test Item Value Reference Range Interpretation Comments Urine Culture (test code = 630-4) Organism: STAPHYLOCOCCUS AUREUS [facility] Uimnsum4071-65-15 09:10:00* Test Item Value Reference Range Interpretation Comments Urine Culture (test code = 630-4) Organism: STAPHYLOCOCCUS AUREUS [facility] Barmpmk1933-03-16 09:10:00* Test Item Value Reference Range Interpretation Comments Urine Culture (test code = 630-4) No Result Data Provided [facility] Loyamhu6478-52-31 09:10:00* Test Item Value Reference Range Interpretation Comments Urine Culture (test code = 630-4) No Result Data Provided [facility] Bqkdjlsve4243-63-44 06:09:00* Test Item Value Reference Range Interpretation Comments Total Bilirubin (test code = 1975-2) 0.2 0.2-1.2 [facility] HospitalAspartate Amino Transf (AST/SGOT) 2018-09-10 06:09:00* Test Item Value Reference Range Interpretation Comments Aspartate Amino Transf (AST/SGOT) (test code = Aspartate Amino Transf (AST/SGOT)) 8 5-34 [facility] HospitalAlanine Aminotransferase (ALT/SGPT) 2018-09-10 06:09:00* Test Item Value Reference Range Interpretation Comments Alanine Aminotransferase (ALT/SGPT) (test code = 1742-6) 12 0-55 [facility] HospitalTotal Ffzvfcr3817-00-87 06:09:00* Test Item Value Reference Range Interpretation Comments Total Protein (test code = 2885-2) 7.5 6.5-8.1 [facility] HospitalAlbumin2019-08-02 06:09:00* Test Item Value Reference Range Interpretation Comments Albumin (test code = 1751-7) 2.9 3.5-5.0 L [facility] HospitalGlobulin2019-08-02 06:09:00* Test Item Value Reference Range Interpretation Comments Globulin (test code = 29606-1) 4.6 2.3-3.5 H [facility] HospitalAlbumin/Globulin Gqhmr3482-06-81 06:09:00 * Test Item Value Reference Range Interpretation Comments Albumin/Globulin Ratio (test code = 1759-0) 0.6 0.8-2.0 L [facility] HospitalAlkaline Mbzijyixohe6913-98-69 06:09:00* Test Item Value Reference Range Interpretation Comments Alkaline Phosphatase (test code = 6768-6) 95 40-150 [facility] HospitalTotal Gehzfbowc1693-85-69 06:09:00* Test Item Value Reference Range Interpretation Comments Total Bilirubin (test code = 1975-2) 0.2 0.2-1.2 [facility] HospitalAspartate Amino Transf (AST/SGOT) 2018-09-10 06:09:00* Test Item Value Reference Range Interpretation Comments Aspartate Amino Transf (AST/SGOT) (test code = Aspartate Amino Transf (AST/SGOT)) 8 5-34 [facility] HospitalAlanine Aminotransferase (ALT/SGPT) 2018-09-10 06:09:00* Test Item Value Reference Range Interpretation Comments Alanine Aminotransferase (ALT/SGPT) (test code = 1742-6) 12 0-55 [facility] HospitalTotal Olacero1802-51-64 06:09:00* Test Item Value Reference Range Interpretation Comments Total Protein (test code = 2885-2) 7.5 6.5-8.1 [facility] HospitalAlbumin2019-08-02 06:09:00* Test Item Value Reference Range Interpretation Comments Albumin (test code = 1751-7) 2.9 3.5-5.0 L [facility] HospitalGlobulin2019-08-02 06:09:00* Test Item Value Reference Range Interpretation Comments Globulin (test code = 87632-5) 4.6 2.3-3.5 H [facility] HospitalAlbumin/Globulin Dgwrk0050-55-82 06:09:00 * Test Item Value Reference Range Interpretation Comments Albumin/Globulin Ratio (test code = 1759-0) 0.6 0.8-2.0 L [facility] HospitalAlkaline Xhvuexizise6030-41-20 06:09:00* Test Item Value Reference Range Interpretation Comments Alkaline Phosphatase (test code = 6768-6) 95 40-150 [facility] HospitalTotal Obqgoovtr0199-13-84 06:09:00* Test Item Value Reference Range Interpretation Comments Total Bilirubin (test code = 1975-2) 0.2 0.2-1.2 [facility] HospitalAspartate Amino Transf (AST/SGOT) 2018-09-10 06:09:00* Test Item Value Reference Range Interpretation Comments Aspartate Amino Transf (AST/SGOT) (test code = Aspartate Amino Transf (AST/SGOT)) 8 5-34 [facility] HospitalAlanine Aminotransferase (ALT/SGPT) 2018-09-10 06:09:00* Test Item Value Reference Range Interpretation Comments Alanine Aminotransferase (ALT/SGPT) (test code = 1742-6) 12 0-55 [facility] HospitalTotal Sxqerlt5936-82-75 06:09:00* Test Item Value Reference Range Interpretation Comments Total Protein (test code = 2885-2) 7.5 6.5-8.1 [facility] HospitalAlbumin2019-08-02 06:09:00* Test Item Value Reference Range Interpretation Comments Albumin (test code = 1751-7) 2.9 3.5-5.0 L [facility] HospitalGlobulin2019-08-02 06:09:00* Test Item Value Reference Range Interpretation Comments Globulin (test code = 08249-9) 4.6 2.3-3.5 H [facility] HospitalAlbumin/Globulin Cqwxb5175-72-43 06:09:00 * Test Item Value Reference Range Interpretation Comments Albumin/Globulin Ratio (test code = 1759-0) 0.6 0.8-2.0 L [facility] HospitalAlkaline Lsfzparoymt0200-01-55 06:09:00* Test Item Value Reference Range Interpretation Comments Alkaline Phosphatase (test code = 6768-6) 95 40-150 [facility] Ppmizlnwd5567-92-06 06:09:00* Test Item Value Reference Range Interpretation Comments Total Bilirubin (test code = 1975-2) 0.2 0.2-1.2 [facility] HospitalAspartate Amino Transf (AST/SGOT) 2018-09-10 06:09:00* Test Item Value Reference Range Interpretation Comments Aspartate Amino Transf (AST/SGOT) (test code = Aspartate Amino Transf (AST/SGOT)) 8 5-34 [facility] HospitalAlanine Aminotransferase (ALT/SGPT) 2018-09-10 06:09:00* Test Item Value Reference Range Interpretation Comments Alanine Aminotransferase (ALT/SGPT) (test code = 1742-6) 12 0-55 [facility] Uouytaq1366-21-78 06:09:00* Test Item Value Reference Range Interpretation Comments Total Protein (test code = 2885-2) 7.5 6.5-8.1 [facility] HospitalAlbumin2019-08-02 06:09:00* Test Item Value Reference Range Interpretation Comments Albumin (test code = 1751-7) 2.9 3.5-5.0 L [facility] HospitalGlobulin2019-08-02 06:09:00* Test Item Value Reference Range Interpretation Comments Globulin (test code = 80338-3) 4.6 2.3-3.5 H [facility] HospitalAlbumin/Globulin Fuzgk2479-73-85 06:09:00 * Test Item Value Reference Range Interpretation Comments Albumin/Globulin Ratio (test code = 1759-0) 0.6 0.8-2.0 L [facility] HospitalAlkaline Bnchvolzegl0080-04-82 06:09:00* Test Item Value Reference Range Interpretation Comments Alkaline Phosphatase (test code = 6768-6) 95 40-150 [facility] Dxwjgaims9433-19-21 06:09:00* Test Item Value Reference Range Interpretation Comments Total Bilirubin (test code = 1975-2) 0.2 0.2-1.2 [facility]o Transf (AST/SGOT) 2018-09-10 06:09:00* Test Item Value Reference Range Interpretation Comments Aspartate Amino Transf (AST/SGOT) (test code = Aspartate Amino Transf (AST/SGOT)) 8 5-34 [facility]Alanine Aminotransferase (ALT/SGPT) 2018-09-10 06:09:00* Test Item Value Reference Range Interpretation Comments Alanine Aminotransferase (ALT/SGPT) (test code = 1742-6) 12 0-55 [facility] HospitalTotal Ucuxtym5083-09-47 06:09:00* Test Item Value Reference Range Interpretation Comments Total Protein (test code = 2885-2) 7.5 6.5-8.1 [facility]Albumin2019-08-[facility] 06:09:00* Test Item Value Reference Range Interpretation Comments Albumin (test code = 1751-7) 2.9 3.5-5.0 L [facility]Globulin2019-08-02 06:09:00* Test Item Value Reference Range Interpretation Comments Globulin (test code = 98659-0) 4.6 2.3-3.5 H [facility]Albumin/Globulin Drswh3606-11-15 06:09:00 * Test Item Value Reference Range Interpretation Comments Albumin/Globulin Ratio (test code = 1759-0) 0.6 0.8-2.0 L [facility] HospitalAlkaline Jkawtzynyqo9874-40-29 06:09:00* Test Item Value Reference Range Interpretation Comments Alkaline Phosphatase (test code = 6768-6) 95 40-150 [facility] HDJ8867-84-43 19:25:00* Test Item Value Reference Range Interpretation Comments Urine WBC (test code = 5821-4) 11-20 0-5 H [facility] ZQT6302-36-94 19:25:00* Test Item Value Reference Range Interpretation Comments Urine RBC (test code = 65104-7) 6-10 0-5 H [facility] Mqpvsaxg6541-29-68 19:25:00* Test Item Value Reference Range Interpretation Comments Urine Bacteria (test code = 35994-4) MANY NONE H [facility] Epithelial Jogdr1923-30-89 19:25:00 * Test Item Value Reference Range Interpretation Comments Urine Epithelial Cells (test code = 91173-2) NONE NONE [facility] Amorphous Ofxggvgx7401-41-66 19:25:00* Test Item Value Reference Range Interpretation Comments Urine Amorphous Sediment (test code = 8246-1) MODERATE FEW H [facility] QGX0160-97-06 19:25:00* Test Item Value Reference Range Interpretation Comments Urine WBC (test code = 5821-4) 11-20 0-5 H [facility] PKN5822-51-45 19:25:00* Test Item Value Reference Range Interpretation Comments Urine RBC (test code = 39741-5) 6-10 0-5 H [facility] Ivndafjv1127-96-43 19:25:00* Test Item Value Reference Range Interpretation Comments Urine Bacteria (test code = 18793-0) MANY NONE H [facility] Epithelial Wyczr2503-21-34 19:25:00 * Test Item Value Reference Range Interpretation Comments Urine Epithelial Cells (test code = 36866-5) NONE NONE [facility] Amorphous Jyjxcisl8261-37-85 19:25:00* Test Item Value Reference Range Interpretation Comments Urine Amorphous Sediment (test code = 8246-1) MODERATE FEW H [facility] VIJ0561-53-51 19:25:00* Test Item Value Reference Range Interpretation Comments Urine WBC (test code = 5821-4) 11-20 0-5 H [facility] JRB1545-19-58 19:25:00* Test Item Value Reference Range Interpretation Comments Urine RBC (test code = 92121-9) 6-10 0-5 H [facility] Kyyocecw8047-59-23 19:25:00* Test Item Value Reference Range Interpretation Comments Urine Bacteria (test code = 36625-2) MANY NONE H [facility] Epithelial Ezagn4108-39-84 19:25:00 * Test Item Value Reference Range Interpretation Comments Urine Epithelial Cells (test code = 51507-6) NONE NONE [facility] Amorphous Rjbnrxof6744-31-81 19:25:00* Test Item Value Reference Range Interpretation Comments Urine Amorphous Sediment (test code = 8246-1) MODERATE FEW H [facility] Filag6689-77-99 19:22:00* Test Item Value Reference Range Interpretation Comments Urine Color (test code = 5778-6) OTHER YELLOW PINKMethodist McKinney HospitalUrine Zcdua3495-39-05 19:22:00* Test Item Value Reference Range Interpretation Comments Urine Color (test code = 5778-6) [facility] Qhcks7491-43-93 19:22:00* Test Item Value Reference Range Interpretation Comments Urine Color (test code = 5778-6) OTHER YELLOW PINKMethodist McKinney HospitalUrine Dffewqd9685-88-34 19:16:00* Test Item Value Reference Range Interpretation Comments Urine Clarity (test code = 80756-9) SL CLOUDY CLEAR [facility] Specific Cuxwwpv6007-24-60 19:16:00 * Test Item Value Reference Range Interpretation Comments Urine Specific [place] (test code = 5811-5) 1.010 1.010-1.02 5 [facility] sF9010-67-50 19:16:00* Test Item Value Reference Range Interpretation Comments Urine pH (test code = 58297-8) 6 5-7 [facility] Leukocyte Dkmjyzwq7409-66-22 19:16:00* Test Item Value Reference Range Interpretation Comments Urine Leukocyte Esterase (test code = 75093-6) LARGE NEGATIV E [facility] Kdxjdvi7642-04-71 19:16:00* Test Item Value Reference Range Interpretation Comments Urine Nitrite (test code = 18258-8) NEGATIVE NEGATIVE [facility] Bhlzxzr5629-18-51 19:16:00* Test Item Value Reference Range Interpretation Comments Urine Protein (test code = 22154-8) NEGATIVE NEGATIVE [facility] Glucose (UA)2018-09-09 19:16:00* Test Item Value Reference Range Interpretation Comments Urine Glucose (UA) (test code = 08152-4) NEGATIVE NEGATIVE [facility] Rvtaxjq8133-06-35 19:16:00* Test Item Value Reference Range Interpretation Comments Urine Ketones (test code = 30343-1) NEGATIVE NEGATIVE [facility] Mgsaauyacmmj6993-29-49 19:16:00* Test Item Value Reference Range Interpretation Comments Urine Urobilinogen (test code = 11319-2) 0.2 0.2-1 [facility] Pbivcofvv9458-18-38 19:16:00* Test Item Value Reference Range Interpretation Comments Urine Bilirubin (test code = 1977-8) NEGATIVE NEGATIVE [facility] Fxoso0509-78-93 19:16:00* Test Item Value Reference Range Interpretation Comments Urine Blood (test code = 38448-1) 3+ NEGATIVE [facility] Emmthxw4687-04-71 19:16:00* Test Item Value Reference Range Interpretation Comments Urine Clarity (test code = 79180-0) SL CLOUDY CLEAR [facility] Specific Ycqqfkh6181-69-06 19:16:00 * Test Item Value Reference Range Interpretation Comments Urine Specific [place] (test code = 5811-5) 1.010 1.010-1.02 5 [facility] dH7635-07-78 19:16:00* Test Item Value Reference Range Interpretation Comments Urine pH (test code = 03128-2) 6 5-7 [facility] Leukocyte Nanjimfe7122-20-93 19:16:00* Test Item Value Reference Range Interpretation Comments Urine Leukocyte Esterase (test code = 78385-1) LARGE NEGATIV E [facility] Nzobkir9899-00-19 19:16:00* Test Item Value Reference Range Interpretation Comments Urine Nitrite (test code = 26420-6) NEGATIVE NEGATIVE [facility] Zsqxsbj2394-34-13 19:16:00* Test Item Value Reference Range Interpretation Comments Urine Protein (test code = 71875-9) NEGATIVE NEGATIVE [facility] Glucose (UA)2018-09-09 19:16:00* Test Item Value Reference Range Interpretation Comments Urine Glucose (UA) (test code = 25999-6) NEGATIVE NEGATIVE [facility] Hewtore7468-65-64 19:16:00* Test Item Value Reference Range Interpretation Comments Urine Ketones (test code = 05682-4) NEGATIVE NEGATIVE [facility] Pxedczgxotpy4419-41-24 19:16:00* Test Item Value Reference Range Interpretation Comments Urine Urobilinogen (test code = 40637-0) 0.2 0.2-1 [facility] Dsamrahds2267-53-52 19:16:00* Test Item Value Reference Range Interpretation Comments Urine Bilirubin (test code = 1977-8) NEGATIVE NEGATIVE [facility] Pncuv3371-25-11 19:16:00* Test Item Value Reference Range Interpretation Comments Urine Blood (test code = 55899-1) 3+ NEGATIVE [facility] Mpstfde2430-45-72 19:16:00* Test Item Value Reference Range Interpretation Comments Urine Clarity (test code = 30323-8) SL CLOUDY CLEAR [facility] Specific Nngluie1752-29-13 19:16:00 * Test Item Value Reference Range Interpretation Comments Urine Specific [place] (test code = 5811-5) 1.010 1.010-1.02 5 [facility] uL5456-09-00 19:16:00* Test Item Value Reference Range Interpretation Comments Urine pH (test code = 21696-2) 6 5-7 [facility] Leukocyte Ktvcucta8863-34-41 19:16:00* Test Item Value Reference Range Interpretation Comments Urine Leukocyte Esterase (test code = 21492-8) LARGE NEGATIV E [facility] Gsntoju8616-03-16 19:16:00* Test Item Value Reference Range Interpretation Comments Urine Nitrite (test code = 29519-2) NEGATIVE NEGATIVE [facility] Bshdmvq0299-43-02 19:16:00* Test Item Value Reference Range Interpretation Comments Urine Protein (test code = 70008-1) NEGATIVE NEGATIVE [facility] Glucose (UA)2018-09-09 19:16:00* Test Item Value Reference Range Interpretation Comments Urine Glucose (UA) (test code = 82439-7) NEGATIVE NEGATIVE [facility] Wmtmwcp5198-24-50 19:16:00* Test Item Value Reference Range Interpretation Comments Urine Ketones (test code = 30853-6) NEGATIVE NEGATIVE [facility] Mjsnxfgewhxt4929-30-51 19:16:00* Test Item Value Reference Range Interpretation Comments Urine Urobilinogen (test code = 29109-7) 0.2 0.2-1 [facility] Kdcuxwulq9119-11-27 19:16:00* Test Item Value Reference Range Interpretation Comments Urine Bilirubin (test code = 1977-8) NEGATIVE NEGATIVE [facility] Fzjjt7096-75-09 19:16:00* Test Item Value Reference Range Interpretation Comments Urine Blood (test code = 10819-6) 3+ NEGATIVE [facility] ([facility]UB)2018-09-09 18:34:00 [facility] [address] [address] Patient Name: WESLY HUTCHINSON MR #: [id number] : Age/Sex: 57/F Req #: [id number] Adm Physician: Ordered by: ASHA BARDALES TUBE WASHER Report #: [id number] Location: ER Room/Bed: Procedure: 0801-0 054 DX/ABDOMEN-1VIEW [...] ASHA BARDALES NP SPECIAL PROCEDURE IN CATH RXL3592-90-58 14:18:00 [address] [place] [address] Patient Name: WESLY HUTCHINSON MR #: [id number] : Age/Sex: 57/F Req #: [id number] Adm Physician: Ordered by: JARET ESPINOSA MD Report #: [id number] Location: MARKETING TRAFFIC COORDINATOR Room/Bed: Procedure: 9841-1070 I R/SPECIAL PROCEDURE IN MARKETING TRAFFIC COORDINATOR Exam Date: Exam Kirk e: REPORT STATUS: [...] Minimal Blood products administered: None Specimens: 10 [place] percutaneous nephrostomy catheter, discarded Implants/grafts: 10 [place] percutaneous nephrostomy catheter Condition at completion: Stable Dispo sition: Catheter lab holding area for recovery Complications: No immediate Procedure in detail: Informed consent was obtained and documented in the ar dical record after discussion of risks and [...] pelvi s. The catheter was then exchanged [id number] for a new 10 [place] locking loop percutaneous nephrostomy catheter. The wire [...] complication. CONCLUSION: Successful exchange of a 10 [place] locking loop right percutaneous n ephrostomy catheter [...] Bea d By: OSIEL SULLIVAN MD on 08/16/188 Transcribed By: SUSHANT on 08/16/18 1418 COPY TO: JARET ESPINOSA MD Human Chorionic Gonadotropin, On License Of [facility] 2018-08-06 11:36:00* Test Item Value Reference Range Interpretation Comments Human Chorionic Gonadotropin, Qual (test code = 2118-8) NEGATIVE NEGATIVE [facility] Chorionic Gonadotropin, On License Of [facility] 2018-08-06 11:36:00* Test Item Value Reference Range Interpretation Comments Human Chorionic Gonadotropin, Qual (test code = 2118-8) NEGATIVE NEGATIVE [facility] Chorionic Gonadotropin, On License Of [facility] 2018-08-06 11:36:00* Test Item Value Reference Range Interpretation Comments Human Chorionic Gonadotropin, Qual (test code = 2118-8) NEGATIVE NEGATIVE [facility] Chorionic Gonadotropin, On License Of [facility] 2018-08-06 11:36:00* Test Item Value Reference Range Interpretation Comments Human Chorionic Gonadotropin, Qual (test code = 2118-8) NEGATIVE NEGATIVE [facility] Chorionic Gonadotropin, On License Of [facility] 2018-08-06 11:36:00* Test Item Value Reference Range Interpretation Comments Human Chorionic Gonadotropin, Qual (test code = 2118-8) NEGATIVE NEGATIVE [facility] Chorionic Gonadotropin, On License Of [facility] 2018-08-06 11:36:00* Test Item Value Reference Range Interpretation Comments Human Chorionic Gonadotropin, Qual (test code = 2118-8) NEGATIVE NEGATIVE [facility] Chorionic Gonadotropin, On License Of [facility] 2018-08-06 11:36:00* Test Item Value Reference Range Interpretation Comments Human Chorionic Gonadotropin, Qual (test code = 2118-8) NEGATIVE NEGATIVE [facility] Fofxxfq9818-69-66 14:16:00* Test Item Value Reference Range Interpretation Comments Urine Culture (test code = 630-4) Organism: ENTEROCOCCUS FAECIUM-VR E [facility] Tiibtda1884-24-81 13:57:00* Test Item Value Reference Range Interpretation Comments Urine Culture (test code = 630-4) Organism: ENTEROCOCCUS FAECIUM-VR E [facility] Kpgdgmb5863-50-43 13:57:00* Test Item Value Reference Range Interpretation Comments Urine Culture (test code = 630-4) Organism: ENTEROCOCCUS FAECIUM-VR E [facility] Sqaweuz8325-94-12 13:57:00* Test Item Value Reference Range Interpretation Comments Urine Culture (test code = 630-4) Organism: ENTEROCOCCUS FAECIUM-VR E [facility] Bdgtusk2278-56-19 13:57:00* Test Item Value Reference Range Interpretation Comments Urine Culture (test code = 630-4) Organism: ENTEROCOCCUS FAECIUM-VR E [facility] Dribczg2205-53-11 13:57:00* Test Item Value Reference Range Interpretation Comments Urine Culture (test code = 630-4) No Result Data Provided [facility] Inbszjj5302-20-78 13:57:00* Test Item Value Reference Range Interpretation Comments Urine Culture (test code = 630-4) No Result Data Provided [facility] EHZ5719-57-34 17:43:00* Test Item Value Reference Range Interpretation Comments Urine WBC (test code = 5821-4) 11-20 0-5 H [facility] CWD0124-13-26 17:43:00* Test Item Value Reference Range Interpretation Comments Urine RBC (test code = 66186-3) 6-10 0-5 H [facility] Vgxifhwn6167-86-72 17:43:00* Test Item Value Reference Range Interpretation Comments Urine Bacteria (test code = 19537-4) MODERATE NONE H [facility] Epithelial Awlqi7245-22-63 17:43:00 * Test Item Value Reference Range Interpretation Comments Urine Epithelial Cells (test code = 39184-4) NONE NONE [facility] Amorphous Jptilmiw6065-57-63 17:43:00* Test Item Value Reference Range Interpretation Comments Urine Amorphous Sediment (test code = 8246-1) MODERATE FEW H [facility] ZJP6796-73-74 17:43:00* Test Item Value Reference Range Interpretation Comments Urine WBC (test code = 5821-4) 11-20 0-5 H [facility] KIW9575-62-76 17:43:00* Test Item Value Reference Range Interpretation Comments Urine RBC (test code = 26146-5) 6-10 0-5 H [facility] Iaxufcxd9385-42-86 17:43:00* Test Item Value Reference Range Interpretation Comments Urine Bacteria (test code = 91776-4) MODERATE NONE H [facility] Epithelial Rnysq8730-91-80 17:43:00 * Test Item Value Reference Range Interpretation Comments Urine Epithelial Cells (test code = 38576-5) NONE NONE [facility] Amorphous Wcprthij0535-49-97 17:43:00* Test Item Value Reference Range Interpretation Comments Urine Amorphous Sediment (test code = 8246-1) MODERATE FEW H [facility] Zdnim6126-26-69 17:29:00* Test Item Value Reference Range Interpretation Comments Urine Color (test code = 5778-6) YELLOW YELLOW [facility] Hpvugye4224-71-74 17:29:00* Test Item Value Reference Range Interpretation Comments Urine Clarity (test code = 73058-3) CLEAR CLEAR [facility] Specific Bnydqjo9945-26-19 17:29:00 * Test Item Value Reference Range Interpretation Comments Urine Specific [place] (test code = 5811-5) <=1.005 1.010-1.02 5 [facility] mK5284-49-10 17:29:00* Test Item Value Reference Range Interpretation Comments Urine pH (test code = 96087-7) 7.5 5-7 [facility] Leukocyte Eaxvebai2891-79-11 17:29:00* Test Item Value Reference Range Interpretation Comments Urine Leukocyte Esterase (test code = 38891-8) LARGE NEGATIV E [facility] Oaqadxb1759-57-38 17:29:00* Test Item Value Reference Range Interpretation Comments Urine Nitrite (test code = 02269-3) NEGATIVE NEGATIVE [facility] Fbivhxe1090-94-65 17:29:00* Test Item Value Reference Range Interpretation Comments Urine Protein (test code = 08567-7) 1+ NEGATIVE H [facility] Glucose (UA)2018-07-19 17:29:00* Test Item Value Reference Range Interpretation Comments Urine Glucose (UA) (test code = 55905-4) NEGATIVE NEGATIVE [facility] Kzrhlmg6499-45-70 17:29:00* Test Item Value Reference Range Interpretation Comments Urine Ketones (test code = 85996-9) NEGATIVE NEGATIVE [facility] Bpbnblxlragb1659-67-30 17:29:00* Test Item Value Reference Range Interpretation Comments Urine Urobilinogen (test code = 80289-9) 0.2 0.2-1 [facility] Nowuqvufn2199-41-45 17:29:00* Test Item Value Reference Range Interpretation Comments Urine Bilirubin (test code = 1977-8) NEGATIVE NEGATIVE [facility] Nokwe7306-80-13 17:29:00* Test Item Value Reference Range Interpretation Comments Urine Blood (test code = 92458-9) 3+ NEGATIVE [facility] Jlsrb0224-58-75 17:29:00* Test Item Value Reference Range Interpretation Comments Urine Color (test code = 5778-6) YELLOW YELLOW [facility] Dkbprvt2358-01-61 17:29:00* Test Item Value Reference Range Interpretation Comments Urine Clarity (test code = 36061-7) CLEAR CLEAR [facility] Specific Nbbewpl2966-43-51 17:29:00 * Test Item Value Reference Range Interpretation Comments Urine Specific [place] (test code = 5811-5) <=1.005 1.010-1.02 5 [facility] rU3908-85-59 17:29:00* Test Item Value Reference Range Interpretation Comments Urine pH (test code = 41960-0) 7.5 5-7 [facility] Leukocyte Nsxjwwry4752-15-35 17:29:00* Test Item Value Reference Range Interpretation Comments Urine Leukocyte Esterase (test code = 87541-5) LARGE NEGATIV E [facility] Qnanxum2247-45-53 17:29:00* Test Item Value Reference Range Interpretation Comments Urine Nitrite (test code = 31939-5) NEGATIVE NEGATIVE [facility] Gxnivjv9740-89-40 17:29:00* Test Item Value Reference Range Interpretation Comments Urine Protein (test code = 03249-9) 1+ NEGATIVE H [facility] Glucose (UA)2018-07-19 17:29:00* Test Item Value Reference Range Interpretation Comments Urine Glucose (UA) (test code = 86994-2) NEGATIVE NEGATIVE [facility] Zcbwxrw0130-79-65 17:29:00* Test Item Value Reference Range Interpretation Comments Urine Ketones (test code = 28445-6) NEGATIVE NEGATIVE [facility] Mdfczhyaklcs9858-53-60 17:29:00* Test Item Value Reference Range Interpretation Comments Urine Urobilinogen (test code = 67881-1) 0.2 0.2-1 [facility] Xjvkjdrrt4638-65-81 17:29:00* Test Item Value Reference Range Interpretation Comments Urine Bilirubin (test code = 1977-8) NEGATIVE NEGATIVE [facility] Golci8493-79-41 17:29:00* Test Item Value Reference Range Interpretation Comments Urine Blood (test code = 41373-0) 3+ NEGATIVE [facility] Hyaline Jtkwv8222-75-85 17:10:00* Test Item Value Reference Range Interpretation Comments Urine Hyaline Casts (test code = 40255-2) 0-1 0-1 [facility] Hyaline Mjovv2829-87-97 17:10:00* Test Item Value Reference Range Interpretation Comments Urine Hyaline Casts (test code = 74128-3) 0-1 0-1 [facility] Hyaline Pgvfa5337-27-92 17:10:00* Test Item Value Reference Range Interpretation Comments Urine Hyaline Casts (test code = 13424-8) 0-1 0-1 [facility] Hyaline Spspn7552-98-56 17:10:00* Test Item Value Reference Range Interpretation Comments Urine Hyaline Casts (test code = 03476-7) 0-1 0-1 [facility] Hyaline Nbgno1961-76-67 17:10:00* Test Item Value Reference Range Interpretation Comments Urine Hyaline Casts (test code = 76851-2) 0-1 0-1 [facility] Hyaline Jktok3579-63-66 17:10:00* Test Item Value Reference Range Interpretation Comments Urine Hyaline Casts (test code = 15132-1) 0-1 0-1 [facility] Hyaline Ybrra4352-51-96 17:10:00* Test Item Value Reference Range Interpretation Comments Urine Hyaline Casts (test code = 29948-8) 0-1 0-1 [facility] Hyaline Sovec0757-55-02 17:10:00* Test Item Value Reference Range Interpretation Comments Urine Hyaline Casts (test code = 74319-6) 0-1 0-1 [facility] Hyaline Byvpu6639-62-97 17:10:00* Test Item Value Reference Range Interpretation Comments Urine Hyaline Casts (test code = 97555-5) 0-1 0-1 [facility] Jchya5625-24-53 16:53:00* Test Item Value Reference Range Interpretation Comments Sodium Level (test code = 2951-2) 134 136-145 L [facility] Mcblc7581-95-41 16:53:00* Test Item Value Reference Range Interpretation Comments Potassium Level (test code = 2823-3) 4.6 3.5-5.1 [facility] HospitalChloride Ihzxz7743-74-17 16:53:00* Test Item Value Reference Range Interpretation Comments Chloride Level (test code = 2075-0) 105 98-107 [facility] HospitalCarbon Dioxide Dtvso1064-50-97 16:53:00* Test Item Value Reference Range Interpretation Comments Carbon Dioxide Level (test code = 2028-9) 21 22-29 L [facility] HospitalAnion Nzo4428-17-07 16:53:00* Test Item Value Reference Range Interpretation Comments Anion Gap (test code = 77139-4) 12.6 8-16 [facility] Urea Lgnqhhks7064-90-63 16:53:00* Test Item Value Reference Range Interpretation Comments Blood Urea Nitrogen (test code = 3094-0) 18 7-26 [facility] HospitalCreatinine2019-06-10 16:53:00* Test Item Value Reference Range Interpretation Comments Creatinine (test code = 2160-0) 1.32 0.57-1.11 H [facility]BUN/Creatinine Smxhm9841-08-90 16:53:00* Test Item Value Reference Range Interpretation Comments BUN/Creatinine Ratio (test code = 3097-3) 14 6-25 [facility] HospitalEstimat Glomerular Filtration Rate 2018-07-19 16:53:00* Test Item Value Reference Range Interpretation Comments Estimat Glomerular Filtration Rate (test code = 693763790) 42 >60 L Ranges were taken from the National Kidney Disease Education Program and the [facility] literature.Reference ranges:60 or greater: Gizoxw57-85 ( for 3 consecutive months): Chronic kidney disease 15 or less: Kidney failureMethodist McKinney HospitalGlucose Bekpq0254-62-65 16:53:00* Test Item Value Reference Range Interpretation Comments Glucose Level (test code = FXW5234) 147 74-118 H [facility] HospitalCalcium Eivwl6496-70-27 16:53:00* Test Item Value Reference Range Interpretation Comments Calcium Level (test code = 22321-4) 9.8 8.4-10.2 [facility] Abjup5724-95-36 16:53:00* Test Item Value Reference Range Interpretation Comments Sodium Level (test code = 2951-2) 134 136-145 L [facility] HospitalPotassium Xpnaz0745-86-60 16:53:00* Test Item Value Reference Range Interpretation Comments Potassium Level (test code = 2823-3) 4.6 3.5-5.1 [facility] HospitalChloride Pqtij3525-31-31 16:53:00* Test Item Value Reference Range Interpretation Comments Chloride Level (test code = 2075-0) 105 98-107 [facility] HospitalCarbon Dioxide Sbkya8585-63-57 16:53:00* Test Item Value Reference Range Interpretation Comments Carbon Dioxide Level (test code = 2028-9) 21 22-29 L [facility] HospitalAnion Gxx7904-88-06 16:53:00* Test Item Value Reference Range Interpretation Comments Anion Gap (test code = 05142-1) 12.6 8-16 [facility] HospitalBlood Urea Lndvjjdo9976-37-70 16:53:00* Test Item Value Reference Range Interpretation Comments Blood Urea Nitrogen (test code = 3094-0) 18 7-26 [facility] HospitalCreatinine2019-06-10 16:53:00* Test Item Value Reference Range Interpretation Comments Creatinine (test code = 2160-0) 1.32 0.57-1.11 H [facility] HospitalBUN/Creatinine Spats7180-63-78 16:53:00* Test Item Value Reference Range Interpretation Comments BUN/Creatinine Ratio (test code = 3097-3) 14 6-25 [facility] HospitalEstimat Glomerular Filtration Rate 2018-07-19 16:53:00* Test Item Value Reference Range Interpretation Comments Estimat Glomerular Filtration Rate (test code = 283921376) 42 >60 L Ranges were taken from the National Kidney Disease Education Program and the [facility] literature.Reference ranges:60 or greater: Oktjpe05-98 ( for 3 consecutive months): Chronic kidney disease 15 or less: Kidney failureMethodist McKinney HospitalGlucose Vgrpx9758-64-95 16:53:00* Test Item Value Reference Range Interpretation Comments Glucose Level (test code = GDO8202) 147 74-118 H [facility] HospitalCalcium Esqxl0036-46-48 16:53:00* Test Item Value Reference Range Interpretation Comments Calcium Level (test code = 86316-1) 9.8 8.4-10.2 [facility] HospitalWhite Blood Xpgzg7095-66-48 16:46:00* Test Item Value Reference Range Interpretation Comments White Blood Count (test code = 6690-2) 8.52 4.8-10.8 [facility] HospitalRed Blood Atnlh2253-24-46 16:46:00* Test Item Value Reference Range Interpretation Comments Red Blood Count (test code = 789-8) 4.04 3.6-5.1 [facility] HospitalHemoglobin2019-06-10 16:46:00* Test Item Value Reference Range Interpretation Comments Hemoglobin (test code = 77119-9) 10.2 12.0-16.0 L [facility] HospitalHematocrit2019-06-10 16:46:00* Test Item Value Reference Range Interpretation Comments Hematocrit (test code = 4544-3) 33.7 34.2-44.1 L [facility] HospitalMean Corpuscular Ziosya2165-36-79 16:46:00* Test Item Value Reference Range Interpretation Comments Mean Corpuscular Volume (test code = 787-2) 83.4 81-99 [facility] HospitalMean Corpuscular Kirenhtxuf5737-14-74 16:46:00* Test Item Value Reference Range Interpretation Comments Mean Corpuscular Hemoglobin (test code = 785-6) 25.2 28-32 L [facility] HospitalMean Corpuscular Hemoglobin Concent 2018-07-19 16:46:00* Test Item Value Reference Range Interpretation Comments Mean Corpuscular Hemoglobin Concent (test code = 786-4) 30.3 31-35 L [facility] HospitalRed Cell Distribution Utefv5855-72-25 16:46:00* Test Item Value Reference Range Interpretation Comments Red Cell Distribution Width (test code = 35535-8) 16.1 11.7 -14.4 H [facility] HospitalPlatelet Utslg0844-30-77 16:46:00* Test Item Value Reference Range Interpretation Comments Platelet Count (test code = 777-3) 276 140-360 [facility] HospitalNeutrophils (%) (Auto)2018-07-19 16:46:00 * Test Item Value Reference Range Interpretation Comments Neutrophils (%) (Auto) (test code = 12037-0) 68.2 38.7-80.0 [facility] HospitalLymphocytes (%) (Auto)2018-07-19 16:46:00 * Test Item Value Reference Range Interpretation Comments Lymphocytes (%) (Auto) (test code = 736-9) 22.7 18.0-39.1 [facility] HospitalMonocytes (%) (Auto)2018-07-19 16:46:00* Test Item Value Reference Range Interpretation Comments Monocytes (%) (Auto) (test code = 5905-5) 5.4 4.4-11.3 [facility] HospitalEosinophils (%) (Auto)2018-07-19 16:46:00 * Test Item Value Reference Range Interpretation Comments Eosinophils (%) (Auto) (test code = 713-8) 2.3 0.0-6.0 [facility] HospitalBasophils (%) (Auto)2018-07-19 16:46:00* Test Item Value Reference Range Interpretation Comments Basophils (%) (Auto) (test code = 706-2) 0.8 0.0-1.0 [facility] HospitalIM GRANULOCYTES %2018-07-19 16:46:00* Test Item Value Reference Range Interpretation Comments IM GRANULOCYTES % (test code = IM GRANULOCYTES %) 0.6 0.0- 1.0 [facility] HospitalNeutrophils # (Auto)2018-07-19 16:46:00* Test Item Value Reference Range Interpretation Comments Neutrophils # (Auto) (test code = 751-8) 5.8 2.1-6.9 [facility] HospitalLymphocytes # (Auto)2018-07-19 16:46:00* Test Item Value Reference Range Interpretation Comments Lymphocytes # (Auto) (test code = 90578-2) 1.9 1.0-3.2 [facility] HospitalMonocytes # (Auto)2018-07-19 16:46:00* Test Item Value Reference Range Interpretation Comments Monocytes # (Auto) (test code = 742-7) 0.5 0.2-0.8 [facility] HospitalEosinophils # (Auto)2018-07-19 16:46:00* Test Item Value Reference Range Interpretation Comments Eosinophils # (Auto) (test code = 711-2) 0.2 0.0-0.4 [facility] HospitalBasophils # (Auto)2018-07-19 16:46:00* Test Item Value Reference Range Interpretation Comments Basophils # (Auto) (test code = 704-7) 0.1 0.0-0.1 [facility] HospitalAbsolute Immature Granulocyte (auto 2018-07-19 16:46:00* Test Item Value Reference Range Interpretation Comments Absolute Immature Granulocyte (auto (irena t code = Absolute Immature Granulocyte (auto) 0.05 0-0.1 [facility] HospitalWhite Blood Jvudb1987-26-17 16:46:00* Test Item Value Reference Range Interpretation Comments White Blood Count (test code = 6690-2) 8.52 4.8-10.8 [facility] HospitalRed Blood Lzclq5339-42-38 16:46:00* Test Item Value Reference Range Interpretation Comments Red Blood Count (test code = 789-8) 4.04 3.6-5.1 [facility] HospitalHemoglobin2019-06-10 16:46:00* Test Item Value Reference Range Interpretation Comments Hemoglobin (test code = 03386-9) 10.2 12.0-16.0 L [facility] HospitalHematocrit2019-06-10 16:46:00* Test Item Value Reference Range Interpretation Comments Hematocrit (test code = 4544-3) 33.7 34.2-44.1 L [facility] HospitalMean Corpuscular Qxelgl5595-52-78 16:46:00* Test Item Value Reference Range Interpretation Comments Mean Corpuscular Volume (test code = 787-2) 83.4 81-99 [facility] HospitalMean Corpuscular Yhlasoqvcq5872-29-76 16:46:00* Test Item Value Reference Range Interpretation Comments Mean Corpuscular Hemoglobin (test code = 785-6) 25.2 28-32 L [facility] HospitalMean Corpuscular Hemoglobin Concent 2018-07-19 16:46:00* Test Item Value Reference Range Interpretation Comments Mean Corpuscular Hemoglobin Concent (test code = 786-4) 30.3 31-35 L [facility] HospitalRed Cell Distribution Zwpbu9340-57-07 16:46:00* Test Item Value Reference Range Interpretation Comments Red Cell Distribution Width (test code = 88971-3) 16.1 11.7 -14.4 H [facility] HospitalPlatelet Wntjh5035-25-98 16:46:00* Test Item Value Reference Range Interpretation Comments Platelet Count (test code = 777-3) 276 140-360 [facility] HospitalNeutrophils (%) (Auto)2018-07-19 16:46:00 * Test Item Value Reference Range Interpretation Comments Neutrophils (%) (Auto) (test code = 92541-8) 68.2 38.7-80.0 [facility] HospitalLymphocytes (%) (Auto)2018-07-19 16:46:00 * Test Item Value Reference Range Interpretation Comments Lymphocytes (%) (Auto) (test code = 736-9) 22.7 18.0-39.1 [facility] HospitalMonocytes (%) (Auto)2018-07-19 16:46:00* Test Item Value Reference Range Interpretation Comments Monocytes (%) (Auto) (test code = 5905-5) 5.4 4.4-11.3 [facility] HospitalEosinophils (%) (Auto)2018-07-19 16:46:00 * Test Item Value Reference Range Interpretation Comments Eosinophils (%) (Auto) (test code = 713-8) 2.3 0.0-6.0 [facility] HospitalBasophils (%) (Auto)2018-07-19 16:46:00* Test Item Value Reference Range Interpretation Comments Basophils (%) (Auto) (test code = 706-2) 0.8 0.0-1.0 [facility] HospitalIM GRANULOCYTES %2018-07-19 16:46:00* Test Item Value Reference Range Interpretation Comments IM GRANULOCYTES % (test code = IM GRANULOCYTES %) 0.6 0.0- 1.0 [facility] HospitalNeutrophils # (Auto)2018-07-19 16:46:00* Test Item Value Reference Range Interpretation Comments Neutrophils # (Auto) (test code = 751-8) 5.8 2.1-6.9 [facility] HospitalLymphocytes # (Auto)2018-07-19 16:46:00* Test Item Value Reference Range Interpretation Comments Lymphocytes # (Auto) (test code = 92303-5) 1.9 1.0-3.2 [facility] HospitalMonocytes # (Auto)2018-07-19 16:46:00* Test Item Value Reference Range Interpretation Comments Monocytes # (Auto) (test code = 742-7) 0.5 0.2-0.8 [facility] HospitalEosinophils # (Auto)2018-07-19 16:46:00* Test Item Value Reference Range Interpretation Comments Eosinophils # (Auto) (test code = 711-2) 0.2 0.0-0.4 [facility] HospitalBasophils # (Auto)2018-07-19 16:46:00* Test Item Value Reference Range Interpretation Comments Basophils # (Auto) (test code = 704-7) 0.1 0.0-0.1 [facility] HospitalAbsolute Immature Granulocyte (auto 2018-07-19 16:46:00* Test Item Value Reference Range Interpretation Comments Absolute Immature Granulocyte (auto (irena t code = Absolute Immature Granulocyte (auto) 0.05 0-0.1 [facility] HospitalUrine Zsmnkoe5851-46-97 08:24:00* Test Item Value Reference Range Interpretation Comments Urine Culture (test code = 630-4) Organism: ENTEROCOCCUS FAECIUM [facility] HospitalUrine Xovslvv9655-19-96 08:24:00* Test Item Value Reference Range Interpretation Comments Urine Culture (test code = 630-4) Organism: ENTEROCOCCUS FAECIUM [facility] HospitalUrine Pvqfbrs1818-82-19 08:24:00* Test Item Value Reference Range Interpretation Comments Urine Culture (test code = 630-4) Organism: ENTEROCOCCUS FAECIUM [facility] Rdweyjm7196-68-01 08:24:00* Test Item Value Reference Range Interpretation Comments Urine Culture (test code = 630-4) Organism: ENTEROCOCCUS FAECIUM [facility] Jbivaxh7607-57-01 08:24:00* Test Item Value Reference Range Interpretation Comments Urine Culture (test code = 630-4) Organism: ENTEROCOCCUS FAECIUM [facility] Lnybobp2917-06-08 08:24:00* Test Item Value Reference Range Interpretation Comments Urine Culture (test code = 630-4) No Result Data Provided [facility] Fcgcdca0977-74-36 08:24:00* Test Item Value Reference Range Interpretation Comments Urine Culture (test code = 630-4) No Result Data Provided [facility] Qrpnr8442-61-73 18:38:00* Test Item Value Reference Range Interpretation Comments Urine Color (test code = 5778-6) RED YELLOW [facility] HospitalUrine Tlhvlkh3572-34-62 18:38:00* Test Item Value Reference Range Interpretation Comments Urine Clarity (test code = 43645-1) CLOUDY CLEAR H [facility] HospitalUrine Specific Kshtuex8602-47-72 18:38:00 * Test Item Value Reference Range Interpretation Comments Urine Specific [place] (test code = 5811-5) 1.010 1.010-1.02 5 [facility] HospitalUrine zO6904-08-61 18:38:00* Test Item Value Reference Range Interpretation Comments Urine pH (test code = 83092-1) 7 5-7 [facility] HospitalUrine Leukocyte Kuczrwdd9197-64-60 18:38:00* Test Item Value Reference Range Interpretation Comments Urine Leukocyte Esterase (test code = 5799-2) 1+ NEGATIVE H [facility] Koiwyui6506-48-22 18:38:00* Test Item Value Reference Range Interpretation Comments Urine Nitrite (test code = 18764-8) NEGATIVE NEGATIVE [facility] Xvmucfw4319-41-52 18:38:00* Test Item Value Reference Range Interpretation Comments Urine Protein (test code = 5804-0) 3+ NEGATIVE H [facility] HospitalUrine Glucose (UA)2018-05-29 18:38:00* Test Item Value Reference Range Interpretation Comments Urine Glucose (UA) (test code = 2349-9) NEGATIVE NEGATIVE [facility] HospitalUrine Cijjjjo2046-96-07 18:38:00* Test Item Value Reference Range Interpretation Comments Urine Ketones (test code = 72205-5) NEGATIVE NEGATIVE [facility] HospitalUrine Mugibvzmnyus9264-83-79 18:38:00* Test Item Value Reference Range Interpretation Comments Urine Urobilinogen (test code = 05752-1) 0.2 0.2-1 [facility] HospitalUrine Lplfssxbd9782-84-61 18:38:00* Test Item Value Reference Range Interpretation Comments Urine Bilirubin (test code = 1978-6) NEGATIVE NEGATIVE [facility] HospitalUrine Zkyyz4170-09-39 18:38:00* Test Item Value Reference Range Interpretation Comments Urine Blood (test code = 04966-9) 4+ NEGATIVE H [facility] HospitalUrine QFS7764-59-53 18:38:00* Test Item Value Reference Range Interpretation Comments Urine WBC (test code = 5821-4) >50 0-5 H [facility] HospitalUrine DDV7768-44-70 18:38:00* Test Item Value Reference Range Interpretation Comments Urine RBC (test code = 88176-7) >50 0-5 H [facility] HospitalUrine Lnextago3053-40-55 18:38:00* Test Item Value Reference Range Interpretation Comments Urine Bacteria (test code = 85070-1) MANY NONE H [facility] HospitalUrine Epithelial Dpdcu0090-02-24 18:38:00 * Test Item Value Reference Range Interpretation Comments Urine Epithelial Cells (test code = 90367-6) MODERATE NONE [facility] HospitalCT [facility]BDOMEN[facility]PELVIS UT4688-88-14 17:33:00 [facility] [address] [place] [address] Patient Name: WESLY HUTCHINSON MR #: [id number] : 1960 [facility] 57[id number] Req #: [id number] Adm Physician: Ordered by: LIZ MUÑIZ MD Report #: [id number] Location: ER Room/Bed: Procedure: [id number] CT/CT ABDOMEN/PELVIS WO Exam Date: 05/29/18 Exam Time: REPORT STATUS: Signed EXAM: C T Abdomen and Pelvis WITHOUT contrast INDICATION: CT CYSTOGRAM 2 [id number] Y COMPARISON: Nephrostomy tube x-ray 05/07/2018 [...] 42 COPY TO: LIZ MUÑIZ MD Sodium Vkgqz2659-26-19 16:54:00* Test Item Value Reference Range Interpretation Comments Sodium Level (test code = 2951-2) 137 136-145 [facility] HospitalPotassium Gcvwe9380-10-77 16:54:00* Test Item Value Reference Range Interpretation Comments Potassium Level (test code = 2823-3) 3.9 3.5-5.1 [facility] HospitalChloride Sdzlf9763-99-52 16:54:00* Test Item Value Reference Range Interpretation Comments Chloride Level (test code = 2075-0) 104 98-107 [facility] HospitalCarbon Dioxide Jhtip4768-13-07 16:54:00* Test Item Value Reference Range Interpretation Comments Carbon Dioxide Level (test code = 2028-9) 23 22-29 [facility] HospitalAnion Ava1925-73-78 16:54:00* Test Item Value Reference Range Interpretation Comments Anion Gap (test code = 33630-9) 13.9 8-16 [facility] HospitalBlood Urea Gvingzxx0510-21-69 16:54:00* Test Item Value Reference Range Interpretation Comments Blood Urea Nitrogen (test code = 3094-0) 10 7-26 [facility] HospitalCreatinine2019-04-20 16:54:00* Test Item Value Reference Range Interpretation Comments Creatinine (test code = 2160-0) 1.29 0.57-1.11 H [facility] HospitalBUN/Creatinine Gmxdv8743-59-88 16:54:00* Test Item Value Reference Range Interpretation Comments BUN/Creatinine Ratio (test code = 3097-3) 8 6-25 [facility] HospitalEstimat Glomerular Filtration Rate 2018-05-29 16:54:00* Test Item Value Reference Range Interpretation Comments Estimat Glomerular Filtration Rate (test code = 238671555) 43 >60 L Ranges were taken from the National Kidney Disease Education Program and the [facility] literature.Reference ranges:60 or greater: Crmvtt05-29 ( for 3 consecutive months): Chronic kidney disease 15 or less: Kidney failureMethodist McKinney HospitalGlucose Qkotb0580-06-59 16:54:00* Test Item Value Reference Range Interpretation Comments Glucose Level (test code = OIB1568) 125 74-118 H [facility] HospitalCalcium Yccwl3626-66-74 16:54:00* Test Item Value Reference Range Interpretation Comments Calcium Level (test code = 98977-7) 9.8 8.4-10.2 [facility] HospitalTotal Fibazvddg9013-45-40 16:54:00* Test Item Value Reference Range Interpretation Comments Total Bilirubin (test code = 1975-2) 0.6 0.2-1.2 [facility] HospitalAspartate Amino Transf (AST/SGOT) 2018-05-29 16:54:00* Test Item Value Reference Range Interpretation Comments Aspartate Amino Transf (AST/SGOT) (test code = Aspartate Amino Transf (AST/SGOT)) 22 5-34 [facility] HospitalAlanine Aminotransferase (ALT/SGPT) 2018-05-29 16:54:00* Test Item Value Reference Range Interpretation Comments Alanine Aminotransferase (ALT/SGPT) (test code = 1742-6) 25 0-55 [facility] HospitalTotal Qbtsnhs5871-00-78 16:54:00* Test Item Value Reference Range Interpretation Comments Total Protein (test code = 2885-2) 8.4 6.5-8.1 H [facility] HospitalAlbumin2019-04-20 16:54:00* Test Item Value Reference Range Interpretation Comments Albumin (test code = 1751-7) 3.4 3.5-5.0 L [facility] HospitalGlobulin2019-04-20 16:54:00* Test Item Value Reference Range Interpretation Comments Globulin (test code = 09153-8) 5.0 2.3-3.5 H [facility] HospitalAlbumin/Globulin Hpmbe6070-67-07 16:54:00 * Test Item Value Reference Range Interpretation Comments Albumin/Globulin Ratio (test code = 1759-0) 0.7 0.8-2.0 L [facility] HospitalAlkaline Swcevxprxtn4263-07-84 16:54:00* Test Item Value Reference Range Interpretation Comments Alkaline Phosphatase (test code = 6768-6) 108 40-150 [facility] HospitalTotal Phkgowmkb7664-80-47 16:54:00* Test Item Value Reference Range Interpretation Comments Total Bilirubin (test code = 1975-2) 0.6 0.2-1.2 [facility] HospitalAspartate Amino Transf (AST/SGOT) 2018-05-29 16:54:00* Test Item Value Reference Range Interpretation Comments Aspartate Amino Transf (AST/SGOT) (test code = Aspartate Amino Transf (AST/SGOT)) 22 5-34 [facility] HospitalAlanine Aminotransferase (ALT/SGPT) 2018-05-29 16:54:00* Test Item Value Reference Range Interpretation Comments Alanine Aminotransferase (ALT/SGPT) (test code = 1742-6) 25 0-55 [facility] HospitalTof[facility] Jckppaw5422-31-69 16:54:00* Test Item Value Reference Range Interpretation Comments Total Protein (test code = 2885-2) 8.4 6.5-8.1 H [facility] HospitalAlbumin2019-04-20 16:54:00* Test Item Value Reference Range Interpretation Comments Albumin (test code = 1751-7) 3.4 3.5-5.0 L [facility] HospitalGlobulin2019-04-20 16:54:00* Test Item Value Reference Range Interpretation Comments Globulin (test code = 73515-3) 5.0 2.3-3.5 H [facility] HospitalAlbumin/Globulin Fyrmm5155-70-28 16:54:00 * Test Item Value Reference Range Interpretation Comments Albumin/Globulin Ratio (test code = 1759-0) 0.7 0.8-2.0 L [facility] HospitalAlkaline Atqedioywkx7980-77-21 16:54:00* Test Item Value Reference Range Interpretation Comments Alkaline Phosphatase (test code = 6768-6) 108 40-150 [facility] HospitalTotal Wupoxvuna6753-87-89 16:54:00* Test Item Value Reference Range Interpretation Comments Total Bilirubin (test code = 1975-2) 0.6 0.2-1.2 [facility] HospitalAspartate Amino Transf (AST/SGOT) 2018-05-29 16:54:00* Test Item Value Reference Range Interpretation Comments Aspartate Amino Transf (AST/SGOT) (test code = Aspartate Amino Transf (AST/SGOT)) 22 5-34 [facility] HospitalAlanine Aminotransferase (ALT/SGPT) 2018-05-29 16:54:00* Test Item Value Reference Range Interpretation Comments Alanine Aminotransferase (ALT/SGPT) (test code = 1742-6) 25 0-55 [facility] HospitalTotal Dogqloz2005-11-97 16:54:00* Test Item Value Reference Range Interpretation Comments Total Protein (test code = 2885-2) 8.4 6.5-8.1 H [facility] HospitalAlbumin2019-04-20 16:54:00* Test Item Value Reference Range Interpretation Comments Albumin (test code = 1751-7) 3.4 3.5-5.0 L [facility] HospitalGlobulin2019-04-20 16:54:00* Test Item Value Reference Range Interpretation Comments Globulin (test code = 93105-2) 5.0 2.3-3.5 H [facility] HospitalAlbumin/Globulin Phmge6293-60-04 16:54:00 * Test Item Value Reference Range Interpretation Comments Albumin/Globulin Ratio (test code = 1759-0) 0.7 0.8-2.0 L [facility] HospitalAlkaline Qhatdzgkyap9427-49-88 16:54:00* Test Item Value Reference Range Interpretation Comments Alkaline Phosphatase (test code = 6768-6) 108 40-150 [facility] HospitalWhite Blood Khfqe5066-23-29 16:29:00* Test Item Value Reference Range Interpretation Comments White Blood Count (test code = 6690-2) 11.44 4.8-10.8 H [facility] HospitalRed Blood Ujqri2287-18-53 16:29:00* Test Item Value Reference Range Interpretation Comments Red Blood Count (test code = 789-8) 4.15 3.6-5.1 [facility] HospitalHemoglobin2019-04-20 16:29:00* Test Item Value Reference Range Interpretation Comments Hemoglobin (test code = 99975-8) 10.7 12.0-16.0 L [facility] HospitalHematocrit2019-04-20 16:29:00* Test Item Value Reference Range Interpretation Comments Hematocrit (test code = 4544-3) 34.4 34.2-44.1 [facility] HospitalMean Corpuscular Rmopeh2917-68-18 16:29:00* Test Item Value Reference Range Interpretation Comments Mean Corpuscular Volume (test code = 787-2) 82.9 81-99 [facility] HospitalMean Corpuscular Nnztyzjuzv7456-44-93 16:29:00* Test Item Value Reference Range Interpretation Comments Mean Corpuscular Hemoglobin (test code = 785-6) 25.8 28-32 L [facility] HospitalMean Corpuscular Hemoglobin Concent 2018-05-29 16:29:00* Test Item Value Reference Range Interpretation Comments Mean Corpuscular Hemoglobin Concent (test code = 786-4) 31.1 31-35 [facility] HospitalRed Cell Distribution Tyqrm3780-98-33 16:29:00* Test Item Value Reference Range Interpretation Comments Red Cell Distribution Width (test code = 97537-1) 14.8 11.7 -14.4 H [facility] HospitalPlatelet Pbfes4181-56-76 16:29:00* Test Item Value Reference Range Interpretation Comments Platelet Count (test code = 777-3) 305 140-360 [facility] HospitalNeutrophils (%) (Auto)2018-05-29 16:29:00 * Test Item Value Reference Range Interpretation Comments Neutrophils (%) (Auto) (test code = 86839-4) 82.6 38.7-80.0 H [facility] HospitalLymphocytes (%) (Auto)2018-05-29 16:29:00 * Test Item Value Reference Range Interpretation Comments Lymphocytes (%) (Auto) (test code = 736-9) 11.8 18.0-39.1 L [facility] HospitalMonocytes (%) (Auto)2018-05-29 16:29:00* Test Item Value Reference Range Interpretation Comments Monocytes (%) (Auto) (test code = 5905-5) 4.6 4.4-11.3 [facility] HospitalEosinophils (%) (Auto)2018-05-29 16:29:00 * Test Item Value Reference Range Interpretation Comments Eosinophils (%) (Auto) (test code = 713-8) 0.3 0.0-6.0 [facility] HospitalBasophils (%) (Auto)2018-05-29 16:29:00* Test Item Value Reference Range Interpretation Comments Basophils (%) (Auto) (test code = 706-2) 0.3 0.0-1.0 [facility] HospitalIM GRANULOCYTES %2018-05-29 16:29:00* Test Item Value Reference Range Interpretation Comments IM GRANULOCYTES % (test code = IM GRANULOCYTES %) 0.4 0.0- 1.0 [facility] HospitalNeutrophils # (Auto)2018-05-29 16:29:00* Test Item Value Reference Range Interpretation Comments Neutrophils # (Auto) (test code = 751-8) 9.4 2.1-6.9 [facility] HospitalLymphocytes # (Auto)2018-05-29 16:29:00* Test Item Value Reference Range Interpretation Comments Lymphocytes # (Auto) (test code = 52220-7) 1.4 1.0-3.2 [facility] HospitalMonocytes # (Auto)2018-05-29 16:29:00* Test Item Value Reference Range Interpretation Comments Monocytes # (Auto) (test code = 742-7) 0.5 0.2-0.8 [facility] HospitalEosinophils # (Auto)2018-05-29 16:29:00* Test Item Value Reference Range Interpretation Comments Eosinophils # (Auto) (test code = 711-2) 0.0 0.0-0.4 [facility] HospitalBasophils # (Auto)2018-05-29 16:29:00* Test Item Value Reference Range Interpretation Comments Basophils # (Auto) (test code = 704-7) 0.0 0.0-0.1 [facility] HospitalAbsolute Immature Granulocyte (auto 2018-05-29 16:29:00* Test Item Value Reference Range Interpretation Comments Absolute Immature Granulocyte (auto (irena t code = Absolute Immature Granulocyte (auto) 0.05 0-0.1 [facility] PJE2681-41-22 12:30:00 [facility] [address] [place] [address] Patient Name: WESLY HUTCHINSON MR #: [id number] : 1960 Age/Sex: 57/F Req #: [id number] Adm Physician: FIGUEROA CARD MD Ordered by: JARET ESPINOSA MD Report #: [id number] Location: MED/SURG3 Room/Bed: [facility] Procedure: [id number] IR/ARPAN BEVERLY PROCEDURE IN MARKETING TRAFFIC COORDINATOR Exam Date: Exam Time: REPORT STATUS: Signed Procedure: Ri ght nephrostomy catheter exchange with fluoroscopic guidance Comparison: Ri ght nephrostomy exchange 12/15/2017. Plastics Tooling Engineer: Mode Donald MD Sedation /Medications: Conscious sedation. [...] er was exchanged for a new 10 [place] nephrostomy catheter. Contrast injection confirmed satisfactory positioning. [...] 1234 COPY TO: JARET ESPINOSA MD IR IPBGJRZ8641-86-11 12:30:[address], [place], [place] [address] Patient Name: WESLY HUTCHINSON MR #: [id number] : 1960 Age/Sex: 57/F Req #: [id number] [facility] Physician: FIGUEROA CARD MD Ordered by: JARET ESPINOSA MD Report #: [id number] Location: MED/SURG3 Room/Bed: [facility] Procedure: [id number] DX/IR CO NSULT Exam Date: Exam Time: REPORT STATUS: Signed Procedure: Right nephrostomy cat heter exchange with fluoroscopic guidance Comparison: Right nephrostomy exc hange 12/15/2017. Plastics Tooling Engineer: Mode Donald MD Sedation/Medications: Consc ious sedation. [...] catheter was exchanged for a new 10 [place] nephrostomy catheter. Contrast injection confirmed satisfact ory positioning. Catheter was secured with suture and overlying sterile dressi ng. There were no immediate complications. Impression: Fluoroscopic guide d right nephrostomy catheter exchange as above. Signed by: Dr. Mode Donald MD on 05/17/2018 12:34 PM Dictated By: MODE DONALD MD 1234 Transcribed By: DEYANIRA on 05/17/18 1234 COPY TO: JARET ESPINOSA MD Blood Btltpcy0594-97-44 12:15:00* Test Item Value Reference Range Interpretation Comments Blood Culture (test code = 88080175) NO GROWTH AFTER 5 DAYS, FINAL REPORT [facility] Jozolbz6088-27-73 12:15:00* Test Item Value Reference Range Interpretation Comments Blood Culture (test code = 63410611) NO GROWTH AFTER 5 DAYS, FINAL REPORT [facility] Phrlggl9094-74-36 12:15:00* Test Item Value Reference Range Interpretation Comments Blood Culture (test code = 51907523) NO GROWTH AFTER 5 DAYS, FINAL REPORT [facility] Mawzace4336-83-63 12:15:00* Test Item Value Reference Range Interpretation Comments Blood Culture (test code = 61613263) NO GROWTH AFTER 5 DAYS, FINAL REPORT [facility] Skawjkd4711-20-74 12:15:00* Test Item Value Reference Range Interpretation Comments Blood Culture (test code = 06299353) NO GROWTH AFTER 5 DAYS, FINAL REPORT [facility] Tlodkog9149-39-02 12:15:00* Test Item Value Reference Range Interpretation Comments Blood Culture (test code = 10596529) NO GROWTH AFTER 5 DAYS, FINAL REPORT [facility] Omjocty2162-98-09 12:15:00* Test Item Value Reference Range Interpretation Comments Blood Culture (test code = 34830027) NO GROWTH AFTER 5 DAYS, FINAL REPORT [facility] Mrrslsv6666-24-63 12:15:00* Test Item Value Reference Range Interpretation Comments Blood Culture (test code = 92189719) NO GROWTH AFTER 5 DAYS, FINAL REPORT [facility] Hlhgf2678-91-18 06:03:00* Test Item Value Reference Range Interpretation Comments Sodium Level (test code = 2951-2) 141 136-145 [facility] HospitalPotassium Rmbpa2658-91-14 06:03:00* Test Item Value Reference Range Interpretation Comments Potassium Level (test code = 2823-3) 3.3 3.5-5.1 L [facility] HospitalChloride Pmwic7075-26-49 06:03:00* Test Item Value Reference Range Interpretation Comments Chloride Level (test code = 2075-0) 108 98-107 H [facility] HospitalCarbon Dioxide Xwtsm2064-53-62 06:03:00* Test Item Value Reference Range Interpretation Comments Carbon Dioxide Level (test code = 2028-9) 25 22-29 [facility] HospitalAnion Emn4926-89-70 06:03:00* Test Item Value Reference Range Interpretation Comments Anion Gap (test code = 16714-8) 11.3 8-16 [facility] HospitalBlood Urea Mzxnttbe0483-83-53 06:03:00* Test Item Value Reference Range Interpretation Comments Blood Urea Nitrogen (test code = 3094-0) 9 7-26 [facility] HospitalCreatinine2019-04-01 06:03:00* Test Item Value Reference Range Interpretation Comments Creatinine (test code = 2160-0) 1.01 0.57-1.11 [facility] HospitalBUN/Creatinine Ilzwl5948-51-89 06:03:00* Test Item Value Reference Range Interpretation Comments BUN/Creatinine Ratio (test code = 3097-3) 9 6-25 [facility] HospitalEstimat Glomerular Filtration Rate 2018-05-10 06:03:00* Test Item Value Reference Range Interpretation Comments Estimat Glomerular Filtration Rate (test code = 949227016) 57 >60 L Ranges were taken from the National Kidney Disease Education Program and the [facility] literature.Reference ranges:60 or greater: Fsqztk59-77 ( for 3 consecutive months): Chronic kidney disease 15 or less: Kidney failureMethodist McKinney HospitalGlucose Cfhfi7106-32-07 06:03:00* Test Item Value Reference Range Interpretation Comments Glucose Level (test code = KGL0861) 127 74-118 H [facility] HospitalCalcium Fgvju2569-41-98 06:03:00* Test Item Value Reference Range Interpretation Comments Calcium Level (test code = 66104-3) 9.5 8.4-10.2 [facility] HospitalWhite Blood Nxrgi5298-92-85 05:50:00* Test Item Value Reference Range Interpretation Comments White Blood Count (test code = 6690-2) 7.55 4.8-10.8 [facility] HospitalRed Blood Vkqaw4320-39-17 05:50:00* Test Item Value Reference Range Interpretation Comments Red Blood Count (test code = 789-8) 3.99 3.6-5.1 [facility] HospitalHemoglobin2019-04-01 05:50:00* Test Item Value Reference Range Interpretation Comments Hemoglobin (test code = 74502-8) 10.2 12.0-16.0 L [facility] HospitalHematocrit2019-04-01 05:50:00* Test Item Value Reference Range Interpretation Comments Hematocrit (test code = 4544-3) 32.7 34.2-44.1 L [facility] HospitalMean Corpuscular Deombq3097-94-00 05:50:00* Test Item Value Reference Range Interpretation Comments Mean Corpuscular Volume (test code = 787-2) 82.0 81-99 [facility] HospitalMean Corpuscular Nhuoaopbjg0217-79-05 05:50:00* Test Item Value Reference Range Interpretation Comments Mean Corpuscular Hemoglobin (test code = 785-6) 25.6 28-32 L [facility] HospitalMean Corpuscular Hemoglobin Concent 2018-05-10 05:50:00* Test Item Value Reference Range Interpretation Comments Mean Corpuscular Hemoglobin Concent (test code = 786-4) 31.2 31-35 [facility] HospitalRed Cell Distribution Kbstb7964-66-67 05:50:00* Test Item Value Reference Range Interpretation Comments Red Cell Distribution Width (test code = 70933-8) 13.6 11.7 -14.4 [facility] HospitalPlatelet Jqadz5899-84-45 05:50:00* Test Item Value Reference Range Interpretation Comments Platelet Count (test code = 777-3) 296 140-360 [facility] HospitalNeutrophils (%) (Auto)2018-05-10 05:50:00 * Test Item Value Reference Range Interpretation Comments Neutrophils (%) (Auto) (test code = 19919-9) 62.3 38.7-80.0 [facility] HospitalLymphocytes (%) (Auto)2018-05-10 05:50:00 * Test Item Value Reference Range Interpretation Comments Lymphocytes (%) (Auto) (test code = 736-9) 28.6 18.0-39.1 [facility] HospitalMonocytes (%) (Auto)2018-05-10 05:50:00* Test Item Value Reference Range Interpretation Comments Monocytes (%) (Auto) (test code = 5905-5) 5.8 4.4-11.3 [facility] HospitalEosinophils (%) (Auto)2018-05-10 05:50:00 * Test Item Value Reference Range Interpretation Comments Eosinophils (%) (Auto) (test code = 713-8) 2.5 0.0-6.0 [facility] HospitalBasophils (%) (Auto)2018-05-10 05:50:00* Test Item Value Reference Range Interpretation Comments Basophils (%) (Auto) (test code = 706-2) 0.5 0.0-1.0 [facility] HospitalIM GRANULOCYTES %2018-05-10 05:50:00* Test Item Value Reference Range Interpretation Comments IM GRANULOCYTES % (test code = IM GRANULOCYTES %) 0.3 0.0- 1.0 [facility] HospitalNeutrophils # (Auto)2018-05-10 05:50:00* Test Item Value Reference Range Interpretation Comments Neutrophils # (Auto) (test code = 751-8) 4.7 2.1-6.9 [facility] HospitalLymphocytes # (Auto)2018-05-10 05:50:00* Test Item Value Reference Range Interpretation Comments Lymphocytes # (Auto) (test code = 92951-6) 2.2 1.0-3.2 [facility] HospitalMonocytes # (Auto)2018-05-10 05:50:00* Test Item Value Reference Range Interpretation Comments Monocytes # (Auto) (test code = 742-7) 0.4 0.2-0.8 [facility] HospitalEosinophils # (Auto)2018-05-10 05:50:00* Test Item Value Reference Range Interpretation Comments Eosinophils # (Auto) (test code = 711-2) 0.2 0.0-0.4 [facility] HospitalBasophils # (Auto)2018-05-10 05:50:00* Test Item Value Reference Range Interpretation Comments Basophils # (Auto) (test code = 704-7) 0.0 0.0-0.1 [facility] HospitalAbsolute Immature Granulocyte (auto 2018-05-10 05:50:00* Test Item Value Reference Range Interpretation Comments Absolute Immature Granulocyte (auto (irena t code = Absolute Immature Granulocyte (auto) 0.02 0-0.1 [facility] Qjmmcwq0803-08-34 16:34:00* Test Item Value Reference Range Interpretation Comments Bedside Glucose (test code = 68977-8) 141 70-120 H Meter ID: [id number] [facility] Glucose 2018-05-09 16:34:00* Test Item Value Reference Range Interpretation Comments Bedside Glucose (test code = 11029-3) 141 70-120 H Meter ID: [id number] Health [facility] Glucose 2018-05-09 16:34:00* Test Item Value Reference Range Interpretation Comments Bedside Glucose (test code = 68332-9) 141 70-120 H Meter ID: [id number] Health [facility] Glucose 2018-05-09 16:34:00* Test Item Value Reference Range Interpretation Comments Bedside Glucose (test code = 74934-0) 141 70-120 H Meter ID: [id number] McKinney HospitalBlood Culture 2018-05-09 12:15:00* Test Item Value Reference Range Interpretation Comments Blood Culture (test code = 99776757) NO GROWTH AFTER 72 HOURS [facility]2019-03-30 12:03:00* Test Item Value Reference Range Interpretation Comments Urine Culture (test code = 630-4) Organism: PSEUDOMONAS AERUGINOSA [facility]2019-03-30 12:03:00* Test Item Value Reference Range Interpretation Comments Urine Culture (test code = 630-4) Organism: PSEUDOMONAS AERUGINOSA [facility]2019-03-29 09:30:00* Test Item Value Reference Range Interpretation Comments Urine Culture (test code = 630-4) Organism: GRAM NEGATIVE BACILLUS [facility]2019-03-29 09:30:00* Test Item Value Reference Range Interpretation Comments Urine Culture (test code = 630-4) Organism: GRAM NEGATIVE BACILLUS [facility]2019-03-29 09:30:00* Test Item Value Reference Range Interpretation Comments Urine Culture (test code = 630-4) Organism: GRAM NEGATIVE BACILLUS [facility]2019-03-29 09:30:00* Test Item Value Reference Range Interpretation Comments Urine Culture (test code = 630-4) Organism: GRAM NEGATIVE BACILLUS [facility]2019-03-29 09:30:00* Test Item Value Reference Range Interpretation Comments Urine Culture (test code = 630-4) Organism: GRAM NEGATIVE BACILLUS [facility]2019-03-29 09:30:00* Test Item Value Reference Range Interpretation Comments Urine Culture (test code = 630-4) Organism: GRAM NEGATIVE BACILLUS [facility]2019-03-29 09:30:00* Test Item Value Reference Range Interpretation Comments Urine Culture (test code = 630-4) Organism: GRAM NEGATIVE BACILLUS [facility]2019-03-29 09:30:00* Test Item Value Reference Range Interpretation Comments Urine Culture (test code = 630-4) No Result Data Provided [facility]2019-03-29 09:30:00* Test Item Value Reference Range Interpretation Comments Urine Culture (test code = 630-4) No Result Data Provided [facility] HospitalUrine Zmwzndv0835-21-26 09:30:00* Test Item Value Reference Range Interpretation Comments Urine Culture (test code = 630-4) No Result Data Provided [facility] Jbendrh4726-23-70 09:30:00* Test Item Value Reference Range Interpretation Comments Urine Culture (test code = 630-4) No Result Data Provided [facility] Chorionic Gonadotropin, Qual 2018-05-07 09:05:00* Test Item Value Reference Range Interpretation Comments Human Chorionic Gonadotropin, Qual (test code = 2118-8) NEGATIVE NEGATIVE [facility] Chorionic Gonadotropin, Qual 2018-05-07 09:05:00* Test Item Value Reference Range Interpretation Comments Human Chorionic Gonadotropin, Qual (test code = 2118-8) NEGATIVE NEGATIVE [facility] Chorionic Gonadotropin, Qual 2018-05-07 09:05:00* Test Item Value Reference Range Interpretation Comments Human Chorionic Gonadotropin, Qual (test code = 2118-8) NEGATIVE NEGATIVE [facility] Chorionic Gonadotropin, Qual 2018-05-07 09:05:00* Test Item Value Reference Range Interpretation Comments Human Chorionic Gonadotropin, Qual (test code = 8-8) NEGATIVE NEGATIVE [facility] HospitalT[facility] Azljpljve1297-66-65 06:06:00* Test Item Value Reference Range Interpretation Comments Total Bilirubin (test code = 1975-2) 0.3 0.2-1.2 [facility] HospitalAspartate Amino Transf (AST/SGOT) 2018-05-07 06:06:00* Test Item Value Reference Range Interpretation Comments Aspartate Amino Transf (AST/SGOT) (test code = Aspartate Amino Transf (AST/SGOT)) 14 5-34 [facility] HospitalAlanine Aminotransferase (ALT/SGPT) 2018-05-07 06:06:00* Test Item Value Reference Range Interpretation Comments Alanine Aminotransferase (ALT/SGPT) (test code = 1742-6) 13 0-55 [facility] HospitalTotal Zhaxykd2413-23-74 06:06:00* Test Item Value Reference Range Interpretation Comments Total Protein (test code = 2885-2) 7.3 6.5-8.1 [facility] HospitalAlbumin2019-03-29 06:06:00* Test Item Value Reference Range Interpretation Comments Albumin (test code = 1751-7) 2.7 3.5-5.0 L [facility] HospitalGlobulin2019-03-29 06:06:00* Test Item Value Reference Range Interpretation Comments Globulin (test code = 04691-2) 4.6 2.3-3.5 H [facility] HospitalAlbumin/Globulin Rqixx6086-56-64 06:06:00 * Test Item Value Reference Range Interpretation Comments Albumin/Globulin Ratio (test code = 1759-0) 0.6 0.8-2.0 L [facility] HospitalAlkaline Twbkthbyozb4460-92-66 06:06:00* Test Item Value Reference Range Interpretation Comments Alkaline Phosphatase (test code = 6768-6) 87 40-150 [facility] HospitalUrine MCA0392-98-43 13:02:00* Test Item Value Reference Range Interpretation Comments Urine WBC (test code = 5821-4) 21-50 0-5 H [facility] HospitalUrine DDL1732-05-55 13:02:00* Test Item Value Reference Range Interpretation Comments Urine RBC (test code = 18885-2) 6-10 0-5 H [facility] HospitalUrine Mzvndkmu8236-37-88 13:02:00* Test Item Value Reference Range Interpretation Comments Urine Bacteria (test code = 34298-9) FEW NONE [facility] HospitalUrine Epithelial Dgggw1639-96-76 13:02:00 * Test Item Value Reference Range Interpretation Comments Urine Epithelial Cells (test code = 83670-3) NONE NONE [facility] HospitalABDOMEN-1VIEW (KUB)2018-05-06 12:55:00 [place] [address] Patient Name: WESLY HUTCHINSON MR #: [id number] : 1960 Age/Sex: 57/F Req #: [id number] Adm Physician: Ordered by: LUZ MARINA BONDS MD Report #: [id number] Location: ER Room/Bed: Procedure: [id number] DX/ ABDOMEN-1VIEW (KUB) Exam Date: 05/06/18 Exam Time: 1 215 REPORT STATUS: Signed Exa m: FITO. [...] DEYANIRA on 05/06/18 1258 COPY TO: LUZ AMRINA BONDS MD Urine Jqfgm7498-26-62 12:47:00* Test Item Value Reference Range Interpretation Comments Urine Color (test code = 5778-6) YELLOW YELLOW [facility] HospitalUrine Tghtelc4444-91-08 12:47:00* Test Item Value Reference Range Interpretation Comments Urine Clarity (test code = 49083-7) CLOUDY CLEAR H [facility] HospitalUrine Specific Fzjjsru2126-77-96 12:47:00 * Test Item Value Reference Range Interpretation Comments Urine Specific [place] (test code = 5811-5) 1.010 1.010-1.02 5 [facility] HospitalUrine nY8700-39-32 12:47:00* Test Item Value Reference Range Interpretation Comments Urine pH (test code = 78911-8) 7 5-7 [facility] Leukocyte Nufxwdmg2900-94-92 12:47:00* Test Item Value Reference Range Interpretation Comments Urine Leukocyte Esterase (test code = 5799-2) 1+ NEGATIVE H [facility] Nrywchn4752-35-37 12:47:00* Test Item Value Reference Range Interpretation Comments Urine Nitrite (test code = 82681-9) POSITIVE NEGATIVE [facility] Laiggnq5561-41-21 12:47:00* Test Item Value Reference Range Interpretation Comments Urine Protein (test code = 5804-0) 2+ NEGATIVE [facility] Glucose (UA)2018-05-06 12:47:00* Test Item Value Reference Range Interpretation Comments Urine Glucose (UA) (test code = 2349-9) NEGATIVE NEGATIVE [facility] Alhugjj5332-19-85 12:47:00* Test Item Value Reference Range Interpretation Comments Urine Ketones (test code = 94536-6) NEGATIVE NEGATIVE [facility] Hoqpqrvokotj6260-61-24 12:47:00* Test Item Value Reference Range Interpretation Comments Urine Urobilinogen (test code = 33348-4) 0.2 0.2-1 [facility] Cctnuwuhg4993-34-62 12:47:00* Test Item Value Reference Range Interpretation Comments Urine Bilirubin (test code = 1978-6) NEGATIVE NEGATIVE [facility] Brzkq3947-66-59 12:47:00* Test Item Value Reference Range Interpretation Comments Urine Blood (test code = 41127-8) 3+ NEGATIVE H [facility] Evminjn7423-52-92 13:56:00* Test Item Value Reference Range Interpretation Comments Urine Culture (test code = 630-4) Organism: PSEUDO FLUORESCENS/PUTI DA [facility] Aospftr6590-26-55 13:56:00* Test Item Value Reference Range Interpretation Comments Urine Culture (test code = 630-4) Organism: PSEUDO FLUORESCENS/PUTI DA [facility] Wjfflct1297-44-03 13:56:00* Test Item Value Reference Range Interpretation Comments Urine Culture (test code = 630-4) Organism: PSEUDO FLUORESCENS/PUTI DA [facility] (KUB)2018-03-25 14:44:00 [facility] [address] [place] [address] Patient Name: WESLY HUTCHINSON MR #: [id number] : Age/Sex: 57/F Req #: [id number] Adm Physician: Ordered by: JARET ESPINOSA MD Report #: [id number] Location: OR Room/Bed: Procedure: [id number] D X/ABDOMEN-1VIEW (KU) Exam Date: 03/25/18 Exam Time: 1315 REPORT STATUS: Signed E xam: Abdominal film Clinical History: Nephrolithiasis Comparison: CT abdomen and pelvis 03/10/2018 DISCUSSION: Right percutaneous nephrostomy and parallel left internal ureteral stents are again noted. Positions are unchang ed relative to supervisor pit and auxiliaries tomogram from comparison CT. Pelvic surgical clips [...] 03/25/181446 COPY TO: JARET ESPINOSA MD Sodium Njtnq9457-63-93 15:26:00* Test Item Value Reference Range Interpretation Comments Sodium Level (test code = 2951-2) 136 136-145 [facility] HospitalPotassium Ycbeg5287-92-97 15:26:00* Test Item Value Reference Range Interpretation Comments Potassium Level (test code = 2823-3) 3.5 3.5-5.1 [facility] HospitalChloride Kwahv1726-12-86 15:26:00* Test Item Value Reference Range Interpretation Comments Chloride Level (test code = 2075-0) 102 98-107 [facility] HospitalCarbon Dioxide Yzxmd8312-29-42 15:26:00* Test Item Value Reference Range Interpretation Comments Carbon Dioxide Level (test code = 2028-9) 22 22-29 [facility] HospitalAnion Peh5526-30-18 15:26:00* Test Item Value Reference Range Interpretation Comments Anion Gap (test code = 02521-9) 15.5 8-16 [facility] HospitalBlood Urea Tbcpsbwm4928-37-48 15:26:00* Test Item Value Reference Range Interpretation Comments Blood Urea Nitrogen (test code = 3094-0) 20 7-26 [facility] HospitalCreatinine2019-01-30 15:26:00* Test Item Value Reference Range Interpretation Comments Creatinine (test code = 2160-0) 1.14 0.57-1.11 H [facility] HospitalBUN/Creatinine Kcgxx6368-04-65 15:26:00* Test Item Value Reference Range Interpretation Comments BUN/Creatinine Ratio (test code = 3097-3) 18 6-25 [facility] HospitalEstimat Glomerular Filtration Rate 2018-03-10 15:26:00* Test Item Value Reference Range Interpretation Comments Estimat Glomerular Filtration Rate (test code = 427071460) 49 >60 L Ranges were taken from the National Kidney Disease Education Program and the [facility] literature.Reference ranges:60 or greater: Ipazgg70-63 ( for 3 consecutive months): Chronic kidney disease 15 or less: Kidney failureMethodist McKinney HospitalGlucose Lupro7115-40-28 15:26:00* Test Item Value Reference Range Interpretation Comments Glucose Level (test code = XIO1926) 162 74-118 H [facility] HospitalCalcium Pxdav2931-45-75 15:26:00* Test Item Value Reference Range Interpretation Comments Calcium Level (test code = 43848-9) 9.3 8.4-10.2 [facility] HospitalTotal Momrbadrm5740-00-77 15:26:00* Test Item Value Reference Range Interpretation Comments Total Bilirubin (test code = 1975-2) 0.5 0.2-1.2 [facility] HospitalAspartate Amino Transf (AST/SGOT) 2018-03-10 15:26:00* Test Item Value Reference Range Interpretation Comments Aspartate Amino Transf (AST/SGOT) (test code = Aspartate Amino Transf (AST/SGOT)) 16 5-34 [facility] HospitalAlanine Aminotransferase (ALT/SGPT) 2018-03-10 15:26:00* Test Item Value Reference Range Interpretation Comments Alanine Aminotransferase (ALT/SGPT) (test code = 1742-6) 20 0-55 [facility] HospitalTotal Banucjr8815-58-41 15:26:00* Test Item Value Reference Range Interpretation Comments Total Protein (test code = 2885-2) 7.7 6.5-8.1 [facility] HospitalAlbumin2019-01-30 15:26:00* Test Item Value Reference Range Interpretation Comments Albumin (test code = 1751-7) 3.4 3.5-5.0 L [facility] HospitalGlobulin2019-01-30 15:26:00* Test Item Value Reference Range Interpretation Comments Globulin (test code = 26554-3) 4.3 2.3-3.5 H [facility] HospitalAlbumin/Globulin Tvnql2682-47-80 15:26:00 * Test Item Value Reference Range Interpretation Comments Albumin/Globulin Ratio (test code = 1759-0) 0.8 0.8-2.0 [facility] HospitalAlkaline Tkolyihdspp2978-12-22 15:26:00* Test Item Value Reference Range Interpretation Comments Alkaline Phosphatase (test code = 6768-6) 98 40-150 [facility] Qsdua3221-24-50 15:26:00* Test Item Value Reference Range Interpretation Comments Sodium Level (test code = 2951-2) 136 136-145 [facility]Potassium Qytql8833-23-62 15:26:00* Test Item Value Reference Range Interpretation Comments Potassium Level (test code = 2823-3) 3.5 3.5-5.1 [facility] HospitalChloride Ggiet3725-43-15 15:26:00* Test Item Value Reference Range Interpretation Comments Chloride Level (test code = 2075-0) 102 98-107 [facility] HospitalCarbon Dioxide Qhqae3785-19-59 15:26:00* Test Item Value Reference Range Interpretation Comments Carbon Dioxide Level (test code = 2028-9) 22 22-29 [facility] HospitalAnion Qvh7420-97-79 15:26:00* Test Item Value Reference Range Interpretation Comments Anion Gap (test code = 13261-7) 15.5 8-16 [facility] HospitalBlood Urea Mcekfblg9580-07-88 15:26:00* Test Item Value Reference Range Interpretation Comments Blood Urea Nitrogen (test code = 3094-0) 20 7-26 [facility] HospitalCreatinine2019-01-30 15:26:00* Test Item Value Reference Range Interpretation Comments Creatinine (test code = 2160-0) 1.14 0.57-1.11 H [facility] HospitalBUN/Creatinine Ajrdu6230-88-63 15:26:00* Test Item Value Reference Range Interpretation Comments BUN/Creatinine Ratio (test code = 3097-3) 18 6-25 [facility] HospitalEstimat Glomerular Filtration Rate 2018-03-10 15:26:00* Test Item Value Reference Range Interpretation Comments Estimat Glomerular Filtration Rate (test code = 694978400) 49 >60 L Ranges were taken from the National Kidney Disease Education Program and the [facility] literature.Reference ranges:60 or greater: Dxafpk40-30 ( for 3 consecutive months): Chronic kidney disease 15 or less: Kidney failureMethodist [facility]ney HospitalGlucose Traen5731-54-34 15:26:00* Test Item Value Reference Range Interpretation Comments Glucose Level (test code = LUI5237) 162 74-118 H [facility] HospitalCalcium Jyoqf8664-64-08 15:26:00* Test Item Value Reference Range Interpretation Comments Calcium Level (test code = 78771-4) 9.3 8.4-10.2 [facility] HospitalTotal Hzilruvar8399-29-79 15:26:00* Test Item Value Reference Range Interpretation Comments Total Bilirubin (test code = 1975-2) 0.5 0.2-1.2 [facility] HospitalAspartate Amino Transf (AST/SGOT) 2018-03-10 15:26:00* Test Item Value Reference Range Interpretation Comments Aspartate Amino Transf (AST/SGOT) (test code = Aspartate Amino Transf (AST/SGOT)) 16 5-34 [facility] HospitalAlanine Aminotransferase (ALT/SGPT) 2018-03-10 15:26:00* Test Item Value Reference Range Interpretation Comments Alanine Aminotransferase (ALT/SGPT) (test code = 1742-6) 20 0-55 [facility] HospitalTotal Hfgrguk2901-24-34 15:26:00* Test Item Value Reference Range Interpretation Comments Total Protein (test code = 2885-2) 7.7 6.5-8.1 [facility] HospitalAlbumin2019-01-30 15:26:00* Test Item Value Reference Range Interpretation Comments Albumin (test code = 1751-7) 3.4 3.5-5.0 L [facility] HospitalGlobulin2019-01-30 15:26:00* Test Item Value Reference Range Interpretation Comments Globulin (test code = 68202-8) 4.3 2.3-3.5 H [facility] HospitalAlbumin/Globulin Rlamg4950-78-12 15:26:00 * Test Item Value Reference Range Interpretation Comments Albumin/Globulin Ratio (test code = 1759-0) 0.8 0.8-2.0 [facility] HospitalAlkaline Nagirhrykmt9048-66-99 15:26:00* Test Item Value Reference Range Interpretation Comments Alkaline Phosphatase (test code = 6768-6) 98 40-150 [facility] HospitalUrine OPA7355-02-29 15:23:00* Test Item Value Reference Range Interpretation Comments Urine WBC (test code = 5821-4) 11-20 0-5 H [facility] HospitalUrine HMN8514-38-06 15:23:00* Test Item Value Reference Range Interpretation Comments Urine RBC (test code = 54765-7) 11-20 0-5 H [facility]Urine Gxwwngvh0062-87-75 15:23:00* Test Item Value Reference Range Interpretation Comments Urine Bacteria (test code = 19085-7) MANY NONE H [facility] HospitalUrine Epithelial Ubytd2565-67-30 15:23:00 * Test Item Value Reference Range Interpretation Comments Urine Epithelial Cells (test code = 71938-0) NONE NONE [facility] HospitalUrine LIU9012-94-66 15:23:00* Test Item Value Reference Range Interpretation Comments Urine WBC (test code = 5821-4) 11-20 0-5 H [facility] HospitalUrine JON7639-98-18 15:23:00* Test Item Value Reference Range Interpretation Comments Urine RBC (test code = 22407-2) 11-20 0-5 H [facility]Urine Dwpxhgld0832-46-81 15:23:00* Test Item Value Reference Range Interpretation Comments Urine Bacteria (test code = 79613-8) MANY NONE H [facility] HospitalUrine Epithelial Fwkso5407-74-38 15:23:00 * Test Item Value Reference Range Interpretation Comments Urine Epithelial Cells (test code = 98114-4) NONE NONE [facility] HospitalUrine Bwleq8426-39-19 15:15:00* Test Item Value Reference Range Interpretation Comments Urine Color (test code = 5778-6) STRAW YELLOW [facility]Urine Fzglsip8700-84-29 15:15:00* Test Item Value Reference Range Interpretation Comments Urine Clarity (test code = 66794-3) CLOUDY CLEAR H [facility] HospitalUrine Specific Twsjwyr4613-15-94 15:15:00 * Test Item Value Reference Range Interpretation Comments Urine Specific [place] (test code = 5811-5) 1.025 1.010-1.02 5 [facility] HospitalUrine uR9963-59-63 15:15:00* Test Item Value Reference Range Interpretation Comments Urine pH (test code = 59087-7) 6 5-7 [facility] Leukocyte Kfbcccai0572-51-49 15:15:00* Test Item Value Reference Range Interpretation Comments Urine Leukocyte Esterase (test code = 5799-2) 2+ NEGATIVE H [facility] Rajqwxu7817-65-56 15:15:00* Test Item Value Reference Range Interpretation Comments Urine Nitrite (test code = 88527-6) NEGATIVE NEGATIVE [facility] Pgjiusw8496-54-86 15:15:00* Test Item Value Reference Range Interpretation Comments Urine Protein (test code = 5804-0) 2+ NEGATIVE H [facility] HospitalUrine Glucose (UA)2018-03-10 15:15:00* Test Item Value Reference Range Interpretation Comments Urine Glucose (UA) (test code = 2349-9) NEGATIVE NEGATIVE [facility]Urine Iwsilvq6039-87-19 15:15:00* Test Item Value Reference Range Interpretation Comments Urine Ketones (test code = 00550-0) NEGATIVE NEGATIVE [facility] HospitalUrine Guuapldwqqsk7496-55-66 15:15:00* Test Item Value Reference Range Interpretation Comments Urine Urobilinogen (test code = 78837-3) 0.2 0.2-1 [facility]Urine Rskjqfvyx7886-13-32 15:15:00* Test Item Value Reference Range Interpretation Comments Urine Bilirubin (test code = 1978-6) NEGATIVE NEGATIVE [facility] HospitalUrine Dcqqx9697-67-79 15:15:00* Test Item Value Reference Range Interpretation Comments Urine Blood (test code = 94112-0) 4+ NEGATIVE H [facility] HospitalUrine Hmacw4637-22-21 15:15:00* Test Item Value Reference Range Interpretation Comments Urine Color (test code = 5778-6) STRAW YELLOW [facility]Urine Mvkedjt1831-08-58 15:15:00* Test Item Value Reference Range Interpretation Comments Urine Clarity (test code = 37852-7) CLOUDY CLEAR H [facility] HospitalUrine Specific Skcouba6731-12-26 15:15:00 * Test Item Value Reference Range Interpretation Comments Urine Specific [place] (test code = 5811-5) 1.025 1.010-1.02 5 [facility]Urine aR4377-21-13 15:15:00* Test Item Value Reference Range Interpretation Comments Urine pH (test code = 75461-9) 6 5-7 [facility] Leukocyte Skzhkqnm5340-04-25 15:15:00* Test Item Value Reference Range Interpretation Comments Urine Leukocyte Esterase (test code = 5799-2) 2+ NEGATIVE H [facility] HospitalUrine Nrdabsi0152-42-68 15:15:00* Test Item Value Reference Range Interpretation Comments Urine Nitrite (test code = 31599-2) NEGATIVE NEGATIVE [facility]Urine Yjsjhrd4389-84-18 15:15:00* Test Item Value Reference Range Interpretation Comments Urine Protein (test code = 5804-0) 2+ NEGATIVE H [facility] HospitalUrine Glucose (UA)2018-03-10 15:15:00* Test Item Value Reference Range Interpretation Comments Urine Glucose (UA) (test code = 2349-9) NEGATIVE NEGATIVE [facility]Urine Gjimmns9324-09-42 15:15:00* Test Item Value Reference Range Interpretation Comments Urine Ketones (test code = 24185-7) NEGATIVE NEGATIVE [facility]Urine Svxckhdfbytt9187-46-04 15:15:00* Test Item Value Reference Range Interpretation Comments Urine Urobilinogen (test code = 13218-3) 0.2 0.2-1 [facility]Urine Wjccldren4181-77-32 15:15:00* Test Item Value Reference Range Interpretation Comments Urine Bilirubin (test code = 1978-6) NEGATIVE NEGATIVE [facility]Urine Sxmao1213-04-83 15:15:00* Test Item Value Reference Range Interpretation Comments Urine Blood (test code = 78609-0) 4+ NEGATIVE H [facility] HospitalWhite Blood Ncfar5891-48-73 15:12:00* Test Item Value Reference Range Interpretation Comments White Blood Count (test code = 6690-2) 10.96 4.8-10.8 H [facility] HospitalRed Blood Mozsb7795-15-15 15:12:00* Test Item Value Reference Range Interpretation Comments Red Blood Count (test code = 789-8) 4.03 3.6-5.1 [facility] HospitalHemoglobin2019-01-30 15:12:00* Test Item Value Reference Range Interpretation Comments Hemoglobin (test code = 87590-2) 10.2 12.0-16.0 L [facility] HospitalHematocrit2019-01-30 15:12:00* Test Item Value Reference Range Interpretation Comments Hematocrit (test code = 4544-3) 32.6 34.2-44.1 L [facility] HospitalMean Corpuscular Wdfrtl6848-63-96 15:12:00* Test Item Value Reference Range Interpretation Comments Mean Corpuscular Volume (test code = 787-2) 80.9 81-99 L [facility] HospitalMean Corpuscular Thspnxagdx0260-32-86 15:12:00* Test Item Value Reference Range Interpretation Comments Mean Corpuscular Hemoglobin (test code = 785-6) 25.3 28-32 L [facility] HospitalMean Corpuscular Hemoglobin Concent 2018-03-10 15:12:00* Test Item Value Reference Range Interpretation Comments Mean Corpuscular Hemoglobin Concent (test code = 786-4) 31.3 31-35 [facility] HospitalRed Cell Distribution Fytjf8180-96-50 15:12:00* Test Item Value Reference Range Interpretation Comments Red Cell Distribution Width (test code = 10022-5) 16.8 11.7 -14.4 H [facility] HospitalPlatelet Fblwi8773-29-55 15:12:00* Test Item Value Reference Range Interpretation Comments Platelet Count (test code = 777-3) 289 140-360 [facility] HospitalNeutrophils (%) (Auto)2018-03-10 15:12:00 * Test Item Value Reference Range Interpretation Comments Neutrophils (%) (Auto) (test code = 08486-2) 76.2 38.7-80.0 [facility] HospitalLymphocytes (%) (Auto)2018-03-10 15:12:00 * Test Item Value Reference Range Interpretation Comments Lymphocytes (%) (Auto) (test code = 736-9) 16.4 18.0-39.1 L [facility] HospitalMonocytes (%) (Auto)2018-03-10 15:12:00* Test Item Value Reference Range Interpretation Comments Monocytes (%) (Auto) (test code = 5905-5) 5.6 4.4-11.3 [facility] HospitalEosinophils (%) (Auto)2018-03-10 15:12:00 * Test Item Value Reference Range Interpretation Comments Eosinophils (%) (Auto) (test code = 713-8) 1.0 0.0-6.0 [facility] HospitalBasophils (%) (Auto)2018-03-10 15:12:00* Test Item Value Reference Range Interpretation Comments Basophils (%) (Auto) (test code = 706-2) 0.5 0.0-1.0 [facility] HospitalIM GRANULOCYTES %2018-03-10 15:12:00* Test Item Value Reference Range Interpretation Comments IM GRANULOCYTES % (test code = IM GRANULOCYTES %) 0.3 0.0- 1.0 [facility] HospitalNeutrophils # (Auto)2018-03-10 15:12:00* Test Item Value Reference Range Interpretation Comments Neutrophils # (Auto) (test code = 751-8) 8.4 2.1-6.9 H [facility] HospitalLymphocytes # (Auto)2018-03-10 15:12:00* Test Item Value Reference Range Interpretation Comments Lymphocytes # (Auto) (test code = 35196-1) 1.8 1.0-3.2 [facility] HospitalMonocytes # (Auto)2018-03-10 15:12:00* Test Item Value Reference Range Interpretation Comments Monocytes # (Auto) (test code = 742-7) 0.6 0.2-0.8 [facility] HospitalEosinophils # (Auto)2018-03-10 15:12:00* Test Item Value Reference Range Interpretation Comments Eosinophils # (Auto) (test code = 711-2) 0.1 0.0-0.4 [facility] HospitalBasophils # (Auto)2018-03-10 15:12:00* Test Item Value Reference Range Interpretation Comments Basophils # (Auto) (test code = 704-7) 0.1 0.0-0.1 [facility] HospitalAbsolute Immature Granulocyte (auto 2018-03-10 15:12:00* Test Item Value Reference Range Interpretation Comments Absolute Immature Granulocyte (auto (irena t code = Absolute Immature Granulocyte (auto) 0.03 0-0.1 [facility] HospitalWhite Blood Wruym7912-59-02 15:12:00* Test Item Value Reference Range Interpretation Comments White Blood Count (test code = 6690-2) 10.96 4.8-10.8 H [facility] HospitalRed Blood Xyyxv7398-97-66 15:12:00* Test Item Value Reference Range Interpretation Comments Red Blood Count (test code = 789-8) 4.03 3.6-5.1 [facility] HospitalHemoglobin2019-01-30 15:12:00* Test Item Value Reference Range Interpretation Comments Hemoglobin (test code = 12605-6) 10.2 12.0-16.0 L [facility] HospitalHematocrit2019-01-30 15:12:00* Test Item Value Reference Range Interpretation Comments Hematocrit (test code = 4544-3) 32.6 34.2-44.1 L [facility] HospitalMean Corpuscular Vqlkxp4636-45-79 15:12:00* Test Item Value Reference Range Interpretation Comments Mean Corpuscular Volume (test code = 787-2) 80.9 81-99 L [facility] HospitalMean Corpuscular Adxmovshcx3257-56-85 15:12:00* Test Item Value Reference Range Interpretation Comments Mean Corpuscular Hemoglobin (test code = 785-6) 25.3 28-32 L [facility] HospitalMean Corpuscular Hemoglobin Concent 2018-03-10 15:12:00* Test Item Value Reference Range Interpretation Comments Mean Corpuscular Hemoglobin Concent (test code = 786-4) 31.3 31-35 [facility] HospitalRed Cell Distribution Wejuq3458-50-59 15:12:00* Test Item Value Reference Range Interpretation Comments Red Cell Distribution Width (test code = 22722-3) 16.8 11.7 -14.4 H [facility] HospitalPlatelet Qasqd3275-38-05 15:12:00* Test Item Value Reference Range Interpretation Comments Platelet Count (test code = 777-3) 289 140-360 [facility] HospitalNeutrophils (%) (Auto)2018-03-10 15:12:00 * Test Item Value Reference Range Interpretation Comments Neutrophils (%) (Auto) (test code = 88489-5) 76.2 38.7-80.0 [facility] HospitalLymphocytes (%) (Auto)2018-03-10 15:12:00 * Test Item Value Reference Range Interpretation Comments Lymphocytes (%) (Auto) (test code = 736-9) 16.4 18.0-39.1 L [facility] HospitalMonocytes (%) (Auto)2018-03-10 15:12:00* Test Item Value Reference Range Interpretation Comments Monocytes (%) (Auto) (test code = 5905-5) 5.6 4.4-11.3 [facility] HospitalEosinophils (%) (Auto)2018-03-10 15:12:00 * Test Item Value Reference Range Interpretation Comments Eosinophils (%) (Auto) (test code = 713-8) 1.0 0.0-6.0 [facility] HospitalBasophils (%) (Auto)2018-03-10 15:12:00* Test Item Value Reference Range Interpretation Comments Basophils (%) (Auto) (test code = 706-2) 0.5 0.0-1.0 [facility] HospitalIM GRANULOCYTES %2018-03-10 15:12:00* Test Item Value Reference Range Interpretation Comments IM GRANULOCYTES % (test code = IM GRANULOCYTES %) 0.3 0.0- 1.0 [facility] HospitalNeutrophils # (Auto)2018-03-10 15:12:00* Test Item Value Reference Range Interpretation Comments Neutrophils # (Auto) (test code = 751-8) 8.4 2.1-6.9 H [facility] HospitalLymphocytes # (Auto)2018-03-10 15:12:00* Test Item Value Reference Range Interpretation Comments Lymphocytes # (Auto) (test code = 85329-9) 1.8 1.0-3.2 [facility] HospitalMonocytes # (Auto)2018-03-10 15:12:00* Test Item Value Reference Range Interpretation Comments Monocytes # (Auto) (test code = 742-7) 0.6 0.2-0.8 [facility] HospitalEosinophils # (Auto)2018-03-10 15:12:00* Test Item Value Reference Range Interpretation Comments Eosinophils # (Auto) (test code = 711-2) 0.1 0.0-0.4 [facility] HospitalBasophils # (Auto)2018-03-10 15:12:00* Test Item Value Reference Range Interpretation Comments Basophils # (Auto) (test code = 704-7) 0.1 0.0-0.1 [facility] HospitalAbsolute Immature Granulocyte (auto 2018-03-10 15:12:00* Test Item Value Reference Range Interpretation Comments Absolute Immature Granulocyte (auto (irena t code = Absolute Immature Granulocyte (auto) 0.03 0-0.1 [facility] HospitalCT [facility]BDOMEN[facility]PELVIS VS8868-82-15 13:57:00 [facility] [address] [address] Patient Name: WESLY HUTCHINSON MR #: [id number] : Age/Sex: 57/F Req #: [id number] Adm Physician: Ordered by: LUZ MARINA BONDS MD Report #: [id number] Location: ER Room/Bed: Procedure: 0130-[address]/CT [...] 2:10 PM Dictated By: ANDERS VARGAS MD 09 Transcribed By: DEYANIRA on 03/10/180 COPY TO: LUZ MARINA BONDS MD Urine Xtlwhzk5399-61-58 13:22:00* Test Item Value Reference Range Interpretation Comments Urine Culture (test code = 630-4) Organism: PSEUDO FLUORESCENS/PUTI DA [facility] HospitalUrine Fcpjemr3586-23-49 13:22:00* Test Item Value Reference Range Interpretation Comments Urine Culture (test code = 630-4) Organism: PSEUDO FLUORESCENS/PUTI DA [facility] HospitalUrine Woulrqu2259-36-62 13:22:00* Test Item Value Reference Range Interpretation Comments Urine Culture (test code = 630-4) Organism: PSEUDO FLUORESCENS/PUTI DA [facility] HospitalUrine Tlwzhad2805-17-62 13:22:00* Test Item Value Reference Range Interpretation Comments Urine Culture (test code = 630-4) Organism: PSEUDO FLUORESCENS/PUTI DA [facility] HospitalUrine Cbmkvfk6333-30-86 13:22:00* Test Item Value Reference Range Interpretation Comments Urine Culture (test code = 630-4) Organism: PSEUDO FLUORESCENS/PUTI DA [facility] HospitalUrine SGJ3991-41-50 15:12:00* Test Item Value Reference Range Interpretation Comments Urine WBC (test code = 5821-4) 21-50 0-5 H [facility] HospitalUrine GVV1407-42-45 15:12:00* Test Item Value Reference Range Interpretation Comments Urine RBC (test code = 92700-0) 11-20 0-5 H [facility] HospitalUrine Udcthqiu5069-13-93 15:12:00* Test Item Value Reference Range Interpretation Comments Urine Bacteria (test code = 50083-9) FEW NONE [facility] HospitalUrine Epithelial Wsoxr7102-17-03 15:12:00 * Test Item Value Reference Range Interpretation Comments Urine Epithelial Cells (test code = 77556-7) RARE NONE [facility] HospitalUrine Rcrba0690-54-83 15:00:00* Test Item Value Reference Range Interpretation Comments Urine Color (test code = 5778-6) YELLOW YELLOW [facility] HospitalUrine Zfwmove1292-37-53 15:00:00* Test Item Value Reference Range Interpretation Comments Urine Clarity (test code = 23339-1) HAZY CLEAR [facility] HospitalUrine Specific Cqvrpvl1266-85-41 15:00:00 * Test Item Value Reference Range Interpretation Comments Urine Specific [place] (test code = 5811-5) 1.030 1.010-1.02 5 H [facility] HospitalUrine jB3604-61-55 15:00:00* Test Item Value Reference Range Interpretation Comments Urine pH (test code = 13325-2) 6 5-7 [facility] HospitalUrine Leukocyte Cxqinytt7024-60-86 15:00:00* Test Item Value Reference Range Interpretation Comments Urine Leukocyte Esterase (test code = 5799-2) 2+ NEGATIVE H [facility] HospitalUrine Dexukcc6958-57-24 15:00:00* Test Item Value Reference Range Interpretation Comments Urine Nitrite (test code = 52872-2) NEGATIVE NEGATIVE [facility] HospitalUrine Auvufig1456-41-33 15:00:00* Test Item Value Reference Range Interpretation Comments Urine Protein (test code = 5804-0) 2+ NEGATIVE H [facility] HospitalUrine Glucose (UA)2018-02-21 15:00:00* Test Item Value Reference Range Interpretation Comments Urine Glucose (UA) (test code = 2349-9) NEGATIVE NEGATIVE [facility]Urine Qjznbzp5902-56-91 15:00:00* Test Item Value Reference Range Interpretation Comments Urine Ketones (test code = 16185-2) NEGATIVE NEGATIVE [facility] HospitalU[facility] Ghploxklcvyu9099-97-41 15:00:00* Test Item Value Reference Range Interpretation Comments Urine Urobilinogen (test code = 17015-1) 0.2 0.2-1 [facility] HospitalU[facility] Cznvppher5635-68-88 15:00:00* Test Item Value Reference Range Interpretation Comments Urine Bilirubin (test code = 1978-6) NEGATIVE NEGATIVE [facility] Yiikr8979-58-33 15:00:00* Test Item Value Reference Range Interpretation Comments Urine Blood (test code = 82119-0) 3+ NEGATIVE H [facility] Apsdpso4049-50-37 07:47:00* Test Item Value Reference Range Interpretation Comments Urine Culture (test code = 630-4) Organism: VALERIO ALBICANS [facility] Yhsascp4971-01-09 07:47:00* Test Item Value Reference Range Interpretation Comments Urine Culture (test code = 630-4) Organism: VALERIO ALBICANS [facility] Scduisv2400-55-17 07:47:00* Test Item Value Reference Range Interpretation Comments Urine Culture (test code = 630-4) Organism: VALERIO ALBICANS [facility] Sydkgaw3421-37-81 07:47:00* Test Item Value Reference Range Interpretation Comments Urine Culture (test code = 630-4) Organism: VALERIO ALBICANS [facility] Onqjy0943-40-15 06:39:00* Test Item Value Reference Range Interpretation Comments Sodium Level (test code = 2951-2) 138 136-145 [facility]Potassium Gpfoj6499-97-80 06:39:00* Test Item Value Reference Range Interpretation Comments Potassium Level (test code = 2823-3) 4.2 3.5-5.1 [facility] HospitalChloride Nlywz4280-93-62 06:39:00* Test Item Value Reference Range Interpretation Comments Chloride Level (test code = 2075-0) 105 98-107 [facility] HospitalCarbon Dioxide Ecuia1000-36-71 06:39:00* Test Item Value Reference Range Interpretation Comments Carbon Dioxide Level (test code = 2028-9) 26 22-29 [facility] HospitalAnion Krg7529-45-69 06:39:00* Test Item Value Reference Range Interpretation Comments Anion Gap (test code = 18135-7) 11.2 8-16 [facility] HospitalBlood Urea Kwrormye1064-64-15 06:39:00* Test Item Value Reference Range Interpretation Comments Blood Urea Nitrogen (test code = 3094-0) 16 7-26 [facility] HospitalCreatinine2018-12-04 06:39:00* Test Item Value Reference Range Interpretation Comments Creatinine (test code = 2160-0) 1.18 0.57-1.11 H [facility] HospitalBUN/Creatinine Zcjcd4802-05-04 06:39:00* Test Item Value Reference Range Interpretation Comments BUN/Creatinine Ratio (test code = 3097-3) 14 6-25 [facility] HospitalEstimat Glomerular Filtration Rate 2018-01-12 06:39:00* Test Item Value Reference Range Interpretation Comments Estimat Glomerular Filtration Rate (test code = 323771632) 48 >60 L Ranges were taken from the National Kidney Disease Education Program and the [facility] Foundation literature.Reference ranges:60 or greater: Lxbzrv68-79 ( for 3 consecutive months): Chronic kidney disease 15 or less: Kidney failureMethodist McKinney HospitalGlucose Nsfbt8269-56-96 06:39:00* Test Item Value Reference Range Interpretation Comments Glucose Level (test code = FUS0223) 246 74-118 H [facility] HospitalCalcium Dwrda0224-55-41 06:39:00* Test Item Value Reference Range Interpretation Comments Calcium Level (test code = 06433-4) 9.4 8.4-10.2 [facility] [facility] Muywr5004-26-21 06:39:00* Test Item Value Reference Range Interpretation Comments Sodium Level (test code = 2951-2) 138 136-145 [facility]Potassium Yuxtz7516-17-86 06:39:00* Test Item Value Reference Range Interpretation Comments Potassium Level (test code = 2823-3) 4.2 3.5-5.1 [facility] HospitalChloride Utckc1616-49-49 06:39:00* Test Item Value Reference Range Interpretation Comments Chloride Level (test code = 2075-0) 105 98-107 [facility] HospitalCarbon Dioxide Sburk3606-80-51 06:39:00* Test Item Value Reference Range Interpretation Comments Carbon Dioxide Level (test code = 2028-9) 26 22-29 [facility] HospitalAnion Ves7690-44-97 06:39:00* Test Item Value Reference Range Interpretation Comments Anion Gap (test code = 28662-5) 11.2 8-16 [facility] HospitalBlood Urea Anpnrcty8175-27-17 06:39:00* Test Item Value Reference Range Interpretation Comments Blood Urea Nitrogen (test code = 3094-0) 16 7-26 [facility] HospitalCreatinine2018-12-04 06:39:00* Test Item Value Reference Range Interpretation Comments Creatinine (test code = 2160-0) 1.18 0.57-1.11 H [facility] HospitalBUN/Creatinine Btujk7758-06-09 06:39:00* Test Item Value Reference Range Interpretation Comments BUN/Creatinine Ratio (test code = 3097-3) 14 6-25 [facility] HospitalEstimat Glomerular Filtration Rate 2018-01-12 06:39:00* Test Item Value Reference Range Interpretation Comments Estimat Glomerular Filtration Rate (test code = 764116878) 48 >60 L Ranges were taken from the National Kidney Disease Education Program and the [facility] literature.Reference ranges:60 or greater: Vajasc97-97 ( for 3 consecutive months): Chronic kidney disease 15 or less: Kidney failureMethodist McKinney HospitalGlucose Ccqyc7910-83-78 06:39:00* Test Item Value Reference Range Interpretation Comments Glucose Level (test code = FQQ8513) 246 74-118 H [facility] HospitalCalcium Sshzv4770-95-51 06:39:00* Test Item Value Reference Range Interpretation Comments Calcium Level (test code = 99719-0) 9.4 8.4-10.2 [facility] HospitalWhite Blood Menvt5838-57-97 06:35:00* Test Item Value Reference Range Interpretation Comments White Blood Count (test code = 6690-2) 12.70 4.8-10.8 H [facility] HospitalRed Blood Fbjal3913-95-75 06:35:00* Test Item Value Reference Range Interpretation Comments Red Blood Count (test code = 789-8) 3.76 3.6-5.1 [facility] HospitalHemoglobin2018-12-04 06:35:00* Test Item Value Reference Range Interpretation Comments Hemoglobin (test code = 84856-0) 9.4 12.0-16.0 L [facility] HospitalHematocrit2018-12-04 06:35:00* Test Item Value Reference Range Interpretation Comments Hematocrit (test code = 4544-3) 30.2 34.2-44.1 L [facility] HospitalMean Corpuscular Igwikl2487-68-94 06:35:00* Test Item Value Reference Range Interpretation Comments Mean Corpuscular Volume (test code = 787-2) 80.3 81-99 L [facility] HospitalMean Corpuscular Omulzoombf7426-91-77 06:35:00* Test Item Value Reference Range Interpretation Comments Mean Corpuscular Hemoglobin (test code = 785-6) 25.0 28-32 L [facility] HospitalMean Corpuscular Hemoglobin Concent 2018-01-12 06:35:00* Test Item Value Reference Range Interpretation Comments Mean Corpuscular Hemoglobin Concent (test code = 786-4) 31.1 31-35 [facility] HospitalRed Cell Distribution Audgh6190-84-74 06:35:00* Test Item Value Reference Range Interpretation Comments Red Cell Distribution Width (test code = 57891-7) 15.5 11.7 -14.4 H [facility] HospitalPlatelet Cfkvq4418-55-31 06:35:00* Test Item Value Reference Range Interpretation Comments Platelet Count (test code = 777-3) 336 140-360 [facility] HospitalNeutrophils (%) (Auto)2018-01-12 06:35:00 * Test Item Value Reference Range Interpretation Comments Neutrophils (%) (Auto) (test code = 69282-7) 80.0 38.7-80.0 [facility] HospitalLymphocytes (%) (Auto)2018-01-12 06:35:00 * Test Item Value Reference Range Interpretation Comments Lymphocytes (%) (Auto) (test code = 736-9) 13.9 18.0-39.1 L [facility] HospitalMonocytes (%) (Auto)2018-01-12 06:35:00* Test Item Value Reference Range Interpretation Comments Monocytes (%) (Auto) (test code = 5905-5) 4.7 4.4-11.3 [facility] HospitalEosinophils (%) (Auto)2018-01-12 06:35:00 * Test Item Value Reference Range Interpretation Comments Eosinophils (%) (Auto) (test code = 713-8) 0.1 0.0-6.0 [facility] HospitalBasophils (%) (Auto)2018-01-12 06:35:00* Test Item Value Reference Range Interpretation Comments Basophils (%) (Auto) (test code = 706-2) 0.3 0.0-1.0 [facility] HospitalIM GRANULOCYTES %2018-01-12 06:35:00* Test Item Value Reference Range Interpretation Comments IM GRANULOCYTES % (test code = IM GRANULOCYTES %) 1.0 0.0- 1.0 [facility] HospitalNeutrophils # (Auto)2018-01-12 06:35:00* Test Item Value Reference Range Interpretation Comments Neutrophils # (Auto) (test code = 751-8) 10.2 2.1-6.9 H [facility] HospitalLymphocytes # (Auto)2018-01-12 06:35:00* Test Item Value Reference Range Interpretation Comments Lymphocytes # (Auto) (test code = 41865-2) 1.8 1.0-3.2 [facility] HospitalMonocytes # (Auto)2018-01-12 06:35:00* Test Item Value Reference Range Interpretation Comments Monocytes # (Auto) (test code = 742-7) 0.6 0.2-0.8 [facility] HospitalEosinophils # (Auto)2018-01-12 06:35:00* Test Item Value Reference Range Interpretation Comments Eosinophils # (Auto) (test code = 711-2) 0.0 0.0-0.4 [facility] HospitalBasophils # (Auto)2018-01-12 06:35:00* Test Item Value Reference Range Interpretation Comments Basophils # (Auto) (test code = 704-7) 0.0 0.0-0.1 [facility] HospitalAbsolute Immature Granulocyte (auto 2018-01-12 06:35:00* Test Item Value Reference Range Interpretation Comments Absolute Immature Granulocyte (auto (irena t code = Absolute Immature Granulocyte (auto) 0.13 0-0.1 H [facility] HospitalWhite Blood Hfysx8934-50-42 06:35:00* Test Item Value Reference Range Interpretation Comments White Blood Count (test code = 6690-2) 12.70 4.8-10.8 H [facility] HospitalRed Blood Fzdbt5097-01-77 06:35:00* Test Item Value Reference Range Interpretation Comments Red Blood Count (test code = 789-8) 3.76 3.6-5.1 [facility] HospitalHemoglobin2018-12-04 06:35:00* Test Item Value Reference Range Interpretation Comments Hemoglobin (test code = 77644-5) 9.4 12.0-16.0 L [facility] HospitalHematocrit2018-12-04 06:35:00* Test Item Value Reference Range Interpretation Comments Hematocrit (test code = 4544-3) 30.2 34.2-44.1 L [facility] HospitalMean Corpuscular Llqgqc1267-49-14 06:35:00* Test Item Value Reference Range Interpretation Comments Mean Corpuscular Volume (test code = 787-2) 80.3 81-99 L [facility] HospitalMean Corpuscular Onglxrkzhn7399-82-55 06:35:00* Test Item Value Reference Range Interpretation Comments Mean Corpuscular Hemoglobin (test code = 785-6) 25.0 28-32 L [facility] HospitalMean Corpuscular Hemoglobin Concent 2018-01-12 06:35:00* Test Item Value Reference Range Interpretation Comments Mean Corpuscular Hemoglobin Concent (test code = 786-4) 31.1 31-35 [facility] HospitalRed Cell Distribution Rnjre7922-02-82 06:35:00* Test Item Value Reference Range Interpretation Comments Red Cell Distribution Width (test code = 21616-1) 15.5 11.7 -14.4 H [facility] HospitalPlatelet Titlz4906-67-49 06:35:00* Test Item Value Reference Range Interpretation Comments Platelet Count (test code = 777-3) 336 140-360 [facility] HospitalNeutrophils (%) (Auto)2018-01-12 06:35:00 * Test Item Value Reference Range Interpretation Comments Neutrophils (%) (Auto) (test code = 23969-5) 80.0 38.7-80.0 [facility] HospitalLymphocytes (%) (Auto)2018-01-12 06:35:00 * Test Item Value Reference Range Interpretation Comments Lymphocytes (%) (Auto) (test code = 736-9) 13.9 18.0-39.1 L [facility] HospitalMonocytes (%) (Auto)2018-01-12 06:35:00* Test Item Value Reference Range Interpretation Comments Monocytes (%) (Auto) (test code = 5905-5) 4.7 4.4-11.3 [facility] HospitalEosinophils (%) (Auto)2018-01-12 06:35:00 * Test Item Value Reference Range Interpretation Comments Eosinophils (%) (Auto) (test code = 713-8) 0.1 0.0-6.0 [facility] HospitalBasophils (%) (Auto)2018-01-12 06:35:00* Test Item Value Reference Range Interpretation Comments Basophils (%) (Auto) (test code = 706-2) 0.3 0.0-1.0 [facility] HospitalIM GRANULOCYTES %2018-01-12 06:35:00* Test Item Value Reference Range Interpretation Comments IM GRANULOCYTES % (test code = IM GRANULOCYTES %) 1.0 0.0- 1.0 [facility] HospitalNeutrophils # (Auto)2018-01-12 06:35:00* Test Item Value Reference Range Interpretation Comments Neutrophils # (Auto) (test code = 751-8) 10.2 2.1-6.9 H [facility] HospitalLymphocytes # (Auto)2018-01-12 06:35:00* Test Item Value Reference Range Interpretation Comments Lymphocytes # (Auto) (test code = 97803-4) 1.8 1.0-3.2 [facility] HospitalMonocytes # (Auto)2018-01-12 06:35:00* Test Item Value Reference Range Interpretation Comments Monocytes # (Auto) (test code = 742-7) 0.6 0.2-0.8 [facility] HospitalEosinophils # (Auto)2018-01-12 06:35:00* Test Item Value Reference Range Interpretation Comments Eosinophils # (Auto) (test code = 711-2) 0.0 0.0-0.4 [facility] HospitalBasophils # (Auto)2018-01-12 06:35:00* Test Item Value Reference Range Interpretation Comments Basophils # (Auto) (test code = 704-7) 0.0 0.0-0.1 [facility] HospitalAbsolute Immature Granulocyte (auto 2018-01-12 06:35:00* Test Item Value Reference Range Interpretation Comments Absolute Immature Granulocyte (auto (irena t code = Absolute Immature Granulocyte (auto) 0.13 0-0.1 H [facility] HospitalTotal Xqjsqlxwf0010-19-23 20:34:00* Test Item Value Reference Range Interpretation Comments Total Bilirubin (test code = 1975-2) 0.2 0.2-1.2 [facility] HospitalAspartate Amino Transf (AST/SGOT) 2018-01-08 20:34:00* Test Item Value Reference Range Interpretation Comments Aspartate Amino Transf (AST/SGOT) (test code = Aspartate Amino Transf (AST/SGOT)) 28 5-34 [facility] HospitalAlanine Aminotransferase (ALT/SGPT) 2018-01-08 20:34:00* Test Item Value Reference Range Interpretation Comments Alanine Aminotransferase (ALT/SGPT) (test code = 1742-6) 25 0-55 [facility] HospitalTotal Gwysxth8460-34-99 20:34:00* Test Item Value Reference Range Interpretation Comments Total Protein (test code = 2885-2) 9.4 6.5-8.1 H [facility] HospitalAlbumin2018-11-30 20:34:00* Test Item Value Reference Range Interpretation Comments Albumin (test code = 1751-7) 3.4 3.5-5.0 L [facility] HospitalGlobulin2018-11-30 20:34:00* Test Item Value Reference Range Interpretation Comments Globulin (test code = 06336-4) 6.0 2.3-3.5 H [facility] HospitalAlbumin/Globulin Uoanf7744-08-95 20:34:00 * Test Item Value Reference Range Interpretation Comments Albumin/Globulin Ratio (test code = 1759-0) 0.6 0.8-2.0 L [facility] HospitalAlkaline Ebufuolelwt1202-89-39 20:34:00* Test Item Value Reference Range Interpretation Comments Alkaline Phosphatase (test code = 6768-6) 120 40-150 [facility] HospitalTotal Hrtqwhacg9866-66-81 20:34:00* Test Item Value Reference Range Interpretation Comments Total Bilirubin (test code = 1975-2) 0.2 0.2-1.2 [facility] HospitalAspartate Amino Transf (AST/SGOT) 2018-01-08 20:34:00* Test Item Value Reference Range Interpretation Comments Aspartate Amino Transf (AST/SGOT) (test code = Aspartate Amino Transf (AST/SGOT)) 34 [facility] HospitalAlanine Aminotransferase (ALT/SGPT) 2018-01-08 20:34:00* Test Item Value Reference Range Interpretation Comments Alanine Aminotransferase (ALT/SGPT) (test code = 1742-6) 25 0-55 [facility] Tpzuymy5391-19-06 20:34:00* Test Item Value Reference Range Interpretation Comments Total Protein (test code = 2885-2) 9.4 6.5-8.1 H [facility] HospitalAlbumin2018-11-30 20:34:00* Test Item Value Reference Range Interpretation Comments Albumin (test code = 1751-7) 3.4 3.5-5.0 L [facility] HospitalGlobulin2018-11-30 20:34:00* Test Item Value Reference Range Interpretation Comments Globulin (test code = 97021-3) 6.0 2.3-3.5 H [facility] HospitalAlbumin/Globulin Nqhco7638-60-31 20:34:00 * Test Item Value Reference Range Interpretation Comments Albumin/Globulin Ratio (test code = 1759-0) 0.6 0.8-2.0 L [facility] HospitalAlkaline Dhmwzdzajyp0749-66-64 20:34:00* Test Item Value Reference Range Interpretation Comments Alkaline Phosphatase (test code = 6768-6) 120 40-150 [facility] HospitalUrine Giibn0999-61-52 20:33:00* Test Item Value Reference Range Interpretation Comments Urine Color (test code = 5778-6) YELLOW YELLOW [facility] HospitalUrine Ybwhcuc0060-03-37 20:33:00* Test Item Value Reference Range Interpretation Comments Urine Clarity (test code = 61193-2) HAZY CLEAR [facility] HospitalUrine Specific Mtnyzzq3500-60-14 20:33:00 * Test Item Value Reference Range Interpretation Comments Urine Specific [place] (test code = 5811-5) 1.010 1.010-1.02 5 [facility] HospitalUrine iN3909-04-40 20:33:00* Test Item Value Reference Range Interpretation Comments Urine pH (test code = 23332-7) 7 5-7 [facility] HospitalUrine Leukocyte Twqxnwjy9768-40-57 20:33:00* Test Item Value Reference Range Interpretation Comments Urine Leukocyte Esterase (test code = 5799-2) 2+ NEGATIVE H [facility] HospitalUrine Wfwfnuj3151-93-92 20:33:00* Test Item Value Reference Range Interpretation Comments Urine Nitrite (test code = 53084-9) NEGATIVE NEGATIVE [facility] Nimffcz9953-23-37 20:33:00* Test Item Value Reference Range Interpretation Comments Urine Protein (test code = 5804-0) 2+ NEGATIVE H [facility] Glucose (UA)2018-01-08 20:33:00* Test Item Value Reference Range Interpretation Comments Urine Glucose (UA) (test code = 2349-9) NEGATIVE NEGATIVE [facility] Bzzqkgd2754-53-51 20:33:00* Test Item Value Reference Range Interpretation Comments Urine Ketones (test code = 01365-7) NEGATIVE NEGATIVE [facility] Mhbhclmqqftp2863-62-48 20:33:00* Test Item Value Reference Range Interpretation Comments Urine Urobilinogen (test code = 79875-0) 0.2 0.2-1 [facility] Jaufwljsm5779-71-59 20:33:00* Test Item Value Reference Range Interpretation Comments Urine Bilirubin (test code = 1978-6) NEGATIVE NEGATIVE [facility] HospitalU[facility] Fdank4911-77-95 20:33:00* Test Item Value Reference Range Interpretation Comments Urine Blood (test code = 11161-5) 2+ NEGATIVE H [facility] HospitalUrine EPQ6067-73-86 20:33:00* Test Item Value Reference Range Interpretation Comments Urine WBC (test code = 5821-4) >50 0-5 H [facility] HospitalUrine CMP7936-39-60 20:33:00* Test Item Value Reference Range Interpretation Comments Urine RBC (test code = 69134-9) 11-20 0-5 H [facility] HospitalUrine Tdetdykq6719-18-71 20:33:00* Test Item Value Reference Range Interpretation Comments Urine Bacteria (test code = 55128-8) MANY NONE H [facility] HospitalUrine Epithelial Cffke4447-39-78 20:33:00 * Test Item Value Reference Range Interpretation Comments Urine Epithelial Cells (test code = 41971-7) NONE NONE [facility] HospitalCHEST SINGLE (NOT PORTABLE)2017-12-18 18:00:00 [facility] [address] [address] Patient Name: WESLY HUTCHINSON MR #: [id number] : 1960 Age/Sex: 57/F Req #: [id number] Adm Physician: Ordered by: LIZ MUÑIZ MD Report #: [id number] Location: ER Room/Bed: Procedure: 1109-006 6 DX/CHEST [...] COPY TO: LIZ MUÑIZ MD NEPHROSTOMY CATHETER DKFYNVRH4625-85-97 07:05:00 [address] [place] [address] Patient Name: WESLY HUTCHINSON MR #: [id number] : 1960 Age/Sex: 57/F Req #: [id number] [facility] Physician: VINNY RENDON MD Ordered by: JARET ESPINOSA MD Report #: [id number] Location: MED/SURG2 Room/Bed: [facility] Procedure: [id number] DX/NEPHROSTOMY CATHETER EXCHANGE Exam Date: Exam Ti [...] placed through the catheter. A new 10 [place] all-purpose drainage catheter was then placed into the renal pelvis. Contrast injection confirms a ppropriate position. Catheter was secured to the skin with a sterile dressing . Impression: Successful right percutaneous nephrostomy catheter excha nge. Signed by: Dr. Brendon Chappell DO on 12/18/2017 7:11 AM Dictated By: BRENDON CHAPPELL DO 1 Transcribed By: DEYANIRA on 12/18/17710 COPY TO: JARET ESPINOSA MD Blood Boivfea7290-02-20 16:51:00* Test Item Value Reference Range Interpretation Comments Blood Culture (test code = 09865694) NO GROWTH AFTER 5 DAYS, FINAL REPORT [facility]2018-11-06 16:51:00* Test Item Value Reference Range Interpretation Comments Blood Culture (test code = 67683245) NO GROWTH AFTER 5 DAYS, FINAL REPORT [facility]2018-11-06 16:51:00* Test Item Value Reference Range Interpretation Comments Blood Culture (test code = 75641732) NO GROWTH AFTER 5 DAYS, FINAL REPORT [facility]2018-11-06 16:51:00* Test Item Value Reference Range Interpretation Comments Blood Culture (test code = 23361841) NO GROWTH AFTER 5 DAYS, FINAL REPORT [facility]2018-11-05 13:21:00* Test Item Value Reference Range Interpretation Comments Urine Culture (test code = 630-4) Organism: ESCHERICHIA COLI-ESBL [facility]2018-11-05 13:21:00* Test Item Value Reference Range Interpretation Comments Urine Culture (test code = 630-4) Organism: ESCHERICHIA COLI-ESBL [facility]2018-11-05 13:21:00* Test Item Value Reference Range Interpretation Comments Urine Culture (test code = 630-4) Organism: ESCHERICHIA COLI-ESBL [facility]2018-11-05 13:21:00* Test Item Value Reference Range Interpretation Comments Urine Culture (test code = 630-4) Organism: ESCHERICHIA COLI-ESBL [facility] Nhppn8511-80-09 19:12:00* Test Item Value Reference Range Interpretation Comments Magnesium Level (test code = 08042-7) 1.7 1.3-2.1 [facility] Ypcch8010-36-89 19:12:00* Test Item Value Reference Range Interpretation Comments Magnesium Level (test code = 21684-7) 1.7 1.3-2.1 [facility] Cekul7940-08-65 19:12:00* Test Item Value Reference Range Interpretation Comments Magnesium Level (test code = 80877-6) 1.7 1.3-2.1 [facility] Kiuhg7835-58-20 19:12:00* Test Item Value Reference Range Interpretation Comments Magnesium Level (test code = 27276-8) 1.7 1.3-2.1 [facility]2018-11-02 19:12:00* Test Item Value Reference Range Interpretation Comments Magnesium Level (test code = 25536-4) 1.7 1.3-2.1 [facility]2018-11-02 19:12:00* Test Item Value Reference Range Interpretation Comments Magnesium Level (test code = 22999-8) 1.7 1.3-2.1 [facility]2018-11-02 19:12:00* Test Item Value Reference Range Interpretation Comments Magnesium Level (test code = 01361-4) 1.7 1.3-2.1 [facility]2018-11-02 19:12:00* Test Item Value Reference Range Interpretation Comments Magnesium Level (test code = 00021-0) 1.7 1.3-2.1 [facility]2018-11-02 19:12:00* Test Item Value Reference Range Interpretation Comments Magnesium Level (test code = 83778-4) 1.7 1.3-2.1 [facility] Acid Tfhto2728-57-39 17:57:00* Test Item Value Reference Range Interpretation Comments Lactic Acid Level (test code = Lactic Acid Level) 17.4 4.5- 19.8 [facility] Rzhdy3066-29-34 17:57:00* Test Item Value Reference Range Interpretation Comments Lactic Acid Level (test code = Lactic Acid Level) 17.4 4.5- 19.8 [facility] Qwhgb0806-06-66 17:57:00* Test Item Value Reference Range Interpretation Comments Lactic Acid Level (test code = Lactic Acid Level) 17.4 4.5- 19.8 [facility] Acid Bjvia4364-44-68 17:57:00* Test Item Value Reference Range Interpretation Comments Lactic Acid Level (test code = Lactic Acid Level) 17.4 4.5- 19.8 [facility] Acid Bmyxr7634-64-72 17:57:00* Test Item Value Reference Range Interpretation Comments Lactic Acid Level (test code = Lactic Acid Level) 17.4 4.5- 19.8 [facility] Rtgbw7051-49-65 17:57:00* Test Item Value Reference Range Interpretation Comments Lactic Acid Level (test code = Lactic Acid Level) 17.4 4.5- 19.8 [facility] Acid Ecszu6066-80-02 17:57:00* Test Item Value Reference Range Interpretation Comments Lactic Acid Level (test code = Lactic Acid Level) 17.4 4.5- 19.8 [facility] Acid Hltix0939-28-67 17:57:00* Test Item Value Reference Range Interpretation Comments Lactic Acid Level (test code = Lactic Acid Level) 17.4 4.5- 19.8 [facility] Acid Xpytb2102-42-87 17:57:00* Test Item Value Reference Range Interpretation Comments Lactic Acid Level (test code = Lactic Acid Level) 17.4 4.5- 19.8 [facility]2018-11-01 14:26:00* Test Item Value Reference Range Interpretation Comments Urine Yeast (test code = 67676-6) FEW NONE [facility]2018-11-01 14:26:00* Test Item Value Reference Range Interpretation Comments Urine Yeast (test code = 97125-0) FEW NONE [facility]2018-11-01 14:26:00* Test Item Value Reference Range Interpretation Comments Urine Yeast (test code = 62760-6) FEW NONE [facility] Aijsm4228-29-80 14:26:00* Test Item Value Reference Range Interpretation Comments Urine Yeast (test code = 28473-4) FEW NONE [facility] Ohodj8001-76-98 14:26:00* Test Item Value Reference Range Interpretation Comments Urine Yeast (test code = 17739-1) FEW NONE [facility] Crgqg3356-89-43 14:26:00* Test Item Value Reference Range Interpretation Comments Urine Yeast (test code = 84398-5) FEW NONE [facility] Wzoym1305-57-61 14:26:00* Test Item Value Reference Range Interpretation Comments Urine Yeast (test code = 48996-0) FEW NONE [facility] Utvsm2119-75-34 14:26:00* Test Item Value Reference Range Interpretation Comments Urine Yeast (test code = 22961-4) [facility] Gqycv0044-37-97 14:26:00* Test Item Value Reference Range Interpretation Comments Urine Yeast (test code = 02441-3) [facility]W [facility]/PELVIS PT6164-95-98 12:56:00 [address] [place] [address] Patient Name: WESLY HUTCHINSON MR #: [id number] : Age/Sex: 57/F Req #: [id number] Adm Physician: Ordered by: SAMEER LOBO MD Report #: [id number] Location: ER Room/Bed: Procedure: [id number] -0019 CT/CT [...] 12/10/2017 1:09 PM Dictated By: EDUAR Flowers 1309 Transcribed B y: DEYANIRA on 12/10/17 1404 COPY TO: SAMEER LOBO MD Urine Nykffpx7458-09-53 14:55:00* Test Item Value Reference Range Interpretation Comments Urine Culture (test code = 630-4) Organism: PSEUDOMONAS AERUGINOSA [facility]2018-10-25 14:55:00* Test Item Value Reference Range Interpretation Comments Urine Culture (test code = 630-4) Organism: PSEUDOMONAS AERUGINOSA [facility]2018-10-25 14:55:00* Test Item Value Reference Range Interpretation Comments Urine Culture (test code = 630-4) Organism: PSEUDOMONAS AERUGINOSA [facility]2018-10-25 14:55:00* Test Item Value Reference Range Interpretation Comments Urine Culture (test code = 630-4) Organism: PSEUDOMONAS AERUGINOSA [facility]2018-10-25 14:52:00* Test Item Value Reference Range Interpretation Comments Urine Culture (test code = 630-4) Organism: PSEUDOMONAS AERUGINOSA [facility] [facility] 14:52:00* Test Item Value Reference Range Interpretation Comments Urine Culture (test code = 630-4) Organism: PSEUDOMONAS AERUGINOSA [facility]2018-10-25 14:52:00* Test Item Value Reference Range Interpretation Comments Urine Culture (test code = 630-4) Organism: PSEUDOMONAS AERUGINOSA [facility]2018-10-25 14:52:00* Test Item Value Reference Range Interpretation Comments Urine Culture (test code = 630-4) Organism: PSEUDOMONAS AERUGINOSA [facility]2018-10-25 14:52:00* Test Item Value Reference Range Interpretation Comments Urine Culture (test code = 630-4) Organism: PSEUDOMONAS AERUGINOSA [facility]2018-10-25 14:52:00* Test Item Value Reference Range Interpretation Comments Urine Culture (test code = 630-4) Organism: PSEUDOMONAS AERUGINOSA [facility]2018-10-25 14:52:00* Test Item Value Reference Range Interpretation Comments Urine Culture (test code = 630-4) Organism: PSEUDOMONAS AERUGINOSA [facility] Faeccnp5920-35-47 14:52:00* Test Item Value Reference Range Interpretation Comments Urine Culture (test code = 630-4) Organism: PSEUDOMONAS AERUGINOSA [facility] Ceafaeb6786-40-71 14:52:00* Test Item Value Reference Range Interpretation Comments Urine Culture (test code = 630-4) Organism: PSEUDOMONAS AERUGINOSA [facility] Lqiaa9852-28-88 19:16:00* Test Item Value Reference Range Interpretation Comments Amylase Level (test code = 1798-8) 46 [facility]2018-10-[facility] 19:16:00* Test Item Value Reference Range Interpretation Comments Lipase (test code = 3040-3) [facility] Asiog8295-06-34 19:16:00* Test Item Value Reference Range Interpretation Comments Amylase Level (test code = 1798-8) 46 [facility]2018-10-22 19:16:00* Test Item Value Reference Range Interpretation Comments Lipase (test code = 3040-3) [facility] Mavgt6083-34-81 19:16:00* Test Item Value Reference Range Interpretation Comments Amylase Level (test code = 1798-8) 46 [facility]2018-10-22 19:16:00* Test Item Value Reference Range Interpretation Comments Lipase (test code = 3040-3) [facility] Ujoft4052-60-48 19:16:00* Test Item Value Reference Range Interpretation Comments Amylase Level (test code = 1798-8) 46 [facility]2018-10-22 19:16:00* Test Item Value Reference Range Interpretation Comments Lipase (test code = 3040-3) [facility] Htvxj4763-33-05 19:16:00* Test Item Value Reference Range Interpretation Comments Amylase Level (test code = 1798-8) 46 [facility]2018-10-22 19:16:00* Test Item Value Reference Range Interpretation Comments Lipase (test code = 3040-3) [facility] Uqmhn9446-87-73 19:16:00* Test Item Value Reference Range Interpretation Comments Amylase Level (test code = 1798-8) 46 -125 [facility]2018-10-22 19:16:00* Test Item Value Reference Range Interpretation Comments Lipase (test code = 3040-3) [facility] Drayr6922-01-63 19:16:00* Test Item Value Reference Range Interpretation Comments Amylase Level (test code = 1798-8) 46 [facility]2018-10-22 19:16:00* Test Item Value Reference Range Interpretation Comments Lipase (test code = 3040-3) [facility] Odkda3482-75-44 19:16:00* Test Item Value Reference Range Interpretation Comments Amylase Level (test code = 1798-8) 46 -125 [facility]2018-10-22 19:16:00* Test Item Value Reference Range Interpretation Comments Lipase (test code = 3040-3) [facility] Ceodo0933-66-62 19:16:00* Test Item Value Reference Range Interpretation Comments Amylase Level (test code = 1798-8) 46 125 [facility]2018-10-22 19:16:00* Test Item Value Reference Range Interpretation Comments Lipase (test code = 3040-3) [facility]PELVIS VY3408-42-21 18:26:00 [facility] [address] [place] [address] Patient Name: WESLY HUTCHINSON MR #: [id number] : Age/Sex: 57/F Req #: [id number] Adm Physician: Ordered by: PAIGE GIBSON NP Report #: [id number] Location: ER Room/Bed: Procedure: [id number] -[id number] CT/CT [...] TO: PAIGE GIBSON NP RENAL SCAN W/FLOW YDDLQIUR0648-97-96 19:56:00 [place] [address] Patient Name: WESLY HUTCHINSON MR #: [id number] : 1960 Age/Sex: 57/F Req #: [id number] [facility] Physician: Ordered by: JARET ESPINOSA MD Report #: [id number] Location: [place] Room/Bed: Procedure: [id number] NM/RENAL SCAN W/FLOW FUNCTION Ex am Date: 11/05/17 Exam Time: 1510 REPORT STATUS : Signed Renal Scan Reason for exam: 57 F with vesicoureteral reflux . Radiopharmaceutical: Tc-99m MAG3 11 mCi Report: After administratio n of the radiopharmaceutical, dynamic images of the kidneys were obtained thro [facility] 40 minutes. LEFT KIDNEY: Perfusion is prompt. [...] JARET ESPINOSA MD IR CONSULT 2017-09-22 07:24:00 [facility] [address] [address] Patient Name: WESLY HUTCHINSON MR #: [id number] : 1960 Age/Sex: 56/F Req #: [id number] Adm Physician: VIKY MONTOYA MD Ordered by: JARET ESPINOSA MD Report #: [id number] Location: MED/SURG3 Room/Bed: [facility] Procedure: DX/IR CONSULT Exam Date: Exam Time: REPORT STATUS: Signed Nephrostomy catheter evaluation and fluoroscopic exchange Pre-Pr ocedure Diagnosis: Cervical cancer status post radiation therapy with right ur eteral stenosis. Post-procedure Diagnosis:Cervical cancer status post radiatio n therapy with right ureteral stenosis Plastics Tooling Engineer: Mode Donald MD Assista nt: None Sedation: [...] TO: JARET ESPINOSA MD SPECIAL PROCEDURE IN MARKETING TRAFFIC COORDINATOR 2017-09-22 07:24:00 [place] [address] Patient Name: WESLY HUTCHINSON MR #: [id number] : 1960 Age/Sex: 56/F Req #: [id number] [facility] Physician: VIKY MONTOYA MD Ordered by: JARET ESPINOSA MD Report #: [id number] Location: MED/SURG3 Room/Bed: [facility] Procedure: [id number] IR/SPE CIAL PROCEDURE IN MARKETING TRAFFIC COORDINATOR Exam Date: Exam Time: REPORT STATUS: Signed Nephrostomy catheter evaluation and fluoroscopic e xchange Pre-Procedure Diagnosis: Cervical cancer status post radiation ther apy with right ureteral stenosis. Post-procedure Diagnosis:Cervical cancer s tatus post radiation therapy with right ureteral stenosis Plastics Tooling Engineer: Kimber Donald MD It Assistant: None Sedation: Local 5 cc of 1% subcutaneous lidocaine Radiation Dose:235 cGycm2 (Dose Area Product) Fluoroscopy time 1.1 pearl irean Estimate blood loss: None Blood administered: None [...] COPY TO: JARET ESPINOSA MD Bacterial urine oykypnb0187-83-95 06:08:00* Test Item Value Reference Range Interpretation Comments Urine Culture (test code = 630-4) Organism: KLEBSIELLA PNEUMONIAE-E SBL [facility] urine uhrozqu2927-66-84 06:08:00* Test Item Value Reference Range Interpretation Comments Urine Culture (test code = 630-4) Organism: KLEBSIELLA PNEUMONIAE-E SBL [facility] HospitalCHEST XRAY LINE AVCQZGYQC3337-74-87 11:46:00 [place] [address] Patient Name: WESLY HUTCHINSON MR #: [id number] : 1960 Age/Sex: 56/F Req #: [id number] Adm Physician: VIKY MONTOYA MD Ordered by: JARET ESPINOSA MD Report #: [id number] Location: MED/SURG3 Room/Bed: 2901 Procedure: [id number] DX/TRACY ST XRAY LINE PLACEMENT Exam Date: [...] COPY T O: JARET ESPINOSA MD Platelet Lkvnqtip6463-02-67 07:05:00* Test Item Value Reference Range Interpretation Comments Platelet Estimate (test code = 44617-1) [facility] Cfubgxq2563-35-03 07:05:00* Test Item Value Reference Range Interpretation Comments Platelet Morphology Comment (test code = 43339-5) NORMAL NO CLUMPS. 0705 on 09/21/17 by Magui Robles [facility] Pseckpzsjoses8869-36-48 07:05:00* Test Item Value Reference Range Interpretation Comments Hypochromasia (test code = 728-6) SLIGHT [facility] Morphology Britcul2027-56-19 07:05:00* Test Item Value Reference Range Interpretation Comments Red Cell Morphology Comment (test code = 6742-1) NORMAL [facility] HospitalPlatelet Jumdtfwq9806-68-22 07:05:00* Test Item Value Reference Range Interpretation Comments Platelet Estimate (test code = 98143-6) ADEQUATE [facility] Morphology Uufuadz8850-38-52 07:05:00* Test Item Value Reference Range Interpretation Comments Platelet Morphology Comment (test code = 70595-4) NORMAL NO CLUMPS. 07 on 09/21/17 by [facility] Kyfcmwfdtonsk3305-38-10 07:05:00* Test Item Value Reference Range Interpretation Comments Hypochromasia (test code = 728-6) SLIGHT [facility] Morphology Npyvpbg4620-60-69 07:05:00* Test Item Value Reference Range Interpretation Comments Red Cell Morphology Comment (test code = 6742-1) NORMAL [facility] HospitalPlatelet Amdhdjoo5503-16-20 07:05:00* Test Item Value Reference Range Interpretation Comments Platelet Estimate (test code = 85985-3) ADEQUATE [facility] Morphology Hdsftyp2252-93-95 07:05:00* Test Item Value Reference Range Interpretation Comments Platelet Morphology Comment (test code = 23959-0) NORMAL NO CLUMPS. 704 on 09/21/17 by [facility] Diwoptbvkhtnh5351-27-44 07:05:00* Test Item Value Reference Range Interpretation Comments Hypochromasia (test code = 728-6) SLIGHT [facility] Psshnav1242-62-08 07:05:00* Test Item Value Reference Range Interpretation Comments Red Cell Morphology Comment (test code = 6742-1) NORMAL [facility] HospitalPlate[facility] Gjqeadsf0217-33-49 07:05:00* Test Item Value Reference Range Interpretation Comments Platelet Estimate (test code = 80058-2) ADEQUATE [facility] Morphology Yxbfgub8907-19-58 07:05:00* Test Item Value Reference Range Interpretation Comments Platelet Morphology Comment (test code = 21589-5) NORMAL NO CLUMPS. 07 on 09/21/17 by [facility] Toworhqppbxxy4752-49-87 07:05:00* Test Item Value Reference Range Interpretation Comments Hypochromasia (test code = 728-6) SLIGHT [facility] Morphology Yvnwhik8183-43-40 07:05:00* Test Item Value Reference Range Interpretation Comments Red Cell Morphology Comment (test code = 6742-1) NORMAL [facility] HospitalPlate[facility] Lhrazwmu8791-16-40 07:05:00* Test Item Value Reference Range Interpretation Comments Platelet Estimate (test code = 32899-4) [facility]QUATE [facility] Wpwjcch3836-71-25 07:05:00* Test Item Value Reference Range Interpretation Comments Platelet Morphology Comment (test code = 22224-9) NORMAL NO CLUMPS. 704 on 09/21/17 by [facility] Cjqcuzegjxmsi6489-00-95 07:05:00* Test Item Value Reference Range Interpretation Comments Hypochromasia (test code = 728-6) SLIGHT [facility] Morphology Euharzq9801-54-76 07:05:00* Test Item Value Reference Range Interpretation Comments Red Cell Morphology Comment (test code = 6742-1) NORMAL [facility] HospitalPlatelet Rcsjvprr5912-65-29 07:05:00* Test Item Value Reference Range Interpretation Comments Platelet Estimate (test code = 37900-0) ADEQUATE [facility]Pl[facility] Morphology Aedvmho6380-70-76 07:05:00* Test Item Value Reference Range Interpretation Comments Platelet Morphology Comment (test code = 01994-6) NORMAL NO CLUMPS. 704 on 09/21/17 by [facility] Mhazedgzyjdco5204-45-29 07:05:00* Test Item Value Reference Range Interpretation Comments Hypochromasia (test code = 728-6) SLIGHT [facility] Morphology Ewkmrdd7944-61-87 07:05:00* Test Item Value Reference Range Interpretation Comments Red Cell Morphology Comment (test code = 6742-1) NORMAL [facility] HospitalPlatelet Ldbufvgb0059-92-08 07:05:00* Test Item Value Reference Range Interpretation Comments Platelet Estimate (test code = 59612-6) [facility]QUATE [facility] Morphology Ornfvep0717-05-38 07:05:00* Test Item Value Reference Range Interpretation Comments Platelet Morphology Comment (test code = 07073-8) NORMAL NO CLUMPS. 0705 on 09/21/17 by [facility] Flovfxogifbee5326-35-97 07:05:00* Test Item Value Reference Range Interpretation Comments Hypochromasia (test code = 728-6) SLIGHT [facility]Red [facility] Morphology Uesiwaa2523-37-09 07:05:00* Test Item Value Reference Range Interpretation Comments Red Cell Morphology Comment (test code = 6742-1) NORMAL [facility] HospitalPlatelet Mfxlvdyw2204-15-07 07:05:00* Test Item Value Reference Range Interpretation Comments Platelet Estimate (test code = 23284-9) ADEQUATE [facility]Pl[facility] Morphology Bjuxflf1696-80-76 07:05:00* Test Item Value Reference Range Interpretation Comments Platelet Morphology Comment (test code = 90877-9) NORMAL NO CLUMPS. 07 on 09/21/17 by [facility] Todbduedpskcp0008-48-33 07:05:00* Test Item Value Reference Range Interpretation Comments Hypochromasia (test code = 728-6) SLIGHT [facility] HospitalRed [facility] Morphology Zrtesoi6000-86-64 07:05:00* Test Item Value Reference Range Interpretation Comments Red Cell Morphology Comment (test code = 6742-1) NORMAL [facility] HospitalPlatelet Tbioyhwg6980-82-33 07:05:00* Test Item Value Reference Range Interpretation Comments Platelet Estimate (test code = 15099-0) ADEQUATE [facility]Pl[facility] Morphology Grcrgti7426-95-14 07:05:00* Test Item Value Reference Range Interpretation Comments Platelet Morphology Comment (test code = 50324-2) NORMAL NO CLUMPS. 0705 on 09/21/17 by Magui Robles [facility] Fthyfucokxagd7953-41-15 07:05:00* Test Item Value Reference Range Interpretation Comments Hypochromasia (test code = 728-6) SLIGHT [facility] HospitalRed [facility] Morphology Iympese3541-73-27 07:05:00* Test Item Value Reference Range Interpretation Comments Red Cell Morphology Comment (test code = 6742-1) NORMAL [facility] HospitalBacterial urine iwmmqkq9114-68-92 06:42:00* Test Item Value Reference Range Interpretation Comments Urine Culture (test code = 630-4) Organism: KLEBSIELLA PNEUMONIAE-E SBL#2 [facility] HospitalBacterial urine xmmawhw7117-57-49 06:42:00* Test Item Value Reference Range Interpretation Comments Urine Culture (test code = 630-4) Organism: KLEBSIELLA PNEUMONIAE-E SBL#2 [facility] HospitalWhite Blood Cxsnz9742-24-18 06:24:00* Test Item Value Reference Range Interpretation Comments White Blood Count (test code = 6690-2) 8.38 4.8-10.8 [facility] HospitalRed Blood Bnrao1547-72-09 06:24:00* Test Item Value Reference Range Interpretation Comments Red Blood Count (test code = 789-8) 3.76 3.6-5.1 [facility] HospitalHemoglobin2018-08-13 06:24:00* Test Item Value Reference Range Interpretation Comments Hemoglobin (test code = 86293-3) 9.6 12.0-16.0 L [facility] HospitalHematocrit2018-08-13 06:24:00* Test Item Value Reference Range Interpretation Comments Hematocrit (test code = 4544-3) 31.3 34.2-44.1 L [facility] HospitalMean Corpuscular Zexoxo9174-20-35 06:24:00* Test Item Value Reference Range Interpretation Comments Mean Corpuscular Volume (test code = 787-2) 83.2 81-99 [facility] HospitalMean Corpuscular Vtjqwcjdqf9295-22-09 06:24:00* Test Item Value Reference Range Interpretation Comments Mean Corpuscular Hemoglobin (test code = 785-6) 25.5 28-32 L [facility] HospitalMean Corpuscular Hemoglobin Concent 2017-09-21 06:24:00* Test Item Value Reference Range Interpretation Comments Mean Corpuscular Hemoglobin Concent (test code = 786-4) 30.7 31-35 L [facility] HospitalRed Cell Distribution Yvbof4621-67-66 06:24:00* Test Item Value Reference Range Interpretation Comments Red Cell Distribution Width (test code = 04062-8) 15.0 11.7 -14.4 H [facility] HospitalPlatelet Zpklt0759-64-92 06:24:00* Test Item Value Reference Range Interpretation Comments Platelet Count (test code = 777-3) 302 140-360 [facility] HospitalNeutrophils (%) (Auto)2017-09-21 06:24:00 * Test Item Value Reference Range Interpretation Comments Neutrophils (%) (Auto) (test code = 97022-9) 58.2 38.7-80.0 [facility] HospitalLymphocytes (%) (Auto)2017-09-21 06:24:00 * Test Item Value Reference Range Interpretation Comments Lymphocytes (%) (Auto) (test code = 736-9) 31.7 18.0-39.1 [facility] HospitalMonocytes (%) (Auto)2017-09-21 06:24:00* Test Item Value Reference Range Interpretation Comments Monocytes (%) (Auto) (test code = 5905-5) 7.0 4.4-11.3 [facility] HospitalEosinophils (%) (Auto)2017-09-21 06:24:00 * Test Item Value Reference Range Interpretation Comments Eosinophils (%) (Auto) (test code = 713-8) 1.9 0.0-6.0 [facility] HospitalBasophils (%) (Auto)2017-09-21 06:24:00* Test Item Value Reference Range Interpretation Comments Basophils (%) (Auto) (test code = 706-2) 0.6 0.0-1.0 [facility] HospitalIM GRANULOCYTES %2017-09-21 06:24:00* Test Item Value Reference Range Interpretation Comments IM GRANULOCYTES % (test code = IM GRANULOCYTES %) 0.6 0.0- 1.0 [facility] HospitalNeutrophils # (Auto)2017-09-21 06:24:00* Test Item Value Reference Range Interpretation Comments Neutrophils # (Auto) (test code = 751-8) 4.9 2.1-6.9 [facility] HospitalLymphocytes # (Auto)2017-09-21 06:24:00* Test Item Value Reference Range Interpretation Comments Lymphocytes # (Auto) (test code = 53497-0) 2.7 1.0-3.2 [facility] HospitalMonocytes # (Auto)2017-09-21 06:24:00* Test Item Value Reference Range Interpretation Comments Monocytes # (Auto) (test code = 742-7) 0.6 0.2-0.8 [facility] HospitalEosinophils # (Auto)2017-09-21 06:24:00* Test Item Value Reference Range Interpretation Comments Eosinophils # (Auto) (test code = 711-2) 0.2 0.0-0.4 [facility] HospitalBasophils # (Auto)2017-09-21 06:24:00* Test Item Value Reference Range Interpretation Comments Basophils # (Auto) (test code = 704-7) 0.1 0.0-0.1 [facility] HospitalAbsolute Immature Granulocyte (auto 2017-09-21 06:24:00* Test Item Value Reference Range Interpretation Comments Absolute Immature Granulocyte (auto (irena t code = Absolute Immature Granulocyte (auto) 0.05 0-0.1 [facility] HospitalWhite Blood Zmvub0641-93-37 06:24:00* Test Item Value Reference Range Interpretation Comments White Blood Count (test code = 6690-2) 8.38 4.8-10.8 [facility] HospitalRed Blood Bfzvy3276-43-91 06:24:00* Test Item Value Reference Range Interpretation Comments Red Blood Count (test code = 789-8) 3.76 3.6-5.1 [facility] HospitalHemoglobin2018-08-13 06:24:00* Test Item Value Reference Range Interpretation Comments Hemoglobin (test code = 29693-4) 9.6 12.0-16.0 L [facility] HospitalHematocrit2018-08-13 06:24:00* Test Item Value Reference Range Interpretation Comments Hematocrit (test code = 4544-3) 31.3 34.2-44.1 L [facility] HospitalMean Corpuscular Xednfj6428-00-35 06:24:00* Test Item Value Reference Range Interpretation Comments Mean Corpuscular Volume (test code = 787-2) 83.2 81-99 [facility] HospitalMean Corpuscular Mrfuiymwih1171-60-66 06:24:00* Test Item Value Reference Range Interpretation Comments Mean Corpuscular Hemoglobin (test code = 785-6) 25.5 28-32 L [facility] HospitalMean Corpuscular Hemoglobin Concent 2017-09-21 06:24:00* Test Item Value Reference Range Interpretation Comments Mean Corpuscular Hemoglobin Concent (test code = 786-4) 30.7 31-35 L [facility] HospitalRed Cell Distribution Szgdg3224-44-18 06:24:00* Test Item Value Reference Range Interpretation Comments Red Cell Distribution Width (test code = 86467-0) 15.0 11.7 -14.4 H [facility] HospitalPlatelet Hsmao4661-41-67 06:24:00* Test Item Value Reference Range Interpretation Comments Platelet Count (test code = 777-3) 302 140-360 [facility] HospitalNeutrophils (%) (Auto)2017-09-21 06:24:00 * Test Item Value Reference Range Interpretation Comments Neutrophils (%) (Auto) (test code = 13709-4) 58.2 38.7-80.0 [facility] HospitalLymphocytes (%) (Auto)2017-09-21 06:24:00 * Test Item Value Reference Range Interpretation Comments Lymphocytes (%) (Auto) (test code = 736-9) 31.7 18.0-39.1 [facility] HospitalMonocytes (%) (Auto)2017-09-21 06:24:00* Test Item Value Reference Range Interpretation Comments Monocytes (%) (Auto) (test code = 5905-5) 7.0 4.4-11.3 [facility] HospitalEosinophils (%) (Auto)2017-09-21 06:24:00 * Test Item Value Reference Range Interpretation Comments Eosinophils (%) (Auto) (test code = 713-8) 1.9 0.0-6.0 [facility] HospitalBasophils (%) (Auto)2017-09-21 06:24:00* Test Item Value Reference Range Interpretation Comments Basophils (%) (Auto) (test code = 706-2) 0.6 0.0-1.0 [facility] HospitalIM GRANULOCYTES %2017-09-21 06:24:00* Test Item Value Reference Range Interpretation Comments IM GRANULOCYTES % (test code = IM GRANULOCYTES %) 0.6 0.0- 1.0 [facility] HospitalNeutrophils # (Auto)2017-09-21 06:24:00* Test Item Value Reference Range Interpretation Comments Neutrophils # (Auto) (test code = 751-8) 4.9 2.1-6.9 [facility] HospitalLymphocytes # (Auto)2017-09-21 06:24:00* Test Item Value Reference Range Interpretation Comments Lymphocytes # (Auto) (test code = 98743-4) 2.7 1.0-3.2 [facility] HospitalMonocytes # (Auto)2017-09-21 06:24:00* Test Item Value Reference Range Interpretation Comments Monocytes # (Auto) (test code = 742-7) 0.6 0.2-0.8 [facility] HospitalEosinophils # (Auto)2017-09-21 06:24:00* Test Item Value Reference Range Interpretation Comments Eosinophils # (Auto) (test code = 711-2) 0.2 0.0-0.4 [facility] HospitalBasophils # (Auto)2017-09-21 06:24:00* Test Item Value Reference Range Interpretation Comments Basophils # (Auto) (test code = 704-7) 0.1 0.0-0.1 [facility] HospitalAbsolute Immature Granulocyte (auto 2017-09-21 06:24:00* Test Item Value Reference Range Interpretation Comments Absolute Immature Granulocyte (auto (irena t code = Absolute Immature Granulocyte (auto) 0.05 0-0.1 [facility]ressodium Iaufz8285-27-50 06:13:00* Test Item Value Reference Range Interpretation Comments Sodium Level (test code = 2951-2) 141 136-145 [facility] HospitalPotassium Kojwv6854-05-73 06:13:00* Test Item Value Reference Range Interpretation Comments Potassium Level (test code = 2823-3) 3.7 3.5-5.1 [facility] HospitalChloride Llarv6371-16-97 06:13:00* Test Item Value Reference Range Interpretation Comments Chloride Level (test code = 2075-0) 107 98-107 [facility] HospitalCarbon Dioxide Cmhro2647-32-34 06:13:00* Test Item Value Reference Range Interpretation Comments Carbon Dioxide Level (test code = 2028-9) 23 22-29 [facility] HospitalAnion Tkn3938-32-97 06:13:00* Test Item Value Reference Range Interpretation Comments Anion Gap (test code = 16473-5) 14.7 8-16 [facility] HospitalBlood Urea Haiheesr9277-50-80 06:13:00* Test Item Value Reference Range Interpretation Comments Blood Urea Nitrogen (test code = 3094-0) 11 7-26 [facility] HospitalCreatinine2018-08-13 06:13:00* Test Item Value Reference Range Interpretation Comments Creatinine (test code = 2160-0) 0.73 0.57-1.11 [facility] HospitalBUN/Creatinine Mybby4349-71-81 06:13:00* Test Item Value Reference Range Interpretation Comments BUN/Creatinine Ratio (test code = 3097-3) 15 6-25 [facility] HospitalEstimat Glomerular Filtration Rate 2017-09-21 06:13:00* Test Item Value Reference Range Interpretation Comments Estimat Glomerular Filtration Rate (test code = 07923-3) 60- >60 Ranges were taken from the National Kidney Disease Education Program and the [facility] literature.Reference ranges:60 or greater: Fgsndc14-78 ( for 3 consecutive months): Chronic kidney disease 15 or less: Kidney failureMethodist McKinney HospitalGlucose Dbfef0651-01-44 06:13:00* Test Item Value Reference Range Interpretation Comments Glucose Level (test code = [id number]) 118 74-118 [facility] HospitalCalcium Rbfkh1121-92-08 06:13:00* Test Item Value Reference Range Interpretation Comments Calcium Level (test code = 12638-6) 8.7 8.4-10.2 [facility] Rgxpv3378-84-75 06:13:00* Test Item Value Reference Range Interpretation Comments Sodium Level (test code = 2951-2) 141 136-145 [facility] HospitalPotassium Jderk4790-45-75 06:13:00* Test Item Value Reference Range Interpretation Comments Potassium Level (test code = 2823-3) 3.7 3.5-5.1 [facility] HospitalChloride Iceqp8200-20-73 06:13:00* Test Item Value Reference Range Interpretation Comments Chloride Level (test code = 2075-0) 107 98-107 [facility] HospitalCarbon Dioxide Yknsd8308-23-87 06:13:00* Test Item Value Reference Range Interpretation Comments Carbon Dioxide Level (test code = 2028-9) 23 22-29 [facility] HospitalAnion Bwd1874-79-34 06:13:00* Test Item Value Reference Range Interpretation Comments Anion Gap (test code = 95891-5) 14.7 8-16 [facility] HospitalBlood Urea Toacykft9690-16-98 06:13:00* Test Item Value Reference Range Interpretation Comments Blood Urea Nitrogen (test code = 3094-0) 11 -26 [facility] HospitalCreatinine2018-08-13 06:13:00* Test Item Value Reference Range Interpretation Comments Creatinine (test code = 2160-0) 0.73 0.57-1.11 [facility] HospitalBUN/Creatinine Awxtw4761-90-14 06:13:00* Test Item Value Reference Range Interpretation Comments BUN/Creatinine Ratio (test code = 3097-3) 15 08-03 [facility] HospitalEstimat Glomerular Filtration Rate 2017-09-21 06:13:00* Test Item Value Reference Range Interpretation Comments Estimat Glomerular Filtration Rate (test code = 690014376) 60- >60 Ranges were taken from the National Kidney Disease Education Program and the [facility] literature.Reference ranges:60 or greater: Ixcbjy84-89 ( for 3 consecutive months): Chronic kidney disease 15 or less: Kidney failureMethodist McKinney HospitalGlucose Dbqjn2044-71-21 06:13:00* Test Item Value Reference Range Interpretation Comments Glucose Level (test code = OCC1986) 118 74-118 [facility] HospitalCalcium Rcxqt1911-10-41 06:13:00* Test Item Value Reference Range Interpretation Comments Calcium Level (test code = 95274-9) 8.7 8.4-10.2 [facility] HospitalABDOMEN-[facility]VIEW (KUB)2017-09-18 07:34:00 [facility] [address] [place] [address] Patient Name: WESLY HUTCHINSON MR #: [id number] : Age/Sex: 56/F Req #: [id number] Adm Physician: VIKY REAGAN MD Ordered by: JARET ESPINOSA MD Report #: [id number] Location: [facility] Room/Bed: [place] [address] Procedure: [id number] DX/ABD OMEN-1VIEW (KUB) Exam Date: 09/18/17 Exam Time: 0710 REPORT STATUS: Signed PROCEDURE: X-RAY ABDOMEN - [...] 09/18/17733 COPY TO: JARET PATEL MD Urine Qbmdl2060-72-22 23:08:00* Test Item Value Reference Range Interpretation Comments Urine Color (test code = 5778-6) YELLOW YELLOW [facility] HospitalU[facility] Onvykjy8396-76-82 23:08:00* Test Item Value Reference Range Interpretation Comments Urine Clarity (test code = 82793-7) CLOUDY CLEAR H [facility] HospitalUrine Specific Nbreqlh6893-30-32 23:08:00 * Test Item Value Reference Range Interpretation Comments Urine Specific Malabar (test code = 5811-5) 1.020 1.010-1.02 5 [facility] HospitalUrine kL7684-22-38 23:08:00* Test Item Value Reference Range Interpretation Comments Urine pH (test code = 74051-9) 6 5-7 [facility] HospitalU[facility] Leukocyte Nyihvuiv5983-59-06 23:08:00* Test Item Value Reference Range Interpretation Comments Urine Leukocyte Esterase (test code = 5799-2) 1+ NEGATIVE H [facility] HospitalUrine Vxsizwx3637-08-40 23:08:00* Test Item Value Reference Range Interpretation Comments Urine Nitrite (test code = 94107-5) POSITIVE NEGATIVE H [facility] HospitalUrine Pfgucbb8661-35-77 23:08:00* Test Item Value Reference Range Interpretation Comments Urine Protein (test code = 5804-0) 2+ NEGATIVE H [facility] HospitalUrine Glucose (UA)2017-09-17 23:08:00* Test Item Value Reference Range Interpretation Comments Urine Glucose (UA) (test code = 2349-9) 1+ NEGATIVE H [facility] HospitalUrine Fzugrco5309-54-75 23:08:00* Test Item Value Reference Range Interpretation Comments Urine Ketones (test code = 73098-9) NEGATIVE NEGATIVE [facility] HospitalUrine Lpfyzngrwqxs2360-11-49 23:08:00* Test Item Value Reference Range Interpretation Comments Urine Urobilinogen (test code = 23008-2) 0.2 0.2-1 [facility] Hospital[facility] Qyqpgaxwk1500-46-81 23:08:00* Test Item Value Reference Range Interpretation Comments Urine Bilirubin (test code = 1978-6) NEGATIVE NEGATIVE [facility] HospitalU[facility] Gzvto5560-35-03 23:08:00* Test Item Value Reference Range Interpretation Comments Urine Blood (test code = 81390-1) 3+ NEGATIVE H [facility] HospitalU[facility] BUZ7658-39-23 23:08:00* Test Item Value Reference Range Interpretation Comments Urine WBC (test code = 5821-4) 50- 0-5 H [facility] HospitalU[facility] RJL3388-85-65 23:08:00* Test Item Value Reference Range Interpretation Comments Urine RBC (test code = 55581-1) 0-5 0-5 [facility] Bglctpzv6963-41-51 23:08:00* Test Item Value Reference Range Interpretation Comments Urine Bacteria (test code = 07941-1) MODERATE NONE [facility] Epithelial Frjeo7438-31-55 23:08:00 * Test Item Value Reference Range Interpretation Comments Urine Epithelial Cells (test code = 46838-4) RARE NONE [facility] HospitalU[facility] Wfpcp3908-10-08 23:08:00* Test Item Value Reference Range Interpretation Comments Urine Color (test code = 5778-6) YELLOW YELLOW [facility] HospitalU[facility] Xcvfyht2344-88-47 23:08:00* Test Item Value Reference Range Interpretation Comments Urine Clarity (test code = 55957-6) CLOUDY CLEAR [facility] Fbsrper0504-19-19 23:08:00 * Test Item Value Reference Range Interpretation Comments Urine Specific Malabar (test code = 5811-5) 1.020 1.010-1.02 5 [facility] HospitalU[facility] oL7658-32-97 23:08:00* Test Item Value Reference Range Interpretation Comments Urine pH (test code = 52431-2) 6 5-7 [facility] Leukocyte Unjqasaj9568-48-96 23:08:00* Test Item Value Reference Range Interpretation Comments Urine Leukocyte Esterase (test code = 5799-2) 1+ NEGATIVE [facility] Hgsqiea3300-24-56 23:08:00* Test Item Value Reference Range Interpretation Comments Urine Nitrite (test code = 58086-9) POSITIVE NEGATIVE [facility] Kwsrhmb1478-26-71 23:08:00* Test Item Value Reference Range Interpretation Comments Urine Protein (test code = 5804-0) 2+ NEGATIVE [facility] Glucose (UA)2017-09-17 23:08:00* Test Item Value Reference Range Interpretation Comments Urine Glucose (UA) (test code = 2349-9) 1+ NEGATIVE [facility] Mpeenbi6583-67-20 23:08:00* Test Item Value Reference Range Interpretation Comments Urine Ketones (test code = 67048-5) NEGATIVE NEGATIVE [facility] Bueqtbbnxhay7578-96-37 23:08:00* Test Item Value Reference Range Interpretation Comments Urine Urobilinogen (test code = 50817-4) 0.2 0.2-1 [facility] Asfpfpzfv6460-08-08 23:08:00* Test Item Value Reference Range Interpretation Comments Urine Bilirubin (test code = 1978-6) NEGATIVE NEGATIVE [facility] Cfdsl8373-33-43 23:08:00* Test Item Value Reference Range Interpretation Comments Urine Blood (test code = 04128-8) 3+ NEGATIVE H [facility] RBQ3006-46-22 23:08:00* Test Item Value Reference Range Interpretation Comments Urine WBC (test code = 5821-4) 50- 0-5 H [facility] HospitalU[facility] QKZ8019-35-77 23:08:00* Test Item Value Reference Range Interpretation Comments Urine RBC (test code = 48969-9) 0-5 0-5 [facility] Qmwfndoy6352-07-78 23:08:00* Test Item Value Reference Range Interpretation Comments Urine Bacteria (test code = 18304-0) MODERATE NONE H [facility] HospitalU[facility] Epithelial Vfvvc2687-99-76 23:08:00 * Test Item Value Reference Range Interpretation Comments Urine Epithelial Cells (test code = 40105-5) RARE NONE [facility] HospitalCT [facility]PELVIS GM7904-13-18 19:09:00 [facility] [address] [place] [address] Patient Name: WESLY HUTCHINSON MR #: [id number] : Age/Sex: 56/F Req #: [id number] Adm Physician: Ordered by: ANNETTE BREWER TUBE WASHER Report #: [id number] Location: Room/Be d: Procedure: [id number] CT/CT ABDOMEN/PELVIS WO Exam Date: 09/17/17 Exam [...] TO: ANNETTE BREWER NP Human Chorionic Gonadotropin, Pcde7522-89-85 18:41:00* Test Item Value Reference Range Interpretation Comments Human Chorionic Gonadotropin, Qual (test code = 2118-8) NEGATIVE NEGATIVE [facility] Chorionic Gonadotropin, On License Of [facility] 2017-09-17 18:41:00* Test Item Value Reference Range Interpretation Comments Human Chorionic Gonadotropin, Qual (test code = 2118-8) NEGATIVE NEGATIVE [facility] Chorionic Gonadotropin, On License Of [facility] 2017-09-17 18:41:00* Test Item Value Reference Range Interpretation Comments Human Chorionic Gonadotropin, Qual (test code = 2118-8) NEGATIVE NEGATIVE [facility] Chorionic Gonadotropin, On License Of [facility] 2017-09-17 18:41:00* Test Item Value Reference Range Interpretation Comments Human Chorionic Gonadotropin, Qual (test code = 2118-8) NEGATIVE NEGATIVE [facility] Chorionic Gonadotropin, On License Of [facility] 2017-09-17 18:41:00* Test Item Value Reference Range Interpretation Comments Human Chorionic Gonadotropin, Qual (test code = 2118-8) NEGATIVE NEGATIVE [facility] Chorionic Gonadotropin, On License Of [facility] 2017-09-17 18:41:00* Test Item Value Reference Range Interpretation Comments Human Chorionic Gonadotropin, Qual (test code = 2118-8) NEGATIVE NEGATIVE [facility] Ocxex0830-00-17 16:31:00* Test Item Value Reference Range Interpretation Comments Urine Mucus (test code = 8247-9) FEW RARE H [facility] Lnjqa4788-99-56 16:31:00* Test Item Value Reference Range Interpretation Comments Urine Mucus (test code = 8247-9) [facility] Lkcyz6849-71-28 16:31:00* Test Item Value Reference Range Interpretation Comments Urine Mucus (test code = 8247-9) [facility]2018-08-09 16:31:00* Test Item Value Reference Range Interpretation Comments Urine Mucus (test code = 8247-9) [facility]2018-08-09 16:31:00* Test Item Value Reference Range Interpretation Comments Urine Mucus (test code = 8247-9) [facility]2018-08-09 16:31:00* Test Item Value Reference Range Interpretation Comments Urine Mucus (test code = 8247-9) [facility]2018-08-09 16:31:00* Test Item Value Reference Range Interpretation Comments Urine Mucus (test code = 8247-9) [facility] Psvjg5178-89-24 16:31:00* Test Item Value Reference Range Interpretation Comments Urine Mucus (test code = 8247-9) [facility] Cndbz7362-33-50 16:31:00* Test Item Value Reference Range Interpretation Comments Urine Mucus (test code = 8247-9) [facility] Lzwhmhp4996-02-38 08:01:00* Test Item Value Reference Range Interpretation Comments Urine Culture (test code = 630-4) Organism: ESCHERICHIA COLI [facility] Vocvent6315-57-83 08:01:00* Test Item Value Reference Range Interpretation Comments Urine Culture (test code = 630-4) Organism: ESCHERICHIA COLI [facility] IPF8620-07-51 16:50:00* Test Item Value Reference Range Interpretation Comments Urine WBC (test code = 5821-4) 50- 0-5 [facility] TUC0354-80-06 16:50:00* Test Item Value Reference Range Interpretation Comments Urine RBC (test code = 22846-2) 11-20 0-5 H [facility] Wmqisikj3969-06-34 16:50:00* Test Item Value Reference Range Interpretation Comments Urine Bacteria (test code = 24718-9) MODERATE NONE H [facility] Epithelial Ypkqk5173-84-69 16:50:00 * Test Item Value Reference Range Interpretation Comments Urine Epithelial Cells (test code = 95254-9) NONE NONE [facility] White Blood Cell Sccoo5874-37-19 16:50:00* Test Item Value Reference Range Interpretation Comments Urine White Blood Cell Casts (test code = 63251-2) 1-5 >0 H [facility] White Blood Cell Oguoy5132-73-58 16:50:00* Test Item Value Reference Range Interpretation Comments Urine White Blood Cell Casts (test code = 34430-4) 1-5 >0 H [facility] White Blood Cell Ljqna3124-26-21 16:50:00* Test Item Value Reference Range Interpretation Comments Urine White Blood Cell Casts (test code = 41814-5) 1-5 >0 H [facility] White Blood Cell Wrfgo5745-25-66 16:50:00* Test Item Value Reference Range Interpretation Comments Urine White Blood Cell Casts (test code = 55551-3) 1-5 >0 H [facility] White Blood Cell Nvmlg1557-58-74 16:50:00* Test Item Value Reference Range Interpretation Comments Urine White Blood Cell Casts (test code = 87469-1) 1-5 >0 H [facility] White Blood Cell Lnatg7181-47-60 16:50:00* Test Item Value Reference Range Interpretation Comments Urine White Blood Cell Casts (test code = 79724-2) 1-5 >0 H [facility] White Blood Cell Javrs3027-19-02 16:50:00* Test Item Value Reference Range Interpretation Comments Urine White Blood Cell Casts (test code = 97229-5) 1-5 >0 H [facility] White Blood Cell Yxpeh8078-26-63 16:50:00* Test Item Value Reference Range Interpretation Comments Urine White Blood Cell Casts (test code = 03124-6) 1-5 >0 H [facility] White Blood Cell Lnbjx5889-29-88 16:50:00* Test Item Value Reference Range Interpretation Comments Urine White Blood Cell Casts (test code = 41636-2) 1-5 >0 H [facility] Ihmsn7563-10-86 16:38:00* Test Item Value Reference Range Interpretation Comments Urine Color (test code = 5778-6) YELLOW YELLOW [facility] Yawilda8769-55-34 16:38:00* Test Item Value Reference Range Interpretation Comments Urine Clarity (test code = 14877-9) TURBID CLEAR H [facility] HospitalU[facility] Specific Wingusv5306-98-66 16:38:00 * Test Item Value Reference Range Interpretation Comments Urine Specific Malabar (test code = 5811-5) 1.030 1.010-1.02 5 H [facility] rY6421-24-42 16:38:00* Test Item Value Reference Range Interpretation Comments Urine pH (test code = 16824-4) 6 5-7 [facility] Leukocyte Pfnxhohq6308-76-88 16:38:00* Test Item Value Reference Range Interpretation Comments Urine Leukocyte Esterase (test code = 5799-2) 2+ NEGATIVE H [facility] Guvlsbq2025-19-30 16:38:00* Test Item Value Reference Range Interpretation Comments Urine Nitrite (test code = 19361-6) POSITIVE NEGATIVE H [facility] Anhbook5369-73-05 16:38:00* Test Item Value Reference Range Interpretation Comments Urine Protein (test code = 5804-0) 3+ NEGATIVE H [facility] Glucose (UA)2017-08-10 16:38:00* Test Item Value Reference Range Interpretation Comments Urine Glucose (UA) (test code = 2349-9) NEGATIVE NEGATIVE [facility] Dzzpyjt9069-81-73 16:38:00* Test Item Value Reference Range Interpretation Comments Urine Ketones (test code = 97172-9) NEGATIVE NEGATIVE [facility] Zmgoavekdlhr8000-90-68 16:38:00* Test Item Value Reference Range Interpretation Comments Urine Urobilinogen (test code = 33952-6) 0.2 0.2-1 [facility] Xwpjsliot9264-66-56 16:38:00* Test Item Value Reference Range Interpretation Comments Urine Bilirubin (test code = 1978-6) NEGATIVE NEGATIVE [facility] Dkayg6156-98-00 16:38:00* Test Item Value Reference Range Interpretation Comments Urine Blood (test code = 35016-2) 3+ NEGATIVE H [facility] Txjyg2586-04-29 14:37:00* Test Item Value Reference Range Interpretation Comments Sodium Level (test code = 2951-2) 139 136-145 [facility]Potassium Duvjh7387-96-35 14:37:00* Test Item Value Reference Range Interpretation Comments Potassium Level (test code = 2823-3) 3.9 3.5-5.1 [facility] HospitalChloride Oekou0292-73-71 14:37:00* Test Item Value Reference Range Interpretation Comments Chloride Level (test code = 2075-0) 105 98-107 [facility] HospitalCarbon Dioxide Ahuik2627-84-88 14:37:00* Test Item Value Reference Range Interpretation Comments Carbon Dioxide Level (test code = 2028-9) 23 22-29 [facility] HospitalAnion Psi4702-18-01 14:37:00* Test Item Value Reference Range Interpretation Comments Anion Gap (test code = 68575-4) 14.9 8-16 [facility] HospitalBlood Urea Ppfbbpbc5778-80-42 14:37:00* Test Item Value Reference Range Interpretation Comments Blood Urea Nitrogen (test code = 3094-0) 13 7-26 [facility] HospitalCreatinine2018-07-02 14:37:00* Test Item Value Reference Range Interpretation Comments Creatinine (test code = 2160-0) 0.85 0.57-1.11 [facility] HospitalBUN/Creatinine Ynfvx8078-00-20 14:37:00* Test Item Value Reference Range Interpretation Comments BUN/Creatinine Ratio (test code = 3097-3) 15 6-25 [facility] HospitalEstimat Glomerular Filtration Rate 2017-08-10 14:37:00* Test Item Value Reference Range Interpretation Comments Estimat Glomerular Filtration Rate (test code = 35038-2) 60- >60 Ranges were taken from the National Kidney Disease Education Program and the [facility] literature.Reference ranges:60 or greater: Hrwxtf41-03 ( for 3 consecutive months): Chronic kidney disease 15 or less: Kidney failureCHI [facility] CampusGlucose Vzvcd3513-17-45 14:37:00* Test Item Value Reference Range Interpretation Comments Glucose Level (test code = QCR3960) 191 74-118 H [facility] HospitalCalcium Xdkqx9005-34-33 14:37:00* Test Item Value Reference Range Interpretation Comments Calcium Level (test code = 65161-0) 9.7 8.4-10.2 [facility] HospitalTotal Gkecultcw9919-72-44 14:37:00* Test Item Value Reference Range Interpretation Comments Total Bilirubin (test code = 1975-2) 0.5 0.2-1.2 [facility] HospitalAspartate Amino Transf (AST/SGOT) 2017-08-10 14:37:00* Test Item Value Reference Range Interpretation Comments Aspartate Amino Transf (AST/SGOT) (test code = Aspartate Amino Transf (AST/SGOT)) 20 5-34 [facility] HospitalAlanine Aminotransferase (ALT/SGPT) 2017-08-10 14:37:00* Test Item Value Reference Range Interpretation Comments Alanine Aminotransferase (ALT/SGPT) (test code = 1742-6) 19 0-55 [facility] HospitalTotal Rdzjsmh7254-67-94 14:37:00* Test Item Value Reference Range Interpretation Comments Total Protein (test code = 2885-2) 8.2 6.5-8.1 H [facility] HospitalAlbumin2018-07-02 14:37:00* Test Item Value Reference Range Interpretation Comments Albumin (test code = 1751-7) 3.3 3.5-5.0 L [facility] HospitalGlobulin2018-07-02 14:37:00* Test Item Value Reference Range Interpretation Comments Globulin (test code = 04901-1) 4.9 2.3-3.5 H [facility] HospitalAlbumin/Globulin Qttec7633-74-45 14:37:00 * Test Item Value Reference Range Interpretation Comments Albumin/Globulin Ratio (test code = 1759-0) 0.7 0.8-2.0 L [facility] HospitalAlkaline Clzjiqzgzad2559-88-18 14:37:00* Test Item Value Reference Range Interpretation Comments Alkaline Phosphatase (test code = 6768-6) 88 40-150 [facility] HospitalAmylase Wvefu8467-52-27 14:37:00* Test Item Value Reference Range Interpretation Comments Amylase Level (test code = 1798-8) 51 25-125 [facility] HospitalLipase2018-07-02 14:37:00* Test Item Value Reference Range Interpretation Comments Lipase (test code = 3040-3) 27 8-78 [facility] HospitalTotal Kwmcqfdxe0008-70-77 14:37:00* Test Item Value Reference Range Interpretation Comments Total Bilirubin (test code = 1975-2) 0.5 0.2-1.2 [facility] HospitalAspartate Amino Transf (AST/SGOT) 2017-08-10 14:37:00* Test Item Value Reference Range Interpretation Comments Aspartate Amino Transf (AST/SGOT) (test code = Aspartate Amino Transf (AST/SGOT)) 20 5-34 [facility] HospitalAlanine Aminotransferase (ALT/SGPT) 2017-08-10 14:37:00* Test Item Value Reference Range Interpretation Comments Alanine Aminotransferase (ALT/SGPT) (test code = 1742-6) 19 0-55 [facility] HospitalTotal Rqpdrro8797-87-39 14:37:00* Test Item Value Reference Range Interpretation Comments Total Protein (test code = 2885-2) 8.2 6.5-8.1 H [facility] HospitalAlbumin2018-07-02 14:37:00* Test Item Value Reference Range Interpretation Comments Albumin (test code = 1751-7) 3.3 3.5-5.0 L [facility] HospitalGlobulin2018-07-02 14:37:00* Test Item Value Reference Range Interpretation Comments Globulin (test code = 58838-6) 4.9 2.3-3.5 H [facility] HospitalAlbumin/Globulin Rtrmk0301-73-89 14:37:00 * Test Item Value Reference Range Interpretation Comments Albumin/Globulin Ratio (test code = 1759-0) 0.7 0.8-2.0 L [facility] HospitalAlkaline Aadkwpnraju4025-99-36 14:37:00* Test Item Value Reference Range Interpretation Comments Alkaline Phosphatase (test code = 6768-6) 88 40-150 [facility] HospitalAmylase Hhxmu7808-81-57 14:37:00* Test Item Value Reference Range Interpretation Comments Amylase Level (test code = 1798-8) 51 25-125 [facility] HospitalLipase2018-07-02 14:37:00* Test Item Value Reference Range Interpretation Comments Lipase (test code = 3040-3) 27 8-78 [facility] HospitalTotal Xyzmefebs9126-80-33 14:37:00* Test Item Value Reference Range Interpretation Comments Total Bilirubin (test code = 1975-2) 0.5 0.2-1.2 [facility] HospitalAspartate Amino Transf (AST/SGOT) 2017-08-10 14:37:00* Test Item Value Reference Range Interpretation Comments Aspartate Amino Transf (AST/SGOT) (test code = Aspartate Amino Transf (AST/SGOT)) 20 5-34 [facility] HospitalAlanine Aminotransferase (ALT/SGPT) 2017-08-10 14:37:00* Test Item Value Reference Range Interpretation Comments Alanine Aminotransferase (ALT/SGPT) (test code = 1742-6) 19 0-55 [facility] HospitalTotal Fmvruif5288-90-63 14:37:00* Test Item Value Reference Range Interpretation Comments Total Protein (test code = 2885-2) 8.2 6.5-8.1 H [facility] HospitalAlbumin2018-07-02 14:37:00* Test Item Value Reference Range Interpretation Comments Albumin (test code = 1751-7) 3.3 3.5-5.0 L [facility] HospitalGlobulin2018-07-02 14:37:00* Test Item Value Reference Range Interpretation Comments Globulin (test code = 23413-9) 4.9 2.3-3.5 H [facility] HospitalAlbumin/Globulin Kjmhm3566-64-66 14:37:00 * Test Item Value Reference Range Interpretation Comments Albumin/Globulin Ratio (test code = 1759-0) 0.7 0.8-2.0 L [facility] HospitalAlkaline Yrejlpgobpc3830-24-25 14:37:00* Test Item Value Reference Range Interpretation Comments Alkaline Phosphatase (test code = 6768-6) 88 40-150 [facility] HospitalAmylase Jsome2324-23-43 14:37:00* Test Item Value Reference Range Interpretation Comments Amylase Level (test code = 1798-8) 51 25-125 [facility] HospitalLipase2018-07-02 14:37:00* Test Item Value Reference Range Interpretation Comments Lipase (test code = 3040-3) 27 8-78 [facility] HospitalUrine Amorphous Tafdcsuh9046-16-76 14:31:00* Test Item Value Reference Range Interpretation Comments Urine Amorphous Sediment (test code = 8246-1) MODERATE FEW [facility] Uddifnxz3370-66-14 14:31:00* Test Item Value Reference Range Interpretation Comments Urine Amorphous Sediment (test code = 8246-1) MODERATE FEW [facility]orphous Fnknjmdt5048-32-07 14:31:00* Test Item Value Reference Range Interpretation Comments Urine Amorphous Sediment (test code = 8246-1) MODERATE FEW H [facility]orphous Pdallovl0049-95-54 14:31:00* Test Item Value Reference Range Interpretation Comments Urine Amorphous Sediment (test code = 8246-1) MODERATE FEW H [facility]orphous Laeifsni7292-68-40 14:31:00* Test Item Value Reference Range Interpretation Comments Urine Amorphous Sediment (test code = 8246-1) MODERATE FEW H [facility]orphous Yjyozggn8959-78-85 14:31:00* Test Item Value Reference Range Interpretation Comments Urine Amorphous Sediment (test code = 8246-1) MODERATE FEW H [facility] Amorphous Fiuutmhl0463-03-24 14:31:00* Test Item Value Reference Range Interpretation Comments Urine Amorphous Sediment (test code = 8246-1) MODERATE FEW H [facility]orphous Gskbwhpl1952-09-97 14:31:00* Test Item Value Reference Range Interpretation Comments Urine Amorphous Sediment (test code = 8246-1) MODERATE FEW H [facility] Amorphous Fltxjryv7184-70-46 14:31:00* Test Item Value Reference Range Interpretation Comments Urine Amorphous Sediment (test code = 8246-1) MODERATE FEW [facility] HospitalWhite Blood Ndcud2432-60-32 14:17:00* Test Item Value Reference Range Interpretation Comments White Blood Count (test code = 6690-2) 7.92 4.8-10.8 [facility] Blood Fzasq3414-16-94 14:17:00* Test Item Value Reference Range Interpretation Comments Red Blood Count (test code = 789-8) 4.05 3.6-5.1 [facility]Hemoglobin2018-07-02 14:17:00* Test Item Value Reference Range Interpretation Comments Hemoglobin (test code = 60256-3) 10.4 12.0-16.0 L [facility] HospitalHematocrit2018-07-02 14:17:00* Test Item Value Reference Range Interpretation Comments Hematocrit (test code = 4544-3) 33.0 34.2-44.1 L [facility] HospitalMean Corpuscular Cmxojz5845-42-51 14:17:00* Test Item Value Reference Range Interpretation Comments Mean Corpuscular Volume (test code = 787-2) 81.5 81-99 [facility]Mean Corpuscular Uipeivjucv5655-46-46 14:17:00* Test Item Value Reference Range Interpretation Comments Mean Corpuscular Hemoglobin (test code = 785-6) 25.7 28-32 L [facility] HospitalMean Corpuscular Hemoglobin Concent 2017-08-10 14:17:00* Test Item Value Reference Range Interpretation Comments Mean Corpuscular Hemoglobin Concent (test code = 786-4) 31.5 31-35 [facility] HospitalRed Cell Distribution Ispkx4159-10-62 14:17:00* Test Item Value Reference Range Interpretation Comments Red Cell Distribution Width (test code = 67477-6) 15.7 11.7 -14.4 H [facility] HospitalPlatelet Apmfs1510-00-96 14:17:00* Test Item Value Reference Range Interpretation Comments Platelet Count (test code = 777-3) 334 140-360 [facility] HospitalNeutrophils (%) (Auto)2017-08-10 14:17:00 * Test Item Value Reference Range Interpretation Comments Neutrophils (%) (Auto) (test code = 43336-7) 65.1 38.7-80.0 [facility] HospitalLymphocytes (%) (Auto)2017-08-10 14:17:00 * Test Item Value Reference Range Interpretation Comments Lymphocytes (%) (Auto) (test code = 736-9) 27.3 18.0-39.1 [facility] HospitalMonocytes (%) (Auto)2017-08-10 14:17:00* Test Item Value Reference Range Interpretation Comments Monocytes (%) (Auto) (test code = 5905-5) 4.9 4.4-11.3 [facility] HospitalEosinophils (%) (Auto)2017-08-10 14:17:00 * Test Item Value Reference Range Interpretation Comments Eosinophils (%) (Auto) (test code = 713-8) 1.8 0.0-6.0 [facility] HospitalBasophils (%) (Auto)2017-08-10 14:17:00* Test Item Value Reference Range Interpretation Comments Basophils (%) (Auto) (test code = 706-2) 0.6 0.0-1.0 [facility] HospitalIM GRANULOCYTES %2017-08-10 14:17:00* Test Item Value Reference Range Interpretation Comments IM GRANULOCYTES % (test code = IM GRANULOCYTES %) 0.3 0.0- 1.0 [facility] HospitalNeutrophils # (Auto)2017-08-10 14:17:00* Test Item Value Reference Range Interpretation Comments Neutrophils # (Auto) (test code = 751-8) 5.2 2.1-6.9 [facility] HospitalLymphocytes # (Auto)2017-08-10 14:17:00* Test Item Value Reference Range Interpretation Comments Lymphocytes # (Auto) (test code = 66485-0) 2.2 1.0-3.2 [facility] HospitalMonocytes # (Auto)2017-08-10 14:17:00* Test Item Value Reference Range Interpretation Comments Monocytes # (Auto) (test code = 742-7) 0.4 0.2-0.8 [facility] HospitalEosinophils # (Auto)2017-08-10 14:17:00* Test Item Value Reference Range Interpretation Comments Eosinophils # (Auto) (test code = 711-2) 0.1 0.0-0.4 [facility] HospitalBasophils # (Auto)2017-08-10 14:17:00* Test Item Value Reference Range Interpretation Comments Basophils # (Auto) (test code = 704-7) 0.1 0.0-0.1 [facility] HospitalAbsolute Immature Granulocyte (auto 2017-08-10 14:17:00* Test Item Value Reference Range Interpretation Comments Absolute Immature Granulocyte (auto (irena t code = Absolute Immature Granulocyte (auto) 0.02 0-0.1 [facility] HospitalUrine LCT9617-85-28 15:41:00* Test Item Value Reference Range Interpretation Comments Urine WBC (test code = 5821-4) 50- 0-5 H [facility] HospitalU[facility] YZZ5529-14-03 15:41:00* Test Item Value Reference Range Interpretation Comments Urine RBC (test code = 08358-3) 11-20 0-5 H [facility] Rjiatpjp9555-13-11 15:41:00* Test Item Value Reference Range Interpretation Comments Urine Bacteria (test code = 67224-9) MANY NONE H [facility] HospitalUrine Epithelial Mzkyo9626-49-91 15:41:00 * Test Item Value Reference Range Interpretation Comments Urine Epithelial Cells (test code = 95663-0) FEW NONE [facility] BJC7504-72-51 15:41:00* Test Item Value Reference Range Interpretation Comments Urine WBC (test code = 5821-4) 50- 0-5 H [facility] HospitalU[facility] SGU9260-04-27 15:41:00* Test Item Value Reference Range Interpretation Comments Urine RBC (test code = 68618-5) 11-20 0-5 H [facility]Urine Agpyahxb4801-10-23 15:41:00* Test Item Value Reference Range Interpretation Comments Urine Bacteria (test code = 73911-7) MANY NONE H [facility] HospitalUrine Epithelial Bhqlr6092-26-21 15:41:00 * Test Item Value Reference Range Interpretation Comments Urine Epithelial Cells (test code = 54326-2) [facility] MOF2836-41-96 15:41:00* Test Item Value Reference Range Interpretation Comments Urine WBC (test code = 5821-4) 50- 0-5 H [facility] DBX9214-85-44 15:41:00* Test Item Value Reference Range Interpretation Comments Urine RBC (test code = 46667-4) 11-20 0-5 H [facility]Urine Pphunvsv0483-17-12 15:41:00* Test Item Value Reference Range Interpretation Comments Urine Bacteria (test code = 94403-1) MANY NONE H [facility] HospitalUrine Epithelial Exitg2642-07-21 15:41:00 * Test Item Value Reference Range Interpretation Comments Urine Epithelial Cells (test code = 98951-5) FEW NONE [facility] Notlr1506-27-29 15:33:00* Test Item Value Reference Range Interpretation Comments Sodium Level (test code = 2951-2) 137 136-145 [facility] HospitalPotassium Acxpo2816-09-59 15:33:00* Test Item Value Reference Range Interpretation Comments Potassium Level (test code = 2823-3) 3.3 3.5-5.1 L [facility] HospitalChloride Cbglk9050-03-14 15:33:00* Test Item Value Reference Range Interpretation Comments Chloride Level (test code = 2075-0) 99 98-107 [facility] HospitalCarbon Dioxide Pnyku8248-40-34 15:33:00* Test Item Value Reference Range Interpretation Comments Carbon Dioxide Level (test code = 2028-9) 25 22-29 [facility] HospitalAnion Orb3792-13-18 15:33:00* Test Item Value Reference Range Interpretation Comments Anion Gap (test code = 66826-8) 16.3 8-16 H [facility] HospitalBlood Urea Qjjayvwk7292-03-03 15:33:00* Test Item Value Reference Range Interpretation Comments Blood Urea Nitrogen (test code = 3094-0) 17 7-26 [facility] HospitalCreatinine2018-03-04 15:33:00* Test Item Value Reference Range Interpretation Comments Creatinine (test code = 2160-0) 0.99 0.57-1.11 [facility] HospitalBUN/Creatinine Sqmbf1600-30-23 15:33:00* Test Item Value Reference Range Interpretation Comments BUN/Creatinine Ratio (test code = 3097-3) 17 6-25 [facility] HospitalEstimat Glomerular Filtration Rate 2017-04-12 15:33:00* Test Item Value Reference Range Interpretation Comments Estimat Glomerular Filtration Rate (test code = 61759-8) 58 >60 L Ranges were taken from the National Kidney Disease Education Program and the [facility] literature.Reference ranges:60 or greater: Dxmkob46-08 ( for 3 consecutive months): Chronic kidney disease 15 or less: Kidney failureMethodist [facility]ney HospitalGlucose Nbggf9916-68-47 15:33:00* Test Item Value Reference Range Interpretation Comments Glucose Level (test code = KPV0975) 138 74-118 H [facility] HospitalCalcium Cncwz0518-20-92 15:33:00* Test Item Value Reference Range Interpretation Comments Calcium Level (test code = 74158-5) 9.3 8.4-10.2 [facility] HospitalTotal Nbdpoabii2520-77-96 15:33:00* Test Item Value Reference Range Interpretation Comments Total Bilirubin (test code = 1975-2) 0.8 0.2-1.2 [facility] HospitalAspartate Amino Transf (AST/SGOT) 2017-04-12 15:33:00* Test Item Value Reference Range Interpretation Comments Aspartate Amino Transf (AST/SGOT) (test code = Aspartate Amino Transf (AST/SGOT)) 23 5-34 [facility] HospitalAlanine Aminotransferase (ALT/SGPT) 2017-04-12 15:33:00* Test Item Value Reference Range Interpretation Comments Alanine Aminotransferase (ALT/SGPT) (test code = 1742-6) 33 0-55 [facility] HospitalTotal Swmvejd1533-42-29 15:33:00* Test Item Value Reference Range Interpretation Comments Total Protein (test code = 2885-2) 8.5 6.5-8.1 H [facility] HospitalAlbumin2018-03-04 15:33:00* Test Item Value Reference Range Interpretation Comments Albumin (test code = 1751-7) 3.3 3.5-5.0 L [facility] HospitalGlobulin2018-03-04 15:33:00* Test Item Value Reference Range Interpretation Comments Globulin (test code = 51004-2) 5.2 2.3-3.5 H [facility] HospitalAlbumin/Globulin Knzha3308-60-55 15:33:00 * Test Item Value Reference Range Interpretation Comments Albumin/Globulin Ratio (test code = 1759-0) 0.6 0.8-2.0 L [facility] HospitalAlkaline Lzrtnttexts8452-19-14 15:33:00* Test Item Value Reference Range Interpretation Comments Alkaline Phosphatase (test code = 6768-6) 92 40-150 [facility] Fupaj4284-66-25 15:33:00* Test Item Value Reference Range Interpretation Comments Sodium Level (test code = 2951-2) 137 136-145 [facility] HospitalPotassium Hisbc9006-83-23 15:33:00* Test Item Value Reference Range Interpretation Comments Potassium Level (test code = 2823-3) 3.3 3.5-5.1 L [facility] HospitalChloride Eefcf7317-06-10 15:33:00* Test Item Value Reference Range Interpretation Comments Chloride Level (test code = 2075-0) 99 98-107 [facility] HospitalCarbon Dioxide Mdqmq9448-04-85 15:33:00* Test Item Value Reference Range Interpretation Comments Carbon Dioxide Level (test code = 2028-9) 25 22-29 [facility] HospitalAnion Asg3003-44-74 15:33:00* Test Item Value Reference Range Interpretation Comments Anion Gap (test code = 60530-8) 16.3 8-16 H [facility] HospitalBlood Urea Lujuvtlk0177-22-23 15:33:00* Test Item Value Reference Range Interpretation Comments Blood Urea Nitrogen (test code = 3094-0) 17 7-26 [facility] HospitalCreatinine2018-03-04 15:33:00* Test Item Value Reference Range Interpretation Comments Creatinine (test code = 2160-0) 0.99 0.57-1.11 [facility] HospitalBUN/Creatinine Oqzlj6485-19-52 15:33:00* Test Item Value Reference Range Interpretation Comments BUN/Creatinine Ratio (test code = 3097-3) 17 6-25 [facility] HospitalEstimat Glomerular Filtration Rate 2017-04-12 15:33:00* Test Item Value Reference Range Interpretation Comments Estimat Glomerular Filtration Rate (test code = 94871-4) 58 >60 L Ranges were taken from the National Kidney Disease Education Program and the [facility] literature.Reference ranges:60 or greater: Wwbdin77-91 ( for 3 consecutive months): Chronic kidney disease 15 or less: Kidney failureMethodist [facility]ney HospitalGlucose Kqtxv7043-55-66 15:33:00* Test Item Value Reference Range Interpretation Comments Glucose Level (test code = QSB7916) 138 74-118 H [facility] HospitalCalcium Ubarr4158-98-60 15:33:00* Test Item Value Reference Range Interpretation Comments Calcium Level (test code = 95377-7) 9.3 8.4-10.2 [facility] HospitalTotal Ilrciuotq9836-32-35 15:33:00* Test Item Value Reference Range Interpretation Comments Total Bilirubin (test code = 1975-2) 0.8 0.2-1.2 [facility] HospitalAspartate Amino Transf (AST/SGOT) 2017-04-12 15:33:00* Test Item Value Reference Range Interpretation Comments Aspartate Amino Transf (AST/SGOT) (test code = Aspartate Amino Transf (AST/SGOT)) 23 5-34 [facility] HospitalAlanine Aminotransferase (ALT/SGPT) 2017-04-12 15:33:00* Test Item Value Reference Range Interpretation Comments Alanine Aminotransferase (ALT/SGPT) (test code = 1742-6) 33 0-55 [facility] HospitalTotal Tqverpd6959-07-88 15:33:00* Test Item Value Reference Range Interpretation Comments Total Protein (test code = 2885-2) 8.5 6.5-8.1 H [facility] HospitalAlbumin2018-03-04 15:33:00* Test Item Value Reference Range Interpretation Comments Albumin (test code = 1751-7) 3.3 3.5-5.0 L [facility] HospitalGlobulin2018-03-04 15:33:00* Test Item Value Reference Range Interpretation Comments Globulin (test code = 85936-8) 5.2 2.3-3.5 H [facility] HospitalAlbumin/Globulin Bbrrh7849-44-20 15:33:00 * Test Item Value Reference Range Interpretation Comments Albumin/Globulin Ratio (test code = 1759-0) 0.6 0.8-2.0 L [facility] HospitalAlkaline Ygplsouadfa4979-05-38 15:33:00* Test Item Value Reference Range Interpretation Comments Alkaline Phosphatase (test code = 6768-6) 92 40-150 [facility] Fauic5606-60-84 15:33:00* Test Item Value Reference Range Interpretation Comments Sodium Level (test code = 2951-2) 137 136-145 [facility] HospitalPotassium Rephe4419-83-15 15:33:00* Test Item Value Reference Range Interpretation Comments Potassium Level (test code = 2823-3) 3.3 3.5-5.1 L [facility] HospitalChloride Bxuur6973-80-33 15:33:00* Test Item Value Reference Range Interpretation Comments Chloride Level (test code = 2075-0) 99 98-107 [facility] HospitalCarbon Dioxide Khyzr8526-11-18 15:33:00* Test Item Value Reference Range Interpretation Comments Carbon Dioxide Level (test code = 2028-9) 25 22-29 [facility] HospitalAnion Wsh7234-89-09 15:33:00* Test Item Value Reference Range Interpretation Comments Anion Gap (test code = 27380-3) 16.3 8-16 H [facility] HospitalBlood Urea Ugscnzut4821-32-38 15:33:00* Test Item Value Reference Range Interpretation Comments Blood Urea Nitrogen (test code = 3094-0) 17 7-26 [facility] HospitalCreatinine2018-03-04 15:33:00* Test Item Value Reference Range Interpretation Comments Creatinine (test code = 2160-0) 0.99 0.57-1.11 [facility] HospitalBUN/Creatinine Czffr0303-55-01 15:33:00* Test Item Value Reference Range Interpretation Comments BUN/Creatinine Ratio (test code = 3097-3) 17 6-25 [facility] HospitalEstimat Glomerular Filtration Rate 2017-04-12 15:33:00* Test Item Value Reference Range Interpretation Comments Estimat Glomerular Filtration Rate (test code = 90753-3) 58 >60 L Ranges were taken from the National Kidney Disease Education Program and the [facility] literature.Reference ranges:60 or greater: Auitly54-64 ( for 3 consecutive months): Chronic kidney disease 15 or less: Kidney failureMethodist [facility]ney HospitalGlucose Iwpzl6729-04-38 15:33:00* Test Item Value Reference Range Interpretation Comments Glucose Level (test code = MDP6265) 138 74-118 H [facility] HospitalCalcium Gvxav8892-42-45 15:33:00* Test Item Value Reference Range Interpretation Comments Calcium Level (test code = 84037-7) 9.3 8.4-10.2 [facility] HospitalTotal Tigdahdgf5911-02-93 15:33:00* Test Item Value Reference Range Interpretation Comments Total Bilirubin (test code = 1975-2) 0.8 0.2-1.2 [facility] HospitalAspartate Amino Transf (AST/SGOT) 2017-04-12 15:33:00* Test Item Value Reference Range Interpretation Comments Aspartate Amino Transf (AST/SGOT) (test code = Aspartate Amino Transf (AST/SGOT)) 23 5-34 [facility] HospitalAlanine Aminotransferase (ALT/SGPT) 2017-04-12 15:33:00* Test Item Value Reference Range Interpretation Comments Alanine Aminotransferase (ALT/SGPT) (test code = 1742-6) 33 0-55 [facility] HospitalTotal Sqvbwcj1559-88-50 15:33:00* Test Item Value Reference Range Interpretation Comments Total Protein (test code = 2885-2) 8.5 6.5-8.1 H [facility] HospitalAlbumin2018-03-04 15:33:00* Test Item Value Reference Range Interpretation Comments Albumin (test code = 1751-7) 3.3 3.5-5.0 L [facility] HospitalGlobulin2018-03-04 15:33:00* Test Item Value Reference Range Interpretation Comments Globulin (test code = 70513-6) 5.2 2.3-3.5 H [facility] HospitalAlbumin/Globulin Tpigv4572-64-85 15:33:00 * Test Item Value Reference Range Interpretation Comments Albumin/Globulin Ratio (test code = 1759-0) 0.6 0.8-2.0 L [facility] HospitalAlkaline Ncsmpmmofqf0058-41-05 15:33:00* Test Item Value Reference Range Interpretation Comments Alkaline Phosphatase (test code = 6768-6) 92 40-150 [facility] HospitalUrine Yeyd0620-82-40 15:23:00* Test Item Value Reference Range Interpretation Comments Urine Test (test code = 2106-3) NEGATIVE NEGATIVE [facility] HospitalU[facility] Vwzd1576-80-94 15:23:00* Test Item Value Reference Range Interpretation Comments Urine Test (test code = 2106-3) NEGATIVE NEGATIVE [facility] HospitalU[facility] Meke8719-50-95 15:23:00* Test Item Value Reference Range Interpretation Comments Urine Test (test code = 2106-3) NEGATIVE NEGATIVE [facility] HospitalU[facility] Pari5929-56-80 15:23:00* Test Item Value Reference Range Interpretation Comments Urine Test (test code = 2106-3) NEGATIVE NEGATIVE [facility] Cfwf8466-08-21 15:23:00* Test Item Value Reference Range Interpretation Comments Urine Test (test code = 2106-3) NEGATIVE NEGATIVE [facility] HospitalU[facility] Ibyb9029-71-34 15:23:00* Test Item Value Reference Range Interpretation Comments Urine Test (test code = 2106-3) NEGATIVE NEGATIVE [facility] Gqlc0075-81-22 15:23:00* Test Item Value Reference Range Interpretation Comments Urine Test (test code = 2106-3) NEGATIVE NEGATIVE [facility] HospitalU[facility] Hzkuq7897-44-39 15:21:00* Test Item Value Reference Range Interpretation Comments Urine Color (test code = 5778-6) YELLOW YELLOW [facility] HospitalU[facility] Yrrhylz5543-62-97 15:21:00* Test Item Value Reference Range Interpretation Comments Urine Clarity (test code = 98484-3) CLOUDY CLEAR H [facility] HospitalUrine Specific Ckqmqxn2136-19-38 15:21:00 * Test Item Value Reference Range Interpretation Comments Urine Specific [place] (test code = 5811-5) 1.010 1.010-1.02 5 [facility] HospitalU[facility] dA0341-62-30 15:21:00* Test Item Value Reference Range Interpretation Comments Urine pH (test code = 23890-7) 6 5-7 [facility] Leukocyte Zydjocga7347-44-12 15:21:00* Test Item Value Reference Range Interpretation Comments Urine Leukocyte Esterase (test code = 5799-2) 2+ NEGATIVE H [facility] HospitalU[facility] Ryomnjx7678-23-22 15:21:00* Test Item Value Reference Range Interpretation Comments Urine Nitrite (test code = 40340-2) NEGATIVE NEGATIVE [facility] Pxqtvus7028-99-75 15:21:00* Test Item Value Reference Range Interpretation Comments Urine Protein (test code = 5804-0) 2+ NEGATIVE H [facility] HospitalUrine Glucose (UA)2017-04-12 15:21:00* Test Item Value Reference Range Interpretation Comments Urine Glucose (UA) (test code = 2349-9) NEGATIVE NEGATIVE [facility] Iqynspe7711-43-77 15:21:00* Test Item Value Reference Range Interpretation Comments Urine Ketones (test code = 08029-9) NEGATIVE NEGATIVE [facility] Cjhntdognbbg1041-85-89 15:21:00* Test Item Value Reference Range Interpretation Comments Urine Urobilinogen (test code = 87221-3) 1 0.2-1 [facility] Xxlzoydeh8185-54-28 15:21:00* Test Item Value Reference Range Interpretation Comments Urine Bilirubin (test code = 1978-6) 1+ NEGATIVE H [facility] Toucp0864-42-89 15:21:00* Test Item Value Reference Range Interpretation Comments Urine Blood (test code = 49533-3) 4+ NEGATIVE H [facility] Eyqdi2727-97-30 15:21:00* Test Item Value Reference Range Interpretation Comments Urine Color (test code = 5778-6) YELLOW YELLOW [facility] Dnamyjg5849-46-70 15:21:00* Test Item Value Reference Range Interpretation Comments Urine Clarity (test code = 81937-9) CLOUDY CLEAR H [facility] HospitalU[facility] Specific Swgubhw4310-11-18 15:21:00 * Test Item Value Reference Range Interpretation Comments Urine Specific [place] (test code = 5811-5) 1.010 1.010-1.02 5 [facility] kW4640-19-84 15:21:00* Test Item Value Reference Range Interpretation Comments Urine pH (test code = 76410-4) 6 5-7 [facility] Leukocyte Vbflpzzp5188-18-40 15:21:00* Test Item Value Reference Range Interpretation Comments Urine Leukocyte Esterase (test code = 5799-2) 2+ NEGATIVE H [facility] Fefwnwl8500-79-49 15:21:00* Test Item Value Reference Range Interpretation Comments Urine Nitrite (test code = 71341-8) NEGATIVE NEGATIVE [facility] Wtzmdus7883-81-01 15:21:00* Test Item Value Reference Range Interpretation Comments Urine Protein (test code = 5804-0) 2+ NEGATIVE H [facility] Glucose (UA)2017-04-12 15:21:00* Test Item Value Reference Range Interpretation Comments Urine Glucose (UA) (test code = 2349-9) NEGATIVE NEGATIVE [facility] Dodnvij9910-99-88 15:21:00* Test Item Value Reference Range Interpretation Comments Urine Ketones (test code = 16865-4) NEGATIVE NEGATIVE [facility] Ecshngtiqlxe0721-70-73 15:21:00* Test Item Value Reference Range Interpretation Comments Urine Urobilinogen (test code = 73791-8) 1 0.2-1 [facility] Xaejyaiqg6042-89-03 15:21:00* Test Item Value Reference Range Interpretation Comments Urine Bilirubin (test code = 1978-6) 1+ NEGATIVE H [facility] Bahie1535-16-01 15:21:00* Test Item Value Reference Range Interpretation Comments Urine Blood (test code = 42617-6) 4+ NEGATIVE H [facility] Zvfgj4372-77-18 15:21:00* Test Item Value Reference Range Interpretation Comments Urine Color (test code = 5778-6) YELLOW YELLOW [facility] Edhevhm9924-74-27 15:21:00* Test Item Value Reference Range Interpretation Comments Urine Clarity (test code = 40874-7) CLOUDY CLEAR H [facility] Specific Iipxqhz7316-10-61 15:21:00 * Test Item Value Reference Range Interpretation Comments Urine Specific [place] (test code = 5811-5) 1.010 1.010-1.02 5 [facility] bS3066-22-81 15:21:00* Test Item Value Reference Range Interpretation Comments Urine pH (test code = 33201-0) 6 5-7 [facility] Leukocyte Sxkklllj9111-79-39 15:21:00* Test Item Value Reference Range Interpretation Comments Urine Leukocyte Esterase (test code = 5799-2) 2+ NEGATIVE H [facility] Gjtnwao2553-50-12 15:21:00* Test Item Value Reference Range Interpretation Comments Urine Nitrite (test code = 02233-6) NEGATIVE NEGATIVE [facility] Brerjdy6721-12-62 15:21:00* Test Item Value Reference Range Interpretation Comments Urine Protein (test code = 5804-0) 2+ NEGATIVE H [facility] Glucose (UA)2017-04-12 15:21:00* Test Item Value Reference Range Interpretation Comments Urine Glucose (UA) (test code = 2349-9) NEGATIVE NEGATIVE [facility] Fqzxoal9077-60-80 15:21:00* Test Item Value Reference Range Interpretation Comments Urine Ketones (test code = 41343-0) NEGATIVE NEGATIVE [facility] Omfetntxzsld0041-01-87 15:21:00* Test Item Value Reference Range Interpretation Comments Urine Urobilinogen (test code = 97689-0) 1 0.2-1 [facility] Nixnnenyb9674-31-70 15:21:00* Test Item Value Reference Range Interpretation Comments Urine Bilirubin (test code = 1978-6) 1+ NEGATIVE H [facility] Ugbmm7250-59-01 15:21:00* Test Item Value Reference Range Interpretation Comments Urine Blood (test code = 10806-8) 4+ NEGATIVE H [facility]White Blood Hhjbp8155-86-74 14:58:00* Test Item Value Reference Range Interpretation Comments White Blood Count (test code = 6690-2) 11.11 4.8-10.8 H [facility]Red Blood Juhkj0905-23-02 14:58:00* Test Item Value Reference Range Interpretation Comments Red Blood Count (test code = 789-8) 4.39 3.6-5.1 [facility]Hemoglobin2018-03-04 14:58:00* Test Item Value Reference Range Interpretation Comments Hemoglobin (test code = 03898-2) 11.2 12.0-16.0 L [facility] HospitalHematocrit2018-03-04 14:58:00* Test Item Value Reference Range Interpretation Comments Hematocrit (test code = 4544-3) 34.9 34.2-44.1 [facility] HospitalMean Corpuscular Zpliks0954-79-66 14:58:00* Test Item Value Reference Range Interpretation Comments Mean Corpuscular Volume (test code = 787-2) 79.5 81-99 L [facility]Mean Corpuscular Avvictyofw7622-27-06 14:58:00* Test Item Value Reference Range Interpretation Comments Mean Corpuscular Hemoglobin (test code = 785-6) 25.5 28-32 L [facility]Mean Corpuscular Hemoglobin Concent 2017-04-12 14:58:00* Test Item Value Reference Range Interpretation Comments Mean Corpuscular Hemoglobin Concent (test code = 786-4) 32.1 31-35 [facility]Red Cell Distribution Dizyd8692-61-77 14:58:00* Test Item Value Reference Range Interpretation Comments Red Cell Distribution Width (test code = 84922-6) 15.2 11.7 -14.4 H [facility] HospitalPlatelet Xawbp7157-05-54 14:58:00* Test Item Value Reference Range Interpretation Comments Platelet Count (test code = 777-3) 249 140-360 [facility] HospitalNeutrophils (%) (Auto)2017-04-12 14:58:00 * Test Item Value Reference Range Interpretation Comments Neutrophils (%) (Auto) (test code = 34473-8) 73.3 38.7-80.0 [facility] HospitalLymphocytes (%) (Auto)2017-04-12 14:58:00 * Test Item Value Reference Range Interpretation Comments Lymphocytes (%) (Auto) (test code = 736-9) 16.7 18.0-39.1 L [facility] HospitalMonocytes (%) (Auto)2017-04-12 14:58:00* Test Item Value Reference Range Interpretation Comments Monocytes (%) (Auto) (test code = 5905-5) 8.8 4.4-11.3 [facility]Eosinophils (%) (Auto)2017-04-12 14:58:00 * Test Item Value Reference Range Interpretation Comments Eosinophils (%) (Auto) (test code = 713-8) 0.5 0.0-6.0 [facility] HospitalBasophils (%) (Auto)2017-04-12 14:58:00* Test Item Value Reference Range Interpretation Comments Basophils (%) (Auto) (test code = 706-2) 0.3 0.0-1.0 [facility] HospitalIM GRANULOCYTES %2017-04-12 14:58:00* Test Item Value Reference Range Interpretation Comments IM GRANULOCYTES % (test code = IM GRANULOCYTES %) 0.4 0.0- 1.0 [facility] HospitalNeutrophils # (Auto)2017-04-12 14:58:00* Test Item Value Reference Range Interpretation Comments Neutrophils # (Auto) (test code = 751-8) 8.2 2.1-6.9 H [facility] HospitalLymphocytes # (Auto)2017-04-12 14:58:00* Test Item Value Reference Range Interpretation Comments Lymphocytes # (Auto) (test code = 82161-8) 1.9 1.0-3.2 [facility]Monocytes # (Auto)2017-04-12 14:58:00* Test Item Value Reference Range Interpretation Comments Monocytes # (Auto) (test code = 742-7) 1.0 0.2-0.8 H [facility] HospitalEosinophils # (Auto)2017-04-12 14:58:00* Test Item Value Reference Range Interpretation Comments Eosinophils # (Auto) (test code = 711-2) 0.1 0.0-0.4 [facility]Basophils # (Auto)2017-04-12 14:58:00* Test Item Value Reference Range Interpretation Comments Basophils # (Auto) (test code = 704-7) 0.0 0.0-0.1 [facility] HospitalAbsolute Immature Granulocyte (auto 2017-04-12 14:58:00* Test Item Value Reference Range Interpretation Comments Absolute Immature Granulocyte (auto (irena t code = Absolute Immature Granulocyte (auto) 0.04 0-0.1 [facility] HospitalWhite Blood Jwyly1293-00-28 14:58:00* Test Item Value Reference Range Interpretation Comments White Blood Count (test code = 6690-2) 11.11 4.8-10.8 H [facility] HospitalRed Blood Hicod7654-80-12 14:58:00* Test Item Value Reference Range Interpretation Comments Red Blood Count (test code = 789-8) 4.39 3.6-5.1 [facility] HospitalHemoglobin2018-03-04 14:58:00* Test Item Value Reference Range Interpretation Comments Hemoglobin (test code = 55109-6) 11.2 12.0-16.0 L [facility] HospitalHematocrit2018-03-04 14:58:00* Test Item Value Reference Range Interpretation Comments Hematocrit (test code = 4544-3) 34.9 34.2-44.1 [facility] HospitalMean Corpuscular Fbqrhe4303-56-09 14:58:00* Test Item Value Reference Range Interpretation Comments Mean Corpuscular Volume (test code = 787-2) 79.5 81-99 L [facility]Mean Corpuscular Hbkffaolcc3474-38-02 14:58:00* Test Item Value Reference Range Interpretation Comments Mean Corpuscular Hemoglobin (test code = 785-6) 25.5 28-32 L [facility] HospitalMean Corpuscular Hemoglobin Concent 2017-04-12 14:58:00* Test Item Value Reference Range Interpretation Comments Mean Corpuscular Hemoglobin Concent (test code = 786-4) 32.1 31-35 [facility] HospitalRed Cell Distribution Brwkg0427-47-65 14:58:00* Test Item Value Reference Range Interpretation Comments Red Cell Distribution Width (test code = 40888-0) 15.2 11.7 -14.4 H [facility] HospitalPlatelet Avblk0702-60-91 14:58:00* Test Item Value Reference Range Interpretation Comments Platelet Count (test code = 777-3) 249 140-360 [facility] HospitalNeutrophils (%) (Auto)2017-04-12 14:58:00 * Test Item Value Reference Range Interpretation Comments Neutrophils (%) (Auto) (test code = 78547-4) 73.3 38.7-80.0 [facility] HospitalLymphocytes (%) (Auto)2017-04-12 14:58:00 * Test Item Value Reference Range Interpretation Comments Lymphocytes (%) (Auto) (test code = 736-9) 16.7 18.0-39.1 L [facility] HospitalMonocytes (%) (Auto)2017-04-12 14:58:00* Test Item Value Reference Range Interpretation Comments Monocytes (%) (Auto) (test code = 5905-5) 8.8 4.4-11.3 [facility] HospitalEosinophils (%) (Auto)2017-04-12 14:58:00 * Test Item Value Reference Range Interpretation Comments Eosinophils (%) (Auto) (test code = 713-8) 0.5 0.0-6.0 [facility] HospitalBasophils (%) (Auto)2017-04-12 14:58:00* Test Item Value Reference Range Interpretation Comments Basophils (%) (Auto) (test code = 706-2) 0.3 0.0-1.0 [facility] HospitalIM GRANULOCYTES %2017-04-12 14:58:00* Test Item Value Reference Range Interpretation Comments IM GRANULOCYTES % (test code = IM GRANULOCYTES %) 0.4 0.0- 1.0 [facility] HospitalNeutrophils # (Auto)2017-04-12 14:58:00* Test Item Value Reference Range Interpretation Comments Neutrophils # (Auto) (test code = 751-8) 8.2 2.1-6.9 H [facility] HospitalLymphocytes # (Auto)2017-04-12 14:58:00* Test Item Value Reference Range Interpretation Comments Lymphocytes # (Auto) (test code = 96273-7) 1.9 1.0-3.2 [facility] HospitalMonocytes # (Auto)2017-04-12 14:58:00* Test Item Value Reference Range Interpretation Comments Monocytes # (Auto) (test code = 742-7) 1.0 0.2-0.8 H [facility] HospitalEosinophils # (Auto)2017-04-12 14:58:00* Test Item Value Reference Range Interpretation Comments Eosinophils # (Auto) (test code = 711-2) 0.1 0.0-0.4 [facility] HospitalBasophils # (Auto)2017-04-12 14:58:00* Test Item Value Reference Range Interpretation Comments Basophils # (Auto) (test code = 704-7) 0.0 0.0-0.1 [facility] HospitalAbsolute Immature Granulocyte (auto 2017-04-12 14:58:00* Test Item Value Reference Range Interpretation Comments Absolute Immature Granulocyte (auto (irena t code = Absolute Immature Granulocyte (auto) 0.04 0-0.1 [facility] HospitalWhite Blood Vvxjz9511-43-19 14:58:00* Test Item Value Reference Range Interpretation Comments White Blood Count (test code = 6690-2) 11.11 4.8-10.8 H [facility] HospitalRed Blood Hjgnn7295-03-64 14:58:00* Test Item Value Reference Range Interpretation Comments Red Blood Count (test code = 789-8) 4.39 3.6-5.1 [facility] HospitalHemoglobin2018-03-04 14:58:00* Test Item Value Reference Range Interpretation Comments Hemoglobin (test code = 46338-8) 11.2 12.0-16.0 L [facility] HospitalHematocrit2018-03-04 14:58:00* Test Item Value Reference Range Interpretation Comments Hematocrit (test code = 4544-3) 34.9 34.2-44.1 [facility] HospitalMean Corpuscular Guswnd9318-95-99 14:58:00* Test Item Value Reference Range Interpretation Comments Mean Corpuscular Volume (test code = 787-2) 79.5 81-99 L [facility]Mean Corpuscular Vyhyyxyboh8322-34-51 14:58:00* Test Item Value Reference Range Interpretation Comments Mean Corpuscular Hemoglobin (test code = 785-6) 25.5 28-32 L [facility] HospitalMean Corpuscular Hemoglobin Concent 2017-04-12 14:58:00* Test Item Value Reference Range Interpretation Comments Mean Corpuscular Hemoglobin Concent (test code = 786-4) 32.1 31-35 [facility] HospitalRed Cell Distribution Anzms6383-88-09 14:58:00* Test Item Value Reference Range Interpretation Comments Red Cell Distribution Width (test code = 29696-2) 15.2 11.7 -14.4 H [facility] HospitalPlatelet Rbfpw7055-46-88 14:58:00* Test Item Value Reference Range Interpretation Comments Platelet Count (test code = 777-3) 249 140-360 [facility] HospitalNeutrophils (%) (Auto)2017-04-12 14:58:00 * Test Item Value Reference Range Interpretation Comments Neutrophils (%) (Auto) (test code = 65997-2) 73.3 38.7-80.0 [facility] HospitalLymphocytes (%) (Auto)2017-04-12 14:58:00 * Test Item Value Reference Range Interpretation Comments Lymphocytes (%) (Auto) (test code = 736-9) 16.7 18.0-39.1 L [facility] HospitalMonocytes (%) (Auto)2017-04-12 14:58:00* Test Item Value Reference Range Interpretation Comments Monocytes (%) (Auto) (test code = 5905-5) 8.8 4.4-11.3 [facility] HospitalEosinophils (%) (Auto)2017-04-12 14:58:00 * Test Item Value Reference Range Interpretation Comments Eosinophils (%) (Auto) (test code = 713-8) 0.5 0.0-6.0 [facility] HospitalBasophils (%) (Auto)2017-04-12 14:58:00* Test Item Value Reference Range Interpretation Comments Basophils (%) (Auto) (test code = 706-2) 0.3 0.0-1.0 [facility] HospitalIM GRANULOCYTES %2017-04-12 14:58:00* Test Item Value Reference Range Interpretation Comments IM GRANULOCYTES % (test code = IM GRANULOCYTES %) 0.4 0.0- 1.0 [facility] HospitalNeutrophils # (Auto)2017-04-12 14:58:00* Test Item Value Reference Range Interpretation Comments Neutrophils # (Auto) (test code = 751-8) 8.2 2.1-6.9 H [facility] HospitalLymphocytes # (Auto)2017-04-12 14:58:00* Test Item Value Reference Range Interpretation Comments Lymphocytes # (Auto) (test code = 58990-6) 1.9 1.0-3.2 [facility] HospitalMonocytes # (Auto)2017-04-12 14:58:00* Test Item Value Reference Range Interpretation Comments Monocytes # (Auto) (test code = 742-7) 1.0 0.2-0.8 H [facility] HospitalEosinophils # (Auto)2017-04-12 14:58:00* Test Item Value Reference Range Interpretation Comments Eosinophils # (Auto) (test code = 711-2) 0.1 0.0-0.4 [facility] HospitalBasophils # (Auto)2017-04-12 14:58:00* Test Item Value Reference Range Interpretation Comments Basophils # (Auto) (test code = 704-7) 0.0 0.0-0.1 [facility] HospitalAbsolute Immature Granulocyte (auto 2017-04-12 14:58:00* Test Item Value Reference Range Interpretation Comments Absolute Immature Granulocyte (auto (irena t code = Absolute Immature Granulocyte (auto) 0.04 0-0.1 [facility]2018-02-04 06:21:00* Test Item Value Reference Range Interpretation Comments Urine Culture (test code = 630-4) Organism: VALERIO ALBICANS [facility]2018-02-04 06:21:00* Test Item Value Reference Range Interpretation Comments Urine Culture (test code = 630-4) Organism: VALERIO ALBICANS [facility]2018-02-04 06:21:00* Test Item Value Reference Range Interpretation Comments Urine Culture (test code = 630-4) Organism: VALERIO ALBICANS [facility]2018-02-04 06:21:00* Test Item Value Reference Range Interpretation Comments Urine Culture (test code = 630-4) Organism: VALERIO ALBICANS [facility]2018-02-04 06:13:00* Test Item Value Reference Range Interpretation Comments Urine Culture (test code = 630-4) Organism: VALERIO ALBICANS [facility]2018-02-04 06:13:00* Test Item Value Reference Range Interpretation Comments Urine Culture (test code = 630-4) Organism: VALERIO ALBICANS [facility]2018-02-04 06:13:00* Test Item Value Reference Range Interpretation Comments Urine Culture (test code = 630-4) Organism: VALERIO ALBICANS [facility]2018-02-04 06:13:00* Test Item Value Reference Range Interpretation Comments Urine Culture (test code = 630-4) Organism: VALERIO ALBICANS [facility]2018-02-04 06:13:00* Test Item Value Reference Range Interpretation Comments Urine Culture (test code = 630-4) Organism: VALERIO ALBICANS [facility] HospitalUrine Ciwqbic2639-69-89 06:13:00* Test Item Value Reference Range Interpretation Comments Urine Culture (test code = 630-4) Organism: [facility] ALBICANS [facility] Zpaqj3208-87-00 07:24:00* Test Item Value Reference Range Interpretation Comments Sodium Level (test code = 2951-2) 142 136-145 [facility] HospitalPotassium Duffn9177-39-51 07:24:00* Test Item Value Reference Range Interpretation Comments Potassium Level (test code = 2823-3) 3.1 3.5-5.1 L [facility] HospitalChloride Txgda0656-71-69 07:24:00* Test Item Value Reference Range Interpretation Comments Chloride Level (test code = 2075-0) 108 98-107 H [facility] HospitalCarbon Dioxide Qaqdb2492-75-46 07:24:00* Test Item Value Reference Range Interpretation Comments Carbon Dioxide Level (test code = 2028-9) 27 22-29 [facility] HospitalAnion Oyk7792-41-10 07:24:00* Test Item Value Reference Range Interpretation Comments Anion Gap (test code = 64324-2) 10.1 8-16 [facility] HospitalBlood Urea Fftbncni2994-29-76 07:24:00* Test Item Value Reference Range Interpretation Comments Blood Urea Nitrogen (test code = 3094-0) 7 7-26 [facility] HospitalCreatinine2018-02-03 07:24:00* Test Item Value Reference Range Interpretation Comments Creatinine (test code = 2160-0) 0.68 0.57-1.11 [facility] HospitalBUN/Creatinine Kaezz5229-29-27 07:24:00* Test Item Value Reference Range Interpretation Comments BUN/Creatinine Ratio (test code = 3097-3) 10 6-25 [facility] HospitalEstimat Glomerular Filtration Rate 2017-03-14 07:24:00* Test Item Value Reference Range Interpretation Comments Estimat Glomerular Filtration Rate (test code = 50316-2) 60- >60 Ranges were taken from the National Kidney Disease Education Program and the [facility] Foundation literature.Reference ranges:60 or greater: Cqcrtp10-09 ( for 3 consecutive months): Chronic kidney disease 15 or less: Kidney failureMethodist [facility]ney HospitalGlucose Vuvbi7960-93-35 07:24:00* Test Item Value Reference Range Interpretation Comments Glucose Level (test code = RMZ8577) 127 74-118 H [facility] HospitalCalcium Dwatd9095-00-45 07:24:00* Test Item Value Reference Range Interpretation Comments Calcium Level (test code = 89277-3) 8.8 8.4-10.2 [facility] HospitalUrine Rfveggs7807-61-46 06:48:00* Test Item Value Reference Range Interpretation Comments Urine Culture (test code = 630-4) Organism: YEAST SPECIES [facility] HospitalWhite Blood Hkexw2697-04-67 06:45:00* Test Item Value Reference Range Interpretation Comments White Blood Count (test code = 6690-2) 7.03 4.8-10.8 [facility] HospitalRed Blood Jehqc6022-16-24 06:45:00* Test Item Value Reference Range Interpretation Comments Red Blood Count (test code = 789-8) 3.86 3.6-5.1 [facility] HospitalHemoglobin2018-02-03 06:45:00* Test Item Value Reference Range Interpretation Comments Hemoglobin (test code = 72170-1) 10.0 12.0-16.0 L [facility] HospitalHematocrit2018-02-03 06:45:00* Test Item Value Reference Range Interpretation Comments Hematocrit (test code = 4544-3) 32.0 34.2-44.1 L [facility] HospitalMean Corpuscular Frqmmb5828-92-06 06:45:00* Test Item Value Reference Range Interpretation Comments Mean Corpuscular Volume (test code = 787-2) 82.9 81-99 [facility] HospitalMean Corpuscular Kqzzilospu7425-48-07 06:45:00* Test Item Value Reference Range Interpretation Comments Mean Corpuscular Hemoglobin (test code = 785-6) 25.9 28-32 L [facility] HospitalMean Corpuscular Hemoglobin Concent 2017-03-14 06:45:00* Test Item Value Reference Range Interpretation Comments Mean Corpuscular Hemoglobin Concent (test code = 786-4) 31.3 31-35 [facility] HospitalRed Cell Distribution Rjsog1790-93-11 06:45:00* Test Item Value Reference Range Interpretation Comments Red Cell Distribution Width (test code = 36002-1) 15.3 11.7 -14.4 H [facility] HospitalPlatelet Xcult8744-65-91 06:45:00* Test Item Value Reference Range Interpretation Comments Platelet Count (test code = 777-3) 238 140-360 [facility] HospitalNeutrophils (%) (Auto)2017-03-14 06:45:00 * Test Item Value Reference Range Interpretation Comments Neutrophils (%) (Auto) (test code = 35621-9) 61.4 38.7-80.0 [facility] HospitalLymphocytes (%) (Auto)2017-03-14 06:45:00 * Test Item Value Reference Range Interpretation Comments Lymphocytes (%) (Auto) (test code = 736-9) 29.0 18.0-39.1 [facility] HospitalMonocytes (%) (Auto)2017-03-14 06:45:00* Test Item Value Reference Range Interpretation Comments Monocytes (%) (Auto) (test code = 5905-5) 7.3 4.4-11.3 [facility] HospitalEosinophils (%) (Auto)2017-03-14 06:45:00 * Test Item Value Reference Range Interpretation Comments Eosinophils (%) (Auto) (test code = 713-8) 1.6 0.0-6.0 [facility] HospitalBasophils (%) (Auto)2017-03-14 06:45:00* Test Item Value Reference Range Interpretation Comments Basophils (%) (Auto) (test code = 706-2) 0.3 0.0-1.0 [facility] HospitalIM GRANULOCYTES %2017-03-14 06:45:00* Test Item Value Reference Range Interpretation Comments IM GRANULOCYTES % (test code = IM GRANULOCYTES %) 0.4 0.0- 1.0 [facility] HospitalNeutrophils # (Auto)2017-03-14 06:45:00* Test Item Value Reference Range Interpretation Comments Neutrophils # (Auto) (test code = 751-8) 4.3 2.1-6.9 [facility] HospitalLymphocytes # (Auto)2017-03-14 06:45:00* Test Item Value Reference Range Interpretation Comments Lymphocytes # (Auto) (test code = 76406-1) 2.0 1.0-3.2 [facility] HospitalMonocytes # (Auto)2017-03-14 06:45:00* Test Item Value Reference Range Interpretation Comments Monocytes # (Auto) (test code = 742-7) 0.5 0.2-0.8 [facility] HospitalEosinophils # (Auto)2017-03-14 06:45:00* Test Item Value Reference Range Interpretation Comments Eosinophils # (Auto) (test code = 711-2) 0.1 0.0-0.4 [facility] HospitalBasophils # (Auto)2017-03-14 06:45:00* Test Item Value Reference Range Interpretation Comments Basophils # (Auto) (test code = 704-7) 0.0 0.0-0.1 [facility] HospitalAbsolute Immature Granulocyte (auto 2017-03-14 06:45:00* Test Item Value Reference Range Interpretation Comments Absolute Immature Granulocyte (auto (irena t code = Absolute Immature Granulocyte (auto) 0.03 0-0.1 [facility] HospitalTotal Tkvijrwlr2371-67-94 06:49:00* Test Item Value Reference Range Interpretation Comments Total Bilirubin (test code = 1975-2) 0.6 0.2-1.2 [facility] HospitalAspartate Amino Transf (AST/SGOT) 2017-03-12 06:49:00* Test Item Value Reference Range Interpretation Comments Aspartate Amino Transf (AST/SGOT) (test code = Aspartate Amino Transf (AST/SGOT)) 18 5-34 [facility] HospitalAlanine Aminotransferase (ALT/SGPT) 2017-03-12 06:49:00* Test Item Value Reference Range Interpretation Comments Alanine Aminotransferase (ALT/SGPT) (test code = 1742-6) 28 0-55 [facility] HospitalTotal Kmtlqjw1706-97-07 06:49:00* Test Item Value Reference Range Interpretation Comments Total Protein (test code = 2885-2) 6.9 6.5-8.1 [facility] HospitalAlbumin2018-02-01 06:49:00* Test Item Value Reference Range Interpretation Comments Albumin (test code = 1751-7) 2.8 3.5-5.0 L [facility] HospitalGlobulin2018-02-01 06:49:00* Test Item Value Reference Range Interpretation Comments Globulin (test code = 30708-8) 4.1 2.3-3.5 H [facility] HospitalAlbumin/Globulin Evjjv9215-22-19 06:49:00 * Test Item Value Reference Range Interpretation Comments Albumin/Globulin Ratio (test code = 1759-0) 0.7 0.8-2.0 L [facility] HospitalAlkaline Bcbdecqxgiv5079-39-23 06:49:00* Test Item Value Reference Range Interpretation Comments Alkaline Phosphatase (test code = 6768-6) 82 40-150 [facility] HospitalUrine OYA7026-85-37 04:16:00* Test Item Value Reference Range Interpretation Comments Urine WBC (test code = 5821-4) 50- 0-5 H [facility] HospitalUrine ZRY8290-92-07 04:16:00* Test Item Value Reference Range Interpretation Comments Urine RBC (test code = 31831-6) 50- 0-5 H [facility] HospitalUrine Wldnycul3633-03-48 04:16:00* Test Item Value Reference Range Interpretation Comments Urine Bacteria (test code = 90635-9) MODERATE NONE H [facility] HospitalUrine Epithelial Owyiq1160-63-31 04:16:00 * Test Item Value Reference Range Interpretation Comments Urine Epithelial Cells (test code = 96579-1) RARE NONE [facility] HospitalUrine Ovwyh8014-89-39 04:08:00* Test Item Value Reference Range Interpretation Comments Urine Color (test code = 5778-6) YELLOW YELLOW [facility] HospitalUrine Xspyejp5088-96-80 04:08:00* Test Item Value Reference Range Interpretation Comments Urine Clarity (test code = 68012-2) CLOUDY CLEAR H [facility] HospitalUrine Specific Dppxffi2594-83-85 04:08:00 * Test Item Value Reference Range Interpretation Comments Urine Specific [place] (test code = 5811-5) 1.010 1.010-1.02 5 [facility] HospitalUrine uJ8023-30-07 04:08:00* Test Item Value Reference Range Interpretation Comments Urine pH (test code = 26499-5) 6 5-7 [facility] HospitalUrine Leukocyte Ejwjohuo7986-04-45 04:08:00* Test Item Value Reference Range Interpretation Comments Urine Leukocyte Esterase (test code = 5799-2) 2+ NEGATIVE H [facility] Avlayuz2911-44-84 04:08:00* Test Item Value Reference Range Interpretation Comments Urine Nitrite (test code = 43533-7) NEGATIVE NEGATIVE [facility] Zciandj7069-02-79 04:08:00* Test Item Value Reference Range Interpretation Comments Urine Protein (test code = 5804-0) 2+ NEGATIVE H [facility] Glucose (UA)2017-03-11 04:08:00* Test Item Value Reference Range Interpretation Comments Urine Glucose (UA) (test code = 2349-9) NEGATIVE NEGATIVE [facility] Gkajitm0277-21-64 04:08:00* Test Item Value Reference Range Interpretation Comments Urine Ketones (test code = 22142-4) NEGATIVE NEGATIVE [facility] Iglrhjqcjmgy1073-50-43 04:08:00* Test Item Value Reference Range Interpretation Comments Urine Urobilinogen (test code = 03446-4) 0.2 0.2-1 [facility] Uvhptrpom3518-61-89 04:08:00* Test Item Value Reference Range Interpretation Comments Urine Bilirubin (test code = 1978-6) NEGATIVE NEGATIVE [facility] Pvbax7307-23-11 04:08:00* Test Item Value Reference Range Interpretation Comments Urine Blood (test code = 61335-2) 4+ NEGATIVE H [facility] Oxalm8170-46-84 02:24:00* Test Item Value Reference Range Interpretation Comments Magnesium Level (test code = 45070-5) 1.8 1.3-2.1 [facility] Kwyyi6784-95-89 02:24:00* Test Item Value Reference Range Interpretation Comments Magnesium Level (test code = 51538-8) 1.8 1.3-2.1 [facility] Uqrig3552-01-31 02:24:00* Test Item Value Reference Range Interpretation Comments Magnesium Level (test code = 59572-7) 1.8 1.3-2.1 [facility] Nnrub2605-07-35 02:24:00* Test Item Value Reference Range Interpretation Comments Magnesium Level (test code = 55336-0) 1.8 1.3-2.1 [facility] Dtxgl8519-00-54 02:24:00* Test Item Value Reference Range Interpretation Comments Magnesium Level (test code = 85501-6) 1.8 1.3-2.1 [facility] Nykeg5110-17-42 02:24:00* Test Item Value Reference Range Interpretation Comments Magnesium Level (test code = 45343-5) 1.8 1.3-2.1 [facility] Awfki0448-42-21 02:24:00* Test Item Value Reference Range Interpretation Comments Magnesium Level (test code = 15535-8) 1.8 1.3-2.1 [facility] Calcium Oxalate Dqrjftmp3539-68-36 01:52:00* Test Item Value Reference Range Interpretation Comments Urine Calcium Oxalate Crystals (test code = 5774-5) RARE FE W [facility] Amorphous Dxikidfc8980-37-18 01:52:00* Test Item Value Reference Range Interpretation Comments Urine Amorphous Sediment (test code = 8246-1) FEW FEW [facility] Calcium Oxalate Tetvmqtu8823-80-43 01:52:00* Test Item Value Reference Range Interpretation Comments Urine Calcium Oxalate Crystals (test code = 5774-5) RARE FE W [facility] Amorphous Zbiygqdm4268-49-73 01:52:00* Test Item Value Reference Range Interpretation Comments Urine Amorphous Sediment (test code = 8246-1) FEW FEW [facility] Calcium Oxalate Sntifzbq0406-62-58 01:52:00* Test Item Value Reference Range Interpretation Comments Urine Calcium Oxalate Crystals (test code = 5774-5) RARE FE W [facility] Amorphous Oiwbmkap5680-09-19 01:52:00* Test Item Value Reference Range Interpretation Comments Urine Amorphous Sediment (test code = 8246-1) FEW FEW [facility] Calcium Oxalate Mpnvugja5448-94-57 01:52:00* Test Item Value Reference Range Interpretation Comments Urine Calcium Oxalate Crystals (test code = 5774-5) RARE FE W [facility] Amorphous Dutlezrd7894-97-80 01:52:00* Test Item Value Reference Range Interpretation Comments Urine Amorphous Sediment (test code = 8246-1) FEW FEW [facility] Calcium Oxalate Lsjxbdad0660-71-36 01:52:00* Test Item Value Reference Range Interpretation Comments Urine Calcium Oxalate Crystals (test code = 5774-5) RARE FE W [facility] Calcium Oxalate Rfedzpnh0289-61-57 01:52:00* Test Item Value Reference Range Interpretation Comments Urine Calcium Oxalate Crystals (test code = 5774-5) RARE FE W [facility] Calcium Oxalate Eqmrhgjy9648-05-75 01:52:00* Test Item Value Reference Range Interpretation Comments Urine Calcium Oxalate Crystals (test code = 5774-5) RARE FE W [facility] HospitalBlood Ycpbteh1252-57-03 17:29:00* Test Item Value Reference Range Interpretation Comments Blood Culture (test code = 94354968) NO GROWTH AFTER 5 DAYS, [facility] Kilaltb2663-02-91 17:29:00* Test Item Value Reference Range Interpretation Comments Blood Culture (test code = 60639344) NO GROWTH AFTER 5 DAYS, FINAL REPORT [facility] Tebjmqb7694-05-31 17:29:00* Test Item Value Reference Range Interpretation Comments Blood Culture (test code = 43390987) NO GROWTH AFTER 5 DAYS, FINAL REPORT [facility] Gedvpwo0347-85-25 17:29:00* Test Item Value Reference Range Interpretation Comments Blood Culture (test code = 51362077) NO GROWTH AFTER 5 DAYS, FINAL REPORT [facility] Vfwdggz0854-18-46 17:29:00* Test Item Value Reference Range Interpretation Comments Blood Culture (test code = 55352543) NO GROWTH AFTER 5 DAYS, FINAL REPORT [facility]2017-11-24 17:29:00* Test Item Value Reference Range Interpretation Comments Blood Culture (test code = 78547988) NO GROWTH AFTER 5 DAYS, FINAL REPORT [facility] Noyjalb9892-29-59 20:10:00* Test Item Value Reference Range Interpretation Comments Bedside Glucose (test code = 33236-1) 216 70-120 H Meter ID: [id number] [facility] Glucose 2016-12-31 20:10:00* Test Item Value Reference Range Interpretation Comments Bedside Glucose (test code = 53240-0) 216 70-120 H Meter ID: [id number] Health Harris [facility] Glucose 2016-12-31 20:10:00* Test Item Value Reference Range Interpretation Comments Bedside Glucose (test code = 92231-2) 216 70-120 H Meter ID: [id number] Health [facility] Glucose 2016-12-31 20:10:00* Test Item Value Reference Range Interpretation Comments Bedside Glucose (test code = 37852-8) 216 70-120 H Meter ID: [id number] Health Harris [facility] Glucose 2016-12-31 20:10:00* Test Item Value Reference Range Interpretation Comments Bedside Glucose (test code = 86463-9) 216 70-120 H Meter ID: [id number] County Memorial Hospitalside Glucose 2016-12-31 20:10:00* Test Item Value Reference Range Interpretation Comments Bedside Glucose (test code = 68312-5) 216 70-120 H Meter ID: [id number] Chorionic Gonadotropin, Jlawz8822-56-83 08:13:00* Test Item Value Reference Range Interpretation Comments Human Chorionic Gonadotropin, Quant (test code = 33381-3) 1.95 0-[address] [facility] Chorionic Gonadotropin, Quant 2016-12-31 08:13:00* Test Item Value Reference Range Interpretation Comments Human Chorionic Gonadotropin, Quant (test code = 21887-2) 1.95 0-[address] [facility] Chorionic Gonadotropin, Quant 2016-12-31 08:13:00* Test Item Value Reference Range Interpretation Comments Human Chorionic Gonadotropin, Quant (test code = 90254-7) 1.95 0-[address] [facility] Chorionic Gonadotropin, Quant 2016-12-31 08:13:00* Test Item Value Reference Range Interpretation Comments Human Chorionic Gonadotropin, Quant (test code = 83576-3) 1.95 0-[address] [facility] Chorionic Gonadotropin, Quant 2016-12-31 08:13:00* Test Item Value Reference Range Interpretation Comments Human Chorionic Gonadotropin, Quant (test code = 42487-1) 1.95 0-[address] [facility] Chorionic Gonadotropin, Quant 2016-12-31 08:13:00* Test Item Value Reference Range Interpretation Comments Human Chorionic Gonadotropin, Quant (test code = 42822-8) 1.95 0-10 [facility] HospitalProthrombin Ctxn6906-27-53 10:04:00* Test Item Value Reference Range Interpretation Comments Prothrombin Time (test code = 5902-2) 12.8 11.9-14.5 [facility] HospitalProthromb Time International Ratio 2016-12-30 10:04:00* Test Item Value Reference Range Interpretation Comments Prothromb Time International Ratio (test code = 6301-6) 0.92 Oral Anticoagulant Therapy INR Values:1. Low Intensity Therapy 1.5 - 2.02 . Moderate Intensity Therapy 2.0 - 3.03. High Intensity Therapy(1) 2.5 - 3. 54. High Intensity Therapy(2) 3.0 - 4.05. Panic Value INR > 5.0 [facility] HospitalProthrombin Xpnj1449-96-93 10:04:00* Test Item Value Reference Range Interpretation Comments Prothrombin Time (test code = 5902-2) 12.8 11.9-14.5 [facility] HospitalProthromb Time International Ratio 2016-12-30 10:04:00* Test Item Value Reference Range Interpretation Comments Prothromb Time International Ratio (test code = 6301-6) 0.92 Oral Anticoagulant Therapy INR Values:1. Low Intensity Therapy 1.5 - 2.02 . Moderate Intensity Therapy 2.0 - 3.03. High Intensity Therapy(1) 2.5 - 3. 54. High Intensity Therapy(2) 3.0 - 4.05. Panic Value INR > 5.0 [facility] HospitalProt[facility] Ultw3747-59-94 10:04:00* Test Item Value Reference Range Interpretation Comments Prothrombin Time (test code = 5902-2) 12.8 11.9-14.5 [facility] HospitalProthromb Time International Ratio 2016-12-30 10:04:00* Test Item Value Reference Range Interpretation Comments Prothromb Time International Ratio (test code = 6301-6) 0.92 Oral Anticoagulant Therapy INR Values:1. Low Intensity Therapy 1.5 - 2.02 . Moderate Intensity Therapy 2.0 - 3.03. High Intensity Therapy(1) 2.5 - 3. 54. High Intensity Therapy(2) 3.0 - 4.05. Panic Value INR > 5.0 [facility] HospitalProthrombak Qbbx9249-91-10 10:04:00* Test Item Value Reference Range Interpretation Comments Prothrombin Time (test code = 5902-2) 12.8 11.9-14.5 [facility] HospitalProthromb Time International Ratio 2016-12-30 10:04:00* Test Item Value Reference Range Interpretation Comments Prothromb Time International Ratio (test code = 6301-6) 0.92 Oral Anticoagulant Therapy INR Values:1. Low Intensity Therapy 1.5 - 2.02 . Moderate Intensity Therapy 2.0 - 3.03. High Intensity Therapy(1) 2.5 - 3. 54. High Intensity Therapy(2) 3.0 - 4.05. Panic Value INR > 5.0 [facility] HospitalProthrombin Gpmt3122-29-70 10:04:00* Test Item Value Reference Range Interpretation Comments Prothrombin Time (test code = 5902-2) 12.8 11.9-14.5 [facility] HospitalProthromb Time International Ratio 2016-12-30 10:04:00* Test Item Value Reference Range Interpretation Comments Prothromb Time International Ratio (test code = 6301-6) 0.92 Oral Anticoagulant Therapy INR Values:1. Low Intensity Therapy 1.5 - 2.02 . Moderate Intensity Therapy 2.0 - 3.03. High Intensity Therapy(1) 2.5 - 3. 54. High Intensity Therapy(2) 3.0 - 4.05. Panic Value INR > 5.0 [facility] HospitalProthrombin Rwel3804-16-13 10:04:00* Test Item Value Reference Range Interpretation Comments Prothrombin Time (test code = 5902-2) 12.8 11.9-14.5 [facility] HospitalProthromb Time International Ratio 2016-12-30 10:04:00* Test Item Value Reference Range Interpretation Comments Prothromb Time International Ratio (test code = 6301-6) 0.92 Oral Anticoagulant Therapy INR Values:1. Low Intensity Therapy 1.5 - 2.02 . Moderate Intensity Therapy 2.0 - 3.03. High Intensity Therapy(1) 2.5 - 3. 54. High Intensity Therapy(2) 3.0 - 4.05. Panic Value INR > 5.0 [facility] Moduycl7939-56-59 07:41:00* Test Item Value Reference Range Interpretation Comments Urine Culture (test code = 630-4) Organism: KLEBSIELLA PNEUMONIAE-E SBL [facility] Eadlxsw8955-47-57 07:41:00* Test Item Value Reference Range Interpretation Comments Urine Culture (test code = 630-4) Organism: KLEBSIELLA PNEUMONIAE-E SBL [facility] Vzxdojm2272-05-61 07:41:00* Test Item Value Reference Range Interpretation Comments Urine Culture (test code = 630-4) Organism: KLEBSIELLA PNEUMONIAE-E SBL [facility] Erbownp6660-07-79 07:41:00* Test Item Value Reference Range Interpretation Comments Urine Culture (test code = 630-4) Organism: KLEBSIELLA PNEUMONIAE-E L [facility] Ixemvco0658-52-84 07:41:00* Test Item Value Reference Range Interpretation Comments Urine Culture (test code = 630-4) Organism: KLEBSIELLA PNEUMONIAE-E SBL [facility] Renal Epithelial Ijres8766-32-15 16:15:00* Test Item Value Reference Range Interpretation Comments Urine Renal Epithelial Cells (test code = 12328-1) FEW NON E H [facility] Renal Epithelial Higur0798-43-17 16:15:00* Test Item Value Reference Range Interpretation Comments Urine Renal Epithelial Cells (test code = 33439-0) FEW NON E H [facility] Renal Epithelial Embjc6176-91-48 16:15:00* Test Item Value Reference Range Interpretation Comments Urine Renal Epithelial Cells (test code = 74894-3) FEW NON E H [facility] Renal Epithelial Nwvxu9665-14-11 16:15:00* Test Item Value Reference Range Interpretation Comments Urine Renal Epithelial Cells (test code = 09766-4) FEW NON E H [facility] Renal Epithelial Espuk4112-89-66 16:15:00* Test Item Value Reference Range Interpretation Comments Urine Renal Epithelial Cells (test code = 86883-4) FEW NON E H [facility] Renal Epithelial Mebju2826-14-13 16:15:00* Test Item Value Reference Range Interpretation Comments Urine Renal Epithelial Cells (test code = 27496-0) FEW NON E H [facility] Afvppaq4163-16-98 06:03:00* Test Item Value Reference Range Interpretation Comments Urine Culture (test code = 630-4) Organism: VALERIO ALBICANS [facility] HospitalPhosphorus Qyuch6618-16-43 07:09:00* Test Item Value Reference Range Interpretation Comments Phosphorus Level (test code = XUS4913) 3.2 2.3-4.7 [facility]Phosphorus Gvpxi1521-18-10 07:09:00* Test Item Value Reference Range Interpretation Comments Phosphorus Level (test code = CSP5608) 3.2 2.3-4.7 [facility]Phosphorus Dthiq9939-38-40 07:09:00* Test Item Value Reference Range Interpretation Comments Phosphorus Level (test code = BOS6410) 3.2 2.3-4.7 [facility]Phosphorus Vzkys3926-47-52 07:09:00* Test Item Value Reference Range Interpretation Comments Phosphorus Level (test code = NJU6982) 3.2 2.3-4.7 [facility]Phosphorus Zokgx7973-89-39 07:09:00* Test Item Value Reference Range Interpretation Comments Phosphorus Level (test code = RKJ6627) 3.2 2.3-4.7 [facility] HospitalActivated Partial Thromboplast Time 2016-11-05 01:54:00* Test Item Value Reference Range Interpretation Comments Activated Partial Thromboplast Time (test code = 96101-4) 30.6 23.8-35.5 [facility] HospitalAct[facility] Partial Thromboplast Time 2016-11-05 01:54:00* Test Item Value Reference Range Interpretation Comments Activated Partial Thromboplast Time (test code = 20013-7) 30.6 23.8-35.5 [facility] HospitalAct[facility] Partial Thromboplast Time 2016-11-05 01:54:00* Test Item Value Reference Range Interpretation Comments Activated Partial Thromboplast Time (test code = 72999-6) 30.6 23.8-35.5 [facility]Act[facility] Partial Thromboplast Time 2016-11-05 01:54:00* Test Item Value Reference Range Interpretation Comments Activated Partial Thromboplast Time (test code = 84527-7) 30.6 23.8-35.5 [facility]Act[facility] Partial Thromboplast Time 2016-11-05 01:54:00* Test Item Value Reference Range Interpretation Comments Activated Partial Thromboplast Time (test code = 66451-8) 30.6 23.8-35.5 [facility] HospitalVitamin B12 Ruhfc9556-08-57 14:56:00* Test Item Value Reference Range Interpretation Comments Vitamin B12 Level (test code = 73975-4) 254 213-816 [facility] HospitalFolate2017-09-26 14:56:00* Test Item Value Reference Range Interpretation Comments Folate (test code = 2284-8) 14.2 7.0-15.4 [facility] HospitalVitamin B12 Ndqui2364-13-80 14:56:00* Test Item Value Reference Range Interpretation Comments Vitamin B12 Level (test code = 03599-6) 254 213-816 [facility] HospitalFolate2017-09-26 14:56:00* Test Item Value Reference Range Interpretation Comments Folate (test code = 2284-8) 14.2 7.0-15.4 [facility] HospitalVitamin B12 Thmeq0915-03-50 14:56:00* Test Item Value Reference Range Interpretation Comments Vitamin B12 Level (test code = 63966-9) 254 213-816 [facility] HospitalFolate2017-09-26 14:56:00* Test Item Value Reference Range Interpretation Comments Folate (test code = 2284-8) 14.2 7.0-15.4 [facility] HospitalVitamin B12 Myfib4954-59-71 14:56:00* Test Item Value Reference Range Interpretation Comments Vitamin B12 Level (test code = 22329-8) 254 213-816 [facility]2017-09-26 14:56:00* Test Item Value Reference Range Interpretation Comments Folate (test code = 2284-8) 14.2 7.0-15.4 [facility] HospitalVitamin B12 Xhwgi9230-86-33 14:56:00* Test Item Value Reference Range Interpretation Comments Vitamin B12 Level (test code = 95797-9) 254 213-816 [facility] HospitalFolate2017-09-26 14:56:00* Test Item Value Reference Range Interpretation Comments Folate (test code = 2284-8) 14.2 7.0-15.4 [facility] HospitalFerritin2017-09-26 13:58:00* Test Item Value Reference Range Interpretation Comments Ferritin (test code = 2276-4) 120.23 4.63-204.00 [facility]Ferritin2017-09-26 13:58:00* Test Item Value Reference Range Interpretation Comments Ferritin (test code = 2276-4) 120.23 4.63-204.00 [facility]Ferritin2017-09-26 13:58:00* Test Item Value Reference Range Interpretation Comments Ferritin (test code = 2276-4) 120.23 4.63-204.00 [facility]2017-09-26 13:58:00* Test Item Value Reference Range Interpretation Comments Ferritin (test code = 2276-4) 120.23 4.63-204.00 [facility]2017-09-26 13:58:00* Test Item Value Reference Range Interpretation Comments Ferritin (test code = 2276-4) 120.23 4.63-204.00 [facility]2017-09-26 13:31:00* Test Item Value Reference Range Interpretation Comments Iron Level (test code = 2498-4) 18 50-170 L [facility] HospitalTotal Iron Binding Ifwtftbe1345-60-99 13:31:00* Test Item Value Reference Range Interpretation Comments Total Iron Binding Capacity (test code = 2500-7) 269 261-4 78 [facility] HospitalPercent Iron Apchphxwxr5003-75-22 13:31:00* Test Item Value Reference Range Interpretation Comments Percent Iron Saturation (test code = 2502-3) 7 15-50 L [facility] HospitalTransferrin2017-09-26 13:31:00* Test Item Value Reference Range Interpretation Comments Transferrin (test code = 3034-6) 192 180-382 [facility]2017-09-26 13:31:00* Test Item Value Reference Range Interpretation Comments Iron Level (test code = 2498-4) 18 50-170 L [facility] Iron Binding Mjnqchca9286-21-81 13:31:00* Test Item Value Reference Range Interpretation Comments Total Iron Binding Capacity (test code = 2500-7) 269 261-4 78 [facility] Iron Epyzakgkdv0955-47-81 13:31:00* Test Item Value Reference Range Interpretation Comments Percent Iron Saturation (test code = 2502-3) 7 15-50 L [facility] HospitalTransferrin2017-09-26 13:31:00* Test Item Value Reference Range Interpretation Comments Transferrin (test code = 3034-6) 192 180-382 [facility]2017-09-26 13:31:00* Test Item Value Reference Range Interpretation Comments Iron Level (test code = 2498-4) 18 50-170 L [facility] Iron Binding Mqlruyoj3198-92-54 13:31:00* Test Item Value Reference Range Interpretation Comments Total Iron Binding Capacity (test code = 2500-7) 269 261-4 78 [facility] Iron Bjazlorves5422-37-68 13:31:00* Test Item Value Reference Range Interpretation Comments Percent Iron Saturation (test code = 2502-3) 7 15-50 L [facility] HospitalTransferrin2017-09-26 13:31:00* Test Item Value Reference Range Interpretation Comments Transferrin (test code = 3034-6) 192 180-382 [facility]2017-09-26 13:31:00* Test Item Value Reference Range Interpretation Comments Iron Level (test code = 2498-4) 18 50-170 L [facility] Iron Binding Cxtkvebt5087-70-48 13:31:00* Test Item Value Reference Range Interpretation Comments Total Iron Binding Capacity (test code = 2500-7) 269 261-4 78 [facility] Iron Cnmtshdded2525-85-04 13:31:00* Test Item Value Reference Range Interpretation Comments Percent Iron Saturation (test code = 2502-3) 7 15-50 L [facility] HospitalTransferrin2017-09-26 13:31:00* Test Item Value Reference Range Interpretation Comments Transferrin (test code = 3034-6) 192 180-382 [facility] HospitalIron Sgwvc9610-35-96 13:31:00* Test Item Value Reference Range Interpretation Comments Iron Level (test code = 2498-4) 18 50-170 L [facility] HospitalTotal Iron Binding Ihyfbzkh8909-57-31 13:31:00* Test Item Value Reference Range Interpretation Comments Total Iron Binding Capacity (test code = 2500-7) 269 261-4 78 [facility]Percent Iron Kpwqslziol4487-73-45 13:31:00* Test Item Value Reference Range Interpretation Comments Percent Iron Saturation (test code = 2502-3) 7 15-50 L [facility] HospitalTransferrin2017-09-26 13:31:00* Test Item Value Reference Range Interpretation Comments Transferrin (test code = 3034-6) 192 180-382 [facility] HospitalCreatine Kinase BG3684-26-31 13:11:00* Test Item Value Reference Range Interpretation Comments Creatine Kinase MB (test code = 50580-8) 0.20 0.00-5.00 [facility]Trm[facility]ern G5551-24-72 13:11:00* Test Item Value Reference Range Interpretation Comments Troponin I (test code = 86508-7) -0.001 0-0.300 [facility] HospitalCreatine Kinase CY2445-27-53 13:11:00* Test Item Value Reference Range Interpretation Comments Creatine Kinase MB (test code = 88829-7) 0.20 0.00-5.00 [facility] HospitalTrmusc [facility] centern J7846-24-27 13:11:00* Test Item Value Reference Range Interpretation Comments Troponin I (test code = VLN4379) -0.001 0-0.300 [facility] HospitalCreatine Kinase IG4779-62-22 13:11:00* Test Item Value Reference Range Interpretation Comments Creatine Kinase MB (test code = 44300-4) 0.20 0.00-5.00 [place] 76355017-09-25 13:11:00* Test Item Value Reference Range Interpretation Comments Troponin I (test code = CSL6937) -0.001 0-0.300 [facility] HospitalCreatine Kinase UK4035-38-55 13:11:00* Test Item Value Reference Range Interpretation Comments Creatine Kinase MB (test code = 62943-1) 0.20 0.00-5.00 [place] 76355017-09-25 13:11:00* Test Item Value Reference Range Interpretation Comments Troponin I (test code = JGV3088) -0.001 0-0.300 [facility] HospitalCreatine Kinase OF6829-61-35 13:11:00* Test Item Value Reference Range Interpretation Comments Creatine Kinase MB (test code = 59293-3) 0.20 0.00-5.00 [place] 76355017-09-25 13:11:00* Test Item Value Reference Range Interpretation Comments Troponin I (test code = KIH4894) -0.001 0-0.300 [facility] HospitalCreatine Rvccsn1718-01-10 12:13:00* Test Item Value Reference Range Interpretation Comments Creatine Kinase (test code = 2157-6) 28 29-168 L [facility] HospitalCreatine Akdcvc1823-91-95 12:13:00* Test Item Value Reference Range Interpretation Comments Creatine Kinase (test code = 2157-6) 28 29-168 L [facility] HospitalCreatine Flqfpv8790-81-60 12:13:00* Test Item Value Reference Range Interpretation Comments Creatine Kinase (test code = 2157-6) 28 29-168 L [facility] HospitalCreatine Giidfx8505-66-01 12:13:00* Test Item Value Reference Range Interpretation Comments Creatine Kinase (test code = 2157-6) 28 29-168 [facility] Nbqrzf0030-53-54 12:13:00* Test Item Value Reference Range Interpretation Comments Creatine Kinase (test code = 2157-6) 28 29-168 L [facility] urine wkhlmkf2435-76-57 15:16:00* Test Item Value Reference Range Interpretation Comments Urine Culture (test code = 630-4) Organism: ESCHERICHIA COLI-ESBL [facility] urine bsvvzju0613-90-08 15:16:00* Test Item Value Reference Range Interpretation Comments Urine Culture (test code = 630-4) Organism: ESCHERICHIA COLI-ESBL [facility] urine vukfehf3826-77-36 15:16:00* Test Item Value Reference Range Interpretation Comments Urine Culture (test code = 630-4) Organism: ESCHERICHIA COLI-ESBL [facility] Sktbfrm9606-67-92 16:14:00* Test Item Value Reference Range Interpretation Comments Urine Culture (test code = 630-4) Organism: ESCHERICHIA COLI-ESBL [facility] Lwjphbc6385-93-62 16:14:00* Test Item Value Reference Range Interpretation Comments Urine Culture (test code = 630-4) Organism: ESCHERICHIA COLI-ESBL [facility] Qedfaqs9852-26-69 16:14:00* Test Item Value Reference Range Interpretation Comments Urine Culture (test code = 630-4) Organism: ESCHERICHIA COLI-ESBL [facility] HospitalTriglycerides Jlbuw6007-83-51 07:19:00* Test Item Value Reference Range Interpretation Comments Triglycerides Level (test code = 2571-8) 164 0-149 H [facility]olesterol Qumpr5371-24-01 07:19:00* Test Item Value Reference Range Interpretation Comments Cholesterol Level (test code = 2093-3) 187 0-199 Less than 200 mg/dL Low Rjvr552 - 239 mg/dL Borderline Izjb567 m g/dl and greater High Risk [facility] HospitalLDL Baodsmdxixl8858-06-94 07:19:00* Test Item Value Reference Range Interpretation Comments LDL Cholesterol (test code = 68081-2) 106 60-130 [facility] Lpveifwyqvs3655-90-38 07:19:00* Test Item Value Reference Range Interpretation Comments HDL Cholesterol (test code = 2085-9) 48 40-60 [facility]/HDL Rqxdj6693-92-45 07:19:00 * Test Item Value Reference Range Interpretation Comments Cholesterol/HDL Ratio (test code = 9830-1) 3.9 3.0-3.6 H [facility] HospitalTriglycerides Bvihc8242-39-14 07:19:00* Test Item Value Reference Range Interpretation Comments Triglycerides Level (test code = 2571-8) 164 0-149 H [facility]Cholesterol Cokev6188-73-48 07:19:00* Test Item Value Reference Range Interpretation Comments Cholesterol Level (test code = 2093-3) 187 0-199 Less than 200 mg/dL Low Hswk494 - 239 mg/dL Borderline Orli872 m g/dl and greater High Risk [facility] Zdsfimmuflg1516-32-15 07:19:00* Test Item Value Reference Range Interpretation Comments LDL Cholesterol (test code = 66194-4) 106 60-130 [facility] Gigcyfzpywj8266-32-20 07:19:00* Test Item Value Reference Range Interpretation Comments HDL Cholesterol (test code = 2085-9) 48 40-60 [facility]/HDL Ganpb1600-70-70 07:19:00 * Test Item Value Reference Range Interpretation Comments Cholesterol/HDL Ratio (test code = 9830-1) 3.9 3.0-3.6 H [facility] HospitalTriglycerides Bswlr7987-52-33 07:19:00* Test Item Value Reference Range Interpretation Comments Triglycerides Level (test code = 2571-8) 164 0-149 H [facility] HospitalCholesterol Pujah8267-43-30 07:19:00* Test Item Value Reference Range Interpretation Comments Cholesterol Level (test code = 2093-3) 187 0-199 Less than 200 mg/dL Low Jjim830 - 239 mg/dL Borderline Edju371 m g/dl and greater High Risk [facility] Iypakyjseni8448-32-62 07:19:00* Test Item Value Reference Range Interpretation Comments LDL Cholesterol (test code = 54356-8) 106 60-130 [facility] Dbrwnpvztqo9851-88-60 07:19:00* Test Item Value Reference Range Interpretation Comments HDL Cholesterol (test code = 2085-9) 48 40-60 [facility]HDL Bnooo8544-22-68 07:19:00 * Test Item Value Reference Range Interpretation Comments Cholesterol/HDL Ratio (test code = 9830-1) 3.9 3.0-3.6 H [facility] HospitalHemoglobin A1c Jefseqp4176-66-03 07:10:00 * Test Item Value Reference Range Interpretation Comments Hemoglobin A1c Percent (test code = Hemoglobin A1c Percent) 6.5 4.0-7.0 [facility] HospitalHemoglobin A1c Eithewv9021-53-20 07:10:00 * Test Item Value Reference Range Interpretation Comments Hemoglobin A1c Percent (test code = Hemoglobin A1c Percent) 6.5 4.0-7.0 [facility] HospitalHemoglobin A1c Gzqmebc5498-32-06 07:10:00 * Test Item Value Reference Range Interpretation Comments Hemoglobin A1c Percent (test code = Hemoglobin A1c Percent) 6.5 4.0-7.0 [facility] HospitalLactic Acid Sqzjy2496-67-26 18:48:00* Test Item Value Reference Range Interpretation Comments Lactic Acid Level (test code = Lactic Acid Level) 18.1 4.5- 19.8 [facility] HospitalL[facility] Acid Zdnjg0930-81-88 18:48:00* Test Item Value Reference Range Interpretation Comments Lactic Acid Level (test code = Lactic Acid Level) 18.1 4.5- 19.8 [facility] HospitalLactic Acid Opwiz0460-67-20 18:48:00* Test Item Value Reference Range Interpretation Comments Lactic Acid Level (test code = Lactic Acid Level) 18.1 4.5- 19.8 [facility] Xoxveoiboqop7127-63-21 12:17:00* Test Item Value Reference Range Interpretation Comments Stool Calprotectin (test code = 86303-0) -16 0-120 Concentration Interpretation Follow-Up<16 - 50 ug/g Normal None>50 -120 ug/g Borderline Re-evaluate in 4-6 weeks >120 ug/g Abnormal Repeat as clinically indicatedPerformed at: - [facility], [place] [id number] Director: Nabil Thomas MD, Phone: [phone] [facility] Tltuitnuxaqw6180-87-96 12:17:00* Test Item Value Reference Range Interpretation Comments Stool Calprotectin (test code = 80600-3) -16 0-120 Concentration Interpretation Follow-Up<16 - 50 ug/g Normal None>50 -120 ug/g Borderline Re-evaluate in 4-6 weeks >120 ug/g Abnormal Repeat as clinically indicatedPerformed at: [facility] [id number] Director: Nabil Thomas MD, Phone: [phone] [facility]ney HospitalClostridium Difficile Toxin A & L5075-97-13 14:20:00* Test Item Value Reference Range Interpretation Comments Clostridium Difficile Toxin A & B (test code = 170595546) NEGATIVE NEGATIVE Testing on stool aspirate specimens is outside resident hall director claims since specime n type not validated on this assay.[facility] Clostridium Difficile Toxin A & K6001-31-82 14:20:00* Test Item Value Reference Range Interpretation Comments Clostridium Difficile Toxin A & B (test code = 705929450) NEGATIVE NEGATIVE Testing on stool aspirate specimens is outside resident hall director claims since specime n type not validated on this assay.[facility] Lactoferrin (LAB)2016-07-26 21:42:00* Test Item Value Reference Range Interpretation Comments Stool Lactoferrin (LAB) (test code = 19009-8) NEGATIVE NEGATIVE Testing on stool aspirate specimens is outside resident hall director claims since specime n type not validated on this assay.[facility] Lactoferrin (LAB)2016-07-26 21:42:00* Test Item Value Reference Range Interpretation Comments Stool Lactoferrin (LAB) (test code = 22444-0) NEGATIVE NEGATIVE Testing on stool aspirate specimens is outside resident hall director claims since specime n type not validated on this assay.[facility] HospitalLipase 2016-07-24 16:31:00* Test Item Value Reference Range Interpretation Comments Lipase (test code = 3040-3) 23 8-78 [facility] HospitalLipase2017-06-15 16:31:00* Test Item Value Reference Range Interpretation Comments Lipase (test code = 3040-3) 23 [facility] HospitalUrine Dqilx1379-73-22 12:39:00* Test Item Value Reference Range Interpretation Comments Urine Mucus (test code = 8247-9) MODERATE RARE H [facility] HospitalUrine Jxsxz9731-01-32 12:39:00* Test Item Value Reference Range Interpretation Comments Urine Mucus (test code = 8247-9) MODERATE RARE H [facility]UR[facility] IAZBW3168-75-19 22:54:00 Negative *NA*(02/15/15 4:54 PM)[facility] CSNKR0803-73-47 22:54:00 Moderate *ABN*(02/15/15 4:54 PM)[facility] RLJZD6842-17-31 22:54:00 Positive *ABN*(02/15/15 4:54 PM)[facility] HGDXJ5790-46-39 22:54:00 Large *ABN*(02/15/15 4:54 PM)[facility] SJHXH2839-74-27 22:54:00> 182[facility] BVRMB0798-56-93 22:54:86835Toklragm HermannURINE AND WEHBJ1243-48-25 22:54:0034[facility] EWIGK4205-67-97 22:54:00 Yellow *NA*(02/15/15 4:54 PM)[facility] YBYWM4460-46-84 22:54:00 Marked *ABN*(02/15/15 4:54 PM)[facility] SPRZI5259-24-35 22:54:00 5.0[facility] XDDVP8636-43-80 22:54:001.018[facility]annCHEM FYXMF3193-34-81 22:40:000.6[facility]annCHEM LNDHN7468-56-22 22:40:005.8 [facility]annCHE[facility] XVVGM4652-87-39 22:40:0012[facility]annCHEM PANEL 2015-02-15 22:40:0012.6[facility]annCHE[facility] MJEVL5193-73-31 22:40:87318Pvycgyvt HermannCHEM KQWSI1471-26-01 22:40:0028[facility]annCHEM PETDO2539-58-36 22:40:000.3[facility]annCHEM XESND1105-97-19 22:40:0073[facility]annCHEM CQQQZ7271-51-12 22:40:0025[facility]annCHEM ZYUOZ7112-09-97 22:40:003.4 [facility] HUBVJ5156-11-56 22:40:009.2[facility]annCHEM PANEL 2015-02-15 22:40:009.1[facility]annCHEM SQVMM9441-04-16 22:40:0026[facility]annCHEM QUPEO8661-52-12 22:40:85405Dzsyfxyj HermannCHEM SDRYD6361-11-21 22:40:25882Xcjsikdm HermannCHEM NTXJV9183-56-08 22:40:004.6[facility]annCHE[facility] YKSID0636-59-58 22:40:000.91[facility]annCHEM OERVQ0712-33-93 22:40:0011 [facility]annCHEM UBKME8402-17-09 22:40:73658Ihdycnql HermannENDOCRINOLOGY 2015-02-15 22:40:00Negative *NA*(02/15/15 4:40 PM)[facility]annHEMATOLOGY 2015-02-15 22:40:0032.8[facility] OizjpdbZIRWHTEZOR2962-36-22 22:40:0060.0[facility] RhkheqfAHYKNFYUGH7674-93-07 22:40:000.2[facility] EcqrortWKSQUCCWKB1010-26-35 22:40:000.2[facility] ApupeseFXNJXOMHQS0390-67-07 22:40:004.6[facility] Osei VKLNVLCYFY0043-95-25 22:40:001.2[facility] FkerzybXHFCOJOEVM6554-06-94 22:40:001.4 Memorial HhzftycECUPSBKPLW0621-04-27 22:40:007.3[facility]annHEMATOLOGY 2015-02-15 22:40:000.6[facility]orial TzzxtxuCHXWBCJIFR7299-26-89 22:40:004.0[facility]orial WfehdxuSVCMPXNJPT5088-43-27 22:40:00Clumped (02/15/15 4:40 PM)[facility] IHVCCZPYYB0528-95-78 22:40:00Normal (02/15/15 4:40 PM)[facility]annHEMATOLOGY 2015-02-15 22:40:008.7[facility] UhvelojDUDUNGSKNK2583-15-71 22:40:0012.0[facility] MnbugxmOYBOGBTJVN5401-81-99 22:40:004.90[facility]orial LlgdwzmLNTRCHDCFJ4500-59-81 22:40:0039.0[facility]orial RlhgalpXHENTODOLU2194-10-17 22:40:0079.7[facility] Kountze GEQLAGURWR5541-56-36 22:40:0012.0[facility]orial ZkwmjbbGRERNKHGNJ9815-35-67 22:40:00 14.8[facility]orial FutzilhQALTVCWBBZ6431-32-26 22:40:0030.8[facility]annHEMATOLOGY 2015-02-15 22:40:47015Iagmcevo KfsspvhINLBDJQSJE7680-07-13 22:40:00* Test Item Value Reference Range Interpretation Comments MCH (test code = MCH) 24.5 pg 27.0-31.0 [facility]annSPECIAL PROCEDURE IN MARKETING TRAFFIC COORDINATOR [place] [address] Patient Name: WESLY HUTCHINSON MR #: [id number] : 1960 Age/Sex: 56/F Req #: [id number] Adm Physician: Ordered by: JARET ESPINOSA MD Report #: [id number] Location: MARKETING TRAFFIC COORDINATOR Room/Bed: Procedure: [id number] IR/SPECIAL PROCEDURE IN MARKETING TRAFFIC COORDINATOR Exam Date: Exam Time: REPORT STATUS: Sig jie Nephrostomy catheter evaluation and exchange, 07/03/2017 Pre-Procedur e Diagnosis: Cervical cancer status post radiation therapy with right ureteral stenosis. Post-procedure Diagnosis:Cervical cancer status post radiation ther apy with right ureteral stenosis Plastics Tooling Engineer: Eleni Thomas It Assistant: Non e Sedation: None. Radiation Dose:1.931 cGycm2 (Dose Area Product) Fluor oscopy time:0.7 minutes Estimate blood loss: None Blood administered: None Complications: None Implants/Grafts: 8-South African right nephrostomy Specimen: None Procedure: Informed consent [...] encrus tation. Glidewire was exchanged for a Dexcomson wire with a short KMP catheter. A new 10-South African nephrostomy was coiled in the renal pelvis [...] encrusted with debris. Impre ssion: Successful right 10-South African nephrostomy exchange with antegrade nephrost ogram. Recommendations: Routine catheter exchange in [address] encrustation. This report was generated with voice-recognition te nology. Errors in decorative greens cutter can occur. Please interpret accordingly and contact a radiologist if there are any questions regarding the report. Si gned by: Dr. Carla Thomas M.D. on 07/03/2017 11:55 AM Dictated By: CARLA THOMAS MD 1522 Tra nscribed By: DEYANIRA on 07/09/17 1522 COPY TO: JARET ESPINOSA MD CT ABDOMEN/PELVIS WO [place] [address] Patient Name: WESLY HUTCHINSON MR #: [id number] : 1960 Age/Sex: 56/F Req #: [id number] Adm Physician: Ordered by: ASHA BARDALES TUBE WASHER Report #: [id number] Location: ER Room/Bed: Procedure: [id number] CT/CT ABDOMEN/PELVIS WO Exam Date: 04/12/17 Exam [...] TO: ASHA BARDALES NP SPECIAL PROCEDURE IN MARKETING TRAFFIC COORDINATOR [place] [address] Patient Name: WESLY HUTCHINSON MR #: [id number] : 1960 Age/Sex: 56/F Req #: [id number] Adm Physician: VIKY MONTOYA MD Ordered by: JARET ESPINOSA MD Report #: [id number] Location: MED/SURG2 Room/Bed: [facility] Procedure: [id number] IR/SPE JARETHL PROCEDURE IN MARKETING TRAFFIC COORDINATOR Exam Date: Exam Time: REPORT STATUS: Signed Nephrostomy catheter evaluation and subsequent exc miriam, 03/11/2017 Pre-Procedure Diagnosis: Cervical cancer status post radia tion therapy with right ureteral stenosis. Post-procedure Diagnosis:Cervical cancer status post radiation therapy with right ureteral stenosis Operat or: Eleni Thomas It Assistant: None Sedation: Moderate sedation was provided w [...] None Blood administered: None Complications: None Implants/Grafts: 10-South African right nephrostomy Specimen: None Procedure: Informed consent was obtained and the patient positioned prone in the fluoroscopy suite. A timeout was performed. The indwelling right nephrostomy was prepped and draped in standard fashion. Diagnostic antegrade nephrostogram was performed given the long indwelling time of the previously placed for ostomy. See findings below. Attempts to remove the indwelling 8-South African nephrostomy over a Bentson and Glidewire were unsuccessful due to heavy encrustation. The catheter was subsequently severed and removed through an 11-South African peel-away sheath. A Bentson wire was advanced through the peel-away sheath and exchanged for a 10-South African nephrostomy. Contrast injection confirmed placement within the [...] was generated with voice-recognition technology. Errors in decorative greens cutter can occur. Please interpret accordingly and contact a radiologist if there are any questions regarding the report. Signed by: Dr. Carla Thomas M.D. on 03/11/2017 2:37 PM Dictated By: CARLA THOMAS MD E lectronically Signed By: CARLA THOMAS MD on 03/12/17931 Transcribed By: VAN CARD on 03/12/17931 COPY TO: JARET ESPINOSA MD IR CONSULT [place] [address] Patient Name: WESLY HUTCHINSON MR #: [id number] : Age/Sex: 56/F Req #: [id number] Adm Physician: VIKY REAGAN MD Ordered by: LIZ MUÑIZ MD Report #: [id number] Locatio n: MED/SURG2 Room/Bed: [facility] Procedure: [id number] DX/ IR CONSULT Exam Date: Exam Time: REPORT STAT US: Signed Nephrostomy catheter evaluation and subsequent exchange, 03/11/2017 Pre-Procedure Diagnosis: Cervical cancer status post radiation therapy with right ureteral stenosis. Post-procedure Diagnosis:Cervical cancer status p ost radiation therapy with right ureteral stenosis Plastics Tooling Engineer: Pratibha Thomas It Assistant: None Sedation: Moderate sedation was provided with [...] None Blood administered: None Complications: None Implants/Grafts: 10-South African right nephrostomy Specimen: None Procedure: Informed consent was obtained and the patient positioned prone in the fluoroscopy suite. A timeout was performed. The indwelling right nephrostomy was prepped and draped in standard fashion. Diagnostic antegrade nephrostogram was performed given the long indwelling time of the previously placed for ostomy. See findings below. Attempts to remove the indwelling 8- South African nephrostomy over a Bentson and Glidewire were unsuccessful due to heavy encrustation. The catheter was subsequently severed and removed through an 11- South African peel-away sheath. A Bentson wire was advanced through the peel-away sheath and exchanged for a 10-South African nephrostomy. Contrast injection confirmed placement within the [...] was generated with voice-recognition technology. Errors in decorative greens cutter can occur. Please interpret accordingly and contact a radiologist if there are any questions regarding the report. Signed by: Dr. Carla Thomas M.D. on 03/11/2017 2:37 PM Dictated By: CARLA THOMAS MD E lectronically Signed By: CARLA THOMAS MD on 03/12/17931 Transcribed By: VAN CARD on 03/12/17931 COPY TO: LIZ MUÑIZ MD CT ABDOMEN/PELVIS [place] [address] Patient Name: WESLY HUTCHINSON MR #: [id number] : 1960 Age/Sex: 56/F Req #: [id number] Adm Physician: Ordered by: LIZ MUÑIZ MD Report #: [id number] Location: ER Room/Bed: Procedure: [id number] CT/CT ABDOMEN/PELVIS WO Exam Da te: 03/11/17 [...] TO: LIZ MUÑIZ MD SPECIAL PROCEDURE IN MARKETING TRAFFIC COORDINATOR [place] [address] Patient Name: WESLY HUTCHINSON MR #: [id number] : Age/Sex: 56/F Req #: [id number] Adm Physician: CARLIE PRECIADO MD Ordered by: JARET ESPINOSA MD Report #: [id number] Location: ED/SURG3 Room/Bed: [facility] Procedure: [id number] IR/SPEC IAL PROCEDURE IN MARKETING TRAFFIC COORDINATOR Exam Date: Exam Time: REPORT STATUS: Signed Date and Time: 12/31/2016 Procedure: Right per cutaneous nephrostomy catheter exchange chinchilla machine operator: Dr. Marlin Mercedes re-operative diagnosis: [...] Isovue-300 Estimated blood loss: Minimal Specimens: 10 South African nephrostomy catheter, discarded Implants: New 10 South African nephrostomy c atheter DISCUSSION: Informed consent for [...] over the wire and a new 10 South African locking loop percutaneous the prostate was a [...] of a right percutaneous nephrostomy catheter (10 South African locking loop) under fluoroscopic guidance. The patient should return to interventional r adiology in 8 weeks for routine catheter exchange. Signed by: Dr. Osiel Sullivan M.D. on 01/02/2017 7:09 AM Dictated By: OSIEL SULLIVAN MD Electro nically Signed By: OSIEL SULLIVAN MD on 01/02/17708 Transcribed By: DEYANIRA on 01/02/17708 COPY TO: JARET ESPINOSA MD CHEST XRAY LINE PLACEMENT [place] [address] Patient Name: WESLY HUTCHINSON MR #: [id number] : Age/Sex: 56/F Req #: [id number] Adm Physician: CARLIE PRECIADO MD Ordered by: NAMITA EDMONDS MD Report #: [id number] Location: MED/SURG3 Room/Bed: [facility] Procedure: [id number] DX/CH EST XRAY LINE PLACEMENT Exam Date: [...] CARLA THOMAS MD on 12/29/161457 Transcribed By: USSHANT on 12/29/161457 COPY TO: NAMITA EDMONDS MD IR CONSULT [place] [address] Patient Name: WESLY HUTCHINSON MR #: [id number] : 1960 Age/Sex: 56/F Req #: [id number] Adm Physician: CARLIE PRECIADO MD Ordered by: JARET ESPINOSA MD Report #: [id number] Location: M ED/SURG2 Room/Bed: 210 Procedure: [id number] DX/IR C ONSULT Exam Date: Exam Time: REPORT STATUS: Signed Date and Time: 11/05/2016 Procedure: Replacement of right percutan eous nephrostomy catheter chinchilla machine operator: Dr. Sullivan Assistants: None Pre-operative [...] lo ss: Minimal Specimens: None Implants: 10 South African locking loop nephrostomy farhat inage catheter Blood [...] anesthesia. Then under fluoroscopic guidance, a [address] was gently advanced through the existing percutaneous nephrostomy tract an d into the renal pelvis, with appropriate positioning confirmed by injection o f dilute contrast material. A 0.0 3 5-in. Amplatz wire was then advanced through the catheter and into the proximal right ureter. The catheter was ji mike and the tract was dilated. Then a 10 South African locking loop nephrostomy [address] ter was advanced [...] of a right percutaneous nephrostomy catheter (10 South African locking loop) through the existing subcutaneous tract. The patient should return to interventional r adiology for routine catheter exchange in 3 months. Signed by: Dr. Osiel Sullivan M.D. on 11/12/2016 10:12 AM Dictated By: OSIEL SULLIVAN MD Electr onically Signed By: OSIEL SULLIVAN MD on 11/12/16 1012 Transcribed By: DEYANIRA meehan 11/12/16 1012 COPY TO: JARET ESPINOSA MD SPECIAL PROCEDURE IN MARKETING TRAFFIC COORDINATOR [place] [address] Patient Name: WESLY HUTCHINSON MR #: [id number] : 1960 Age/Sex: 56/F Req #: [id number] Adm Physician: CARLIE NIX MD Ordered by: JARET ESPINOSA MD Report #: [id number] Location: [facility]/SURG Room/Bed: [facility] Procedure: [id number] IR/SPEC IAL PROCEDURE IN MARKETING TRAFFIC COORDINATOR Exam Date: Exam Time: REPORT STATUS: Signed Date and Time: 11/05/2016 Procedure: Replacement of right percutaneous nephrostomy catheter chinchilla machine operator: Dr. Sullivan Assistants: None Pre-operative [...] blood loss: Minimal Specimens: None Implants: 10 South African locking l oop nephrostomy drainage catheter Blood [...] anesthesia. Then under fluoroscopic guidance, a 5 South African angled catheter was gently advanced through the existing percutaneous n ephrostomy tract and into the renal pelvis, with appropriate positioning confi rmed by injection of dilute contrast material. A 0.0 3 5-in. Amplatz wire was then advanced through the catheter and into the proximal right ureter. The catheter was removed and the tract was dilated. Then a 10 South African locking loop nephrostomy catheter was advanced over [...] of a right percutaneous nephrostomy catheter (10 South African lockin g loop) through the existing subcutaneous tract. The patient should return to interventional radiology for routine catheter exchange in 3 months. Si gned by: Dr. Osiel Sullivan M.D. on 11/12/2016 10:12 AM Dictated By: OSIEL SULLIVAN MD 1012 Transc ribed By: DEYANIRA on 11/12/16 1012 COPY TO: JARET ESPINOSA MD ABDOMEN-[facility] ([place] [address] Patient Name: WESLY HUTCHINSON MR #: [id number] : 1960 Age/Sex: 56/F Req #: [id number] Adm Physician: Ordered by: ARIA ROCHE MD Report #: [id number] Location: ER Room/Bed: Procedure: [id number] DX/ABDOMEN-1VIEW (KUB) Exam D ate: 11/03/16 Exam [...] igned By: NAMITA LAWRENCE MD on 11/03/16 7072 Transcribed By: SUSHANT on 7 1459 COPY TO: ARIA ROCHE MD
--- NOTE | 2020-01-03 05:57 | Emergency Department Note ---
History of Present Illnes History of Present Illness Chief Complaint: Genitourinary History of Present Illness This is a 59 year old female arrives to the ED after dislodged Maravilla catheter. . Chief Complaint Comment 59 y/o female pt [id number] presents to ED with report of "popped catheter." Pt also reports suprapubic pain; 18 gauge indwelling maravilla catheter in place; pts v/s/s; pt to ED rm #10 on arrival; er md to pts bedside for initial eval; Dr. Yaron Darby notified of pts status; order received for urine culture Onset (how long ago): hour(s) Radiation: Reports non-radiation Severity: mild Duration (how long): hour(s) Timing of current episode: constant Progression: unchanged Chronicity: new Relieving factors: none Past Medical/Family History Physician Review I have reviewed the patient's past medical and family history. Any updates have been documented here. Past Medical History Recent Fever: No Clinical Suspicion of Infectio: No New/Unexplained Change in Ment: No Past Medical History: UTI's, Anxiety, Depression Other Medical History: Cervical Cancer Healed, Nephrostomy tubes,Long standing Maravilla indwelling catheter, Ureteral stents, HTN Past Surgical History: None Other Surgery: Kidney/Ureteral Stent Placements/Replacements multiple Social History Smoking Cessation: Never Smoker Counseling Performed: No Alcohol Use: None Any Illegal Drug Use: No Physically hurt or threatened: No Other Last Tetanus: OOD Any Pre-Existing Lines (PICC,: No Review of Systems Review of Systems Constitutional: Reports no symptoms EENTM: Reports no symptoms Cardiovascular: Reports no symptoms Respiratory: Reports no symptoms Gastrointestinal: Reports no symptoms Genitourinary: Reports no symptoms Musculoskeletal: Reports no symptoms Integumentary: Reports no symptoms Neurological: Reports no symptoms Psychological: Reports no symptoms Endocrine: Reports no symptoms Hematological/Lymphatic: Reports no symptoms Physical Exam Related Data Allergies: Coded Allergies: Penicillins (Verified Allergy, Unknown, 10/31/19) Triage Vital Signs Vital Signs Date Time Temp Pulse Resp B/P (MAP) Pulse Ox O2 Delivery O2 Flow Rate FiO2 01/03/20 04:31 98.4 72 16 131/78 99 Room Air Vital signs reviewed: Yes Physical Exam CONSTITUTIONAL Constitutional: Present well-developed, Present well-nourished HENT HENT: Present normocephalic, Present atraumatic, Present oropharynx clear/moist, Present nose normal HENT L/R: Present left ext ear normal, Present right ext ear normal EYES Eyes: Reports PERRL, Reports conjunctivae normal NECK Neck: Present ROM normal PULMONARY Pulmonary: Present effort normal, Present breath sounds normal CARDIOVASCULAR Cardiovascular: Present regular rhythm, Present heart sounds normal, Present capillary refill normal, Present normal rate GASTROINTESTINAL Abdominal: Present soft, Present nontender, Present bowel sounds normal GENITOURINARY Genitourinary: Present exam deferred SKIN Skin: Present warm, Present dry MUSCULOSKELETAL Musculoskeletal: Present ROM normal NEUROLOGICAL Neurological: Present alert, Present oriented x 3, Present no gross motor or sensory deficits PSYCHOLOGICAL Psychological: Present mood/affect normal, Present judgement normal Results Laboratory Lab results reviewed: Yes Imaging Imaging results reviewed: Yes Assessment & Plan Medical Decision Making MDM 59-year-old female arrived to the ED after dislodged Maravilla catheter. Catheter placed, lab work reviewed. Discussed with Dr. Darby. Patient stable for discharge. Assessment & Plan Final Impression: (1) Malfunction of Maravilla catheter Depart Disposition: HOME, SELF-CARE Last Vital Signs Date Time Temp Pulse Resp B/P (MAP) Pulse Ox O2 Delivery O2 Flow Rate FiO2 01/03/20 04:31 98.4 72 16 131/78 99 Room Air Home Meds Reported Medications Acetaminophen (ACETAMINOPHEN) 325 Mg Tablet, 325 MG PO Q6H PRN for Mild Pain (1- 3) or Fever>100.8 for 5 Days, TAB 12/09/19 Metoprolol Tartrate (LOPRESSOR) 25 Mg Tab, 50 MG PO BID, #60 TAB 1 Refill 06/11/19 Buspirone Hcl (BUSPIRONE HCL) 10 Mg Tablet, 10 MG PO BID PRN for ANXIETY 07/30/18 LUZ MARINA GARCIA, Jan 03, 2020 05:57
[2020-01-03 06:02] LABS: BILIRUBIN,URINE SMALL (NEGATIVE); CLARITY,URINE CLOUDY (CLEAR); COLOR,URINE RED (YELLOW); KETONES,URINE NEGATIVE (NEGATIVE); LEUKOCYTE ESTERASE ,URINE SMALL (NEGATIVE); NITRITE,URINE NEGATIVE (NEGATIVE); PROTEIN,URINE DIPSTICK >=300 (NEGATIVE); URINE UROBILINOGEN 0.2 mg/dL (0.2 - 1)
[2020-01-03 06:21] LABS: BACTERIA,URINE MODERATE /HPF; EPITHELIAL CELLS,URINE FEW /LPF; RBC,URINE >50 /HPF (0-5)
== END 2020-01-03 06:15 | disposition home or self-care (01) ==
LOC: ER 03:55
DX: T83.091A Other mechanical complication of indwelling urethral catheter, initial encounter (principal); F41.9 Anxiety disorder, unspecified; F32.9 Major depressive disorder, single episode, unspecified
CPT/HCPCS: 51700; 81001; 87086; 87186; 99283

== ENCOUNTER → 2020-01-13 | Outpatient (CLI) | payer BC ==
[~2020-01-13] MED LIST changes: +FENTANYL CITRATE/PF 100MCG/2 ML INJ ONE; +IOPAMIDOL 300MG/ML 100 ML INFUS..BTL IV ONE; +LIDOCAINE HCL 1% LOCAL INJ 20 ML VIAL ONE; +MIDAZOLAM HCL 2 MG/2 ML VIAL ONE; +SODIUM CHLORIDE 0.9% 250ML 250 ML ONE
--- NOTE | 2020-01-13 12:05 | Diagnostic Imaging Report ---
Procedure: Right percutaneous nephrostomy catheter exchange. History: Routine maintenance. Casino Investigator: Gutierrez Ballard M.D. Can Maker: [email or web address] Modality: Fluoroscopy. DOSE REDUCTION: The examination was performed according to departmental dose-optimization program. Fluoro time: 3.5 minutes. Radiation dose: 41.1 mGy air Kerma. Sedation: Versed 1 mg and fentanyl 50 mcg were given intravenously for conscious sedation by the RN. Vital signs were monitored throughout the procedure by a dedicated RN under direct supervision of Dr. Ballard, and remained stable. Physician intra-service sedation time was 15 minutes. Anesthesia: Lidocaine local infiltration Medicines: Not applicable Contrast medium: Isovue 300, 15 cc. Estimated blood loss: < 5 cc. Technique: A discussion of the risks, benefits, and alternatives was carried out with the patient. A written informed consent was obtained. The patient expressed understanding and agreed to proceed. A universal timeout was performed prior to starting the procedure. The procedure room personnel used personal protective equipment. The operators used sterile gowns and gloves. The patient was laid prone on the procedure table. The right percutaneous nephrostomy site was prepped with chlorhexidine gluconate and draped in sterile fashion. A landscape architecture teacher radiograph was performed showing the catheter to be in the expected location. Contrast injection through the catheter confirmed the catheter tip location in the collecting system. After local anesthetic infiltration, the retention suture was removed. The catheter was cut and withdrawn over a wire. This required use of a peel-away sheath as the catheter was encrusted. It was replaced with an identical catheter. The catheter position was confirmed with contrast injection. The catheter was secured to skin with nonabsorbable suture. The catheter was connected to a gravity drainage bag. An aseptic dressing was applied. The patient was transferred to the recovery area and discharged from the department in stable condition. Complications: None immediate. Findings: As above. Impression: Successful fluoroscopic guided 12 Lao right nephrostomy catheter exchange as described above. Further management dictated by the clinical scenario. The nephrostomy catheter should be exchanged at the latest in three months. Thank you for the opportunity to assist in the care of your patient. Signed by: Gutierrez Ballard MD on 01/13/2020 12:01 PM
== END ==
LOC: DX 09:11
PROVIDERS: ATTEND Urology
DX: N13.5 Crossing vessel and stricture of ureter without hydronephrosis (principal)
CPT/HCPCS: 50435; C1769; J2001; J2250; J3010; J7050; Q9967; 50387; 99152; 99153

== ENCOUNTER 2020-01-22 21:17 | Observation (INO) | payer BC ==
[~2020-01-22] VITALS: Ht 152.4 cm; Wt 85.3 kg
[~2020-01-22 21:17] MED LIST changes: -FENTANYL CITRATE/PF 100MCG/2 ML INJ ONE; -IOPAMIDOL 300MG/ML 100 ML INFUS..BTL IV ONE; -LIDOCAINE HCL 1% LOCAL INJ 20 ML VIAL ONE; -MIDAZOLAM HCL 2 MG/2 ML VIAL ONE; -SODIUM CHLORIDE 0.9% 250ML 250 ML ONE
[2020-01-22] MEDS ORDERED: MEROPENEM 1GM 100 ML IV STA (21:40)
[2020-01-22] MEDS ORDERED: SODIUM CHLORIDE 0.9% 1000ML 1,000 ML IV STA (21:40)
[2020-01-22] MEDS ORDERED: ACETAMINOPHEN 325 MG TAB PO PRN (21:45)
[2020-01-22] MEDS ORDERED: ONDANSETRON HCL INJ 2MG/ML 2ML 2 MG/ML VIAL IV STA (21:52)
[2020-01-22] MEDS ORDERED: MORPHINE SULFATE INJ 4 MG/ML INJ 1ML IV STA (21:52)
[2020-01-22 22:02] LABS: BASOPHILS # (AUTO) 0.1 (0.0-0.1); BASOPHILS % 0.4 % (0.0-1.0); EOSINOPHILS % 0.1 % (0.0-6.0); HEMOGLOBIN 11.5 g/dL (12.0-16.0); LYMPHOCYTES # (AUTO) 1.3 (1.0-3.2); LYMPHOCYTES % 9.2 % (18.0-39.1); MEAN CORPUSCULAR HGB CONC 31.1 g/dL (31-35); MEAN CORPUSCULAR VOLUME 83.5 fL (81-99); MONOCYTES # (AUTO) 0.6 (0.2-0.8); MONOCYTES % 4.6 % (4.4-11.3); NEUTROPHILS # (AUTO) 11.9 (2.1-6.9); NEUTROPHILS % 85.2 % (38.7-80.0); PLATELET COUNT 391 x10e3/uL (140-360); RED BLOOD COUNT 4.43 x10e6/uL (3.6-5.1); RED CELL DISTRIBUTION WIDTH 14.8 % (11.7-14.4)
[2020-01-22 22:14] LABS: CLARITY,URINE CLOUDY (CLEAR); COLOR,URINE YELLOW (YELLOW); KETONES,URINE NEGATIVE (NEGATIVE); LEUKOCYTE ESTERASE ,URINE 2+ (NEGATIVE); NITRITE,URINE NEGATIVE (NEGATIVE); PROTEIN,URINE DIPSTICK >=300 (NEGATIVE); URINE UROBILINOGEN 0.2 mg/dL (0.2 - 1)
[2020-01-22 22:23] LABS: ALANINE AMINOTRANSFERASE 19 IU/L (0-55); ALBUMIN 3.7 g/dL (3.5-5.0); ALBUMIN/GLOBULIN RATIO 0.6 (0.8-2.0); ALKALINE PHOSPHATASE 129 IU/L (40-150); ANION GAP 17.9 mmol/L (8-16); BLOOD UREA NITROGEN 21 mg/dL (7-26); BUN/CREATININE RATIO 15 (6-25); CALCIUM 9.6 mg/dL (8.4-10.2); CARBON DIOXIDE 23 mmol/L (22-29); CHLORIDE 102 mmol/L (98-107); CREATINE KINASE 26 IU/L (29-168); CREATININE, SERUM 1.43 mg/dL (0.57-1.11); EST GLOMERULAR FILTRATION RATE 38 ML/MIN (60-); GLUCOSE 196 mg/dL (74-118); POTASSIUM 3.9 mmol/L (3.5-5.1); SODIUM 139 mmol/L (136-145)
[2020-01-22 22:28] LABS: AMORPHOUS SEDIMENT,URINE MANY (FEW); BACTERIA,URINE MANY /HPF; EPITHELIAL CELLS,URINE FEW /LPF; MUCUS,URINE MANY (RARE)
[2020-01-23] MEDS ORDERED: SODIUM CHLORIDE 0.9% 50ML 50 ML ONE (06:42)
[2020-01-23] MEDS ORDERED: IOPAMIDOL 370 MG/ML 200 ML INFUS..BTL INJ ONE (06:42)
[2020-01-23] MEDS ORDERED: MORPHINE SULFATE INJ 4 MG/ML INJ 1ML IV PRN (09:00)
[2020-01-23] MEDS ORDERED: ONDANSETRON HCL INJ 2MG/ML 2ML 2 MG/ML VIAL IV PRN (09:00)
[2020-01-23] MEDS ORDERED: LEVOFLOXACIN250 MG PO (11:41)
== END 2020-01-23 12:20 | disposition home or self-care (01) ==
LOC: ER 21:29 → ERHOLD 01-23 00:08 → INTOOBSV 01-23 00:08
PROVIDERS: ADMIT Internal Medicine; ATTEND Internal Medicine
DX: N99.521 Infection of incontinent external stoma of urinary tract (principal); A41.9 Sepsis, unspecified organism; N99.522 Malfunction of incontinent external stoma of urinary tract; R65.20 Severe sepsis without septic shock; N13.6 Pyonephrosis; I12.9 Hypertensive chronic kidney disease with stage 1 through stage 4 chronic kidney disease, or unspecified chronic kidney disease; N18.30 Chronic kidney disease, stage 3 unspecified; Z88.0 Allergy status to penicillin; Z85.41 Personal history of malignant neoplasm of cervix uteri; D64.9 Anemia, unspecified; E66.9 Obesity, unspecified; Z68.36 Body mass index [BMI] 36.0-36.9, adult; Z20.828 Contact with and (suspected) exposure to other viral communicable diseases
CPT/HCPCS: 36415; 74177; 74470; 80053; 81001; 82550; 82553; 83605; 84484; 85025; 87040; 87086; 87186; 99284; G0378; J2185; J2270; J2405; J7030; Q9967; U0002

== ENCOUNTER 2020-02-06 17:06 | Emergency (ER) | payer BC ==
[~2020-02-06] VITALS: Ht 152.4 cm; Wt 85.3 kg
[~2020-02-06 17:06] MED LIST changes: +LEVOFLOXACIN250 MG PO
[2020-02-07 02:04] LABS: CLARITY,URINE CLOUDY (CLEAR); COLOR,URINE AMBER (YELLOW); KETONES,URINE NEGATIVE (NEGATIVE); LEUKOCYTE ESTERASE ,URINE SMALL (NEGATIVE); NITRITE,URINE POSITIVE (NEGATIVE); PROTEIN,URINE DIPSTICK >=300 (NEGATIVE); URINE UROBILINOGEN 0.2 mg/dL (0.2 - 1)
[2020-02-07 02:11] LABS: BACTERIA,URINE MODERATE /HPF; EPITHELIAL CELLS,URINE FEW /LPF; RBC,URINE >50 /HPF (0-5)
== END 2020-02-07 01:30 | disposition home or self-care (01) ==
LOC: ER 17:31
DX: Z46.6 Encounter for fitting and adjustment of urinary device (principal); N13.9 Obstructive and reflux uropathy, unspecified; I10 Essential (primary) hypertension; F41.9 Anxiety disorder, unspecified; Z87.440 Personal history of urinary (tract) infections
CPT/HCPCS: 51700; 81001; 87086; 87186; 99283

== ENCOUNTER 2020-03-06 23:50 | Emergency (ER) | payer BC ==
[~2020-03-06] VITALS: Ht 152.4 cm; Wt 85.3 kg
== END 2020-03-07 02:44 | disposition home or self-care (01) ==
LOC: ER 03-07 00:10
DX: Z46.6 Encounter for fitting and adjustment of urinary device (principal); I10 Essential (primary) hypertension; F41.9 Anxiety disorder, unspecified; Z85.41 Personal history of malignant neoplasm of cervix uteri
CPT/HCPCS: 51700; 99282

== ENCOUNTER → 2020-04-17 | Outpatient (CLI) | payer OTHER ==
[~2020-04-17] MED LIST changes: +IOPAMIDOL 300MG/ML 100 ML INFUS..BTL IV ONE; +LIDOCAINE HCL 1% LOCAL INJ 20 ML VIAL ONE; +SODIUM CHLORIDE 0.9% 250ML 250 ML ONE
== END ==
LOC: DX 12:39
PROVIDERS: ATTEND Urology
DX: Z43.6 Encounter for attention to other artificial openings of urinary tract (principal)
CPT/HCPCS: 50387; J2001; J7050; Q9967

== ENCOUNTER → 2020-04-23 | Day surgery (SDC) | payer BC ==
[2020-04-20 10:15] LABS: BASOPHILS # (AUTO) 0.1 (0.0-0.1); BASOPHILS % 0.8 % (0.0-1.0); EOSINOPHILS # (AUTO) 0.1 (0.0-0.4); EOSINOPHILS % 2.1 % (0.0-6.0); HEMATOCRIT 35.2 % (34.2-44.1); HEMOGLOBIN 11.1 g/dL (12.0-16.0); LYMPHOCYTES # (AUTO) 2.1 (1.0-3.2); LYMPHOCYTES % 33.9 % (18.0-39.1); MEAN CORPUSCULAR HEMOGLOBIN 26.3 pg (28-32); MEAN CORPUSCULAR HGB CONC 31.5 g/dL (31-35); MEAN CORPUSCULAR VOLUME 83.4 fL (81-99); MONOCYTES # (AUTO) 0.3 (0.2-0.8); MONOCYTES % 4.9 % (4.4-11.3); NEUTROPHILS # (AUTO) 3.7 (2.1-6.9); PLATELET COUNT 266 x10e3/uL (140-360); RED BLOOD COUNT 4.22 x10e6/uL (3.6-5.1); RED CELL DISTRIBUTION WIDTH 14.6 % (11.7-14.4)
[2020-04-20 10:25] LABS: ANION GAP 11.9 mmol/L (8-16); BLOOD UREA NITROGEN 15 mg/dL (7-26); BUN/CREATININE RATIO 18 (6-25); CALCIUM 8.9 mg/dL (8.4-10.2); CARBON DIOXIDE 25 mmol/L (22-29); CHLORIDE 106 mmol/L (98-107); CREATININE, SERUM 0.83 mg/dL (0.57-1.11); EST GLOMERULAR FILTRATION RATE > 60 ML/MIN (60-); GLUCOSE 126 mg/dL (74-118); POTASSIUM 3.9 mmol/L (3.5-5.1); SODIUM 139 mmol/L (136-145)
[~2020-04-23] MED LIST changes: +ACETAMINOPHEN/CODEINE 300MG - 30MG TAB ONE; +B&O 60MG R/S 60 MG SUPP PR ONE; +DEXAMETHASONE SOD PHOS INJ 4 MG/ML VIAL ONE; +FENTANYL CITRATE/PF 100MCG/2 ML INJ ONE; +GENTAMICIN 80MG/NS 100 ML 100 ML IV ONE; -IOPAMIDOL 300MG/ML 100 ML INFUS..BTL IV ONE; +IOPAMIDOL 300MG/ML 50ML INFUS..BTL IV ONE; +LEVOFLOXACIN 500MG/D5W 100ML 100 ML IV ONE; -LIDOCAINE HCL 1% LOCAL INJ 20 ML VIAL ONE; +LIDOCAINE HCL 2% LOCAL INJ 5 ML SDV VIAL INJ ONE; +MIDAZOLAM HCL 2 MG/2 ML VIAL ONE; +ONDANSETRON HCL INJ 2MG/ML 2ML 2 MG/ML VIAL ONE; +PROPOFOL IV EMULSION 10 MG/ML 20 ML VIAL ONE; +SEVOFLURANE INHAL SOLN 250 ML PEN BTL ONE; -SODIUM CHLORIDE 0.9% 250ML 250 ML ONE
[2020-04-23 08:50] VITALS: BP 136/76
== END | disposition home or self-care (01) ==
LOC: OR 05:49
PROVIDERS: ATTEND Urology
DX: N13.1 Hydronephrosis with ureteral stricture, not elsewhere classified (principal); Z46.6 Encounter for fitting and adjustment of urinary device; R33.9 Retention of urine, unspecified; N32.89 Other specified disorders of bladder; N81.10 Cystocele, unspecified; N81.6 Rectocele; N95.2 Postmenopausal atrophic vaginitis; Z93.6 Other artificial openings of urinary tract status; N31.9 Neuromuscular dysfunction of bladder, unspecified; Z01.810 Encounter for preprocedural cardiovascular examination; Z01.812 Encounter for preprocedural laboratory examination; Z20.822 Contact with and (suspected) exposure to COVID-19; Z92.3 Personal history of irradiation
CPT/HCPCS: 36415; 52332; 52344; 74420; 80048; 85025; 93005; C1758; C1766; C2617; J1100; J1580; J1956; J2001; J2250; J2405; J2704; J3010; Q9967; U0002

== ENCOUNTER 2020-05-26 09:50 | Emergency (ER) | payer OTHER ==
[~2020-05-26] VITALS: Ht 152.4 cm; Wt 85.3 kg
[~2020-05-26 09:50] MED LIST changes: -ACETAMINOPHEN/CODEINE 300MG - 30MG TAB ONE; -B&O 60MG R/S 60 MG SUPP PR ONE; -DEXAMETHASONE SOD PHOS INJ 4 MG/ML VIAL ONE; -FENTANYL CITRATE/PF 100MCG/2 ML INJ ONE; -GENTAMICIN 80MG/NS 100 ML 100 ML IV ONE; -IOPAMIDOL 300MG/ML 50ML INFUS..BTL IV ONE; -LEVOFLOXACIN 500MG/D5W 100ML 100 ML IV ONE; -LIDOCAINE HCL 2% LOCAL INJ 5 ML SDV VIAL INJ ONE; -MIDAZOLAM HCL 2 MG/2 ML VIAL ONE; -ONDANSETRON HCL INJ 2MG/ML 2ML 2 MG/ML VIAL ONE; -PROPOFOL IV EMULSION 10 MG/ML 20 ML VIAL ONE; -SEVOFLURANE INHAL SOLN 250 ML PEN BTL ONE
== END 2020-05-26 11:02 | disposition home or self-care (01) ==
LOC: ER 10:30
DX: Z46.6 Encounter for fitting and adjustment of urinary device (principal); I10 Essential (primary) hypertension; F41.9 Anxiety disorder, unspecified; Z85.41 Personal history of malignant neoplasm of cervix uteri
CPT/HCPCS: 51700; 99282

== ENCOUNTER 2020-05-30 15:50 | Emergency (ER) | payer OTHER ==
[~2020-05-30] VITALS: Ht 152.4 cm; Wt 85.3 kg
[2020-05-30] MEDS ORDERED: KETOROLAC TROMETHAMINE 60 MG/2 ML VIAL IM ONE (18:30)
[2020-05-30 19:28] LABS: CLARITY,URINE HAZY (CLEAR); COLOR,URINE YELLOW (YELLOW); KETONES,URINE NEGATIVE (NEGATIVE); LEUKOCYTE ESTERASE ,URINE MODERATE (NEGATIVE); NITRITE,URINE POSITIVE (NEGATIVE); PROTEIN,URINE DIPSTICK >=300 (NEGATIVE); URINE UROBILINOGEN 0.2 mg/dL (0.2 - 1)
[2020-05-30 19:41] LABS: BACTERIA,URINE FEW /HPF; EPITHELIAL CELLS,URINE RARE /LPF; RBC,URINE 21-50 /HPF (0-5); WBC,URINE (MAN) >50 /HPF (0-5)
[2020-05-30 21:08] VITALS: BP 149/87
== END 2020-05-30 20:30 | disposition home or self-care (01) ==
LOC: ER 19:47
DX: R10.32 Left lower quadrant pain (principal); N39.0 Urinary tract infection, site not specified; R39.89 Other symptoms and signs involving the genitourinary system; K80.20 Calculus of gallbladder without cholecystitis without obstruction
CPT/HCPCS: 74176; 81001; 87086; 99283; J1885

== ENCOUNTER → 2020-06-18 | Outpatient (CLI) | payer OTHER ==
[~2020-06-18] MED LIST changes: +IOPAMIDOL 300MG/ML 100 ML INFUS..BTL IV ONE; +LIDOCAINE HCL 1% LOCAL INJ 20 ML VIAL ONE; +SODIUM CHLORIDE 0.9% 250ML 250 ML ONE
== END ==
LOC: DX 08:12
PROVIDERS: ATTEND Urology
DX: Z43.6 Encounter for attention to other artificial openings of urinary tract (principal)
CPT/HCPCS: 50387; C1769; J2001; J7050; Q9967

== ENCOUNTER 2020-06-22 11:19 | Emergency (ER) | payer BC, OTHER ==
[~2020-06-22] VITALS: Ht 152.4 cm; Wt 85.3 kg
[~2020-06-22 11:19] MED LIST changes: -IOPAMIDOL 300MG/ML 100 ML INFUS..BTL IV ONE; -LIDOCAINE HCL 1% LOCAL INJ 20 ML VIAL ONE; -SODIUM CHLORIDE 0.9% 250ML 250 ML ONE
[2020-06-22 12:30] LABS: BASOPHILS % 0.3 % (0.0-1.0); EOSINOPHILS # (AUTO) 0.1 (0.0-0.4); EOSINOPHILS % 1.1 % (0.0-6.0); HEMATOCRIT 36.6 % (34.2-44.1); HEMOGLOBIN 11.5 g/dL (12.0-16.0); LYMPHOCYTES # (AUTO) 1.8 (1.0-3.2); MEAN CORPUSCULAR HEMOGLOBIN 26.6 pg (28-32); MEAN CORPUSCULAR HGB CONC 31.4 g/dL (31-35); MEAN CORPUSCULAR VOLUME 84.5 fL (81-99); MONOCYTES # (AUTO) 0.6 (0.2-0.8); MONOCYTES % 6.1 % (4.4-11.3); NEUTROPHILS # (AUTO) 6.7 (2.1-6.9); NEUTROPHILS % 72.1 % (38.7-80.0); PLATELET COUNT 275 x10e3/uL (140-360); RED BLOOD COUNT 4.33 x10e6/uL (3.6-5.1); RED CELL DISTRIBUTION WIDTH 15.4 % (11.7-14.4)
[2020-06-22 12:48] LABS: CALCIUM 9.6 mg/dL (8.4-10.2)
[2020-06-22 14:14] LABS: CLARITY,URINE CLOUDY (CLEAR); COLOR,URINE YELLOW (YELLOW); LEUKOCYTE ESTERASE ,URINE 2+ (NEGATIVE); NITRITE,URINE POSITIVE (NEGATIVE); PROTEIN,URINE DIPSTICK >=300 (NEGATIVE)
[2020-06-22 14:15] LABS: KETONES,URINE TRACE (NEGATIVE); URINE UROBILINOGEN 1 mg/dL (0.2 - 1)
[2020-06-22] MEDS ORDERED: CEPHALEXIN500 MG PO (14:28)
[2020-06-22 14:40] LABS: BACTERIA,URINE MANY /HPF; EPITHELIAL CELLS,URINE FEW /LPF; RBC,URINE >50 /HPF (0-5); WBC,URINE (MAN) >50 /HPF (0-5)
== END 2020-06-22 14:42 | disposition home or self-care (01) ==
LOC: ER 11:42
DX: N39.0 Urinary tract infection, site not specified (principal); B95.2 Enterococcus as the cause of diseases classified elsewhere; R53.83 Other fatigue; I10 Essential (primary) hypertension; F41.9 Anxiety disorder, unspecified; F32.9 Major depressive disorder, single episode, unspecified; Z85.41 Personal history of malignant neoplasm of cervix uteri
CPT/HCPCS: 36415; 51700; 80048; 81001; 85025; 87086; 87186; 99283

== ENCOUNTER 2020-07-29 13:19 | Emergency (ER) | payer OTHER ==
[~2020-07-29] VITALS: Ht 152.4 cm; Wt 85.3 kg
[~2020-07-29 13:19] MED LIST changes: +CEPHALEXIN500 MG PO
== END 2020-07-29 15:36 | disposition home or self-care (01) ==
LOC: ER 14:10
DX: Z46.6 Encounter for fitting and adjustment of urinary device (principal); I10 Essential (primary) hypertension; F41.9 Anxiety disorder, unspecified; Z85.41 Personal history of malignant neoplasm of cervix uteri
CPT/HCPCS: 51700; 99283

== ENCOUNTER 2020-08-08 05:33 | Inpatient (IN) | payer OTHER ==
[~2020-08-08] VITALS: Ht 152.4 cm; Wt 84.4 kg
[2020-08-08] MEDS ORDERED: FENTANYL CITRATE/PF 100MCG/2 ML INJ IV PRN (06:15)
[2020-08-08] MEDS ORDERED: CEFTRIAXONE 1 GM VIAL IV ONE (06:30)
[2020-08-08 06:47] LABS: BASOPHILS # (AUTO) 0.1 (0.0-0.1); BASOPHILS % 0.4 % (0.0-1.0); EOSINOPHILS # (AUTO) 0.1 (0.0-0.4); EOSINOPHILS % 0.7 % (0.0-6.0); HEMATOCRIT 36.1 % (34.2-44.1); HEMOGLOBIN 11.2 g/dL (12.0-16.0); LYMPHOCYTES # (AUTO) 2.1 (1.0-3.2); LYMPHOCYTES % 15.1 % (18.0-39.1); MEAN CORPUSCULAR HEMOGLOBIN 26.2 pg (28-32); MEAN CORPUSCULAR VOLUME 84.5 fL (81-99); MONOCYTES # (AUTO) 0.7 (0.2-0.8); MONOCYTES % 5.2 % (4.4-11.3); NEUTROPHILS # (AUTO) 10.7 (2.1-6.9); NEUTROPHILS % 78.1 % (38.7-80.0); PLATELET COUNT 274 x10e3/uL (140-360); RED BLOOD COUNT 4.27 x10e6/uL (3.6-5.1); RED CELL DISTRIBUTION WIDTH 14.5 % (11.7-14.4)
[2020-08-08] MEDS ORDERED: CEFTRIAXONE 1 GM in SODIUM CHLORIDE 0.9% 50ML 50 ML IV ONE (07:00)
[2020-08-08 07:08] LABS: ALBUMIN 3.8 g/dL (3.5-5.0); ALBUMIN/GLOBULIN RATIO 0.7 (0.8-2.0); ANION GAP 11.5 mmol/L (8-16); CALCIUM 9.2 mg/dL (8.4-10.2); CREATININE, SERUM 1.25 mg/dL (0.57-1.11); POTASSIUM 3.5 mmol/L (3.5-5.1)
[2020-08-08] MEDS: ONDANSETRON HCL INJ 2MG/ML 2ML 2 MG/ML VIAL IV PRN (07:08)
[2020-08-08 07:09] LABS: CLARITY,URINE CLOUDY (CLEAR); COLOR,URINE YELLOW (YELLOW); LEUKOCYTE ESTERASE ,URINE LARGE (NEGATIVE); NITRITE,URINE NEGATIVE (NEGATIVE)
[2020-08-08 07:10] LABS: KETONES,URINE NEGATIVE (NEGATIVE); PROTEIN,URINE DIPSTICK >=300 (NEGATIVE); URINE UROBILINOGEN 0.2 mg/dL (0.2 - 1)
[2020-08-08] MEDS: PANTOPRAZOLE SOD 40 MG TABEC PO SCH (07:30)
[2020-08-08] MEDS ORDERED: MELATONIN 5 MG TABLET PO PRN (07:30)
[2020-08-08] MEDS ORDERED: ALBUTEROL/IPRATROPIUM 3 ML NEB NEB PRN (07:30)
[2020-08-08] MEDS ORDERED: DOCUSATE SODIUM 100 MG CAP PO PRN (07:30)
[2020-08-08] MEDS ORDERED: POTASSIUM CHLORIDE 20 MEQ TAB CR PO PRN (07:30)
[2020-08-08] MEDS ORDERED: BENZONATATE 100 MG CAP PO PRN (07:30)
[2020-08-08] MEDS ORDERED: DEXTROSE 50% SYRINGE 50 ML IV PRN (07:30)
[2020-08-08] MEDS ORDERED: DIPHENHYDRAMINE HCL 25 MG CAP PO PRN (07:30)
[2020-08-08] MEDS ORDERED: LIDOCAINE 4% PATCH TP PRN (07:30)
[2020-08-08] MEDS ORDERED: HYDRALAZINE HCL 20 MG/ML VIAL IV PRN (07:30)
[2020-08-08] MEDS ORDERED: ACETAMINOPHEN 325 MG TAB PO PRN (07:30)
[2020-08-08 07:32] LABS: WBC,URINE (MAN) 0-5 /HPF (0-5)
[2020-08-08 07:33] LABS: AMORPHOUS SEDIMENT,URINE MODERATE (FEW); BACTERIA,URINE MANY /HPF; EPITHELIAL CELLS,URINE RARE /LPF
[2020-08-08 07:34] LABS: TRIPLE PHOSPHATE CRYSTAL,UR MODERATE (FEW)
[2020-08-08] MEDS: SODIUM CHLORIDE 0.9% 1000ML 1,000 ML IV SCH ×2 (07:38→13:55)
[2020-08-08 08:20] VITALS: BP 151/90
[2020-08-08] MEDS: MORPHINE SULFATE INJ 2 MG/ML SYR IV PRN ×2 (08:46→19:43)
[2020-08-08] MEDS ORDERED: FENTANYL CITRATE/PF 100MCG/2 ML INJ ONE (09:15)
[2020-08-08] MEDS ORDERED: IOPAMIDOL 200 MG/ML 20 ML VIAL IT ONE (09:28)
[2020-08-08] MEDS ORDERED: LIDOCAINE HCL 1% LOCAL INJ 20 ML VIAL ONE (09:28)
[2020-08-08] MEDS ORDERED: SODIUM CHLORIDE 0.9% 250ML 250 ML ONE (09:28)
[2020-08-08] MEDS ORDERED: MIDAZOLAM HCL 2 MG/2 ML VIAL ONE (09:41)
[2020-08-08 11:57] VITALS: BP 119/69
[2020-08-08] MEDS: CEFEPIME 1 GM in SODIUM CHLORIDE 0.9% 50ML 50 ML IV SCH ×2 (13:55→22:17)
[2020-08-08 13:59] VITALS: BP 119/69
[2020-08-08 16:00] VITALS: BP 123/74
[2020-08-08 20:00] VITALS: BP 117/70
[2020-08-08 20:02] VITALS: BP 117/70
[2020-08-09] VITALS (7 sets, daily range): BP systolic 104–142; BP diastolic 63–78
[2020-08-09] MEDS: SODIUM CHLORIDE 0.9% 1000ML 1,000 ML IV SCH ×4 (01:06→23:30)
[2020-08-09] MEDS: HYDROCODONE/APAP 5MG-325MG TAB PO PRN ×4 (01:06→21:54)
[2020-08-09] MEDS: CEFEPIME 1 GM in SODIUM CHLORIDE 0.9% 50ML 50 ML IV SCH ×3 (05:14→22:15)
[2020-08-09 05:37] LABS: BASOPHILS # (AUTO) 0.1 (0.0-0.1); BASOPHILS % 0.6 % (0.0-1.0); EOSINOPHILS # (AUTO) 0.1 (0.0-0.4); EOSINOPHILS % 1.4 % (0.0-6.0); HEMATOCRIT 30.8 % (34.2-44.1); HEMOGLOBIN 9.4 g/dL (12.0-16.0); LYMPHOCYTES # (AUTO) 2.4 (1.0-3.2); LYMPHOCYTES % 27.5 % (18.0-39.1); MEAN CORPUSCULAR HEMOGLOBIN 26.1 pg (28-32); MEAN CORPUSCULAR HGB CONC 30.5 g/dL (31-35); MEAN CORPUSCULAR VOLUME 85.6 fL (81-99); MONOCYTES # (AUTO) 0.7 (0.2-0.8); MONOCYTES % 7.9 % (4.4-11.3); NEUTROPHILS # (AUTO) 5.4 (2.1-6.9); NEUTROPHILS % 62.1 % (38.7-80.0); PLATELET COUNT 232 x10e3/uL (140-360); RED CELL DISTRIBUTION WIDTH 14.6 % (11.7-14.4)
[2020-08-09 06:06] LABS: ANION GAP 13.1 mmol/L (8-16); CALCIUM 8.4 mg/dL (8.4-10.2); CREATININE, SERUM 0.88 mg/dL (0.57-1.11); POTASSIUM 4.1 mmol/L (3.5-5.1)
[2020-08-09] MEDS: PANTOPRAZOLE SOD 40 MG TABEC PO SCH (07:33)
[2020-08-09] MEDS: ONDANSETRON HCL INJ 2MG/ML 2ML 2 MG/ML VIAL IV PRN (23:20)
[2020-08-09] MEDS: MORPHINE SULFATE INJ 2 MG/ML SYR IV PRN (23:28)
[2020-08-10] VITALS (7 sets, daily range): BP systolic 128–151; BP diastolic 70–81
[2020-08-10 05:09] LABS: BASOPHILS # (AUTO) 0.1 (0.0-0.1); BASOPHILS % 0.7 % (0.0-1.0); EOSINOPHILS # (AUTO) 0.2 (0.0-0.4); EOSINOPHILS % 2.2 % (0.0-6.0); HEMATOCRIT 31.5 % (34.2-44.1); HEMOGLOBIN 9.3 g/dL (12.0-16.0); LYMPHOCYTES % 29.2 % (18.0-39.1); MEAN CORPUSCULAR HEMOGLOBIN 26.5 pg (28-32); MEAN CORPUSCULAR HGB CONC 29.5 g/dL (31-35); MONOCYTES # (AUTO) 0.4 (0.2-0.8); MONOCYTES % 6.4 % (4.4-11.3); NEUTROPHILS # (AUTO) 4.2 (2.1-6.9); NEUTROPHILS % 60.9 % (38.7-80.0); PLATELET COUNT 146 x10e3/uL (140-360); RED BLOOD COUNT 3.51 x10e6/uL (3.6-5.1); RED CELL DISTRIBUTION WIDTH 14.6 % (11.7-14.4)
[2020-08-10 05:22] LABS: MEAN CORPUSCULAR VOLUME 89.7 fL (81-99)
[2020-08-10 05:34] LABS: ANION GAP 13.5 mmol/L (8-16); CALCIUM 8.8 mg/dL (8.4-10.2); CREATININE, SERUM 0.8 mg/dL (0.57-1.11); POTASSIUM 3.5 mmol/L (3.5-5.1)
[2020-08-10] MEDS: CEFEPIME 1 GM in SODIUM CHLORIDE 0.9% 50ML 50 ML IV SCH ×3 (06:00→21:47)
[2020-08-10] MEDS: SODIUM CHLORIDE 0.9% 1000ML 1,000 ML IV SCH (08:38)
[2020-08-10] MEDS: PANTOPRAZOLE SOD 40 MG TABEC PO SCH (08:54)
[2020-08-10] MEDS ORDERED: ONDANSETRON HCL 4 MG ORAL DISINTEGRATING TAB PO PRN (15:15)
[2020-08-10] MEDS: BUSPIRONE HCL 5 MG TAB PO PRN (20:41)
[2020-08-11 00:38] VITALS: BP 132/82
[2020-08-11] MEDS: BUSPIRONE HCL 5 MG TAB PO PRN (02:52)
[2020-08-11 05:22] VITALS: BP 112/74
[2020-08-11] MEDS: CEFEPIME 1 GM in SODIUM CHLORIDE 0.9% 50ML 50 ML IV SCH (06:00)
[2020-08-11 07:42] VITALS: BP 134/76
[2020-08-11 08:16] VITALS: BP 134/76
[2020-08-11] MEDS: PANTOPRAZOLE SOD 40 MG TABEC PO SCH (08:30)
[2020-08-11 12:04] VITALS: BP 132/75
[2020-09-02] MEDS ORDERED: BUSPIRONE HCL10 MG PO (14:56)
[2020-10-01] MEDS ORDERED: CEFUROXIME250 MG PO (13:16)
== END 2020-08-11 16:00 | disposition home or self-care (01) | DRG 872 ==
LOC: ER 06:00 → ERHOLD 06:19 → MED/SURG 08:20
PROVIDERS: ADMIT Internal Medicine; ATTEND Internal Medicine
PROC: 0T25X0Z Change Drainage Device in Kidney, External Approach (ICD-10-PCS; principal; 2020-08-08)
DX: A41.9 Sepsis, unspecified organism (principal); N17.9 Acute kidney failure, unspecified; N99.522 Malfunction of incontinent external stoma of urinary tract; G89.4 Chronic pain syndrome; Z85.41 Personal history of malignant neoplasm of cervix uteri; F41.9 Anxiety disorder, unspecified; F32.9 Major depressive disorder, single episode, unspecified; E78.5 Hyperlipidemia, unspecified; E66.9 Obesity, unspecified; Z68.36 Body mass index [BMI] 36.0-36.9, adult; D64.9 Anemia, unspecified; R31.9 Hematuria, unspecified; I12.9 Hypertensive chronic kidney disease with stage 1 through stage 4 chronic kidney disease, or unspecified chronic kidney disease; Z20.822 Contact with and (suspected) exposure to COVID-19; Z96.0 Presence of urogenital implants; N18.30 Chronic kidney disease, stage 3 unspecified
CPT/HCPCS: 36415; 50435; 74470; 80048; 80053; 81001; 83605; 85025; 87040; 87086; 87186; 99152; 99153; 99284; C1729; C1769; J0692; J0696; J2001; J2250; J2270; J2405; J3010; J7030; J7050; Q9967; U0002

== ENCOUNTER → 2020-10-01 | Day surgery (SDC) | payer OTHER ==
[2020-09-28 11:01] LABS: BASOPHILS % 0.6 % (0.0-1.0); EOSINOPHILS # (AUTO) 0.3 (0.0-0.4); EOSINOPHILS % 3.7 % (0.0-6.0); HEMATOCRIT 34.2 % (34.2-44.1); HEMOGLOBIN 10.1 g/dL (12.0-16.0); LYMPHOCYTES # (AUTO) 1.9 (1.0-3.2); LYMPHOCYTES % 26.2 % (18.0-39.1); MEAN CORPUSCULAR HEMOGLOBIN 26.1 pg (28-32); MEAN CORPUSCULAR HGB CONC 29.5 g/dL (31-35); MEAN CORPUSCULAR VOLUME 88.4 fL (81-99); MONOCYTES # (AUTO) 0.5 (0.2-0.8); MONOCYTES % 6.6 % (4.4-11.3); NEUTROPHILS # (AUTO) 4.5 (2.1-6.9); NEUTROPHILS % 62.5 % (38.7-80.0); PLATELET COUNT 227 x10e3/uL (140-360); RED BLOOD COUNT 3.87 x10e6/uL (3.6-5.1); RED CELL DISTRIBUTION WIDTH 17.2 % (11.7-14.4)
[2020-09-28 11:09] LABS: INR 0.94; PROTHROMBIN TIME 12.8 seconds (11.9-14.5)
[2020-09-28 11:10] LABS: PARTIAL THROMBOPLASTIN TIME 30.3 seconds (23.8-35.5)
[2020-09-28 11:18] LABS: ALBUMIN 3.2 g/dL (3.5-5.0); ALBUMIN/GLOBULIN RATIO 0.7 (0.8-2.0); ANION GAP 16.3 mmol/L (8-16); CALCIUM 9.1 mg/dL (8.4-10.2); CREATININE, SERUM 1.03 mg/dL (0.57-1.11); POTASSIUM 4.3 mmol/L (3.5-5.1)
[~2020-10-01] MED LIST changes: +BELLADONNA/OPIUM 30 MG SUPP RC ONE; +CEFUROXIME250 MG PO; +GENTAMICIN 80MG/NS 100 ML 200 ML IV ONE; +IOPAMIDOL 300MG/ML 50ML INFUS..BTL IV ONE; +LIDOCAINE HCL 2% LOCAL INJ 5 ML SDV VIAL INJ ONE; +METOCLOPRAMIDE HCL 10 MG/2ML VIAL ONE; +ONDANSETRON HCL INJ 2MG/ML 2ML 2 MG/ML VIAL ONE; +POVIDONE IODINE 0.05% 0.05 % ML PO ONE; +PROPOFOL IV EMULSION 10 MG/ML 20 ML VIAL ONE; +SEVOFLURANE INHAL SOLN 250 ML PEN BTL ONE
[2020-10-01 15:53] VITALS: BP 120/79
== END | disposition home or self-care (01) ==
LOC: OR 13:09
PROVIDERS: ATTEND Urology
DX: N35.92 Unspecified urethral stricture, female (principal); E78.5 Hyperlipidemia, unspecified; G47.00 Insomnia, unspecified; E66.8 Other obesity; Z85.41 Personal history of malignant neoplasm of cervix uteri; Z86.16 Personal history of COVID-19; N13.30 Unspecified hydronephrosis; R29.2 Abnormal reflex; N39.0 Urinary tract infection, site not specified; N39.41 Urge incontinence; N13.70 Vesicoureteral-reflux, unspecified; Z88.0 Allergy status to penicillin; F41.9 Anxiety disorder, unspecified; D64.9 Anemia, unspecified; Z96.0 Presence of urogenital implants; N81.4 Uterovaginal prolapse, unspecified; N95.2 Postmenopausal atrophic vaginitis; Z68.36 Body mass index [BMI] 36.0-36.9, adult; Z01.810 Encounter for preprocedural cardiovascular examination; Z01.812 Encounter for preprocedural laboratory examination; Z01.818 Encounter for other preprocedural examination
CPT/HCPCS: 36415; 71046; 74420; 80053; 85025; 85610; 85730; 93005; C1769; C2617; J1580; J2001; J2405; J2765

== ENCOUNTER → 2020-10-22 | Outpatient (CLI) | payer OTHER ==
[~2020-10-22] MED LIST changes: -BELLADONNA/OPIUM 30 MG SUPP RC ONE; -GENTAMICIN 80MG/NS 100 ML 200 ML IV ONE; +IOPAMIDOL 300MG/ML 100 ML INFUS..BTL IV ONE; -IOPAMIDOL 300MG/ML 50ML INFUS..BTL IV ONE; +LIDOCAINE HCL 1% LOCAL INJ 20 ML VIAL ONE; -LIDOCAINE HCL 2% LOCAL INJ 5 ML SDV VIAL INJ ONE; -METOCLOPRAMIDE HCL 10 MG/2ML VIAL ONE; -ONDANSETRON HCL INJ 2MG/ML 2ML 2 MG/ML VIAL ONE; -POVIDONE IODINE 0.05% 0.05 % ML PO ONE; -PROPOFOL IV EMULSION 10 MG/ML 20 ML VIAL ONE; -SEVOFLURANE INHAL SOLN 250 ML PEN BTL ONE; +SODIUM CHLORIDE 0.9% 250ML 250 ML ONE
== END ==
LOC: DX 10:29
PROVIDERS: ATTEND Urology
DX: N13.5 Crossing vessel and stricture of ureter without hydronephrosis (principal)
CPT/HCPCS: 50435; C1769; J2001; J7050; Q9967

== ENCOUNTER 2020-11-06 11:58 | Emergency (ER) | payer OTHER ==
[~2020-11-06] VITALS: Ht 152.4 cm; Wt 83.9 kg
[~2020-11-06 11:58] MED LIST changes: -IOPAMIDOL 300MG/ML 100 ML INFUS..BTL IV ONE; -LIDOCAINE HCL 1% LOCAL INJ 20 ML VIAL ONE; -SODIUM CHLORIDE 0.9% 250ML 250 ML ONE
[2020-11-06 13:44] VITALS: BP 127/65
== END 2020-11-06 13:48 | disposition home or self-care (01) ==
LOC: ER 12:47
DX: T83.018A Breakdown (mechanical) of other urinary catheter, initial encounter (principal); I10 Essential (primary) hypertension; F41.9 Anxiety disorder, unspecified; Z85.41 Personal history of malignant neoplasm of cervix uteri; Z85.528 Personal history of other malignant neoplasm of kidney
CPT/HCPCS: 51700; 99282

== ENCOUNTER 2020-11-21 11:52 | Emergency (ER) | payer OTHER ==
[~2020-11-21] VITALS: Ht 152.4 cm; Wt 83.9 kg
[2020-11-21 13:10] LABS: CLARITY,URINE CLOUDY (CLEAR); COLOR,URINE YELLOW (YELLOW); KETONES,URINE NEGATIVE (NEGATIVE); LEUKOCYTE ESTERASE ,URINE LARGE (NEGATIVE); NITRITE,URINE POSITIVE (NEGATIVE); PROTEIN,URINE DIPSTICK 2+ (NEGATIVE); URINE UROBILINOGEN 0.2 mg/dL (0.2 - 1)
[2020-11-21 13:19] LABS: BACTERIA,URINE MANY /HPF; EPITHELIAL CELLS,URINE MODERATE /LPF; RBC,URINE >50 /HPF (0-5); WBC,URINE (MAN) >50 /HPF (0-5)
[2020-11-21] MEDS ORDERED: MACRODANTIN100 MG PO (14:13)
[2020-11-21] MEDS ORDERED: MACROBID 100 M100 MG PO (14:14)
[2020-11-21] MEDS ORDERED: CEFTRIAXONE 1 GM VIAL IM ONE (14:15)
== END 2020-11-21 14:30 | disposition home or self-care (01) ==
LOC: ER 12:12
DX: R30.0 Dysuria (principal); N39.0 Urinary tract infection, site not specified; R50.9 Fever, unspecified; I10 Essential (primary) hypertension; F41.9 Anxiety disorder, unspecified; Z85.41 Personal history of malignant neoplasm of cervix uteri; Z93.6 Other artificial openings of urinary tract status
CPT/HCPCS: 81001; 99283; J0696

== ENCOUNTER → 2020-12-25 | Outpatient (CLI) | payer OTHER ==
[~2020-12-25] MED LIST changes: +IOPAMIDOL 300MG/ML 100 ML INFUS..BTL IV ONE; +LIDOCAINE HCL 1% LOCAL INJ 20 ML VIAL ONE; +MACROBID 100 M100 MG PO; +MACRODANTIN100 MG PO; +SODIUM CHLORIDE 0.9% 250ML 250 ML ONE
== END ==
LOC: DX 11:08
PROVIDERS: ATTEND Urology
DX: R33.9 Retention of urine, unspecified (principal); N13.30 Unspecified hydronephrosis
CPT/HCPCS: 50435; J2001; J7050; Q9967

== ENCOUNTER 2021-01-10 01:00 | Emergency (ER) | payer OTHER ==
[~2021-01-10] VITALS: Ht 152.4 cm; Wt 83.9 kg
[~2021-01-10 01:00] MED LIST changes: -IOPAMIDOL 300MG/ML 100 ML INFUS..BTL IV ONE; -LIDOCAINE HCL 1% LOCAL INJ 20 ML VIAL ONE; -SODIUM CHLORIDE 0.9% 250ML 250 ML ONE
[2021-01-10 04:16] LABS: CLARITY,URINE CLOUDY (CLEAR); COLOR,URINE YELLOW (YELLOW); KETONES,URINE NEGATIVE (NEGATIVE); LEUKOCYTE ESTERASE ,URINE LARGE (NEGATIVE); NITRITE,URINE POSITIVE (NEGATIVE); PROTEIN,URINE DIPSTICK 2+ (NEGATIVE); URINE UROBILINOGEN 0.2 mg/dL (0.2 - 1)
[2021-01-10 04:20] LABS: BACTERIA,URINE MODERATE /HPF; EPITHELIAL CELLS,URINE FEW /LPF; RBC,URINE >50 /HPF (0-5); WBC,URINE (MAN) 21-50 /HPF (0-5)
== END 2021-01-10 03:50 | disposition home or self-care (01) ==
LOC: ER 01:21
DX: Z46.6 Encounter for fitting and adjustment of urinary device (principal); R33.9 Retention of urine, unspecified; I10 Essential (primary) hypertension; F41.9 Anxiety disorder, unspecified; Z85.41 Personal history of malignant neoplasm of cervix uteri
CPT/HCPCS: 51700; 81001; 87086; 87186; 99282

== ENCOUNTER 2021-01-22 10:21 | Emergency (ER) | payer OTHER ==
[~2021-01-22] VITALS: Ht 152.4 cm; Wt 83.5 kg
[2021-01-22] MEDS ORDERED: PREDNISONE20 MG PO (11:07)
== END 2021-01-22 11:24 | disposition home or self-care (01) ==
LOC: FSED 10:48
DX: R33.9 Retention of urine, unspecified (principal); M54.16 Radiculopathy, lumbar region; Z93.6 Other artificial openings of urinary tract status; I10 Essential (primary) hypertension; F41.9 Anxiety disorder, unspecified; Z85.41 Personal history of malignant neoplasm of cervix uteri
CPT/HCPCS: 99283

== ENCOUNTER → 2021-01-23 | Day surgery (SDC) | payer OTHER ==
[2021-01-22 09:56] LABS: BASOPHILS # (AUTO) 0.1 (0.0-0.1); BASOPHILS % 0.6 % (0.0-1.0); EOSINOPHILS # (AUTO) 0.1 (0.0-0.4); EOSINOPHILS % 1.1 % (0.0-6.0); HEMATOCRIT 38.1 % (34.2-44.1); HEMOGLOBIN 11.3 g/dL (12.0-16.0); LYMPHOCYTES # (AUTO) 2.2 (1.0-3.2); LYMPHOCYTES % 25.7 % (18.0-39.1); MEAN CORPUSCULAR HEMOGLOBIN 26.1 pg (28-32); MEAN CORPUSCULAR HGB CONC 29.7 g/dL (31-35); MONOCYTES # (AUTO) 0.4 (0.2-0.8); MONOCYTES % 4.7 % (4.4-11.3); NEUTROPHILS # (AUTO) 5.6 (2.1-6.9); NEUTROPHILS % 67.3 % (38.7-80.0); PLATELET COUNT 264 x10e3/uL (140-360); RED BLOOD COUNT 4.33 x10e6/uL (3.6-5.1)
[2021-01-22 10:19] LABS: ANION GAP 16.9 mmol/L (8-16); CALCIUM 9.1 mg/dL (8.4-10.2); CREATININE, SERUM 0.95 mg/dL (0.57-1.11); POTASSIUM 3.9 mmol/L (3.5-5.1)
[~2021-01-23] MED LIST changes: +ACETAMINOPHEN 1000 MG/100 ML 100 ML IV ONE; +BELLADONNA/OPIUM 30 MG SUPP RC ONE; +BUPIVACAINE HCL 0.5% INJ 30 ML VIAL INJ ONE; +CIPROFLOXACIN 400 MG/D5W 200ML BAG IV ONE; +DEXAMETHASONE SOD PHOS INJ 4 MG/ML SDV ONE; +FENTANYL CITRATE/PF 100MCG/2 ML INJ ONE; +IOPAMIDOL 300MG/ML 50ML INFUS..BTL IV ONE; +KETOROLAC TROMETHAMINE 30 MG/ML VIAL ONE; +LIDOCAINE 2%/ EPINEPHRINE 20ML MDV ONE; +LIDOCAINE HCL 2% LOCAL INJ 5 ML SDV VIAL INJ ONE; +MIDAZOLAM HCL 2 MG/2 ML VIAL ONE; +ONDANSETRON HCL INJ 2MG/ML 2ML 2 MG/ML VIAL ONE; +POVIDONE IODINE 0.05% 0.05 % ML PO ONE; +PREDNISONE20 MG PO; +PROPOFOL IV EMULSION 10 MG/ML 20 ML VIAL ONE; +SEVOFLURANE INHAL SOLN 250 ML PEN BTL ONE
[2021-01-23 13:00] VITALS: BP 121/71
== END | disposition home or self-care (01) ==
LOC: OR 09:38
PROVIDERS: ATTEND Urology
DX: N13.1 Hydronephrosis with ureteral stricture, not elsewhere classified (principal); Z46.6 Encounter for fitting and adjustment of urinary device; R33.8 Other retention of urine; N13.30 Unspecified hydronephrosis; N31.9 Neuromuscular dysfunction of bladder, unspecified; N95.2 Postmenopausal atrophic vaginitis; N39.0 Urinary tract infection, site not specified; Z93.6 Other artificial openings of urinary tract status; M79.604 Pain in right leg; R07.9 Chest pain, unspecified; E66.9 Obesity, unspecified; F32.A Depression, unspecified; Z88.0 Allergy status to penicillin; Z88.8 Allergy status to other drugs, medicaments and biological substances; Z01.810 Encounter for preprocedural cardiovascular examination; Z01.812 Encounter for preprocedural laboratory examination; Z20.822 Contact with and (suspected) exposure to COVID-19; Z68.36 Body mass index [BMI] 36.0-36.9, adult; Z85.41 Personal history of malignant neoplasm of cervix uteri; Z92.21 Personal history of antineoplastic chemotherapy; Z92.3 Personal history of irradiation; Z86.16 Personal history of COVID-19
CPT/HCPCS: 36415; 74420; 80048; 85025; 93005; C2617; J1100; J1885; J2001; J2250; J2405; J3010; U0002

== ENCOUNTER 2021-02-11 15:01 | Emergency (ER) | payer OTHER ==
[~2021-02-11] VITALS: Ht 152.4 cm; Wt 83.5 kg
[~2021-02-11 15:01] MED LIST changes: -ACETAMINOPHEN 1000 MG/100 ML 100 ML IV ONE; -BELLADONNA/OPIUM 30 MG SUPP RC ONE; -BUPIVACAINE HCL 0.5% INJ 30 ML VIAL INJ ONE; -CIPROFLOXACIN 400 MG/D5W 200ML BAG IV ONE; -DEXAMETHASONE SOD PHOS INJ 4 MG/ML SDV ONE; -FENTANYL CITRATE/PF 100MCG/2 ML INJ ONE; -IOPAMIDOL 300MG/ML 50ML INFUS..BTL IV ONE; -KETOROLAC TROMETHAMINE 30 MG/ML VIAL ONE; -LIDOCAINE 2%/ EPINEPHRINE 20ML MDV ONE; -LIDOCAINE HCL 2% LOCAL INJ 5 ML SDV VIAL INJ ONE; -MIDAZOLAM HCL 2 MG/2 ML VIAL ONE; -ONDANSETRON HCL INJ 2MG/ML 2ML 2 MG/ML VIAL ONE; -POVIDONE IODINE 0.05% 0.05 % ML PO ONE; -PROPOFOL IV EMULSION 10 MG/ML 20 ML VIAL ONE; -SEVOFLURANE INHAL SOLN 250 ML PEN BTL ONE
[2021-02-11] MEDS ORDERED: GABAPENTIN300 MG PO (15:34)
[2021-02-11] MEDS ORDERED: GABAPENTIN 300 MG CAP PO ONE (15:45)
[2021-02-11] MEDS ORDERED: KETOROLAC TROMETHAMINE 30 MG/ML VIAL IM ONE (15:45)
[2021-02-11] MEDS ORDERED: GABAPENTIN 300 MG CAP ONE (15:50)
[2021-02-11] MEDS ORDERED: KETOROLAC TROMETHAMINE 60 MG/2 ML VIAL ONE (15:50)
== END 2021-02-11 16:44 | disposition home or self-care (01) ==
LOC: ER 15:12
DX: M54.31 Sciatica, right side (principal); I10 Essential (primary) hypertension; N18.9 Chronic kidney disease, unspecified; F41.9 Anxiety disorder, unspecified; Z85.41 Personal history of malignant neoplasm of cervix uteri
CPT/HCPCS: 99283; J1885

== ENCOUNTER 2021-02-27 10:46 | Emergency (ER) | payer OTHER ==
[~2021-02-27] VITALS: Ht 152.4 cm; Wt 83.5 kg
[~2021-02-27 10:46] MED LIST changes: +GABAPENTIN300 MG PO
[2021-02-27] MEDS ORDERED: ONDANSETRON HCL INJ 2MG/ML 2ML 2 MG/ML VIAL IV STA (11:08)
[2021-02-27] MEDS ORDERED: SODIUM CHLORIDE 0.9% 1000ML 1,000 ML IV STA (11:08)
[2021-02-27] MEDS ORDERED: Morphine 4mg Syringe 4 MG/ML INJ IV ONE (11:15)
[2021-02-27 11:47] LABS: INR 0.82; PROTHROMBIN TIME 11.9 seconds (11.9-14.5)
[2021-02-27 11:50] LABS: CLARITY,URINE CLOUDY (CLEAR); COLOR,URINE YELLOW (YELLOW); LEUKOCYTE ESTERASE ,URINE LARGE (NEGATIVE)
[2021-02-27 11:51] LABS: KETONES,URINE NEGATIVE (NEGATIVE); NITRITE,URINE POSITIVE (NEGATIVE); PROTEIN,URINE DIPSTICK >=300 (NEGATIVE); URINE UROBILINOGEN 0.2 mg/dL (0.2 - 1)
[2021-02-27 11:52] LABS: ALBUMIN/GLOBULIN RATIO 0.8 (0.8-2.0); ANION GAP 16.5 mmol/L (8-16); CREATININE, SERUM 0.94 mg/dL (0.57-1.11); POTASSIUM 4.5 mmol/L (3.5-5.1)
[2021-02-27 11:59] LABS: BACTERIA,URINE MANY /HPF; EPITHELIAL CELLS,URINE FEW /LPF; WBC,URINE (MAN) >50 /HPF (0-5)
[2021-02-27 12:13] LABS: BASOPHILS # (AUTO) 0.1 (0.0-0.1); BASOPHILS % 0.4 % (0.0-1.0); EOSINOPHILS % 0.2 % (0.0-6.0); HEMATOCRIT 36.3 % (34.2-44.1); HEMOGLOBIN 10.9 g/dL (12.0-16.0); LYMPHOCYTES # (AUTO) 1.1 (1.0-3.2); LYMPHOCYTES % 8.3 % (18.0-39.1); MEAN CORPUSCULAR HEMOGLOBIN 26.3 pg (28-32); MEAN CORPUSCULAR VOLUME 87.7 fL (81-99); MONOCYTES # (AUTO) 0.5 (0.2-0.8); MONOCYTES % 3.6 % (4.4-11.3); NEUTROPHILS % 87.1 % (38.7-80.0); PLATELET COUNT 308 x10e3/uL (140-360); RED BLOOD COUNT 4.14 x10e6/uL (3.6-5.1); RED CELL DISTRIBUTION WIDTH 15.3 % (11.7-14.4)
[2021-02-27] MEDS ORDERED: Morphine 4mg Syringe 4 MG/ML INJ IV STA (12:22)
[2021-02-27 12:37] LABS: PARTIAL THROMBOPLASTIN TIME 19.4 seconds (23.8-35.5)
[2021-02-27] MEDS ORDERED: CEFTRIAXONE 1 GM in SODIUM CHLORIDE 0.9% 50ML 50 ML IV ONE (13:00)
[2021-02-27] MEDS ORDERED: IOPAMIDOL 300MG/ML 100 ML INFUS..BTL IV ONE (13:14)
[2021-02-27] MEDS ORDERED: SODIUM CHLORIDE 0.9% 250ML 250 ML ONE (13:14)
[2021-02-27] MEDS ORDERED: LIDOCAINE HCL 1% LOCAL INJ 20 ML VIAL ONE (13:14)
[2021-02-27] MEDS ORDERED: FENTANYL CITRATE/PF 100MCG/2 ML INJ ONE (13:16)
[2021-02-27] MEDS ORDERED: MIDAZOLAM HCL 2 MG/2 ML VIAL ONE (13:16)
[2021-02-27] MEDS ORDERED: SODIUM CHLORIDE 0.9% 500ML 500 ML ONE (13:26)
[2021-02-27] MEDS ORDERED: CIPRO250 MG PO (15:00)
[2021-02-27] MEDS ORDERED: Morphine 2mg Syringe 2 MG/ML SYR IV ONE (15:15)
== END 2021-02-27 15:23 | disposition home or self-care (01) ==
LOC: ER 10:56
DX: Z43.6 Encounter for attention to other artificial openings of urinary tract (principal); N39.0 Urinary tract infection, site not specified; N13.30 Unspecified hydronephrosis; K80.20 Calculus of gallbladder without cholecystitis without obstruction; Z85.41 Personal history of malignant neoplasm of cervix uteri
CPT/HCPCS: 36415; 50435; 74176; 74470; 80053; 81001; 85025; 85610; 85730; 86850; 86900; 87086; 99284; C1729; C1769; J0696; J2001; J2250; J2270; J2405; J3010; J7030; J7040; J7050; Q9967

== ENCOUNTER 2021-03-26 08:56 | Emergency (ER) | payer OTHER ==
[~2021-03-26] VITALS: Ht 152.4 cm; Wt 83.5 kg
[~2021-03-26 08:56] MED LIST changes: +CIPRO250 MG PO
[2021-03-26 09:32] LABS: CLARITY,URINE CLOUDY (CLEAR); COLOR,URINE YELLOW (YELLOW); KETONES,URINE NEGATIVE (NEGATIVE); LEUKOCYTE ESTERASE ,URINE LARGE (NEGATIVE); NITRITE,URINE POSITIVE (NEGATIVE); PROTEIN,URINE DIPSTICK 2+ (NEGATIVE)
[2021-03-26 09:33] LABS: URINE UROBILINOGEN 0.2 mg/dL (0.2 - 1)
[2021-03-26 09:42] LABS: BACTERIA,URINE FEW /HPF; EPITHELIAL CELLS,URINE RARE /LPF; TRIPLE PHOSPHATE CRYSTAL,UR FEW (FEW)
== END 2021-03-26 10:40 | disposition home or self-care (01) ==
LOC: ER 09:00
DX: T83.018A Breakdown (mechanical) of other urinary catheter, initial encounter (principal); I10 Essential (primary) hypertension; N18.9 Chronic kidney disease, unspecified; F41.9 Anxiety disorder, unspecified; Z85.41 Personal history of malignant neoplasm of cervix uteri
CPT/HCPCS: 74176; 81001; 99283

== ENCOUNTER 2021-04-17 09:03 | Emergency (ER) | payer BC, OTHER ==
[~2021-04-17] VITALS: Ht 152.4 cm; Wt 83.5 kg
[2021-04-17] MEDS ORDERED: LIDOCAINE HCL 1% LOCAL INJ 20 ML VIAL ONE (10:06)
[2021-04-17] MEDS ORDERED: SODIUM CHLORIDE 0.9% 250ML 250 ML ONE (10:06)
[2021-04-17] MEDS ORDERED: IOPAMIDOL 300MG/ML 100 ML INFUS..BTL IV ONE (10:18)
[2021-04-17] MEDS ORDERED: FENTANYL CITRATE/PF 100MCG/2 ML INJ ONE (10:19)
[2021-04-17] MEDS ORDERED: MIDAZOLAM HCL 2 MG/2 ML VIAL ONE (10:19)
[2021-04-17 10:33] LABS: BASOPHILS # (AUTO) 0.1 (0.0-0.1); BASOPHILS % 0.6 % (0.0-1.0); EOSINOPHILS # (AUTO) 0.1 (0.0-0.4); EOSINOPHILS % 0.6 % (0.0-6.0); HEMOGLOBIN 11.3 g/dL (12.0-16.0); LYMPHOCYTES # (AUTO) 1.5 (1.0-3.2); LYMPHOCYTES % 17.8 % (18.0-39.1); MEAN CORPUSCULAR HEMOGLOBIN 26.7 pg (28-32); MEAN CORPUSCULAR HGB CONC 30.5 g/dL (31-35); MEAN CORPUSCULAR VOLUME 87.3 fL (81-99); MONOCYTES # (AUTO) 0.4 (0.2-0.8); MONOCYTES % 4.3 % (4.4-11.3); NEUTROPHILS # (AUTO) 6.3 (2.1-6.9); NEUTROPHILS % 76.5 % (38.7-80.0); PLATELET COUNT 265 x10e3/uL (140-360); RED BLOOD COUNT 4.24 x10e6/uL (3.6-5.1); RED CELL DISTRIBUTION WIDTH 14.4 % (11.7-14.4)
[2021-04-17 11:04] LABS: ANION GAP 16.7 mmol/L (8-16); CALCIUM 9.7 mg/dL (8.4-10.2); CREATININE, SERUM 1.08 mg/dL (0.57-1.11); POTASSIUM 3.7 mmol/L (3.5-5.1)
== END 2021-04-17 11:45 | disposition home or self-care (01) ==
LOC: ER 09:08
DX: Z43.6 Encounter for attention to other artificial openings of urinary tract (principal); M54.50 Low back pain, unspecified; I12.9 Hypertensive chronic kidney disease with stage 1 through stage 4 chronic kidney disease, or unspecified chronic kidney disease; N18.9 Chronic kidney disease, unspecified; F41.9 Anxiety disorder, unspecified; Z85.41 Personal history of malignant neoplasm of cervix uteri
CPT/HCPCS: 36415; 80048; 85025; 99283; C1729; C1769; J2001; J2250; J3010; J7050; Q9967; 50435

== ENCOUNTER → 2021-05-10 | Day surgery (SDC) | payer BC ==
[2021-05-09 10:27] LABS: BASOPHILS # (AUTO) 0.1 (0.0-0.1); BASOPHILS % 0.7 % (0.0-1.0); EOSINOPHILS # (AUTO) 0.1 (0.0-0.4); EOSINOPHILS % 2.1 % (0.0-6.0); HEMATOCRIT 37.8 % (34.2-44.1); HEMOGLOBIN 11.7 g/dL (12.0-16.0); LYMPHOCYTES # (AUTO) 2.1 (1.0-3.2); LYMPHOCYTES % 31.2 % (18.0-39.1); MEAN CORPUSCULAR HEMOGLOBIN 26.8 pg (28-32); MEAN CORPUSCULAR VOLUME 86.7 fL (81-99); MONOCYTES # (AUTO) 0.3 (0.2-0.8); MONOCYTES % 4.6 % (4.4-11.3); NEUTROPHILS # (AUTO) 4.2 (2.1-6.9); NEUTROPHILS % 61.3 % (38.7-80.0); PLATELET COUNT 271 x10e3/uL (140-360); RED BLOOD COUNT 4.36 x10e6/uL (3.6-5.1); RED CELL DISTRIBUTION WIDTH 14.5 % (11.7-14.4)
[2021-05-09 10:42] LABS: ANION GAP 13.2 mmol/L (8-16); CREATININE, SERUM 0.94 mg/dL (0.57-1.11); POTASSIUM 3.2 mmol/L (3.5-5.1)
[~2021-05-10] MED LIST changes: +ACETAMINOPHEN/CODEINE 300MG - 30MG TAB ONE; +B&O 60MG R/S 60 MG SUPP PR ONE; +BUPIVACAINE HCL 0.5% 10ML MPF VIAL INJ ONE; +DEXAMETHASONE SOD PHOS INJ 4 MG/ML SDV ONE; +FENTANYL CITRATE/PF 100MCG/2 ML INJ ONE; +GENTAMICIN 80MG/NS 100 ML 200 ML IV ONE; +IOPAMIDOL 300MG/ML 50ML INFUS..BTL IV ONE; +LIDOCAINE 2% /EPINEPHRINE 20 ML SDV INJ ONE; +LIDOCAINE HCL 2% LOCAL INJ 5 ML SDV VIAL INJ ONE; +MEROPENEM 1 GM VIAL ONE; +MIDAZOLAM HCL 2 MG/2 ML VIAL ONE; +ONDANSETRON HCL INJ 2MG/ML 2ML 2 MG/ML VIAL ONE; +POVIDONE IODINE 0.05% 0.05 % ML PO ONE; +PROPOFOL IV EMULSION 10 MG/ML 20 ML VIAL ONE; +SEVOFLURANE INHAL SOLN 250 ML PEN BTL ONE
[2021-05-10 15:25] VITALS: BP 161/83
== END | disposition home or self-care (01) ==
LOC: OR 11:44
PROVIDERS: ATTEND Urology
DX: N13.1 Hydronephrosis with ureteral stricture, not elsewhere classified (principal); Z43.5 Encounter for attention to cystostomy; R33.9 Retention of urine, unspecified; N31.9 Neuromuscular dysfunction of bladder, unspecified; R35.1 Nocturia; N39.0 Urinary tract infection, site not specified; N39.41 Urge incontinence; Z46.6 Encounter for fitting and adjustment of urinary device; N81.10 Cystocele, unspecified; N95.2 Postmenopausal atrophic vaginitis; N36.8 Other specified disorders of urethra; E66.9 Obesity, unspecified; I10 Essential (primary) hypertension; Z88.0 Allergy status to penicillin; Z01.810 Encounter for preprocedural cardiovascular examination; Z01.812 Encounter for preprocedural laboratory examination; Z20.822 Contact with and (suspected) exposure to COVID-19; Z68.36 Body mass index [BMI] 36.0-36.9, adult; Z85.41 Personal history of malignant neoplasm of cervix uteri; Z92.21 Personal history of antineoplastic chemotherapy
CPT/HCPCS: 36415; 51705; 52332; 52341; 74420; 80048; 85025; 87086; 93005; C1758 ×2; C1769; C2617; J1100; J1580; J2001; J2185; J2250; J2405; J2704; J3010; Q9967; U0002

== ENCOUNTER → 2021-08-06 | Outpatient (CLI) | payer OTHER ==
[~2021-08-06] MED LIST changes: -ACETAMINOPHEN/CODEINE 300MG - 30MG TAB ONE; -B&O 60MG R/S 60 MG SUPP PR ONE; -BUPIVACAINE HCL 0.5% 10ML MPF VIAL INJ ONE; -DEXAMETHASONE SOD PHOS INJ 4 MG/ML SDV ONE; -GENTAMICIN 80MG/NS 100 ML 200 ML IV ONE; +IOPAMIDOL 300MG/ML 100 ML INFUS..BTL IV ONE; -IOPAMIDOL 300MG/ML 50ML INFUS..BTL IV ONE; +LEVOFLOXACIN750 MG PO; -LIDOCAINE 2% /EPINEPHRINE 20 ML SDV INJ ONE; -LIDOCAINE HCL 2% LOCAL INJ 5 ML SDV VIAL INJ ONE; -MEROPENEM 1 GM VIAL ONE; -ONDANSETRON HCL INJ 2MG/ML 2ML 2 MG/ML VIAL ONE; -POVIDONE IODINE 0.05% 0.05 % ML PO ONE; -PROPOFOL IV EMULSION 10 MG/ML 20 ML VIAL ONE; -SEVOFLURANE INHAL SOLN 250 ML PEN BTL ONE; +SODIUM CHLORIDE 0.9% 250ML 250 ML ONE
== END | disposition home or self-care (01) ==
LOC: DX 07-29 11:05
PROVIDERS: ATTEND Urology
DX: N13.30 Unspecified hydronephrosis (principal); T19.1XXA Foreign body in bladder, initial encounter; X58.XXXA Exposure to other specified factors, initial encounter; Z01.812 Encounter for preprocedural laboratory examination; Z20.822 Contact with and (suspected) exposure to COVID-19
CPT/HCPCS: 0223U; 36415; 50435; C1729; J2250; J3010; J7050; Q9967

== ENCOUNTER 2021-08-09 05:53 | Emergency (ER) | payer OTHER ==
[~2021-08-09] VITALS: Ht 152.4 cm; Wt 83.5 kg
[~2021-08-09 05:53] MED LIST changes: -FENTANYL CITRATE/PF 100MCG/2 ML INJ ONE; -IOPAMIDOL 300MG/ML 100 ML INFUS..BTL IV ONE; -LEVOFLOXACIN750 MG PO; -MIDAZOLAM HCL 2 MG/2 ML VIAL ONE; -SODIUM CHLORIDE 0.9% 250ML 250 ML ONE
== END 2021-08-09 07:00 | disposition home or self-care (01) ==
LOC: ER 06:12
DX: Z46.6 Encounter for fitting and adjustment of urinary device (principal); I12.9 Hypertensive chronic kidney disease with stage 1 through stage 4 chronic kidney disease, or unspecified chronic kidney disease; N18.9 Chronic kidney disease, unspecified; F41.9 Anxiety disorder, unspecified; Z85.41 Personal history of malignant neoplasm of cervix uteri
CPT/HCPCS: 87086; 99283

== ENCOUNTER 2021-08-26 12:29 | Emergency (ER) | payer OTHER ==
[~2021-08-26] VITALS: Ht 152.4 cm; Wt 83.5 kg
[2021-08-26] MEDS ORDERED: ONDANSETRON HCL INJ 2MG/ML 2ML 2 MG/ML VIAL IV STA (13:09)
[2021-08-26] MEDS ORDERED: SODIUM CHLORIDE 0.9% 1000ML 1,000 ML IV ONE (13:15)
[2021-08-26 13:49] LABS: BASOPHILS % 0.5 % (0.0-1.0); EOSINOPHILS # (AUTO) 0.1 (0.0-0.4); EOSINOPHILS % 1.5 % (0.0-6.0); HEMATOCRIT 37.2 % (34.2-44.1); HEMOGLOBIN 11.9 g/dL (12.0-16.0); LYMPHOCYTES # (AUTO) 1.9 (1.0-3.2); LYMPHOCYTES % 28.6 % (18.0-39.1); MEAN CORPUSCULAR HEMOGLOBIN 27.1 pg (28-32); MEAN CORPUSCULAR VOLUME 84.7 fL (81-99); MONOCYTES # (AUTO) 0.3 (0.2-0.8); MONOCYTES % 4.1 % (4.4-11.3); NEUTROPHILS # (AUTO) 4.2 (2.1-6.9); NEUTROPHILS % 65.1 % (38.7-80.0); PLATELET COUNT 273 x10e3/uL (140-360); RED BLOOD COUNT 4.39 x10e6/uL (3.6-5.1); RED CELL DISTRIBUTION WIDTH 14.6 % (11.7-14.4)
[2021-08-26 14:19] LABS: ALBUMIN 3.5 g/dL (3.5-5.0); ALBUMIN/GLOBULIN RATIO 0.7 (0.8-2.0); CALCIUM 8.8 mg/dL (8.4-10.2); CREATININE, SERUM 0.91 mg/dL (0.57-1.11)
[2021-08-26 14:22] LABS: COLOR,URINE AMBER (YELLOW)
[2021-08-26 14:23] LABS: CLARITY,URINE TURBID (CLEAR); KETONES,URINE NEGATIVE (NEGATIVE); LEUKOCYTE ESTERASE ,URINE LARGE (NEGATIVE); NITRITE,URINE NEGATIVE (NEGATIVE); PROTEIN,URINE DIPSTICK >=300 (NEGATIVE); URINE UROBILINOGEN 0.2 mg/dL (0.2 - 1)
[2021-08-26 14:41] LABS: BACTERIA,URINE MODERATE /HPF; RBC,URINE >50 /HPF (0-5)
[2021-08-26] MEDS ORDERED: CEFUROXIME500 MG PO (15:34)
== END 2021-08-26 15:44 | disposition home or self-care (01) ==
LOC: ER 12:34
DX: R53.81 Other malaise (principal); N30.90 Cystitis, unspecified without hematuria; I12.9 Hypertensive chronic kidney disease with stage 1 through stage 4 chronic kidney disease, or unspecified chronic kidney disease; N18.9 Chronic kidney disease, unspecified; F41.9 Anxiety disorder, unspecified; F32.A Depression, unspecified; Z85.41 Personal history of malignant neoplasm of cervix uteri
CPT/HCPCS: 36415; 80053; 81001; 84484; 85025; 87086; 87186; 99283; J2405; J7030

== ENCOUNTER 2021-09-13 09:24 | Emergency (ER) | payer OTHER ==
[~2021-09-13] VITALS: Ht 152.4 cm; Wt 83.5 kg
[2021-09-13] MEDS ORDERED: LEVOFLOXACIN 750MG/D5W 150ML 150 ML IV STA (09:54)
[2021-09-13] MEDS ORDERED: SODIUM CHLORIDE FLUSH 10 ML SYR IV PRN (10:00)
[2021-09-13 10:20] LABS: BASOPHILS % 0.5 % (0.0-1.0); EOSINOPHILS # (AUTO) 0.1 (0.0-0.4); HEMATOCRIT 36.8 % (34.2-44.1); HEMOGLOBIN 11.4 g/dL (12.0-16.0); LYMPHOCYTES # (AUTO) 2.8 (1.0-3.2); LYMPHOCYTES % 34.4 % (18.0-39.1); MEAN CORPUSCULAR HEMOGLOBIN 26.7 pg (28-32); MEAN CORPUSCULAR VOLUME 86.2 fL (81-99); MONOCYTES # (AUTO) 0.4 (0.2-0.8); MONOCYTES % 4.3 % (4.4-11.3); NEUTROPHILS # (AUTO) 4.9 (2.1-6.9); NEUTROPHILS % 59.4 % (38.7-80.0); PLATELET COUNT 284 x10e3/uL (140-360); RED BLOOD COUNT 4.27 x10e6/uL (3.6-5.1); RED CELL DISTRIBUTION WIDTH 14.8 % (11.7-14.4)
[2021-09-13] MEDS ORDERED: ASPIRIN 81 MG CHEW TAB PO ONE (10:30)
[2021-09-13 11:03] LABS: ALBUMIN 3.2 g/dL (3.5-5.0); ALBUMIN/GLOBULIN RATIO 0.7 (0.8-2.0); ANION GAP 12.9 mmol/L (8-16); CALCIUM 8.3 mg/dL (8.4-10.2); CREATININE, SERUM 0.89 mg/dL (0.57-1.11); POTASSIUM 3.9 mmol/L (3.5-5.1)
[2021-09-13] MEDS ORDERED: LEVOFLOXACIN750 MG PO (14:12)
[2021-09-13 14:24] VITALS: BP 128/78
== END 2021-09-13 14:28 | disposition home or self-care (01) ==
LOC: ER 09:50
DX: R07.89 Other chest pain (principal); N39.0 Urinary tract infection, site not specified; I10 Essential (primary) hypertension; N18.9 Chronic kidney disease, unspecified; F41.9 Anxiety disorder, unspecified; Z85.41 Personal history of malignant neoplasm of cervix uteri
CPT/HCPCS: 36415; 71045; 80053; 84484; 85025; 93005; 94760; 99284

== ENCOUNTER → 2021-10-30 | Outpatient (CLI) | payer OTHER ==
[~2021-10-30] MED LIST changes: +B&O 60MG R/S 60 MG SUPP PR ONE; +FENTANYL CITRATE/PF 100MCG/2 ML INJ ONE; +IOPAMIDOL 300MG/ML 100 ML INFUS..BTL IV ONE; +IOPAMIDOL 300MG/ML 50ML INFUS..BTL IV ONE; +LEVOFLOXACIN750 MG PO; +LIDOCAINE HCL 1% LOCAL INJ 20 ML VIAL ONE; +MIDAZOLAM HCL 2 MG/2 ML VIAL ONE; +SODIUM CHLORIDE 0.9% 250ML 250 ML ONE; +TYLENOL325 M2
== END ==
LOC: DX 08:54
PROVIDERS: ATTEND Urology
DX: Z43.6 Encounter for attention to other artificial openings of urinary tract (principal)
CPT/HCPCS: 50435; C1729; C1769; J2001; J2250; J3010; J7050; Q9967

== ENCOUNTER 2021-11-17 16:46 | Emergency (ER) | payer OTHER ==
[~2021-11-17] VITALS: Ht 152.4 cm; Wt 83.5 kg
[~2021-11-17 16:46] MED LIST changes: +AMOX TR-K CLV1 EAC1 PO; -B&O 60MG R/S 60 MG SUPP PR ONE; +BUSPIRONE HCL30 MG PO; -FENTANYL CITRATE/PF 100MCG/2 ML INJ ONE; -IOPAMIDOL 300MG/ML 100 ML INFUS..BTL IV ONE; -IOPAMIDOL 300MG/ML 50ML INFUS..BTL IV ONE; -LIDOCAINE HCL 1% LOCAL INJ 20 ML VIAL ONE; -MIDAZOLAM HCL 2 MG/2 ML VIAL ONE; -SODIUM CHLORIDE 0.9% 250ML 250 ML ONE; +TYLENOL #3 PO
[2021-11-17] MEDS ORDERED: SODIUM CHLORIDE 0.9% 1000ML 1,000 ML IV ONE (17:30)
[2021-11-17] MEDS ORDERED: ACETAMINOPHEN 325 MG TAB PO ONE (17:30)
[2021-11-17 17:57] LABS: BASOPHILS # (AUTO) 0.1 (0.0-0.1); BASOPHILS % 0.8 % (0.0-1.0); EOSINOPHILS # (AUTO) 0.1 (0.0-0.4); EOSINOPHILS % 1.2 % (0.0-6.0); HEMATOCRIT 35.7 % (34.2-44.1); HEMOGLOBIN 11.6 g/dL (12.0-16.0); LYMPHOCYTES # (AUTO) 1.9 (1.0-3.2); LYMPHOCYTES % 21.6 % (18.0-39.1); MEAN CORPUSCULAR HGB CONC 32.5 g/dL (31-35); MEAN CORPUSCULAR VOLUME 83.2 fL (81-99); MONOCYTES # (AUTO) 0.7 (0.2-0.8); MONOCYTES % 7.6 % (4.4-11.3); NEUTROPHILS # (AUTO) 5.9 (2.1-6.9); NEUTROPHILS % 68.5 % (38.7-80.0); PLATELET COUNT 306 x10e3/uL (140-360); RED BLOOD COUNT 4.29 x10e6/uL (3.6-5.1); RED CELL DISTRIBUTION WIDTH 14.3 % (11.7-14.4)
[2021-11-17] MEDS ORDERED: CEFEPIME HCL 1 GM VIAL ONE (17:57)
[2021-11-17 18:08] LABS: CLARITY,URINE HAZY (CLEAR); COLOR,URINE AMBER (YELLOW); COLOR,URINE YELLOW (YELLOW); KETONES,URINE NEGATIVE (NEGATIVE); LEUKOCYTE ESTERASE ,URINE LARGE (NEGATIVE); LEUKOCYTE ESTERASE ,URINE SMALL (NEGATIVE); NITRITE,URINE POSITIVE (NEGATIVE); PROTEIN,URINE DIPSTICK >=300 (NEGATIVE); URINE UROBILINOGEN 1 mg/dL (0.2 - 1)
[2021-11-17 18:09] LABS: ALANINE AMINOTRANSFERASE 32 IU/L (0-55); ALBUMIN 3.5 g/dL (3.5-5.0); ALBUMIN/GLOBULIN RATIO 0.6 (0.8-2.0); ALKALINE PHOSPHATASE 129 IU/L (40-150); ANION GAP 19.5 mmol/L (8-16); BLOOD UREA NITROGEN 17 mg/dL (7-26); BUN/CREATININE RATIO 17 (6-25); CALCIUM 9.8 mg/dL (8.4-10.2); CARBON DIOXIDE 21 mmol/L (22-29); CHLORIDE 104 mmol/L (98-107); CREATINE KINASE 52 IU/L (29-168); CREATININE, SERUM 0.99 mg/dL (0.57-1.11); GLUCOSE 156 mg/dL (74-118); KETONES,URINE NEGATIVE (NEGATIVE); POTASSIUM 3.5 mmol/L (3.5-5.1); PROTEIN,URINE DIPSTICK 2+ (NEGATIVE); SODIUM 141 mmol/L (136-145); URINE UROBILINOGEN 0.2 mg/dL (0.2 - 1)
[2021-11-17 18:11] LABS: RBC,URINE >50 /HPF (0-5); WBC,URINE (MAN) >50 /HPF (0-5)
[2021-11-17 18:12] LABS: AMORPHOUS SEDIMENT,URINE FEW (FEW); BACTERIA,URINE MODERATE /HPF; EPITHELIAL CELLS,URINE FEW /LPF; MUCUS,URINE MODERATE (RARE)
[2021-11-17 18:14] LABS: RBC,URINE 21-50 /HPF (0-5); WBC,URINE (MAN) >50 /HPF (0-5)
[2021-11-17 18:15] LABS: AMORPHOUS SEDIMENT,URINE FEW (FEW); BACTERIA,URINE MANY /HPF; EPITHELIAL CELLS,URINE MODERATE /LPF
[2021-11-17 18:16] LABS: MUCUS,URINE MODERATE (RARE)
[2021-11-17] MEDS ORDERED: CEFDINIR300 MG PO (19:00)
== END 2021-11-17 19:13 | disposition home or self-care (01) ==
LOC: ER 17:16
DX: R50.9 Fever, unspecified (principal); N39.0 Urinary tract infection, site not specified; I10 Essential (primary) hypertension; N28.9 Disorder of kidney and ureter, unspecified; F41.9 Anxiety disorder, unspecified; R94.31 Abnormal electrocardiogram [ECG] [EKG]; Z85.41 Personal history of malignant neoplasm of cervix uteri
CPT/HCPCS: 36415; 80053; 81001; 82550; 82553; 83605; 84484; 85025; 87040; 87086; 87186; 93005; 99283; J0692; J7030

== ENCOUNTER 2021-11-30 02:34 | Emergency (ER) | payer OTHER ==
[~2021-11-30] VITALS: Ht 152.4 cm; Wt 83.5 kg
== END 2021-11-30 03:30 | disposition home or self-care (01) ==
LOC: ER 02:38
DX: Z46.6 Encounter for fitting and adjustment of urinary device (principal); I10 Essential (primary) hypertension; N28.9 Disorder of kidney and ureter, unspecified; F41.9 Anxiety disorder, unspecified; Z85.41 Personal history of malignant neoplasm of cervix uteri; Z79.899 Other long term (current) drug therapy
CPT/HCPCS: 99282

== ENCOUNTER → 2022-01-01 | Day surgery (SDC) | payer OTHER ==
[2021-12-31 14:43] LABS: BASOPHILS % 0.4 % (0.0-1.0); EOSINOPHILS # (AUTO) 0.1 (0.0-0.4); EOSINOPHILS % 1.2 % (0.0-6.0); HEMATOCRIT 37.3 % (34.2-44.1); LYMPHOCYTES # (AUTO) 2.4 (1.0-3.2); LYMPHOCYTES % 25.3 % (18.0-39.1); MEAN CORPUSCULAR HEMOGLOBIN 26.6 pg (28-32); MEAN CORPUSCULAR HGB CONC 29.5 g/dL (31-35); MEAN CORPUSCULAR VOLUME 90.1 fL (81-99); MONOCYTES # (AUTO) 0.5 (0.2-0.8); MONOCYTES % 5.2 % (4.4-11.3); NEUTROPHILS # (AUTO) 6.3 (2.1-6.9); NEUTROPHILS % 67.7 % (38.7-80.0); PLATELET COUNT 296 x10e3/uL (140-360); RED BLOOD COUNT 4.14 x10e6/uL (3.6-5.1); RED CELL DISTRIBUTION WIDTH 14.4 % (11.7-14.4)
[2021-12-31 15:00] LABS: ANION GAP 14.6 mmol/L (8-16); CALCIUM 9.4 mg/dL (8.4-10.2); CREATININE, SERUM 0.98 mg/dL (0.57-1.11); POTASSIUM 3.6 mmol/L (3.5-5.1)
[~2022-01-01] MED LIST changes: +FENTANYL CITRATE/PF 100MCG/2 ML INJ ONE; +GENTAMICIN 80MG/NS 100 ML 200 ML IV ONE; +IOPAMIDOL 610MG/1ML 300 MG/ML VIAL IV ONE; +LIDOCAINE HCL 2% LOCAL INJ 5 ML SDV VIAL INJ ONE; +MIDAZOLAM HCL 2 MG/2 ML VIAL ONE; +Morphine 2mg Syringe 2 MG/ML SYR ONE; +ONDANSETRON HCL INJ 2MG/ML 2ML 2 MG/ML VIAL ONE; +PIPERACILLIN/TAZOBACTAM 3.375 GM VIAL ONE; +POVIDONE IODINE 0.05% 0.05 % ML PO ONE; +PROPOFOL IV EMULSION 10 MG/ML 20 ML VIAL ONE; +SEVOFLURANE INHAL SOLN 250 ML PEN BTL ONE
[2022-01-01 11:50] VITALS: BP 121/82
== END | disposition home or self-care (01) ==
LOC: OR 07:50
PROVIDERS: ATTEND Urology
DX: Z46.6 Encounter for fitting and adjustment of urinary device (principal); N13.1 Hydronephrosis with ureteral stricture, not elsewhere classified; N31.9 Neuromuscular dysfunction of bladder, unspecified; N13.5 Crossing vessel and stricture of ureter without hydronephrosis; N20.1 Calculus of ureter; R35.1 Nocturia; N39.0 Urinary tract infection, site not specified; N39.41 Urge incontinence; N95.2 Postmenopausal atrophic vaginitis; Z93.50 Unspecified cystostomy status; I10 Essential (primary) hypertension; E66.9 Obesity, unspecified; Z01.810 Encounter for preprocedural cardiovascular examination; Z01.812 Encounter for preprocedural laboratory examination; Z79.899 Other long term (current) drug therapy; Z68.36 Body mass index [BMI] 36.0-36.9, adult; Z85.41 Personal history of malignant neoplasm of cervix uteri; Z92.21 Personal history of antineoplastic chemotherapy; Z92.3 Personal history of irradiation; Z86.16 Personal history of COVID-19
CPT/HCPCS: 36415; 74420; 80048; 82948; 85025; 93005; C1758; C1769; C2617; J1580; J2001; J2250; J2270; J2405; J2543; J3010

== ENCOUNTER → 2022-01-14 | Outpatient (CLI) | payer OTHER ==
[~2022-01-14] MED LIST changes: -GENTAMICIN 80MG/NS 100 ML 200 ML IV ONE; +IOPAMIDOL 300MG/ML 100 ML INFUS..BTL IV ONE; -IOPAMIDOL 610MG/1ML 300 MG/ML VIAL IV ONE; -LIDOCAINE HCL 2% LOCAL INJ 5 ML SDV VIAL INJ ONE; -MIDAZOLAM HCL 2 MG/2 ML VIAL ONE; -Morphine 2mg Syringe 2 MG/ML SYR ONE; -ONDANSETRON HCL INJ 2MG/ML 2ML 2 MG/ML VIAL ONE; -PIPERACILLIN/TAZOBACTAM 3.375 GM VIAL ONE; -POVIDONE IODINE 0.05% 0.05 % ML PO ONE; -PROPOFOL IV EMULSION 10 MG/ML 20 ML VIAL ONE; -SEVOFLURANE INHAL SOLN 250 ML PEN BTL ONE; +SODIUM CHLORIDE 0.9% 250ML 250 ML ONE
== END ==
LOC: DX 11:30
PROVIDERS: ATTEND Urology
DX: N13.30 Unspecified hydronephrosis (principal)
CPT/HCPCS: 50435; C1729; C1769; J3010; J7050; Q9967

== ENCOUNTER 2022-03-13 07:04 | Inpatient (IN) | payer OTHER ==
[~2022-03-13] VITALS: Ht 152.4 cm; Wt 83.5 kg
[~2022-03-13 07:04] MED LIST changes: -FENTANYL CITRATE/PF 100MCG/2 ML INJ ONE; -IOPAMIDOL 300MG/ML 100 ML INFUS..BTL IV ONE; -SODIUM CHLORIDE 0.9% 250ML 250 ML ONE
[2022-03-13 08:07] LABS: BASOPHILS # (AUTO) 0.1 (0.0-0.1); BASOPHILS % 0.7 % (0.0-1.0); EOSINOPHILS # (AUTO) 0.1 (0.0-0.4); EOSINOPHILS % 1.6 % (0.0-6.0); HEMATOCRIT 38.3 % (34.2-44.1); HEMOGLOBIN 11.1 g/dL (12.0-16.0); LYMPHOCYTES # (AUTO) 2.2 (1.0-3.2); LYMPHOCYTES % 28.7 % (18.0-39.1); MEAN CORPUSCULAR HEMOGLOBIN 26.2 pg (28-32); MEAN CORPUSCULAR VOLUME 90.5 fL (81-99); MONOCYTES # (AUTO) 0.4 (0.2-0.8); MONOCYTES % 5.3 % (4.4-11.3); NEUTROPHILS # (AUTO) 4.8 (2.1-6.9); NEUTROPHILS % 63.4 % (38.7-80.0); PLATELET COUNT 280 x10e3/uL (140-360); RED BLOOD COUNT 4.23 x10e6/uL (3.6-5.1); RED CELL DISTRIBUTION WIDTH 13.5 % (11.7-14.4)
[2022-03-13] MEDS ORDERED: CEFTRIAXONE 1 GM VIAL IV ONE (08:12)
[2022-03-13] MEDS ORDERED: Morphine 4mg INJECTION 4 MG/ML INJ IV PRN (08:15)
[2022-03-13 08:20] LABS: INR 0.98; PROTHROMBIN TIME 13.2 seconds (11.9-14.5)
[2022-03-13 08:27] LABS: ANION GAP 14.6 mmol/L (8-16); CALCIUM 9.4 mg/dL (8.4-10.2); CREATININE, SERUM 0.87 mg/dL (0.57-1.11); POTASSIUM 3.6 mmol/L (3.5-5.1)
[2022-03-13] MEDS ORDERED: ACETAMINOPHEN 325 MG TAB PO PRN (08:30)
[2022-03-13] MEDS: ONDANSETRON HCL INJ 2MG/ML 2ML 2 MG/ML VIAL IV PRN ×3 (08:34→17:09)
[2022-03-13] MEDS: DOCUSATE SODIUM 100 MG CAP PO SCH (09:00)
[2022-03-13] MEDS: SENNOSIDES 8.6 MG TAB PO SCH (09:00)
[2022-03-13] MEDS: Morphine 4mg INJECTION 4 MG/ML INJ IV PRN ×2 (10:39→11:15)
[2022-03-13 12:40] VITALS: BP 166/96
[2022-03-13] MEDS: HYDROMORPHONE 1MG/1ML INJ IV PRN ×4 (13:04→23:25)
[2022-03-13 14:16] VITALS: BP 166/96
[2022-03-13] MEDS: HYDROCODONE/APAP 5MG-325MG TAB PO PRN ×2 (14:47→16:34)
[2022-03-13] MEDS ORDERED: ACETAMINOPHEN 1000 MG/100 ML IV PRN (15:00)
[2022-03-13 15:52] VITALS: BP 159/83
[2022-03-13 20:48] VITALS: BP 124/70
[2022-03-14] VITALS (8 sets, daily range): BP systolic 113–154; BP diastolic 63–95
[2022-03-14] MEDS: HYDROCODONE/APAP 5MG-325MG TAB PO PRN ×3 (03:57→14:51)
[2022-03-14 05:50] LABS: BASOPHILS # (AUTO) 0.1 (0.0-0.1); BASOPHILS % 0.5 % (0.0-1.0); EOSINOPHILS % 0.2 % (0.0-6.0); HEMATOCRIT 34.5 % (34.2-44.1); HEMOGLOBIN 10.7 g/dL (12.0-16.0); LYMPHOCYTES # (AUTO) 1.3 (1.0-3.2); LYMPHOCYTES % 10.3 % (18.0-39.1); MEAN CORPUSCULAR HEMOGLOBIN 26.6 pg (28-32); MEAN CORPUSCULAR VOLUME 85.8 fL (81-99); MONOCYTES # (AUTO) 0.9 (0.2-0.8); MONOCYTES % 7.4 % (4.4-11.3); NEUTROPHILS % 81.1 % (38.7-80.0); PLATELET COUNT 248 x10e3/uL (140-360); RED BLOOD COUNT 4.02 x10e6/uL (3.6-5.1)
[2022-03-14 06:14] LABS: ANION GAP 13.8 mmol/L (8-16); CALCIUM 9.1 mg/dL (8.4-10.2); CREATININE, SERUM 1.39 mg/dL (0.57-1.11); POTASSIUM 3.8 mmol/L (3.5-5.1)
[2022-03-14 06:51] LABS: INR 1.01; PROTHROMBIN TIME 13.5 seconds (11.9-14.5)
[2022-03-14] MEDS: DOCUSATE SODIUM 100 MG CAP PO SCH (09:00)
[2022-03-14] MEDS: SENNOSIDES 8.6 MG TAB PO SCH (09:00)
[2022-03-14] MEDS: HYDROMORPHONE 1MG/1ML INJ IV PRN ×2 (10:11→20:04)
[2022-03-14] MEDS: ONDANSETRON HCL INJ 2MG/ML 2ML 2 MG/ML VIAL IV PRN (10:14)
[2022-03-14] MEDS ORDERED: LIDOCAINE 1% 10 ML MULTIDOSE VIAL IJ ONE (11:07)
[2022-03-14] MEDS ORDERED: IOPAMIDOL 300MG/ML 50ML INFUS..BTL IV ONE (11:07)
[2022-03-14] MEDS ORDERED: SODIUM CHLORIDE 0.9% 250ML 250 ML ONE ×3 (11:07→13:23)
[2022-03-14] MEDS ORDERED: MIDAZOLAM HCL 2 MG/2 ML VIAL ONE (12:16)
[2022-03-14] MEDS ORDERED: FENTANYL CITRATE/PF 100MCG/2 ML INJ ONE (12:16)
[2022-03-14 12:36] LABS: FERRITIN 60.71 ng/mL (4.63-204.00)
[2022-03-15] VITALS (8 sets, daily range): BP systolic 99–128; BP diastolic 64–73
[2022-03-15] MEDS: HYDROMORPHONE 1MG/1ML INJ IV PRN ×3 (04:15→20:15)
[2022-03-15 06:49] LABS: BASOPHILS # (AUTO) 0.1 (0.0-0.1); BASOPHILS % 0.5 % (0.0-1.0); EOSINOPHILS % 0.3 % (0.0-6.0); HEMATOCRIT 33.7 % (34.2-44.1); HEMOGLOBIN 10.4 g/dL (12.0-16.0); LYMPHOCYTES # (AUTO) 1.7 (1.0-3.2); MEAN CORPUSCULAR HEMOGLOBIN 26.1 pg (28-32); MEAN CORPUSCULAR HGB CONC 30.9 g/dL (31-35); MEAN CORPUSCULAR VOLUME 84.7 fL (81-99); MONOCYTES # (AUTO) 0.8 (0.2-0.8); MONOCYTES % 7.7 % (4.4-11.3); NEUTROPHILS % 75.1 % (38.7-80.0); PLATELET COUNT 250 x10e3/uL (140-360); RED BLOOD COUNT 3.98 x10e6/uL (3.6-5.1); RED CELL DISTRIBUTION WIDTH 14.1 % (11.7-14.4)
[2022-03-15 07:05] LABS: ANION GAP 15.5 mmol/L (8-16); CALCIUM 9.2 mg/dL (8.4-10.2); CREATININE, SERUM 1.08 mg/dL (0.57-1.11); POTASSIUM 3.5 mmol/L (3.5-5.1)
[2022-03-15] MEDS: DOCUSATE SODIUM 100 MG CAP PO SCH (09:42)
[2022-03-15] MEDS: SENNOSIDES 8.6 MG TAB PO SCH (09:42)
[2022-03-15] MEDS ORDERED: POTASSIUM CHLORIDE 20 MEQ TAB CR PO ONE (10:30)
[2022-03-15] MEDS: HYDROCODONE/APAP 5MG-325MG TAB PO PRN (12:28)
[2022-03-15] MEDS: ONDANSETRON HCL INJ 2MG/ML 2ML 2 MG/ML VIAL IV PRN (12:45)
[2022-03-16] VITALS (8 sets, daily range): BP systolic 97–126; BP diastolic 60–85
[2022-03-16] MEDS: HYDROMORPHONE 1MG/1ML INJ IV PRN (01:17)
[2022-03-16 06:13] LABS: BASOPHILS % 0.4 % (0.0-1.0); EOSINOPHILS # (AUTO) 0.1 (0.0-0.4); EOSINOPHILS % 0.8 % (0.0-6.0); HEMATOCRIT 33.5 % (34.2-44.1); HEMOGLOBIN 10.5 g/dL (12.0-16.0); LYMPHOCYTES # (AUTO) 2.3 (1.0-3.2); LYMPHOCYTES % 21.5 % (18.0-39.1); MEAN CORPUSCULAR HEMOGLOBIN 26.5 pg (28-32); MEAN CORPUSCULAR HGB CONC 31.3 g/dL (31-35); MEAN CORPUSCULAR VOLUME 84.6 fL (81-99); MONOCYTES # (AUTO) 0.9 (0.2-0.8); MONOCYTES % 8.5 % (4.4-11.3); NEUTROPHILS # (AUTO) 7.1 (2.1-6.9); PLATELET COUNT 236 x10e3/uL (140-360); RED BLOOD COUNT 3.96 x10e6/uL (3.6-5.1); RED CELL DISTRIBUTION WIDTH 14.1 % (11.7-14.4)
[2022-03-16 06:35] LABS: ALBUMIN/GLOBULIN RATIO 0.6 (0.8-2.0); ANION GAP 12.3 mmol/L (8-16); CALCIUM 9.1 mg/dL (8.4-10.2); CREATININE, SERUM 0.96 mg/dL (0.57-1.11); MAGNESIUM 1.7 MG/DL (1.3-2.1); POTASSIUM 3.3 mmol/L (3.5-5.1)
[2022-03-16] MEDS ORDERED: POTASSIUM CHLORIDE 20 MEQ TAB CR PO STA (07:33)
[2022-03-16] MEDS ORDERED: MAGNESIUM OXIDE 400 MG TAB PO ONE (07:45)
[2022-03-16] MEDS: HYDROCODONE/APAP 5MG-325MG TAB PO PRN ×3 (08:44→21:25)
[2022-03-16] MEDS: SENNOSIDES 8.6 MG TAB PO SCH (08:45)
[2022-03-16] MEDS: DOCUSATE SODIUM 100 MG CAP PO SCH (08:45)
[2022-03-17] VITALS (7 sets, daily range): BP systolic 116–153; BP diastolic 66–93
[2022-03-17] MEDS: HYDROCODONE/APAP 5MG-325MG TAB PO PRN ×3 (05:11→21:35)
[2022-03-17 06:36] LABS: ANION GAP 13.7 mmol/L (8-16); CALCIUM 9.2 mg/dL (8.4-10.2); CREATININE, SERUM 0.83 mg/dL (0.57-1.11); MAGNESIUM 1.9 MG/DL (1.3-2.1); POTASSIUM 3.7 mmol/L (3.5-5.1)
[2022-03-17] MEDS: DOCUSATE SODIUM 100 MG CAP PO SCH (08:22)
[2022-03-17] MEDS: SENNOSIDES 8.6 MG TAB PO SCH (08:22)
[2022-03-17] MEDS ORDERED: ONDANSETRON HCL 4 MG ORAL DISINTEGRATING TAB PO PRN (14:15)
[2022-03-18] VITALS (7 sets, daily range): BP systolic 109–154; BP diastolic 70–94
[2022-03-18] MEDS: HYDROCODONE/APAP 5MG-325MG TAB PO PRN ×3 (05:25→17:51)
[2022-03-18 06:09] LABS: BASOPHILS # (AUTO) 0.1 (0.0-0.1); BASOPHILS % 0.6 % (0.0-1.0); EOSINOPHILS # (AUTO) 0.2 (0.0-0.4); EOSINOPHILS % 2.4 % (0.0-6.0); LYMPHOCYTES # (AUTO) 2.4 (1.0-3.2); LYMPHOCYTES % 27.4 % (18.0-39.1); MEAN CORPUSCULAR HEMOGLOBIN 26.1 pg (28-32); MEAN CORPUSCULAR HGB CONC 28.9 g/dL (31-35); MONOCYTES # (AUTO) 0.7 (0.2-0.8); MONOCYTES % 7.4 % (4.4-11.3); NEUTROPHILS # (AUTO) 5.5 (2.1-6.9); NEUTROPHILS % 61.9 % (38.7-80.0); PLATELET COUNT 274 x10e3/uL (140-360); RED BLOOD COUNT 4.22 x10e6/uL (3.6-5.1); RED CELL DISTRIBUTION WIDTH 13.3 % (11.7-14.4)
[2022-03-18 06:29] LABS: ALBUMIN 3.3 g/dL (3.5-5.0); ALBUMIN/GLOBULIN RATIO 0.7 (0.8-2.0); ANION GAP 13.6 mmol/L (8-16); CALCIUM 9.7 mg/dL (8.4-10.2); CREATININE, SERUM 0.81 mg/dL (0.57-1.11); MAGNESIUM 1.5 MG/DL (1.3-2.1); POTASSIUM 3.6 mmol/L (3.5-5.1)
[2022-03-18] MEDS: DOCUSATE SODIUM 100 MG CAP PO SCH (09:00)
[2022-03-18] MEDS: SENNOSIDES 8.6 MG TAB PO SCH (09:00)
[2022-03-18] MEDS ORDERED: SODIUM CHLORIDE 0.9% 250ML 250 ML ONE (21:17)
[2022-03-18] MEDS: ACETAMINOPHEN/CODEINE 300MG - 30MG TAB PO PRN (22:06)
[2022-03-19] VITALS (9 sets, daily range): BP systolic 96–143; BP diastolic 73–83
[2022-03-19] MEDS: HYDROMORPHONE 1MG/1ML INJ IV PRN ×2 (01:30→14:32)
[2022-03-19 05:52] LABS: BASOPHILS % 0.6 % (0.0-1.0); EOSINOPHILS # (AUTO) 0.2 (0.0-0.4); EOSINOPHILS % 3.3 % (0.0-6.0); HEMATOCRIT 32.5 % (34.2-44.1); HEMOGLOBIN 10.1 g/dL (12.0-16.0); LYMPHOCYTES # (AUTO) 2.4 (1.0-3.2); LYMPHOCYTES % 37.8 % (18.0-39.1); MEAN CORPUSCULAR HEMOGLOBIN 26.4 pg (28-32); MEAN CORPUSCULAR HGB CONC 31.1 g/dL (31-35); MONOCYTES # (AUTO) 0.5 (0.2-0.8); MONOCYTES % 7.5 % (4.4-11.3); NEUTROPHILS # (AUTO) 3.2 (2.1-6.9); NEUTROPHILS % 50.5 % (38.7-80.0); PLATELET COUNT 217 x10e3/uL (140-360); RED BLOOD COUNT 3.82 x10e6/uL (3.6-5.1); RED CELL DISTRIBUTION WIDTH 13.5 % (11.7-14.4)
[2022-03-19 06:04] LABS: MEAN CORPUSCULAR VOLUME 85.1 fL (81-99)
[2022-03-19 06:22] LABS: ANION GAP 12.6 mmol/L (8-16); CALCIUM 9.1 mg/dL (8.4-10.2); CREATININE, SERUM 0.77 mg/dL (0.57-1.11); MAGNESIUM 1.7 MG/DL (1.3-2.1); POTASSIUM 3.6 mmol/L (3.5-5.1)
[2022-03-19] MEDS: DOCUSATE SODIUM 100 MG CAP PO SCH (08:34)
[2022-03-19] MEDS: SENNOSIDES 8.6 MG TAB PO SCH (08:35)
[2022-03-19] MEDS ORDERED: FENTANYL CITRATE/PF 100MCG/2 ML INJ ONE ×2 (10:12→12:32)
[2022-03-19] MEDS: ACETAMINOPHEN/CODEINE 300MG - 30MG TAB PO PRN ×2 (12:15→23:20)
[2022-03-19 12:18] LABS: CLARITY,URINE CLOUDY (CLEAR); COLOR,URINE RED (YELLOW); KETONES,URINE NEGATIVE (NEGATIVE); LEUKOCYTE ESTERASE ,URINE 1+ (NEGATIVE); NITRITE,URINE NEGATIVE (NEGATIVE); PROTEIN,URINE DIPSTICK >=300 (NEGATIVE); URINE UROBILINOGEN 0.2 mg/dL (0.2 - 1)
[2022-03-19] MEDS ORDERED: DEXAMETHASONE SOD PHOS INJ 4 MG/ML SDV ONE (12:22)
[2022-03-19] MEDS ORDERED: PROPOFOL IV EMULSION 10 MG/ML 20 ML VIAL ONE (12:22)
[2022-03-19] MEDS ORDERED: POVIDONE IODINE 0.05% 0.05 % ML PO ONE (12:22)
[2022-03-19] MEDS ORDERED: LIDOCAINE HCL 2% LOCAL INJ 5 ML SDV VIAL INJ ONE (12:22)
[2022-03-19] MEDS ORDERED: ONDANSETRON HCL INJ 2MG/ML 2ML 2 MG/ML VIAL ONE (12:22)
[2022-03-19] MEDS ORDERED: SEVOFLURANE INHAL SOLN 250 ML PEN BTL ONE (12:22)
[2022-03-19 12:26] LABS: BACTERIA,URINE FEW /HPF; EPITHELIAL CELLS,URINE FEW /LPF; RBC,URINE >50 /HPF (0-5); WBC,URINE (MAN) 0-5 /HPF (0-5)
[2022-03-19] MEDS ORDERED: MIDAZOLAM HCL 2 MG/2 ML VIAL ONE (12:32)
[2022-03-19] MEDS ORDERED: SODIUM CHLORIDE 0.9% 250ML 250 ML ONE (13:54)
[2022-03-20 01:56] VITALS: BP 135/84
[2022-03-20] MEDS: HYDROMORPHONE 1MG/1ML INJ IV PRN (03:28)
[2022-03-20 06:00] VITALS: BP 135/84
[2022-03-20 08:19] VITALS: BP 123/76
[2022-03-20 08:46] VITALS: BP 123/76
[2022-03-20] MEDS: DOCUSATE SODIUM 100 MG CAP PO SCH (09:00)
[2022-03-20] MEDS: SENNOSIDES 8.6 MG TAB PO SCH (09:00)
[2022-03-20] MEDS ORDERED: HIPREX1 GM PO (09:19)
[2022-03-20 11:48] VITALS: BP 132/78
== END 2022-03-20 15:00 | disposition home or self-care (01) | DRG 660 ==
LOC: ER 07:13 → ERHOLD 08:11 → INTOOBSV 08:11 → MED/SURG2 12:36 → OBSVTOIN 03-15 12:07
PROVIDERS: ADMIT Internal Medicine; ATTEND Internal Medicine
PROC: 02HV33Z Insertion of Infusion Device into Superior Vena Cava, Percutaneous Approach (ICD-10-PCS; principal; 2022-03-15)
PROC: 0T9330Z Drainage of Right Kidney Pelvis with Drainage Device, Percutaneous Approach (ICD-10-PCS; 2022-03-15)
PROC: 0T778DZ Dilation of Left Ureter with Intraluminal Device, Via Natural or Artificial Opening Endoscopic (ICD-10-PCS; 2022-03-15)
PROC: 0TP98DZ Removal of Intraluminal Device from Ureter, Via Natural or Artificial Opening Endoscopic (ICD-10-PCS; 2022-03-15)
PROC: 3E0K8GC Introduction of Other Therapeutic Substance into Genitourinary Tract, Via Natural or Artificial Opening Endoscopic (ICD-10-PCS; 2022-03-15)
PROC: 0T9B80Z Drainage of Bladder with Drainage Device, Via Natural or Artificial Opening Endoscopic (ICD-10-PCS; 2022-03-15)
DX: Z43.6 Encounter for attention to other artificial openings of urinary tract (principal); N12 Tubulo-interstitial nephritis, not specified as acute or chronic; N17.9 Acute kidney failure, unspecified; Z16.12 Extended spectrum beta lactamase (ESBL) resistance; N82.0 Vesicovaginal fistula; N31.9 Neuromuscular dysfunction of bladder, unspecified; F41.9 Anxiety disorder, unspecified; N13.5 Crossing vessel and stricture of ureter without hydronephrosis; Z85.41 Personal history of malignant neoplasm of cervix uteri; F33.41 Major depressive disorder, recurrent, in partial remission; Z20.822 Contact with and (suspected) exposure to COVID-19; G89.4 Chronic pain syndrome; D64.9 Anemia, unspecified; E66.09 Other obesity due to excess calories; Z68.35 Body mass index [BMI] 35.0-35.9, adult; N95.2 Postmenopausal atrophic vaginitis; B96.1 Klebsiella pneumoniae [K. pneumoniae] as the cause of diseases classified elsewhere; B95.5 Unspecified streptococcus as the cause of diseases classified elsewhere; R33.8 Other retention of urine
CPT/HCPCS: 36415; 36569; 50435; 71045; 74420; 74470; 80048; 80053; 81001; 82607; 82728; 82746; 83540; 83735; 84466; 85025; 85610; 87086; 87186; 94799; 99284; C1729; C1758; C1769; C2617; G0378; J0690; J0696; J1100; J1170; J2001; J2185; J2250; J2270; J2405; J3010; J7050

== ENCOUNTER → 2022-05-12 | Outpatient (CLI) | payer OTHER ==
[~2022-05-12] MED LIST changes: +CEFTRIAXONE 1 GM VIAL ONE; +FENTANYL CITRATE/PF 100MCG/2 ML INJ ONE; +HIPREX1 GM PO; +LIDOCAINE HCL 1% LOCAL INJ 20 ML VIAL ONE; +MIDAZOLAM HCL 2 MG/2 ML VIAL ONE; +SODIUM CHLORIDE 0.9% 250ML 250 ML ONE
[2022-05-12 12:48] LABS: HEMOGLOBIN 11.6 g/dL (12.0-16.0)
[2022-05-12 13:05] LABS: INR 0.91; PROTHROMBIN TIME 12.8 seconds (11.9-14.5)
[2022-05-12 13:06] LABS: PARTIAL THROMBOPLASTIN TIME 28.2 seconds (23.8-35.5)
== END ==
LOC: DX 11:38
PROVIDERS: ATTEND Urology
DX: N13.30 Unspecified hydronephrosis (principal)
CPT/HCPCS: 36415; 50430; 50435; 76942; 85014; 85049; 85610; 85730; 99152; 99153; C1729; C1769; J0696; J2001; J2250; J7050

== ENCOUNTER → 2022-05-19 | Day surgery (SDC) | payer OTHER ==
[2022-05-14 16:11] LABS: BASOPHILS % 0.3 % (0.0-1.0); EOSINOPHILS # (AUTO) 0.1 (0.0-0.4); EOSINOPHILS % 0.8 % (0.0-6.0); HEMATOCRIT 36.2 % (34.2-44.1); HEMOGLOBIN 11.4 g/dL (12.0-16.0); LYMPHOCYTES # (AUTO) 1.9 (1.0-3.2); LYMPHOCYTES % 21.3 % (18.0-39.1); MEAN CORPUSCULAR HEMOGLOBIN 26.3 pg (28-32); MEAN CORPUSCULAR HGB CONC 31.5 g/dL (31-35); MEAN CORPUSCULAR VOLUME 83.4 fL (81-99); MONOCYTES # (AUTO) 0.5 (0.2-0.8); MONOCYTES % 5.7 % (4.4-11.3); NEUTROPHILS # (AUTO) 6.2 (2.1-6.9); NEUTROPHILS % 71.7 % (38.7-80.0); PLATELET COUNT 284 x10e3/uL (140-360); RED BLOOD COUNT 4.34 x10e6/uL (3.6-5.1); RED CELL DISTRIBUTION WIDTH 14.4 % (11.7-14.4)
[2022-05-14 16:21] LABS: INR 0.92; PROTHROMBIN TIME 12.9 seconds (11.9-14.5)
[2022-05-14 16:22] LABS: PARTIAL THROMBOPLASTIN TIME 31.1 seconds (23.8-35.5)
[2022-05-14 16:28] LABS: ANION GAP 15.8 mmol/L (8-16); CALCIUM 9.7 mg/dL (8.4-10.2); CREATININE, SERUM 0.85 mg/dL (0.57-1.11); POTASSIUM 3.8 mmol/L (3.5-5.1)
[~2022-05-19] MED LIST changes: +DEXAMETHASONE SOD PHOS INJ 4 MG/ML SDV ONE; +DIPHENHYDRAMINE HCL INJ 50 MG/ML VIAL ONE; +IOPAMIDOL 610MG/1ML 300 MG/ML VIAL IV ONE; +LACTATED RINGER'S 1,000 ML ONE; -LIDOCAINE HCL 1% LOCAL INJ 20 ML VIAL ONE; +LIDOCAINE HCL 2% LOCAL INJ 5 ML SDV VIAL INJ ONE; +MEROPENEM 1 GM VIAL ONE; -MIDAZOLAM HCL 2 MG/2 ML VIAL ONE; +ONDANSETRON HCL INJ 2MG/ML 2ML 2 MG/ML VIAL ONE; +POVIDONE IODINE 0.05% 0.05 % ML PO ONE; +PROPOFOL IV EMULSION 10 MG/ML 20 ML VIAL ONE; +SEVOFLURANE INHAL SOLN 250 ML PEN BTL ONE; -SODIUM CHLORIDE 0.9% 250ML 250 ML ONE
[2022-05-19 14:26] VITALS: BP 146/76
== END | disposition home or self-care (01) ==
LOC: OR 10:24
PROVIDERS: ATTEND Urology
DX: Z46.6 Encounter for fitting and adjustment of urinary device (principal); N82.0 Vesicovaginal fistula; N81.6 Rectocele; N95.2 Postmenopausal atrophic vaginitis; Z93.6 Other artificial openings of urinary tract status; N13.30 Unspecified hydronephrosis; Z01.810 Encounter for preprocedural cardiovascular examination; Z01.812 Encounter for preprocedural laboratory examination; Z79.899 Other long term (current) drug therapy
CPT/HCPCS: 36415 ×2; 52315; 57420; 76000; 80048; 82948; 85025; 85610; 85730; 93005; J1100; J1200; J2001; J2185; J2405; J2704; J3010; J7121; J0696

== ENCOUNTER → 2022-07-03 | Outpatient (CLI) | payer OTHER ==
[~2022-07-03] MED LIST changes: -CEFTRIAXONE 1 GM VIAL ONE; -DEXAMETHASONE SOD PHOS INJ 4 MG/ML SDV ONE; -DIPHENHYDRAMINE HCL INJ 50 MG/ML VIAL ONE; -IOPAMIDOL 610MG/1ML 300 MG/ML VIAL IV ONE; -LACTATED RINGER'S 1,000 ML ONE; +LIDOCAINE HCL 1% LOCAL INJ 20 ML VIAL ONE; -LIDOCAINE HCL 2% LOCAL INJ 5 ML SDV VIAL INJ ONE; -MEROPENEM 1 GM VIAL ONE; -ONDANSETRON HCL INJ 2MG/ML 2ML 2 MG/ML VIAL ONE; -POVIDONE IODINE 0.05% 0.05 % ML PO ONE; -PROPOFOL IV EMULSION 10 MG/ML 20 ML VIAL ONE; -SEVOFLURANE INHAL SOLN 250 ML PEN BTL ONE
== END ==
LOC: DX 10:11
PROVIDERS: ATTEND Urology
DX: N13.30 Unspecified hydronephrosis (principal)
CPT/HCPCS: C1769; J2001; J3010; 50435

== ENCOUNTER 2022-07-25 12:18 | Inpatient (IN) | payer OTHER ==
[~2022-07-25] VITALS: Ht 154.9 cm; Wt 83.5 kg
[~2022-07-25 12:18] MED LIST changes: -FENTANYL CITRATE/PF 100MCG/2 ML INJ ONE; -LIDOCAINE HCL 1% LOCAL INJ 20 ML VIAL ONE
[2022-07-25] MEDS ORDERED: LEVOFLOXACIN 500MG/D5W 100ML 100 ML IV ONE (13:00)
[2022-07-25] MEDS ORDERED: MEROPENEM 1 GM in SODIUM CHLORIDE 0.9% 100 ML IV ONE (13:15)
[2022-07-25 13:42] LABS: BASOPHILS % 0.3 % (0.0-1.0); EOSINOPHILS % 0.3 % (0.0-6.0); HEMATOCRIT 33.4 % (34.2-44.1); HEMOGLOBIN 10.7 g/dL (12.0-16.0); LYMPHOCYTES # (AUTO) 1.5 (1.0-3.2); LYMPHOCYTES % 14.6 % (18.0-39.1); MEAN CORPUSCULAR HEMOGLOBIN 26.5 pg (28-32); MEAN CORPUSCULAR VOLUME 82.7 fL (81-99); MONOCYTES # (AUTO) 0.8 (0.2-0.8); MONOCYTES % 7.8 % (4.4-11.3); NEUTROPHILS # (AUTO) 7.7 (2.1-6.9); NEUTROPHILS % 76.7 % (38.7-80.0); PLATELET COUNT 269 x10e3/uL (140-360); RED BLOOD COUNT 4.04 x10e6/uL (3.6-5.1); RED CELL DISTRIBUTION WIDTH 14.2 % (11.7-14.4)
[2022-07-25] MEDS ORDERED: Vancomycin IV 1 GM in SODIUM CHLORIDE 0.9% 250ML 250 ML IV ONE (13:45)
[2022-07-25] MEDS ORDERED: ONDANSETRON HCL INJ 2MG/ML 2ML 2 MG/ML VIAL IV ONE (13:56)
[2022-07-25 14:10] LABS: INR 1.03
[2022-07-25 14:11] LABS: PARTIAL THROMBOPLASTIN TIME 32.7 seconds (23.8-35.5)
[2022-07-25] MEDS ORDERED: DIPHENHYDRAMINE HCL INJ 50 MG/ML VIAL IV PRN (14:15)
[2022-07-25] MEDS ORDERED: DEXAMETHASONE PHOS 4MG/ML 5ML MULTIDOSE VIAL IV ONE (14:15)
[2022-07-25 14:16] LABS: CALCIUM 9.5 mg/dL (8.4-10.2); CREATININE, SERUM 1.05 mg/dL (0.57-1.11)
[2022-07-25 14:26] LABS: ANION GAP 16.9 mmol/L (8-16); POTASSIUM 3.9 mmol/L (3.5-5.1)
[2022-07-25] MEDS ORDERED: DEXAMETHASONE SOD PHOS INJ 4 MG/ML SDV IV ONE (14:45)
[2022-07-25] MEDS: Morphine 4mg INJECTION 4 MG/ML INJ IV PRN ×2 (14:58→18:45)
[2022-07-25] MEDS ORDERED: LACTATED RINGER'S 1,000 ML IV ONE (15:00)
[2022-07-25] MEDS: LACTATED RINGER'S 1,000 ML INJ SCH (18:50)
[2022-07-25 21:13] VITALS: BP 147/86; PULSE 74; RESP 20; TEMP 97.9; O2SAT 100
[2022-07-25 21:25] VITALS: BP 147/86; PULSE 74; RESP 20; TEMP 97.9; O2SAT 100
[2022-07-26] VITALS (8 sets, daily range): BP systolic 130–181; BP diastolic 75–88; PULSE 65–70; RESP 17–20; TEMP 97.4–98.8; O2SAT 96–100
[2022-07-26] MEDS: LACTATED RINGER'S 1,000 ML INJ SCH ×4 (03:26→20:14)
[2022-07-26] MEDS ORDERED: NEURONTIN400 MG PO (05:37)
[2022-07-26 08:47] LABS: CLARITY,URINE TURBID (CLEAR); COLOR,URINE YELLOW (YELLOW); LEUKOCYTE ESTERASE ,URINE LARGE (NEGATIVE); NITRITE,URINE NEGATIVE (NEGATIVE); PROTEIN,URINE DIPSTICK 1+ (NEGATIVE)
[2022-07-26 08:48] LABS: KETONES,URINE NEGATIVE (NEGATIVE); URINE UROBILINOGEN 0.2 mg/dL (0.2 - 1)
[2022-07-26 08:57] LABS: BACTERIA,URINE FEW /HPF; EPITHELIAL CELLS,URINE FEW /LPF; RBC,URINE >50 /HPF (0-5); WBC,URINE (MAN) >50 /HPF (0-5)
[2022-07-26] MEDS: Morphine 4mg INJECTION 4 MG/ML INJ IV PRN (10:53)
[2022-07-26] MEDS ORDERED: ALBUTEROL/IPRATROPIUM 3 ML NEB NEB PRN (15:15)
[2022-07-26] MEDS ORDERED: SIMETHICONE 80 MG CHEW PO PRN (15:15)
[2022-07-26] MEDS ORDERED: HYDRALAZINE HCL 20 MG/ML VIAL IV PRN (15:15)
[2022-07-26] MEDS ORDERED: DOCUSATE SODIUM 100 MG CAP PO PRN (15:15)
[2022-07-26] MEDS ORDERED: ONDANSETRON HCL INJ 2MG/ML 2ML 2 MG/ML VIAL IV PRN (15:15)
[2022-07-26] MEDS ORDERED: LIDOCAINE 4% PATCH TP PRN (15:15)
[2022-07-26] MEDS ORDERED: BENZONATATE 100 MG CAP PO PRN (15:15)
[2022-07-26] MEDS ORDERED: MELATONIN 5 MG TABLET PO PRN (15:15)
[2022-07-26] MEDS ORDERED: DEXTROSE 50% SYRINGE 50 ML IV PRN (15:15)
[2022-07-26] MEDS ORDERED: ACETAMINOPHEN 325 MG TAB PO PRN (15:15)
[2022-07-26] MEDS ORDERED: POTASSIUM CHLORIDE 20 MEQ TAB CR PO PRN (15:15)
[2022-07-26] MEDS: ENOXAPARIN SOD INJ 40 MG/0.4 ML SYR SC SCH (16:45)
[2022-07-26] MEDS: GABAPENTIN 400 MG CAP PO SCH (16:45)
[2022-07-26] MEDS: DIPHENHYDRAMINE HCL 25 MG CAP PO PRN (16:56)
[2022-07-26] MEDS: Morphine 2mg Syringe 2 MG/ML SYR IV PRN (20:16)
[2022-07-27] VITALS (11 sets, daily range): BP systolic 124–176; BP diastolic 64–100; PULSE 64–75; RESP 17–22; TEMP 97.1–98.8; O2SAT 98–100
[2022-07-27] MEDS: LACTATED RINGER'S 1,000 ML INJ SCH ×4 (05:40→23:09)
[2022-07-27] MEDS: Morphine 2mg Syringe 2 MG/ML SYR IV PRN ×2 (06:47→20:06)
[2022-07-27 07:48] LABS: BASOPHILS # (AUTO) 0.1 (0.0-0.1); BASOPHILS % 0.7 % (0.0-1.0); EOSINOPHILS # (AUTO) 0.1 (0.0-0.4); EOSINOPHILS % 1.1 % (0.0-6.0); HEMATOCRIT 35.7 % (34.2-44.1); LYMPHOCYTES # (AUTO) 2.7 (1.0-3.2); MEAN CORPUSCULAR HEMOGLOBIN 26.4 pg (28-32); MEAN CORPUSCULAR HGB CONC 30.8 g/dL (31-35); MEAN CORPUSCULAR VOLUME 85.6 fL (81-99); MONOCYTES # (AUTO) 0.5 (0.2-0.8); MONOCYTES % 6.9 % (4.4-11.3); NEUTROPHILS # (AUTO) 4.1 (2.1-6.9); NEUTROPHILS % 54.4 % (38.7-80.0); PLATELET COUNT 265 x10e3/uL (140-360); RED BLOOD COUNT 4.17 x10e6/uL (3.6-5.1); RED CELL DISTRIBUTION WIDTH 13.7 % (11.7-14.4)
[2022-07-27 08:12] LABS: ANION GAP 13.6 mmol/L (8-16); CALCIUM 9.3 mg/dL (8.4-10.2); CREATININE, SERUM 0.78 mg/dL (0.57-1.11); POTASSIUM 3.6 mmol/L (3.5-5.1)
[2022-07-27] MEDS: PANTOPRAZOLE SOD 40 MG TABEC PO SCH (08:53)
[2022-07-27] MEDS: GABAPENTIN 400 MG CAP PO SCH ×2 (08:53→17:30)
[2022-07-27] MEDS: DIPHENHYDRAMINE HCL 25 MG CAP PO PRN (12:13)
[2022-07-27] MEDS: ENOXAPARIN SOD INJ 40 MG/0.4 ML SYR SC SCH (17:30)
[2022-07-28] VITALS (10 sets, daily range): BP systolic 140–156; BP diastolic 81–93; PULSE 74–87; RESP 18–20; TEMP 97.5–98.1; O2SAT 98–100
[2022-07-28] MEDS: LACTATED RINGER'S 1,000 ML INJ SCH ×3 (05:01→20:59)
[2022-07-28] MEDS ORDERED: IOPAMIDOL 370 MG/ML 100 ML INFUS..BTL INJ ONE (08:43)
[2022-07-28] MEDS ORDERED: SODIUM CHLORIDE 0.9% 250ML 250 ML ONE (08:43)
[2022-07-28] MEDS ORDERED: LIDOCAINE HCL 1% LOCAL INJ 20 ML VIAL ONE (08:43)
[2022-07-28] MEDS ORDERED: FENTANYL CITRATE/PF 100MCG/2 ML INJ ONE (09:33)
[2022-07-28] MEDS: GABAPENTIN 400 MG CAP PO SCH ×2 (12:52→18:16)
[2022-07-28] MEDS: PANTOPRAZOLE SOD 40 MG TABEC PO SCH (12:52)
[2022-07-28] MEDS: ENOXAPARIN SOD INJ 40 MG/0.4 ML SYR SC SCH (18:17)
[2022-07-29 01:02] VITALS: BP 128/79; PULSE 97; RESP 18; TEMP 98.1; O2SAT 99
[2022-07-29 05:27] VITALS: BP 111/60; PULSE 83; RESP 18; TEMP 98.1; O2SAT 99
[2022-07-29 05:53] LABS: BASOPHILS % 0.6 % (0.0-1.0); EOSINOPHILS # (AUTO) 0.2 (0.0-0.4); EOSINOPHILS % 2.7 % (0.0-6.0); HEMATOCRIT 29.7 % (34.2-44.1); HEMOGLOBIN 9.2 g/dL (12.0-16.0); LYMPHOCYTES # (AUTO) 2.3 (1.0-3.2); LYMPHOCYTES % 34.3 % (18.0-39.1); MEAN CORPUSCULAR HEMOGLOBIN 26.5 pg (28-32); MEAN CORPUSCULAR VOLUME 85.6 fL (81-99); MONOCYTES # (AUTO) 0.6 (0.2-0.8); MONOCYTES % 8.6 % (4.4-11.3); NEUTROPHILS # (AUTO) 3.5 (2.1-6.9); NEUTROPHILS % 52.2 % (38.7-80.0); PLATELET COUNT 279 x10e3/uL (140-360); RED BLOOD COUNT 3.47 x10e6/uL (3.6-5.1); RED CELL DISTRIBUTION WIDTH 14.2 % (11.7-14.4)
[2022-07-29] MEDS: LACTATED RINGER'S 1,000 ML INJ SCH ×3 (06:17→14:54)
[2022-07-29 06:24] LABS: ANION GAP 13.3 mmol/L (8-16); CALCIUM 8.3 mg/dL (8.4-10.2); CREATININE, SERUM 0.79 mg/dL (0.57-1.11); POTASSIUM 3.3 mmol/L (3.5-5.1)
[2022-07-29] MEDS: PANTOPRAZOLE SOD 40 MG TABEC PO SCH (07:30)
[2022-07-29 08:09] VITALS: BP 136/83; PULSE 76; RESP 18; TEMP 97.9; O2SAT 100
[2022-07-29 09:40] VITALS: PULSE 85; RESP 20; O2SAT 98
[2022-07-29] MEDS: GABAPENTIN 400 MG CAP PO SCH (09:40)
[2022-07-29 12:05] VITALS: BP 136/85; PULSE 73; RESP 19; TEMP 98.3; O2SAT 100
[2022-07-29] MEDS ORDERED: ONDANSETRON HCL 4 MG ORAL DISINTEGRATING TAB PO PRN (13:45)
[2022-07-29] MEDS ORDERED: CIPRO250 MG PO (15:50)
[2022-07-29 16:02] VITALS: BP 145/85; PULSE 72; RESP 19; TEMP 97.9; O2SAT 95
== END 2022-07-29 16:20 | disposition home or self-care (01) | DRG 698 ==
LOC: ER 12:45 → ERHOLD 14:07 → MED/SURG3 20:50
PROVIDERS: ADMIT Internal Medicine; ATTEND Internal Medicine
DX: T83.512A Infection and inflammatory reaction due to nephrostomy catheter, initial encounter (principal); A41.53 Sepsis due to Serratia; N17.9 Acute kidney failure, unspecified; Z16.11 Resistance to penicillins; N12 Tubulo-interstitial nephritis, not specified as acute or chronic; N39.0 Urinary tract infection, site not specified; D68.9 Coagulation defect, unspecified; I10 Essential (primary) hypertension; K80.20 Calculus of gallbladder without cholecystitis without obstruction; D64.9 Anemia, unspecified; F41.9 Anxiety disorder, unspecified; F32.A Depression, unspecified; E86.0 Dehydration; E66.9 Obesity, unspecified; Z68.34 Body mass index [BMI] 34.0-34.9, adult; Z88.0 Allergy status to penicillin; Z88.2 Allergy status to sulfonamides; Z20.822 Contact with and (suspected) exposure to COVID-19
CPT/HCPCS: 0223U; 36415; 50435; 74176; 74470; 80048; 81001; 83605; 85025; 85610; 85730; 87040; 87071; 87086; 87186; 87205; 94799; 99284; C1729; C1769; J1100; J1200; J1650; J2001; J2185; J2270; J2405; J7050; Q9967

== ENCOUNTER 2022-12-10 13:26 | Emergency (ER) | payer OTHER ==
[~2022-12-10] VITALS: Ht 152.4 cm; Wt 84.8 kg
[~2022-12-10 13:26] MED LIST changes: +NEURONTIN400 MG PO; +ULTRAM 50MG50 MG PO
[2022-12-10 13:50] VITALS: O2SAT 100
== END 2022-12-10 14:20 | disposition home or self-care (01) ==
LOC: ER 13:52
DX: Z47.89 Encounter for other orthopedic aftercare (principal); S52.592D Other fractures of lower end of left radius, subsequent encounter for closed fracture with routine healing; S52.612D Displaced fracture of left ulna styloid process, subsequent encounter for closed fracture with routine healing; Z85.41 Personal history of malignant neoplasm of cervix uteri
CPT/HCPCS: 99284

== ENCOUNTER 2023-08-31 15:35 | Inpatient (IN) | payer OTHER ==
[~2023-08-31] VITALS: Ht 152.4 cm; Wt 83.9 kg
[~2023-08-31 15:35] MED LIST changes: +DOXYCYCLINE HY100 M3 PO
[2023-08-31 17:02] LABS: BILIRUBIN,URINE NEGATIVE (NEGATIVE); CLARITY,URINE SL CLOUDY (CLEAR); COLOR,URINE YELLOW (YELLOW); GLUCOSE, URINE NEGATIVE (NEGATIVE); KETONES,URINE NEGATIVE (NEGATIVE); LEUKOCYTE ESTERASE ,URINE LARGE (NEGATIVE); NITRITE,URINE POSITIVE (NEGATIVE); PH,URINE 6.5 (5 - 7); PROTEIN,URINE DIPSTICK 1+ (NEGATIVE); URINE UROBILINOGEN 0.2 mg/dL (0.2 - 1)
[2023-08-31 17:05] LABS: BACTERIA,URINE MODERATE /HPF; EPITHELIAL CELLS,URINE RARE /LPF; WBC,URINE (MAN) >50 /HPF (0-5)
[2023-08-31 17:52] LABS: BASOPHILS % 0.3 % (0.0-1.0); EOSINOPHILS % 0.1 % (0.0-6.0); HEMATOCRIT 38.8 % (34.2-44.1); HEMOGLOBIN 12.3 g/dL (12.0-16.0); LYMPHOCYTES # (AUTO) 1.3 (1.0-3.2); LYMPHOCYTES % 9.8 % (18.0-39.1); MEAN CORPUSCULAR HGB CONC 31.7 g/dL (31-35); MEAN CORPUSCULAR VOLUME 88.2 fL (81-99); MONOCYTES # (AUTO) 0.8 (0.2-0.8); MONOCYTES % 6.3 % (4.4-11.3); NEUTROPHILS # (AUTO) 10.6 (2.1-6.9); NEUTROPHILS % 82.8 % (38.7-80.0); PLATELET COUNT 217 x10e3/uL (140-360); RED CELL DISTRIBUTION WIDTH 14.5 % (11.7-14.4); WHITE BLOOD COUNT 12.81 x10e3/uL (4.8-10.8)
[2023-08-31 18:11] LABS: ALBUMIN 3.8 g/dL (3.5-5.0); ALBUMIN/GLOBULIN RATIO 0.7 (0.8-2.0); BILIRUBIN,TOTAL 0.8 mg/dL (0.2-1.2); CALCIUM 9.7 mg/dL (8.4-10.2); CREATININE, SERUM 1.04 mg/dL (0.57-1.11); TOTAL PROTEIN 9.1 g/dL (6.5-8.1)
[2023-08-31 18:12] VITALS: PULSE 93; RESP 18; TEMP 99.5
[2023-08-31] MEDS ORDERED: ONDANSETRON HCL INJ 2MG/ML 2ML 2 MG/ML VIAL ONE (18:31)
[2023-08-31] MEDS: MEROPENEM 1 GM in SODIUM CHLORIDE 0.9% 100 ML IV SCH (18:36)
[2023-08-31] MEDS: ONDANSETRON HCL INJ 2MG/ML 2ML 2 MG/ML VIAL IV PRN (18:38)
[2023-08-31] MEDS: Morphine 4mg INJECTION 4 MG/ML INJ IV PRN (18:38)
[2023-08-31] MEDS: SODIUM CHLORIDE 0.9% 1000ML 1,000 ML IV ONE (18:38)
[2023-08-31] MEDS: DIPHENHYDRAMINE HCL INJ 50 MG/ML VIAL IV ONE (19:59)
[2023-08-31 20:00] VITALS: BP 113/73; PULSE 88; RESP 18; TEMP 99.3; O2SAT 99
[2023-08-31 20:41] VITALS: BP 113/73; PULSE 88; RESP 18; TEMP 99.3; O2SAT 98
[2023-08-31 22:16] VITALS: BP 137/94; PULSE 88; RESP 18; TEMP 99.3; O2SAT 98
[2023-09-01] VITALS (7 sets, daily range): BP systolic 111–139; BP diastolic 70–85; PULSE 84–103; RESP 18–19; TEMP 98.6–98.8; O2SAT 98–100
[2023-09-01 05:28] LABS: BASOPHILS # (AUTO) 0.1 (0.0-0.1); BASOPHILS % 0.5 % (0.0-1.0); EOSINOPHILS # (AUTO) 0.1 (0.0-0.4); EOSINOPHILS % 0.5 % (0.0-6.0); HEMATOCRIT 32.6 % (34.2-44.1); HEMOGLOBIN 10.2 g/dL (12.0-16.0); LYMPHOCYTES # (AUTO) 1.7 (1.0-3.2); LYMPHOCYTES % 16.4 % (18.0-39.1); MEAN CORPUSCULAR HEMOGLOBIN 27.9 pg (28-32); MEAN CORPUSCULAR HGB CONC 31.3 g/dL (31-35); MEAN CORPUSCULAR VOLUME 89.1 fL (81-99); MONOCYTES # (AUTO) 0.9 (0.2-0.8); MONOCYTES % 8.8 % (4.4-11.3); NEUTROPHILS # (AUTO) 7.6 (2.1-6.9); NEUTROPHILS % 72.9 % (38.7-80.0); PLATELET COUNT 171 x10e3/uL (140-360); RED BLOOD COUNT 3.66 x10e6/uL (3.6-5.1); RED CELL DISTRIBUTION WIDTH 14.4 % (11.7-14.4); WHITE BLOOD COUNT 10.42 x10e3/uL (4.8-10.8)
[2023-09-01 06:19] LABS: ALBUMIN 2.9 g/dL (3.5-5.0); ALBUMIN/GLOBULIN RATIO 0.7 (0.8-2.0); ANION GAP 12.7 mmol/L (8-16); BILIRUBIN,TOTAL 0.6 mg/dL (0.2-1.2); CALCIUM 8.5 mg/dL (8.4-10.2); CREATININE, SERUM 0.84 mg/dL (0.57-1.11); POTASSIUM 3.7 mmol/L (3.5-5.1); TOTAL PROTEIN 7.1 g/dL (6.5-8.1)
[2023-09-01] MEDS: SODIUM CHLORIDE 0.9% 1000ML 1,000 ML IV SCH (13:30)
[2023-09-01 13:49] LABS: CHOL/HDL RATIO 2.6 (3.0-3.6)
[2023-09-01] MEDS ORDERED: ACETAMINOPHEN/CODEINE 300MG - 30MG TAB PO PRN (19:30)
[2023-09-02 00:37] VITALS: BP 115/78; PULSE 107; RESP 18; TEMP 98.5; O2SAT 99
[2023-09-02 04:00] VITALS: BP 122/83; PULSE 85; RESP 18; TEMP 97.9; O2SAT 100
[2023-09-02 06:02] LABS: BASOPHILS % 0.5 % (0.0-1.0); EOSINOPHILS # (AUTO) 0.2 (0.0-0.4); EOSINOPHILS % 1.8 % (0.0-6.0); HEMATOCRIT 34.1 % (34.2-44.1); HEMOGLOBIN 10.5 g/dL (12.0-16.0); LYMPHOCYTES % 23.4 % (18.0-39.1); MEAN CORPUSCULAR HEMOGLOBIN 27.7 pg (28-32); MEAN CORPUSCULAR HGB CONC 30.8 g/dL (31-35); MONOCYTES # (AUTO) 0.8 (0.2-0.8); MONOCYTES % 9.6 % (4.4-11.3); NEUTROPHILS # (AUTO) 5.4 (2.1-6.9); NEUTROPHILS % 63.8 % (38.7-80.0); PLATELET COUNT 196 x10e3/uL (140-360); RED BLOOD COUNT 3.79 x10e6/uL (3.6-5.1); RED CELL DISTRIBUTION WIDTH 14.2 % (11.7-14.4)
[2023-09-02 06:22] LABS: ANION GAP 13.8 mmol/L (8-16); CALCIUM 8.7 mg/dL (8.4-10.2); CREATININE, SERUM 0.79 mg/dL (0.57-1.11); MAGNESIUM 1.9 MG/DL (1.3-2.1); PHOSPHORUS 3.2 MG/DL (2.3-4.7); POTASSIUM 3.8 mmol/L (3.5-5.1)
[2023-09-02] MEDS: CEFTRIAXONE 2 GM in SODIUM CHLORIDE 0.9% 100 ML IV SCH (08:59)
[2023-09-02 20:00] VITALS: BP 143/78; PULSE 81; RESP 18; TEMP 97.9; O2SAT 100
[2023-09-02 21:00] VITALS: BP 143/78; PULSE 81; RESP 18; TEMP 97.4; O2SAT 100
[2023-09-03] VITALS: BP 152/87; PULSE 81; RESP 18; TEMP 98.4; O2SAT 100
[2023-09-03 04:00] VITALS: BP 135/75; PULSE 69; RESP 17; TEMP 98.3; O2SAT 100
[2023-09-03 06:30] LABS: BASOPHILS # (AUTO) 0.1 (0.0-0.1); BASOPHILS % 0.6 % (0.0-1.0); EOSINOPHILS # (AUTO) 0.2 (0.0-0.4); EOSINOPHILS % 2.1 % (0.0-6.0); HEMATOCRIT 33.1 % (34.2-44.1); HEMOGLOBIN 10.4 g/dL (12.0-16.0); LYMPHOCYTES # (AUTO) 2.2 (1.0-3.2); LYMPHOCYTES % 26.4 % (18.0-39.1); MEAN CORPUSCULAR HEMOGLOBIN 28.1 pg (28-32); MEAN CORPUSCULAR HGB CONC 31.4 g/dL (31-35); MEAN CORPUSCULAR VOLUME 89.5 fL (81-99); MONOCYTES # (AUTO) 0.7 (0.2-0.8); MONOCYTES % 8.1 % (4.4-11.3); NEUTROPHILS # (AUTO) 5.1 (2.1-6.9); NEUTROPHILS % 61.8 % (38.7-80.0); PLATELET COUNT 251 x10e3/uL (140-360); RED CELL DISTRIBUTION WIDTH 13.9 % (11.7-14.4); WHITE BLOOD COUNT 8.27 x10e3/uL (4.8-10.8)
[2023-09-03 06:50] LABS: ANION GAP 12.9 mmol/L (8-16); CALCIUM 8.8 mg/dL (8.4-10.2); CREATININE, SERUM 0.79 mg/dL (0.57-1.11); MAGNESIUM 1.7 MG/DL (1.3-2.1); POTASSIUM 3.9 mmol/L (3.5-5.1)
[2023-09-03 08:00] VITALS: BP 146/86; PULSE 74; RESP 20; TEMP 98.5; O2SAT 100
== END 2023-09-03 12:04 | disposition home or self-care (01) | DRG 872 ==
LOC: ER 18:06 → ERHOLD 18:26 → MED/SURG2 20:08
PROVIDERS: ADMIT Internal Medicine; ATTEND Internal Medicine
PROC: 3E0333Z Introduction of Anti-inflammatory into Peripheral Vein, Percutaneous Approach (ICD-10-PCS; principal; 2023-09-01)
DX: A41.50 Gram-negative sepsis, unspecified (principal); E87.1 Hypo-osmolality and hyponatremia; N13.8 Other obstructive and reflux uropathy; E86.0 Dehydration; R73.03 Prediabetes; E66.9 Obesity, unspecified; Z68.36 Body mass index [BMI] 36.0-36.9, adult; F41.9 Anxiety disorder, unspecified; F32.A Depression, unspecified; Z11.52 Encounter for screening for COVID-19; Z96.0 Presence of urogenital implants; Z85.41 Personal history of malignant neoplasm of cervix uteri; Z88.0 Allergy status to penicillin; Z88.2 Allergy status to sulfonamides
CPT/HCPCS: 36415; 74176; 80048; 80053; 80061; 81001; 83036; 83605; 83735; 84100; 85025; 87040; 87071; 87086; 87186; 87205; 99284; J0696; J1200; J2185; J2270; J2405; J7030; J7050; U0002

== ENCOUNTER → 2023-09-28 | Outpatient (REF) | payer OTHER ==
[~2023-09-28] MED LIST changes: +FENTANYL CITRATE/PF 100MCG/2 ML INJ ONE; +IOPAMIDOL 370 MG/ML 100 ML INFUS..BTL INJ ONE
== END ==
LOC: DX 09:24
PROVIDERS: ATTEND Urology
DX: N13.30 Unspecified hydronephrosis (principal)
CPT/HCPCS: 50435; C1729 ×2; C1769; J3010; Q9967

== ENCOUNTER → 2023-11-26 | Outpatient (REF) | payer OTHER ==
[~2023-11-26] MED LIST changes: +LIDOCAINE HCL 1% LOCAL INJ 20 ML VIAL ONE; +SODIUM CHLORIDE 0.9% 500ML 500 ML ONE
== END ==
LOC: DX 10:55
PROVIDERS: ATTEND Urology
DX: N13.30 Unspecified hydronephrosis (principal)
CPT/HCPCS: 50435; C1729; J2003; J3010; J7040; Q9967

== ENCOUNTER 2023-11-27 08:02 | Emergency (ER) | payer OTHER ==
[~2023-11-27] VITALS: Ht 167.6 cm; Wt 83.9 kg
[~2023-11-27 08:02] MED LIST changes: -FENTANYL CITRATE/PF 100MCG/2 ML INJ ONE; -IOPAMIDOL 370 MG/ML 100 ML INFUS..BTL INJ ONE; -LIDOCAINE HCL 1% LOCAL INJ 20 ML VIAL ONE; -SODIUM CHLORIDE 0.9% 500ML 500 ML ONE
[2023-11-27 08:44] VITALS: PULSE 83; RESP 17; TEMP 98.4; O2SAT 100
[2023-11-27] MEDS: KETOROLAC TROMETHAMINE 60 MG/2 ML VIAL IM ONE (10:25)
[2023-11-27] MEDS: ONDANSETRON HCL 4 MG ORAL DISINTEGRATING TAB PO ONE (10:25)
[2023-11-27] MEDS ORDERED: LIDOCAINE HCL 1% LOCAL INJ 20 ML VIAL ONE (13:29)
[2023-11-27] MEDS ORDERED: SODIUM CHLORIDE 0.9% 500ML 500 ML ONE (13:30)
[2023-11-27] MEDS ORDERED: IOPAMIDOL 370 MG/ML 100 ML INFUS..BTL INJ ONE (13:30)
== END 2023-11-27 15:25 | disposition home or self-care (01) ==
LOC: ER 08:20
DX: Z43.6 Encounter for attention to other artificial openings of urinary tract (principal); I10 Essential (primary) hypertension; F41.9 Anxiety disorder, unspecified; F32.A Depression, unspecified; Z85.41 Personal history of malignant neoplasm of cervix uteri
CPT/HCPCS: 87086; 87186; 99283; J1885; J2003; J7040; Q0162; Q9967

== ENCOUNTER 2023-12-13 12:43 | Emergency (ER) | payer OTHER ==
[~2023-12-13] VITALS: Ht 167.6 cm; Wt 83.9 kg
[2023-12-13 12:45] VITALS: TEMP 98.5
[2023-12-13 14:00] VITALS: PULSE 78; RESP 16
[2023-12-13 14:02] LABS: BASOPHILS % 0.4 % (0.0-1.0); EOSINOPHILS # (AUTO) 0.1 (0.0-0.4); EOSINOPHILS % 0.8 % (0.0-6.0); HEMATOCRIT 36.9 % (34.2-44.1); LYMPHOCYTES # (AUTO) 1.5 (1.0-3.2); LYMPHOCYTES % 17.7 % (18.0-39.1); MEAN CORPUSCULAR HEMOGLOBIN 27.4 pg (28-32); MEAN CORPUSCULAR HGB CONC 29.8 g/dL (31-35); MEAN CORPUSCULAR VOLUME 91.8 fL (81-99); MONOCYTES # (AUTO) 0.4 (0.2-0.8); MONOCYTES % 4.4 % (4.4-11.3); NEUTROPHILS # (AUTO) 6.4 (2.1-6.9); NEUTROPHILS % 76.5 % (38.7-80.0); PLATELET COUNT 269 x10e3/uL (140-360); RED BLOOD COUNT 4.02 x10e6/uL (3.6-5.1); RED CELL DISTRIBUTION WIDTH 14.5 % (11.7-14.4); WHITE BLOOD COUNT 8.32 x10e3/uL (4.8-10.8)
[2023-12-13 14:20] LABS: ANION GAP 15.4 mmol/L (8-16); CALCIUM 9.2 mg/dL (8.4-10.2); CREATININE, SERUM 1.26 mg/dL (0.57-1.11)
[2023-12-13 14:23] LABS: POTASSIUM 3.4 mmol/L (3.5-5.1)
[2023-12-13 15:28] VITALS: BP 134/82; PULSE 78; RESP 16; O2SAT 100
== END 2023-12-13 15:00 | disposition home or self-care (01) ==
LOC: ER 13:02
DX: R53.1 Weakness (principal); N28.9 Disorder of kidney and ureter, unspecified; I10 Essential (primary) hypertension; F41.9 Anxiety disorder, unspecified; Z93.6 Other artificial openings of urinary tract status; Z85.41 Personal history of malignant neoplasm of cervix uteri
CPT/HCPCS: 36415; 80048; 85025; 99283

== ENCOUNTER 2024-01-10 03:37 | Emergency (ER) | payer OTHER ==
[~2024-01-10] VITALS: Ht 152.4 cm; Wt 83.9 kg
[2024-01-10 03:45] VITALS: TEMP 98.4
[2024-01-10 04:22] LABS: BASOPHILS % 0.5 % (0.0-1.0); EOSINOPHILS % 0.7 % (0.0-6.0); HEMATOCRIT 39.6 % (34.2-44.1); HEMOGLOBIN 11.9 g/dL (12.0-16.0); LYMPHOCYTES # (AUTO) 1.7 (1.0-3.2); LYMPHOCYTES % 40.2 % (18.0-39.1); MEAN CORPUSCULAR HEMOGLOBIN 27.2 pg (28-32); MEAN CORPUSCULAR HGB CONC 30.1 g/dL (31-35); MEAN CORPUSCULAR VOLUME 90.6 fL (81-99); MONOCYTES # (AUTO) 0.4 (0.2-0.8); MONOCYTES % 9.9 % (4.4-11.3); NEUTROPHILS # (AUTO) 2.1 (2.1-6.9); NEUTROPHILS % 48.2 % (38.7-80.0); PLATELET COUNT 224 x10e3/uL (140-360); RED BLOOD COUNT 4.37 x10e6/uL (3.6-5.1); RED CELL DISTRIBUTION WIDTH 14.2 % (11.7-14.4); WHITE BLOOD COUNT 4.25 x10e3/uL (4.8-10.8)
[2024-01-10 04:35] LABS: ALBUMIN 3.6 g/dL (3.5-5.0); ALBUMIN/GLOBULIN RATIO 0.8 (0.8-2.0); ANION GAP 17.2 mmol/L (8-16); BILIRUBIN,TOTAL 0.3 mg/dL (0.2-1.2); CALCIUM 9.5 mg/dL (8.4-10.2); TOTAL PROTEIN 8.4 g/dL (6.5-8.1)
[2024-01-10 05:02] LABS: POTASSIUM 3.2 mmol/L (3.5-5.1)
[2024-01-10 05:55] VITALS: PULSE 87; RESP 19; O2SAT 100
== END 2024-01-10 06:00 | disposition home or self-care (01) ==
LOC: ER 03:42
DX: Z43.6 Encounter for attention to other artificial openings of urinary tract (principal); K80.20 Calculus of gallbladder without cholecystitis without obstruction; R11.0 Nausea; I10 Essential (primary) hypertension; F41.9 Anxiety disorder, unspecified; F32.A Depression, unspecified; Z85.41 Personal history of malignant neoplasm of cervix uteri
CPT/HCPCS: 36415; 74176; 80053; 85025; 99283

== ENCOUNTER → 2024-01-19 | Outpatient (REF) | payer OTHER | LOC: US 14:14 | PROVIDERS: ATTEND Urology | DX: D64.9 Anemia, unspecified (principal) | CPT/HCPCS: 76770; 76857 ==

== ENCOUNTER 2024-01-25 17:12 | Inpatient (IN) | payer OTHER ==
[~2024-01-25] VITALS: Ht 167.6 cm; Wt 83.9 kg
[2024-01-25 19:38] LABS: BASOPHILS % 0.4 % (0.0-1.0); EOSINOPHILS # (AUTO) 0.1 (0.0-0.4); EOSINOPHILS % 0.5 % (0.0-6.0); HEMATOCRIT 35.7 % (34.2-44.1); HEMOGLOBIN 10.7 g/dL (12.0-16.0); LYMPHOCYTES # (AUTO) 1.8 (1.0-3.2); MEAN CORPUSCULAR HEMOGLOBIN 27.5 pg (28-32); MEAN CORPUSCULAR VOLUME 91.8 fL (81-99); MONOCYTES # (AUTO) 0.6 (0.2-0.8); MONOCYTES % 5.9 % (4.4-11.3); NEUTROPHILS # (AUTO) 7.1 (2.1-6.9); PLATELET COUNT 263 x10e3/uL (140-360); RED BLOOD COUNT 3.89 x10e6/uL (3.6-5.1); RED CELL DISTRIBUTION WIDTH 14.6 % (11.7-14.4); WHITE BLOOD COUNT 9.65 x10e3/uL (4.8-10.8)
[2024-01-25 19:42] LABS: INR 0.91; PROTHROMBIN TIME 12.8 seconds (11.9-14.5)
[2024-01-25 19:43] LABS: PARTIAL THROMBOPLASTIN TIME 26.5 seconds (23.8-35.5)
[2024-01-25 19:52] LABS: ALBUMIN 3.7 g/dL (3.5-5.0); ALBUMIN/GLOBULIN RATIO 0.8 (0.8-2.0); ANION GAP 17.3 mmol/L (8-16); BILIRUBIN,TOTAL 0.3 mg/dL (0.2-1.2); CALCIUM 9.6 mg/dL (8.4-10.2); CREATININE, SERUM 1.22 mg/dL (0.57-1.11); TOTAL PROTEIN 8.3 g/dL (6.5-8.1)
[2024-01-25 19:53] LABS: POTASSIUM 3.3 mmol/L (3.5-5.1)
[2024-01-25] MEDS: INSULIN REGULAR, HUMAN 100 UNIT/1 ML SQ SCH (21:00)
[2024-01-25] MEDS ORDERED: DEXTROSE 50% SYRINGE 50 ML IV PRN (21:00)
[2024-01-25] MEDS: SODIUM CHLORIDE 0.9% 1000ML 1,000 ML IV SCH (21:37)
[2024-01-25] MEDS: Morphine 4mg INJECTION 4 MG/ML INJ IV PRN (21:38)
[2024-01-25] MEDS: ONDANSETRON HCL INJ 2MG/ML 2ML 2 MG/ML VIAL IV PRN (21:38)
[2024-01-25] MEDS: DIPHENHYDRAMINE HCL INJ 50 MG/ML VIAL IV PRN (21:54)
[2024-01-25 22:00] VITALS: PULSE 71; RESP 16; O2SAT 99
[2024-01-26] VITALS (7 sets, daily range): BP systolic 134–151; BP diastolic 65–93; PULSE 75–98; RESP 16–20; TEMP 96.7–98.2; O2SAT 96–99
[2024-01-26 08:10] LABS: BASOPHILS % 0.6 % (0.0-1.0); EOSINOPHILS # (AUTO) 0.1 (0.0-0.4); HEMATOCRIT 35.6 % (34.2-44.1); HEMOGLOBIN 10.5 g/dL (12.0-16.0); LYMPHOCYTES # (AUTO) 2.2 (1.0-3.2); LYMPHOCYTES % 32.4 % (18.0-39.1); MEAN CORPUSCULAR HEMOGLOBIN 27.6 pg (28-32); MEAN CORPUSCULAR HGB CONC 29.5 g/dL (31-35); MEAN CORPUSCULAR VOLUME 93.7 fL (81-99); MONOCYTES # (AUTO) 0.6 (0.2-0.8); MONOCYTES % 8.5 % (4.4-11.3); NEUTROPHILS # (AUTO) 3.9 (2.1-6.9); NEUTROPHILS % 56.4 % (38.7-80.0); PLATELET COUNT 231 x10e3/uL (140-360); RED CELL DISTRIBUTION WIDTH 14.6 % (11.7-14.4); WHITE BLOOD COUNT 6.91 x10e3/uL (4.8-10.8)
[2024-01-26 08:44] LABS: ALBUMIN 3.2 g/dL (3.5-5.0); ALBUMIN/GLOBULIN RATIO 0.8 (0.8-2.0); ANION GAP 13.4 mmol/L (8-16); BILIRUBIN,TOTAL 0.5 mg/dL (0.2-1.2); CREATININE, SERUM 1.08 mg/dL (0.57-1.11); TOTAL PROTEIN 7.4 g/dL (6.5-8.1)
[2024-01-26 08:49] LABS: POTASSIUM 3.4 mmol/L (3.5-5.1)
[2024-01-26] MEDS ORDERED: ACETAMINOPHEN 325 MG TAB PO PRN (09:45)
[2024-01-26] MEDS ORDERED: IOPAMIDOL 370 MG/ML 100 ML INFUS..BTL INJ ONE ×2 (09:53→10:49)
[2024-01-26] MEDS ORDERED: LIDOCAINE HCL 1% 30ML-PF VIAL ONE (10:49)
[2024-01-26] MEDS ORDERED: SODIUM CHLORIDE 0.9% 250ML 250 ML ONE (10:49)
[2024-01-26] MEDS ORDERED: FENTANYL CITRATE/PF 100MCG/2 ML INJ ONE (11:18)
[2024-01-26] MEDS: SODIUM CHLORIDE 0.9% 1000ML 1,000 ML IV SCH (12:22)
[2024-01-26] MEDS ORDERED: AMLODIPINE BESYL5 MG PO (14:10)
[2024-01-26] MEDS ORDERED: tylenol #3 PO (14:10)
[2024-01-27] VITALS (10 sets, daily range): BP systolic 116–157; BP diastolic 60–88; PULSE 65–86; RESP 16–19; TEMP 97–98.8; O2SAT 96–100
[2024-01-27] MEDS: HYDROCODONE/APAP 10MG-325MG TAB PO PRN (00:09)
[2024-01-27] MEDS ORDERED: POTASSIUM CHLORIDE 10MEQ EA PO ONE (18:15)
[2024-01-27] MEDS: POTASSIUM CHLORIDE 10MEQ EA PO ONE (18:30)
[2024-01-28 03:16] VITALS: BP 151/79; PULSE 82; RESP 18; TEMP 97.6; O2SAT 99
[2024-01-28 08:11] VITALS: BP 113/71; PULSE 72; RESP 18; TEMP 97.3; O2SAT 100
[2024-01-28 09:00] VITALS: BP 113/71; PULSE 72; RESP 18; TEMP 97.3; O2SAT 100
[2024-01-28 11:59] VITALS: BP 154/90; PULSE 74; RESP 18; TEMP 98.2; O2SAT 98
== END 2024-01-28 12:54 | disposition home or self-care (01) | DRG 699 ==
LOC: ER 18:57 → ERHOLD 20:55 → OBSVTOIN 01-26 09:43 → MED/SURG2 01-26 13:09
PROVIDERS: ADMIT Internal Medicine; ATTEND Internal Medicine
PROC: 0T25X0Z Change Drainage Device in Kidney, External Approach (ICD-10-PCS; principal; 2024-01-26)
PROC: 0T25X0Z Change Drainage Device in Kidney, External Approach (ICD-10-PCS; 2024-01-26)
DX: T83.512A Infection and inflammatory reaction due to nephrostomy catheter, initial encounter (principal); B37.49 Other urogenital candidiasis; N13.6 Pyonephrosis; Z43.6 Encounter for attention to other artificial openings of urinary tract; N31.9 Neuromuscular dysfunction of bladder, unspecified; N95.2 Postmenopausal atrophic vaginitis; N18.9 Chronic kidney disease, unspecified; D64.9 Anemia, unspecified; E66.9 Obesity, unspecified; Z68.29 Body mass index [BMI] 29.0-29.9, adult; Y92.009 Unspecified place in unspecified non-institutional (private) residence as the place of occurrence of the external cause; Z88.1 Allergy status to other antibiotic agents; Z88.0 Allergy status to penicillin; Z88.2 Allergy status to sulfonamides
CPT/HCPCS: 36415; 50435; 74177; 74470; 80053; 82948; 85025; 85610; 85730; 87086; 94799; 99284; C1729; G0378; J1200; J2003; J2270; J2405; J7030; J7050; Q9967

== ENCOUNTER 2024-05-01 15:42 | Inpatient (IN) | payer MEDICARE, OTHER ==
[~2024-05-01] VITALS: Ht 152.4 cm; Wt 83.9 kg
[2024-05-01 15:42] VITALS: TEMP 97.5
[~2024-05-01 15:42] MED LIST changes: +AMLODIPINE BESYL5 MG PO; +tylenol #3 PO
[2024-05-01 17:01] LABS: BASOPHILS % 0.5 % (0.0-1.0); EOSINOPHILS # (AUTO) 0.1 (0.0-0.4); EOSINOPHILS % 1.2 % (0.0-6.0); HEMATOCRIT 36.3 % (34.2-44.1); HEMOGLOBIN 11.7 g/dL (12.0-16.0); LYMPHOCYTES # (AUTO) 1.9 (1.0-3.2); LYMPHOCYTES % 25.6 % (18.0-39.1); MEAN CORPUSCULAR HEMOGLOBIN 28.3 pg (28-32); MEAN CORPUSCULAR HGB CONC 32.2 g/dL (31-35); MEAN CORPUSCULAR VOLUME 87.9 fL (81-99); MONOCYTES # (AUTO) 0.3 (0.2-0.8); MONOCYTES % 4.5 % (4.4-11.3); NEUTROPHILS % 67.9 % (38.7-80.0); PLATELET COUNT 245 x10e3/uL (140-360); RED BLOOD COUNT 4.13 x10e6/uL (3.6-5.1); RED CELL DISTRIBUTION WIDTH 13.9 % (11.7-14.4); WHITE BLOOD COUNT 7.39 x10e3/uL (4.8-10.8)
[2024-05-01 17:05] VITALS: PULSE 74; RESP 20; O2SAT 97
[2024-05-01] MEDS: SODIUM CHLORIDE 0.9% 1000ML 1,000 ML IV SCH (17:05)
[2024-05-01] MEDS: Morphine 4mg INJECTION 4 MG/ML INJ IV PRN (17:06)
[2024-05-01] MEDS: ONDANSETRON HCL INJ 2MG/ML 2ML 2 MG/ML VIAL IV PRN (17:06)
[2024-05-01 17:07] LABS: CLARITY,URINE HAZY (CLEAR); COLOR,URINE YELLOW (YELLOW); LEUKOCYTE ESTERASE ,URINE LARGE (NEGATIVE); NITRITE,URINE POSITIVE (NEGATIVE); PH,URINE 7 (5 - 7)
[2024-05-01 17:08] LABS: BACTERIA,URINE MODERATE /HPF; BILIRUBIN,URINE NEGATIVE (NEGATIVE); EPITHELIAL CELLS,URINE FEW /LPF; GLUCOSE, URINE NEGATIVE (NEGATIVE); KETONES,URINE NEGATIVE (NEGATIVE); MUCUS,URINE FEW; PROTEIN,URINE DIPSTICK 2+ (NEGATIVE); RBC,URINE >50 /HPF (0-5); URINE UROBILINOGEN 0.2 mg/dL (0.2 - 1); WBC,URINE (MAN) >50 /HPF (0-5)
[2024-05-01 17:13] VITALS: PULSE 69; RESP 16
[2024-05-01 17:25] LABS: ALBUMIN 3.7 g/dL (3.5-5.0); ALBUMIN/GLOBULIN RATIO 0.8 (0.8-2.0); ANION GAP 15.8 mmol/L (8-16); BILIRUBIN,TOTAL 0.5 mg/dL (0.2-1.2); CALCIUM 9.5 mg/dL (8.4-10.2); CREATININE, SERUM 0.94 mg/dL (0.57-1.11); POTASSIUM 3.8 mmol/L (3.5-5.1); TOTAL PROTEIN 8.1 g/dL (6.5-8.1)
[2024-05-01] MEDS: FLUCONAZOLE 200 MG/100 ML 100 ML IV SCH (18:04)
[2024-05-01 20:00] VITALS: BP 134/72; PULSE 69; RESP 16; TEMP 98.4; O2SAT 100
[2024-05-01 20:15] VITALS: PULSE 69; RESP 20; O2SAT 100
[2024-05-01 21:00] VITALS: BP 134/72; PULSE 69; RESP 16; TEMP 98.4; O2SAT 100
[2024-05-02] VITALS (11 sets, daily range): BP systolic 114–148; BP diastolic 56–83; PULSE 63–78; RESP 17–20; TEMP 97.6–98.1; O2SAT 96–100
[2024-05-02 05:32] LABS: BASOPHILS % 0.7 % (0.0-1.0); EOSINOPHILS # (AUTO) 0.1 (0.0-0.4); EOSINOPHILS % 2.6 % (0.0-6.0); HEMATOCRIT 33.4 % (34.2-44.1); HEMOGLOBIN 10.2 g/dL (12.0-16.0); LYMPHOCYTES # (AUTO) 1.8 (1.0-3.2); LYMPHOCYTES % 32.4 % (18.0-39.1); MEAN CORPUSCULAR HEMOGLOBIN 27.9 pg (28-32); MEAN CORPUSCULAR HGB CONC 30.5 g/dL (31-35); MEAN CORPUSCULAR VOLUME 91.3 fL (81-99); MONOCYTES # (AUTO) 0.5 (0.2-0.8); MONOCYTES % 8.6 % (4.4-11.3); NEUTROPHILS # (AUTO) 3.1 (2.1-6.9); NEUTROPHILS % 55.5 % (38.7-80.0); PLATELET COUNT 200 x10e3/uL (140-360); RED BLOOD COUNT 3.66 x10e6/uL (3.6-5.1); RED CELL DISTRIBUTION WIDTH 13.8 % (11.7-14.4); WHITE BLOOD COUNT 5.49 x10e3/uL (4.8-10.8)
[2024-05-02 06:10] LABS: ANION GAP 12.9 mmol/L (8-16); CALCIUM 8.5 mg/dL (8.4-10.2); CREATININE, SERUM 0.8 mg/dL (0.57-1.11); POTASSIUM 3.9 mmol/L (3.5-5.1)
[2024-05-02] MEDS: SENNA-S TABLET PO SCH (10:00)
[2024-05-02] MEDS ORDERED: HYDRALAZINE HCL 20 MG/ML VIAL IV PRN (10:00)
[2024-05-02] MEDS: BISACODYL 10 MG SUPP PR ONE (12:05)
[2024-05-02 12:17] LABS: INR 0.91; PROTHROMBIN TIME 12.8 seconds (11.9-14.5)
[2024-05-02] MEDS ORDERED: LIDOCAINE HCL 1% 30ML-PF VIAL ONE (12:21)
[2024-05-02] MEDS ORDERED: IOPAMIDOL 370 MG/ML 100 ML INFUS..BTL INJ ONE (12:21)
[2024-05-02] MEDS ORDERED: SODIUM CHLORIDE 0.9% 500ML 500 ML ONE (12:21)
[2024-05-02] MEDS ORDERED: FENTANYL CITRATE/PF 100MCG/2 ML INJ ONE (12:47)
[2024-05-02] MEDS: HYDROCODONE/APAP 10MG-325MG TAB PO PRN (23:46)
[2024-05-03] VITALS (7 sets, daily range): BP systolic 132–150; BP diastolic 74–86; PULSE 60–73; RESP 17–20; TEMP 97.5–98.6; O2SAT 100
[2024-05-03 05:28] LABS: BASOPHILS % 0.5 % (0.0-1.0); EOSINOPHILS # (AUTO) 0.2 (0.0-0.4); HEMATOCRIT 34.4 % (34.2-44.1); HEMOGLOBIN 10.7 g/dL (12.0-16.0); LYMPHOCYTES % 26.5 % (18.0-39.1); MEAN CORPUSCULAR HGB CONC 31.1 g/dL (31-35); MEAN CORPUSCULAR VOLUME 90.1 fL (81-99); MONOCYTES # (AUTO) 0.6 (0.2-0.8); MONOCYTES % 7.5 % (4.4-11.3); NEUTROPHILS # (AUTO) 4.7 (2.1-6.9); NEUTROPHILS % 63.1 % (38.7-80.0); PLATELET COUNT 208 x10e3/uL (140-360); RED BLOOD COUNT 3.82 x10e6/uL (3.6-5.1); RED CELL DISTRIBUTION WIDTH 13.7 % (11.7-14.4); WHITE BLOOD COUNT 7.43 x10e3/uL (4.8-10.8)
[2024-05-03 06:06] LABS: ANION GAP 15.6 mmol/L (8-16); CALCIUM 8.6 mg/dL (8.4-10.2); CREATININE, SERUM 0.75 mg/dL (0.57-1.11); POTASSIUM 3.6 mmol/L (3.5-5.1)
[2024-05-03] MEDS: AMLODIPINE BESYLATE 5 MG TAB PO SCH (09:30)
[2024-05-03] MEDS: BUSPIRONE HCL 10 MG TABLET PO SCH (09:31)
[2024-05-04] VITALS (8 sets, daily range): BP systolic 131–152; BP diastolic 71–101; PULSE 66–82; RESP 16–19; TEMP 97.5–98.2; O2SAT 99–100
[2024-05-04] MEDS: LINEZOLID 600 MG/D5W 300ML 300 ML IV SCH (21:07)
[2024-05-04] MEDS: ACETAMINOPHEN 325 MG TAB PO PRN (23:39)
[2024-05-05 03:30] VITALS: BP 137/86; PULSE 74; RESP 18; TEMP 97.6; O2SAT 99
[2024-05-05 07:40] VITALS: BP 142/75; PULSE 70; RESP 17; TEMP 98.6; O2SAT 100
[2024-05-05] MEDS ORDERED: ONDANSETRON HCL 4 MG ORAL DISINTEGRATING TAB PO PRN (11:15)
[2024-05-05 11:25] VITALS: BP 139/83; PULSE 65; RESP 19; TEMP 98.5; O2SAT 100
== END 2024-05-05 13:05 | disposition home or self-care (01) | DRG 699 ==
LOC: ER 16:06 → ERHOLD 16:13 → MED/SURG 18:48 → MED/SURG2 19:31
PROVIDERS: ADMIT Internal Medicine; ATTEND Internal Medicine
PROC: 0T25X0Z Change Drainage Device in Kidney, External Approach (ICD-10-PCS; principal; 2024-05-02)
PROC: 0T25X0Z Change Drainage Device in Kidney, External Approach (ICD-10-PCS; 2024-05-02)
DX: N99.528 Other complication of incontinent external stoma of urinary tract (principal); C79.9 Secondary malignant neoplasm of unspecified site; N13.6 Pyonephrosis; N82.1 Other female urinary-genital tract fistulae; Z16.24 Resistance to multiple antibiotics; C53.9 Malignant neoplasm of cervix uteri, unspecified; R31.9 Hematuria, unspecified; D64.9 Anemia, unspecified; G89.4 Chronic pain syndrome; N31.9 Neuromuscular dysfunction of bladder, unspecified; R32 Unspecified urinary incontinence; I10 Essential (primary) hypertension; F41.9 Anxiety disorder, unspecified; F32.A Depression, unspecified; E66.9 Obesity, unspecified; Z68.36 Body mass index [BMI] 36.0-36.9, adult; B95.2 Enterococcus as the cause of diseases classified elsewhere; Z88.0 Allergy status to penicillin; Z88.2 Allergy status to sulfonamides; Z88.8 Allergy status to other drugs, medicaments and biological substances
CPT/HCPCS: 36415; 50435; 74018; 74470; 80048; 80053; 81001; 85025; 85610; 87086; 87186; 94799; 99252; 99284; C1729; C1769; J0696; J1450; J2003; J2020; J2270; J2405; J7030; J7040; Q9967

== ENCOUNTER → 2024-08-25 | Outpatient (REF) | payer MEDICARE ==
[~2024-08-25] MED LIST changes: +CELEBREX100 MG PO; +FENTANYL CITRATE/PF 100MCG/2 ML INJ ONE; +IOPAMIDOL 370 MG/ML 100 ML INFUS..BTL INJ ONE; +LIDOCAINE HCL 1% 30ML-PF VIAL ONE; +SODIUM CHLORIDE 0.9% 500ML 500 ML ONE; +TYLENOL325 MG PO
== END ==
LOC: DX 11:45
PROVIDERS: ATTEND Urology
DX: N13.30 Unspecified hydronephrosis (principal)
CPT/HCPCS: 50435; J2003; J3010; J7040; Q9967

== ENCOUNTER 2024-10-02 11:45 | Inpatient (IN) | payer MEDICARE ==
[~2024-10-02] VITALS: Ht 152.4 cm; Wt 83.9 kg
[~2024-10-02 11:45] MED LIST changes: -FENTANYL CITRATE/PF 100MCG/2 ML INJ ONE; -IOPAMIDOL 370 MG/ML 100 ML INFUS..BTL INJ ONE; -LIDOCAINE HCL 1% 30ML-PF VIAL ONE; -SODIUM CHLORIDE 0.9% 500ML 500 ML ONE
[2024-10-02] MEDS ORDERED: CEFEPIME 2 GM in SODIUM CHLORIDE 0.9% 100 ML IV ONE (13:30)
[2024-10-02 13:54] LABS: BASOPHILS % 0.5 % (0.0-1.0); EOSINOPHILS % 1.0 % (0.0-6.0); LYMPHOCYTES % 18.5 % (18.0-39.1); MONOCYTES % 4.2 % (4.4-11.3); NEUTROPHILS % 75.6 % (38.7-80.0); RED CELL DISTRIBUTION WIDTH 14.4 % (11.7-14.4)
[2024-10-02 14:16] LABS: EST GLOMERULAR FILTRATION RATE 88.0 ML/MIN (>=60)
[2024-10-02 14:35] LABS: LEUKOCYTE ESTERASE ,URINE LARGE (NEGATIVE); PROTEIN,URINE DIPSTICK 1+ (NEGATIVE)
[2024-10-02 14:36] LABS: URINE UROBILINOGEN 0.2 mg/dL (0.2 - 1)
[2024-10-02 14:48] LABS: WBC,URINE (MAN) >50 /HPF (0-5)
[2024-10-02 15:35] LABS: LEUKOCYTE ESTERASE ,URINE NEGATIVE (NEGATIVE); PROTEIN,URINE DIPSTICK NEGATIVE (NEGATIVE); URINE UROBILINOGEN 0.2 mg/dL (0.2 - 1)
[2024-10-02] MEDS: Vancomycin IV 1 GM in SODIUM CHLORIDE 0.9% 250ML 250 ML IV ONE (16:23)
[2024-10-02] MEDS: SODIUM CHLORIDE 0.9% 1000ML 1,000 ML IV SCH (16:23)
[2024-10-02] MEDS: Morphine 4mg INJECTION 4 MG/ML INJ IV STA (16:24)
[2024-10-02] MEDS: ONDANSETRON HCL INJ 2MG/ML 2ML 2 MG/ML VIAL IV STA (16:24)
[2024-10-02] MEDS ORDERED: SODIUM CHLORIDE 0.9% 250ML 250 ML ONE (16:35)
[2024-10-02 16:41] VITALS: PULSE 64; RESP 18; TEMP 98.4
[2024-10-02 17:33] VITALS: BP 155/74; PULSE 69; RESP 18; TEMP 98.1; O2SAT 99
[2024-10-02 17:34] VITALS: BP 155/74; PULSE 69; RESP 18; TEMP 98.1; O2SAT 99
[2024-10-02 17:35] VITALS: BP 155/74; PULSE 69; RESP 18; TEMP 98.1; O2SAT 99
[2024-10-02 17:46] VITALS: BP 155/74; PULSE 69; RESP 18; TEMP 98.1; O2SAT 99
[2024-10-02 21:00] VITALS: BP 145/76; PULSE 76; RESP 18; TEMP 97.7; O2SAT 99
[2024-10-02] MEDS: ONDANSETRON HCL INJ 2MG/ML 2ML 2 MG/ML VIAL IV PRN (21:07)
[2024-10-02] MEDS: Morphine 4mg INJECTION 4 MG/ML INJ IV PRN (21:07)
[2024-10-02] MEDS ORDERED: HYDRALAZINE HCL 20 MG/ML VIAL IV PRN (22:45)
[2024-10-02] MEDS ORDERED: Morphine 4mg INJECTION 4 MG/ML INJ IV PRN (22:45)
[2024-10-02] MEDS ORDERED: ACETAMINOPHEN 325 MG TAB PO PRN (22:45)
[2024-10-03] VITALS (8 sets, daily range): BP systolic 106–135; BP diastolic 70–94; PULSE 62–71; RESP 17–19; TEMP 97.2–98.5; O2SAT 98–100
[2024-10-03] MEDS: Vancomycin IV 1 GM in SODIUM CHLORIDE 0.9% 250ML 250 ML IV SCH (02:09)
[2024-10-03] MEDS: HYDROCODONE/APAP 10MG-325MG TAB PO PRN (02:18)
[2024-10-03 07:14] LABS: BASOPHILS % 1.2 % (0.0-1.0); EOSINOPHILS % 2.8 % (0.0-6.0); LYMPHOCYTES % 42.7 % (18.0-39.1); MONOCYTES % 9.3 % (4.4-11.3); NEUTROPHILS % 43.8 % (38.7-80.0); RED CELL DISTRIBUTION WIDTH 14.2 % (11.7-14.4)
[2024-10-03 07:42] LABS: EST GLOMERULAR FILTRATION RATE 81.0 ML/MIN (>=60)
[2024-10-03] MEDS: BUSPIRONE HCL 10 MG TABLET PO SCH (08:34)
[2024-10-03] MEDS: AMLODIPINE BESYLATE 5 MG TAB PO SCH (08:34)
[2024-10-03] MEDS: CELECOXIB 100 MG CAP PO SCH (08:34)
[2024-10-04] VITALS (7 sets, daily range): BP systolic 124–142; BP diastolic 71–81; PULSE 57–72; RESP 18–20; TEMP 97.8–98.4; O2SAT 99–100
[2024-10-04] MEDS: LINEZOLID 600 MG TAB PO SCH (20:45)
[2024-10-05 08:28] VITALS: BP 139/80; PULSE 59; RESP 18; TEMP 98.4; O2SAT 100
[2024-10-05 09:03] VITALS: BP 139/80; PULSE 59; RESP 18; TEMP 98.4; O2SAT 100
== END 2024-10-05 10:47 | disposition home or self-care (01) | DRG 699 ==
LOC: ER 13:15 → ERHOLD 15:21 → MED/SURG3 17:07
PROVIDERS: ADMIT Internal Medicine; ATTEND Internal Medicine
DX: N99.521 Infection of incontinent external stoma of urinary tract (principal); N12 Tubulo-interstitial nephritis, not specified as acute or chronic; Z16.24 Resistance to multiple antibiotics; N13.6 Pyonephrosis; I10 Essential (primary) hypertension; F32.9 Major depressive disorder, single episode, unspecified; F41.9 Anxiety disorder, unspecified; M19.90 Unspecified osteoarthritis, unspecified site; B95.62 Methicillin resistant Staphylococcus aureus infection as the cause of diseases classified elsewhere; R31.0 Gross hematuria; B95.2 Enterococcus as the cause of diseases classified elsewhere; F41.8 Other specified anxiety disorders; Z88.1 Allergy status to other antibiotic agents; Z88.0 Allergy status to penicillin; Z88.2 Allergy status to sulfonamides; Z92.3 Personal history of irradiation; Z92.21 Personal history of antineoplastic chemotherapy; Z85.41 Personal history of malignant neoplasm of cervix uteri
CPT/HCPCS: 36415; 74176; 80053; 81001; 83735; 85025; 87086; 87186; 99284; J0692; J2270; J2405; J2470; J3373; J7030; J7050

== ENCOUNTER → 2024-11-10 | Outpatient (REF) | payer MEDICARE ==
[~2024-11-10] MED LIST changes: +FENTANYL CITRATE/PF 100MCG/2 ML INJ ONE
== END ==
LOC: DX 10:43
PROVIDERS: ATTEND Urology
DX: N13.30 Unspecified hydronephrosis (principal)
CPT/HCPCS: 50435; J3010